=== PATIENT | female | born 1965 | race Caucasian/White ===

== ENCOUNTER 2016-12-21 06:35 | Emergency (ER) | payer BC ==
[~2016-12-21] VITALS: Ht 165.1 cm; Wt 88.5 kg
[~2016-12-21 06:35] MED LIST: LACTCHW3 PO; LVNIS100 SQ; SUMA50TA15 PO; TRAM-10 PO; WARF5TAB90 PO; ZFRODT/8 SL
[2016-12-21 06:39] VITALS: TEMP 36.4; Ht 165.1 cm; Wt 88.5 kg
[2016-12-21 06:56] VITALS: O2SAT 97
[2016-12-21] MEDS ORDERED: ONDANSETRON INJ 2 MG/ML 2 ML VIAL IV STA (07:12)
[2016-12-21] MEDS ORDERED: KETOROLAC TROMETHAMINE 30 MG/ML VIAL IV STA (07:12)
--- NOTE | 2016-12-21 07:21 | DIAGNOSTIC IMAGING REPORT ---
SINGLE VIEW CHEST CLINICAL HISTORY: Fever. Sepsis. FINDINGS: An AP, portable, upright chest radiograph is compared to study dated 08/13/2016. Correlation is made with chest CT dated 06/08/2016. The cardiomediastinal silhouette is unremarkable. Chronic interstitial thickening is similar to previous. No airspace consolidation or large pleural effusion is identified. No pneumothorax is seen. The skeletal structures are osteopenic. Degenerative change and mild scoliosis is identified in the thoracic spine. IMPRESSION: No acute cardiopulmonary abnormality. Electronically signed by: Zander Humphrey M.D. 12/21/2016 7:18 AM Dictated Date/Time: 12/21/2016 7:17 AM
[2016-12-21 07:27] LABS: HEMATOCRIT 34.3 % (37-47); MEAN CELL VOLUME 84.9 fL (80-100); MEAN CORPUSCULAR HEMOGLOBIN 28.5 pg (25-34); MEAN CORPUSCULAR HGB CONC 33.5 g/dl (32-36); MEAN PLATELET VOLUME 9.1 fL (7.4-10.4); PLATELET COUNT 306 K/uL (130-400); RED BLOOD COUNT 4.04 M/uL (4.2-5.4); WHITE BLOOD COUNT 7.93 K/uL (4.8-10.8)
[2016-12-21 07:39] LABS: PROTHROMBIN TIME (PATIENT) 10.7 SECONDS (9.0-12.0)
[2016-12-21] MEDS ORDERED: BISA5TAB PO (07:41)
[2016-12-21 07:48] VITALS: O2SAT 97
[2016-12-21 07:54] LABS: ALT/SGPT 20 U/L (12-78); AST/SGOT 10 U/L (15-37); BLOOD UREA NITROGEN 6 mg/dl (7-18); CALCIUM 8.6 mg/dl (8.5-10.1); CARBON DIOXIDE 24 mmol/L (21-32); CHLORIDE 114 mmol/L (98-107); CREATININE 0.87 mg/dl (0.60-1.20); GLUCOSE 89 mg/dl (70-99); POTASSIUM 3.7 mmol/L (3.5-5.1); SODIUM 146 mmol/L (136-145)
[2016-12-21 08:21] LABS: BASO % 0.4 %; BASO ABS # 0.03 K/uL (0-0.2); COMPLETE YES; EOS % 1.1 %; IG% 0.1 %; LYMPH % 27.9 %; LYMPH ABS # 2.21 K/uL (1.2-3.4); MONO % 8.2 %; NEUT % 62.3 %
[2016-12-21 08:33] LABS: ALKALINE PHOSPHATASE 141 U/L (45-117)
[2016-12-21 09:31] VITALS: PULSE 65
--- NOTE | 2016-12-21 10:03 | EMERGENCY ROOM VISIT NOTE ---
History Report prepared by Leon: Karissa Santana Under the Supervision of: Dr. Angel Craig D.O. First contact with patient: 06:51 Chief Complaint: CHEST PAIN Stated Complaint: PAIN IN LEFT ARM TO CHEST Nursing Triage Summary: pt here with left sided chest pain that radiates into l arm since last pm. pt concerned because she has a hx of pulmonary embolisms History of Present Illness The patient is a 51 year old female who presents to the Emergency Room with complaints of worsening chest pain starting yesterday. She rates her discomfort as a 10/10 in severity. The patient has a history of pulmonary embolisms and states that her symptoms are similar to her previous experiences. Yesterday morning she developed a dry cough. Later in the day she started getting pain in her chest that radiated into her left arm and into her neck by the end of the day. Later in the evening the pain had worsened to the point where she could not move her arm. In the middle of the night, she woke up with SOB. The pain has begun to radiate into her leg now. She reports nausea and left arm swelling. She denies any heavy lifting. Her blood thinner was stopped by her doctor last week. Source of History: patient Onset: yesterday Position: chest Symptom Intensity: 10/10 Quality: other (pain) Timing: worsening Associated Symptoms: + SOB, + nausea, + neck pain Note: Pt reports arm pain, arm swelling, leg pain. Review of Systems See HPI for pertinent positives & negatives. A total of 10 systems reviewed and were otherwise negative. Past Medical & Surgical Medical Problems: (1) Clostridium difficile colitis (2) Depression (3) Edema (4) GERD (gastroesophageal reflux disease) (5) History diabetes mellitus (6) History of DVT (deep vein thrombosis) (7) History of pulmonary embolism (8) MINI (iron deficiency anemia) (9) Migraine headache (10) Psoriatic arthritis (11) Pulmonary embolism (12) Syncope Surgical Problems: (1) H/O wisdom tooth extraction (2) History of carpal tunnel surgery (3) Status post appendectomy (4) Status post cholecystectomy (5) Status post gastric bypass for obesity (6) Status post total knee replacement Family History FHx: rheumatoid arthritis MOTHER GRANDMOTHER Social History Smoking Status: Never Smoker Alcohol Use: none Drug Use: none Marital Status: Housing Status: lives with family Current/Historical Medications Scheduled Amitriptyline Hcl (Elavil), 10 MG PO HS Apremilast (Otezla), 1 TAB PO BID Bisacodyl (Correctol), 2 TABS PO BID Ergocalciferol (Vitamin D), 50,000 INTER.UNIT PO 2XWK Escitalopram Oxalate (Escitalopram Oxalate), 20 MG PO DAILY Hyoscyamine Sulfate (Levsin), 0.125 MG PO TID Levothyroxine Sodium (Levothyroxine Sodium), 25 MCG PO DAILY Pantoprazole (Pantoprazole Sodium), 40 MG PO BID Topiramate (Topiramate), 75 MG PO BID Trazodone Hcl (Trazodone), 50 MG PO HS Warfarin Sodium (Coumadin), 2.5 MG PO M-W- Warfarin Sodium (Coumadin), 5 MG PO 4XWK Scheduled PRN Albuterol Hfa (Ventolin Hfa), 2-4 PUFFS INH Q6H PRN for Shortness of Breath Ondansetron (Ondansetron Odt), 8 MG SL Q8 PRN for Nausea Promethazine HCl (Promethazine HCl), 25 MG PO Q8 PRN for Nausea or Vomiting Sumatriptan Succinate (Imitrex), 50 MG PO UD PRN for Migraine Allergies Coded Allergies: Acetaminophen (Verified Allergy, Severe, HIVES, 12/21/16) Oxycodone (Verified Allergy, Severe, HIVES, 12/21/16) Vancomycin (Verified Adverse Reaction, Unknown, SEE TEXT. . ., 12/21/16) PT STARTED IV VANC TODAY FOR POSSIBLE OSTEOMYELITIS OF RIGHT FOOT. ALSO ON TIMENTIN 3.1G IV Q6H FROM 03/24/08. PHARM'KINETIC VANC CONSULT PATIENT ORDERED VANC 3G IV Q18H IN 560ML TOTAL VOLUME NSS (~5.3MG/ML). AFTER RECEIVING 136ML PT DEVELOPED BODY ITCHING (NO RASH/REDNESS). KAY TEJADA RN CONTACTED DR BANEGAS AND INSTRUCTED TO D/C VANC AND GIVE BENADRYL 50MG PO X1. 03/27/08 @ 1000: SPOKE WITH DR RUIZ: FEELS THIS IS AN INFUSION RELATED RXN BUT CLINICALLY PT IS DOING WORSE AND IS D/C TIMENTIN/VANC AND STARTING TYGACIL. IS THIS AN INFUSION RELATED RXN OR TRUE ALLERGY? I PUT CALL INTO DR BANEGAS TO FURTHER DISCUSS. NO CALL BACK OF TIME OF DOCUMENTATION. AJ Physical Exam Vital Signs Date Time Temp Pulse Resp B/P Pulse Ox O2 Delivery O2 Flow Rate FiO2 12/21/16 10:30 133/82 12/21/16 09:31 65 18 115/80 12/21/16 07:48 72 18 134/86 97 Room Air 12/21/16 06:56 74 12/21/16 06:56 97 Room Air 12/21/16 06:39 36.4 81 16 138/88 97 Room Air Physical Exam CONSTITUTIONAL/VITAL SIGNS: Reviewed / noted above. GENERAL: Non-toxic in appearance. INTEGUMENTARY: Warm, dry, and [place]. HEAD: Normocephalic. EYES: without scleral icterus or trauma. ENT/OROPHARYNX: clear and moist. LYMPHADENOPATHY/NECK: Is supple without lymphadenopathy or meningismus. RESPIRATORY: Lungs clear and equal. CARDIOVASCULAR: Regular rate and rhythm. GI/ABDOMEN: Soft and nontender. No organomegaly or pulsatile mass. No rebound or guarding. Normal bowel sounds. EXTREMITIES: Warm and well perfused. BACK: No CVA tenderness. NEUROLOGICAL: Intact without focal deficits. PSYCHIATRIC: normal affect. MUSCULOSKELETAL: Normally developed with good muscle tone. Medical Decision & Procedures ER Provider Diagnostic Interpretation: X ray results and stated below per my interpretation and radiology interpretation. SINGLE VIEW CHEST CLINICAL HISTORY: Fever. Sepsis. FINDINGS: An AP, portable, upright chest radiograph is compared to study dated 08/13/2016. Correlation is made with chest CT dated 06/08/2016. The cardiomediastinal silhouette is unremarkable. Chronic interstitial thickening is similar to previous. No airspace consolidation or large pleural effusion is identified. No pneumothorax is seen. The skeletal structures are osteopenic. Degenerative change and mild scoliosis is identified in the thoracic spine. IMPRESSION: No acute cardiopulmonary abnormality. Electronically signed by: Zander Humphrey M.D. 12/21/2016 7:18 AM Dictated Date/Time: 12/21/2016 7:17 AM Laboratory Results 12/21/16 06:50 Red Blood Count 4.04, Mean Corpuscular Volume 84.9, Mean Corpuscular Hemoglobin 28.5, Mean Corpuscular Hemoglobin Concent 33.5, Mean Platelet Volume 9.1, Neutrophils (%) (Auto) 62.3, Lymphocytes (%) (Auto) 27.9, Monocytes (%) (Auto) 8.2, Eosinophils (%) (Auto) 1.1, Basophils (%) (Auto) 0.4, Neutrophils # (Auto) 4.94, Lymphocytes # (Auto) 2.21, Monocytes # (Auto) 0.65, Eosinophils # (Auto) 0.09, Basophils # (Auto) 0.03 12/21/16 06:50 Test 12/21/16 06:50 White Blood Count 7.93 K/uL (4.8-10.8) Red Blood Count 4.04 M/uL (4.2-5.4) Hemoglobin 11.5 g/dL (12.0-16.0) Hematocrit 34.3 % (37-47) Mean Corpuscular Volume 84.9 fL (80-100) Mean Corpuscular Hemoglobin 28.5 pg (25-34) Mean Corpuscular Hemoglobin Concent 33.5 g/dl (32-36) Platelet Count 306 K/uL (130-400) Mean Platelet Volume 9.1 fL (7.4-10.4) Neutrophils (%) (Auto) 62.3 % Lymphocytes (%) (Auto) 27.9 % Monocytes (%) (Auto) 8.2 % Eosinophils (%) (Auto) 1.1 % Basophils (%) (Auto) 0.4 % Neutrophils # (Auto) 4.94 K/uL (1.4-6.5) Lymphocytes # (Auto) 2.21 K/uL (1.2-3.4) Monocytes # (Auto) 0.65 K/uL (0.11-0.59) Eosinophils # (Auto) 0.09 K/uL (0-0.5) Basophils # (Auto) 0.03 K/uL (0-0.2) RDW Standard Deviation 47.9 fL (36.4-46.3) RDW Coefficient of Variation 15.4 % (11.5-14.5) Immature Granulocyte % (Auto) 0.1 % Immature Granulocyte # (Auto) 0.01 K/uL (0.00-0.02) Red Blood Cell Morphology Unremarkable Prothrombin Time 10.7 SECONDS (9.0-12.0) Prothromb Time International Ratio 1.0 (0.9-1.1) Activated Partial Thromboplast Time 26.1 SECONDS (21.0-31.0) Partial Thromboplastin Ratio 1.0 D-Dimer 330 ug/L FEU (0-500) Anion Gap 8.0 mmol/L (3-11) Est Creatinine Clear Calc Drug Dose 82.2 ml/min Estimated GFR () 88.2 Estimated GFR (Non- 76.1 BUN/Creatinine Ratio 7.0 (10-20) Calcium Level 8.6 mg/dl (8.5-10.1) Total Bilirubin 0.4 mg/dl (0.2-1) Direct Bilirubin < 0.1 mg/dl (0-0.2) Aspartate Amino Transf (AST/SGOT) 10 U/L (15-37) Alanine Aminotransferase (ALT/SGPT) 20 U/L (12-78) Alkaline Phosphatase 141 U/L (45-117) Total Creatine Kinase 61 U/L (26-192) Creatine Kinase MB 0.6 ng/ml (0.5-3.6) Creatine Kinase MB Ratio 1.0 (0-3.0) Troponin I < 0.015 ng/ml (0-0.045) Total Protein 6.6 gm/dl (6.4-8.2) Albumin 3.5 gm/dl (3.4-5.0) Lipase 69 U/L (73-393) Laboratory results as stated above per my review. Medications Administered Medications (Trade) Dose Ordered Sig/Monalisa Route Start Time Stop Time Status Last Admin Dose Admin Ketorolac Tromethamine (Toradol Inj) 30 mg NOW STAT IV 12/21/16 07:12 12/21/16 07:13 DC 12/21/16 07:43 30 MG Ondansetron HCl (Zofran Inj) 4 mg NOW STAT IV 12/21/16 07:12 12/21/16 07:13 DC 12/21/16 07:38 4 MG ECG Indication: chest pain Rate (beats per minute): 65 Rhythm: normal sinus Findings: no ectopy, other (no acute injury) ED Course 07: Previous medical records were reviewed. The patient was evaluated in room B9. A complete history and physical examination was performed. 0712: Toradol Inj 30 mg IV, Zofran Inj 4 mg IV. 1005: On reevaluation, the patient is resting comfortably. I discussed the results and findings with the patient. She verbalized agreement of the treatment plan. She was discharged home. Medical Decision the differential was considered includes acute myocardial infarction, acute coronary syndrome, myocarditis, pericarditis, pericardial effusions /tamponad, esophageal perforation, thoracic aortic dissection, pulmonary embolism, pneumonia, pneumothorax, pancreatitis, shingles, acute cholecystitis, perforated abdominal viscus. This is a 51-year-old female who presents to the ED with a chief complaint of chest pain and left arm pain. The patient's symptoms started yesterday around noon. She developed left-sided chest pain. She states that her symptoms seem to worsen overnight. This morning she also felt like her left arm was hurting and then her left leg. The patient's vital signs here are normal. Her physical exam did not show any abnormalities. There is no asymmetry of the extremities. She has good distal pulses. Her lungs are clear. She is in no distress. Twelve-lead EKG shows a normal sinus rhythm at a rate of 65 without acute injury or ectopy. CBC is normal. D-dimer is negative. Metabolic panel was unremarkable. Lipase is negative. Troponin is negative. The patient was told results the test. The patient is felt to be stable for discharge and outpatient follow-up. Impression Primary Impression: Substernal precordial chest pain Additional Impressions: Left arm pain Left leg pain Scribe Attestation The scribe's documentation has been prepared under my direction and personally reviewed by me in its entirety. I confirm that the note above accurately reflects all work, treatment, procedures, and medical decision making performed by me. Departure Information Dispostion Home / Self-Care Referrals Shell Pinon M.D. (PCP) Patient Instructions My [facility] Additional Instructions Your testing today did not reveal a serious cause for your symptoms. Follow-up with your doctor for further care and evaluation in 1-2 days. Return to the emergency department for worsening or new symptoms or any concerns. You have been examined and treated today on an emergency basis only. This is not a substitute for, or an effort to provide, complete comprehensive medical care. It is impossible to recognize and treat all injuries or illnesses in a single emergency department visit. It is therefore important that you follow up closely with your doctor. Call as soon as possible for an appointment. Problem Qualifiers
[2016-12-21 10:30] VITALS: BP 133/82
[2017-01-04] MEDS ORDERED: VTMD PO (21:36)
[2017-01-04] MEDS ORDERED: ONDA4TAB46 PO (21:37)
[2017-02-21] MEDS ORDERED: VNTHFA/IN INH (13:51)
[2017-04-29] MEDS ORDERED: APRE1TAB3 PO (07:41)
[2017-04-29] MEDS ORDERED: AMIT10TA6 PO ×2 (16:46→19:32)
[2017-04-29] MEDS ORDERED: PANT40TA2 PO (17:34)
[2017-04-29] MEDS ORDERED: ERGO500011 PO (19:19)
[2017-05-04] MEDS ORDERED: TPM100 PO (15:06)
[2017-05-04] MEDS ORDERED: PRED10TA PO (15:06)
[2017-05-17] MEDS ORDERED: AMIT10TA6 PO (12:05)
[2017-05-17] MEDS ORDERED: NCY50 PO (12:05)
[2017-05-17] MEDS ORDERED: CYM30 PO (12:05)
[2017-05-17] MEDS ORDERED: ONDA8TAB62 SL (12:05)
[2017-05-24] MEDS ORDERED: MAGN400T7 PO (14:42)
== END 2016-12-21 10:40 | disposition home or self-care (01) ==
LOC: C.EDB 06:36
DX: R07.2 Precordial pain (principal); M79.602 Pain in left arm; M79.605 Pain in left leg; R05 Cough; R06.02 Shortness of breath; R11.0 Nausea; M54.2 Cervicalgia; M79.89 Other specified soft tissue disorders; L40.50 Arthropathic psoriasis, unspecified; F32.9 Major depressive disorder, single episode, unspecified; K21.9 Gastro-esophageal reflux disease without esophagitis; E11.9 Type 2 diabetes mellitus without complications; Z79.01 Long term (current) use of anticoagulants; Z79.899 Other long term (current) drug therapy; Z86.711 Personal history of pulmonary embolism; Z86.718 Personal history of other venous thrombosis and embolism; Z86.19 Personal history of other infectious and parasitic diseases; Z82.61 Family history of arthritis

== ENCOUNTER 2017-01-29 12:22 | Emergency (ER) | payer BC ==
[~2017-01-29] VITALS: Ht 165.1 cm; Wt 86.5 kg
[~2017-01-29 12:22] MED LIST changes: -LACTCHW3 PO; -LVNIS100 SQ; +ONDA4TAB46 PO; -SUMA50TA15 PO; -TRAM-10 PO; +VTMD PO; -WARF5TAB90 PO; -ZFRODT/8 SL
[2017-01-29 12:30] VITALS: TEMP 36.8; Ht 165.1 cm; Wt 86.5 kg
[2017-01-29] MEDS ORDERED: ERGO500037 PO (13:16)
[2017-01-29] MEDS ORDERED: MoRPHine SULFATE 10 MG/ML CARP/VIAL IV STA (13:26)
[2017-01-29] MEDS ORDERED: PROMETHAZINE HCL INJ 25 MG/ML 1 ML VIAL IV STA (13:26)
[2017-01-29] MEDS ORDERED: KETOROLAC TROMETHAMINE 30 MG/ML VIAL IV STA (13:26)
[2017-01-29] MEDS ORDERED: SODIUM CHLORIDE 0.9% 1000ML 1,000 ML IV STA (13:26)
[2017-01-29 13:56] LABS: HEMATOCRIT 34.2 % (37-47); MEAN CELL VOLUME 86.1 fL (80-100); MEAN CORPUSCULAR HEMOGLOBIN 28.2 pg (25-34); MEAN CORPUSCULAR HGB CONC 32.7 g/dl (32-36); MEAN PLATELET VOLUME 9.1 fL (7.4-10.4); PLATELET COUNT 287 K/uL (130-400); RED BLOOD COUNT 3.97 M/uL (4.2-5.4); WHITE BLOOD COUNT 8.12 K/uL (4.8-10.8)
[2017-01-29] MEDS ORDERED: PROMETHAZINE HCL INJ 25 MG in SODIUM CHLORIDE 0.9% 50ML 50 ML IV ONE (14:00)
[2017-01-29 14:17] LABS: BUN/CREATININE RATIO 10.3 (10-20); CREATININE 0.74 mg/dl (0.60-1.20); POTASSIUM 3.1 mmol/L (3.5-5.1)
[2017-01-29 14:18] LABS: BASO % 0.4 %; BASO ABS # 0.03 K/uL (0-0.2); COMPLETE YES; EOS % 1.1 %; IG% 0.1 %; LYMPH % 19.3 %; LYMPH ABS # 1.57 K/uL (1.2-3.4); MONO % 7.9 %; NEUT % 71.2 %
[2017-01-29 14:27] LABS: THYROID STIMULATING HORMONE 0.871 uIu/ml (0.300-4.500)
[2017-01-29] MEDS ORDERED: POTASSIUM CHLORIDE 10 MEQ TABCR PO STA (14:28)
[2017-01-29] MEDS ORDERED: HYDROmorphone INJ 1 MG/ML SYR IV STA (14:30)
[2017-01-29 14:44] LABS: CALCIUM 8.2 mg/dl (8.5-10.1)
[2017-01-29] MEDS ORDERED: OPTIRAY 320 IV PRN (14:45)
--- NOTE | 2017-01-29 15:05 | DIAGNOSTIC IMAGING REPORT ---
CT SOFT TISSUE NECK COMBO CT DOSE: 929.83 mGy.cm CLINICAL HISTORY: Lump superior to medial clavicle on right. TECHNIQUE: Axial images of the neck were obtained before and after intravenous administration of Optiray 320 IV. COMPARISON STUDY: Neck CT October 08, 2015. FINDINGS: A marker was placed on the skin at site of palpable abnormality, superior to the right sternoclavicular joint. No corresponding mass is identified. There is no fluid collection. No enlarged cervical lymph nodes are noted. Major vasculature of the neck is patent. The parotid, submandibular and thyroid glands are within normal limits by CT. No mucosal lesion is identified although these may be occult by CT. The epiglottis is normal. Skeletal structures are unremarkable. Visualized portions of the brain are within normal limits. IMPRESSION: 1. No cervical mass or lymphadenopathy. The palpable marker overlies the superior aspect of the right sternoclavicular joint which appears similar to prior imaging studies. 2. No acute process within the neck by CT. Electronically signed by: Yang Hansen M.D. 01/29/2017 3:03 PM Dictated Date/Time: 01/29/2017 2:57 PM
--- NOTE | 2017-01-29 15:41 | EMERGENCY ROOM VISIT NOTE ---
History First contact with patient: 13:16 Chief Complaint: NECK PAIN Stated Complaint: NECK/THROAT/SHOULDER PAIN, DIZZY, HARRIS, V,N History of Present Illness The patient is a 51 year old female who presents to the Emergency Room with complaints of a painful lump on the anterior aspect of her neck. The patient states that she noticed it 4-5 days ago and it is getting larger and more painful. The patient denies any associated redness or any injury to the area. The patient states yesterday she also had a sore throat mainly on the right side of her throat. Then later in the evening she started getting pain on the entire right side of her neck into her right shoulder. This then triggered a migraine headache which she describes as being all over her head which is typical for her migraines. She states she gets pain behind both her eyes but denies any visual changes and admits to mild dizziness. The patient states that she took an Imitrex tablet last night and this morning without any relief of her headache. The patient states this is not the worst headache of her life. The patient states that she was at work today and started feeling nauseated and had increased pain in her neck and therefore came to the emergency room. The patient does admit to a history of hypothyroidism but has never had thyroid surgery. She also states that she is being treated currently for low iron. She is receiving IV iron treatments. Review of Systems 10 system review was performed and was negative unless stated otherwise history of present illness. Past Medical/Surgical History Medical Problems: (1) Clostridium difficile colitis (2) Depression (3) Edema (4) GERD (gastroesophageal reflux disease) (5) History diabetes mellitus (6) History of DVT (deep vein thrombosis) (7) History of pulmonary embolism (8) MINI (iron deficiency anemia) (9) Migraine headache (10) Psoriatic arthritis (11) Pulmonary embolism (12) Syncope Surgical Problems: (1) H/O wisdom tooth extraction (2) History of carpal tunnel surgery (3) Status post appendectomy (4) Status post cholecystectomy (5) Status post gastric bypass for obesity (6) Status post total knee replacement Family History FHx: rheumatoid arthritis MOTHER GRANDMOTHER Social History Smoking Status: Never Smoker Alcohol Use: none Drug Use: none Marital Status: Housing Status: lives with family Current/Historical Medications Scheduled Amitriptyline Hcl (Elavil), 10 MG PO HS Apremilast (Otezla), 30 MG PO BID Ergocalciferol (Vitamin D 97106 Unit), 50,000 UNIT PO 2XWK Escitalopram Oxalate (Escitalopram Oxalate), 20 MG PO DAILY Hyoscyamine Sulfate (Levsin), 0.125 MG PO TID Levothyroxine Sodium (Levothyroxine Sodium), 25 MCG PO DAILY Pantoprazole (Pantoprazole Sodium), 40 MG PO BID Topiramate (Topiramate), 75 MG PO BID Trazodone Hcl (Trazodone), 50-100 MG PO HS Scheduled PRN Albuterol Hfa (Ventolin Hfa), 2-4 PUFFS INH Q6H PRN for Shortness of Breath Ondansetron Hcl (Zofran), 4 MG PO TID PRN for Nausea Ondansetron Odt (Zofran Odt), 8 MG SL Q8 PRN for Nausea Promethazine HCl (Promethazine HCl), 25 MG PO Q8 PRN for Nausea or Vomiting Sumatriptan Succinate (Sumatriptan Succinate), 50 MG PO UD PRN for Migraine Allergies Coded Allergies: Acetaminophen (Verified Allergy, Severe, HIVES, 01/29/17) Oxycodone (Verified Allergy, Severe, HIVES, 01/29/17) Vancomycin (Verified Adverse Reaction, Unknown, SEE TEXT. . ., 01/29/17) PT STARTED IV VANC TODAY FOR POSSIBLE OSTEOMYELITIS OF RIGHT FOOT. ALSO ON TIMENTIN 3.1G IV Q6H FROM 03/24/08. PHARM'KINETIC VANC CONSULT PATIENT ORDERED VANC 3G IV Q18H IN 560ML TOTAL VOLUME NSS (~5.3MG/ML). AFTER RECEIVING 136ML PT DEVELOPED BODY ITCHING (NO RASH/REDNESS). KAY TEJADARN CONTACTED DR BANEGAS AND INSTRUCTED TO D/C VANC AND GIVE BENADRYL 50MG PO X1. 03/27/08 @ 1000: SPOKE WITH DR RUIZ: FEELS THIS IS AN INFUSION RELATED RXN BUT CLINICALLY PT IS DOING WORSE AND IS D/C TIMENTIN/VANC AND STARTING TYGACIL. IS THIS AN INFUSION RELATED RXN OR TRUE ALLERGY? I PUT CALL INTO DR BANEGAS TO FURTHER DISCUSS. NO CALL BACK OF TIME OF DOCUMENTATION. AJ Physical Exam Vital Signs Date Time Temp Pulse Resp B/P Pulse Ox O2 Delivery O2 Flow Rate FiO2 01/29/17 14:57 78 18 117/72 92 Room Air 01/29/17 13:55 72 18 130/82 96 Room Air 01/29/17 12:30 36.8 80 20 124/79 96 Room Air Physical Exam GENERAL: 51-year-old white female appears in no acute distress. MENTAL Status: Patient is alert and oriented 3. The patient appears very anxious. EYES: PERRLA. EOMs intact. EARS: Canals clear. TMs without fluid level noted. PHARYNX: Mild erythema noted, no edema noted. Airway is adequate. No exudate noted. NECK: Thyroid without enlargement or nodularity. There is a palpable firm lump just superior to the medial aspect of the clavicle which is tender to palpation. No other lymphadenopathy is noted. LUNGS: Clear auscultation without wheezes rales or rhonchi. CARDIAC: Regular rate and rhythm without murmur. Pulses is full and equal throughout. ABDOMEN: Positive bowel sounds all 4 quadrants. Soft, nontender to palpation without organomegaly or masses. NEURO:Cranial nerves two through 12 intact. Cerebellar function intact with [id number]. Fine motor intact with alternating finger motions. Medical Decision & Procedures ER Provider Diagnostic Interpretation: CT SOFT TISSUE NECK COMBO CT DOSE: 929.83 mGy.cm CLINICAL HISTORY: Lump superior to medial clavicle on right. TECHNIQUE: Axial images of the neck were obtained before and after intravenous administration of Optiray 320 IV. COMPARISON STUDY: Neck CT October 08, 2015. FINDINGS: A marker was placed on the skin at site of palpable abnormality, superior to the right sternoclavicular joint. No corresponding mass is identified. There is no fluid collection. No enlarged cervical lymph nodes are noted. Major vasculature of the neck is patent. The parotid, submandibular and thyroid glands are within normal limits by CT. No mucosal lesion is identified although these may be occult by CT. The epiglottis is normal. Skeletal structures are unremarkable. Visualized portions of the brain are within normal limits. IMPRESSION: 1. No cervical mass or lymphadenopathy. The palpable marker overlies the superior aspect of the right sternoclavicular joint which appears similar to prior imaging studies. Laboratory Results 01/29/17 13:40 Red Blood Count 3.97, Mean Corpuscular Volume 86.1, Mean Corpuscular Hemoglobin 28.2, Mean Corpuscular Hemoglobin Concent 32.7, Mean Platelet Volume 9.1, Neutrophils (%) (Auto) 71.2, Lymphocytes (%) (Auto) 19.3, Monocytes (%) (Auto) 7.9, Eosinophils (%) (Auto) 1.1, Basophils (%) (Auto) 0.4, Neutrophils # (Auto) 5.78, Lymphocytes # (Auto) 1.57, Monocytes # (Auto) 0.64, Eosinophils # (Auto) 0.09, Basophils # (Auto) 0.03 01/29/17 13:40 Test 01/29/17 13:40 White Blood Count 8.12 K/uL (4.8-10.8) Red Blood Count 3.97 M/uL (4.2-5.4) Hemoglobin 11.2 g/dL (12.0-16.0) Hematocrit 34.2 % (37-47) Mean Corpuscular Volume 86.1 fL (80-100) Mean Corpuscular Hemoglobin 28.2 pg (25-34) Mean Corpuscular Hemoglobin Concent 32.7 g/dl (32-36) Platelet Count 287 K/uL (130-400) Mean Platelet Volume 9.1 fL (7.4-10.4) Neutrophils (%) (Auto) 71.2 % Lymphocytes (%) (Auto) 19.3 % Monocytes (%) (Auto) 7.9 % Eosinophils (%) (Auto) 1.1 % Basophils (%) (Auto) 0.4 % Neutrophils # (Auto) 5.78 K/uL (1.4-6.5) Lymphocytes # (Auto) 1.57 K/uL (1.2-3.4) Monocytes # (Auto) 0.64 K/uL (0.11-0.59) Eosinophils # (Auto) 0.09 K/uL (0-0.5) Basophils # (Auto) 0.03 K/uL (0-0.2) RDW Standard Deviation 48.9 fL (36.4-46.3) RDW Coefficient of Variation 15.4 % (11.5-14.5) Immature Granulocyte % (Auto) 0.1 % Immature Granulocyte # (Auto) 0.01 K/uL (0.00-0.02) Anion Gap 10.0 mmol/L (3-11) Est Creatinine Clear Calc Drug Dose 95.5 ml/min Estimated GFR () 107.2 Estimated GFR (Non- 92.5 BUN/Creatinine Ratio 10.3 (10-20) Calcium Level 8.2 mg/dl (8.5-10.1) Thyroid Stimulating Hormone (TSH) 0.871 uIu/ml (0.300-4.500) Medications Administered Medications (Trade) Dose Ordered Sig/Monalisa Route Start Time Stop Time Status Last Admin Dose Admin Sodium Chloride (Nss 1000ml) 1,000 ml @ 999 mls/hr Q1H1M STAT IV 01/29/17 13:26 01/29/17 14:26 DC 01/29/17 13:41 999 MLS/HR Morphine Sulfate (MoRPHine SULFATE INJ) 6 mg NOW STAT IV 01/29/17 13:26 01/29/17 13:30 DC 01/29/17 13:26 6 MG Ketorolac Tromethamine 30 mg 30 mg NOW STAT IV 01/29/17 13:26 01/29/17 13:30 DC 01/29/17 13:40 30 MG Promethazine HCl/ Sodium Chloride (Phenergan Inj/ Nss 50ml) 51 ml @ 204 mls/hr NOW ONCE IV 01/29/17 14:00 01/29/17 14:14 DC 01/29/17 13:55 204 MLS/HR Potassium Chloride (Klor-Con M10) 10 meq NOW STAT PO 01/29/17 14:28 01/29/17 14:29 DC 01/29/17 14:58 10 MEQ Hydromorphone HCl (Dilaudid Inj) 1 mg NOW STAT IV 01/29/17 14:30 01/29/17 14:31 DC 01/29/17 15:00 1 MG ED Course The patient was evaluated. The patient's EMR and medication list were reviewed. IV access was obtained. The patient was given morphine 6 mg IV and Phenergan 25 mg IV for her headache and nausea. CBC and differential, renal profile was ordered. Coags were ordered. TSH was ordered. Rapid strep was. CAT scan of the neck was ordered and evaluated by the radiologist as above without any acute findings. The patient was informed of the CT findings. Labs are reviewed. The patient's white count was normal. The patient's potassium, he hemoglobin and hematocrit were slightly low. The patient was given 10 mEq of KDur. The patient was reevaluated and stated her headache was not any better therefore she was given Dilaudid 1 mg IV. The patient was reevaluated and was feeling better. The patient was discharged home in stable condition with a friend driving. Medical Decision Neck differential include osteosarcoma, enlarged lymph nodes, soft tissue mass, thyroid mass, muscular strain, arthritic pain The patient had her typical migraine headache symptoms therefore no additional imaging was performed for her headache. Impression Primary Impression: Migraine headache Additional Impressions: Lump in neck Anemia Hypokalemia Departure Information Dispostion Home / Self-Care Condition GOOD Referrals Shell Pinon M.D. (PCP) Forms HOME CARE DOCUMENTATION FORM, IMPORTANT VISIT INFORMATION, WORK / SCHOOL INSTRUCTIONS Patient Instructions Anemia, ED Headache Migraine, My [facility] Additional Instructions Recommend eating a banana daily for your low potassium. Continue current migraine medicine as prescribed. Follow-up with your family doctor in 2 days for recheck. If symptoms worsen in the interim, return to ER. Problem Qualifiers Primary Impression: Migraine headache Migraine type: unspecified Intractability: not intractable Additional Impressions: Anemia Anemia type: iron deficiency Iron deficiency anemia type: unspecified iron deficiency Qualified Codes: D50.9 - Iron deficiency anemia, unspecified
[2017-01-29 15:51] VITALS: BP 121/80; PULSE 79; O2SAT 95
[2017-02-21] MEDS ORDERED: VNTHFA/IN INH (13:51)
[2017-04-29] MEDS ORDERED: APRE1TAB3 PO (07:41)
[2017-04-29] MEDS ORDERED: AMIT10TA6 PO ×2 (16:46→19:32)
[2017-04-29] MEDS ORDERED: PANT40TA2 PO (17:34)
[2017-04-29] MEDS ORDERED: ERGO500011 PO (19:19)
[2017-05-04] MEDS ORDERED: TPM100 PO (15:06)
[2017-05-04] MEDS ORDERED: PRED10TA PO (15:06)
[2017-05-17] MEDS ORDERED: NCY50 PO (12:05)
[2017-05-17] MEDS ORDERED: ONDA8TAB62 SL (12:05)
[2017-05-17] MEDS ORDERED: AMIT10TA6 PO (12:05)
[2017-05-17] MEDS ORDERED: CYM30 PO (12:05)
[2017-05-24] MEDS ORDERED: MAGN400T7 PO (14:42)
== END 2017-01-29 15:55 | disposition home or self-care (01) ==
LOC: C.EDB 12:27 → C.EDC 15:55
DX: G43.909 Migraine, unspecified, not intractable, without status migrainosus (principal); R22.1 Localized swelling, mass and lump, neck; D50.9 Iron deficiency anemia, unspecified; E87.6 Hypokalemia; F33.41 Major depressive disorder, recurrent, in partial remission; K21.9 Gastro-esophageal reflux disease without esophagitis; E11.9 Type 2 diabetes mellitus without complications; Z86.711 Personal history of pulmonary embolism; L40.50 Arthropathic psoriasis, unspecified

== ENCOUNTER 2017-02-21 16:55 | Emergency (ER) | payer BC ==
[~2017-02-21] VITALS: Ht 165.1 cm; Wt 85.7 kg
[~2017-02-21 16:55] MED LIST changes: +ERGO500037 PO; +VNTHFA/IN INH; -VTMD PO
[2017-02-21 17:04] VITALS: TEMP 36.7; Ht 165.1 cm; Wt 85.7 kg
[2017-02-21] MEDS ORDERED: PROMETHAZINE HCL INJ 25 MG in SODIUM CHLORIDE 0.9% 50ML 50 ML IV STA (18:32)
[2017-02-21] MEDS ORDERED: DiphenhydrAMINE HCL 50 MG/ML VIAL IV STA (18:32)
[2017-02-21] MEDS ORDERED: SODIUM CHLORIDE 0.9% 1000ML 1,000 ML IV STA (18:32)
[2017-02-21] MEDS ORDERED: OPTIRAY 320 IV PRN (18:45)
[2017-02-21 19:02] LABS: BASO % 0.3 %; BASO ABS # 0.02 K/uL (0-0.2); COMPLETE YES; EOS % 1.3 %; HEMATOCRIT 37.9 % (37-47); IG% 0.1 %; LYMPH % 35.2 %; LYMPH ABS # 2.52 K/uL (1.2-3.4); MEAN CELL VOLUME 88.1 fL (80-100); MEAN CORPUSCULAR HEMOGLOBIN 29.3 pg (25-34); MEAN CORPUSCULAR HGB CONC 33.2 g/dl (32-36); MEAN PLATELET VOLUME 8.9 fL (7.4-10.4); NEUT % 55.1 %; PLATELET COUNT 283 K/uL (130-400); WHITE BLOOD COUNT 7.16 K/uL (4.8-10.8)
[2017-02-21 19:09] LABS: URINE APPEARANCE CLEAR (CLEAR); URINE BILIRUBIN NEG (NEG); URINE COLOR YELLOW; URINE EPITHELIAL CELL AUTO >30 /lpf (0-5); URINE NITRITE NEG (NEG); URINE SPECIFIC GRAVITY 1.018 (1.000-1.030); UROBILINOGEN NEG (NEG); ZZUR CULT IF INDIC CLEAN CATCH YES
[2017-02-21 19:13] LABS: MANUAL MICROSCOPIC REQUIRED? NO; REVIEW REQ? NO
[2017-02-21] MEDS ORDERED: ONDA4TAB9 PO (19:19)
[2017-02-21 19:26] LABS: ALT/SGPT 19 U/L (12-78); AST/SGOT 10 U/L (15-37); BLOOD UREA NITROGEN 8 mg/dl (7-18); BUN/CREATININE RATIO 9.8 (10-20); CALCIUM 8.4 mg/dl (8.5-10.1); CARBON DIOXIDE 23 mmol/L (21-32); CHLORIDE 114 mmol/L (98-107); CREATININE 0.83 mg/dl (0.60-1.20); GLUCOSE 95 mg/dl (70-99); MAGNESIUM 2.3 mg/dl (1.8-2.4); POTASSIUM 3.9 mmol/L (3.5-5.1); SODIUM 145 mmol/L (136-145)
[2017-02-21 19:29] LABS: ALKALINE PHOSPHATASE 147 U/L (45-117); CKMB/CK RATIO 2.1 (0-3.0); PHOSPHORUS 2.8 mg/dl (2.5-4.9)
--- NOTE | 2017-02-21 20:38 | DIAGNOSTIC IMAGING REPORT ---
CHEST CTA for PULMONARY ARTERIES CT DOSE: 1065.51 mGy.cm HISTORY: Chest pain dyspnea TECHNIQUE: Multiaxial CT images of the chest were performed following the intravenous administration of contrast to evaluate the pulmonary arteries. Maximal intensity projection images were also obtained. COMPARISON STUDY: None. FINDINGS: There is a normal caliber thoracic aorta with no evidence for dissection. There is no evidence for pulmonary embolus. No pleural effusions. No pneumothorax. The liver and spleen are unremarkable. No mediastinal or hilar lymphadenopathy. The central airways are patent. The lungs are clear. IMPRESSION: No evidence for pulmonary embolus. Lungs are clear. Negative thoracic aorta Electronically signed by: Collins Armando M.D. 02/21/2017 8:37 PM Dictated Date/Time: 02/21/2017 8:35 PM
--- NOTE | 2017-02-21 20:44 | DIAGNOSTIC IMAGING REPORT ---
ABDOMEN AND PELVIS CT WITH IV CONTRAST CT DOSE: HISTORY: Pain RLQ pain, diarrhea x 5 wks, failed outpatient findings TECHNIQUE: Multiaxial CT images of the abdomen and pelvis were performed following the use of intravenous contrast. COMPARISON STUDY: 01/04/2017 FINDINGS: Minimal bibasilar dependent atelectatic change. Liver is uniform. Spleen is unremarkable. Prior gastric bypass type procedure. Mild fatty replacement of the pancreas. Kidneys negative for hydronephrosis. Bowel pattern is considered nonobstructive. No evidence for an obstructive pattern. Bladder is midline. No free fluid within the pelvic cul-de-sac. IMPRESSION: 1. Stable postoperative changes as described. 2. No acute process of the abdomen or pelvis Electronically signed by: Collins Armando M.D. 02/21/2017 8:43 PM Dictated Date/Time: 02/21/2017 8:42 PM
[2017-02-21] MEDS ORDERED: CEPH500C2 PO (20:59)
--- NOTE | 2017-02-21 21:00 | EMERGENCY ROOM VISIT NOTE ---
History Report prepared by Leon: Karissa Santana Under the Supervision of: Dr. Sadiq Tang M.D. First contact with patient: 18:20 Chief Complaint: ILLNESS Stated Complaint: TROUBLE BREATHING History of Present Illness The patient is a 51 year old female who presents to the Emergency Room with complaints of persistent diarrhea starting 5 weeks ago. She went to her PCP 5 days ago because she thought her diverticulitis might be flaring up. She had blood work which found that her chloride was high and her lipase was low. Her X- ray revealed no blockage. Her stool was checked for E coli and C diff. She was sent to the ED because her diarrhea persists and her labs were abnormal. She notes that she has lost 30 lbs. She has been having 6-7 episodes of diarrhea per day. She reports nausea. She has been unable to eat for the past 3 days. Last night she noticed that she had SOB when she was walking which is unusual for her. Today, she began coughing and had SOB on exertion. Those symptoms are similar to her previous blood clot. Yesterday, she was just sitting when she began to feel disoriented. She also reports abdominal pain, back pain, dysuria, and arm heaviness today. She stopped her blood thinner 3 months ago. Source of History: patient Onset: 5 weeks ago Position: other (global) Quality: other (diarrhea) Timing: other (persistent) Associated Symptoms: + cough, + SOB, + nausea, + abdominal pain, + back pain , + urinary symptoms Note: Pt reports arm heaviness. Review of Systems See HPI for pertinent positives & negatives. A total of 10 systems reviewed and were otherwise negative. Past Medical & Surgical Medical Problems: (1) Clostridium difficile colitis (2) Depression (3) Edema (4) GERD (gastroesophageal reflux disease) (5) History diabetes mellitus (6) History of DVT (deep vein thrombosis) (7) History of pulmonary embolism (8) MINI (iron deficiency anemia) (9) Migraine headache (10) Psoriatic arthritis (11) Pulmonary embolism (12) Syncope Surgical Problems: (1) H/O wisdom tooth extraction (2) History of carpal tunnel surgery (3) Status post appendectomy (4) Status post cholecystectomy (5) Status post gastric bypass for obesity (6) Status post total knee replacement Family History FHx: rheumatoid arthritis MOTHER GRANDMOTHER Social History Smoking Status: Never Smoker Alcohol Use: none Drug Use: none Marital Status: Housing Status: lives with family Current/Historical Medications Scheduled Amitriptyline Hcl (Elavil), 10 MG PO HS Apremilast (Otezla), 30 MG PO BID Cephalexin Monohydrate (Keflex), 500 MG PO TID Ergocalciferol (Vitamin D 00428 Unit), 50,000 INTER.UNIT PO 2XWK Escitalopram Oxalate (Escitalopram Oxalate), 20 MG PO DAILY Hyoscyamine Sulfate (Levsin), 0.125 MG PO TID Levothyroxine Sodium (Levothyroxine Sodium), 25 MCG PO DAILY Pantoprazole (Pantoprazole Sodium), 40 MG PO BID Topiramate (Topiramate), 75 MG PO BID Trazodone Hcl (Trazodone), 50-100 MG PO HS Scheduled PRN Albuterol Hfa (Ventolin Hfa), 2-4 PUFFS INH Q6H PRN for Shortness of Breath Ondansetron (Ondansetron HCl), 4 MG PO TID PRN for Nausea Ondansetron Odt (Zofran Odt), 8 MG SL Q8 PRN for Nausea Promethazine HCl (Promethazine HCl), 25 MG PO Q8 PRN for Nausea or Vomiting Sumatriptan Succinate (Sumatriptan Succinate), 50 MG PO UD PRN for Migraine Allergies Coded Allergies: Acetaminophen (Verified Allergy, Severe, HIVES, 01/29/17) Oxycodone (Verified Allergy, Severe, HIVES, 01/29/17) Vancomycin (Verified Adverse Reaction, Unknown, SEE TEXT. . ., 01/29/17) PT STARTED IV VANC TODAY FOR POSSIBLE OSTEOMYELITIS OF RIGHT FOOT. ALSO ON TIMENTIN 3.1G IV Q6H FROM 03/24/08. PHARM'KINETIC VANC CONSULT PATIENT ORDERED VANC 3G IV Q18H IN 560ML TOTAL VOLUME NSS (~5.3MG/ML). AFTER RECEIVING 136ML PT DEVELOPED BODY ITCHING (NO RASH/REDNESS). KAY TEJADA RN CONTACTED DR BANEGAS AND INSTRUCTED TO D/C VANC AND GIVE BENADRYL 50MG PO X1. 03/27/08 @ 1000: SPOKE WITH DR RUIZ: FEELS THIS IS AN INFUSION RELATED RXN BUT CLINICALLY PT IS DOING WORSE AND IS D/C TIMENTIN/VANC AND STARTING TYGACIL. IS THIS AN INFUSION RELATED RXN OR TRUE ALLERGY? I PUT CALL INTO DR BANEGAS TO FURTHER DISCUSS. NO CALL BACK OF TIME OF DOCUMENTATION. AJ Physical Exam Vital Signs Date Time Temp Pulse Resp B/P (MAP) Pulse Ox O2 Delivery O2 Flow Rate FiO2 02/21/17 21:21 90 18 127/84 96 02/21/17 20:32 81 18 125/83 97 Room Air 02/21/17 19:25 84 02/21/17 19:04 79 18 119/76 98 Room Air 02/21/17 17:04 36.7 82 18 122/75 98 Room Air Physical Exam GENERAL: Patient is tired appearing and in mild distress. HEENT: No acute trauma, normocephalic atraumatic, mucous membranes moist, no nasal congestion, no scleral icterus. NECK: No stridor, no adenopathy, no meningismus, trachea is midline. LUNGS: No dyspnea. Clear to auscultation and equal bilaterally. No wheeze, no rhonchi. HEART: Regular rate and rhythm. No murmurs, rubs, gallops appreciated. ABDOMEN: Soft, right suprapubic tenderness to palpation, bowel sounds positive, no masses appreciated, no peritonitis. BACK: No midline tenderness, no CVA tenderness EXTREMITIES: Normal motion all extremities, no cyanosis, no edema. NEUROLOGIC: Alert and oriented, no acute motor or sensory deficits, no focal weakness, cranial nerves grossly intact. SKIN: No rash, no jaundice, no diaphoresis. Medical Decision & Procedures ER Provider Diagnostic Interpretation: Radiology results and stated below per my review and radiologist interpretation: CHEST CTA for PULMONARY ARTERIES CT DOSE: 1065.51 mGy.cm HISTORY: Chest pain dyspnea TECHNIQUE: Multiaxial CT images of the chest were performed following the intravenous administration of contrast to evaluate the pulmonary arteries. Maximal intensity projection images were also obtained. COMPARISON STUDY: None. FINDINGS: There is a normal caliber thoracic aorta with no evidence for dissection. There is no evidence for pulmonary embolus. No pleural effusions. No pneumothorax. The liver and spleen are unremarkable. No mediastinal or hilar lymphadenopathy. The central airways are patent. The lungs are clear. IMPRESSION: No evidence for pulmonary embolus. Lungs are clear. Negative thoracic aorta Electronically signed by: Collins Armando M.D. 02/21/2017 8:37 PM Dictated Date/Time: 02/21/2017 8:35 PM ABDOMEN AND PELVIS CT WITH IV CONTRAST CT DOSE: HISTORY: Pain RLQ pain, diarrhea x 5 wks, failed outpatient findings TECHNIQUE: Multiaxial CT images of the abdomen and pelvis were performed following the use of intravenous contrast. COMPARISON STUDY: 01/04/2017 FINDINGS: Minimal bibasilar dependent atelectatic change. Liver is uniform. Spleen is unremarkable. Prior gastric bypass type procedure. Mild fatty replacement of the pancreas. Kidneys negative for hydronephrosis. Bowel pattern is considered nonobstructive. No evidence for an obstructive pattern. Bladder is midline. No free fluid within the pelvic cul-de-sac. IMPRESSION: 1. Stable postoperative changes as described. 2. No acute process of the abdomen or pelvis Electronically signed by: Collins Armando M.D. 02/21/2017 8:43 PM Dictated Date/Time: 02/21/2017 8:42 PM Laboratory Results 02/21/17 18:47 Red Blood Count 4.30, Mean Corpuscular Volume 88.1, Mean Corpuscular Hemoglobin 29.3, Mean Corpuscular Hemoglobin Concent 33.2, Mean Platelet Volume 8.9, Neutrophils (%) (Auto) 55.1, Lymphocytes (%) (Auto) 35.2, Monocytes (%) (Auto) 8.0, Eosinophils (%) (Auto) 1.3, Basophils (%) (Auto) 0.3, Neutrophils # (Auto) 3.95, Lymphocytes # (Auto) 2.52, Monocytes # (Auto) 0.57, Eosinophils # (Auto) 0.09, Basophils # (Auto) 0.02 02/21/17 18:47 Test 02/21/17 18:47 02/21/17 18:55 White Blood Count 7.16 K/uL (4.8-10.8) Red Blood Count 4.30 M/uL (4.2-5.4) Hemoglobin 12.6 g/dL (12.0-16.0) Hematocrit 37.9 % (37-47) Mean Corpuscular Volume 88.1 fL (80-100) Mean Corpuscular Hemoglobin 29.3 pg (25-34) Mean Corpuscular Hemoglobin Concent 33.2 g/dl (32-36) Platelet Count 283 K/uL (130-400) Mean Platelet Volume 8.9 fL (7.4-10.4) Neutrophils (%) (Auto) 55.1 % Lymphocytes (%) (Auto) 35.2 % Monocytes (%) (Auto) 8.0 % Eosinophils (%) (Auto) 1.3 % Basophils (%) (Auto) 0.3 % Neutrophils # (Auto) 3.95 K/uL (1.4-6.5) Lymphocytes # (Auto) 2.52 K/uL (1.2-3.4) Monocytes # (Auto) 0.57 K/uL (0.11-0.59) Eosinophils # (Auto) 0.09 K/uL (0-0.5) Basophils # (Auto) 0.02 K/uL (0-0.2) RDW Standard Deviation 48.5 fL (36.4-46.3) RDW Coefficient of Variation 15.2 % (11.5-14.5) Immature Granulocyte % (Auto) 0.1 % Immature Granulocyte # (Auto) 0.01 K/uL (0.00-0.02) Anion Gap 8.0 mmol/L (3-11) Est Creatinine Clear Calc Drug Dose 84.7 ml/min Estimated GFR () 93.3 Estimated GFR (Non- 80.5 BUN/Creatinine Ratio 9.8 (10-20) Calcium Level 8.4 mg/dl (8.5-10.1) Phosphorus Level 2.8 mg/dl (2.5-4.9) Magnesium Level 2.3 mg/dl (1.8-2.4) Total Bilirubin < 0.1 mg/dl (0.2-1) Direct Bilirubin < 0.1 mg/dl (0-0.2) Aspartate Amino Transf (AST/SGOT) 10 U/L (15-37) Alanine Aminotransferase (ALT/SGPT) 19 U/L (12-78) Alkaline Phosphatase 147 U/L (45-117) Total Creatine Kinase 43 U/L (26-192) Creatine Kinase MB 0.9 ng/ml (0.5-3.6) Creatine Kinase MB Ratio 2.1 (0-3.0) Troponin I < 0.015 ng/ml (0-0.045) Total Protein 6.6 gm/dl (6.4-8.2) Albumin 3.5 gm/dl (3.4-5.0) Lipase 65 U/L (73-393) Urine Color YELLOW Urine Appearance CLEAR (CLEAR) Urine pH 5.0 (4.5-7.5) Urine Specific [place] 1.018 (1.000-1.030) Urine Protein NEG (NEG) Urine Glucose (UA) NEG (NEG) Urine Ketones TRACE (NEG) Urine Occult Blood NEG (NEG) Urine Nitrite NEG (NEG) Urine Bilirubin NEG (NEG) Urine Urobilinogen NEG (NEG) Urine Leukocyte Esterase TRACE (NEG) Urine WBC (Auto) 1-5 /hpf (0-5) Urine RBC (Auto) 0-4 /hpf (0-4) Urine Hyaline Casts (Auto) 1-5 /lpf (0-5) Urine Epithelial Cells (Auto) >30 /lpf (0-5) Urine Bacteria (Auto) 1+ (NEG) Laboratory results as reviewed by me. Medications Administered Medications (Trade) Dose Ordered Sig/Monalisa Route Start Time Stop Time Status Last Admin Dose Admin Sodium Chloride 1,000 ml @ 999 mls/hr Q1H1M STAT IV 02/21/17 18:32 02/21/17 19:32 DC 02/21/17 19:10 999 MLS/HR Promethazine HCl 25 mg/Sodium Chloride 51 ml @ 204 mls/hr NOW STAT IV 02/21/17 18:32 02/21/17 18:46 DC 02/21/17 19:12 204 MLS/HR Diphenhydramine HCl (Benadryl Inj) 50 mg NOW STAT IV 02/21/17 18:32 02/21/17 18:34 DC 02/21/17 19:11 50 MG ECG Indication: SOB/dyspnea Rate (beats per minute): 69 Rhythm: normal sinus Findings: Q waves (Septal), no acute ischemic change Comparison ECG Date: 04-Jan-2017 Change: no significant change ED Course 1825: The patient was evaluated in room C10. A complete history and physical exam was performed. 1831: Benadryl Inj 50 mg IV, Promethazine HCl 25 mg/Sodium Chloride 51 ml @ 204 mls/hr IV, NSS 1000 ml @ 999 mls/hr IV. 2050: I reevaluated the patient. She is feeling much better and would like to go home. She will follow up with her PCP. I discussed results and discharge instructions: she verbalized understanding and agreement. The patient is ready for discharge. Medical Decision Differential: Sepsis, Infectious (UTI/Pneumonia/Meningitis/etc), Metabolic/ Electrolyte Abnormality, Cardiac, Hepatic, Endocrine, Toxicologic, Neurologic, amongst other pathologies entertained. Medication Reconciliation: I attest that I have personally reviewed the patient 's current medication list. Blood Pressure Screening: Patient was found to have a slightly elevated blood pressure due to circumstances. I do not believe that the patient requires hypertension monitoring. 51 yr old female arrives with complaint of multiple areas, primarily her generalized weakness, shortness of breath, lower abdominal pain, diarrhea, etc. She is certain symptoms are similar to previous PE and with having just stopped her anti-coagulation I felt compelled to do CT PE study which fortunately was negative. She also is sure diverticulitis or other is back and has already been seen by her PCP several times about this. CT abdo pelv negative as well. Concerned about elevated CL which is similar to every previous evaluation recently. She is stable and feels better with above. Labs unremarkable. Had single episode of urinary burning and UA seems likely contaminant than actual UTI. We discussed having Rx Keflex in cause UTI symptoms develop over the next few days. Stressed follow up with PCP, RTED if worsening or other concerns. Impression Primary Impression: Shortness of breath Additional Impressions: Generalized weakness Abdominal pain, suprapubic Chronic diarrhea Scribe Attestation The scribe's documentation has been prepared under my direction and personally reviewed by me in its entirety. I confirm that the note above accurately reflects all work, treatment, procedures, and medical decision making performed by me. Departure Information Dispostion Home / Self-Care Prescriptions Cephalexin Monohydrate (KEFLEX) 500 Mg Cap 500 MG PO TID, #15 CAP Prov: Sadiq Tang M.D. 02/21/17 Referrals Shell Pinon M.D. (PCP) Patient Instructions My [facility] Additional Instructions Continue to follow with your primary care provider. Call to review your labs and images. Return if worsening symptoms, fevers, passing out or other concerns. If increased urinary symptoms please start Keflex as discussed. Problem Qualifiers
[2017-02-21 21:21] VITALS: BP 127/84; PULSE 90; O2SAT 96
[2017-04-29] MEDS ORDERED: APRE1TAB3 PO (07:41)
[2017-04-29] MEDS ORDERED: AMIT10TA6 PO ×2 (16:46→19:32)
[2017-04-29] MEDS ORDERED: PANT40TA2 PO (17:34)
[2017-04-29] MEDS ORDERED: ERGO500011 PO (19:19)
[2017-05-04] MEDS ORDERED: TPM100 PO (15:06)
[2017-05-04] MEDS ORDERED: PRED10TA PO (15:06)
[2017-05-17] MEDS ORDERED: ONDA8TAB62 SL (12:05)
[2017-05-17] MEDS ORDERED: CYM30 PO (12:05)
[2017-05-17] MEDS ORDERED: NCY50 PO (12:05)
[2017-05-17] MEDS ORDERED: AMIT10TA6 PO (12:05)
[2017-05-24] MEDS ORDERED: MAGN400T7 PO (14:42)
== END 2017-02-21 21:21 | disposition home or self-care (01) ==
LOC: C.EDB 16:55 → C.EDC 21:21
DX: R06.02 Shortness of breath (principal); R53.1 Weakness; R10.30 Lower abdominal pain, unspecified; R19.7 Diarrhea, unspecified; F32.9 Major depressive disorder, single episode, unspecified; K21.9 Gastro-esophageal reflux disease without esophagitis; E11.9 Type 2 diabetes mellitus without complications; Z86.718 Personal history of other venous thrombosis and embolism; Z86.711 Personal history of pulmonary embolism; D50.9 Iron deficiency anemia, unspecified; G43.909 Migraine, unspecified, not intractable, without status migrainosus; L40.50 Arthropathic psoriasis, unspecified; Z79.899 Other long term (current) drug therapy

== ENCOUNTER 2017-04-22 10:38 | Emergency (ER) | payer BC ==
[~2017-04-22] VITALS: Ht 165.1 cm; Wt 84.1 kg
[~2017-04-22 10:38] MED LIST changes: +CEPH500C2 PO; -ERGO500037 PO; -ONDA4TAB46 PO; +ONDA4TAB9 PO
[2017-04-22 10:41] VITALS: TEMP 36.4; Ht 165.1 cm; Wt 84.1 kg
[2017-04-22] MEDS ORDERED: ACETAMINOPHEN IV 650 MG in EMPTY BAG 0 ML IV STA (10:53)
[2017-04-22] MEDS ORDERED: ONDANSETRON INJ 2 MG/ML 2 ML VIAL IV STA (10:53)
[2017-04-22] MEDS ORDERED: SODIUM CHLORIDE 0.9% 1000ML 1,000 ML IV STA (10:53)
--- NOTE | 2017-04-22 10:57 | EMERGENCY ROOM VISIT NOTE ---
History Report prepared by Leon: Susy Ferguson Under the Supervision of: Dr. Sherrell Smith M.D. First contact with patient: 10:44 Chief Complaint: ABDOMINAL PAIN Stated Complaint: DIVERTICULITIS, SEVERE ABD PAIN, D,V, MIGRAINE Nursing Triage Summary: pt c/o abodminal pain, n/v/d, fever last night. pt states today increased abdominal pain , v/d. fever 101. patietn states,"I think I have my diverticulitis again." hx diverticulitis History of Present Illness The patient is a 52 year old female who presents to the Emergency Room with complaints of worsening left lower quadrant abdominal pain that began yesterday. She currently rates her discomfort as a 10/10 in severity. The patient states that yesterday afternoon she began noticing left lower quadrant abdominal pain, and states that it had eased up a little yesterday. She states that today she noticed her pain worsened. The patient states that over the last hour she began experiencing nausea and vomiting. She states that she has been experiencing diarrhea. The patient states that she has a history of diverticulitis and notes her pain feels similar to that today. She additionally reports a fever. The patient notes that she previously had c-diff , but states that her symptoms do not feel similar to when she had c-diff. She states that all she ate this morning was a peach without the peel. The patient states that she has a migraine-headache due to her vomiting and dry heaving. Source of History: patient Onset: yesterday Position: abdomen (LLQ) Symptom Intensity: 1010 Timing: worsening Associated Symptoms: + fevers, + headache, + nausea, + vomiting, + diarrhea Review of Systems See HPI for pertinent positives & negatives. A total of 10 systems reviewed and were otherwise negative. Past Medical & Surgical Medical Problems: (1) Clostridium difficile colitis (2) Depression (3) Edema (4) GERD (gastroesophageal reflux disease) (5) History diabetes mellitus (6) History of DVT (deep vein thrombosis) (7) History of pulmonary embolism (8) MINI (iron deficiency anemia) (9) Migraine headache (10) Psoriatic arthritis (11) Pulmonary embolism (12) Syncope Surgical Problems: (1) H/O wisdom tooth extraction (2) History of carpal tunnel surgery (3) Status post appendectomy (4) Status post cholecystectomy (5) Status post gastric bypass for obesity (6) Status post total knee replacement Family History FHx: rheumatoid arthritis MOTHER GRANDMOTHER Social History Smoking Status: Never Smoker Alcohol Use: none Drug Use: none Marital Status: Housing Status: lives with family Current/Historical Medications Scheduled Amitriptyline Hcl (Elavil), 10 MG PO HS Amoxicillin & Pot Clavulanate (Augmentin 875-125 mg), 875 MG PO BID Apremilast (Otezla), 30 MG PO BID Ergocalciferol (Vitamin D 74102 Unit), 50,000 INTER.UNIT PO 2XWK Escitalopram Oxalate (Escitalopram Oxalate), 20 MG PO DAILY Hyoscyamine Sulfate (Levsin), 0.125 MG PO TID Levothyroxine Sodium (Levothyroxine Sodium), 25 MCG PO DAILY Pantoprazole (Pantoprazole Sodium), 40 MG PO BID Topiramate (Topiramate), 75 MG PO BID Trazodone Hcl (Trazodone), 50 MG PO HS Scheduled PRN Albuterol Hfa (Ventolin Hfa), 2-4 PUFFS INH Q6H PRN for Shortness of Breath Ondansetron (Ondansetron HCl), 4 MG PO TID PRN for Nausea Ondansetron Odt (Zofran Odt), 8 MG SL Q8 PRN for Nausea Promethazine HCl (Promethazine HCl), 25 MG PO Q8 PRN for Nausea or Vomiting Sumatriptan Succinate (Sumatriptan Succinate), 50 MG PO UD PRN for Migraine Allergies Coded Allergies: Acetaminophen (Verified Allergy, Severe, HIVES, 04/22/17) Oxycodone (Verified Allergy, Severe, HIVES, 04/22/17) Vancomycin (Verified Adverse Reaction, Unknown, SEE TEXT. . ., 04/22/17) PT STARTED IV VANC TODAY FOR POSSIBLE OSTEOMYELITIS OF RIGHT FOOT. ALSO ON TIMENTIN 3.1G IV Q6H FROM 03/24/08. PHARM'KINETIC VANC CONSULT PATIENT ORDERED VANC 3G IV Q18H IN 560ML TOTAL VOLUME NSS (~5.3MG/ML). AFTER RECEIVING 136ML PT DEVELOPED BODY ITCHING (NO RASH/REDNESS). KAY TEJADA RN CONTACTED DR BANEGAS AND INSTRUCTED TO D/C VANC AND GIVE BENADRYL 50MG PO X1. 03/27/08 @ 1000: SPOKE WITH DR RUIZ: FEELS THIS IS AN INFUSION RELATED RXN BUT CLINICALLY PT IS DOING WORSE AND IS D/C TIMENTIN/VANC AND STARTING TYGACIL. IS THIS AN INFUSION RELATED RXN OR TRUE ALLERGY? I PUT CALL INTO DR BANEGAS TO FURTHER DISCUSS. NO CALL BACK OF TIME OF DOCUMENTATION. AJ Physical Exam Vital Signs Date Time Temp Pulse Resp B/P (MAP) Pulse Ox O2 Delivery O2 Flow Rate FiO2 04/22/17 14:40 80 20 138/65 95 04/22/17 14:13 85 04/22/17 13:00 90 20 115/66 95 Room Air 04/22/17 11:49 79 04/22/17 11:43 79 20 102/63 97 Room Air 04/22/17 10:41 36.4 106 18 135/87 93 Room Air Physical Exam Vital signs reviewed. General: Well-appearing female, in no significant distress. HEENT: No scleral icterus, PERRLA, neck supple. Atraumatic. Cardiovascular: Regular rate and rhythm, no extra sounds. Pulmonary: Clear to auscultation bilaterally, normal work of breathing. Abdomen: Soft, mild left lower quadrant abdominal tenderness, no rebound no guarding, nondistended, positive bowel sounds. Musculoskeletal: Atraumatic, no peripheral edema. Neurologic: Patient awake alert and oriented x 3 Skin: Warm, dry, no rash Medical Decision & Procedures ER Provider Diagnostic Interpretation: X-ray results as stated below per interpretation by me and the radiologist: CHEST AND ABDOMEN 2 VIEWS HISTORY: Generalized abdominal pain, vomiting, diarrhea COMPARISON: Abdomen and pelvis CT 02/21/2017. Chest CTA 02/21/2017. FINDINGS: The lungs are clear. The cardiomediastinal silhouette is within normal limits. There is no pneumoperitoneum or pneumatosis. The bowel gas pattern is unremarkable. No evidence for bowel obstruction. No renal calculi. Prior cholecystectomy. Suture material within the left upper quadrant consistent with prior bypass. IMPRESSION: No acute cardiopulmonary process. No evidence for bowel obstruction. Electronically signed by: Rob Wasserman M.D. 04/22/2017 11:53 AM Dictated Date/Time: 04/22/2017 11:50 AM Laboratory Results 04/22/17 11:10 Red Blood Count 4.05, Mean Corpuscular Volume 88.6, Mean Corpuscular Hemoglobin 30.4, Mean Corpuscular Hemoglobin Concent 34.3, Mean Platelet Volume 9.1, Neutrophils (%) (Auto) 68.5, Lymphocytes (%) (Auto) 21.1, Monocytes (%) (Auto) 8.7, Eosinophils (%) (Auto) 1.1, Basophils (%) (Auto) 0.4, Neutrophils # (Auto) 5.82, Lymphocytes # (Auto) 1.79, Monocytes # (Auto) 0.74, Eosinophils # (Auto) 0.09, Basophils # (Auto) 0.03 04/22/17 11:10 Test 04/22/17 11:10 White Blood Count 8.49 K/uL (4.8-10.8) Red Blood Count 4.05 M/uL (4.2-5.4) Hemoglobin 12.3 g/dL (12.0-16.0) Hematocrit 35.9 % (37-47) Mean Corpuscular Volume 88.6 fL (80-100) Mean Corpuscular Hemoglobin 30.4 pg (25-34) Mean Corpuscular Hemoglobin Concent 34.3 g/dl (32-36) Platelet Count 310 K/uL (130-400) Mean Platelet Volume 9.1 fL (7.4-10.4) Neutrophils (%) (Auto) 68.5 % Lymphocytes (%) (Auto) 21.1 % Monocytes (%) (Auto) 8.7 % Eosinophils (%) (Auto) 1.1 % Basophils (%) (Auto) 0.4 % Neutrophils # (Auto) 5.82 K/uL (1.4-6.5) Lymphocytes # (Auto) 1.79 K/uL (1.2-3.4) Monocytes # (Auto) 0.74 K/uL (0.11-0.59) Eosinophils # (Auto) 0.09 K/uL (0-0.5) Basophils # (Auto) 0.03 K/uL (0-0.2) RDW Standard Deviation 46.1 fL (36.4-46.3) RDW Coefficient of Variation 14.2 % (11.5-14.5) Immature Granulocyte % (Auto) 0.2 % Immature Granulocyte # (Auto) 0.02 K/uL (0.00-0.02) Urine Color YELLOW Urine Appearance CLEAR (CLEAR) Urine pH 5.0 (4.5-7.5) Urine Specific [place] 1.014 (1.000-1.030) Urine Protein NEG (NEG) Urine Glucose (UA) NEG (NEG) Urine Ketones NEG (NEG) Urine Occult Blood NEG (NEG) Urine Nitrite NEG (NEG) Urine Bilirubin NEG (NEG) Urine Urobilinogen NEG (NEG) Urine Leukocyte Esterase NEG (NEG) Anion Gap 10.0 mmol/L (3-11) Est Creatinine Clear Calc Drug Dose 91.8 ml/min Estimated GFR () 104.7 Estimated GFR (Non- 90.4 BUN/Creatinine Ratio 8.2 (10-20) Calcium Level 8.3 mg/dl (8.5-10.1) Magnesium Level 2.1 mg/dl (1.8-2.4) Total Bilirubin 0.3 mg/dl (0.2-1) Direct Bilirubin < 0.1 mg/dl (0-0.2) Aspartate Amino Transf (AST/SGOT) 14 U/L (15-37) Alanine Aminotransferase (ALT/SGPT) 23 U/L (12-78) Alkaline Phosphatase 134 U/L (45-117) Total Protein 6.4 gm/dl (6.4-8.2) Albumin 3.3 gm/dl (3.4-5.0) Lipase 93 U/L (73-393) Laboratory results per my review. Medications Administered Medications (Trade) Dose Ordered Sig/Monalisa Route Start Time Stop Time Status Last Admin Dose Admin Sodium Chloride 1,000 ml @ 999 mls/hr Q1H1M STAT IV 04/22/17 10:53 04/22/17 11:53 DC 04/22/17 11:25 999 MLS/HR Ondansetron HCl (Zofran Inj) 4 mg NOW STAT IV 04/22/17 10:53 04/22/17 10:57 DC 04/22/17 11:25 4 MG Acetaminophen 650 mg/Empty Bag 65 ml @ 260 mls/hr NOW STAT IV 04/22/17 10:53 04/22/17 11:07 DC 04/22/17 11:24 260 MLS/HR Promethazine HCl 12.5 mg/Sodium Chloride 50.5 ml @ 204 mls/hr NOW STAT IV 04/22/17 12:41 04/22/17 12:55 DC 04/22/17 12:57 204 MLS/HR Morphine Sulfate (MoRPHine SULFATE INJ) 2 mg NOW STAT IV 04/22/17 12:41 04/22/17 12:43 DC 04/22/17 12:57 2 MG Ondansetron HCl (ZOFRAN ODT 4MG Home Pack) 1 homepack UD ONCE PO 04/22/17 14:30 04/22/17 14:31 DC 04/22/17 14:33 1 HOMEPACK ED Course 1050: Past medical records reviewed. The patient was evaluated in room C9. A complete history and physical examination was performed. 1053: Ordered Acetaminophen 650 mg/Empty Bag 65 ml @ 260 mls//hr IV, Zofran Inj 4 mg IV, Sodium Chloride 1000 ml @ 999 mls/hr IV. 1241: Ordered Morphine Sulfate 2 mg IV, Promethazine HCl 12.5 mg/Sodium Chloride 50.5 ml @ 204 mls/hr IV. 1410: I reevaluated the patient and she is resting comfortably. I discussed the exam findings with her and I discussed the treatment plan. She verbalized complete understanding and agreement. She is ready to go home. 1430: Ordered Ondansetron HCl 1 home pack PO. Medical Decision Differential diagnosis: Etiologies such as gastroenteritis, food borne illness, infections, appendicitis , diverticulitis, inflammatory bowel disease, obstruction, GI bleed, biliary pathology, diverticulitis, colitis, c-diff as well as others were entertained. Medication Reconciliation: I attest that I have personally reviewed the patient' s current medication list. Blood Pressure Screening: Patient was found to have normal blood pressure on screening and does not require follow-up. This patient was evaluated and appeared to be in no significant distress. IV access was obtained and laboratory work was drawn. The patient's placed on the phototypesetting equipment monitor and found to be is negative. She was hydrated with normal saline solution, given IV Zofran and IV Tylenol for pain. She is found to be afebrile in the ER with her last dose of Tylenol greater than 6 hours ago. WBC count is normal. Review of records indicates multiple CT scans within the last 12 months therefore a repeat CT scan was avoided. Patient was given Phenergan 12.5 mg IV for continued symptoms. She does have a history of gastric bypass and diverticulitis. She has also had a history of C. difficile. At this time I do not think the patient's presentation warrants antibiotics however if she does truly have a fever and continued left lower quadrant pain, Augmentin 875 mg twice daily for 1 week would be indicated. A prescription was sent the patient was advised to start the antibiotics if the symptoms recur. She was advised that this does place or higher risk for a recurrent C. difficile infection. The patient has had significant radiation exposure from images and I believe that should be used sparingly in the future. Patient was not able to provide a stool specimen in the emergency department. She was advised to follow -up with her PCP this week and to return to the ER for worsening of symptoms or any medical concerns. Impression Primary Impression: LLQ abdominal pain Additional Impression: Nausea & vomiting Scribe Attestation The scribe's documentation has been prepared under my direction and personally reviewed by me in its entirety. I confirm that the note above accurately reflects all work, treatment, procedures, and medical decision making performed by me. Departure Information Dispostion Home / Self-Care Prescriptions Amoxicillin & Pot Clavulanate (Augmentin 875-125 mg) 1 Tab Tab 875 MG PO BID for 7 Days, #14 TAB Prov: Sherrell Smith M.D. 04/22/17 Referrals Shell Pinon M.D. (PCP) Forms Call Back Authorization, HOME CARE DOCUMENTATION FORM, IMPORTANT VISIT INFORMATION Patient Instructions My [facility] Additional Instructions Diagnosis: Left lower quadrant abdominal pain, nausea, vomiting and diarrhea Please drink plenty of clear fluids. Zofran 4 mg ODT every 6 hours as needed for nausea. Augmentin 875 mg twice daily for 7 days, start tomorrow if fever and left-sided abdominal pain persists. This increases her risk of a C. difficile infection, therefore use only if symptoms worsen or persist. You will need a stool culture if diarrhea persists. Follow-up with your PCP this week for reevaluation. Return to the ER for worsening of symptoms or any medical concerns. Problem Qualifiers
[2017-04-22 11:27] LABS: HEMATOCRIT 35.9 % (37-47); MEAN CELL VOLUME 88.6 fL (80-100); MEAN CORPUSCULAR HEMOGLOBIN 30.4 pg (25-34); MEAN CORPUSCULAR HGB CONC 34.3 g/dl (32-36); MEAN PLATELET VOLUME 9.1 fL (7.4-10.4); PLATELET COUNT 310 K/uL (130-400); RED BLOOD COUNT 4.05 M/uL (4.2-5.4); WHITE BLOOD COUNT 8.49 K/uL (4.8-10.8)
[2017-04-22 11:34] LABS: URINE APPEARANCE CLEAR (CLEAR); URINE BILIRUBIN NEG (NEG); URINE COLOR YELLOW; URINE NITRITE NEG (NEG); URINE SPECIFIC GRAVITY 1.014 (1.000-1.030); UROBILINOGEN NEG (NEG); ZZUR CULT IF INDIC CLEAN CATCH NO
[2017-04-22 11:36] LABS: MANUAL MICROSCOPIC REQUIRED? NO; REVIEW REQ? NO
[2017-04-22 11:44] LABS: ALT/SGPT 23 U/L (12-78); AST/SGOT 14 U/L (15-37); BLOOD UREA NITROGEN 6 mg/dl (7-18); BUN/CREATININE RATIO 8.2 (10-20); CALCIUM 8.3 mg/dl (8.5-10.1); CARBON DIOXIDE 22 mmol/L (21-32); CHLORIDE 112 mmol/L (98-107); CREATININE 0.75 mg/dl (0.60-1.20); GLUCOSE 80 mg/dl (70-99); MAGNESIUM 2.1 mg/dl (1.8-2.4); POTASSIUM 4.2 mmol/L (3.5-5.1); SODIUM 144 mmol/L (136-145)
[2017-04-22 11:47] LABS: ALKALINE PHOSPHATASE 134 U/L (45-117)
[2017-04-22 11:48] LABS: BASO % 0.4 %; BASO ABS # 0.03 K/uL (0-0.2); COMPLETE YES; EOS % 1.1 %; IG% 0.2 %; LYMPH % 21.1 %; LYMPH ABS # 1.79 K/uL (1.2-3.4); MONO % 8.7 %; NEUT % 68.5 %
--- NOTE | 2017-04-22 11:55 | DIAGNOSTIC IMAGING REPORT ---
CHEST AND ABDOMEN 2 VIEWS HISTORY: Generalized abdominal pain, vomiting, diarrhea COMPARISON: Abdomen and pelvis CT 02/21/2017. Chest CTA 02/21/2017. FINDINGS: The lungs are clear. The cardiomediastinal silhouette is within normal limits. There is no pneumoperitoneum or pneumatosis. The bowel gas pattern is unremarkable. No evidence for bowel obstruction. No renal calculi. Prior cholecystectomy. Suture material within the left upper quadrant consistent with prior bypass. IMPRESSION: No acute cardiopulmonary process. No evidence for bowel obstruction. Electronically signed by: Rob Wasserman M.D. 04/22/2017 11:53 AM Dictated Date/Time: 04/22/2017 11:50 AM
[2017-04-22] MEDS ORDERED: PROMETHAZINE HCL INJ 12.5 MG in SODIUM CHLORIDE 0.9% 50ML 50 ML IV STA (12:41)
[2017-04-22] MEDS ORDERED: MoRPHine SULFATE 2 MG/ML CARP IV STA (12:41)
[2017-04-22] MEDS ORDERED: AMOX875T PO (14:18)
[2017-04-22] MEDS ORDERED: ONDANSETRON HOME PACK 4MG OD TAB PO ONE (14:30)
[2017-04-22 14:40] VITALS: BP 138/65; PULSE 80; O2SAT 95
[2017-04-29] MEDS ORDERED: APRE1TAB3 PO (07:41)
[2017-04-29] MEDS ORDERED: AMIT10TA6 PO ×2 (16:46→19:32)
[2017-05-04] MEDS ORDERED: TPM100 PO (15:06)
[2017-05-04] MEDS ORDERED: PRED10TA PO (15:06)
[2017-05-17] MEDS ORDERED: NCY50 PO (12:05)
[2017-05-17] MEDS ORDERED: AMIT10TA6 PO (12:05)
[2017-05-17] MEDS ORDERED: CYM30 PO (12:05)
[2017-05-17] MEDS ORDERED: ONDA8TAB62 SL (12:05)
[2017-05-24] MEDS ORDERED: MAGN400T7 PO (14:42)
== END 2017-04-22 14:40 | disposition home or self-care (01) ==
LOC: C.EDB 10:39 → C.EDC 14:40
DX: R10.32 Left lower quadrant pain (principal); R11.2 Nausea with vomiting, unspecified; R19.7 Diarrhea, unspecified; G43.909 Migraine, unspecified, not intractable, without status migrainosus; Z86.19 Personal history of other infectious and parasitic diseases; F32.9 Major depressive disorder, single episode, unspecified; K21.9 Gastro-esophageal reflux disease without esophagitis; E11.9 Type 2 diabetes mellitus without complications; Z86.718 Personal history of other venous thrombosis and embolism; Z86.711 Personal history of pulmonary embolism

== ENCOUNTER 2017-04-29 13:52 | Observation (INO) | payer BC ==
[~2017-04-29] VITALS: Ht 165.1 cm; Wt 90.8 kg
[~2017-04-29 13:52] MED LIST changes: +AMOX875T PO; +APRE1TAB3 PO; -CEPH500C2 PO
[2017-04-29] MEDS ORDERED: PROCHLORPERAZINE 5 MG/ML 2 ML VIAL IV STA (14:20)
[2017-04-29] MEDS ORDERED: SODIUM CHLORIDE 0.9% 1000ML 1,000 ML IV STA (14:20)
[2017-04-29] MEDS ORDERED: DiphenhydrAMINE HCL 50 MG/ML VIAL IV STA (14:20)
[2017-04-29] MEDS ORDERED: OPTIRAY 320 IV PRN (14:30)
[2017-04-29 14:40] LABS: BASO % 0.4 %; BASO ABS # 0.03 K/uL (0-0.2); COMPLETE YES; EOS % 1.9 %; HEMATOCRIT 35.4 % (37-47); IG% 0.1 %; LYMPH ABS # 2.46 K/uL (1.2-3.4); MEAN CELL VOLUME 88.3 fL (80-100); MEAN CORPUSCULAR HEMOGLOBIN 30.2 pg (25-34); MEAN CORPUSCULAR HGB CONC 34.2 g/dl (32-36); MEAN PLATELET VOLUME 8.9 fL (7.4-10.4); MONO % 8.4 %; NEUT % 55.2 %; PLATELET COUNT 310 K/uL (130-400); RED BLOOD COUNT 4.01 M/uL (4.2-5.4); WHITE BLOOD COUNT 7.23 K/uL (4.8-10.8)
[2017-04-29 14:49] LABS: INR 0.9 (0.9-1.1); PARTIAL THROMBOPLASTIN RATIO 0.9; PROTHROMBIN TIME (PATIENT) 10.1 SECONDS (9.0-12.0)
[2017-04-29 14:57] LABS: ALT/SGPT 21 U/L (12-78); BLOOD UREA NITROGEN 8 mg/dl (7-18); BUN/CREATININE RATIO 8.4 (10-20); CALCIUM 8.5 mg/dl (8.5-10.1); CARBON DIOXIDE 22 mmol/L (21-32); CHLORIDE 111 mmol/L (98-107); GLUCOSE 89 mg/dl (70-99); MAGNESIUM 2.1 mg/dl (1.8-2.4); POTASSIUM 4.2 mmol/L (3.5-5.1); SODIUM 144 mmol/L (136-145)
[2017-04-29 15:08] LABS: ALKALINE PHOSPHATASE 127 U/L (45-117); AST/SGOT 16 U/L (15-37)
[2017-04-29] MEDS ORDERED: LEVO25TA5 PO (15:26)
[2017-04-29 15:59] LABS: ISTAT CREATININE 0.9 mg/dl (0.6-1.3); ISTAT HEMOGLOBIN 11.6 g/dl (12.0-16.0); ISTAT IONIZED CALCIUM 1.17 mmol/l (1.12-1.32)
[2017-04-29] MEDS ORDERED: MAGNESIUM SULFATE 1GM / D5W 1 GM BAG IV STA (15:59)
[2017-04-29] MEDS ORDERED: LIDO/EPINEPHRINE/SOD BICARB 20 ML VIAL INFIL ONE (16:26)
--- NOTE | 2017-04-29 16:43 | DIAGNOSTIC IMAGING REPORT ---
CT ANGIOGRAM OF THE BRAIN COMBO; CT ANGIOGRAM OF THE NECK CLINICAL HISTORY: Headache. COMPARISON STUDY: CT of the brain dated 03/23/2016. CT angiogram of the brain dated 09/12/2015. CT scan of the neck dated 01/29/2017. MRI of the brain dated 09/13/2015. TECHNIQUE: Unenhanced axial CT scan of the brain is performed. Subsequently, following the IV administration of 94 of Optiray 320, CT angiogram of the head and neck was performed from the aortic arch to the vertex. Images are reviewed in the axial, sagittal, and coronal planes. 3-D MIPS images are created and assessed. IV contrast was administered without complication. All measurements were calculated based on NASCET criteria. A dose lowering technique was utilized adhering to the principles of ALARA. CT DOSE: 1154.07 mGy.cm FINDINGS: Brain parenchyma: The brain parenchyma is normal in appearance. There is no hemorrhage, mass effect, or evidence of acute territorial ischemia by CT criteria. A 1.4 cm enhancing extra-axial nodule along the left frontal convexity seen on image #[address] angiogram of the brain series is typical appearance for a meningioma.. The ventricles, sulci, and cisterns are normal in configuration. Escobar-white matter differentiation is preserved. No extra-axial fluid collection is seen. Thoracic aorta: Visualized portions of the thoracic aorta are normal in caliber. The aortic arch demonstrates standard 3-vessel anatomy. Right carotid arterial system: The right common carotid artery is widely patent, as are the right internal and external carotid arteries. Left carotid arterial system: The left common carotid artery is widely patent, as are the left internal and external carotid arteries. Vertebral arteries: The vertebral arteries in the neck are widely patent and codominant. Subclavian arteries: Widely patent bilaterally. Intracranial vasculature: The internal carotid arteries are patent at the skull base, as are the anterior and middle cerebral arteries bilaterally. The vertebrobasilar system and posterior cerebral arteries are widely patent. The vertebral arteries are codominant. There is no aneurysm, high-grade stenosis, or focal vessel cut off seen throughout the intracranial circulation. Jugular veins: Widely patent bilaterally. Dural sinuses: Patent. Lung apices: Small cysts are present in the right upper lobe. Partially visualized upper lobe lung parenchyma is otherwise clear. Soft tissues: The visualized pharyngeal soft tissues are normal in appearance noting angiographic phase technique. The oropharyngeal airway appears widely patent. The salivary and thyroid glands are normal in appearance. No cervical lymphadenopathy is seen. Skeletal structures: The calvarium appears intact. The cervical spine is within normal limits. Sinuses and mastoids: The paranasal sinuses are clear. The mastoid air cells are well pneumatized. IMPRESSION: 1. No acute intracranial abnormality. 2. Unremarkable CT angiogram of the brain. 3. Unremarkable CT angiogram the neck. 4. A 1.4 cm extra-axial nodule along the left frontal convexity is unchanged and typical in appearance for a small hemangioma. There is no associated mass effect. Electronically signed by: Zander Humphrey M.D. 04/29/2017 4:41 PM Dictated Date/Time: 04/29/2017 4:27 PM
[2017-04-29] MEDS ORDERED: DEXAMETHASONE SOD INJ 10 MG/ML VIAL IV ONE (16:45)
[2017-04-29] MEDS ORDERED: AMIT10TA6 PO ×2 (16:46→19:32)
[2017-04-29] MEDS ORDERED: HYOS1TAB PO (16:46)
[2017-04-29] MEDS ORDERED: PROM25TA16 PO (16:46)
[2017-04-29] MEDS ORDERED: LXP/20 PO (17:00)
[2017-04-29] MEDS ORDERED: TPM25 PO (17:00)
[2017-04-29] MEDS ORDERED: MoRPHine SULFATE 4 MG/ML 1 ML CARP\\VIAL IV STA (17:23)
[2017-04-29] MEDS ORDERED: PRT/40 PO (17:34)
[2017-04-29] MEDS ORDERED: ONDANSETRON INJ 2 MG/ML 2 ML VIAL IV STA (17:48)
[2017-04-29] MEDS ORDERED: IMT50 PO (18:01)
[2017-04-29] MEDS ORDERED: ONDA8TAB62 SL (18:01)
[2017-04-29 18:18] LABS: CSF APPEARANCE CLEAR; CSF COLOR COLORLESS; CSF XANTHOCHROMIC NO XANTHOCHROMIA
[2017-04-29 18:27] LABS: CSF CHEMISTRY TUBE # 2
[2017-04-29 18:32] LABS: CSF TOTAL PROTEIN 32.6 mg/dl (15.0-45.0)
[2017-04-29] MEDS ORDERED: TRAZ50TA35 PO (19:07)
[2017-04-29] MEDS ORDERED: ERGO1CAP41 PO (19:19)
[2017-04-29] MEDS ORDERED: SUMATRIPTAN SUCCINATE 50 MG TAB PO PRN (19:30)
[2017-04-29] MEDS ORDERED: PROMETHAZINE HCL 25 MG TAB PO PRN (19:30)
[2017-04-29] MEDS ORDERED: NITROGLYCERIN 0.4 MG SL PER TAB CHARGE SL PRN (19:30)
[2017-04-29] MEDS ORDERED: ALUMINUM/MAGNESIUM/SIMETH (MAALOX MAX) 30 ML UDC PO PRN (19:30)
[2017-04-29] MEDS ORDERED: ALBUTEROL HFA 8 GM INHALER INH PRN (19:30)
--- NOTE | 2017-04-29 21:07 | HISTORY & PHYSICAL EXAMINATION ---
DATE OF ADMISSION: 04/29/2017 CHIEF COMPLAINT: Syncope. HISTORY OF PRESENT ILLNESS: This is a 52-year-old female with past medical history significant for psoriatic arthropathy, GERD with esophagitis, gastric bypass surgeries, post-gastric surgery syndromes, DOMINGUEZ, history of C. diff, history of PE and no longer on Coumadin, presents with episodes of syncope. The patient says today she passed out, she does not know how long she passed out because she was alone at workplace . But on the video her co workers saw and came woken her up. After she woke up, she was confused for 1 or 2 minutes and then she was normal, but she noticed she was incontinent with urine. She thought this is fine and she went home, but on her driveway, she again had incontinence of urine and when she went home, again she passed out and at that time she came to the ER. She also noticed severe right-sided headaches. She has migraines, but is different from her usual migraine headaches; it was very severe and also radiating to her neck. In the ER, a CT angiogram of the head and neck was fine and LP was fine. The patient had some blurred vision during episode, but she is okay now. Still nauseous, no vomiting, mild abdominal discomfort. No chest pain, no shortness of breath, no cough, no fever, no chills. Denies any diarrhea or constipation, no blood in the stools, normal bladder movements. No blood in the urine. No swelling in the lower extremities. She lives with her family and prior to this episode she was doing okay. Patient is currently resting comfortably and hemodynamically stable except for nausea and headaches, no other complaints. ALLERGIES: PERCOCET AND VANCOMYCIN. PAST MEDICAL HISTORY: As mentioned above. PAST SURGICAL HISTORY: Carpal tunnel surgery, cholecystectomy, EGD with biopsies, gastric bypass surgery, knee arthroscopy, appendectomy, total abdominal hysterectomy with removal of tubes with biopsy of liver. MEDICATIONS: The patient is otzela 30 mg p.o. b.i.d., vitamin D 5000 units capsules 2 times a week, amitriptyline 20 mg p.o. at bedtime, probiotic 3 times daily with meals, Levsin 0.125 mg p.o. t.i.d., levothyroxine 25 mcg p.o. daily, Lexapro 20 mg p.o. daily, Protonix 40 mg p.o. b.i.d., trazodone 50 mg p.o. daily, Imitrex 50 mg p.o. p.r.n., promethazine 25 mg p.o. q. 8 hours p.r.n., albuterol 2 puffs 4 times daily p.r.n., Topamax 75 mg p.o. b.i.d., Zofran 8 mg p.o. q. 8 hours p.r.n., and vitamin B12 1000 mcg. FAMILY HISTORY: Significant for mother had arthritis and rheumatoid arthritis. Daughter has MS and fibromyalgia. Aunt has psoriatic arthritis and rheumatoid arthritis. Maternal grandmother has rheumatoid arthritis. SOCIAL HISTORY: Never smoked. No alcohol use. No drug use. and lives with her family. REVIEW OF SYMPTOMS: As per HPI. Rest of review of symptoms negative. PHYSICAL EXAMINATION: GENERAL: The patient is obese, not in distress. VITAL SIGNS: Temperature 36.7, pulse 60, respiratory rate 20, blood pressure 131/75, oxygen 98% on room air. HEENT: No pallor, no icterus. Pupils equal, round, and reactive to light. NECK: No JVD, no neck masses, no carotid bruits. CARDIOVASCULAR: S1, S2 heard, regular rate and rhythm, no murmur, no gallop. RESPIRATORY SYSTEM: Normal AP diameter. No accessory muscle use. No wheezing, no crackles. ABDOMEN: Soft, bowel sounds present. Mild epigastric discomfort. No guarding, no rigidity. No distention. CENTRAL NERVOUS SYSTEM: Cranial nerves II-XII grossly intact. Nonfocal. EXTREMITIES: No edema, no erythema. LABORATORY DATA: WBC 7.2, hemoglobin 12.1 hematocrit 35.4, platelets 310. Sodium 144, potassium 4.2, chloride 111, CO2 22, BUN 8, creatinine 0.9, serum glucose 89. Calcium 8.5, ionized calcium 1.17, magnesium 2.1, total bilirubin 0.1, direct bilirubin is less than 0.1, AST 16, ALT 21, alkaline phosphorus 127. Point of care troponin less than 0.03, albumin 3.4. TSH is 1.3. PT 10.1, INR 0.9, PTT 23.9 . Lumbar puncture clear, CSF WBC 1, CSF RBC of 2, CSF glucose 57, CSF total protein 13.6. IMAGING DATA: CT angiogram of the head and neck: No acute intracranial abnormalities. Unremarkable CT angiogram of the brain. Unremarkable CT angiogram of the neck, 1.4 cm extraaxial nodule along the left frontal convexity is unchanged and typical evidence for a small hemangioma. There is no associated mass effect. EKG: Normal sinus rhythm with a rate of 73. No significant change from a previous EKG. ASSESSMENT AND PLAN: This is a 52-year-old female who presents with questionable syncope. 1. Questionable syncope versus seizures. The patient had a couple of episodes of bladder incontinence with passing out, but no post-postictal confusion. She says she was somewhat shaky. She also has a history of migraines, is complaining of severe right-sided headache. Imaging studies are unremarkable. We will monitor on tele floor. We will get echocardiogram and electroencephalogram and consult neurology in a.m. 2. History of chronic migraines Topamax and imitrex p.r.n., currently having severe headache. Will place her on morphine p.r.n. 3. History of PE was on Coumadin for around 6 months and stopped a long time ago. 4. History of gastric bypass and history of gastroesophageal reflux disease. Continue proton pump inhibitor. 5. History of recent Clostridium difficile colitis, on a probiotic. 6. History of hypothyroidism. Continue Synthroid. 7. History of chronic migraines on Topamax and Imitrex p.r.n. 8. Depression. Continue Lexapro. 9. Psoriatic arthritis, currently stable and follow with rheumatology. 10. Deep venous thrombosis prophylaxis, sequential compression devices for now. 11. Disposition: Observation tele floor. Expect to discharge home and follow with his family doctor. 12. Level 1 full code. MTDD
[2017-04-29 21:26] VITALS: Ht 165.1 cm; Wt 90.8 kg
[2017-04-29 21:27] VITALS: BP 129/74; TEMP 36.6
--- NOTE | 2017-04-29 21:30 | EMERGENCY ROOM VISIT NOTE ---
History Report prepared by Leon: Elvin Montoya Under the Supervision of: Dr. Mckinley Navarrete M.D. First contact with patient: 14:05 Chief Complaint: SYNCOPE (NEAR SYNCOPE) Stated Complaint: PASSED OUT, LOST CONTROL OF BOWELS/URINE, HARRIS History of Present Illness The patient is a 52 year old female with a history of migraines and syncopal episodes who presents to the Emergency Room with complaints of syncopal episodes that started around 3 hours ago. The patient states that she was sitting in a chair at work when she passed out. She says that she does not remember passing out, and the last thing she remembers before passing out was sitting in the chair and feeling fine. She says that she was seen by her bosses on camera when she passed out, and the bosses noted that the patient was out for "a while." When the patient woke up, she says that she had wet herself and had a right-sided massive headache. The patient says that she last had a headache this severe last week. The patient states that her bosses wanted to call an ambulance, but she declined as she felt okay. She continued to work, but the headache persistent and she was told to go home. The patient says that when she was driving home, she just did not feel well. The patient adds that her arms and legs started to "feel like rubber" and get pins and needles. The patient notes that she then started to have a terrible pain on the right side of the back of her neck. When she got out of the car, she says that she lost control of her bladder again. The patient says that she got into her house, and was sitting on her bed when she passed out again. She did not fall off the bed. It was witnessed by her daughter. The patient says that she was out this time for around 3 to 4 minutes, and this second episode occurred around 2 hours ago. The patient's then wanted the patient to come here. Currently, the patient says that she still has the headache, and feels loopy, almost as if she is "not here". The patient adds that her arms and legs still feel "weird," and she is very nauseous. The patient also still has the neck pain. She denies any chest pain, shortness of breath, abdominal pain, recent fevers, vomiting, hematochezia, or melena. The patient adds that her last syncopal episode was last year when she was being hospitalized for diverticulitis. She says that she has no history of losing control of her bladder of bowels. Source of History: patient Onset: 3 hours ago Position: other (global - syncope) Symptom Intensity: 2 episodes Quality: other (syncope) Timing: other (episodes) Associated Symptoms: + LOC, + headache, + neck pain, + nausea, + urinary symptoms, + numbness (arms and legs), No fevers, No chest pain, No SOB, No vomiting, No abdominal pain, No melena, No hematochezia Note: No other associated symptoms noted. Review of Systems See HPI for pertinent positives & negatives. A total of 10 systems reviewed and were otherwise negative. Past Medical & Surgical Medical Problems: (1) Clostridium difficile colitis (2) Depression (3) Edema (4) GERD (gastroesophageal reflux disease) (5) History diabetes mellitus (6) History of DVT (deep vein thrombosis) (7) History of pulmonary embolism (8) MINI (iron deficiency anemia) (9) Migraine headache (10) Psoriatic arthritis (11) Pulmonary embolism (12) Syncope (13) Syncope Surgical Problems: (1) H/O wisdom tooth extraction (2) History of carpal tunnel surgery (3) Status post appendectomy (4) Status post cholecystectomy (5) Status post gastric bypass for obesity (6) Status post total knee replacement Family History FHx: rheumatoid arthritis MOTHER GRANDMOTHER Social History Smoking Status: Never Smoker Alcohol Use: none Drug Use: none Marital Status: Housing Status: lives with family Current/Historical Medications Scheduled Amitriptyline Hcl (Elavil), 20 MG PO HS Apremilast (Otezla), 30 MG PO BID Ergocalciferol (Vitamin D 72568 Unit), 50,000 INTER.UNIT PO 2XWK Escitalopram Oxalate (Escitalopram Oxalate), 20 MG PO DAILY Hyoscyamine Sulfate (Levsin), 0.125 MG PO TID Levothyroxine Sodium (Levothyroxine Sodium), 25 MCG PO DAILY Pantoprazole (Pantoprazole Sodium), 40 MG PO BID Topiramate (Topiramate), 75 MG PO BID Trazodone Hcl (Trazodone), 50 MG PO HS Scheduled PRN Albuterol Hfa (Ventolin Hfa), 2 PUFFS INH Q6H PRN for Shortness of Breath Ondansetron Odt (Zofran Odt), 8 MG SL Q8 PRN for Nausea Promethazine HCl (Promethazine HCl), 25 MG PO Q8 PRN for Nausea or Vomiting Sumatriptan Succinate (Sumatriptan Succinate), 50 MG PO UD PRN for Migraine Allergies Coded Allergies: Acetaminophen (Verified Allergy, Severe, HIVES, 04/22/17) Oxycodone (Verified Allergy, Severe, HIVES, 04/22/17) Vancomycin (Verified Adverse Reaction, Unknown, SEE TEXT. . ., 04/22/17) PT STARTED IV VANC TODAY FOR POSSIBLE OSTEOMYELITIS OF RIGHT FOOT. ALSO ON TIMENTIN 3.1G IV Q6H FROM 03/24/08. PHARM'KINETIC VANC CONSULT PATIENT ORDERED VANC 3G IV Q18H IN 560ML TOTAL VOLUME NSS (~5.3MG/ML). AFTER RECEIVING 136ML PT DEVELOPED BODY ITCHING (NO RASH/REDNESS). KAY TEJADA RN CONTACTED DR BANEGAS AND INSTRUCTED TO D/C VANC AND GIVE BENADRYL 50MG PO X1. 03/27/08 @ 1000: SPOKE WITH DR RUIZ: FEELS THIS IS AN INFUSION RELATED RXN BUT CLINICALLY PT IS DOING WORSE AND IS D/C TIMENTIN/VANC AND STARTING TYGACIL. IS THIS AN INFUSION RELATED RXN OR TRUE ALLERGY? I PUT CALL INTO DR BANEGAS TO FURTHER DISCUSS. NO CALL BACK OF TIME OF DOCUMENTATION. AJ Physical Exam Vital Signs Date Time Temp Pulse Resp B/P (MAP) Pulse Ox O2 Delivery O2 Flow Rate FiO2 04/29/17 20:36 65 20 130/72 98 Room Air 04/29/17 17:27 65 20 131/75 98 Room Air 04/29/17 15:27 72 20 124/72 98 Room Air 04/29/17 14:49 66 20 115/67 96 80 117/84 80 131/81 04/29/17 13:54 36.7 81 20 129/78 98 Physical Exam Constitutional: Vital signs reviewed. Eyes: Pupils are equal round reactive to light. Conjunctiva are noninjected. ENT: Pharynx is clear without erythema or exudate. Mucous membranes are moist. Neck supple without meningeal signs. Respiratory: Clear to auscultation bilaterally. Breath sounds are equal bilaterally. Cardiovascular: Regular rate and rhythm. No rubs or gallops. GI: Soft, nondistended and nontender. Bowel sounds are present. Musculoskeletal: No peripheral edema. No lower extremity tenderness. Integumentary: No cyanosis. Neurological: The patient is awake and alert. Cranial nerves II-XII are intact. Motor is 5 out of 5 all extremities. Sensation is intact to light touch all extremities. Normal speech. No pronator drift. Psychiatric: Normal affect. Medical Decision & Procedures ER Provider Diagnostic Interpretation: CT results as stated below per my review and radiologist interpretation. CT ANGIOGRAM OF THE BRAIN COMBO; CT ANGIOGRAM OF THE NECK CLINICAL HISTORY: Headache. COMPARISON STUDY: CT of the brain dated 03/23/2016. CT angiogram of the brain dated 09/12/2015. CT scan of the neck dated 01/29/2017. MRI of the brain dated 09/13/2015. TECHNIQUE: Unenhanced axial CT scan of the brain is performed. Subsequently, following the IV administration of 94 of Optiray 320, CT angiogram of the head and neck was performed from the aortic arch to the vertex. Images are reviewed in the axial, sagittal, and coronal planes. 3-D MIPS images are created and assessed. IV contrast was administered without complication. All measurements were calculated based on NASCET criteria. A dose lowering technique was utilized adhering to the principles of ALARA. CT DOSE: 1154.07 mGy.cm FINDINGS: Brain parenchyma: The brain parenchyma is normal in appearance. There is no hemorrhage, mass effect, or evidence of acute territorial ischemia by CT criteria. A 1.4 cm enhancing extra-axial nodule along the left frontal convexity seen on image #[address] angiogram of the brain series is typical appearance for a meningioma.. The ventricles, sulci, and cisterns are normal in configuration. Escobar-white matter differentiation is preserved. No extra-axial fluid collection is seen. Thoracic aorta: Visualized portions of the thoracic aorta are normal in caliber. The aortic arch demonstrates standard 3-vessel anatomy. Right carotid arterial system: The right common carotid artery is widely patent, as are the right internal and external carotid arteries. Left carotid arterial system: The left common carotid artery is widely patent, as are the left internal and external carotid arteries. Vertebral arteries: The vertebral arteries in the neck are widely patent and codominant. Subclavian arteries: Widely patent bilaterally. Intracranial vasculature: The internal carotid arteries are patent at the skull base, as are the anterior and middle cerebral arteries bilaterally. The vertebrobasilar system and posterior cerebral arteries are widely patent. The vertebral arteries are codominant. There is no aneurysm, high-grade stenosis, or focal vessel cut off seen throughout the intracranial circulation. Jugular veins: Widely patent bilaterally. Dural sinuses: Patent. Lung apices: Small cysts are present in the right upper lobe. Partially visualized upper lobe lung parenchyma is otherwise clear. Soft tissues: The visualized pharyngeal soft tissues are normal in appearance noting angiographic phase technique. The oropharyngeal airway appears widely patent. The salivary and thyroid glands are normal in appearance. No cervical lymphadenopathy is seen. Skeletal structures: The calvarium appears intact. The cervical spine is within normal limits. Sinuses and mastoids: The paranasal sinuses are clear. The mastoid air cells are well pneumatized. IMPRESSION: 1. No acute intracranial abnormality. 2. Unremarkable CT angiogram of the brain. 3. Unremarkable CT angiogram the neck. 4. A 1.4 cm extra-axial nodule along the left frontal convexity is unchanged and typical in appearance for a small hemangioma. There is no associated mass effect. Electronically signed by: Zander Humphrey M.D. 04/29/2017 4:41 PM Dictated Date/Time: 04/29/2017 4:[address] ANGIOGRAM OF THE BRAIN COMBO; CT ANGIOGRAM OF THE NECK CLINICAL HISTORY: Headache. COMPARISON STUDY: CT of the brain dated 03/23/2016. CT angiogram of the brain dated 09/12/2015. CT scan of the neck dated 01/29/2017. MRI of the brain dated 09/13/2015. TECHNIQUE: Unenhanced axial CT scan of the brain is performed. Subsequently, following the IV administration of 94 of Optiray 320, CT angiogram of the head and neck was performed from the aortic arch to the vertex. Images are reviewed in the axial, sagittal, and coronal planes. 3-D MIPS images are created and assessed. IV contrast was administered without complication. All measurements were calculated based on NASCET criteria. A dose lowering technique was utilized adhering to the principles of ALARA. CT DOSE: 1154.07 mGy.cm FINDINGS: Brain parenchyma: The brain parenchyma is normal in appearance. There is no hemorrhage, mass effect, or evidence of acute territorial ischemia by CT criteria. A 1.4 cm enhancing extra-axial nodule along the left frontal convexity seen on image #[address] angiogram of the brain series is typical appearance for a meningioma.. The ventricles, sulci, and cisterns are normal in configuration. Escobar-white matter differentiation is preserved. No extra-axial fluid collection is seen. Thoracic aorta: Visualized portions of the thoracic aorta are normal in caliber. The aortic arch demonstrates standard 3-vessel anatomy. Right carotid arterial system: The right common carotid artery is widely patent, as are the right internal and external carotid arteries. Left carotid arterial system: The left common carotid artery is widely patent, as are the left internal and external carotid arteries. Vertebral arteries: The vertebral arteries in the neck are widely patent and codominant. Subclavian arteries: Widely patent bilaterally. Intracranial vasculature: The internal carotid arteries are patent at the skull base, as are the anterior and middle cerebral arteries bilaterally. The vertebrobasilar system and posterior cerebral arteries are widely patent. The vertebral arteries are codominant. There is no aneurysm, high-grade stenosis, or focal vessel cut off seen throughout the intracranial circulation. Jugular veins: Widely patent bilaterally. Dural sinuses: Patent. Lung apices: Small cysts are present in the right upper lobe. Partially visualized upper lobe lung parenchyma is otherwise clear. Soft tissues: The visualized pharyngeal soft tissues are normal in appearance noting angiographic phase technique. The oropharyngeal airway appears widely patent. The salivary and thyroid glands are normal in appearance. No cervical lymphadenopathy is seen. Skeletal structures: The calvarium appears intact. The cervical spine is within normal limits. Sinuses and mastoids: The paranasal sinuses are clear. The mastoid air cells are well pneumatized. IMPRESSION: 1. No acute intracranial abnormality. 2. Unremarkable CT angiogram of the brain. 3. Unremarkable CT angiogram the neck. 4. A 1.4 cm extra-axial nodule along the left frontal convexity is unchanged and typical in appearance for a small hemangioma. There is no associated mass effect. Electronically signed by: Zander Humphrey M.D. 04/29/2017 4:41 PM Dictated Date/Time: 04/29/2017 4:27 PM Laboratory Results 04/29/17 14:29 Red Blood Count 4.01, Mean Corpuscular Volume 88.3, Mean Corpuscular Hemoglobin 30.2, Mean Corpuscular Hemoglobin Concent 34.2, Mean Platelet Volume 8.9, Neutrophils (%) (Auto) 55.2, Lymphocytes (%) (Auto) 34.0, Monocytes (%) (Auto) 8.4, Eosinophils (%) (Auto) 1.9, Basophils (%) (Auto) 0.4, Neutrophils # (Auto) 3.98, Lymphocytes # (Auto) 2.46, Monocytes # (Auto) 0.61, Eosinophils # (Auto) 0.14, Basophils # (Auto) 0.03 04/29/17 14:29 Test 04/29/17 14:29 04/29/17 14:40 04/29/17 14:43 04/29/17 16:05 White Blood Count 7.23 K/uL (4.8-10.8) Red Blood Count 4.01 M/uL (4.2-5.4) Hemoglobin 12.1 g/dL (12.0-16.0) Hematocrit 35.4 % (37-47) Mean Corpuscular Volume 88.3 fL (80-100) Mean Corpuscular Hemoglobin 30.2 pg (25-34) Mean Corpuscular Hemoglobin Concent 34.2 g/dl (32-36) Platelet Count 310 K/uL (130-400) Mean Platelet Volume 8.9 fL (7.4-10.4) Neutrophils (%) (Auto) 55.2 % Lymphocytes (%) (Auto) 34.0 % Monocytes (%) (Auto) 8.4 % Eosinophils (%) (Auto) 1.9 % Basophils (%) (Auto) 0.4 % Neutrophils # (Auto) 3.98 K/uL (1.4-6.5) Lymphocytes # (Auto) 2.46 K/uL (1.2-3.4) Monocytes # (Auto) 0.61 K/uL (0.11-0.59) Eosinophils # (Auto) 0.14 K/uL (0-0.5) Basophils # (Auto) 0.03 K/uL (0-0.2) RDW Standard Deviation 46.1 fL (36.4-46.3) RDW Coefficient of Variation 14.2 % (11.5-14.5) Immature Granulocyte % (Auto) 0.1 % Immature Granulocyte # (Auto) 0.01 K/uL (0.00-0.02) Prothrombin Time 10.1 SECONDS (9.0-12.0) Prothromb Time International Ratio 0.9 (0.9-1.1) Activated Partial Thromboplast Time 23.9 SECONDS (21.0-31.0) Partial Thromboplastin Ratio 0.9 Est Creatinine Clear Calc Drug Dose 77.4 ml/min Estimated GFR () 84.0 Estimated GFR (Non- 72.5 BUN/Creatinine Ratio 8.4 (10-20) Calcium Level 8.5 mg/dl (8.5-10.1) Magnesium Level 2.1 mg/dl (1.8-2.4) Total Bilirubin 0.1 mg/dl (0.2-1) Direct Bilirubin < 0.1 mg/dl (0-0.2) Aspartate Amino Transf (AST/SGOT) 16 U/L (15-37) Alanine Aminotransferase (ALT/SGPT) 21 U/L (12-78) Alkaline Phosphatase 127 U/L (45-117) Total Protein 6.7 gm/dl (6.4-8.2) Albumin 3.4 gm/dl (3.4-5.0) Thyroid Stimulating Hormone (TSH) 1.300 uIu/ml (0.300-4.500) Bedside Hemoglobin 11.6 g/dl (12.0-16.0) Bedside Hematocrit 34 % (37-47) Bedside Sodium 142 mEq/L (135-144) Bedside Potassium 4.3 mEq/L (3.3-5.0) Bedside Chloride 107 mEq/L (101-112) Bedside Total CO2 23 mEq/l (24-31) Anion Gap 17.0 mmol/L (16-25) Bedside Blood Urea Nitrogen 6 mg/dl (7-18) Bedside Creatinine 0.9 mg/dl (0.6-1.3) Bedside Glucose (other) 90 mg/dl (70-99) Bedside Ionized Calcium (Kaiden) 1.17 mmol/l (1.12-1.32) Bedside Troponin I < 0.030 ng/ml (0-0.045) Ethyl Alcohol mg/dL < 3.0 mg/dl (0-3) Test 04/29/17 17:45 CSF Color COLORLESS CSF Appearance CLEAR CSF WBC 1 /uL (0-5) CSF RBC 2 /uL (0) CSF Xanthrochromic NO XANTHOCHROMIA CSF Cell Count Tube # 4 CSF Chemistry Tube # 2 CSF Glucose 57 mg/dl (40-70) CSF Total Protein 32.6 mg/dl (15.0-45.0) Laboratory results as reviewed by me. Medications Administered Medications (Trade) Dose Ordered Sig/Monalisa Route Start Time Stop Time Status Last Admin Dose Admin Prochlorperazine Edisylate (Compazine Inj) 10 mg NOW STAT IV 04/29/17 14:20 04/29/17 14:23 DC 04/29/17 15:06 10 MG Diphenhydramine HCl (Benadryl Inj) 50 mg NOW STAT IV 04/29/17 14:20 04/29/17 14:24 DC 04/29/17 15:05 50 MG Sodium Chloride 1,000 ml @ 999 mls/hr Q1H1M STAT IV 04/29/17 14:20 04/29/17 15:20 DC 04/29/17 15:05 999 MLS/HR Magnesium Sulfate (Magnesium Sulfate) 1 gm NOW STAT IV 04/29/17 15:59 04/29/17 16:00 DC 04/29/17 16:33 1 GM Dexamethasone Sodium Phosphate (Decadron Inj) 8 mg NOW ONCE IV 04/29/17 16:45 04/29/17 16:46 DC 04/29/17 17:07 8 MG Morphine Sulfate (MoRPHine SULFATE INJ) 4 mg NOW STAT IV 04/29/17 17:23 04/29/17 17:24 DC 04/29/17 17:23 4 MG Ondansetron HCl (Zofran Inj) 4 mg NOW STAT IV 04/29/17 17:48 04/29/17 17:49 DC 04/29/17 17:48 4 MG Procedure Lumbar Puncture performed with Fluoroscopic guidance. Clear fluid with 3 cc's of Lidocaine with 20 gauge 3.5 inch needle. Patient was sitting upright. No complications. ECG Indication: syncope Rate (beats per minute): 73 Rhythm: normal sinus Findings: no acute ischemic change, no ectopy ED Course 1410: The patient was evaluated in room B11A. A complete history and physical exam was performed. 1420: Ordered NSS 1000 ml @ 999 mls/hr IV, Benadryl Inj 50 mg IV, Compazine Inj 10 mg IV. 1424: I reevaluated the patient and discussed the risk and benefits of a lumbar puncture for her, and she agreed to have the test done if it was deemed necessary. 1558: I reevaluated the patient and she was sleeping. When asked how her headache is, she says that the medicine helped a little bit. 1559: Ordered Magnesium Sulfate 1 gm IV. 1640: I reevaluated the patient and the Magnesium is infusing. I discussed the test results with him and he is still complaining of a headache. 1645: Ordered Decadron Inj 8 mg IV. 1720: I reevaluated the patient and she says that she is still having a headache. After discussion of the risk and benefits again, the patient wants to go ahead and have the lumbar puncture. 1723: Ordered Morphine Sulfate Inj 4 mg IV. 1748: Ordered Zofran Inj 4 mg IV. 1828: I reevaluated the patient and she says that her headache is a little better. The patient verbally expressed understanding and agreement of the treatment plan. The patient will be discharged. 183: I discussed the patient with Dr. Toni Zamudio slat pickler - he will evaluate the patient for further treatment. Medical Decision This is a 52-year-old female presents with headache and syncope. Differential diagnosis includes subarachnoid hemorrhage, cerebral aneurysm, vasovagal syncope , metabolic derangement, cardiac, migraine headache, intracranial mass. I did perform a limited focused review of portions of the patient's old chart on the electronic medical record. The patient was seen here April 22 for abdominal pain and a migraine. She was discharged on Augmentin for a week. The patient was here in February for trouble breathing, and had a negative CT of her chest for PE, and had a normal thoracic aortic. Her CT of her abdomen/pelvis was also negative for acute process. I did evaluate the patient as noted above. The patient is presenting with 2 syncopal episodes without any symptoms prior to the syncope. She also woke up with a sudden severe headache on the right side of her head. She is currently neurologically intact. I did discuss workup with her including risks and benefits of a lumbar puncture to rule out subarachnoid hemorrhage prior to giving her any medication. IV access was established. The patient was placed on a continuous senior service technician. I did treat her with IV Compazine and Benadryl. She was also given normal saline IV. I did order and personally review the patient's 12-lead EKG as described above. I did order and review the patient's blood work as noted in the electronic medical record. Her white blood cell count is not elevated. Troponin is negative. Electrolytes are unremarkable. I did order a CT angiogram head and neck. I did review the images myself as well as the radiology report as described above. There is no evidence of intracranial hemorrhage. No evidence of aneurysm. I did reassess the patient. She continues to have a headache and says she had slight relief. She was given IV magnesium and Decadron for her headache. I did discuss the test results with her. I did again discuss risks and benefits of lumbar puncture. She did wish to proceed with the lumbar puncture. I did perform the lumbar puncture as described above without any complications. There is no evidence of blood or meningitis. I did treat the patient with morphine and Zofran IV for her continued headache. I did discuss the test results with her. I did recommend hospitalization for further evaluation of her syncope as well as further care for her headache. I did discuss case with the hospitalist and case aide. Medication Reconcilliation Current Medication List: was personally reviewed by me Blood Pressure Screening Patient's blood pressure: Elevated blood pressure Consults Time Called: 1827 Consulting Physician: Dr. Toni Zamudio slat pickler Returned Call: [phone] I discussed the patient with Dr. Toni Zamudio slat pickler - he will evaluate the patient for further treatment. Impression Primary Impression: Syncope Additional Impression: Intractable headache Scribe Attestation The scribe's documentation has been prepared under my direct and personally reviewed by me in its entirety. I confirm that the note above accurately reflects all work, treatment, procedures, and medical decision making performed by me. Departure Information Dispostion Being Evaluated By Hospitalist Prescriptions Amitriptyline Hcl (ELAVIL) 10 Mg Tab 20 MG PO HS, #30 Prov: Torey Muñoz MD 04/29/17 Referrals Shell Pinon M.D. (PCP) Patient Instructions My [facility] Problem Qualifiers Primary Impression: Syncope Syncope type: unspecified Qualified Codes: R55 - Syncope and collapse Additional Impression: Intractable headache Headache type: unspecified Headache chronicity pattern: acute headache Qualified Codes: R51 - Headache
[2017-04-29] MEDS: ONDANSETRON INJ 2 MG/ML 2 ML VIAL IV PRN (22:09)
[2017-04-29] MEDS: MoRPHine SULFATE 4 MG/ML 1 ML CARP\\VIAL IV PRN (22:22)
[2017-04-29 23:48] VITALS: BP 113/72; PULSE 83; TEMP 36.8; O2SAT 92
[2017-04-30] VITALS (8 sets, daily range): BP systolic 110–137; BP diastolic 70–86; PULSE 53–89; TEMP 36.4–36.6; O2SAT 94–98
[2017-04-30] MEDS ORDERED: TOPIRAMATE 25 MG TAB PO ONE (00:33)
[2017-04-30] MEDS ORDERED: KETOROLAC TROMETHAMINE 30 MG/ML VIAL IV PRN (00:45)
[2017-04-30 00:48] LABS: URINE APPEARANCE CLEAR (CLEAR); URINE BILIRUBIN NEG (NEG); URINE COLOR YELLOW; URINE NITRITE NEG (NEG); URINE SPECIFIC GRAVITY 1.019 (1.000-1.030); UROBILINOGEN NEG (NEG)
[2017-04-30] MEDS: TRAZODONE HCL 50 MG TAB PO SCH ×2 (00:48→20:46)
[2017-04-30] MEDS: AMITRIPTYLINE HCL 10 MG TAB PO SCH ×2 (00:49→20:46)
[2017-04-30] MEDS: HYOSCYAMINE SULFATE 0.125 MG SL TAB PO SCH ×4 (00:49→20:45)
[2017-04-30] MEDS: PANTOprazole SOD 40 MG TAB PO SCH ×3 (00:50→20:45)
[2017-04-30] MEDS: SODIUM CHLORIDE 0.9% 1000ML 1,000 ML IV SCH ×3 (00:51→19:46)
[2017-04-30] MEDS: TOPIRAMATE 25 MG TAB PO SCH ×3 (00:51→20:45)
[2017-04-30 00:55] LABS: MANUAL MICROSCOPIC REQUIRED? NO; REVIEW REQ? NO
[2017-04-30 01:09] LABS: BENZODIAZEPINE, URINE NEG (NEG); COCAINE,URINE NEG (NEG); PHENCYCLIDINE, URINE NEG (NEG)
[2017-04-30] MEDS: MoRPHine SULFATE 4 MG/ML 1 ML CARP\\VIAL IV PRN (04:26)
[2017-04-30] MEDS: ONDANSETRON INJ 2 MG/ML 2 ML VIAL IV PRN ×2 (04:27→07:53)
[2017-04-30] MEDS: LEVOTHYROXINE 25 MCG TAB PO SCH (04:28)
[2017-04-30] MEDS: OTEZLA~ORDER AWAITING ACTION SCH ×3 (06:46→13:54)
[2017-04-30 07:16] LABS: BASO % 0.1 %; BASO ABS # 0.01 K/uL (0-0.2); COMPLETE YES; HEMATOCRIT 35.7 % (37-47); IG% 0.5 %; LYMPH % 9.8 %; LYMPH ABS # 1.01 K/uL (1.2-3.4); MEAN CORPUSCULAR HEMOGLOBIN 29.7 pg (25-34); MEAN CORPUSCULAR HGB CONC 33.3 g/dl (32-36); MONO % 1.9 %; NEUT % 87.7 %; PLATELET COUNT 301 K/uL (130-400); RED BLOOD COUNT 4.01 M/uL (4.2-5.4); WHITE BLOOD COUNT 10.26 K/uL (4.8-10.8)
[2017-04-30 07:49] LABS: BUN/CREATININE RATIO 13.8 (10-20); CALCIUM 8.8 mg/dl (8.5-10.1); CREATININE 0.81 mg/dl (0.60-1.20); MAGNESIUM 2.2 mg/dl (1.8-2.4); POTASSIUM 4.6 mmol/L (3.5-5.1)
[2017-04-30] MEDS: ESCITALOPRAM OXALATE 20 MG TAB PO SCH (07:50)
[2017-04-30] MEDS: ACETAMINOPHEN 325 MG TAB PO PRN (07:52)
--- NOTE | 2017-04-30 13:10 | ECHOCARDIOGRAM REPORT ---
*NOTICE TO RECEIVING LIBERTARIAN AGENCY This information is strictly Confidential and protected under [place] law. [place] law prohibits you from making any further disclosure of this information unless further disclosure is expressly permitted by the written consent of the person to whom it pertains or is authorized by law. A general authorization for the release of medical or other information is not sufficient for this purpose. Hospital accepts no responsibility if the information is made available to any other person, INCLUDING THE PATIENT. Interpretation Summary * Name: VENTURA BRITTON Study Date: 04/30/2017 09:53 AM BP: 113/73 mmHg * Patient Location: C.2T\S\S239\S\2 HR: 58 * : 1965 (M/d/yyyy) Gender: Female Height: 65 in * Age: 52 yrs Ethnicity: CA Weight: 189 lb * Ordering Physician: Torey Muñoz * Referring Physician: Self, Referred * Performed By: Estefania Mott RCS * * Reason For Study: SYNCOPE * BSA: 1.9 m2 * The study was technically adequate. * Compared to prior study, there is no significant change. * -- Conclusions -- * Ejection Fraction = 60-65%. * There is mild concentric left ventricular hypertrophy. * The left atrium is mildly dilated. * No significant valvular pathology. Procedure Details * A complete two-dimensional transthoracic echocardiogram was performed (2D, M-mode, Doppler and color flow Doppler). Left Ventricle * The left ventricle is normal in size. * There is no thrombus. * There is mild concentric left ventricular hypertrophy. * Left ventricular systolic function is normal. * Ejection Fraction = 60-65%. * The left ventricular wall motion is normal. Right Ventricle * The right ventricle is normal size. * The right ventricular systolic function is normal as assessed by tricuspid annular plane systolic excursion (TAPSE) (normal >1.5 cm). Atria * The left atrium is mildly dilated. * Right atrial size is normal. * There is no evidence of atrial septal defect, but resolution does not allow assessment for a patent foramen ovale. Mitral Valve * The mitral valve is normal. * There is no mitral valve stenosis. * Significant mitral regurgitation is absent. Tricuspid Valve * The tricuspid valve is normal. * There is no tricuspid stenosis. * Significant tricuspid regurgitation is absent. Aortic Valve * The aortic valve is trileaflet. * Aortic stenosis is absent. * There is no significant aortic regurgitation. Pulmonic Valve * The pulmonary valve is not well seen, but the Doppler examination is normal without significant regurgitation or stenosis. Great Vessels * The aortic root and proximal ascending aorta are normal sized. Pericardium/Pleural * There is no pericardial effusion. Great Vessels * Normal inferior vena cava diameter and respiratory variation suggests normal central venous pressure. Left Ventricular Diastolic Function * Pulse wave TDI of the anterior and posterior mitral annulas demonstrates normal LV relaxation MMode 2D Measurements and Calculations IVSd 0.92 cm IVSs 1.3 cm LVIDd 4.8 cm LVIDs 3.3 cm LVPWd 1.0 cm LVPWs 1.2 cm IVS/LVPW 0.89 FS 30.1 % EDV(Teich) 106.7 ml ESV(Teich) 45.6 ml EF(Teich) 57.3 % EDV(cubed) 109.5 ml ESV(cubed) 37.4 ml EF(cubed) 65.8 % % IVS thick 38.0 % % LVPW thick 15.7 % LV mass(C)d 164.1 grams LV mass(C)dI 85.0 grams/m\S\2 LV mass(C)s 132.8 grams LV mass(C)sI 68.8 grams/m\S\2 SV(Teich) 61.1 ml SI(Teich) 31.6 ml/m\S\2 SV(cubed) 72.1 ml SI(cubed) 37.3 ml/m\S\2 Ao root diam 2.6 cm Ao root area 5.2 cm\S\2 LA dimension 4.0 cm LA/Ao 1.6 LVOT diam 2.0 cm LVOT area 3.3 cm\S\2 LVAd ap4 38.9 cm\S\2 LVLd ap4 9.6 cm EDV(MOD-sp4) 129.3 ml EDV(sp4-el) 134.6 ml LVAs ap4 24.3 cm\S\2 LVLs ap4 7.9 cm ESV(MOD-sp4) 62.0 ml ESV(sp4-el) 63.6 ml EF(MOD-sp4) 52.0 % EF(sp4-el) 52.8 % LVAd ap2 31.9 cm\S\2 LVLd ap2 8.3 cm EDV(MOD-sp2) 102.1 ml EDV(sp2-el) 104.6 ml LVAs ap2 19.6 cm\S\2 LVLs ap2 6.8 cm ESV(MOD-sp2) 47.6 ml ESV(sp2-el) 47.6 ml EF(MOD-sp2) 53.4 % EF(sp2-el) 54.5 % LVLd %diff -15.48 % EDV(MOD-bp) 123.4 ml LVLs %diff -14.96 % ESV(MOD-bp) 57.8 ml EF(MOD-bp) 53.1 % SV(MOD-sp4) 67.2 ml SI(MOD-sp4) 34.8 ml/m\S\2 SV(MOD-sp2) 54.5 ml SI(MOD-sp2) 28.2 ml/m\S\2 SV(MOD-bp) 65.6 ml SI(MOD-bp) 34.0 ml/m\S\2 SV(sp4-el) 71.0 ml SI(sp4-el) 36.8 ml/m\S\2 SV(sp2-el) 57.0 ml SI(sp2-el) 29.5 ml/m\S\2 Doppler Measurements and Calculations MV E max annamaria 78.8 cm/sec MV A max annamaria 79.9 cm/sec MV E/A 0.99 MV P1/2t max annamaria 82.4 cm/sec MV P1/2t 109.8 msec MVA(P1/2t) 2.0 cm\S\2 MV dec slope 219.7 cm/sec\S\2 MV dec time 0.24 sec Ao V2 max 119.8 cm/sec Ao max PG 5.7 mmHg Ao max PG (full) 1.8 mmHg JOLENE(V,A) 2.7 cm\S\2 JOLENE(V,D) 2.7 cm\S\2 LV V1 max PG 4.0 mmHg LV V1 max 99.9 cm/sec PA V2 max 113.0 cm/sec PA max PG 5.1 mmHg
[2017-04-30] MEDS ORDERED: PROMETHAZINE HCL INJ 25 MG in SODIUM CHLORIDE 0.9% 50ML 50 ML IV ONE (13:45)
[2017-04-30] MEDS ORDERED: HYDROmorphone INJ 1 MG/ML SYR IV ONE (13:45)
--- NOTE | 2017-04-30 15:26 | ELECTROENCEPHALOGRAPH REPORT ---
REQUESTING PHYSICIAN: Melvin Woods MD CLINICAL DIAGNOSES: Headache and syncope, question seizures. ELECTROENCEPHALOGRAM DIAGNOSIS: Essentially normal during wakefulness. DESCRIPTION OF TRACING: This EEG was done as a bedside recording and is of good technical quality with a simultaneous video analysis of patient movement and behavior. Photic stimulation was performed. Hyperventilation was not. Drowsiness and light sleep are not seen. Under these conditions, there is evidence for a background rhythm in the alpha range of up to 10 Hz of maximum frequency and 20-30 microvolts of maximum amplitude. This is maximum posterior head regions and bilaterally symmetrical. Polymorphic mid frequency theta activity is seen over all head regions without clear focal or regional predominance. Anterior head region maximum bilaterally symmetrical low voltage fast activity in the beta range is present. Photic stimulation provokes modest driving response without a photomyogenic or photoparoxysmal component. At no time during the waking tracing is there evidence for potentially epileptogenic activity in the form of polyspike or spike wave bursts, focal sharp waves or focal spikes. INTERPRETATION: This EEG is essentially normal during wakefulness without evidence for focal or generalized encephalopathy and without evidence for potentially epileptogenic activity. MTDD
--- NOTE | 2017-04-30 17:00 | CONSULTATION REPORT ---
DATE OF CONSULTATION: 04/30/2017 FOR: Dr. Woods. HISTORY OF PRESENT ILLNESS: Gladis is 52 years old, has seen me in the past is a regular patient of Dr. Shell Pinon, and has a history of psoriatic arthropathy, GERD with esophagitis, gastric bypass surgeries, post-gastric bypass surgery syndrome, nonalcoholic steatohepatitis, history of C. diff, history of pulmonary embolism, now off Coumadin and migraine headaches which have been variably severe, but likely relatively no frequency over the years. Apparently yesterday, she was at work claims she felt well but then was awakened by her coworkers after she failed to respond and a video of her section at work revealed that she was slumped over in the chair. When she awakened, she became incontinent of urine, but otherwise felt well and then she went home. After arrival there, she again lost continence of urine, passed out and then developed a severe right-sided headache, which she says is much more severe than her usual migraine, it was radiating into her neck and she had an evaluation in the ER including a CT angiogram of the head and neck and a lumbar puncture, all of which was unremarkable. She apparently complained of some blurry vision during the episode, but does not talk about this now and has had no further syncopal events. Currently, she is still nauseated. There has been no vomiting. She has not had any chest pain or shortness of breath and she does not have any focal sensory or motor symptoms other than the right-sided headache which still goes into her neck. ALLERGIES: SHE HAS ALLERGIES TO PERCOCET AND VANCOMYCIN. PAST SURGICAL HISTORY: In addition to the gastric bypass includes carpal tunnel surgery, cholecystectomy, EGD with biopsies, knee arthroscopy, appendectomy, total abdominal hysterectomy, removal of tubes and ovaries. HOME MEDICATIONS: Include Otezla, vitamin D, amitriptyline 20 mg at bedtime, probiotic, Levsin, levothyroxine, Lexapro, Protonix, trazodone, Imitrex as needed, promethazine, albuterol, Topamax 75 twice a day, Zofran and vitamin B12. FAMILY HISTORY: Positive for arthritis in her mother with rheumatoid type, daughter has MS and fibromyalgia. An aunt has psoriatic arthritis and rheumatoid arthritis. Maternal grandmother has rheumatoid arthritis. SOCIAL HISTORY: Reveals him to be a nonsmoker of ethanol. She is and lives with family. REVIEW OF SYSTEMS: Reveals recent good health. She has not had any recent febrile illnesses, weight loss, weight gain, no issues referable to the head, eyes, ears, nose and throat, cardiovascular, pulmonary, gastrointestinal, genitourinary, musculoskeletal system. PHYSICAL EXAMINATION: GENERAL: On examination, she was in no active distress. VITAL SIGNS: Her temperature was 36.7, pulse was 60, respiratory rate was 20, blood pressure 131/75 and O2 saturations were 98%. EAR, EYES, EARS, NOSE AND THROAT: Was unremarkable. NECK: There were no carotid bruits. LUNGS: Clear. HEART: Had a regular rhythm. No murmurs were heard. ABDOMEN: Moderately obese. There was no organomegaly. EXTREMITIES: No peripheral edema. There were good peripheral pulses. NEUROLOGIC: Today neurologically, she is awake, alert, there may be a slight dysarthria of speech. She is somewhat tender in the right side of her head, but there is no temporal artery nodularity. Eye movements are full. There is no visual field cut. A question of soft left facial asymmetry. Tongue protrudes in the midline. She has no drift or pronation sign, facility of rapid repetitive motions is reasonably good. Reflexes are 1+ symmetrical. Toes are downgoing. No Pankaj signs are seen. Strength testing is normal within the limits of her ability to cooperate due to her pain and sensory examination is intact to vibration, light touch and temperature and there is no evidence for sensory neglect. IMPRESSION AND PLAN: Reviewing the laboratory studies and imaging studies, I see no significant problems, but I am going to recommend that we get an MRI scan and I have suggested to Dr. Woods that we go ahead with a run of steroids here to see if we can break what I believe is her migraine headache cycle. I do not know what caused the syncope but certainly this would be an atypical story for seizures and with a normal EEG and this history I certainly would not start any anticonvulsants. It could be pointed out that she is already on Topamax 75 mg twice a day which while not a great first line anticonvulsant should be reasonably effective in preventing seizures.. I will be back tomorrow to check the MRI and see how she responds to steroids. JULIANA
[2017-04-30] MEDS: DiphenhydrAMINE HCL 50 MG/ML VIAL IV PRN (19:00)
--- NOTE | 2017-04-30 20:31 | Progress Note ---
Medicine Progress Note Date & Time of Visit: Apr 30, 2017 at 13:00 . Subjective Severe right-sided headache associated with nausea and blurred vision. No further syncopal episodes. No chest pain. No cough or shortness of breath. No dysuria. No fever. . Objective Last 8 Hrs Date Time Temp Pulse Resp B/P (MAP) Pulse Ox O2 Delivery O2 Flow Rate FiO2 04/30/17 20:00 Room Air 04/30/17 19:18 36.4 86 19 112/70 (84) 94 Room Air 04/30/17 16:16 Room Air 04/30/17 15:33 36.5 89 19 132/86 (101) 95 Room Air 04/30/17 12:58 Room Air 04/30/17 12:43 36.6 60 18 128/73 (91) 95 Room Air Physical Exam: General- no acute distress Eyes- anicteric Lungs- clear to auscultation Heart- RRR, II/ systolic murmur at base Abdomen- + BS, soft, nontender Extremities- no pretibial edema or calf tenderness Neuro- alert, oriented; PERRL, EOMI; no facial palsy; motor strength extremities 5/5 . Laboratory Results: Last 24 Hours Test 04/29/17 23:57 04/30/17 06:35 Urine Color YELLOW Urine Appearance CLEAR Urine pH 7.0 Urine Specific [place] 1.019 Urine Protein NEG Urine Glucose (UA) 2+ Urine Ketones NEG Urine Occult Blood NEG Urine Nitrite NEG Urine Bilirubin NEG Urine Urobilinogen NEG Urine Leukocyte Esterase SMALL Urine WBC (Auto) 1-5 /hpf Urine RBC (Auto) 0-4 /hpf Urine Hyaline Casts (Auto) 0 /lpf Urine Epithelial Cells (Auto) 10-20 /lpf Urine Bacteria (Auto) NEG Urine Opiates Screen POS Urine Methadone, Qualitative NEG Urine Barbiturates NEG Urine Phencyclidine (PCP) Level NEG Ur Amphetamine/Methamphetamine NEG MDMA (Ecstasy) Screen NEG Urine Benzodiazepines Screen NEG Urine Cocaine Metabolite NEG Urine Marijuana (THC) NEG White Blood Count 10.26 K/uL Red Blood Count 4.01 M/uL Hemoglobin 11.9 g/dL Hematocrit 35.7 % Mean Corpuscular Volume 89.0 fL Mean Corpuscular Hemoglobin 29.7 pg Mean Corpuscular Hemoglobin Concent 33.3 g/dl Platelet Count 301 K/uL Mean Platelet Volume 9.0 fL Neutrophils (%) (Auto) 87.7 % Lymphocytes (%) (Auto) 9.8 % Monocytes (%) (Auto) 1.9 % Eosinophils (%) (Auto) 0.0 % Basophils (%) (Auto) 0.1 % Neutrophils # (Auto) 8.99 K/uL Lymphocytes # (Auto) 1.01 K/uL Monocytes # (Auto) 0.20 K/uL Eosinophils # (Auto) 0.00 K/uL Basophils # (Auto) 0.01 K/uL RDW Standard Deviation 46.0 fL RDW Coefficient of Variation 14.0 % Immature Granulocyte % (Auto) 0.5 % Immature Granulocyte # (Auto) 0.05 K/uL Sodium Level 141 mmol/L Potassium Level 4.6 mmol/L Chloride Level 110 mmol/L Carbon Dioxide Level 24 mmol/L Anion Gap 7.0 mmol/L Blood Urea Nitrogen 11 mg/dl Creatinine 0.81 mg/dl Est Creatinine Clear Calc Drug Dose 88.4 ml/min Estimated GFR () 95.4 Estimated GFR (Non- 82.3 BUN/Creatinine Ratio 13.8 Random Glucose 127 mg/dl Calcium Level 8.8 mg/dl Magnesium Level 2.2 mg/dl Assessment & Plan SYNCOPE 2 episodes of syncope associated with urinary incontinence. Head CT negative. No arrhythmias noted on cardiac monitoring. EEG pending. HEADACHE Head CT negative for acute event. CTA of head and neck negative. Possible migraine. MENINGIOMA CT demonstrated 1.4 cm mass on left frontal convexity consistent with a meningioma, unchanged compared to CT 03/23/16. Follow. PSORIATIC ARTHRITIS Continue apremilast. HYPOTHYROIDISM 2 levothyroxine. VTE PROPHYLAXIS SCDs. Ambulate. DISPOSITION Expected discharge to home. Internal Medicine follow-up with Dr. Shell Pinon. . Consultants: Neurology . Procedures: CT head CTA head and neck MRI brain EEG cardiac monitoring IV meds . Current Inpatient Medications: Current Inpatient Medications Medications (Trade) Dose Ordered Sig/Monalisa Route Start Time Stop Time Status Last Admin Dose Admin Ioversol (Optiray 320) 100 ml UD PRN IV 04/29/17 14:30 05/03/17 14:29 Acetaminophen (Tylenol Tab) 650 mg Q4H PRN PO 04/29/17 19:30 05/29/17 19:29 04/30/17 07:52 650 MG Al Hydrox/Mg Hydrox/Simethicone (Maalox Max Susp) 15 ml Q4H PRN PO 04/29/17 19:30 05/29/17 19:29 Magnesium Hydroxide (Milk Of Magnesia Susp) 30 ml Q12H PRN PO 04/29/17 19:30 05/29/17 19:29 Nitroglycerin (Nitrostat Tab) 0.4 mg UD PRN SL 04/29/17 19:30 05/29/17 19:29 Albuterol (Ventolin Hfa Inhaler) 2 puffs Q6H PRN INH 04/29/17 19:30 05/29/17 19:29 Escitalopram Oxalate (Lexapro Tab) 20 mg DAILY PO 04/30/17 09:00 05/30/17 08:59 04/30/17 07:50 20 MG Hyoscyamine Sulfate (Levsin Tab) 0.125 mg TID PO 04/29/17 21:00 05/29/17 20:59 04/30/17 16:50 0.125 MG Levothyroxine Sodium (Synthroid Tab) 25 mcg DAILYBB PO 04/30/17 06:00 05/30/17 06:59 04/30/17 04:28 25 MCG Pantoprazole Sodium (Protonix Tab) 40 mg BID PO 04/29/17 21:00 05/29/17 20:59 04/30/17 07:50 40 MG Promethazine HCl (Phenergan Tab) 25 mg Q8 PRN PO 04/29/17 19:30 05/29/17 19:29 04/30/17 10:47 25 MG Sumatriptan Succinate (Imitrex Tab) 50 mg UD PRN PO 04/29/17 19:30 05/29/17 19:29 04/30/17 10:27 50 MG Topiramate (Topamax Tab) 75 mg BID PO 04/29/17 21:00 05/29/17 20:59 04/30/17 07:50 75 MG Trazodone HCl (Desyrel Tab) 50 mg HS PO 04/29/17 21:00 05/29/17 20:59 04/30/17 00:48 50 MG Miscellaneous Information (Order Awaiting Action) 1 ea QS N/A 04/30/17 00:00 05/30/17 00:00 04/30/17 00:00 1 EA Morphine Sulfate (MoRPHine SULFATE INJ) 3 mg Q3HWA PRN IV 04/29/17 19:30 05/13/17 19:29 04/30/17 04:26 3 MG Amitriptyline HCl (Elavil Tab) 20 mg HS PO 04/29/17 21:00 05/29/17 20:59 04/30/17 00:49 20 MG Miscellaneous (Iv Fluids Completed) 1 ea PRN PRN N/A 04/30/17 00:15 04/30/18 00:14 Lactobacillus Acidophilus (Floranex Tab) 2 tab BID PO 04/30/17 21:00 05/30/17 20:59 Promethazine HCl 25 mg/Sodium Chloride 51 ml @ 204 mls/hr Q6H PRN IV 04/30/17 13:15 05/30/17 13:14 Hydromorphone HCl (Dilaudid Inj) 1 mg Q6H PRN IV 04/30/17 13:15 05/14/17 13:14 Diphenhydramine HCl (Benadryl Inj) 25 mg Q6H PRN IV 04/30/17 18:00 05/30/17 17:59 04/30/17 19:00 25 MG Sodium Chloride 1,000 ml @ 75 mls/hr [id number] IV 04/30/17 19:30 05/30/17 19:29 04/30/17 19:46 75 MLS/HR Prednisone (PredniSONE TAB) 60 mg DAILY PO 05/01/17 09:00 05/31/17 08:59
[2017-04-30] MEDS: LACTOBACILLUS ACIDOPHILUS (FLORANEX) TAB PO SCH (20:45)
[2017-04-30] MEDS: HYDROmorphone INJ 1 MG/ML SYR IV PRN (20:46)
[2017-04-30] MEDS: PROMETHAZINE HCL INJ 25 MG in SODIUM CHLORIDE 0.9% 50ML 50 ML IV PRN (20:57)
[2017-04-30] MEDS ORDERED: GADAVIST IV PRN (23:45)
[2017-05-01] VITALS (9 sets, daily range): BP systolic 112–149; BP diastolic 73–94; PULSE 58–95; TEMP 36.5–37; O2SAT 92–96
[2017-05-01] MEDS: LEVOTHYROXINE 25 MCG TAB PO SCH (06:05)
--- NOTE | 2017-05-01 07:03 | DIAGNOSTIC IMAGING REPORT ---
BRAIN COMBO CLINICAL HISTORY: 52 years-old Female presenting with possible cva, fainting twice since Sunday, no recent head trauma, severe headache with nausea, no history of stroke. TECHNIQUE: Multisequence, multiplanar MR imaging of the brain was performed before and after the administration of intravenous contrast. IV contrast: 9 mL of Gadavist. COMPARISON: CTA of the head from 04/29/2017 and brain MR from 09/13/2015. FINDINGS: Ventricles and sulci normal in size. Brain parenchyma normal in appearance with preserved alvarez-white differentiation. No mass effect or midline shift. No hemorrhage or acute territorial infarct. No extra-axial fluid collection. Previously noted extra-axial mass along the paramedian left frontal region again measures 14 mm. T2 skull base flow voids preserved. No abnormal parenchymal enhancement. Bone marrow signal intensity within the calvarium within normal limits. IMPRESSION: 1. No acute intracranial abnormality. No abnormal enhancement. 2. Stable appearance of the 14 mm left frontal meningioma. Electronically signed by: Alexis Bejarano M.D. 05/01/2017 7:01 AM Dictated Date/Time: 05/01/2017 6:58 AM
[2017-05-01 07:10] LABS: BASO % 0.3 %; BASO ABS # 0.03 K/uL (0-0.2); COMPLETE YES; HEMATOCRIT 31.4 % (37-47); IG% 0.1 %; MEAN CELL VOLUME 89.7 fL (80-100); MEAN CORPUSCULAR HEMOGLOBIN 29.4 pg (25-34); MEAN CORPUSCULAR HGB CONC 32.8 g/dl (32-36); MEAN PLATELET VOLUME 8.9 fL (7.4-10.4); MONO % 6.2 %; NEUT % 54.4 %; PLATELET COUNT 261 K/uL (130-400); WHITE BLOOD COUNT 8.94 K/uL (4.8-10.8)
[2017-05-01] MEDS: OTEZLA~ORDER AWAITING ACTION SCH ×4 (07:30→23:40)
[2017-05-01] MEDS: HYOSCYAMINE SULFATE 0.125 MG SL TAB PO SCH ×3 (07:49→20:36)
[2017-05-01] MEDS: ESCITALOPRAM OXALATE 20 MG TAB PO SCH (07:49)
[2017-05-01] MEDS: LACTOBACILLUS ACIDOPHILUS (FLORANEX) TAB PO SCH ×2 (07:49→20:35)
[2017-05-01] MEDS: TOPIRAMATE 25 MG TAB PO SCH (07:49)
[2017-05-01] MEDS: PROMETHAZINE HCL INJ 25 MG in SODIUM CHLORIDE 0.9% 50ML 50 ML IV PRN ×3 (07:50→21:40)
[2017-05-01] MEDS: PANTOprazole SOD 40 MG TAB PO SCH ×2 (07:50→20:37)
[2017-05-01] MEDS: SODIUM CHLORIDE 0.9% 1000ML 1,000 ML IV SCH ×2 (07:51→20:34)
[2017-05-01] MEDS: HYDROmorphone INJ 1 MG/ML SYR IV PRN ×3 (07:55→21:39)
[2017-05-01 07:56] LABS: BUN/CREATININE RATIO 12.6 (10-20); CALCIUM 8.1 mg/dl (8.5-10.1); CREATININE 0.95 mg/dl (0.60-1.20); POTASSIUM 3.9 mmol/L (3.5-5.1)
[2017-05-01] MEDS: DiphenhydrAMINE HCL 50 MG/ML VIAL IV PRN ×2 (15:27→21:47)
--- NOTE | 2017-05-01 15:36 | NEUROLOGY PROGRESS NOTE ---
DATE: 05/01/2017 DATE: 05/01/2017 Gladis has been moved out of the unit, no further syncopal evidence has been noted and there has been no episodes of urinary incontinence. The EEG is essentially normal to at most mildly slow. MRI scan showed no evidence for significant new lesions involving the brain and CTAs etc on admission showed no evidence for stroke. She continues to complain about a right sided headache. I have started her on some steroids but her first dose was not until this morning. We will see how things go. I may increase her Topamax just a bit while waiting to see if the steroids are going to have an effect. Examination [place] there is no evidence for focal findings involving cranial nerves. There are no upper motor neuron signs. Sensory examination is intact. I do not see any abnormal involuntary movements. I will check back with her tomorrow.
[2017-05-01] MEDS: TOPIRAMATE 100 MG TAB PO SCH (20:38)
[2017-05-01] MEDS: ENOXAPARIN 40 MG/0.4 ML SYR SQ SCH (20:39)
[2017-05-01] MEDS: IV FLUIDS COMPLETED PRN (21:36)
[2017-05-01] MEDS: TRAZODONE HCL 50 MG TAB PO SCH (21:39)
[2017-05-01] MEDS: AMITRIPTYLINE HCL 10 MG TAB PO SCH (21:40)
--- NOTE | 2017-05-01 22:15 | Progress Note ---
Medicine Progress Note Date & Time of Visit: May 01, 2017 at 10:20 . Subjective Persistent right-sided headache and nausea. Intermittent blurred vision. No chest pain. No cough or shortness of breath. No fever. . Objective Last 8 Hrs Date Time Temp Pulse Resp B/P (MAP) Pulse Ox O2 Delivery O2 Flow Rate FiO2 05/01/17 21:55 95 18 132/78 (96) 92 Room Air 05/01/17 16:00 95 Room Air 05/01/17 15:27 36.5 58 20 149/94 (112) 95 Room Air Physical Exam: General- no distress Lungs- clear Heart- RRR, II/ systolic murmur at base Abdomen- + BS, soft, nontender Extremities- no pretibial edema or calf tenderness Neuro- alert, oriented; PERRL, EOMI; no facial palsy; motor strength extremities 5/5 . Laboratory Results: Last 24 Hours Test 05/01/17 06:37 White Blood Count 8.94 K/uL Red Blood Count 3.50 M/uL Hemoglobin 10.3 g/dL Hematocrit 31.4 % Mean Corpuscular Volume 89.7 fL Mean Corpuscular Hemoglobin 29.4 pg Mean Corpuscular Hemoglobin Concent 32.8 g/dl Platelet Count 261 K/uL Mean Platelet Volume 8.9 fL Neutrophils (%) (Auto) 54.4 % Lymphocytes (%) (Auto) 38.0 % Monocytes (%) (Auto) 6.2 % Eosinophils (%) (Auto) 1.0 % Basophils (%) (Auto) 0.3 % Neutrophils # (Auto) 4.86 K/uL Lymphocytes # (Auto) 3.40 K/uL Monocytes # (Auto) 0.55 K/uL Eosinophils # (Auto) 0.09 K/uL Basophils # (Auto) 0.03 K/uL RDW Standard Deviation 46.9 fL RDW Coefficient of Variation 14.3 % Immature Granulocyte % (Auto) 0.1 % Immature Granulocyte # (Auto) 0.01 K/uL Sodium Level 140 mmol/L Potassium Level 3.9 mmol/L Chloride Level 109 mmol/L Carbon Dioxide Level 26 mmol/L Anion Gap 5.0 mmol/L Blood Urea Nitrogen 12 mg/dl Creatinine 0.95 mg/dl Est Creatinine Clear Calc Drug Dose 75.4 ml/min Estimated GFR () 78.7 Estimated GFR (Non- 67.9 BUN/Creatinine Ratio 12.6 Random Glucose 82 mg/dl Calcium Level 8.1 mg/dl Magnesium Level 2.0 mg/dl Assessment & Plan SYNCOPE 2 episodes of syncope associated with urinary incontinence. Neuroimaging by CT and MRI showed previously noted/stable left frontal meningioma, no acute process. No arrhythmias noted on cardiac monitoring. EEG essentially negative. HEADACHE Neuroimaging negative as summarized above. CTA of head and neck negative. Possible migraine. MENINGIOMA CT and MRI demonstrated 1.4 cm mass on left frontal convexity consistent with a meningioma, unchanged compared to CT 03/23/16. Follow. PSORIATIC ARTHRITIS Continue apremilast. HYPOTHYROIDISM Continue levothyroxine. VTE PROPHYLAXIS SCDs initially ordered due to lumbar puncture. Enoxaparin started 04/30/17 Ambulate. DISPOSITION Expected discharge to home. Internal Medicine follow-up with Dr. Shell Pinon. . Consultants: Neurology . Procedures: CT head CTA head and neck MRI brain EEG cardiac monitoring IV meds . Current Inpatient Medications: Current Inpatient Medications Medications (Trade) Dose Ordered Sig/Monalisa Route Start Time Stop Time Status Last Admin Dose Admin Ioversol (Optiray 320) 100 ml UD PRN IV 04/29/17 14:30 05/03/17 14:29 Acetaminophen (Tylenol Tab) 650 mg Q4H PRN PO 04/29/17 19:30 05/29/17 19:29 04/30/17 07:52 650 MG Al Hydrox/Mg Hydrox/Simethicone (Maalox Max Susp) 15 ml Q4H PRN PO 04/29/17 19:30 05/29/17 19:29 Magnesium Hydroxide (Milk Of Magnesia Susp) 30 ml Q12H PRN PO 04/29/17 19:30 05/29/17 19:29 Nitroglycerin (Nitrostat Tab) 0.4 mg UD PRN SL 04/29/17 19:30 05/29/17 19:29 Albuterol (Ventolin Hfa Inhaler) 2 puffs Q6H PRN INH 04/29/17 19:30 05/29/17 19:29 Escitalopram Oxalate (Lexapro Tab) 20 mg DAILY PO 04/30/17 09:00 05/30/17 08:59 05/01/17 07:49 20 MG Hyoscyamine Sulfate (Levsin Tab) 0.125 mg TID PO 04/29/17 21:00 05/29/17 20:59 05/01/17 20:36 0.125 MG Levothyroxine Sodium (Synthroid Tab) 25 mcg DAILYBB PO 04/30/17 06:00 05/30/17 06:59 05/01/17 06:05 25 MCG Pantoprazole Sodium (Protonix Tab) 40 mg BID PO 04/29/17 21:00 05/29/17 20:59 05/01/17 20:37 40 MG Promethazine HCl (Phenergan Tab) 25 mg Q8 PRN PO 04/29/17 19:30 05/29/17 19:29 04/30/17 10:47 25 MG Sumatriptan Succinate (Imitrex Tab) 50 mg UD PRN PO 04/29/17 19:30 05/29/17 19:29 04/30/17 10:27 50 MG Trazodone HCl (Desyrel Tab) 50 mg HS PO 04/29/17 21:00 05/29/17 20:59 05/01/17 21:39 50 MG Miscellaneous Information (Order Awaiting Action) 1 ea QS N/A 04/30/17 00:00 05/30/17 00:00 04/30/17 00:00 1 EA Morphine Sulfate (MoRPHine SULFATE INJ) 3 mg Q3HWA PRN IV 04/29/17 19:30 05/13/17 19:29 04/30/17 04:26 3 MG Amitriptyline HCl (Elavil Tab) 20 mg HS PO 04/29/17 21:00 05/29/17 20:59 05/01/17 21:40 20 MG Miscellaneous (Iv Fluids Completed) 1 ea PRN PRN N/A 04/30/17 00:15 04/30/18 00:14 05/01/17 21:36 1 EA Lactobacillus Acidophilus (Floranex Tab) 2 tab BID PO 04/30/17 21:00 05/30/17 20:59 05/01/17 20:35 2 TAB Promethazine HCl 25 mg/Sodium Chloride 51 ml @ 204 mls/hr Q6H PRN IV 04/30/17 13:15 05/30/17 13:14 05/01/17 21:40 204 MLS/HR Hydromorphone HCl (Dilaudid Inj) 1 mg Q6H PRN IV 04/30/17 13:15 05/14/17 13:14 05/01/17 21:39 1 MG Diphenhydramine HCl (Benadryl Inj) 25 mg Q6H PRN IV 04/30/17 18:00 05/30/17 17:59 05/01/17 21:47 25 MG Sodium Chloride 1,000 ml @ 75 mls/hr [id number] IV 04/30/17 19:30 05/30/17 19:29 05/01/17 20:34 75 MLS/HR Prednisone (PredniSONE TAB) 60 mg DAILY PO 05/01/17 09:00 05/31/17 08:59 05/01/17 07:50 60 MG Gadobutrol (Gadavist) 9 mmol UD PRN IV 04/30/17 23:45 05/04/17 23:44 Enoxaparin Sodium (Lovenox Inj) 40 mg HS SQ 05/01/17 21:00 05/31/17 20:59 05/01/17 20:39 40 MG Topiramate (Topamax Tab) 100 mg BID PO 05/01/17 21:00 05/31/17 20:59 05/01/17 20:38 100 MG
[2017-05-02] MEDS: LEVOTHYROXINE 25 MCG TAB PO SCH (05:43)
[2017-05-02 05:45] LABS: BASO % 0.2 %; BASO ABS # 0.02 K/uL (0-0.2); COMPLETE YES; EOS % 0.7 %; HEMATOCRIT 34.3 % (37-47); IG% 0.2 %; LYMPH % 32.2 %; LYMPH ABS # 2.93 K/uL (1.2-3.4); MEAN CELL VOLUME 90.7 fL (80-100); MEAN CORPUSCULAR HEMOGLOBIN 29.4 pg (25-34); MEAN CORPUSCULAR HGB CONC 32.4 g/dl (32-36); MEAN PLATELET VOLUME 8.9 fL (7.4-10.4); MONO % 7.4 %; NEUT % 59.3 %; PLATELET COUNT 279 K/uL (130-400); RED BLOOD COUNT 3.78 M/uL (4.2-5.4)
[2017-05-02 06:27] LABS: BUN/CREATININE RATIO 18.5 (10-20); CALCIUM 8.1 mg/dl (8.5-10.1); CREATININE 0.82 mg/dl (0.60-1.20)
[2017-05-02 07:06] VITALS: BP 146/89; PULSE 74; TEMP 36.7; O2SAT 94
[2017-05-02] MEDS: HYDROmorphone INJ 1 MG/ML SYR IV PRN ×2 (07:08→16:19)
[2017-05-02] MEDS: OTEZLA~ORDER AWAITING ACTION SCH ×3 (08:00→23:30)
[2017-05-02] MEDS: PROMETHAZINE HCL INJ 25 MG in SODIUM CHLORIDE 0.9% 50ML 50 ML IV PRN ×2 (08:36→16:59)
[2017-05-02] MEDS: DiphenhydrAMINE HCL 50 MG/ML VIAL IV PRN ×2 (08:36→16:19)
[2017-05-02] MEDS: LACTOBACILLUS ACIDOPHILUS (FLORANEX) TAB PO SCH ×2 (08:39→21:34)
[2017-05-02] MEDS: ESCITALOPRAM OXALATE 20 MG TAB PO SCH (08:40)
[2017-05-02] MEDS: PANTOprazole SOD 40 MG TAB PO SCH ×2 (08:40→21:35)
[2017-05-02] MEDS: HYOSCYAMINE SULFATE 0.125 MG SL TAB PO SCH ×3 (08:41→21:34)
[2017-05-02] MEDS: TOPIRAMATE 100 MG TAB PO SCH ×2 (08:41→21:34)
[2017-05-02 10:14] LABS: COD UR NEGATIVE NG/ML (CUTOFF=50); HYDROCOD UR NEGATIVE NG/ML (CUTOFF=50); HYDROMOR UR NEGATIVE NG/ML (CUTOFF=50); MORPHINE UR 875 NG/ML (CUTOFF=50); NORHYDROCODONE CONF UR NEGATIVE NG/ML (CUTOFF=50); OXYMORPH UR NEGATIVE NG/ML (CUTOFF=50)
[2017-05-02] MEDS: SODIUM CHLORIDE 0.9% 1000ML 1,000 ML IV SCH ×2 (10:19→21:59)
[2017-05-02 15:23] VITALS: BP 149/91; PULSE 63; TEMP 36.8; O2SAT 95
[2017-05-02 16:00] VITALS: O2SAT 95
--- NOTE | 2017-05-02 16:30 | PROGRESS NOTE ---
DATE: 05/02/2017 SUBJECTIVE: I saw Sara today. She is now having some chest pain but this seems to have been calming down and now her headache is more generalized and more unremitting, but the Dilaudid has been associated with some pruritus and I think this being downgraded to another narcotic. I did increase her Topamax, but she has only received some minor increase in her doses to date as the order was just written last night, so we will have to see what happens over little more time. From a physical exam point of view, she does not appear to be in not much distress and is really not that much photophobia. She is lying in bed with a window fully open and there is no nuchal rigidity, extraocular dysmotility, problems with visual davis. No nakul-motor disturbances, no hemisensory loss. This is probably a protracted migraine and she has done this before. Hopefully, with tincture of time and a little more steroids and analgesia, the pain will break. We will see with another day of increase Topamax ____ We may have to try some other medications if things do not improve among them, perhaps trying some Depakote. I will check with her tomorrow, but for now unfortunately I do not have any other suggestions. She did have a lumbar puncture, but she had a headache before lumbar puncture and there are really no positional components to the headache that she reports today, so I do not think anesthesia needs to get involved with a blood patch, unless we have more classic story for post-LP pain. JULIANA
--- NOTE | 2017-05-02 21:09 | Progress Note ---
Medicine Progress Note Date & Time of Visit: May 02, 2017 at 18:45 . Subjective Had some chest discomfort last night, worse when coughing. No acute changes on EKG. D-dimer and troponin OK. Headache was severe this afternoon, but better this evening. Still nauseated. Feels lightheaded when she stands up. Minimal ambulation- just walking to bathroom. . Objective Last 8 Hrs Date Time Temp Pulse Resp B/P (MAP) Pulse Ox O2 Delivery O2 Flow Rate FiO2 05/02/17 16:00 95 Room Air 05/02/17 15:23 36.8 63 20 149/91 (110) 95 Physical Exam: General- no distress Lungs- clear Heart- RRR, II/ systolic murmur at base Abdomen- + BS, soft, nontender Extremities- no pretibial edema or calf tenderness Neuro- alert, oriented; PERRL, EOMI; no facial palsy; motor strength extremities grossly intact . Laboratory Results: Last 24 Hours Test 05/01/17 22:55 05/02/17 05:18 D-Dimer 230 ug/L FEU Troponin I < 0.015 ng/ml White Blood Count 9.10 K/uL Red Blood Count 3.78 M/uL Hemoglobin 11.1 g/dL Hematocrit 34.3 % Mean Corpuscular Volume 90.7 fL Mean Corpuscular Hemoglobin 29.4 pg Mean Corpuscular Hemoglobin Concent 32.4 g/dl Platelet Count 279 K/uL Mean Platelet Volume 8.9 fL Neutrophils (%) (Auto) 59.3 % Lymphocytes (%) (Auto) 32.2 % Monocytes (%) (Auto) 7.4 % Eosinophils (%) (Auto) 0.7 % Basophils (%) (Auto) 0.2 % Neutrophils # (Auto) 5.40 K/uL Lymphocytes # (Auto) 2.93 K/uL Monocytes # (Auto) 0.67 K/uL Eosinophils # (Auto) 0.06 K/uL Basophils # (Auto) 0.02 K/uL RDW Standard Deviation 47.2 fL RDW Coefficient of Variation 14.3 % Immature Granulocyte % (Auto) 0.2 % Immature Granulocyte # (Auto) 0.02 K/uL Sodium Level 146 mmol/L Potassium Level 4.0 mmol/L Chloride Level 114 mmol/L Carbon Dioxide Level 26 mmol/L Anion Gap 6.0 mmol/L Blood Urea Nitrogen 15 mg/dl Creatinine 0.82 mg/dl Est Creatinine Clear Calc Drug Dose 87.3 ml/min Estimated GFR () 94.0 Estimated GFR (Non- 81.1 BUN/Creatinine Ratio 18.5 Random Glucose 85 mg/dl Calcium Level 8.1 mg/dl Chemistry Specimen Hemolysis Assessment & Plan SYNCOPE 2 episodes of syncope associated with urinary incontinence. Neuroimaging by CT and MRI showed previously noted/stable left frontal meningioma, no acute process. No arrhythmias noted on cardiac monitoring. EEG essentially negative. HEADACHE Neuroimaging negative as summarized above. CTA of head and neck negative. Probable migraine. Seen by Neuro. Started on prednisone [address] and MRI demonstrated 1.4 cm mass on left frontal convexity consistent with a meningioma, unchanged compared to CT 03/23/16. Follow. PSORIATIC ARTHRITIS Continue apremilast. HYPOTHYROIDISM Continue levothyroxine. VTE PROPHYLAXIS SCDs initially ordered due to lumbar puncture. Enoxaparin started 04/30/17 Ambulate. DISPOSITION Expected discharge to home. Internal Medicine follow-up with Dr. Shell Pinon. . Consultants: Neurology . Procedures: CT head CTA head and neck MRI brain EEG cardiac monitoring IV meds . Current Inpatient Medications: Current Inpatient Medications Medications (Trade) Dose Ordered Sig/Monalisa Route Start Time Stop Time Status Last Admin Dose Admin Ioversol (Optiray 320) 100 ml UD PRN IV 04/29/17 14:30 05/03/17 14:29 Acetaminophen (Tylenol Tab) 650 mg Q4H PRN PO 04/29/17 19:30 05/29/17 19:29 04/30/17 07:52 650 MG Al Hydrox/Mg Hydrox/Simethicone (Maalox Max Susp) 15 ml Q4H PRN PO 04/29/17 19:30 05/29/17 19:29 Magnesium Hydroxide (Milk Of Magnesia Susp) 30 ml Q12H PRN PO 04/29/17 19:30 05/29/17 19:29 Nitroglycerin (Nitrostat Tab) 0.4 mg UD PRN SL 04/29/17 19:30 05/29/17 19:29 Albuterol (Ventolin Hfa Inhaler) 2 puffs Q6H PRN INH 04/29/17 19:30 05/29/17 19:29 Escitalopram Oxalate (Lexapro Tab) 20 mg DAILY PO 04/30/17 09:00 05/30/17 08:59 05/02/17 08:40 20 MG Hyoscyamine Sulfate (Levsin Tab) 0.125 mg TID PO 04/29/17 21:00 05/29/17 20:59 05/02/17 13:29 0.125 MG Levothyroxine Sodium (Synthroid Tab) 25 mcg DAILYBB PO 04/30/17 06:00 05/30/17 06:59 05/02/17 05:43 25 MCG Pantoprazole Sodium (Protonix Tab) 40 mg BID PO 04/29/17 21:00 05/29/17 20:59 05/02/17 08:40 40 MG Promethazine HCl (Phenergan Tab) 25 mg Q8 PRN PO 04/29/17 19:30 05/29/17 19:29 04/30/17 10:47 25 MG Sumatriptan Succinate (Imitrex Tab) 50 mg UD PRN PO 04/29/17 19:30 05/29/17 19:29 04/30/17 10:27 50 MG Trazodone HCl (Desyrel Tab) 50 mg HS PO 04/29/17 21:00 05/29/17 20:59 05/01/17 21:39 50 MG Miscellaneous Information (Order Awaiting Action) 1 ea QS N/A 04/30/17 00:00 05/30/17 00:00 04/30/17 00:00 1 EA Morphine Sulfate (MoRPHine SULFATE INJ) 3 mg Q3HWA PRN IV 04/29/17 19:30 05/13/17 19:29 04/30/17 04:26 3 MG Amitriptyline HCl (Elavil Tab) 20 mg HS PO 04/29/17 21:00 05/29/17 20:59 05/01/17 21:40 20 MG Miscellaneous (Iv Fluids Completed) 1 ea PRN PRN N/A 04/30/17 00:15 04/30/18 00:14 05/01/17 21:36 1 EA Lactobacillus Acidophilus (Floranex Tab) 2 tab BID PO 04/30/17 21:00 05/30/17 20:59 05/02/17 08:39 2 TAB Promethazine HCl 25 mg/Sodium Chloride 51 ml @ 204 mls/hr Q6H PRN IV 04/30/17 13:15 05/30/17 13:14 05/02/17 16:59 204 MLS/HR Hydromorphone HCl (Dilaudid Inj) 1 mg Q6H PRN IV 04/30/17 13:15 05/14/17 13:14 05/02/17 16:19 1 MG Diphenhydramine HCl (Benadryl Inj) 25 mg Q6H PRN IV 04/30/17 18:00 05/30/17 17:59 05/02/17 16:19 25 MG Sodium Chloride 1,000 ml @ 75 mls/hr [id number] IV 04/30/17 19:30 05/30/17 19:29 05/02/17 10:19 75 MLS/HR Prednisone (PredniSONE TAB) 60 mg DAILY PO 05/01/17 09:00 05/31/17 08:59 05/02/17 08:40 60 MG Gadobutrol (Gadavist) 9 mmol UD PRN IV 04/30/17 23:45 05/04/17 23:44 Enoxaparin Sodium (Lovenox Inj) 40 mg HS SQ 05/01/17 21:00 05/31/17 20:59 05/01/17 20:39 40 MG Topiramate (Topamax Tab) 100 mg BID PO 05/01/17 21:00 05/31/17 20:59 05/02/17 08:41 100 MG
[2017-05-02] MEDS: TRAZODONE HCL 50 MG TAB PO SCH (21:33)
[2017-05-02] MEDS: AMITRIPTYLINE HCL 10 MG TAB PO SCH (21:36)
[2017-05-02] MEDS: ENOXAPARIN 40 MG/0.4 ML SYR SQ SCH (21:36)
[2017-05-02] MEDS: IV FLUIDS COMPLETED PRN (22:16)
[2017-05-03 00:23] VITALS: BP 138/87; PULSE 73; TEMP 36.7; O2SAT 92
[2017-05-03] MEDS ORDERED: HYDROmorphone INJ 1 MG/ML SYR IV PRN (03:15)
[2017-05-03] MEDS: LEVOTHYROXINE 25 MCG TAB PO SCH (06:05)
[2017-05-03 06:58] VITALS: BP 131/83; PULSE 83; TEMP 36.7; O2SAT 96
[2017-05-03] MEDS: OTEZLA~ORDER AWAITING ACTION SCH ×3 (08:00→23:49)
[2017-05-03] MEDS: PROMETHAZINE HCL INJ 25 MG in SODIUM CHLORIDE 0.9% 50ML 50 ML IV PRN ×2 (08:10→18:17)
[2017-05-03] MEDS: HYOSCYAMINE SULFATE 0.125 MG SL TAB PO SCH ×3 (08:12→21:34)
[2017-05-03] MEDS: TOPIRAMATE 100 MG TAB PO SCH ×2 (08:12→21:32)
[2017-05-03] MEDS: LACTOBACILLUS ACIDOPHILUS (FLORANEX) TAB PO SCH ×2 (08:13→21:33)
[2017-05-03] MEDS: ESCITALOPRAM OXALATE 20 MG TAB PO SCH (08:13)
[2017-05-03] MEDS: HYDROmorphone INJ 1 MG/ML SYR IV PRN ×2 (08:19→16:53)
[2017-05-03] MEDS: DiphenhydrAMINE HCL 50 MG/ML VIAL IV PRN ×2 (08:19→16:53)
[2017-05-03] MEDS: PANTOprazole SOD 40 MG TAB PO SCH ×2 (09:28→21:35)
[2017-05-03] MEDS: NYSTATIN SUSP 500,000 U/5 ML UDC PO SCH ×3 (12:32→21:32)
[2017-05-03] MEDS: SODIUM CHLORIDE 0.9% 1000ML 1,000 ML IV SCH (15:10)
[2017-05-03] MEDS: ACETAMINOPHEN 325 MG TAB PO PRN (15:12)
[2017-05-03 15:52] VITALS: BP 142/90; PULSE 65; TEMP 36.8; O2SAT 93
[2017-05-03] MEDS ORDERED: VALPROATE SOD IV 250 MG in DEXTROSE 5% 50ML 50 ML IV ONE (16:00)
--- NOTE | 2017-05-03 16:31 | PROGRESS NOTE ---
DATE: 05/03/2017 SUBJECTIVE: Gladis looks a little better today but still has nausea, the headache and when she got up to walk around of Dr. oWods' suggestion she felt more unsteady and ill. Right now, she is continuing to report the pain as a 10/10 and is asking for some Dilaudid. She is on Topamax 100 mg twice a day and she is still on her steroids 60 mg a day, I am going to recommend this be continued after discharge. I am going to try a little IV Depakote just to see if this might help break some the headache cycle at this point. I am not overly optimistic, I will write for a one time order, this afternoon and will see how she does tomorrow morning. If this effects some improvement, I would discharge her on her raised levels of Topamax and would have her taper off the prednisone going for 60 mg another two days and 40 mg for three days, 20 mg for three days, 10 mg for three days and then stop it. OBJECTIVE: Exam [place], with the exception of her complaints of headaches, she looks well. She has no cranial neuropathies. There is no evidence for tremors, tics or choreiform activity, drift or pronation sign. Her reflexes are fine. Strength is excellent. Sensation is intact. IMPRESSION AND PLAN: I will check with her tomorrow afternoon if she is still in the hospital and could not be discharged, but if she is discharged, I would invite Dr. Woods to use the steroid taper outlined in my note. MTDD
[2017-05-03] MEDS: MAGNESIUM HYDROXIDE SUSP 30 ML UDC PO PRN (16:53)
--- NOTE | 2017-05-03 21:32 | Progress Note ---
Medicine Progress Note Date & Time of Visit: May 03, 2017 at 11:50 . Subjective Feels a little better. Headache less intense. Starting to ambulate. Persistent nausea. Has burning of tongue- hx of thrush in past. No other complaints. . Objective Last 8 Hrs Date Time Temp Pulse Resp B/P (MAP) Pulse Ox O2 Delivery O2 Flow Rate FiO2 05/03/17 19:44 Room Air 05/03/17 15:52 36.8 65 18 142/90 (107) 93 Room Air Physical Exam: General- no distress ENT- mild erythema of tongue Lungs- clear Heart- RRR Abdomen- + BS, soft, nontender Extremities- no pretibial edema or calf tenderness Neuro- alert, oriented . Assessment & Plan SYNCOPE 2 episodes of apparent syncope associated with urinary incontinence. Neuroimaging by CT and MRI showed previously noted/stable left frontal meningioma, no acute process. No arrhythmias noted on cardiac monitoring. EEG essentially negative. No recurrence. HEADACHE Neuroimaging negative as summarized above. CTA of head and neck negative. LP unremarkable. Probable migraine. Seen by Neuro. Started on prednisone 60 mg daily; taper per Neuro. MENINGIOMA CT and MRI demonstrated 1.4 cm mass on left frontal convexity consistent with a meningioma, unchanged compared to CT 03/23/16. Follow. PSORIATIC ARTHRITIS Continue apremilast. HYPOTHYROIDISM Continue levothyroxine. ORAL THRUSH Rx with nystatin susp. VTE PROPHYLAXIS SCDs initially ordered due to lumbar puncture. Enoxaparin started 04/30/17 Ambulate. DISPOSITION Expected discharge to home. Internal Medicine follow-up with Dr. Shell Pinon. . Consultants: Neurology . Procedures: CT head CTA head and neck MRI brain EEG cardiac monitoring IV meds . Current Inpatient Medications: Current Inpatient Medications Medications (Trade) Dose Ordered Sig/Monalisa Route Start Time Stop Time Status Last Admin Dose Admin Acetaminophen (Tylenol Tab) 650 mg Q4H PRN PO 04/29/17 19:30 05/29/17 19:29 05/03/17 15:12 650 MG Al Hydrox/Mg Hydrox/Simethicone (Maalox Max Susp) 15 ml Q4H PRN PO 04/29/17 19:30 05/29/17 19:29 Magnesium Hydroxide (Milk Of Magnesia Susp) 30 ml Q12H PRN PO 04/29/17 19:30 05/29/17 19:29 05/03/17 16:53 30 ML Nitroglycerin (Nitrostat Tab) 0.4 mg UD PRN SL 04/29/17 19:30 05/29/17 19:29 Albuterol (Ventolin Hfa Inhaler) 2 puffs Q6H PRN INH 04/29/17 19:30 05/29/17 19:29 Escitalopram Oxalate (Lexapro Tab) 20 mg DAILY PO 04/30/17 09:00 05/30/17 08:59 05/03/17 08:13 20 MG Hyoscyamine Sulfate (Levsin Tab) 0.125 mg TID PO 04/29/17 21:00 05/29/17 20:59 05/03/17 15:09 0.125 MG Levothyroxine Sodium (Synthroid Tab) 25 mcg DAILYBB PO 04/30/17 06:00 05/30/17 06:59 05/03/17 06:05 25 MCG Pantoprazole Sodium (Protonix Tab) 40 mg BID PO 04/29/17 21:00 05/29/17 20:59 05/03/17 09:28 40 MG Promethazine HCl (Phenergan Tab) 25 mg Q8 PRN PO 04/29/17 19:30 05/29/17 19:29 04/30/17 10:47 25 MG Sumatriptan Succinate (Imitrex Tab) 50 mg UD PRN PO 04/29/17 19:30 05/29/17 19:29 04/30/17 10:27 50 MG Trazodone HCl (Desyrel Tab) 50 mg HS PO 04/29/17 21:00 05/29/17 20:59 05/02/17 21:33 50 MG Miscellaneous Information (Order Awaiting Action) 1 ea QS N/A 04/30/17 00:00 05/30/17 00:00 04/30/17 00:00 1 EA Morphine Sulfate (MoRPHine SULFATE INJ) 3 mg Q3HWA PRN IV 04/29/17 19:30 05/13/17 19:29 04/30/17 04:26 3 MG Amitriptyline HCl (Elavil Tab) 20 mg HS PO 04/29/17 21:00 05/29/17 20:59 05/02/17 21:36 20 MG Miscellaneous (Iv Fluids Completed) 1 ea PRN PRN N/A 04/30/17 00:15 04/30/18 00:14 05/02/17 22:16 1 EA Lactobacillus Acidophilus (Floranex Tab) 2 tab BID PO 04/30/17 21:00 05/30/17 20:59 05/03/17 08:13 2 TAB Diphenhydramine HCl (Benadryl Inj) 25 mg Q6H PRN IV 04/30/17 18:00 05/30/17 17:59 05/03/17 16:53 25 MG Sodium Chloride 1,000 ml @ 75 mls/hr [id number] IV 04/30/17 19:30 05/30/17 19:29 05/03/17 15:10 75 MLS/HR Prednisone (PredniSONE TAB) 60 mg DAILY PO 05/01/17 09:00 05/31/17 08:59 05/03/17 08:12 60 MG Gadobutrol (Gadavist) 9 mmol UD PRN IV 04/30/17 23:45 05/04/17 23:44 Enoxaparin Sodium (Lovenox Inj) 40 mg HS SQ 05/01/17 21:00 05/31/17 20:59 05/02/17 21:36 40 MG Topiramate (Topamax Tab) 100 mg BID PO 05/01/17 21:00 05/31/17 20:59 05/03/17 08:12 100 MG Promethazine HCl 25 mg/Sodium Chloride 51 ml @ 204 mls/hr Q8H PRN IV 05/03/17 03:15 05/30/17 13:14 05/03/17 18:17 204 MLS/HR Hydromorphone HCl (Dilaudid Inj) 1 mg Q8H PRN IV 05/03/17 00:45 05/17/17 00:44 05/03/17 16:53 1 MG Nystatin (Mycostatin Susp) 5 ml QID PO 05/03/17 13:00 05/13/17 12:59 05/03/17 16:53 5 ML
[2017-05-03] MEDS: ENOXAPARIN 40 MG/0.4 ML SYR SQ SCH (21:33)
[2017-05-03] MEDS: TRAZODONE HCL 50 MG TAB PO SCH (21:34)
[2017-05-03] MEDS: AMITRIPTYLINE HCL 10 MG TAB PO SCH (21:34)
[2017-05-03 23:18] VITALS: BP 119/72; PULSE 62; TEMP 36.5; O2SAT 91
[2017-05-04] MEDS: DiphenhydrAMINE HCL 50 MG/ML VIAL IV PRN (06:10)
[2017-05-04] MEDS: HYDROmorphone INJ 1 MG/ML SYR IV PRN (06:10)
[2017-05-04] MEDS: LEVOTHYROXINE 25 MCG TAB PO SCH (06:11)
[2017-05-04] MEDS: PROMETHAZINE HCL INJ 25 MG in SODIUM CHLORIDE 0.9% 50ML 50 ML IV PRN (06:17)
[2017-05-04 07:06] VITALS: BP 153/94; PULSE 63; TEMP 36.3; O2SAT 92
[2017-05-04] MEDS: OTEZLA~ORDER AWAITING ACTION SCH (08:00)
[2017-05-04] MEDS: LACTOBACILLUS ACIDOPHILUS (FLORANEX) TAB PO SCH (08:42)
[2017-05-04] MEDS: PANTOprazole SOD 40 MG TAB PO SCH (08:42)
[2017-05-04] MEDS: TOPIRAMATE 100 MG TAB PO SCH (08:43)
[2017-05-04] MEDS: ESCITALOPRAM OXALATE 20 MG TAB PO SCH (08:43)
[2017-05-04] MEDS: NYSTATIN SUSP 500,000 U/5 ML UDC PO SCH ×2 (08:44→12:30)
[2017-05-04] MEDS: HYOSCYAMINE SULFATE 0.125 MG SL TAB PO SCH ×2 (08:46→14:44)
[2017-05-04] MEDS: MAGNESIUM HYDROXIDE SUSP 30 ML UDC PO PRN (09:14)
[2017-05-04 12:47] VITALS: BP 153/94; PULSE 63; TEMP 36.3; O2SAT 92
--- NOTE | 2017-05-04 15:00 | PROGRESS NOTE ---
DATE: 05/04/2017 DATE: 05/04/2017 Gladis actually looks better today. She feels a little better. Her headache is down to around a grade 5/10 from a 10/10. Overall, she feels fairly well. She is ready to go home. She tells me in retrospect, the IV Depacon last night may have taken "the edge" off the headache, but not for very long, and she is content now going home on steroids in the tapering course I outlined, the Topamax 100 mg twice a day and I be willing to see her in the office probably about 4-6 weeks to see how things are going. Between these protracted migrainous events, she usually has very few headaches, but last year she did something very similar with a prolonged migraine requiring hospitalization and she may well do this in the future. Right now her exam is normal. The studies have shown no structural lesions. CSF is clear, so I think the diagnosis of protracted migraine this time without aura is justified. JULIANA
--- NOTE | 2017-05-04 15:01 | Progress Note ---
Medicine Progress Note Date & Time of Visit: May 04, 2017 at 10:20 . Subjective Feels better. Headache improved. Appetite and nausea improved; no emesis. Ambulating. . Objective Last 8 Hrs Date Time Temp Pulse Resp B/P (MAP) Pulse Ox O2 Delivery O2 Flow Rate FiO2 05/04/17 12:47 36.3 63 18 92 Room Air 05/04/17 08:00 Room Air 05/04/17 07:06 36.3 63 18 153/94 (113) 92 Room Air Physical Exam: General- no distress Lungs- clear Heart- RRR Abdomen- + BS, soft, nontender Extremities- no pretibial edema or calf tenderness Neuro- alert, oriented . Assessment & Plan SYNCOPE 2 episodes of apparent syncope associated with urinary incontinence. Neuroimaging by CT and MRI showed previously noted/stable left frontal meningioma, no acute process. No arrhythmias noted on cardiac monitoring. EEG essentially negative. No recurrence. HEADACHE Neuroimaging negative as summarized above. CTA of head and neck negative. LP unremarkable. Probable migraine. Seen by Neuro. Started on prednisone 60 mg daily; taper per Neuro. Topiramate increased to 100 mg twice a day. MENINGIOMA CT and MRI demonstrated 1.4 cm mass on left frontal convexity consistent with a meningioma, unchanged compared to CT 03/23/16. Follow. PSORIATIC ARTHRITIS Continue apremilast. HYPOTHYROIDISM Continue levothyroxine. ORAL THRUSH Rx with nystatin susp. VTE PROPHYLAXIS SCDs initially ordered due to lumbar puncture. Enoxaparin started 04/30/17 Ambulate. DISPOSITION Discharge to home. Internal Medicine follow-up with Dr. Shell Pinon. . Consultants: Neurology . Procedures: CT head CTA head and neck MRI brain EEG cardiac monitoring IV meds . Current Inpatient Medications: Current Inpatient Medications Medications (Trade) Dose Ordered Sig/Monalisa Route Start Time Stop Time Status Last Admin Dose Admin Acetaminophen (Tylenol Tab) 650 mg Q4H PRN PO 04/29/17 19:30 05/29/17 19:29 05/03/17 15:12 650 MG Al Hydrox/Mg Hydrox/Simethicone (Maalox Max Susp) 15 ml Q4H PRN PO 04/29/17 19:30 05/29/17 19:29 Magnesium Hydroxide (Milk Of Magnesia Susp) 30 ml Q12H PRN PO 04/29/17 19:30 05/29/17 19:29 05/04/17 09:14 30 ML Nitroglycerin (Nitrostat Tab) 0.4 mg UD PRN SL 04/29/17 19:30 05/29/17 19:29 Albuterol (Ventolin Hfa Inhaler) 2 puffs Q6H PRN INH 04/29/17 19:30 05/29/17 19:29 Escitalopram Oxalate (Lexapro Tab) 20 mg DAILY PO 04/30/17 09:00 05/30/17 08:59 05/04/17 08:43 20 MG Hyoscyamine Sulfate (Levsin Tab) 0.125 mg TID PO 04/29/17 21:00 05/29/17 20:59 05/04/17 14:44 0.125 MG Levothyroxine Sodium (Synthroid Tab) 25 mcg DAILYBB PO 04/30/17 06:00 05/30/17 06:59 05/04/17 06:11 25 MCG Pantoprazole Sodium (Protonix Tab) 40 mg BID PO 04/29/17 21:00 05/29/17 20:59 05/04/17 08:42 40 MG Promethazine HCl (Phenergan Tab) 25 mg Q8 PRN PO 04/29/17 19:30 05/29/17 19:29 04/30/17 10:47 25 MG Sumatriptan Succinate (Imitrex Tab) 50 mg UD PRN PO 04/29/17 19:30 05/29/17 19:29 04/30/17 10:27 50 MG Trazodone HCl (Desyrel Tab) 50 mg HS PO 04/29/17 21:00 05/29/17 20:59 05/03/17 21:34 50 MG Miscellaneous Information (Order Awaiting Action) 1 ea QS N/A 04/30/17 00:00 05/30/17 00:00 04/30/17 00:00 1 EA Morphine Sulfate (MoRPHine SULFATE INJ) 3 mg Q3HWA PRN IV 04/29/17 19:30 05/13/17 19:29 04/30/17 04:26 3 MG Amitriptyline HCl (Elavil Tab) 20 mg HS PO 04/29/17 21:00 05/29/17 20:59 05/03/17 21:34 20 MG Miscellaneous (Iv Fluids Completed) 1 ea PRN PRN N/A 04/30/17 00:15 04/30/18 00:14 05/02/17 22:16 1 EA Lactobacillus Acidophilus (Floranex Tab) 2 tab BID PO 04/30/17 21:00 05/30/17 20:59 05/04/17 08:42 2 TAB Diphenhydramine HCl (Benadryl Inj) 25 mg Q6H PRN IV 04/30/17 18:00 05/30/17 17:59 05/04/17 06:10 25 MG Prednisone (PredniSONE TAB) 60 mg DAILY PO 05/01/17 09:00 05/31/17 08:59 05/04/17 08:43 60 MG Gadobutrol (Gadavist) 9 mmol UD PRN IV 04/30/17 23:45 05/04/17 23:44 Enoxaparin Sodium (Lovenox Inj) 40 mg HS SQ 05/01/17 21:00 05/31/17 20:59 05/03/17 21:33 40 MG Topiramate (Topamax Tab) 100 mg BID PO 05/01/17 21:00 05/31/17 20:59 05/04/17 08:43 100 MG Promethazine HCl 25 mg/Sodium Chloride 51 ml @ 204 mls/hr Q8H PRN IV 05/03/17 03:15 05/30/17 13:14 05/04/17 06:17 204 MLS/HR Hydromorphone HCl (Dilaudid Inj) 1 mg Q8H PRN IV 05/03/17 00:45 05/17/17 00:44 05/04/17 06:10 1 MG Nystatin (Mycostatin Susp) 5 ml QID PO 05/03/17 13:00 05/13/17 12:59 05/04/17 12:30 5 ML
[2017-05-04] MEDS ORDERED: PRED10TA PO (15:06)
[2017-05-04] MEDS ORDERED: TPM100 PO (15:06)
--- NOTE | 2017-05-04 15:13 | Discharge Instructions ---
Discharge Instructions Date of Service May 04, 2017. Admission Reason for Admission: headache . Discharge Discharge Diagnosis / Problem: severe migraine headache Discharge Goals Goal(s): Decrease discomfort, Improve disease control Activity Recommendations Activity Limitations: resume your previous activity . Instructions / Follow-Up Instructions / Follow-Up FOLLOW-UP APPOINTMENTS: INTERNAL MEDICINE 05/08/2017 1:00 PM Shell Pinon MD MEDICATION CHANGES: Increase topiramate (Topamax) to 100 mg twice a day Prednisone taper- 60 mg for 2 days 40 mg for 3 days 20 mg for 3 days 10 mg for 3 days then stop OTHER INSTRUCTIONS: Seek medical attention if you have: * temperature above 101 * chest pain or trouble breathing * abdominal pain, nausea, vomiting * diarrhea, dark stools or bloody stools * severe headache that does not improve with your usual medications * any unanswered questions or concerns Call 911 if symptoms are severe. Call if you have any questions or problems. You can reach a [facility] hospitalist on duty at [facility] 24 hours a day by calling [phone]. Please take good care of yourself. Melvin Woods . Current Hospital Diet Patient's current hospital diet: AHA Diet (Heart Healthy) Discharge Diet Recommended Diet: Regular Diet Procedures Procedures Performed: CT head MRI brain spinal tap Pending Studies Studies pending at discharge: no Work Instructions Return To Work: 3 days Additional Instructions: Gladis Link has been absent from work since 04/29/17 due to illness. Expected return to work date 05/07/17 without limitation. Medical Emergencies . Who to Call and When: Medical Emergencies: If at any time you feel your situation is an emergency, please call 911 immediately. . Non-Emergent Contact Non-Emergency issues call your: Primary Care Provider, Hospital Doctor . . "Provider Documentation" section prepared by Melvin Woods. . VTE Core Measure Inpt VTE Proph given/why not?: Enoxaparin (Lovenox)SQ, SCD's
--- NOTE | 2017-05-07 14:23 | Discharge Summary ---
Discharge Summary Date of Service May 07, 2017. Discharge Summary Admission Date: Apr 29, 2017 at 19:31 Discharge Date: May 04, 2017 Discharge Disposition: Home Principal Diagnosis: severe migraine headache syncope . Secondary Diagnoses/Problems: Chronic and Resolved Medical Problems: (1) Clostridium difficile colitis Status: Resolved (2) Depression Status: Chronic (3) Edema Status: Chronic (4) GERD (gastroesophageal reflux disease) Status: Chronic (5) History diabetes mellitus Permanent Comment: improved after gastric bypass Status: Resolved (6) History of DVT (deep vein thrombosis) Status: Chronic (7) History of pulmonary embolism Status: Resolved (8) MINI (iron deficiency anemia) Status: Chronic (9) Migraine headache Status: Chronic (10) Psoriatic arthritis Status: Chronic (11) Sleep apnea Status: Chronic Surgical Problems: (1) H/O wisdom tooth extraction Status: Chronic (2) History of carpal tunnel surgery Status: Chronic (3) S/P hysterectomy Status: Chronic (4) Status post appendectomy Status: Chronic (5) Status post cholecystectomy Status: Chronic (6) Status post gastric bypass for obesity Status: Chronic (7) Status post total knee replacement Status: Chronic . Procedures: CT head CTA head and neck MRI brain EEG cardiac monitoring IV meds . Consultations: Neurology . Medication Reconciliation New Medications: Prednisone Tab (Prednisone) 10 Mg Tab 0 PO UD, #33 TAB Taper daily [id number] Topiramate (Topiramate) 100 Mg Tab 100 MG PO BID, #60 TAB 5 Refills Continued Medications: Albuterol Hfa (Ventolin Hfa) 200 Puffs/32503 Mcg Aers 2 PUFFS INH Q6H PRN for Shortness of Breath Amitriptyline Hcl (Elavil) 10 Mg Tab 20 MG PO HS, #30 Apremilast (Otezla) 30 Mg Tab 30 MG PO BID Ergocalciferol (Vitamin D 12154 Unit) 50,000 Unit Cap 24165 INTER.UNIT PO 2XWK TAKE THIS MEDICATION EVERY SUNDAY AND SUNDAY Escitalopram Oxalate (Escitalopram Oxalate) 20 Mg Tab 20 MG PO DAILY Hyoscyamine Sulfate (Levsin) 0.125 Mg Tab 0.125 MG PO TID Levothyroxine Sodium (Levothyroxine Sodium) 25 Mcg Tab 25 MCG PO DAILY Ondansetron Odt (Zofran Odt) 8 Mg Soltab 8 MG SL Q8 PRN for Nausea, TAB PLACE TABLET ON TONGUE AND ALLOW TO DISSOLVE Pantoprazole (Pantoprazole Sodium) 40 Mg Tab 40 MG PO BID Promethazine HCl (Promethazine HCl) 25 Mg Tab 25 MG PO Q8 PRN for Nausea or Vomiting Sumatriptan Succinate (Sumatriptan Succinate) 50 Mg Tab 50 MG PO UD PRN for Migraine TAKE 1 TABLET AT ONSET OF HEADACHE MAY REPEAT IN 2 HOURS IF NEEDED.MAXIMUM OF 2 TABLETS IN 24 HOURS. Trazodone Hcl (Trazodone) 50 Mg Tab 50 MG PO HS Discontinued Medications: Topiramate (Topiramate) 25 Mg Tab 75 MG PO BID Admission Information HPI (per Admitting provider): This is a 52-year-old female with past medical history significant for psoriatic arthropathy, GERD with esophagitis, gastric bypass surgeries, post-gastric surgery syndromes, DOMINGUEZ, history of C. diff, history of PE and no longer on Coumadin, presents with episodes of syncope. The patient says today she passed out, she does not know how long she passed out because she was alone at workplace . But on the video her co workers saw and came woken her up. After she woke up, she was confused for 1 or 2 minutes and then she was normal, but she noticed she was incontinent with urine. She thought this is fine and she went home, but on her driveway, she again had incontinence of urine and when she went home, again she passed out and at that time she came to the ER. She also noticed severe right-sided headaches. She has migraines, but is different from her usual migraine headaches; it was very severe and also radiating to her neck. In the ER, a CT angiogram of the head and neck was fine and LP was fine. The patient had some blurred vision during episode, but she is okay now. Still nauseous, no vomiting, mild abdominal discomfort. No chest pain, no shortness of breath, no cough, no fever, no chills. Denies any diarrhea or constipation, no blood in the stools, normal bladder movements. No blood in the urine. No swelling in the lower extremities. She lives with her family and prior to this episode she was doing okay. Patient is currently resting comfortably and hemodynamically stable except for nausea and headaches, no other complaints. . Physical Exam (per Admitting): GENERAL: The patient is obese, not in distress. VITAL SIGNS: Temperature 36.7, pulse 60, respiratory rate 20, blood pressure 131/75, oxygen 98% on room air. HEENT: No pallor, no icterus. Pupils equal, round, and reactive to light. NECK: No JVD, no neck masses, no carotid bruits. CARDIOVASCULAR: S1, S2 heard, regular rate and rhythm, no murmur, no gallop. RESPIRATORY SYSTEM: Normal AP diameter. No accessory muscle use. No wheezing, no crackles. ABDOMEN: Soft, bowel sounds present. Mild epigastric discomfort. No guarding, no rigidity. No distention. CENTRAL NERVOUS SYSTEM: Cranial nerves II-XII grossly intact. Nonfocal. EXTREMITIES: No edema, no erythema. . Hospital Course SYNCOPE 2 episodes of apparent syncope associated with urinary incontinence. Neuroimaging by CT and MRI showed previously noted/stable left frontal meningioma, no acute process. No arrhythmias noted on cardiac monitoring. EEG essentially negative. No recurrence. HEADACHE Neuroimaging negative as summarized above. CTA of head and neck negative. LP unremarkable. Probable migraine. Seen by Neuro. Started on prednisone 60 mg daily; taper per Neuro. Topiramate increased to 100 mg twice a day. MENINGIOMA CT and MRI demonstrated 1.4 cm mass on left frontal convexity consistent with a meningioma, unchanged compared to CT 03/23/16. Follow. PSORIATIC ARTHRITIS Continue apremilast. HYPOTHYROIDISM Continue levothyroxine. ORAL THRUSH Rx with nystatin susp. VTE PROPHYLAXIS SCDs initially ordered due to lumbar puncture. Enoxaparin started 04/30/17 Ambulate. DISPOSITION Discharge to home. Internal Medicine follow-up with Dr. Shell Pinon. . Discharge Instructions Discharge Instructions Date of Service May 04, 2017. Admission Reason for Admission: headache . Discharge Discharge Diagnosis / Problem: severe migraine headache Discharge Goals Goal(s): Decrease discomfort, Improve disease control Activity Recommendations Activity Limitations: resume your previous activity . Instructions / Follow-Up Instructions / Follow-Up FOLLOW-UP APPOINTMENTS: INTERNAL MEDICINE 05/08/2017 1:00 PM Shell Pinon MD MEDICATION CHANGES: Increase topiramate (Topamax) to 100 mg twice a day Prednisone taper- 60 mg for 2 days 40 mg for 3 days 20 mg for 3 days 10 mg for 3 days then stop OTHER INSTRUCTIONS: Seek medical attention if you have: * temperature above 101 * chest pain or trouble breathing * abdominal pain, nausea, vomiting * diarrhea, dark stools or bloody stools * severe headache that does not improve with your usual medications * any unanswered questions or concerns Call 911 if symptoms are severe. Call if you have any questions or problems. You can reach a [facility] hospitalist on duty at [facility] 24 hours a day by calling [phone]. Please take good care of yourself. Melvin Woods . Current Hospital Diet Patient's current hospital diet: AHA Diet (Heart Healthy) Discharge Diet Recommended Diet: Regular Diet Procedures Procedures Performed: CT head MRI brain spinal tap Pending Studies Studies pending at discharge: no Work Instructions Return To Work: 3 days Additional Instructions: Gladis Link has been absent from work since 04/29/17 due to illness. Expected return to work date 05/07/17 without limitation. Medical Emergencies . Who to Call and When: Medical Emergencies: If at any time you feel your situation is an emergency, please call 911 immediately. . Non-Emergent Contact Non-Emergency issues call your: Primary Care Provider, Hospital Doctor . . "Provider Documentation" section prepared by Melvin Woods. . VTE Core Measure Inpt VTE Proph given/why not?: Enoxaparin (Lovenox)SQ, SCD's .
[2017-05-17] MEDS ORDERED: AMIT10TA6 PO (12:05)
[2017-05-17] MEDS ORDERED: NCY50 PO (12:05)
[2017-05-17] MEDS ORDERED: ONDA8TAB62 SL (12:05)
[2017-05-17] MEDS ORDERED: CYM30 PO (12:05)
[2017-05-24] MEDS ORDERED: MAGN400T7 PO (14:42)
== END 2017-05-04 15:38 | disposition home or self-care (01) ==
LOC: C.EDB 13:53 → C.2T 19:31 → ENRESERV 19:44 → C.MS2W 05-01 11:13
PROVIDERS: ADMIT Internal Medicine; ATTEND Hospitalist
DX: R55 Syncope and collapse (principal); R51 Headache; R15.9 Full incontinence of feces; R32 Unspecified urinary incontinence; Z86.711 Personal history of pulmonary embolism; L40.50 Arthropathic psoriasis, unspecified; Z86.718 Personal history of other venous thrombosis and embolism; Z79.899 Other long term (current) drug therapy; Z98.84 Bariatric surgery status

== ENCOUNTER 2017-05-09 10:44 | Observation (INO) | payer BC ==
[~2017-05-09] VITALS: Ht 165.1 cm; Wt 85.5 kg
[~2017-05-09 10:44] MED LIST changes: +AMIT10TA6 PO; -AMOX875T PO; +ERGO1CAP41 PO; +HYOS1TAB PO; +IMT50 PO; +LEVO25TA5 PO; +LXP/20 PO; -ONDA4TAB9 PO; +ONDA8TAB62 SL; +PRED10TA PO; +PROM25TA16 PO; +PRT/40 PO; +TPM100 PO; +TRAZ50TA35 PO
[2017-05-09] MEDS ORDERED: DiphenhydrAMINE HCL 50 MG/ML VIAL IV STA (11:38)
[2017-05-09] MEDS ORDERED: SODIUM CHLORIDE 0.9% 1000ML 1,000 ML IV STA ×2 (11:38→14:35)
[2017-05-09] MEDS ORDERED: METOCLOPRAMIDE HCL INJ 5 MG/ML 2 ML VIAL IV STA (11:38)
--- NOTE | 2017-05-09 11:46 | EMERGENCY ROOM VISIT NOTE ---
History Report prepared by Leon: Susy Ferguson Under the Supervision of: Dr. Sam St M.D. First contact with patient: 11:29 Chief Complaint: SYNCOPE (NEAR SYNCOPE) Stated Complaint: PASSED OUT AT WORK, DIZZY, HEADACHE Nursing Triage Summary: Pt c/o migraine and dizziness with a syncopal event, co-worker helped her to the ground. Diarrhea. Hx of C. diff. Also c/o left sided groin pain. Hx of syncopal events and blood clots per the pt. History of Present Illness The patient is a 52 year old female who presents to the Emergency Room with complaints of a sudden syncopal episode that occurred prior to arrival. She currently rates her discomfort as a 10/10 in severity. The patient states that she was walking down the stairs today when she suddenly became dizzy and had a syncopal episode. She denies hitting her head, noting that she was told that she slumped down on the stairs. The patient states that she was told that she was down for 5-7 minutes. She states that when she regained consciousness, she had a migraine-headache. The patient states that it feels like her head is going to explode. She reports a history of migraines, noting that she is on Topamax and follows with neurology. The patient states that she was just discharged from the hospital last Sunday after being evaluated for five days. She states that she presented to the emergency department with dizziness that she described as a room spinning sensation and a right sided migraine. The patient states that she was feeling better upon discharge, but states that she was still having dizzy spells and a migraine headache. She states that the neurologist believed her symptoms to be a cause of a major migraine. The patient states that the migraine she is experiencing now is the worse than before. She states that she is experiencing nausea as well. The patient states that she has been experiencing diarrhea, stating that she has a history of c-diff. She denies being on any antibiotics while in the hospital. The patient reports a history of blood clots in her lungs. She states that it was after a recent hospitalization. The patient states that she was on anti- coagulants for 6 months, but denies being on them currently. She states that she has developed intermittent cramps in her right groin. The patient reports that she has tried taking Imitrex for her migraine without relief of her symptoms on Sunday, but has not tried a second time. She denies any urinary symptoms. The patient additionally reports bilateral arm numbness. Source of History: patient Onset: prior to arrival Position: other (global) Symptom Intensity: 06/19 Quality: other (syncopal episode) Timing: other (sudden) Associated Symptoms: + LOC, + headache (migraine), + nausea, + diarrhea, + numbness (bilateral arm), No urinary symptoms Note: Associated Symptoms: dizziness, cramps in right groin Review of Systems See HPI for pertinent positives and negatives. A total of ten systems were reviewed and were otherwise negative. Past Medical & Surgical Medical Problems: (1) Clostridium difficile colitis (2) Depression (3) Edema (4) GERD (gastroesophageal reflux disease) (5) History diabetes mellitus (6) History of DVT (deep vein thrombosis) (7) History of pulmonary embolism (8) MINI (iron deficiency anemia) (9) Intractable headache (10) Intractable migraine (11) Migraine headache (12) Psoriatic arthritis (13) Pulmonary embolism (14) Sleep apnea (15) Syncope Surgical Problems: (1) H/O wisdom tooth extraction (2) History of carpal tunnel surgery (3) S/P hysterectomy (4) Status post appendectomy (5) Status post cholecystectomy (6) Status post gastric bypass for obesity (7) Status post total knee replacement Family History FHx: rheumatoid arthritis MOTHER GRANDMOTHER Social History Smoking Status: Never Smoker Alcohol Use: none Drug Use: none Marital Status: Housing Status: lives with family Current/Historical Medications Scheduled Amitriptyline Hcl (Elavil), 20 MG PO HS Apremilast (Otezla), 30 MG PO BID Ergocalciferol (Vitamin D 91245 Unit), 50,000 INTER.UNIT PO 2XWK Escitalopram Oxalate (Escitalopram Oxalate), 20 MG PO DAILY Hyoscyamine Sulfate (Levsin), 0.125 MG PO TID Levothyroxine Sodium (Levothyroxine Sodium), 25 MCG PO DAILY Pantoprazole (Pantoprazole Sodium), 40 MG PO BID Prednisone Tab (Prednisone), 0 PO UD Topiramate (Topiramate), 100 MG PO BID Trazodone Hcl (Trazodone), 50 MG PO HS Scheduled PRN Albuterol Hfa (Ventolin Hfa), 2 PUFFS INH Q6H PRN for Shortness of Breath Ondansetron Odt (Zofran Odt), 8 MG SL Q8 PRN for Nausea Promethazine HCl (Promethazine HCl), 25 MG PO Q8 PRN for Nausea or Vomiting Sumatriptan Succinate (Sumatriptan Succinate), 50 MG PO UD PRN for Migraine Allergies Coded Allergies: Oxycodone (Verified Allergy, Intermediate, HIVES, 05/09/17) Vancomycin (Verified Adverse Reaction, Unknown, SEE TEXT. . ., 05/09/17) PT STARTED IV VANC TODAY FOR POSSIBLE OSTEOMYELITIS OF RIGHT FOOT. ALSO ON TIMENTIN 3.1G IV Q6H FROM 03/24/08. PHARM'KINETIC VANC CONSULT PATIENT ORDERED VANC 3G IV Q18H IN 560ML TOTAL VOLUME NSS (~5.3MG/ML). AFTER RECEIVING 136ML PT DEVELOPED BODY ITCHING (NO RASH/REDNESS). KAY TEJADA RN CONTACTED DR BANEGAS AND INSTRUCTED TO D/C VANC AND GIVE BENADRYL 50MG PO X1. 03/27/08 @ 1000: SPOKE WITH DR RUIZ: FEELS THIS IS AN INFUSION RELATED RXN BUT CLINICALLY PT IS DOING WORSE AND IS D/C TIMENTIN/VANC AND STARTING TYGACIL. IS THIS AN INFUSION RELATED RXN OR TRUE ALLERGY? I PUT CALL INTO DR BANEGAS TO FURTHER DISCUSS. NO CALL BACK OF TIME OF DOCUMENTATION. AJ Physical Exam Vital Signs Date Time Temp Pulse Resp B/P (MAP) Pulse Ox O2 Delivery O2 Flow Rate FiO2 05/09/17 16:25 75 20 137/85 99 Room Air 05/09/17 14:30 75 20 134/88 98 Room Air 05/09/17 12:30 79 18 146/88 97 Room Air 05/09/17 11:30 98 Room Air 05/09/17 11:21 75 05/09/17 10:56 36.7 73 18 124/86 97 Room Air Physical Exam GENERAL: Awake, alert, uncomfortable-appearing, in no distress HENT: Normocephalic, atraumatic. Dry mucous membranes. EYES: Normal conjunctiva. Sclera non-icteric. NECK: Supple. No nuchal rigidity. FROM. No JVD. RESPIRATORY: Clear to auscultation. CARDIAC: Regular rate, normal rhythm. Extremities warm and well perfused. Pulses equal. ABDOMEN: Soft, non-distended. No tenderness to palpation. No rebound or guarding. No masses. RECTAL: Deferred. MUSCULOSKELETAL: Chest examination reveals no tenderness. The back is symmetrical on inspection without obvious abnormality. There is no CVA tenderness to palpation. No joint edema. LOWER EXTREMITIES: Calves are equal size bilaterally and non-tender. No edema. No discoloration. NEURO: Normal sensorium. No sensory or motor deficits noted. Cerebellar intact. SKIN: No rash or jaundice noted. Medical Decision & Procedures ER Provider Diagnostic Interpretation: Radiology results as stated below per my review and radiologist interpretation: CT OF THE HEAD WITHOUT CONTRAST CLINICAL HISTORY: Severe migraine headache. COMPARISON STUDY: Head combo April 29, 2017 and MRI of the brain April 30, 2017. CT DOSE: 537.48 mGy.cm TECHNIQUE: Helical axial images of the head were obtained without IV contrast. Automated exposure control was utilized for the study. A dose lowering technique was utilized adhering to the principles of ALARA. FINDINGS: No acute intracranial hemorrhage, midline shift or mass effect is present. The 1.3 cm left frontal parafalcine meningioma is unchanged. Ventricular system is normal. Basilar cisterns are patent. There are no extra-axial collections. Escobar-white differentiation is maintained. There are no findings to suggest acute dural sinus thrombosis or acute territorial infarct. There are no significant calvarial abnormalities. Visualized portions of the sinuses and mastoid air cells are clear. IMPRESSION: 1. No acute intracranial findings. 2. No change in the 1.3 cm left frontal parafalcine meningioma. Electronically signed by: Yang Hansen M.D. 05/09/2017 12:21 PM Dictated Date/Time: 05/09/2017 12:16 PM CHEST ONE VIEW PORTABLE HISTORY: Atypical CHEST PAIN. Dizziness. Headache. COMPARISON: Chest 04/22/2017. FINDINGS: The lungs are clear. Cardiac silhouette is normal in size. No pleural effusions. No pneumothorax. IMPRESSION: No acute process. Electronically signed by: Rob Wasserman M.D. 05/09/2017 12:14 PM Dictated Date/Time: 05/09/2017 12:09 PM Laboratory Results 05/09/17 11:25 Red Blood Count 4.25, Mean Corpuscular Volume 88.0, Mean Corpuscular Hemoglobin 30.6, Mean Corpuscular Hemoglobin Concent 34.8, Mean Platelet Volume 9.3, Neutrophils (%) (Auto) 52.8, Lymphocytes (%) (Auto) 37.2, Monocytes (%) (Auto) 8.4, Eosinophils (%) (Auto) 0.8, Basophils (%) (Auto) 0.3, Neutrophils # (Auto) 6.84, Lymphocytes # (Auto) 4.83, Monocytes # (Auto) 1.09, Eosinophils # (Auto) 0.10, Basophils # (Auto) 0.04 05/09/17 11:25 Test 05/09/17 11:25 05/09/17 11:30 White Blood Count 12.97 K/uL (4.8-10.8) Red Blood Count 4.25 M/uL (4.2-5.4) Hemoglobin 13.0 g/dL (12.0-16.0) Hematocrit 37.4 % (37-47) Mean Corpuscular Volume 88.0 fL (80-100) Mean Corpuscular Hemoglobin 30.6 pg (25-34) Mean Corpuscular Hemoglobin Concent 34.8 g/dl (32-36) Platelet Count 303 K/uL (130-400) Mean Platelet Volume 9.3 fL (7.4-10.4) Neutrophils (%) (Auto) 52.8 % Lymphocytes (%) (Auto) 37.2 % Monocytes (%) (Auto) 8.4 % Eosinophils (%) (Auto) 0.8 % Basophils (%) (Auto) 0.3 % Neutrophils # (Auto) 6.84 K/uL (1.4-6.5) Lymphocytes # (Auto) 4.83 K/uL (1.2-3.4) Monocytes # (Auto) 1.09 K/uL (0.11-0.59) Eosinophils # (Auto) 0.10 K/uL (0-0.5) Basophils # (Auto) 0.04 K/uL (0-0.2) RDW Standard Deviation 47.3 fL (36.4-46.3) RDW Coefficient of Variation 14.8 % (11.5-14.5) Immature Granulocyte % (Auto) 0.5 % Immature Granulocyte # (Auto) 0.07 K/uL (0.00-0.02) D-Dimer 210 ug/L FEU (0-500) Anion Gap 9.0 mmol/L (3-11) Estimated GFR () 96.9 Estimated GFR (Non- 83.6 BUN/Creatinine Ratio 14.6 (10-20) Calcium Level 8.9 mg/dl (8.5-10.1) Phosphorus Level 3.4 mg/dl (2.5-4.9) Magnesium Level 2.3 mg/dl (1.8-2.4) Total Bilirubin 0.4 mg/dl (0.2-1) Direct Bilirubin < 0.1 mg/dl (0-0.2) Aspartate Amino Transf (AST/SGOT) 9 U/L (15-37) Alanine Aminotransferase (ALT/SGPT) 19 U/L (12-78) Alkaline Phosphatase 104 U/L (45-117) Total Creatine Kinase 25 U/L (26-192) Troponin I < 0.015 ng/ml (0-0.045) Total Protein 6.3 gm/dl (6.4-8.2) Albumin 3.6 gm/dl (3.4-5.0) Lipase 102 U/L (73-393) Urine Color YELLOW Urine Appearance CLEAR (CLEAR) Urine pH 6.0 (4.5-7.5) Urine Specific [place] 1.015 (1.000-1.030) Urine Protein NEG (NEG) Urine Glucose (UA) NEG (NEG) Urine Ketones NEG (NEG) Urine Occult Blood NEG (NEG) Urine Nitrite NEG (NEG) Urine Bilirubin NEG (NEG) Urine Urobilinogen NEG (NEG) Urine Leukocyte Esterase TRACE (NEG) Urine WBC (Auto) 1-5 /hpf (0-5) Urine RBC (Auto) 0-4 /hpf (0-4) Urine Hyaline Casts (Auto) 1-5 /lpf (0-5) Urine Epithelial Cells (Auto) >30 /lpf (0-5) Urine Bacteria (Auto) NEG (NEG) Laboratory results reviewed by me Medications Administered Medications (Trade) Dose Ordered Sig/Monalisa Route Start Time Stop Time Status Last Admin Dose Admin Sodium Chloride 1,000 ml @ 999 mls/hr Q1H1M STAT IV 05/09/17 11:38 05/09/17 12:38 DC 05/09/17 11:38 999 MLS/HR Metoclopramide HCl (Reglan Inj) 10 mg NOW STAT IV 05/09/17 11:38 05/09/17 11:42 DC 05/09/17 11:50 10 MG Diphenhydramine HCl (Benadryl Inj) 25 mg NOW STAT IV 05/09/17 11:38 05/09/17 11:42 DC 05/09/17 11:50 25 MG Ketorolac Tromethamine (Toradol Inj) 30 mg NOW STAT IV 05/09/17 14:35 05/09/17 14:38 DC 05/09/17 15:39 30 MG Haloperidol Lactate (Haldol Inj) 5 mg NOW STAT IV 05/09/17 14:35 05/09/17 14:38 DC 05/09/17 15:39 5 MG Sodium Chloride 1,000 ml @ 999 mls/hr Q1H1M STAT IV 05/09/17 14:35 05/09/17 15:35 DC 05/09/17 14:35 999 MLS/HR ECG Indication: syncope Rate (beats per minute): 77 Rhythm: normal sinus Findings: Q waves (Inferior), no acute ischemic change, other (normal axis, normal intervals) Comparison ECG Date: 05/01/17 Change: no significant change ED Course 1133: The patient was evaluated in room C3. A complete history and physical exam was performed. 1138: Ordered Benadryl Inj 25 mg IV, Reglan Inj 10 mg IV, Sodium Chloride 1000 ml @ 999 mls/hr IV. 1428: I reevaluated the patient and she does not feel any better. She is going to get some Haldol. 1435: Ordered Haldol Inj 5 mg IV, Toradol Inj 30 mg IV. Medical Decision Differential diagnosis: Etiologies such as vasovagal event, infection, hypoglycemia, electrolyte abnormalities, cardiac sources, intracerebral event, toxicologic, neurologic, as well as others were entertained. I reviewed the patient's past medical history, medications, and the nursing notes as described above. Patient is a 52-year-old woman with a past medical history of severe migraines recently admitted for the same and had negative workup including MRI of the brain CTA of the head and neck and random EEG resents emergency department after having a syncopal episode in the setting of persistence of her severe migraines since discharge per history of present illness. On arrival the patient appears uncomfortable but in no acute distress. Afebrile stable vital signs. On exam the patient is neurologically intact. Head is atraumatic and normocephalic. However in the setting of this syncopal episode with unclear head strike, CT head was done and was negative for acute findings. EKG and troponin unremarkable. Labs otherwise also unremarkable with a negative urine. Chest x-ray negative. On re-evaluation the patient reports no improvement in her headache symptoms thus we'll attempt additional migraine treatment with fluids and Haldol. If patient continues without improvement admission for pain control may be required. Patient reevaluated after additional fluids, Haldol, and Toradol reports no improvement in her headache. The patient feels her pain is too severe to go home. Thus, case discussed with the medicine team and they will admit the patient for further management. Medication Reconcilliation Current Medication List: was personally reviewed by me Impression Primary Impression: Intractable migraine Additional Impression: Syncope Scribe Attestation The scribe's documentation has been prepared under my direction and personally reviewed by me in its entirety. I confirm that the note above accurately reflects all work, treatment, procedures, and medical decision making performed by me. Departure Information Referrals Shell Pinon M.D. (PCP) Patient Instructions [facility] Problem Qualifiers
[2017-05-09 12:12] LABS: URINE APPEARANCE CLEAR (CLEAR); URINE BILIRUBIN NEG (NEG); URINE COLOR YELLOW; URINE EPITHELIAL CELL AUTO >30 /lpf (0-5); URINE NITRITE NEG (NEG); URINE SPECIFIC GRAVITY 1.015 (1.000-1.030); UROBILINOGEN NEG (NEG); ZZUR CULT IF INDIC CLEAN CATCH NO
[2017-05-09 12:15] LABS: MANUAL MICROSCOPIC REQUIRED? NO; REVIEW REQ? NO
--- NOTE | 2017-05-09 12:15 | DIAGNOSTIC IMAGING REPORT ---
CHEST ONE VIEW PORTABLE HISTORY: Atypical CHEST PAIN. Dizziness. Headache. COMPARISON: Chest 04/22/2017. FINDINGS: The lungs are clear. Cardiac silhouette is normal in size. No pleural effusions. No pneumothorax. IMPRESSION: No acute process. Electronically signed by: Rob Wasserman M.D. 05/09/2017 12:14 PM Dictated Date/Time: 05/09/2017 12:09 PM
--- NOTE | 2017-05-09 12:22 | DIAGNOSTIC IMAGING REPORT ---
CT OF THE HEAD WITHOUT CONTRAST CLINICAL HISTORY: Severe migraine headache. COMPARISON STUDY: Head combo April 29, 2017 and MRI of the brain April 30, 2017. CT DOSE: 537.48 mGy.cm TECHNIQUE: Helical axial images of the head were obtained without IV contrast. Automated exposure control was utilized for the study. A dose lowering technique was utilized adhering to the principles of ALARA. FINDINGS: No acute intracranial hemorrhage, midline shift or mass effect is present. The 1.3 cm left frontal parafalcine meningioma is unchanged. Ventricular system is normal. Basilar cisterns are patent. There are no extra-axial collections. Escobar-white differentiation is maintained. There are no findings to suggest acute dural sinus thrombosis or acute territorial infarct. There are no significant calvarial abnormalities. Visualized portions of the sinuses and mastoid air cells are clear. IMPRESSION: 1. No acute intracranial findings. 2. No change in the 1.3 cm left frontal parafalcine meningioma. Electronically signed by: Yang Hansen M.D. 05/09/2017 12:21 PM Dictated Date/Time: 05/09/2017 12:16 PM
[2017-05-09 12:41] LABS: BASO % 0.3 %; BASO ABS # 0.04 K/uL (0-0.2); COMPLETE YES; EOS % 0.8 %; HEMATOCRIT 37.4 % (37-47); IG% 0.5 %; LYMPH % 37.2 %; LYMPH ABS # 4.83 K/uL (1.2-3.4); MEAN CORPUSCULAR HEMOGLOBIN 30.6 pg (25-34); MEAN CORPUSCULAR HGB CONC 34.8 g/dl (32-36); MEAN PLATELET VOLUME 9.3 fL (7.4-10.4); MONO % 8.4 %; NEUT % 52.8 %; PLATELET COUNT 303 K/uL (130-400); RED BLOOD COUNT 4.25 M/uL (4.2-5.4); WHITE BLOOD COUNT 12.97 K/uL (4.8-10.8)
[2017-05-09 12:51] LABS: MAGNESIUM 2.3 mg/dl (1.8-2.4); PHOSPHORUS 3.4 mg/dl (2.5-4.9)
[2017-05-09 14:20] LABS: ALT/SGPT 19 U/L (12-78); BLOOD UREA NITROGEN 12 mg/dl (7-18); BUN/CREATININE RATIO 14.6 (10-20); CALCIUM 8.9 mg/dl (8.5-10.1); CARBON DIOXIDE 24 mmol/L (21-32); CHLORIDE 109 mmol/L (98-107); GLUCOSE 74 mg/dl (70-99); POTASSIUM 3.7 mmol/L (3.5-5.1); SODIUM 142 mmol/L (136-145)
[2017-05-09 14:25] LABS: ALKALINE PHOSPHATASE 104 U/L (45-117); AST/SGOT 9 U/L (15-37)
[2017-05-09] MEDS ORDERED: KETOROLAC TROMETHAMINE 30 MG/ML VIAL IV STA (14:35)
[2017-05-09] MEDS ORDERED: HALOPERIDOL LACTATE 5 MG/ML 1 ML VIAL IV STA (14:35)
[2017-05-09] MEDS ORDERED: ACETAMINOPHEN 325 MG TAB PO PRN (17:30)
[2017-05-09 17:59] VITALS: BP 144/93; PULSE 80; TEMP 36.8; O2SAT 99; Ht 165.1 cm; Wt 85.5 kg
[2017-05-09] MEDS ORDERED: BUTALBITAL/ACETAMIN/CAFFEINE TAB PO STA (18:08)
[2017-05-09] MEDS ORDERED: IV FLUIDS COMPLETED PRN (18:15)
[2017-05-09] MEDS ORDERED: ALBUTEROL HFA 8 GM INHALER INH PRN (18:45)
[2017-05-09 19:15] VITALS: BP 144/93; PULSE 80; TEMP 36.8; O2SAT 99
--- NOTE | 2017-05-09 19:16 | History and Physical ---
History & Physical Date & Time of Service: May 09, 2017 at 19:14 Chief Complaint: Passed Out At Work, Dizzy, Headache Primary Care Physician: Shell Pinon M.D. History of Present Illness This is a 52yo woman with a PMH of migraine headaches, psoriatic arthritis, hypothyroidism, h/o DVTs who presents after a syncopal episodes earlier today. Patient was at work and became dizzy when walking down the stairs. Experienced a prodrome including blurred vision and feeling like she is "in a tunnel". Was witnessed by coworkers to slump down to a seated position and was unresponsive for 5 minutes. Denies having and bladder incontinence during that time. Was picked up by her and once returned home, developed a new onset, 10/10 headache that felt like her head was "exploding". Associated nausea with 2 episodes of vomiting as well as ongoing dizziness. Denies any focal neurologic deficits. Patient was recently seen at [facility] and discharged 05/04 for similar syncopal episodes and a severe migraine. During her 5 day stay patient underwent a CT head, MRI and LP that were negative for any acute findings. Has a 1.3cm frontal meningioma that has remained unchanged. Was seen by Dr. Rowell, her neurologist , and was discharged on a prednisone taper and an increased daily dose of Topamax. Once patient returned home on Sunday, she continued to have a "small headache" throughout the weekend up until this morning. However, patient felt well enough to go to work the past 3 days up until today's syncopal episode. Still endorses 10/10 headache pain, photophobia, mild dizziness, mild nausea and L groin "cramping" pain. Denies confusion, visual changes, CP, SOB, vomiting , LE swelling. ED course included IVF, antiemetics, Toradol and Haldol. Headache still persisting with 10/10 pain. Past Medical/Surgical History Medical Problems: (1) Clostridium difficile colitis Status: Resolved (2) Depression Status: Chronic (3) Edema Status: Chronic (4) GERD (gastroesophageal reflux disease) Status: Chronic (5) History diabetes mellitus Permanent Comment: improved after gastric bypass Status: Resolved (6) History of DVT (deep vein thrombosis) Status: Chronic (7) History of pulmonary embolism Status: Resolved (8) MINI (iron deficiency anemia) Status: Chronic (9) Migraine headache Status: Chronic (10) Psoriatic arthritis Status: Chronic (11) Sleep apnea Status: Chronic Surgical Problems: (1) H/O wisdom tooth extraction Status: Chronic (2) History of carpal tunnel surgery Status: Chronic (3) S/P hysterectomy Status: Chronic (4) Status post appendectomy Status: Chronic (5) Status post cholecystectomy Status: Chronic (6) Status post gastric bypass for obesity Status: Chronic (7) Status post total knee replacement Status: Chronic Family History FHx: rheumatoid arthritis MOTHER GRANDMOTHER Social History Smoking Status: Never Smoker Drug Use: none Marital Status: Housing status: lives with significant other Immunizations History of Influenza Vaccine: Yes Influenza Vaccine Date: Jun 22, 2016 History of Tetanus Vaccine?: Yes Tetanus Immunization Date: Dec 01, 2015 History of Pneumococcal: Yes Pneumococcal Date: Jun 22, 2008 Multi-Drug Resistant Organisms History of MDRO: No Allergies Coded Allergies: Oxycodone (Verified Allergy, Intermediate, HIVES, 05/09/17) Vancomycin (Verified Adverse Reaction, Unknown, SEE TEXT. . ., 05/09/17) PT STARTED IV VANC TODAY FOR POSSIBLE OSTEOMYELITIS OF RIGHT FOOT. ALSO ON TIMENTIN 3.1G IV Q6H FROM 03/24/08. PHARM'KINETIC VANC CONSULT PATIENT ORDERED VANC 3G IV Q18H IN 560ML TOTAL VOLUME NSS (~5.3MG/ML). AFTER RECEIVING 136ML PT DEVELOPED BODY ITCHING (NO RASH/REDNESS). KAY TEJADA RN CONTACTED DR BANEGAS AND INSTRUCTED TO D/C VANC AND GIVE BENADRYL 50MG PO X1. 03/27/08 @ 1000: SPOKE WITH DR RUIZ: FEELS THIS IS AN INFUSION RELATED RXN BUT CLINICALLY PT IS DOING WORSE AND IS D/C TIMENTIN/VANC AND STARTING TYGACIL. IS THIS AN INFUSION RELATED RXN OR TRUE ALLERGY? I PUT CALL INTO DR BANEGAS TO FURTHER DISCUSS. NO CALL BACK OF TIME OF DOCUMENTATION. AJ Home Medications Scheduled Amitriptyline Hcl (Elavil), 20 MG PO HS Apremilast (Otezla), 30 MG PO BID Ergocalciferol (Vitamin D 80115 Unit), 50,000 INTER.UNIT PO 2XWK Escitalopram Oxalate (Escitalopram Oxalate), 20 MG PO DAILY Hyoscyamine Sulfate (Levsin), 0.125 MG PO TID Levothyroxine Sodium (Levothyroxine Sodium), 25 MCG PO DAILY Pantoprazole (Pantoprazole Sodium), 40 MG PO BID Prednisone Tab (Prednisone), 0 PO UD Topiramate (Topiramate), 100 MG PO BID Trazodone Hcl (Trazodone), 50 MG PO HS Scheduled PRN Albuterol Hfa (Ventolin Hfa), 2 PUFFS INH Q6H PRN for Shortness of Breath Ondansetron Odt (Zofran Odt), 8 MG SL Q8 PRN for Nausea Promethazine HCl (Promethazine HCl), 25 MG PO Q8 PRN for Nausea or Vomiting Sumatriptan Succinate (Sumatriptan Succinate), 50 MG PO UD PRN for Migraine Review of Systems Ten systems reviewed and negative except as noted in the HPI. Physical Exam Vital Signs Date Time Temp Pulse Resp B/P (MAP) Pulse Ox O2 Delivery O2 Flow Rate FiO2 05/09/17 18:13 70 18 153/100 96 Room Air 05/09/17 16:25 75 20 137/85 99 Room Air 05/09/17 14:30 75 20 134/88 98 Room Air 05/09/17 12:30 79 18 146/88 97 Room Air 05/09/17 11:30 98 Room Air 05/09/17 11:21 75 05/09/17 10:56 36.7 73 18 124/86 97 Room Air General Appearance: + moderate distress (Patient covering her eyes 2/2 photophobia. Able to converse and cooperate with exam. 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, no motor/sensory deficits, alert, normal mood/affect, oriented x 3 Skin: normal color, warm/dry Diagnostics Laboratory Results Results Past 24 Hours Test 05/09/17 11:25 05/09/17 11:30 Range/Units White Blood Count 12.97 4.8-10.8 K/uL Red Blood Count 4.25 4.2-5.4 M/uL Hemoglobin 13.0 12.0-16.0 g/dL Hematocrit 37.4 37-47 % Mean Corpuscular Volume 88.0 80-100 fL Mean Corpuscular Hemoglobin 30.6 25-34 pg Mean Corpuscular Hemoglobin Concent 34.8 32-36 g/dl Platelet Count 303 130-400 K/uL Mean Platelet Volume 9.3 7.4-10.4 fL Neutrophils (%) (Auto) 52.8 % Lymphocytes (%) (Auto) 37.2 % Monocytes (%) (Auto) 8.4 % Eosinophils (%) (Auto) 0.8 % Basophils (%) (Auto) 0.3 % Neutrophils # (Auto) 6.84 1.4-6.5 K/uL Lymphocytes # (Auto) 4.83 1.2-3.4 K/uL Monocytes # (Auto) 1.09 0.11-0.59 K/uL Eosinophils # (Auto) 0.10 0-0.5 K/uL Basophils # (Auto) 0.04 0-0.2 K/uL RDW Standard Deviation 47.3 36.4-46.3 fL RDW Coefficient of Variation 14.8 11.5-14.5 % Immature Granulocyte % (Auto) 0.5 % Immature Granulocyte # (Auto) 0.07 0.00-0.02 K/uL D-Dimer 210 0-500 ug/L FEU Sodium Level 142 136-145 mmol/L Potassium Level 3.7 3.5-5.1 mmol/L Chloride Level 109 98-107 mmol/L Carbon Dioxide Level 24 21-32 mmol/L Anion Gap 9.0 3-11 mmol/L Blood Urea Nitrogen 12 7-18 mg/dl Creatinine 0.80 0.60-1.20 mg/dl Estimated GFR () 96.9 Estimated GFR (Non- 83.6 BUN/Creatinine Ratio 14.6 10-20 Random Glucose 74 70-99 mg/dl Calcium Level 8.9 8.5-10.1 mg/dl Phosphorus Level 3.4 2.5-4.9 mg/dl Magnesium Level 2.3 1.8-2.4 mg/dl Total Bilirubin 0.4 0.2-1 mg/dl Direct Bilirubin < 0.1 0-0.2 mg/dl Aspartate Amino Transf (AST/SGOT) 9 15-37 U/L Alanine Aminotransferase (ALT/SGPT) 19 12-78 U/L Alkaline Phosphatase 104 45-117 U/L Total Creatine Kinase 25 26-192 U/L Troponin I < 0.015 0-0.045 ng/ml Total Protein 6.3 6.4-8.2 gm/dl Albumin 3.6 3.4-5.0 gm/dl Lipase 102 73-393 U/L Urine Color YELLOW Urine Appearance CLEAR CLEAR Urine pH 6.0 4.5-7.5 Urine Specific [place] 1.015 1.000-1.030 Urine Protein NEG NEG Urine Glucose (UA) NEG NEG Urine Ketones NEG NEG Urine Occult Blood NEG NEG Urine Nitrite NEG NEG Urine Bilirubin NEG NEG Urine Urobilinogen NEG NEG Urine Leukocyte Esterase TRACE NEG Urine WBC (Auto) 1-5 0-5 /hpf Urine RBC (Auto) 0-4 0-4 /hpf Urine Hyaline Casts (Auto) 1-5 0-5 /lpf Urine Epithelial Cells (Auto) >30 0-5 /lpf Urine Bacteria (Auto) NEG NEG Diagnostic Radiology CT head: IMPRESSION: 1. No acute intracranial findings. 2. No change in the 1.3 cm left frontal parafalcine meningioma. CXR normal EKG Normal sinus rhythm Inferior infarct (cited on or before 04-JAN-2017) Anterior infarct (cited on or before 04-JAN-2017) No change from prior EKG Impression Assessment and Plan This is a 52yo woman with a PMH of migraine headaches, psoriatic arthritis, hypothyroidism, h/o DVTs who presents after a syncopal episodes earlier today. Syncope: -Witnessed syncopal episode this AM -Will order orthostatics to assess for orthostatic hypotension -Giving fluids to correct for any hypovolemia -During last admission, CT, MRI, EEG, LP wnl -No changes on EKG -CT head normal -Consulted neuro for further recs Headache: -H/o migraines with similar presentation years ago -Increase in topomax and prednisone taper not helping -Denies any recent changes to diet, fluid intake or caffeine -During last admission, work-up was negative -Continue IVF, antiemetics -Given Fioricet -Neuro consulted -Did have LP performed on 04/29. May be experiencing a post-procedural HARRIS -Will consulted anesthesiology for blood patch Meningioma: -CT and MRI with 1.3 cm mass consistent with meningioma. Unchanged from previous imaging in 2016 -Monitor as out-patient Hypothyroidism: -Continue levothyroxine -TSH, Free T4 wnl Psoriatic arthritis: -Continue Apremilast DVT Ppx: Lovenox Code status: FULL PCP: Kathrin Dispo: Plan to return home once medically stable Addendum: I have seen and examined the patient and agree with the assessment and plan as above. The headache is positional and began to worsen just after dc. LP performed 7-10 days ago and headache currently is severe and positional associated with some back pain during the week last week. Concern for post-LP headache contributing here. Fioricet ordered. Spoke with anesthesia who will be up first thing in the morning to place a blood patch. Workup during last admission was extensive and negative. Re-evaluate after blood patch. Apprec neuro eval/recs, also. DO Casey Level of Care Telemetry Advanced Directives Existing Living Will: No Existing Power of Baton Twirler: No Resuscitation Status FULL RESUSCITATION VTE Prophylaxis VTE Risk Assessment Done? Y/N: Yes Risk Level: Moderate Given or contraindicated: Enoxaparin (Lovenox)SQ Social Service Consult None Apply
[2017-05-09] MEDS: ONDANSETRON INJ 2 MG/ML 2 ML VIAL IV PRN (19:33)
[2017-05-09] MEDS: SODIUM CHLORIDE 0.9% 1000ML 1,000 ML IV SCH (19:33)
[2017-05-09] MEDS: PROMETHAZINE HCL 25 MG TAB PO PRN (20:46)
[2017-05-09] MEDS ORDERED: AMITRIPTYLINE HCL 10 MG TAB PO SCH (21:00)
[2017-05-09] MEDS: TRAZODONE HCL 50 MG TAB PO SCH (23:47)
[2017-05-09] MEDS: PANTOprazole SOD 40 MG TAB PO SCH (23:47)
[2017-05-09] MEDS: TOPIRAMATE 100 MG TAB PO SCH (23:47)
[2017-05-09] MEDS: ENOXAPARIN 40 MG/0.4 ML SYR SC SCH (23:48)
[2017-05-10] VITALS (8 sets, daily range): BP systolic 122–145; BP diastolic 76–94; PULSE 64–89; TEMP 36.5–36.9; O2SAT 92–99
[2017-05-10] MEDS: SODIUM CHLORIDE 0.9% 1000ML 1,000 ML IV SCH (03:30)
[2017-05-10] MEDS: LEVOTHYROXINE 25 MCG TAB PO SCH (06:05)
[2017-05-10] MEDS: ONDANSETRON INJ 2 MG/ML 2 ML VIAL IV PRN (06:07)
[2017-05-10] MEDS: BUTALBITAL/ACETAMIN/CAFFEINE TAB PO PRN ×2 (06:10→17:05)
[2017-05-10 06:14] LABS: MEAN CELL VOLUME 89.2 fL (80-100); MEAN CORPUSCULAR HEMOGLOBIN 29.9 pg (25-34); MEAN CORPUSCULAR HGB CONC 33.5 g/dl (32-36); MEAN PLATELET VOLUME 8.8 fL (7.4-10.4); PLATELET COUNT 254 K/uL (130-400); RED BLOOD COUNT 3.81 M/uL (4.2-5.4); WHITE BLOOD COUNT 7.97 K/uL (4.8-10.8)
[2017-05-10 06:49] LABS: CALCIUM 8.3 mg/dl (8.5-10.1); CREATININE 0.77 mg/dl (0.60-1.20)
[2017-05-10] MEDS: PANTOprazole SOD 40 MG TAB PO SCH ×2 (07:42→21:20)
[2017-05-10] MEDS: ESCITALOPRAM OXALATE 20 MG TAB PO SCH (07:43)
[2017-05-10] MEDS: TOPIRAMATE 100 MG TAB PO SCH ×2 (07:43→21:20)
[2017-05-10] MEDS: PROMETHAZINE HCL 25 MG TAB PO PRN (09:12)
--- NOTE | 2017-05-10 10:55 | Medical Consult ---
Consultation Date of Consultation: May 10, 2017. Attending Physician: Torey Muñoz MD Reason for Consultation: Headache. Evaluation for Epidural Blood Patch History of Present Illness Patient is a 52 year old F who has had severe headaches ongoing for 2-3 years. She was seen about 2 weeks ago in the ER after a syncopal event which was accompanied by a severe unilateral headache. She was diagnosed with complex migraine and continues on topirimate for this. She was discharged after 5 days inpatient and now returned to the ER yesterday with worsening of the headache, which is now bilateral. She has also had several syncopal or presyncopal events since then. She has a 1.3cm meningioma, but recent imaging showed no change in this mass or any mass effect and this is not felt to be a contributor to her headache. The patient was seen on her last admission by Dr Rowell of [facility] neurology. During the last admission, LP was performed and there was concern from the primary service that PDPH may be complicating the picture. On questioning the patient, she says that no medicines except dilaudid and phenergan are of any help to the headache and those only marginally. She has no positional component to her headache, which is as severe standing up as laying down. She denies fevers, chills, bowel or bladder dysfunction, visual changes, numbness or weakness of the extremities. She does have some nausea and the aforementioned syncopal events with "dizzy" prodromal symptoms. She that while the headache has been getting worse over the past few weeks, there was no change in headache caliber or character with the lumbar puncture. Past Medical/Surgical History Medical Problems: (1) Abdominal pain, suprapubic Status: Acute (2) Abdominal wall cellulitis Status: Acute (3) Abdominal wall hematoma Status: Acute (4) Arm pain, right Status: Acute (5) Bilateral leg edema Status: Acute (6) Cellulitis Status: Acute (7) Chest pain Status: Acute (8) Chest pain Status: Acute (9) Chronic anemia Status: Acute (10) Chronic diarrhea Status: Acute (11) Dental infection Status: Acute (12) Dizziness Status: Acute (13) Facial cellulitis Status: Acute (14) Facial swelling Status: Acute (15) Generalized weakness Status: Acute (16) Generalized weakness Status: Acute (17) Hematemesis Status: Acute (18) Hypokalemia Status: Acute (19) Intractable abdominal pain Status: Acute (20) Left arm pain Status: Acute (21) Left leg pain Status: Acute (22) Lump in neck Status: Acute (23) Nausea vomiting and diarrhea Status: Acute (24) Neurological symptoms Status: Acute (25) Pancreatitis Status: Acute (26) Pleuritic chest pain Status: Acute (27) Precordial chest pain Status: Acute (28) Pulmonary embolism Status: Acute (29) Shortness of breath Status: Acute (30) Shortness of breath Status: Acute (31) Substernal precordial chest pain Status: Acute (32) Symptoms involving urinary system Status: Acute (33) Syncope Status: Acute (34) Syncope Status: Acute (35) Thrombophlebitis arm Status: Acute (36) Thrush Status: Acute (37) Urinary retention Status: Acute Family History FHx: rheumatoid arthritis MOTHER GRANDMOTHER Social History Smoking Status: Never Smoker Drug Use: none Marital Status: Housing Status: lives with family Allergies Coded Allergies: Oxycodone (Verified Allergy, Intermediate, HIVES, 05/10/17) Vancomycin (Verified Adverse Reaction, Unknown, SEE TEXT. . ., 05/10/17) PT STARTED IV VANC TODAY FOR POSSIBLE OSTEOMYELITIS OF RIGHT FOOT. ALSO ON TIMENTIN 3.1G IV Q6H FROM 03/24/08. PHARM'KINETIC VANC CONSULT PATIENT ORDERED VANC 3G IV Q18H IN 560ML TOTAL VOLUME NSS (~5.3MG/ML). AFTER RECEIVING 136ML PT DEVELOPED BODY ITCHING (NO RASH/REDNESS). KAY TEJADA RN CONTACTED DR BANEGAS AND INSTRUCTED TO D/C VANC AND GIVE BENADRYL 50MG PO X1. 03/27/08 @ 1000: SPOKE WITH DR RUIZ: FEELS THIS IS AN INFUSION RELATED RXN BUT CLINICALLY PT IS DOING WORSE AND IS D/C TIMENTIN/VANC AND STARTING TYGACIL. IS THIS AN INFUSION RELATED RXN OR TRUE ALLERGY? I PUT CALL INTO DR BANEGAS TO FURTHER DISCUSS. NO CALL BACK OF TIME OF DOCUMENTATION. AJ Current Inpatient Medications Current Inpatient Medications Medications (Trade) Dose Ordered Sig/Monalisa Route Start Time Stop Time Status Last Admin Dose Admin Enoxaparin Sodium (Lovenox Inj) 40 mg Q24H SC 05/09/17 21:00 06/08/17 20:59 05/09/17 23:48 40 MG Acetaminophen (Tylenol Tab) 650 mg Q4H PRN PO 05/09/17 17:30 06/08/17 17:29 Ondansetron HCl (Zofran Inj) 4 mg Q6H PRN IV 05/09/17 17:30 06/08/17 17:29 05/10/17 06:07 4 MG Miscellaneous (Iv Fluids Completed) 1 ea PRN PRN N/A 05/09/17 18:15 05/09/18 18:14 Albuterol (Ventolin Hfa Inhaler) 2 puffs Q6H PRN INH 05/09/17 18:45 06/08/17 18:44 Amitriptyline HCl (Elavil Tab) 20 mg HS PO 05/09/17 21:00 06/08/17 20:59 05/09/17 23:47 20 MG Ergocalciferol (Vitamin D Cap) 50,000 interunit MoFr@0900 PO 05/11/17 09:00 06/10/17 08:59 Escitalopram Oxalate (Lexapro Tab) 20 mg DAILY PO 05/10/17 09:00 06/09/17 08:59 05/10/17 07:43 20 MG Levothyroxine Sodium (Synthroid Tab) 25 mcg DAILYBB PO 05/10/17 06:00 06/09/17 06:59 05/10/17 06:05 25 MCG Pantoprazole Sodium (Protonix Tab) 40 mg BID PO 05/09/17 21:00 06/08/17 20:59 05/10/17 07:42 40 MG Promethazine HCl (Phenergan Tab) 25 mg Q8 PRN PO 05/09/17 18:45 06/08/17 18:44 05/10/17 09:12 25 MG Topiramate (Topamax Tab) 100 mg BID PO 05/09/17 21:00 06/08/17 20:59 05/10/17 07:43 100 MG Trazodone HCl (Desyrel Tab) 50 mg HS PO 05/09/17 21:00 06/08/17 20:59 05/09/17 23:47 50 MG Miscellaneous Information (Order Awaiting Action) 1 ea QS N/A 05/10/17 00:00 06/09/17 00:00 Acetaminophen/ Butalbital/ Caffeine (Fioricet Tab) 1 tab Q4H PRN PO 05/10/17 01:00 06/09/17 00:59 05/10/17 06:10 1 TAB Review of Systems Constitutional: No fever, No chills Eyes: No worsening of vision Respiratory: No shortness of breath Cardiovascular: No chest pain Abdomen: + nausea Neurologic: No weakness, No numbness/tingling Physical Exam Date Time Temp Pulse Resp B/P (MAP) Pulse Ox O2 Delivery O2 Flow Rate FiO2 05/10/17 08:00 Room Air 05/10/17 07:28 36.5 73 20 145/92 (109) 97 Room Air 05/10/17 04:21 36.8 66 19 145/94 (111) 98 Room Air 05/10/17 04:15 Room Air 05/10/17 00:00 99 Room Air 05/10/17 00:00 36.6 64 18 139/91 (107) 97 Room Air 05/09/17 19:15 36.8 80 18 144/93 (110) 99 Room Air 05/09/17 18:13 70 18 153/100 96 Room Air 05/09/17 17:59 36.8 80 18 144/93 99 Room Air 05/09/17 16:25 75 20 137/85 99 Room Air 05/09/17 14:30 75 20 134/88 98 Room Air 05/09/17 12:30 79 18 146/88 97 Room Air 05/09/17 11:30 98 Room Air 05/09/17 11:21 75 05/09/17 10:56 36.7 73 18 124/86 97 Room Air General Appearance: + moderate distress Head: normocephalic, atraumatic Respiratory/Chest: lungs clear Cardiovascular: regular rate, rhythm Neurologic/Psych: no motor/sensory deficits, oriented x 3 Laboratory Results Last 24 Hours Test 05/09/17 11:25 05/09/17 11:30 05/10/17 05:22 White Blood Count 12.97 K/uL 7.97 K/uL Red Blood Count 4.25 M/uL 3.81 M/uL Hemoglobin 13.0 g/dL 11.4 g/dL Hematocrit 37.4 % 34.0 % Mean Corpuscular Volume 88.0 fL 89.2 fL Mean Corpuscular Hemoglobin 30.6 pg 29.9 pg Mean Corpuscular Hemoglobin Concent 34.8 g/dl 33.5 g/dl Platelet Count 303 K/uL 254 K/uL Mean Platelet Volume 9.3 fL 8.8 fL Neutrophils (%) (Auto) 52.8 % Lymphocytes (%) (Auto) 37.2 % Monocytes (%) (Auto) 8.4 % Eosinophils (%) (Auto) 0.8 % Basophils (%) (Auto) 0.3 % Neutrophils # (Auto) 6.84 K/uL Lymphocytes # (Auto) 4.83 K/uL Monocytes # (Auto) 1.09 K/uL Eosinophils # (Auto) 0.10 K/uL Basophils # (Auto) 0.04 K/uL RDW Standard Deviation 47.3 fL 48.9 fL RDW Coefficient of Variation 14.8 % 14.9 % Immature Granulocyte % (Auto) 0.5 % Immature Granulocyte # (Auto) 0.07 K/uL D-Dimer 210 ug/L FEU Sodium Level 142 mmol/L 145 mmol/L Potassium Level 3.7 mmol/L 4.0 mmol/L Chloride Level 109 mmol/L 113 mmol/L Carbon Dioxide Level 24 mmol/L 27 mmol/L Anion Gap 9.0 mmol/L 5.0 mmol/L Blood Urea Nitrogen 12 mg/dl 10 mg/dl Creatinine 0.80 mg/dl 0.77 mg/dl Estimated GFR () 96.9 101.5 Estimated GFR (Non- 83.6 87.5 BUN/Creatinine Ratio 14.6 13.0 Random Glucose 74 mg/dl 76 mg/dl Calcium Level 8.9 mg/dl 8.3 mg/dl Phosphorus Level 3.4 mg/dl Magnesium Level 2.3 mg/dl Total Bilirubin 0.4 mg/dl Direct Bilirubin < 0.1 mg/dl Aspartate Amino Transf (AST/SGOT) 9 U/L Alanine Aminotransferase (ALT/SGPT) 19 U/L Alkaline Phosphatase 104 U/L Total Creatine Kinase 25 U/L Troponin I < 0.015 ng/ml Total Protein 6.3 gm/dl Albumin 3.6 gm/dl Lipase 102 U/L Urine Color YELLOW Urine Appearance CLEAR Urine pH 6.0 Urine Specific [place] 1.015 Urine Protein NEG Urine Glucose (UA) NEG Urine Ketones NEG Urine Occult Blood NEG Urine Nitrite NEG Urine Bilirubin NEG Urine Urobilinogen NEG Urine Leukocyte Esterase TRACE Urine WBC (Auto) 1-5 /hpf Urine RBC (Auto) 0-4 /hpf Urine Hyaline Casts (Auto) 1-5 /lpf Urine Epithelial Cells (Auto) >30 /lpf Urine Bacteria (Auto) NEG Est Creatinine Clear Calc Drug Dose 92.0 ml/min Assessment & Plan Given the lack of a positional component to her headache, the lack of change in character with the LP, and the significant duration of her headache prior to the LP, I do not think that this headache picture is complicated by PDPH. Given that there is a marginal chance of causing harm with epidural blood patch and I feel that there is a near zero chance of alleviating her symptoms, I would differ blood patch at this time. I spoke with the patient regarding this plan and she agreed. Further workup and management of her headache per internal medicine and neurology. I have also communicated this plan with Dr Johns. Thank you for the consultation, please call us with any further questions.
--- NOTE | 2017-05-10 12:00 | Progress Note ---
Internal Med Progress Note Date of Service: May 10, 2017. Provider Documentation: SUBJECTIVE: still has lot of headache has nausea no sob or chest pain passed out at work and later developed severe headaches afebrile OBJECTIVE: Vital Signs-as noted below Exam: General-alert and oriented. Not in distress. ENT-normal hearing Neck-no neck masses Lungs-cta b/l no wheezing or crackles Heart-s1 and s2 heard regular rate and rhythm, no murmurs Abdomen-soft bowel sounds present non tender no distension Extremities no edema no erythema Neuro-alert and oriented moves extremities Lab data as noted below. ASSESSMENT & PLAN: This is a 52yo woman with a PMH of migraine headaches, psoriatic arthritis, hypothyroidism, h/o DVTs who presents after a syncopal episodes earlier today. Syncope and severe headaches: Witnessed syncopal episode this AM ? similar presentation last week and had extensive workup with Ct, MRI, echo ,EEG and LP which were unremarkable thought to be complex migraines and was discharged on increased dose of Topamax and Prednisone taper ct head in ER yesterday unremarkable Seen by anesthesiology for spinal patch- not placed- appreciate inputs Await neurology recommendation Headache: complex migraines? last week discharged on prednisone taper and increased dose of Topamax Had LP performed on 04/29. May be experiencing a post-procedural HARRIS Seen by anesthesiology and does not think spinal patch will help Await neuro inputs Meningioma: CT and MRI with 1.3 cm mass consistent with meningioma. Unchanged from previous imaging in 2016 Monitor as out-patient Hypothyroidism: On Synthroid tsh normal Psoriatic arthritis: on Apremilast DVT Ppx: Lovenox DISPOSITION will transfer to medical floor Vital Signs: Date Time Temp Pulse Resp B/P (MAP) Pulse Ox O2 Delivery O2 Flow Rate FiO2 05/10/17 11:28 Room Air 05/10/17 08:00 Room Air 05/10/17 07:28 36.5 73 20 145/92 (109) 97 Room Air 05/10/17 04:21 36.8 66 19 145/94 (111) 98 Room Air 05/10/17 04:15 Room Air 05/10/17 00:00 99 Room Air 05/10/17 00:00 36.6 64 18 139/91 (107) 97 Room Air 05/09/17 19:15 36.8 80 18 144/93 (110) 99 Room Air 05/09/17 18:13 70 18 153/100 96 Room Air 05/09/17 17:59 36.8 80 18 144/93 99 Room Air 05/09/17 16:25 75 20 137/85 99 Room Air 05/09/17 14:30 75 20 134/88 98 Room Air 05/09/17 12:30 79 18 146/88 97 Room Air Lab Results: Results Past 24 Hours Test 05/10/17 05:22 Range/Units White Blood Count 7.97 4.8-10.8 K/uL Red Blood Count 3.81 4.2-5.4 M/uL Hemoglobin 11.4 12.0-16.0 g/dL Hematocrit 34.0 37-47 % Mean Corpuscular Volume 89.2 80-100 fL Mean Corpuscular Hemoglobin 29.9 25-34 pg Mean Corpuscular Hemoglobin Concent 33.5 32-36 g/dl RDW Standard Deviation 48.9 36.4-46.3 fL RDW Coefficient of Variation 14.9 11.5-14.5 % Platelet Count 254 130-400 K/uL Mean Platelet Volume 8.8 7.4-10.4 fL Sodium Level 145 136-145 mmol/L Potassium Level 4.0 3.5-5.1 mmol/L Chloride Level 113 98-107 mmol/L Carbon Dioxide Level 27 21-32 mmol/L Anion Gap 5.0 3-11 mmol/L Blood Urea Nitrogen 10 7-18 mg/dl Creatinine 0.77 0.60-1.20 mg/dl Est Creatinine Clear Calc Drug Dose 92.0 ml/min Estimated GFR () 101.5 Estimated GFR (Non- 87.5 BUN/Creatinine Ratio 13.0 10-20 Random Glucose 76 70-99 mg/dl Calcium Level 8.3 8.5-10.1 mg/dl
[2017-05-10] MEDS: PROMETHAZINE HCL INJ 25 MG in SODIUM CHLORIDE 0.9% 50ML 50 ML IV PRN (18:52)
[2017-05-10] MEDS: RIZATRIPTAN BENZOATE 10 MG TAB PO PRN ×2 (18:53→21:20)
--- NOTE | 2017-05-10 20:50 | NEUROLOGY CONSULTATION ---
DATE OF CONSULTATION: 05/10/2017 REASON FOR CONSULTATION: Syncope, headache. HISTORY OF PRESENT ILLNESS: The patient is a 52-year-old right-handed female with a known history of migraine, who follows with Dr. Rowell. She was admitted to our facility approximately a week ago and discharged approximately 4 days ago for a syncopal episode without injury, followed by a fairly severe headache. Imaging at that time, which I have reviewed, shows a meningioma 1.3 cm in the left frontal region without any significant mass effect. CTA showed normal head and neck, no venous sinus thrombosis was noted on that study. An EEG was performed as well and that was normal. The patient had a spinal tap, which was unrevealing and well tolerated. The patient was treated with an oral course of prednisone which she was in the process of tapering, was on 30 mg at home. She received some intravenous Depacon while hospitalized, Topamax dose was increased and she gradually improved. She went home and returned to work. Today felt vaguely lightheaded, sat down and was seen on a videotape at work to be slumped over. Unclear how long she was out. There was no tongue biting. She had not fallen and there was no injury. She has reported lightheadedness as well as some nonpositional vertigo since the last admission. There are no otologic symptoms. She has had several bouts of syncopal episodes in the past. No history of seizure. On her way to the Emergency Room, she developed a severe sharp, constant headache with nausea, vomiting, light and sound sensitivity, but no change in strength, weakness, numbness, tingling or change in vision. At our facility, a CT of the head noncontrast was performed and it continues to show the left frontal parafalcine meningioma, measuring 1.3 cm. Her electrocardiogram: Sinus rhythm, anterior and inferior infarcts cited previously. Parenthetically, the patient indicates to me that she does not have coronary artery disease and has had negative stress testing within the last year. There is no postural component to the patient's headache, i.e., it is not easily relieved by lying down or precipitated by sitting up. She has not otherwise been ill. No fevers, chills, sweats, weight loss. On admission, her white count is 12.97, likely reflected with steroids she has been taking. H&H normal, platelet count 303, D-dimer 210. Chemistry profile noted for a chloride of 109, normal transaminases. CK 25. Urinalysis: Trace leukocyte esterase, greater than 30 epithelial cells. PHYSICAL EXAMINATION: VITAL SIGNS: On admission, 36.7, 73, 18, 124/86, 97%. GENERAL: The patient is awake and alert. Normal speech and language. Affect appropriate. She does not appear to be in any significant distress. HEENT: Normocephalic, atraumatic. NECK: Supple. There are no carotid bruits. HEART: No heart murmurs. Heart is regular rate and rhythm. NEUROLOGIC: Pupils are equal. Optic nerves unremarkable. Normal davis, motility, facial sensation, facial symmetry. Gross hearing is intact. Provocative head maneuvers are negative. Motor 5/5. No drift. Normal rapid alternating movements. Symmetrically mildly brisk reflexes. Downgoing toes. [id number]-[id number] and kcsy-oc-[id number] are normal. There is intact light touch and temperature. IMPRESSION: 1. Presumed syncopal episode, doubt there is no evidence that this is vasovagal nor is there any evidence that this is related to the left frontal meningioma. We will repeat an MRI of the brain and then ask the patient to have her coworkers review the tape, so that they can backtrack to the time of her loss of consciousness and see if there was any seizure activity. 2. Continue further cardiovascular evaluation with regard to the syncopal episode. 3. Regarding this ongoing migraine, I see no worrisome signs. There is no evidence of subarachnoid hemorrhage, meningeal process. The headache is not postural to suspect an intracranial hypotension or post-lumbar puncture headache. PLAN: The patient prefers IV Phenergan and will switch from oral to IV. She has previously and recently on Sunday taken triptans which she tolerates well. We will try Maxalt. We will increase the dose of amitriptyline to 30 at bedtime. I would recommend monitoring for orthostatics. We will continue to follow with you. JULIANA
[2017-05-10] MEDS: TRAZODONE HCL 50 MG TAB PO SCH (21:20)
[2017-05-10] MEDS: ENOXAPARIN 40 MG/0.4 ML SYR SC SCH (21:20)
[2017-05-10] MEDS: AMITRIPTYLINE HCL 10 MG TAB PO SCH (21:20)
[2017-05-11] VITALS (8 sets, daily range): BP systolic 109–137; BP diastolic 56–93; PULSE 76–127; TEMP 36.4–36.9; O2SAT 93–99
[2017-05-11] MEDS: PROMETHAZINE HCL INJ 25 MG in SODIUM CHLORIDE 0.9% 50ML 50 ML IV PRN ×4 (03:18→23:39)
[2017-05-11] MEDS: LEVOTHYROXINE 25 MCG TAB PO SCH (05:50)
[2017-05-11] MEDS: PANTOprazole SOD 40 MG TAB PO SCH ×2 (08:32→22:12)
[2017-05-11] MEDS: ESCITALOPRAM OXALATE 20 MG TAB PO SCH (08:32)
[2017-05-11] MEDS: TOPIRAMATE 100 MG TAB PO SCH ×2 (08:33→22:13)
[2017-05-11] MEDS: ERGOCALCIFEROL 50,000 INTER.UNIT CAP PO SCH (08:33)
[2017-05-11] MEDS: RIZATRIPTAN BENZOATE 10 MG TAB PO PRN (08:50)
[2017-05-11] MEDS ORDERED: METHYLPREDNISOLONE IV 60 MG in SYRINGE 0 ML IV ONE (11:00)
[2017-05-11] MEDS ORDERED: DiphenhydrAMINE HCL 50 MG/ML VIAL IV SCH (12:15)
--- NOTE | 2017-05-11 12:17 | ELECTROENCEPHALOGRAPH REPORT ---
REQUESTING: Dr. Lopez. CLINICAL DIAGNOSIS: Recurrent syncope, question seizures. ELECTROENCEPHALOGRAM DIAGNOSIS: Essentially normal during wakefulness. DESCRIPTION OF TRACING: This EEG was done as a bedside recording and was of excellent technical quality. A simultaneous video analysis of patient movement and behavior is unremarkable and there are few or no muscle or movement artifacts. Photic stimulation was performed. Hyperventilation was not. Drowsiness and light sleep are not clearly recorded. Under these conditions, there is evidence for normal background rhythm in the alpha range of up to 10 Hz of maximum frequency and 30 microvolts of maximum amplitude. This is maximum posterior head regions and bilaterally symmetrical. Polymorphic mid frequency theta activity is seen over all head regions without clear focal or regional predominance. Anterior head region maximum bilaterally symmetrical low voltage fast activity in the beta range is present. Photic stimulation provokes modest driving response without a photomyogenic or photoparoxysmal component. At no time during the waking tracing is there evidence for potentially epileptogenic activity in the form of polyspike or spike wave bursts, focal sharp waves or focal spikes. INTERPRETATION: This EEG is essentially normal during wakefulness without evidence for focal or generalized encephalopathy and without evidence for potentially epileptogenic activity.
--- NOTE | 2017-05-11 14:56 | PROGRESS NOTE ---
DATE: 05/11/2017 I saw Sara today, reviewed Dr. Lopez's note. She continues to have a grade 10/10 headache, is now photophobic. The entire head is hurting. She had a lightheaded episode this morning. Unfortunately, blood pressure was not recorded, but there were no EKG changes. I discussed her case with Dr. Muniz who feels that she has had a chronically abnormal EKG and has been thoroughly evaluated and probably does not need any further cardiac evaluation, although he like Dr. Lopez has recommended that orthostatic blood pressures be checked. She has had an EEG which again is normal. An MRI was recommended by Dr. Lopez. I have not seen that it has been done yet and apparently has been requested for the coworkers to review tapes that may have recorded her syncopal to see if there was any seizure activity but I am not seeing a result of this. Thus far not much has helped. The Maxalt has not done anything more than any of her other triptans. She is on some IV Phenergan and the last visit she did report some transient benefit with some IV Depacon so in addition to increasing her amitriptyline 30 mg at bedtime and using the methylprednisolone, which did not help, I am going to give her Depacon, 250 mg IV every 8 hours and I will check back with her tomorrow. At that time, a repeat MRI should be available and we can review it but frankly I do not think we are going to see anything different than we did during the last admission, not long ago. Addendum: MRI was not ordered with place an order for one and also check mrv of brain to exclude the remote chance this is a venous sinus thrombosis MTDD
[2017-05-11] MEDS: VALPROATE SOD IV 250 MG in DEXTROSE 5% 50ML 50 ML IV SCH ×2 (15:20→23:39)
[2017-05-11] MEDS: ONDANSETRON INJ 2 MG/ML 2 ML VIAL IV PRN ×2 (15:20→22:29)
--- NOTE | 2017-05-11 17:48 | Progress Note ---
Internal Med Progress Note Date of Service: May 11, 2017. Provider Documentation: SUBJECTIVE: still having lot of headaches afebrile has nausea no sob no chest pain OBJECTIVE: Vital Signs-as noted below Exam: General-alert and oriented. Not in distress. ENT-normal hearing Neck-no neck masses Lungs-cta b/l no wheezing or crackles Heart-s1 and s2 heard regular rate and rhythm, no murmurs Abdomen-soft bowel sounds present non tender no distension Extremities no edema no erythema Neuro-alert and oriented moves extremities Lab data as noted below. ASSESSMENT & PLAN: This is a 52yo woman with a PMH of migraine headaches, psoriatic arthritis, hypothyroidism, h/o DVTs who presents after a syncopal episodes earlier today. Syncope and severe headaches: Witnessed syncopal episode this AM ? similar presentation last week and had extensive workup with Ct, MRI, echo ,EEG and LP which were unremarkable thought to be complex migraines and was discharged on increased dose of Topamax and Prednisone taper ct head in ER yesterday unremarkable Seen by anesthesiology for spinal patch- not placed- appreciate inputs Await neurology recommendation-plan for mri and mrv head Headache: complex migraines? last week discharged on prednisone taper and increased dose of Topamax Had LP performed on 04/29. May be experiencing a post-procedural HARRIS Seen by anesthesiology and does not think spinal patch will help Neurology added Maxalt and increased amitriptyline- headaches didn't improve had a dose of iv steroid plan for mri/mrv head as per neurology will monitor Recurrent syncope echo last admission unremarkable tele monitoring from migraines? consulted cardiology for further recommendations. Meningioma: CT and MRI with 1.3 cm mass consistent with meningioma. Unchanged from previous imaging in 2016 Monitor as out-patient Hypothyroidism: On Synthroid tsh normal Psoriatic arthritis: on Apremilast DVT Ppx: Lovenox DISPOSITION monitor on tele for now Vital Signs: Date Time Temp Pulse Resp B/P (MAP) Pulse Ox O2 Delivery O2 Flow Rate FiO2 05/11/17 16:00 Room Air 05/11/17 15:05 36.5 105 20 132/92 (105) 94 Room Air 05/11/17 12:05 36.4 83 16 137/86 (103) 97 05/11/17 12:00 Room Air 05/11/17 08:07 36.4 87 16 122/70 (87) 99 Room Air 80 130/82 (98) 84 121/77 (92) 05/11/17 08:00 Room Air 05/11/17 04:00 Room Air 05/11/17 03:10 36.9 80 18 122/86 (98) 95 Room Air 05/11/17 00:05 36.7 76 18 109/56 (73) 93 Room Air 05/11/17 00:00 Room Air 05/10/17 20:00 Room Air 05/10/17 19:37 87 135/91 (106) 05/10/17 19:35 79 18 126/88 (101) 05/10/17 19:33 36.7 70 18 130/76 (94) 92 Room Air
[2017-05-11] MEDS: AMITRIPTYLINE HCL 10 MG TAB PO SCH (22:10)
[2017-05-11] MEDS: TRAZODONE HCL 50 MG TAB PO SCH (22:10)
--- NOTE | 2017-05-11 22:12 | DIAGNOSTIC IMAGING REPORT ---
Brain MRI WITH AND WITHOUT CONTRAST HISTORY: ongoing headache TECHNIQUE: Multiplanar multisequence MRI of the brain was performed both before and after the intravenous administration of contrast. COMPARISON STUDY: Head CT 05/09/2017. Brain MRI 04/30/2017 FINDINGS: There are no areas of restricted diffusion to suggest acute infarction. The midline structures are intact. The paranasal sinuses are clear. The mastoid air cells are clear. The ventricles and sulci are within normal limits for age. There is no hematoma, midline shift. The major vascular flow-voids at the skull base are well maintained. Postcontrast sequences show no areas of abnormal enhancement. Stable 1.4 cm left frontal meningioma. A few scattered punctate foci of T2 hyperintensity seen within the white matter are nonspecific but favor minimal microvascular ischemic change given the patient's age. This remains in change. There is also a punctate focus of increased T2 signal within the left cerebellar hemisphere which may also be due to microvascular ischemic change are again old punctate lacunar infarct. IMPRESSION: No significant change compared to the prior study. No acute intracranial abnormality. Stable 1.4 cm left frontal meningioma. Electronically signed by: Rob Wasserman M.D. 05/11/2017 10:10 PM Dictated Date/Time: 05/11/2017 10:02 PM
--- NOTE | 2017-05-11 22:13 | DIAGNOSTIC IMAGING REPORT ---
MRV HEAD WITHOUT CONTRAST HISTORY: Headache. possible cerebral venous sinus thrombosis TECHNIQUE: Brain MRI 04/30/2017. COMPARISON STUDY: None. FINDINGS: The visualized internal jugular veins, sigmoid sinuses, transverse sinuses, straight sinus, internal cerebral veins, and superior sagittal sinus are widely patent. IMPRESSION: No evidence for dural venous sinus thrombosis. Electronically signed by: Rob Wasserman M.D. 05/11/2017 10:11 PM Dictated Date/Time: 05/11/2017 9:55 PM
[2017-05-11] MEDS: ENOXAPARIN 40 MG/0.4 ML SYR SC SCH (22:19)
--- NOTE | 2017-05-11 23:49 | CARDIOLOGY CONSULTATION ---
DATE OF CONSULTATION: 05/11/2017 REFERRING: Dr. Muñoz. PRIMARY DOCTOR: Dr. Shell Pinon. REFERRAL DIAGNOSIS: Syncope, near syncope, chronic migraine. HISTORY OF PRESENT ILLNESS: The patient is a complex 52-year-old female whose history is notable for longstanding abnormal EKG with prior evaluations for atypical chest pain and near syncope. Evaluations in the past have included diagnostic cardiac catheterization for abnormal EKG in 2009 with no coronary artery disease. Serial EKGs and stress testing with last stress testing done in March of 2016 without ischemia. Echocardiogram done approximately 3 weeks ago demonstrated preserved LV function and normal structural heart, without wall motion abnormality. Underlying medical problems are complex and include recent migraine issues, history of past pulmonary emboli, history of chronic and past acute diverticulitis, history of prior gastric bypass surgery. The patient is referred now after a second admission in the last 2 weeks with episodes of near syncope. The first episode occurred while sitting at work and coworkers found her sitting at her desk. She was confused on initial evaluation and incontinent of urine at that time. She attempted to go home once again had similar symptoms and "passed out" and shortly after arrival, she developed severe blurred vision and headache consistent with severe migraine. She once again was readmitted on 05/09/2017 with symptoms of near syncope while walking a flight of stairs, she developed tunnel vision and slumped to a sitting position followed by an episode of severe 10/10 headache. Headache has been persistent since admission. She notes no chest pain. Notes no tachy palpitations. Notes no prior history of childhood syncope or arrhythmias. Notes no history of congenital heart disease. Notes no history of TIA or stroke. Her appetite has been only fair, when episode occurs she becomes nauseated with poor p.o. intake. She notes no sleep disorders, notes no worsening edema, notes specifically a poor tolerance of salt and salty foods. Blood pressures generally trend low. The patient did experience an acute episode of lightheadedness and weakness today while in hospital with telemetry demonstrating sinus and sinus tachycardia only. Episode occurred while patient was "washing up." ALLERGIES: OXYCODONE AND VANCOMYCIN. MEDICATIONS: Prior to hospitalization were albuterol inhaler 2 puffs q. 6 hours, Elavil 20 mg at bedtime,. escitalopram 20 mg daily, Levsin 0.125 mg t.i.d., levothyroxine 25 mcg per day, pantoprazole 40 mg b.i.d., prednisone taper, trazodone 50 mg at bedtime, Topamax 100 mg b.i.d., and Maxalt p.r.n. migraine. PAST SURGICAL HISTORY: Notable for prior described gastric bypass surgery, history of cholecystectomy, appendectomy, and bilateral knee surgeries. FAMILY HISTORY: Not specifically notable for cardiac disease. SOCIAL HISTORY: The patient is a nonsmoker, nondrinker. PHYSICAL EXAMINATION: VITAL SIGNS: Heart rate 63; blood pressure is 137/86, orthostatic blood pressures this morning were not notable for significant change. Telemetry reveals no arrhythmias. HEENT: Normocephalic, atraumatic. Nares without discharge. Throat was clear. NECK: Supple without thyromegaly or lymphadenopathy. There are no carotid bruits. LUNGS: Clear. CARDIOVASCULAR: Regular with normal S1, S2, no murmur, gallop or rub. ABDOMEN: Soft, nontender. EXTREMITIES: Without cyanosis or clubbing. There is no peripheral edema. LABORATORY DATA: White cell count is 7.9, hemoglobin is 11.4. Sodium is 145, potassium is 4.0, chloride is 113, bicarbonate is 27, BUN is 10, creatinine 0.77. D-dimer is normal. CK is normal. Troponin is normal. EKG reveals sinus rhythm inferior Q-waves and poor R-wave progression across the anterior precordial leads, unchanged from prior tracings. Echocardiogram last performed in April 2017 demonstrated preserved LV systolic function, no structural abnormalities or wall motion abnormalities. IMPRESSION: A 52-year-old female with a history of complex migraine and history of past syncope and near syncope, no direct documented structural heart disease, bypass extensive evaluations including stress testing, multiple echoes and cardiac catheterization. EKGs unchanged, though abnormal, syncopal events uncertain, component of orthostasis not completely excluded. Would encourage liberalize sodium and fluid intake, continue monitor to exclude arrhythmias, though an episode occurred today while on telemetry without arrhythmias observed. JULIANA
[2017-05-12] VITALS: BP 111/79; PULSE 103; TEMP 37; O2SAT 92
[2017-05-12 04:00] VITALS: BP 126/87; PULSE 103; TEMP 37; O2SAT 92
[2017-05-12] MEDS: LEVOTHYROXINE 25 MCG TAB PO SCH (06:18)
[2017-05-12] MEDS: ONDANSETRON INJ 2 MG/ML 2 ML VIAL IV PRN ×3 (06:18→21:57)
[2017-05-12 06:38] LABS: HEMATOCRIT 39.3 % (37-47); MEAN CELL VOLUME 88.9 fL (80-100); MEAN CORPUSCULAR HEMOGLOBIN 30.3 pg (25-34); MEAN CORPUSCULAR HGB CONC 34.1 g/dl (32-36); PLATELET COUNT 316 K/uL (130-400); RED BLOOD COUNT 4.42 M/uL (4.2-5.4); WHITE BLOOD COUNT 13.86 K/uL (4.8-10.8)
[2017-05-12 07:13] LABS: CREATININE 0.88 mg/dl (0.60-1.20)
[2017-05-12 08:22] VITALS: BP_SYST 129; BP_SYST 130; BP_SYST 137; BP_DIAS 75; BP_DIAS 82; BP_DIAS 86; PULSE 107; PULSE 120; PULSE 83; TEMP 37.2; O2SAT 96
[2017-05-12] MEDS: VALPROATE SOD IV 250 MG in DEXTROSE 5% 50ML 50 ML IV SCH ×2 (09:08→16:13)
[2017-05-12] MEDS: PANTOprazole SOD 40 MG TAB PO SCH ×2 (09:09→20:52)
[2017-05-12] MEDS: TOPIRAMATE 100 MG TAB PO SCH ×2 (09:09→20:53)
[2017-05-12] MEDS: PROMETHAZINE HCL INJ 25 MG in SODIUM CHLORIDE 0.9% 50ML 50 ML IV PRN ×2 (09:22→16:13)
[2017-05-12] MEDS ORDERED: HYDROmorphone INJ 0.5 MG/0.5 ML SYR IV ONE (10:30)
[2017-05-12] MEDS: ESCITALOPRAM OXALATE 20 MG TAB PO SCH (10:55)
[2017-05-12] MEDS: TRAMADOL HCL 50 MG TAB PO PRN (10:56)
[2017-05-12 11:19] VITALS: BP 129/75; PULSE 120; TEMP 37.2; O2SAT 96
[2017-05-12 11:33] VITALS: BP 119/80; PULSE 78; TEMP 36.5; O2SAT 97
[2017-05-12] MEDS: DEXAMETHASONE INJ 2 MG in SYRINGE 0 ML IV SCH ×2 (14:52→21:05)
[2017-05-12 15:02] VITALS: BP_SYST 118; BP_SYST 124; BP_SYST 133; BP_DIAS 77; BP_DIAS 79; BP_DIAS 85; PULSE 85; TEMP 36.3; O2SAT 96
--- NOTE | 2017-05-12 16:55 | PROGRESS NOTE ---
DATE: 05/12/2017 SUBJECTIVE: Gladis has been moved from [facility]. The blinds not drawn. She is looking out into the environment and does not have any photophobia but states that her headache is only slightly better it was and still fairly severe. She has been requiring narcotics, luckily at a low frequency. She has received one course of steroids, her Depakote is 250 IV 3 times a day, has not made any difference as yet. Her Topamax is up to 100 twice a day and she is still on trazodone and her Elavil has been raised 30 mg. Her exam remains normal. IMAGING STUDIES: Again reveals small meningioma which is absolutely nothing to do with her headaches and the MR venogram searching for possible venous sinus thrombosis is normal. IMPRESSION AND PLAN: At this point, we have a persistent migraine, resistant to therapy. We are going to try some around the clock Decadron to see if this corticosteroid course would be more effective than the prednisone we had her on before. I will be back later tomorrow afternoon to assess how well she has done on it and will try for relatively low doses, i.e., 2 mg IV every 8 hours. If this does not work, I am not sure where we can go at this point. Will continue the current regimen and hopefully this will break up. Luckily, there has been no more evidence of syncopal events. Orthostatics have not been that impressively abnormal. EEGs have now been normal on 2 occasions and the history really does not suggest seizure, so I am not going to put her on any more anticonvulsants and it should be pointed out she is already on a reasonable dose of Topamax, which should cover her seizure activity anyway. MTDD
--- NOTE | 2017-05-12 17:07 | Progress Note ---
Internal Med Progress Note Date of Service: May 12, 2017. Provider Documentation: SUBJECTIVE: still having severe headaches and dizziness afebrile no sob no nausea hemodynamics stable OBJECTIVE: Vital Signs-as noted below Exam: General-alert and oriented. Not in distress. ENT-normal hearing Neck-no neck masses Lungs-cta b/l no wheezing or crackles Heart-s1 and s2 heard regular rate and rhythm, no murmurs Abdomen-soft bowel sounds present non tender no distension Extremities no edema no erythema Neuro-alert and oriented moves extremities Lab data as noted below. ASSESSMENT & PLAN: This is a 52yo woman with a PMH of migraine headaches, psoriatic arthritis, hypothyroidism, h/o DVTs who presents after a syncopal episodes earlier today. Syncope and severe headaches: Witnessed syncopal episode this AM ? Persistent migraine similar presentation last week and had extensive workup with Ct, MRI, echo ,EEG and LP which were unremarkable thought to be complex migraines and was discharged on increased dose of Topamax and Prednisone taper ct head in ER yesterday unremarkable Seen by anesthesiology for spinal patch- not placed- appreciate inputs Await neurology recommendation-plan for mri and mrv head which are unremarkable eeg unremarkable most likley persistent migraine and neurology starting on Decadron 2mg iv tid will monitor Recurrent syncope echo last admission unremarkable tele monitoring from migraines? consulted cardiology and appreciate inputs Meningioma: CT and MRI with 1.3 cm mass consistent with meningioma. Unchanged from previous imaging in 2016 Monitor as out-patient Hypothyroidism: On Synthroid tsh normal Psoriatic arthritis: on Apremilast DVT Ppx: Lovenox DISPOSITION Transfer to medical floor Vital Signs: Date Time Temp Pulse Resp B/P (MAP) Pulse Ox O2 Delivery O2 Flow Rate FiO2 05/12/17 15:45 Room Air 05/12/17 15:02 36.3 85 16 133/77 (95) 96 Room Air 118/79 (92) 124/85 (98) 05/12/17 11:33 36.5 78 20 119/80 (93) 97 Room Air 05/12/17 11:19 37.2 120 16 96 05/12/17 08:22 37.2 83 16 137/86 (103) 96 Room Air 107 130/82 (98) 120 129/75 (93) 05/12/17 08:00 Room Air 05/12/17 04:00 37.0 103 18 126/87 (100) 92 Room Air 05/12/17 04:00 Room Air 05/12/17 00:00 Room Air 05/12/17 00:00 37.0 103 18 111/79 (90) 92 Room Air 05/11/17 22:00 Room Air 05/11/17 20:41 Room Air 05/11/17 19:33 127 20 127/82 (97) 05/11/17 19:31 118 20 132/93 (106) 05/11/17 19:29 36.8 114 20 118/88 (98) 93 Lab Results: Results Past 24 Hours Test 05/12/17 06:17 Range/Units White Blood Count 13.86 4.8-10.8 K/uL Red Blood Count 4.42 4.2-5.4 M/uL Hemoglobin 13.4 12.0-16.0 g/dL Hematocrit 39.3 37-47 % Mean Corpuscular Volume 88.9 80-100 fL Mean Corpuscular Hemoglobin 30.3 25-34 pg Mean Corpuscular Hemoglobin Concent 34.1 32-36 g/dl RDW Standard Deviation 47.0 36.4-46.3 fL RDW Coefficient of Variation 14.5 11.5-14.5 % Platelet Count 316 130-400 K/uL Mean Platelet Volume 9.0 7.4-10.4 fL Creatinine 0.88 0.60-1.20 mg/dl Est Creatinine Clear Calc Drug Dose 80.0 ml/min Estimated GFR () 86.3 Estimated GFR (Non- 74.5
[2017-05-12] MEDS: TRAZODONE HCL 50 MG TAB PO SCH (20:52)
[2017-05-12] MEDS: AMITRIPTYLINE HCL 10 MG TAB PO SCH (20:54)
[2017-05-12] MEDS: ENOXAPARIN 40 MG/0.4 ML SYR SC SCH (20:55)
[2017-05-13 00:25] VITALS: BP 138/89; PULSE 66; TEMP 36.8; O2SAT 92
[2017-05-13] MEDS: VALPROATE SOD IV 250 MG in DEXTROSE 5% 50ML 50 ML IV SCH ×4 (00:25→23:22)
[2017-05-13] MEDS: LEVOTHYROXINE 25 MCG TAB PO SCH (06:03)
[2017-05-13] MEDS: DEXAMETHASONE INJ 2 MG in SYRINGE 0 ML IV SCH ×3 (06:03→20:48)
[2017-05-13 07:46] VITALS: BP_SYST 133; BP_SYST 138; BP_SYST 143; BP_DIAS 87; BP_DIAS 90; BP_DIAS 91; PULSE 70; TEMP 36.5; O2SAT 96
[2017-05-13] MEDS: PANTOprazole SOD 40 MG TAB PO SCH ×2 (08:20→21:09)
[2017-05-13] MEDS: TOPIRAMATE 100 MG TAB PO SCH ×3 (08:20→21:09)
[2017-05-13] MEDS: ESCITALOPRAM OXALATE 20 MG TAB PO SCH (08:20)
[2017-05-13] MEDS: ONDANSETRON INJ 2 MG/ML 2 ML VIAL IV PRN ×3 (08:21→21:05)
[2017-05-13] MEDS: PROMETHAZINE HCL INJ 25 MG in SODIUM CHLORIDE 0.9% 50ML 50 ML IV PRN ×3 (08:21→22:11)
[2017-05-13] MEDS: TRAMADOL HCL 50 MG TAB PO PRN (13:15)
[2017-05-13 15:40] VITALS: BP 144/91; PULSE 78; TEMP 36.9; O2SAT 92
--- NOTE | 2017-05-13 18:53 | Progress Note ---
Internal Med Progress Note Date of Service: May 13, 2017. Provider Documentation: SUBJECTIVE: says Teresita has taken pressure from her head but still has headaches somewhat nauseous. Lights bothering her. tolerating diet no sob or chest pain afebrile OBJECTIVE: Vital Signs-as noted below Exam: General-alert and oriented. Not in distress. ENT-normal hearing Neck-no neck masses Lungs-cta b/l no wheezing or crackles Heart-s1 and s2 heard regular rate and rhythm, no murmurs Abdomen-soft bowel sounds present non tender no distension Extremities no edema no erythema Neuro-alert and oriented moves extremities Lab data as noted below. ASSESSMENT & PLAN: This is a 52yo woman with a PMH of migraine headaches, psoriatic arthritis, hypothyroidism, h/o DVTs who presents after a syncopal episodes earlier today. Syncope and severe headaches: Witnessed syncopal episode this AM ? Persistent migraine similar presentation last week and had extensive workup with Ct, MRI, echo ,EEG and LP which were unremarkable thought to be complex migraines and was discharged on increased dose of Topamax and Prednisone taper ct head in ER yesterday unremarkable Seen by anesthesiology for spinal patch- not placed- appreciate inputs Await neurology recommendation-plan for mri and mrv head which are unremarkable eeg unremarkable most likley persistent migraine and neurology starting on Decadron 2mg iv tid- some what improving will monitor Recurrent syncope echo last admission unremarkable tele monitoring from migraines? consulted cardiology and appreciate inputs Meningioma: CT and MRI with 1.3 cm mass consistent with meningioma. Unchanged from previous imaging in 2016 Monitor as out-patient Hypothyroidism: On Synthroid tsh normal Psoriatic arthritis: on Apremilast DVT Ppx: Lovenox DISPOSITION possible d/c in 1-2 days if stable Vital Signs: Date Time Temp Pulse Resp B/P (MAP) Pulse Ox O2 Delivery O2 Flow Rate FiO2 05/13/17 15:40 36.9 78 18 144/91 (108) 92 Room Air 05/13/17 08:00 Room Air 05/13/17 07:46 36.5 70 18 143/90 (107) 96 Room Air 138/87 (104) 133/91 (105) 05/13/17 00:25 36.8 66 18 138/89 (105) 92 Room Air 05/13/17 00:00 Room Air 05/12/17 20:00 Room Air
--- NOTE | 2017-05-13 20:25 | PROGRESS NOTE ---
DATE: 05/13/2017 SUBJECTIVE: Gladis feels better today. The extreme pressure had seems to responded to the combination of IV Depacon and Decadron. I suspect the latter is primarily responsible at 2 mg q. 8 hours, but the Depakote is also going on at 250 every 8 hours as well. She still has a headache, she rates it now at about 6/10 and is vomiting and nauseated, but some of this may reflect the analgesia she is using. She received some narcotic analgesics, but is also now on some Ultram, which may or may not be tolerated by her. Exam [place], she looks fine. She is bright, active, alert, oriented in 3 spheres with lights around the room. She does not appear to be in any distress and the exam is nonfocal. One of the issues she brings out now is the fact she has now lost 2 jobs because of her syncopal events and the headaches and absence from work and she wonders if she can go on disability. I have no problems with writing or filling out a form stating that she has frequent migraine headaches and sometimes will require hospitalizations, but beyond this really cannot make a statement that these are disabling. She apparently has some other medical issues and sounds like she is going to contact her primary care provider and see if these can be addressed as well. All this is a little immaterial. We are going to continue the medications. We are going to look at her tomorrow afternoon, but at some point we are going to have to back down on both the Depakote and the Decadron and I am hopeful to be able do that tomorrow, cutting both every 12 hours for a day and then stopping them entirely. Hopefully, we will give her a little more time and the severity of the headaches will resolve at some point and she can go home on her current Topamax, Elavil, trazadone combination. JULIANA
[2017-05-13] MEDS: TRAZODONE HCL 50 MG TAB PO SCH (21:09)
[2017-05-13] MEDS: AMITRIPTYLINE HCL 10 MG TAB PO SCH (21:10)
[2017-05-13] MEDS: ENOXAPARIN 40 MG/0.4 ML SYR SC SCH (21:10)
[2017-05-13] MEDS ORDERED: KETOROLAC TROMETHAMINE 30 MG/ML VIAL IV STA (21:57)
[2017-05-13] MEDS ORDERED: IBUPROFEN 200 MG TAB PO PRN (22:15)
[2017-05-13 23:39] VITALS: BP 124/80; PULSE 79; TEMP 36.8; O2SAT 92
[2017-05-14] MEDS: DEXAMETHASONE INJ 2 MG in SYRINGE 0 ML IV SCH ×2 (05:27→14:03)
[2017-05-14] MEDS: LEVOTHYROXINE 25 MCG TAB PO SCH (05:28)
[2017-05-14 05:39] VITALS: BP 143/88; PULSE 82; TEMP 36.4; O2SAT 99
--- NOTE | 2017-05-14 06:14 | DIAGNOSTIC IMAGING REPORT ---
CHEST ONE VIEW PORTABLE HISTORY: 52 years-old Female cough acute cough with right arm pain and history of pulmonary embolus. COMPARISON: Portable chest radiograph 05/09/2017 TECHNIQUE: Portable upright AP view of the chest FINDINGS: Cardiac silhouette is upper limits of normal, unchanged. Lungs are mildly hypoinflated with bronchovascular crowding. There is no pneumothorax, pleural effusion or focal airspace consolidation. Bones are grossly intact. Cholecystectomy clips noted. IMPRESSION: No acute cardiopulmonary process. The above report was generated using voice recognition software. It may contain grammatical, syntax or spelling errors. Electronically signed by: Fransisco Owens M.D. 05/14/2017 6:13 AM Dictated Date/Time: 05/14/2017 6:12 AM
[2017-05-14 06:31] LABS: BASO % 0.3 %; BASO ABS # 0.04 K/uL (0-0.2); COMPLETE YES; EOS % 0.2 %; HEMATOCRIT 37.5 % (37-47); IG% 0.4 %; LYMPH % 18.1 %; LYMPH ABS # 2.37 K/uL (1.2-3.4); MEAN CELL VOLUME 88.2 fL (80-100); MEAN CORPUSCULAR HEMOGLOBIN 30.4 pg (25-34); MEAN CORPUSCULAR HGB CONC 34.4 g/dl (32-36); MEAN PLATELET VOLUME 8.8 fL (7.4-10.4); PLATELET COUNT 293 K/uL (130-400); RED BLOOD COUNT 4.25 M/uL (4.2-5.4); WHITE BLOOD COUNT 13.12 K/uL (4.8-10.8)
[2017-05-14] MEDS: PROMETHAZINE HCL INJ 25 MG in SODIUM CHLORIDE 0.9% 50ML 50 ML IV PRN ×2 (06:47→17:53)
[2017-05-14 07:04] VITALS: BP_SYST 121; BP_SYST 126; BP_SYST 143; BP_DIAS 83; BP_DIAS 84; BP_DIAS 93; PULSE 69; PULSE 82; PULSE 90; TEMP 36.6; O2SAT 96
[2017-05-14 07:06] LABS: ALT/SGPT 15 U/L (12-78); BLOOD UREA NITROGEN 20 mg/dl (7-18); BUN/CREATININE RATIO 21.5 (10-20); CALCIUM 8.7 mg/dl (8.5-10.1); CARBON DIOXIDE 24 mmol/L (21-32); CHLORIDE 104 mmol/L (98-107); CREATININE 0.93 mg/dl (0.60-1.20); GLUCOSE 90 mg/dl (70-99); MAGNESIUM 2.1 mg/dl (1.8-2.4); POTASSIUM 3.8 mmol/L (3.5-5.1); SODIUM 137 mmol/L (136-145)
[2017-05-14 07:11] LABS: ALKALINE PHOSPHATASE 94 U/L (45-117); AST/SGOT 6 U/L (15-37)
[2017-05-14 07:47] LABS: PARTIAL THROMBOPLASTIN RATIO 0.9
[2017-05-14] MEDS: VALPROATE SOD IV 250 MG in DEXTROSE 5% 50ML 50 ML IV SCH (09:23)
[2017-05-14] MEDS: TOPIRAMATE 100 MG TAB PO SCH ×2 (09:24→20:44)
[2017-05-14] MEDS: PANTOprazole SOD 40 MG TAB PO SCH ×2 (09:24→20:44)
[2017-05-14] MEDS: ESCITALOPRAM OXALATE 20 MG TAB PO SCH (09:24)
[2017-05-14] MEDS: ERGOCALCIFEROL 50,000 INTER.UNIT CAP PO SCH (09:24)
[2017-05-14] MEDS: ONDANSETRON INJ 2 MG/ML 2 ML VIAL IV PRN ×2 (09:28→16:36)
--- NOTE | 2017-05-14 11:37 | Progress Note ---
Internal Med Progress Note Date of Service: May 14, 2017. Provider Documentation: SUBJECTIVE: again complains of headache right sided chest pain and right arm and face numbness a and sob says Toradol and tramadol not working and requests for something stronger afebrile hemodynamics stable OBJECTIVE: Vital Signs-as noted below Exam: General-alert and oriented. Not in distress. ENT-normal hearing Neck-no neck masses Lungs-cta b/l no wheezing or crackles Heart-s1 and s2 heard regular rate and rhythm, no murmurs Abdomen-soft bowel sounds present non tender no distension Extremities no edema no erythema Neuro-alert and oriented moves extremities Lab data as noted below. ASSESSMENT & PLAN: This is a 52yo woman with a PMH of migraine headaches, psoriatic arthritis, hypothyroidism, h/o DVTs who presents after a syncopal episodes earlier today. Syncope and severe headaches: Witnessed syncopal episode ? Persistent migraine similar presentation last week and had extensive workup with Ct, MRI, echo ,EEG and LP which were unremarkable thought to be complex migraines and was discharged on increased dose of Topamax and Prednisone taper ct head in ER unremarkable Seen by anesthesiology for spinal patch- not placed- appreciate inputs Seen by neurology - mri and mrv head are unremarkable eeg unremarkable most likley persistent migraine and neurology starting on Decadron 2mg iv tid- some what improving yesterday But says worse today and syas tramadol and toradol not working will await neuro input Recurrent syncope echo last admission unremarkable tele monitoring from migraines? consulted cardiology and appreciate inputs Right sided chest pain and right arm and faxce numbness 05/14/17 cxr and ekg and labs unremarkable will trend CE mostly from migraine Meningioma: CT and MRI with 1.3 cm mass consistent with meningioma. Unchanged from previous imaging in 2016 Monitor as out-patient Hypothyroidism: On Synthroid tsh normal Psoriatic arthritis: on Apremilast DVT Ppx: Lovenox DISPOSITION possible d/c in am if stable ambulate in hallway Vital Signs: Date Time Temp Pulse Resp B/P (MAP) Pulse Ox O2 Delivery O2 Flow Rate FiO2 05/14/17 08:50 Room Air 05/14/17 07:04 36.6 69 20 143/93 (110) 96 Room Air 82 126/83 (97) 90 121/84 (96) 05/14/17 05:39 36.4 82 18 143/88 (106) 99 Room Air 9/4/17 00:00 Room Air 05/13/17 23:39 36.8 79 18 124/80 (95) 92 Room Air 05/13/17 20:00 Room Air 05/13/17 15:40 36.9 78 18 144/91 (108) 92 Room Air Lab Results: Results Past 24 Hours Test 05/14/17 06:21 Range/Units White Blood Count 13.12 4.8-10.8 K/uL Red Blood Count 4.25 4.2-5.4 M/uL Hemoglobin 12.9 12.0-16.0 g/dL Hematocrit 37.5 37-47 % Mean Corpuscular Volume 88.2 80-100 fL Mean Corpuscular Hemoglobin 30.4 25-34 pg Mean Corpuscular Hemoglobin Concent 34.4 32-36 g/dl Platelet Count 293 130-400 K/uL Mean Platelet Volume 8.8 7.4-10.4 fL Neutrophils (%) (Auto) 75.0 % Lymphocytes (%) (Auto) 18.1 % Monocytes (%) (Auto) 6.0 % Eosinophils (%) (Auto) 0.2 % Basophils (%) (Auto) 0.3 % Neutrophils # (Auto) 9.84 1.4-6.5 K/uL Lymphocytes # (Auto) 2.37 1.2-3.4 K/uL Monocytes # (Auto) 0.79 0.11-0.59 K/uL Eosinophils # (Auto) 0.03 0-0.5 K/uL Basophils # (Auto) 0.04 0-0.2 K/uL RDW Standard Deviation 46.1 36.4-46.3 fL RDW Coefficient of Variation 14.2 11.5-14.5 % Immature Granulocyte % (Auto) 0.4 % Immature Granulocyte # (Auto) 0.05 0.00-0.02 K/uL Activated Partial Thromboplast Time 23.4 21.0-31.0 SECONDS Partial Thromboplastin Ratio 0.9 D-Dimer < 190 0-500 ug/L FEU Sodium Level 137 136-145 mmol/L Potassium Level 3.8 3.5-5.1 mmol/L Chloride Level 104 98-107 mmol/L Carbon Dioxide Level 24 21-32 mmol/L Anion Gap 9.0 3-11 mmol/L Blood Urea Nitrogen 20 7-18 mg/dl Creatinine 0.93 0.60-1.20 mg/dl Est Creatinine Clear Calc Drug Dose 74.7 ml/min Estimated GFR () 80.8 Estimated GFR (Non- 69.7 BUN/Creatinine Ratio 21.5 10-20 Random Glucose 90 70-99 mg/dl Calcium Level 8.7 8.5-10.1 mg/dl Magnesium Level 2.1 1.8-2.4 mg/dl Total Bilirubin 0.3 0.2-1 mg/dl Aspartate Amino Transf (AST/SGOT) 6 15-37 U/L Alanine Aminotransferase (ALT/SGPT) 15 12-78 U/L Alkaline Phosphatase 94 45-117 U/L Troponin I < 0.015 0-0.045 ng/ml Total Protein 6.5 6.4-8.2 gm/dl Albumin 3.3 3.4-5.0 gm/dl Globulin 3.2 2.5-4.0 gm/dl Albumin/Globulin Ratio 1.0 0.9-2 Lipase 68 73-393 U/L
[2017-05-14] MEDS: TRAMADOL HCL 50 MG TAB PO PRN (14:04)
[2017-05-14] MEDS: KETOROLAC TROMETHAMINE 30 MG/ML VIAL IV PRN (14:04)
[2017-05-14 15:24] VITALS: BP 125/89; PULSE 90; TEMP 36.8; O2SAT 93
[2017-05-14] MEDS: RIZATRIPTAN BENZOATE 10 MG TAB PO PRN (16:37)
--- NOTE | 2017-05-14 17:37 | PROGRESS NOTE ---
DATE: 05/14/2017 SUBJECTIVE: Gladis unfortunately woke up in the morning with chest pain and arm pain and her headaches became worse and the pressure sensation is back. This was despite being on the Decadron every 8 hours and the Depakote every 8 hours. Some of her chest may be referred from gastric irritation and certainly steroids and Depakote may both be implicated in causing this and in light of the fact that her improvement on these medications has not been sustained I am going to back down tothe Depakote in the form of an oral tablet 500 ER every morning and will cut the Decadron down to 2 mg every 12 hours in anticipation of going on one shot a day and then stop it entirely. Again, I am not sure where we can go with this. She is in the throes of protracted variably severe presumptive migraine and probably is not going to be able to go home until the pain gets under better control. We are going to try judicious use of narcotics and alternatives, hopefully these will be effective. I think she is going to be someone that we need to consider Botox therapy for in the future and this will probably be something to be done on an outpatient basis. In an ideal world she would be a candidate for a Headache Clinic, and this may be something that we can arrange outpatient [place] in the future depending on her insurance coverage, but I think the thrust right now is to try to get her back out of the acute care situation if we can. I might consider asking for pain management to drop by for an opinion tomorrow to see if they would consider enrolling her on a Botox program or even try some local injections they find a trigger point, but I certainly could not during this hospital stay nor during the prior one. JULIANA
[2017-05-14] MEDS: AMITRIPTYLINE HCL 10 MG TAB PO SCH (20:44)
[2017-05-14] MEDS: TRAZODONE HCL 50 MG TAB PO SCH (20:44)
[2017-05-14] MEDS: ENOXAPARIN 40 MG/0.4 ML SYR SC SCH (20:45)
[2017-05-15 00:02] VITALS: BP 127/84; PULSE 86; TEMP 36.9; O2SAT 93
[2017-05-15] MEDS: DEXAMETHASONE INJ 2 MG in SYRINGE 0 ML IV SCH ×2 (02:09→12:57)
[2017-05-15 05:44] LABS: HEMATOCRIT 41.1 % (37-47); MEAN CELL VOLUME 89.2 fL (80-100); MEAN CORPUSCULAR HEMOGLOBIN 30.6 pg (25-34); MEAN CORPUSCULAR HGB CONC 34.3 g/dl (32-36); MEAN PLATELET VOLUME 8.9 fL (7.4-10.4); PLATELET COUNT 298 K/uL (130-400); RED BLOOD COUNT 4.61 M/uL (4.2-5.4); WHITE BLOOD COUNT 11.11 K/uL (4.8-10.8)
[2017-05-15] MEDS: LEVOTHYROXINE 25 MCG TAB PO SCH (05:57)
[2017-05-15 06:13] LABS: CREATININE 0.9 mg/dl (0.60-1.20)
[2017-05-15] MEDS ORDERED: DIVALPROEX 500 MG EXTENDED RELEASE TAB PO SCH (06:30)
[2017-05-15 07:19] VITALS: BP_SYST 126; BP_SYST 130; BP_SYST 131; BP_DIAS 84; BP_DIAS 87; BP_DIAS 91; PULSE 71; TEMP 36.7; O2SAT 93
[2017-05-15] MEDS: ONDANSETRON INJ 2 MG/ML 2 ML VIAL IV PRN ×2 (07:42→15:59)
[2017-05-15] MEDS: ESCITALOPRAM OXALATE 20 MG TAB PO SCH (07:42)
[2017-05-15] MEDS: KETOROLAC TROMETHAMINE 30 MG/ML VIAL IV PRN ×2 (07:42→16:00)
[2017-05-15] MEDS: PANTOprazole SOD 40 MG TAB PO SCH ×2 (07:42→22:22)
[2017-05-15] MEDS: TOPIRAMATE 100 MG TAB PO SCH ×2 (07:42→22:23)
[2017-05-15] MEDS: RIZATRIPTAN BENZOATE 10 MG TAB PO PRN ×2 (07:43→17:00)
[2017-05-15 08:00] VITALS: O2SAT 93
[2017-05-15] MEDS ORDERED: BUPIVACAINE 0.5 % 5 MG/1 ML MPF 30ML VIAL INFIL ONE (08:45)
[2017-05-15] MEDS ORDERED: TRIAMCINOLONE ACET 40 MG/ML VIAL XX ONE (08:45)
--- NOTE | 2017-05-15 08:53 | Pain Management Consultation ---
Pain Management Consultation Date of Consultation May 15, 2017. Reason for Consultation Intractable headache History Mrs. Link is a 52 year old white female that has been admitted to the [facility] for syncopal episodes, headaches, and chest pain. Patient has had 3 syncopal episodes over the last 2 weeks but denies any head injury. Patient has had a headache for 5 days and states that the pain starts in the occipital region and radiates frontally. She describes a constant aching and an intermittent sharp pain. She is currently on Decadron, Toradol, Tramadol, Amitriptyline, Maxalt, Imitrex, Fioricet, Topamax, Tylenol, and Ibuprofen. Patient rates her pain an 8/10 currently. She does report associated nausea, vomiting, photosensitivity, photosensitivity, and neck pain. No vision changes or extremity weakness. She does have a history of chronic headaches which have been worsening over the last 6+ months. She reports approximately 15 headache days a month. Case discussed with Dr. Rausch Past Medical/Surgical History (1) Intractable headache (2) Syncope (3) Intractable migraine (4) GERD (gastroesophageal reflux disease) (5) Edema (6) Depression (7) Sleep apnea (8) MINI (iron deficiency anemia) (9) Migraine headache (10) History diabetes mellitus (11) History of DVT (deep vein thrombosis) (12) Psoriatic arthritis (13) History of pulmonary embolism (14) Clostridium difficile colitis (15) Status post appendectomy (16) Status post cholecystectomy (17) Status post gastric bypass for obesity (18) Status post total knee replacement (19) H/O wisdom tooth extraction (20) History of carpal tunnel surgery (21) S/P hysterectomy Family History FHx: rheumatoid arthritis MOTHER GRANDMOTHER Social / Work History Drug Use: none Marital Status: Housing Status: lives with significant other Occupation: employed (has 2 jobs) Allergies Coded Allergies: Oxycodone (Verified Allergy, Intermediate, HIVES, 05/10/17) Vancomycin (Verified Adverse Reaction, Unknown, SEE TEXT. . ., 05/10/17) PT STARTED IV VANC TODAY FOR POSSIBLE OSTEOMYELITIS OF RIGHT FOOT. ALSO ON TIMENTIN 3.1G IV Q6H FROM 03/24/08. PHARM'KINETIC VANC CONSULT PATIENT ORDERED VANC 3G IV Q18H IN 560ML TOTAL VOLUME NSS (~5.3MG/ML). AFTER RECEIVING 136ML PT DEVELOPED BODY ITCHING (NO RASH/REDNESS). KAY TEJADARN CONTACTED DR BANEGAS AND INSTRUCTED TO D/C VANC AND GIVE BENADRYL 50MG PO X1. 03/27/08 @ 1000: SPOKE WITH DR RUIZ: FEELS THIS IS AN INFUSION RELATED RXN BUT CLINICALLY PT IS DOING WORSE AND IS D/C TIMENTIN/VANC AND STARTING TYGACIL. IS THIS AN INFUSION RELATED RXN OR TRUE ALLERGY? I PUT CALL INTO DR BANEGAS TO FURTHER DISCUSS. NO CALL BACK OF TIME OF DOCUMENTATION. AJ Medications Current Inpatient Medications Medications (Trade) Dose Ordered Sig/Monalisa Route Start Time Stop Time Status Last Admin Dose Admin Enoxaparin Sodium (Lovenox Inj) 40 mg Q24H SC 05/09/17 21:00 06/08/17 20:59 05/14/17 20:45 40 MG Acetaminophen (Tylenol Tab) 650 mg Q4H PRN PO 05/09/17 17:30 06/08/17 17:29 Ondansetron HCl (Zofran Inj) 4 mg Q6H PRN IV 05/09/17 17:30 06/08/17 17:29 05/15/17 07:42 4 MG Miscellaneous (Iv Fluids Completed) 1 ea PRN PRN N/A 05/09/17 18:15 05/09/18 18:14 Albuterol (Ventolin Hfa Inhaler) 2 puffs Q6H PRN INH 05/09/17 18:45 06/08/17 18:44 Ergocalciferol (Vitamin D Cap) 50,000 interunit MoFr@0900 PO 05/11/17 09:00 06/10/17 08:59 05/14/17 09:24 50,000 INTERUNIT Escitalopram Oxalate (Lexapro Tab) 20 mg DAILY PO 05/10/17 09:00 06/09/17 08:59 05/15/17 07:42 20 MG Levothyroxine Sodium (Synthroid Tab) 25 mcg DAILYBB PO 05/10/17 06:00 06/09/17 06:59 05/15/17 05:57 25 MCG Pantoprazole Sodium (Protonix Tab) 40 mg BID PO 05/09/17 21:00 06/08/17 20:59 05/15/17 07:42 40 MG Topiramate (Topamax Tab) 100 mg BID PO 05/09/17 21:00 06/08/17 20:59 05/15/17 07:42 100 MG Trazodone HCl (Desyrel Tab) 50 mg HS PO 05/09/17 21:00 06/08/17 20:59 05/14/17 20:44 50 MG Miscellaneous Information (Order Awaiting Action) 1 ea QS N/A 05/10/17 00:00 06/09/17 00:00 Acetaminophen/ Butalbital/ Caffeine (Fioricet Tab) 1 tab Q4H PRN PO 05/10/17 01:00 06/09/17 00:59 05/10/17 17:05 1 TAB Amitriptyline HCl (Elavil Tab) 30 mg HS PO 05/10/17 21:00 06/08/17 20:59 05/14/17 20:44 30 MG Promethazine HCl 25 mg/Sodium Chloride 51 ml @ 204 mls/hr Q6H PRN IV 05/10/17 17:45 06/09/17 17:44 05/14/17 17:53 204 MLS/HR Rizatriptan Benzoate (Maxalt Tab) 10 mg BID PRN PO 05/10/17 17:45 06/09/17 17:44 05/15/17 07:43 10 MG Tramadol HCl (Ultram Tab) 50 mg Q6 PRN PO 05/12/17 10:30 06/11/17 10:29 05/14/17 14:04 50 MG Ketorolac Tromethamine (Toradol Inj) 30 mg Q6H PRN IV 05/13/17 22:00 05/18/17 21:59 05/15/17 07:42 30 MG Ibuprofen (Advil Tab) 400 mg Q6H PRN PO 05/13/17 22:15 06/12/17 22:14 Dexamethasone Sodium Phosphate 2 mg/Syringe 0.5 ml @ 1 mls/min Q12H IV 05/15/17 02:00 06/14/17 01:59 05/15/17 02:09 1 MLS/MIN Divalproex Sodium (Depakote Extended Rel Tab) 500 mg DAILYBB PO 9/5/17 06:30 06/14/17 06:29 05/15/17 05:57 500 MG Bupivacaine HCl (Marcaine 0.5% MPF Inj) 30 ml NOW ONCE INFIL 05/15/17 08:30 05/15/17 08:31 UNV Triamcinolone Acetonide (Kenalog-40 Inj) 40 mg ONE XX 05/15/17 08:30 06/14/17 08:29 UNV Review of Systems Denies any constitutional, cardiac, pulmonary, neurological, GI, , extremity, endocrine, neuro, ENT, dermatological, or musculoskeletal complaints other than stated in HPI Physical Exam Height & Weight: Height 5 feet, 5.00 inches. Weight 85.500 (Kilograms) 188 (Pounds) Last Vital Signs Documentation Date Time Temp Pulse Resp B/P (MAP) Pulse Ox O2 Delivery O2 Flow Rate FiO2 05/15/17 07:19 36.7 71 17 131/87 (102) 93 126/84 (98) 130/91 (104) 05/15/17 00:02 Room Air Exam: GENERAL: Mrs. Link is a 52 y/o white female that appears her stated age. Speech and cognition is intact. Mood and affect is appropriate. Sitting quietly in the exam room, in no acute distress. HEAD: Normocephalic; atraumatic. There is tenderness along the bilateral greater and lesser occipital nerves. No tenderness of the bilateral supraorbital, supratrochlear, and auriculotemporal nerves. EYES: Pupils are round, equal, and reactive to light; EOM intact. ENT: No external ear discharge or lesions. No rhinorrhea or epistaxis. No mucosal lesions. NECK: Full ROM; No midline tenderness. There is moderate tenderness of the C2- 4 facet joints. Moderate spasm of the left trapezius musculature without myoneural trigger points. CHEST: Regular chest respiration and excursion. EXTREMITIES: Moving all extremities appropriately. NEURO: CN II-XII grossly intact with no focal deficits noted. Normal gait. AAO x 3. SKIN: No lesions, erythema, or rashes noted. Laboratory Laboratory Results (Last CBC): 05/15/17 05:32 Imaging MRI Findings 05/11/17 Brain MRI IMPRESSION: No significant change compared to the prior study. No acute intracranial abnormality. Stable 1.4 cm left frontal meningioma. Assessment 1. Intractable Headache 2. Chronic migraine headache 3. Myofascial pain Recommendations 1. Recommend bilateral greater and lesser occipital nerve blocks. Procedure will be performed today. Risks and benefits were reviewed with the patient. Procedure was explained and she would like to proceed. 2. On an outpatient basis, she may be a candidate for Botox injections or repeat occipital nerve blocks. 3. Continue medication regimen as per neurology.
--- NOTE | 2017-05-15 09:26 | Procedure Note ---
Procedure Note Date of Service May 15, 2017. Procedure Note LESSER OCCIPITAL AND GREATER OCCIPITAL NERVE BLOCKS Diagnosis: Intractable headache Side/peripheral nerves injected: bilateral Surgeon: Maribel Corral PA-C Prior to starting, the Patients diagnosis and the procedure were reviewed with the patient in detail. Possible risks and complications including infection, bleeding, damage to surrounding structures and increased pain were discussed. Alternative therapies were also reviewed. Patients questions were answered and they agreed to proceed. Informed consent was obtained. Allergies and medication list was reviewed. The patient was placed in sitting position. Immediately prior to starting the procedure, a time out was conducted with the staff and the patient where the patient was identified, proposed procedure was verified, consent was reviewed and the proper site for the planned procedure was identified. Patient was not given any intravenous sedation and constant verbal contact was maintained throughout the procedure. On examination, no signs of skin breakdown or infection were noted at the injection site. The site was cleansed with alcohol. Sterile technique was used throughout the procedure. After identifying skeletal landmarks, each site was injected with 1cc. Solution contained 4 cc of 0.5% Bupivacaine MPF and 40 mg Kenalog. Aspiration was negative. Hemostasis noted. Patient tolerated the procedure uneventfully without complications.
[2017-05-15] MEDS: PROMETHAZINE HCL INJ 25 MG in SODIUM CHLORIDE 0.9% 50ML 50 ML IV PRN ×2 (10:22→19:30)
[2017-05-15] MEDS: TRAMADOL HCL 50 MG TAB PO PRN ×2 (12:56→19:07)
--- NOTE | 2017-05-15 14:17 | Progress Note ---
Internal Med Progress Note Date of Service: May 15, 2017. Provider Documentation: SUBJECTIVE: The patient was seen and examined Still has severe headache with heaviness inside the head No Associated symptoms whatsoever OBJECTIVE: Vital Signs-as noted below Exam: General-Mild distress at rest Eyes-normal ENT-normal Neck-supple Lungs-clear to ausucltate bilaterally Heart-regular,no murmur Abdomen-Benign,no masses,bowel sound present Extremities-No edema Neuro-AAOx3 No focal neuro deficit Lab data as noted below. ASSESSMENT & PLAN: This is a 52yo woman with a PMH of migraine headaches, psoriatic arthritis, hypothyroidism, h/o DVTs who presents after a syncopal episodes earlier today. Persistent migraine similar presentation last week and had extensive workup with Ct, MRI, echo ,EEG and LP which were unremarkable thought to be complex migraines and was discharged on increased dose of Topamax and Prednisone taper ct head in ER unremarkable Seen by anesthesiology for spinal patch- not placed- appreciate inputs Seen by neurology - MRI and MRA of the head are unremarkable,EEG unremarkable Has been on Decadron 2mg iv tid- some what improving Was seen by Pain therapist S/P Occipital nerve block,may need OP Botox and or Occipital Nerve block as an OP Recurrent Syncope and severe headaches: Witnessed syncopal episode ? ECHO last admission unremarkable No Arrhythmia Consulted cardiology and appreciate inputs Right sided chest pain and right arm and faxce numbness 05/14/17 cxr and ekg and labs unremarkable will trend CE-No ACS mostly from migraine Meningioma: CT and MRI with 1.3 cm mass consistent with meningioma. Unchanged from previous imaging in 2016 Monitor as out-patient Hypothyroidism: On Synthroid TSH normal Psoriatic arthritis: on Apremilast DVT Ppx: Lovenox DISPOSITION Discharge when Headache is controlled Vital Signs: Date Time Temp Pulse Resp B/P (MAP) Pulse Ox O2 Delivery O2 Flow Rate FiO2 05/15/17 08:00 93 Room Air 05/15/17 07:19 36.7 71 17 131/87 (102) 93 126/84 (98) 130/91 (104) 05/15/17 00:02 36.9 86 16 127/84 (98) 93 Room Air 05/15/17 00:00 Room Air 05/14/17 20:00 Room Air 05/14/17 16:00 Room Air 05/14/17 15:24 36.8 90 18 125/89 (232) 93 Room Air Lab Results: Results Past 24 Hours Test 05/15/17 05:32 Range/Units White Blood Count 11.11 4.8-10.8 K/uL Red Blood Count 4.61 4.2-5.4 M/uL Hemoglobin 14.1 12.0-16.0 g/dL Hematocrit 41.1 37-47 % Mean Corpuscular Volume 89.2 80-100 fL Mean Corpuscular Hemoglobin 30.6 25-34 pg Mean Corpuscular Hemoglobin Concent 34.3 32-36 g/dl RDW Standard Deviation 47.3 36.4-46.3 fL RDW Coefficient of Variation 14.5 11.5-14.5 % Platelet Count 298 130-400 K/uL Mean Platelet Volume 8.9 7.4-10.4 fL Creatinine 0.90 0.60-1.20 mg/dl Est Creatinine Clear Calc Drug Dose 77.2 ml/min Estimated GFR () 84.0 Estimated GFR (Non- 72.5
[2017-05-15 15:59] VITALS: BP 116/80; PULSE 81; TEMP 36.6; O2SAT 94
--- NOTE | 2017-05-15 16:48 | PROGRESS NOTE ---
DATE: 05/15/2017 DATE: 05/15/2017 Gladis was seen by pain management today. Diagnosis of possible myofascial pain was made, she had bioccipital nerve blocks which as of yet have had no appreciable effect and she still grade now 10/10 pain and a pressure sensation and nausea. The Decadron and Depakote clearly have not made any difference and may actually be making things worse in this setting at this time. I am going to stop both medications. Steroids really have not helped. I was hoping that the Decadron would and indeed it appeared that perhaps for a day it did but this may have been serendipitous rather than cause and effect. At this point, then we are just going to go with her current program of Topamax, Elavil etc and will see if after another 24 hours the injections have had a beneficial effect. Pain management has suggested the possibility of outpatient Botox injections or repeat occipital nerve blocks and I will see how she is doing tomorrow, but for now unfortunately we still do not have an effective discharge plan as it is very difficult to send the patient home with reported pain scale 10/10 despite the fact that she looks to be in a relative degree of comfort. JULIANA
[2017-05-15 21:10] VITALS: BP_SYST 111; BP_SYST 120; BP_SYST 79; BP_DIAS 57; BP_DIAS 77; BP_DIAS 80; PULSE 91; TEMP 36.5; O2SAT 91
[2017-05-15] MEDS: AMITRIPTYLINE HCL 10 MG TAB PO SCH (22:22)
[2017-05-15] MEDS: TRAZODONE HCL 50 MG TAB PO SCH (22:22)
[2017-05-15] MEDS: ENOXAPARIN 40 MG/0.4 ML SYR SC SCH (22:23)
[2017-05-15 23:05] VITALS: BP 113/76; PULSE 102; TEMP 36.4; O2SAT 94
[2017-05-16] VITALS (7 sets, daily range): BP systolic 90–119; BP diastolic 60–80; PULSE 76–97; TEMP 36.4–36.7; O2SAT 91–99
[2017-05-16] MEDS: KETOROLAC TROMETHAMINE 30 MG/ML VIAL IV PRN ×2 (00:23→16:12)
[2017-05-16] MEDS: ONDANSETRON INJ 2 MG/ML 2 ML VIAL IV PRN ×3 (00:23→13:32)
[2017-05-16] MEDS: LEVOTHYROXINE 25 MCG TAB PO SCH (06:30)
[2017-05-16] MEDS: ESCITALOPRAM OXALATE 20 MG TAB PO SCH (09:16)
[2017-05-16] MEDS: TOPIRAMATE 100 MG TAB PO SCH ×2 (09:17→21:05)
[2017-05-16] MEDS: PANTOprazole SOD 40 MG TAB PO SCH ×2 (09:17→21:05)
[2017-05-16] MEDS: RIZATRIPTAN BENZOATE 10 MG TAB PO PRN (09:27)
[2017-05-16] MEDS: PROMETHAZINE HCL INJ 25 MG in SODIUM CHLORIDE 0.9% 50ML 50 ML IV PRN ×2 (09:27→16:12)
--- NOTE | 2017-05-16 10:54 | Medical Student: [facility] ---
Consultation Date of Consultation: May 16, 2017. Requesting Physician: Dr. Carrion Attending Physician: Dr. Miller Reason for Consultation: consult question: depression History of Present Illness Patient is a 52 year old female with an extensive history of depression, thought in part secondary to her illnesses and caregiver role in her family. She said she first felt her depression in 2003 after an initial separation with her current . She has been on Lexapro 20mg for quite some time and it not doing much anymore. She also is on amitriptyline 30mg since 6 months ago, she is on it for pain as well. She takes 50mg trazodone at night. She describes herself as having lost interest in doing things, feeling depressed, having trouble falling asleep and then sleeping too much, having a poor appetite and a 32 pound weight loss over the past 2 months, feeling like a failure, having a foggy feeling, losing things around the house, and having trouble concentrating at times. She has been crying by herself when she is alone. She denied thoughts of suicide or self harm. She said that these problems have made it extremely difficult for her to function day to day. Her daughter has multiple sclerosis and her has high expectations of her role in the home. She used two work but has been let off work at to jobs in the past several months do to problems maintaining competence in the workplace, due to her migraines and maybe also depression. Family History Mother has severe depression, untreated Half sister has depression, treatment unknown Father had alcohol use disorder Social History Smoking Status: Never Smoker History of Alcohol Use: No Drug Use: none Marital Status: Housing Status: lives with significant other Occupation Status: unemployed Allergies Coded Allergies: Oxycodone (Verified Allergy, Intermediate, HIVES, 05/10/17) Vancomycin (Verified Adverse Reaction, Unknown, SEE TEXT. . ., 05/10/17) PT STARTED IV VANC TODAY FOR POSSIBLE OSTEOMYELITIS OF RIGHT FOOT. ALSO ON TIMENTIN 3.1G IV Q6H FROM 03/24/08. PHARM'KINETIC VANC CONSULT PATIENT ORDERED VANC 3G IV Q18H IN 560ML TOTAL VOLUME NSS (~5.3MG/ML). AFTER RECEIVING 136ML PT DEVELOPED BODY ITCHING (NO RASH/REDNESS). KAY TEJADA RN CONTACTED DR BANEGAS AND INSTRUCTED TO D/C VANC AND GIVE BENADRYL 50MG PO X1. 03/27/08 @ 1000: SPOKE WITH DR RUIZ: FEELS THIS IS AN INFUSION RELATED RXN BUT CLINICALLY PT IS DOING WORSE AND IS D/C TIMENTIN/VANC AND STARTING TYGACIL. IS THIS AN INFUSION RELATED RXN OR TRUE ALLERGY? I PUT CALL INTO DR BANEGAS TO FURTHER DISCUSS. NO CALL BACK OF TIME OF DOCUMENTATION. AJ Medications Current Inpatient Medications Medications (Trade) Dose Ordered Sig/Monalisa Route Start Time Stop Time Status Last Admin Dose Admin Enoxaparin Sodium (Lovenox Inj) 40 mg Q24H SC 05/09/17 21:00 06/08/17 20:59 05/15/17 22:23 40 MG Acetaminophen (Tylenol Tab) 650 mg Q4H PRN PO 05/09/17 17:30 06/08/17 17:29 Ondansetron HCl (Zofran Inj) 4 mg Q6H PRN IV 05/09/17 17:30 06/08/17 17:29 05/16/17 06:36 4 MG Miscellaneous (Iv Fluids Completed) 1 ea PRN PRN N/A 05/09/17 18:15 05/09/18 18:14 Albuterol (Ventolin Hfa Inhaler) 2 puffs Q6H PRN INH 05/09/17 18:45 06/08/17 18:44 Ergocalciferol (Vitamin D Cap) 50,000 interunit MoFr@0900 PO 05/11/17 09:00 06/10/17 08:59 05/14/17 09:24 50,000 INTERUNIT Escitalopram Oxalate (Lexapro Tab) 20 mg DAILY PO 05/10/17 09:00 06/09/17 08:59 05/16/17 09:16 20 MG Levothyroxine Sodium (Synthroid Tab) 25 mcg DAILYBB PO 05/10/17 06:00 06/09/17 06:59 05/16/17 06:30 25 MCG Pantoprazole Sodium (Protonix Tab) 40 mg BID PO 05/09/17 21:00 06/08/17 20:59 05/16/17 09:17 40 MG Topiramate (Topamax Tab) 100 mg BID PO 05/09/17 21:00 06/08/17 20:59 05/16/17 09:17 100 MG Trazodone HCl (Desyrel Tab) 50 mg HS PO 05/09/17 21:00 06/08/17 20:59 05/15/17 22:22 50 MG Miscellaneous Information (Order Awaiting Action) 1 ea QS N/A 05/10/17 00:00 06/09/17 00:00 Acetaminophen/ Butalbital/ Caffeine (Fioricet Tab) 1 tab Q4H PRN PO 05/10/17 01:00 06/09/17 00:59 05/10/17 17:05 1 TAB Amitriptyline HCl (Elavil Tab) 30 mg HS PO 05/10/17 21:00 06/08/17 20:59 05/15/17 22:22 30 MG Promethazine HCl 25 mg/Sodium Chloride 51 ml @ 204 mls/hr Q6H PRN IV 05/10/17 17:45 06/09/17 17:44 05/16/17 09:27 204 MLS/HR Rizatriptan Benzoate (Maxalt Tab) 10 mg BID PRN PO 05/10/17 17:45 06/09/17 17:44 05/16/17 09:27 10 MG Ketorolac Tromethamine (Toradol Inj) 30 mg Q6H PRN IV 05/13/17 22:00 05/18/17 21:59 05/16/17 00:23 30 MG Tapentadol (Nucynta Tab) 50 mg Q6H PRN PO 05/16/17 09:00 06/15/17 08:59 Physical Exam Date Time Temp Pulse Resp B/P (MAP) Pulse Ox O2 Delivery O2 Flow Rate FiO2 05/16/17 08:12 99 05/16/17 08:09 36.7 76 18 119/80 (93) 95 Room Air 05/16/17 00:00 Room Air 05/16/17 00:00 36.7 91 20 116/79 (91) 92 Room Air 05/15/17 23:05 36.4 102 18 113/76 (88) 94 Room Air 05/15/17 21:10 36.5 91 20 120/80 (93) 91 Room Air 111/77 (88) 79/57 (64) 05/15/17 15:59 36.6 81 18 116/80 (92) 94 Room Air 05/15/17 15:40 Room Air General Appearance: WD/WN, + mild distress Mental Status Exam: During interview patient is: alert and oriented Appearance: appropriate dress and groomed Eye contact is: good Motor behavior is: no abnormal motor movements Speech: normal in rate, rhythm, and volume Affect: congruent with mood, depressed Mood:depressed Thought process: normal Thought content: reality based without delusions Suicidal thoughts are: denied Homicidal thoughts are: denied Hallucinations: denied auditory and visual Cognition: grossly intact Intelligence estimated to be: average Insight: good Judgement: fair Assessment & Plan Major depressive disorder, without catatonia, without psychosis Administered PHQ-9 score of 18/30 - moderately severe -Discussed treatment about medications: she is currently taking 30mg amitriptyline, 20mg Lexapro, 50 mg trazodone daily for her sleep/depression. Switch amitriptyline (or add cymbalta to amitriptyline) to Cymbalta 20mg for 1 week then titrating up to Cymbalta 40mg -Recommended she follow up with establishing a relationship with a psychiatrist and psychologist for cognitive therapy in the future.
[2017-05-16] MEDS: TAPENTADOL HCL 50 MG TAB PO PRN ×2 (13:33→21:06)
--- NOTE | 2017-05-16 14:19 | Progress Note ---
Internal Med Progress Note Date of Service: May 16, 2017. Provider Documentation: SUBJECTIVE: The patient was seen and examined Still has severe headache with heaviness inside the head No Associated symptoms whatsoever S/P Occipital Nerve block without any effect OBJECTIVE: Vital Signs-as noted below Exam: General-Mild distress at rest Eyes-normal ENT-normal Neck-supple Lungs-clear to ausucltate bilaterally Heart-regular,no murmur Abdomen-Benign,no masses,bowel sound present Extremities-No edema Neuro-AAOx3 No focal neuro deficit Lab data as noted below. ASSESSMENT & PLAN: This is a 52yo woman with a PMH of migraine headaches, psoriatic arthritis, hypothyroidism, h/o DVTs who presents after a syncopal episodes earlier today. Persistent migraine similar presentation last week and had extensive workup with Ct, MRI, echo ,EEG and LP which were unremarkable thought to be complex migraines and was discharged on increased dose of Topamax and Prednisone taper ct head in ER unremarkable Seen by anesthesiology for spinal patch- not placed- appreciate inputs Seen by neurology - MRI and MRA of the head are unremarkable,EEG unremarkable Has been on Decadron 2mg iv tid- some what improving Was seen by Pain therapist-appreciate input S/P Occipital nerve block,may need OP Botox and or Occipital Nerve block as an OP No help with occipital nerve block Nucynta added Recurrent Syncope and severe headaches: Witnessed syncopal episode ? ECHO last admission unremarkable No Arrhythmia Consulted cardiology and appreciate inputs Right sided chest pain and right arm and faxce numbness 05/14/17 cxr and ekg and labs unremarkable will trend CE-No ACS mostly from migraine Severe Depression Appreciate psychiatry input Medication adjusted Meningioma: CT and MRI with 1.3 cm mass consistent with meningioma. Unchanged from previous imaging in 2016 Monitor as out-patient Hypothyroidism: On Synthroid TSH normal Psoriatic arthritis: on Apremilast DVT Ppx: Lovenox DISPOSITION Discharge when Headache is controlled Vital Signs: Date Time Temp Pulse Resp B/P (MAP) Pulse Ox O2 Delivery O2 Flow Rate FiO2 05/16/17 08:45 Room Air 05/16/17 08:12 99 Room Air 05/16/17 08:09 36.7 76 18 119/80 (93) 95 Room Air 05/16/17 00:00 Room Air 05/16/17 00:00 36.7 91 20 116/79 (91) 92 Room Air 05/15/17 23:05 36.4 102 18 113/76 (88) 94 Room Air 05/15/17 21:10 36.5 91 20 120/80 (93) 91 Room Air 111/77 (88) 79/57 (64) 05/15/17 15:59 36.6 81 18 116/80 (92) 94 Room Air 05/15/17 15:40 Room Air
--- NOTE | 2017-05-16 14:22 | Psychiatric Consultation ---
Consultation Date of Consultation May 16, 2017. Identifying Data Gladis is a 52-year-old white female with a history of depression and multiple medical problems who is admitted for intractable headache. Psychiatry was consulted for depression. Chief Complaint "I've been stressed". History of Present Illness Patient reports a history of depression diagnosed about 13 years ago in the context of marital issues. She has been treated by her PCP with escitalopram for years, with initial good response, but mood has been worsening for the past year and a half in the context of multiple medical problems and numerous hospitalizations. She also endorses chronic strain within the family, feeling that she is the caregiver for everyone else, but they do not appreciate her or believes that she has real medical problems. She says that her has been pestering her about when she will come home, telling her that he can't believe her doctors want her to stay in the hospital longer. She reports low mood, decreased interest, difficulty with sleep onset, feels tired and unable to get out of bed in the morning, decreased appetite with a 32 pound weight loss in the past 2 months, poor concentration, and increased tearfulness. She denies thoughts of suicide or self-harm. Her mood difficulties have made it hard for her to function, and she has lost 2 jobs in the past several months due to her medical issues. She scored an 18 on the PHQ-9, indicating moderate to severe depression. She takes trazodone nightly for sleep, and notes that she was previously taking 100 mg, but her dose was decreased when the amitriptyline was added for headaches. Past Psychiatric History Current OP Treatment: no current treatment (PCP prescribes psychotropic medication) Prior OP Treatment: therapist Prior Psych Hospitalizations: none Suicide Attempts: No Past Medication Trials None Past Medical/Surgical History (1) Intractable migraine (2) GERD (gastroesophageal reflux disease) (3) Sleep apnea (4) MINI (iron deficiency anemia) (5) Psoriatic arthritis Allergies Allergies: Coded Allergies: Oxycodone (Verified Allergy, Intermediate, HIVES, 05/10/17) Vancomycin (Verified Adverse Reaction, Unknown, SEE TEXT. . ., 05/10/17) PT STARTED IV VANC TODAY FOR POSSIBLE OSTEOMYELITIS OF RIGHT FOOT. ALSO ON TIMENTIN 3.1G IV Q6H FROM 03/24/08. PHARM'KINETIC VANC CONSULT PATIENT ORDERED VANC 3G IV Q18H IN 560ML TOTAL VOLUME NSS (~5.3MG/ML). AFTER RECEIVING 136ML PT DEVELOPED BODY ITCHING (NO RASH/REDNESS). KAY TEJADA RN CONTACTED DR BANEGAS AND INSTRUCTED TO D/C VANC AND GIVE BENADRYL 50MG PO X1. 03/27/08 @ 1000: SPOKE WITH DR RUIZ: FEELS THIS IS AN INFUSION RELATED RXN BUT CLINICALLY PT IS DOING WORSE AND IS D/C TIMENTIN/VANC AND STARTING TYGACIL. IS THIS AN INFUSION RELATED RXN OR TRUE ALLERGY? I PUT CALL INTO DR BANEGAS TO FURTHER DISCUSS. NO CALL BACK OF TIME OF DOCUMENTATION. AJ Home Medications Scheduled Amitriptyline Hcl (Elavil), 20 MG PO HS Apremilast (Otezla), 30 MG PO BID Ergocalciferol (Vitamin D 72581 Unit), 50,000 INTER.UNIT PO 2XWK Escitalopram Oxalate (Escitalopram Oxalate), 20 MG PO DAILY Hyoscyamine Sulfate (Levsin), 0.125 MG PO TID Levothyroxine Sodium (Levothyroxine Sodium), 25 MCG PO DAILY Pantoprazole (Pantoprazole Sodium), 40 MG PO BID Prednisone Tab (Prednisone), 0 PO UD Topiramate (Topiramate), 100 MG PO BID Trazodone Hcl (Trazodone), 50 MG PO HS Scheduled PRN Albuterol Hfa (Ventolin Hfa), 2 PUFFS INH Q6H PRN for Shortness of Breath Ondansetron Odt (Zofran Odt), 8 MG SL Q8 PRN for Nausea Promethazine HCl (Promethazine HCl), 25 MG PO Q8 PRN for Nausea or Vomiting Sumatriptan Succinate (Sumatriptan Succinate), 50 MG PO UD PRN for Migraine Family History FHx: rheumatoid arthritis MOTHER GRANDMOTHER History of Suicide: No History of Substance Abuse: Yes (father with alcohol abuse) Psychiatric History: Yes (mother and sister with depression) Alcohol Use Alcohol Use In Past 12 Months: No Smoking Use Smoking Status: Never Smoker Substance History Denies substance abuse Personal History Lives in: lives in [place] with her and daughter Work History: Unemployed, having lost 2 jobs recently Relationship History: Review of Systems Positive for headache Examination Vital Signs Vital Signs Past 12 Hours Date Time Temp Pulse Resp B/P (MAP) Pulse Ox O2 Delivery O2 Flow Rate FiO2 05/16/17 08:45 Room Air 05/16/17 08:12 99 Room Air 05/16/17 08:09 36.7 76 18 119/80 (93) 95 Room Air Mental Examination During interview pt is: alert and oriented, cooperative Appearance: appropriately dressed, appropriately groomed Eye contact is: good Motor behavior is: no abnormal motor movements Speech: normal in rate, rhythm & volume Affect: mood congruent, depressed Mood is: depressed Thought process: goal directed Thought content: reality based without delusions Suicidal thought are: denied Homicidal thoughts are: denied Hallucinations: denies auditory, denies visual Cognition: memory grossly intact, attention grossly intact, language grossly intact Intelligence estimated to be: average Insight: fair Judgement: fair Impression / Recommendations Impression 52-year-old white female with a history of multiple medical problems and depression managed by her PCP, who is admitted for intractable migraine. Psychiatry is consulted for depression, and she reports worsening mood over the past year and a half in the context of multiple medical issues and hospitalizations. She has been on Lexapro 20 mg for years from her PCP, and is willing to try a different antidepressant. Recommendations (1) Depression Discussed a trial of duloxetine to target mood and chronic pain. Reviewed risks , benefits, and side effects, including GI side effects, headaches, and serotonin syndrome. Reviewed that it will take 4-6 weeks to see the full effect , and her dose may need to be increased further as an outpatient. She would like to continue medication management with her PCP. So we'll get a release and send this consult. Discontinue escitalopram and start duloxetine 30 mg daily tomorrow, and increase as tolerated while in the hospital. She is also agreeable to outpatient therapy, and will ask the psychiatric nurse liaison to return and facilitate a referral.
--- NOTE | 2017-05-16 14:39 | Pain Management Progress Note ---
Pain Management Progress Note Date of Service May 16, 2017. Subjective Ms. Link was seen today for follow up on rounds. She reports no efficacy form bilateral greater and lesser occipital nerve blocks performed yesterday and nor form her current medical regimen. Today she reports her headache to be in the temporal regions and states that the location of her headaches vary frequently. She rates her symptoms as 8/10 when severe and 4/10 when minimal. She reports constant symptoms characterized as a throbbing sensation. No change is noted with change in position and activity. No prodrome is noted. She reports significant psychosocial stressors recently. She further reports that she was determined from her employment several days ago because of missing many days of work due to her medical issues. She further reports being laid off from her previous job in November due to missing many day similarly for history of diverticulosis. She further states that she has a who has "back issues" and is disabled as a result. She has a 26-year-old daughter with multiple sclerosis with exacerbation recently. She reports being the major source of income for the family and being the breadwinner in the family. As result of her implement determinations, she reports financial stressors. She reports her headaches are magnified when she is under physical or psychological stress. Objective Vital Signs: Last Vital Signs Documentation Date Time Temp Pulse Resp B/P (MAP) Pulse Ox O2 Delivery O2 Flow Rate FiO2 05/16/17 08:45 Room Air 05/16/17 08:12 99 05/16/17 08:09 36.7 76 18 119/80 (93) Physical Exam: Exam shows Ms. Link to be awake and alert. She is sitting upright in her bed in a darkened room. She is pleasant and responds appropriately. She is a flat affect and does not appear the pain distress at the present time. Extraocular movements are intact. Pupils are reactive to light and accommodation. Grossly, cranial nerves II through XII are intact. She has no gross sensorimotor deficits in the lower extremities. Her headaches are not reproducible by palpation over the major muscles of head and neck. No trigger points identifiable. Provocative testing the facet joints produces no pain in the cervical spine. Tinel's over the greater, this occipital nerves is unremarkable. Head and neck exam is otherwise unremarkable. Imaging MRI: non enhanced MRI Findings MRI of the brain: No significant change compared to the prior study. No acute intracranial abnormality. Stable 1.4 cm left frontal meningioma. Electronically signed by: Rob Wasserman M.D. 05/11/2017 10:10 PM Dictated Date/Time: 05/11/2017 10:02 PM [place] Drug Monitoring Program Search Results: patient reviewed within database, no issues identified Opioid Risk Assessment Risk assessment performed, moderate risk identified DIRE Score=11 Assessment 1. Migraine headaches by history. 2. Depression/anxiety. 3. Behavioral component with recent psychosocial stressors contributing to patient's current symptoms. Recommendations 1. Discontinue ibuprofen as patient is currently receiving ketorolac as well. 2. Discontinue tramadol. 3. Recommend Tapentadol on when necessary basis. Orders written. 4. Recommend psychiatric evaluation to assist with anxiety/depression especially in view of psychosocial stressors contributing to her current symptoms. Additionally, she may benefit from change of antidepressant to duloxetine to assist with muscular skeletal pain as well as to optimize her antidepressive therapy.
--- NOTE | 2017-05-16 16:59 | PROGRESS NOTE ---
DATE: 05/16/2017 DATE: 05/16/2017 Gladis looks a little better today. She is now on Nucynta per the pain management group, thinks this may be helping her pain a little better. While this is still a controlled substance it is less potent than many of the others she has been on before. Psychiatry has seen her and agrees that she has a significant depression and is going to switch her to Cymbalta from Lexapro keeping all the other medications I believe the same including the Elavil and trazodone which she is going to need outpatient followup for this. Currently, I do not have any further suggestions regarding her headaches. She is going to need to follow up with pain management for potential second injections in the occipital area or perhaps some Botox. I will be happy to see her in the office in about 6-8 weeks and she may have a return visit scheduled then. She is going to need to see psychiatry as well and discuss the management of her depression, which is significant according to the notes that I glean in the chart. Apparently she is going to try to get home tomorrow. She rates her current head pain at 7/10 which is better than 10/10 and frankly she looks as comfortable as she has throughout most of the hospital stay with exception that the room is dark. Neurology is now going to sign off the case anticipating her discharged tomorrow. Please refer to my post discharge plans outlined above MTDD
[2017-05-16] MEDS: AMITRIPTYLINE HCL 10 MG TAB PO SCH (21:05)
[2017-05-16] MEDS: ENOXAPARIN 40 MG/0.4 ML SYR SC SCH (21:05)
[2017-05-16] MEDS: TRAZODONE HCL 50 MG TAB PO SCH (21:09)
[2017-05-17] MEDS: TAPENTADOL HCL 50 MG TAB PO PRN (03:04)
[2017-05-17] MEDS: ONDANSETRON INJ 2 MG/ML 2 ML VIAL IV PRN (06:10)
[2017-05-17] MEDS: LEVOTHYROXINE 25 MCG TAB PO SCH (06:10)
[2017-05-17 07:13] VITALS: BP_SYST 101; BP_SYST 116; BP_SYST 118; BP_DIAS 67; BP_DIAS 78; BP_DIAS 80; PULSE 80; TEMP 36.1; O2SAT 95
[2017-05-17] MEDS: TOPIRAMATE 100 MG TAB PO SCH (07:43)
[2017-05-17] MEDS: PANTOprazole SOD 40 MG TAB PO SCH (07:43)
[2017-05-17] MEDS ORDERED: DULOXETINE (CYMBALTA) 30 MG CAP PO SCH (09:00)
[2017-05-17] MEDS: PROMETHAZINE HCL INJ 25 MG in SODIUM CHLORIDE 0.9% 50ML 50 ML IV PRN (09:14)
--- NOTE | 2017-05-17 09:36 | Pain Management Progress Note ---
Pain Management Progress Note Date of Service May 17, 2017. Subjective Mrs. Link is a 52 year old white female with intractable headaches. She has failed to noticed any relief with occipital nerve blocks which were performed 2 days ago. Today she does note a moderate improvement in the headache. Pain is rated 6/10 currently with the use of Nucynta 50mg IR. Patient does report mild nausea. She does report a moderate improvement and thinks that she may be ready to be discharged to home today. Case discussed with Dr. Rausch Objective Vital Signs: Last Vital Signs Documentation Date Time Temp Pulse Resp B/P (MAP) Pulse Ox O2 Delivery O2 Flow Rate FiO2 05/17/17 08:00 Room Air 05/17/17 07:13 36.1 80 20 101/67 (78) 95 80 118/80 (93) 80 116/78 (91) Physical Exam: GENERAL: Mrs. Link is a 52 y/o white female that appears her stated age. Speech and cognition is intact. Mood and affect is appropriate. Sitting quietly in the exam room, in no acute distress. HEAD: Normocephalic; atraumatic. There is tenderness along the bilateral greater and lesser occipital nerves. No tenderness of the bilateral supraorbital, supratrochlear, and auriculotemporal nerves. EYES: Pupils are round, equal, and reactive to light; EOM intact. NECK: Full ROM; No midline tenderness. There is moderate tenderness of the C2- 4 facet joints. Moderate spasm of the left trapezius musculature without myoneural trigger points. NEURO: CN II-XII grossly intact with no focal deficits noted. Normal gait. AAO x 3. SKIN: No erythema, edema, or drainage of the injection sites Laboratory Laboratory Findings 05/15/17 05:32 Assessment 1. Intractable Headache 2. Chronic migraine headache 3. Myofascial pain Recommendations 1. Patient reports moderate relief of headache and is ready to be discharged to home. 2. Patient is welcome to be seen at the Pain [facility] on an outpatient basis for evaluation of either repeat occipital nerve blocks or possible Botox injections.
--- NOTE | 2017-05-17 12:00 | Progress Note ---
Internal Med Progress Note Date of Service: May 17, 2017. Provider Documentation: SUBJECTIVE: The patient was seen and examined Still has severe headache with heaviness inside the head No Associated symptoms whatsoever S/P Occipital Nerve block without any effect Started on Nucynta and working well OBJECTIVE: Vital Signs-as noted below Exam: General-No distress at rest Eyes-normal ENT-normal Neck-supple Lungs-clear to ausucltate bilaterally Heart-regular,no murmur Abdomen-Benign,no masses,bowel sound present Extremities-No edema Neuro-AAOx3 No focal neuro deficit Lab data as noted below. ASSESSMENT & PLAN: This is a 52yo woman with a PMH of migraine headaches, psoriatic arthritis, hypothyroidism, h/o DVTs who presents after a syncopal episodes earlier today. Persistent migraine similar presentation last week and had extensive workup with Ct, MRI, echo ,EEG and LP which were unremarkable thought to be complex migraines and was discharged on increased dose of Topamax and Prednisone taper ct head in ER unremarkable Seen by anesthesiology for spinal patch- not placed- appreciate inputs Seen by neurology - MRI and MRA of the head are unremarkable,EEG unremarkable Has been on Decadron 2mg iv tid- some what improving Was seen by Pain therapist-appreciate input S/P Occipital nerve block,may need OP Botox and or Occipital Nerve block as an OP No help with occipital nerve block Nucynta added and working well Will discharge home today Recurrent Syncope and severe headaches: Witnessed syncopal episode ? ECHO last admission unremarkable No Arrhythmia Consulted cardiology and appreciate inputs No more episodes Right sided chest pain and right arm and faxce numbness 05/14/17 cxr and ekg and labs unremarkable will trend CE-No ACS No more pain Severe Depression Appreciate psychiatry input Medication adjusted Has OP appointment with psychiatrist Meningioma: CT and MRI with 1.3 cm mass consistent with meningioma. Unchanged from previous imaging in 2016 Monitor as out-patient Hypothyroidism: On Synthroid TSH normal Psoriatic arthritis: on Apremilast DVT Ppx: Lovenox DISPOSITION Discharge home today Discussed about Importance of keping appointments with PCP,Psychiatry,Pain therapist and Neurology. Vital Signs: Date Time Temp Pulse Resp B/P (MAP) Pulse Ox O2 Delivery O2 Flow Rate FiO2 05/17/17 08:00 Room Air 05/17/17 07:13 36.1 80 20 101/67 (78) 95 Room Air 80 118/80 (93) 80 116/78 (91) 05/17/17 00:00 Room Air 05/16/17 23:47 36.5 97 18 104/71 (82) 91 Room Air 05/16/17 20:30 36.5 82 18 97/65 (76) 92 Room Air 101/69 (80) 90/60 (70) 05/16/17 20:00 94 Room Air 05/16/17 15:47 Room Air 05/16/17 15:43 36.4 84 18 103/67 (79) 94 Room Air
[2017-05-17] MEDS ORDERED: NCY50 PO (12:05)
[2017-05-17] MEDS ORDERED: CYM30 PO (12:05)
[2017-05-17] MEDS ORDERED: AMIT10TA6 PO (12:05)
[2017-05-17] MEDS ORDERED: ONDA8TAB62 SL (12:05)
--- NOTE | 2017-05-17 12:09 | Discharge Instructions ---
Discharge Instructions Date of Service May 17, 2017. Admission Reason for Admission: Intractable Migraine Discharge Discharge Diagnosis / Problem: Intractable Headache,Persistent Migraine Discharge Goals Goal(s): Prevent Disease Progression Activity Recommendations Activity Limitations: resume your previous activity . Instructions / Follow-Up Instructions / Follow-Up Dr Pinon on 05/21/17 at 10:45 AM,Please make an appointment with Pain therapist on Sunday.Please keep foollow up appointments with Psychiatry and Neurology Current Hospital Diet Patient's current hospital diet: Low Fat Diet Discharge Diet Recommended Diet: Low Fat Diet Pending Studies Studies pending at discharge: no Medical Emergencies . Who to Call and When: Medical Emergencies: If at any time you feel your situation is an emergency, please call 911 immediately. . Non-Emergent Contact Non-Emergency issues call your: Primary Care Provider . Past History Medical & Surgical History: (1) Syncope (2) Intractable migraine (3) Intractable headache (4) Depression (5) Sleep apnea (6) MINI (iron deficiency anemia) (7) History of DVT (deep vein thrombosis) (8) History diabetes mellitus (9) Psoriatic arthritis (10) Status post appendectomy (11) Status post cholecystectomy (12) Status post gastric bypass for obesity (13) Status post total knee replacement (14) H/O wisdom tooth extraction (15) History of carpal tunnel surgery (16) S/P hysterectomy (17) FHx: rheumatoid arthritis . "Provider Documentation" section prepared by Isabelal Wilkerson. . VTE Core Measure Inpt VTE Proph given/why not?: Enoxaparin (Lovenox)SQ
[2017-05-17 12:19] VITALS: BP 116/78; PULSE 80; TEMP 36.1; O2SAT 95
--- NOTE | 2017-05-18 08:00 | Discharge Summary ---
Discharge Summary Date of Service May 18, 2017. Discharge Summary Admission Date: May 09, 2017 at 16:53 Discharge Date: May 17, 2017 Discharge Disposition: Home Principal Diagnosis: Intractable Headache,Persistent Migraine Secondary Diagnoses/Problems: Please see H&P and Hospital Progress note Consultations: Neurology.Psychiatry and Pain therapist Medication Reconciliation New Medications: Duloxetine HCl (Duloxetine HCl) 30 Mg Cap 30 MG PO QAM for 30 Days, #30 CAP Tapentadol HCl (Nucynta) 50 Mg Tab 50 MG PO Q6H PRN for Pain for 3 Days, #12 TAB As advised by the Pain therapist and further medications as per Pain therapist. Changed Medications: Amitriptyline Hcl (Elavil) 10 Mg Tab 30 MG PO HS, #30 (Changed from: 20 MG) Continued Medications: Albuterol Hfa (Ventolin Hfa) 200 Puffs/72237 Mcg Aers 2 PUFFS INH Q6H PRN for Shortness of Breath Apremilast (Otezla) 30 Mg Tab 30 MG PO BID Ergocalciferol (Vitamin D 71902 Unit) 50,000 Unit Cap 96815 INTER.UNIT PO 2XWK TAKE THIS MEDICATION EVERY SUNDAY AND SUNDAY Hyoscyamine Sulfate (Levsin) 0.125 Mg Tab 0.125 MG PO TID Levothyroxine Sodium (Levothyroxine Sodium) 25 Mcg Tab 25 MCG PO DAILY Ondansetron Odt (Zofran Odt) 8 Mg Soltab 8 MG SL Q8 PRN for Nausea for 7 Days, #21 TAB (This prescription has been renewed) PLACE TABLET ON TONGUE AND ALLOW TO DISSOLVE Pantoprazole (Pantoprazole Sodium) 40 Mg Tab 40 MG PO BID Promethazine HCl (Promethazine HCl) 25 Mg Tab 25 MG PO Q8 PRN for Nausea or Vomiting Sumatriptan Succinate (Sumatriptan Succinate) 50 Mg Tab 50 MG PO UD PRN for Migraine TAKE 1 TABLET AT ONSET OF HEADACHE MAY REPEAT IN 2 HOURS IF NEEDED.MAXIMUM OF 2 TABLETS IN 24 HOURS. Topiramate (Topiramate) 100 Mg Tab 100 MG PO BID, #60 TAB 5 Refills Trazodone Hcl (Trazodone) 50 Mg Tab 50 MG PO HS Discontinued Medications: Escitalopram Oxalate (Escitalopram Oxalate) 20 Mg Tab 20 MG PO DAILY Prednisone Tab (Prednisone) 10 Mg Tab 0 PO UD, #33 TAB Taper daily [id number] Admission Information HPI (per Admitting provider): This is a 52yo woman with a PMH of migraine headaches, psoriatic arthritis, hypothyroidism, h/o DVTs who presents after a syncopal episodes earlier today. Patient was at work and became dizzy when walking down the stairs. Experienced a prodrome including blurred vision and feeling like she is "in a tunnel". Was witnessed by coworkers to slump down to a seated position and was unresponsive for 5 minutes. Denies having and bladder incontinence during that time. Was picked up by her and once returned home, developed a new onset, 10/10 headache that felt like her head was "exploding". Associated nausea with 2 episodes of vomiting as well as ongoing dizziness. Denies any focal neurologic deficits. Patient was recently seen at [facility] and discharged 05/04 for similar syncopal episodes and a severe migraine. During her 5 day stay patient underwent a CT head, MRI and LP that were negative for any acute findings. Has a 1.3cm frontal meningioma that has remained unchanged. Was seen by Dr. Rowell, her neurologist , and was discharged on a prednisone taper and an increased daily dose of Topamax. Once patient returned home on Sunday, she continued to have a "small headache" throughout the weekend up until this morning. However, patient felt well enough to go to work the past 3 days up until today's syncopal episode. Still endorses 10/10 headache pain, photophobia, mild dizziness, mild nausea and L groin "cramping" pain. Denies confusion, visual changes, CP, SOB, vomiting , LE swelling. ED course included IVF, antiemetics, Toradol and Haldol. Headache still persisting with 10/10 pain. Past Medical/Surgical History Medical Problems: (1) Clostridium difficile colitis Status: Resolved (2) Depression Status: Chronic (3) Edema Status: Chronic (4) GERD (gastroesophageal reflux disease) Status: Chronic (5) History diabetes mellitus Permanent Comment: improved after gastric bypass Status: Resolved (6) History of DVT (deep vein thrombosis) Status: Chronic (7) History of pulmonary embolism Status: Resolved (8) MINI (iron deficiency anemia) Status: Chronic (9) Migraine headache Status: Chronic (10) Psoriatic arthritis Status: Chronic (11) Sleep apnea Status: Chronic Surgical Problems: (1) H/O wisdom tooth extraction Status: Chronic (2) History of carpal tunnel surgery Status: Chronic (3) S/P hysterectomy Status: Chronic (4) Status post appendectomy Status: Chronic (5) Status post cholecystectomy Status: Chronic (6) Status post gastric bypass for obesity Status: Chronic (7) Status post total knee replacement Status: Chronic Family History FHx: rheumatoid arthritis MOTHER GRANDMOTHER Social History Smoking Status: Never Smoker Drug Use: none Marital Status: Housing status: lives with significant other Immunizations History of Influenza Vaccine: Yes Influenza Vaccine Date: Jun 22, 2016 History of Tetanus Vaccine?: Yes Tetanus Immunization Date: Dec 01, 2015 History of Pneumococcal: Yes Pneumococcal Date: Jun 22, 2008 Multi-Drug Resistant Organisms History of MDRO: No Allergies Coded Allergies: Oxycodone (Verified Allergy, Intermediate, HIVES, 05/09/17) Vancomycin (Verified Adverse Reaction, Unknown, SEE TEXT. . ., 05/09/17) PT STARTED IV VANC TODAY FOR POSSIBLE OSTEOMYELITIS OF RIGHT FOOT. ALSO ON TIMENTIN 3.1G IV Q6H FROM 03/24/08. PHARM'KINETIC VANC CONSULT PATIENT ORDERED VANC 3G IV Q18H IN 560ML TOTAL VOLUME NSS (~5.3MG/ML). AFTER RECEIVING 136ML PT DEVELOPED BODY ITCHING (NO RASH/REDNESS). KAY TEJADA RN CONTACTED DR BANEGAS AND INSTRUCTED TO D/C VANC AND GIVE BENADRYL 50MG PO X1. 03/27/08 @ 1000: SPOKE WITH DR RUIZ: FEELS THIS IS AN INFUSION RELATED RXN BUT CLINICALLY PT IS DOING WORSE AND IS D/C TIMENTIN/VANC AND STARTING TYGACIL. IS THIS AN INFUSION RELATED RXN OR TRUE ALLERGY? I PUT CALL INTO DR BANEGAS TO FURTHER DISCUSS. NO CALL BACK OF TIME OF DOCUMENTATION. AJ Home Medications Scheduled Amitriptyline Hcl (Elavil), 20 MG PO HS Apremilast (Otezla), 30 MG PO BID Ergocalciferol (Vitamin D 18947 Unit), 50,000 INTER.UNIT PO 2XWK Escitalopram Oxalate (Escitalopram Oxalate), 20 MG PO DAILY Hyoscyamine Sulfate (Levsin), 0.125 MG PO TID Levothyroxine Sodium (Levothyroxine Sodium), 25 MCG PO DAILY Pantoprazole (Pantoprazole Sodium), 40 MG PO BID Prednisone Tab (Prednisone), 0 PO UD Topiramate (Topiramate), 100 MG PO BID Trazodone Hcl (Trazodone), 50 MG PO HS Scheduled PRN Albuterol Hfa (Ventolin Hfa), 2 PUFFS INH Q6H PRN for Shortness of Breath Ondansetron Odt (Zofran Odt), 8 MG SL Q8 PRN for Nausea Promethazine HCl (Promethazine HCl), 25 MG PO Q8 PRN for Nausea or Vomiting Sumatriptan Succinate (Sumatriptan Succinate), 50 MG PO UD PRN for Migraine Review of Systems Ten systems reviewed and negative except as noted in the HPI. Physical Ex - H&P Physical Exam Vital Signs Date Time Temp Pulse Resp B/P (MAP) Pulse Ox O2 Delivery O2 Flow Rate FiO2 05/09/17 18:13 70 18 153/100 96 Room Air 05/09/17 16:25 75 20 137/85 99 Room Air 05/09/17 14:30 75 20 134/88 98 Room Air 05/09/17 12:30 79 18 146/88 97 Room Air 05/09/17 11:30 98 Room Air 05/09/17 11:21 75 05/09/17 10:56 36.7 73 18 124/86 97 Room Air General Appearance: + moderate distress (Patient covering her eyes 2/2 photophobia. Able to converse and cooperate with exam. ) Head: normocephalic, atraumatic Eyes: normal inspection, PERRL, EOMI, sclerae normal ENT: hearing grossly normal Neck: supple, no adenopathy, trachea midline Respiratory/Chest: chest non-tender, lungs clear, normal breath sounds, no respiratory distress, no accessory muscle use Cardiovascular: regular rate, rhythm, no murmur, normal peripheral pulses Abdomen/GI: normal bowel sounds, non tender, soft, no organomegaly Back: normal inspection Extremities/Musculoskelatal: normal inspection, no calf tenderness, normal capillary refill, no pedal edema Neurologic/Psych: pulper II-XII nml as tested, no motor/sensory deficits, alert, normal mood/affect, oriented x 3 Skin: normal color, warm/dry Diagnostics - H&P Diagnostics Laboratory Results Results Past 24 Hours Test 05/09/17 11:25 05/09/17 11:30 Range/Units White Blood Count 12.97 4.8-10.8 K/uL Red Blood Count 4.25 4.2-5.4 M/uL Hemoglobin 13.0 12.0-16.0 g/dL Hematocrit 37.4 37-47 % Mean Corpuscular Volume 88.0 80-100 fL Mean Corpuscular Hemoglobin 30.6 25-34 pg Mean Corpuscular Hemoglobin Concent 34.8 32-36 g/dl Platelet Count 303 130-400 K/uL Mean Platelet Volume 9.3 7.4-10.4 fL Neutrophils (%) (Auto) 52.8 % Lymphocytes (%) (Auto) 37.2 % Monocytes (%) (Auto) 8.4 % Eosinophils (%) (Auto) 0.8 % Basophils (%) (Auto) 0.3 % Neutrophils # (Auto) 6.84 1.4-6.5 K/uL Lymphocytes # (Auto) 4.83 1.2-3.4 K/uL Monocytes # (Auto) 1.09 0.11-0.59 K/uL Eosinophils # (Auto) 0.10 0-0.5 K/uL Basophils # (Auto) 0.04 0-0.2 K/uL RDW Standard Deviation 47.3 36.4-46.3 fL RDW Coefficient of Variation 14.8 11.5-14.5 % Immature Granulocyte % (Auto) 0.5 % Immature Granulocyte # (Auto) 0.07 0.00-0.02 K/uL D-Dimer 210 0-500 ug/L FEU Sodium Level 142 136-145 mmol/L Potassium Level 3.7 3.5-5.1 mmol/L Chloride Level 109 98-107 mmol/L Carbon Dioxide Level 24 21-32 mmol/L Anion Gap 9.0 3-11 mmol/L Blood Urea Nitrogen 12 7-18 mg/dl Creatinine 0.80 0.60-1.20 mg/dl Estimated GFR () 96.9 Estimated GFR (Non- 83.6 BUN/Creatinine Ratio 14.6 10-20 Random Glucose 74 70-99 mg/dl Calcium Level 8.9 8.5-10.1 mg/dl Phosphorus Level 3.4 2.5-4.9 mg/dl Magnesium Level 2.3 1.8-2.4 mg/dl Total Bilirubin 0.4 0.2-1 mg/dl Direct Bilirubin < 0.1 0-0.2 mg/dl Aspartate Amino Transf (AST/SGOT) 9 15-37 U/L Alanine Aminotransferase (ALT/SGPT) 19 12-78 U/L Alkaline Phosphatase 104 45-117 U/L Total Creatine Kinase 25 26-192 U/L Troponin I < 0.015 0-0.045 ng/ml Total Protein 6.3 6.4-8.2 gm/dl Albumin 3.6 3.4-5.0 gm/dl Lipase 102 73-393 U/L Urine Color YELLOW Urine Appearance CLEAR CLEAR Urine pH 6.0 4.5-7.5 Urine Specific [place] 1.015 1.000-1.030 Urine Protein NEG NEG Urine Glucose (UA) NEG NEG Urine Ketones NEG NEG Urine Occult Blood NEG NEG Urine Nitrite NEG NEG Urine Bilirubin NEG NEG Urine Urobilinogen NEG NEG Urine Leukocyte Esterase TRACE NEG Urine WBC (Auto) 1-5 0-5 /hpf Urine RBC (Auto) 0-4 0-4 /hpf Urine Hyaline Casts (Auto) 1-5 0-5 /lpf Urine Epithelial Cells (Auto) >30 0-5 /lpf Urine Bacteria (Auto) NEG NEG Diagnostic Radiology CT head: IMPRESSION: 1. No acute intracranial findings. 2. No change in the 1.3 cm left frontal parafalcine meningioma. CXR normal EKG Normal sinus rhythm Inferior infarct (cited on or before 04-JAN-2017) Anterior infarct (cited on or before 04-JAN-2017) No change from prior EKG Impression - H&P Impression Assessment and Plan This is a 52yo woman with a PMH of migraine headaches, psoriatic arthritis, hypothyroidism, h/o DVTs who presents after a syncopal episodes earlier today. Syncope: -Witnessed syncopal episode this AM -Will order orthostatics to assess for orthostatic hypotension -Giving fluids to correct for any hypovolemia -During last admission, CT, MRI, EEG, LP wnl -No changes on EKG -CT head normal -Consulted neuro for further recs Headache: -H/o migraines with similar presentation years ago -Increase in topomax and prednisone taper not helping -Denies any recent changes to diet, fluid intake or caffeine -During last admission, work-up was negative -Continue IVF, antiemetics -Given Fioricet -Neuro consulted -Did have LP performed on 04/29. May be experiencing a post-procedural HARRIS -Will consulted anesthesiology for blood patch Meningioma: -CT and MRI with 1.3 cm mass consistent with meningioma. Unchanged from previous imaging in 2016 -Monitor as out-patient Hypothyroidism: -Continue levothyroxine -TSH, Free T4 wnl Psoriatic arthritis: -Continue Apremilast DVT Ppx: Lovenox Code status: FULL PCP: Kathrin Dispo: Plan to return home once medically stable Addendum: I have seen and examined the patient and agree with the assessment and plan as above. The headache is positional and began to worsen just after dc. LP performed 7-10 days ago and headache currently is severe and positional associated with some back pain during the week last week. Concern for post-LP headache contributing here. Fioricet ordered. Spoke with anesthesia who will be up first thing in the morning to place a blood patch. Workup during last admission was extensive and negative. Re-evaluate after blood patch. Apprec neuro eval/recs, also. Casey, DO Level of Care Telemetry Advanced Directives Existing Living Will: No Existing Power of Marker Assembler: No Resuscitation Status FULL RESUSCITATION VTE Prophylaxis VTE Risk Assessment Done? Y/N: Yes Risk Level: Moderate Given or contraindicated: Enoxaparin (Lovenox)SQ Social Service Consult None Apply Physical Exam (per Admitting): General Appearance: + moderate distress (Patient covering her eyes 2/2 photophobia. Able to converse and cooperate with exam. ) Head: normocephalic, atraumatic Eyes: normal inspection, PERRL, EOMI, sclerae normal ENT: hearing grossly normal Neck: supple, no adenopathy, trachea midline Respiratory/Chest: chest non-tender, lungs clear, normal breath sounds, no respiratory distress, no accessory muscle use Cardiovascular: regular rate, rhythm, no murmur, normal peripheral pulses Abdomen/GI: normal bowel sounds, non tender, soft, no organomegaly Back: normal inspection Extremities/Musculoskelatal: normal inspection, no calf tenderness, normal capillary refill, no pedal edema Neurologic/Psych: pulper II-XII nml as tested, no motor/sensory deficits, alert , normal mood/affect, oriented x 3 Skin: normal color, warm/dry Hospital Course This is a 52yo woman with a PMH of migraine headaches, psoriatic arthritis, hypothyroidism, h/o DVTs who presents after a syncopal episodes earlier today. Persistent migraine similar presentation last week and had extensive workup with Ct, MRI, echo ,EEG and LP which were unremarkable thought to be complex migraines and was discharged on increased dose of Topamax and Prednisone taper ct head in ER unremarkable Seen by anesthesiology for spinal patch- not placed- appreciate inputs Seen by neurology - MRI and MRA of the head are unremarkable,EEG unremarkable Has been on Decadron 2mg iv tid- some what improving Was seen by Pain therapist-appreciate input S/P Occipital nerve block,may need OP Botox and or Occipital Nerve block as an OP No help with occipital nerve block Nucynta added and working well Will discharge home today Recurrent Syncope and severe headaches: Witnessed syncopal episode ? ECHO last admission unremarkable No Arrhythmia Consulted cardiology and appreciate inputs No more episodes Right sided chest pain and right arm and faxce numbness 05/14/17 cxr and ekg and labs unremarkable will trend CE-No ACS No more pain Severe Depression Appreciate psychiatry input Medication adjusted Has OP appointment with psychiatrist Meningioma: CT and MRI with 1.3 cm mass consistent with meningioma. Unchanged from previous imaging in 2016 Monitor as out-patient Hypothyroidism: On Synthroid TSH normal Psoriatic arthritis: on Apremilast DVT Ppx: Lovenox DISPOSITION Discharge home today Discussed about Importance of keping appointments with PCP,Psychiatry,Pain therapist and Neurology. Total time spent on discharge = 40 minutes This includes examination of the patient, discharge planning, medication reconciliation, and communication with other providers. Discharge Instructions Date of Service May 17, 2017. Admission Reason for Admission: Intractable Migraine Discharge Discharge Diagnosis / Problem: Intractable Headache,Persistent Migraine Discharge Goals Goal(s): Prevent Disease Progression Activity Recommendations Activity Limitations: resume your previous activity . Instructions / Follow-Up Instructions / Follow-Up Dr Pinon on 05/21/17 at 10:45 AM,Please make an appointment with Pain therapist on Sunday.Please keep foollow up appointments with Psychiatry and Neurology Current Hospital Diet Patient's current hospital diet: Low Fat Diet Discharge Diet Recommended Diet: Low Fat Diet Pending Studies Studies pending at discharge: no Medical Emergencies . Who to Call and When: Medical Emergencies: If at any time you feel your situation is an emergency, please call 911 immediately. . Non-Emergent Contact Non-Emergency issues call your: Primary Care Provider . Past History Medical & Surgical History: (1) Syncope (2) Intractable migraine (3) Intractable headache (4) Depression (5) Sleep apnea (6) MINI (iron deficiency anemia) (7) History of DVT (deep vein thrombosis) (8) History diabetes mellitus (9) Psoriatic arthritis (10) Status post appendectomy (11) Status post cholecystectomy (12) Status post gastric bypass for obesity (13) Status post total knee replacement (14) H/O wisdom tooth extraction (15) History of carpal tunnel surgery (16) S/P hysterectomy (17) FHx: rheumatoid arthritis . "Provider Documentation" section prepared by Isabella Wilkerson. . VTE Core Measure Inpt VTE Proph given/why not?: Enoxaparin (Lovenox)SQ <Electronically signed by Isabella Wilkerson M.D.> Signed: 05/17/17 [id number] Signed: Additional Copies To Shell Pinon M.D.
[2017-05-24] MEDS ORDERED: MAGN400T7 PO (14:42)
== END 2017-05-17 13:05 | disposition home or self-care (01) ==
LOC: C.EDB 10:47 → C.2E 16:53 → INTOOBSV 16:53 → ENRESERV 17:57 → C.MS2W 05-12 11:30
PROVIDERS: ADMIT Hospitalist; ATTEND Internal Medicine
DX: G43.919 Migraine, unspecified, intractable, without status migrainosus (principal); R55 Syncope and collapse; D50.9 Iron deficiency anemia, unspecified; G47.30 Sleep apnea, unspecified; K21.9 Gastro-esophageal reflux disease without esophagitis; E03.9 Hypothyroidism, unspecified; D32.0 Benign neoplasm of cerebral meninges; R60.9 Edema, unspecified; F32.9 Major depressive disorder, single episode, unspecified; L40.50 Arthropathic psoriasis, unspecified; Z86.711 Personal history of pulmonary embolism; Z86.718 Personal history of other venous thrombosis and embolism; Z79.899 Other long term (current) drug therapy; Z98.84 Bariatric surgery status

== ENCOUNTER 2017-05-30 13:06 | Emergency (ER) | payer BC ==
[~2017-05-30] VITALS: Ht 165.1 cm; Wt 88.0 kg
[~2017-05-30 13:06] MED LIST changes: +CYM30 PO; -LXP/20 PO; +MAGN400T7 PO; +NCY50 PO; -PRED10TA PO
[2017-05-30 13:11] VITALS: Ht 165.1 cm; Wt 88.0 kg
[2017-05-30] MEDS ORDERED: MAGNESIUM SULFATE 1GM / D5W 1 GM BAG IV STA (13:39)
[2017-05-30] MEDS ORDERED: PROCHLORPERAZINE 5 MG/ML 2 ML VIAL IV STA (13:39)
[2017-05-30] MEDS ORDERED: SODIUM CHLORIDE 0.9% 1000ML 1,000 ML IV STA (13:39)
[2017-05-30] MEDS ORDERED: DiphenhydrAMINE HCL 50 MG/ML VIAL IV STA (13:39)
[2017-05-30 14:11] LABS: BASO % 0.6 %; BASO ABS # 0.04 K/uL (0-0.2); COMPLETE YES; EOS % 1.3 %; HEMATOCRIT 37.2 % (37-47); IG% 0.3 %; LYMPH % 29.8 %; LYMPH ABS # 1.89 K/uL (1.2-3.4); MEAN CELL VOLUME 90.1 fL (80-100); MEAN CORPUSCULAR HEMOGLOBIN 29.5 pg (25-34); MEAN CORPUSCULAR HGB CONC 32.8 g/dl (32-36); MEAN PLATELET VOLUME 8.6 fL (7.4-10.4); MONO % 8.5 %; NEUT % 59.5 %; PLATELET COUNT 299 K/uL (130-400); RED BLOOD COUNT 4.13 M/uL (4.2-5.4); WHITE BLOOD COUNT 6.34 K/uL (4.8-10.8)
[2017-05-30 14:27] LABS: URINE APPEARANCE CLEAR (CLEAR); URINE BILIRUBIN NEG (NEG); URINE COLOR DK YELLOW; URINE EPITHELIAL CELL AUTO >30 /lpf (0-5); URINE NITRITE POS (NEG); URINE PH 6.5 (4.5-7.5); URINE SPECIFIC GRAVITY 1.011 (1.000-1.030); UROBILINOGEN NEG (NEG)
[2017-05-30 14:29] LABS: CALCIUM 8.5 mg/dl (8.5-10.1); CREATININE 0.77 mg/dl (0.60-1.20); POTASSIUM 3.9 mmol/L (3.5-5.1)
[2017-05-30 14:30] LABS: MANUAL MICROSCOPIC REQUIRED? NO; REVIEW REQ? NO
[2017-05-30] MEDS ORDERED: VITB2100 PO (14:42)
[2017-05-30] MEDS ORDERED: SULFAMETHOXAZOLE/TRIMETHOPRIM DS 800/160MG TAB PO STA (14:53)
[2017-05-30] MEDS ORDERED: SULF800T23 PO (14:55)
[2017-05-30 15:23] VITALS: BP 120/78; PULSE 87; TEMP 36.4; O2SAT 97
--- NOTE | 2017-05-30 17:23 | EMERGENCY ROOM VISIT NOTE ---
History Report prepared by Leon: Belén Juarez Under the Supervision of: Dr. Mckinley Navarrete M.D. First contact with patient: 13:29 Chief Complaint: URINARY SYMPTOMS Stated Complaint: CAN'T URINATE, MIGRAINE-SENT BY Nursing Triage Summary: Patient reports that she started having urinary symptoms yesterday. "I can't go." Reports that yesterday she was unable to urinate at all. Also reports that she has a migraine today that she has had since April 29. History of Present Illness The patient is a 52 year old female who presents to the Emergency Room with complaints of difficulty urinating beginning yesterday afternoon. The patient notes that she was unable to urinate yesterday. She notes only being able to urinate very small amounts this morning. She has not had symptoms like this before. The patient has had a migraine since April 29 and she has been admitted for it twice since it's onset. The patient's headache worsens with light. The patient had chills the past two days but denies having a fever. She notes episodes of diarrhea beginning this morning. The patient sees Dr. Rowell and is on Nucynta, amitriptyline, and Topamax for her headaches. Source of History: patient Onset: yesterday Position: other (urinary) Associated Symptoms: + chills, + headache, + diarrhea, No fevers, No melena , No hematochezia Review of Systems See HPI for pertinent positives & negatives. A total of 10 systems reviewed and were otherwise negative. Past Medical & Surgical Medical Problems: (1) Clostridium difficile colitis (2) Depression (3) Edema (4) GERD (gastroesophageal reflux disease) (5) History diabetes mellitus (6) History of DVT (deep vein thrombosis) (7) History of pulmonary embolism (8) MINI (iron deficiency anemia) (9) Intractable headache (10) Intractable migraine (11) Migraine headache (12) Psoriatic arthritis (13) Pulmonary embolism (14) Sleep apnea (15) Syncope Surgical Problems: (1) H/O wisdom tooth extraction (2) History of carpal tunnel surgery (3) S/P hysterectomy (4) Status post appendectomy (5) Status post cholecystectomy (6) Status post gastric bypass for obesity (7) Status post total knee replacement Family History FHx: rheumatoid arthritis MOTHER GRANDMOTHER Social History Smoking Status: Never Smoker Alcohol Use: none Drug Use: none Marital Status: Housing Status: lives with family Occupation Status: unemployed Current/Historical Medications Scheduled Amitriptyline Hcl (Elavil), 30 MG PO HS Apremilast (Otezla), 30 MG PO BID Duloxetine HCl (Duloxetine HCl), 30 MG PO QAM Ergocalciferol (Vitamin D 17781 Unit), 50,000 INTER.UNIT PO 2XWK Hyoscyamine Sulfate (Levsin), 0.125 MG PO TID Levothyroxine Sodium (Levothyroxine Sodium), 25 MCG PO DAILY Magnesium Oxide (Mg Supplement (Magnesium Oxide), 1 TAB PO DAILY Pantoprazole (Pantoprazole Sodium), 40 MG PO BID Riboflavin (Vitamin B-2), 4 TABS PO DAILY Sulfa/Trimethoprim (Bactrim Ds 800MG/160MG), 1 TAB PO BID Topiramate (Topiramate), 100 MG PO BID Trazodone Hcl (Trazodone), 50 MG PO HS Scheduled PRN Albuterol Hfa (Ventolin Hfa), 2 PUFFS INH Q6H PRN for Shortness of Breath Ondansetron Odt (Zofran Odt), 8 MG SL Q8 PRN for Nausea Promethazine HCl (Promethazine HCl), 25 MG PO Q8 PRN for Nausea or Vomiting Sumatriptan Succinate (Sumatriptan Succinate), 50 MG PO UD PRN for Migraine Tapentadol HCl (Nucynta), 50 MG PO Q6H PRN for Pain Allergies Coded Allergies: Oxycodone (Verified Allergy, Intermediate, HIVES, 05/30/17) Vancomycin (Verified Adverse Reaction, Unknown, SEE TEXT. . ., 05/30/17) PT STARTED IV VANC TODAY FOR POSSIBLE OSTEOMYELITIS OF RIGHT FOOT. ALSO ON TIMENTIN 3.1G IV Q6H FROM 03/24/08. PHARM'KINETIC VANC CONSULT PATIENT ORDERED VANC 3G IV Q18H IN 560ML TOTAL VOLUME NSS (~5.3MG/ML). AFTER RECEIVING 136ML PT DEVELOPED BODY ITCHING (NO RASH/REDNESS). KAY TEJADA RN CONTACTED DR BANEGAS AND INSTRUCTED TO D/C VANC AND GIVE BENADRYL 50MG PO X1. 03/27/08 @ 1000: SPOKE WITH DR RUIZ: FEELS THIS IS AN INFUSION RELATED RXN BUT CLINICALLY PT IS DOING WORSE AND IS D/C TIMENTIN/VANC AND STARTING TYGACIL. IS THIS AN INFUSION RELATED RXN OR TRUE ALLERGY? I PUT CALL INTO DR BANEGAS TO FURTHER DISCUSS. NO CALL BACK OF TIME OF DOCUMENTATION. AJ Physical Exam Vital Signs Date Time Temp Pulse Resp B/P (MAP) Pulse Ox O2 Delivery O2 Flow Rate FiO2 05/30/17 15:23 36.4 87 20 120/78 97 05/30/17 14:19 79 20 105/76 98 05/30/17 13:11 36.4 118 20 119/81 95 Room Air Physical Exam Constitutional: Vital signs reviewed. Eyes: Pupils are equal round reactive to light. Conjunctiva are noninjected. ENT: Pharynx is clear without erythema or exudate. Mucous membranes are moist. Neck supple without meningeal signs. Respiratory: Clear to auscultation bilaterally. Breath sounds are equal bilaterally. Cardiovascular: Regular rate and rhythm. No rubs or gallops. GI: Soft, nondistended and nontender. Bowel sounds are present. Musculoskeletal: No peripheral edema. No lower extremity tenderness. Integumentary: No cyanosis. Neurological: The patient is awake and alert. Cranial nerves II-XII are intact. Motor is 5 out of 5 all extremities. Sensation is intact to light touch all extremities. Normal speech. No pronator drift. Psychiatric: Normal affect. Medical Decision & Procedures Laboratory Results 05/30/17 14:00 Red Blood Count 4.13, Mean Corpuscular Volume 90.1, Mean Corpuscular Hemoglobin 29.5, Mean Corpuscular Hemoglobin Concent 32.8, Mean Platelet Volume 8.6, Neutrophils (%) (Auto) 59.5, Lymphocytes (%) (Auto) 29.8, Monocytes (%) (Auto) 8.5, Eosinophils (%) (Auto) 1.3, Basophils (%) (Auto) 0.6, Neutrophils # (Auto) 3.77, Lymphocytes # (Auto) 1.89, Monocytes # (Auto) 0.54, Eosinophils # (Auto) 0.08, Basophils # (Auto) 0.04 05/30/17 14:00 Test 05/30/17 14:00 05/30/17 14:15 White Blood Count 6.34 K/uL (4.8-10.8) Red Blood Count 4.13 M/uL (4.2-5.4) Hemoglobin 12.2 g/dL (12.0-16.0) Hematocrit 37.2 % (37-47) Mean Corpuscular Volume 90.1 fL (80-100) Mean Corpuscular Hemoglobin 29.5 pg (25-34) Mean Corpuscular Hemoglobin Concent 32.8 g/dl (32-36) Platelet Count 299 K/uL (130-400) Mean Platelet Volume 8.6 fL (7.4-10.4) Neutrophils (%) (Auto) 59.5 % Lymphocytes (%) (Auto) 29.8 % Monocytes (%) (Auto) 8.5 % Eosinophils (%) (Auto) 1.3 % Basophils (%) (Auto) 0.6 % Neutrophils # (Auto) 3.77 K/uL (1.4-6.5) Lymphocytes # (Auto) 1.89 K/uL (1.2-3.4) Monocytes # (Auto) 0.54 K/uL (0.11-0.59) Eosinophils # (Auto) 0.08 K/uL (0-0.5) Basophils # (Auto) 0.04 K/uL (0-0.2) RDW Standard Deviation 47.6 fL (36.4-46.3) RDW Coefficient of Variation 14.5 % (11.5-14.5) Immature Granulocyte % (Auto) 0.3 % Immature Granulocyte # (Auto) 0.02 K/uL (0.00-0.02) Anion Gap 7.0 mmol/L (3-11) Est Creatinine Clear Calc Drug Dose 91.5 ml/min Estimated GFR () 101.5 Estimated GFR (Non- 87.5 BUN/Creatinine Ratio 14.0 (10-20) Calcium Level 8.5 mg/dl (8.5-10.1) Urine Color DK YELLOW Urine Appearance CLEAR (CLEAR) Urine pH 6.5 (4.5-7.5) Urine Specific [place] 1.011 (1.000-1.030) Urine Protein NEG (NEG) Urine Glucose (UA) NEG (NEG) Urine Ketones NEG (NEG) Urine Occult Blood NEG (NEG) Urine Nitrite POS (NEG) Urine Bilirubin NEG (NEG) Urine Urobilinogen NEG (NEG) Urine Leukocyte Esterase MODERATE (NEG) Urine WBC (Auto) 10-30 /hpf (0-5) Urine RBC (Auto) 0-4 /hpf (0-4) Urine Hyaline Casts (Auto) 1-5 /lpf (0-5) Urine Epithelial Cells (Auto) >30 /lpf (0-5) Urine Bacteria (Auto) NEG (NEG) Laboratory results as reviewed by me. Medications Administered Medications (Trade) Dose Ordered Sig/Monalisa Route Start Time Stop Time Status Last Admin Dose Admin Sodium Chloride 1,000 ml @ 999 mls/hr Q1H1M STAT IV 05/30/17 13:39 05/30/17 14:39 DC 05/30/17 14:03 999 MLS/HR Prochlorperazine Edisylate (Compazine Inj) 10 mg NOW STAT IV 05/30/17 13:39 05/30/17 13:41 DC 05/30/17 14:01 10 MG Diphenhydramine HCl (Benadryl Inj) 50 mg NOW STAT IV 05/30/17 13:39 05/30/17 13:41 DC 05/30/17 14:00 50 MG Magnesium Sulfate (Magnesium Sulfate) 1 gm NOW STAT IV 05/30/17 13:39 05/30/17 13:41 DC 05/30/17 14:02 1 GM Trimethoprim/ Sulfamethoxazole (Septra Ds 800/ 160MG Tab) 1 tab NOW STAT PO 05/30/17 14:53 05/30/17 14:54 DC 05/30/17 15:07 1 TAB ED Course 1334: The patient was evaluated in room B2. A complete history and physical exam was performed. 1339: Magnesium Sulfate 1 gm IV, Benadryl Inj 50 mg IV, Compazine Inj 10 mg IV, Sodium Chloride 1000 ml @ 999 mls/hr IV. 1453: Trimethoprim/Sulfamethoxazole 1 tab PO. 1455: I discussed test results with the patient and she is resting comfortably. 1458: Upon reevaluation, the patient appeared to have improvement of her symptoms. I discussed tonight's findings with the patient. She verbalized agreement of the treatment plan. The patient was discharged home. Medical Decision This is a 52-year-old female who presents with headache and difficulty urinating. Differential diagnosis includes urinary retention, UTI, kidney failure, migraine headache, tension headache. I did perform a limited focused review of portions of the patient's old chart on the electronic medical record. The patient was seen on May 04 for syncope and migraine. She had a normal CT head and LP. The patient was admitted on May 09 for intractable migraine was put on Nucynta. She had a repeat CT head which was negative other than stable meningioma. She also had a negative MRA of head and EEG. I did evaluate the patient as noted above. A bladder scan was performed. This showed 390 mL of urine in the bladder after she just voided. She also complains of a persistent headache since April. She is neurologically intact. She has had extensive workup for this headache as described above. A Ferrari catheter was placed. IV access was established. I did treat the patient with IV Compazine, Benadryl and normal saline IV. She was also given magnesium IV. I did order and personally review the patient's urinalysis as described above. There is evidence of infection. A urine culture was sent. I did start patient on Bactrim. I did order and review the patient's blood work as noted in the electronic medical record. Her white blood cell count is not elevated. I did reassess the patient. She is feeling somewhat better and rates her headache a 7 out of 10 in severity. She was advised follow up with her neurologist as well as her regular doctor. She was sent home with the Ferrari catheter and a leg bag. She was discharged with a prescription for Bactrim. Medication Reconcilliation Current Medication List: was personally reviewed by me Blood Pressure Screening Patient's blood pressure: Normal blood pressure Impression Primary Impression: Urinary retention Additional Impressions: UTI (urinary tract infection) Headache Scribe Attestation The scribe's documentation has been prepared under my direct and personally reviewed by me in its entirety. I confirm that the note above accurately reflects all work, treatment, procedures, and medical decision making performed by me. Departure Information Dispostion Home / Self-Care Prescriptions Sulfa/Trimethoprim (Bactrim Ds 800MG/160MG) Tab 1 TAB PO BID, #14 TAB Prov: Mckinley Navarrete M.D. 05/30/17 Referrals Shell Pinon M.D. (PCP) Forms HOME CARE DOCUMENTATION FORM, IMPORTANT VISIT INFORMATION Patient Instructions ED Retention Urinary Female, My [facility] Additional Instructions You have been examined and treated today on an emergency basis only. This is not a substitute for, or an effort to provide, complete comprehensive medical care. It is impossible to recognize and treat all injuries or illnesses in a single emergency department visit. It is therefore important that you follow up closely with your physician and neurologist. Call as soon as possible for an appointment. Return for worsening symptoms or if you develop fever, vomiting, abdominal pain numbness or weakness on one side of your body, difficulties with your speech or walking, or any other concerning symptoms. Problem Qualifiers Additional Impressions: UTI (urinary tract infection) Urinary tract infection type: acute cystitis Hematuria presence: without hematuria Qualified Codes: N30.00 - Acute cystitis without hematuria Headache Headache type: unspecified Headache chronicity pattern: chronic headache Intractability: intractable Qualified Codes: R51 - Headache
== END 2017-05-30 15:25 | disposition home or self-care (01) ==
LOC: C.EDB 13:34
DX: R33.9 Retention of urine, unspecified (principal); N39.0 Urinary tract infection, site not specified; R51 Headache; E11.9 Type 2 diabetes mellitus without complications; F32.9 Major depressive disorder, single episode, unspecified; K21.9 Gastro-esophageal reflux disease without esophagitis; G47.39 Other sleep apnea; D50.9 Iron deficiency anemia, unspecified; Z86.711 Personal history of pulmonary embolism; Z86.718 Personal history of other venous thrombosis and embolism; Z90.49 Acquired absence of other specified parts of digestive tract; Z98.84 Bariatric surgery status; Z90.710 Acquired absence of both cervix and uterus; Z96.659 Presence of unspecified artificial knee joint; Z98.890 Other specified postprocedural states; Z79.899 Other long term (current) drug therapy; Z88.3 Allergy status to other anti-infective agents; Z88.5 Allergy status to narcotic agent

== ENCOUNTER 2017-10-02 12:32 | Emergency (ER) | payer BC, OTHER ==
[~2017-10-02] VITALS: Ht 165.1 cm; Wt 87.4 kg
[~2017-10-02 12:32] MED LIST changes: -ERGO1CAP41 PO; -HYOS1TAB PO; -IMT50 PO; -LEVO25TA5 PO; -NCY50 PO; -PRT/40 PO; -VNTHFA/IN INH
[2017-10-02 12:37] VITALS: TEMP 36.7; Ht 165.1 cm; Wt 87.4 kg
[2017-10-02] MEDS ORDERED: VNTHFA/IN INH (13:51)
[2017-10-02] MEDS ORDERED: VITB2100 PO (14:42)
[2017-10-02] MEDS ORDERED: LEVO25TA5 PO (15:26)
[2017-10-02] MEDS ORDERED: DiphenhydrAMINE HCL 50 MG/ML VIAL IV STA (15:40)
[2017-10-02] MEDS ORDERED: KETOROLAC TROMETHAMINE 30 MG/ML VIAL IV STA (15:40)
[2017-10-02] MEDS ORDERED: PROCHLORPERAZINE 5 MG/ML 2 ML VIAL IV STA (15:40)
[2017-10-02] MEDS ORDERED: SODIUM CHLORIDE 0.9% 1000ML 1,000 ML IV ONE (15:45)
[2017-10-02] MEDS ORDERED: GUAI100S6 PO (15:48)
[2017-10-02] MEDS ORDERED: AMIT10TA6 PO (15:48)
[2017-10-02] MEDS ORDERED: PRED20TA PO (15:48)
[2017-10-02] MEDS ORDERED: DULO60CA44 PO (15:59)
[2017-10-02] MEDS ORDERED: TOPI25TA99 PO (15:59)
[2017-10-02] MEDS ORDERED: MAGN1TAB19 PO (15:59)
[2017-10-02] MEDS ORDERED: ONDA8TAB62 SL (15:59)
[2017-10-02] MEDS ORDERED: MISCCAP80 PO (15:59)
[2017-10-02] MEDS ORDERED: TRAZ-122 PO (15:59)
[2017-10-02] MEDS ORDERED: CYNI1000 IM (16:00)
[2017-10-02] MEDS ORDERED: HYOS1TAB PO (16:46)
[2017-10-02 16:50] VITALS: BP 130/75; PULSE 90; O2SAT 99
[2017-10-02] MEDS ORDERED: PANT40TA2 PO (17:34)
[2017-10-02] MEDS ORDERED: IMT50 PO (18:01)
[2017-10-02] MEDS ORDERED: ERGO500011 PO (19:19)
--- NOTE | 2017-10-02 21:55 | EMERGENCY ROOM VISIT NOTE ---
ED Visit Note First contact with patient: 15:02 CHIEF COMPLAINT: Migraine headache HISTORY OF PRESENT ILLNESS: This 52-year-old female patient presented to the emergency department with a gradual onset of a severe generalized headache that started yesterday. The patient states the migraine is similar to their typical migraines. There has been associated photophobia, phonophobia, nausea and vomiting. The patient denies fever or chills recently, and there is no weakness or numbness of the extremities. There is no difficulty with speech or vision. No trauma to the head and no neck pain. The pain is severe, constant, and it is slowly increasing in severity. The patient rates the pain as sharp and 10/10. The patient has taken Imitrex at home without relief of symptoms. She did contact her neurologist today and was reportedly referred to the ER. This is not the worst headache of the life and is similar to previous migraines. Previous imaging studies of the brain have been normal. REVIEW OF SYSTEMS: A review of systems was performed with positives and pertinent negatives listed in the history of present illness. All other systems were reviewed and are negative. ALLERGIES: Oxycodone, vancomycin MEDICATIONS: See EMR PMH: Chronic migraines SOCIAL HISTORY: Lives locally with family PHYSICAL EXAM: Vital Signs: Reviewed Nurse's notes, vital signs stable. GENERAL: White female, who appears in pain, but non toxic in appearance and in no acute distress. MENTAL STATUS: Alert, oriented, and coherent. HEENT: Normocephalic. PERRLA. EOMI. Nares patent without nuchal rigidity. Tympanic membranes pearly alvarez without erythema or effusion bilaterally. Mucous membranes moist. NECK: Supple, no nuchal rigidity, nontender, no lymphadenopathy. HEART: Regular rhythm and normal rate without murmurs, ectopy, gallops, or rubs. LUNGS: Clear to auscultation bilaterally without wheezes, rales or rhonchi. No dullness to percussion. No accessory muscle use. No retractions. SKIN: Normal. NEUROLOGICAL: Pupils are round, equal and react to light. The optic fundi are normal and the discs are flat. The patient moves all extremities well and the gait is normal. EMERGENCY DEPARTMENT COURSE: I examined the patient. She does not appear with signs of meningitis or encephalitis. He is not the worst headache of her life, and is consistent with her normal bad migraines. The patient was given 30 mg IV Toradol, 10 mg IV Compazine, 50 mg IV Benadryl, and 1 L normal saline per their usual protocol. The differential diagnosis includes acute intracranial bleed, meningitis, encephalitis, mass or mass effect, sinusitis, infection, tumor, headache, temporal arteritis and carbon monoxide exposure, and migraine. The patient was discharged home in stable condition with a friend driving. Problem List Medical Problems: (1) Clostridium difficile colitis Status: Resolved (2) Depression Status: Chronic (3) Edema Status: Chronic (4) GERD (gastroesophageal reflux disease) Status: Chronic (5) History diabetes mellitus Permanent Comment: improved after gastric bypass Status: Resolved (6) History of DVT (deep vein thrombosis) Status: Chronic (7) History of pulmonary embolism Status: Resolved (8) MINI (iron deficiency anemia) Status: Chronic (9) Migraine headache Status: Chronic (10) Psoriatic arthritis Status: Chronic (11) Sleep apnea Status: Chronic Surgical Problems: (1) H/O wisdom tooth extraction Status: Chronic (2) History of carpal tunnel surgery Status: Chronic (3) S/P hysterectomy Status: Chronic (4) Status post appendectomy Status: Chronic (5) Status post cholecystectomy Status: Chronic (6) Status post gastric bypass for obesity Status: Chronic (7) Status post total knee replacement Status: Chronic Current/Historical Medications Scheduled Amitriptyline Hcl (Elavil), 30 MG PO HS Apremilast (Otezla), 30 MG PO BID Cyanocobalamin (Cyanocobalamin), 1,000 MCG IM Q4 WEEKS Duloxetine Hcl (Cymbalta), 60 MG PO DAILY Ergocalciferol (Vitamin D 21814 Unit), 50,000 INTER.UNIT PO 2XWK Levothyroxine Sodium (Levothyroxine Sodium), 25 MCG PO DAILY Magnesium Oxide (Mg Supplement (Magnesium Oxide), 400 MG PO DAILY Pantoprazole (Pantoprazole Sodium), 40 MG PO BID Prednisone (Prednisone), 20 MG PO UD Probiotic Product (Probiotic), 1 CAP PO TIDM Riboflavin (Vitamin B-2), 400 MG PO DAILY Topiramate (Topamax ), 100 MG PO BID Trazodone Hcl (Desyrel), 100 MG PO HS Scheduled PRN Albuterol Hfa (Ventolin Hfa), 2 PUFFS INH QID PRN for Shortness of Breath Guaifenesin-Codeine (Guaifenesin/Codeine), 5 ML PO QID PRN for Congestion or Cough Hyoscyamine Sulfate (Levsin), 0.125 MG PO TID PRN for Abdominal Cramping Ondansetron Odt (Zofran Odt), 8 MG SL Q8 PRN for Nausea Sumatriptan Succinate (Sumatriptan Succinate), 50 MG PO UD PRN for Migraine Allergies Coded Allergies: Oxycodone (Verified Allergy, Intermediate, HIVES, 05/30/17) Vancomycin (Verified Adverse Reaction, Unknown, SEE TEXT. . ., 05/30/17) PT STARTED IV VANC TODAY FOR POSSIBLE OSTEOMYELITIS OF RIGHT FOOT. ALSO ON TIMENTIN 3.1G IV Q6H FROM 03/24/08. PHARM'KINETIC VANC CONSULT PATIENT ORDERED VANC 3G IV Q18H IN 560ML TOTAL VOLUME NSS (~5.3MG/ML). AFTER RECEIVING 136ML PT DEVELOPED BODY ITCHING (NO RASH/REDNESS). KAY TEJADA RN CONTACTED DR BANEGAS AND INSTRUCTED TO D/C VANC AND GIVE BENADRYL 50MG PO X1. 03/27/08 @ 1000: SPOKE WITH DR RUIZ: FEELS THIS IS AN INFUSION RELATED RXN BUT CLINICALLY PT IS DOING WORSE AND IS D/C TIMENTIN/VANC AND STARTING TYGACIL. IS THIS AN INFUSION RELATED RXN OR TRUE ALLERGY? I PUT CALL INTO DR BANEGAS TO FURTHER DISCUSS. NO CALL BACK OF TIME OF DOCUMENTATION. AJ Vital Signs Date Time Temp Pulse Resp B/P (MAP) Pulse Ox O2 Delivery O2 Flow Rate FiO2 10/02/17 16:50 90 18 130/75 99 10/02/17 16:02 97 18 132/83 100 Room Air 10/02/17 15:00 80 20 154/94 100 Room Air 10/02/17 12:37 36.7 85 20 145/93 98 Room Air Medications Administered Medications (Trade) Dose Ordered Sig/Monalisa Route Start Time Stop Time Status Last Admin Dose Admin Diphenhydramine HCl (Benadryl Inj) 50 mg NOW STAT IV 10/02/17 15:40 10/02/17 15:42 DC 10/02/17 15:56 50 MG Prochlorperazine Edisylate (Compazine Inj) 10 mg NOW STAT IV 10/02/17 15:40 10/02/17 15:42 DC 10/02/17 15:56 10 MG Sodium Chloride 1,000 ml @ 999 mls/hr Q1H1M ONCE IV 10/02/17 15:45 10/02/17 16:45 DC 10/02/17 15:55 999 MLS/HR Ketorolac Tromethamine (Toradol Inj) 30 mg NOW STAT IV 10/02/17 15:40 10/02/17 15:42 DC 10/02/17 15:56 30 MG Departure Information Impression Primary Impression: Migraine Dispostion Home / Self-Care Condition GOOD Referrals Shell Pinon M.D. (PCP) Forms HOME CARE DOCUMENTATION FORM, IMPORTANT VISIT INFORMATION Patient Instructions My [facility] Additional Instructions You were seen and evaluated today on an emergency basis only. This is not a substitute for, or an effort to provide, complete comprehensive medical care. It is not possible to recognize and treat all injuries or illnesses in a single emergency department visit. For this reason it is recommended that you followup with your primary care physician or neurologist this week for ongoing care and evaluation. DO NOT drive, drink alcohol, operate machinery, or perform dangerous activities today. You were given medications in the ER that can affect your ability to safely function or operate a vehicle. Rest today in a quiet, peaceful, dark environment and get a full 8-10 hrs of sleep tonight. Avoid loud noises, smoke/smoking, alcohol, bright lights, stress, or physical exertion today to minimize the chance the headache may return. Continue current medications. Ibuprofen(Motrin, Advil) may be used for fever or pain. Use 600mg every six hours as needed. Take with food. Avoid using more than 2400mg in a 24 hour period. Do not use 2400mg per day for more than three consecutive days without physician direction. Prolonged inappropriate use can lead to stomach upset or ulcers. (AND/OR) Acetaminophen(Tylenol) may be used for fever or pain. Use 1000mg every six hours as needed. Avoid using more than 4000mg in a 24 hour period. Return to the ER for passing out, worsening headache, vision problems, neck stiffness/pain, fevers, vomiting, worsening of your condition, or as needed.
== END 2017-10-02 16:48 | disposition home or self-care (01) ==
LOC: C.EDB 12:32 → C.EDD 16:48
DX: G43.909 Migraine, unspecified, not intractable, without status migrainosus (principal); F32.9 Major depressive disorder, single episode, unspecified; K21.9 Gastro-esophageal reflux disease without esophagitis; G47.39 Other sleep apnea; D50.9 Iron deficiency anemia, unspecified; Z86.711 Personal history of pulmonary embolism; Z86.718 Personal history of other venous thrombosis and embolism; Z98.84 Bariatric surgery status; Z90.710 Acquired absence of both cervix and uterus; Z96.659 Presence of unspecified artificial knee joint; Z79.899 Other long term (current) drug therapy

== ENCOUNTER 2017-12-18 11:24 | Emergency (ER) | payer OTHER ==
[~2017-12-18 11:24] MED LIST changes: -CYM30 PO; +CYNI1000 IM; +DULO60CA44 PO; +ERGO500011 PO; +GUAI100S6 PO; +HYOS1TAB PO; +IMT50 PO; +LEVO25TA5 PO; +MAGN1TAB19 PO; -MAGN400T7 PO; +MISCCAP80 PO; +PANT40TA2 PO; +PRED20TA PO; -PROM25TA16 PO; +TOPI25TA99 PO; -TPM100 PO; +TRAZ-122 PO; -TRAZ50TA35 PO; +VITB2100 PO; +VNTHFA/IN INH
[2017-12-18 11:26] VITALS: TEMP 36.6; Ht 165.1 cm
[2017-12-18] MEDS ORDERED: DiphenhydrAMINE HCL 50 MG/ML VIAL IV STA (13:09)
[2017-12-18] MEDS ORDERED: SODIUM CHLORIDE 0.9% 1000ML 1,000 ML IV STA ×3 (13:09→17:22)
[2017-12-18] MEDS ORDERED: PROCHLORPERAZINE 5 MG/ML 2 ML VIAL IV STA (13:09)
[2017-12-18] MEDS ORDERED: ACETAMINOPHEN IV 1,000 MG in EMPTY BAG 0 ML IV STA (13:09)
[2017-12-18] MEDS ORDERED: ACETAMINOPHEN 1000 MG/100 ML IV IV ONE (13:21)
[2017-12-18 13:27] LABS: BASO % 0.5 %; BASO ABS # 0.05 K/uL (0-0.2); EOS % 1.2 %; EOS ABS # 0.13 K/uL (0-0.5); IG# 0.02 K/uL (0.00-0.02); LYMPH % 33.4 %; LYMPH ABS # 3.48 K/uL (1.2-3.4); MEAN CELL VOLUME 86.4 fL (80-100); MEAN CORPUSCULAR HEMOGLOBIN 30.7 pg (25-34); MEAN CORPUSCULAR HGB CONC 35.6 g/dl (32-36); MEAN PLATELET VOLUME 9.6 fL (7.4-10.4); MONO ABS # 0.83 K/uL (0.11-0.59); NEUT % 56.7 %; NEUT ABS # 5.91 K/uL (1.4-6.5); PLATELET COUNT 403 K/uL (130-400); RED CELL DISTRIBUTION WIDTH CV 14.2 % (11.5-14.5); RED CELL DISTRIBUTION WIDTH SD 44.8 fL (36.4-46.3); WHITE BLOOD COUNT 10.42 K/uL (4.8-10.8)
[2017-12-18 13:35] LABS: ALBUMIN 4.3 gm/dl (3.4-5.0); ALT/SGPT 29 U/L (12-78); BLOOD UREA NITROGEN 20 mg/dl (7-18); CALCIUM 8.9 mg/dl (8.5-10.1); CARBON DIOXIDE 27 mmol/L (21-32); CREATININE 1.18 mg/dl (0.60-1.20); GLUCOSE 99 mg/dl (70-99); POTASSIUM 3.3 mmol/L (3.5-5.1); SODIUM 133 mmol/L (136-145)
[2017-12-18 13:46] LABS: ALKALINE PHOSPHATASE 165 U/L (45-117); AST/SGOT 23 U/L (15-37); PHOSPHORUS 3.9 mg/dl (2.5-4.9); TOTAL PROTEIN 8.2 gm/dl (6.4-8.2)
[2017-12-18 14:15] LABS: INFLUENZA B ANTIGEN Neg for Influ B (NEG)
--- NOTE | 2017-12-18 14:21 | DIAGNOSTIC IMAGING REPORT ---
ABDOMEN 2VIEW W/PA CHEST RTN CLINICAL HISTORY: 52 years-old Female presenting with nausea, diarrhea, dizziness. TECHNIQUE: PA view of the chest and supine and upright views of the abdomen were obtained. COMPARISON: 05/14/2017 and 04/22/2017. FINDINGS: Cardiomediastinal silhouette normal. No focal opacity. No large effusion or pneumothorax. Cholecystectomy clips noted. Nonobstructive bowel gas pattern. No gross pneumoperitoneum. Anastomotic suture lines noted in the epigastrium and left mid abdomen. Allowing for bowel gas and stool, no calcifications to suggest nephrolithiasis. Degenerative changes of the spine. IMPRESSION: 1. No acute cardiopulmonary disease. 2. Postsurgical changes of Neel-en-Y gastric bypass. No bowel obstruction. Electronically signed by: Alexis Bejarano M.D. 12/18/2017 2:19 PM Dictated Date/Time: 12/18/2017 2:17 PM
[2017-12-18] MEDS ORDERED: ETAN50IN3 INJ (14:42)
[2017-12-18] MEDS ORDERED: PROP1TAB PO (14:42)
[2017-12-18] MEDS ORDERED: POTASSIUM CHLORIDE 10 MEQ TABCR PO STA (14:42)
[2017-12-18] MEDS ORDERED: PROM25TA9 PO (14:44)
[2017-12-18] MEDS ORDERED: KETOROLAC TROMETHAMINE 30 MG/ML VIAL IV STA (15:23)
[2017-12-18] MEDS ORDERED: LORAZEPAM 2 MG/ML 1 ML VIAL IV STA (17:22)
[2017-12-18] MEDS ORDERED: ONDANSETRON 8 MG/54 ML D5W IV STA (17:22)
[2017-12-18] MEDS ORDERED: DICYCLOMINE HCL 10 MG CAP PO ONE (17:30)
--- NOTE | 2017-12-18 19:40 | EMERGENCY ROOM VISIT NOTE ---
History Report prepared by Leon: Rubi Juarez Under the Supervision of: Dr. Lety Jaramillo, Janiya.O. First contact with patient: 12:56 Chief Complaint: DEHYDRATION Stated Complaint: DEHYDRATED, CONFUSED, FATIGUE, HEART RACING History of Present Illness The patient is a 52 year old female who presents to the Emergency Room with complaints of worsening generalized illness beginning yesterday. The patient reports her symptoms started with diarrhea and weakness. She notes about 10 episode of diarrhea. Today, the patient started to have heart racing, fatigue, leg aches, headache, nausea, abdominal cramps, and her mouth was dry. The patient reports the last time she felt like this her potassium level was low. She denies any changes to her medications or recent travel. The patient has a history of C.diff and migraines. Pt denies change in vision, fevers, chest pain , shortness of breath, vomiting, pain with urination, and melena. Source of History: patient Onset: yesterday Position: other (generalized) Quality: other (illness) Timing: worsening Associated Symptoms: + headache, + nausea, + abdominal pain, + diarrhea, + fatigue, + weakness, No chest pain, No SOB, No vomiting Review of Systems See HPI for pertinent positives & negatives. A total of 10 systems reviewed and were otherwise negative. Past Medical & Surgical Medical Problems: (1) Clostridium difficile colitis (2) Depression (3) Edema (4) GERD (gastroesophageal reflux disease) (5) History diabetes mellitus (6) History of DVT (deep vein thrombosis) (7) History of pulmonary embolism (8) MINI (iron deficiency anemia) (9) Intractable headache (10) Intractable migraine (11) Migraine headache (12) Psoriatic arthritis (13) Pulmonary embolism (14) Sleep apnea (15) Syncope Surgical Problems: (1) H/O wisdom tooth extraction (2) History of carpal tunnel surgery (3) S/P hysterectomy (4) Status post appendectomy (5) Status post cholecystectomy (6) Status post gastric bypass for obesity (7) Status post total knee replacement Family History FHx: rheumatoid arthritis MOTHER GRANDMOTHER Social History Smoking Status: Never Smoker Alcohol Use: none Drug Use: none Marital Status: Housing Status: lives with family Occupation Status: unemployed Current/Historical Medications Scheduled Amitriptyline Hcl (Elavil), 40 MG PO HS Duloxetine Hcl (Cymbalta), 60 MG PO DAILY Ergocalciferol (Vitamin D 10913 Unit), 50,000 INTER.UNIT PO 2XWK Etanercept (Enbrel Sureclick), 50 MG INJ WK Levothyroxine Sodium (Levothyroxine Sodium), 25 MCG PO DAILY Magnesium Oxide (Mg Supplement (Magnesium Oxide), 400 MG PO DAILY Pantoprazole (Pantoprazole Sodium), 40 MG PO BID Probiotic Product (Probiotic), 1 CAP PO TIDM Propranolol (Inderal), 60 MG PO DAILY Riboflavin (Vitamin B-2), 400 MG PO DAILY Trazodone Hcl (Desyrel), 100 MG PO HS Scheduled PRN Albuterol Hfa (Ventolin Hfa), 2 PUFFS INH QID PRN for Shortness of Breath Hyoscyamine Sulfate (Levsin), 0.125 MG PO TID PRN for Abdominal Cramping Ondansetron Odt (Zofran Odt), 8 MG SL Q8 PRN for Nausea Promethazine Hcl (Phenergan), 25 MG PO Q8 PRN for Nausea Sumatriptan Succinate (Sumatriptan Succinate), 50 MG PO UD PRN for Migraine Allergies Coded Allergies: Oxycodone (Verified Allergy, Intermediate, HIVES, 12/18/17) Vancomycin (Verified Adverse Reaction, Unknown, SEE TEXT. . ., 12/18/17) PT STARTED IV VANC TODAY FOR POSSIBLE OSTEOMYELITIS OF RIGHT FOOT. ALSO ON TIMENTIN 3.1G IV Q6H FROM 03/24/08. PHARM'KINETIC VANC CONSULT PATIENT ORDERED VANC 3G IV Q18H IN 560ML TOTAL VOLUME NSS (~5.3MG/ML). AFTER RECEIVING 136ML PT DEVELOPED BODY ITCHING (NO RASH/REDNESS). KAY TEJADA RN CONTACTED DR BANEGAS AND INSTRUCTED TO D/C VANC AND GIVE BENADRYL 50MG PO X1. 03/27/08 @ 1000: SPOKE WITH DR RUIZ: FEELS THIS IS AN INFUSION RELATED RXN BUT CLINICALLY PT IS DOING WORSE AND IS D/C TIMENTIN/VANC AND STARTING TYGACIL. IS THIS AN INFUSION RELATED RXN OR TRUE ALLERGY? I PUT CALL INTO DR BANEGAS TO FURTHER DISCUSS. NO CALL BACK OF TIME OF DOCUMENTATION. AJ Physical Exam Vital Signs Date Time Temp Pulse Resp B/P (MAP) Pulse Ox O2 Delivery O2 Flow Rate FiO2 4/10/18 23:16 78 18 112/76 93 Room Air 12/18/17 20:50 95 Nasal Cannula 2.0 12/18/17 20:41 89 12/18/17 20:30 85 18 113/57 91 Room Air 12/18/17 19:00 82 18 121/70 94 Room Air 12/18/17 14:28 94 18 116/68 96 Room Air 12/18/17 13:11 114 20 132/93 94 Room Air 12/18/17 12:02 107 12/18/17 11:26 36.6 128 20 126/87 93 Room Air Physical Exam GENERAL: alert, well appearing, well nourished, no distress, non-toxic EYE EXAM: normal conjunctiva, PERRL and EOM's grossly intact OROPHARYNX: no exudate, no erythema, lips, buccal mucosa, and tongue normal and mucous membranes are moist NECK: supple, no nuchal rigidity, no adenopathy, non-tender LUNGS: Clear to auscultation. Normal chest wall mechanics HEART: Tachycardic but regular. no murmurs, S1 normal and S2 normal ABDOMEN: abdomen soft, non-tender, normo-active bowel sounds, no masses, no rebound or guarding. BACK: Back is symmetrical on inspection and there is no deformity, no midline tenderness, no CVA tenderness. SKIN: no rashes and no bruising UPPER EXTREMITIES: upper extremities are grossly normal. LOWER EXTREMITIES: No pitting edema. NEURO EXAM: Normal sensorium, cranial nerves II-XII grossly intact, normal speech, no gross weakness of arms, no gross weakness of legs. Medical Decision & Procedures ER Provider Diagnostic Interpretation: Radiology results have been interpreted by the radiologist and reviewed by me. ABDOMEN 2VIEW W/PA CHEST RTN COMPARISON: 05/14/2017 and 04/22/2017. FINDINGS: Cardiomediastinal silhouette normal. No focal opacity. No large effusion or pneumothorax. Cholecystectomy clips noted. Nonobstructive bowel gas pattern. No gross pneumoperitoneum. Anastomotic suture lines noted in the epigastrium and left mid abdomen. Allowing for bowel gas and stool, no calcifications to suggest nephrolithiasis. Degenerative changes of the spine. IMPRESSION: 1. No acute cardiopulmonary disease. 2. Postsurgical changes of Neel-en-Y gastric bypass. No bowel obstruction. Electronically signed by: Alexis Bejarano M.D. ABDOMEN AND PELVIS CT WITH IV CONTRAST CT DOSE: 864.12 mGy.cm HISTORY: Acute nausea, vomiting and diarrhea n/v/d TECHNIQUE: Multiaxial CT images of the abdomen and pelvis were performed following the use of intravenous contrast. A dose lowering technique was utilized adhering to the principles of ALARA. COMPARISON STUDY: CT abdomen and pelvis 02/21/2017. FINDINGS: Linear subsegmental bibasilar opacities favor atelectasis. No pneumatosis or pneumoperitoneum identified. Imaged inferior cardiac chambers are unremarkable. Prior cholecystectomy. Liver, and adrenal glands are unremarkable. Mild to moderate generalized pancreatic atrophy. Scattered calcified granulomas are seen throughout the spleen. Kidneys are unremarkable without renal calculi or hydronephrosis. Moderate urinary bladder distention. Prior hysterectomy. Aorta is normal in course and caliber. No bulky adenopathy. Postoperative changes from prior gastric bypass. There is no bowel obstruction or focal bowel wall thickening identified. Scattered noninflamed colonic diverticula. The appendix is not seen and is likely surgically absent. Postoperative changes of the lower anterior abdominal wall. Tiny fat filled periumbilical hernia. Soft tissues are unremarkable. Bones appear intact. IMPRESSION: 1. No acute intra-abdominal or intrapelvic abnormality identified. No bowel wall thickening or bowel obstruction. 2. Prior cholecystectomy, hysterectomy, appendectomy and gastric bypass. 3. Mild urinary bladder distention. Electronically signed by: Fransisco Owens M.D. 12/18/2017 10:07 PM Dictated Date/Time: 12/18/2017 10:00 PM Laboratory Results 12/18/17 12:05 Red Blood Count 5.21, Mean Corpuscular Volume 86.4, Mean Corpuscular Hemoglobin 30.7, Mean Corpuscular Hemoglobin Concent 35.6, Mean Platelet Volume 9.6, Neutrophils (%) (Auto) 56.7, Lymphocytes (%) (Auto) 33.4, Monocytes (%) (Auto) 8.0, Eosinophils (%) (Auto) 1.2, Basophils (%) (Auto) 0.5, Neutrophils # (Auto) 5.91, Lymphocytes # (Auto) 3.48, Monocytes # (Auto) 0.83, Eosinophils # (Auto) 0.13, Basophils # (Auto) 0.05 12/18/17 12:05 Test 12/18/17 12:05 12/18/17 13:30 White Blood Count 10.42 K/uL (4.8-10.8) Red Blood Count 5.21 M/uL (4.2-5.4) Hemoglobin 16.0 g/dL (12.0-16.0) Hematocrit 45.0 % (37-47) Mean Corpuscular Volume 86.4 fL (80-100) Mean Corpuscular Hemoglobin 30.7 pg (25-34) Mean Corpuscular Hemoglobin Concent 35.6 g/dl (32-36) Platelet Count 403 K/uL (130-400) Mean Platelet Volume 9.6 fL (7.4-10.4) Neutrophils (%) (Auto) 56.7 % Lymphocytes (%) (Auto) 33.4 % Monocytes (%) (Auto) 8.0 % Eosinophils (%) (Auto) 1.2 % Basophils (%) (Auto) 0.5 % Neutrophils # (Auto) 5.91 K/uL (1.4-6.5) Lymphocytes # (Auto) 3.48 K/uL (1.2-3.4) Monocytes # (Auto) 0.83 K/uL (0.11-0.59) Eosinophils # (Auto) 0.13 K/uL (0-0.5) Basophils # (Auto) 0.05 K/uL (0-0.2) RDW Standard Deviation 44.8 fL (36.4-46.3) RDW Coefficient of Variation 14.2 % (11.5-14.5) Immature Granulocyte % (Auto) 0.2 % Immature Granulocyte # (Auto) 0.02 K/uL (0.00-0.02) Prothrombin Time 10.2 SECONDS (9.0-12.0) Prothromb Time International Ratio 1.0 (0.9-1.1) Anion Gap 8.0 mmol/L (3-11) Estimated GFR () 60.6 Estimated GFR (Non- 52.2 BUN/Creatinine Ratio 17.2 (10-20) Calcium Level 8.9 mg/dl (8.5-10.1) Phosphorus Level 3.9 mg/dl (2.5-4.9) Magnesium Level 2.1 mg/dl (1.8-2.4) Total Bilirubin 0.8 mg/dl (0.2-1) Aspartate Amino Transf (AST/SGOT) 23 U/L (15-37) Alanine Aminotransferase (ALT/SGPT) 29 U/L (12-78) Alkaline Phosphatase 165 U/L (45-117) Total Creatine Kinase 106 U/L (26-192) Total Protein 8.2 gm/dl (6.4-8.2) Albumin 4.3 gm/dl (3.4-5.0) Globulin 3.9 gm/dl (2.5-4.0) Albumin/Globulin Ratio 1.1 (0.9-2) Thyroid Stimulating Hormone (TSH) 2.820 uIu/ml (0.300-4.500) Influenza Type A Antigen Neg for Influ A (NEG) Influenza Type B Antigen Neg for Influ B (NEG) Date/Time Source Procedure Growth Status 12/18/17 15:30 Stool C.difficile Toxin B Gene (PCR) - Final No C. difficile toxin B gene detected Complete Laboratory results per my review. Medications Administered Medications (Trade) Dose Ordered Sig/Monalisa Route Start Time Stop Time Status Last Admin Dose Admin Sodium Chloride 1,000 ml @ 999 mls/hr Q1H1M STAT IV 12/18/17 13:09 12/18/17 14:09 DC 12/18/17 13:15 999 MLS/HR Prochlorperazine Edisylate (Compazine Inj) 5 mg NOW STAT IV 12/18/17 13:09 12/18/17 13:12 DC 12/18/17 13:24 5 MG Diphenhydramine HCl (Benadryl Inj) 25 mg NOW STAT IV 12/18/17 13:09 12/18/17 13:12 DC 12/18/17 13:24 25 MG Acetaminophen 1000 mg/Empty Bag 100 ml @ 400 mls/hr NOW STAT IV 12/18/17 13:09 12/18/17 13:23 DC 12/18/17 13:25 400 MLS/HR Sodium Chloride 1,000 ml @ 999 mls/hr Q1H1M STAT IV 12/18/17 14:42 12/18/17 15:42 DC 12/18/17 15:05 999 MLS/HR Potassium Chloride (Klor-Con M10) 40 meq NOW STAT PO 12/18/17 14:42 12/18/17 14:43 DC 12/18/17 15:02 40 MEQ Ketorolac Tromethamine (Toradol Inj) 30 mg NOW STAT IV 12/18/17 15:23 12/18/17 15:30 DC 12/18/17 15:37 30 MG Sodium Chloride 1,000 ml @ 999 mls/hr Q1H1M STAT IV 12/18/17 17:22 12/18/17 18:22 DC 12/18/17 17:22 999 MLS/HR Dicyclomine HCl (Bentyl Cap) 10 mg NOW ONCE PO 12/18/17 17:30 12/18/17 17:31 DC 12/18/17 17:30 10 MG Lorazepam (Ativan Inj) 0.5 mg NOW STAT IV 12/18/17 17:22 12/18/17 17:24 DC 12/18/17 17:22 0.5 MG Ondansetron HCl (Zofran Inj) 4 mg NOW STAT IV 12/18/17 19:55 12/18/17 19:57 DC 12/18/17 20:03 4 MG Promethazine HCl 12.5 mg/Sodium Chloride 50.5 ml @ 204 mls/hr NOW STAT IV 12/18/17 19:55 12/18/17 20:09 DC 12/18/17 20:14 204 MLS/HR Sumatriptan Succinate (Imitrex Tab) 25 mg NOW STAT PO 12/18/17 19:55 12/18/17 19:57 DC 12/18/17 20:32 25 MG ECG Per My Interpretation Indication: weakness Rate (beats per minute): 105 Rhythm: sinus tachycardia Findings: Q waves (v2,v3,v4 and lead 3 ), no acute ischemic change, no ectopy, other (normal axis, normal intervals ) ED Course 1303: The patient was evaluated in room B9. A complete history and physical exam was performed. 1309: Ordered Acetaminophen 1000 mg/Empty bag 100 ml @ 400 mls/hr, Bendadryl Inj 25 mg IV, Compazine Inj 5 mg IV, Sodium Chloride 1000 ml @ 999 mls/hr IV. 1321: Ordered Acetaminophen 1000 mg IV. 1442: Ordered Potassium Chloride 40 meq PO, Sodium Chloride 1000 ml @ 999 mls/ hr IV. 1518: I updated the patient on her test results. She is still feeling unwell. She going to try to give a stool sample. 1523: Ordered Toradol Inj 30 mg IV. 1720: The patient still has a headache and abdominal cramps. Her heart rate has decreased. 172: ordered Lorazepam 0.5 mg IV, Ondansetron HCl 8 mg IV, Sodium Chloride 1000 ml @ 999 mls/hr IV. 1730: Ordered Bentyl Cap 10 mg PO. 1811: The patient's resting heart rate in the 80s. Pt resting. States still has HARRIS, states typically gets dilaudid when her headaches don't go away with "usual" medications. I informed her we do not give narcotics for migraine headaches in accordance with the [place]. 1954: Ordered Imitrex Tab 25 mg PO, Promethazine HCl 12.5 mg/Sodium Chloride 50.5 ml @ 204 mls/hr IV, Zofran Inj 4 mg IV. 7: Upon reevaluation, the patient is feeling better. States still has mild headache but abdominal pain is improved. Patient with no recurrent diarrhea here. Using shared medical decision making, pt comfortable going home and declined admission. I discussed the findings and the treatment plan with the patient. She verbalizes agreement and understanding. She was discharged home. Medical Decision Differential diagnosis: Etiologies such as metabolic, infection, hypo/hyperglycemia, electrolyte abnormalities, cardiac sources, intracerebral event, toxicologic, neurologic, as well as others were entertained. Patient markedly improved here following administration of IV fluids and additional medications. Patient was able to rest, had no recurrent vomiting, did have a few episodes of recurrent diarrhea, stool cultures were sent as a precaution. C. difficile was negative, other stool cultures were pending. Patient's heart rate improved with IV fluids and I feel this is likely secondary to dehydration, although pain was likely contributed factor also. Patient felt that her migraine was caused by her GI illness and dehydration which I feel is possible. Patient's headache today consistent with prior episodes of migraines, patient denies any thunderclap or sudden onset, or other atypical findings for her usual migraines. I do not suspect other acute intracranial pathology, patient with a normal nonfocal neuro exam at bedside. Patient's abdomen soft and nontender throughout. Labs and imaging reassuring. Patient monitored for several hours as a precaution given her symptoms and initial presentation. Do not suspect mesenteric ischemia/ischemic colitis, bowel obstruction, perforation, occult GI bleed, other acute vascular abnormality, bacteremia/sepsis, cardiac or pulmonary pathology. Patient not immunocompromised, not on any long-term steroids or other immunomodulating drugs. Patient able to go back and forth to the bathroom with a steady gait and no orthostatic symptoms. Was tolerating sips of p.o. and crackers at bedside. Discussed with her rest, diet and hydration, use of home medications, follow-up with her family doctor, symptoms to watch and return for, she verbalized understanding was agreeable with plan. Medication Reconcilliation Current Medication List: was personally reviewed by me Blood Pressure Screening Patient's blood pressure: Normal blood pressure Impression Primary Impression: Diarrhea Additional Impressions: Dehydration Hypokalemia Migraine headache Scribe Attestation The scribe's documentation has been prepared under my direction and personally reviewed by me in its entirety. I confirm that the note above accurately reflects all work, treatment, procedures, and medical decision making performed by me. Departure Information Dispostion Home / Self-Care Referrals Shell Pinon M.D. (PCP) Forms HOME CARE DOCUMENTATION FORM, IMPORTANT VISIT INFORMATION, WORK / SCHOOL INSTRUCTIONS Patient Instructions [facility] Additional Instructions Please rest and drink plenty of clear liquids at frequent intervals to stay well -hydrated. You may eat as tolerated. Please call follow-up with your family doctor as a precaution. Your stool cultures will take 24-48 hours to result. If they are abnormal you will receive a phone call in additional medications will be called in to your preferred pharmacy. If you develop increased pain, worsening diarrhea, noticed blood with a bowel movement, have recurrent vomiting , persistent fevers, worsening dizziness, you have any other new concerns, please return the emergency room. Please otherwise take your regular medications as prescribed. Problem Qualifiers Primary Impression: Diarrhea Diarrhea type: unspecified type Qualified Codes: R19.7 - Diarrhea, unspecified Additional Impressions: Migraine headache Migraine type: unspecified Status migrainosus presence: without status migrainosus Intractability: not intractable Qualified Codes: G43.909 - Migraine, unspecified, not intractable, without status migrainosus
[2017-12-18] MEDS ORDERED: PROMETHAZINE HCL INJ 12.5 MG in SODIUM CHLORIDE 0.9% 50ML 50 ML IV STA (19:55)
[2017-12-18] MEDS ORDERED: SUMATRIPTAN SUCCINATE 25 MG TAB PO STA (19:55)
[2017-12-18] MEDS ORDERED: ONDANSETRON INJ 2 MG/ML 2 ML VIAL IV STA (19:55)
[2017-12-18] MEDS ORDERED: OPTIRAY 320 IV PRN (20:45)
[2017-12-18 20:50] VITALS: O2SAT 95
--- NOTE | 2017-12-18 22:08 | DIAGNOSTIC IMAGING REPORT ---
ABDOMEN AND PELVIS CT WITH IV CONTRAST CT DOSE: 864.12 mGy.cm HISTORY: Acute nausea, vomiting and diarrhea n/v/d TECHNIQUE: Multiaxial CT images of the abdomen and pelvis were performed following the use of intravenous contrast. A dose lowering technique was utilized adhering to the principles of ALARA. COMPARISON STUDY: CT abdomen and pelvis 02/21/2017. FINDINGS: Linear subsegmental bibasilar opacities favor atelectasis. No pneumatosis or pneumoperitoneum identified. Imaged inferior cardiac chambers are unremarkable. Prior cholecystectomy. Liver, and adrenal glands are unremarkable. Mild to moderate generalized pancreatic atrophy. Scattered calcified granulomas are seen throughout the spleen. Kidneys are unremarkable without renal calculi or hydronephrosis. Moderate urinary bladder distention. Prior hysterectomy. Aorta is normal in course and caliber. No bulky adenopathy. Postoperative changes from prior gastric bypass. There is no bowel obstruction or focal bowel wall thickening identified. Scattered noninflamed colonic diverticula. The appendix is not seen and is likely surgically absent. Postoperative changes of the lower anterior abdominal wall. Tiny fat filled periumbilical hernia. Soft tissues are unremarkable. Bones appear intact. IMPRESSION: 1. No acute intra-abdominal or intrapelvic abnormality identified. No bowel wall thickening or bowel obstruction. 2. Prior cholecystectomy, hysterectomy, appendectomy and gastric bypass. 3. Mild urinary bladder distention. Electronically signed by: Fransisco Owens M.D. 12/18/2017 10:07 PM Dictated Date/Time: 12/18/2017 10:00 PM
[2017-12-18 23:16] VITALS: BP 112/76; PULSE 78; O2SAT 93
== END 2017-12-18 23:23 | disposition home or self-care (01) ==
LOC: C.EDB 11:26
DX: R19.7 Diarrhea, unspecified (principal); G43.909 Migraine, unspecified, not intractable, without status migrainosus; E87.6 Hypokalemia; E86.0 Dehydration; F32.9 Major depressive disorder, single episode, unspecified; K21.9 Gastro-esophageal reflux disease without esophagitis; E11.9 Type 2 diabetes mellitus without complications; Z86.711 Personal history of pulmonary embolism; Z86.718 Personal history of other venous thrombosis and embolism; D50.9 Iron deficiency anemia, unspecified; G47.30 Sleep apnea, unspecified; L40.50 Arthropathic psoriasis, unspecified; Z90.710 Acquired absence of both cervix and uterus; Z90.49 Acquired absence of other specified parts of digestive tract; Z96.659 Presence of unspecified artificial knee joint; Z98.84 Bariatric surgery status; Z82.61 Family history of arthritis; Z79.899 Other long term (current) drug therapy; Z88.5 Allergy status to narcotic agent; Z88.1 Allergy status to other antibiotic agents

== ENCOUNTER 2017-12-26 14:24 | Inpatient (IN) | payer OTHER ==
[~2017-12-26] VITALS: Ht 165.1 cm; Wt 93.3 kg
[~2017-12-26 14:24] MED LIST changes: -APRE1TAB3 PO; -CYNI1000 IM; -DULO60CA44 PO; -ERGO500011 PO; +ETAN50IN3 INJ; -GUAI100S6 PO; -HYOS1TAB PO; -IMT50 PO; -LEVO25TA5 PO; -MAGN1TAB19 PO; -MISCCAP80 PO; -ONDA8TAB62 SL; -PANT40TA2 PO; -PRED20TA PO; +PROP1TAB PO; -TOPI25TA99 PO; -VITB2100 PO
[2017-12-26 14:31] VITALS: Ht 165.1 cm; Wt 93.3 kg
[2017-12-26] MEDS ORDERED: VITB2100 PO (14:42)
[2017-12-26] MEDS ORDERED: PROM25TA9 PO (14:44)
--- NOTE | 2017-12-26 14:55 | EMERGENCY ROOM VISIT NOTE ---
History First contact with patient: 14:37 Chief Complaint: PELVIC PAIN Stated Complaint: SEVERE PAIN,PASSING OUT,NAUSEA,NO URINE History of Present Illness The patient is a 52 year old female who presents to the Emergency Room with complaints of severe pain in her lower abdomen that started this morning. The patient also reports an episode of syncope prior to arrival. [facility] with her when she passed out. She did not fall. When she came to, the pain in her abdomen was worse. She describes as a sharp, stabbing, constant pain. She is also is complaining of pain in her right upper chest that started this morning. No shortness of breath. She denies any nausea or vomiting. She reports constipation. No vaginal bleeding. Review of Systems 10 system review performed and negative unless noted in HPI or below Past Medical/Surgical History Medical Problems: (1) Clostridium difficile colitis (2) Depression (3) Edema (4) GERD (gastroesophageal reflux disease) (5) History diabetes mellitus (6) History of DVT (deep vein thrombosis) (7) History of pulmonary embolism (8) MINI (iron deficiency anemia) (9) Migraine headache (10) Psoriatic arthritis (11) Pulmonary embolism (12) Sleep apnea (13) Syncope Surgical Problems: (1) H/O wisdom tooth extraction (2) History of carpal tunnel surgery (3) S/P hysterectomy (4) Status post appendectomy (5) Status post cholecystectomy (6) Status post gastric bypass for obesity (7) Status post total knee replacement Family History FHx: rheumatoid arthritis MOTHER GRANDMOTHER Social History Smoking Status: Never Smoker Alcohol Use: none Drug Use: none Marital Status: Housing Status: lives with family Occupation Status: unemployed Current/Historical Medications Scheduled Amitriptyline HCl (Amitriptyline HCl), 40 MG PO HS Duloxetine Hcl (Cymbalta), 60 MG PO DAILY Ergocalciferol (Vitamin D 60200 Unit), 50,000 INTER.UNIT PO 2XWK Etanercept (Enbrel Mini), 50 MG INJ WK Levothyroxine Sodium (Levothyroxine Sodium), 25 MCG PO DAILY Magnesium Oxide (Mg Supplement (Magnesium Oxide), 400 MG PO DAILY Pantoprazole (Pantoprazole Sodium), 40 MG PO BID Probiotic Product (Probiotic), 1 CAP PO TIDM Propranolol HCl (Propranolol HCl ER), 60 MG PO DAILY Riboflavin (Vitamin B-2), 400 MG PO DAILY Trazodone HCl (Trazodone HCl), 100 MG PO HS Scheduled PRN Albuterol Hfa (Ventolin Hfa), 2 PUFFS INH QID PRN for Shortness of Breath Hyoscyamine Sulfate (Levsin), 0.125 MG PO TID PRN for Abdominal Cramping Ondansetron Odt (Zofran Odt), 8 MG SL Q8 PRN for Nausea Promethazine Hcl (Phenergan), 25 MG PO Q8 PRN for Nausea Sumatriptan Succinate (Sumatriptan Succinate), 50 MG PO UD PRN for Migraine Physical Exam Vital Signs Date Time Temp Pulse Resp B/P (MAP) Pulse Ox O2 Delivery O2 Flow Rate FiO2 12/26/17 18:19 81 20 126/75 98 Room Air 12/26/17 17:04 87 12/26/17 17:00 84 26 122/82 12/26/17 15:46 87 20 98 Room Air 12/26/17 15:07 98 20 127/76 99 103/71 107 100/78 12/26/17 14:57 98 12/26/17 14:31 36.6 112 20 110/72 97 Room Air Physical Exam VITALS: Vitals are noted on the nurse's note and reviewed by myself. Vital signs stable. GENERAL: 52-year-old female, obviously anxious in appearance, SKIN: The skin was without rashes, erythema, edema, or bruising. HEAD: Normocephalic atraumatic. MOUTH: Mucous membranes moderately dry NECK: Supple without nuchal rigidity. No lymphadenopathy. Cervical spine is nontender. No JVD. HEART: Regular rate and rhythm without murmurs gallops or rubs. LUNGS: Clear to auscultation bilaterally without wheezes, rales or rhonchi. No accessory muscle use. ABDOMEN: Positive bowel sounds x 4.Soft, tenderness to palpation in the suprapubic region, without organomegaly. No guarding or rebound tenderness. MUSCULOSKELETAL: No muscle atrophy, erythema, or edema noted.. Strength 5/5 throughout. NEURO: Patient was alert and oriented to person place and time. Normal sensation to touch. No focal neurological deficits. Medical Decision & Procedures ER Provider Diagnostic Interpretation: cxr IMPRESSION: No active disease in the chest. Electronically signed by: Amish Orantes M.D. 12/26/2017 3:33 PM Dictated Date/Time: 12/26/2017 3:[address] abdomen and pelvis with IV contrast IMPRESSION: 1. No acute intra-abdominal or pelvic findings 2. Postsurgical changes of a gastric bypass 3. No evidence of bowel obstruction. No evidence of free air 4. No acute inflammatory changes there is minimal bladder distention. 5. Mild bladder distention unchanged the preceding study Electronically signed by: Amish Orantes M.D. 12/26/2017 4:25 PM Dictated Date/Time: 12/26/2017 4:22 PM Laboratory Results 12/26/17 15:00 Red Blood Count 4.59, Mean Corpuscular Volume 86.3, Mean Corpuscular Hemoglobin 29.6, Mean Corpuscular Hemoglobin Concent 34.3, Mean Platelet Volume 9.1, Neutrophils (%) (Auto) 44.4, Lymphocytes (%) (Auto) 45.8, Monocytes (%) (Auto) 6.2, Eosinophils (%) (Auto) 2.9, Basophils (%) (Auto) 0.6, Neutrophils # (Auto) 3.08, Lymphocytes # (Auto) 3.18, Monocytes # (Auto) 0.43, Eosinophils # (Auto) 0.20, Basophils # (Auto) 0.04 12/26/17 15:00 Test 12/26/17 15:00 12/26/17 18:30 White Blood Count 6.94 K/uL (4.8-10.8) Red Blood Count 4.59 M/uL (4.2-5.4) Hemoglobin 13.6 g/dL (12.0-16.0) Hematocrit 39.6 % (37-47) Mean Corpuscular Volume 86.3 fL (80-100) Mean Corpuscular Hemoglobin 29.6 pg (25-34) Mean Corpuscular Hemoglobin Concent 34.3 g/dl (32-36) Platelet Count 277 K/uL (130-400) Mean Platelet Volume 9.1 fL (7.4-10.4) Neutrophils (%) (Auto) 44.4 % Lymphocytes (%) (Auto) 45.8 % Monocytes (%) (Auto) 6.2 % Eosinophils (%) (Auto) 2.9 % Basophils (%) (Auto) 0.6 % Neutrophils # (Auto) 3.08 K/uL (1.4-6.5) Lymphocytes # (Auto) 3.18 K/uL (1.2-3.4) Monocytes # (Auto) 0.43 K/uL (0.11-0.59) Eosinophils # (Auto) 0.20 K/uL (0-0.5) Basophils # (Auto) 0.04 K/uL (0-0.2) RDW Standard Deviation 44.2 fL (36.4-46.3) RDW Coefficient of Variation 14.3 % (11.5-14.5) Immature Granulocyte % (Auto) 0.1 % Immature Granulocyte # (Auto) 0.01 K/uL (0.00-0.02) Prothrombin Time 10.0 SECONDS (9.0-12.0) Prothromb Time International Ratio 1.0 (0.9-1.1) Anion Gap 10.0 mmol/L (3-11) Estimated GFR () 58.7 Estimated GFR (Non- 50.7 BUN/Creatinine Ratio 15.6 (10-20) Calcium Level 9.1 mg/dl (8.5-10.1) Magnesium Level 2.2 mg/dl (1.8-2.4) Total Bilirubin 0.3 mg/dl (0.2-1) Aspartate Amino Transf (AST/SGOT) 15 U/L (15-37) Alanine Aminotransferase (ALT/SGPT) 23 U/L (12-78) Alkaline Phosphatase 128 U/L (45-117) Total Creatine Kinase 58 U/L (26-192) Creatine Kinase MB 0.7 ng/ml (0.5-3.6) Creatine Kinase MB Ratio 1.2 (0-3.0) Troponin I < 0.015 ng/ml (0-0.045) Total Protein 6.9 gm/dl (6.4-8.2) Albumin 3.7 gm/dl (3.4-5.0) Globulin 3.2 gm/dl (2.5-4.0) Albumin/Globulin Ratio 1.2 (0.9-2) Lipase 131 U/L (73-393) Urine Color DK YELLOW Urine Appearance CLEAR (CLEAR) Urine pH 6.0 (4.5-7.5) Urine Specific [place] 1.023 (1.000-1.030) Urine Protein NEG (NEG) Urine Glucose (UA) TRACE (NEG) Urine Ketones NEG (NEG) Urine Occult Blood NEG (NEG) Urine Nitrite NEG (NEG) Urine Bilirubin NEG (NEG) Urine Urobilinogen NEG (NEG) Urine Leukocyte Esterase NEG (NEG) Urine Test NEG (NEG) Medications Administered Medications (Trade) Dose Ordered Sig/Monalisa Route Start Time Stop Time Status Last Admin Dose Admin Sodium Chloride 1,000 ml @ 999 mls/hr Q1H1M ONCE IV 12/26/17 15:00 12/26/17 16:00 DC 12/26/17 15:07 999 MLS/HR Morphine Sulfate (MoRPHine SULFATE INJ) 4 mg Q1H PRN IV 12/26/17 15:00 12/26/17 21:09 DC 12/26/17 17:19 4 MG Potassium Chloride (Klor-Con M10) 40 meq NOW STAT PO 12/26/17 16:01 12/26/17 16:03 DC 12/26/17 16:09 40 MEQ Ondansetron HCl (Zofran Inj) 4 mg Q2H PRN IV 12/26/17 16:45 01/25/18 16:44 12/26/17 17:20 4 MG Sodium Chloride 1,000 ml @ 999 mls/hr Q1H1M ONCE IV 12/26/17 17:00 12/26/17 18:00 DC 12/26/17 17:19 999 MLS/HR Promethazine HCl (Phenergan Inj) 25 mg NOW STAT IM 12/26/17 17:53 12/26/17 17:55 DC 12/26/17 18:19 25 MG Polyethylene (Miralax Powder Packet) 17 gm DAILY PRN PO 12/26/17 19:00 01/25/18 18:59 12/26/17 21:04 17 GM Ondansetron HCl (Zofran Inj) 4 mg Q6H PRN IV 12/26/17 19:00 01/25/18 18:59 12/26/17 21:45 4 MG ECG Per My Interpretation Indication: chest pain Rate (beats per minute): 98 Rhythm: normal sinus Findings: other (Old septal and inferior infarct. No significant change when compared to study from 12/18) Change: no significant change ED Course Patient was seen and examined Vital signs including blood pressure were reviewed medications list was verified with patient Labs were obtained, and a saline lock was established The patient was medicated with morphine 4 mg IV. She was hydrated with 1 L of normal saline. Upon reevaluation, the patient was still complaining of pain and nausea. She was medicated with Zofran and morphine. Her workup was reviewed. The case was discussed with my supervising physician. The patient was again reassessed. She was still complaining of nausea. She was ordered Phenergan 25 mg IM. We discussed her workup. She voiced understanding. A bladder scan was performed. A Ferrari catheter was subsequently inserted. The case was discussed with case management. It was then discussed with the [facility], who kindly agreed to admit the patient for further workup and treatment Medical Decision Differential diagnosis: UTI, ureteral stone, incarcerated hernia, cardiac arrhythmia, ischemia, PE, intracranial abnormality, This patient is a 52-year-old female that presents to the emergency department with a main complaint of lower abdominal pain. She feels very dehydrated. She reportedly had an episode of syncope earlier today. She denied any chest pain. Her EKG is unchanged when compared to previous. Her troponin is negative. I do not suspect cardiac ischemia. She also complains of nausea and a migraine headache. Neurologically, she was intact. She did appear dehydrated. She was also orthostatic. I ordered a CT of her abdomen and pelvis to evaluate the abdominal pain. There was mild bladder distention. Otherwise, it was unremarkable. The patient's workup reveals a slight elevation in her creatinine. The patient was found to be in urinary retention with almost 1 L of urine in her bladder. A Ferrari was inserted. The etiology of this is unclear , however her medications may be the culprit. Unfortunately, I was not able to control the patient's nausea in the emergency department. For this reason, the patient will be kept in the hospital overnight for further workup and treatment. This chart was completed in part utilizing [employer] Speech Voice Recognition software. Attempts were made to minimize the grammatical errors, random word insertions, pronoun errors and incomplete sentences. Any formal questions or concerns about the content, text or information contained within the body of this dictation should be directly addressed to the provider for clarification. Medication Reconcilliation Current Medication List: was personally reviewed by me Blood Pressure Screening Patient's blood pressure: Normal blood pressure Consults Consulting Physician: [facility] Impression Primary Impression: Urinary retention Departure Information Referrals Shell Pinon M.D. (PCP) Patient Instructions [facility]
[2017-12-26] MEDS ORDERED: SODIUM CHLORIDE 0.9% 1000ML 1,000 ML IV ONE ×2 (15:00→17:00)
[2017-12-26] MEDS: MoRPHine SULFATE 4 MG/ML 1 ML CARP\\VIAL IV PRN ×4 (15:07→20:36)
[2017-12-26 15:08] LABS: BASO % 0.6 %; EOS % 2.9 %; HEMATOCRIT 39.6 % (37-47); HEMOGLOBIN 13.6 g/dL (12.0-16.0); LYMPH % 45.8 %; LYMPH ABS # 3.18 K/uL (1.2-3.4); MEAN CELL VOLUME 86.3 fL (80-100); MEAN CORPUSCULAR HEMOGLOBIN 29.6 pg (25-34); MEAN CORPUSCULAR HGB CONC 34.3 g/dl (32-36); MEAN PLATELET VOLUME 9.1 fL (7.4-10.4); MONO % 6.2 %; NEUT % 44.4 %; NEUT ABS # 3.08 K/uL (1.4-6.5); PLATELET COUNT 277 K/uL (130-400); RED CELL DISTRIBUTION WIDTH CV 14.3 % (11.5-14.5); RED CELL DISTRIBUTION WIDTH SD 44.2 fL (36.4-46.3); WHITE BLOOD COUNT 6.94 K/uL (4.8-10.8)
[2017-12-26 15:09] LABS: BASO ABS # 0.04 K/uL (0-0.2); IG# 0.01 K/uL (0.00-0.02); MONO ABS # 0.43 K/uL (0.11-0.59)
[2017-12-26] MEDS ORDERED: OPTIRAY 320 IV PRN (15:15)
[2017-12-26] MEDS ORDERED: LEVO25TA5 PO (15:26)
--- NOTE | 2017-12-26 15:34 | DIAGNOSTIC IMAGING REPORT ---
CHEST ONE VIEW PORTABLE CLINICAL HISTORY: Atypical chest pain. Syncope. COMPARISON STUDY: 12/18/2017 FINDINGS: The cardiac and mediastinal contours are normal. There is no evidence of focal pulmonary consolidation. There is no evidence of failure. No pleural effusions are visualized.[ IMPRESSION: No active disease in the chest. Electronically signed by: Amish Orantes M.D. 12/26/2017 3:33 PM Dictated Date/Time: 12/26/2017 3:33 PM
[2017-12-26 15:40] LABS: ALBUMIN 3.7 gm/dl (3.4-5.0); ALT/SGPT 23 U/L (12-78); AST/SGOT 15 U/L (15-37); BLOOD UREA NITROGEN 19 mg/dl (7-18); CALCIUM 9.1 mg/dl (8.5-10.1); CARBON DIOXIDE 24 mmol/L (21-32); CREATININE 1.21 mg/dl (0.60-1.20); GLUCOSE 187 mg/dl (70-99); LIPASE 131 U/L (73-393); POTASSIUM 3.2 mmol/L (3.5-5.1); SODIUM 137 mmol/L (136-145)
[2017-12-26 15:45] LABS: ALKALINE PHOSPHATASE 128 U/L (45-117); CKMB 0.7 ng/ml (0.5-3.6); TOTAL PROTEIN 6.9 gm/dl (6.4-8.2)
[2017-12-26] MEDS ORDERED: DULO60CA44 PO (15:59)
[2017-12-26] MEDS ORDERED: ONDA8TAB62 SL (15:59)
[2017-12-26] MEDS ORDERED: MAGN1TAB19 PO (15:59)
[2017-12-26] MEDS ORDERED: MISCCAP80 PO (15:59)
[2017-12-26] MEDS ORDERED: POTASSIUM CHLORIDE 10 MEQ TABCR PO STA (16:01)
[2017-12-26] MEDS ORDERED: DSY100 PO (16:17)
[2017-12-26] MEDS ORDERED: PROP60CA PO (16:17)
[2017-12-26] MEDS ORDERED: ETAN50IN5 INJ (16:17)
[2017-12-26] MEDS ORDERED: AMT10 PO (16:17)
--- NOTE | 2017-12-26 16:26 | DIAGNOSTIC IMAGING REPORT ---
CT ABD/PELVIS IV CONTRAST ONLY CLINICAL HISTORY: Severe lower abdominal pain COMPARISON STUDY: 12/18/2017 TECHNIQUE: Following the IV administration of 94 mL of Optiray-320, CT scan of the abdomen and pelvis was performed from the lung bases to the proximal femurs. Images are reviewed in the axial, sagittal, and coronal planes. IV contrast was administered without complication. A dose lowering technique was utilized adhering to the principles of ALARA. CT DOSE: 982.20 mGy.cm FINDINGS: Lower chest: There are by basilar atelectatic changes. Liver: The contrast-enhanced liver is normal in size, contour, and attenuation. There is no intrahepatic biliary ductal dilatation. The hepatic veins and portal veins are patent. Gallbladder: Surgically absent Spleen: Normal in size and attenuation. Pancreas: Unremarkable. Adrenal glands: Unremarkable. Kidneys: There is symmetric renal cortical enhancement. The kidneys are normal in size without hydronephrosis. Bowel: There are postsurgical changes of a gastric bypass and Neel-en-Y anastomosis. There are no transition zones to indicate bowel obstruction. There is no evidence of acute diverticulitis. There are no findings to indicate acute appendicitis. There is scattered stool throughout the colon. Peritoneum: There is no intraperitoneal free air or abdominal ascites. There is a tiny fat-containing umbilical hernia. Vasculature: The abdominal aorta is normal in course and caliber. Adenopathy: None. Pelvic viscera: The uterus appears surgically absent. Skeletal structures: No destructive osseous lesions are seen. IMPRESSION: 1. No acute intra-abdominal or pelvic findings 2. Postsurgical changes of a gastric bypass 3. No evidence of bowel obstruction. No evidence of free air 4. No acute inflammatory changes there is minimal bladder distention. 5. Mild bladder distention unchanged the preceding study Electronically signed by: Amish Orantes M.D. 12/26/2017 4:25 PM Dictated Date/Time: 12/26/2017 4:22 PM
[2017-12-26] MEDS ORDERED: SODIUM CHLORIDE 0.9% 500ML 500 ML IV STA (16:39)
[2017-12-26] MEDS ORDERED: HYOS1TAB PO (16:46)
[2017-12-26] MEDS: ONDANSETRON INJ 2 MG/ML 2 ML VIAL IV PRN ×2 (17:20→21:45)
[2017-12-26] MEDS ORDERED: PANT40TA2 PO (17:34)
[2017-12-26] MEDS ORDERED: PROMETHAZINE HCL INJ 25 MG/ML 1 ML VIAL IM STA (17:53)
[2017-12-26] MEDS ORDERED: IMT50 PO (18:01)
--- NOTE | 2017-12-26 18:55 | Pharmacy Progress Note ---
ED Pharmacist Progress Note Date of Service: Dec 26, 2017. Situation/Background Was asked by Sofia Garcia PA-C to review patient's medication list to determine if medications could be contributing to urinary retention Assessment * Patient is on multiple agents that cause urinary retention including multiple agents with anticholinergic properties (common side effects = blurry vision, urinary retention, dry mouth, constipation) * Medications that may cause urinary retention include the following: * *Hyoscyamine - on for 1-2 years. Takes BID scheduled. Patient reports this is for diverticulitis. * *Amitriptyline - on since April for migraine * Duloxetine - on since April for migraine * Ondansetron - takes prn, on average once per week, for migraine * Promethazine - takes prn, on average once per week, for migraine * Trazodone - on for "a long time" * Anticholinergic related symptoms * Patient reports that urinary retention noticeably started about 3 days ago * Patient also reports severe dry mouth x 1 week that is new for her * Denied constipation (diarrhea is sometimes an issue for her) * Denied blurry vision * I have a high clinical suspicion that this is a medication-related side effect as she is on multiple anticholinergic medications and she also has an additional anticholinergic symptom (dry mouth) that started at around the same time Recommendation * Patient's medications should be adjusted to minimize anticholinergic effects. Two biggest culprits are likely hyoscyamine and amitriptyline * Consider discontinuation of hyoscyamine - prolonged therapy likely not needed for diverticulitis * Consider tapering then discontinuing amitriptyline (abrupt discontinuation should be avoided) * May then also need to consider additional agent(s) for migraine prophylaxis
[2017-12-26] MEDS ORDERED: ACETAMINOPHEN 325 MG TAB PO PRN (19:00)
[2017-12-26] MEDS ORDERED: SODIUM CHLORIDE 0.45% 1000ML 1,000 ML IV SCH (19:15)
[2017-12-26] MEDS ORDERED: ERGO500011 PO (19:19)
--- NOTE | 2017-12-26 19:23 | History and Physical ---
History & Physical Date & Time of Service: Dec 26, 2017 ~ 1845 Chief Complaint: Lower abdominal pain Primary Care Physician: Shell Pinon M.D. History of Present Illness 52-year-old female who presents the ED with severe lower abdominal pain. Patient was seen in the ED on December 18 for nausea, vomiting, diarrhea. She reports she continues to not feel well from that ED visit. Today while out shopping, patient reports she had sudden onset of tunnel vision and subsequently passed out. When she came to she reports she had severe lower abdominal pain radiating into the left side of her groin. There is no reported seizure-like activity, tongue biting, loss of bowel or bladder function. No reported postictal-like symptoms. Patient reports she had 2 additional syncopal episodes yesterday as well. Patient reports she continues to feel nauseous and has a poor appetite. Over the past 3 days, she reports very minimal urine output. No further vomiting or diarrhea. She denies fever and chills. No chest pain or shortness of breath. In the ED, patient was found to be retaining 1 L of urine. Ferrari catheter was placed. Labs show a mildly low potassium at 3.2 and mildly elevated creatinine at 1.2. Patient was given IVF, potassium replacement, IV Phenergan, IV Zofran, and IV morphine. Past Medical/Surgical History Medical Problems: (1) Clostridium difficile colitis Status: Resolved (2) Depression Status: Chronic (3) Edema Status: Chronic (4) GERD (gastroesophageal reflux disease) Status: Chronic (5) History diabetes mellitus Permanent Comment: improved after gastric bypass Status: Resolved (6) History of DVT (deep vein thrombosis) Status: Chronic (7) History of pulmonary embolism Permanent Comment: completed 6 months Coumadin therapy Status: Resolved (8) MINI (iron deficiency anemia) Status: Chronic (9) Migraine headache Status: Chronic (10) Psoriatic arthritis Status: Chronic (11) Sleep apnea Status: Chronic Surgical Problems: (1) H/O wisdom tooth extraction Status: Chronic (2) History of carpal tunnel surgery Status: Chronic (3) S/P hysterectomy Status: Chronic (4) Status post appendectomy Status: Chronic (5) Status post cholecystectomy Status: Chronic (6) Status post gastric bypass for obesity Status: Chronic (7) Status post total knee replacement Status: Chronic Family History FHx: rheumatoid arthritis MOTHER GRANDMOTHER Social History Smoking Status: Never Smoker Alcohol Use: none Marital Status: Immunizations History of Influenza Vaccine: Yes Influenza Vaccine Date: Jun 19, 2017 History of Tetanus Vaccine?: Yes Tetanus Immunization Date: Dec 01, 2015 History of Pneumococcal: Yes Pneumococcal Date: Jun 19, 2017 Allergies Coded Allergies: Oxycodone (Verified Allergy, Intermediate, HIVES, 12/18/17) Vancomycin (Verified Adverse Reaction, Unknown, SEE TEXT. . ., 12/18/17) PT STARTED IV VANC TODAY FOR POSSIBLE OSTEOMYELITIS OF RIGHT FOOT. ALSO ON TIMENTIN 3.1G IV Q6H FROM 03/24/08. PHARM'KINETIC VANC CONSULT PATIENT ORDERED VANC 3G IV Q18H IN 560ML TOTAL VOLUME NSS (~5.3MG/ML). AFTER RECEIVING 136ML PT DEVELOPED BODY ITCHING (NO RASH/REDNESS). KAY TEJADA RN CONTACTED DR BANEGAS AND INSTRUCTED TO D/C VANC AND GIVE BENADRYL 50MG PO X1. 03/27/08 @ 1000: SPOKE WITH DR RUIZ: FEELS THIS IS AN INFUSION RELATED RXN BUT CLINICALLY PT IS DOING WORSE AND IS D/C TIMENTIN/VANC AND STARTING TYGACIL. IS THIS AN INFUSION RELATED RXN OR TRUE ALLERGY? I PUT CALL INTO DR BANEGAS TO FURTHER DISCUSS. NO CALL BACK OF TIME OF DOCUMENTATION. AJ Home Medications Scheduled Amitriptyline HCl (Amitriptyline HCl), 40 MG PO HS Duloxetine Hcl (Cymbalta), 60 MG PO DAILY Ergocalciferol (Vitamin D 13771 Unit), 50,000 INTER.UNIT PO 2XWK Etanercept (Enbrel Mini), 50 MG INJ WK Levothyroxine Sodium (Levothyroxine Sodium), 25 MCG PO DAILY Magnesium Oxide (Mg Supplement (Magnesium Oxide), 400 MG PO DAILY Pantoprazole (Pantoprazole Sodium), 40 MG PO BID Probiotic Product (Probiotic), 1 CAP PO TIDM Propranolol HCl (Propranolol HCl ER), 60 MG PO DAILY Riboflavin (Vitamin B-2), 400 MG PO DAILY Trazodone HCl (Trazodone HCl), 100 MG PO HS Scheduled PRN Albuterol Hfa (Ventolin Hfa), 2 PUFFS INH QID PRN for Shortness of Breath Hyoscyamine Sulfate (Levsin), 0.125 MG PO TID PRN for Abdominal Cramping Ondansetron Odt (Zofran Odt), 8 MG SL Q8 PRN for Nausea Promethazine Hcl (Phenergan), 25 MG PO Q8 PRN for Nausea Sumatriptan Succinate (Sumatriptan Succinate), 50 MG PO UD PRN for Migraine Review of Systems ROS per HPI, all other systems reviewed and negative Physical Exam Vital Signs Date Time Temp Pulse Resp B/P (MAP) Pulse Ox O2 Delivery O2 Flow Rate FiO2 12/26/17 18:19 81 20 126/75 98 Room Air 12/26/17 17:04 87 12/26/17 17:00 84 26 122/82 12/26/17 15:46 87 20 98 Room Air 12/26/17 15:07 98 20 127/76 99 103/71 107 100/78 12/26/17 14:57 98 12/26/17 14:31 36.6 112 20 110/72 97 Room Air General Appearance: WD/WN, no apparent distress Head: normocephalic, atraumatic Eyes: normal inspection, EOMI, sclerae normal ENT: hearing grossly normal, + pertinent finding (Mucous membranes dry) Neck: supple, no JVD, trachea midline Respiratory/Chest: no respiratory distress, + decreased breath sounds ( Bilateral bases) Cardiovascular: regular rate, rhythm, no edema, normal peripheral pulses Abdomen/GI: normal bowel sounds, non tender, soft, no organomegaly Genitourinary - Female: + pertinent finding (Ferrari in place draining clear yellow urine) Back: no CVA tenderness Extremities/Musculoskelatal: normal inspection, no calf tenderness, normal capillary refill, no pedal edema Neurologic/Psych: no motor/sensory deficits, alert, normal mood/affect, oriented x 3 Skin: normal color, warm/dry Diagnostics Laboratory Results 12/26/17 15:00 Red Blood Count 4.59, Mean Corpuscular Volume 86.3, Mean Corpuscular Hemoglobin 29.6, Mean Corpuscular Hemoglobin Concent 34.3, Mean Platelet Volume 9.1, Neutrophils (%) (Auto) 44.4, Lymphocytes (%) (Auto) 45.8, Monocytes (%) (Auto) 6.2, Eosinophils (%) (Auto) 2.9, Basophils (%) (Auto) 0.6, Neutrophils # (Auto) 3.08, Lymphocytes # (Auto) 3.18, Monocytes # (Auto) 0.43, Eosinophils # (Auto) 0.20, Basophils # (Auto) 0.04 12/26/17 15:00 Test 12/26/17 15:00 12/26/17 18:30 White Blood Count 6.94 K/uL (4.8-10.8) Red Blood Count 4.59 M/uL (4.2-5.4) Hemoglobin 13.6 g/dL (12.0-16.0) Hematocrit 39.6 % (37-47) Mean Corpuscular Volume 86.3 fL (80-100) Mean Corpuscular Hemoglobin 29.6 pg (25-34) Mean Corpuscular Hemoglobin Concent 34.3 g/dl (32-36) Platelet Count 277 K/uL (130-400) Mean Platelet Volume 9.1 fL (7.4-10.4) Neutrophils (%) (Auto) 44.4 % Lymphocytes (%) (Auto) 45.8 % Monocytes (%) (Auto) 6.2 % Eosinophils (%) (Auto) 2.9 % Basophils (%) (Auto) 0.6 % Neutrophils # (Auto) 3.08 K/uL (1.4-6.5) Lymphocytes # (Auto) 3.18 K/uL (1.2-3.4) Monocytes # (Auto) 0.43 K/uL (0.11-0.59) Eosinophils # (Auto) 0.20 K/uL (0-0.5) Basophils # (Auto) 0.04 K/uL (0-0.2) RDW Standard Deviation 44.2 fL (36.4-46.3) RDW Coefficient of Variation 14.3 % (11.5-14.5) Immature Granulocyte % (Auto) 0.1 % Immature Granulocyte # (Auto) 0.01 K/uL (0.00-0.02) Anion Gap 10.0 mmol/L (3-11) Estimated GFR () 58.7 Estimated GFR (Non- 50.7 BUN/Creatinine Ratio 15.6 (10-20) Calcium Level 9.1 mg/dl (8.5-10.1) Magnesium Level 2.2 mg/dl (1.8-2.4) Total Bilirubin 0.3 mg/dl (0.2-1) Aspartate Amino Transf (AST/SGOT) 15 U/L (15-37) Alanine Aminotransferase (ALT/SGPT) 23 U/L (12-78) Alkaline Phosphatase 128 U/L (45-117) Total Creatine Kinase 58 U/L (26-192) Creatine Kinase MB 0.7 ng/ml (0.5-3.6) Creatine Kinase MB Ratio 1.2 (0-3.0) Troponin I < 0.015 ng/ml (0-0.045) Total Protein 6.9 gm/dl (6.4-8.2) Albumin 3.7 gm/dl (3.4-5.0) Globulin 3.2 gm/dl (2.5-4.0) Albumin/Globulin Ratio 1.2 (0.9-2) Lipase 131 U/L (73-393) Urine Color DK YELLOW Urine Appearance CLEAR (CLEAR) Urine pH 6.0 (4.5-7.5) Urine Specific [place] 1.023 (1.000-1.030) Urine Protein NEG (NEG) Urine Glucose (UA) TRACE (NEG) Urine Ketones NEG (NEG) Urine Occult Blood NEG (NEG) Urine Nitrite NEG (NEG) Urine Bilirubin NEG (NEG) Urine Urobilinogen NEG (NEG) Urine Leukocyte Esterase NEG (NEG) Urine Test NEG (NEG) Results Past 24 Hours Test 12/26/17 15:00 12/26/17 18:30 Range/Units White Blood Count 6.94 4.8-10.8 K/uL Red Blood Count 4.59 4.2-5.4 M/uL Hemoglobin 13.6 12.0-16.0 g/dL Hematocrit 39.6 37-47 % Mean Corpuscular Volume 86.3 80-100 fL Mean Corpuscular Hemoglobin 29.6 25-34 pg Mean Corpuscular Hemoglobin Concent 34.3 32-36 g/dl Platelet Count 277 130-400 K/uL Mean Platelet Volume 9.1 7.4-10.4 fL Neutrophils (%) (Auto) 44.4 % Lymphocytes (%) (Auto) 45.8 % Monocytes (%) (Auto) 6.2 % Eosinophils (%) (Auto) 2.9 % Basophils (%) (Auto) 0.6 % Neutrophils # (Auto) 3.08 1.4-6.5 K/uL Lymphocytes # (Auto) 3.18 1.2-3.4 K/uL Monocytes # (Auto) 0.43 0.11-0.59 K/uL Eosinophils # (Auto) 0.20 0-0.5 K/uL Basophils # (Auto) 0.04 0-0.2 K/uL RDW Standard Deviation 44.2 36.4-46.3 fL RDW Coefficient of Variation 14.3 11.5-14.5 % Immature Granulocyte % (Auto) 0.1 % Immature Granulocyte # (Auto) 0.01 0.00-0.02 K/uL Sodium Level 137 136-145 mmol/L Potassium Level 3.2 3.5-5.1 mmol/L Chloride Level 104 98-107 mmol/L Carbon Dioxide Level 24 21-32 mmol/L Anion Gap 10.0 3-11 mmol/L Blood Urea Nitrogen 19 7-18 mg/dl Creatinine 1.21 0.60-1.20 mg/dl Estimated GFR () 58.7 Estimated GFR (Non- 50.7 BUN/Creatinine Ratio 15.6 10-20 Random Glucose 187 70-99 mg/dl Calcium Level 9.1 8.5-10.1 mg/dl Total Bilirubin 0.3 0.2-1 mg/dl Aspartate Amino Transf (AST/SGOT) 15 15-37 U/L Alanine Aminotransferase (ALT/SGPT) 23 12-78 U/L Alkaline Phosphatase 128 45-117 U/L Total Creatine Kinase 58 26-192 U/L Creatine Kinase MB 0.7 0.5-3.6 ng/ml Creatine Kinase MB Ratio 1.2 0-3.0 Troponin I < 0.015 0-0.045 ng/ml Total Protein 6.9 6.4-8.2 gm/dl Albumin 3.7 3.4-5.0 gm/dl Globulin 3.2 2.5-4.0 gm/dl Albumin/Globulin Ratio 1.2 0.9-2 Lipase 131 73-393 U/L Urine Color DK YELLOW Urine Appearance CLEAR CLEAR Urine pH 6.0 4.5-7.5 Urine Specific [place] 1.023 1.000-1.030 Urine Protein NEG NEG Urine Glucose (UA) TRACE NEG Urine Ketones NEG NEG Urine Occult Blood NEG NEG Urine Nitrite NEG NEG Urine Bilirubin NEG NEG Urine Urobilinogen NEG NEG Urine Leukocyte Esterase NEG NEG Urine Test NEG NEG Diagnostic Radiology CXR IMPRESSION: No active disease in the chest. CT ABD/PELVIS IMPRESSION: 1. No acute intra-abdominal or pelvic findings 2. Postsurgical changes of a gastric bypass 3. No evidence of bowel obstruction. No evidence of free air 4. No acute inflammatory changes there is minimal bladder distention. 5. Mild bladder distention unchanged the preceding study Impression Assessment and Plan URINARY RETENTION MILD PAULINO -Admit to [facility] -Patient presenting with severe lower abdominal pain and syncopal event; in the ED found to have significant urinary retention -Likely due to use of amitriptyline and Levsin -Noted that amitriptyline was recently increased as an outpatient approximately 3 weeks ago -Continue Ferrari for now -Start IVF for postobstructive diuresis -Mild PAULINO likely due to postobstructive uropathy -will decrease amitriptyline to previous dosing of 30 mg daily -Attempt voiding trial in 1-2 days SYNCOPE -Likely vasovagal due to urinary retention and/or orthostatic hypotension -Continue IVF -Monitor orthostatic blood pressures HYPOKALEMIA -Potassium replaced in ED -Check magnesium level -Follow potassium and magnesium HISTORY OF MIGRAINES -Decreasing amitriptyline as above -Continue propanolol and riboflavin HYPOTHYROIDISM -continue levothyroxine GERD -continue PPI DVT PROPHYLAXIS -SQ Lovenox DISPO -The patient will be placed as observation status for now until further work up is complete. ADDENDUM: I have seen and examined the patient and agree with the assessment and plan as above with following except. Patient has chronic migraines and has recently been increased from 30 mg of amitriptyline nightly to 50 mg nightly in the last 3 weeks. In addition she takes Phenergan at least once weekly for migraines as well as Levsin for IBS and she takes this twice daily. All of the above have anticholinergic side effects likely contributing to her acute urinary retention. Phenergan was given in the ER; would not continue with this medicine for nausea at this time. Zofran ordered instead.Would cont Ferrari for at least two days before attempting TOV based on half-life of amitriptyline. Would consider further taper of amitriptyline to lower than 30mg but would get good plan in place for migraine management with Neurology and would discuss taper with Psych. Of note, should be able to taper more quickly if needed than the standard two weeks as she is on Cymbalta. We discussed Botox as a possible outpatient treatment to help her get off these medications. She is planning to pursue this further with Pain Management as outpatient. Agree with cause of syncope and do not believe further workup is needed at this time. Casey, DO Resuscitation Status VTE Prophylaxis Will order VTE Prophylaxis: Yes
[2017-12-26] MEDS ORDERED: PATIENT'S HEIGHT AND/OR WEIGHT NEEDED SCH (20:15)
[2017-12-26 20:22] VITALS: BP 109/72; PULSE 67; TEMP 36.5; O2SAT 95
[2017-12-26] MEDS: PANTOprazole SOD 40 MG TAB PO SCH (21:03)
[2017-12-26] MEDS: AMITRIPTYLINE HCL 10 MG TAB PO SCH (21:03)
[2017-12-26] MEDS: POLYETHYLENE (MIRALAX) 17 GM PACK PO PRN (21:04)
[2017-12-26] MEDS: TRAZODONE HCL 100 MG TAB PO SCH (21:04)
[2017-12-26] MEDS: KETOROLAC TROMETHAMINE 15 MG/ML VIAL IV PRN (21:45)
[2017-12-26 23:07] VITALS: BP_SYST 87; BP_SYST 90; BP_SYST 91; BP_DIAS 48; BP_DIAS 51; BP_DIAS 60; PULSE 94; TEMP 36.4; O2SAT 91
[2017-12-27] MEDS ORDERED: NSS + 20MEQ KCL 1000ML 1,000 ML IV ONE (01:00)
[2017-12-27] MEDS: TRAMADOL HCL 50 MG TAB PO PRN (01:03)
[2017-12-27 01:19] LABS: BASO % 0.5 %; BASO ABS # 0.04 K/uL (0-0.2); EOS % 2.5 %; EOS ABS # 0.19 K/uL (0-0.5); HEMATOCRIT 31.4 % (37-47); HEMOGLOBIN 11.2 g/dL (12.0-16.0); IG# 0.01 K/uL (0.00-0.02); LYMPH % 46.1 %; LYMPH ABS # 3.44 K/uL (1.2-3.4); MEAN CELL VOLUME 86.5 fL (80-100); MEAN CORPUSCULAR HEMOGLOBIN 30.9 pg (25-34); MEAN CORPUSCULAR HGB CONC 35.7 g/dl (32-36); MEAN PLATELET VOLUME 8.8 fL (7.4-10.4); MONO % 9.8 %; MONO ABS # 0.73 K/uL (0.11-0.59); NEUT ABS # 3.05 K/uL (1.4-6.5); PLATELET COUNT 196 K/uL (130-400); RED CELL DISTRIBUTION WIDTH CV 14.2 % (11.5-14.5); RED CELL DISTRIBUTION WIDTH SD 44.8 fL (36.4-46.3); WHITE BLOOD COUNT 7.46 K/uL (4.8-10.8)
[2017-12-27 01:39] LABS: CALCIUM 7.9 mg/dl (8.5-10.1); CREATININE 0.93 mg/dl (0.60-1.20); POTASSIUM 3.7 mmol/L (3.5-5.1)
[2017-12-27] MEDS: ONDANSETRON INJ 2 MG/ML 2 ML VIAL IV PRN ×3 (05:47→17:08)
[2017-12-27] MEDS: LEVOTHYROXINE 25 MCG TAB PO SCH (05:48)
[2017-12-27] MEDS: KETOROLAC TROMETHAMINE 15 MG/ML VIAL IV PRN (07:12)
[2017-12-27 07:39] VITALS: BP_SYST 105; BP_SYST 109; BP_SYST 123; BP_DIAS 73; BP_DIAS 76; BP_DIAS 87; PULSE 63; PULSE 72; PULSE 73; TEMP 36.4; O2SAT 96
[2017-12-27] MEDS: PANTOprazole SOD 40 MG TAB PO SCH ×2 (08:08→20:39)
[2017-12-27] MEDS: MAGNESIUM OXIDE 400 MG TAB PO SCH (08:08)
[2017-12-27] MEDS: DULOXETINE HCL 60 MG CAP PO SCH (08:09)
[2017-12-27] MEDS: PROPRANOLOL HCL 60 MG LA CAP PO SCH (08:09)
[2017-12-27] MEDS: LACTOBACILLUS ACIDOPHILUS (FLORANEX) TAB PO SCH ×3 (08:09→17:04)
[2017-12-27] MEDS: ENOXAPARIN 40 MG/0.4 ML SYR SQ SCH (08:09)
[2017-12-27] MEDS ORDERED: NON-FORMULARY MEDICATION (Riboflavin (Vitamin B-2) 400 MG) PO SCH (09:00)
[2017-12-27] MEDS ORDERED: DiphenhydrAMINE INJ 25 MG in SYRINGE 0 ML IV ONE (09:30)
[2017-12-27] MEDS ORDERED: DiphenhydrAMINE HCL 50 MG/ML VIAL IV STA (09:38)
[2017-12-27] MEDS: MoRPHine SULFATE 4 MG/ML 1 ML CARP\\VIAL IV PRN ×3 (09:48→17:59)
--- NOTE | 2017-12-27 09:49 | Progress Note ---
Medicine Progress Note Date & Time of Visit: Dec 27, 2017 at 09:49. Subjective Notified by RN this patient is having generalized pruritus Patient seen at the bedside, sitting up, appears comfortable States she started to have generalized pruritus an hour earlier Denies tongue or lip swelling, shortness of breath Received Toradol and Zofran prior to experiencing pruritus Still having lower abdominal pain, tolerating Ferrari catheter Has mild headache typical of her migraine-which is chronic No other symptoms Objective Last 8 Hrs Date Time Temp Pulse Resp B/P (MAP) Pulse Ox O2 Delivery O2 Flow Rate FiO2 12/27/17 08:00 Room Air 12/27/17 07:39 36.4 72 18 123/87 (99) 96 Room Air 73 109/76 (87) 63 105/73 (84) Physical Exam: General-oriented 3, not in distress, speaking in sentences, no accessory muscle use Head- atraumatic Eyes- PERRL, EOMI, anicteric ENT- oropharynx clear Neck- supple, no JVD, no adenopathy, no thyromegaly Lungs- clear breath sounds bilaterally Heart- regular rhythm; no murmur, normal rate Abdomen- normal bowel sounds, soft, nondistended, mild tenderness on the lower quadrants Extremities- no pretibial edema, no calf tenderness; peripheral pulses intact Neuro- alert, oriented x 3; no gross focal neurologic deficits Skin- warm & dry, no rashes Laboratory Results: Last 24 Hours Test 12/26/17 15:00 12/26/17 18:30 12/27/17 01:07 White Blood Count 6.94 K/uL 7.46 K/uL Red Blood Count 4.59 M/uL 3.63 M/uL Hemoglobin 13.6 g/dL 11.2 g/dL Hematocrit 39.6 % 31.4 % Mean Corpuscular Volume 86.3 fL 86.5 fL Mean Corpuscular Hemoglobin 29.6 pg 30.9 pg Mean Corpuscular Hemoglobin Concent 34.3 g/dl 35.7 g/dl Platelet Count 277 K/uL 196 K/uL Mean Platelet Volume 9.1 fL 8.8 fL Neutrophils (%) (Auto) 44.4 % 41.0 % Lymphocytes (%) (Auto) 45.8 % 46.1 % Monocytes (%) (Auto) 6.2 % 9.8 % Eosinophils (%) (Auto) 2.9 % 2.5 % Basophils (%) (Auto) 0.6 % 0.5 % Neutrophils # (Auto) 3.08 K/uL 3.05 K/uL Lymphocytes # (Auto) 3.18 K/uL 3.44 K/uL Monocytes # (Auto) 0.43 K/uL 0.73 K/uL Eosinophils # (Auto) 0.20 K/uL 0.19 K/uL Basophils # (Auto) 0.04 K/uL 0.04 K/uL RDW Standard Deviation 44.2 fL 44.8 fL RDW Coefficient of Variation 14.3 % 14.2 % Immature Granulocyte % (Auto) 0.1 % 0.1 % Immature Granulocyte # (Auto) 0.01 K/uL 0.01 K/uL Prothrombin Time 10.0 SECONDS Prothromb Time International Ratio 1.0 Sodium Level 137 mmol/L 139 mmol/L Potassium Level 3.2 mmol/L 3.7 mmol/L Chloride Level 104 mmol/L 108 mmol/L Carbon Dioxide Level 24 mmol/L 27 mmol/L Anion Gap 10.0 mmol/L 4.0 mmol/L Blood Urea Nitrogen 19 mg/dl 16 mg/dl Creatinine 1.21 mg/dl 0.93 mg/dl Estimated GFR () 58.7 80.8 Estimated GFR (Non- 50.7 69.7 BUN/Creatinine Ratio 15.6 17.2 Random Glucose 187 mg/dl 78 mg/dl Calcium Level 9.1 mg/dl 7.9 mg/dl Magnesium Level 2.2 mg/dl 2.3 mg/dl Total Bilirubin 0.3 mg/dl Aspartate Amino Transf (AST/SGOT) 15 U/L Alanine Aminotransferase (ALT/SGPT) 23 U/L Alkaline Phosphatase 128 U/L Total Creatine Kinase 58 U/L Creatine Kinase MB 0.7 ng/ml Creatine Kinase MB Ratio 1.2 Troponin I < 0.015 ng/ml Total Protein 6.9 gm/dl Albumin 3.7 gm/dl Globulin 3.2 gm/dl Albumin/Globulin Ratio 1.2 Lipase 131 U/L Urine Color DK YELLOW Urine Appearance CLEAR Urine pH 6.0 Urine Specific [place] 1.023 Urine Protein NEG Urine Glucose (UA) TRACE Urine Ketones NEG Urine Occult Blood NEG Urine Nitrite NEG Urine Bilirubin NEG Urine Urobilinogen NEG Urine Leukocyte Esterase NEG Urine Test NEG Est Creatinine Clear Calc Drug Dose 78.1 ml/min Lactic Acid Level 1.3 mmol/L Assessment & Plan 52-year-old female with history of gastric bypass surgery, history of diabetes, migraine, depression, other problems noted below Presenting with abdominal pain and syncopal episode. ACUTE URINARY RETENTION MILD ACUTE KIDNEY INJURY -Admit to [facility] -Patient presenting with severe lower abdominal pain and syncopal event; in the ED found to have significant urinary retention -Likely due to use of amitriptyline and Levsin -Noted that amitriptyline was recently increased as an outpatient approximately 3 weeks ago Ferrari catheter has been placed Amitriptyline back to usual 30 mg daily Still has some lower quadrant pain Creatinine now improved Continue Ferrari catheter Urology consulted SYNCOPE -Likely vasovagal due to urinary retention and/or orthostatic hypotension -Continue IVF Orthostatic vitals negative GENERALIZED PRURITUS Plan medication review, complete drug may be Toradol Benadryl IV ordered Toradol discontinued Continue to monitor HISTORY OF MIGRAINES -Decreasing amitriptyline as above -Continue propanolol and riboflavin HYPOTHYROIDISM -continue levothyroxine GERD -continue PPI DVT PROPHYLAXIS -SQ Lovenox DISPO Pending Anticipate discharge to home when medically stable Current Inpatient Medications: Current Inpatient Medications Medications (Trade) Dose Ordered Sig/Monalisa Route Start Time Stop Time Status Last Admin Dose Admin Ioversol (Optiray 320) 125 ml UD PRN IV 12/26/17 15:15 12/30/17 15:14 Enoxaparin Sodium (Lovenox Inj) 40 mg DAILY SQ 12/27/17 09:00 01/26/18 08:59 12/27/17 08:09 40 MG Acetaminophen (Tylenol Tab) 650 mg Q4H PRN PO 12/26/17 19:00 01/25/18 18:59 12/26/17 23:30 650 MG Polyethylene (Miralax Powder Packet) 17 gm DAILY PRN PO 12/26/17 19:00 01/25/18 18:59 12/26/17 21:04 17 GM Ondansetron HCl (Zofran Inj) 4 mg Q6H PRN IV 12/26/17 19:00 01/25/18 18:59 12/27/17 05:47 4 MG Amitriptyline HCl (Elavil Tab) 30 mg HS PO 12/26/17 21:00 01/25/18 20:59 12/26/17 21:03 30 MG Duloxetine HCl (Cymbalta Cap) 60 mg DAILY PO 12/27/17 09:00 01/26/18 08:59 12/27/17 08:09 60 MG Levothyroxine Sodium (Synthroid Tab) 25 mcg DAILYBB PO 12/27/17 06:30 01/26/18 06:59 12/27/17 05:48 25 MCG Pantoprazole Sodium (Protonix Tab) 40 mg BID PO 12/26/17 21:00 01/25/18 20:59 12/27/17 08:08 40 MG Propranolol HCl (Inderal La Cap) 60 mg DAILY PO 12/27/17 09:00 01/26/18 08:59 12/27/17 08:09 60 MG Trazodone HCl (Desyrel Tab) 100 mg HS PO 12/26/17 21:00 01/25/18 20:59 12/26/17 21:04 100 MG Magnesium Oxide (Mag-Ox Tab) 400 mg DAILY PO 12/27/17 09:00 01/26/18 08:59 12/27/17 08:08 400 MG Lactobacillus Acidophilus (Floranex Tab) 1 tab TIDM PO 12/27/17 08:00 01/26/18 07:59 12/27/17 08:09 1 TAB Ketorolac Tromethamine (Toradol Inj) 15 mg Q6H PRN IV 12/26/17 19:15 12/31/17 19:14 12/27/17 07:12 15 MG Tramadol HCl (Ultram Tab) not relieved by tylenol @ Q6H PRN PO 12/27/17 01:00 01/26/18 00:59 12/27/17 01:03 50 MG Morphine Sulfate (MoRPHine SULFATE INJ) 4 mg Q4H PRN IV 12/27/17 09:30 01/10/18 09:29
[2017-12-27 11:33] VITALS: BP 105/69; PULSE 76; TEMP 36.3; O2SAT 94
[2017-12-27 15:17] VITALS: BP_SYST 101; BP_SYST 111; BP_SYST 97; BP_DIAS 62; BP_DIAS 65; BP_DIAS 69; PULSE 78; PULSE 80; PULSE 84; TEMP 36.6; O2SAT 96
--- NOTE | 2017-12-27 17:14 | Urology Consultation ---
History General Date of Service: Dec 27, 2017. Chief Complaint: urinary retention Primary Care Physician: Shell Pinon M.D. Pt seen a urologist before?: No History of Present Illness I am asked by Dr Peña to evaluate and treat patient for urinary retention. Patient passed out yesterday. She also had lower abdominal pain. She was brought to and no cause for syncope was found. She was noted to have a distended bladder on ct scan and had a rehman placed which drained a large amount. She reports to me today that draining the bladder DID NOT improve her lower abdominal pain. She still has it today. Her ct scan report notes that her bladder distention is chronic and has been noted on prior cts as well. Patient is a previous diabetic but her neuropathy is not severe. She has recently been taking levsin twice per day for IBS and had hr dose of amytriptyline increased. Imaging Imaging: CT Laboratory Results Past 24 Hours Test 12/26/17 18:30 12/27/17 01:07 Range/Units Urine Color DK YELLOW Urine Appearance CLEAR CLEAR Urine pH 6.0 4.5-7.5 Urine Specific [place] 1.023 1.000-1.030 Urine Protein NEG NEG Urine Glucose (UA) TRACE NEG Urine Ketones NEG NEG Urine Occult Blood NEG NEG Urine Nitrite NEG NEG Urine Bilirubin NEG NEG Urine Urobilinogen NEG NEG Urine Leukocyte Esterase NEG NEG Urine Test NEG NEG White Blood Count 7.46 4.8-10.8 K/uL Red Blood Count 3.63 4.2-5.4 M/uL Hemoglobin 11.2 12.0-16.0 g/dL Hematocrit 31.4 37-47 % Mean Corpuscular Volume 86.5 80-100 fL Mean Corpuscular Hemoglobin 30.9 25-34 pg Mean Corpuscular Hemoglobin Concent 35.7 32-36 g/dl Platelet Count 196 130-400 K/uL Mean Platelet Volume 8.8 7.4-10.4 fL Neutrophils (%) (Auto) 41.0 % Lymphocytes (%) (Auto) 46.1 % Monocytes (%) (Auto) 9.8 % Eosinophils (%) (Auto) 2.5 % Basophils (%) (Auto) 0.5 % Neutrophils # (Auto) 3.05 1.4-6.5 K/uL Lymphocytes # (Auto) 3.44 1.2-3.4 K/uL Monocytes # (Auto) 0.73 0.11-0.59 K/uL Eosinophils # (Auto) 0.19 0-0.5 K/uL Basophils # (Auto) 0.04 0-0.2 K/uL RDW Standard Deviation 44.8 36.4-46.3 fL RDW Coefficient of Variation 14.2 11.5-14.5 % Immature Granulocyte % (Auto) 0.1 % Immature Granulocyte # (Auto) 0.01 0.00-0.02 K/uL Sodium Level 139 136-145 mmol/L Potassium Level 3.7 3.5-5.1 mmol/L Chloride Level 108 98-107 mmol/L Carbon Dioxide Level 27 21-32 mmol/L Anion Gap 4.0 3-11 mmol/L Blood Urea Nitrogen 16 7-18 mg/dl Creatinine 0.93 0.60-1.20 mg/dl Est Creatinine Clear Calc Drug Dose 78.1 ml/min Estimated GFR () 80.8 Estimated GFR (Non- 69.7 BUN/Creatinine Ratio 17.2 10-20 Random Glucose 78 70-99 mg/dl Lactic Acid Level 1.3 0.4-2.0 mmol/L Calcium Level 7.9 8.5-10.1 mg/dl Magnesium Level 2.3 1.8-2.4 mg/dl Labs were reviewed and are within normal limits unless listed below. Labs are available in the chart and at [facility] Problem List Medical Problems: (1) Abdominal pain, suprapubic Status: Acute (2) Abdominal wall cellulitis Status: Acute (3) Abdominal wall hematoma Status: Acute (4) Arm pain, right Status: Acute (5) Bilateral leg edema Status: Acute (6) Cellulitis Status: Acute (7) Chest pain Status: Acute (8) Chest pain Status: Acute (9) Chronic anemia Status: Acute (10) Chronic diarrhea Status: Acute (11) Dehydration Status: Acute (12) Dental infection Status: Acute (13) Diarrhea Status: Acute (14) Dizziness Status: Acute (15) Facial cellulitis Status: Acute (16) Facial swelling Status: Acute (17) Generalized weakness Status: Acute (18) Generalized weakness Status: Acute (19) Hematemesis Status: Acute (20) Hypokalemia Status: Acute (21) Hypokalemia Status: Acute (22) Intractable abdominal pain Status: Acute (23) Left arm pain Status: Acute (24) Left leg pain Status: Acute (25) Lump in neck Status: Acute (26) Migraine Status: Acute (27) Nausea vomiting and diarrhea Status: Acute (28) Neurological symptoms Status: Acute (29) Pancreatitis Status: Acute (30) Pleuritic chest pain Status: Acute (31) Precordial chest pain Status: Acute (32) Pulmonary embolism Status: Acute (33) Shortness of breath Status: Acute (34) Shortness of breath Status: Acute (35) Substernal precordial chest pain Status: Acute (36) Symptoms involving urinary system Status: Acute (37) Syncope Status: Acute (38) Syncope Status: Acute (39) Thrombophlebitis arm Status: Acute (40) Thrush Status: Acute (41) Urinary retention Status: Acute (42) Urinary retention Status: Acute Past History depression, diabetes, hypertension, migraines Past Surgical History: gastric bypass, other Family History FHx: rheumatoid arthritis MOTHER GRANDMOTHER Social History Hx Tobacco Use In Past Year?: No Smoking: non-smoker Alcohol: never Marital status: Housing status: lives with family Immunizations History of Influenza Vaccine: Yes Influenza Vaccine Date: Jun 19, 2017 History of Tetanus Vaccine?: Yes Tetanus Immunization Date: Dec 01, 2015 History of Pneumococcal: Yes Pneumococcal Date: Jun 19, 2017 History of MDRO No Allergies Coded Allergies: Oxycodone (Verified Allergy, Intermediate, HIVES, 12/18/17) Vancomycin (Verified Adverse Reaction, Unknown, SEE TEXT. . ., 12/18/17) PT STARTED IV VANC TODAY FOR POSSIBLE OSTEOMYELITIS OF RIGHT FOOT. ALSO ON TIMENTIN 3.1G IV Q6H FROM 03/24/08. PHARM'KINETIC VANC CONSULT PATIENT ORDERED VANC 3G IV Q18H IN 560ML TOTAL VOLUME NSS (~5.3MG/ML). AFTER RECEIVING 136ML PT DEVELOPED BODY ITCHING (NO RASH/REDNESS). KAY TEJADA RN CONTACTED DR BANEGAS AND INSTRUCTED TO D/C VANC AND GIVE BENADRYL 50MG PO X1. 03/27/08 @ 1000: SPOKE WITH DR RUIZ: FEELS THIS IS AN INFUSION RELATED RXN BUT CLINICALLY PT IS DOING WORSE AND IS D/C TIMENTIN/VANC AND STARTING TYGACIL. IS THIS AN INFUSION RELATED RXN OR TRUE ALLERGY? I PUT CALL INTO DR BANEGAS TO FURTHER DISCUSS. NO CALL BACK OF TIME OF DOCUMENTATION. AJ Medications Home Medications: Home Meds and Scripts Medications Dose Route/Sig Max Daily Dose Days Date Category Dose Instructions Propranolol HCl ER (Propranolol HCl) 60 Mg Capcr 60 Mg PO DAILY 12/26/17 Reported Amitriptyline HCl 10 Mg Tab 40 Mg PO HS 12/26/17 Reported Trazodone HCl 100 Mg Tab 100 Mg PO HS 12/26/17 Reported Enbrel Mini (Etanercept) 50 Mg/Ml Inj 50 Mg INJ WK 12/26/17 Reported ADMINISTER EVERY SUNDAY Phenergan (Promethazine HCl) 25 Mg Tab 25 Mg PO Q8 PRN 12/18/17 Reported Probiotic (Probiotic Product) 1 Cap Cap 1 Cap PO TIDM 10/02/17 Reported Zofran Odt (Ondansetron HCl) 8 Mg Soltab 8 Mg SL Q8 PRN 10/02/17 Reported Cymbalta (Duloxetine Hcl) 60 Mg Cap 60 Mg PO DAILY 10/02/17 Reported Magnesium Oxide (Magnesium Oxide (Mg Supplement) 400 Mg Tab 400 Mg PO DAILY 10/02/17 Reported Vitamin B-2 (Riboflavin) 100 Mg Tab 400 Mg PO DAILY 05/30/17 Reported Vitamin D 80331 Unit (Ergocalciferol) 50,000 Unit Cap 50,000 Inter.unit PO 2XWK 02/21/17 Reported TAKE THIS MEDICATION EVERY SUNDAY AND SUNDAY Sumatriptan Succinate 50 Mg Tab 50 Mg PO UD PRN 01/04/17 Reported TAKE 1 TABLET AT ONSET OF HEADACHE MAY REPEAT IN 2 HOURS IF NEEDED.MAXIMUM OF 2 TABLETS IN 24 HOURS. Levsin (Hyoscyamine Sulfate) 0.125 Mg Tab 0.125 Mg PO TID PRN 09/03/16 Reported Ventolin Hfa (Albuterol) 200 Puffs/06508 Mcg Aers 2 Puffs INH QID PRN 06/27/16 Reported Levothyroxine Sodium 25 Mcg Tab 25 Mcg PO DAILY 12/08/15 Reported TAKE THIS MEDICATION AT LEAST 30 MINUTES BEFORE BREAKFAST OR ANY OTHER MEDICATIONS Pantoprazole Sodium (Pantoprazole) 40 Mg Tab 40 Mg PO BID 04/09/15 Reported Inpatient Medications: Current Inpatient Medications Medications (Trade) Dose Ordered Sig/Monalisa Route Start Time Stop Time Status Last Admin Dose Admin Ioversol (Optiray 320) 125 ml UD PRN IV 12/26/17 15:15 12/30/17 15:14 Enoxaparin Sodium (Lovenox Inj) 40 mg DAILY SQ 12/27/17 09:00 01/26/18 08:59 12/27/17 08:09 40 MG Acetaminophen (Tylenol Tab) 650 mg Q4H PRN PO 12/26/17 19:00 01/25/18 18:59 12/26/17 23:30 650 MG Polyethylene (Miralax Powder Packet) 17 gm DAILY PRN PO 12/26/17 19:00 01/25/18 18:59 12/26/17 21:04 17 GM Ondansetron HCl (Zofran Inj) 4 mg Q6H PRN IV 12/26/17 19:00 01/25/18 18:59 12/27/17 05:47 4 MG Amitriptyline HCl (Elavil Tab) 30 mg HS PO 12/26/17 21:00 01/25/18 20:59 12/26/17 21:03 30 MG Duloxetine HCl (Cymbalta Cap) 60 mg DAILY PO 12/27/17 09:00 01/26/18 08:59 12/27/17 08:09 60 MG Levothyroxine Sodium (Synthroid Tab) 25 mcg DAILYBB PO 12/27/17 06:30 01/26/18 06:59 12/27/17 05:48 25 MCG Pantoprazole Sodium (Protonix Tab) 40 mg BID PO 12/26/17 21:00 01/25/18 20:59 12/27/17 08:08 40 MG Propranolol HCl (Inderal La Cap) 60 mg DAILY PO 12/27/17 09:00 01/26/18 08:59 12/27/17 08:09 60 MG Trazodone HCl (Desyrel Tab) 100 mg HS PO 12/26/17 21:00 01/25/18 20:59 12/26/17 21:04 100 MG Magnesium Oxide (Mag-Ox Tab) 400 mg DAILY PO 12/27/17 09:00 01/26/18 08:59 12/27/17 08:08 400 MG Lactobacillus Acidophilus (Floranex Tab) 1 tab TIDM PO 12/27/17 08:00 01/26/18 07:59 12/27/17 11:48 1 TAB Ketorolac Tromethamine (Toradol Inj) 15 mg Q6H PRN IV 12/26/17 19:15 12/31/17 19:14 12/27/17 07:12 15 MG Tramadol HCl (Ultram Tab) not relieved by tylenol @ Q6H PRN PO 12/27/17 01:00 01/26/18 00:59 12/27/17 01:03 50 MG Morphine Sulfate (MoRPHine SULFATE INJ) 4 mg Q4H PRN IV 12/27/17 09:30 01/10/18 09:29 12/27/17 14:10 4 MG Review of Systems Review of Systems Constitutional: + frequent headaches, No fever, No chills Eyes: + blurred vision Neurological: + dizzy, + passing out, + numbness/tingling, No seizures Endocrine: + excessive thirst, + too cold, + tired/sluggish Gastrointestinal: + abdominal pain, + indigestion, + nausea, + diarrhea Cardiovascular: No chest pain, No palpitations Respiratory: No shortness of breath Musculoskeletal: + joint pain Female : + urinary retention Physical Exam Vital Signs: Vital Signs Past 12 Hours Date Time Temp Pulse Resp B/P (MAP) Pulse Ox O2 Delivery O2 Flow Rate FiO2 12/27/17 15:17 36.6 84 17 101/69 (80) 96 Room Air 78 97/62 (74) 80 111/65 (80) 12/27/17 11:33 36.3 76 17 105/69 (81) 94 Room Air 12/27/17 08:00 Room Air 12/27/17 07:39 36.4 72 18 123/87 (99) 96 Room Air 73 109/76 (87) 63 105/73 (84) Physical Exam: General Appearance: WD/WN, no apparent distress, + thin Eyes: bilateral eyes normal inspection ENT: hearing grossly normal Neck: no adenopathy, trachea midline Respiratory/Chest: no respiratory distress, no accessory muscle use Gastrointestinal: Abdomen: normal abdomen Bladder: normal bladder Renal: normal renal Hernia: absent hernia Liver: normal liver Genitourinary - Female: Urethral Meatus: normal urethral meatus, pertinent finding (rehman in place draining yellow urine) Extremities: normal inspection, no pedal edema, no calf tenderness Neurologic/Psychiatric: alert, normal mood/affect, oriented x 3 Skin: normal color, warm/dry, no rash Assessment & Plan Assessment & Plan urinary retention agree with stopping levsin and decreasing amitriptyline void trial Sunday am. if unable to void she should be taught self cath 3 x per day
[2017-12-27] MEDS ORDERED: NURSING VERBAL MED ORDER ONE (18:00)
[2017-12-27] MEDS: METOCLOPRAMIDE HCL INJ 5 MG/ML 2 ML VIAL IV. PRN (18:41)
[2017-12-27 19:04] VITALS: BP 105/68; PULSE 81; TEMP 37.1; O2SAT 92
[2017-12-27] MEDS: POLYETHYLENE (MIRALAX) 17 GM PACK PO PRN (20:38)
[2017-12-27] MEDS: TRAZODONE HCL 100 MG TAB PO SCH (20:38)
[2017-12-27] MEDS: AMITRIPTYLINE HCL 10 MG TAB PO SCH (20:38)
[2017-12-27 23:19] VITALS: BP_SYST 111; BP_SYST 117; BP_SYST 119; BP_DIAS 67; BP_DIAS 72; BP_DIAS 80; PULSE 95; TEMP 36.9; O2SAT 90
[2017-12-28] MEDS: MoRPHine SULFATE 4 MG/ML 1 ML CARP\\VIAL IV PRN ×2 (00:15→17:18)
[2017-12-28 04:08] VITALS: BP 115/72; PULSE 112; TEMP 37.7; O2SAT 91
[2017-12-28] MEDS ORDERED: NSS + 20MEQ KCL 1000ML 1,000 ML IV ONE (04:45)
[2017-12-28] MEDS ORDERED: ACETAMINOPHEN 325 MG TAB PO ONE (04:46)
[2017-12-28] MEDS ORDERED: SUMATRIPTAN SUCCINATE 50 MG TAB PO STA (04:52)
[2017-12-28] MEDS: LEVOTHYROXINE 25 MCG TAB PO SCH (05:20)
[2017-12-28 06:59] VITALS: BP_SYST 115; BP_SYST 116; BP_SYST 123; BP_DIAS 72; BP_DIAS 73; PULSE 91; TEMP 37; O2SAT 90
[2017-12-28] MEDS: LACTOBACILLUS ACIDOPHILUS (FLORANEX) TAB PO SCH ×3 (07:21→17:00)
[2017-12-28] MEDS: PANTOprazole SOD 40 MG TAB PO SCH ×2 (07:21→21:45)
[2017-12-28] MEDS: METOCLOPRAMIDE HCL INJ 5 MG/ML 2 ML VIAL IV. PRN ×2 (07:26→17:17)
[2017-12-28] MEDS: POLYETHYLENE (MIRALAX) 17 GM PACK PO PRN (07:26)
[2017-12-28] MEDS: TRAMADOL HCL 50 MG TAB PO PRN ×2 (07:28→15:33)
[2017-12-28] MEDS ORDERED: BISACODYL 10 MG SUPP PR PRN (07:30)
[2017-12-28] MEDS ORDERED: MAGNESIUM HYDROXIDE SUSP 30 ML UDC PO PRN (07:30)
[2017-12-28] MEDS: PROPRANOLOL HCL 60 MG LA CAP PO SCH ×2 (07:58→21:43)
[2017-12-28] MEDS: MAGNESIUM OXIDE 400 MG TAB PO SCH (07:58)
[2017-12-28] MEDS: DULOXETINE HCL 60 MG CAP PO SCH (07:58)
[2017-12-28] MEDS: DOCUSATE SODIUM/SENNA 50/8.6MG TAB PO SCH (08:28)
[2017-12-28] MEDS: ENOXAPARIN 40 MG/0.4 ML SYR SQ SCH (08:29)
[2017-12-28] MEDS ORDERED: SUMATRIPTAN SUCCINATE 50 MG TAB PO ONE (09:15)
[2017-12-28] MEDS: ONDANSETRON INJ 2 MG/ML 2 ML VIAL IV PRN ×2 (11:25→23:56)
[2017-12-28 15:37] VITALS: BP_SYST 105; BP_SYST 109; BP_SYST 89; BP_DIAS 61; BP_DIAS 69; BP_DIAS 75; PULSE 87; TEMP 36.7; O2SAT 91
[2017-12-28 16:00] VITALS: O2SAT 91
--- NOTE | 2017-12-28 16:44 | Progress Note ---
Subjective Date of Service: Dec 28, 2017. Subjective Pt evaluation today including: conversation w/ patient, chart review Voiding: no voiding problems Patient is delighted that her urination returned to normal. She is drinking water and voiding at regular intervals. Her stream is easy and strong. she feels like she empties. her LLQ pain is unchanged and mild. Problem List Medical Problems: (1) Abdominal pain, suprapubic Status: Acute (2) Abdominal wall cellulitis Status: Acute (3) Abdominal wall hematoma Status: Acute (4) Arm pain, right Status: Acute (5) Bilateral leg edema Status: Acute (6) Cellulitis Status: Acute (7) Chest pain Status: Acute (8) Chest pain Status: Acute (9) Chronic anemia Status: Acute (10) Chronic diarrhea Status: Acute (11) Dehydration Status: Acute (12) Dental infection Status: Acute (13) Diarrhea Status: Acute (14) Dizziness Status: Acute (15) Facial cellulitis Status: Acute (16) Facial swelling Status: Acute (17) Generalized weakness Status: Acute (18) Generalized weakness Status: Acute (19) Hematemesis Status: Acute (20) Hypokalemia Status: Acute (21) Hypokalemia Status: Acute (22) Intractable abdominal pain Status: Acute (23) Left arm pain Status: Acute (24) Left leg pain Status: Acute (25) Lump in neck Status: Acute (26) Migraine Status: Acute (27) Nausea vomiting and diarrhea Status: Acute (28) Neurological symptoms Status: Acute (29) Pancreatitis Status: Acute (30) Pleuritic chest pain Status: Acute (31) Precordial chest pain Status: Acute (32) Pulmonary embolism Status: Acute (33) Shortness of breath Status: Acute (34) Shortness of breath Status: Acute (35) Substernal precordial chest pain Status: Acute (36) Symptoms involving urinary system Status: Acute (37) Syncope Status: Acute (38) Syncope Status: Acute (39) Thrombophlebitis arm Status: Acute (40) Thrush Status: Acute (41) Urinary retention Status: Acute (42) Urinary retention Status: Acute Review of Systems Constitutional: No fever, No chills, No weight loss Respiratory: No cough Cardiac: No chest pain Female : No dysuria, No urinary frequency, No hematuria Objective Vital Signs Date Time Temp Pulse Resp B/P (MAP) Pulse Ox O2 Delivery O2 Flow Rate FiO2 12/28/17 15:37 36.7 87 20 105/69 (81) 91 Room Air 109/75 (86) 89/61 (70) 12/28/17 07:30 Room Air 12/28/17 06:59 37.0 91 18 115/73 (87) 90 Room Air 123/73 (90) 116/72 (87) 12/28/17 04:08 37.7 112 18 115/72 (86) 91 Room Air 12/28/17 00:00 Room Air 12/27/17 23:19 36.9 95 18 111/67 (82) 90 Room Air 117/72 (87) 119/80 (93) 12/27/17 19:04 37.1 81 18 105/68 (80) 92 Room Air 12/27/17 18:51 Room Air Physical Exam General Appearance: WD/WN, no apparent distress ENT: hearing grossly normal Respiratory/Chest: no accessory muscle use Neurologic/Psychiatric: alert, normal mood/affect, oriented x 3 Assessment and Plan Urinary retention likely from a combination of meds happily has resolved. rtc prn suggest she stay off levsin
[2017-12-28] MEDS ORDERED: LIDODERM (LIDOCAINE) PATCH 5% TD ONE (18:15)
[2017-12-28] MEDS ORDERED: CYCLOBENZAPRINE HCL 5 MG TAB PO PRN (18:15)
--- NOTE | 2017-12-28 18:50 | Progress Note ---
Medicine Progress Note Date & Time of Visit: Dec 28, 2017 at 18:45. Subjective seen resting in bed comfortable states she feels slightly improved today has some L flank pain, worse with movement voiding well (+) BM no other symptoms Objective Last 8 Hrs Date Time Temp Pulse Resp B/P (MAP) Pulse Ox O2 Delivery O2 Flow Rate FiO2 12/28/17 16:00 91 Room Air 12/28/17 15:37 36.7 87 20 105/69 (81) 91 Room Air 109/75 (86) 89/61 (70) Physical Exam: General-oriented 3, not in distress, speaking in sentences, no accessory muscle use Eyes- anicteric Neck- supple, no JVD Lungs- clear breath sounds bilaterally, no rales/wheezes Heart- regular rhythm; no murmur, normal rate Abdomen- normal bowel sounds, soft, nondistended, mild tenderness to palpation on the left flank region Extremities- no pretibial edema, no calf tenderness Neuro- alert, oriented x 3; no gross focal neurologic deficits Skin- warm & dry, no rashes Assessment & Plan 52-year-old female with history of gastric bypass surgery, history of diabetes, migraine, depression, other problems noted below Presenting with abdominal pain and syncopal episode. ACUTE URINARY RETENTION MILD ACUTE KIDNEY INJURY -[facility] -Patient presenting with severe lower abdominal pain and syncopal event; in the ED found to have significant urinary retention -Likely due to use of amitriptyline and Levsin -Noted that amitriptyline was recently increased as an outpatient approximately 3 weeks ago Ferrari catheter has been placed Amitriptyline back to usual 30 mg daily crea improved Ferrari discontinued trial of voiding today appreciate Dr. Avila' recommendations LEFT FLANK PAIN seems to be muscular pain trial of Lidoderm patch, Flexeril PRN monitor SYNCOPE -Likely vasovagal due to urinary retention and/or orthostatic hypotension -Continue IVF Orthostatic vitals negative GENERALIZED PRURITUS Plan medication review, complete drug may be Toradol Benadryl IV ordered Toradol discontinued resolved HISTORY OF MIGRAINES -Decreasing amitriptyline as above -Continue propanolol and riboflavin HYPOTHYROIDISM -continue levothyroxine GERD -continue PPI DVT PROPHYLAXIS -SQ Lovenox DISPO Pending Anticipate discharge to home when medically stable Current Inpatient Medications: Current Inpatient Medications Medications (Trade) Dose Ordered Sig/Monalisa Route Start Time Stop Time Status Last Admin Dose Admin Ioversol (Optiray 320) 125 ml UD PRN IV 12/26/17 15:15 12/30/17 15:14 Enoxaparin Sodium (Lovenox Inj) 40 mg DAILY SQ 12/27/17 09:00 01/26/18 08:59 12/28/17 08:29 40 MG Acetaminophen (Tylenol Tab) 650 mg Q4H PRN PO 12/26/17 19:00 01/25/18 18:59 12/26/17 23:30 650 MG Polyethylene (Miralax Powder Packet) 17 gm DAILY PRN PO 12/26/17 19:00 01/25/18 18:59 12/28/17 07:26 17 GM Ondansetron HCl (Zofran Inj) 4 mg Q6H PRN IV 12/26/17 19:00 01/25/18 18:59 12/28/17 11:25 4 MG Amitriptyline HCl (Elavil Tab) 30 mg HS PO 12/26/17 21:00 01/25/18 20:59 12/27/17 20:38 30 MG Duloxetine HCl (Cymbalta Cap) 60 mg DAILY PO 12/27/17 09:00 01/26/18 08:59 12/28/17 07:58 60 MG Levothyroxine Sodium (Synthroid Tab) 25 mcg DAILYBB PO 12/27/17 06:30 01/26/18 06:59 12/28/17 05:20 25 MCG Pantoprazole Sodium (Protonix Tab) 40 mg BID PO 12/26/17 21:00 01/25/18 20:59 12/28/17 07:21 40 MG Trazodone HCl (Desyrel Tab) 100 mg HS PO 12/26/17 21:00 01/25/18 20:59 12/27/17 20:38 100 MG Magnesium Oxide (Mag-Ox Tab) 400 mg DAILY PO 12/27/17 09:00 01/26/18 08:59 12/28/17 07:58 400 MG Lactobacillus Acidophilus (Floranex Tab) 1 tab TIDM PO 12/27/17 08:00 01/26/18 07:59 12/28/17 11:47 1 TAB Tramadol HCl (Ultram Tab) not relieved by tylenol @ Q6H PRN PO 12/27/17 01:00 01/26/18 00:59 12/28/17 15:33 50 MG Morphine Sulfate (MoRPHine SULFATE INJ) 4 mg Q4H PRN IV 12/27/17 09:30 01/10/18 09:29 12/28/17 17:18 4 MG Metoclopramide HCl (Reglan Inj) 10 mg Q6H PRN IV. 12/27/17 18:30 01/26/18 18:29 12/28/17 17:17 10 MG Senna/Docusate Sodium (Senokot S Tab) 1 tab QAM PO 12/28/17 09:00 01/27/18 08:59 12/28/17 08:28 1 TAB Magnesium Hydroxide (Milk Of Magnesia Susp) 30 ml Q6H PRN PO 12/28/17 07:30 01/27/18 07:29 Bisacodyl (Dulcolax Supp) 10 mg DAILY PRN NM 12/28/17 07:30 01/27/18 07:29 Propranolol HCl (Inderal La Cap) 60 mg HS PO 12/28/17 21:00 01/26/18 08:59 Promethazine HCl 12.5 mg/Sodium Chloride 50.5 ml @ 204 mls/hr Q6H PRN IV 12/28/17 18:15 01/27/18 18:14 Lidocaine (Lidoderm Patch 5%) 1 patch QAM TD 12/29/17 09:00 01/28/18 08:59 Miscellaneous (Remove Lidoderm Patch) 1 ea DAILY@21 N/A 12/28/17 21:00 01/27/18 20:59 Cyclobenzaprine HCl (Flexeril Tab) 5 mg BID PRN PO 12/28/17 18:15 01/27/18 18:14 Hydromorphone HCl (Dilaudid Inj) 0.5 mg Q6H PRN IV 12/28/17 18:15 01/11/18 18:14
[2017-12-28] MEDS: PROMETHAZINE HCL INJ 12.5 MG in SODIUM CHLORIDE 0.9% 50ML 50 ML IV PRN (19:18)
[2017-12-28] MEDS: HYDROmorphone INJ 0.5 MG/0.5 ML SYR IV PRN (19:23)
[2017-12-28] MEDS: AMITRIPTYLINE HCL 10 MG TAB PO SCH (21:42)
[2017-12-28] MEDS: TRAZODONE HCL 100 MG TAB PO SCH (21:43)
[2017-12-29] VITALS (7 sets, daily range): BP systolic 97–138; BP diastolic 59–96; PULSE 67–85; TEMP 36.5–36.7; O2SAT 92–98
[2017-12-29] MEDS: TRAMADOL HCL 50 MG TAB PO PRN (01:23)
[2017-12-29] MEDS: LEVOTHYROXINE 25 MCG TAB PO SCH (06:08)
[2017-12-29] MEDS: HYDROmorphone INJ 0.5 MG/0.5 ML SYR IV PRN ×3 (06:09→22:29)
[2017-12-29 06:20] LABS: HEMATOCRIT 33.7 % (37-47); HEMOGLOBIN 11.1 g/dL (12.0-16.0); MEAN CELL VOLUME 90.1 fL (80-100); MEAN CORPUSCULAR HEMOGLOBIN 29.7 pg (25-34); MEAN CORPUSCULAR HGB CONC 32.9 g/dl (32-36); MEAN PLATELET VOLUME 8.5 fL (7.4-10.4); PLATELET COUNT 198 K/uL (130-400); RED CELL DISTRIBUTION WIDTH CV 14.4 % (11.5-14.5); RED CELL DISTRIBUTION WIDTH SD 47.1 fL (36.4-46.3); WHITE BLOOD COUNT 5.87 K/uL (4.8-10.8)
[2017-12-29 06:48] LABS: CREATININE 0.99 mg/dl (0.60-1.20)
[2017-12-29] MEDS: MAGNESIUM OXIDE 400 MG TAB PO SCH (07:40)
[2017-12-29] MEDS: DULOXETINE HCL 60 MG CAP PO SCH (07:40)
[2017-12-29] MEDS: DOCUSATE SODIUM/SENNA 50/8.6MG TAB PO SCH (07:40)
[2017-12-29] MEDS: PANTOprazole SOD 40 MG TAB PO SCH ×2 (07:41→21:02)
[2017-12-29] MEDS: LACTOBACILLUS ACIDOPHILUS (FLORANEX) TAB PO SCH ×3 (07:41→16:22)
[2017-12-29] MEDS: ENOXAPARIN 40 MG/0.4 ML SYR SQ SCH (07:43)
[2017-12-29] MEDS: PROMETHAZINE HCL INJ 12.5 MG in SODIUM CHLORIDE 0.9% 50ML 50 ML IV PRN ×2 (07:44→22:33)
[2017-12-29] MEDS: LIDODERM (LIDOCAINE) PATCH 5% TD SCH (07:44)
[2017-12-29] MEDS ORDERED: SUMATRIPTAN SUCCINATE 50 MG TAB PO PRN (08:00)
--- NOTE | 2017-12-29 12:35 | DIAGNOSTIC IMAGING REPORT ---
CT SCAN OF THE ABDOMEN AND PELVIS WITHOUT IV CONTRAST CLINICAL HISTORY: Left lower quadrant abdominal pain. COMPARISON STUDY: Abdominal CT dated 12/26/2017. TECHNIQUE: CT scan of the abdomen and pelvis is performed from the lung bases to the proximal femora. Images are reviewed in the axial, sagittal, and coronal planes. IV contrast was not administered for this examination as per the referring clinician. Note that the examination was performed in significantly suboptimal fashion without oral and IV contrast. A dose lowering technique was utilized adhering to the principles of ALARA. CT DOSE: 1204.05 mGy.cm FINDINGS: Lung bases: The heart is normal in size and without pericardial effusion. The lung bases are clear noting bibasilar atelectasis. Liver: The unenhanced liver is normal in size, contour, and attenuation. There is no intrahepatic biliary ductal dilatation. Gallbladder: Surgically absent noting clips in the gallbladder fossa. Spleen: Normal in size and attenuation. There are calcified splenic granulomas. Pancreas: The unenhanced pancreas is atrophic and grossly unremarkable. Adrenal glands: Unremarkable. Kidneys: The unenhanced kidneys are atrophic and without hydronephrosis. There are no renal calculi identified. There is no evidence of contour deforming renal mass lesion. Abdominal vasculature: The abdominal aorta is normal in course and caliber. Stomach and bowel: Postoperative changes are consistent with a Neel-en-Y gastric bypass surgery. No bowel obstruction is seen. The appendix is not identified and reported surgically absent. Peritoneum: There is no intraperitoneal free air or abdominal ascites. A midline surgical scar is noted. Lymphadenopathy: None. Pelvic viscera: The bladder is normal as visualized. The uterus is surgically absent. No adnexal lesion is seen. Skeletal structures: The skeletal structures are osteopenic. Mild degenerative change is noted in the lumbosacral spine. No lytic or blastic lesions are seen. IMPRESSION: 1. Suboptimal examination without oral and IV contrast. 2. There are no acute infectious or inflammatory findings in the abdomen and pelvis, and there has been no significant change from study performed 3 days previously. 3. There are postoperative changes consistent with a Neel-en-Y gastric bypass surgery. No bowel obstruction is identified. 4. Additional findings as above. Electronically signed by: Zander Humphrey M.D. 12/29/2017 12:33 PM Dictated Date/Time: 12/29/2017 12:26 PM
[2017-12-29] MEDS: MoRPHine SULFATE 4 MG/ML 1 ML CARP\\VIAL IV PRN ×2 (12:36→19:56)
[2017-12-29] MEDS: METOCLOPRAMIDE HCL INJ 5 MG/ML 2 ML VIAL IV. PRN (12:36)
--- NOTE | 2017-12-29 13:33 | PROGRESS NOTE ---
DATE: 12/29/2017 CONSULTATION FOR: Tano Perry MD Gladis is 52 years old, is well known to myself and the neurology team at [facility]. She has longstanding headaches, but since April of 2017 has had essentially chronic daily headache syndrome that has been resistant to most medical trials. She is currently on a combination of Inderal, magnesium oxide, riboflavin and increasing doses of Elavil and apparently presented with abdominal pain and was found to be in urinary retention likely due to combination effects of her multiple anticholinergic medications, none the least which was Levsin. She has a history of depression, edema, GERD, diabetes, history of DVT, pulmonary emboli. She has iron deficiency anemia with migraine headache, psoriatic arthritis, sleep apnea. Surgically, she has had wisdom tooth extractions, carpal tunnel surgery, hysterectomy, appendectomy, cholecystectomy, gastric bypass and total knee replacement. CURRENT MEDICATIONS: Include amitriptyline 30 mg, Inderal, magnesium oxide, riboflavin 400 mg each. Again, in the past, she has not done well on Topamax and various other antimigraine drugs, but she does not recall ever having been on Depakote. Currently, she is having daily headaches and unfortunately receiving Imitrex on a daily basis which needs to be stopped as this is going to predispose to rebound. She is also on analgesics, which do not seem to be helping. Dr. Perry anticipates that she is going to be discharged tomorrow, but she has some abdominal pain today and went down for another CAT scan, results of which I am not certain as I am not reported but she at the bedside seems to be awake, alert. She is a consuming her lunch, does not seem to be in any distress and does not look to be in that much pain. Gross neurologic examination reveals normal cranial nerves, normal gross motor movements, normal reflexes, sensation and strength testing. Imaging studies in the past have been unremarkable and do not need repeated. At this point, I suspect her headaches are part of the chronic daily headache syndrome that began last April. Certainly with an acute medical illness and all of her other issues, this headache is not going to be improved until these are stabilized and she gets back home. She needs to be off the daily Imitrex and I told her about this and she seems to understand it. We are going to continue the current doses of her medications. I am going to add Depakote 250 mg ER to her regimen to be taken in the morning and I will see her back in the office scheduled on 01/16/2018. She was evaluated by the pain management group back in April, has had one outpatient visit, she was felt to possibly be a candidate for Botox but then no one ever got back to her or at least she tells me no one ever got back to her about whether her insurance would cover the injection nor did she pursue this. I think this needs to be aggressively pursued on an outpatient basis as this in my opinion is probably the only thing that is going to break up her cycle at this point. We have tried prednisone in the past and I see no reason to do that again particularly in the setting of acute or subacute medical illness with some GI upset. I will check back with her tomorrow unless she is discharged but for now, all I am going to do is recommend very judicious use of Imitrex and the addition of Depakote 250 mg ER and I have written orders for that. JULIANA
[2017-12-29] MEDS ORDERED: PIPERACILL/TAZOBAC CONSULT ACTIVE PRN (15:00)
[2017-12-29] MEDS ORDERED: PIPERACILL/TAZOBAC IV 3.375 GM in NSS 100 ML IV ONE (15:00)
[2017-12-29] MEDS: ONDANSETRON INJ 2 MG/ML 2 ML VIAL IV PRN (17:35)
--- NOTE | 2017-12-29 18:04 | Progress Note ---
Medicine Progress Note Date & Time of Visit: Dec 29, 2017 at 18:00. Subjective Seen resting in bed, was reporting migraine headache again this morning Still having some left lower quadrant pain, nausea Positive BMs Voiding with no problems No other symptoms Objective Last 8 Hrs Date Time Temp Pulse Resp B/P (MAP) Pulse Ox O2 Delivery O2 Flow Rate FiO2 12/29/17 16:27 79 118/74 (89) 82 117/72 (87) 81 119/72 (88) 12/29/17 16:00 Room Air 12/29/17 15:42 36.7 72 18 121/77 (92) 93 Room Air 12/29/17 11:21 36.7 70 18 101/66 (78) 94 Room Air 67 103/70 (81) 71 102/71 (81) Physical Exam: General-oriented 3, not in distress, speaking in sentences, no accessory muscle use Neck-no JVD Lungs- clear breath sounds bilaterally, no wheezing, no crackles Heart- regular rhythm; no murmur, normal rate Abdomen- normal bowel sounds, soft, nondistended, mild to moderate tenderness to palpation on the left flank region Extremities- no pretibial edema, no calf tenderness Neuro- alert, oriented x 3; no gross focal neurologic deficits Skin- warm & dry, no rashes Laboratory Results: Last 24 Hours Test 12/29/17 06:08 12/29/17 10:34 White Blood Count 5.87 K/uL Red Blood Count 3.74 M/uL Hemoglobin 11.1 g/dL Hematocrit 33.7 % Mean Corpuscular Volume 90.1 fL Mean Corpuscular Hemoglobin 29.7 pg Mean Corpuscular Hemoglobin Concent 32.9 g/dl RDW Standard Deviation 47.1 fL RDW Coefficient of Variation 14.4 % Platelet Count 198 K/uL Mean Platelet Volume 8.5 fL Creatinine 0.99 mg/dl Est Creatinine Clear Calc Drug Dose 73.3 ml/min Estimated GFR () 74.9 Estimated GFR (Non- 64.6 Urine Color YELLOW Urine Appearance CLEAR Urine pH 5.0 Urine Specific Otley 1.009 Urine Protein NEG Urine Glucose (UA) NEG Urine Ketones NEG Urine Occult Blood NEG Urine Nitrite NEG Urine Bilirubin NEG Urine Urobilinogen NEG Urine Leukocyte Esterase NEG Assessment & Plan 52-year-old female with history of gastric bypass surgery, history of diabetes, migraine, depression, other problems noted below Presenting with abdominal pain and syncopal episode. ACUTE URINARY RETENTION, resolved MILD ACUTE KIDNEY INJURY -Admit to [facility] -Patient presenting with severe lower abdominal pain and syncopal event; in the ED found to have significant urinary retention -Likely due to use of amitriptyline and Levsin -Noted that amitriptyline was recently increased as an outpatient approximately 3 weeks ago Ferrari catheter has been placed Amitriptyline back to usual 30 mg daily crea improved Urologist consulted Dr. Avila Now without any voiding problems appreciate Dr. Avila' recommendations LEFT FLANK PAIN Repeat CT of the abdomen and pelvis ordered: No acute process Clinically patient is showing signs of possible diverticulitis We will go ahead and start empiric IV Zosyn Monitor response SYNCOPE - Likely vasovagal due to urinary retention and/or orthostatic hypotension - Continue IVF Orthostatic vitals negative GENERALIZED PRURITUS Plan medication review, complete drug may be Toradol Benadryl IV ordered Toradol discontinued resolved HISTORY OF MIGRAINES -Decreasing amitriptyline as above -Continue propanolol and riboflavin Neurologist consulted Dr. Rowell Recommend Depakote daily Monitor response HYPOTHYROIDISM -continue levothyroxine GERD -continue PPI DVT PROPHYLAXIS -SQ Lovenox DISPO Pending Anticipate discharge to home when medically stable Current Inpatient Medications: Current Inpatient Medications Medications (Trade) Dose Ordered Sig/Monalisa Route Start Time Stop Time Status Last Admin Dose Admin Ioversol (Optiray 320) 125 ml UD PRN IV 12/26/17 15:15 12/30/17 15:14 Enoxaparin Sodium (Lovenox Inj) 40 mg DAILY SQ 12/27/17 09:00 01/26/18 08:59 12/29/17 07:43 40 MG Acetaminophen (Tylenol Tab) 650 mg Q4H PRN PO 12/26/17 19:00 01/25/18 18:59 12/26/17 23:30 650 MG Polyethylene (Miralax Powder Packet) 17 gm DAILY PRN PO 12/26/17 19:00 01/25/18 18:59 12/28/17 07:26 17 GM Ondansetron HCl (Zofran Inj) 4 mg Q6H PRN IV 12/26/17 19:00 01/25/18 18:59 12/29/17 17:35 4 MG Amitriptyline HCl (Elavil Tab) 30 mg HS PO 12/26/17 21:00 01/25/18 20:59 12/28/17 21:42 30 MG Duloxetine HCl (Cymbalta Cap) 60 mg DAILY PO 12/27/17 09:00 01/26/18 08:59 12/29/17 07:40 60 MG Levothyroxine Sodium (Synthroid Tab) 25 mcg DAILYBB PO 12/27/17 06:30 01/26/18 06:59 12/29/17 06:08 25 MCG Pantoprazole Sodium (Protonix Tab) 40 mg BID PO 12/26/17 21:00 01/25/18 20:59 12/29/17 07:41 40 MG Trazodone HCl (Desyrel Tab) 100 mg HS PO 12/26/17 21:00 01/25/18 20:59 12/28/17 21:43 100 MG Magnesium Oxide (Mag-Ox Tab) 400 mg DAILY PO 12/27/17 09:00 01/26/18 08:59 12/29/17 07:40 400 MG Lactobacillus Acidophilus (Floranex Tab) 1 tab TIDM PO 12/27/17 08:00 01/26/18 07:59 12/29/17 16:22 1 TAB Tramadol HCl (Ultram Tab) not relieved by tylenol @ Q6H PRN PO 12/27/17 01:00 01/26/18 00:59 12/29/17 01:23 50 MG Morphine Sulfate (MoRPHine SULFATE INJ) 4 mg Q4H PRN IV 12/27/17 09:30 01/10/18 09:29 12/29/17 12:36 4 MG Metoclopramide HCl (Reglan Inj) 10 mg Q6H PRN IV. 12/27/17 18:30 01/26/18 18:29 12/29/17 12:36 10 MG Senna/Docusate Sodium (Senokot S Tab) 1 tab QAM PO 12/28/17 09:00 01/27/18 08:59 12/29/17 07:40 1 TAB Magnesium Hydroxide (Milk Of Magnesia Susp) 30 ml Q6H PRN PO 12/28/17 07:30 01/27/18 07:29 Bisacodyl (Dulcolax Supp) 10 mg DAILY PRN [place] 12/28/17 07:30 01/27/18 07:29 Propranolol HCl (Inderal La Cap) 60 mg HS PO 12/28/17 21:00 01/26/18 08:59 12/28/17 21:43 60 MG Promethazine HCl 12.5 mg/Sodium Chloride 50.5 ml @ 204 mls/hr Q6H PRN IV 12/28/17 18:15 01/27/18 18:14 12/29/17 07:44 204 MLS/HR Lidocaine (Lidoderm Patch 5%) 1 patch QAM TD 12/29/17 09:00 01/28/18 08:59 12/29/17 07:44 1 PATCH Miscellaneous (Remove Lidoderm Patch) 1 ea DAILY@21 N/A 12/28/17 21:00 01/27/18 20:59 12/28/17 21:43 1 EA Cyclobenzaprine HCl (Flexeril Tab) 5 mg BID PRN PO 12/28/17 18:15 01/27/18 18:14 Hydromorphone HCl (Dilaudid Inj) 0.5 mg Q6H PRN IV 12/28/17 18:15 01/11/18 18:14 12/29/17 16:23 0.5 MG Sumatriptan Succinate (Imitrex Tab) 50 mg DAILY PRN PO 12/29/17 08:00 01/28/18 07:59 12/29/17 10:00 50 MG Divalproex Sodium (Depakote Extended Rel Tab) 250 mg HS PO 12/29/17 21:00 01/28/18 20:59 Miscellaneous Information (Consult) 1 ea UD PRN N/A 12/29/17 15:00 01/28/18 14:59 Piperacillin Sod/ Tazobactam Sod 3.375 gm/Sodium Chloride 115 ml @ 28.75 mls/ hr Q8H IV 12/29/17 21:00 01/08/18 20:59
[2017-12-29] MEDS ORDERED: DiphenhydrAMINE INJ 12.5 MG in SYRINGE 0 ML IV ONE (18:45)
[2017-12-29] MEDS: METRONIDAZOLE / NSS 500 MG in PREMIXED NSS 100 ML IV SCH (19:41)
[2017-12-29] MEDS: CIPROFLOXACIN / D5W 400 MG in PREMIXED IN D5W 200 ML IV SCH (20:59)
[2017-12-29] MEDS ORDERED: PIPERACILL/TAZOBAC IV 3.375 GM in NSS 100ML IV SCH (21:00)
[2017-12-29] MEDS: AMITRIPTYLINE HCL 10 MG TAB PO SCH (21:00)
[2017-12-29] MEDS: TRAZODONE HCL 100 MG TAB PO SCH (21:01)
[2017-12-29] MEDS: PROPRANOLOL HCL 60 MG LA CAP PO SCH (21:02)
[2017-12-29] MEDS: DIVALPROEX 250 MG EXTENDED REL TAB PO SCH (21:40)
[2017-12-30] VITALS (8 sets, daily range): BP systolic 72–113; BP diastolic 50–74; PULSE 69–96; TEMP 36.6–37.1; O2SAT 90–95
[2017-12-30] MEDS: LEVOTHYROXINE 25 MCG TAB PO SCH (06:21)
[2017-12-30] MEDS: METRONIDAZOLE / NSS 500 MG in PREMIXED NSS 100 ML IV SCH ×3 (06:21→23:44)
[2017-12-30] MEDS: ONDANSETRON INJ 2 MG/ML 2 ML VIAL IV PRN ×3 (06:37→19:56)
[2017-12-30] MEDS: MoRPHine SULFATE 4 MG/ML 1 ML CARP\\VIAL IV PRN ×3 (06:37→19:56)
[2017-12-30 07:02] LABS: BASO % 0.5 %; BASO ABS # 0.03 K/uL (0-0.2); EOS % 5.1 %; EOS ABS # 0.31 K/uL (0-0.5); HEMATOCRIT 33.7 % (37-47); HEMOGLOBIN 11.1 g/dL (12.0-16.0); IG# 0.02 K/uL (0.00-0.02); LYMPH % 35.5 %; LYMPH ABS # 2.14 K/uL (1.2-3.4); MEAN CELL VOLUME 89.6 fL (80-100); MEAN CORPUSCULAR HEMOGLOBIN 29.5 pg (25-34); MEAN CORPUSCULAR HGB CONC 32.9 g/dl (32-36); MEAN PLATELET VOLUME 8.9 fL (7.4-10.4); MONO % 10.5 %; MONO ABS # 0.63 K/uL (0.11-0.59); NEUT % 48.1 %; NEUT ABS # 2.89 K/uL (1.4-6.5); PLATELET COUNT 216 K/uL (130-400); RED CELL DISTRIBUTION WIDTH CV 14.1 % (11.5-14.5); RED CELL DISTRIBUTION WIDTH SD 46.3 fL (36.4-46.3); WHITE BLOOD COUNT 6.02 K/uL (4.8-10.8)
[2017-12-30 07:31] LABS: CALCIUM 8.6 mg/dl (8.5-10.1); CREATININE 1.04 mg/dl (0.60-1.20); POTASSIUM 4.8 mmol/L (3.5-5.1)
[2017-12-30] MEDS: CIPROFLOXACIN / D5W 400 MG in PREMIXED IN D5W 200 ML IV SCH ×2 (08:11→21:30)
[2017-12-30] MEDS: DULOXETINE HCL 60 MG CAP PO SCH (08:12)
[2017-12-30] MEDS: LIDODERM (LIDOCAINE) PATCH 5% TD SCH (08:12)
[2017-12-30] MEDS: ENOXAPARIN 40 MG/0.4 ML SYR SQ SCH (08:12)
[2017-12-30] MEDS: LACTOBACILLUS ACIDOPHILUS (FLORANEX) TAB PO SCH ×3 (08:13→17:12)
[2017-12-30] MEDS: DOCUSATE SODIUM/SENNA 50/8.6MG TAB PO SCH (08:13)
[2017-12-30] MEDS: MAGNESIUM OXIDE 400 MG TAB PO SCH (08:13)
[2017-12-30] MEDS: PANTOprazole SOD 40 MG TAB PO SCH ×2 (08:13→21:36)
--- NOTE | 2017-12-30 11:49 | PROGRESS NOTE ---
DATE: 12/30/2017 Gladis looks about the same today. Apparently her CT scan showed evidence for diverticulitis and she is now on antibiotics. Certainly a toxic condition such as this would increase her headaches and I suspect it is going to be very difficult to treat them with other than analgesics at this point. I am going to continue with the Depakote but do not suspect it is going to add much at least for the next several weeks if it does at all as this woman has been locked into a chronic daily headache syndrome for nearly 9 months now. Since she will be in the hospital, I am going to place a consultation with pain management group to see if they would be willing to reassess her on an outpatient basis and address whether or not she is a Botox candidate. She apparently saw them in April and then seemingly "slipped through the cracks" and did not receive any followup. At this point in terms of her headache management I think the next option would be -instead of additional medications which to date have not worked-injection therapy . Hopefully, her insurance will be willing to cover this. I will check back with her tomorrow. JULIANA
--- NOTE | 2017-12-30 14:42 | Progress Note ---
Medicine Progress Note Date & Time of Visit: Dec 30, 2017 at 14:31. Subjective seen sitting up in bed, not in distress, was speaking on her cellphone states LLQ pain is somewhat improved, less nausea, tolerating diet well headache improved compared to yesterday pruritus has resolved no chest pain, dyspnea, dizziness, palpitations Objective Last 8 Hrs Date Time Temp Pulse Resp B/P (MAP) Pulse Ox O2 Delivery O2 Flow Rate FiO2 12/30/17 13:03 36.6 79 20 113/70 (84) 92 Room Air 12/30/17 08:41 75 18 106/65 (79) 95 74 102/65 (77) 81 94/65 (75) 12/30/17 08:00 Room Air 12/30/17 07:17 37.1 71 18 108/74 (85) 90 Room Air Physical Exam: General-oriented 3, not in distress, speaking in sentences, no accessory muscle use Neck-no JVD Lungs- clear BS bilaterally Heart- regular rhythm; no murmur, normal rate Abdomen- normal bowel sounds, soft, nondistended, mild tenderness on the left upper and lower quadrant Extremities- no pretibial edema, no calf tenderness Neuro- alert, oriented x 3; no gross focal neurologic deficits Skin- warm & dry, no rashes Laboratory Results: Last 24 Hours Test 12/30/17 06:46 White Blood Count 6.02 K/uL Red Blood Count 3.76 M/uL Hemoglobin 11.1 g/dL Hematocrit 33.7 % Mean Corpuscular Volume 89.6 fL Mean Corpuscular Hemoglobin 29.5 pg Mean Corpuscular Hemoglobin Concent 32.9 g/dl Platelet Count 216 K/uL Mean Platelet Volume 8.9 fL Neutrophils (%) (Auto) 48.1 % Lymphocytes (%) (Auto) 35.5 % Monocytes (%) (Auto) 10.5 % Eosinophils (%) (Auto) 5.1 % Basophils (%) (Auto) 0.5 % Neutrophils # (Auto) 2.89 K/uL Lymphocytes # (Auto) 2.14 K/uL Monocytes # (Auto) 0.63 K/uL Eosinophils # (Auto) 0.31 K/uL Basophils # (Auto) 0.03 K/uL RDW Standard Deviation 46.3 fL RDW Coefficient of Variation 14.1 % Immature Granulocyte % (Auto) 0.3 % Immature Granulocyte # (Auto) 0.02 K/uL Sodium Level 138 mmol/L Potassium Level 4.8 mmol/L Chloride Level 106 mmol/L Carbon Dioxide Level 29 mmol/L Anion Gap 3.0 mmol/L Blood Urea Nitrogen 15 mg/dl Creatinine 1.04 mg/dl Est Creatinine Clear Calc Drug Dose 69.8 ml/min Estimated GFR () 70.5 Estimated GFR (Non- 60.9 BUN/Creatinine Ratio 14.5 Random Glucose 97 mg/dl Calcium Level 8.6 mg/dl Assessment & Plan 52-year-old female with history of gastric bypass surgery, history of diabetes, migraine, depression, other problems noted below Presenting with abdominal pain and syncopal episode. ACUTE URINARY RETENTION, Resolved MILD ACUTE KIDNEY INJURY -Patient presenting with severe lower abdominal pain and syncopal event; in the ED found to have significant urinary retention -Likely due to use of amitriptyline and Levsin -Noted that amitriptyline was recently increased as an outpatient approximately 3 weeks ago Ferrari catheter has been placed Amitriptyline back to usual 30 mg daily crea improved Urologist consulted Dr. Avila Now without any voiding problems appreciate Dr. Avila' recommendations LEFT FLANK PAIN, POSSIBLE DIVERTICULITIS Repeat CT of the abdomen and pelvis ordered: No acute process Clinically patient is showing signs of possible diverticulitis Day 2 Cipro and Flagyl (zosyn discontinued as patient had pruritus) -- abdominal pain improving SYNCOPE - Likely vasovagal due to urinary retention and/or orthostatic hypotension - Continue IVF Orthostatic vitals negative GENERALIZED PRURITUS Plan medication review, complete drug may be Toradol Benadryl IV ordered Toradol discontinued resolved HISTORY OF MIGRAINES -Decreasing amitriptyline as above -Continue propanolol and riboflavin Neurologist consulted Dr. Rowell started Depakote daily -- pain management consulted HYPOTHYROIDISM -continue levothyroxine GERD -continue PPI DVT PROPHYLAXIS -SQ Lovenox DISPO Pending Anticipate discharge to home when medically stable Current Inpatient Medications: Current Inpatient Medications Medications (Trade) Dose Ordered Sig/Monalisa Route Start Time Stop Time Status Last Admin Dose Admin Ioversol (Optiray 320) 125 ml UD PRN IV 12/26/17 15:15 12/30/17 15:14 Enoxaparin Sodium (Lovenox Inj) 40 mg DAILY SQ 12/27/17 09:00 01/26/18 08:59 12/30/17 08:12 40 MG Acetaminophen (Tylenol Tab) 650 mg Q4H PRN PO 12/26/17 19:00 01/25/18 18:59 12/26/17 23:30 650 MG Polyethylene (Miralax Powder Packet) 17 gm DAILY PRN PO 12/26/17 19:00 01/25/18 18:59 12/28/17 07:26 17 GM Ondansetron HCl (Zofran Inj) 4 mg Q6H PRN IV 12/26/17 19:00 01/25/18 18:59 12/30/17 11:30 4 MG Amitriptyline HCl (Elavil Tab) 30 mg HS PO 12/26/17 21:00 01/25/18 20:59 12/29/17 21:00 30 MG Duloxetine HCl (Cymbalta Cap) 60 mg DAILY PO 12/27/17 09:00 01/26/18 08:59 12/30/17 08:12 60 MG Levothyroxine Sodium (Synthroid Tab) 25 mcg DAILYBB PO 12/27/17 06:30 01/26/18 06:59 12/30/17 06:21 25 MCG Pantoprazole Sodium (Protonix Tab) 40 mg BID PO 12/26/17 21:00 01/25/18 20:59 12/30/17 08:13 40 MG Trazodone HCl (Desyrel Tab) 100 mg HS PO 12/26/17 21:00 01/25/18 20:59 12/29/17 21:01 100 MG Magnesium Oxide (Mag-Ox Tab) 400 mg DAILY PO 12/27/17 09:00 01/26/18 08:59 12/30/17 08:13 400 MG Lactobacillus Acidophilus (Floranex Tab) 1 tab TIDM PO 12/27/17 08:00 01/26/18 07:59 12/30/17 11:25 1 TAB Tramadol HCl (Ultram Tab) not relieved by tylenol @ Q6H PRN PO 12/27/17 01:00 01/26/18 00:59 12/29/17 01:23 50 MG Morphine Sulfate (MoRPHine SULFATE INJ) 4 mg Q4H PRN IV 12/27/17 09:30 01/10/18 09:29 12/30/17 11:30 4 MG Metoclopramide HCl (Reglan Inj) 10 mg Q6H PRN IV. 12/27/17 18:30 01/26/18 18:29 12/29/17 12:36 10 MG Senna/Docusate Sodium (Senokot S Tab) 1 tab QAM PO 12/28/17 09:00 01/27/18 08:59 12/30/17 08:13 1 TAB Magnesium Hydroxide (Milk Of Magnesia Susp) 30 ml Q6H PRN PO 12/28/17 07:30 01/27/18 07:29 Bisacodyl (Dulcolax Supp) 10 mg DAILY PRN [place] 12/28/17 07:30 01/27/18 07:29 Propranolol HCl (Inderal La Cap) 60 mg HS PO 12/28/17 21:00 01/26/18 08:59 12/29/17 21:02 60 MG Promethazine HCl 12.5 mg/Sodium Chloride 50.5 ml @ 204 mls/hr Q6H PRN IV 12/28/17 18:15 01/27/18 18:14 12/29/17 22:33 204 MLS/HR Lidocaine (Lidoderm Patch 5%) 1 patch QAM TD 12/29/17 09:00 01/28/18 08:59 12/30/17 08:12 1 PATCH Miscellaneous (Remove Lidoderm Patch) 1 ea DAILY@21 N/A 12/28/17 21:00 01/27/18 20:59 12/29/17 21:40 1 EA Cyclobenzaprine HCl (Flexeril Tab) 5 mg BID PRN PO 12/28/17 18:15 01/27/18 18:14 Hydromorphone HCl (Dilaudid Inj) 0.5 mg Q6H PRN IV 12/28/17 18:15 01/11/18 18:14 12/29/17 22:29 0.5 MG Divalproex Sodium (Depakote Extended Rel Tab) 250 mg HS PO 12/29/17 21:00 01/28/18 20:59 12/29/17 21:40 250 MG Ciprofloxacin/ Dextrose 400 mg/ Prmx 200 ml @ 100 mls/hr Q12 IV 12/29/17 21:00 01/08/18 20:59 12/30/17 08:11 100 MLS/HR Metronidazole 500 mg/Prmx 100 ml @ 100 mls/hr Q8 IV 12/29/17 19:00 01/08/18 18:59 12/30/17 13:21 100 MLS/HR
[2017-12-30] MEDS: TRAZODONE HCL 100 MG TAB PO SCH (21:34)
[2017-12-30] MEDS: PROPRANOLOL HCL 60 MG LA CAP PO SCH (21:35)
[2017-12-30] MEDS: AMITRIPTYLINE HCL 10 MG TAB PO SCH (21:35)
[2017-12-30] MEDS: DIVALPROEX 250 MG EXTENDED REL TAB PO SCH (21:36)
[2017-12-30] MEDS: PROMETHAZINE HCL INJ 12.5 MG in SODIUM CHLORIDE 0.9% 50ML 50 ML IV PRN (22:48)
[2017-12-30] MEDS: HYDROmorphone INJ 0.5 MG/0.5 ML SYR IV PRN (22:49)
[2017-12-31] MEDS: LEVOTHYROXINE 25 MCG TAB PO SCH (05:58)
[2017-12-31] MEDS: METRONIDAZOLE / NSS 500 MG in PREMIXED NSS 100 ML IV SCH ×3 (05:58→23:49)
[2017-12-31 07:09] LABS: BASO % 0.6 %; BASO ABS # 0.03 K/uL (0-0.2); EOS % 5.1 %; EOS ABS # 0.26 K/uL (0-0.5); HEMOGLOBIN 10.8 g/dL (12.0-16.0); IG# 0.01 K/uL (0.00-0.02); LYMPH % 41.7 %; LYMPH ABS # 2.13 K/uL (1.2-3.4); MEAN CELL VOLUME 89.4 fL (80-100); MEAN CORPUSCULAR HEMOGLOBIN 30.2 pg (25-34); MEAN CORPUSCULAR HGB CONC 33.8 g/dl (32-36); MEAN PLATELET VOLUME 8.9 fL (7.4-10.4); MONO % 11.9 %; MONO ABS # 0.61 K/uL (0.11-0.59); NEUT % 40.5 %; NEUT ABS # 2.07 K/uL (1.4-6.5); PLATELET COUNT 209 K/uL (130-400); RED CELL DISTRIBUTION WIDTH CV 14.1 % (11.5-14.5); RED CELL DISTRIBUTION WIDTH SD 45.8 fL (36.4-46.3); WHITE BLOOD COUNT 5.11 K/uL (4.8-10.8)
[2017-12-31 07:23] VITALS: BP 104/71; PULSE 67; TEMP 36.6; O2SAT 95
[2017-12-31 07:36] VITALS: BP_SYST 107; BP_SYST 108; BP_SYST 115; BP_DIAS 70; BP_DIAS 73; BP_DIAS 74; PULSE 67; PULSE 69; PULSE 88
[2017-12-31 07:41] LABS: CALCIUM 8.5 mg/dl (8.5-10.1); CREATININE 0.98 mg/dl (0.60-1.20); POTASSIUM 4.7 mmol/L (3.5-5.1)
[2017-12-31] MEDS: DOCUSATE SODIUM/SENNA 50/8.6MG TAB PO SCH (07:41)
[2017-12-31] MEDS: DULOXETINE HCL 60 MG CAP PO SCH (07:41)
[2017-12-31] MEDS: MAGNESIUM OXIDE 400 MG TAB PO SCH (07:41)
[2017-12-31] MEDS: PANTOprazole SOD 40 MG TAB PO SCH ×2 (07:41→20:25)
[2017-12-31] MEDS: LIDODERM (LIDOCAINE) PATCH 5% TD SCH (07:42)
[2017-12-31] MEDS: LACTOBACILLUS ACIDOPHILUS (FLORANEX) TAB PO SCH ×3 (07:42→16:44)
[2017-12-31] MEDS: ENOXAPARIN 40 MG/0.4 ML SYR SQ SCH (07:44)
[2017-12-31] MEDS: CIPROFLOXACIN / D5W 400 MG in PREMIXED IN D5W 200 ML IV SCH ×2 (07:44→20:25)
[2017-12-31] MEDS: MoRPHine SULFATE 4 MG/ML 1 ML CARP\\VIAL IV PRN ×2 (07:48→16:44)
--- NOTE | 2017-12-31 09:30 | Pain Management Consultation ---
Pain Management Consultation Date of Consultation Dec 31, 2017. Reason for Consultation migraines History Mrs. Link is a 52-year-old white female that has previously been seen in consultation at the [facility] on 05/09/17 and as an outpatient in June 2017 for intractable migraine headaches. Patient received a bilateral greater and lesser occipital nerve block on 05/09/17 which the patient states was not effective. In June 2017 she was deemed a candidate for migraine Botox but wished to research Botox further prior to undergoing the procedure. She was told to call the office to schedule follow- up if she wanted to pursue Botox but we never heard from the patient. She continues to describe her migraines as constant sharp, stabbing sensation which is located along the right occipital region and radiates to the right periorbital region. Pain is rated 6/10 at its best and 10/10 at its worst. She reports associated photophobia and phonophobia. Sitting in a quiet dark room does help alleviate the pain. Migraine headache occurs daily and typically last 6-8 hours. She denies any known cause as to why her migraine headaches have significantly worsened. The patient has seen neurology in consultation and has tried a multitude of medications including Decadron, Toradol, Tramadol, Amitriptyline, Maxalt, Imitrex, Fioricet, Topamax, Nucynta, Tylenol, and Ibuprofen. Patient rates her pain an 7/10 currently. She does report associated nausea, vomiting, photosensitivity, photosensitivity, and neck pain. No vision changes or extremity weakness, fever, chills, night sweats , bowel or bladder incontinence, seizure type activity. Past Medical/Surgical History (1) Urinary retention (2) GERD (gastroesophageal reflux disease) (3) Edema (4) Depression (5) Sleep apnea (6) MINI (iron deficiency anemia) (7) Migraine headache (8) History of pulmonary embolism (9) History diabetes mellitus (10) History of DVT (deep vein thrombosis) (11) Psoriatic arthritis (12) Clostridium difficile colitis (13) Status post appendectomy (14) Status post cholecystectomy (15) Status post gastric bypass for obesity (16) Status post total knee replacement (17) H/O wisdom tooth extraction (18) History of carpal tunnel surgery (19) S/P hysterectomy Family History FHx: rheumatoid arthritis MOTHER GRANDMOTHER Social / Work History Smokeless Tobacco Use: No Alcohol Use: none Drug Use: none Marital Status: Housing Status: lives with family Occupation: unemployed unemployed (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 ) Allergies Coded Allergies: Oxycodone (Verified Allergy, Intermediate, HIVES, 12/18/17) Piperacillin (Verified Allergy, Intermediate, Pruritus, 12/29/17) Tazobactam (Verified Allergy, Intermediate, Pruritus, 12/29/17) Ketorolac Tromethamine (Verified Allergy, Mild, Itching, 12/27/17) Medications Current Inpatient Medications Medications (Trade) Dose Ordered Sig/Monalisa Route Start Time Stop Time Status Last Admin Dose Admin Enoxaparin Sodium (Lovenox Inj) 40 mg DAILY SQ 12/27/17 09:00 01/26/18 08:59 12/31/17 07:44 40 MG Acetaminophen (Tylenol Tab) 650 mg Q4H PRN PO 12/26/17 19:00 01/25/18 18:59 12/26/17 23:30 650 MG Polyethylene (Miralax Powder Packet) 17 gm DAILY PRN PO 12/26/17 19:00 01/25/18 18:59 12/28/17 07:26 17 GM Ondansetron HCl (Zofran Inj) 4 mg Q6H PRN IV 12/26/17 19:00 01/25/18 18:59 12/30/17 19:56 4 MG Amitriptyline HCl (Elavil Tab) 30 mg HS PO 12/26/17 21:00 01/25/18 20:59 12/30/17 21:35 30 MG Duloxetine HCl (Cymbalta Cap) 60 mg DAILY PO 12/27/17 09:00 01/26/18 08:59 12/31/17 07:41 60 MG Levothyroxine Sodium (Synthroid Tab) 25 mcg DAILYBB PO 12/27/17 06:30 01/26/18 06:59 12/31/17 05:58 25 MCG Pantoprazole Sodium (Protonix Tab) 40 mg BID PO 12/26/17 21:00 01/25/18 20:59 12/31/17 07:41 40 MG Trazodone HCl (Desyrel Tab) 100 mg HS PO 12/26/17 21:00 01/25/18 20:59 12/30/17 21:34 100 MG Magnesium Oxide (Mag-Ox Tab) 400 mg DAILY PO 12/27/17 09:00 01/26/18 08:59 12/31/17 07:41 400 MG Lactobacillus Acidophilus (Floranex Tab) 1 tab TIDM PO 12/27/17 08:00 01/26/18 07:59 12/31/17 07:42 1 TAB Tramadol HCl (Ultram Tab) not relieved by tylenol @ Q6H PRN PO 12/27/17 01:00 01/26/18 00:59 12/29/17 01:23 50 MG Morphine Sulfate (MoRPHine SULFATE INJ) 4 mg Q4H PRN IV 12/27/17 09:30 01/10/18 09:29 12/31/17 07:48 4 MG Metoclopramide HCl (Reglan Inj) 10 mg Q6H PRN IV. 12/27/17 18:30 01/26/18 18:29 12/29/17 12:36 10 MG Senna/Docusate Sodium (Senokot S Tab) 1 tab QAM PO 12/28/17 09:00 01/27/18 08:59 12/31/17 07:41 1 TAB Magnesium Hydroxide (Milk Of Magnesia Susp) 30 ml Q6H PRN PO 12/28/17 07:30 01/27/18 07:29 Bisacodyl (Dulcolax Supp) 10 mg DAILY PRN OR 12/28/17 07:30 01/27/18 07:29 Propranolol HCl (Inderal La Cap) 60 mg HS PO 12/28/17 21:00 01/26/18 08:59 12/30/17 21:35 60 MG Promethazine HCl 12.5 mg/Sodium Chloride 50.5 ml @ 204 mls/hr Q6H PRN IV 12/28/17 18:15 01/27/18 18:14 12/30/17 22:48 204 MLS/HR Lidocaine (Lidoderm Patch 5%) 1 patch QAM TD 12/29/17 09:00 01/28/18 08:59 12/31/17 07:42 1 PATCH Miscellaneous (Remove Lidoderm Patch) 1 ea DAILY@21 N/A 12/28/17 21:00 01/27/18 20:59 12/30/17 21:36 1 EA Cyclobenzaprine HCl (Flexeril Tab) 5 mg BID PRN PO 12/28/17 18:15 01/27/18 18:14 Hydromorphone HCl (Dilaudid Inj) 0.5 mg Q6H PRN IV 12/28/17 18:15 01/11/18 18:14 12/30/17 22:49 0.5 MG Divalproex Sodium (Depakote Extended Rel Tab) 250 mg HS PO 12/29/17 21:00 01/28/18 20:59 12/30/17 21:36 250 MG Ciprofloxacin/ Dextrose 400 mg/ Prmx 200 ml @ 100 mls/hr Q12 IV 12/29/17 21:00 01/08/18 20:59 12/31/17 07:44 100 MLS/HR Metronidazole 500 mg/Prmx 100 ml @ 100 mls/hr Q8 IV 12/29/17 19:00 01/08/18 18:59 12/31/17 05:58 100 MLS/HR Physical Exam Height & Weight: Height 5 feet, 5.00 inches. Weight 93.300 (Kilograms) 205 (Pounds) Last Vital Signs Documentation Date Time Temp Pulse Resp B/P (MAP) Pulse Ox O2 Delivery O2 Flow Rate FiO2 12/31/17 07:36 67 107/70 (82) 88 115/74 (88) 69 108/73 (85) 12/31/17 07:23 36.6 18 95 12/31/17 00:00 Room Air Exam: GENERAL: Mrs Link is a 52 y/o white female that appears her stated age. Speech and cognition is intact. Mood and affect is appropriate. Patient is lying in her hospital bed, in no acute distress. HEAD: Normocephalic; atraumatic. There is no tenderness of the bilateral greater occipital, lesser occipital, auriculotemporal, supraorbital, supratrochlear nerves. EYES: Pupils are round, equal, and reactive to light; EOM intact. ENT: No external ear discharge or lesions. No rhinorrhea or epistaxis. No mucosal lesions. NECK: Full ROM; trachea is midline; no TTP; no cervical lymphadenopathy. CHEST: Regular chest respiration and excursion. EXTREMITIES: Using all extremities appropriately. NEURO: CN II-XII grossly intact with no focal deficits noted. Gait was not witnessed Laboratory Laboratory Results (Last CBC): 12/31/17 06:42 Red Blood Count 3.58 L, Mean Corpuscular Volume 89.4, Mean Corpuscular Hemoglobin 30.2, Mean Corpuscular Hemoglobin Concent 33.8, Mean Platelet Volume 8.9, Neutrophils (%) (Auto) 40.5, Lymphocytes (%) (Auto) 41.7, Monocytes (%) ( Auto) 11.9, Eosinophils (%) (Auto) 5.1, Basophils (%) (Auto) 0.6, Neutrophils # (Auto) 2.07, Lymphocytes # (Auto) 2.13, Monocytes # (Auto) 0.61 H, Eosinophils # (Auto) 0.26, Basophils # (Auto) 0.03 Imaging MRI Findings Brain with and without contrast 05/11/17: No change since previous study. Stable 1.4 cm left frontal meningioma. Past Records Previous Records: personally reviewed by me Opioid Risk Assessment Risk assessment performed, minimal risk identified DIRE 15 Assessment 1. Chronic migraine headache 2. Anxiety disorder 3. Urinary retention Recommendations 1. Patient is a candidate for Botox injections as her migraine headaches are daily, lasting 6+ hours, and the patient has tried numerous medications without relief. I have explained Botox and the patient received pamphlets describing Botox in June 2017. At that time, she wanted to research Botox further before undergoing the procedure. She was informed to call our office whenever she was willing to pursue Botox injections that did not follow through. Informed her that Botox would not be administered while she was an inpatient. Should she want to pursue Botox injections, she will call the office and be scheduled. 2. Continue medication management as per neurology 3. Thank you for this consultation we will see her as an outpatient should she wish to pursue Botox for chronic migraine.
[2017-12-31] MEDS: HYDROmorphone INJ 0.5 MG/0.5 ML SYR IV PRN ×2 (13:17→22:41)
[2017-12-31] MEDS: PROMETHAZINE HCL INJ 12.5 MG in SODIUM CHLORIDE 0.9% 50ML 50 ML IV PRN ×2 (13:54→22:40)
[2017-12-31] MEDS ORDERED: NURSING VERBAL MED ORDER ONE ×2 (14:45)
[2017-12-31 15:35] VITALS: BP_SYST 104; BP_SYST 113; BP_SYST 97; BP_DIAS 58; BP_DIAS 66; BP_DIAS 69; PULSE 67; PULSE 70; PULSE 73; TEMP 36.6; O2SAT 90
--- NOTE | 2017-12-31 15:50 | Neurology Progress Notes ---
Neurology Progress Note Date of Service Dec 31, 2017. Benji Griffith is a 52 year old female who presents the ED with severe lower abdominal pain. She was seen in the ED December 18 for nausea, vomiting, diarrhea. She reports she continues to not feel well from that ED visit. Today while out shopping, patient reports she had sudden onset of tunnel vision and subsequently passed out. When she came to she reports she had severe lower abdominal pain radiating into the left side of her groin. There is no reported seizure-like activity, tongue biting, loss of bowel or bladder function. No reported postictal-like symptoms. She had 2 additional syncopal episodes yesterday as well she had a poor appetite and minimal urine out put and was found to have 1 L urine retention in the ED a Ferrari catheter was placed. Currently she states her headache is better and she is doing well accept the drops in blood pressure. denies CP, SOB, palpitations, falls, vision changes, N , V. Objective Date Time Temp Pulse Resp B/P (MAP) Pulse Ox O2 Delivery O2 Flow Rate FiO2 12/31/17 08:00 Room Air 12/31/17 07:36 67 107/70 (82) 88 115/74 (88) 69 108/73 (85) 12/31/17 07:23 36.6 67 18 104/71 (82) 95 12/31/17 00:00 Room Air 12/30/17 23:35 83 103/69 (80) 12/30/17 23:08 36.6 83 20 103/69 (80) 92 Room Air 88 101/68 (79) 96 72/50 (57) 12/30/17 20:00 Room Air 12/30/17 19:40 36.6 71 18 91/58 (69) 92 Room Air 70 106/67 (80) 73 108/67 (81) 12/30/17 16:15 36.7 69 18 99/65 (76) 92 Room Air 12/30/17 16:00 Room Air Last 24 Hours Test 12/31/17 06:42 White Blood Count 5.11 K/uL Red Blood Count 3.58 M/uL Hemoglobin 10.8 g/dL Hematocrit 32.0 % Mean Corpuscular Volume 89.4 fL Mean Corpuscular Hemoglobin 30.2 pg Mean Corpuscular Hemoglobin Concent 33.8 g/dl Platelet Count 209 K/uL Mean Platelet Volume 8.9 fL Neutrophils (%) (Auto) 40.5 % Lymphocytes (%) (Auto) 41.7 % Monocytes (%) (Auto) 11.9 % Eosinophils (%) (Auto) 5.1 % Basophils (%) (Auto) 0.6 % Neutrophils # (Auto) 2.07 K/uL Lymphocytes # (Auto) 2.13 K/uL Monocytes # (Auto) 0.61 K/uL Eosinophils # (Auto) 0.26 K/uL Basophils # (Auto) 0.03 K/uL RDW Standard Deviation 45.8 fL RDW Coefficient of Variation 14.1 % Immature Granulocyte % (Auto) 0.2 % Immature Granulocyte # (Auto) 0.01 K/uL Sodium Level 138 mmol/L Potassium Level 4.7 mmol/L Chloride Level 107 mmol/L Carbon Dioxide Level 30 mmol/L Anion Gap 1.0 mmol/L Blood Urea Nitrogen 14 mg/dl Creatinine 0.98 mg/dl Est Creatinine Clear Calc Drug Dose 74.1 ml/min Estimated GFR () 75.8 Estimated GFR (Non- 65.4 BUN/Creatinine Ratio 14.2 Random Glucose 94 mg/dl Calcium Level 8.5 mg/dl Imaging: no new images Exam: Gen: alert NAD lungs CTA CV RRR biceps triceps hand bpm analyst bilaterally 5/5, hip flex plantar flex ext 5/5, stands bedside with no assistance reflexes 2/4 bilaterally no clonus Current Inpatient Medications Medications (Trade) Dose Ordered Sig/Monalisa Route Start Time Stop Time Status Last Admin Dose Admin Enoxaparin Sodium (Lovenox Inj) 40 mg DAILY SQ 12/27/17 09:00 01/26/18 08:59 12/31/17 07:44 40 MG Acetaminophen (Tylenol Tab) 650 mg Q4H PRN PO 12/26/17 19:00 01/25/18 18:59 12/26/17 23:30 650 MG Polyethylene (Miralax Powder Packet) 17 gm DAILY PRN PO 12/26/17 19:00 01/25/18 18:59 12/28/17 07:26 17 GM Ondansetron HCl (Zofran Inj) 4 mg Q6H PRN IV 12/26/17 19:00 01/25/18 18:59 12/30/17 19:56 4 MG Amitriptyline HCl (Elavil Tab) 30 mg HS PO 12/26/17 21:00 01/25/18 20:59 12/30/17 21:35 30 MG Duloxetine HCl (Cymbalta Cap) 60 mg DAILY PO 12/27/17 09:00 01/26/18 08:59 12/31/17 07:41 60 MG Levothyroxine Sodium (Synthroid Tab) 25 mcg DAILYBB PO 12/27/17 06:30 01/26/18 06:59 12/31/17 05:58 25 MCG Pantoprazole Sodium (Protonix Tab) 40 mg BID PO 12/26/17 21:00 01/25/18 20:59 12/31/17 07:41 40 MG Trazodone HCl (Desyrel Tab) 100 mg HS PO 12/26/17 21:00 01/25/18 20:59 12/30/17 21:34 100 MG Magnesium Oxide (Mag-Ox Tab) 400 mg DAILY PO 12/27/17 09:00 01/26/18 08:59 12/31/17 07:41 400 MG Lactobacillus Acidophilus (Floranex Tab) 1 tab TIDM PO 12/27/17 08:00 01/26/18 07:59 12/31/17 11:50 1 TAB Tramadol HCl (Ultram Tab) not relieved by tylenol @ Q6H PRN PO 12/27/17 01:00 01/26/18 00:59 12/29/17 01:23 50 MG Morphine Sulfate (MoRPHine SULFATE INJ) 4 mg Q4H PRN IV 12/27/17 09:30 01/10/18 09:29 12/31/17 07:48 4 MG Metoclopramide HCl (Reglan Inj) 10 mg Q6H PRN IV. 12/27/17 18:30 01/26/18 18:29 12/29/17 12:36 10 MG Senna/Docusate Sodium (Senokot S Tab) 1 tab QAM PO 12/28/17 09:00 01/27/18 08:59 12/31/17 07:41 1 TAB Magnesium Hydroxide (Milk Of Magnesia Susp) 30 ml Q6H PRN PO 12/28/17 07:30 01/27/18 07:29 Bisacodyl (Dulcolax Supp) 10 mg DAILY PRN CA 4/20/18 07:30 01/27/18 07:29 Propranolol HCl (Inderal La Cap) 60 mg HS PO 12/28/17 21:00 01/26/18 08:59 12/30/17 21:35 60 MG Promethazine HCl 12.5 mg/Sodium Chloride 50.5 ml @ 204 mls/hr Q6H PRN IV 12/28/17 18:15 01/27/18 18:14 12/31/17 13:54 204 MLS/HR Lidocaine (Lidoderm Patch 5%) 1 patch QAM TD 12/29/17 09:00 01/28/18 08:59 12/31/17 07:42 1 PATCH Miscellaneous (Remove Lidoderm Patch) 1 ea DAILY@21 N/A 12/28/17 21:00 01/27/18 20:59 12/30/17 21:36 1 EA Cyclobenzaprine HCl (Flexeril Tab) 5 mg BID PRN PO 12/28/17 18:15 01/27/18 18:14 Hydromorphone HCl (Dilaudid Inj) 0.5 mg Q6H PRN IV 12/28/17 18:15 01/11/18 18:14 12/31/17 13:17 0.5 MG Divalproex Sodium (Depakote Extended Rel Tab) 250 mg HS PO 12/29/17 21:00 01/28/18 20:59 12/30/17 21:36 250 MG Ciprofloxacin/ Dextrose 400 mg/ Prmx 200 ml @ 100 mls/hr Q12 IV 12/29/17 21:00 01/08/18 20:59 12/31/17 07:44 100 MLS/HR Metronidazole 500 mg/Prmx 100 ml @ 100 mls/hr Q8 IV 12/29/17 19:00 01/08/18 18:59 12/31/17 14:32 100 MLS/HR Impression 52 year old female abdominal pain on admission and increased headache symptoms Plan 1. depakote 250 mg HS started 2. pain mgt - will start botox injections as outpatient 3. blood pressure issues- inderal can be d/c if effecting blood pressure was started for headache management 4. no further imaging needed at this time 5. ok to discharge from neurology stand point once medically stable follow up as schedules neurology 01/15/2018 Sara MILAN I have seen and discussed above patient with Dr Melvin Rowell, neurology Patient seen will contine current meds and depakote dose pain management is going to see her and likely offer botox we will sign off at this point and hopefully with further management of the diverticlitis her toxic headache component to the daily headache syndrome will resolve follow up as above Melvin Rowell MD
[2017-12-31] MEDS: METOCLOPRAMIDE HCL INJ 5 MG/ML 2 ML VIAL IV. PRN (16:44)
[2017-12-31] MEDS: ONDANSETRON INJ 2 MG/ML 2 ML VIAL IV PRN (17:35)
--- NOTE | 2017-12-31 18:09 | Gastrointestinal Consultation ---
Gastrointestinal Consultation Date of Consultation: Dec 31, 2017 Attending Physician: Tano Perry Consulting Physician: Nargis Rose Reason for Consultation: L abd pain History of Present Illness Patient is a 52 year old female currently seen for L sided abd pain. She was admitted for urinary retention, suspected due to use of Amitritylline and Levsin - currently resolved. She is currently also being evaluated by Neurology and Pain Management for migraine headaches. Pt has hx of Neel en Y gastric bypass, diverticulitis, and IBS. She had been using Levsin 0.125mg TID for abd pain symptoms and felt it seems to give her some relief. She reports that as soon as she eats, she felt pain along L side of abd, also has associated early satiety and nausea. Her CT abd/pelvis on 12/26 and 12/29 didn't show any acute processes in bowel areas which may cause her pain. She reports good BM, w/o rectal bleeding. Last colonoscopy 08/2016 - diverticulosis, hemorrhoids Last EGD - normal findings. Past Medical/Surgical History Medical Problems: (1) Abdominal pain, suprapubic Status: Acute (2) Abdominal wall cellulitis Status: Acute (3) Abdominal wall hematoma Status: Acute (4) Arm pain, right Status: Acute (5) Bilateral leg edema Status: Acute (6) Cellulitis Status: Acute (7) Chest pain Status: Acute (8) Chest pain Status: Acute (9) Chronic anemia Status: Acute (10) Chronic diarrhea Status: Acute (11) Dehydration Status: Acute (12) Dental infection Status: Acute (13) Diarrhea Status: Acute (14) Dizziness Status: Acute (15) Facial cellulitis Status: Acute (16) Facial swelling Status: Acute (17) Generalized weakness Status: Acute (18) Generalized weakness Status: Acute (19) Hematemesis Status: Acute (20) Hypokalemia Status: Acute (21) Hypokalemia Status: Acute (22) Intractable abdominal pain Status: Acute (23) Left arm pain Status: Acute (24) Left leg pain Status: Acute (25) Lump in neck Status: Acute (26) Migraine Status: Acute (27) Nausea vomiting and diarrhea Status: Acute (28) Neurological symptoms Status: Acute (29) Pancreatitis Status: Acute (30) Pleuritic chest pain Status: Acute (31) Precordial chest pain Status: Acute (32) Pulmonary embolism Status: Acute (33) Shortness of breath Status: Acute (34) Shortness of breath Status: Acute (35) Substernal precordial chest pain Status: Acute (36) Symptoms involving urinary system Status: Acute (37) Syncope Status: Acute (38) Syncope Status: Acute (39) Thrombophlebitis arm Status: Acute (40) Thrush Status: Acute (41) Urinary retention Status: Acute (42) Urinary retention Status: Acute Past Medical History: As above. Past Surgical History: Hysterectomy, appendectomy, panniculectomy, carpal tunnel, as above. Family History FHx: rheumatoid arthritis MOTHER GRANDMOTHER Social History Smoking Status: Never Smoker Alcohol Use: none Marital Status: Housing Status: lives with family Occupation Status: unemployed Allergies Coded Allergies: Oxycodone (Verified Allergy, Intermediate, HIVES, 12/18/17) Piperacillin (Verified Allergy, Intermediate, Pruritus, 12/29/17) Tazobactam (Verified Allergy, Intermediate, Pruritus, 12/29/17) Ketorolac Tromethamine (Verified Allergy, Mild, Itching, 12/27/17) Current Medications Home Meds and Scripts Medications Dose Route/Sig Max Daily Dose Days Date Category Dose Instructions Propranolol HCl ER (Propranolol HCl) 60 Mg Capcr 60 Mg PO DAILY 12/26/17 Reported Amitriptyline HCl 10 Mg Tab 40 Mg PO HS 12/26/17 Reported Trazodone HCl 100 Mg Tab 100 Mg PO HS 12/26/17 Reported Enbrel Mini (Etanercept) 50 Mg/Ml Inj 50 Mg INJ WK 12/26/17 Reported ADMINISTER EVERY SUNDAY Phenergan (Promethazine HCl) 25 Mg Tab 25 Mg PO Q8 PRN 12/18/17 Reported Probiotic (Probiotic Product) 1 Cap Cap 1 Cap PO TIDM 10/02/17 Reported Zofran Odt (Ondansetron HCl) 8 Mg Soltab 8 Mg SL Q8 PRN 10/02/17 Reported Cymbalta (Duloxetine Hcl) 60 Mg Cap 60 Mg PO DAILY 10/02/17 Reported Magnesium Oxide (Magnesium Oxide (Mg Supplement) 400 Mg Tab 400 Mg PO DAILY 10/02/17 Reported Vitamin B-2 (Riboflavin) 100 Mg Tab 400 Mg PO DAILY 05/30/17 Reported Vitamin D 29609 Unit (Ergocalciferol) 50,000 Unit Cap 50,000 Inter.unit PO 2XWK 02/21/17 Reported TAKE THIS MEDICATION EVERY SUNDAY AND SUNDAY Sumatriptan Succinate 50 Mg Tab 50 Mg PO UD PRN 01/04/17 Reported TAKE 1 TABLET AT ONSET OF HEADACHE MAY REPEAT IN 2 HOURS IF NEEDED.MAXIMUM OF 2 TABLETS IN 24 HOURS. Levsin (Hyoscyamine Sulfate) 0.125 Mg Tab 0.125 Mg PO TID PRN 09/03/16 Reported Ventolin Hfa (Albuterol) 200 Puffs/51410 Mcg Aers 2 Puffs INH QID PRN 06/27/16 Reported Levothyroxine Sodium 25 Mcg Tab 25 Mcg PO DAILY 12/08/15 Reported TAKE THIS MEDICATION AT LEAST 30 MINUTES BEFORE BREAKFAST OR ANY OTHER MEDICATIONS Pantoprazole Sodium (Pantoprazole) 40 Mg Tab 40 Mg PO BID 04/09/15 Reported Review of Systems Constitutional: No fever, No chills Respiratory: No cough, No shortness of breath Cardiac: No chest pain Abdomen: + see HPI, + pain, + nausea, No vomiting, No diarrhea, No GI bleeding Female : + see HPI Physical Exam Date Time Temp Pulse Resp B/P (MAP) Pulse Ox O2 Delivery O2 Flow Rate FiO2 12/31/17 15:35 36.6 67 20 113/69 (84) 90 Room Air 70 104/58 (73) 73 97/66 (76) 12/31/17 08:00 Room Air 12/31/17 07:36 67 107/70 (82) 88 115/74 (88) 69 108/73 (85) 12/31/17 07:23 36.6 67 18 104/71 (82) 95 12/31/17 00:00 Room Air 12/30/17 23:35 83 103/69 (80) 12/30/17 23:08 36.6 83 20 103/69 (80) 92 Room Air 88 101/68 (79) 96 72/50 (57) 12/30/17 20:00 Room Air 12/30/17 19:40 36.6 71 18 91/58 (69) 92 Room Air 70 106/67 (80) 73 108/67 (81) General Appearance: WD/WN, no apparent distress, + obese Eyes: normal inspection, PERRL, EOMI Neck: supple, no JVD, trachea midline Respiratory/Chest: normal breath sounds, no respiratory distress, no accessory muscle use Cardiovascular: regular rate, rhythm, no gallop, no murmur Abdomen: normal bowel sounds, soft, + tenderness (LLQ) Extremities: normal inspection, no pedal edema, no calf tenderness Neurologic/Psych: alert, normal mood/affect, oriented x 3 Skin: normal color, no jaundice, no rash Laboratory Results Last 24 Hours Test 12/31/17 06:42 White Blood Count 5.11 K/uL Red Blood Count 3.58 M/uL Hemoglobin 10.8 g/dL Hematocrit 32.0 % Mean Corpuscular Volume 89.4 fL Mean Corpuscular Hemoglobin 30.2 pg Mean Corpuscular Hemoglobin Concent 33.8 g/dl Platelet Count 209 K/uL Mean Platelet Volume 8.9 fL Neutrophils (%) (Auto) 40.5 % Lymphocytes (%) (Auto) 41.7 % Monocytes (%) (Auto) 11.9 % Eosinophils (%) (Auto) 5.1 % Basophils (%) (Auto) 0.6 % Neutrophils # (Auto) 2.07 K/uL Lymphocytes # (Auto) 2.13 K/uL Monocytes # (Auto) 0.61 K/uL Eosinophils # (Auto) 0.26 K/uL Basophils # (Auto) 0.03 K/uL RDW Standard Deviation 45.8 fL RDW Coefficient of Variation 14.1 % Immature Granulocyte % (Auto) 0.2 % Immature Granulocyte # (Auto) 0.01 K/uL Sodium Level 138 mmol/L Potassium Level 4.7 mmol/L Chloride Level 107 mmol/L Carbon Dioxide Level 30 mmol/L Anion Gap 1.0 mmol/L Blood Urea Nitrogen 14 mg/dl Creatinine 0.98 mg/dl Est Creatinine Clear Calc Drug Dose 74.1 ml/min Estimated GFR () 75.8 Estimated GFR (Non- 65.4 BUN/Creatinine Ratio 14.2 Random Glucose 94 mg/dl Calcium Level 8.5 mg/dl Impression Patient is a 52 year old female admitted for urinary retention suspected to be from med uses (Amitrityline and Levsin) currently seen for L sided abd pain. Pt reports having nausea and L sided abd pain as soon as eating, and also associated w early satiety. Hx of Neel en Y gastric bypass, diverticulitis. So far imaging studies from CT scan w/o clear etiology of pt's abd pain. Plan - Continue Reglan IV prn for now - Will consider restarting antispasmodic on low dose attg add: I interviewed and examined pt, reviewed chart and labs. Pt with PMH depression, obesity s/p RYGB with marked recent zheng gain now with LLQ pain. Admit with urinary retention due to Amitryptiline/anticholinergics. Given pain after eating, will plan EGD. However, pain appears functional, possibly related to poor compliance with RYGB diet -- consider gabapentin, outpt w/u.
--- NOTE | 2017-12-31 19:20 | Progress Note ---
Medicine Progress Note Date & Time of Visit: Dec 31, 2017 at 19:01. Subjective seen resting in bed, appears anxious, but pleasant states she had increased L sided abdominal pain and nausea after eating lunch headache improving voiding properly no other symptoms Objective Last 8 Hrs Date Time Temp Pulse Resp B/P (MAP) Pulse Ox O2 Delivery O2 Flow Rate FiO2 12/31/17 15:35 36.6 67 20 113/69 (84) 90 Room Air 70 104/58 (73) 73 97/66 (76) Physical Exam: General-oriented 3, not in distress, speaking in sentences, no accessory muscle use Neck-no JVD Lungs- clear breath sounds bilaterally no rales, no wheezing Heart- regular rhythm; no murmur, normal rate Abdomen- normal bowel sounds, soft, nondistended, mild tenderness L quadrants Extremities- no pretibial edema, no calf tenderness Neuro- alert, oriented x 3; no gross focal neurologic deficits Skin- warm & dry, no rashes Laboratory Results: Last 24 Hours Test 12/31/17 06:42 White Blood Count 5.11 K/uL Red Blood Count 3.58 M/uL Hemoglobin 10.8 g/dL Hematocrit 32.0 % Mean Corpuscular Volume 89.4 fL Mean Corpuscular Hemoglobin 30.2 pg Mean Corpuscular Hemoglobin Concent 33.8 g/dl Platelet Count 209 K/uL Mean Platelet Volume 8.9 fL Neutrophils (%) (Auto) 40.5 % Lymphocytes (%) (Auto) 41.7 % Monocytes (%) (Auto) 11.9 % Eosinophils (%) (Auto) 5.1 % Basophils (%) (Auto) 0.6 % Neutrophils # (Auto) 2.07 K/uL Lymphocytes # (Auto) 2.13 K/uL Monocytes # (Auto) 0.61 K/uL Eosinophils # (Auto) 0.26 K/uL Basophils # (Auto) 0.03 K/uL RDW Standard Deviation 45.8 fL RDW Coefficient of Variation 14.1 % Immature Granulocyte % (Auto) 0.2 % Immature Granulocyte # (Auto) 0.01 K/uL Sodium Level 138 mmol/L Potassium Level 4.7 mmol/L Chloride Level 107 mmol/L Carbon Dioxide Level 30 mmol/L Anion Gap 1.0 mmol/L Blood Urea Nitrogen 14 mg/dl Creatinine 0.98 mg/dl Est Creatinine Clear Calc Drug Dose 74.1 ml/min Estimated GFR () 75.8 Estimated GFR (Non- 65.4 BUN/Creatinine Ratio 14.2 Random Glucose 94 mg/dl Calcium Level 8.5 mg/dl Assessment & Plan 52-year-old female with history of gastric bypass surgery, history of diabetes, migraine, depression, other problems noted below Presenting with abdominal pain and syncopal episode. ACUTE URINARY RETENTION, Resolved MILD ACUTE KIDNEY INJURY -Patient presented with severe lower abdominal pain and syncopal event; in the ED found to have significant urinary retention -Likely due to use of amitriptyline and Levsin -Noted that amitriptyline was recently increased as an outpatient approximately 3 weeks ago Amitriptyline back to usual 30 mg daily, Levsin discontinued Ferrari catheter has been placed crea improved Urologist consulted Dr. Avila Ferrari removed after 2 days Now without any voiding problems appreciate Dr. Avila' recommendations PERSISTENT LEFT SIDED ABDOMINAL PAIN, POSSIBLE DIVERTICULITIS HISTORY OF GASTRIC BYPASS Repeat CT of the abdomen and pelvis ordered: No acute process Clinically patient is showing signs of possible diverticulitis Day 3 Cipro and Flagyl (zosyn discontinued as patient developed pruritus) -- left sided abdominal pain increased today, with nausea GI consulted for EGD in AM SYNCOPE - Likely vasovagal due to urinary retention, abdominal pain orthostatic VS negative GENERALIZED PRURITUS, Resolved Upon medication review, possible culprit drug may be Toradol, resolved upon discontinuation recurred after starting Zosyn, resolved upon discontinuation HISTORY OF MIGRAINES - Decreased dose of amitriptyline as above - Continue Propanolol and Riboflavin Neurologist consulted Dr. Rowell started Depakote daily also recommended pain management consult - Dr. Regalado recommends possible Botox treatment as outpatient - headache improving HYPOTHYROIDISM -continue levothyroxine GERD -continue PPI DVT PROPHYLAXIS -SQ Lovenox DISPO Pending Anticipate discharge to home when medically stable, cleared by GI ff up with Dr. Pinon for PCP ff up with Dr. Rowell for Neurology, Dr. Regalado for pain management ff up with Dr. Elmoer for GI Current Inpatient Medications: Current Inpatient Medications Medications (Trade) Dose Ordered Sig/Monalisa Route Start Time Stop Time Status Last Admin Dose Admin Enoxaparin Sodium (Lovenox Inj) 40 mg DAILY SQ 12/27/17 09:00 01/26/18 08:59 12/31/17 07:44 40 MG Acetaminophen (Tylenol Tab) 650 mg Q4H PRN PO 12/26/17 19:00 01/25/18 18:59 12/26/17 23:30 650 MG Polyethylene (Miralax Powder Packet) 17 gm DAILY PRN PO 12/26/17 19:00 01/25/18 18:59 12/28/17 07:26 17 GM Ondansetron HCl (Zofran Inj) 4 mg Q6H PRN IV 12/26/17 19:00 01/25/18 18:59 12/31/17 17:35 4 MG Amitriptyline HCl (Elavil Tab) 30 mg HS PO 12/26/17 21:00 01/25/18 20:59 12/30/17 21:35 30 MG Duloxetine HCl (Cymbalta Cap) 60 mg DAILY PO 12/27/17 09:00 01/26/18 08:59 12/31/17 07:41 60 MG Levothyroxine Sodium (Synthroid Tab) 25 mcg DAILYBB PO 12/27/17 06:30 01/26/18 06:59 12/31/17 05:58 25 MCG Pantoprazole Sodium (Protonix Tab) 40 mg BID PO 12/26/17 21:00 01/25/18 20:59 12/31/17 07:41 40 MG Trazodone HCl (Desyrel Tab) 100 mg HS PO 12/26/17 21:00 01/25/18 20:59 12/30/17 21:34 100 MG Magnesium Oxide (Mag-Ox Tab) 400 mg DAILY PO 12/27/17 09:00 01/26/18 08:59 12/31/17 07:41 400 MG Lactobacillus Acidophilus (Floranex Tab) 1 tab TIDM PO 12/27/17 08:00 01/26/18 07:59 12/31/17 16:44 1 TAB Tramadol HCl (Ultram Tab) not relieved by tylenol @ Q6H PRN PO 12/27/17 01:00 01/26/18 00:59 12/29/17 01:23 50 MG Morphine Sulfate (MoRPHine SULFATE INJ) 4 mg Q4H PRN IV 12/27/17 09:30 01/10/18 09:29 12/31/17 16:44 4 MG Metoclopramide HCl (Reglan Inj) 10 mg Q6H PRN IV. 12/27/17 18:30 01/26/18 18:29 12/31/17 16:44 10 MG Senna/Docusate Sodium (Senokot S Tab) 1 tab QAM PO 12/28/17 09:00 01/27/18 08:59 12/31/17 07:41 1 TAB Magnesium Hydroxide (Milk Of Magnesia Susp) 30 ml Q6H PRN PO 12/28/17 07:30 01/27/18 07:29 Bisacodyl (Dulcolax Supp) 10 mg DAILY PRN [place] 12/28/17 07:30 01/27/18 07:29 Propranolol HCl (Inderal La Cap) 60 mg HS PO 12/28/17 21:00 01/26/18 08:59 12/30/17 21:35 60 MG Promethazine HCl 12.5 mg/Sodium Chloride 50.5 ml @ 204 mls/hr Q6H PRN IV 12/28/17 18:15 01/27/18 18:14 12/31/17 13:54 204 MLS/HR Lidocaine (Lidoderm Patch 5%) 1 patch QAM TD 12/29/17 09:00 01/28/18 08:59 12/31/17 07:42 1 PATCH Miscellaneous (Remove Lidoderm Patch) 1 ea DAILY@21 N/A 12/28/17 21:00 01/27/18 20:59 12/30/17 21:36 1 EA Cyclobenzaprine HCl (Flexeril Tab) 5 mg BID PRN PO 12/28/17 18:15 01/27/18 18:14 Hydromorphone HCl (Dilaudid Inj) 0.5 mg Q6H PRN IV 12/28/17 18:15 01/11/18 18:14 12/31/17 13:17 0.5 MG Divalproex Sodium (Depakote Extended Rel Tab) 250 mg HS PO 12/29/17 21:00 01/28/18 20:59 12/30/17 21:36 250 MG Ciprofloxacin/ Dextrose 400 mg/ Prmx 200 ml @ 100 mls/hr Q12 IV 12/29/17 21:00 01/08/18 20:59 12/31/17 07:44 100 MLS/HR Metronidazole 500 mg/Prmx 100 ml @ 100 mls/hr Q8 IV 12/29/17 19:00 01/08/18 18:59 12/31/17 14:32 100 MLS/HR
[2017-12-31] MEDS: PROPRANOLOL HCL 60 MG LA CAP PO SCH (20:25)
[2017-12-31] MEDS: DIVALPROEX 250 MG EXTENDED REL TAB PO SCH (20:25)
[2017-12-31] MEDS: AMITRIPTYLINE HCL 10 MG TAB PO SCH (22:40)
[2017-12-31] MEDS: TRAZODONE HCL 100 MG TAB PO SCH (22:40)
[2017-12-31 23:47] VITALS: BP_SYST 86; BP_SYST 88; BP_SYST 99; BP_DIAS 53; BP_DIAS 56; BP_DIAS 61; PULSE 62; PULSE 72; PULSE 74; TEMP 36.6; O2SAT 90
[2018-01-01] VITALS (10 sets, daily range): BP systolic 89–121; BP diastolic 51–79; PULSE 61–82; TEMP 36.3–36.6; O2SAT 92–94
[2018-01-01] MEDS ORDERED: SODIUM CHLORIDE 0.9% 500ML 500 ML IV ONE (02:15)
[2018-01-01 02:32] LABS: BASO % 0.4 %; BASO ABS # 0.02 K/uL (0-0.2); EOS % 4.9 %; EOS ABS # 0.24 K/uL (0-0.5); HEMATOCRIT 32.6 % (37-47); HEMOGLOBIN 10.9 g/dL (12.0-16.0); LYMPH ABS # 2.15 K/uL (1.2-3.4); MEAN CELL VOLUME 89.3 fL (80-100); MEAN CORPUSCULAR HEMOGLOBIN 29.9 pg (25-34); MEAN CORPUSCULAR HGB CONC 33.4 g/dl (32-36); MONO % 11.9 %; MONO ABS # 0.58 K/uL (0.11-0.59); NEUT % 38.8 %; PLATELET COUNT 207 K/uL (130-400); RED CELL DISTRIBUTION WIDTH CV 14.1 % (11.5-14.5); RED CELL DISTRIBUTION WIDTH SD 46.2 fL (36.4-46.3); WHITE BLOOD COUNT 4.89 K/uL (4.8-10.8)
[2018-01-01 02:49] LABS: CALCIUM 8.5 mg/dl (8.5-10.1); CREATININE 0.89 mg/dl (0.60-1.20); POTASSIUM 4.5 mmol/L (3.5-5.1)
[2018-01-01] MEDS: LEVOTHYROXINE 25 MCG TAB PO SCH (05:51)
[2018-01-01] MEDS: METRONIDAZOLE / NSS 500 MG in PREMIXED NSS 100 ML IV SCH ×3 (05:51→21:33)
[2018-01-01] MEDS: MoRPHine SULFATE 4 MG/ML 1 ML CARP\\VIAL IV PRN ×3 (06:30→16:59)
[2018-01-01] MEDS: ONDANSETRON INJ 2 MG/ML 2 ML VIAL IV PRN ×3 (06:30→16:59)
[2018-01-01] MEDS: CIPROFLOXACIN / D5W 400 MG in PREMIXED IN D5W 200 ML IV SCH ×2 (08:06→21:31)
[2018-01-01] MEDS: LIDODERM (LIDOCAINE) PATCH 5% TD SCH (08:10)
[2018-01-01] MEDS: DULOXETINE HCL 60 MG CAP PO SCH (08:10)
[2018-01-01] MEDS: DOCUSATE SODIUM/SENNA 50/8.6MG TAB PO SCH (08:10)
[2018-01-01] MEDS: LACTOBACILLUS ACIDOPHILUS (FLORANEX) TAB PO SCH ×3 (08:10→16:59)
[2018-01-01] MEDS: MAGNESIUM OXIDE 400 MG TAB PO SCH (08:11)
[2018-01-01] MEDS: PANTOprazole SOD 40 MG TAB PO SCH ×2 (08:11→21:32)
[2018-01-01] MEDS: ENOXAPARIN 40 MG/0.4 ML SYR SQ SCH (08:12)
[2018-01-01] MEDS: TRAMADOL HCL 50 MG TAB PO PRN (10:45)
--- NOTE | 2018-01-01 11:19 | Gastroenterology Progress Note ---
Progress Note Date of Service: Jan 01, 2018 Subjective Pt evaluation today including: conversation w/ patient, physical exam, chart review, lab review, review of inpatient medication list Pt tolerating cream of wheat this AM w/o nausea, vomiting. Still having LLQ abd pain w/o radiation. Is having regular BMs. Review of Systems Constitutional: No fever, No chills Respiratory: No cough, No shortness of breath Cardiac: No chest pain Abdomen: + see HPI, + pain, No nausea, No vomiting Medications Current Inpatient Medications Medications (Trade) Dose Ordered Sig/Monalisa Route Start Time Stop Time Status Last Admin Dose Admin Enoxaparin Sodium (Lovenox Inj) 40 mg DAILY SQ 12/27/17 09:00 01/26/18 08:59 01/01/18 08:12 40 MG Acetaminophen (Tylenol Tab) 650 mg Q4H PRN PO 12/26/17 19:00 01/25/18 18:59 12/26/17 23:30 650 MG Polyethylene (Miralax Powder Packet) 17 gm DAILY PRN PO 12/26/17 19:00 01/25/18 18:59 12/28/17 07:26 17 GM Ondansetron HCl (Zofran Inj) 4 mg Q6H PRN IV 12/26/17 19:00 01/25/18 18:59 01/01/18 10:45 4 MG Amitriptyline HCl (Elavil Tab) 30 mg HS PO 12/26/17 21:00 01/25/18 20:59 12/31/17 22:40 30 MG Duloxetine HCl (Cymbalta Cap) 60 mg DAILY PO 12/27/17 09:00 01/26/18 08:59 01/01/18 08:10 60 MG Levothyroxine Sodium (Synthroid Tab) 25 mcg DAILYBB PO 12/27/17 06:30 01/26/18 06:59 01/01/18 05:51 25 MCG Pantoprazole Sodium (Protonix Tab) 40 mg BID PO 12/26/17 21:00 01/25/18 20:59 01/01/18 08:11 40 MG Trazodone HCl (Desyrel Tab) 100 mg HS PO 12/26/17 21:00 01/25/18 20:59 12/31/17 22:40 100 MG Magnesium Oxide (Mag-Ox Tab) 400 mg DAILY PO 12/27/17 09:00 01/26/18 08:59 01/01/18 08:11 400 MG Lactobacillus Acidophilus (Floranex Tab) 1 tab TIDM PO 12/27/17 08:00 01/26/18 07:59 01/01/18 08:10 1 TAB Tramadol HCl (Ultram Tab) not relieved by tylenol @ Q6H PRN PO 12/27/17 01:00 01/26/18 00:59 01/01/18 10:45 50 MG Morphine Sulfate (MoRPHine SULFATE INJ) 4 mg Q4H PRN IV 12/27/17 09:30 01/10/18 09:29 01/01/18 06:30 4 MG Metoclopramide HCl (Reglan Inj) 10 mg Q6H PRN IV. 12/27/17 18:30 01/26/18 18:29 12/31/17 16:44 10 MG Senna/Docusate Sodium (Senokot S Tab) 1 tab QAM PO 12/28/17 09:00 01/27/18 08:59 01/01/18 08:10 1 TAB Magnesium Hydroxide (Milk Of Magnesia Susp) 30 ml Q6H PRN PO 12/28/17 07:30 01/27/18 07:29 Bisacodyl (Dulcolax Supp) 10 mg DAILY PRN [place] 12/28/17 07:30 01/27/18 07:29 Propranolol HCl (Inderal La Cap) 60 mg HS PO 12/28/17 21:00 01/26/18 08:59 12/31/17 20:25 60 MG Promethazine HCl 12.5 mg/Sodium Chloride 50.5 ml @ 204 mls/hr Q6H PRN IV 12/28/17 18:15 01/27/18 18:14 12/31/17 22:40 204 MLS/HR Lidocaine (Lidoderm Patch 5%) 1 patch QAM TD 12/29/17 09:00 01/28/18 08:59 01/01/18 08:10 1 PATCH Miscellaneous (Remove Lidoderm Patch) 1 ea DAILY@21 N/A 12/28/17 21:00 01/27/18 20:59 12/31/17 20:25 1 EA Cyclobenzaprine HCl (Flexeril Tab) 5 mg BID PRN PO 12/28/17 18:15 01/27/18 18:14 Hydromorphone HCl (Dilaudid Inj) 0.5 mg Q6H PRN IV 12/28/17 18:15 01/11/18 18:14 12/31/17 22:41 0.5 MG Divalproex Sodium (Depakote Extended Rel Tab) 250 mg HS PO 12/29/17 21:00 01/28/18 20:59 12/31/17 20:25 250 MG Ciprofloxacin/ Dextrose 400 mg/ Prmx 200 ml @ 100 mls/hr Q12 IV 12/29/17 21:00 01/08/18 20:59 01/01/18 08:06 100 MLS/HR Metronidazole 500 mg/Prmx 100 ml @ 100 mls/hr Q8 IV 12/29/17 19:00 01/08/18 18:59 01/01/18 05:51 100 MLS/HR Objective Vital Signs Date Time Temp Pulse Resp B/P (MAP) Pulse Ox O2 Delivery O2 Flow Rate FiO2 01/01/18 07:36 82 121/76 (91) 01/01/18 07:35 67 109/69 (82) 01/01/18 07:34 36.6 66 18 104/69 (81) 92 Room Air 01/01/18 06:21 113/74 (87) 01/01/18 03:02 96/61 (73) 01/01/18 02:00 89/51 (64) 01/01/18 00:00 Room Air 12/31/17 23:47 36.6 62 18 88/53 (65) 90 Room Air 72 99/61 (74) 74 86/56 (66) 12/31/17 16:00 Room Air 12/31/17 15:35 36.6 67 20 113/69 (84) 90 Room Air 70 104/58 (73) 73 97/66 (76) Physical Exam General Appearance: WD/WN, no apparent distress Eyes: normal inspection, PERRL, EOMI Neck: supple, no JVD, trachea midline Respiratory/Chest: normal breath sounds, no respiratory distress, no accessory muscle use Cardiovascular: regular rate, rhythm, no gallop, no murmur Abdomen: normal bowel sounds, soft, + tenderness (LLQ) Extremities: normal inspection, no pedal edema, no calf tenderness Neurologic/Psych: alert, normal mood/affect, oriented x 3 Skin: normal color, no jaundice, no rash Laboratory Results Last 24 Hours Test 01/01/18 02:22 White Blood Count 4.89 K/uL Red Blood Count 3.65 M/uL Hemoglobin 10.9 g/dL Hematocrit 32.6 % Mean Corpuscular Volume 89.3 fL Mean Corpuscular Hemoglobin 29.9 pg Mean Corpuscular Hemoglobin Concent 33.4 g/dl Platelet Count 207 K/uL Mean Platelet Volume 9.0 fL Neutrophils (%) (Auto) 38.8 % Lymphocytes (%) (Auto) 44.0 % Monocytes (%) (Auto) 11.9 % Eosinophils (%) (Auto) 4.9 % Basophils (%) (Auto) 0.4 % Neutrophils # (Auto) 1.90 K/uL Lymphocytes # (Auto) 2.15 K/uL Monocytes # (Auto) 0.58 K/uL Eosinophils # (Auto) 0.24 K/uL Basophils # (Auto) 0.02 K/uL RDW Standard Deviation 46.2 fL RDW Coefficient of Variation 14.1 % Immature Granulocyte % (Auto) 0.0 % Immature Granulocyte # (Auto) 0.00 K/uL Sodium Level 138 mmol/L Potassium Level 4.5 mmol/L Chloride Level 107 mmol/L Carbon Dioxide Level 29 mmol/L Anion Gap 2.0 mmol/L Blood Urea Nitrogen 12 mg/dl Creatinine 0.89 mg/dl Est Creatinine Clear Calc Drug Dose 81.6 ml/min Estimated GFR () 85.2 Estimated GFR (Non- 73.5 BUN/Creatinine Ratio 13.4 Random Glucose 96 mg/dl Lactic Acid Level 1.0 mmol/L Calcium Level 8.5 mg/dl Magnesium Level 2.1 mg/dl Valproic Acid (Depakene) Level 22 mcg/ml Assessment and Plan Impression Patient is a 52 year old female admitted for urinary retention suspected to be from med uses (Amitrityline and Levsin) currently seen for L sided abd pain. Pt reports having nausea and L sided abd pain as soon as eating, and also associated w early satiety. Hx of Neel en Y gastric bypass, diverticulitis. So far imaging studies from CT scan w/o clear etiology of pt's abd pain. Plan - Discussed with Dr. Elmore, no urgent indication for repeat EGD, will plan in outpt setting if n/v persist - Add Gabapentin 300mg TID for abd pain symptoms; will avoid antispasmodics given urinary retention hx. Addendum: will go ahead and schedule EGD for tomorrow with Dr. Rose. Pls keep her NPO after midnight. Att add: I interviewed and examined pt, reviewed chart and labs. Pt with 2 weeks of LLQ pain shortly after eating. On exam, she is tender in LUQ. Will plan EGD to r/u anastamotic ulcer.
[2018-01-01] MEDS: METOCLOPRAMIDE HCL INJ 5 MG/ML 2 ML VIAL IV. PRN ×2 (12:10→21:41)
[2018-01-01] MEDS: GABAPENTIN 300 MG CAP PO SCH ×2 (13:54→21:33)
--- NOTE | 2018-01-01 16:09 | Progress Note ---
Medicine Progress Note Date & Time of Visit: Jan 01, 2018 at 16:00 . Subjective CC: Follow-up visit for abdominal pain, urinary retention, other problems. HPI: Urinary retention resolved. Ongoing left-sided abdominal pain. Ongoing nausea. Chronic migraine headaches. ROS: General- no fever, no chills Resp- no cough; no shortness of breath Cardiac- no chest pain GI- as noted above in HPI - as noted above in HPI . Objective Last 8 Hrs Date Time Temp Pulse Resp B/P (MAP) Pulse Ox O2 Delivery O2 Flow Rate FiO2 01/01/18 15:14 36.3 61 18 103/69 (80) 92 Room Air 01/01/18 12:07 72 110/73 (85) Physical Exam: General- lying in bed; no distress Lungs- clear to auscultation; no respiratory distress Cardiovascular- RRR; I/ systolic murmur at base; no gallop; no JVD; no pretibial edema Abdomen- hyperactive bowel sounds, slightly distended, soft, diffuse mild tenderness Extremities- no cyanosis; no calf tenderness Neuro- alert, oriented Skin- warm & dry . Laboratory Results: Last 24 Hours Test 01/01/18 02:22 White Blood Count 4.89 K/uL Red Blood Count 3.65 M/uL Hemoglobin 10.9 g/dL Hematocrit 32.6 % Mean Corpuscular Volume 89.3 fL Mean Corpuscular Hemoglobin 29.9 pg Mean Corpuscular Hemoglobin Concent 33.4 g/dl Platelet Count 207 K/uL Mean Platelet Volume 9.0 fL Neutrophils (%) (Auto) 38.8 % Lymphocytes (%) (Auto) 44.0 % Monocytes (%) (Auto) 11.9 % Eosinophils (%) (Auto) 4.9 % Basophils (%) (Auto) 0.4 % Neutrophils # (Auto) 1.90 K/uL Lymphocytes # (Auto) 2.15 K/uL Monocytes # (Auto) 0.58 K/uL Eosinophils # (Auto) 0.24 K/uL Basophils # (Auto) 0.02 K/uL RDW Standard Deviation 46.2 fL RDW Coefficient of Variation 14.1 % Immature Granulocyte % (Auto) 0.0 % Immature Granulocyte # (Auto) 0.00 K/uL Sodium Level 138 mmol/L Potassium Level 4.5 mmol/L Chloride Level 107 mmol/L Carbon Dioxide Level 29 mmol/L Anion Gap 2.0 mmol/L Blood Urea Nitrogen 12 mg/dl Creatinine 0.89 mg/dl Est Creatinine Clear Calc Drug Dose 81.6 ml/min Estimated GFR () 85.2 Estimated GFR (Non- 73.5 BUN/Creatinine Ratio 13.4 Random Glucose 96 mg/dl Lactic Acid Level 1.0 mmol/L Calcium Level 8.5 mg/dl Magnesium Level 2.1 mg/dl Valproic Acid (Depakene) Level 22 mcg/ml Assessment & Plan URINARY RETENTION Urology consulted. Urinary retention attributed to amitriptyline and hyoscyamine. Improved. ABDOMINAL PAIN / NAUSEA GI consulted. S/P Neel-en-Y gastric bypass. Receiving ciprofloxacin and metronidazole for suspected diverticulitis. EGD planned for tomorrow. MIGRAINE HEADACHES Amitriptyline discontinued due to urinary retention. Continue propranolol and trazodone. PSORIATIC ARTHRITIS Etanercept on hold. HYPOTHYROIDISM Continue levothyroxine. VTE PROPHYLAXIS SQ enoxaparin. Ambulate. DISPOSITION Expected discharge to home. Internal Medicine follow-up with Dr. Shell Pinon. . Current Inpatient Medications: Current Inpatient Medications Medications (Trade) Dose Ordered Sig/Monalisa Route Start Time Stop Time Status Last Admin Dose Admin Enoxaparin Sodium (Lovenox Inj) 40 mg DAILY SQ 12/27/17 09:00 01/26/18 08:59 01/01/18 08:12 40 MG Acetaminophen (Tylenol Tab) 650 mg Q4H PRN PO 12/26/17 19:00 01/25/18 18:59 12/26/17 23:30 650 MG Polyethylene (Miralax Powder Packet) 17 gm DAILY PRN PO 12/26/17 19:00 01/25/18 18:59 12/28/17 07:26 17 GM Ondansetron HCl (Zofran Inj) 4 mg Q6H PRN IV 12/26/17 19:00 01/25/18 18:59 01/01/18 10:45 4 MG Amitriptyline HCl (Elavil Tab) 30 mg HS PO 12/26/17 21:00 01/25/18 20:59 12/31/17 22:40 30 MG Duloxetine HCl (Cymbalta Cap) 60 mg DAILY PO 12/27/17 09:00 5/19/18 08:59 01/01/18 08:10 60 MG Levothyroxine Sodium (Synthroid Tab) 25 mcg DAILYBB PO 12/27/17 06:30 01/26/18 06:59 01/01/18 05:51 25 MCG Pantoprazole Sodium (Protonix Tab) 40 mg BID PO 12/26/17 21:00 01/25/18 20:59 01/01/18 08:11 40 MG Trazodone HCl (Desyrel Tab) 100 mg HS PO 12/26/17 21:00 01/25/18 20:59 12/31/17 22:40 100 MG Magnesium Oxide (Mag-Ox Tab) 400 mg DAILY PO 12/27/17 09:00 01/26/18 08:59 01/01/18 08:11 400 MG Lactobacillus Acidophilus (Floranex Tab) 1 tab TIDM PO 12/27/17 08:00 01/26/18 07:59 01/01/18 12:05 1 TAB Tramadol HCl (Ultram Tab) not relieved by tylenol @ Q6H PRN PO 12/27/17 01:00 01/26/18 00:59 01/01/18 10:45 50 MG Morphine Sulfate (MoRPHine SULFATE INJ) 4 mg Q4H PRN IV 12/27/17 09:30 01/10/18 09:29 01/01/18 12:10 4 MG Metoclopramide HCl (Reglan Inj) 10 mg Q6H PRN IV. 12/27/17 18:30 01/26/18 18:29 01/01/18 12:10 10 MG Senna/Docusate Sodium (Senokot S Tab) 1 tab QAM PO 12/28/17 09:00 01/27/18 08:59 01/01/18 08:10 1 TAB Magnesium Hydroxide (Milk Of Magnesia Susp) 30 ml Q6H PRN PO 12/28/17 07:30 01/27/18 07:29 Bisacodyl (Dulcolax Supp) 10 mg DAILY PRN [place] 12/28/17 07:30 01/27/18 07:29 Propranolol HCl (Inderal La Cap) 60 mg HS PO 12/28/17 21:00 01/26/18 08:59 12/31/17 20:25 60 MG Promethazine HCl 12.5 mg/Sodium Chloride 50.5 ml @ 204 mls/hr Q6H PRN IV 12/28/17 18:15 01/27/18 18:14 12/31/17 22:40 204 MLS/HR Lidocaine (Lidoderm Patch 5%) 1 patch QAM TD 12/29/17 09:00 01/28/18 08:59 01/01/18 08:10 1 PATCH Miscellaneous (Remove Lidoderm Patch) 1 ea DAILY@21 N/A 12/28/17 21:00 01/27/18 20:59 12/31/17 20:25 1 EA Cyclobenzaprine HCl (Flexeril Tab) 5 mg BID PRN PO 12/28/17 18:15 01/27/18 18:14 Hydromorphone HCl (Dilaudid Inj) 0.5 mg Q6H PRN IV 12/28/17 18:15 01/11/18 18:14 12/31/17 22:41 0.5 MG Divalproex Sodium (Depakote Extended Rel Tab) 250 mg HS PO 12/29/17 21:00 01/28/18 20:59 12/31/17 20:25 250 MG Ciprofloxacin/ Dextrose 400 mg/ Prmx 200 ml @ 100 mls/hr Q12 IV 12/29/17 21:00 01/08/18 20:59 01/01/18 08:06 100 MLS/HR Metronidazole 500 mg/Prmx 100 ml @ 100 mls/hr Q8 IV 12/29/17 19:00 01/08/18 18:59 01/01/18 13:55 100 MLS/HR Gabapentin (Neurontin Cap) 300 mg TID PO 01/01/18 14:00 01/31/18 13:59 01/01/18 13:54 300 MG
[2018-01-01] MEDS: AMITRIPTYLINE HCL 10 MG TAB PO SCH (21:31)
[2018-01-01] MEDS: HYDROmorphone INJ 0.5 MG/0.5 ML SYR IV PRN (21:31)
[2018-01-01] MEDS: DIVALPROEX 250 MG EXTENDED REL TAB PO SCH (21:31)
[2018-01-01] MEDS: PROPRANOLOL HCL 60 MG LA CAP PO SCH (21:32)
[2018-01-01] MEDS: TRAZODONE HCL 100 MG TAB PO SCH (21:32)
[2018-01-02] VITALS (7 sets, daily range): BP systolic 97–117; BP diastolic 51–78; PULSE 62–86; TEMP 36.4–37.2; O2SAT 90–95
[2018-01-02] MEDS: PROMETHAZINE HCL INJ 12.5 MG in SODIUM CHLORIDE 0.9% 50ML 50 ML IV PRN ×3 (00:29→18:48)
[2018-01-02] MEDS: METRONIDAZOLE / NSS 500 MG in PREMIXED NSS 100 ML IV SCH ×3 (06:26→21:39)
[2018-01-02] MEDS: LEVOTHYROXINE 25 MCG TAB PO SCH (06:27)
[2018-01-02] MEDS: LACTOBACILLUS ACIDOPHILUS (FLORANEX) TAB PO SCH ×3 (07:32→16:25)
[2018-01-02] MEDS: DOCUSATE SODIUM/SENNA 50/8.6MG TAB PO SCH (07:36)
[2018-01-02] MEDS: GABAPENTIN 300 MG CAP PO SCH ×3 (07:36→21:40)
[2018-01-02] MEDS: MAGNESIUM OXIDE 400 MG TAB PO SCH (07:36)
[2018-01-02] MEDS: PANTOprazole SOD 40 MG TAB PO SCH ×2 (07:36→21:42)
[2018-01-02] MEDS: DULOXETINE HCL 60 MG CAP PO SCH (07:36)
[2018-01-02] MEDS: CIPROFLOXACIN / D5W 400 MG in PREMIXED IN D5W 200 ML IV SCH ×2 (08:41→21:39)
[2018-01-02] MEDS: LIDODERM (LIDOCAINE) PATCH 5% TD SCH (08:41)
[2018-01-02] MEDS: HYDROmorphone INJ 0.5 MG/0.5 ML SYR IV PRN ×2 (08:49→18:48)
[2018-01-02] MEDS ORDERED: NURSING VERBAL MED ORDER ONE (09:15)
--- NOTE | 2018-01-02 14:14 | History & Physical Bridge Note ---
H&P Re-Evaluation Bridge Note: I have examined the patient, reviewed the History & Physical and in the interval since the performance of the History & Physical I have noted the following changes of clinical significance: No changes noted
[2018-01-02] MEDS ORDERED: LIDOCAINE HCL 2% 2 ML VIAL (20MG/ML) ONE (14:47)
[2018-01-02] MEDS ORDERED: PROPOFOL IV EMULSION 10 MG/ML 20 ML VIAL IV ONE (14:47)
--- NOTE | 2018-01-02 15:20 | Anesthesiology Progress Note ---
Anesthesia Post Op Note Date & Time Jan 02, 2018 at 15:19 Vital Signs Pain Intensity: 8 Vital Signs Past 12 Hours Date Time Temp Pulse Resp B/P (MAP) Pulse Ox O2 Delivery O2 Flow Rate FiO2 01/02/18 15:02 37.2 86 20 109/51 (70) 95 Room Air 01/02/18 15:00 74 20 107/63 (78) 95 01/02/18 14:50 71 20 107/63 (78) 01/02/18 14:03 36.4 63 20 118/77 (91) 01/02/18 07:50 Room Air 01/02/18 07:24 36.6 66 20 110/73 (85) 91 Room Air 69 110/75 (87) 71 117/78 (91) 01/02/18 05:00 36.5 64 18 104/67 (79) 94 Room Air Notes Mental Status: alert / awake / arousable, participated in evaluation Pt Amnestic to Procedure: Yes Nausea / Vomiting: adequately controlled Pain: adequately controlled Airway Patency, RR, SpO2: stable & adequate BP & HR: stable & adequate Hydration State: stable & adequate Anesthetic Complications: no major complications apparent
[2018-01-02] MEDS: ENOXAPARIN 40 MG/0.4 ML SYR SQ SCH (16:21)
[2018-01-02] MEDS: ONDANSETRON INJ 2 MG/ML 2 ML VIAL IV PRN ×2 (16:24→23:42)
[2018-01-02] MEDS: TRAMADOL HCL 50 MG TAB PO PRN ×2 (16:25→23:42)
--- NOTE | 2018-01-02 20:29 | Progress Note ---
Medicine Progress Note Date & Time of Visit: Jan 02, 2018 at 16:40 . Subjective CC: Follow-up visit for abdominal pain, urinary retention, other problems. HPI: EGD performed this afternoon. Ongoing nausea, no vomiting. Ongoing left-sided abdominal pain. No diarrhea. Voiding without difficulty. Severe migraine headache. ROS: General- no fever, no chills Resp- no cough; no shortness of breath Cardiac- no chest pain GI- as noted above in HPI - as noted above in HPI . Objective Last 8 Hrs Date Time Temp Pulse Resp B/P (MAP) Pulse Ox O2 Delivery O2 Flow Rate FiO2 01/02/18 15:55 36.5 62 20 114/71 (85) 95 Room Air 01/02/18 15:10 72 20 117/57 (77) 96 01/02/18 15:02 37.2 86 20 109/51 (70) 95 Room Air 01/02/18 15:00 74 20 107/63 (78) 95 01/02/18 14:50 71 20 107/63 (78) 01/02/18 14:03 36.4 63 20 118/77 (91) Physical Exam: General- lying in bed; no distress Lungs- clear to auscultation; no respiratory distress Cardiovascular- RRR; I/ systolic murmur at base; no gallop; no JVD; no pretibial edema Abdomen- hyperactive bowel sounds, slightly distended, soft, mild tenderness left abdomen without rebound or guarding Extremities- no cyanosis; no calf tenderness Neuro- alert, oriented Skin- warm & dry . Assessment & Plan URINARY RETENTION Urology consulted. Urinary retention attributed to amitriptyline and hyoscyamine which were discontinued. Improved. ABDOMINAL PAIN / NAUSEA GI consulted. S/P Neel-en-Y gastric bypass. Receiving ciprofloxacin and metronidazole for suspected diverticulitis. EGD performed today-results pending. MIGRAINE HEADACHES Amitriptyline discontinued due to urinary retention. Continue propranolol and trazodone. PSORIATIC ARTHRITIS Etanercept on hold. HYPOTHYROIDISM Continue levothyroxine. VTE PROPHYLAXIS SQ enoxaparin. Ambulate. DISPOSITION Expected discharge to home. Internal Medicine follow-up with Dr. Shell Pinon. . Current Inpatient Medications: Current Inpatient Medications Medications (Trade) Dose Ordered Sig/Monalisa Route Start Time Stop Time Status Last Admin Dose Admin Enoxaparin Sodium (Lovenox Inj) 40 mg DAILY SQ 4/19/18 09:00 01/26/18 08:59 Future hold 01/01/18 08:12 40 MG Acetaminophen (Tylenol Tab) 650 mg Q4H PRN PO 12/26/17 19:00 01/25/18 18:59 12/26/17 23:30 650 MG Polyethylene (Miralax Powder Packet) 17 gm DAILY PRN PO 12/26/17 19:00 01/25/18 18:59 12/28/17 07:26 17 GM Ondansetron HCl (Zofran Inj) 4 mg Q6H PRN IV 12/26/17 19:00 01/25/18 18:59 01/02/18 16:24 4 MG Amitriptyline HCl (Elavil Tab) 30 mg HS PO 12/26/17 21:00 01/25/18 20:59 01/01/18 21:31 30 MG Duloxetine HCl (Cymbalta Cap) 60 mg DAILY PO 12/27/17 09:00 01/26/18 08:59 01/01/18 08:10 60 MG Levothyroxine Sodium (Synthroid Tab) 25 mcg DAILYBB PO 12/27/17 06:30 01/26/18 06:59 01/01/18 05:51 25 MCG Pantoprazole Sodium (Protonix Tab) 40 mg BID PO 12/26/17 21:00 01/25/18 20:59 01/01/18 21:32 40 MG Trazodone HCl (Desyrel Tab) 100 mg HS PO 12/26/17 21:00 01/25/18 20:59 01/01/18 21:32 100 MG Magnesium Oxide (Mag-Ox Tab) 400 mg DAILY PO 12/27/17 09:00 01/26/18 08:59 01/01/18 08:11 400 MG Lactobacillus Acidophilus (Floranex Tab) 1 tab TIDM PO 12/27/17 08:00 01/26/18 07:59 01/02/18 16:25 1 TAB Tramadol HCl (Ultram Tab) not relieved by tylenol @ Q6H PRN PO 12/27/17 01:00 01/26/18 00:59 01/02/18 16:25 50 MG Morphine Sulfate (MoRPHine SULFATE INJ) 4 mg Q4H PRN IV 12/27/17 09:30 5/3/18 09:29 01/01/18 16:59 4 MG Metoclopramide HCl (Reglan Inj) 10 mg Q6H PRN IV. 12/27/17 18:30 01/26/18 18:29 01/01/18 21:41 10 MG Senna/Docusate Sodium (Senokot S Tab) 1 tab QAM PO 12/28/17 09:00 01/27/18 08:59 01/01/18 08:10 1 TAB Magnesium Hydroxide (Milk Of Magnesia Susp) 30 ml Q6H PRN PO 12/28/17 07:30 01/27/18 07:29 Bisacodyl (Dulcolax Supp) 10 mg DAILY PRN RI 12/28/17 07:30 01/27/18 07:29 Propranolol HCl (Inderal La Cap) 60 mg HS PO 12/28/17 21:00 01/26/18 08:59 01/01/18 21:32 60 MG Promethazine HCl 12.5 mg/Sodium Chloride 50.5 ml @ 204 mls/hr Q6H PRN IV 12/28/17 18:15 01/27/18 18:14 01/02/18 18:48 204 MLS/HR Lidocaine (Lidoderm Patch 5%) 1 patch QAM TD 12/29/17 09:00 01/28/18 08:59 01/02/18 08:41 1 PATCH Miscellaneous (Remove Lidoderm Patch) 1 ea DAILY@21 N/A 12/28/17 21:00 01/27/18 20:59 01/01/18 21:33 1 EA Cyclobenzaprine HCl (Flexeril Tab) 5 mg BID PRN PO 12/28/17 18:15 01/27/18 18:14 Hydromorphone HCl (Dilaudid Inj) 0.5 mg Q6H PRN IV 12/28/17 18:15 01/11/18 18:14 01/02/18 18:48 0.5 MG Divalproex Sodium (Depakote Extended Rel Tab) 250 mg HS PO 12/29/17 21:00 01/28/18 20:59 01/01/18 21:31 250 MG Ciprofloxacin/ Dextrose 400 mg/ Prmx 200 ml @ 100 mls/hr Q12 IV 12/29/17 21:00 01/08/18 20:59 01/02/18 08:41 100 MLS/HR Metronidazole 500 mg/Prmx 100 ml @ 100 mls/hr Q8 IV 12/29/17 19:00 01/08/18 18:59 01/02/18 13:11 100 MLS/HR Gabapentin (Neurontin Cap) 300 mg TID PO 01/01/18 14:00 01/31/18 13:59 01/01/18 21:33 300 MG
[2018-01-02] MEDS: PROPRANOLOL HCL 60 MG LA CAP PO SCH (21:41)
[2018-01-02] MEDS: DIVALPROEX 250 MG EXTENDED REL TAB PO SCH (21:41)
[2018-01-02] MEDS: AMITRIPTYLINE HCL 10 MG TAB PO SCH (21:41)
[2018-01-02] MEDS: TRAZODONE HCL 100 MG TAB PO SCH (21:42)
[2018-01-02] MEDS: POLYETHYLENE (MIRALAX) 17 GM PACK PO PRN (21:53)
[2018-01-03] MEDS: HYDROmorphone INJ 0.5 MG/0.5 ML SYR IV PRN ×2 (01:12→08:37)
[2018-01-03] MEDS: LEVOTHYROXINE 25 MCG TAB PO SCH (06:19)
[2018-01-03] MEDS: METRONIDAZOLE / NSS 500 MG in PREMIXED NSS 100 ML IV SCH ×2 (06:19→13:40)
[2018-01-03] MEDS: ONDANSETRON INJ 2 MG/ML 2 ML VIAL IV PRN (07:31)
[2018-01-03] MEDS: POLYETHYLENE (MIRALAX) 17 GM PACK PO PRN (07:35)
[2018-01-03] MEDS: DOCUSATE SODIUM/SENNA 50/8.6MG TAB PO SCH (07:35)
[2018-01-03] MEDS: TRAMADOL HCL 50 MG TAB PO PRN (07:35)
[2018-01-03] MEDS: LACTOBACILLUS ACIDOPHILUS (FLORANEX) TAB PO SCH ×2 (07:35→11:34)
[2018-01-03] MEDS: MAGNESIUM OXIDE 400 MG TAB PO SCH (07:35)
[2018-01-03] MEDS: PANTOprazole SOD 40 MG TAB PO SCH (07:36)
[2018-01-03] MEDS: DULOXETINE HCL 60 MG CAP PO SCH (07:36)
[2018-01-03] MEDS: GABAPENTIN 300 MG CAP PO SCH ×2 (07:36→13:40)
[2018-01-03] MEDS: LIDODERM (LIDOCAINE) PATCH 5% TD SCH (07:37)
[2018-01-03 08:00] VITALS: BP 97/65; PULSE 61; TEMP 36.6; O2SAT 92
[2018-01-03 08:20] LABS: BASO % 0.7 %; BASO ABS # 0.04 K/uL (0-0.2); EOS % 5.2 %; EOS ABS # 0.28 K/uL (0-0.5); HEMATOCRIT 33.2 % (37-47); IG# 0.01 K/uL (0.00-0.02); LYMPH % 40.4 %; LYMPH ABS # 2.19 K/uL (1.2-3.4); MEAN CELL VOLUME 90.2 fL (80-100); MEAN CORPUSCULAR HEMOGLOBIN 29.9 pg (25-34); MEAN CORPUSCULAR HGB CONC 33.1 g/dl (32-36); MEAN PLATELET VOLUME 9.1 fL (7.4-10.4); MONO % 12.2 %; MONO ABS # 0.66 K/uL (0.11-0.59); NEUT % 41.3 %; NEUT ABS # 2.24 K/uL (1.4-6.5); PLATELET COUNT 230 K/uL (130-400); RED CELL DISTRIBUTION WIDTH CV 14.6 % (11.5-14.5); RED CELL DISTRIBUTION WIDTH SD 47.7 fL (36.4-46.3); WHITE BLOOD COUNT 5.42 K/uL (4.8-10.8)
[2018-01-03] MEDS: CIPROFLOXACIN / D5W 400 MG in PREMIXED IN D5W 200 ML IV SCH (08:37)
[2018-01-03 08:59] LABS: CALCIUM 8.1 mg/dl (8.5-10.1); CREATININE 0.94 mg/dl (0.60-1.20); POTASSIUM 4.5 mmol/L (3.5-5.1)
[2018-01-03] MEDS: ENOXAPARIN 40 MG/0.4 ML SYR SQ SCH (09:40)
[2018-01-03] MEDS: PROMETHAZINE HCL INJ 12.5 MG in SODIUM CHLORIDE 0.9% 50ML 50 ML IV PRN (09:40)
[2018-01-03] MEDS ORDERED: FUROSEMIDE INJ 20 MG in SYRINGE 0 ML IV ONE (09:45)
--- NOTE | 2018-01-03 11:35 | GI REPORT ---
Patient Name: Gladis Link Procedure Date: 01/02/2018 2:12 PM Date of : 1965 Admit Type: Inpatient Age: 52 Gender: Female Attending MD: Nargis Elmore MD Procedure: Upper GI endoscopy Providers: Nargis Elmore MD, Rama Chandra MD Referring MD: Tano Perry Indications: Epigastric abdominal pain Medicines: Propofol per Anesthesia Complications: No immediate complications. Estimated Blood Loss: Minimal. Estimated blood loss: none. Procedure: Pre-Anesthesia Assessment: - Patient identification and proposed procedure were verified prior to the procedure by the physician and the nurse. The procedure was verified in the pre-procedure area. - Prior to the procedure, a History and Physical was performed, and patient medications, allergies and sensitivities were reviewed. The patient's tolerance of previous anesthesia was reviewed. - The risks and benefits of the procedure and the sedation options and risks were discussed with the patient. All questions were answered and informed consent was obtained. - ASA Grade Assessment: III - A patient with severe systemic disease. After obtaining informed consent, the endoscope was passed under direct vision. Throughout the procedure, the patient's blood pressure, pulse, and oxygen saturations were monitored continuously. The scope was introduced through the mouth, and advanced to the second part of duodenum. The upper GI endoscopy was accomplished without difficulty. The patient tolerated the procedure well. Findings: The examined esophagus was normal. Evidence of a Neel-en-Y gastrojejunostomy was found. This was traversed. The [id number] limb was characterized by healthy appearing mucosa. Two sutures were noted in the gastric pouch- these were attempted to be removed but it was unsuccessful. The examined jejunum was normal. Impression: - Normal esophagus. - Neel-en-Y gastrojejunostomy with health appearance. Two sutures noted in the gastric pouch- unable to be removed endoscopically. Small erosion near one of the suture sites. - Normal examined jejunum. - No specimens collected. Recommendation: - Continue PPI as currently taking. - Would consider other etiology for her abdominal symptoms including functional abdominal pain. - Return patient to [facility] for [facility] care. Jocelyne Mcmahan MD 01/03/2018 9:37:52 AM This report has been signed electronically. Rama Chandra MD Note Initiated On: 01/02/2018 2:12 PM Number of Addenda: 0 I attest to the content of the Intraoperative Record and orders documented therein, exceptions below {[id number]}
--- NOTE | 2018-01-03 12:25 | Gastroenterology Progress Note ---
Progress Note Date of Service: Jan 03, 2018 Subjective Pt evaluation today including: conversation w/ patient, physical exam, chart review, lab review, review of inpatient medication list Pt reports tolerating food better today, still having some LLQ abd pain but not as much and not as nauseous. Review of Systems Constitutional: No fever, No chills Respiratory: No cough, No shortness of breath Cardiac: No chest pain Abdomen: + see HPI, + pain, + nausea, No vomiting Medications Current Inpatient Medications Medications (Trade) Dose Ordered Sig/Monalisa Route Start Time Stop Time Status Last Admin Dose Admin Enoxaparin Sodium (Lovenox Inj) 40 mg DAILY SQ 12/27/17 09:00 01/26/18 08:59 Future hold 01/03/18 09:40 40 MG Acetaminophen (Tylenol Tab) 650 mg Q4H PRN PO 12/26/17 19:00 01/25/18 18:59 12/26/17 23:30 650 MG Polyethylene (Miralax Powder Packet) 17 gm DAILY PRN PO 12/26/17 19:00 01/25/18 18:59 01/03/18 07:35 17 GM Ondansetron HCl (Zofran Inj) 4 mg Q6H PRN IV 12/26/17 19:00 01/25/18 18:59 01/03/18 07:31 4 MG Amitriptyline HCl (Elavil Tab) 30 mg HS PO 12/26/17 21:00 01/25/18 20:59 01/02/18 21:41 30 MG Duloxetine HCl (Cymbalta Cap) 60 mg DAILY PO 12/27/17 09:00 01/26/18 08:59 01/03/18 07:36 60 MG Levothyroxine Sodium (Synthroid Tab) 25 mcg DAILYBB PO 12/27/17 06:30 01/26/18 06:59 01/03/18 06:19 25 MCG Pantoprazole Sodium (Protonix Tab) 40 mg BID PO 12/26/17 21:00 01/25/18 20:59 01/03/18 07:36 40 MG Trazodone HCl (Desyrel Tab) 100 mg HS PO 12/26/17 21:00 01/25/18 20:59 01/02/18 21:42 100 MG Magnesium Oxide (Mag-Ox Tab) 400 mg DAILY PO 12/27/17 09:00 01/26/18 08:59 01/03/18 07:35 400 MG Lactobacillus Acidophilus (Floranex Tab) 1 tab TIDM PO 12/27/17 08:00 01/26/18 07:59 01/03/18 11:34 1 TAB Tramadol HCl (Ultram Tab) not relieved by tylenol @ Q6H PRN PO 12/27/17 01:00 01/26/18 00:59 01/03/18 07:35 50 MG Morphine Sulfate (MoRPHine SULFATE INJ) 4 mg Q4H PRN IV 12/27/17 09:30 01/10/18 09:29 01/01/18 16:59 4 MG Metoclopramide HCl (Reglan Inj) 10 mg Q6H PRN IV. 12/27/17 18:30 01/26/18 18:29 01/01/18 21:41 10 MG Senna/Docusate Sodium (Senokot S Tab) 1 tab QAM PO 12/28/17 09:00 01/27/18 08:59 01/03/18 07:35 1 TAB Magnesium Hydroxide (Milk Of Magnesia Susp) 30 ml Q6H PRN PO 12/28/17 07:30 01/27/18 07:29 Bisacodyl (Dulcolax Supp) 10 mg DAILY PRN CA 12/28/17 07:30 01/27/18 07:29 Propranolol HCl (Inderal La Cap) 60 mg HS PO 12/28/17 21:00 01/26/18 08:59 01/02/18 21:41 60 MG Promethazine HCl 12.5 mg/Sodium Chloride 50.5 ml @ 204 mls/hr Q6H PRN IV 12/28/17 18:15 01/27/18 18:14 01/03/18 09:40 204 MLS/HR Lidocaine (Lidoderm Patch 5%) 1 patch QAM TD 12/29/17 09:00 01/28/18 08:59 01/03/18 07:37 1 PATCH Miscellaneous (Remove Lidoderm Patch) 1 ea DAILY@21 N/A 12/28/17 21:00 01/27/18 20:59 01/02/18 21:39 1 EA Cyclobenzaprine HCl (Flexeril Tab) 5 mg BID PRN PO 12/28/17 18:15 01/27/18 18:14 Hydromorphone HCl (Dilaudid Inj) 0.5 mg Q6H PRN IV 12/28/17 18:15 01/11/18 18:14 01/03/18 08:37 0.5 MG Divalproex Sodium (Depakote Extended Rel Tab) 250 mg HS PO 12/29/17 21:00 01/28/18 20:59 01/02/18 21:41 250 MG Ciprofloxacin/ Dextrose 400 mg/ Prmx 200 ml @ 100 mls/hr Q12 IV 12/29/17 21:00 01/08/18 20:59 01/03/18 08:37 100 MLS/HR Metronidazole 500 mg/Prmx 100 ml @ 100 mls/hr Q8 IV 12/29/17 19:00 01/08/18 18:59 01/03/18 06:19 100 MLS/HR Gabapentin (Neurontin Cap) 300 mg TID PO 01/01/18 14:00 01/31/18 13:59 01/03/18 07:36 300 MG Objective Vital Signs Date Time Temp Pulse Resp B/P (MAP) Pulse Ox O2 Delivery O2 Flow Rate FiO2 01/03/18 08:00 36.6 61 18 97/65 (76) 92 Room Air 01/03/18 08:00 Room Air 01/03/18 00:00 Room Air 01/02/18 23:08 36.8 85 18 107/70 (82) 93 Room Air 102/67 (79) 117/68 (84) 01/02/18 16:55 95 Room Air 01/02/18 15:55 36.5 62 20 114/71 (85) 95 Room Air 01/02/18 15:10 72 20 117/57 (77) 96 01/02/18 15:02 37.2 86 20 109/51 (70) 95 Room Air 01/02/18 15:00 74 20 107/63 (78) 95 01/02/18 14:50 71 20 107/63 (78) 01/02/18 14:03 36.4 63 20 118/77 (91) Physical Exam General Appearance: WD/WN, no apparent distress Eyes: normal inspection, PERRL, EOMI Neck: supple, no JVD, trachea midline Respiratory/Chest: normal breath sounds, no respiratory distress, no accessory muscle use Cardiovascular: regular rate, rhythm, no gallop, no murmur Abdomen: normal bowel sounds, soft, + tenderness Extremities: normal inspection, no pedal edema, no calf tenderness Neurologic/Psych: alert, normal mood/affect, oriented x 3 Skin: normal color, no jaundice, no rash Laboratory Results Last 24 Hours Test 01/03/18 07:32 White Blood Count 5.42 K/uL Red Blood Count 3.68 M/uL Hemoglobin 11.0 g/dL Hematocrit 33.2 % Mean Corpuscular Volume 90.2 fL Mean Corpuscular Hemoglobin 29.9 pg Mean Corpuscular Hemoglobin Concent 33.1 g/dl Platelet Count 230 K/uL Mean Platelet Volume 9.1 fL Neutrophils (%) (Auto) 41.3 % Lymphocytes (%) (Auto) 40.4 % Monocytes (%) (Auto) 12.2 % Eosinophils (%) (Auto) 5.2 % Basophils (%) (Auto) 0.7 % Neutrophils # (Auto) 2.24 K/uL Lymphocytes # (Auto) 2.19 K/uL Monocytes # (Auto) 0.66 K/uL Eosinophils # (Auto) 0.28 K/uL Basophils # (Auto) 0.04 K/uL RDW Standard Deviation 47.7 fL RDW Coefficient of Variation 14.6 % Immature Granulocyte % (Auto) 0.2 % Immature Granulocyte # (Auto) 0.01 K/uL Sodium Level 142 mmol/L Potassium Level 4.5 mmol/L Chloride Level 109 mmol/L Carbon Dioxide Level 27 mmol/L Anion Gap 6.0 mmol/L Blood Urea Nitrogen 10 mg/dl Creatinine 0.94 mg/dl Est Creatinine Clear Calc Drug Dose 77.2 ml/min Estimated GFR () 79.7 Estimated GFR (Non- 68.8 BUN/Creatinine Ratio 10.4 Random Glucose 89 mg/dl Calcium Level 8.1 mg/dl Assessment and Plan Impression Patient is a 52 year old female admitted for urinary retention suspected to be from med uses (Amitrityline and Levsin) currently seen for L sided abd pain. Pt reports having nausea and L sided abd pain as soon as eating, and also associated w early satiety. Hx of Neel en Y gastric bypass, diverticulitis. So far imaging studies from CT scan w/o clear etiology of pt's abd pain. EGD on 01/02 showed healthy mucosa and anastomosis of Neel en Y bypass, but [address], removal attempted but unsuccessful. Plans - Continue Gabapentin 300mg TID for abd pain symptoms; will avoid antispasmodics given urinary retention hx. - From GI standpoint should be good for DC. We can f/u her in clinic for Gabapentin titration if needed and other med therapy for suspected functional abd pain symptoms.
--- NOTE | 2018-01-03 14:12 | Progress Note ---
Medicine Progress Note Date & Time of Visit: Jan 03, 2018 at 14:12. Subjective Doing well. No abdominal pain. Nausea improved. Tolerating diet. Would like to go home. . Objective Last 8 Hrs Date Time Temp Pulse Resp B/P (MAP) Pulse Ox O2 Delivery O2 Flow Rate FiO2 01/03/18 08:00 36.6 61 18 97/65 (76) 92 Room Air 01/03/18 08:00 Room Air Physical Exam: General- lno distress Lungs- clear to auscultation; no respiratory distress Cardiovascular- RRR; I/ systolic murmur at base; no gallop; no JVD; no pretibial edema Abdomen- + BS, soft, nontender Extremities- no cyanosis; no calf tenderness Neuro- alert, oriented Skin- warm & dry . Laboratory Results: Last 24 Hours Test 01/03/18 07:32 White Blood Count 5.42 K/uL Red Blood Count 3.68 M/uL Hemoglobin 11.0 g/dL Hematocrit 33.2 % Mean Corpuscular Volume 90.2 fL Mean Corpuscular Hemoglobin 29.9 pg Mean Corpuscular Hemoglobin Concent 33.1 g/dl Platelet Count 230 K/uL Mean Platelet Volume 9.1 fL Neutrophils (%) (Auto) 41.3 % Lymphocytes (%) (Auto) 40.4 % Monocytes (%) (Auto) 12.2 % Eosinophils (%) (Auto) 5.2 % Basophils (%) (Auto) 0.7 % Neutrophils # (Auto) 2.24 K/uL Lymphocytes # (Auto) 2.19 K/uL Monocytes # (Auto) 0.66 K/uL Eosinophils # (Auto) 0.28 K/uL Basophils # (Auto) 0.04 K/uL RDW Standard Deviation 47.7 fL RDW Coefficient of Variation 14.6 % Immature Granulocyte % (Auto) 0.2 % Immature Granulocyte # (Auto) 0.01 K/uL Sodium Level 142 mmol/L Potassium Level 4.5 mmol/L Chloride Level 109 mmol/L Carbon Dioxide Level 27 mmol/L Anion Gap 6.0 mmol/L Blood Urea Nitrogen 10 mg/dl Creatinine 0.94 mg/dl Est Creatinine Clear Calc Drug Dose 77.2 ml/min Estimated GFR () 79.7 Estimated GFR (Non- 68.8 BUN/Creatinine Ratio 10.4 Random Glucose 89 mg/dl Calcium Level 8.1 mg/dl Assessment & Plan URINARY RETENTION Urology consulted. Urinary retention attributed to amitriptyline and hyoscyamine. Amitriptyline dose reduced to 30 mg HS. Changed hyoscyamine frequency to no more than once a day for severe abdominal cramps. Improved. ABDOMINAL PAIN / NAUSEA GI consulted. S/P Neel-en-Y gastric bypass. Receiving ciprofloxacin and metronidazole for suspected diverticulitis. EGD performed - no acute findings. GI started gabapentin for abdominal pain. Symptoms improved. Tolerating diet. MIGRAINE HEADACHES Amitriptyline dose reduced to 30 mg HS due to urinary retention. Divalproex sodium 250 mg HS started by Neurology. Continue propranolol and trazodone. PSORIATIC ARTHRITIS Resume etanercept as outpatient. HYPOTHYROIDISM Continue levothyroxine. VTE PROPHYLAXIS SQ enoxaparin. Ambulate. DISPOSITION Discharge to home. Internal Medicine follow-up with Dr. Shell Pinon. . Current Inpatient Medications: Current Inpatient Medications Medications (Trade) Dose Ordered Sig/Monalisa Route Start Time Stop Time Status Last Admin Dose Admin Enoxaparin Sodium (Lovenox Inj) 40 mg DAILY SQ 12/27/17 09:00 01/26/18 08:59 Future hold 01/03/18 09:40 40 MG Acetaminophen (Tylenol Tab) 650 mg Q4H PRN PO 12/26/17 19:00 01/25/18 18:59 12/26/17 23:30 650 MG Polyethylene (Miralax Powder Packet) 17 gm DAILY PRN PO 12/26/17 19:00 01/25/18 18:59 01/03/18 07:35 17 GM Ondansetron HCl (Zofran Inj) 4 mg Q6H PRN IV 12/26/17 19:00 01/25/18 18:59 01/03/18 07:31 4 MG Amitriptyline HCl (Elavil Tab) 30 mg HS PO 12/26/17 21:00 01/25/18 20:59 01/02/18 21:41 30 MG Duloxetine HCl (Cymbalta Cap) 60 mg DAILY PO 12/27/17 09:00 01/26/18 08:59 01/03/18 07:36 60 MG Levothyroxine Sodium (Synthroid Tab) 25 mcg DAILYBB PO 12/27/17 06:30 01/26/18 06:59 01/03/18 06:19 25 MCG Pantoprazole Sodium (Protonix Tab) 40 mg BID PO 12/26/17 21:00 01/25/18 20:59 01/03/18 07:36 40 MG Trazodone HCl (Desyrel Tab) 100 mg HS PO 12/26/17 21:00 01/25/18 20:59 01/02/18 21:42 100 MG Magnesium Oxide (Mag-Ox Tab) 400 mg DAILY PO 12/27/17 09:00 01/26/18 08:59 01/03/18 07:35 400 MG Lactobacillus Acidophilus (Floranex Tab) 1 tab TIDM PO 12/27/17 08:00 01/26/18 07:59 01/03/18 11:34 1 TAB Tramadol HCl (Ultram Tab) not relieved by tylenol @ Q6H PRN PO 12/27/17 01:00 01/26/18 00:59 01/03/18 07:35 50 MG Morphine Sulfate (MoRPHine SULFATE INJ) 4 mg Q4H PRN IV 12/27/17 09:30 01/10/18 09:29 01/01/18 16:59 4 MG Metoclopramide HCl (Reglan Inj) 10 mg Q6H PRN IV. 12/27/17 18:30 01/26/18 18:29 01/01/18 21:41 10 MG Senna/Docusate Sodium (Senokot S Tab) 1 tab QAM PO 12/28/17 09:00 01/27/18 08:59 01/03/18 07:35 1 TAB Magnesium Hydroxide (Milk Of Magnesia Susp) 30 ml Q6H PRN PO 12/28/17 07:30 01/27/18 07:29 Bisacodyl (Dulcolax Supp) 10 mg DAILY PRN [place] 12/28/17 07:30 01/27/18 07:29 Propranolol HCl (Inderal La Cap) 60 mg HS PO 12/28/17 21:00 01/26/18 08:59 01/02/18 21:41 60 MG Promethazine HCl 12.5 mg/Sodium Chloride 50.5 ml @ 204 mls/hr Q6H PRN IV 12/28/17 18:15 01/27/18 18:14 01/03/18 09:40 204 MLS/HR Lidocaine (Lidoderm Patch 5%) 1 patch QAM TD 12/29/17 09:00 01/28/18 08:59 01/03/18 07:37 1 PATCH Miscellaneous (Remove Lidoderm Patch) 1 ea DAILY@21 N/A 12/28/17 21:00 01/27/18 20:59 01/02/18 21:39 1 EA Cyclobenzaprine HCl (Flexeril Tab) 5 mg BID PRN PO 12/28/17 18:15 01/27/18 18:14 Hydromorphone HCl (Dilaudid Inj) 0.5 mg Q6H PRN IV 12/28/17 18:15 01/11/18 18:14 01/03/18 08:37 0.5 MG Divalproex Sodium (Depakote Extended Rel Tab) 250 mg HS PO 12/29/17 21:00 01/28/18 20:59 01/02/18 21:41 250 MG Ciprofloxacin/ Dextrose 400 mg/ Prmx 200 ml @ 100 mls/hr Q12 IV 12/29/17 21:00 01/08/18 20:59 01/03/18 08:37 100 MLS/HR Metronidazole 500 mg/Prmx 100 ml @ 100 mls/hr Q8 IV 12/29/17 19:00 01/08/18 18:59 01/03/18 13:40 100 MLS/HR Gabapentin (Neurontin Cap) 300 mg TID PO 01/01/18 14:00 01/31/18 13:59 01/03/18 13:40 300 MG
[2018-01-03] MEDS ORDERED: NRN300 PO (14:17)
[2018-01-03] MEDS ORDERED: DPKSR250 PO (14:17)
--- NOTE | 2018-01-03 14:22 | Discharge Instructions ---
Discharge Instructions Date of Service Jan 03, 2018. Admission Reason for Admission: abdominal pain . Discharge Discharge Diagnosis / Problem: trouble emptying bladder Discharge Goals Goal(s): Decrease discomfort, Improve disease control Activity Recommendations Activity Limitations: resume your previous activity . Instructions / Follow-Up Instructions / Follow-Up APPOINTMENTS: INTERNAL MEDICINE 01/07/2018 11:00 AM Shell Pinon MD OTHER INSTRUCTIONS: Amitriptyline (Elavil) and hyoscyamine (Levsin) can cause urinary retention. amitriptyline (Elavil) dose decreased to 30 mg at bedtime. hyoscyamine (Levsin) dose changed to as needed for severe cramps no more than once a day Dr. Rowell started divalproex sodium (Depakote) 250 mg at bedtime for migraines. Gastroenterologists started gabapentin (Neurontin) 300 mg 3 time a day for abdominal pain. Seek medical attention if you have: * temperature above 101 * chest pain or trouble breathing * abdominal pain, nausea, vomiting * diarrhea, dark stools or bloody stools * trouble urinating * any unanswered questions or concerns Call 911 if symptoms are severe. Call if you have any questions or problems. You can reach a [facility] hospitalist on duty at [facility] 24 hours a day by calling [phone]. Please take good care of yourself. Melvin Woods . Current Hospital Diet Patient's current hospital diet: Low Fiber Diet, Low Lactose Diet, Low Fat Diet Discharge Diet Recommended Diet: Regular Diet (continue your gastric bypass diet) Pending Studies Studies pending at discharge: no Medical Emergencies . Who to Call and When: Medical Emergencies: If at any time you feel your situation is an emergency, please call 911 immediately. . Non-Emergent Contact Non-Emergency issues call your: Primary Care Provider, Road Hogger Operator, Hospital Doctor, Neurologist . . "Provider Documentation" section prepared by Melvin Woods. .
[2018-01-03 14:24] VITALS: BP 97/65; PULSE 61; TEMP 36.6; O2SAT 92
--- NOTE | 2018-01-04 14:59 | Discharge Summary ---
Discharge Summary Date of Service Jan 04, 2018. Discharge Summary Admission Date: Dec 26, 2017 at 19:05 Discharge Date: Jan 03, 2018 Discharge Disposition: Home Principal Diagnosis: abdominal pain urinary retention . Secondary Diagnoses/Problems: Chronic and Resolved Medical Problems: (1) Clostridium difficile colitis Status: Resolved (2) Depression Status: Chronic (3) Edema Status: Chronic (4) GERD (gastroesophageal reflux disease) Status: Chronic (5) History diabetes mellitus Permanent Comment: improved after gastric bypass Status: Resolved (6) History of DVT (deep vein thrombosis) Status: Chronic (7) History of pulmonary embolism Permanent Comment: completed 6 months Coumadin therapy Status: Resolved (8) MINI (iron deficiency anemia) Status: Chronic (9) Migraine headache Status: Chronic (10) Psoriatic arthritis Status: Chronic (11) Sleep apnea Status: Chronic Surgical Problems: (1) H/O wisdom tooth extraction Status: Chronic (2) History of carpal tunnel surgery Status: Chronic (3) S/P hysterectomy Status: Chronic (4) Status post appendectomy Status: Chronic (5) Status post cholecystectomy Status: Chronic (6) Status post gastric bypass for obesity Status: Chronic (7) Status post total knee replacement Status: Chronic . Procedures: CT abdomen and pelvis EGD IV fluids IV meds . Consultations: GI Urology Neurology . Medication Reconciliation New Medications: Divalproex Sodium (Divalproex Sodium ER) 250 Mg Tabcr 250 MG PO HS, #30 TAB 5 Refills Gabapentin (Gabapentin) 300 Mg Cap 300 MG PO TID, #90 CAP 5 Refills Continued Medications: Albuterol Hfa (Ventolin Hfa) 200 Puffs/73346 Mcg Aers 2 PUFFS INH QID PRN for Shortness of Breath Amitriptyline HCl (Amitriptyline HCl) 10 Mg Tab 30 MG PO HS new instructions 01/03/18: take 3 pills (30 mg) at bedtime Duloxetine Hcl (Cymbalta) 60 Mg Cap 60 MG PO DAILY, CAP Ergocalciferol (Vitamin D 27196 Unit) 50,000 Unit Cap 96547 INTER.UNIT PO 2XWK TAKE THIS MEDICATION EVERY SUNDAY AND SUNDAY Etanercept (Enbrel Mini) 50 Mg/Ml Inj 50 MG INJ WK ADMINISTER EVERY SUNDAY Hyoscyamine Sulfate (Levsin) 0.125 Mg Tab 0.125 MG PO DAILY PRN for Abdominal Cramping new instructions 01/03/18: take only for severe intestinal cramping, no more than once a day Levothyroxine Sodium (Levothyroxine Sodium) 25 Mcg Tab 25 MCG PO DAILY TAKE THIS MEDICATION AT LEAST 30 MINUTES BEFORE BREAKFAST OR ANY OTHER MEDICATIONS Magnesium Oxide (Mg Supplement (Magnesium Oxide) 400 Mg Tab 400 MG PO DAILY Ondansetron Odt (Zofran Odt) 8 Mg Soltab 8 MG SL Q8 PRN for Nausea, TAB Pantoprazole (Pantoprazole Sodium) 40 Mg Tab 40 MG PO BID Probiotic Product (Probiotic) 1 Cap Cap 1 CAP PO TIDM Promethazine Hcl (Phenergan) 25 Mg Tab 25 MG PO Q8 PRN for Nausea Propranolol HCl (Propranolol HCl ER) 60 Mg Capcr 60 MG PO DAILY Riboflavin (Vitamin B-2) 100 Mg Tab 400 MG PO DAILY Sumatriptan Succinate (Sumatriptan Succinate) 50 Mg Tab 50 MG PO UD PRN for Migraine TAKE 1 TABLET AT ONSET OF HEADACHE MAY REPEAT IN 2 HOURS IF NEEDED.MAXIMUM OF 2 TABLETS IN 24 HOURS. Trazodone HCl (Trazodone HCl) 100 Mg Tab 100 MG PO HS Admission Information HPI (per Admitting provider): 52-year-old female who presents the ED with severe lower abdominal pain. Patient was seen in the ED on December 18 for nausea, vomiting, diarrhea. She reports she continues to not feel well from that ED visit. Today while out shopping, patient reports she had sudden onset of tunnel vision and subsequently passed out. When she came to she reports she had severe lower abdominal pain radiating into the left side of her groin. There is no reported seizure-like activity, tongue biting, loss of bowel or bladder function. No reported postictal-like symptoms. Patient reports she had 2 additional syncopal episodes yesterday as well. Patient reports she continues to feel nauseous and has a poor appetite. Over the past 3 days, she reports very minimal urine output. No further vomiting or diarrhea. She denies fever and chills. No chest pain or shortness of breath. In the ED, patient was found to be retaining 1 L of urine. Ferrari catheter was placed. Labs show a mildly low potassium at 3.2 and mildly elevated creatinine at 1.2. Patient was given IVF, potassium replacement, IV Phenergan, IV Zofran, and IV morphine. . Physical Exam (per Admitting): General Appearance: WD/WN, no apparent distress Head: normocephalic, atraumatic Eyes: normal inspection, EOMI, sclerae normal ENT: hearing grossly normal, + pertinent finding (Mucous membranes dry) Neck: supple, no JVD, trachea midline Respiratory/Chest: no respiratory distress, + decreased breath sounds ( Bilateral bases) Cardiovascular: regular rate, rhythm, no edema, normal peripheral pulses Abdomen/GI: normal bowel sounds, non tender, soft, no organomegaly Genitourinary - Female: + pertinent finding (Ferrari in place draining clear yellow urine) Back: no CVA tenderness Extremities/Musculoskelatal: normal inspection, no calf tenderness, normal capillary refill, no pedal edema Neurologic/Psych: no motor/sensory deficits, alert, normal mood/affect, oriented x 3 Skin: normal color, warm/dry Hospital Course URINARY RETENTION Presented with urinary retention and abdominal discomfort. Urology consulted. Urinary retention attributed to amitriptyline and hyoscyamine. Amitriptyline dose reduced to 30 mg HS. Changed hyoscyamine frequency to no more than once a day for severe abdominal cramps. Improved. ABDOMINAL PAIN / NAUSEA GI consulted. S/P Neel-en-Y gastric bypass. Received ciprofloxacin and metronidazole for possible diverticulitis, but not confirmed by CT. EGD performed - no acute findings. GI started gabapentin for abdominal pain. Symptoms improved. Tolerating diet. MIGRAINE HEADACHES Amitriptyline dose reduced to 30 mg HS due to urinary retention. Divalproex sodium 250 mg HS started by Neurology. Continue propranolol and trazodone. PSORIATIC ARTHRITIS Resume etanercept as outpatient. HYPOTHYROIDISM Continue levothyroxine. WEIGHT GAIN Review of records shows fluctuating wts over past few years, with gradual weight gain from 87 to 93 kg over the last year. Patient concerned about fluid retention, but did not have any significant edema. Received IV furosemide x 1. Weight gain could be related to amitriptyline or other meds. TSH 2.82 on 12/18/17. Follow. VTE PROPHYLAXIS SQ enoxaparin. Ambulate. DISPOSITION Discharge to home. Internal Medicine follow-up with Dr. Shell Pinon. . Total time spent on discharge = 40 min. This includes examination of the patient, discharge planning, medication reconciliation, and communication with other providers. . Discharge Instructions Date of Service Jan 03, 2018. Admission Reason for Admission: abdominal pain . Discharge Discharge Diagnosis / Problem: trouble emptying bladder Discharge Goals Goal(s): Decrease discomfort, Improve disease control Activity Recommendations Activity Limitations: resume your previous activity . Instructions / Follow-Up Instructions / Follow-Up APPOINTMENTS: INTERNAL MEDICINE 01/07/2018 11:00 AM Shell Pinon MD OTHER INSTRUCTIONS: Amitriptyline (Elavil) and hyoscyamine (Levsin) can cause urinary retention. amitriptyline (Elavil) dose decreased to 30 mg at bedtime. hyoscyamine (Levsin) dose changed to as needed for severe cramps no more than once a day Dr. Rowell started divalproex sodium (Depakote) 250 mg at bedtime for migraines. Gastroenterologists started gabapentin (Neurontin) 300 mg 3 time a day for abdominal pain. Seek medical attention if you have: * temperature above 101 * chest pain or trouble breathing * abdominal pain, nausea, vomiting * diarrhea, dark stools or bloody stools * trouble urinating * any unanswered questions or concerns Call 911 if symptoms are severe. Call if you have any questions or problems. You can reach a [facility] hospitalist on duty at [facility] 24 hours a day by calling [phone]. Please take good care of yourself. Melvin Woods . Current Hospital Diet Patient's current hospital diet: Low Fiber Diet, Low Lactose Diet, Low Fat Diet Discharge Diet Recommended Diet: Regular Diet (continue your gastric bypass diet) Pending Studies Studies pending at discharge: no Medical Emergencies . Who to Call and When: Medical Emergencies: If at any time you feel your situation is an emergency, please call 911 immediately. . Non-Emergent Contact Non-Emergency issues call your: Primary Care Provider, Quality Manager, Hospital Doctor, Neurologist . . "Provider Documentation" section prepared by Melvin Woods. .
--- NOTE | 2018-01-07 13:25 | EDITING REQUIRED CODING QUERY ---
PRESENT ON ADMISSION QUERY To promote full compliance with coding requirements relating to pateint care, physician participation is requested in all cases of assistant customer service manager uncertainty. Please assist us with the question(s) below: Please place an X within the parenthesis (x). The following diagnosis(es) listed in this patient's medical record require physician assistance to determine if they were present on admission (POA) or not. Please advise for each diagnosis whether it was present on admission, not present on admission, or if it was clinically undetermined. 1. Possible Diverticulitis (documented starting 12/28/17 through Discharge Summary) ( ) Present On Admission (x ) Not Present On Admission ( ) Clinically Undetermined Suspected, but not confirmed. Thank you Marilou Rolle *Definition of the present on admission (POA)-Present on admission is defined as present at the time the order for inpatient admission occurs. Conditions that develop during an outpatient encounter prior to a written order for inpatient admission (including emergency department, observation, or outpatient surgery) are considered present on admission.
[2018-01-07] MEDS ORDERED: TRIA37.5 PO (15:28)
[2018-01-07] MEDS ORDERED: AZIT-57 PO (15:28)
== END 2018-01-03 14:47 | disposition home or self-care (01) | DRG 392 ==
LOC: C.EDB 14:25 → C.MS2W 19:05 → ENRESERV 19:18
PROVIDERS: ADMIT Hospitalist; ATTEND Hospitalist
PROC: 0T9B70Z Drainage of Bladder with Drainage Device, Via Natural or Artificial Opening (ICD-10-PCS; principal; 2017-12-26)
PROC: 0DJ08ZZ Inspection of Upper Intestinal Tract, Via Natural or Artificial Opening Endoscopic (ICD-10-PCS; 2018-01-02)
DX: R10.32 Left lower quadrant pain (principal); N17.9 Acute kidney failure, unspecified; K57.92 Diverticulitis of intestine, part unspecified, without perforation or abscess without bleeding; R33.0 Drug induced retention of urine; T43.015A Adverse effect of tricyclic antidepressants, initial encounter; T44.3X5A Adverse effect of other parasympatholytics [anticholinergics and antimuscarinics] and spasmolytics, initial encounter; I95.0 Idiopathic hypotension; E87.6 Hypokalemia; R55 Syncope and collapse; G43.909 Migraine, unspecified, not intractable, without status migrainosus; L29.9 Pruritus, unspecified; T39.8X5A Adverse effect of other nonopioid analgesics and antipyretics, not elsewhere classified, initial encounter; R63.5 Abnormal weight gain; F32.9 Major depressive disorder, single episode, unspecified; K21.9 Gastro-esophageal reflux disease without esophagitis; E11.9 Type 2 diabetes mellitus without complications; L40.50 Arthropathic psoriasis, unspecified; K58.9 Irritable bowel syndrome, unspecified; E03.9 Hypothyroidism, unspecified; E66.9 Obesity, unspecified; Z51.81 Encounter for therapeutic drug level monitoring; Z79.899 Other long term (current) drug therapy; Z86.711 Personal history of pulmonary embolism; Z86.718 Personal history of other venous thrombosis and embolism; Z68.34 Body mass index [BMI] 34.0-34.9, adult; Z98.84 Bariatric surgery status; Z88.5 Allergy status to narcotic agent; Z88.1 Allergy status to other antibiotic agents; Z82.61 Family history of arthritis

== ENCOUNTER 2018-11-17 11:54 | Inpatient (IN) ==
[2018-11-17] MEDS ORDERED: PROCHLORPERAZINE 10 MG in SYRINGE 8 ML IV ONE (12:09)
[2018-11-17] MEDS ORDERED: DiphenhydrAMINE HCL 50 MG/ML VIAL IV STA (12:09)
[2018-11-17] MEDS ORDERED: SODIUM CHLORIDE 0.9% 1000ML 1,000 ML IV SCH (12:15)
[2018-11-17] MEDS ORDERED: PROCHLORPERAZINE 5 MG/ML 2 ML VIAL ONE (12:18)
--- NOTE | 2018-11-17 12:30 | XRay Report ---
XR chest 1V portable CLINICAL HISTORY: upper abd pain eval for pna pain COMPARISON STUDY: 07/27/2018 FINDINGS: The bones soft tissues and hemidiaphragms are normal. The cardiomediastinal silhouette is n ormal. The lungs are clear. The pulmonary vasculature is normal. IMPRESSION: Negative chest. The above report was generated using voice recognition software. It may contain grammatical, syntax or spelling errors. Electronically signed by: Collins Armando M.D. 11/17/2018 12:29 PM
[2018-11-17 12:33] LABS: Basophils # (auto) 0.04 K/uL (0-0.2); Basophils % (auto) 0.6 %; Eosinophils % (auto) 1.4 %; Hematocrit (blood only) 39.1 % (37-47); Hemoglobin 13.2 g/dL (12.0-16.0); Immature Granulocytes # (auto) 0.01 K/uL (0.00-0.02); Immature Granulocytes % (auto) 0.1 %; Lymphocytes # (auto) 2.74 K/uL (1.2-3.4); Mean Corpuscular Hgb Conc 33.8 g/dL (32-36); Mean Corpuscular Volume 86.1 fL (80-100); Monocytes # (auto) 0.66 K/uL (0.11-0.59); Monocytes % (auto) 9.4 %; Neutrophils # (auto) 3.48 K/uL (1.4-6.5); Neutrophils % (auto) 49.5 %; Platelet Count 324 K/uL (130-400); RDW Coefficient of Variation 14.6 % (11.5-14.5); RDW Standard Deviation 45.7 fL (36.4-46.3); Red Blood Count 4.54 M/uL (4.2-5.4); White Blood Count 7.03 K/uL (4.8-10.8)
--- NOTE | 2018-11-17 12:42 | CT Scan Report ---
CT head/brain wo con CT DOSE: 858.48 mGy.cm HISTORY: Mental status change syncope TECHNIQUE: Multiaxial CT images of the head were performed without the use of intravenous contrast. A dose lowering technique was utilized adhering to the principles of ALARA. Comparison: 02/14/2018 Findings: The paranasal sinuses and mastoid air cells are clear. No acute intracranial abnormality. S mall anterior left frontal meningioma unchanged from the prior exam. No acute intracranial hemorrhage . No midline shift. Impression: No acute intracranial abnormality. The above report was generated using voice recognition software. It may contain grammatical, syntax or spelling errors. Electronically signed by: Collins Armando M.D. 11/17/2018 12:41 PM
--- NOTE | 2018-11-17 12:45 | CT Scan Report ---
CT cervical spine wo con CT DOSE: HISTORY: Trauma fall eval for fx TECHNIQUE: Multiaxial CT images of the cervical spine were performed and reformatted in the sagittal and coronal plane without the use of contrast. A dose lowering technique was utilized adhering to th e principles of ALARA. COMPARISON: None. FINDINGS: No fractures. No subluxation. Prevertebral soft tissues and the C1-C2 interval are intact. No pneumothorax. IMPRESSION: No fractures within the cervical spine. Muscle spasm. The above report was generated using voice recognition software. It may contain grammatical, syntax or spelling errors. Electronically signed by: Collins Armando M.D. 11/17/2018 12:44 PM
[2018-11-17 12:49] LABS: Alanine Aminotransferase 27 U/L (12-78); Albumin Level 3.8 gm/dl (3.4-5.0); Aspartate Aminotransferase 19 U/L (15-37); BUN Creatinine Ratio 13.8 (10-20); Blood Urea Nitrogen 12 mg/dl (7-18); Carbon Dioxide 26 mmol/L (21-32); Chloride 107 mmol/L (98-107); Creatinine Clr Calc Pharmacy 84.1 ml/min; Est GFR (African American) 89.4; Est GFR (Non-African American) 77.1; Glucose 98 mg/dl (70-99); Magnesium 2.3 mg/dl (1.8-2.4); Potassium 4.3 mmol/L (3.5-5.1); Sodium 141 mmol/L (136-145)
[2018-11-17 13:00] LABS: Albumin Globulin Ratio 1.1 (0.9-2); Alkaline Phosphatase 157 U/L (45-117); Bilirubin,Total 0.4 mg/dl (0.2-1); Globulin 3.4 gm/dl (2.5-4.0); Total Protein 7.2 gm/dl (6.4-8.2); Troponin I < 0.015 ng/ml (0-0.045)
[2018-11-17] MEDS ORDERED: MAGNESIUM SULFATE / D5W 1 GM/100 ML BAG IV ONE (13:25)
[2018-11-17] MEDS ORDERED: PROMETHAZINE 12.5 MG/50.5 ML BAG IV STA (13:25)
[2018-11-17 13:54] LABS: Appearance Urine Clear (Clear); Bilirubin Urine Negative (Negative); Blood Urine Negative (Negative); Color Urine Yellow; Glucose Urine UA Negative (Negative); Ketones Urine Negative (Negative); Leukocyte Esterase Urine Negative (Negative); Nitrite Urine Negative (Negative); Protein Urine Negative (Negative); Specific Gravity Urine 1.011 (1.000-1.030); Urobilinogen Urine Negative (Negative)
--- NOTE | 2018-11-17 16:31 | History & Physical Report ---
Date of Service November 17, 2018 Assessment & Plan (1) Syncope: (2) Migraine: This is a 53-year-old female with a PMH of migraine headaches, depression and other medical problems listed below who presents after 3 syncopal episodes in the past 2 days. -History of complex migraine presentation including syncope and right upper extremity paresthesias -Followed closely by Dr. Rowell, with recent addition of Anjovy injection last month -Has been admitted in the past for extensive workup including MRI, CTA, EEG, cardio workup and LP which were all wnl -Head CT, cervical spine CT, CXR without acute abnormalities -Continue home medication including Depakote, propranolol, gabapentin, Imitrex as needed -Routine consult for neurology -Gentle IV fluids, orthostatic vitals, 2D echo -Pain control (avoiding narcotics if possible), anti-emetics (3) Upper abdominal pain: Endorses since yesterday. No leukocytosis or elevated lipase -Patient now hungry, will see if pain improves after eating -Consider further abdominal imaging if pain persists (4) Psoriatic arthritis: Continue Enbrel injection (5) Depression: Stable. Continue Wellbutrin, Cymbalta (6) GERD (gastroesophageal reflux disease): Continue PPI, H2 billie (7) Edema: Triamterene-HCTZ PRN Code status: FULL PCP: Kathrin Dispo: Observation telemetry. Plan to return home once medically stable. Patient seen in collaboration with Dr. Ruggiero. Please see addendum. History of Present Illness Chief Complaint: Syncope, complex migraine Primary Care Provider: Shell Pinon MD This is a 53-year-old female with a PMH of migraine headaches, depression and other medical problems listed below who presents after 3 syncopal episodes in the past 2 days. Patient states that she felt fine until she was walking down her [place] at home and developed dizziness and tunnel vision. [place] like she was going to pass out, so she slid down the wall and daughter found her in the hallway. Denies any head trauma. Reports another similar event later that evening. Had another reported syncopal event this morning in the setting of worsened migraine headache on right side of head with associated nausea and right upper extremity tingling. States that these are all typical symptoms that she experiences with migraines. Took an Imitrex with some relief of headache. Still experiencing right-sided headache, nausea, epigastric pain, photophobia and right upper extremity tingling. Denies fever, chills, lightheadedness, chest pain, palpitations, shortness of breath, vomiting, dysuria, diarrhea or constipation. Patient follows with Dr. Rowell of neurology group for migraine headaches. Has been admitted in the past for extensive workup including MRI, CTA, EEG, cardio workup and LP which were all within normal limits. Has undergone multiple medication changes within the last year as well, including weaning off of Topamax and amitriptyline. Is currently taking depakote and propranolol as well as Imitrex PRN. Was recently started on Anjovy injection last month. Allergies Allergy/AdvReac Type Severity Reaction Status Date / Time oxycodone Allergy Intermediate HIVES Verified 11/17/18 13:19 piperacillin Allergy Intermediate Pruritus Verified 11/17/18 13:19 tazobactam Allergy Intermediate Pruritus Verified 11/17/18 13:19 ketorolac Allergy Mild Itching Verified 11/17/18 13:19 vancomycin AdvReac Unknown deathly ill Unverified 11/17/18 13:19 Home Medications Home Medications Medication Instructions Recorded Confirmed Type Enbrel 50 mg SUBCUT WK 07/17/18 11/17/18 History albuterol sulfate [Ventolin HFA] 2 puff INHALATION QID PRN 07/17/18 11/17/18 History ergocalciferol (vitamin D2) 50,000 units PO 2XWK 07/17/18 11/17/18 History [Vitamin D2] gabapentin 300 mg PO TID 07/17/18 11/17/18 History levothyroxine [Synthroid] 25 mcg PO DAILY 07/17/18 11/17/18 History magnesium oxide 400 mg PO DAILY 07/17/18 11/17/18 History ondansetron HCl [Zofran] 8 mg PO Q8H PRN 07/17/18 11/17/18 History pantoprazole [Protonix] 40 mg PO BID 07/17/18 11/17/18 History promethazine 25 mg PO Q8H PRN 07/17/18 11/17/18 History propranolol 60 mg PO DAILY 07/17/18 11/17/18 History riboflavin (vitamin B2) [Vitamin 400 mg PO DAILY 07/17/18 11/17/18 History B-2] sumatriptan succinate [Imitrex] 50 mg PO UD PRN 07/17/18 11/17/18 History trazodone 100 mg PO HS 07/17/18 11/17/18 History famotidine 20 mg PO BID #20 tab 07/27/18 11/17/18 Rx bupropion HCl 300 mg PO QAM 11/17/18 11/17/18 History divalproex [Depakote ER] 500 mg PO HS 11/17/18 11/17/18 History duloxetine 30 mg PO DAILY 11/17/18 11/17/18 History fremanezumab-vfrm 0.01 ml SUBCUT MONTHLY 11/17/18 11/17/18 History lorazepam [Ativan] 0.5 mg PO DAILY PRN 11/17/18 11/17/18 History divalproex 500 mg PO HS 30 Days #60 tab 11/24/18 Rx metronidazole 500 mg PO TID 6 Days #18 tab 11/24/18 Rx nystatin 5 ml PO QID 6 Days #120 ml 11/24/18 Rx sulfamethoxazole-trimethoprim 1 tab PO Q12 6 Days #12 tab 11/24/18 Rx Past Med/Surg History Medical History Vertigo (Chronic) GERD (gastroesophageal reflux disease) (Chronic) Edema (Chronic) Depression (Chronic) Sleep apnea (Chronic) MINI (iron deficiency anemia) (Chronic) History of pulmonary embolism (Resolved) "completed 6 months Coumadin therapy" On 06/27/16 17:03 Nuha Zarate wrote On 03/23/16 16:22 Dottie Montilla wrote "2000 per patient; s/p knee replacement" History of DVT (deep vein thrombosis) (Resolved) Psoriatic arthritis (Chronic) Clostridium difficile colitis (Resolved) Surgical History Status post appendectomy (Resolved) Status post cholecystectomy (Resolved) Status post gastric bypass for obesity (Resolved) Status post total knee replacement (Resolved) H/O wisdom tooth extraction (Resolved) History of carpal tunnel surgery (Resolved) S/P hysterectomy (Resolved) History of appendectomy (Resolved) History of cholecystectomy (Resolved) Family History Other No pertinent family history Social History Preferred Language: Cam[place]onian Beliefs That Will Affect Care: None Current Living Situation: Spouse Other Information That Helps Us Care for You: No Feels Safe at Home: Yes Safety Concerns: Feels Safe At This Time Smoking Status: Never smoker Hx Alcohol Use: No Hx Substance Use: No Review of Systems All systems reviewed & are unremarkable except as noted in HPI & below Physical Exam Vital Signs (Past 24 Hours): Last Vital Signs Temp 36.8 C 11/17/18 11:56 Pulse 79 11/17/18 15:48 Resp 16 11/17/18 15:48 BP 125/73 11/17/18 15:48 Pulse Ox 96 11/17/18 15:48 Physical Exam: General Appearance: WD/WN, no apparent distress Head: normocephalic, atraumatic Eyes: normal inspection, PERRL, EOMI ENT: hearing grossly normal, pharynx normal (moist mucous membranes) Neck: supple, no JVD, no adenopathy Respiratory/Chest: lungs clear to auscultation. No wheezes, rales or rhonci. No respiratory distress or accessory muscle use Cardiovascular: regular rate, rhythm, no murmur, normal peripheral pulses Abdomen/GI: normal bowel sounds, soft, epigastric TTP Extremities/Musculoskelatal: normal inspection, no calf tenderness, normal capillary refill, no pedal edema Neurologic/Psych: alert, normal mood/affect, oriented x 3. Strength/ROM intact in extremities Skin: normal color, warm/dry Results & Data Laboratory Results Short CBC 11/17/18 Range/Units 12:20 WBC 7.03 (4.8-10.8) K/uL Hgb 13.2 (12.0-16.0) g/dL Hct 39.1 (37-47) % Plt Count 324 (130-400) K/uL BMP 11/17/18 12:20 Sodium 141 Potassium 4.3 Chloride 107 Carbon Dioxide 26 BUN 12 Creatinine 0.85 Glucose 98 Calcium 9.0 Cardiac Enzymes 11/17/18 Range/Units 12:20 Troponin I < 0.015 (0-0.045) ng/ml Liver Function 11/17/18 Range/Units 12:20 Total Bilirubin 0.4 (0.2-1) mg/dl AST 19 (15-37) U/L ALT 27 (12-78) U/L Alkaline Phosphatase 157 H (45-117) U/L Albumin 3.8 (3.4-5.0) gm/dl Urine 11/17/18 Range/Units 13:47 Urine Color Yellow Urine Appearance Clear (Clear) Urine pH 7.0 (4.5-7.5) Ur Specific Sod 1.011 (1.000-1.030) Urine Protein Negative (Negative) Urine Glucose (UA) Negative (Negative) Diagnostic Findings Head CT: Impression: No acute intracranial abnormality Cervical spine CT: IMPRESSION: No fractures within the cervical spine. Muscle spasm. CXR: IMPRESSION: Negative chest. ECG Rhythm: normal sinus Supervising Physician Co-Signing Physician Notes ATTENDING ADDENDUM : Pt presented with syncope , possible due to migraine headache atypical presentation no neurological deficit , imaging negative monitor neuro consulted Jessica Ruggiero MD
[2018-11-17] MEDS ORDERED: ACETAMINOPHEN 325 MG TAB PO PRN (17:37)
[2018-11-17] MEDS ORDERED: ALBUTEROL HFA 8 GM INHALER INH PRN (17:37)
[2018-11-17] MEDS ORDERED: ONDANSETRON 8 MG TABLET PO PRN (17:37)
[2018-11-17] MEDS ORDERED: ALUMINUM/MAGNESIUM SUSP 30 ML UDC PO PRN (17:37)
[2018-11-17] MEDS ORDERED: MAGNESIUM HYDROXIDE SUSP 30 ML UDC PO PRN (17:37)
[2018-11-17] MEDS ORDERED: POLYETHYLENE (MIRALAX) 17 GM PACK PO PRN (17:37)
[2018-11-17] MEDS: SODIUM CHLORIDE 0.9% 1000ML 1,000 ML IV SCH (18:40)
[2018-11-17] MEDS: PROPRANOLOL HCL 20 MG TAB PO SCH (18:56)
[2018-11-17] MEDS: ACETAMINOPHEN 1,000 MG/100 ML VIAL IV SCH (18:57)
--- NOTE | 2018-11-17 19:26 | Emergency Department Note ---
Entered by Fadi Mayers acting as a scribe for Mckinley Navarrete MD History of Present Illness General Chief complaint: Dizziness Stated complaint: PASSING OUT,DIZZINESS,NAUSEA Source: patient History of Present Illness Onset (ago): day(s) 3 Location: head (dizziness) Pain Consistency: + other (worsening episodes) Exacerbated By: + movement Associated symptoms: + denies other symptoms (diarrhea, black or bloody stools), + nausea/vomiting and + other (rib pain, back pain, neck pain, light-headedness, right arm numbness); no chest pain and no fever/chills The patient is a 53 year old F who presents to the Emergency Room with complaints of worsening episodes of dizziness starting 3 days ago. She states that her dizziness gets worse with movement. She states that she is currently experiencing upper abdominal pain which started yesterday, migraine and neck pain, light-headedness, right arm numbness which she describes as a tingling, nausea, and vomiting. She adds that her right arm numbness is not unusual with her previous episodes of migraines. She denies experiencing chest pain, diarrhea, fever, and black or bloody stools. She states that her episodes of dizziness started 3 days ago but notes that she experienced passing out yesterday. She adds that she has lost consciousness twice. She notes that the two times she passed out she was in the kitchen and was coming back from the bathroom. She denies that there were any witnesses that saw her fall. She also denies hitting her head during her episode of passing out and adds that she slumped into the wall. She notes that she has not been eating much but ate a cheeseburger yesterday and a half a slice of toast today. She states that she has had vertigo but does not of vertigo today. She describes her dizziness as more lightheadedness. She adds that she has a history of a cholecystectomy. Home Medications Home Medications Medication Instructions Recorded Confirmed Type albuterol sulfate [Ventolin HFA] 2 puff INHALATION QID PRN 07/17/18 11/17/18 History ergocalciferol (vitamin D2) 50,000 units PO 2XWK 07/17/18 11/17/18 History [Vitamin D2] etanercept [Enbrel] 50 mg SUBCUT WK 07/17/18 11/17/18 History gabapentin 300 mg PO TID 07/17/18 11/17/18 History levothyroxine [Synthroid] 25 mcg PO DAILY 07/17/18 11/17/18 History magnesium oxide 400 mg PO DAILY 07/17/18 11/17/18 History ondansetron HCl [Zofran] 8 mg PO Q8H PRN 07/17/18 11/17/18 History pantoprazole [Protonix] 40 mg PO BID 07/17/18 11/17/18 History promethazine 25 mg PO Q8H PRN 07/17/18 11/17/18 History propranolol 60 mg PO DAILY 07/17/18 11/17/18 History riboflavin (vitamin B2) [Vitamin 400 mg PO DAILY 07/17/18 11/17/18 History B-2] sumatriptan succinate [Imitrex] 50 mg PO UD PRN 07/17/18 11/17/18 History trazodone 100 mg PO HS 07/17/18 11/17/18 History famotidine 20 mg PO BID #20 tab 07/27/18 11/17/18 Rx bupropion HCl 300 mg PO QAM 11/17/18 11/17/18 History divalproex [Depakote ER] 500 mg PO HS 11/17/18 11/17/18 History duloxetine 30 mg PO DAILY 11/17/18 11/17/18 History fremanezumab-vfrm 0.01 ml SUBCUT MONTHLY 11/17/18 11/17/18 History lorazepam [Ativan] 0.5 mg PO DAILY PRN 11/17/18 11/17/18 History triamterene-hydrochlorothiazid 1 tab PO DAILY PRN 11/17/18 11/17/18 History Allergies Allergy/AdvReac Type Severity Reaction Status Date / Time oxycodone Allergy Intermediate HIVES Verified 11/17/18 13:19 piperacillin Allergy Intermediate Pruritus Verified 11/17/18 13:19 tazobactam Allergy Intermediate Pruritus Verified 11/17/18 13:19 ketorolac Allergy Mild Itching Verified 11/17/18 13:19 vancomycin AdvReac Unknown deathly ill Unverified 11/17/18 13:19 Past Med/Surg History Medical History Vertigo (Chronic) GERD (gastroesophageal reflux disease) (Chronic) Edema (Chronic) Depression (Chronic) Sleep apnea (Chronic) MINI (iron deficiency anemia) (Chronic) History of pulmonary embolism (Resolved) "completed 6 months Coumadin therapy" On 06/27/16 17:03 Nuha Zarate wrote On 03/23/16 16:22 Dottie Montilla wrote "2000 per patient; s/p knee replacement" History of DVT (deep vein thrombosis) (Resolved) Psoriatic arthritis (Chronic) Clostridium difficile colitis (Resolved) Surgical History Status post appendectomy (Resolved) Status post cholecystectomy (Resolved) Status post gastric bypass for obesity (Resolved) Status post total knee replacement (Resolved) H/O wisdom tooth extraction (Resolved) History of carpal tunnel surgery (Resolved) S/P hysterectomy (Resolved) History of appendectomy (Resolved) History of cholecystectomy (Resolved) Family History Other No pertinent family history Social History Preferred Language: [place] Communication Ability: Effective Trade 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 and A total of 10 systems reviewed and were otherwise negative Physical Exam Vital Signs Vital Signs - 24 hr 11/17/18 11:56 11/17/18 12:58 11/17/18 13:07 Temperature 36.8 C Temperature Source Oral Sepsis Recent Fever Within 48 Hours No Sepsis New/Unexplained Change in Mental Status No Sepsis Action Taken by Nursing No Action Required Pulse Rate - Lying 88 Pulse Rate - Sitting 82 Pulse Rate - Standing 96 H Pulse Rate 91 H Pulse Rate [Apical] Pulse Rate [Right Brachial] Pulse Rhythm [Apical] Pulse Rhythm [Right Brachial] Pulse Strength [Apical] Pulse Strength [Right Brachial] Respiratory Rate 16 Respiratory Effort / Characteristics Non-Labored Spontaneous Respiratory Depth Normal Respiratory Pattern Blood Pressure - Lying 136/82 Blood Pressure - Sitting 133/82 Blood Pressure- Standing 136/82 Blood Pressure 140/92 Blood Pressure [Right Arm] Blood Pressure Mean 108 Blood Pressure Mean [Right Arm] Blood Pressure Position [Right Arm] Pulse Oximetry 97 95 Oxygen Delivery Method Room Air Room Air 11/17/18 13:55 11/17/18 14:07 11/17/18 15:48 Temperature Temperature Source Sepsis Recent Fever Within 48 Hours Sepsis New/Unexplained Change in Mental Status Sepsis Action Taken by Nursing Pulse Rate - Lying Pulse Rate - Sitting Pulse Rate - Standing Pulse Rate Pulse Rate [Apical] 82 79 Pulse Rate [Right Brachial] Pulse Rhythm [Apical] Regular Pulse Rhythm [Right Brachial] Pulse Strength [Apical] Normal Pulse Strength [Right Brachial] Respiratory Rate 18 16 Respiratory Effort / Characteristics Non-Labored Spontaneous Respiratory Depth Normal Respiratory Pattern Regular Blood Pressure - Lying Blood Pressure - Sitting Blood Pressure- Standing Blood Pressure Blood Pressure [Right Arm] 116/69 125/73 Blood Pressure Mean Blood Pressure Mean [Right Arm] 84 90 Blood Pressure Position [Right Arm] Pulse Oximetry 97 96 Oxygen Delivery Method Room Air Room Air Room Air 11/17/18 17:00 11/17/18 17:03 Temperature 36.5 C Temperature Source Oral Sepsis Recent Fever Within 48 Hours Sepsis New/Unexplained Change in Mental Status Sepsis Action Taken by Nursing Pulse Rate - Lying Pulse Rate - Sitting Pulse Rate - Standing Pulse Rate 73 68 Pulse Rate [Apical] Pulse Rate [Right Brachial] 72 Pulse Rhythm [Apical] Pulse Rhythm [Right Brachial] Regular Pulse Strength [Apical] Pulse Strength [Right Brachial] Normal Respiratory Rate 20 16 Respiratory Effort / Characteristics Non-Labored Respiratory Depth Normal Respiratory Pattern Regular Blood Pressure - Lying Blood Pressure - Sitting Blood Pressure- Standing Blood Pressure 129/78 Blood Pressure [Right Arm] 126/83 Blood Pressure Mean Blood Pressure Mean [Right Arm] 97 Blood Pressure Position [Right Arm] Lying Pulse Oximetry 98 99 Oxygen Delivery Method Room Air Room Air Constitutional: Vital signs reviewed. Eyes: Pupils are equal round reactive to light. Conjunctiva are noninjected. ENT: Pharynx is clear without erythema or exudate. Mucous membranes are moist. Neck supple without meningeal signs. Respiratory: Clear to auscultation bilaterally. Breath sounds are equal bilaterally. Cardiovascular: Regular rate and rhythm. No rubs or gallops. GI: Soft and nondistended. Epigastric tenderness and no guarding. Bowel sounds are present. Musculoskeletal: No peripheral edema. No lower extremity tenderness. Integumentary: No cyanosis. Neurological: The patient is awake and alert. Cranial nerves II-XII are intact. Motor is 5 out of 5 all extremities. Sensation is intact to light touch all extremities. Normal speech. No pronator drift. No limb ataxia. Psychiatric: Normal affect. Course 1201: Past medical records reviewed. The patient was evaluated in room C9, and a complete history and physical examination were performed. 1328: I re-evaluated the patient and updated her on her test results. She states that she still has a headache and nausea. 2345: I reviewed the patient's case with Dr. Deborah Dominguez PA-C. She will evaluate the patient for further management. Consultations Consultation #1: I reviewed the patient's case with Dr. Deborah Dominguez PA-C. She will evaluate the patient for further management. Time: 23:45 Administered Medications Sodium Chloride (Nss 1000ml) 1,000 mls @ 100 mls/hr IV .Q10H DRE Stop: 12/17/18 18:29 Last Admin: 11/17/18 18:40 Dose: 100 mls/hr Documented by: [id number] Acetaminophen (Ofirmev) 1,000 mg in 100 mls @ 400 mls/hr IV Q8 DRE Stop: 12/17/18 18:44 Last Admin: 11/17/18 18:57 Dose: 400 mls/hr Documented by: [id number] Propranolol HCl (Inderal) 60 mg PO DAILY DRE Stop: 12/17/18 18:29 Last Admin: 11/17/18 18:56 Dose: 60 mg Documented by: [id number] Discontinued Medications Diphenhydramine HCl (Benadryl) 50 mg IV NOW STA Stop: 11/17/18 12:10 Last Admin: 11/17/18 12:19 Dose: 50 mg Documented by: [id number] Prochlorperazine 10 mg/ (Syringe) 10 mls @ 5 mls/min IV ONE ONE Stop: 11/17/18 12:10 Last Admin: 11/17/18 12:20 Dose: Not Given Documented by: [id number] Sodium Chloride (Nss 1000ml) 1,000 mls @ 999 mls/hr IV .Q1H1M DRE Stop: 11/17/18 13:15 Last Infusion: 11/17/18 14:13 Dose: 0 mls/hr Documented by: [id number] Admin: 11/17/18 12:20 Dose: 999 mls/hr Documented by: [id number] Magnesium Sulfate/Dextrose (Magnesium Sulfate / D5w) 1 gm in 100 mls @ 100 m ls/hr IV ONE ONE Stop: 11/17/18 14:24 Last Infusion: 11/17/18 15:29 Dose: 0 mls/hr Documented by: [id number] Admin: 11/17/18 13:42 Dose: 100 mls/hr Documented by: [id number] Promethazine HCl (Phenergan) 12.5 mg in 50.5 mls @ 202 mls/hr IV NOW STA Stop: 11/17/18 13:39 Last Infusion: 11/17/18 14:13 Dose: 0 mls/hr Documented by: [id number] Admin: 11/17/18 13:42 Dose: 202 mls/hr Documented by: [id number] Prochlorperazine (Compazine) Confirm Administered Dose 10 mg .ROUTE .STK-MED ONE Stop: 11/17/18 12:19 Last Admin: 11/17/18 12:20 Dose: 10 mg Documented by: [id number] Medical Decision Making Differential Diagnosis Differential Diagnosis includes: syncope, migraine, headache, ICH, orthostatic hypotension, dehydration, pancreatitis, ACS Medical Records Attestation: I reviewed the patient's medical records. Home Medications Current Medication List: was personally reviewed by me Laboratory Data Attestation: I reviewed the patient's lab results. Result diagrams: 11/17/18 12:20 11/17/18 12:20 Lab Results 11/17/18 11/17/18 11/17/18 Range/Units 12:20 12:20 13:47 WBC 7.03 (4.8-10.8) K/uL RBC 4.54 (4.2-5.4) M/uL Hgb 13.2 (12.0-16.0) g/dL Hct 39.1 (37-47) % MCV 86.1 (80-100) fL MCH 29.1 (25-34) pg MCHC 33.8 (32-36) g/dL RDW Std Deviation 45.7 (36.4-46.3) fL RDW Coeff of Halley 14.6 H (11.5-14.5) % Plt Count 324 (130-400) K/uL MPV 9.0 (7.4-10.4) fL Immature Gran % (Auto) 0.1 % Neut % (Auto) 49.5 % Lymph % (Auto) 39.0 % [place] % (Auto) 9.4 % Eos % (Auto) 1.4 % Baso % (Auto) 0.6 % Immature Gran # (Auto) 0.01 (0.00-0.02) K/uL Neut # (Auto) 3.48 (1.4-6.5) K/uL Lymph # (Auto) 2.74 (1.2-3.4) K/uL [place] # (Auto) 0.66 H (0.11-0.59) K/uL Eos # (Auto) 0.10 (0-0.5) K/uL Baso # (Auto) 0.04 (0-0.2) K/uL Sodium 141 (136-145) mmol/L Potassium 4.3 (3.5-5.1) mmol/L Chloride 107 (98-107) mmol/L Carbon Dioxide 26 (21-32) mmol/L Anion Gap 8.0 (3-11) BUN 12 (7-18) mg/dl Creatinine 0.85 (0.6-1.2) mg/dl Est Cr Clr Drug Dosing 84.1 ml/min Est GFR ( Amer) 89.4 Est GFR (Non-Af Amer) 77.1 BUN/Creatinine Ratio 13.8 (10-20) Glucose 98 (70-99) mg/dl Calcium 9.0 (8.5-10.1) mg/dl Magnesium 2.3 (1.8-2.4) mg/dl Total Bilirubin 0.4 (0.2-1) mg/dl AST 19 (15-37) U/L ALT 27 (12-78) U/L Alkaline Phosphatase 157 H (45-117) U/L Troponin I < 0.015 (0-0.045) ng/ml Total Protein 7.2 (6.4-8.2) gm/dl Albumin 3.8 (3.4-5.0) gm/dl Globulin 3.4 (2.5-4.0) gm/dl Albumin/Globulin Ratio 1.1 (0.9-2) Lipase 58 L (73-393) U/L TSH 1.720 (0.300-4.500) uIu/ml Urine Color Yellow Urine Appearance Clear (Clear) Urine pH 7.0 (4.5-7.5) Ur Specific [place] 1.011 (1.000-1.030) Urine Protein Negative (Negative) Urine Glucose (UA) Negative (Negative) Urine Ketones Negative (Negative) Urine Blood Negative (Negative) Urine Nitrite Negative (Negative) Urine Bilirubin Negative (Negative) Urine Urobilinogen Negative (Negative) Ur Leukocyte Esterase Negative (Negative) Imaging Data Radiologist's Impression: Radiology results as stated below per my review and the radiologist's interpretation: CT head/brain wo con CT DOSE: 858.48 mGy.cm HISTORY: Mental status change syncope TECHNIQUE: Multiaxial CT images of the head were performed without the use of intravenous contrast. A dose lowering technique was utilized adhering to the principles of ALARA. Comparison: 02/14/2018 Findings: The paranasal sinuses and mastoid air cells are clear. No acute intracranial abnormality. Small anterior left frontal meningioma unchanged from the prior exam. No acute intracranial hemorrhage. No midline shift. Impression: No acute intracranial abnormality. The above report was generated using voice recognition software. It may contain grammatical, syntax or spelling errors. Electronically signed by: Collins Armando M.D. 11/17/2018 12:41 PM XR chest 1V portable CLINICAL HISTORY: upper abd pain eval for pna pain COMPARISON STUDY: 07/27/2018 FINDINGS: The bones soft tissues and hemidiaphragms are normal. The cardiomediastinal silhouette is normal. The lungs are clear. The pulmonary va sculature is normal. IMPRESSION: Negative chest. The above report was generated using voice recognition software. It may contain grammatical, syntax or spelling errors. Electronically signed by: Collins Armando M.D. 11/17/2018 12:[address] cervical spine wo con CT DOSE: HISTORY: Trauma fall eval for fx TECHNIQUE: Multiaxial CT images of the cervical spine were performed and reformatted in the sagittal and coronal plane without the use of contrast. A dose lowering technique was utilized adhering to the principles of ALARA. COMPARISON: None. FINDINGS: No fractures. No subluxation. Prevertebral soft tissues and the C1-C2 interval are intact. No pneumothorax. IMPRESSION: No fractures within the cervical spine. Muscle spasm. The above report was generated using voice recognition software. It may contain grammatical, syntax or spelling errors. Electronically signed by: Collins Armando M.D. 11/17/2018 12:44 PM ECG Data Attestation: I personally reviewed and interpreted this ECG as follows: Indication: syncope Rate (beats per minute): 81 Rhythm: normal sinus Findings: + Q waves (anterior septal); no PVC Comparison ECG Date: from (07/27/18) Change: no significant change Blood Pressure Blood Pressure Findings: Elevated blood pressure Blood Pressure Disposition: Referred to patients primary care provider MDM Narrative I did perform a limited focused review of portions of the patient's old chart on the electronic medical record. The patient has had no recent pertinent visits to this hospital. I did evaluate the patient as noted above. The patient is presenting with dizziness with several syncopal episodes since yesterday. She also complains of a migraine headache with paresthesias down the right arm which is not unusual. She has a prior history of migraines as well as paresthesias with migraines. She denies any chest pain but does complain of some upper abdominal pain which started today. She does have some tenderness in the epigastric region. She do es have a prior history of cholecystectomy. IV access was established. The patient was placed on a continuous manager cardiac. I did treat her with normal saline IV. She was also given IV Compazine and Benadryl. I did order and personally review the patient's 12-lead EKG and chest x-ray as described above. Her twelve-lead EKG does not show any signs of acute ischemia. She does have Q waves which are old. Chest x-ray does not show any signs of pneumonia. I did order and review the patient's blood work as noted in the electronic medical record. Her labs are unremarkable. Troponin is negative. I did order a CT of the head and cervical spine. I did review the images myself as well as the radiology report as described above. There is no evidence of acute intracranial process or cervical fracture. I did reassess the patient. She states she is still nauseated and has a headache. She was therefore given IV Phenergan and magnesium IV. I did recommend hospitalization given her multiple syncopal episodes. She was in agreement. I did discuss the case with the hospitalist and caser up. Impression & Plan Syncope, Migraine, Upper abdominal pain Discharge Plan Visit Data *Final* Discharge Date/Time: 11/17/18 17:03 Chief Complaint: Dizziness Stated Complaint: PASSING OUT,DIZZINESS,NAUSEA ED Provider: Mckinley Navarrete Discharge Problem: Syncope, Migraine, Upper abdominal pain Patient Disposition: Admitted As Inpatient Discharge Instructions Interventions: ED Discharge Assessment Last Done: 11/17/18 17:03 The scribe's documentation has been prepared under my direction and personally reviewed by me in its entirety. I confirm that the note above accurately reflects all work, treatment, procedures, and medical decision making performed by me.
[2018-11-17] MEDS: DIVALPROEX EXTENDED RELEASE 250 MG TABCR PO SCH (19:57)
[2018-11-17] MEDS: TRAZODONE HCL 100 MG TAB PO SCH (19:58)
[2018-11-17] MEDS: FAMOTIDINE 20 MG TAB PO SCH (19:58)
[2018-11-17] MEDS: GABAPENTIN 300 MG CAP PO SCH (19:58)
[2018-11-17] MEDS: PANTOprazole 40 MG TAB PO SCH (19:59)
[2018-11-17] MEDS: SUMAtriptan succinate 50 MG TAB PO PRN (21:53)
[2018-11-17] MEDS: ONDANSETRON INJ 2 MG/ML 2 ML VIAL IV PRN (21:53)
[2018-11-18] MEDS: MECLIZINE HCL 25 MG TAB PO PRN ×2 (00:03→09:15)
[2018-11-18] MEDS: PROMETHAZINE HCL 12.5 MG in SODIUM CHLORIDE 0.9% 50 ML IV PRN ×3 (00:03→19:52)
[2018-11-18] MEDS: SODIUM CHLORIDE 0.9% 1000ML 1,000 ML IV SCH ×2 (04:33→13:44)
[2018-11-18] MEDS: ACETAMINOPHEN 1,000 MG/100 ML VIAL IV SCH ×3 (05:59→22:10)
[2018-11-18] MEDS: LEVOTHYROXINE SODIUM 25 MCG TABLET PO SCH (06:00)
[2018-11-18] MEDS: ONDANSETRON INJ 2 MG/ML 2 ML VIAL IV PRN ×2 (06:00→15:54)
[2018-11-18] MEDS ORDERED: NON-FORMULARY MEDICATION (Riboflavin (Vitamin B2) [Vitamin B-2] 400 MG) PO SCH (09:00)
[2018-11-18] MEDS: SUMAtriptan succinate 50 MG TAB PO PRN ×2 (09:15→11:37)
[2018-11-18] MEDS: DULOXETINE HCL 30 MG CAP PO SCH (10:07)
[2018-11-18] MEDS: ERGOCALCIFEROL 50,000 UNITS CAP PO SCH (10:07)
[2018-11-18] MEDS: FAMOTIDINE 20 MG TAB PO SCH (10:07)
[2018-11-18] MEDS: PROPRANOLOL HCL 20 MG TAB PO SCH (10:07)
[2018-11-18] MEDS: PANTOprazole 40 MG TAB PO SCH ×2 (10:07→20:54)
[2018-11-18] MEDS: GABAPENTIN 300 MG CAP PO SCH ×3 (10:08→20:53)
[2018-11-18] MEDS: BuPROPion XL 300 MG TABCR PO SCH (10:08)
[2018-11-18] MEDS: MAGNESIUM OXIDE 400 MG TAB PO SCH (10:08)
--- NOTE | 2018-11-18 14:35 | Neurology Consultation ---
Date of Consultation November 18, 2018 Assessment & Plan (1) Migraine: 1. continue current medications 2. start IV NSS 125 cc /h, Mg 1 g q 8 hours, toradol 30 mg IV q 8 hours, benadryl 25 mg q 8 hours, solumetrol 1 gm daily, Zanaflex 4 mg q 8 hours prn. 3. discharge on home medication , steroid taper at discharge 4. return visit with neurology already scheduled (2) Syncope: 1. needs orthostatics lying standing sitting 2. PT- Mendel maneuver for spells of dizziness. Supervising Physician Co-Signing Physician Notes I have seen and discussed above patient with Dr Melvin Rowell, neurology I have seen Mrs. Link today, briefly examined her, reviewed her history, her imaging studies, the laboratory values and have discussed her case with Sara Rushing PA-C. Ms. Link has a long-standing syndrome often with right-sided hemisensory and having motor deficits and presents this time with a severe protracted headache, mild to moderate right sided nkaul-motor or he misensory deficits and some near syncopal events which are probably mediated by orthostatic hypotension and have largely resolved. She does have some vertiginous sensations in we may end up asking for an Mendel maneuver assessment but for now the plan is to treat her with our "migraine" cocktail consisting of intravenous saline, Toradol, prednisone, Benadryl magnesium and as needed Zanaflex. Hopefully this will be sufficient to break her migraine cycle and we can continue with her outpatient management with Ajovy, propranolol, Depakote, riboflavin, magnesium oxide in addition to as needed Imitrex. We will be back tomorrow to see how the treatment regimen has gone. Melvin Rowell MD History of Present Illness Reason for Consultation: complex migraine, syncope Requesting Physician: Jessica Ruggiero MD Attending Physician: Jessica Ruggiero MD History of Present Illness Gladis is a 53 year old female with PMH of migraine headaches, depression. She presented after 5 syncopal episodes in the past 2 days. She was walking down her norris at home and developed dizziness and tunnel vision. She felt like she was going to pass out, so she slid down the wall and daughter found her in the hallway. Then a 2nd syncopal event when she was washing dishes and she felt light headed and sat down, worsened migraine headache on right side of head with associated nausea and right upper extremity tingling. States that these are all typical symptoms that she experiences with migraines. Took an Imitrex with some relief of headache. Still experiencing right-sided headache, nausea, epigastric pain, photophobia and right upper extremity tingling. She is seen in our [place] [facility] for migraine headaches. In the past she has had an extensive workup including MRI, CTA, EEG, cardio workup and LP which were all within normal limits. Last month she was started on Ajovy injections and was started on a wean of Topamax and amitriptyline. She is still taking Depakote, Mag ox, riboflavin, propranolol and imitrex prn. denies CP, SOB, abdominal pain, one sided weakness, numbness, tingling, vision changes, +blurred vision at start of migraine but resolved. last ophthalmology exam 6 months ago. Allergies Allergy/AdvReac Type Severity Reaction Status Date / Time oxycodone Allergy Intermediate HIVES Verified 11/17/18 13:19 piperacillin Allergy Intermediate Pruritus Verified 11/17/18 13:19 tazobactam Allergy Intermediate Pruritus Verified 11/17/18 13:19 ketorolac Allergy Mild Itching Verified 11/17/18 13:19 vancomycin AdvReac Unknown deathly ill Unverified 11/17/18 13:19 Home Medications Home Medications Medication Instructions Recorded Confirmed Type albuterol sulfate [Ventolin HFA] 2 puff INHALATION QID PRN 07/17/18 11/17/18 History ergocalciferol (vitamin D2) 50,000 units PO 2XWK 07/17/18 11/17/18 History [Vitamin D2] etanercept [Enbrel] 50 mg SUBCUT WK 07/17/18 11/17/18 History gabapentin 300 mg PO TID 07/17/18 11/17/18 History levothyroxine [Synthroid] 25 mcg PO DAILY 07/17/18 11/17/18 History magnesium oxide 400 mg PO DAILY 07/17/18 11/17/18 History ondansetron HCl [Zofran] 8 mg PO Q8H PRN 07/17/18 11/17/18 History pantoprazole [Protonix] 40 mg PO BID 07/17/18 11/17/18 History promethazine 25 mg PO Q8H PRN 07/17/18 11/17/18 History propranolol 60 mg PO DAILY 07/17/18 11/17/18 History riboflavin (vitamin B2) [Vitamin 400 mg PO DAILY 07/17/18 11/17/18 History B-2] sumatriptan succinate [Imitrex] 50 mg PO UD PRN 07/17/18 11/17/18 History trazodone 100 mg PO HS 07/17/18 11/17/18 History famotidine 20 mg PO BID #20 tab 07/27/18 11/17/18 Rx bupropion HCl 300 mg PO QAM 11/17/18 11/17/18 History divalproex [Depakote ER] 500 mg PO HS 11/17/18 11/17/18 History duloxetine 30 mg PO DAILY 11/17/18 11/17/18 History fremanezumab-vfrm 0.01 ml SUBCUT MONTHLY 11/17/18 11/17/18 History lorazepam [Ativan] 0.5 mg PO DAILY PRN 11/17/18 11/17/18 History triamterene-hydrochlorothiazid 1 tab PO DAILY PRN 11/17/18 11/17/18 History Patient History Medical History Vertigo (Chronic) GERD (gastroesophageal reflux disease) (Chronic) Edema (Chronic) Depression (Chronic) Sleep apnea (Chronic) MINI (iron deficiency anemia) (Chronic) History of pulmonary embolism (Resolved) "completed 6 months Coumadin therapy" On 06/27/16 17:03 Nuha Zarate wrote On 03/23/16 16:22 Dottie Montilla wrote "2000 per patient; s/p knee replacement" History of DVT (deep vein thrombosis) (Resolved) Psoriatic arthritis (Chronic) Clostridium difficile colitis (Resolved) Surgical History Status post appendectomy (Resolved) Status post cholecystectomy (Resolved) Status post gastric bypass for obesity (Resolved) Status post total knee replacement (Resolved) H/O wisdom tooth extraction (Resolved) History of carpal tunnel surgery (Resolved) S/P hysterectomy (Resolved) History of appendectomy (Resolved) History of cholecystectomy (Resolved) Family History Other No pertinent family history Social History Preferred Language: Cuban Communication Ability: Effective Swimming Pool Maintenance Required: No Beliefs That Will Affect Care: None Current Living Situation: Spouse Other Information That Helps Us Care for You: No Feels Safe at Home: Yes Safety Concerns: Feels Safe At This Time Smoking Status: Never smoker Hx Alcohol Use: No Hx Substance Use: No Physical Exam Vital Signs (Past 24 Hours): Last Vital Signs Temp 36.6 C 11/18/18 11:46 Pulse 60 11/18/18 11:46 Resp 16 11/18/18 11:46 BP 121/85 11/18/18 11:46 Pulse Ox 95 11/18/18 11:46 Physical Exam: Constitutional: over nourished, healthy and normal Ears, Nose, Mouth and Throat: mucous membranes moist, no injection and skin normal, eyes normal Cardiovascular: normal S-1 and S-2 and regular rate and rhythm Respiratory: clear to auscultation (CTA) and no rales, ronchi or wheeze Musculoskeletal: no peripheral edema Skin: no stigmata of neurocutaneous disease noted and normal and intact Eyes: extraocular muscles intact (EOMI) and pupils equal, round and reactive to light (PERRL) NEUROLOGIC EXAMINATION: Mental status: Alert and interactive Oriented to full date and location Oriented to person Speech fluent with no evidence of aphasia Cranial Nerves smile eye brow raise symmetric Reflexes: Deep tendon reflexes were symmetrical and graded 2/5. Sensory: no sensory deficits to light or cool touch Coordination: finger to nose no bipass Gait/Stance: Posture normal lying in bed with eye covered and lights out in room Motor: Negative for pronator drift of out stretched arms with eyes closed. Strength: biceps triceps hand archives specialist 5/5 bilaterally, hip flex plantar flex ext 5/5 bilaterally Results & Data Laboratory Results no abnormal labs Diagnostic Findings CT head- No acute intracranial abnormality. CXR- Negative chest. CT c spine No fractures within the cervical spine. Muscle spasm. (1) Migraine Intractability: not intractable Migraine type: unspecified Status migrainosus presence: without status migrainosus Qualified Code(s): G43.909 - Migraine, unspecified, not intractable, without status migrainosus (2) Syncope Syncope type: unspecified Qualified Code(s): R55 - Syncope and collapse
--- NOTE | 2018-11-18 15:49 | Hospitalist Progress Note ---
Date of Service November 18, 2018 Assessment & Plan (1) Syncope: (2) Migraine: This is a 53-year-old female with a PMH of migraine headaches, depression and other medical problems listed below who presents after 3 syncopal episodes in the past 2 days. -History of complex migraine presentation including syncope and right upper extremity paresthesias -Followed closely by Dr. Rowell, with recent addition of Ajovy injection last month -Has been admitted in the past for extensive workup including MRI, CTA, EEG, cardio workup and LP which were all wnl -Head CT, cervical spine CT, CXR without acute abnormalities -Continue home medication including Depakote, propranolol, gabapentin, magnesium , riboflavin and Imitrex PRN -Neurology consulted: will start a new regimen including IV NSS 125 cc /h, Mg 1gm q8h, toradol 30mg IV q8h, benadryl 25 mg q8h, solumedrol 1gm daily and Zanaflex 4 mg q8h prn -Orthostatic vitals qshift, Epleys maneuver by PT for dizziness -Pain control (avoiding narcotics if possible), anti-emetics (3) Upper abdominal pain: Endorses since yesterday. No leukocytosis or elevated lipase -Improving (4) Psoriatic arthritis: Continue Enbrel injection (5) Depression: Stable. Continue Wellbutrin, Cymbalta (6) GERD (gastroesophageal reflux disease): Continue PPI, H2 billie (7) Edema: Appears euvolemic Triamterene-HCTZ PRN Code status: FULL PCP: Kathrin Dispo: Observation telemetry. Plan to return home once medically stable. Patient seen in collaboration with Dr. Rivera. Please see addendum. Supervising Physician Co-Signing Physician Notes I have seen and examined the patient with physician cleaner assistant and agree with the assessment and plan as above and would like to comment that patient is mainly continuing treatment as recommended by neurology consult service who have know patient in outpatient setting with IV NSS 125 cc /h, Mg 1 g q 8 hours, toradol 30 mg IV q 8 hours, benadryl 25 mg q 8 hours, solumetrol 1 gm daily, Zanaflex 4 mg q 8 hours prn. Patient reports some symptomatic improvement other medical issue and management as documented by physician cleaner assistant On physical exam General: no acute distress Neurological: no focal neurological deficits, able to move all extremities Heart: regular rate Lungs: clear to auscultation bilaterally Abdomen: soft, nontender, bowel sounds present Subjective Patient seen and examined. Resting in bed, still having R-sided migraine headache with associated nausea, dizziness and RUE tingling. Has been tolerating small meals. Denies fever, chills, lightheadedness, confusion, chest pain, SOB, dysuria, diarrhea or constipation. Physical Exam Vital Signs (Past 24 Hours): Last Vital Signs Temp 36.7 C 11/18/18 14:41 Pulse 66 11/18/18 14:41 Resp 16 11/18/18 14:41 BP 135/84 11/18/18 14:41 Pulse Ox 93 11/18/18 14:41 Physical Exam: General Appearance: WD/WN, no apparent distress Head: normocephalic, atraumatic Eyes: normal inspection, PERRL, EOMI ENT: hearing grossly normal, pharynx normal (moist mucous membranes) Neck: supple, no JVD, no adenopathy Respiratory/Chest: lungs clear to auscultation. No wheezes, rales or rhonci. No respiratory distress or accessory muscle use Cardiovascular: regular rate, rhythm, no murmur, normal peripheral pulses Abdomen/GI: normal bowel sounds, soft, epigastric TTP Extremities/Musculoskelatal: normal inspection, no calf tenderness, normal capillary refill, no pedal edema Neurologic/Psych: alert, normal mood/affect, oriented x 3. Strength/ROM intact in extremities Skin: normal color, warm/dry (1) Migraine Intractability: not intractable Migraine type: unspecified Status anita rainosus presence: without status migrainosus Qualified Code(s): G43.909 - Migraine, unspecified, not intractable, without status migrainosus (2) Syncope Syncope type: unspecified Qualified Code(s): R55 - Syncope and collapse
[2018-11-18] MEDS: MAGNESIUM SULFATE / D5W 1 GM/100 ML BAG IV SCH (16:03)
[2018-11-18] MEDS: KETOROLAC 30 MG/ML VIAL IV SCH (16:04)
[2018-11-18] MEDS: methylPREDNISolone 1,000 MG in DEXTROSE 5% 250 ML IV SCH (16:04)
[2018-11-18] MEDS ORDERED: HYDROmorphone INJ 0.5 MG/0.5 ML SYR IV PRN (19:58)
[2018-11-18] MEDS: TIZANIDINE HCL 4 MG TABLET PO PRN (20:52)
[2018-11-18] MEDS: DIVALPROEX EXTENDED RELEASE 250 MG TABCR PO SCH (20:55)
[2018-11-18] MEDS ORDERED: TIZANIDINE HCL 4 MG TABLET PO SCH (21:00)
[2018-11-18] MEDS: TRAZODONE HCL 100 MG TAB PO SCH (22:10)
[2018-11-19] MEDS: ZOLPIDEM TARTRATE 5 MG TAB PO PRN (00:17)
[2018-11-19] MEDS: MAGNESIUM SULFATE / D5W 1 GM/100 ML BAG IV SCH ×2 (00:17→07:59)
[2018-11-19] MEDS: KETOROLAC 30 MG/ML VIAL IV SCH ×2 (00:19→07:59)
[2018-11-19] MEDS: SODIUM CHLORIDE 0.9% 1000ML 1,000 ML IV SCH ×2 (00:36→07:59)
[2018-11-19] MEDS: ACETAMINOPHEN 1,000 MG/100 ML VIAL IV SCH ×3 (05:54→22:17)
[2018-11-19] MEDS: TIZANIDINE HCL 4 MG TABLET PO PRN ×2 (05:55→08:06)
[2018-11-19] MEDS: LEVOTHYROXINE SODIUM 25 MCG TABLET PO SCH (05:57)
[2018-11-19] MEDS: PROMETHAZINE HCL 12.5 MG in SODIUM CHLORIDE 0.9% 50 ML IV PRN (06:21)
[2018-11-19] MEDS: GABAPENTIN 300 MG CAP PO SCH ×3 (08:02→22:11)
[2018-11-19] MEDS: PROPRANOLOL HCL 20 MG TAB PO SCH (08:02)
[2018-11-19] MEDS: DULOXETINE HCL 30 MG CAP PO SCH (08:02)
[2018-11-19] MEDS: PANTOprazole 40 MG TAB PO SCH ×2 (08:03→22:11)
[2018-11-19] MEDS: BuPROPion XL 300 MG TABCR PO SCH (08:03)
[2018-11-19 08:05] LABS: Hematocrit (blood only) 35.1 % (37-47); Hemoglobin 12.1 g/dL (12.0-16.0); Mean Corpuscular Hgb Conc 34.5 g/dL (32-36); Mean Corpuscular Volume 85.6 fL (80-100); Mean Platelet Volume 9.2 fL (7.4-10.4); Platelet Count 265 K/uL (130-400); RDW Coefficient of Variation 14.4 % (11.5-14.5); RDW Standard Deviation 44.7 fL (36.4-46.3); White Blood Count 13.25 K/uL (4.8-10.8)
[2018-11-19 08:37] LABS: BUN Creatinine Ratio 13.8 (10-20); Calcium 8.2 mg/dl (8.5-10.1); Creatinine Clr Calc Pharmacy 77.5 ml/min; Est GFR (African American) 76.2; Est GFR (Non-African American) 65.8; Potassium 4.8 mmol/L (3.5-5.1)
[2018-11-19] MEDS: methylPREDNISolone 1,000 MG in DEXTROSE 5% 250 ML IV SCH (09:09)
--- NOTE | 2018-11-19 09:34 | Hospitalist Progress Note ---
Date of Service November 19, 2018 Assessment & Plan (1) Syncope: reported syncopal episodes at home (2) Migraine: This is a 53-year-old female with a PMH of migraine headaches, depression and other medical problems listed below who presents after 3 syncopal episodes in the past 2 days. intractable migraine headache -History of complex migraine presentation including syncope and right upper extremity paresthesias -has been seen by neurology clinic as outpatient with [facility], with recent addition of Ajovy injection last month --Has been admitted in the past for workup including MRI, CTA, EEG, cardio workup and LP which were all wnl -11/17/[address], cervical spine CT, CXR without acute abnormalities -Continue home medication including Depakote, propranolol, gabapentin, magnesium, riboflavin and Imitrex PRN -initial Neurology consult: suggested of 125 cc /h, Mg 1gm q8h, toradol 30mg IV q8h, benadryl 25 mg q8h, solumedrol 1gm daily and Zanaflex 4 mg q8h prn -11/19/18: patient may be over medicated and will hold off Benadryl and Zanaflex and Toradol and Phenergan for now, Patient had dilaudid recently and also will hold. will send for CTA of Head and Neck to rule out any occlusions from recent increased in paresthesias may are right sided or upper extremity and right face -encourage patient to perform with PT/OT -will re-assess later today and re-address hospital medications (3) Upper abdominal pain: initial complaint of upper abdominal pain appears resolved (4) Psoriatic arthritis: Continue Enbrel injection (5) Depression: Stable. Continue Wellbutrin, Cymbalta (6) GERD (gastroesophageal reflux disease): Continue PPI, H2 billie (7) Edema: on Triamterene-HCTZ PRN for history of edema of extremities currently euvolemic and hold for now Code status: FULL PCP: Kathrin Subjective Patient has had complaints of tingling sensation down right arm. today this morning, she feels that it was more pronounced and that nurse was concerned with patient's speech. as patient spoke with medical doctor she appeared to not have any acute aphasia. Was able to have patient stand up on the bed with some initial unsteadyness but she was able to stand on her own power. No focal motor deficits noted of extremities or of the tongue or eyes. Concerns perhaps may be patient may have been somewhat overmedicated. Physical Exam Vital Signs (Past 24 Hours): Last Vital Signs Temp 36.4 C L 11/19/18 07:44 Pulse 67 11/19/18 07:44 Resp 19 11/19/18 07:44 BP 147/84 H 11/19/18 07:44 Pulse Ox 91 11/19/18 07:44 Constitutional: WD/WN, vitals as above Eyes: PERRL, conjunctivae normal, anicteric sclerae EOM intact bilaterally ENMT: external ear and nose normal, oropharynx normal Neck: trachea midline, no thyromegaly Respiratory: normal respiratory effort, lungs clear to auscultation Cardiovascular: RRR, no murmur, no edema Gastrointestinal (Abdomen): normal bowel sounds, soft, nontender, no hepatosplenomegaly Musculoskeletal: Head/Neck/Chest: normocephalic and head atraumatic Neurologic: Headaches and parasthesia has been right sided and symptoms of right upper extremities or right face as per patient's descriptions of symptoms when hospitalist have met with her yesterday evening which have been subacute in nature today this morning, she feels the tingling sensations down the arm have been more pronounced and that nurse was concerned with patient's speech. as patient spoke with medical doctor she appeared to not have any acute aphasia. Was able to have patient stand up on the bed with some initial unsteadyness but she was able to stand on her own power. No focal motor deficits noted of extremities or of the tongue or eyes. Psychiatric: A+Ox3, euthymic affect (1) Syncope Syncope type: unspecified Qualified Code(s): R55 - Syncope and collapse (2) Migraine Intractability: not intractable Migraine type: unspecified Status migrainosus presence: without status migrainosus Qualified Code(s): G43.909 - Migraine, unspecified, not intractable, without status migrainosus
[2018-11-19] MEDS ORDERED: OPTIRAY 320 125ml IV PRN (10:08)
--- NOTE | 2018-11-19 10:52 | CT Scan Report ---
CT ANGIOGRAM OF THE BRAIN; CT ANGIOGRAM OF THE NECK CLINICAL HISTORY: Syncope. COMPARISON STUDY: Unenhanced CT of the brain dated 11/17/2018. CT of the brain dated 02/14/2018. Carot id artery ultrasound dated 03/23/2016. MR angiogram of the head and neck dated 04/10/2015. TECHNIQUE: Following the IV administration of 119 of Optiray 320, CT angiogram of the head and neck w as performed from the aortic arch to the vertex. Images are reviewed in the axial, sagittal, and sheila nal planes. 3-D MIPS images are created and assessed. IV contrast was administered without complicati on. All measurements were calculated based on NASCET criteria. A dose lowering technique was utilize d adhering to the principles of ALARA. CT DOSE: 698.38 mGy.cm FINDINGS: Brain parenchyma: The brain parenchyma is normal in appearance. There is no hemorrhage, mass effect, or evidence of acute territorial ischemia by CT criteria. A 12 mm calcified nodule along the left ant erior midline falx is typical appearance for a meningioma. There is no evidence of enhancing mass les ion on the angiogram phase images. The ventricles, sulci, and cisterns are normal in configuration. G ray-white matter differentiation is preserved. No extra-axial fluid collection is seen. Thoracic aorta: Visualized portions of the thoracic aorta are normal in caliber. The aortic arch demo nstrates standard 3-vessel anatomy. Right carotid arterial system: The right common carotid artery is widely patent, as are the right int ernal and external carotid arteries. Left carotid arterial system: The left common carotid artery is widely patent, as are the left information technology intern al and external carotid arteries. Vertebral arteries: The vertebral arteries are patent and codominant. Subclavian arteries: Patent bilaterally. Intracranial vasculature: The internal carotid arteries are patent at the skull base, as are the ante rior and middle cerebral arteries bilaterally. The vertebrobasilar system and posterior cerebral karishma nikki are widely patent. The vertebral arteries are codominant. There is no aneurysm, high-grade steno sis, or focal vessel cut off seen throughout the intracranial circulation. Jugular veins: Widely patent bilaterally. Dural sinuses: Patent. Lung apices: Partially visualized upper lobe lung parenchyma appears clear. Soft tissues: The visualized pharyngeal soft tissues are normal in appearance noting angiographic pha se technique. The oropharyngeal airway appears widely patent. The salivary and thyroid glands are nor mal in appearance. No cervical lymphadenopathy is seen. Skeletal structures: The calvarium appears intact. The cervical spine is within normal limits. Orbits: The bony orbits are intact. Orbital contents are normal in appearance. Dentition: Numerous dental caries are identified. Sinuses and mastoids: The paranasal sinuses are clear. The mastoid air cells are well pneumatized. IMPRESSION: 1. There is no hemorrhage, mass effect, or evidence of acute territorial ischemia by CT criteria on t his angiographic phase examination. 2. Unremarkable CT angiogram of the brain. 3. Unremarkable CT angiogram of the neck. 4. There are numerous dental caries identified. Follow-up with dentistry is recommended. 5. A small meningioma along the left anterior falx is unchanged from previous. Electronically signed by: Zander Humphrey M.D. 11/19/2018 10:51 AM
[2018-11-19] MEDS: ONDANSETRON INJ 2 MG/ML 2 ML VIAL IV PRN (11:27)
[2018-11-19] MEDS: PROMETHAZINE HCL 25 MG TAB PO PRN ×2 (13:32→22:11)
--- NOTE | 2018-11-19 15:19 | Neurology Progress Note ---
Date of Service November 19, 2018 Assessment & Plan (1) Migraine: 1. continue current medications 2. start IV NSS 125 cc /h, Mg 1 g q 8 hours, toradol 30 mg IV q 8 hours, benadryl 25 mg q 8 hours, solumetrol 1 gm daily, Zanaflex 4 mg q 8 hours prn. stopped last night 3. discharge on home medication , steroid taper at discharge 4. return visit with neurology already scheduled 5. depakene started 500 mg IV every 8 hours x 6 dosed to break the head 6. flexeril 10 mg q 6 hours prn for neck spasm 7. oral night time dose of depakote stopped for now (2) Syncope: 1. needs orthostatics lying standing sitting 2. PT- Mendel maneuver for spells of dizziness. Supervising Physician Co-Signing Physician Notes I have seen and discussed above patient with Dr Melvin Rowell, neurology I have seen Mrs. Link today, briefly examined her and reviewed the events of the last 24 hours. She really was receiving no particular benefit from the headache "cocktail" that we offered yesterday and apparently this morning became somewhat sedated and dysarthric after receiving I assume Zanaflex. Because of this the entire protocol was stopped and she is now back to her baseline medications and very little or nothing else. Her condition has not changed she still has some tenderness in the right suboccipital region and I toyed with the idea of getting pain management involved once again but she informs me that in the past when we have done this is been no real benefit to injections have not can go down this road again. We are going to try IV Depacon coupled with some Flexeril this time around to see if this will be better tolerated and serve to provide modest degree of sedation and muscle relaxation. We might have to consider some benzodiazepines in the form of Clonazepam or lorazepam in the future. Hopefully this will be necessary We will be back to check her tomorrow. Hopefully she will have some response to her current plan in terms of headache relief. Imaging studies have been repeated and not unsurprisingly revealed no significant changes and are essentially normal in terms of cerebrovascular flow in the cervical and intracranial compartments. Her history remains totally compatible with a protracted migraine with fluctuating neurologic signs and near syncope probably mediated by hypotension Melvin Leblanc Gladis is a 53 year old female with PMH of migraine headaches, depression. She presented after 5 syncopal episodes in the past 2 days. She was walking down her norris at home and developed dizziness and tunnel vision. She felt like she was going to pass out, so she slid down the wall and daughter found her in the hallway. Then a 2nd syncopal event when she was washing dishes and she felt light headed and sat down, worsened migraine headache on right side of head with associated nausea and right upper extremity tingling. States that these are all typical symptoms that she experiences with migraines. Took an Imitrex with some relief of headache. Still experiencing right-sided headache, nausea, epigastric pain, photophobia and right upper extremity tingling. She is seen in our office [facility] neurology group for migraine headaches. In the past she has had an extensive workup including MRI, CTA, EEG, cardio workup and LP which were all within normal limits. Last month she was started on Ajovy injections and was started on a wean of Topamax and amitriptyline. She is still taking Depakote, Mag ox, riboflavin, propranolol and imitrex prn. denies CP, SOB, abdominal pain, one sided weakness, numbness, tingling, vision changes, +blurred vision at start of migraine but resolved. last ophthalmology exam 6 months ago. Today she states the headache is the same. The IV medication ordered were d/c due to drowsiness. She states the Zanaflex was the problem but there was no drowsiness with the other medications and took her trazadone for sleep last night. She is receiving treatment from PT for the vertigo but states the head is the same. Physical Exam Vital Signs (Past 24 Hours): Last Vital Signs Temp 36.4 C L 11/19/18 11:02 Pulse 63 11/19/18 11:02 Resp 18 11/19/18 11:02 BP 133/82 11/19/18 11:02 Pulse Ox 91 11/19/18 11:02 Gen: alert NAD PERRLA/ EOM lungs: CTA CV RRR no pronator drift facial symmetry Results & Data Laboratory Results Abnormal lab results 11/19/18 11/19/18 Range/Units 07:51 07:51 WBC 13.25 H (4.8-10.8) K/uL RBC 4.10 L (4.2-5.4) M/uL Hct 35.1 L (37-47) % Chloride 109 H (98-107) mmol/L Carbon Dioxide 19 L (21-32) mmol/L Glucose 190 H (70-99) mg/dl Calcium 8.2 L (8.5-10.1) mg/dl Diagnostic Findings CTA head- There is no hemorrhage, mass effect, or evidence of acute territorial ischemia by CT criteria on this angiographic phase examination. Unremarkable CT angiogram of the brain. Unremarkable CT angiogram of the neck. There are numerous dental caries identified. Follow-up with dentistry is recommended. A small meningioma along the left anterior falx is unchanged from previous. (1) Migraine Intractability: not intractable Migraine type: unspecified Status migrainosus presence: without status migrainosus Qualified Code(s): G43.909 - Migraine, unspecified, not intractable, without status migrainosus (2) Syncope Syncope type: unspecified Qualified Code(s): R55 - Syncope and collapse
[2018-11-19] MEDS: VALPROATE SOD 500 MG in DEXTROSE 5% 50 ML IV SCH (16:02)
[2018-11-19] MEDS: TRAZODONE HCL 100 MG TAB PO SCH (22:11)
[2018-11-19] MEDS: FAMOTIDINE 20 MG TAB PO SCH (22:12)
[2018-11-20] MEDS: VALPROATE SOD 500 MG in DEXTROSE 5% 50 ML IV SCH ×3 (00:11→17:29)
[2018-11-20] MEDS: ACETAMINOPHEN 1,000 MG/100 ML VIAL IV SCH ×3 (06:31→21:54)
[2018-11-20] MEDS: LEVOTHYROXINE SODIUM 25 MCG TABLET PO SCH (06:31)
[2018-11-20] MEDS: ONDANSETRON INJ 2 MG/ML 2 ML VIAL IV PRN (07:54)
[2018-11-20] MEDS: PANTOprazole 40 MG TAB PO SCH ×2 (08:39→21:54)
[2018-11-20] MEDS: GABAPENTIN 300 MG CAP PO SCH ×3 (08:39→21:54)
[2018-11-20] MEDS: DULOXETINE HCL 30 MG CAP PO SCH (08:40)
[2018-11-20] MEDS: FAMOTIDINE 20 MG TAB PO SCH ×2 (08:40→21:53)
[2018-11-20] MEDS: PROPRANOLOL HCL 20 MG TAB PO SCH (08:40)
[2018-11-20] MEDS: BuPROPion XL 300 MG TABCR PO SCH (08:40)
[2018-11-20] MEDS: MAGNESIUM OXIDE 400 MG TAB PO SCH (08:41)
[2018-11-20] MEDS: methylPREDNISolone 1,000 MG in DEXTROSE 5% 250 ML IV SCH (08:45)
[2018-11-20] MEDS: DOCUSATE SODIUM SYRUP 100 MG/10 ML UDC PO SCH ×2 (11:07→21:54)
[2018-11-20] MEDS: SENNA 8.8 MG/5 ML UDP PO SCH (11:08)
[2018-11-20] MEDS ORDERED: ALUMINUM/MAGNESIUM SUSP 30 ML UDC PO STA (11:54)
--- NOTE | 2018-11-20 13:58 | Neurology Progress Note ---
Date of Service November 20, 2018 Assessment & Plan (1) Migraine: 1. ortho static as ordered 2. continue IV NSS 125 cc /h, Mg 1 g q 8 hours, 3. discharge on home medications , steroid taper at discharge 4. return visit with neurology already scheduled 5. depakene started 500 mg IV every 8 hours x 6 dosed to break the headache 6. flexeril 10 mg q 6 hours prn for neck spasm 7. oral night time dose of depakote stopped for now 8. would do a abdominal xray and if continues to have abdominal issues with no relief would CT abdomen. Patient states she has a history of diverticulosis 9. PT/OT as needed will follow in our clinic 4-6 weeks after discharge from hospital or at scheduled visit Sara MILAN (2) Syncope: 1. needs orthostatics lying standing sitting 2. PT- Mendel maneuver for spells of dizziness. Supervising Physician Co-Signing Physician Notes I have seen and discussed above patient with Dr Melvin Rowell, neurology I saw Mrs. Link today and find her to be a little more comfortable her headaches reportedly down from a 10 out of 10 to a 7 out of 10 she has the room lights off but is looking at television and using her computer so there is not that much photophobia and her neck stiffness seems to be a nonissue right now. She does have some constipation and the internal medicine team is trying to work on that. We did not start the Flexeril which would be an anticholinergic agent and would have confounded to treatment of her constipation so in retrospect from glad we hesitated on this. She is on Depacon IV 500 mg every 8 hours and this s eems to be at least associated with some improvement although she may have been doing this anyway her pattern in the past is to be admitted, have several days of headaches and then eventually be discharged after about a week or so and if she runs true to form my suspicions are we will we will discharge her by the end of the week We will check back again tomorrow. Melvin Rowell MD [facility] is a 53 year old female with PMH of migraine headaches, depression. She presented after 5 syncopal episodes in the past 2 days. She was walking down her norris at home and developed dizziness and tunnel vision. She felt like she was going to pass out, so she slid down the wall and daughter found her in the hallway. Then a 2nd syncopal event when she was washing dishes and she felt light headed and sat down, worsened migraine headache on right side of head with associated nausea and right upper extremity tingling. States that these are all typical symptoms that she experiences with migraines. Took an Imitrex with some relief of headache. Still experiencing right-sided headache, nausea, epigastric pain, photophobia and right upper extremity tingling. She is seen in our office [facility] neurology group for migraine headaches. In the past she has had an extensive workup including MRI, CTA, EEG, cardio workup and LP which were all within normal limits. Last month she was started on Ajovy injections and was started on a wean of Topamax and amitriptyline. She is still taking Depakote, Mag ox, riboflavin, propranolol and imitrex prn. denies CP, SOB, abdominal pain, one sided weakness, numbness, tingling, vision changes, +blurred vision at start of migraine but resolved. last ophthalmology exam 6 months ago. Depacone IV was started yesterday and she states her headache is better. Unfortunately she is having abdominal pain which she is receiving medications to relieve constipation. Has not been as dizzy as previous. No imaging has been done. denies CP, SOB, one sided weakness numbness tingling, N, V. Physical Exam Vital Signs (Past 24 Hours): Last Vital Signs Temp 36.5 C 11/20/18 11:57 Pulse 82 11/20/18 11:57 Resp 18 11/20/18 11:57 BP 149/80 H 11/20/18 11:57 Pulse Ox 92 11/20/18 11:57 Gen: alert NAD lungs CTA CV RRR abdomen acutely tender no pronator drift finger to nose with no bi pass strength UE hand correspondence renew clerk biceps (1) Migraine Intractability: not intractable Migraine type: unspecified Status migrainosus presence: without status migrainosus Qualified Code(s): G43.909 - Migraine, unspecified, not intractable, without status migrainosus (2) Syncope Syncope type: unspecified Qualified Code(s): R55 - Syncope and collapse
[2018-11-20] MEDS ORDERED: HYDROmorphone INJ 1 MG/ML SYRINGE IV STA (17:40)
--- NOTE | 2018-11-20 17:49 | Hospitalist Progress Note ---
Date of Service November 20, 2018 Assessment & Plan (1) Syncope: reported syncopal episodes at home (2) Migraine: This is a 53-year-old female with a PMH of migraine headaches, depression and other medical problems listed below who presents after 3 syncopal episodes in the past 2 days. intractable migraine headache -History of complex migraine presentation including syncope and right upper extremity paresthesias -has been seen by neurology clinic as outpatient with [facility], with recent addition of Ajovy injection last month --Has been admitted in the past for workup including MRI, CTA, EEG, cardio workup and LP which were all wnl -11/17/[address], cervical spine CT, CXR without acute abnormalities -Continue home medication including Depakote, propranolol, gabapentin, magnesium, riboflavin and Imitrex PRN -initial Neurology consult: suggested of 125 cc /h, Mg 1gm q8h, toradol 30mg IV q8h, benadryl 25 mg q8h, solumedrol 1gm daily and Zanaflex 4 mg q8h prn -11/19/18: patient may be over medicated and will hold off Benadryl and Zanaflex and Toradol and Phenergan for now, Patient had dilaudid recently and also will hold. will send for CTA of Head and Neck to rule out any occlusions from recent increased in paresthesias may are right sided or upper extremity and right face CTA head and neck without evidence of occulsion -11/19/18 to 11/20/18; neurology had valproic acid 500 mg IV every 8 hours for the headache as the primary medication change (3) Upper abdominal pain: initial complaint of upper abdominal pain appears resolved from admission by 11/19/18 but on 11/20/17: Patient with abdominal pain. Patient has not had vomiting. denies problems with bowel movements. was given stool softeners and bowel regimen. Had given patient already maalox today without relief. At this time will hold off on IV valproic acid. give dilaudid x 1 mg at this time. will give flexeril. Continue other pain and antiemetic medications -consider abdominal imaging of pain does not improve (4) Psoriatic arthritis: Continue Enbrel injection (5) Depression: Stable. Continue Wellbutrin, Cymbalta (6) GERD (gastroesophageal reflux disease): Continue PPI, H2 billie (7) Edema: at home on Triamterene-HCTZ PRN for history of edema of extremities currently euvolemic and hold for now Code status: FULL PCP: Kathrin Subjective Patient has been having abdominal discomfort today. Patient able to pass gas. Patient more distressed about abdominal discomfort than headache. Patient has not had vomiting. denies problems with bowel movements. was given stool softeners and bowel regimen. Had given patient already maalox today without relief. At this time will hold off on IV valproic acid. give dilaudid x 1 mg at this time. will give flexeril. Continue other pain medications and antiemetic medications Physical Exam Vital Signs (Past 24 Hours): Last Vital Signs Temp 36.6 C 11/20/18 16:22 Pulse 77 11/20/18 16:22 Resp 18 11/20/18 16:22 BP 166/85 H 11/20/18 16:22 Pulse Ox 92 11/20/18 16:22 Constitutional: WD/WN, vitals as above Eyes: PERRL, conjunctivae normal, anicteric sclerae EOM intact bilaterally ENMT: external ear and nose normal, oropharynx normal Neck: trachea midline, no thyromegaly Respiratory: normal respiratory effort, lungs clear to auscultation Cardiovascular: RRR, no murmur, no edema Gastrointestinal (Abdomen): normal bowel sounds, soft, nontender, no hepatosplenomegaly Musculoskeletal: Head/Neck/Chest: normocephalic and head atraumatic Psychiatric: A+Ox3, euthymic affect (1) Syncope Syncope type: unspecified Qualified Code(s): R55 - Syncope and collapse (2) Migraine Intractability: not intractable Migraine type: unspecified Status migrainosus presence: without status migrainosus Qualified Code(s): G43.909 - Migraine, unspecified, not intractable, without status migrainosus
--- NOTE | 2018-11-20 19:03 | XRay Report ---
XR abdomen min 2V CLINICAL HISTORY: 53 years-old Female presenting with abdominal pain. TECHNIQUE: Single supine view of the abdomen was obtained. COMPARISON: . FINDINGS: Image quality is markedly limited due to portable technique and patient body habitus. Several externa l leads overlie the right upper quadrant degrading evaluation in this region. Suture margins project over the epigastrium. Cholecystectomy clips noted. Nonobstructive bowel gas pa ttern. Due to image quality, limited evaluation for renal calculi. Cardiac silhouette mildly enlarged with mild pulmonary vascular prominence at the relating to supine positioning. Multilevel degenerative changes of the spine. IMPRESSION: 1. Allowing for image quality, no gross evidence of bowel obstruction. If there are continuing sympt oms, consider nonportable radiographic evaluation of the abdomen. Electronically signed by: Alexis Bejarano M.D. 11/20/2018 7:02 PM
[2018-11-20] MEDS: TRAZODONE HCL 100 MG TAB PO SCH (21:54)
[2018-11-20] MEDS: CYCLOBENZAPRINE HCL 10 MG TAB PO PRN (22:14)
[2018-11-21] MEDS: ACETAMINOPHEN 1,000 MG/100 ML VIAL IV SCH ×3 (05:50→21:37)
[2018-11-21] MEDS: LEVOTHYROXINE SODIUM 25 MCG TABLET PO SCH (05:51)
[2018-11-21 06:24] LABS: Hematocrit (blood only) 33.6 % (37-47); Hemoglobin 11.2 g/dL (12.0-16.0); Immature Granulocytes # (auto) 0.03 K/uL (0.00-0.02); Immature Granulocytes % (auto) 0.3 %; Lymphocytes # (auto) 1.02 K/uL (1.2-3.4); Lymphocytes % (auto) 8.6 %; Mean Corpuscular Hgb Conc 33.3 g/dL (32-36); Mean Corpuscular Volume 84.8 fL (80-100); Mean Platelet Volume 9.3 fL (7.4-10.4); Monocytes # (auto) 0.66 K/uL (0.11-0.59); Monocytes % (auto) 5.6 %; Neutrophils # (auto) 10.12 K/uL (1.4-6.5); Neutrophils % (auto) 85.5 %; Platelet Count 269 K/uL (130-400); RDW Coefficient of Variation 14.5 % (11.5-14.5); RDW Standard Deviation 44.9 fL (36.4-46.3); Red Blood Count 3.96 M/uL (4.2-5.4); White Blood Count 11.83 K/uL (4.8-10.8)
[2018-11-21 06:55] LABS: BUN Creatinine Ratio 20.8 (10-20); Creatinine Clr Calc Pharmacy 82.1 ml/min; Est GFR (African American) 79.2; Est GFR (Non-African American) 68.3; Potassium 4.8 mmol/L (3.5-5.1)
[2018-11-21 06:58] LABS: Bilirubin,Total 0.2 mg/dl (0.2-1); Globulin 2.9 gm/dl (2.5-4.0); Total Protein 5.9 gm/dl (6.4-8.2)
--- NOTE | 2018-11-21 07:02 | Ultrasound Report ---
ABDOMINAL ULTRASOUND, RIGHT UPPER QUADRANT HISTORY: Right upper quadrant pain. COMPARISON: CT of the abdomen and pelvis December 29, 2017. FINDINGS: This exam is compromised by suboptimal penetration. The pancreas is secured by overlying karen wel gas. There is no biliary ductal dilatation status post cholecystectomy. The common bile duct tish ures 6 mm in caliber. No common bile duct calculi are identified although the distal common bile duct is obscured. There is no abnormality within the cholecystectomy bed. There is no right hydronephrosi s. Hepatic echogenicity is at the upper limits of normal. There is no right hydronephrosis. IMPRESSION: 1. No biliary ductal dilatation status post cholecystectomy. 2. Study compromised by suboptimal penetration. Obscured pancreas. Electronically signed by: Yang Hansen M.D. 11/21/2018 7:00 AM
[2018-11-21] MEDS: GABAPENTIN 300 MG CAP PO SCH ×3 (07:56→20:12)
[2018-11-21] MEDS: PANTOprazole 40 MG TAB PO SCH ×2 (07:56→20:14)
[2018-11-21] MEDS: DULOXETINE HCL 30 MG CAP PO SCH (07:56)
[2018-11-21] MEDS: MAGNESIUM OXIDE 400 MG TAB PO SCH (07:57)
[2018-11-21] MEDS: PROPRANOLOL HCL 20 MG TAB PO SCH (07:57)
[2018-11-21] MEDS: DOCUSATE SODIUM SYRUP 100 MG/10 ML UDC PO SCH ×3 (07:57→20:10)
[2018-11-21] MEDS: BuPROPion XL 300 MG TABCR PO SCH (07:57)
[2018-11-21] MEDS: FAMOTIDINE 20 MG TAB PO SCH ×2 (07:57→20:12)
[2018-11-21] MEDS: SENNA 8.8 MG/5 ML UDP PO SCH (07:58)
[2018-11-21] MEDS: CYCLOBENZAPRINE HCL 10 MG TAB PO PRN (08:01)
--- NOTE | 2018-11-21 09:34 | Hospitalist Progress Note ---
Date of Service November 21, 2018 Assessment & Plan (1) Syncope: reported syncopal episodes at home (2) Migraine: per Dr. Rivera's notes" This is a 53-year-old female with a PMH of migraine headaches, depression and other medical problems listed below who presents after 3 syncopal episodes in the past 2 days. intractable migraine headache -History of complex migraine presentation including syncope and right upper extremity paresthesias -has been seen by neurology clinic as outpatient with [facility], with recent addition of Ajovy injection last month --Has been admitted in the past for workup including MRI, CTA, EEG, cardio workup and LP which were all wnl -11/17/[address], cervical spine CT, CXR without acute abnormalities -Continue home medication including Depakote, propranolol, gabapentin, magnesium, riboflavin and Imitrex PRN -initial Neurology consult: suggested of 125 cc /h, Mg 1gm q8h, toradol 30mg IV q8h, benadryl 25 mg q8h, solumedrol 1gm daily and Zanaflex 4 mg q8h prn -11/19/18: patient may be over medicated and will hold off Benadryl and Zanaflex and Toradol and Phenergan for now, Patient had dilaudid recently and also will hold. will send for CTA of Head and Neck to rule out any occlusions from recent increased in paresthesias may are right sided or upper extremity and right face CTA head and neck without evidence of occulsion -11/19/18 to 11/20/18; neurology had valproic acid 500 mg IV every 8 hours for the headache as the primary medication change 11/21/18 headache much better continue Depakote HS per Neuro ff up with Neuro in 4-6 weeks (3) Abdominal pain: r/o Diverticulitis history of Gastric Bypass -- CT abd/pelvis today PRN Tramadol soft diet (4) Psoriatic arthritis: Continue Enbrel injection (5) Depression: Stable. Continue Wellbutrin, Cymbalta (6) GERD (gastroesophageal reflux disease): Continue PPI, H2 blilie (7) Edema: at home on Triamterene-HCTZ PRN for history of edema of extremities currently euvolemic and hold for now Code status: FULL PCP: Mainali Subjective ff up for syncope, migraine, abdominal pain seen resting in bed, watching TV states abdominal pain was severe last night improved with Dilaudid states moderate this morning, no nausea, (+) BM, no blood headache much better no syncope denies other symptoms Physical Exam Vital Signs (Past 24 Hours): Last Vital Signs Temp 36.6 C 11/21/18 07:51 Pulse 61 11/21/18 08:22 Resp 19 11/21/18 07:51 BP 151/84 H 11/21/18 07:51 Pulse Ox 93 11/21/18 07:51 Physical Exam: General- oriented x 3, not in distress, speaks in sentences with no effort or accessory muscle use Eyes- anicteric Neck- no JVD Lungs- clear breath sounds bilaterally, no rales/wheezes Heart- normal rate, regular rhythm; no murmurs Abdomen- normal bowel sounds, nondistended, soft, (+) mild tenderness on the RLQ region Extremities- no pretibial edema, no calf tenderness Neuro- alert, oriented x 3; no gross focal neurologic deficits Skin- warm & dry Results & Data Laboratory Results Laboratory Results - last 24 hr 11/21/18 11/21/18 06:12 06:12 WBC 11.83 H RBC 3.96 L Hgb 11.2 L Hct 33.6 L MCV 84.8 MCH 28.3 MCHC 33.3 RDW Std Deviation 44.9 RDW Coeff of Halley 14.5 Plt Count 269 MPV 9.3 Immature Gran % (Auto) 0.3 Neut % (Auto) 85.5 Lymph % (Auto) 8.6 [place] % (Auto) 5.6 Eos % (Auto) 0.0 Baso % (Auto) 0.0 Immature Gran # (Auto) 0.03 H Neut # (Auto) 10.12 H Lymph # (Auto) 1.02 L [place] # (Auto) 0.66 H Eos # (Auto) 0.00 Baso # (Auto) 0.00 Sodium 137 Potassium 4.8 Chloride 103 Carbon Dioxide 26 Anion Gap 8.0 BUN 20 H D Creatinine 0.94 Est Cr Clr Drug Dosing 82.1 Est GFR ( Amer) 79.2 Est GFR (Non-Af Amer) 68.3 BUN/Creatinine Ratio 20.8 H Glucose 133 H Calcium 8.0 L Total Bilirubin 0.2 AST 9 L ALT 23 Alkaline Phosphatase 104 Total Protein 5.9 L Albumin 3.0 L Globulin 2.9 Albumin/Globulin Ratio 1.0 Lipase 38 L (1) Syncope Syncope type: unspecified Qualified Code(s): R55 - Syncope and collapse (2) Migraine Intractability: not intractable Migraine type: unspecified Status migrainosus presence: without status migrainosus Qualified Code(s): G43.909 - M igraine, unspecified, not intractable, without status migrainosus
[2018-11-21] MEDS: HYDROmorphone INJ 0.5 MG/0.5 ML SYR IV PRN ×2 (10:33→16:40)
--- NOTE | 2018-11-21 10:35 | CT Scan Report ---
CT OF THE ABDOMEN AND PELVIS WITHOUT CONTRAST CLINICAL HISTORY: Left lower quadrant pain. Evaluate for acute diverticulitis. COMPARISON STUDY: CT of the abdomen and pelvis December 29, 2017. TECHNIQUE: Axial images of the abdomen and pelvis were obtained without IV contrast. Images were revi ewed in the axial, sagittal, and coronal planes. Automated exposure control was utilized for the haydee dy. A dose lowering technique was utilized adhering to the principles of ALARA. FINDINGS: No renal, ureteral or bladder calculi are present. There is no hydronephrosis or hydrourete r. Evaluation the remainder of the abdomen and pelvis is suboptimal on this unenhanced examination. T here are postoperative findings consistent with Neel-en-Y gastric bypass. There is no evidence for a bowel obstruction. There is no biliary ductal dilatation status post cholecystectomy. There is no per ipancreatic infiltration. There is no evidence for acute diver vasculitis. The appendix is not visual ized. There is no ascites or lymphadenopathy. No suspicious osseous lesions are noted in the appearan ce of the abdomen and pelvis is similar to prior exam. IMPRESSION: 1. No urinary calculi or hydronephrosis. 2. No acute process within the abdomen or pelvis on unenhanced exam. Electronically signed by: Yang Hansen M.D. 11/21/2018 10:34 AM
--- NOTE | 2018-11-21 14:43 | Neurology Progress Note ---
Date of Service November 21, 2018 Assessment & Plan (1) Migraine: 1. ortho static as ordered 2. GI work up per primary team 3. discharge on home medications , steroid taper at discharge 4. return visit with neurology already scheduled 5. restart home dosing of Depakote 500 mg hs 6. flexeril 10 mg q 6 hours prn for neck spasm- not while having gastric issues 7. abdominal xray and CT abdomen. no acute findings 9. PT/OT as needed will follow up in our clinic as scheduled. per neurology ok for discharge when medically stable. (2) Syncope: 1. needs orthostatics lying standing sitting 2. PT- Mendel maneuver for spells of dizziness. Supervising Physician Co-Signing Physician Notes I have seen and discussed above patient with Dr Melvin Rowell, neurology I saw Gladis today and she feels significantly better her headache levels down to 5-6 she does not have any photophobia but really has not challenged herself by opening her blinds I suggested she do so. She intends to go home tomorrow and the Depakote because an IV program is done she is going be switched to oral therapy and hopefully will be discharged to home on her regular medicines and the Ajovy which hopefully after another few months of injections will serve to reduce her headache frequency significantly. She is failed on almost every other therapeutic regimen to date safer Botox and unfortunately she was not felt to be a candidate for because of lack of insurance coverage. At this point her exam is normal as is still little stiffness of her neck with no meningeal signs and the rest of it is nonfocal. Neurology will sign off anticipating her discharge tomorrow and follow-up arrangements to see Sara Rushing in our clinic are already in place. Melvin Rowell MD Subjective Gladis is a 53 year old female with PMH of migraine headaches, depression. She presented after 5 syncopal episodes in the past 2 days. She was walking down her norris at home and developed dizziness and tunnel vision. She felt like she was going to pass out, so she slid down the wall and daughter found her in the hallway. Then a 2nd syncopal event when she was washing dishes and she felt light headed and sat down, worsened migraine headache on right side of head with associated nausea and right upper extremity tingling. States that these are all typical symptoms that she experiences with migraines. Took an Imitrex with some relief of headache. Still experiencing right-sided headache, nausea, epigastric pain, photophobia and right upper extremity tingling. She is seen in our office [facility] for migraine headaches. In the past she has had an extensive workup including MRI, CTA, EEG, cardio workup and LP which were all within normal limits. Last month she was started on Ajovy injections and was started on a wean of Topamax and amitriptyline. She is still taking Depakote, Mag ox, riboflavin, propranolol and imitrex prn. denies CP, SOB, abdominal pain, one sided weakness, numbness, tingling, vision changes, +blurred vision at start of migraine but resolved. last ophthalmology exam 6 months ago. Depacone IV has been given IV and her headache has improved to a 6/10. Unfortunately she is having abdominal pain which she is receiving medications to relieve constipation. imaging showed no bowel obstruction. denies CP, SOB, one sided weakness numbness tingling, N, V. Physical Exam Vital Signs (Past 24 Hours): Last Vital Signs Temp 36.5 C 11/21/18 11:10 Pulse 73 11/21/18 11:10 Resp 18 11/21/18 11:10 BP 152/84 H 11/21/18 11:04 Pulse Ox 98 11/21/18 11:10 Gen: alert NAD perrl/EOMI lungs CTA CV RRR strength 5/5 bilaterally biceps triceps [employer], hip flex Results & Data Laboratory Results Abnormal lab results 11/21/18 11/21/18 Range/Units 06:12 06:12 WBC 11.83 H (4.8-10.8) K/uL RBC 3.96 L (4.2-5.4) M/uL Hgb 11.2 L (12.0-16.0) g/dL Hct 33.6 L (37-47) % Immature Gran # (Auto) 0.03 H (0.00-0.02) K/uL Neut # (Auto) 10.12 H (1.4-6.5) K/uL Lymph # (Auto) 1.02 L (1.2-3.4) K/uL [place] # (Auto) 0.66 H (0.11-0.59) K/uL BUN 20 H D (7-18) mg/dl BUN/Creatinine Ratio 20.8 H (10-20) Glucose 133 H (70-99) mg/dl Calcium 8.0 L (8.5-10.1) mg/dl AST 9 L (15-37) U/L Total Protein 5.9 L (6.4-8.2) gm/dl Albumin 3.0 L (3.4-5.0) gm/dl Lipase 38 L (73-393) U/L Diagnostic Findings CT abd/pelvis-. No urinary calculi or hydronephrosis. No acute process within the abdomen or pelvis on unenhanced exam. (1) Migraine Intractability: not intractable Migraine type: unspecified Status migrainosus presence: without status migrainosus Qualified Code(s): G43.909 - Migraine, unspecified, not intractable, without status migrainosus (2) Syncope Syncope type: unspecified Qualified Code(s): R55 - Syncope and collapse
[2018-11-21] MEDS: SULFAMETHOXAZOLE/TRIMETHOPRIM DS 800/160MG TAB PO SCH (20:13)
[2018-11-21] MEDS: metroNIDAZOLE 500 MG TAB PO SCH (20:13)
[2018-11-21] MEDS: TRAZODONE HCL 100 MG TAB PO SCH (21:37)
[2018-11-21] MEDS: DIVALPROEX EXTENDED RELEASE 250 MG TABCR PO SCH (21:37)
[2018-11-22] MEDS: LEVOTHYROXINE SODIUM 25 MCG TABLET PO SCH (05:40)
[2018-11-22] MEDS: ACETAMINOPHEN 1,000 MG/100 ML VIAL IV SCH ×2 (05:40→13:57)
[2018-11-22] MEDS: DOCUSATE SODIUM SYRUP 100 MG/10 ML UDC PO SCH ×2 (07:56→19:18)
[2018-11-22] MEDS: metroNIDAZOLE 500 MG TAB PO SCH ×3 (07:56→19:19)
[2018-11-22] MEDS: SULFAMETHOXAZOLE/TRIMETHOPRIM DS 800/160MG TAB PO SCH ×2 (07:56→19:18)
[2018-11-22] MEDS: SENNA 8.8 MG/5 ML UDP PO SCH (07:56)
[2018-11-22] MEDS: GABAPENTIN 300 MG CAP PO SCH ×3 (07:56→19:20)
[2018-11-22] MEDS: FAMOTIDINE 20 MG TAB PO SCH ×2 (07:57→19:20)
[2018-11-22] MEDS: ERGOCALCIFEROL 50,000 UNITS CAP PO SCH (07:57)
[2018-11-22] MEDS: CYCLOBENZAPRINE HCL 10 MG TAB PO PRN (07:57)
[2018-11-22] MEDS: BuPROPion XL 300 MG TABCR PO SCH (07:57)
[2018-11-22] MEDS: PROPRANOLOL HCL 20 MG TAB PO SCH (07:57)
[2018-11-22] MEDS: MAGNESIUM OXIDE 400 MG TAB PO SCH (07:57)
[2018-11-22] MEDS: DULOXETINE HCL 30 MG CAP PO SCH (07:58)
[2018-11-22] MEDS: PANTOprazole 40 MG TAB PO SCH ×2 (08:41→19:20)
--- NOTE | 2018-11-22 09:55 | Gastrointestinal Consultation ---
Date of Consultation November 22, 2018 Assessment & Plan (1) Abdominal pain: Acute on chronic upper abdomen pain, most likely functional as EGD was normal with similar pain in December 2017 and labs, CT normal during this admission. 1. Consider dicylomine 10mg po QID 2. Continue daily PPI. Continue NSAID avoidance. 3. No plans for repeat EGD at this time. 4. No GI contraindication to regular diet. 5. GI will sign off. Supervising Physician Co-Signing Physician Notes I have personally seen and examined the patient with LISA Chris. Her note reflects my exam and findings. I agree with her impression and plan. CT without obvious diverticulitis. Follow clinically. Advance diet as tolerates. Irwin Márquez M.D. History of Present Illness Reason for Consultation: upper abdomen pain Requesting Physician: Dr. Perry Attending Physician: Tano Perry MD History of Present Illness Ms. Gladis Link is a 53 yr old female pt of Dr. Salazar with a hx of obesity S/P RYGB, psoriatic arthritis, migraines who presented for syncope on 11/17. She has a hx of GERD and began with epgastric pain one day prior to admission. GI is consulted for continued pain. CBC, LFTs, lipase w/o significant abnormalities and stool occult is (-). A Ct w/o contrast completed yesterday was w/o abnormalities. She has had previous similar abdominal pain. Her most recent EGD was on 01/02/[address] Elmore for upper abdomen pain: - Normal esophagus. - Neel-en-Y gastrojejunostomy with health appearance. Two sutures noted in the gastric pouch- unable to be removed endoscopically. Small erosion near one of the suture sites. - Normal examined jejunum.Her most recent colonoscopy was She underwent a screening colonoscopy on 08/30/[address] Jean Baptiste: - Non-thrombosed external hemorrhoids found on digital rectal exam. - Moderate diverticulosis in the sigmoid colon, in the descending colon, in the transverse colon and in the ascending colon. - Internal hemorrhoids. - The examination was otherwise normal. Allergies Allergy/AdvReac Type Severity Reaction Status Date / Time oxycodone Allergy Intermediate HIVES Verified 11/17/18 13:19 piperacillin Allergy Intermediate Pruritus Verified 11/17/18 13:19 tazobactam Allergy Intermediate Pruritus Verified 11/17/18 13:19 ketorolac Allergy Mild Itching Verified 11/17/18 13:19 vancomycin AdvReac Unknown deathly ill Unverified 11/17/18 13:19 Home Medications Home Medications Medication Instructions Recorded Confirmed Type albuterol sulfate [Ventolin HFA] 2 puff INHALATION QID PRN 07/17/18 11/17/18 History ergocalciferol (vitamin D2) 50,000 units PO 2XWK 07/17/18 11/17/18 History [Vitamin D2] etanercept [Enbrel] 50 mg SUBCUT WK 07/17/18 11/17/18 History gabapentin 300 mg PO TID 07/17/18 11/17/18 History levothyroxine [Synthroid] 25 mcg PO DAILY 07/17/18 11/17/18 History magnesium oxide 400 mg PO DAILY 07/17/18 11/17/18 History ondansetron HCl [Zofran] 8 mg PO Q8H PRN 07/17/18 11/17/18 History pantoprazole [Protonix] 40 mg PO BID 07/17/18 11/17/18 History promethazine 25 mg PO Q8H PRN 07/17/18 11/17/18 History propranolol 60 mg PO DAILY 07/17/18 11/17/18 History riboflavin (vitamin B2) [Vitamin 400 mg PO DAILY 07/17/18 11/17/18 History B-2] sumatriptan succinate [Imitrex] 50 mg PO UD PRN 07/17/18 11/17/18 History trazodone 100 mg PO HS 07/17/18 11/17/18 History famotidine 20 mg PO BID #20 tab 07/27/18 11/17/18 Rx bupropion HCl 300 mg PO QAM 11/17/18 11/17/18 History divalproex [Depakote ER] 500 mg PO HS 11/17/18 11/17/18 History duloxetine 30 mg PO DAILY 11/17/18 11/17/18 History fremanezumab-vfrm 0.01 ml SUBCUT MONTHLY 11/17/18 11/17/18 History lorazepam [Ativan] 0.5 mg PO DAILY PRN 11/17/18 11/17/18 History triamterene-hydrochlorothiazid 1 tab PO DAILY PRN 11/17/18 11/17/18 History Patient History Medical History Vertigo (Chronic) GERD (gastroesophageal reflux disease) (Chronic) Edema (Chronic) Depression (Chronic) Sleep apnea (Chronic) MINI (iron deficiency anemia) (Chronic) History of pulmonary embolism (Resolved) "completed 6 months Coumadin therapy" On 06/27/16 17:03 Nuha Zarate wrote On 03/23/16 16:22 Dottie Eladia wrote "2000 per patient; s/p knee replacement" History of DVT (deep vein thrombosis) (Resolved) Psoriatic arthritis (Chronic) Clostridium difficile colitis (Resolved) Surgical History Status post appendectomy (Resolved) Status post cholecystectomy (Resolved) Status post gastric bypass for obesity (Resolved) Status post total knee replacement (Resolved) H/O wisdom tooth extraction (Resolved) History of carpal tunnel surgery (Resolved) S/P hysterectomy (Resolved) History of appendectomy (Resolved) History of cholecystectomy (Resolved) Family History Other No pertinent family history Social History Preferred Language: French Communication Ability: Effective Universal Grinder Operator Required: No Beliefs That Will Affect Care: None Current Living Situation: Spouse Other Information That Helps Us Care for You: No Feels Safe at Home: Yes Safety Concerns: Feels Safe At This Time Smoking Status: Never smoker Hx Alcohol Use: No Hx Substance Use: No Physical Exam Vital Signs (Past 24 Hours): Last Vital Signs Temp 36.7 C 11/22/18 07:38 Pulse 57 L 11/22/18 08:00 Resp 16 11/22/18 07:38 BP 133/83 11/22/18 07:38 Pulse Ox 90 11/22/18 07:38 Constitutional: WD/WN, vitals as above + overweight Eyes: PERRL, conjunctivae normal, anicteric sclerae ENMT: external ear and nose normal, oropharynx normal Neck: trachea midline, no thyromegaly Respiratory: normal respiratory effort, lungs clear to auscultation Cardiovascular: RRR, no murmur, no edema Gastrointestinal (Abdomen): Inspection/Auscultation: abdomen normal to inspection and normal bowel sounds; abdomen not distended Percussion/Palpation: + abdomen tender (epigastric, periumbilical, RUQ, RLQ) and abdomen soft Skin: no rashes, warm and dry Neurologic: PERRL, EOMI, accommodation nl, no face palsy, no dysarthria Psychiatric: A+Ox3, euthymic affect Lymphatic: no cervical or axillary lymphadenopathy Results & Data Laboratory Results CBC, CMP, lipase w/o significant abnormalities Diagnostic Findings CT abd/pelvis w/o contrast on 11/21/18: 1. No urinary calculi or hydronephrosis. 2. No acute process within the abdomen or pelvis on unenhanced exam.
[2018-11-22] MEDS: HYDROmorphone INJ 0.5 MG/0.5 ML SYR IV PRN ×2 (10:22→19:17)
--- NOTE | 2018-11-22 14:44 | Hospitalist Progress Note ---
Date of Service November 22, 2018 Assessment & Plan (1) Syncope: reported syncopal episodes at home (2) Migraine: per Dr. Rivera's notes" This is a 53-year-old female with a PMH of migraine headaches, depression and other medical problems listed below who presents after 3 syncopal episodes in the past 2 days. intractable migraine headache -History of complex migraine presentation including syncope and right upper extremity paresthesias -has been seen by neurology clinic as outpatient with [facility], with recent addition of Ajovy injection last month --Has been admitted in the past for workup including MRI, CTA, EEG, cardio workup and LP which were all wnl -11/17/[address], cervical spine CT, CXR without acute abnormalities -Continue home medication including Depakote, propranolol, gabapentin, magnesium, riboflavin and Imitrex PRN -initial Neurology consult: suggested of 125 cc /h, Mg 1gm q8h, toradol 30mg IV q8h, benadryl 25 mg q8h, solumedrol 1gm daily and Zanaflex 4 mg q8h prn -11/19/18: patient may be over medicated and will hold off Benadryl and Zanaflex and Toradol and Phenergan for now, Patient had dilaudid recently and also will hold. will send for CTA of Head and Neck to rule out any occlusions from recent increased in paresthesias may are right sided or upper extremity and right face CTA head and neck without evidence of occulsion -11/19/18 to 11/20/18; neurology had valproic acid 500 mg IV every 8 hours for the headache as the primary medication change November 22 2018 No headache continue Depakote HS per Neuro ff up with Neuro in 4-6 weeks (3) Abdominal pain: Possible acute diverticulitis history of Gastric Bypass -- CT abd/pelvis without contrast: Unrevealing Started on Bactrim plus Flagyl Seems to be improving today, afebrile GI consulted, Bentyl 4 times daily started, appreciate recommendations Continue to observe PRN Tramadol soft diet (4) Psoriatic arthritis: Continue Enbrel injection (5) Depression: Stable. Continue Wellbutrin, Cymbalta (6) GERD (gastroesophageal reflux disease): Continue PPI, H2 billie (7) Edema: at home on Triamterene-HCTZ PRN for history of edema of extremities currently euvolemic and hold for now Code status: FULL PCP: Mainanais Disposition Pending Anticipate discharge to home medically stable Subjective ff up for syncope, migraine, abdominal pain Seen resting in bed, comfortable, watching TV States abdominal pain is slightly improved today Sitting normal BM, does have some mild nausea Denies fevers or chills, no headache or neurologic symptoms today No other symptoms Physical Exam Vital Signs (Past 24 Hours): Last Vital Signs Temp 36.6 C 11/22/18 11:51 Pulse 65 11/22/18 11:51 Resp 18 11/22/18 11:51 BP 112/74 11/22/18 11:51 Pulse Ox 91 11/22/18 11:51 Physical Exam: General- oriented x 3, not in distress, speaks in sentences with no effort or accessory muscle use Eyes- anicteric Neck- no JVD Lungs- clear breath sounds bilaterally No crackles, no wheezing Heart- normal rate, regular rhythm; no murmurs Abdomen- normal bowel sounds, nondistended, soft, mild tenderness bilateral lower quadrants more on the left Extremities- no pretibial edema, no calf tenderness Neuro- alert, oriented x 3; no gross focal neurologic deficits Skin- warm & dry (1) Migraine Intractability: not intractable Migraine type: unspecified Status migrainosus presence: without status migrainosus Qualified Code(s): G43.909 - Migraine, unspecified, not intractable, without status migrainosus (2) Syncope Syncope type: unspecified Qualified Code(s): R55 - Syncope and collapse
[2018-11-22] MEDS: DIVALPROEX EXTENDED RELEASE 250 MG TABCR PO SCH (19:19)
[2018-11-22] MEDS: TRAZODONE HCL 100 MG TAB PO SCH (21:32)
[2018-11-22] MEDS: ZOLPIDEM TARTRATE 5 MG TAB PO PRN (23:35)
[2018-11-23] MEDS: LEVOTHYROXINE SODIUM 25 MCG TABLET PO SCH (05:50)
[2018-11-23] MEDS: HYDROmorphone INJ 0.5 MG/0.5 ML SYR IV PRN (06:34)
[2018-11-23] MEDS: DOCUSATE SODIUM SYRUP 100 MG/10 ML UDC PO SCH ×2 (07:49→20:24)
[2018-11-23] MEDS: SENNA 8.8 MG/5 ML UDP PO SCH (07:49)
[2018-11-23] MEDS: DULOXETINE HCL 30 MG CAP PO SCH (07:56)
[2018-11-23] MEDS: MAGNESIUM OXIDE 400 MG TAB PO SCH (07:56)
[2018-11-23] MEDS: SULFAMETHOXAZOLE/TRIMETHOPRIM DS 800/160MG TAB PO SCH ×2 (07:56→20:25)
[2018-11-23] MEDS: BuPROPion XL 300 MG TABCR PO SCH (07:56)
[2018-11-23] MEDS: PROPRANOLOL HCL 20 MG TAB PO SCH (07:57)
[2018-11-23] MEDS: FAMOTIDINE 20 MG TAB PO SCH ×2 (07:57→20:24)
[2018-11-23] MEDS: PANTOprazole 40 MG TAB PO SCH ×2 (07:57→20:24)
[2018-11-23] MEDS: GABAPENTIN 300 MG CAP PO SCH ×3 (07:57→20:25)
[2018-11-23] MEDS: metroNIDAZOLE 500 MG TAB PO SCH ×3 (07:57→20:24)
[2018-11-23] MEDS: ONDANSETRON INJ 2 MG/ML 2 ML VIAL IV PRN (11:55)
--- NOTE | 2018-11-23 14:42 | Hospitalist Progress Note ---
Date of Service November 23, 2018 Assessment & Plan (1) Syncope: reported syncopal episodes at home (2) Migraine: per Dr. Rivera's notes" This is a 53-year-old female with a PMH of migraine headaches, depression and other medical problems listed below who presents after 3 syncopal episodes in the past 2 days. intractable migraine headache -History of complex migraine presentation including syncope and right upper extremity paresthesias -has been seen by neurology clinic as outpatient with [facility], with recent addition of Ajovy injection last month --Has been admitted in the past for workup including MRI, CTA, EEG, cardio workup and LP which were all wnl -11/17/[address], cervical spine CT, CXR without acute abnormalities -Continue home medication including Depakote, propranolol, gabapentin, magnesium, riboflavin and Imitrex PRN -initial Neurology consult: suggested of 125 cc /h, Mg 1gm q8h, toradol 30mg IV q8h, benadryl 25 mg q8h, solumedrol 1gm daily and Zanaflex 4 mg q8h prn -11/19/18: patient may be over medicated and will hold off Benadryl and Zanaflex and Toradol and Phenergan for now, Patient had dilaudid recently and also will hold. will send for CTA of Head and Neck to rule out any occlusions from recent increased in paresthesias may are right sided or upper extremity and right face CTA head and neck without evidence of occulsion -11/19/18 to 11/20/18; neurology had valproic acid 500 mg IV every 8 hours for the headache as the primary medication change 2018 No headache continue Depakote HS per Neuro ff up with Neuro in 4-6 weeks (3) Abdominal pain: Possible acute diverticulitis history of Gastric Bypass -- CT abd/pelvis without contrast: Unrevealing Started on Bactrim plus Flagyl Seems to be improving today, afebrile GI consulted, Bentyl 4 times daily started, appreciate recommendations Continue to observe PRN Tramadol soft diet 01/23/2019 Continues to improve DC IV Dilaudid, advance diet Continue antibiotics (4) Psoriatic arthritis: Continue Enbrel injection (5) Depression: Stable. Continue Wellbutrin, Cymbalta (6) GERD (gastroesophageal reflux disease): Continue PPI, H2 billie (7) Edema: at home on Triamterene-HCTZ PRN for history of edema of extremities currently euvolemic and hold for now Code status: FULL PCP: Kathrin Disposition Pending Anticipate discharge to home medically stable Subjective Follow-up for abdominal pain Seen resting in bed, comfortable States abdominal pain is much improved today Has only mild nausea No flatus or bowel movement No fevers or chills Denies other symptoms Physical Exam Vital Signs (Past 24 Hours): Last Vital Signs Temp 37.0 C 11/23/18 11:23 Pulse 63 11/23/18 11:23 Resp 16 11/23/18 11:23 BP 123/84 11/23/18 11:23 Pulse Ox 93 11/23/18 11:23 Physical Exam: General- oriented x 3, not in distress, speaks in sentences with no effort or accessory muscle use Eyes- anicteric Neck- no JVD Lungs- clear breath sounds bilaterally Heart- normal rate, regular rhythm; no murmurs Abdomen- normal bowel sounds, nondistended, soft, nontender Extremities- no pretibial edema, no calf tenderness Neuro- alert, oriented x 3; no gross focal neurologic deficits Skin- warm & dry (1) Migraine Intractability: not intractable Migraine type: unspecified Status migrainosus presence: without status migrainosus Qualified Code(s): G43.909 - Migraine, unspecified, not intractable, without status migrainosus (2) Syncope Syncope type: unspecified Qualified Code(s): R55 - Syncope and collapse
[2018-11-23] MEDS: NYSTATIN SUSP 500,000 U/5 ML UDC PO SCH ×2 (16:22→20:24)
[2018-11-23] MEDS: DIVALPROEX EXTENDED RELEASE 250 MG TABCR PO SCH (20:24)
[2018-11-23] MEDS: TRAZODONE HCL 100 MG TAB PO SCH (22:25)
[2018-11-24] MEDS: DOCUSATE SODIUM 100 MG CAP PO SCH ×2 (00:11→07:33)
[2018-11-24] MEDS ORDERED: SODIUM CHLORIDE 0.9% 1000ML 1,000 ML IV STA (00:27)
[2018-11-24] MEDS: LEVOTHYROXINE SODIUM 25 MCG TABLET PO SCH (05:45)
[2018-11-24] MEDS: SENNA 8.8 MG/5 ML UDP PO SCH (07:33)
[2018-11-24] MEDS: PROPRANOLOL HCL 20 MG TAB PO SCH (07:34)
[2018-11-24] MEDS: DULOXETINE HCL 30 MG CAP PO SCH (07:34)
[2018-11-24] MEDS: GABAPENTIN 300 MG CAP PO SCH (07:34)
[2018-11-24] MEDS: NYSTATIN SUSP 500,000 U/5 ML UDC PO SCH ×2 (07:34→12:35)
[2018-11-24] MEDS: metroNIDAZOLE 500 MG TAB PO SCH (07:35)
[2018-11-24] MEDS: FAMOTIDINE 20 MG TAB PO SCH (07:35)
[2018-11-24] MEDS: MAGNESIUM OXIDE 400 MG TAB PO SCH (07:35)
[2018-11-24] MEDS: SULFAMETHOXAZOLE/TRIMETHOPRIM DS 800/160MG TAB PO SCH (07:35)
[2018-11-24] MEDS: PANTOprazole 40 MG TAB PO SCH (07:35)
[2018-11-24] MEDS: BuPROPion XL 300 MG TABCR PO SCH (07:35)
--- NOTE | 2018-11-24 11:28 | Hospitalist Progress Note ---
Date of Service November 24, 2018 Assessment & Plan (1) Syncope: reported syncopal episodes at home (2) Migraine: per Dr. Rivera's notes" This is a 53-year-old female with a PMH of migraine headaches, depression and other medical problems listed below who presents after 3 syncopal episodes in the past 2 days. intractable migraine headache -History of complex migraine presentation including syncope and right upper extremity paresthesias -has been seen by neurology clinic as outpatient with [facility], with recent addition of Ajovy injection last month --Has been admitted in the past for workup including MRI, CTA, EEG, cardio workup and LP which were all wnl -11/17/[address], cervical spine CT, CXR without acute abnormalities -Continue home medication including Depakote, propranolol, gabapentin, magnesium, riboflavin and Imitrex PRN -initial Neurology consult: suggested of 125 cc /h, Mg 1gm q8h, toradol 30mg IV q8h, benadryl 25 mg q8h, solumedrol 1gm daily and Zanaflex 4 mg q8h prn -11/19/18: patient may be over medicated and will hold off Benadryl and Zanaflex and Toradol and Phenergan for now, Patient had dilaudid recently and also will hold. will send for CTA of Head and Neck to rule out any occlusions from recent increased in paresthesias may are right sided or upper extremity and right face CTA head and neck without evidence of occulsion -11/19/18 to 11/20/18; neurology had valproic acid 500 mg IV every 8 hours for the headache as the primary medication change November 24, 2018 Denies headache, or any neurologic symptoms Continue usual home medications including Depakote Follow-up in the neurology clinic as scheduled (3) Abdominal pain: Possible acute diverticulitis history of Gastric Bypass -- CT abd/pelvis without contrast: Unrevealing Started on Bactrim plus Flagyl Seems to be improving today, afebrile GI consulted, Bentyl 4 times daily started, appreciate recommendations Continue to observe PRN Tramadol soft diet November 24, 2048 Significantly improved Complete 6 more days of Bactrim and Flagyl to finish 10 days of antibiotic course Emphasized to drink plenty of fluids, stay well-hydrated, do not take triamterene hydrochlorothiazide while on Bactrim Check kidney function as an outpatient with follow-up with PCP GI recommends Bentyl 4 times daily, with prescription for 1 week (4) Psoriatic arthritis: Continue Enbrel injection (5) Depression: Stable. Continue Wellbutrin, Cymbalta (6) GERD (gastroesophageal reflux disease): Continue PPI, H2 billie (7) Edema: at home on Triamterene-HCTZ PRN for history of edema of extremities Euvolemic Advised to hold triamterene hydrochlorthiazide while taking Bactrim Code status: FULL PCP: Kathrin DispositioDischarge to home today Appointment clinic close for today, will call for patient's appointment Follow-up with PCP in 3-5 days, follow-up with neurologist as scheduled Follow-up with gastroneurologist as scheduled Subjective Follow-up for abdominal pain Seen resting in bed, comfortable, not in distress States she feels fine overall States abdominal pain is much better, had normal bowel more than yesterday, no nausea, tolerating diet well Denies headache, dizziness, neurologic symptoms No shortness of breath, chest pain, palpitations States she is ready would like to be discharged today Physical Exam Vital Signs (Past 24 Hours): Last Vital Signs Temp 36.6 C 11/24/18 07:55 Pulse 72 11/24/18 07:55 Resp 16 11/24/18 07:55 BP 109/70 11/24/18 07:55 Pulse Ox 94 11/24/18 07:55 Physical Exam: General- oriented x 3, not in distress, speaks in sentences with no effort or accessory muscle use Eyes- anicteric Neck- no JVD Lungs- clear breath sounds bilaterally No wheezing no crackles Heart- normal rate, regular rhythm; no murmurs Abdomen- normal bowel sounds, nondistended, soft, nontender Extremities- no pretibial edema, no calf tenderness Neuro- alert, oriented x 3; no gross focal neurologic deficits Skin- warm & dry (1) Syncope Syncope type: unspecified Qualified Code(s): R55 - Syncope and collapse (2) Migraine Intractability: not intractable Migraine type: unspecified Status migrainosus presence: without status migrainosus Qualified Code(s): G43.909 - Migraine, unspecified, not intractable, without status migrainosus
--- NOTE | 2018-11-24 11:51 | Discharge Summary ---
Date of Service November 24, 2018 Admission HPI Per Admitting Provider This is a 53-year-old female with a PMH of migraine headaches, depression and other medical problems listed below who presents after 3 syncopal episodes in the past 2 days. Patient states that she felt fine until she was walking down her norris at home and developed dizziness and tunnel vision. [place] like she was going to pass out, so she slid down the wall and daughter found her in the hallway. Denies any head trauma. Reports another similar event later that evening. Had another reported syncopal event this morning in the setting of worsened migraine headache on right side of head with associated nausea and r ight upper extremity tingling. States that these are all typical symptoms that she experiences with migraines. Took an Imitrex with some relief of headache. Still experiencing right-sided headache, nausea, epigastric pain, photophobia and right upper extremity tingling. Denies fever, chills, lightheadedness, chest pain, palpitations, shortness of breath, vomiting, dysuria, diarrhea or constipation. Patient follows with Dr. Rowell of neurology group for migraine headaches. Has been admitted in the past for extensive workup including MRI, CTA, EEG, cardio workup and LP which were all within normal limits. Has undergone multiple medication changes within the last year as well, including weaning off of Topamax and amitriptyline. Is currently taking depakote and propranolol as well as Imitrex PRN. Was recently started on Anjovy injection last month. Admission Exam Per Admitting Provider Vital Signs (Past 24 Hours): Last Vital Signs Temp 36.8 C 11/17/18 11:56 Pulse 79 11/17/18 15:48 Resp 16 11/17/18 15:48 BP 125/73 11/17/18 15:48 Pulse Ox 96 11/17/18 15:48 Physical Exam: General Appearance: WD/WN, no apparent distress Head: normocephalic, atraumatic Eyes: normal inspection, PERRL, EOMI ENT: hearing grossly normal, pharynx normal (moist mucous membranes) Neck: supple, no JVD, no adenopathy Respiratory/Chest: lungs clear to auscultation. No wheezes, rales or rhonci. No respiratory distress or accessory muscle use Cardiovascular: regular rate, rhythm, no murmur, normal peripheral pulses Abdomen/GI: normal bowel sounds, soft, epigastric TTP Extremities/Musculoskelatal: normal inspection, no calf tenderness, normal capillary refill, no pedal edema Neurologic/Psych: alert, normal mood/affect, oriented x 3. Strength/ROM intact in extremities Skin: normal color, warm/dry Principal Diagnosis Syncope likely secondary to comp gated migraine; Acute diverticulitis Discharge Exam Vital Signs (Past 24 Hours): Last Vital Signs Temp 36.6 C 11/24/18 07:55 Pulse 72 11/24/18 07:55 Resp 16 11/24/18 07:55 BP 109/70 11/24/18 07:55 Pulse Ox 94 11/24/18 07:55 Physical Exam: General- oriented x 3, not in distress, speaks in sentences with no effort or accessory muscle use Eyes- anicteric Neck- no JVD Lungs- clear breath sounds bilaterally No wheezing no crackles Heart- normal rate, regular rhythm; no murmurs Abdomen- normal bowel sounds, nondistended, soft, nontender Extremities- no pretibial edema, no calf tenderness Neuro- alert, oriented x 3; no gross focal neurologic deficits Skin- warm & dry Discharge Data Allergies Allergy/AdvReac Type Severity Reaction Status Date / Time oxycodone Allergy Intermediate HIVES Verified 11/17/18 13:19 piperacillin Allergy Intermediate Pruritus Verified 11/17/18 13:19 tazobactam Allergy Intermediate Pruritus Verified 11/17/18 13:19 ketorolac Allergy Mild Itching Verified 11/17/18 13:19 vancomycin AdvReac Unknown deathly ill Unverified 11/17/18 13:19 Consultations 11/17/18 13:46 ED Decision to Admit Stat 11/17/18 17:37 Consult Neurology Routine 11/21/18 13:23 Consult Gastroenterology Routine Ordered Studies 11/17/18 12:09 CT cervical spine wo con Stat IMPRESSION: No fractures within the cervical spine. Muscle spasm. 11/17/18 12:10 CT head/brain wo con Stat Impression: No acute intracranial abnormality. 11/19/18 09:08 CT angio head w con Urgent CT angio neck with con Urgent IMPRESSION: 1. There is no hemorrhage, mass effect, or evidence of acute territorial ischemia by CT criteria on this angiographic phase examination. 2. Unremarkable CT angiogram of the brain. 3. Unremarkable CT angiogram of the neck. 4. There are numerous dental caries identified. Follow-up with dentistry is recommended. 5. A small meningioma along the left anterior falx is unchanged from previous. 11/20/18 17:57 US abdomen limited Routine 1. No biliary ductal dilatation status post cholecystectomy. 2. Study compromised by suboptimal penetration. Obscured pancreas. 11/21/18 09:25 CT abd pelvis wo con Stat 1. No urinary calculi or hydronephrosis. 2. No acute process within the abdomen or pelvis on unenhanced exam. Hospital Course (1) Syncope: reported syncopal episodes at home (2) Migraine: This is a 53-year-old female with a PMH of migraine headaches, depression and other medical problems listed below who presents after 3 syncopal episodes in the past 2 days. Intractable migraine headache -History of complex migraine presentation including syncope and right upper extremity paresthesias -has been seen by neurology clinic as outpatient with [facility], with recent addition of Ajovy injection last month --Has been admitted in the past for workup including MRI, CTA, EEG, cardio workup and LP which were all wnl Head CT, cervical spine CT, CXR without acute abnormalities Evaluated by neurologist Dr. Rowell suggested of 125 cc /h, Mg 1gm q8h, toradol 30mg IV q8h, benadryl 25 mg q8h, solumedrol 1gm and Zanaflex 4 mg q8h prn , valproic acid 500 mg IV every 8 hours Patient gradually improved, headache resolved resumed usual medications Recommend outpatient follow-up as scheduled with neurology clinic (3) Abdominal pain: Possible acute diverticulitis history of Gastric Bypass -- CT abd/pelvis without contrast: Unrevealing Started on Bactrim plus Flagyl Improved gradually,Remained afebrile GI consulted, Last EGD December 2017,Does not recommend repeat EGD at this time Significantly improved With antibiotics Complete 6 more days of Bactrim and Flagyl to finish 10 days of antibiotic course Emphasized to drink plenty of fluids, stay well-hydrated, do not take triamterene hydrochlorothiazide while on Bactrim Check kidney function as an outpatient with follow-up with PCP Nystatin times 6 days for oral thrush (4) Psoriatic arthritis: Continue Enbrel injection (5) Depression: Stable. Continue Wellbutrin, Cymbalta (6) GERD (gastroesophageal reflux disease): Continue PPI, H2 billie (7) Edema: at home on Triamterene-HCTZ PRN for history of edema of extremities Euvolemic Advised to hold triamterene hydrochlorthiazide while taking Bactrim Disposition Discharge to home today Appointment clinic close for today, will call for patient's appointment Follow-up with PCP in 3-5 days, follow-up with neurologist as scheduled Follow-up with gastroneurologist as scheduled Total Time Total Time Spent Total Time Spent (In Minutes): 40 minutes Discharge Plan Discharge Items Reason For Visit: SYNCOPE Discharge Diagnosis: Syncope associated with migraine headache, acute diverticulitis Discharge Goals: Diagnostic testing and Therapeutic intervention Activity: As commented below Activity Comment: Resume activity gradually as tolerated, no heavy exertion Lifting: Wait until after follow-up appointment Exercise/Sports: Wait until after follow-up appointment Driving/Machine Use Comment: No driving until reevaluated by primary care physician on follow-up Non-emergency contact: Primary Care Provider Call non-emergency contact if: you have any medication questions, your symptoms worsen, your pain is not controlled, your pain is worsening, your pain is unusual for you, your pain is concerning for you and you have a fever Follow-up/Referrals: Shell Pinon MD [Primary Care Provider] - Diet: Heart Healthy Addtl Provider Instructions: Follow-up with primary care physician in 3-5 days. The clinic will be calling you soon for the appointment. Follow-up with neurologist as scheduled Call primary care physician or return to the ER immediately if with recurrence or worsening of symptoms, increasing abdominal pain, fevers or chills, nausea or vomiting, increasing headache. Prescriptions: New nystatin 100,000 unit/mL Suspension 5 ml PO QID 6 Days Qty: 120 RF: 0 metronidazole 500 mg Tablet 500 mg PO TID 6 Days Qty: 18 RF: 0 sulfamethoxazole-trimethoprim 800-160 mg Tablet 1 tab PO Q12 6 Days Qty: 12 RF: 0 divalproex 250 mg Tablet Extended Release 24 Hr 500 mg PO HS 30 Days Qty: 60 RF: 0 Continued riboflavin (vitamin B2) [Vitamin B-2] 100 mg Tablet 400 mg PO DAILY RF: 0 ondansetron HCl [Zofran] 8 mg Tablet 8 mg PO Q8H PRN (Reason: Nausea) RF: 0 sumatriptan succinate [Imitrex] 50 mg Tablet 50 mg PO UD PRN (Reason: Migraine Headache) RF: 0 propranolol 60 mg Tablet 60 mg PO DAILY RF: 0 levothyroxine [Synthroid] 25 mcg Tablet 25 mcg PO DAILY RF: 0 trazodone 100 mg Tablet 100 mg PO HS RF: 0 pantoprazole [Protonix] 40 mg Tablet,Delayed Release (Dr/Ec) 40 mg PO BID RF: 0 promethazine 25 mg Tablet 25 mg PO Q8H PRN (Reason: Nausea) RF: 0 gabapentin 300 mg capsule 300 mg PO TID RF: 0 ergocalciferol (vitamin D2) [Vitamin D2] 50,000 unit Capsule 50,000 units PO 2XWK RF: 0 albuterol sulfate [Ventolin HFA] 90 mcg/actuation Hfa Aerosol Inhaler 2 puff INHALATION QID PRN (Reason: Shortness Of Breath) RF: 0 magnesium oxide 400 mg magnesium Tablet 400 mg PO DAILY RF: 0 Enbrel 50 mg/mL (0.98 mL) Cartridge 50 mg subcut WK RF: 0 famotidine 20 mg tablet 20 mg PO BID Qty: 20 RF: 0 lorazepam [Ativan] 0.5 mg Tablet 0.5 mg PO DAILY PRN (Reason: Anxiety) RF: 0 bupropion HCl 300 mg Tablet Extended Release 24 Hr 300 mg PO QAM RF: 0 duloxetine 30 mg Capsule,Delayed Release(Dr/Ec) 30 mg PO DAILY RF: 0 fremanezumab-vfrm 225 mg/1.5 mL Syringe 0.01 ml subcut MONTHLY RF: 0 divalproex [Depakote ER] 250 mg Tablet Extended Release 24 Hr 500 mg PO HS RF: 0 Discontinued triamterene-hydrochlorothiazid 37.5-25 mg Tablet 1 tab PO DAILY PRN (Reason: Edema) RF: 0 Stand-Alone Forms: [facility] Admission Data Admit Date/Time: 11/18/18 19:46 Attending Provider: Tano Perry Admit Provider: Jessica Ruggiero Primary Care Provider: Shell Pinon Other Providers: Jessica Ruggiero ; Melvin Rowell ; Terrence Rivera ; Nathaly Sen ; Shannan Flores ; Natalee Riojas ; Tito Lay ; Elias Jean Baptiste ; Nargis Elmore ; Jemima Schofield ; Terll Gonzalez ; Irwin Márquez ; Cinthya Gorman ; Mary Freeman ; Luciana Monson ; Rama Chandra ; Jade Mckeon Service: Telemetry
== END 2018-11-24 13:07 | disposition home or self-care (01) | DRG 103 ==
LOC: ED 11:54 → 2S 11:54 → SUATTDRO 15:29 → 2S 17:03 → SUATTDRO 11-18 19:46

== ENCOUNTER 2019-11-06 17:32 | Observation (INO) ==
[2019-11-06] MEDS ORDERED: NITROGLYCERIN 2% OINTMENT 30GM TUBE EXT STA (17:42)
[2019-11-06] MEDS ORDERED: ONDANSETRON INJ 2 MG/ML 2 ML VIAL IV STA ×2 (17:42→19:01)
[2019-11-06] MEDS ORDERED: ASPIRIN CHEW 324 MG PO STA (17:42)
[2019-11-06 17:58] LABS: Basophils # (auto) 0.03 K/uL (0-0.2); Basophils % (auto) 0.4 %; Eosinophils # (auto) 0.11 K/uL (0-0.5); Eosinophils % (auto) 1.4 %; Hematocrit (blood only) 38.2 % (37-47); Hemoglobin 12.2 g/dL (12.0-16.0); Immature Granulocytes # (auto) 0.02 K/uL (0.00-0.02); Immature Granulocytes % (auto) 0.3 %; Lymphocytes # (auto) 2.07 K/uL (1.2-3.4); Lymphocytes % (auto) 26.5 %; Mean Corpuscular Hemoglobin 26.9 pg (25-34); Mean Corpuscular Hgb Conc 31.9 g/dL (32-36); Mean Corpuscular Volume 84.3 fL (80-100); Mean Platelet Volume 9.4 fL (7.4-10.4); Monocytes # (auto) 0.65 K/uL (0.11-0.59); Monocytes % (auto) 8.3 %; Neutrophils # (auto) 4.92 K/uL (1.4-6.5); Neutrophils % (auto) 63.1 %; Platelet Count 284 K/uL (130-400); RDW Standard Deviation 46.1 fL (36.4-46.3); Red Blood Count 4.53 M/uL (4.2-5.4)
--- NOTE | 2019-11-06 18:06 | Emergency Department Note ---
Entered by Gayle Rushing acting as a scribe for History of Present Illness General Chief complaint: Chest Pain Stated complaint: CHEST PAIN Time Seen by Provider: 11/06/19 17:36 Source: patient Limitations: no limitations History of Present Illness Onset (ago): week(s) 3 Location: chest Pain Consistency: + constant Maximum Pain Intensity: 7 Current Pain Intensity: 7 Quality: + other (pressure) Exacerbated By: + other (exertion) Associated symptoms: + other (nausea, SOB with exertion) The patient is a 54 year old female who presents to the Emergency Room with complaints of constant chest pain that began 3 weeks ago. She reports that the pain has been worsening throughout the day today. The patient states that the pain radiates to her upper extremities and back. She reports that exertion exacerbates the pain. The patient rates the pain as a 7/10 in severity, and she describes is as a "pressure" when the pain is severe. She notes the pain is in the center of her chest. The patient complains of SOB with exertion and nausea. She denies any diaphoresis. The patient notes that she saw her PCP for the pain, and she had an EKG done. She reports that the PCP scheduled a stress test, but it was moved back until 11/13/19. The patient denies any history of a myocardial infarction. Home Medications Home Medications Medication Instructions Recorded Confirmed Type albuterol sulfate [Ventolin HFA] 2 puff INHALATION QID PRN 07/17/18 11/06/19 History ergocalciferol (vitamin D2) 50,000 units PO 2XWK 07/17/18 11/06/19 History [Vitamin D2] levothyroxine [Synthroid] 25 mcg PO QAM 07/17/18 11/06/19 History magnesium oxide 400 mg PO DAILY 07/17/18 11/06/19 History pantoprazole [Protonix] 40 mg PO BID 07/17/18 11/06/19 History promethazine 25 mg PO Q8H PRN 07/17/18 11/06/19 History sumatriptan succinate [Imitrex] 50 mg PO DIRECTED PRN 07/17/18 11/06/19 History duloxetine 30 mg PO DAILY 11/17/18 11/06/19 History lorazepam [Ativan] 0.5 mg PO DAILY PRN 11/17/18 11/06/19 History cyanocobalamin (vitamin B-12) 1,000 mcg IM .Q4 WEEKS 02/25/19 11/06/19 History ondansetron 8 mg PO Q8H PRN 02/25/19 11/06/19 History divalproex [Depakote ER] 750 mg PO HS 11/06/19 11/06/19 History propranolol 60 mg PO DAILY 11/06/19 11/06/19 History secukinumab [Cosentyx] 150 mg SUBCUT WK 11/06/19 11/06/19 History trazodone 300 mg PO HS 11/06/19 11/06/19 History Allergies Allergy/AdvReac Type Severity Reaction Status Date / Time oxycodone Allergy Intermediate HIVES Verified 11/06/19 18:49 piperacillin Allergy Intermediate Pruritus Verified 11/06/19 18:49 tazobactam Allergy Intermediate Pruritus Verified 11/06/19 18:49 ketorolac Allergy Mild Itching Verified 11/06/19 18:49 vancomycin AdvReac Unknown deathly ill Verified 11/06/19 18:49 Past Med/Surg History Medical History Clostridium difficile colitis (Resolved) Depression (Chronic) Edema (Chronic) GERD (gastroesophageal reflux disease) (Chronic) History of DVT (deep vein thrombosis) (Resolved) History of pulmonary embolism (Resolved) "completed 6 months Coumadin therapy" On 06/27/16 17:03 Nuha Zarate wrote On 03/23/16 16:22 Dottie Montilla wrote "2000 per patient; s/p knee replacement" MINI (iron deficiency anemia) (Chronic) Psoriatic arthritis (Chronic) Sleep apnea (Chronic) Vertigo (Chronic) Surgical History H/O wisdom tooth extraction (Resolved) History of appendectomy (Resolved) History of carpal tunnel surgery (Resolved) History of cholecystectomy (Resolved) S/P hysterectomy (Resolved) Status post appendectomy (Resolved) Status post cholecystectomy (Resolved) Status post gastric bypass for obesity (Resolved) Status post total knee replacement (Resolved) Family History (Updated 11/06/19 @ 21:00 by Viv Blankenship PA-C) Mother Rheumatoid arthritis Father Cancer blood cancer Denies family history of Hypertension Social History Preferred Language: [place] Communication Ability: Effective Adoption Agent Required: No Beliefs That Will Affect Care: None Current Living Situation: Family Other Information That Helps Us Care for You: No Feels Safe at Home: Yes Safety Concerns: Feels Safe At This Time Smoking Status: Never smoker Do You Dip or Chew Tobacco: No ; Hx Alcohol Use: No Hx Substance Use: No Review of Systems See HPI for pertinent positives & negatives. and A total of 10 systems reviewed and were otherwise negative Physical Exam Vital Signs Vital Signs - 24 hr 11/06/19 17:35 11/06/19 18:30 11/06/19 18:31 Temperature 36.4 C L Temperature Source Oral Pulse Rate 76 89 Pulse Rate from SpO2 Sensor 89 Respiratory Rate 18 26 H Respiratory Effort / Characteristics Non-Labored Spontaneous Respiratory Depth Normal Respiratory Pattern Regular Blood Pressure 135/71 122/74 Blood Pressure Mean 92 80 Blood Pressure Position Sitting Pulse Oximetry 94 92 92 Oxygen Delivery Method Room Air Nasal Cannula Oxygen Flow Rate 2 Sepsis Recent Fever Within 48 Hours No Sepsis New/Unexplained Change in Mental Status No Sepsis Action Taken by Nursing No Action Required 11/06/19 19:00 11/06/19 19:30 11/06/19 20:00 Temperature Temperature Source Pulse Rate 86 84 81 Pulse Rate from SpO2 Sensor 87 84 80 Respiratory Rate 20 20 20 Respiratory Effort / Characteristics Respiratory Depth Respiratory Pattern Blood Pressure 114/74 120/72 125/108 H Blood Pressure Mean 92 85 113 Blood Pressure Position Pulse Oximetry 95 92 90 Oxygen Delivery Method Oxygen Flow Rate 1.5 Sepsis Recent Fever Within 48 Hours Sepsis New/Unexplained Change in Mental Status Sepsis Action Taken by Nursing 11/06/19 20:31 11/06/19 20:36 11/06/19 20:39 Temperature Temperature Source Pulse Rate 81 81 74 Pulse Rate from SpO2 Sensor Respiratory Rate 20 20 22 Respiratory Effort / Characteristics Respiratory Depth Respiratory Pattern Blood Pressure 93/67 L 87/54 L 91/51 L Blood Pressure Mean 75 72 63 Blood Pressure Position Pulse Oximetry Oxygen Delivery Method Oxygen Flow Rate 3 Sepsis Recent Fever Within 48 Hours Sepsis New/Unexplained Change in Mental Status Sepsis Action Taken by Nursing 11/06/19 20:41 11/06/19 20:42 11/06/19 21:01 Temperature Temperature Source Pulse Rate 73 76 80 Pulse Rate from SpO2 Sensor 71 76 77 Respiratory Rate 22 20 19 Respiratory Effort / Characteristics Respiratory Depth Respiratory Pattern Blood Pressure 95/53 L 85/51 L 94/68 L Blood Pressure Mean 64 56 75 Blood Pressure Position Pulse Oximetry 91 91 92 Oxygen Delivery Method Oxygen Flow Rate 2 2 2 Sepsis Recent Fever Within 48 Hours Sepsis New/Unexplained Change in Mental Status Sepsis Action Taken by Nursing GENERAL: Patient is in no acute distress. HEENT: No acute trauma, normocephalic atraumatic, mucous membranes moist, no nasal congestion, no scleral icterus. NECK: No stridor, no adenopathy, no meningismus, trachea is midline. LUNGS: Clear to auscultation bilaterally, no wheeze, no rhonchi, breath sounds equal. HEART: Without murmurs gallops or rubs, regular rate and rhythm. CHEST: Nontender chest wall. ABDOMEN: Soft, nontender, bowel sounds positive, no hernias, no peritonitis. EXTREMITIES: No cyanosis or edema, full range of motion of all the joints without pain or difficulty, no signs for acute trauma. NEUROLOGIC: Oriented x 3, no acute motor or sensory deficits, no focal weakness. SKIN: No rash, no jaundice, no diaphoresis. Course Course 1737: The patient was evaluated in room A09. A complete history and physical exam was performed. 1826: I reevaluated the patient, and she complained still having pain and maybe more pain in the right arm. I spoke with her about getting a CT of the chest, and she was in agreement with the plan. She informed me she had a prior PE. 1929: I spoke with Dr. Muniz, [facility] cardiology, about the patients case. He stated that there was no need for emergent cardiac intervention. He recommended hospitalization and further cardiac workup. 1942: I spoke with Dr. Hartley, [facility] hospitalist, about the patients case. He will further evaluate the patient. Administered Medications Discontinued Medications Aspirin (Aspirin) 324 mg PO NOW STA Stop: 11/06/19 17:43 Last Admin: 11/06/19 17:56 Dose: 324 mg Documented by: [id number] Diphenhydramine HCl (Benadryl) 12.5 mg IV NOW STA Stop: 11/06/19 18:35 Last Admin: 11/06/19 18:39 Dose: 12.5 mg Documented by: [id number] Hydromorphone HCl (Dilaudid) 0.5 mg IV NOW STA Stop: 11/06/19 19:54 Last Admin: 11/06/19 19:58 Dose: 0.5 mg Documented by: [id number] Sodium Chloride (Nss) 500 mls @ 500 mls/hr IV .Q1H ONE Stop: 11/06/19 22:01 Last Admin: 11/06/19 21:24 Dose: 500 mls/hr Documented by: [id number] Ioversol (Optiray 320 125ml) 119 ml IV ONCE PRN PRN Reason: Interaction Checking Stop: 11/10/19 18:49 Last Admin: 11/06/19 18:50 Dose: 119 ml Documented by: [id number] Morphine Sulfate (Morphine Sulfate) 4 mg IV NOW STA Stop: 11/06/19 18:34 Last Admin: 11/06/19 18:40 Dose: 4 mg Documented by: [id number] Nitroglycerin (Nitro-Bid 2%) 1 inch EXT NOW STA Stop: 11/06/19 17:43 Last Admin: 11/06/19 17:56 Dose: 1 inch Documented by: [id number] Ondansetron HCl (Zofran) 4 mg IV NOW STA Stop: 11/06/19 17:43 Last Admin: 11/06/19 17:56 Dose: 4 mg Documented by: [id number] Ondansetron HCl (Zofran) 4 mg IV NOW STA Stop: 11/06/19 19:02 Last Admin: 11/06/19 19:10 Dose: 4 mg Documented by: [id number] Medical Decision Making Differential Diagnosis The differential diagnosis includes: cardiac ischemia, TX, angina, pneumothorax, PE, aortic dissection, pancreatitis, and musculoskeletal pain Medical Records Attestation: I reviewed the patient's medical records. Home Medications Current Medication List: was personally reviewed by me Laboratory Data Attestation: I reviewed the patient's lab results. Result diagrams: 11/06/19 17:50 11/06/19 17:50 Lab Results 11/06/19 11/06/19 11/06/19 Range/Units 17:50 17:50 17:50 WBC 7.80 (4.8-10.8) K/uL RBC 4.53 (4.2-5.4) M/uL Hgb 12.2 (12.0-16.0) g/dL Hct 38.2 (37-47) % MCV 84.3 (80-100) fL MCH 26.9 (25-34) pg MCHC 31.9 L (32-36) g/dL RDW Std Deviation 46.1 (36.4-46.3) fL RDW Coeff of Halley 15.0 H (11.5-14.5) % Plt Count 284 (130-400) K/uL MPV 9.4 (7.4-10.4) fL Immature Gran % (Auto) 0.3 % Neut % (Auto) 63.1 % Lymph % (Auto) 26.5 % [place] % (Auto) 8.3 % Eos % (Auto) 1.4 % Baso % (Auto) 0.4 % Immature Gran # (Auto) 0.02 (0.00-0.02) K/uL Neut # (Auto) 4.92 (1.4-6.5) K/uL Lymph # (Auto) 2.07 (1.2-3.4) K/uL [place] # (Auto) 0.65 H (0.11-0.59) K/uL Eos # (Auto) 0.11 (0-0.5) K/uL Baso # (Auto) 0.03 (0-0.2) K/uL PT 10.7 (9.0-12.0) Seconds INR 1.0 (0.9-1.1) APTT 25.9 (21.0-31.0) Seconds PTT Ratio 1.0 Sodium 137 (136-145) mmol/L Potassium 4.3 (3.5-5.1) mmol/L Chloride 104 (98-107) mmol/L Carbon Dioxide 28 (21-32) mmol/L Anion Gap 5.0 (3-11) BUN 18 (7-18) mg/dl Creatinine 1.01 (0.6-1.2) mg/dl Est Cr Clr Drug Dosing 73.2 ml/min Est GFR ( Amer) 72.1 Est GFR (Non-Af Amer) 62.2 BUN/Creatinine Ratio 18.1 (10-20) Glucose 95 (70-99) mg/dl Calcium 8.8 (8.5-10.1) mg/dl Magnesium 2.2 (1.8-2.4) mg/dl Total Bilirubin 0.3 (0.2-1) mg/dl AST 13 L (15-37) U/L ALT 22 (12-78) U/L Alkaline Phosphatase 134 H (45-117) U/L Troponin I < 0.015 (0-0.045) ng/ml NT-Pro-B Natriuret Pep (0-900) pg/ml Total Protein 6.9 (6.4-8.2) gm/dl Albumin 3.6 (3.4-5.0) gm/dl Globulin 3.3 (2.5-4.0) gm/dl Albumin/Globulin Ratio 1.1 (0.9-2) Lipase 53 L (73-393) U/L TSH (0.300-4.500) uIu/ml Valproic Acid (50-100) mcg/ml Lyme Disease IgG Ab (Negative) Lyme Disease IgM Ab (Negative) 11/06/19 11/06/19 11/06/19 Range/Units 17:50 17:50 20:25 WBC (4.8-10.8) K/uL RBC (4.2-5.4) M/uL Hgb (12.0-16.0) g/dL Hct (37-47) % MCV (80-100) fL MCH (25-34) pg MCHC (32-36) g/dL RDW Std Deviation (36.4-46.3) fL RDW Coeff of Halley (11.5-14.5) % Plt Count (130-400) K/uL MPV (7.4-10.4) fL Immature Gran % (Auto) % Neut % (Auto) % Lymph % (Auto) % [place] % (Auto) % Eos % (Auto) % Baso % (Auto) % Immature Gran # (Auto) (0.00-0.02) K/uL Neut # (Auto) (1.4-6.5) K/uL Lymph # (Auto) (1.2-3.4) K/uL [place] # (Auto) (0.11-0.59) K/uL Eos # (Auto) (0-0.5) K/uL Baso # (Auto) (0-0.2) K/uL PT (9.0-12.0) Seconds INR (0.9-1.1) APTT (21.0-31.0) Seconds PTT Ratio Sodium (136-145) mmol/L Potassium (3.5-5.1) mmol/L Chloride (98-107) mmol/L Carbon Dioxide (21-32) mmol/L Anion Gap (3-11) BUN (7-18) mg/dl Creatinine (0.6-1.2) mg/dl Est Cr Clr Drug Dosing ml/min Est GFR ( Amer) Est GFR (Non-Af Amer) BUN/Creatinine Ratio (10-20) Glucose (70-99) mg/dl Calcium (8.5-10.1) mg/dl Magnesium (1.8-2.4) mg/dl Total Bilirubin (0.2-1) mg/dl AST (15-37) U/L ALT (12-78) U/L Alkaline Phosphatase (45-117) U/L Troponin I < 0.015 (0-0.045) ng/ml NT-Pro-B Natriuret Pep 21 (0-900) pg/ml Total Protein (6.4-8.2) gm/dl Albumin (3.4-5.0) gm/dl Globulin (2.5-4.0) gm/dl Albumin/Globulin Ratio (0.9-2) Lipase (73-393) U/L TSH 1.600 (0.300-4.500) uIu/ml Valproic Acid (50-100) mcg/ml Lyme Disease IgG Ab Negative (Negative) Lyme Disease IgM Ab Negative (Negative) 11/06/19 Range/Units 20:25 WBC (4.8-10.8) K/uL RBC (4.2-5.4) M/uL Hgb (12.0-16.0) g/dL Hct (37-47) % MCV (80-100) fL MCH (25-34) pg MCHC (32-36) g/dL RDW Std Deviation (36.4-46.3) fL RDW Coeff of Halley (11.5-14.5) % Plt Count (130-400) K/uL MPV (7.4-10.4) fL Immature Gran % (Auto) % Neut % (Auto) % Lymph % (Auto) % [place] % (Auto) % Eos % (Auto) % Baso % (Auto) % Immature Gran # (Auto) (0.00-0.02) K/uL Neut # (Auto) (1.4-6.5) K/uL Lymph # (Auto) (1.2-3.4) K/uL [place] # (Auto) (0.11-0.59) K/uL Eos # (Auto) (0-0.5) K/uL Baso # (Auto) (0-0.2) K/uL PT (9.0-12.0) Seconds INR (0.9-1.1) APTT (21.0-31.0) Seconds PTT Ratio Sodium (136-145) mmol/L Potassium (3.5-5.1) mmol/L Chloride (98-107) mmol/L Carbon Dioxide (21-32) mmol/L Anion Gap (3-11) BUN (7-18) mg/dl Creatinine (0.6-1.2) mg/dl Est Cr Clr Drug Dosing ml/min Est GFR ( Amer) Est GFR (Non-Af Amer) BUN/Creatinine Ratio (10-20) Glucose (70-99) mg/dl Calcium (8.5-10.1) mg/dl Magnesium (1.8-2.4) mg/dl Total Bilirubin (0.2-1) mg/dl AST (15-37) U/L ALT (12-78) U/L Alkaline Phosphatase (45-117) U/L Troponin I (0-0.045) ng/ml NT-Pro-B Natriuret Pep (0-900) pg/ml Total Protein (6.4-8.2) gm/dl Albumin (3.4-5.0) gm/dl Globulin (2.5-4.0) gm/dl Albumin/Globulin Ratio (0.9-2) Lipase (73-393) U/L TSH (0.300-4.500) uIu/ml Valproic Acid 63 (50-100) mcg/ml Lyme Disease IgG Ab (Negative) Lyme Disease IgM Ab (Negative) Imaging Data Radiologist's Impression: Radiology results as stated below per my review and the radiologist's interpretation: XR chest 1V portable HISTORY: 54 years-old Female Chest Pain acute atypical chest pain COMPARISON: Chest radiograph 11/17/2018 TECHNIQUE: Portable AP view of the chest FINDINGS: Cardiac silhouette is moderately enlarged. There is suggestion of mild pulmonary vascular congestion. No pneumothorax, pleural effusion, overt pulmonary edema or airspace consolidation typical for pneumonia. Degenerative changes of the shoulders and spine. IMPRESSION: Cardiomegaly with suggestion of mild pulmonary vascular congestion. ACT 112: Negative or not required by law. The above report was generated using voice recognition software. It may contain grammatical, syntax or spelling errors. Electronically signed by: Fransisco Owens M.D. 11/06/2019 6:[address] angio chest PE protocol CT DOSE: 447.16 mGycm HISTORY: Chest pain. Dyspnea. PE TECHNIQUE: Multiaxial CT images of the chest were performed following the intravenous administration of contrast to evaluate the pulmonary arteries. Maximal intensity projection images were also obtained. A dose lowering technique was utilized adhering to the principles of ALARA. COMPARISON STUDY: 07/07/2018 FINDINGS: Pulmonary vasculature enhances appropriately. There are no fixed filling defects. There are interstitial changes throughout both hemithoraces. There are no well- defined consolidative infiltrates. Patient is status post gastroplasty procedure. IMPRESSION: 1. No evidence for pulmonary embolus. 2. Interstitial prominence throughout throughout both hemithoraces possibly on the basis of a low-grade pneumonitis. ACT 112: Negative or not required by law. The above report was generated using voice recognition software. It may contain grammatical, syntax or spelling errors. Electronically signed by: Collins Armando M.D. 11/06/2019 7:02 PM ECG Data Attestation: I personally reviewed and interpreted this ECG as follows: Indication: + chest pain Rate (beats per minute): 79 Rhythm: + normal sinus ECG ST segments: no ST elevation ECG Findings: + Other (old inferior and old anterior infarct, QTC is 401) Comparison ECG Date: from (11/17/18) Change: no significant change Additional Comments: Repeat EKG: Normal sinus rhythm, rate of 85. LVH present. 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 No ST elevation. QTc is 406, no change from previous. Repeat EKG 2: Normal sinus rhythm, rate of 84. LVH present. 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 QTc is 437, no ST elevation. Similar to previous. Blood Pressure Blood Pressure Findings: Elevated blood pressure Blood Pressure Disposition: further management by hospitalist YAMILETH Narrative There is no leukocytosis or concerning anemia. The patient has a normal platelet count. No coagulopathy. No significant electrolyte abnormality or kidney failure. There were a few very subtle liver enzyme elevations. The bilirubin was normal. No evidence for pancreatitis. EKG shows a sinus rhythm with old changes, no acute ST elevation. A total of 3 EKGs were done showing no acute injury. Cardiac enzyme testing x1 is not consistent with acute cardiac injury. Chest film showed some possible parenchymal congestion, no pneumonia or pneumothorax. Chest CT does not show any PE or evidence for aortic dissection. The patient received oral aspirin, nitroglycerin paste. She was given IV Zofran. A second dose of IV Zofran was given. She finally received IV morphine for pain, IV Benadryl to prevent itching. The patient presents with chest pain which certainly sounds cardiac in origin. Her work-up is reassuring though here in the ED. I did consult cardiology on- call, hospitalization and further cardiac work-up was felt warranted. No emergent cardiac intervention was necessary. The patient is aware of her findings, she is finally feeling somewhat improved. I did speak to case management, the on-call hospitalist has been consulted. Cardiac monitoring: An order was placed for continuous cardiac monitoring. The monitor shows a rate of 89 with normal sinus rhythm. Impression & Plan Chest pain, precordial, SOB (shortness of breath), Nausea Discharge Plan Visit Data *Final* Discharge Date/Time: 11/06/19 22:13 Chief Complaint: Chest Pain Stated Complaint: CHEST PAIN ED Provider: Zander Naranjo Discharge Problem: Chest pain, precordial, SOB (shortness of breath), Nausea Patient Disposition: Admitted As Inpatient Discharge Instructions Interventions: ED Discharge Assessment Last Done: 11/06/19 22:13 The darwin's documentation has been prepared under my direction and personally reviewed by me in its entirety. I confirm that the note above accurately reflects all work, treatment, procedures, and medical decision making performed by me.
[2019-11-06 18:15] LABS: Alanine Aminotransferase 22 U/L (12-78); Albumin Level 3.6 gm/dl (3.4-5.0); Aspartate Aminotransferase 13 U/L (15-37); BUN Creatinine Ratio 18.1 (10-20); Blood Urea Nitrogen 18 mg/dl (7-18); Calcium 8.8 mg/dl (8.5-10.1); Carbon Dioxide 28 mmol/L (21-32); Chloride 104 mmol/L (98-107); Creatinine Clr Calc Pharmacy 73.2 ml/min; Est GFR (African American) 72.1; Est GFR (Non-African American) 62.2; Glucose 95 mg/dl (70-99); Lipase 53 U/L (73-393); Magnesium 2.2 mg/dl (1.8-2.4); Potassium 4.3 mmol/L (3.5-5.1); Sodium 137 mmol/L (136-145)
[2019-11-06 18:18] LABS: Partial Thromboplastin Time 25.9 Seconds (21.0-31.0); Prothrombin Time 10.7 Seconds (9.0-12.0)
[2019-11-06 18:21] LABS: Albumin Globulin Ratio 1.1 (0.9-2); Alkaline Phosphatase 134 U/L (45-117); Bilirubin,Total 0.3 mg/dl (0.2-1); Globulin 3.3 gm/dl (2.5-4.0); Total Protein 6.9 gm/dl (6.4-8.2); Troponin I < 0.015 ng/ml (0-0.045)
--- NOTE | 2019-11-06 18:30 | XRay Report ---
XR chest 1V portable HISTORY: 54 years-old Female Chest Pain acute atypical chest pain COMPARISON: Chest radiograph 11/17/2018 TECHNIQUE: Portable AP view of the chest FINDINGS: Cardiac silhouette is moderately enlarged. There is suggestion of mild pulmonary vascular congestion. No pneumothorax, pleural effusion, overt pulmonary edema or airspace consolidation typical for pneum onia. Degenerative changes of the shoulders and spine. IMPRESSION: Cardiomegaly with suggestion of mild pulmonary vascular congestion. ACT 112: Negative or not required by law. The above report was generated using voice recognition software. It may contain grammatical, syntax o r spelling errors. Electronically signed by: Fransisco Owens M.D. 11/06/2019 6:29 PM
[2019-11-06] MEDS ORDERED: MoRPHine SULFATE 4 MG/ML 1 ML CARP\\VIAL IV STA (18:33)
[2019-11-06] MEDS ORDERED: DiphenhydrAMINE HCL 50 MG/ML VIAL IV STA (18:34)
[2019-11-06] MEDS ORDERED: OPTIRAY 320 125ml IV PRN (18:50)
--- NOTE | 2019-11-06 19:04 | CT Scan Report ---
CT angio chest PE protocol CT DOSE: 447.16 mGycm HISTORY: Chest pain. Dyspnea. PE TECHNIQUE: Multiaxial CT images of the chest were performed following the intravenous administration of contrast to evaluate the pulmonary arteries. Maximal intensity projection images were also obtaine d. A dose lowering technique was utilized adhering to the principles of ALARA. COMPARISON STUDY: 07/07/2018 FINDINGS: Pulmonary vasculature enhances appropriately. There are no fixed filling defects. There are interstitial changes throughout both hemithoraces. There are no well-defined consolidative infiltrates. Patient is status post gastroplasty procedure. IMPRESSION: 1. No evidence for pulmonary embolus. 2. Interstitial prominence throughout throughout both hemithoraces possibly on the basis of a low-gra de pneumonitis. ACT 112: Negative or not required by law. The above report was generated using voice recognition software. It may contain grammatical, syntax or spelling errors. Electronically signed by: Collins Armando M.D. 11/06/2019 7:02 PM
[2019-11-06] MEDS ORDERED: HYDROmorphone INJ 0.5 MG/0.5 ML SYR IV STA (19:53)
[2019-11-06 20:59] LABS: NT Pro B Type Natriuretic Pept 21 pg/ml (0-900); Troponin I < 0.015 ng/ml (0-0.045)
[2019-11-06] MEDS ORDERED: SODIUM CHLORIDE 0.9% 500 ML IV ONE (21:02)
--- NOTE | 2019-11-06 21:03 | History & Physical Report ---
Date of Service November 06, 2019 Assessment & Plan (1) Chest pain, precordial: (2) SOB (shortness of breath): This is a 54-year-old female who has significant PMH of psoriatic arthritis, history of gastric bypass, hypothyroidism, pre-DM, migraine, depression, Szymanski, history of unprovoked PE who presents to ED secondary to substernal chest pain x3 weeks. In ED patient underwent extensive chest pain work-up. Serial troponins negative x3 without ischemic EKG changes. She underwent CTA of chest which was negative for PE or dissection, mild Interstitial prominence throughout both hemithoraces possibly low-grade pneumonitis. Chest x-ray revealed cardiomegaly with suggestion of mild pulmonary vascular congestion. CBC and CMP relatively unremarkable. PRO BNP depakote level WNL. Pt was seen and examined in collaboration with Dr. Hartley, please see addendum regarding assessment and plan. (3) Psoriatic arthritis: Follows [facility] rheumatology Recently started Cosentyx, on dose 12/13 (4) Pre-diabetes: A1c 10/23 6.3 Encourage lifestyle modification (5) Depression: Continue trazodone at bedtime (6) Migraine: Continue Depakote Depakote level WNL (7) Hypothyroidism: Continue Synthroid Last TSH 05/2019 2.69 (8) History of pulmonary embolism: hx of unprovoked PE, received 6 mon anticoagulation dvt ppx per attending Disposition: admit to tele Follow up: PCP Dr. Sutton upon discharge History of Present Illness Chief Complaint: Chest Pain x 3 weeks. Primary Care Provider: Richi Sutton, This is a 54-year-old female who has significant PMH of psoriatic arthritis, history of gastric bypass, hypothyroidism, pre-DM, migraine, depression, Szymanski, history of unprovoked PE who presents to ED secondary to substernal chest pain x3 weeks. Patient has been experiencing substernal chest pain for the past 3 weeks. It has been off and on, waxing and waning. She describes it as heaviness in her chest with radiation to bilateral shoulders and heaviness in her neck. It can occur at rest as well as with exertion. She further elicits shortness of breath with exertion and now at rest, including a flight of stairs. Made worse with deep breathing and leaning forward, nothing improves symptoms. She prompted to seek ED evaluation today whenever she woke up with significant severe substernal chest pain 04/19. Chest pain was constant throughout the day becoming worse. She further elicits increased shortness of breath. She did develop URI symptoms yesterday including rhinorrhea and mild dry cough. She denies any fever but expresses chills. She denies any lightheadedness, dizziness, syncope, palpitations, hemoptysis, nausea, vomiting, abdominal pain, diarrhea, change in bowel or urinary habits. Her baseline weight is approximately 212 and she is up to 225 over the past 4 weeks. In the past 1 week she has lost 4 pounds secondary to dietary changes. She denies any significant lower extremity edema. She does complain of waking up in the middle of the night feeling short of breath but she does sleep on her belly. She expressed symptoms to PCP approximately 3 weeks ago and she was scheduled for a nuclear stress test which was supposed to be tomorrow but got put back till November 12. She does elicit approximately 3 years ago she was diagnosed with PE. She was placed on anticoagulation for 6 months. She was worked up for cause of PE but per patient found to be unprovoked. Most recent medication changes include the addition of Cosentyx in which she is on a weekly injection currently on dose 4 out of 5. In ED patient underwent extensive chest pain work-up. Serial troponins negative x2 without ischemic EKG changes. She underwent CTA of chest which was negative for PE or dissection, mild Interstitial prominence throughout both hemithoraces possibly low-grade pneumonitis. Chest x-ray revealed cardiomegaly with suggestion of mild pulmonary vascular congestion. CBC and CMP relatively unremarkable. Allergies Allergy/AdvReac Type Severity Reaction Status Date / Time oxycodone Allergy Intermediate HIVES Verified 11/06/19 18:49 piperacillin Allergy Intermediate Pruritus Verified 11/06/19 18:49 tazobactam Allergy Intermediate Pruritus Verified 11/06/19 18:49 ketorolac Allergy Mild Itching Verified 11/06/19 18:49 vancomycin AdvReac Unknown deathly ill Verified 11/06/19 18:49 Home Medications Home Medications Medication Instructions Recorded Confirmed Type albuterol sulfate [Ventolin HFA] 2 puff INHALATION QID PRN 07/17/18 11/06/19 History ergocalciferol (vitamin D2) 50,000 units PO 2XWK 07/17/18 11/06/19 History [Vitamin D2] levothyroxine [Synthroid] 25 mcg PO QAM 07/17/18 11/06/19 History magnesium oxide 400 mg PO DAILY 07/17/18 11/06/19 History pantoprazole [Protonix] 40 mg PO BID 07/17/18 11/06/19 History promethazine 25 mg PO Q8H PRN 07/17/18 11/06/19 History sumatriptan succinate [Imitrex] 50 mg PO DIRECTED PRN 07/17/18 11/06/19 History duloxetine 30 mg PO DAILY 11/17/18 11/06/19 History lorazepam [Ativan] 0.5 mg PO DAILY PRN 11/17/18 11/06/19 History cyanocobalamin (vitamin B-12) 1,000 mcg IM .Q4 WEEKS 02/25/19 11/06/19 History ondansetron 8 mg PO Q8H PRN 02/25/19 11/06/19 History divalproex [Depakote ER] 750 mg PO HS 11/06/19 11/06/19 History propranolol 60 mg PO DAILY 11/06/19 11/06/19 History secukinumab [Cosentyx] 150 mg SUBCUT WK 11/06/19 11/06/19 History trazodone 300 mg PO HS 11/06/19 11/06/19 History Past Med/Surg History Medical History Clostridium difficile colitis (Resolved) Depression (Chronic) Edema (Chronic) GERD (gastroesophageal reflux disease) (Chronic) History of DVT (deep vein thrombosis) (Resolved) History of pulmonary embolism (Resolved) "completed 6 months Coumadin therapy" On 06/27/16 17:03 Nuha Zarate wrote On 03/23/16 16:22 Dottie Montilla wrote "2000 per patient; s/p knee replacement" MINI (iron deficiency anemia) (Chronic) Psoriatic arthritis (Chronic) Sleep apnea (Chronic) Vertigo (Chronic) Surgical History H/O wisdom tooth extraction (Resolved) History of appendectomy (Resolved) History of carpal tunnel surgery (Resolved) History of cholecystectomy (Resolved) S/P hysterectomy (Resolved) Status post appendectomy (Resolved) Status post cholecystectomy (Resolved) Status post gastric bypass for obesity (Resolved) Status post total knee replacement (Resolved) Family History (Updated 11/06/19 @ 21:00 by Viv Blankenship PA-C) Mother Rheumatoid arthritis Father Cancer blood cancer Denies family history of Hypertension Social History Preferred Language: [place] Communication Ability: Effective 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 Beliefs That Will Affect Care: None Current Living Situation: Spouse Feels Safe at Home: Yes Smoking Status: Never smoker Hx Alcohol Use: No Hx Substance Use: No Review of Systems Review of Systems: All systems reviewed & are unremarkable except as noted in HPI & below Physical Exam Physical Exam: Constitutional: WD/WN, ill appearing, F, vitals as above, NAD, sitting up in bed, pleasant, conversing easily Head: Normocephalic, Atraumatic Eyes: PERRL, conjunctivae normal, anicteric sclerae ENMT: external ear and nose normal, oropharynx normal Neck: trachea midline, no thyromegaly normal visual inspection Respiratory: normal respiratory effort, lungs clear to auscultation, no wheeze, rales, rhonchi. Normal insp/exp effort, no accessory muscle use Cardiovascular: RRR, no murmur, no edema Vessels: no JVD or carotid bruit Chest: normal inspection of chest, pain not reproducible Abdomen: normal bowel sounds, soft, nontender, no hepatosplenomegaly Musculoskeletal: no cyanosis or clubbing, extremities motor strength 5/5 Skin: no rashes, warm and dry normal turgor Neurologic: PERRL, EOMI, accommodation nl, no face palsy, no dysarthria CN's II-XI intact bilaterally and moves all extremities Psychiatric: A+Ox3, euthymic affect Lymphatic: no cervical or axillary lymphadenopathy : deferred Results & Data Vital Signs (Past 12 Hours) Vital Signs Temp Pulse Resp BP Pulse Ox 11/06/19 20:36 81 20 87/54 L 11/06/19 20:31 81 20 93/67 L 11/06/19 20:00 81 20 125/108 H 90 02/27/20 19:30 84 20 120/72 92 11/06/19 19:00 86 20 114/74 95 11/06/19 18:31 92 11/06/19 18:30 89 26 H 122/74 92 11/06/19 17:35 36.4 C L 76 18 135/71 94 Laboratory Results Short CBC 11/06/19 11/06/19 11/06/19 Range/Units 17:50 17:50 20:25 WBC 7.80 (4.8-10.8) K/uL Hgb 12.2 (12.0-16.0) g/dL Hct 38.2 (37-47) % Plt Count 284 (130-400) K/uL Troponin I < 0.015 < 0.015 (0-0.045) ng/ml BMP 11/06/19 17:50 Sodium 137 Potassium 4.3 Chloride 104 Carbon Dioxide 28 BUN 18 Creatinine 1.01 Glucose 95 Calcium 8.8 Cardiac Enzymes 11/06/19 11/06/19 Range/Units 17:50 20:25 Troponin I < 0.015 < 0.015 (0-0.045) ng/ml Liver Function 11/06/19 Range/Units 17:50 Total Bilirubin 0.3 (0.2-1) mg/dl AST 13 L (15-37) U/L ALT 22 (12-78) U/L Alkaline Phosphatase 134 H (45-117) U/L Albumin 3.6 (3.4-5.0) gm/dl Diagnostic Findings Chest CTA: IMPRESSION: 1. No evidence for pulmonary embolus. 2. Interstitial prominence throughout throughout both hemithoraces possibly on the basis of a low-grade pneumonitis. CXR: IMPRESSION: Cardiomegaly with suggestion of mild pulmonary vascular congestion. Medications Administered Ioversol (Optiray 320 125ml) 119 ml IV ONCE PRN PRN Reason: Interaction Checking Stop: 11/10/19 18:49 Last Admin: 11/06/19 18:50 Dose: 119 ml Documented by: [id number] Discontinued Medications Aspirin (Aspirin) 324 mg PO NOW STA Stop: 11/06/19 17:43 Last Admin: 11/06/19 17:56 Dose: 324 mg Documented by: [id number] Diphenhydramine HCl (Benadryl) 12.5 mg IV NOW STA Stop: 11/06/19 18:35 Last Admin: 11/06/19 18:39 Dose: 12.5 mg Documented by: [id number] Hydromorphone HCl (Dilaudid) 0.5 mg IV NOW STA Stop: 11/06/19 19:54 Last Admin: 11/06/19 19:58 Dose: 0.5 mg Documented by: [id number] Morphine Sulfate (Morphine Sulfate) 4 mg IV NOW STA Stop: 11/06/19 18:34 Last Admin: 11/06/19 18:40 Dose: 4 mg Documented by: [id number] Nitroglycerin (Nitro-Bid 2%) 1 inch EXT NOW STA Stop: 11/06/19 17:43 Last Admin: 11/06/19 17:56 Dose: 1 inch Documented by: [id number] Ondansetron HCl (Zofran) 4 mg IV NOW STA Stop: 11/06/19 17:43 Last Admin: 11/06/19 17:56 Dose: 4 mg Documented by: [id number] Ondansetron HCl (Zofran) 4 mg IV NOW STA Stop: 11/06/19 19:02 Last Admin: 11/06/19 19:10 Dose: 4 mg Documented by: [id number] ECG Rate (beats per minute): 85 Findings: + RBBB (incomplete) Code Status & VTE Plan Code Status Full Code Supervising Physician Co-Signing Physician Notes IM ATTENDING : Nicky seen and examined. History reviewed. Preceding documentation by Ms. Viv Blankenship PA-C reviewed. FINAL ASSESSMENT AND PLAN as follows: 1. Atypical chest pain No relief with nitroglycerin Musculoskeletal component given reproducibility Rule out pericarditis given pleuritic component 2. Chronic migraine, stable 3. Hypertension, stable off meds 4. Prediabetes, outpatient hemoglobin A1c of 6.2 5. history of gastric bypass 6. anxiety, stable on medications 7. history of postop DVT status post anticoagulation 8. hx psoriatic arthritis, stable on regimen OBS PCU Analgesia Check ESR Follow troponin TTE RE chest pain Cardiology consult in a.m. RE chest pain (ER provider already in touch with Dr. Muniz) N.p.o. after midnight in anticipation of procedure DVT prophylaxis per Lovenox subcu Full code Text document was generated using [employer] voice recognition software. It may contain grammatical or spelling errors. Kindly contact undersigned for clarification of any documentation item in question.
[2019-11-06] MEDS ORDERED: LORATADINE 10 MG TAB PO ONE (21:21)
[2019-11-06 22:12] LABS: Lyme Ab IgG w/WB Rflx Negative (Negative); Lyme Ab IgM w/WB Rflx Negative (Negative)
[2019-11-06 22:49] LABS: Influenza A virus by PCR Neg for Influ A (Neg); Influenza B virus by PCR Neg for Influ B (Neg)
[2019-11-06] MEDS ORDERED: LORazepam 0.5 MG TAB PO PRN (22:49)
[2019-11-06] MEDS ORDERED: HYDROmorphone INJ 0.5 MG/0.5 ML SYR IV PRN (22:49)
[2019-11-07] MEDS: PANTOprazole 40 MG TAB PO SCH ×3 (01:00→21:07)
[2019-11-07] MEDS: TRAMADOL HCL 50 MG TABLET PO PRN ×4 (01:00→19:19)
[2019-11-07] MEDS: SODIUM CHLORIDE 0.9% 1000ML 1,000 ML IV SCH ×3 (01:01→21:04)
[2019-11-07] MEDS: PROMETHAZINE HCL 12.5 MG in SODIUM CHLORIDE 0.9% 50 ML IV PRN ×3 (01:09→19:19)
[2019-11-07 04:11] LABS: Basophils # (auto) 0.02 K/uL (0-0.2); Basophils % (auto) 0.4 %; Eosinophils # (auto) 0.11 K/uL (0-0.5); Hematocrit (blood only) 34.7 % (37-47); Hemoglobin 10.9 g/dL (12.0-16.0); Immature Granulocytes # (auto) 0.01 K/uL (0.00-0.02); Immature Granulocytes % (auto) 0.2 %; Lymphocytes # (auto) 2.15 K/uL (1.2-3.4); Mean Corpuscular Hemoglobin 26.8 pg (25-34); Mean Corpuscular Hgb Conc 31.4 g/dL (32-36); Mean Corpuscular Volume 85.5 fL (80-100); Mean Platelet Volume 9.6 fL (7.4-10.4); Monocytes # (auto) 0.57 K/uL (0.11-0.59); Monocytes % (auto) 10.6 %; Neutrophils # (auto) 2.52 K/uL (1.4-6.5); Neutrophils % (auto) 46.8 %; Platelet Count 245 K/uL (130-400); RDW Standard Deviation 46.7 fL (36.4-46.3); Red Blood Count 4.06 M/uL (4.2-5.4); White Blood Count 5.38 K/uL (4.8-10.8)
[2019-11-07 04:22] LABS: Partial Thromboplastin Ratio 0.9; Partial Thromboplastin Time 25.6 Seconds (21.0-31.0)
[2019-11-07 04:28] LABS: Calcium 8.1 mg/dl (8.5-10.1); Creatinine Clr Calc Pharmacy 84.7 ml/min; Est GFR (African American) 86.3; Est GFR (Non-African American) 74.5; Potassium 4.6 mmol/L (3.5-5.1)
[2019-11-07] MEDS: LEVOTHYROXINE SODIUM 25 MCG TABLET PO SCH (05:37)
--- NOTE | 2019-11-07 08:45 | Cardiology Consultation ---
Date of Consultation November 07, 2019 Assessment & Plan (1) Chest pain, precordial: Patient presents with progressive symptoms of worsening chest heaviness and chest pressure now occurring at rest and limiting in nature. Initial cardiac evaluation nonischemic though symptoms are concerning. Discussed options in detail with the patient as far as management. Patient had symptoms at rest last evening would recommend proceeding to diagnostic cardiac catheterization to exclude underlying ischemic heart disease. If no significant disease present would likely proceed with GI evaluation Patient's agreeable initial risks and procedure were discussed in detail with patient IV fluids initiated given use of contrast for CTA yesterday (2) SOB (shortness of breath): History of Present Illness Reason for Consultation: Chest pain, recurrent Requesting Physician: Dr. Mead Attending Physician: Tano Perry MD History of Present Illness Patient is a 54-year-old female without prior history of cardiac disease underlying medical issues which include 1. Hypertension 2. Prediabetes 3. History obesity status post gastric bypass surgery 4. Gastroesophageal reflux 5. Psoriatic arthritis 6. Chronic migraine 7. Hypothyroidism on replacement 8. Past pulmonary embolus with negative CTA this admission Patient presents noting approximately 3-week history of increasing exertional and rest chest discomfort. Was initially evaluated as an outpatient and tenta tively scheduled for stress testing. In interim patient's had a crescendo nature of pain and symptoms described as a hard heavy pressing substernal chest pressure pain with associated dyspnea and significant limitation in exercise capacity. Symptoms were profound enough to result in ER presentation yesterday. Pain was eased by sublingual nitroglycerin. Initial evaluation for ischemia negative including EKGs and troponins. Preliminary echocardiogram demonstrates preserved LV function Patient has mild increased interstitial markings on chest x-ray. She denies fevers or chills has had a low-grade cough in the last 1 to 2 days. Notes no melena medication dysuria hematuria. Notes no overt dysphasia notes no history of TIA or stroke. No racing heart or palpitations. Patient is a non-smoker nondrinker Family history is notable for possible heart disease on maternal relatives Allergies Allergy/AdvReac Type Severity Reaction Status Date / Time oxycodone Allergy Intermediate HIVES Verified 11/06/19 18:49 piperacillin Allergy Intermediate Pruritus Verified 11/06/19 18:49 tazobactam Allergy Intermediate Pruritus Verified 11/06/19 18:49 ketorolac Allergy Mild Itching Verified 11/06/19 18:49 vancomycin AdvReac Unknown deathly ill Verified 11/06/19 18:49 Home Medications Home Medications Medication Instructions Recorded Confirmed Type albuterol sulfate [Ventolin HFA] 2 puff INHALATION QID PRN 07/17/18 11/06/19 History ergocalciferol (vitamin D2) 50,000 units PO 2XWK 07/17/18 11/06/19 History [Vitamin D2] levothyroxine [Synthroid] 25 mcg PO QAM 07/17/18 11/06/19 History magnesium oxide 400 mg PO DAILY 07/17/18 11/06/19 History pantoprazole [Protonix] 40 mg PO BID 07/17/18 11/06/19 History promethazine 25 mg PO Q8H PRN 07/17/18 11/06/19 History sumatriptan succinate [Imitrex] 50 mg PO DIRECTED PRN 07/17/18 11/06/19 Hi story duloxetine 30 mg PO DAILY 11/17/18 11/06/19 History lorazepam [Ativan] 0.5 mg PO DAILY PRN 11/17/18 11/06/19 History cyanocobalamin (vitamin B-12) 1,000 mcg IM .Q4 WEEKS 02/25/19 11/06/19 History ondansetron 8 mg PO Q8H PRN 02/25/19 11/06/19 History divalproex [Depakote ER] 750 mg PO HS 11/06/19 11/06/19 History propranolol 60 mg PO DAILY 11/06/19 11/06/19 History secukinumab [Cosentyx] 150 mg SUBCUT WK 11/06/19 11/06/19 History trazodone 300 mg PO HS 11/06/19 11/06/19 History Patient History Medical History Clostridium difficile colitis (Resolved) Depression (Chronic) Edema (Chronic) GERD (gastroesophageal reflux disease) (Chronic) History of DVT (deep vein thrombosis) (Resolved) History of pulmonary embolism (Resolved) "completed 6 months Coumadin therapy" On 06/27/16 17:03 Nuha Zarate wrote On 03/23/16 16:22 Dottie Montilla wrote "1999 per patient; s/p knee replacement" MINI (iron deficiency anemia) (Chronic) Psoriatic arthritis (Chronic) Sleep apnea (Chronic) Vertigo (Chronic) Surgical History H/O wisdom tooth extraction (Resolved) History of appendectomy (Resolved) History of carpal tunnel surgery (Resolved) History of cholecystectomy (Resolved) S/P hysterectomy (Resolved) Status post appendectomy (Resolved) Status post cholecystectomy (Resolved) Status post gastric bypass for obesity (Resolved) Status post total knee replacement (Resolved) Family History Mother Rheumatoid arthritis Father Cancer blood cancer Denies family history of Hypertension Social History Preferred Language: Citizen Of [place] Communication Ability: Effective Senior Controls 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: No Beliefs That Will Affect Care: None Current Living Situation: Family Other Information That Helps Us Care for You: No Feels Safe at Home: Yes Safety Concerns: Feels Safe At This Time Smoking Status: Never smoker Do You Dip or Chew Tobacco: No ; Hx Alcohol Use: No Hx Substance Use: No Review of Systems Review of Systems: All systems reviewed & are unremarkable except as noted in HPI & below Physical Exam Constitutional: + obese; no acute distress Eyes: PERRL, conjunctivae normal, anicteric sclerae ENMT: external ear and nose normal, oropharynx normal Neck: trachea midline, no thyromegaly + thick neck Respiratory: Auscultation: + diminished lung sounds (Clear to auscultation) Cardiovascular: Rate/Rhythm: regular rate and regular rhythm Heart Sounds: normal S1 and normal S2; no gallop and no murmur Palpation: normal PMI Vessels: normal carotid upstroke and radial pulses present; no JVD and no carotid bruit Extremities: no edema Gastrointestinal (Abdomen): normal bowel sounds, soft, nontender, no hepatosplenomegaly Musculoskeletal: no cyanosis or clubbing, extremities motor strength 5/5 Head/Neck/Chest: normal palpation of chest wall Skin: no rashes, warm and dry Neurologic: PERRL, EOMI, accommodation nl, no face palsy, no dysarthria Psychiatric: A+Ox3, euthymic affect Results & Data (MN) Vital Signs (Past 12 Hours) Vital Signs Temp Pulse Pulse Resp BP BP Pulse Ox 11/07/19 08:18 36.8 C 79 22 116/82 97 11/07/19 03:34 36.7 C 74 18 95/59 L 94 11/07/19 00:19 36.4 C L 94 H 18 121/62 93 11/06/19 22:36 36.4 C L 70 20 86/58 L 93 11/06/19 22:01 76 16 105/64 95 11/06/19 21:01 80 19 94/68 L 92 Laboratory Results Laboratory Results - last 24 hr 11/06/19 11/06/19 11/06/19 17:50 17:50 17:50 WBC 7.80 RBC 4.53 Hgb 12.2 Hct 38.2 MCV 84.3 MCH 26.9 MCHC 31.9 L RDW Std Deviation 46.1 RDW Coeff of Halley 15.0 H Plt Count 284 MPV 9.4 Immature Gran % (Auto) 0.3 Neut % (Auto) 63.1 Lymph % (Auto) 26.5 Gem % (Auto) 8.3 Eos % (Auto) 1.4 Baso % (Auto) 0.4 Immature Gran # (Auto) 0.02 Neut # (Auto) 4.92 Lymph # (Auto) 2.07 Gem # (Auto) 0.65 H Eos # (Auto) 0.11 Baso # (Auto) 0.03 ESR PT 10.7 INR 1.0 APTT 25.9 PTT Ratio 1.0 Sodium 137 Potassium 4.3 Chloride 104 Carbon Dioxide 28 Anion Gap 5.0 BUN 18 Creatinine 1.01 Est Cr Clr Drug Dosing 73.2 Est GFR ( Amer) 72.1 Est GFR (Non-Af Amer) 62.2 BUN/Creatinine Ratio 18.1 Glucose 95 Calcium 8.8 Magnesium 2.2 Total Bilirubin 0.3 AST 13 L ALT 22 Alkaline Phosphatase 134 H Troponin I < 0.015 NT-Pro-B Natriuret Pep Total Protein 6.9 Albumin 3.6 Globulin 3.3 Albumin/Globulin Ratio 1.1 Lipase 53 L TSH Valproic Acid Lyme Disease IgG Ab Lyme Disease IgM Ab Influenza Type A (PCR) Influenza Type B (PCR) 11/06/19 11/06/19 11/06/19 17:50 17:50 20:25 WBC RBC Hgb Hct MCV MCH MCHC RDW Std Deviation RDW Coeff of Halley Plt Count MPV Immature Gran % (Auto) Neut % (Auto) Lymph % (Auto) Gem % (Auto) Eos % (Auto) Baso % (Auto) Immature Gran # (Auto) Neut # (Auto) Lymph # (Auto) Gem # (Auto) Eos # (Auto) Baso # (Auto) ESR PT INR APTT PTT Ratio Sodium Potassium Chloride Carbon Dioxide Anion Gap BUN Creatinine Est Cr Clr Drug Dosing Est GFR ( Amer) Est GFR (Non-Af Amer) BUN/Creatinine Ratio Glucose Calcium Magnesium Total Bilirubin AST ALT Alkaline Phosphatase Troponin I < 0.015 NT-Pro-B Natriuret Pep 21 Total Protein Albumin Globulin Albumin/Globulin Ratio Lipase TSH 1.600 Valproic Acid Lyme Disease IgG Ab Negative Lyme Disease IgM Ab Negative Influenza Type A (PCR) Influenza Type B (PCR) 11/06/19 11/06/19 11/07/19 20:25 22:12 03:51 WBC 5.38 RBC 4.06 L Hgb 10.9 L Hct 34.7 L MCV 85.5 MCH 26.8 MCHC 31.4 L RDW Std Deviation 46.7 H RDW Coeff of Halley 15.0 H Plt Count 245 MPV 9.6 Immature Gran % (Auto) 0.2 Neut % (Auto) 46.8 Lymph % (Auto) 40.0 Gem % (Auto) 10.6 Eos % (Auto) 2.0 Baso % (Auto) 0.4 Immature Gran # (Auto) 0.01 Neut # (Auto) 2.52 Lymph # (Auto) 2.15 Gem # (Auto) 0.57 Eos # (Auto) 0.11 Baso # (Auto) 0.02 ESR PT INR APTT PTT Ratio Sodium Potassium Chloride Carbon Dioxide Anion Gap BUN Creatinine Est Cr Clr Drug Dosing Est GFR ( Amer) Est GFR (Non-Af Amer) BUN/Creatinine Ratio Glucose Calcium Magnesium Total Bilirubin AST ALT Alkaline Phosphatase Troponin I NT-Pro-B Natriuret Pep Total Protein Albumin Globulin Albumin/Globulin Ratio Lipase TSH Valproic Acid 63 Lyme Disease IgG Ab Lyme Disease IgM Ab Influenza Type A (PCR) Neg for Influ A Influenza Type B (PCR) Neg for Influ B 11/07/19 11/07/19 11/07/19 03:51 03:51 03:51 WBC RBC Hgb Hct MCV MCH MCHC RDW Std Deviation RDW Coeff of Halley Plt Count MPV Immature Gran % (Auto) Neut % (Auto) Lymph % (Auto) Gem % (Auto) Eos % (Auto) Baso % (Auto) Immature Gran # (Auto) Neut # (Auto) Lymph # (Auto) Gem # (Auto) Eos # (Auto) Baso # (Auto) ESR 3 PT INR APTT 25.6 PTT Ratio 0.9 Sodium 140 Potassium 4.6 Chloride 109 H Carbon Dioxide 29 Anion Gap 2.0 L BUN 17 Creatinine 0.87 Est Cr Clr Drug Dosing 84.7 Est GFR ( Amer) 86.3 Est GFR (Non-Af Amer) 74.5 BUN/Creatinine Ratio 19.0 Glucose 84 Calcium 8.1 L Magnesium Total Bilirubin AST ALT Alkaline Phosphatase Troponin I NT-Pro-B Natriuret Pep Total Protein Albumin Globulin Albumin/Globulin Ratio Lipase TSH Valproic Acid Lyme Disease IgG Ab Lyme Disease IgM Ab Influenza Type A (PCR) Influenza Type B (PCR)
--- NOTE | 2019-11-07 10:02 | Pre Anesthesia Assessment ---
Date of Service November 07, 2019 Pre Sedation Assessment Vital Signs Temp Pulse Pulse Resp BP BP Pulse Ox 11/07/19 08:18 36.8 C 79 22 116/82 97 11/07/19 07:15 78 11/07/19 03:34 36.7 C 74 18 95/59 L 94 11/07/19 00:19 36.4 C L 94 H 18 121/62 93 11/06/19 22:36 36.4 C L 70 20 86/58 L 93 11/06/19 22:01 76 16 105/64 95 11/06/19 21:01 80 19 94/68 L 92 11/06/19 20:42 76 20 85/51 L 91 11/06/19 20:41 73 22 95/53 L 91 11/06/19 20:39 74 22 91/51 L 11/06/19 20:36 81 20 87/54 L 11/06/19 20:31 81 20 93/67 L 11/06/19 20:00 81 20 125/108 H 90 11/06/19 19:30 84 20 120/72 92 11/06/19 19:00 86 20 114/74 95 11/06/19 18:31 92 11/06/19 18:30 89 26 H 122/74 92 11/06/19 17:35 36.4 C L 76 18 135/71 94 Cardiovascular RRR, no murmur, no edema Respiratory normal respiratory effort, lungs clear to auscultation Pre-Sedation Airway Assessment Smoking Status: Never smoker Hx Sleep Apnea: No Short, Thick Neck: No Thyromental Distance: > or= 3.5 Finger Breadths Oral Cavity: + WNL Mallampati Class: II ASA: ASA3 NPO Status Date of Last Intake of Fluids: 11/06/19 Time of Last Intake of Fluids: 19:00 Date of Last Intake of Solid Food: 11/06/19 Time of Last Intake of Solid Foods: 19:00 Procedure Planning Contraindications for Sedation: none Current Medications Reviewed: Yes Notes The planned sedation has been discussed with the patient. Informed Consent was obtained. I have identified the patient, determined the appropriateness of sedation and have assessed the patient immediately prior to the procedure. All medicine(s) and interventions are by my order.
--- NOTE | 2019-11-07 10:33 | Post Anesthesia Assessment ---
Date of Service November 07, 2019 Post Sedation Assessment Vital Signs Temp Pulse Pulse Resp BP BP Pulse Ox 11/07/19 08:18 36.8 C 79 22 116/82 97 11/07/19 07:15 78 11/07/19 03:34 36.7 C 74 18 95/59 L 94 11/07/19 00:19 36.4 C L 94 H 18 121/62 93 11/06/19 22:36 36.4 C L 70 20 86/58 L 93 11/06/19 22:01 76 16 105/64 95 11/06/19 21:01 80 19 94/68 L 92 11/06/19 20:42 76 20 85/51 L 91 11/06/19 20:41 73 22 95/53 L 91 11/06/19 20:39 74 22 91/51 L 11/06/19 20:36 81 20 87/54 L 11/06/19 20:31 81 20 93/67 L 11/06/19 20:00 81 20 125/108 H 90 11/06/19 19:30 84 20 120/72 92 11/06/19 19:00 86 20 114/74 95 11/06/19 18:31 92 11/06/19 18:30 89 26 H 122/74 92 11/06/19 17:35 36.4 C L 76 18 135/71 94 Recovery Score Activity: Moves 4 extremities Respiration: Deep Breath/Cough Circulation: +/-20% PreAnes Value Consciousness: Fully Awake Oxygen Saturation: > 92% On Room Air Discharge Sedation Level of Care: Phase I Post Sedation Plan On clinical assessment, the patient appears to have tolerated the sedation without complications. Patient is recovering as anticipated. Patient will continue to be monitored by nursing and may be discharged when sedation discharge criteria are met per below protocol. Upon Completions of procedure up to 15 minutes continue every 5 minute vital signs and the P.A.R. score; then discharge to a Phase I or Fast Track to Phase II per the following guidelines: * Discharge Patient to appropriate Phase II area if PAR is 8 or greater or return to pre- procedure baseline. The post - procedure orders will be as directed. * If PAR score is less than 8 or not return to pre-procedure baseline then patient will follow Phase I monitoring till PAR is reached for Phase II. The Phase I may be done in procedure room or may call to secure a Phase I area. * If naloxone or flumazenil are used for reversal, hold in Phase I for continued monitoring from when last reversal dose was given for a minimum of 60 minutes or longer pending the nurse and/or physician discretion of patient condition before discharge to Phase II. Please call the Sedation Physician to re-evaluate and complete post-note for discharge to Phase II area. Do NOT discharge from procedure sedation or Phase 1 until post- sedation evaluation note is complete by procedure /sedation MD Sedation Discharge Instructions to be given to the patient at discharge to home.
--- NOTE | 2019-11-07 10:38 | Post Operative Brief Note ---
Cardiology Brief Post Op Date of Surgery November 07, 2019 Pre & Post Diagnosis Operation Date: 11/07/19 09:30 54-year-old lady, referred for cardiac catheterization due to symptoms of intermittent and progressive chest discomfort. Coronary angiography reveals patent coronary arteries, right dominant circulation and no evidence of any significant angiographic atherosclerosis. Normal LVEDP, LV function was not assessed during this study. Procedure Coronary angiography Left heart catheterization Baby Nurse Conrado Read MD Electronic Equipment Installer none Estimated Blood Loss 5 Findings See Below
[2019-11-07] MEDS: PROPRANOLOL HCL 20 MG TAB PO SCH (11:12)
[2019-11-07] MEDS: ENOXAPARIN INJ 40 MG/0.4 ML SYR SQ SCH (11:14)
[2019-11-07] MEDS: DULOXETINE HCL 30 MG CAP PO SCH (11:14)
--- NOTE | 2019-11-07 11:39 | Hospitalist Progress Note ---
Date of Service November 07, 2019 Assessment & Plan (1) Chest pain, precordial: (1) Chest pain, precordial: (2) SOB (shortness of breath): This is a 54-year-old female who has significant PMH of psoriatic arthritis, history of gastric bypass, hypothyroidism, pre-DM, migraine, depression, Szymanski, history of unprovoked PE who presents to ED secondary to substernal chest pain x3 weeks. In ED patient underwent extensive chest pain work-up. Serial troponins negative x3 without ischemic EKG changes. She underwent CTA of chest which was negative for PE or dissection, mild Interstitial prominence throughout both hemithoraces possibly low-grade pneumonitis. Chest x-ray revealed cardiomegaly with suggestion of mild pulmonary vascular congestion. CBC and CMP relatively unremarkable. PRO BNP depakote level WNL. --Status post cardiac catheterization today: Normal coronary anatomy GI consulted, possible EGD on Sunday, Bentyl ordered Monitor (3) Psoriatic arthritis: Follows [facility] rheumatology Recently started Cosentyx, on dose / (4) Pre-diabetes: A1c 10/23 6.3 Counseling (5) Depression: Continue trazodone at bedtime (6) Migraine: Reports left-sided headache today, classic of her migraine attack Imitrex ordered Continue Depakote Depakote level WNL (7) Hypothyroidism: Continue Synthroid Last TSH 05/2019 2.69 (8) History of pulmonary embolism: hx of unprovoked PE, received 6 mon anticoagulation DVT prophylaxis SCDs for now in light of possible GI etiology of pain Disposition: admit to tele Follow up: PCP Dr. Sutton upon discharge Admission and Anticipated Discharge Date Admission Date: November 06, 2019 Subjective Follow-up for chest pain Seen resting in bed, comfortable, not in distress Status post cardiac catheterization Patient reports chest pain is slightly improved, however persistent, sharp/pressure No nausea vomiting, shortness of breath, dizziness, palpitation Denies abdominal pain, change in bowel movement No other symptom Review of Systems Review of Systems: All systems reviewed & are unremarkable except as noted in HPI & below Physical Exam Physical Exam: General- oriented x 3, not in distress, speaks in sentences with no effort or accessory muscle use Head- atraumatic Eyes- PERRL, EOMI, anicteric ENT- oropharynx clear Neck- supple, no JVD, no adenopathy, no thyromegaly; carotids +2/2, no bruits appreciated Lungs- clear to auscultation bilaterally, no rales/wheezes Heart- normal rate, regular rhythm; no murmur, no gallop, no rub appreciated Tenderness to palpation of the sternal area Abdomen- normal bowel sounds, nondistended, soft, nontender, no masses or hepatosplenomegaly Extremities- no pretibial edema, no calf tenderness; peripheral pulses intact Neuro- alert, oriented x 3; CN 2-12 grossly intact; motor 5/5 bilaterally;sensation 100% on all extremities; no other gross focal neurologic deficits Skin- warm & dry Results & Data ([facility]) Vital Signs (Past 12 Hours) Vital Signs Temp Pulse Pulse Resp BP BP Pulse Ox 11/07/19 11:24 81 22 124/89 96 11/07/19 11:09 36.8 C 82 18 117/70 98 11/07/19 10:55 85 16 106/55 L 97 11/07/19 10:40 89 14 110/65 94 11/07/19 08:18 36.8 C 79 22 116/82 97 11/07/19 07:15 78 11/07/19 03:34 36.7 C 74 18 95/59 L 94 11/07/19 00:19 36.4 C L 94 H 18 121/62 93 Laboratory Results Laboratory Results - last 24 hr 11/06/19 11/06/19 11/06/19 17:50 17:50 17:50 WBC RBC Hgb Hct MCV MCH MCHC RDW Std Deviation RDW Coeff of Halley Plt Count MPV Immature Gran % (Auto) Neut % (Auto) Lymph % (Auto) Mills % (Auto) Eos % (Auto) Baso % (Auto) Immature Gran # (Auto) Neut # (Auto) Lymph # (Auto) Mills # (Auto) Eos # (Auto) Baso # (Auto) ESR APTT PTT Ratio Sodium Potassium Chloride Carbon Dioxide Anion Gap BUN Creatinine Est Cr Clr Drug Dosing Est GFR ( Amer) Est GFR (Non-Af Amer) BUN/Creatinine Ratio Glucose Calcium Total Bilirubin 0.3 Alkaline Phosphatase 134 H Troponin I < 0.015 NT-Pro-B Natriuret Pep Total Protein 6.9 Globulin 3.3 Albumin/Globulin Ratio 1.1 TSH 1.600 Valproic Acid Lyme Disease IgG Ab Negative Lyme Disease IgM Ab Negative Influenza Type A (PCR) Influenza Type B (PCR) 11/06/19 11/06/19 11/06/19 20:25 20:25 22:12 WBC RBC Hgb Hct MCV MCH MCHC RDW Std Deviation RDW Coeff of Halley Plt Count MPV Immature Gran % (Auto) Neut % (Auto) Lymph % (Auto) Mills % (Auto) Eos % (Auto) Baso % (Auto) Immature Gran # (Auto) Neut # (Auto) Lymph # (Auto) Mills # (Auto) Eos # (Auto) Baso # (Auto) ESR APTT PTT Ratio Sodium Potassium Chloride Carbon Dioxide Anion Gap BUN Creatinine Est Cr Clr Drug Dosing Est GFR ( Amer) Est GFR (Non-Af Amer) BUN/Creatinine Ratio Glucose Calcium Total Bilirubin Alkaline Phosphatase Troponin I < 0.015 NT-Pro-B Natriuret Pep 21 Total Protein Globulin Albumin/Globulin Ratio TSH Valproic Acid 63 Lyme Disease IgG Ab Lyme Disease IgM Ab Influenza Type A (PCR) Neg for Influ A Influenza Type B (PCR) Neg for Influ B 11/07/19 11/07/19 11/07/19 03:51 03:51 03:51 WBC 5.38 RBC 4.06 L Hgb 10.9 L Hct 34.7 L MCV 85.5 MCH 26.8 MCHC 31.4 L RDW Std Deviation 46.7 H RDW Coeff of Halley 15.0 H Plt Count 245 MPV 9.6 Immature Gran % (Auto) 0.2 Neut % (Auto) 46.8 Lymph % (Auto) 40.0 Mills % (Auto) 10.6 Eos % (Auto) 2.0 Baso % (Auto) 0.4 Immature Gran # (Auto) 0.01 Neut # (Auto) 2.52 Lymph # (Auto) 2.15 Mills # (Auto) 0.57 Eos # (Auto) 0.11 Baso # (Auto) 0.02 ESR 3 APTT 25.6 PTT Ratio 0.9 Sodium Potassium Chloride Carbon Dioxide Anion Gap BUN Creatinine Est Cr Clr Drug Dosing Est GFR ( Amer) Est GFR (Non-Af Amer) BUN/Creatinine Ratio Glucose Calcium Total Bilirubin Alkaline Phosphatase Troponin I NT-Pro-B Natriuret Pep Total Protein Globulin Albumin/Globulin Ratio TSH Valproic Acid Lyme Disease IgG Ab Lyme Disease IgM Ab Influenza Type A (PCR) Influenza Type B (PCR) 11/07/19 03:51 WBC RBC Hgb Hct MCV MCH MCHC RDW Std Deviation RDW Coeff of Halley Plt Count MPV Immature Gran % (Auto) Neut % (Auto) Lymph % (Auto) Mills % (Auto) Eos % (Auto) Baso % (Auto) Immature Gran # (Auto) Neut # (Auto) Lymph # (Auto) Mills # (Auto) Eos # (Auto) Baso # (Auto) ESR APTT PTT Ratio Sodium 140 Potassium 4.6 Chloride 109 H Carbon Dioxide 29 Anion Gap 2.0 L BUN 17 Creatinine 0.87 Est Cr Clr Drug Dosing 84.7 Est GFR ( Amer) 86.3 Est GFR (Non-Af Amer) 74.5 BUN/Creatinine Ratio 19.0 Glucose 84 Calcium 8.1 L Total Bilirubin Alkaline Phosphatase Troponin I NT-Pro-B Natriuret Pep Total Protein Globulin Albumin/Globulin Ratio TSH Valproic Acid Lyme Disease IgG Ab Lyme Disease IgM Ab Influenza Type A (PCR) Influenza Type B (PCR)
--- NOTE | 2019-11-07 11:44 | Cardiology Progress Note ---
Date of Service November 07, 2019 Subjective Patient underwent diagnostic cardiac catheterization with normal coronary anatomy defined. Patient had severe chest pain when lying recumbent on table. No cardiac etiology found. Would recommend referral to GI possible endoscopy given complaints history of past gastric bypass, mildly depressed hemoglobin Results & Data Vital Signs (Past 12 Hours) Vital Signs Temp Pulse Pulse Resp BP BP Pulse Ox 11/07/19 11:24 81 22 124/89 96 11/07/19 11:09 36.8 C 82 18 117/70 98 11/07/19 10:55 85 16 106/55 L 97 11/07/19 10:40 89 14 110/65 94 11/07/19 08:18 36.8 C 79 22 116/82 97 11/07/19 07:15 78 11/07/19 03:34 36.7 C 74 18 95/59 L 94 11/07/19 00:19 36.4 C L 94 H 18 121/62 93
[2019-11-07] MEDS ORDERED: SUMAtriptan succinate 50 MG TAB PO STA (11:46)
--- NOTE | 2019-11-07 12:57 | Gastrointestinal Consultation ---
Date of Consultation November 07, 2019 Assessment & Plan (1) Chest pain, precordial: (2) SOB (shortness of breath): (3) Nausea: (4) Status post gastric bypass for obesity: Pt is a 54 y/o female admitted w chest pain, SOB, cardiac workup had been negative, CTA ruled out PE. She has associated dysphagia, nausea w/o vomiting. Hx of Neel en Y gastric bypass in 2008. On exam TTP epigastric and LLQ areas. Last EGD in 2018 normal pouch, small erosions on one suture site. Unclear etiology of chest pain. DDx: esophagitis, PUD, IBS, esophageal spasm - Continue Protonix 40mg BID - Pt just had conscious sedation this AM for her cardica cath procedure thus unable to be consented for EGD today. If she stays admitted over weekend, we can plan for EGD eval on Sunday. - Add Dicyclomine 10mg BID prn abd pain Attg add: I interviewed and examined pt, reviewed chart and labs. Pt with chest pain, neg cards/pulm w/u. TTP over chest. Post jaziel. LFT's wnl except for mild stable alk phos elevation. Recs as above. History of Present Illness Reason for Consultation: Atypical chest pain; hx of gastric bypass Requesting Physician: Dr. Tano Perry Attending Physician: Dr. Nargis Elmore History of Present Illness Pt is a 54 y/o female who was admitted for chest pain symptoms x 3 weeks. Pain would start in mid chest radiating to bilateral shoulders and also straight to back. She has associated diaphoresis, SOB, mild nausea w/o vomiting. Pain worse with ambulation and sometimes when eating. She also feels at times food may get stuck temporarily in throat. She endorses lower abd pain symptoms but denies bowel habit changes. She had cardiac workup including Troponin levels, and cardiac cath this AM which were negative for acute cardiac disease. CTA chest negative for PE, possible pneumonitis. She has hx of Neel en Y gastric bypass in 2008. She denies tobacco, NSAIDs, ETOH uses. She has had c/o abd pain in the past. Several EGDs, last done in 2018 showed normal pouch, suture site w small erosion but unable to be removed. Colonoscopy 2016 showed int/ext hemorrhoids, + diverticulosis transverse, descending, sigmoid colon. She reports taking Protonix at home and Dicyclomine but I don't this med listed in her outpt med list Allergies Allergy/AdvReac Type Severity Reaction Status Date / Time oxycodone Allergy Intermediate HIVES Verified 11/06/19 18:49 piperacillin Allergy Intermediate Pruritus Verified 11/06/19 18:49 tazobactam Allergy Intermediate Pruritus Verified 11/06/19 18:49 ketorolac Allergy Mild Itching Verified 11/06/19 18:49 vancomycin AdvReac Unknown deathly ill Verified 11/06/19 18:49 Home Medications Home Medications Medication Instructions Recorded Confirmed Type albuterol sulfate [Ventolin HFA] 2 puff INHALATION QID PRN 07/17/18 11/06/19 History ergocalciferol (vitamin D2) 50,000 units PO 2XWK 07/17/18 11/06/19 History [Vitamin D2] levothyroxine [Synthroid] 25 mcg PO QAM 07/17/18 11/06/19 History magnesium oxide 400 mg PO DAILY 07/17/18 11/06/19 History pantoprazole [Protonix] 40 mg PO BID 07/17/18 11/06/19 History promethazine 25 mg PO Q8H PRN 07/17/18 11/06/19 History sumatriptan succinate [Imitrex] 50 mg PO DIRECTED PRN 07/17/18 11/06/19 History duloxetine 30 mg PO DAILY 11/17/18 11/06/19 History lorazepam [Ativan] 0.5 mg PO DAILY PRN 11/17/18 11/06/19 History cyanocobalamin (vitamin B-12) 1,000 mcg IM .Q4 WEEKS 02/25/19 11/06/19 History ondansetron 8 mg PO Q8H PRN 02/25/19 11/06/19 History divalproex [Depakote ER] 750 mg PO HS 11/06/19 11/06/19 History propranolol 60 mg PO DAILY 11/06/19 11/06/19 History secukinumab [Cosentyx] 150 mg SUBCUT WK 11/06/19 11/06/19 History trazodone 300 mg PO HS 11/06/19 11/06/19 History Patient History Medical History Clostridium difficile colitis (Resolved) Depression (Chronic) Edema (Chronic) GERD (gastroesophageal reflux disease) (Chronic) History of DVT (deep vein thrombosis) (Resolved) History of pulmonary embolism (Resolved) "completed 6 months Coumadin therapy" On 06/27/16 17:03 Nuha Zarate wrote On 03/23/16 16:22 Dottie Eladia wrote "2000 per patient; s/p knee replacement" MINI (iron deficiency anemia) (Chronic) Psoriatic arthritis (Chronic) Sleep apnea (Chronic) Vertigo (Chronic) Surgical History H/O wisdom tooth extraction (Resolved) History of appendectomy (Resolved) History of carpal tunnel surgery (Resolved) History of cholecystectomy (Resolved) S/P hysterectomy (Resolved) Status post appendectomy (Resolved) Status post cholecystectomy (Resolved) Status post gastric bypass for obesity (Resolved) Status post total knee replacement (Resolved) Family History Mother Rheumatoid arthritis Father Cancer blood cancer Denies family history of Hypertension Social History Preferred Language: Hungarian Communication Ability: Effective Order Picker/Assembler Required: No Beliefs That Will Affect Care: None Current Living Situation: Family Other Information That Helps Us Care for You: No Feels Safe at Home: Yes Safety Concerns: Feels Safe At This Time Smoking Status: Never smoker Do You Dip or Chew Tobacco: No ; Hx Alcohol Use: No Hx Substance Use: No Review of Systems Review of Systems: All systems reviewed & are unremarkable except as noted in HPI & below Physical Exam Constitutional: WD/WN, vitals as above well groomed, cooperative and comfortable Eyes: PERRL, conjunctivae normal, anicteric sclerae ENMT: external ear and nose normal, oropharynx normal Respiratory: normal respiratory effort, lungs clear to auscultation Cardiovascular: RRR, no murmur, no edema Gastrointestinal (Abdomen): Inspection/Auscultation: normal bowel sounds Percussion/Palpation: + abdomen tender (epigastric, LLQ) and abdomen soft Skin: no rashes, warm and dry no jaundice Psychiatric: A+Ox3, euthymic affect Lymphatic: no lymphedema Results & Data ([facility]) Vital Signs (Past 12 Hours) Vital Signs Temp Pulse Pulse Resp BP BP Pulse Ox 11/07/19 11:46 69 24 102/70 100 11/07/19 11:30 75 24 108/77 97 11/07/19 11:24 81 22 124/89 96 11/07/19 11:09 36.8 C 82 18 117/70 98 11/07/19 10:55 85 16 106/55 L 97 11/07/19 10:40 89 14 110/65 94 11/07/19 08:18 36.8 C 79 22 116/82 97 11/07/19 07:15 78 11/07/19 03:34 36.7 C 74 18 95/59 L 94
[2019-11-07] MEDS ORDERED: DICYCLOMINE HCL 10 MG CAP PO PRN ×2 (13:32→16:03)
--- NOTE | 2019-11-07 18:24 | Electrocardiogram Report ---
Test Reason : Blood Pressure : / mmHG Vent. Rate : 079 BPM Atrial Rate : 079 BPM P-R Int : 182 ms QRS Dur : 086 ms QT Int : 350 ms P-R-T Axes : 022 -03 058 degrees QTc Int : 401 ms Normal sinus rhythm Inferior infarct (cited on or before 04-JAN-2017) Anteroseptal infarct (cited on or before 04-JAN-2017) Incomplete right bundle branch block Abnormal ECG When compared with ECG of 17-NOV-2018 12:16, No significant change was found Confirmed by Gianluca Whelan ([id number]) on 11/07/2019 6:24:25 PM Referred By: REFERRED SELF Confirmed By:Rolo Whelan
--- NOTE | 2019-11-07 18:25 | Electrocardiogram Report ---
Test Reason : Blood Pressure : / mmHG Vent. Rate : 085 BPM Atrial Rate : 085 BPM P-R Int : 186 ms QRS Dur : 092 ms QT Int : 342 ms P-R-T Axes : 023 -14 042 degrees QTc Int : 406 ms Normal sinus rhythm Incomplete right bundle branch block Minimal voltage criteria for LVH, may be normal variant Inferior infarct (cited on or before 04-JAN-2017) Anterior infarct (cited on or before 04-JAN-2017) Abnormal ECG Confirmed by Gianluca Whelan ([id number]) on 11/07/2019 6:25:18 PM Referred By: REFERRED SELF Confirmed By:Rolo Whelan
--- NOTE | 2019-11-07 18:26 | Electrocardiogram Report ---
Test Reason : Blood Pressure : / mmHG Vent. Rate : 084 BPM Atrial Rate : 084 BPM P-R Int : 184 ms QRS Dur : 078 ms QT Int : 370 ms P-R-T Axes : 026 -15 024 degrees QTc Int : 437 ms Normal sinus rhythm Minimal voltage criteria for LVH, may be normal variant Inferior infarct (cited on or before 04-JAN-2017) Anterolateral infarct (cited on or before 01-MAY-2017) Abnormal ECG When compared with ECG of 06-NOV-2019 18:32, (unconfirmed) Incomplete right bundle branch block is no longer Present Confirmed by Gianluca Whelan ([id number]) on 11/07/2019 6:26:15 PM Referred By: REFERRED SELF Confirmed By:Rolo Whelan
[2019-11-07] MEDS: TRAZODONE HCL 100 MG TAB PO SCH (21:07)
[2019-11-07] MEDS: DIVALPROEX EXTENDED RELEASE 250 MG TABCR PO SCH (21:07)
[2019-11-08] MEDS: TRAMADOL HCL 50 MG TABLET PO PRN ×4 (01:47→17:03)
[2019-11-08] MEDS: PROMETHAZINE HCL 12.5 MG in SODIUM CHLORIDE 0.9% 50 ML IV PRN ×4 (01:48→23:42)
[2019-11-08] MEDS: LEVOTHYROXINE SODIUM 25 MCG TABLET PO SCH (06:09)
[2019-11-08] MEDS: SODIUM CHLORIDE 0.9% 1000ML 1,000 ML IV SCH ×3 (06:10→16:59)
[2019-11-08] MEDS: PANTOprazole 40 MG TAB PO SCH ×2 (09:03→20:49)
[2019-11-08] MEDS: ENOXAPARIN INJ 40 MG/0.4 ML SYR SQ SCH (09:03)
[2019-11-08] MEDS: DULOXETINE HCL 30 MG CAP PO SCH (09:04)
[2019-11-08] MEDS: PROPRANOLOL HCL 20 MG TAB PO SCH (09:04)
[2019-11-08] MEDS ORDERED: ALUMINUM/MAGNESIUM SUSP 30 ML UDC PO PRN (10:27)
[2019-11-08] MEDS: SUCRALFATE 1 GM TAB PO SCH ×4 (11:21→20:48)
--- NOTE | 2019-11-08 20:46 | Hospitalist Progress Note ---
Date of Service delayed entry date of service as noted below November 08, 2019 Assessment & Plan (1) Chest pain, precordial: (1) Chest pain, precordial: (2) SOB (shortness of breath): This is a 54-year-old female who has significant PMH of psoriatic arthritis, history of gastric bypass, hypothyroidism, pre-DM, migraine, depression, Szymanski, history of unprovoked PE who presents to ED secondary to substernal chest pain x3 weeks. In ED patient underwent extensive chest pain work-up. Serial troponins negative x3 without ischemic EKG changes. She underwent CTA of chest which was negative for PE or dissection, mild Interstitial prominence throughout both hemithoraces possibly low-grade pneumonitis. Chest x-ray revealed cardiomegaly with suggestion of mild pulmonary vascular congestion. CBC and CMP relatively unremarkable. PRO BNP depakote level WNL. -- still having atypical chest pain Sucralfate added, PRN Maalox --Status post cardiac catheterization: Normal coronary anatomy GI consulted, possible EGD on Sunday, Bentyl ordered Monitor (3) Psoriatic arthritis: Follows [facility] rheumatology Recently started Cosentyx, on dose 4/ (4) Pre-diabetes: A1c 10/23 6.3 Counseling (5) Depression: Continue trazodone at bedtime (6) Migraine: Migraine resolved with Imitrex Continue Depakote Depakote level WNL (7) Hypothyroidism: Continue Synthroid Last TSH 05/2019 2.69 (8) History of pulmonary embolism: hx of unprovoked PE, received 6 mon anticoagulation DVT prophylaxis Lovenox Disposition: admit to tele Follow up: PCP Dr. Sutton upon discharge Admission and Anticipated Discharge Date Admission Date: November 06, 2019 Subjective ff up for atypical chest pain seen resting in bed, not in distress states chest pain is still present intermittently no nausea, abdominal pain no palpitations, dizziness no BM yet, (+) flatus no other symptoms Review of Systems Review of Systems: All systems reviewed & are unremarkable except as noted in HPI & below Physical Exam Physical Exam: General- oriented x 3, not in distress, speaks in sentences with no effort or accessory muscle use Eyes- anicteric Neck- no JVD Lungs- clear BS BL no crackles no wheezing Heart- normal rate, regular rhythm; no murmurs Abdomen- normal bowel sounds, nondistended, soft, nontender Extremities- no pretibial edema, no calf tenderness Neuro- alert, oriented x 3; no gross focal neurologic deficits Skin- warm & dry Results & Data ([facility]) Vital Signs (Past 12 Hours) Vital Signs Pulse Resp BP Pulse Ox 11/08/19 11:57 69 20 96/60 L 93
[2019-11-08] MEDS: DIVALPROEX EXTENDED RELEASE 250 MG TABCR PO SCH (20:48)
[2019-11-08] MEDS: TRAZODONE HCL 100 MG TAB PO SCH (21:56)
[2019-11-09] MEDS: SODIUM CHLORIDE 0.9% 1000ML 1,000 ML IV SCH ×2 (03:11→12:58)
[2019-11-09] MEDS: PROMETHAZINE HCL 12.5 MG in SODIUM CHLORIDE 0.9% 50 ML IV PRN ×3 (05:24→18:51)
[2019-11-09] MEDS: TRAMADOL HCL 50 MG TABLET PO PRN ×3 (05:24→15:36)
[2019-11-09] MEDS: LEVOTHYROXINE SODIUM 25 MCG TABLET PO SCH (05:30)
[2019-11-09] MEDS: SUCRALFATE 1 GM TAB PO SCH ×4 (07:47→21:51)
[2019-11-09] MEDS: DULOXETINE HCL 30 MG CAP PO SCH (07:48)
[2019-11-09] MEDS: ENOXAPARIN INJ 40 MG/0.4 ML SYR SQ SCH (07:49)
[2019-11-09] MEDS: PANTOprazole 40 MG TAB PO SCH ×2 (07:50→21:51)
[2019-11-09] MEDS ORDERED: POLYETHYLENE (MIRALAX) 17 GM PACK PO PRN (08:00)
[2019-11-09] MEDS: DOCUSATE SODIUM/SENNA 50/8.6MG TAB PO SCH (08:59)
[2019-11-09] MEDS: PROPRANOLOL HCL 20 MG TAB PO SCH (08:59)
[2019-11-09] MEDS ORDERED: SUMAtriptan succinate 50 MG TAB PO ONE (16:01)
--- NOTE | 2019-11-09 16:09 | Hospitalist Progress Note ---
Date of Service November 09, 2019 Assessment & Plan (1) Chest pain, precordial: (1) Chest pain, precordial: (2) SOB (shortness of breath): This is a 54-year-old female who has significant PMH of psoriatic arthritis, history of gastric bypass, hypothyroidism, pre-DM, migraine, depression, Szymanski, history of unprovoked PE who presents to ED secondary to substernal chest pain x3 weeks. In ED patient underwent extensive chest pain work-up. Serial troponins negative x3 without ischemic EKG changes. She underwent CTA of chest which was negative for PE or dissection, mild Interstitial prominence throughout both hemithoraces possibly low-grade pneumonitis. Chest x-ray revealed cardiomegaly with suggestion of mild pulmonary vascular congestion. CBC and CMP relatively unremarkable. PRO BNP depakote level WNL. -- still having atypical chest pain Sucralfate added, PRN Maalox --Status post cardiac catheterization: Normal coronary anatomy GI consulted, possible EGD tomorrow, keep NPO Monitor (3) Psoriatic arthritis: Follows [facility] rheumatology Recently started Cosentyx, on dose 4/5 (4) Pre-diabetes: A1c 10/23 6.3 Counseling (5) Depression: Continue trazodone at bedtime (6) Migraine: (+) migraine headache today, start Imitrex Continue Depakote Depakote level WNL (7) Hypothyroidism: Continue Synthroid Last TSH 05/2019 2.69 (8) History of pulmonary embolism: hx of unprovoked PE, received 6 mon anticoagulation DVT prophylaxis Lovenox Disposition: admit to tele Follow up: PCP Dr. Sutton upon discharge Admission and Anticipated Discharge Date Admission Date: November 06, 2019 Subjective ff up for atypical chest pain seen resting in bed, not in distress felt short of breath walking to bed from bathroom lasted about 15 mins, resolved completely still has similar chest discomfort no nausea, no BM yet, (+) flatus reports left sided headache, reminiscent of migraine denies other symptoms Review of Systems Review of Systems: All systems reviewed & are unremarkable except as noted in HPI & below Physical Exam Physical Exam: General- oriented x 3, not in distress, speaks in sentences with no effort or accessory muscle use Eyes- anicteric Neck- no JVD Lungs- clear BS BL no rales no wheezing Heart- normal rate, regular rhythm; no murmurs Abdomen- normal bowel sounds, nondistended, soft, nontender Extremities- no pretibial edema, no calf tenderness Neuro- alert, oriented x 3; no gross focal neurologic deficits Skin- warm & dry Results & Data ([facility]) Vital Signs (Past 12 Hours) Vital Signs Temp Pulse Resp BP Pulse Ox 11/09/19 15:06 36.7 C 58 L 20 118/72 94 11/09/19 08:57 77 104/64 93 11/09/19 07:40 36.5 C 54 L 18 106/60 96
[2019-11-09] MEDS: TRAZODONE HCL 100 MG TAB PO SCH (21:51)
[2019-11-09] MEDS: DIVALPROEX EXTENDED RELEASE 250 MG TABCR PO SCH (21:51)
[2019-11-10] MEDS: LEVOTHYROXINE SODIUM 25 MCG TABLET PO SCH (06:00)
[2019-11-10] MEDS: TRAMADOL HCL 50 MG TABLET PO PRN ×3 (06:43→18:43)
[2019-11-10] MEDS: PROMETHAZINE HCL 12.5 MG in SODIUM CHLORIDE 0.9% 50 ML IV PRN ×3 (07:02→21:45)
[2019-11-10] MEDS: SUCRALFATE 1 GM TAB PO SCH ×4 (08:11→20:27)
[2019-11-10] MEDS: DOCUSATE SODIUM/SENNA 50/8.6MG TAB PO SCH (08:12)
[2019-11-10] MEDS: PROPRANOLOL HCL 20 MG TAB PO SCH (08:12)
[2019-11-10] MEDS: ENOXAPARIN INJ 40 MG/0.4 ML SYR SQ SCH (08:12)
[2019-11-10] MEDS: DULOXETINE HCL 30 MG CAP PO SCH (08:12)
[2019-11-10] MEDS: PANTOprazole 40 MG TAB PO SCH ×2 (08:12→20:28)
--- NOTE | 2019-11-10 09:10 | Gastroenterology Progress Note ---
Date of Service November 10, 2019 Assessment & Plan (1) Status post gastric bypass for obesity: (2) Epigastric abdominal pain: EGD today by Dr. pham with findings of normal, post Neel-en-Y gastric bypass. With recommendation to continue acid suppression medication. Further GI procedures planned for this admission. Admission and Anticipated Discharge Date Admission Date: November 09, 2019 Supervising Physician Co-Signing Physician Notes I have seen and examined the patient with LISA Pierce whose note reflects our findings and plan. EGD done today shows normal RYGB anatomy without any evidence of ulcer or inflammation. OK to advance diet. Bowel regimen for constipation. Please call with questions. Subjective Ms. Fercho Link is a 54 yr old female pt with hx of RYGB for obesity, hypothyroid, migraines, GERD, sleep apnea, PE, DVT, psoriatic arthritis, S/P appey, choley, admitted on 11/06 for CP. Cardiac issues have been ruled out and GI is being asked to provide EGD today. Review of Systems Review of Systems: ROS: Gen: + weakness, No fevers, no weight loss Eyes: No eye redness, or pain, no recent vision changes Resp: + cough Cardio: + CP, denies palpitations GI: + mid left abd pain since last , worse overnight : Denies pain on urination Skin: No jaundice, itching or new rashes Physical Exam Constitutional: WD/WN, vitals as above well nourished Eyes: PERRL, conjunctivae normal, anicteric sclerae ENMT: external ear and nose normal, oropharynx normal Neck: trachea midline, no thyromegaly normal visual inspection Respiratory: normal respiratory effort, lungs clear to auscultation Cardiovascular: RRR, no murmur, no edema Gastrointestinal (Abdomen): Inspection/Auscultation: abdomen normal to inspection Percussion/Palpation: + abdomen tender (Left mid and periumbilical areas, no rebound or guarding) and abdomen soft Musculoskeletal: no cyanosis or clubbing, extremities motor strength 5/5 Skin: no rashes, warm and dry Neurologic: PERRL, EOMI, accommodation nl, no face palsy, no dysarthria Lymphatic: no cervical or axillary lymphadenopathy Results & Data ([facility]) Vital Signs (Past 12 Hours) Vital Signs Temp Pulse Resp BP Pulse Ox 11/10/19 07:24 36.7 C 63 16 118/76 90 11/09/19 23:32 36.7 C 71 20 102/63 90 Laboratory Results WBC 5.3, Hb 10.9, HCT 34.7, platelets 245, INR 1.0, NA 140, K4.6, BUN 17, CR 0.87, glucose 84, LFTs normal, lipase 53,
--- NOTE | 2019-11-10 10:35 | History & Physical Report ---
Date of Service November 10, 2019 Assessment & Plan (1) Epigastric abdominal pain: EGD today History of Present Illness Chief Complaint: epigastric pain h/o RYGB Primary Care Provider: Richi Sutton DO h/o RYGB epig pain nausea Allergies Allergy/AdvReac Type Severity Reaction Status Date / Time oxycodone Allergy Intermediate HIVES Verified 11/06/19 18:49 piperacillin Allergy Intermediate Pruritus Verified 11/06/19 18:49 tazobactam Allergy Intermediate Pruritus Verified 11/06/19 18:49 ketorolac Allergy Mild Itching Verified 11/06/19 18:49 vancomycin AdvReac Unknown deathly ill Verified 11/06/19 18:49 Home Medications Home Medications Medication Instructions Recorded Confirmed Type albuterol sulfate [Ventolin HFA] 2 puff INHALATION QID PRN 07/17/18 11/06/19 History ergocalciferol (vitamin D2) 50,000 units PO 2XWK 07/17/18 11/06/19 History [Vitamin D2] levothyroxine [Synthroid] 25 mcg PO QAM 07/17/18 11/06/19 History magnesium oxide 400 mg PO DAILY 07/17/18 11/06/19 History pantoprazole [Protonix] 40 mg PO BID 07/17/18 11/06/19 History promethazine 25 mg PO Q8H PRN 07/17/18 11/06/19 History sumatriptan succinate [Imitrex] 50 mg PO DIRECTED PRN 07/17/18 11/06/19 History duloxetine 30 mg PO DAILY 11/17/18 11/06/19 History lorazepam [Ativan] 0.5 mg PO DAILY PRN 11/17/18 11/06/19 History cyanocobalamin (vitamin B-12) 1,000 mcg IM .Q4 WEEKS 02/25/19 11/06/19 History ondansetron 8 mg PO Q8H PRN 02/25/19 11/06/19 History divalproex [Depakote ER] 750 mg PO HS 11/06/19 11/06/19 History propranolol 60 mg PO DAILY 11/06/19 11/06/19 History secukinumab [Cosentyx] 150 mg SUBCUT WK 11/06/19 11/06/19 History trazodone 300 mg PO HS 11/06/19 11/06/19 History Past Med/Surg History Medical History Clostridium difficile colitis (Resolved) Depression (Chronic) Edema (Chronic) GERD (gastroesophageal reflux disease) (Chronic) History of DVT (deep vein thrombosis) (Resolved) History of pulmonary embolism (Resolved) "completed 6 months Coumadin therapy" On 06/27/16 17:03 Nuha Zarate wrote On 03/23/16 16:22 Dottie Eladia wrote "2000 per patient; s/p knee replacement" MINI (iron deficiency anemia) (Chronic) Psoriatic arthritis (Chronic) Sleep apnea (Chronic) Vertigo (Chronic) Surgical History H/O wisdom tooth extraction (Resolved) History of appendectomy (Resolved) History of carpal tunnel surgery (Resolved) History of cholecystectomy (Resolved) S/P hysterectomy (Resolved) Status post appendectomy (Resolved) Status post cholecystectomy (Resolved) Status post gastric bypass for obesity (Resolved) Status post total knee replacement (Resolved) Family History Mother Rheumatoid arthritis Father Cancer blood cancer Denies family history of Hypertension Social History Preferred Language: Nepali Communication Ability: Effective Cissp Required: No Beliefs That Will Affect Care: None Current Living Situation: Family Other Information That Helps Us Care for You: No Feels Safe at Home: Yes Safety Concerns: Feels Safe At This Time Smoking Status: Never smoker Do You Dip or Chew Tobacco: No ; Hx Alcohol Use: No Hx Substance Use: No Review of Systems All systems reviewed & are unremarkable except as noted in HPI & below Physical Exam Constitutional: WD/WN, vitals as above Respiratory: normal respiratory effort, lungs clear to auscultation Cardiovascular: RRR, no murmur, no edema Gastrointestinal (Abdomen): normal bowel sounds, soft, nontender, no hepatosplenomegaly Results & Data Vital Signs (Past 12 Hours) Vital Signs Temp Pulse Resp BP Pulse Ox 11/10/19 07:24 36.7 C 63 16 118/76 90 11/09/19 23:32 36.7 C 71 20 102/63 90 Code Status & VTE Plan VTE Prophylaxis Plan VTE Prophylaxis will be ordered: Yes
--- NOTE | 2019-11-10 10:36 | Anesthesiology Consultation ---
Date of Service November 10, 2019 Assessment & Plan Chart Review Chart Review: Acceptable Risk for Surgery and Patient NOT seen in Pre Admission Testing Consults Requested none ASA ASA4 Proposed Anesthesia Anesthesia Type: MAC Risk / Benefits Reviewed With: PT / POA / Parent / Guardian, Accepts Plan and Informed Consent Obtained History Surgery Operation Date: 11/07/19 09:30 Proposed Procedures p Cardiac Cath Procedure - Conrado Read MD Operation Date: 11/10/19 16:30 Proposed Procedures p Esophagogastroduodenoscopy Dr Freeman - Mary Freeman Height/Weight Height: 5 ft 5 in Weight: 100 kg Allergies Allergy/AdvReac Type Severity Reaction Status Date / Time oxycodone Allergy Intermediate HIVES Verified 11/06/19 18:49 piperacillin Allergy Intermediate Pruritus Verified 11/06/19 18:49 tazobactam Allergy Intermediate Pruritus Verified 11/06/19 18:49 ketorolac Allergy Mild Itching Verified 11/06/19 18:49 vancomycin AdvReac Unknown deathly ill Verified 11/06/19 18:49 Medications Home Medications Medication Instructions Recorded Confirmed Last Taken albuterol sulfate [Ventolin HFA] 2 puff INHALATION QID PRN 07/17/18 11/06/19 01/28/19 ergocalciferol (vitamin D2) 50,000 units PO 2XWK 07/17/18 11/06/19 11/03/19 [Vitamin D2] levothyroxine [Synthroid] 25 mcg PO QAM 07/17/18 11/06/19 11/06/19 magnesium oxide 400 mg PO DAILY 07/17/18 11/06/19 11/06/19 pantoprazole [Protonix] 40 mg PO BID 07/17/18 11/06/19 11/06/19 AM DOSE promethazine 25 mg PO Q8H PRN 07/17/18 11/06/19 01/29/19 sumatriptan succinate [Imitrex] 50 mg PO DIRECTED PRN 07/17/18 11/06/19 02/25/19 10:30 duloxetine 30 mg PO DAILY 11/17/18 11/06/19 11/06/19 lorazepam [Ativan] 0.5 mg PO DAILY PRN 11/17/18 11/06/19 01/29/19 cyanocobalamin (vitamin B-12) 1,000 mcg IM .Q4 WEEKS 02/25/19 11/06/19 Unknown ondansetron 8 mg PO Q8H PRN 02/25/19 11/06/19 Unknown divalproex [Depakote ER] 750 mg PO HS 11/06/19 11/06/19 Unknown propranolol 60 mg PO DAILY 11/06/19 11/06/19 11/06/19 AM DOSE secukinumab [Cosentyx] 150 mg SUBCUT WK 11/06/19 11/06/19 11/03/19 trazodone 300 mg PO HS 11/06/19 11/06/19 11/05/19 Active Medications Generic Name Dose Route Start Last Admin Trade Name Freq PRN Reason Stop Dose Admin Al Hydrox/Mg Hydrox/Simethicone 30 ml 11/08/19 10:27 11/08/19 11:21 Maalox PO 12/08/19 10:26 30 ml Q6H PRN Administration Dyspepsia Dicyclomine HCl 10 mg 11/07/19 13:32 11/07/19 16:56 Bentyl PO 12/07/19 20:59 10 mg BID PRN Administration abdominal pain Dicyclomine HCl 10 mg 11/07/19 16:03 11/09/19 07:50 Bentyl PO 12/07/19 16:02 10 mg BID PRN Administration pain Divalproex Sodium 750 mg 11/07/19 21:00 11/09/19 21:51 Depakote Extended Release PO 12/07/19 20:59 750 mg HS DRE Administration Duloxetine HCl 30 mg 11/07/19 09:00 11/10/19 08:12 Cymbalta PO 12/07/19 08:59 30 mg DAILY DRE Administration Enoxaparin Sodium 40 mg 11/07/19 09:00 11/10/19 08:12 Lovenox SQ 12/07/19 08:59 40 mg QAM DRE Administration Promethazine HCl 12.5 mg/ 50.5 mls @ 202 mls/hr 11/06/19 22:49 11/10/19 07:17 Sodium Chloride IV 12/06/19 22:48 Infused Q6H PRN Infusion Nausea And Vomiting Levothyroxine Sodium 25 mcg 11/07/19 06:30 11/10/19 06:00 Synthroid PO 12/07/19 06:29 25 mcg DAILYBB DRE Administration Lorazepam 0.5 mg 11/06/19 22:49 11/07/19 05:37 Ativan PO 12/06/19 22:48 0.5 mg DAILY PRN Administration Anxiety Pantoprazole Sodium 40 mg 11/06/19 22:49 11/10/19 08:12 Protonix PO 12/06/19 22:48 40 mg BID DRE Administration Propranolol HCl 60 mg 11/07/19 09:00 11/10/19 08:12 Inderal PO 12/07/19 08:59 60 mg DAILY DRE Administration Senna/Docusate Sodium 1 tab 11/09/19 09:00 11/10/19 08:12 Senokot S PO 12/09/19 08:59 1 tab QAM DRE Administration Sucralfate 1 gm 11/08/19 10:30 11/10/19 08:11 Carafate Tab PO 12/08/19 10:29 1 gm QID DRE Administration Tramadol HCl 25 - 50 mg 11/06/19 22:49 11/10/19 06:43 Ultram PO 12/06/19 22:48 50 mg Q4H PRN Administration Pain Trazodone HCl 300 mg 11/07/19 21:00 11/09/19 21:51 Desyrel PO 12/07/19 20:59 300 mg HS DRE Administration NPO Date Last Intake of Fluids: 11/09/19 Time Last Intake of Fluids: 23:00 Date Last Intake of Solids: 11/09/19 Time Last Intake of Solids: 18:00 Past Medical History Medical History Clostridium difficile colitis (Resolved) Depression (Chronic) Edema (Chronic) GERD (gastroesophageal reflux disease) (Chronic) History of DVT (deep vein thrombosis) (Resolved) History of pulmonary embolism (Resolved) "completed 6 months Coumadin therapy" On 06/27/16 17:03 Nuha Zarate wrote On 03/23/16 16:22 Dottie Montilla wrote "2000 per patient; s/p knee replacement" MINI (iron deficiency anemia) (Chronic) Psoriatic arthritis (Chronic) Sleep apnea (Chronic) Vertigo (Chronic) Exercise / Class Metabolic Activity III < 4 Walking/Shop/Light housework Past Family History Family History Mother Rheumatoid arthritis Father Cancer blood cancer Denies family history of Hypertension Past Surgical History Surgical History H/O wisdom tooth extraction (Resolved) History of appendectomy (Resolved) History of carpal tunnel surgery (Resolved) History of cholecystectomy (Resolved) S/P hysterectomy (Resolved) Status post appendectomy (Resolved) Status post cholecystectomy (Resolved) Status post gastric bypass for obesity (Resolved) Status post total knee replacement (Resolved) Past Anesthesia History No Hx of Anesthesia Complications and No Family Hx of Anesthesia Complications History of PONV No Hx of PONV and No Hx of Motion Sickness Social History Smoking Status: Never smoker Do You Dip or Chew Tobacco: No Hx Alcohol Use: No Hx Substance Use: No substance use type: does not use Physical Exam Vital Signs Last Vital Signs Temp 36.7 C 11/10/19 07:24 Pulse 63 11/10/19 07:24 Resp 16 11/10/19 07:24 BP 118/76 11/10/19 07:24 Pulse Ox 90 11/10/19 07:24 Constitutional + obese ENMT Mouth: + edentulous Thyromental Distance: < 3.5 Finger Breadths Mallampati Class: II Neck normal visual inspection and trachea midline; neck extension not limited Respiratory normal respiratory effort Auscultation: + diminished lung sounds Cardiovascular Rate/Rhythm: regular rate and regular rhythm Heart Sounds: no murmur Vessels: no carotid bruit Musculoskeletal Spine: normal cervical ROM Neurologic moves all extremities Motor/Sensory: no sensory deficit Psychiatric Orientation: alert and oriented x 3 Testing Laboratory Results 11/07/19 03:51 11/07/19 03:51 PT 10.7 Seconds (9.0-12.0) 11/06/19 17:50 INR 1.0 (0.9-1.1) 11/06/19 17:50 APTT 25.6 Seconds (21.0-31.0) 11/07/19 03:51 Electrocardiogram Date: 11/06/19 Findings: + NSR @ (at 82;LVH;? Infer. and Anterolat. IA age ?) Chest X-Ray Date: 11/06/19 Findings: + cardiomegaly and + pulmonary vascular congestion
[2019-11-10] MEDS ORDERED: ATROPINE SULFATE 0.1 MG/ML 10ML SYR IV PRN (10:42)
[2019-11-10] MEDS ORDERED: ePHEDrine sulfate 50 MG/ML AMP IV PRN (10:42)
[2019-11-10] MEDS ORDERED: PROPOFOL IV EMULSION 10 MG/ML 20 ML VIAL IV ONE (11:06)
[2019-11-10] MEDS ORDERED: LIDOCAINE HCL 2% 2 ML VIAL/AMP(20MG/ML) INFIL ONE (11:06)
--- NOTE | 2019-11-10 11:06 | GI REPORT ---
Patient Name: Gladis Link Procedure Date: 11/10/2019 10:36 AM Date of : 1965 Admit Type: Inpatient Age: 54 Gender: Female Attending MD: Mary Freeman DO Procedure: Upper GI endoscopy Providers: Mary Freeman DO Referring MD: Tano Pantoja Indications: Epigastric abdominal pain Medicines: Propofol per Anesthesia Complications: No immediate complications. Estimated blood loss: None. Estimated Blood Loss: Estimated blood loss: none. Procedure: Pre-Anesthesia Assessment: - Prior to the procedure, a History and Physical was performed, and patient medications, allergies and sensitivities were reviewed. The patient's tolerance of previous anesthesia was reviewed. - The risks and benefits of the procedure and the sedation options and risks were discussed with the patient. All questions were answered and informed consent was obtained. - Patient identification and proposed procedure were verified prior to the procedure by the physician and the nurse. The procedure was verified in the pre-procedure area in the procedure room. - Mental Status Examination: alert and oriented. Airway Examination: normal oropharyngeal airway and neck mobility. Respiratory Examination: clear to auscultation. CV Examination: normal. Abdominal Examination: bowel sounds present, abdomen soft and non-tender, no masses or organomegaly noted. - ASA Grade Assessment: II - A patient with mild systemic disease. - After reviewing the risks and benefits, the patient was deemed in satisfactory condition to undergo the procedure. After obtaining informed consent, the endoscope was passed under direct vision. Throughout the procedure, the patient's blood pressure, pulse, and oxygen saturations were monitored continuously. The Endoscope was introduced through the mouth, and advanced to the jejunum. The upper GI endoscopy was accomplished without difficulty. The patient tolerated the procedure well. Findings: The esophagus was normal. Evidence of a Neel-en-Y gastrojejunostomy was found. The gastrojejunal anastomosis was characterized by healthy appearing mucosa. This was traversed. The [id number] limb was characterized by healthy appearing mucosa. The jejunojejunal anastomosis was characterized by healthy appearing mucosa. The examined jejunum was normal. Impression: - Normal esophagus. - Neel-en-Y gastrojejunostomy with gastrojejunal anastomosis characterized by healthy appearing mucosa. - Normal examined jejunum. - No specimens collected. Recommendation: - Follow an antireflux regimen. - Return patient to hospital [facility] for possible discharge same day. Mary Freeman D.O. Mary Freeman, 11/10/2019 11:05:18 AM This report has been signed electronically. Note Initiated On: 11/10/2019 10:36 AM Number of Addenda: 0 I attest to the content of the Intraoperative Record and orders documented therein, exceptions below {[id number]}
--- NOTE | 2019-11-10 11:08 | Anesthesiology Progress Note ---
Date of Service November 10, 2019 Anesthesia Post Procedure Vital Signs Vital Signs: Temp Pulse Resp BP Pulse Ox 11/10/19 10:33 37.1 C 60 18 118/73 94 11/10/19 07:24 36.7 C 63 16 118/76 90 11/09/19 23:32 36.7 C 71 20 102/63 90 11/09/19 15:06 36.7 C 58 L 20 118/72 94 Pain Intensity Chest: Pain Intensity: 8 Head: Pain Intensity: 9 Abdomen: Pain Intensity: 8 Transfer of Care Handoff Completed per policy Notes Mental Status: alert / awake / arousable Patient Amnestic to Procedure: Yes Nausea / Vomiting: adequately controlled Pain: adequately controlled Airway Patency, RR, SpO2: stable & adequate BP & HR: stable & adequate Hydration State: stable & adequate Anesthetic Complications: no major complications apparent
[2019-11-10 12:29] LABS: Basophils # (auto) 0.03 K/uL (0-0.2); Basophils % (auto) 0.5 %; Eosinophils # (auto) 0.14 K/uL (0-0.5); Eosinophils % (auto) 2.5 %; Hematocrit (blood only) 33.6 % (37-47); Hemoglobin 10.7 g/dL (12.0-16.0); Immature Granulocytes # (auto) 0.01 K/uL (0.00-0.02); Immature Granulocytes % (auto) 0.2 %; Lymphocytes # (auto) 2.03 K/uL (1.2-3.4); Lymphocytes % (auto) 36.2 %; Mean Corpuscular Hgb Conc 31.8 g/dL (32-36); Mean Corpuscular Volume 84.6 fL (80-100); Mean Platelet Volume 9.7 fL (7.4-10.4); Monocytes # (auto) 0.64 K/uL (0.11-0.59); Monocytes % (auto) 11.4 %; Neutrophils # (auto) 2.76 K/uL (1.4-6.5); Neutrophils % (auto) 49.2 %; Platelet Count 223 K/uL (130-400); RDW Coefficient of Variation 14.8 % (11.5-14.5); RDW Standard Deviation 45.8 fL (36.4-46.3); Red Blood Count 3.97 M/uL (4.2-5.4); White Blood Count 5.61 K/uL (4.8-10.8)
[2019-11-10] MEDS: guaiFENesin 600 MG TABCR PO SCH ×2 (12:42→20:27)
[2019-11-10] MEDS: predniSONE 20 MG TAB PO SCH (12:42)
[2019-11-10 12:45] LABS: BUN Creatinine Ratio 13.2 (10-20); Calcium 8.6 mg/dl (8.5-10.1); Creatinine Clr Calc Pharmacy 87.6 ml/min; Est GFR (Non-African American) 77.7; Potassium 4.1 mmol/L (3.5-5.1)
[2019-11-10 12:48] LABS: D Dimer 720 ug/L FEU (0-500)
--- NOTE | 2019-11-10 12:55 | XRay Report ---
XR chest 1V portable HISTORY: 54 years-old Female shortness of breath acute shortness of breath COMPARISON: Chest radiograph and CTA chest 11/06/2019 TECHNIQUE: Portable AP view of the chest FINDINGS: Cardiac silhouette is enlarged. Linear left lung base opacities are new from prior. Pulmonary vascula r congestion with chronic interstitial coarsening. Probable trace pleural effusions. No pneumothorax. Degenerative changes of the shoulders and spine. IMPRESSION: 1. Cardiomegaly with pulmonary vascular congestion and trace pleural effusions. 2. Linear left lung base opacities suggest probable atelectasis. ACT 112: Negative or not required by law. The above report was generated using voice recognition software. It may contain grammatical, syntax o r spelling errors. Electronically signed by: Fransisco Owens M.D. 11/10/2019 12:54 PM
[2019-11-10] MEDS ORDERED: XOPENEX/ATROVENT 1.25mg/0.5MG NEB COMBO NEB SCH (13:00)
[2019-11-10] MEDS: LEVALBUTEROL 1.25MG/0.5ML NEB INH SCH ×2 (13:37→19:31)
[2019-11-10] MEDS: IPRATROPIUM BROMIDE NEB SOLN 0.02% 2.5 ML VIAL INH SCH ×2 (13:37→19:31)
--- NOTE | 2019-11-10 15:24 | Ultrasound Report ---
BILATERAL LOWER EXTREMITY VENOUS DOPPLER HISTORY: Acute pain and swelling of the lower legs leg edema, r/o dvt COMPARISON STUDY: Doppler study 01/05/2018 FINDINGS: There is normal compressibility, flow, and augmentation within the bilateral lower extremit y deep venous systems. IMPRESSION: No DVT within the right or left lower extremity. ACT 112: Negative or not required by law. Electronically signed by: Fransisco Owens M.D. 11/10/2019 3:22 PM
[2019-11-10] MEDS ORDERED: FUROSEMIDE 40 MG in SYRINGE 0 ML IV STA (15:42)
[2019-11-10] MEDS: DIVALPROEX EXTENDED RELEASE 250 MG TABCR PO SCH (20:27)
--- NOTE | 2019-11-10 21:13 | Hospitalist Progress Note ---
Date of Service November 10, 2019 Assessment & Plan (1) Chest pain, precordial: (1) Chest pain, precordial: (2) SOB (shortness of breath): This is a 54-year-old female who has significant PMH of psoriatic arthritis, history of gastric bypass, hypothyroidism, pre-DM, migraine, depression, Szymanski, history of unprovoked PE who presents to ED secondary to substernal chest pain x3 weeks. In ED patient underwent extensive chest pain work-up. Serial troponins negative x3 without ischemic EKG changes. She underwent CTA of chest which was negative for PE or dissection, mild Interstitial prominence throughout both hemithoraces possibly low-grade pneumonitis. Chest x-ray revealed cardiomegaly with suggestion of mild pulmonary vascular congestion. CBC and CMP relatively unremarkable. PRO BNP depakote level WNL. --Chest pain improving Sucralfate added, PRN Maalox --Status post cardiac catheterization: Normal coronary anatomy GI consulted, post EGD, essentially normal finding Shortness of breath, likely viral bronchitis, possible component of volume overload --Chest x-ray: No pneumonia, pulmonary vascular congestion --D-dimer 720, Doppler ultrasound of the legs negative, on Lovenox daily for the past 4 days PE unlikely --Start nebs, prednisone 40 mg p.o. daily Mucinex Wean off oxygen accordingly (3) Psoriatic arthritis: Follows [facility] rheumatology Recently started Cosentyx, on dose 4/5 (4) Pre-diabetes: A1c 10/23 6.3 Counseling (5) Depression: Continue trazodone at bedtime (6) Migraine: No migraine headache today On PRN Imitrex Continue Depakote Depakote level WNL (7) Hypothyroidism: Continue Synthroid Last TSH 05/2019 2.69 (8) History of pulmonary embolism: hx of unprovoked PE, received 6 mon anticoagulation DVT prophylaxis Lovenox Disposition: admit to tele Follow up: PCP Dr. Sutton upon discharge Admission and Anticipated Discharge Date Admission Date: November 09, 2019 Subjective Follow-up for atypical chest pain Status post EGD Seen resting in bed, not in distress but does report dyspnea Has cough productive of white to green sputum, denies chills, denies arthralgias or myalgias Chest pain improving She is on 3 L of nasal cannula Denies leg pain No other symptoms Review of Systems Review of Systems: All systems reviewed & are unremarkable except as noted in HPI & below Physical Exam Physical Exam: General- oriented x 3, not in distress, speaks in sentences with no effort or accessory muscle use Eyes- anicteric Neck- no JVD Lungs-positive faint wheeze at the bases, diminished breath sounds bilateral Heart- normal rate, regular rhythm; no murmurs Abdomen- normal bowel sounds, nondistended, soft, nontender Extremities-trace pretibial edema, no calf tenderness Neuro- alert, oriented x 3; no gross focal neurologic deficits Skin- warm & dry Results & Data ([facility]) Vital Signs (Past 12 Hours) Vital Signs Temp Pulse Resp BP BP Pulse Ox 11/10/19 19:34 75 18 93 11/10/19 15:35 36.4 C L 66 18 126/81 91 11/10/19 13:37 67 18 93 11/10/19 11:32 59 L 18 118/70 92 11/10/19 11:17 57 L 16 112/65 94 11/10/19 11:02 62 16 95/53 L 95 11/10/19 10:33 37.1 C 60 18 118/73 94 Laboratory Results Laboratory Results - last 24 hr 11/10/19 11/10/19 11/10/19 12:01 12:18 12:18 WBC 5.61 RBC 3.97 L Hgb 10.7 L Hct 33.6 L MCV 84.6 MCH 27.0 MCHC 31.8 L RDW Std Deviation 45.8 RDW Coeff of Halley 14.8 H Plt Count 223 MPV 9.7 Immature Gran % (Auto) 0.2 Neut % (Auto) 49.2 Lymph % (Auto) 36.2 [place] % (Auto) 11.4 Eos % (Auto) 2.5 Baso % (Auto) 0.5 Immature Gran # (Auto) 0.01 Neut # (Auto) 2.76 Lymph # (Auto) 2.03 [place] # (Auto) 0.64 H Eos # (Auto) 0.14 Baso # (Auto) 0.03 D-Dimer 720 H* Sodium 141 Potassium 4.1 Chloride 108 H Carbon Dioxide 29 Anion Gap 4.0 BUN 11 Creatinine 0.84 Est Cr Clr Drug Dosing 87.6 Est GFR ( Amer) 90.0 Est GFR (Non-Af Amer) 77.7 BUN/Creatinine Ratio 13.2 Glucose 82 Calcium 8.6
[2019-11-10] MEDS: TRAZODONE HCL 100 MG TAB PO SCH (21:49)
[2019-11-11] MEDS: IPRATROPIUM BROMIDE NEB SOLN 0.02% 2.5 ML VIAL INH SCH ×4 (01:04→19:14)
[2019-11-11] MEDS: LEVALBUTEROL 1.25MG/0.5ML NEB INH SCH ×4 (01:05→19:14)
[2019-11-11] MEDS: LEVOTHYROXINE SODIUM 25 MCG TABLET PO SCH (06:05)
[2019-11-11 06:22] LABS: Basophils # (auto) 0.01 K/uL (0-0.2); Basophils % (auto) 0.1 %; Eosinophils # (auto) 0.05 K/uL (0-0.5); Eosinophils % (auto) 0.7 %; Hematocrit (blood only) 33.5 % (37-47); Hemoglobin 10.7 g/dL (12.0-16.0); Immature Granulocytes # (auto) 0.01 K/uL (0.00-0.02); Immature Granulocytes % (auto) 0.1 %; Lymphocytes # (auto) 1.79 K/uL (1.2-3.4); Lymphocytes % (auto) 26.3 %; Mean Corpuscular Hemoglobin 26.9 pg (25-34); Mean Corpuscular Hgb Conc 31.9 g/dL (32-36); Mean Corpuscular Volume 84.2 fL (80-100); Monocytes # (auto) 0.86 K/uL (0.11-0.59); Monocytes % (auto) 12.6 %; Neutrophils # (auto) 4.08 K/uL (1.4-6.5); Neutrophils % (auto) 60.2 %; Platelet Count 254 K/uL (130-400); RDW Coefficient of Variation 14.5 % (11.5-14.5); RDW Standard Deviation 44.8 fL (36.4-46.3); Red Blood Count 3.98 M/uL (4.2-5.4)
[2019-11-11] MEDS: PROMETHAZINE HCL 12.5 MG in SODIUM CHLORIDE 0.9% 50 ML IV PRN ×3 (06:22→22:56)
[2019-11-11 06:51] LABS: BUN Creatinine Ratio 17.4 (10-20); Calcium 8.3 mg/dl (8.5-10.1); Creatinine Clr Calc Pharmacy 94.3 ml/min; Est GFR (African American) 98.5; Potassium 3.6 mmol/L (3.5-5.1)
--- NOTE | 2019-11-11 08:02 | Anesthesiology Progress Note ---
Date of Service November 11, 2019 Anesthesia Post Procedure Vital Signs Vital Signs: Temp Pulse Resp BP BP Pulse Ox 11/11/19 07:17 36.5 C 53 L 20 123/81 94 11/11/19 07:16 54 L 18 94 11/11/19 01:06 77 18 93 11/10/19 23:29 36.7 C 69 18 102/62 92 11/10/19 19:34 75 18 93 11/10/19 15:35 36.4 C L 66 18 126/81 91 11/10/19 13:37 67 18 93 11/10/19 11:32 59 L 18 118/70 92 11/10/19 11:17 57 L 16 112/65 94 11/10/19 11:02 62 16 95/53 L 95 11/10/19 10:33 37.1 C 60 18 118/73 94 Pain Intensity Chest: Pain Intensity: 8 Head: Pain Intensity: 9 Abdomen: Pain Intensity: 8 Notes Mental Status: alert / awake / arousable and participated in evaluation Patient Amnestic to Procedure: Yes Nausea / Vomiting: adequately controlled Pain: adequately controlled Airway Patency, RR, SpO2: stable & adequate BP & HR: stable & adequate Hydration State: stable & adequate Anesthetic Complications: no major complications apparent and Pt Satisfied with anesthetic care
[2019-11-11] MEDS: SUCRALFATE 1 GM TAB PO SCH ×3 (09:14→16:46)
[2019-11-11] MEDS: PROPRANOLOL HCL 20 MG TAB PO SCH (09:15)
[2019-11-11] MEDS: DULOXETINE HCL 30 MG CAP PO SCH (09:15)
[2019-11-11] MEDS: predniSONE 20 MG TAB PO SCH (09:16)
[2019-11-11] MEDS: guaiFENesin 600 MG TABCR PO SCH ×2 (09:16→21:03)
[2019-11-11] MEDS: PANTOprazole 40 MG TAB PO SCH ×2 (09:16→21:03)
[2019-11-11] MEDS: DOCUSATE SODIUM/SENNA 50/8.6MG TAB PO SCH (09:17)
[2019-11-11] MEDS: TRAMADOL HCL 50 MG TABLET PO PRN ×3 (09:17→22:56)
[2019-11-11] MEDS: ENOXAPARIN INJ 40 MG/0.4 ML SYR SQ SCH (09:18)
[2019-11-11] MEDS ORDERED: POTASSIUM CHLORIDE 20 MEQ TABCR PO STA (15:37)
[2019-11-11] MEDS ORDERED: FUROSEMIDE 40 MG in SYRINGE 0 ML IV STA (15:43)
--- NOTE | 2019-11-11 17:42 | Hospitalist Progress Note ---
Date of Service November 11, 2019 Assessment & Plan (1) Chest pain, precordial: (1) Chest pain, precordial: (2) SOB (shortness of breath): This is a 54-year-old female who has significant PMH of psoriatic arthritis, history of gastric bypass, hypothyroidism, pre-DM, migraine, depression, Szymanski, history of unprovoked PE who presents to ED secondary to substernal chest pain x3 weeks. In ED patient underwent extensive chest pain work-up. Serial troponins negative x3 without ischemic EKG changes. She underwent CTA of chest which was negative for PE or dissection, mild Interstitial prominence throughout both hemithoraces possibly low-grade pneumonitis. Chest x-ray revealed cardiomegaly with suggestion of mild pulmonary vascular congestion. CBC and CMP relatively unremarkable. PRO BNP depakote level WNL. --Chest pain improving PRN Maalox --Status post cardiac catheterization: Normal coronary anatomy GI consulted, post EGD, essentially normal findings Shortness of breath, likely viral bronchitis, possible component of volume overload --Chest x-ray: No pneumonia, pulmonary vascular congestion --D-dimer 720, Doppler ultrasound of the legs negative, on Lovenox daily for the past 4 days PE unlikely --Improving gradually Wean off oxygen accordingly Additional Lasix 40 mg IV today with potassium p.o. Continue nebs, prednisone 40 mg p.o. daily, Mucinex Monitor closely (3) Psoriatic arthritis: Follows [facility] rheumatology Recently started Cosentyx, on dose 4/5 (4) Pre-diabetes: A1c 10/23 6.3 Counseling (5) Depression: Continue trazodone at bedtime (6) Migraine: No migraine headache today On PRN Imitrex Continue Depakote Depakote level WNL (7) Hypothyroidism: Continue Synthroid Last TSH 05/2019 2.69 (8) History of pulmonary embolism: hx of unprovoked PE, received 6 mon anticoagulation DVT prophylaxis Lovenox Disposition: Anticipate discharge to home when medically stable Follow up: PCP Dr. Sutton upon discharge Admission and Anticipated Discharge Date Admission Date: November 09, 2019 Subjective Follow-up for chest pain Seen sitting up in bed, not in distress States breathing is improving today Less cough, no sputum Minimal epigastric pain Denies other symptoms Review of Systems Review of Systems: All systems reviewed & are unremarkable except as noted in HPI & below Physical Exam Physical Exam: General- oriented x 3, not in distress, speaks in sentences with no effort or accessory muscle use Eyes- anicteric Neck- no JVD Lungs- Mild rales at the bases, no wheezing, good air entry bilaterally Heart- normal rate, regular rhythm; no murmurs Abdomen- normal bowel sounds, nondistended, soft, nontender Extremities- Mild lower leg edema left greater than right, no calf tenderness Neuro- alert, oriented x 3; no gross focal neurologic deficits Skin- warm & dry Results & Data ([facility]) Vital Signs (Past 12 Hours) Vital Signs Temp Pulse Resp BP BP Pulse Ox 11/11/19 15:07 36.4 C L 75 20 132/79 93 11/11/19 13:50 88 18 93 11/11/19 08:00 90 11/11/19 07:17 36.5 C 53 L 20 123/81 94 11/11/19 07:16 54 L 18 94 Laboratory Results Laboratory Results - last 24 hr 11/11/19 11/11/19 11/11/19 05:58 05:58 05:58 WBC 6.80 RBC 3.98 L Hgb 10.7 L Hct 33.5 L MCV 84.2 MCH 26.9 MCHC 31.9 L RDW Std Deviation 44.8 RDW Coeff of Halley 14.5 Plt Count 254 MPV 10.0 Immature Gran % (Auto) 0.1 Neut % (Auto) 60.2 Lymph % (Auto) 26.3 Mcmullen % (Auto) 12.6 Eos % (Auto) 0.7 Baso % (Auto) 0.1 Immature Gran # (Auto) 0.01 Neut # (Auto) 4.08 Lymph # (Auto) 1.79 Mcmullen # (Auto) 0.86 H Eos # (Auto) 0.05 Baso # (Auto) 0.01 Sodium 140 Potassium 3.6 Chloride 106 Carbon Dioxide 32 Anion Gap 2.0 L BUN 14 Creatinine 0.78 Est Cr Clr Drug Dosing 94.3 Est GFR ( Amer) 98.5 Est GFR (Non-Af Amer) 85.0 BUN/Creatinine Ratio 17.4 Glucose 111 H Calcium 8.3 L NT-Pro-B Natriuret Pep Procalcitonin < 0.05 11/11/19 05:58 WBC RBC Hgb Hct MCV MCH MCHC RDW Std Deviation RDW Coeff of Halley Plt Count MPV Immature Gran % (Auto) Neut % (Auto) Lymph % (Auto) Mcmullen % (Auto) Eos % (Auto) Baso % (Auto) Immature Gran # (Auto) Neut # (Auto) Lymph # (Auto) Mcmullen # (Auto) Eos # (Auto) Baso # (Auto) Sodium Potassium Chloride Carbon Dioxide Anion Gap BUN Creatinine Est Cr Clr Drug Dosing Est GFR ( Amer) Est GFR (Non-Af Amer) BUN/Creatinine Ratio Glucose Calcium NT-Pro-B Natriuret Pep 339 Procalcitonin
[2019-11-11] MEDS: TRAZODONE HCL 100 MG TAB PO SCH ×2 (21:04→22:56)
[2019-11-11] MEDS: DIVALPROEX EXTENDED RELEASE 250 MG TABCR PO SCH (21:04)
[2019-11-12] MEDS: LEVALBUTEROL 1.25MG/0.5ML NEB INH SCH ×2 (01:43→07:21)
[2019-11-12] MEDS: IPRATROPIUM BROMIDE NEB SOLN 0.02% 2.5 ML VIAL INH SCH ×2 (01:43→07:21)
[2019-11-12] MEDS ORDERED: ZOLPIDEM TARTRATE 5 MG TAB PO STA (02:11)
[2019-11-12 06:21] LABS: Basophils # (auto) 0.03 K/uL (0-0.2); Basophils % (auto) 0.4 %; Eosinophils # (auto) 0.09 K/uL (0-0.5); Eosinophils % (auto) 1.1 %; Hematocrit (blood only) 35.3 % (37-47); Hemoglobin 11.3 g/dL (12.0-16.0); Immature Granulocytes # (auto) 0.01 K/uL (0.00-0.02); Immature Granulocytes % (auto) 0.1 %; Lymphocytes # (auto) 3.29 K/uL (1.2-3.4); Lymphocytes % (auto) 39.2 %; Mean Corpuscular Hemoglobin 26.9 pg (25-34); Mean Platelet Volume 9.5 fL (7.4-10.4); Monocytes # (auto) 0.66 K/uL (0.11-0.59); Monocytes % (auto) 7.9 %; Neutrophils # (auto) 4.31 K/uL (1.4-6.5); Neutrophils % (auto) 51.3 %; Platelet Count 281 K/uL (130-400); RDW Coefficient of Variation 14.8 % (11.5-14.5); RDW Standard Deviation 45.3 fL (36.4-46.3); White Blood Count 8.39 K/uL (4.8-10.8)
[2019-11-12] MEDS: LEVOTHYROXINE SODIUM 25 MCG TABLET PO SCH (06:23)
[2019-11-12] MEDS: TRAMADOL HCL 50 MG TABLET PO PRN (06:38)
[2019-11-12] MEDS: PROMETHAZINE HCL 12.5 MG in SODIUM CHLORIDE 0.9% 50 ML IV PRN (06:38)
[2019-11-12 06:53] LABS: Est GFR (African American) 87.5; Potassium 3.9 mmol/L (3.5-5.1)
[2019-11-12 06:54] LABS: BUN Creatinine Ratio 18.9 (10-20); Calcium 8.8 mg/dl (8.5-10.1); Creatinine Clr Calc Pharmacy 73.2 ml/min; Est GFR (Non-African American) 75.5
[2019-11-12] MEDS ORDERED: LEVALBUTEROL 1.25MG/0.5ML NEB INH PRN (08:09)
[2019-11-12] MEDS ORDERED: IPRATROPIUM BROMIDE NEB SOLN 0.02% 2.5 ML VIAL INH PRN (08:09)
[2019-11-12] MEDS: guaiFENesin 600 MG TABCR PO SCH (08:24)
[2019-11-12] MEDS: PANTOprazole 40 MG TAB PO SCH (08:24)
[2019-11-12] MEDS: predniSONE 20 MG TAB PO SCH (08:25)
[2019-11-12] MEDS: PROPRANOLOL HCL 20 MG TAB PO SCH (08:25)
[2019-11-12] MEDS: DOCUSATE SODIUM/SENNA 50/8.6MG TAB PO SCH (08:26)
[2019-11-12] MEDS: ENOXAPARIN INJ 40 MG/0.4 ML SYR SQ SCH (08:26)
--- NOTE | 2019-11-12 08:56 | Hospitalist Progress Note ---
Date of Service November 12, 2019 Assessment & Plan (1) Chest pain, precordial: (1) Chest pain, precordial: (2) SOB (shortness of breath): This is a 54-year-old female who has significant PMH of psoriatic arthritis, history of gastric bypass, hypothyroidism, pre-DM, migraine, depression, Szymanski, history of unprovoked PE who presents to ED secondary to substernal chest pain x3 weeks. In ED patient underwent extensive chest pain work-up. Serial troponins negative x3 without ischemic EKG changes. She underwent CTA of chest which was negative for PE or dissection, mild Interstitial prominence throughout both hemithoraces possibly low-grade pneumonitis. Chest x-ray revealed cardiomegaly with suggestion of mild pulmonary vascular congestion. CBC and CMP relatively unremarkable. PRO BNP depakote level WNL. Shortness of breath, likely viral bronchitis, possible component of volume ove rload -Chest x-ray: No pneumonia, pulmonary vascular congestion -Status post cardiac catheterization: Normal coronary anatomy -GI consulted as per cooker soda recommendation, GI consulted, post EGD, essentially normal findings. patient had hypoxia after EGD. This is resolved. breathing on room air -D-dimer 720, Doppler ultrasound of the legs negative on 11/10/2019 and patient was on Lovenox daily while inpatient. pulmonary embolism unlikely -shortness of of breath has resolved after Lasix, nebulizer, prednisone, and Mucinex (3) Psoriatic arthritis: Follows [facility] rheumatology Recently on Cosentyx (4) Pre-diabetes: Pre-diabetes with HbA1c as 6.3 on 10/23/2019, outpatient management as per primary care doctor (5) Depression: Continue trazodone at bedtime (6) Migraine: No migraine headache today On PRN Imitrex Continue Depakote Depakote level WNL (7) Hypothyroidism: Continue Synthroid Last TSH 05/2019 2.69 (8) History of pulmonary embolism: hx of unprovoked PE, completed 6 month of anticoagulation as outpatient DVT prophylaxis while inpatient: Lovenox upcoming appointments 11/13/2019 11:30 AM Provider [facility] Department Radiology [facility] 11/17/2019 11:20 AM Provider Richi Sutton DO Department General Internal Medicine [facility] Admission and Anticipated Discharge Date Admission Date: November 09, 2019 Subjective Patient appears somewhat anxious but not distressed. She reports that she does have midsternal chest discomforts. She has been counseled that hospital workup to date already ruled out myocardial infraction or pneumonia or esophageal/stomach ulcers or deep vein thrombosis. She agrees to be discharge and follow up with outpatient primary care doctor. Patient breathing on room air. no shortness of breath. no abdomen pain. no vomiting Review of Systems Review of Systems: All systems reviewed & are unremarkable except as noted in HPI & below Physical Exam Eyes: PERRL, conjunctivae normal, anicteric sclerae EOM intact bilaterally ENMT: external ear and nose normal, oropharynx normal Neck: normal visual inspection Respiratory: normal respiratory effort, lungs clear to auscultation Cardiovascular: Rate/Rhythm: regular rate and regular rhythm Gastrointestinal (Abdomen): normal bowel sounds, soft, nontender, no hepatosplenomegaly Musculoskeletal: Head/Neck/Chest: normocephalic and head atraumatic Neurologic: PERRL, EOMI, accommodation nl, no face palsy, no dysarthria CN's II-XI intact bilaterally Psychiatric: A+Ox3, euthymic affect Results & Data ([facility]) Vital Signs (Past 12 Hours) Vital Signs Temp Pulse Resp BP BP Pulse Ox 11/12/19 07:23 36.5 C 58 L 20 146/90 H 95 11/12/19 07:21 66 20 93 11/12/19 01:45 83 18 91 11/11/19 23:44 36.7 C 69 18 96/57 L 91
[2019-11-12] MEDS: DULOXETINE HCL 30 MG CAP PO SCH (08:58)
--- NOTE | 2019-11-12 09:02 | Discharge Summary ---
Date of Service November 12, 2019 Admission HPI Per Admitting Provider This is a 54-year-old female who has significant PMH of psoriatic arthritis, history of gastric bypass, hypothyroidism, pre-DM, migraine, depression, Szymanski, history of unprovoked PE who presents to ED secondary to substernal chest pain x3 weeks. Patient has been experiencing substernal chest pain for the past 3 weeks. It has been off and on, waxing and waning. She describes it as heaviness in her chest with radiation to bilateral shoulders and heaviness in her neck. It can occur at rest as well as with exertion. She further elicits shortness of breath with exertion and now at rest, including a flight of stairs. Made worse with deep breathing and leaning forward, nothing improves symptoms. She prompted to seek ED evaluation today whenever she woke up with significant severe substernal chest pain 04/19. Chest pain was constant throughout the day becoming worse. She further elicits increased shortness of breath. She did develop URI symptoms yesterday including rhinorrhea and mild dry cough. She den ies any fever but expresses chills. She denies any lightheadedness, dizziness, syncope, palpitations, hemoptysis, nausea, vomiting, abdominal pain, diarrhea, change in bowel or urinary habits. Her baseline weight is approximately 212 and she is up to 225 over the past 4 weeks. In the past 1 week she has lost 4 pounds secondary to dietary changes. She denies any significant lower extremity edema. She does complain of waking up in the middle of the night feeling short of breath but she does sleep on her belly. She expressed symptoms to PCP approximately 3 weeks ago and she was scheduled for a nuclear stress test which was supposed to be tomorrow but got put back till November 12. She does elicit approximately 3 years ago she was diagnosed with PE. She was placed on anticoagulation for 6 months. She was worked up for cause of PE but per patient found to be unprovoked. Most recent medication changes include the addition of Cosentyx in which she is on a weekly injection currently on dose 4 out of 5. In ED patient underwent extensive chest pain work-up. Serial troponins negative x2 without ischemic EKG changes. She underwent CTA of chest which was negative for PE or dissection, mild Interstitial prominence throughout both hemithoraces possibly low-grade pneumonitis. Chest x-ray revealed cardiomegaly with suggestion of mild pulmonary vascular congestion. CBC and CMP relatively unremarkable. Admission Exam Per Admitting Provider Constitutional: WD/WN, ill appearing, F, vitals as above, NAD, sitting up in bed, pleasant, conversing easily Head: Normocephalic, Atraumatic Eyes: PERRL, conjunctivae normal, anicteric sclerae ENMT: external ear and nose normal, oropharynx normal Neck: trachea midline, no thyromegaly normal visual inspection Respiratory: normal respiratory effort, lungs clear to auscultation, no wheeze, rales, rhonchi. Normal insp/exp effort, no accessory muscle use Cardiovascular: RRR, no murmur, no edema Vessels: no JVD or carotid bruit Chest: normal inspection of chest, pain not reproducible Abdomen: normal bowel sounds, soft, nontender, no hepatosplenomegaly Musculoskeletal: no cyanosis or clubbing, extremities motor strength 5/5 Skin: no rashes, warm and dry normal turgor Neurologic: PERRL, EOMI, accommodation nl, no face palsy, no dysarthria CN's II-XI intact bilaterally and moves all extremities Psychiatric: A+Ox3, euthymic affect Lymphatic: no cervical or axillary lymphadenopathy : deferred Principal Diagnosis Pre-cordial Chest Pain Psoriatic arthritis Pre-diabetes Shortness of breath Discharge Exam Eyes PERRL, conjunctivae normal, anicteric sclerae EOM intact bilaterally ENMT external ear and nose normal, oropharynx normal Neck normal visual inspection Respiratory normal respiratory effort, lungs clear to auscultation Cardiovascular Rate/Rhythm: regular rate and regular rhythm Gastrointestinal (Abdomen) normal bowel sounds, soft, nontender, no hepatosplenomegaly Musculoskeletal Head/Neck/Chest: normocephalic and head atraumatic Neurologic PERRL, EOMI, accommodation nl, no face palsy, no dysarthria CN's II-XI intact bilaterally Psychiatric A+Ox3, euthymic affect Discharge Data Allergies Allergy/AdvReac Type Severity Reaction Status Date / Time oxycodone Allergy Intermediate HIVES Verified 11/06/19 18:49 piperacillin Allergy Intermediate Pruritus Verified 11/06/19 18:49 tazobactam Allergy Intermediate Pruritus Verified 11/06/19 18:49 ketorolac Allergy Mild Itching Verified 11/06/19 18:49 vancomycin AdvReac Unknown deathly ill Verified 11/06/19 18:49 Consultations 11/06/19 19:23 ED Decision to Admit Stat 11/06/19 22:49 Consult Cardiology Routine 11/07/19 11:36 Consult Gastroenterology Routine Procedures Performed Operation Date: 11/07/19 09:30 Actual Procedures p Cath, Left with Cors and Vent - Conrado Read MD s Cineradiography w/Routine Exam - Conrado Read MD Operation Date: 11/10/19 16:30 Actual Procedures p Esophagogastroduodenoscopy - Mary Freeman Ordered Studies 11/06/19 18:33 CT angio chest PE protocol Stat 11/07/19 09:05 CL Cath Imgs for PACS use only Routine 11/10/19 12:49 US venous doppler LE Urgent Hospital Course (1) Chest pain, precordial: (1) Chest pain, precordial: (2) SOB (shortness of breath): This is a 54-year-old female who has significant PMH of psoriatic arthritis, history of gastric bypass, hypothyroidism, pre-DM, migraine, depression, Szymanski, history of unprovoked PE who presents to ED secondary to substernal chest pain x3 weeks. In ED patient underwent extensive chest pain work-up. Serial troponins negative x3 without ischemic EKG changes. She underwent CTA of chest which was negative for PE or dissection, mild Interstitial prominence throughout both hemithoraces possibly low-grade pneumoni tis. Chest x-ray revealed cardiomegaly with suggestion of mild pulmonary vascular congestion. CBC and CMP relatively unremarkable. PRO BNP depakote level WNL. Shortness of breath, likely viral bronchitis, possible component of volume overload -Chest x-ray: No pneumonia, pulmonary vascular congestion -Status post cardiac catheterization: Normal coronary anatomy -GI consulted as per director of labor relations recommendation, GI consulted, post EGD, essentially normal findings. patient had hypoxia after EGD. This is resolved. breathing on room air -D-dimer 720, Doppler ultrasound of the legs negative on 11/10/2019 and patient was on Lovenox daily while inpatient. pulmonary embolism unlikely -shortness of of breath has resolved after Lasix, nebulizer, prednisone, and Mucinex (3) Psoriatic arthritis: Follows [facility] rheumatology Recently on Cosentyx (4) Pre-diabetes: Pre-diabetes with HbA1c as 6.3 on 10/23/2019, outpatient management as per primary care doctor (5) Depression: Continue trazodone at bedtime (6) Migraine: No migraine headache today On PRN Imitrex Continue Depakote Depakote level WNL (7) Hypothyroidism: Continue Synthroid Last TSH 05/2019 2.69 (8) History of pulmonary embolism: hx of unprovoked PE, completed 6 month of anticoagulation as outpatient DVT prophylaxis while inpatient: Lovenox upcoming appointments 11/13/2019 11:30 AM Provider [address] Department Radiology [address] 11/17/2019 11:20 AM Provider Richi Sutton DO Department General Internal Medicine [facility] Total Time Total Time Spent Total Time Spent (In Minutes): 40 minutes Total Time Includes: Examination of the Patient, Discharge Planning, Medication Reconciliation and Communication With Other Providers Discharge Plan Discharge Items Patient Disposition: Home - Self-Care Reason For Visit: CP Discharge Diagnosis: Pre-cordial Chest Pain Psoriatic arthritis Pre-diabetes Shortness of breath Condition on Discharge: Good Activity: Per Instructions section Non-emergency contact: Primary Care Provider Call non-emergency contact if: you have any medication questions Follow-up/Referrals: Richi Sutton DO [Primary Care Provider] - 11/17/19 11:05 am (You have an appt with your PCP SundayNovember 16 at 1105. Please arrive 15 minutes prior to appt time. If this appt does not fit your schedule please call [phone] to reschedule. ) Diet: Carb Consistent or DM2 Addtl Attending Provider Instructions: This is a 54-year-old female who has significant PMH of psoriatic arthritis, history of gastric bypass, hypothyroidism, pre-DM, migraine, depression, Szymanski, history of unprovoked PE who presents to ED secondary to substernal chest pain x3 weeks. In ED patient underwent extensive chest pain work-up. Serial troponins negative x3 without ischemic EKG changes. She underwent CTA of chest which was negative for PE or dissection, mild Interstitial prominence throughout both hemithoraces possibly low-grade pneumonitis. Chest x-ray revealed cardiomegaly with suggestion of mild pulmonary vascular congestion. pro BNP within normal limits Status post cardiac catheterization: Normal coronary anatomy GI consulted, post EGD, essentially normal findings. patient had hypoxia after EGD. This is resolved. breathing on room air Doppler ultrasound of the legs negative, new Pulmonary embolism unlikely Pre-diabetes with HbA1c as 6.3 on 10/23/2019, outpatient management as per primary care doctor upcoming appointments 11/13/2019 11:30 AM Provider [facility] Department Radiology [address] 11/17/2019 11:20 AM Provider Richi Sutton DO Department General Internal Medicine [facility] Pending Studies at Discharge: No Stand-Alone Forms: My [facility], Smoking Cessation Medications and DC Order Prescriptions: Continued sumatriptan succinate [Imitrex] 50 mg Tablet 50 mg PO DIRECTED PRN (Reason: Migraine Headache) RF: 0 levothyroxine [Synthroid] 25 mcg Tablet 25 mcg PO QAM RF: 0 pantoprazole [Protonix] 40 mg Tablet,Delayed Release (Dr/Ec) 40 mg PO BID RF: 0 promethazine 25 mg Tablet 25 mg PO Q8H PRN (Reason: Nausea) RF: 0 ergocalciferol (vitamin D2) [Vitamin D2] 50,000 unit Capsule 50,000 units PO 2XWK RF: 0 albuterol sulfate [Ventolin HFA] 90 mcg/actuation Hfa Aerosol Inhaler 2 puff INHALATION QID PRN (Reason: Shortness Of Breath) RF: 0 magnesium oxide 400 mg magnesium Tablet 400 mg PO DAILY RF: 0 lorazepam [Ativan] 0.5 mg Tablet 0.5 mg PO DAILY PRN (Reason: Anxiety) RF: 0 duloxetine 30 mg Capsule,Delayed Release(Dr/Ec) 30 mg PO DAILY RF: 0 ondansetron 8 mg Tablet,Disintegrating 8 mg PO Q8H PRN (Reason: Nausea) RF: 0 cyanocobalamin (vitamin B-12) 1,000 mcg/mL Solution 1,000 mcg IM .Q4 WEEKS RF: 0 trazodone 300 mg tablet 300 mg PO HS RF: 0 propranolol 20 mg tablet 60 mg PO DAILY RF: 0 Cosentyx 150 mg/mL Syringe 150 mg SUBCUT WK RF: 0 divalproex [Depakote ER] 250 mg Tablet Extended Release 24 Hr 750 mg PO HS RF: 0 Discharge Orders: Discharge Order (Routine); Ordered 11/12/19 Ordered By: Terrence Rivera Admission Data Admit Date/Time: 11/09/19 19:16 Attending Provider: Terrence Rivera Admit Provider: Donn Hartley Primary Care Provider: Richi Sutton Other Providers: Donn Hartley ; Dhruv Muniz ; Mary Freeman
--- NOTE | 2019-11-17 06:21 | Coding Query ---
CODING QUERY To promote full compliance with coding requirements relating to patient care, provider participation is requested in all cases of inpatient coder uncertainty. Please assist us with the question(s) below: Coding Question: Epigastric pain was documented in some of the PN but didn't make it to the Discharge Summary, farzaneh clarify below if the patient had epigastric pain or Precordial pain or both as it effects payment. Thank you so much for your help with this! Have a great day! ( ) Epigastric Pain, POA ( x) Precordial Pain, POA ( ) BOTH Epigastric and Precordial pain, POA ( ) Other, explain Thank you! Cari Davies Principal Diagnosis: "that condition established after study, to be chiefly responsible for occasioning the admission of the patient to the hospital for care." Co-Existing Principal Diagnosis: "when two or more diagnoses equally meet the criteria for principal diagnosis as determined by the circumstances of admission, diagnostic work up, and/or therapy provided, and the Alphabetic Index, Tabular List, or another coding guideline does not provide sequencing direction, any one of the diagnoses may be sequenced first." "When the physician has documented what appears to be a current diagnosis in the body of the record, but has not included the diagnosis in the final diagnostic statement, the physician should be asked whether the diagnosis should be added." (Source Coding [facility] 2 QTR90. p3-4) JULIANA
--- NOTE | 2020-02-17 10:32 | Cardiac Catheterization ---
ACC Data: Podiatrist Orthopedic Cardiac Status Clinical evaluation leading to the procedure Diagnostic Physicians Name: Conrado Read MD Closure Device Recommendations: Medical Therapy and/or Counseling Cardiac Cath Procedure Full Procedure Date November 07, 2019 Pre-Procedure Diagnosis Pre-Procedure Diagnosis: Angina AUC Score AUC Score: 9 Post-Procedure Diagnosis Post-Procedure Diagnosis: Normal Coronary Arteries Procedure(s) Performed Procedure(s) Performed: Coronary Angiography Retail Product Advisor Conrado Read MD Estimated Blood Loss Estimated Blood Loss: None Hemodynamics Rest Ao:: 122/72 mmHg Final Ao: 120/70 LV: Not done Recommendations Recommendations: Medical Therapy and/or Counseling I attest to the content of the Intraoperative Record and any orders documented therein. Any exceptions are noted below. PG Care Time/CCT Total # of Minutes Spent Total Time Spent with Patient: Total time spent is greater than 50% in coordination of care (as documented) at patient's floor/unit and/or counseling patient:
--- NOTE | 2020-03-03 13:46 | Cardiac Catheterization ---
ACC Data: [address] Cardiac Status Clinical evaluation leading to the procedure CAD Presenation: Sx unlikely to be ischemic Diagnostic Physicians Name: Conrado Read MD Closure Device Recommendations: Medical Therapy and/or Counseling Cardiac Cath Procedure Full Procedure Date Nov 06, 2019 Pre-Procedure Diagnosis Pre-Procedure Diagnosis: Angina AUC Score AUC Score: 9 Post-Procedure Diagnosis Post-Procedure Diagnosis: Mild CAD Procedure(s) Performed Procedure(s) Performed: Coronary Angiography Railroad Accountant oCnrado Read MD Estimated Blood Loss Estimated Blood Loss: None Summary of Findings Patent coronary vessels with minimal angiographic atherosclerosis. Plan to assess for noncardiac causes of her symptoms. Hemodynamics Rest Ao:: 112/72 Final Ao: 110/68 LV: not performed Recommendations Recommendations: Medical Therapy and/or Counseling Radiation Exposure (mGy) 85 Contrast (mls) 85 I attest to the content of the Intraoperative Record and any orders documented therein. Any exceptions are noted below. PG Care Time/CCT Total # of Minutes Spent Total Time Spent with Patient: Total time spent is greater than 50% in coordination of care (as documented) at patient's floor/unit and/or counseling patient:
--- NOTE | 2020-03-09 13:11 | Coding Query ---
A supporting diagnosis is required for the test/procedure performed on this patient in order for us to be reimbursed by the patient's insurance. Please provide a supporting diagnosis for the following test/procedure listed below next to the test name along with your signature. *If there is no additional diagnosis for this patient that would support the following test/procedure please document that below next to the test/procedure. Test(s)/Procedure(s) that require a supporting diagnosis: * [id number] VENOUS DOPPLER LOWER EXT DIAGNOSIS: Leg Edema, Pain, r/o DVT DATE OF SERVICE: 11/10/19 Provider Signature: Tano Stallworth MD Date: ___03/17/20____ Thank you Meek Montoya [facility] Information Management Once completed, please kindly fax back to [phone] For questions please call [phone] JULIANA
== END 2019-11-12 13:15 | disposition home or self-care (01) | DRG 392 ==
LOC: 2E 17:32 → ED 17:32 → 2E 22:13 → 4W 11-08 10:28 → SUATTDRO 11-09 19:16

== ENCOUNTER 2020-04-02 14:53 | Observation (INO) ==
[2020-04-02] MEDS ORDERED: ONDANSETRON INJ 2 MG/ML 2 ML VIAL IV STA (15:50)
[2020-04-02] MEDS ORDERED: DiphenhydrAMINE HCL 50 MG/ML VIAL IV STA (15:50)
[2020-04-02] MEDS ORDERED: ACETAMINOPHEN 1,000 MG/100 ML VIAL IV STA (15:50)
[2020-04-02] MEDS ORDERED: SODIUM CHLORIDE 0.9% 1000ML 1,000 ML IV ONE (15:50)
--- NOTE | 2020-04-02 15:59 | Emergency Department Note ---
Impression & Plan Precordial chest pain, Left sided abdominal pain, Pneumonia, Failure of outpatient treatment, Elevated lactic acid level ED Provider Note NAME: VENTURA BRITTON AGE: 55 SEX: F : 1965 ARRIVES VIA: Walk-In INFORMANT: [Patient][notes] ED PROVIDER(S): [Zander Naranjo MD] CHIEF COMPLAINT: Abdominal pain HISTORY OF PRESENT ILLNESS: The patient is a 55-year-old female who presents with about 4 days of abdominal pain. The patient was seen by this ER about 2 days ago for similar symptoms. Work-up revealed a vaginal yeast infection. Laboratory testing and CT imaging did not suggest any cause for the abdominal discomfort. The patient states that the pain is more severe today. It is on the left side of the abdomen and a 10/10. It is constant. She has had some nausea without vomiting. She today for the first time, had some chills. She has had some bloo d in the urine. Patient states the pain does radiate into her lower back bilaterally. In addition, she has now developed some anterior chest pain. The chest pain began today while she was sitting in the car. It began at rest. She has had the chest pain for a few hours. She also has a headache although, she states she has a history of migraines. Her most severe pain is actually in the abdomen. The chest pain is moderate in severity, the headache is moderate in severity. The patient has had a gastric bypass. She states that today's pain does not really feel like pain she has experienced before. She has not had diarrhea. There has been no cough or congestion. She does feel mildly short of breath with all her discomfort. No trauma to the abdomen, there has been no rash. REVIEW OF SYSTEMS: See HPI for pertinent positives and negatives. A total of ten systems were reviewed and were otherwise negative. PMHx/PSHx: See Below SOCIAL HISTORY: See Below. PHYSICAL EXAM: GENERAL: Patient is in moderate distress from pain HEENT: No acute trauma, normocephalic atraumatic, mucous membranes moist, no nasal congestion, no scleral icterus. NECK: No stridor, no adenopathy, no meningismus, trachea is midline. LUNGS: Clear to auscultation bilaterally, no wheeze, no rhonchi, breath sounds equal. HEART: Without murmurs gallops or rubs, regular rate and rhythm. Chest: Tender to the anterior chest wall. ABDOMEN: Soft, moderately tender along the entire left side of the abdomen, bowel sounds positive, no hernias, no peritonitis. EXTREMITIES: No cyanosis or edema, full range of motion of all the joints without pain or difficulty, no signs for acute trauma. NEUROLOGIC: Oriented x 3, no acute motor or sensory deficits, no focal weakness. SKIN: No rash, no jaundice, no diaphoresis. DIFFERENTIAL DIAGNOSIS: Appendicitis, ovarian cyst, ovarian torsion, PID, infections, diverticulitis, UTI, obstruction, urinary retention, mesenteric ischemia, aortic pathology, inflammatory bowel disease, renal colic, PUD, pancreatitis, biliary pathology, hernia, volvulus, constipation, cardiac ischemia, IN, as well as other pathologies. EMERGENCY DEPARTMENT COURSE/PROCEDURES: ECG: Indication was chest pain. The ECG shows a normal sinus rhythm with a rate of 68. LVH is present. There is evidence for old anterior lateral inf arct. No acute ST elevation. No PVCs. A possible old inferior infarct was noted. QTC was 399. Compared to an ECG from March,, the findings of old anterior lateral infarct are new. Continuous Cardiac Monitoring: An order was placed for continuous cardiac monitoring. The monitor shows a rate of 87 with normal sinus rhythm. MEDICAL DECISION MAKING: There is no leukocytosis or worrisome anemia. There is a normal platelet count. Renal panel testing did not show kidney failure or significant electrolyte abnormality. Lactic acid level was somewhat elevated, this could be consistent with infection, dehydration or even bowel ischemia. Alk phos was slightly elevated, the remaining liver enzymes were unremarkable. No evidence for pancreatitis by our testing. Urinalysis result is currently pending. Chest film shows what appears to be a new left lower lung pneumonia. ECG shows a normal sinus rhythm, no acute ischemia. Cardiac enzyme testing x1 is not consistent with acute cardiac injury. Abdominal and pelvis CT with oral and IV contrast is currently pending. Patient presents with worsening abdominal pain for the last 4 days. She feels worse than she did when she was here in our ED 2 days ago. She now also complains of chest pain and shortness of breath and fever. The patient was given IV Tylenol, IV ceftriaxone. She received IV Benadryl, IV morphine, IV Zofran and IV saline. She was given IV Dilaudid for additional pain control. Certainly, this probable pneumonia in the left lower lung could be causing her abdominal pain, shortness of breath, chest pain and fever.. She is not doing well as an outpatient. I have had a hard time controlling her pain. I do think a hospital stay is warranted. I did speak to the patient and case management. The on-call hospitalist was consulted. Past Med/Surg History Medical History Clostridium difficile colitis (Resolved) Depression (Chronic) Edema (Chronic) GERD (gastroesophageal reflux disease) (Chronic) History of DVT (deep vein thrombosis) (Resolved) History of pulmonary embolism (Resolved) "completed 6 months Coumadin therapy" On 06/27/16 17:03 Nuha Zarate wrote On 03/23/16 16:22 Dottie Eladia wrote "2000 per patient; s/p knee replacement" MINI (iron deficiency anemia) (Chronic) Psoriatic arthritis (Chronic) Sleep apnea (Chronic) Vertigo (Chronic) Surgical History H/O wisdom tooth extraction (Resolved) History of appendectomy (Resolved) History of carpal tunnel surgery (Resolved) History of cholecystectomy (Resolved) S/P hysterectomy (Resolved) Status post appendectomy (Resolved) Status post cholecystectomy (Resolved) Status post gastric bypass for obesity (Resolved) Status post total knee replacement (Resolved) Social History Smoking Status: Never smoker Hx Alcohol Use: No Hx Substance Use: No Preferred Language: Bulgarian Communication Ability: Effective 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 Beliefs That Will Affect Care: None Current Living Situation: Family Feels Safe at Home: Yes Allergies Allergies Allergy/AdvReac Type Severity Reaction Status Date / Time oxycodone Allergy Intermediate HIVES Verified 03/31/20 18:26 piperacillin Allergy Intermediate Pruritus Verified 03/31/20 18:26 tazobactam Allergy Intermediate Pruritus Verified 03/31/20 18:26 ketorolac Allergy Mild Itching Verified 03/31/20 18:26 vancomycin AdvReac Unknown deathly ill Verified 03/31/20 18:26 Home Meds Home Medications Medication Instructions Recorded Confirmed ergocalciferol (vitamin D2) 50,000 units PO 2XWK 11/07/18 07/22/20 [Vitamin D2] levothyroxine [Synthroid] 25 mcg PO QAM 07/17/18 03/31/20 magnesium oxide 400 mg PO QAM 07/17/18 03/31/20 pantoprazole [Protonix] 40 mg PO BID 07/17/18 03/31/20 promethazine 25 mg PO Q8H PRN 07/17/18 03/31/20 sumatriptan succinate [Imitrex] 50 mg PO DIRECTED PRN 07/17/18 03/31/20 duloxetine 30 mg PO QAM 11/17/18 03/31/20 lorazepam [Ativan] 0.5 mg PO DAILY PRN 11/17/18 03/31/20 divalproex [Depakote ER] 750 mg PO HS 11/06/19 03/31/20 trazodone 300 mg PO HS 11/06/19 03/31/20 cholecalciferol (vitamin D3) 2,000 unit PO QAM 03/31/20 03/31/20 [Vitamin D3] fremanezumab-vfrm [Ajovy 225 mg SUBCUT MONTHLY 03/31/20 03/31/20 Autoinjector] propranolol [Inderal LA] 60 mg PO QAM 03/31/20 03/31/20 Results & Data (ED) Vital Signs Vital Signs - 24 hr 04/02/20 15:12 04/02/20 16:16 04/02/20 16:30 Temperature 37.4 C Temperature Source Oral Pulse Rate 87 77 75 Pulse Rhythm Regular Pulse Strength Normal Respiratory Rate 24 Respiratory Effort / Characteristics Non-Labored Spontaneous Respiratory Depth Normal Respiratory Pattern Regular Blood Pressure 148/96 H 128/89 132/86 Blood Pressure Mean 113 102 102 Blood Pressure Position Sitting Pulse Oximetry 94 Oxygen Delivery Method Room Air Sepsis Recent Fever Within 48 Hours No Sepsis New/Unexplained Change in Mental Status No Sepsis Action Taken by Nursing No Action Required 04/02/20 17:00 04/02/20 17:31 04/02/20 18:01 Temperature Temperature Source Pulse Rate 79 80 74 Pulse Rhythm Pulse Strength Respiratory Rate 20 19 22 Respiratory Effort / Characteristics Respiratory Depth Respiratory Pattern Blood Pressure 131/81 130/76 115/77 Blood Pressure Mean 90 97 102 Blood Pressure Position Pulse Oximetry 98 98 98 Oxygen Delivery Method Sepsis Recent Fever Within 48 Hours Sepsis New/Unexplained Change in Mental Status Sepsis Action Taken by Custodial Medications Current Medication List: was personally reviewed by me Laboratory Data Attestation: I reviewed the patient's lab results. Result diagrams: 04/02/20 16:09 04/02/20 16:09 Lab Results 04/02/20 04/02/20 04/02/20 Range/Units 16:09 16:09 17:06 WBC 10.22 (4.8-10.8) K/uL RBC 4.43 (4.2-5.4) M/uL Hgb 11.4 L (12.0-16.0) g/dL Hct 35.3 L (37-47) % MCV 79.7 L (80-100) fL MCH 25.7 (25-34) pg MCHC 32.3 (32-36) g/dL RDW Std Deviation 47.7 H (36.4-46.3) fL RDW Coeff of Halley 16.5 H (11.5-14.5) % Plt Count 338 (130-400) K/uL MPV 8.8 (7.4-10.4) fL Immature Gran % (Auto) 0.1 % Neut % (Auto) 43.9 % Lymph % (Auto) 47.4 % Carson % (Auto) 7.2 % Eos % (Auto) 1.0 % Baso % (Auto) 0.4 % Neut # (Auto) 4.49 (1.4-6.5) K/uL Lymph # (Auto) 4.84 H (1.2-3.4) K/uL Carson # (Auto) 0.74 H (0.11-0.59) K/uL Eos # (Auto) 0.10 (0-0.5) K/uL Baso # (Auto) 0.04 (0-0.2) K/uL Immature Gran # (Auto) 0.01 (0.00-0.02) K/uL Sodium 141 (136-145) mmol/L Potassium 3.7 (3.5-5.1) mmol/L Chloride 110 H (98-107) mmol/L Carbon Dioxide 24 (21-32) mmol/L Anion Gap 7.0 (3-11) BUN 11 (7-18) mg/dl Creatinine 0.91 (0.6-1.2) mg/dl Est Cr Clr Drug Dosing 81.3 ml/min Est GFR ( Amer) 81.2 Est GFR (Non-Af Amer) 70.0 BUN/Creatinine Ratio 12.5 (10-20) Glucose 86 (70-99) mg/dl Lactate 2.1 H* (0.4-2.0) mmol/L Calcium 8.3 L (8.5-10.1) mg/dl Total Bilirubin 0.2 (0.2-1) mg/dl AST 11 L (15-37) U/L ALT 24 (12-78) U/L Alkaline Phosphatase 126 H (45-117) U/L Troponin I < 0.015 (0-0.045) ng/ml Total Protein 7.0 (6.4-8.2) gm/dl Albumin 3.8 (3.4-5.0) gm/dl Globulin 3.2 (2.5-4.0) gm/dl Albumin/Globulin Ratio 1.2 (0.9-2) Lipase 64 L (73-393) U/L Administered Medications Morphine Sulfate (Morphine Sulfate) 4 mg IV Q20M PRN PRN Reason: Pain Stop: 04/16/20 15:49 Last Admin: 04/02/20 17:31 Dose: 4 mg Documented by: [id number] Admin: 04/02/20 16:26 Dose: 4 mg Documented by: [id number] Discontinued Medications Diphenhydramine HCl (Benadryl) 25 mg IV NOW STA Stop: 04/02/20 15:51 Last Admin: 04/02/20 16:27 Dose: 25 mg Documented by: [id number] Sodium Chloride (Nss 1000ml) 1,000 mls @ 999 mls/hr IV .Q1H1M ONE Stop: 04/02/20 16:50 Last Admin: 04/02/20 16:27 Dose: 999 mls/hr Documented by: [id number] Acetaminophen (Ofirmev) 1,000 mg in 100 mls @ 400 mls/hr IV NOW STA Stop: 04/02/20 16:04 Last Admin: 04/02/20 16:27 Dose: 400 mls/hr Documented by: [id number] Ceftriaxone Sodium (Rocephin) 2,000 mg in 70 mls @ 140 mls/hr IV NOW STA Stop: 04/02/20 18:22 Last Admin: 04/02/20 18:06 Dose: 140 mls/hr Documented by: [id number] Ondansetron HCl (Zofran) 4 mg IV NOW STA Stop: 04/02/20 15:51 Last Admin: 04/02/20 16:26 Dose: 4 mg Documented by: [id number] Imaging Data Radiologist's Impression: XR chest 1V portable HISTORY: 55 years-old Female cp acute nausea with chest and abdominal pain COMPARISON: CT abdomen pelvis 03/31/2020, CTA chest 12/23/2019 TECHNIQUE: Portable AP view of the chest FINDINGS: Cardiac silhouette is enlarged, unchanged. Pulmonary vascular congestion. Mild chronic interstitial coarsening. Ill-defined asymmetric left basilar opacities. There is no pneumothorax, large pleural effusion or overt pulmonary edema. Degenerative changes of the shoulders and spine. IMPRESSION: 1. Cardiomegaly without overt pulmonary edema. 2. Mild ill-defined left basilar opacities suggest atelectasis versus pneumonitis. Abdominal and pelvis CT with oral and IV contrast is pending. Blood Pressure Blood Pressure Findings: Elevated blood pressure Blood Pressure Disposition: further management by hospitalist Discharge Plan Visit Data Chief Complaint: Abdominal Pain Stated Complaint: AB/BACK PAIN ED Provider: Zander Naranjo Discharge Problem: Precordial chest pain, Left sided abdominal pain, Pneumonia, Failure of outpatient treatment, Elevated lactic acid level Patient Disposition: Admitted As Inpatient Condition: Fair Forms Stand Alone Forms: [facility] [employer] Prescriptions Prescriptions: No Action sumatriptan succinate [Imitrex] 50 mg Tablet 50 mg PO DIRECTED PRN (Reason: Migraine Headache) RF: 0 levothyroxine [Synthroid] 25 mcg Tablet 25 mcg PO QAM RF: 0 pantoprazole [Protonix] 40 mg Tablet,Delayed Release (Dr/Ec) 40 mg PO BID RF: 0 promethazine 25 mg Tablet 25 mg PO Q8H PRN (Reason: Nausea) RF: 0 ergocalciferol (vitamin D2) [Vitamin D2] 50,000 unit Capsule 50,000 units PO 2XWK RF: 0 magnesium oxide 400 mg magnesium Tablet 400 mg PO QAM RF: 0 propranolol [Inderal LA] 60 mg Capsule,Extended Release 24 Hr 60 mg PO QAM RF: 0 cholecalciferol (vitamin D3) [Vitamin D3] 50 mcg (2,000 unit) Capsule 2,000 unit PO QAM RF: 0 Ajovy Autoinjector 225 mg/1.5 mL Auto-Injector 225 mg SUBCUT MONTHLY RF: 0 lorazepam [Ativan] 0.5 mg Tablet 0.5 mg PO DAILY PRN (Reason: Anxiety) RF: 0 duloxetine 30 mg Capsule,Delayed Release(Dr/Ec) 30 mg PO QAM RF: 0 trazodone 300 mg tablet 300 mg PO HS RF: 0 divalproex [Depakote ER] 250 mg Tablet Extended Release 24 Hr 750 mg PO HS RF: 0 Referrals Referrals: Richi Sutton DO [Primary Care Provider] - Discharge Problem: Pneumonia Qualifiers: Pneumonia type: due to unspecified organism Laterality: left Lung location: lower lobe of lung Qualified Code(s): J18.9 - Pneumonia, unspecified organism
[2020-04-02 16:20] LABS: Basophils # (auto) 0.04 K/uL (0-0.2); Basophils % (auto) 0.4 %; Hematocrit (blood only) 35.3 % (37-47); Hemoglobin 11.4 g/dL (12.0-16.0); Immature Granulocytes # (auto) 0.01 K/uL (0.00-0.02); Immature Granulocytes % (auto) 0.1 %; Lymphocytes # (auto) 4.84 K/uL (1.2-3.4); Lymphocytes % (auto) 47.4 %; Mean Corpuscular Hemoglobin 25.7 pg (25-34); Mean Corpuscular Hgb Conc 32.3 g/dL (32-36); Mean Corpuscular Volume 79.7 fL (80-100); Mean Platelet Volume 8.8 fL (7.4-10.4); Monocytes # (auto) 0.74 K/uL (0.11-0.59); Monocytes % (auto) 7.2 %; Neutrophils # (auto) 4.49 K/uL (1.4-6.5); Neutrophils % (auto) 43.9 %; Platelet Count 338 K/uL (130-400); RDW Coefficient of Variation 16.5 % (11.5-14.5); RDW Standard Deviation 47.7 fL (36.4-46.3); Red Blood Count 4.43 M/uL (4.2-5.4); White Blood Count 10.22 K/uL (4.8-10.8)
[2020-04-02] MEDS: MoRPHine SULFATE 4 MG/ML 1 ML CARP\\VIAL IV PRN ×3 (16:26→21:24)
[2020-04-02 16:36] LABS: Albumin Level 3.8 gm/dl (3.4-5.0); Aspartate Aminotransferase 11 U/L (15-37); BUN Creatinine Ratio 12.5 (10-20); Blood Urea Nitrogen 11 mg/dl (7-18); Calcium 8.3 mg/dl (8.5-10.1); Carbon Dioxide 24 mmol/L (21-32); Chloride 110 mmol/L (98-107); Creatinine Clr Calc Pharmacy 81.3 ml/min; Est GFR (African American) 81.2; Glucose 86 mg/dl (70-99); Lipase 64 U/L (73-393); Potassium 3.7 mmol/L (3.5-5.1); Sodium 141 mmol/L (136-145)
--- NOTE | 2020-04-02 16:40 | Electrocardiogram Report ---
Test Reason : Blood Pressure : / mmHG Vent. Rate : 068 BPM Atrial Rate : 068 BPM P-R Int : 182 ms QRS Dur : 094 ms QT Int : 376 ms P-R-T Axes : 020 -07 021 degrees QTc Int : 399 ms Normal sinus rhythm Moderate voltage criteria for LVH, may be normal variant Inferior infarct (cited on or before 04-JAN-2017) Anterolateral infarct (cited on or before 01-MAY-2017) Abnormal ECG When compared with ECG of 31-MAR-2020 20:42, Questionable change in initial forces of Lateral leads T wave amplitude has decreased in Anterior leads Confirmed by Trell Harper ([id number]) on 04/02/2020 4:39:35 PM Referred By: Confirmed By:Trell Harper
[2020-04-02 16:45] LABS: Alanine Aminotransferase 24 U/L (12-78); Albumin Globulin Ratio 1.2 (0.9-2); Alkaline Phosphatase 126 U/L (45-117); Bilirubin,Total 0.2 mg/dl (0.2-1); Globulin 3.2 gm/dl (2.5-4.0); Troponin I < 0.015 ng/ml (0-0.045)
--- NOTE | 2020-04-02 16:49 | XRay Report ---
XR chest 1V portable HISTORY: 55 years-old Female cp acute nausea with chest and abdominal pain COMPARISON: CT abdomen pelvis 03/31/2020, CTA chest 12/23/2019 TECHNIQUE: Portable AP view of the chest FINDINGS: Cardiac silhouette is enlarged, unchanged. Pulmonary vascular congestion. Mild chronic interstitial c oarsening. Ill-defined asymmetric left basilar opacities. There is no pneumothorax, large pleural eff usion or overt pulmonary edema. Degenerative changes of the shoulders and spine. IMPRESSION: 1. Cardiomegaly without overt pulmonary edema. 2. Mild ill-defined left basilar opacities suggest atelectasis versus pneumonitis. ACT 112: Negative or not required by law. The above report was generated using voice recognition software. It may contain grammatical, syntax o r spelling errors. Electronically signed by: Fransisco Owens M.D. 04/02/2020 4:48 PM
[2020-04-02] MEDS ORDERED: cefTRIAXone SODIUM 2,000 MG/70 ML BAG IV STA (17:53)
[2020-04-02] MEDS ORDERED: HYDROmorphone INJ 0.5 MG/0.5 ML SYR IV STA (18:14)
[2020-04-02 18:19] LABS: Appearance Urine Clear (Clear); Bilirubin Urine Negative (Negative); Blood Urine Negative (Negative); Color Urine Yellow; Glucose Urine UA Negative (Negative); Ketones Urine Negative (Negative); Leukocyte Esterase Urine Trace (Negative); Nitrite Urine Negative (Negative); Protein Urine Negative (Negative); Specific Gravity Urine 1.007 (1.000-1.030); Urobilinogen Urine Negative (Negative); pH Urine 5.5 (4.5-7.5)
[2020-04-02 19:15] LABS: RBC Urine Automated 0-4 /hpf (0-4); WBC Urine Automated 0 /hpf (0-5)
[2020-04-02 19:16] LABS: Bacteria Urine Automated Negative (Negative); Cast Urine Automated 0 /lpf (0-5)
[2020-04-02] MEDS ORDERED: IOVERSOL 100ml IV PRN (19:22)
--- NOTE | 2020-04-02 20:07 | CT Scan Report ---
CT SCAN OF THE CHEST, ABDOMEN, AND PELVIS WITH IV CONTRAST CLINICAL HISTORY: Atypical chest pain. Left-sided abdominal pain. COMPARISON STUDY: Chest CT scans dated 12/23/2019, 01/04/2018, and 08/23/2007. Abdominal CT dated 03/31. TECHNIQUE: Following the IV administration of 93 of Optiray 320, CT scan of the chest, abdomen, and p farideh was performed from the thoracic inlet to the proximal femora. Images are reviewed in the axial, sagittal, and coronal planes. IV contrast was administered without complication. Oral contrast was u tilized. A dose lowering technique was utilized adhering to the principles of ALARA. CT DOSE: 2192.68 mGy.cm FINDINGS: CHEST: Thyroid: Imaged portions of the thyroid gland are normal in size and attenuation. Thoracic aorta: The thoracic aorta is normal in caliber and demonstrates standard 3-vessel arch anato my. No dissection is seen. Pulmonary vasculature: The pulmonary trunk is normal in caliber. There are no filling defects identif ied in the central pulmonary vessels to indicate pulmonary embolus. Note that this examination was no t protocoled for evaluation of the pulmonary arteries. Heart: The heart is normal in size and without pericardial effusion. Lungs and pleural spaces: There is no airspace consolidation or pleural effusion. Dependent atelectas is is noted at the lung bases. The trachea and central airways are clear. There is a 3 mm right upper lobe pulmonary nodule on image #104 and a formal matter groundglass nodule in the left upper lobe on image #184. These are unchanged and 2007 and of doubtful significance. Mediastinum: There is no mediastinal lymphadenopathy. Mignon: Clear. Axillae: There is no axillary lymphadenopathy. Bony thorax: The skeletal structures are osteopenic. No lytic or blastic lesions are identified. ABDOMEN AND PELVIS: Liver: The contrast-enhanced liver is normal in size, contour, and attenuation. There is minimal cent ral intrahepatic biliary ductal dilatation. The hepatic veins and portal veins are patent. Gallbladder: Surgically absent noting clips in the gallbladder fossa. Spleen: Normal in size and attenuation. There are scattered calcified splenic granulomas. Pancreas: Moderately atrophic and grossly unremarkable. Adrenal glands: Unremarkable. Kidneys: The contrast enhanced kidneys are normal in size and without hydronephrosis. The kidneys enh ance symmetrically. Abdominal vasculature: The abdominal aorta is normal in course and caliber. Stomach and bowel: There is a small hiatal hernia. Postoperative changes consistent with a history of Neel-en-Y gastric bypass surgery. There is no bowel obstruction. Enteric contrast reaches the left c olon. There is mild colonic diverticulosis without CT evidence of acute diverticulitis. The appendix is not identified and reported surgically absent. Peritoneum: There is no intraperitoneal free air or abdominal ascites. There is a small fat-containin g umbilical hernia. Lymphadenopathy: None. Pelvic viscera: The bladder is distended but otherwise normal as visualized. The uterus is surgically absent. No adnexal lesion is seen. There is a small fat-containing left inguinal hernia. Skeletal structures: The skeletal structures are osteopenic. There is mild lumbosacral spondylosis. N o lytic or blastic lesions are seen. IMPRESSION: 1. There is no airspace consolidation or pleural effusion. 2. There are no acute infectious or inflammatory findings in the abdomen or pelvis. No change from st udy performed 2 days previously. 3. There is postoperative change consistent with a history of Neel-en-Y gastric bypass surgery. No karen wel obstruction is seen. 4. Mild colonic diverticulosis without CT evidence of acute diverticulitis. 5. Additional findings as above. ACT 112: Negative or not required by law. Electronically signed by: Zander Humphrey M.D. 04/02/2020 8:05 PM
[2020-04-02] MEDS ORDERED: ONDANSETRON INJ 2 MG/ML 2 ML VIAL ONE (21:23)
[2020-04-02 21:27] LABS: Influenza A virus by PCR Neg for Influ A (Neg); Influenza B virus by PCR Neg for Influ B (Neg)
[2020-04-02] MEDS ORDERED: NITROGLYCERIN SL 0.4 MG/TAB TAB SL PRN (22:41)
[2020-04-02] MEDS ORDERED: LORazepam 0.5 MG TAB PO PRN (22:41)
[2020-04-02] MEDS ORDERED: SUMAtriptan succinate 50 MG TAB PO PRN (22:41)
[2020-04-02] MEDS ORDERED: POLYETHYLENE (MIRALAX) 17 GM PACK PO PRN (22:41)
[2020-04-02] MEDS ORDERED: ACETAMINOPHEN 325 MG TAB PO PRN (22:41)
--- NOTE | 2020-04-02 22:59 | History and Physical Report ---
DATE OF ADMISSION: 04/02/2020 CHIEF COMPLAINT: Abdominal pain and shortness of breath. HISTORY OF PRESENT ILLNESS: A 55-year-old female with past medical history significant for prediabetes, hypothyroidism, GERD, status post gastric bypass surgeries post-gastric surgery syndrome, migraines, iron deficiency anemia, psoriatic arthropathy, depression, generalized edema, history of pulmonary embolism, completed 6 months of anticoagulation, history of C. diff, presents with ongoing abdominal pain since last 5 days. The patient was in the ER a couple of days ago with abdominal pain and at that time it was thought to be from vaginal yeast infection and CT abdomen did not suggest any acute process. She was discharged to home, but the patient says since then belly pain got worse in the epigastric region, also some dry heaves and she also had developed some chest discomfort, there is some dry cough and shortness of breath and she feels chills since last night. Denies any fevers, no vomiting, no diarrhea or constipation. The patient says she also a couple of episodes of blood in the urine, no burning micturition. Appetite is not that great. Has some mild headache, complaints of dizziness, no earache, no runny nose, no sore throat, no difficulty swallowing. She gets swelling in the legs on and off, she has mild swelling now. Lives with her . Currently resting comfortably and hemodynamically stable. ALLERGIES: PERCOCET, TORADOL, VANCOMYCIN AND ZOSYN. PAST MEDICAL HISTORY: As mentioned above. PAST SURGICAL HISTORY: Cardiac catheterization, bilateral carpal tunnel surgery, cholecystectomy open, colonoscopy, multiple EGDs, excision of excessive skin panniculectomy, gastric revision for gastric restrictive procedure with bypass, right knee arthroscopy, right total knee replacement, wisdom tooth extraction, appendectomy, total abdominal hysterectomy with removal of tubes, wedge biopsy of the liver. MEDICATIONS: Currently the patient is on vitamin D 2000 units p.o. a.m., Depakote ER 750 mg p.o. at bedtime, duloxetine 30 mg p.o. a.m., vitamin D 50,000 units p.o. 2 times weekly, Ajovy 225 mg subcutaneous monthly, levothyroxine 25 mcg p.o. a.m., Ativan 0.5 mg p.o. daily p.r.n., magnesium oxide 400 mg p.o. daily, Protonix 40 mg p.o. b.i.d., promethazine 25 mg p.o. q. 8 hours p.r.n., propranolol 60 mg p.o. a.m., Imitrex 50 mg as directed, trazodone 300 mg p.o. at bedtime. FAMILY HISTORY: Significant for father had breast cancer. Mother had rheumatoid arthritis. Aunt has rheumatoid arthritis and psoriatic arthritis. Maternal grandmother had rheumatoid arthritis, paternal grandmother had breast, ovarian and bone cancer. Daughter has MS and fibromyalgia. SOCIAL HISTORY: . No smoking, no alcohol, no drug use. REVIEW OF SYMPTOMS: As per HPI. Rest of review of symptoms negative. PHYSICAL EXAMINATION: GENERAL: The patient is obese, not in acute distress. VITAL SIGNS: Temperature 37.4, pulse 77, respiratory rate 19, blood pressure 108/70, oxygen 93% on room air. HEENT: No pallor, no scleral icterus. Extraocular muscles intact. Pupils equal, round, reactive to light. NECK: No JVD, no neck masses. Supple. CARDIOVASCULAR: S1, S2 heard, regular rate and rhythm, no murmur, no gallop. RESPIRATORY SYSTEM: Normal AP diameter. No accessory muscle use. No wheezing, no crackles. ABDOMEN: Soft, bowel sounds present. Mild abdominal discomfort in the epigastric region, mild guarding, no rigidity. No distention. CENTRAL NERVOUS SYSTEM: Cranial nerves II-XII grossly intact. Nonfocal. EXTREMITIES: No edema, no erythema. LABORATORY DATA: WBC 10.2, hemoglobin 11.4, hematocrit 35.3, platelets 338. Sodium 141, potassium 3.7, chloride 110, bicarbonate 24, BUN 11, creatinine 0.9, serum glucose 86. Lactate 2.1, calcium 8.7, total bilirubin 0.2, AST 11, ALT 24, alkaline phosphatase 126. Troponin I less than 0.015. Lipase 64. Urinalysis, trace leukocyte esterase. Chest x-ray shows left lower lobe opacity suggests atelectasis versus pneumonitis. EKG: Normal sinus rhythm, no acute ST changes seen. CT of abdomen and pelvis, no acute findings, no change from previous study. CT chest, no airspace consolidation, pleural effusion. ASSESSMENT AND PLAN: This is a 55-year-old female who presents with ongoing abdominal pain since last 5 days and also had some chest discomfort and shortness of breath and cough. Chest x-ray shows possible pneumonia on the right lower lobe but CT chest looks fine. 1. Abdominal pain, nausea: Could be underlying gastritis, she has a history of gastric bypass surgery, on Protonix 40 mg b.i.d., will start on IV Pepcid. Clear liquid diet and IV fluids and monitor. 2. Possible pneumonia with cough and shortness of breath: Chest x-ray shows right lower lobe opacities, but CT chest was okay, afebrile. Her lactic acid is 2.1. Starting on Rocephin and doxycycline for now and see the response. Follow the repeat lactic acid. The patient has no loss of sense of smell or taste or no risk factors of COVID, but because of pandemic, we will rule it out.COVID came back negative. 3. Chest pain. Will follow serial ce and echo. 4. Migraine: Continue propranolol, Imitrex p.r.n. 5. Hypothyroidism: Continue Synthroid. 6. Depression. Continue Cymbalta and trazodone. 7. Prediabetes: We will follow the HbA1c levels. Diabetic diet. 8. Psoriatic arthritis: Follows with [facility] rheumatology. 9. History of pulmonary embolism: completed 6 months of anticoagulation as outpatient. 10. Deep venous thrombosis prophylaxis: With Lovenox. 11. Disposition: Closely monitor in the [facility]. Level 1 full code. MTDD
[2020-04-02] MEDS ORDERED: DOXYCYCLINE HYCLATE 100 MG in DEXTROSE 5% 100 ML IV SCH (23:00)
[2020-04-02] MEDS: FAMOTIDINE 20 MG in SYRINGE 3 ML IV SCH (23:46)
[2020-04-02] MEDS: SODIUM CHLORIDE 0.9% 1000ML 1,000 ML IV SCH (23:53)
[2020-04-02] MEDS: DIVALPROEX EXTENDED RELEASE 250 MG TABCR PO SCH (23:53)
[2020-04-02] MEDS: PANTOprazole 40 MG TAB PO SCH (23:53)
[2020-04-02] MEDS: TRAZODONE HCL 100 MG TAB PO SCH (23:54)
[2020-04-03] MEDS: ONDANSETRON INJ 2 MG/ML 2 ML VIAL IV PRN ×2 (02:24→13:51)
[2020-04-03] MEDS: LEVOTHYROXINE SODIUM 25 MCG TABLET PO SCH (05:27)
--- NOTE | 2020-04-03 06:59 | Hospitalist Progress Note ---
Date of Service April 03, 2020 Assessment & Plan (1) Pneumonia: (2) Diffuse abdominal pain: (3) Pre-diabetes: (4) Hypothyroidism: (5) GERD (gastroesophageal reflux disease): (6) Depression: (7) Sleep apnea: (8) MINI (iron deficiency anemia): (9) History of pulmonary embolism: (10) History of DVT (deep vein thrombosis): (11) Psoriatic arthritis: ASSESSMENT AND PLAN: This is a 55-year-old female who presents with ongoing abdominal pain since last 5 days and also had some chest discomfort and shortness of breath and cough. Chest x-ray shows possible pneumonia on the right lower lobe but CT chest looks fine. 1. Abdominal pain, nausea: Could be underlying gastritis, she has a history of gastric bypass surgery, on Protonix 40 mg b.i.d., was placed on IV Pepcid. Clear liquid diet and IV fluids and monitor. 2. Pneumonia with cough and shortness of breath: Chest x-ray shows right lower lobe opacities, but CT chest was okay, afebrile. Her lactic acid is 2.1. On Rocephin and doxycycline for now and see the response. Follow the repeat lactic acid. COVID negative 3. Migraine: Continue propranolol, Imitrex p.r.n. 4. Hypothyroidism: Continue Synthroid. 5. Depression. Continue Cymbalta and trazodone. 6. Prediabetes: We will follow the HbA1c levels. Diabetic diet. 7. Psoriatic arthritis: Follows with [facility] Rheumatology. 8. History of pulmonary embolism/DVT: Completed 6 months of anticoagulation as outpatient. 9. Deep venous thrombosis prophylaxis: With Lovenox. 10. Disposition: med tele. Level 1 full code. 11. Chest pain. Serial cardiac enzymes negative and echo pending. Labs checked, Stool for CDT ROS-No Headache, No Visual Changes, No Nausea, No Vomiting, No Fever, No Chills, No Neck Pain or Stiffness, No Chest Pain, No Palpitations, + SOB, + MCQUEEN, + Cough, No Sputum, No Wheezing, + Abdominal Pain, No Diarrhea, No Hematemesis, No Hemoptysis, No Unexpected Weight Loss, No Flank pain, No Melena, No Hematochezia, No Frequency, No Urgency, No Burning, No Hematuria, No Rashes, No Diaphoresis. Appetite is Normal Physical Exam Gen-AAO x 3, NAD, Afebrile Head-NCAT, EOMI, PERRLA, Anicteric Sclera, No Posterior Pharyngeal Erythema Neck-Supple, No JVD, No Thyromegaly, No Masses, No LAD, No Bruits Lungs-Clear to Auscultation Bilaterally, No Rales, No Rhonchi, No Wheezing, No Crepitus Chest-No S4, +S1, +S2, No S3, No Murmurs, No Rubs, No Gallops, No Ectopy Abdomen-Soft, Bowel Sounds Present, Non Tender, Non Distended, No Hepatomegaly, No Splenomegaly, No Palpable Masses, No Rebound, No Rigidity, No Guarding Musculoskeletal-Full Range of Motion Bilaterally, No CVAT Extremities-No Cyanosis, No Clubbing, No Edema Nuero-Cranial Nerves II-XII grossly intact, Motor WNL, DTRs WNL, Strength WNL, Non Focal Psych-Normal Mood Admission and Anticipated Discharge Date Admission Date: April 02, 2020 Results & Data Results & Data ([facility]) Vital Signs (Past 12 Hours) Vital Signs Temp Pulse Pulse Resp BP BP Pulse Ox 04/03/20 02:57 36.4 C L 66 17 104/64 93 04/02/20 23:20 36.4 C L 65 17 128/86 93 04/02/20 23:07 62 04/02/20 22:57 36.4 C L 66 16 128/78 92 04/02/20 22:12 36.5 C 04/02/20 22:01 68 16 95/67 L 90 04/02/20 21:31 70 16 115/69 95 04/02/20 21:00 73 17 140/68 93 04/02/20 20:31 77 20 111/67 90 04/02/20 20:29 70 18 116/68 91 04/02/20 19:00 77 19 108/70 93 (1) Pneumonia Laterality: left Lung location: lower lobe of lung Pneumonia type: due to unspecified organism Qualified Code(s): J18.9 - Pneumonia, unspecified organism
[2020-04-03 07:43] LABS: Basophils # (auto) 0.04 K/uL (0-0.2); Basophils % (auto) 0.9 %; Eosinophils # (auto) 0.09 K/uL (0-0.5); Hematocrit (blood only) 31.7 % (37-47); Lymphocytes # (auto) 2.21 K/uL (1.2-3.4); Lymphocytes % (auto) 48.7 %; Mean Corpuscular Hemoglobin 25.6 pg (25-34); Mean Corpuscular Hgb Conc 31.5 g/dL (32-36); Mean Corpuscular Volume 81.3 fL (80-100); Monocytes # (auto) 0.45 K/uL (0.11-0.59); Monocytes % (auto) 9.9 %; Neutrophils # (auto) 1.75 K/uL (1.4-6.5); Neutrophils % (auto) 38.5 %; Platelet Count 308 K/uL (130-400); Prothrombin Time 10.8 Seconds (9.0-12.0); RDW Coefficient of Variation 16.6 % (11.5-14.5); RDW Standard Deviation 49.3 fL (36.4-46.3); White Blood Count 4.54 K/uL (4.8-10.8)
[2020-04-03 08:19] LABS: BUN Creatinine Ratio 9.3 (10-20); Calcium 8.1 mg/dl (8.5-10.1); Creatinine Clr Calc Pharmacy 90.5 ml/min; Est GFR (African American) 92.1; Est GFR (Non-African American) 79.4; Magnesium 2.2 mg/dl (1.8-2.4); Potassium 4.4 mmol/L (3.5-5.1)
[2020-04-03] MEDS ORDERED: PERFLUTREN LIPID MICROSPHERE (DEFINITY) IV ONE (08:27)
[2020-04-03] MEDS: MoRPHine SULFATE 4 MG/ML 1 ML CARP\\VIAL IV PRN ×2 (08:37→13:51)
[2020-04-03] MEDS: PROMETHAZINE HCL 25 MG TAB PO PRN (08:38)
[2020-04-03] MEDS: DULOXETINE HCL 30 MG CAP PO SCH (08:38)
[2020-04-03] MEDS: FAMOTIDINE 20 MG in SYRINGE 3 ML IV SCH ×2 (08:38→21:40)
[2020-04-03] MEDS: PROPRANOLOL HCL 60 MG LA CAP PO SCH (08:38)
[2020-04-03] MEDS: CHOLECALCIFEROL 1,000 UNITS 25 MCG TAB PO SCH (08:39)
[2020-04-03] MEDS: MAGNESIUM OXIDE 400 MG TAB PO SCH (08:39)
[2020-04-03] MEDS: PANTOprazole 40 MG TAB PO SCH ×2 (09:29→20:34)
[2020-04-03] MEDS: SODIUM CHLORIDE 0.9% 1000ML 1,000 ML IV SCH ×2 (09:30→20:44)
[2020-04-03] MEDS: ENOXAPARIN INJ 40 MG/0.4 ML SYR SQ SCH (09:30)
[2020-04-03 13:13] LABS: Estimated Average Glucose 140 mg/dl; Hemoglobin A1C 6.5 % (4.5-5.6)
[2020-04-03] MEDS: FLUCONAZOLE 200 MG/100 ML BAG IV SCH (13:51)
[2020-04-03] MEDS ORDERED: cefTRIAXone SODIUM 2,000 MG in DEXTROSE 5% 50 ML IV SCH (18:00)
[2020-04-03] MEDS: DIVALPROEX EXTENDED RELEASE 250 MG TABCR PO SCH (20:33)
[2020-04-03] MEDS: TRAZODONE HCL 100 MG TAB PO SCH (20:34)
[2020-04-04] MEDS: SODIUM CHLORIDE 0.9% 1000ML 1,000 ML IV SCH ×3 (05:01→20:38)
[2020-04-04] MEDS: LEVOTHYROXINE SODIUM 25 MCG TABLET PO SCH (06:02)
[2020-04-04 06:03] LABS: Hematocrit (blood only) 32.1 % (37-47); Hemoglobin 10.1 g/dL (12.0-16.0); Mean Corpuscular Hgb Conc 31.5 g/dL (32-36); Mean Corpuscular Volume 82.7 fL (80-100); Mean Platelet Volume 8.9 fL (7.4-10.4); Platelet Count 281 K/uL (130-400); RDW Coefficient of Variation 16.5 % (11.5-14.5); RDW Standard Deviation 50.2 fL (36.4-46.3); Red Blood Count 3.88 M/uL (4.2-5.4); White Blood Count 5.44 K/uL (4.8-10.8)
[2020-04-04 06:23] LABS: BUN Creatinine Ratio 11.2 (10-20); Calcium 8.1 mg/dl (8.5-10.1); Creatinine Clr Calc Pharmacy 88.5 ml/min; Est GFR (African American) 88.2; Est GFR (Non-African American) 76.1; Potassium 4.7 mmol/L (3.5-5.1)
[2020-04-04] MEDS: FAMOTIDINE 20 MG in SYRINGE 3 ML IV SCH (08:26)
[2020-04-04] MEDS: ENOXAPARIN INJ 40 MG/0.4 ML SYR SQ SCH (08:27)
[2020-04-04] MEDS: CHOLECALCIFEROL 1,000 UNITS 25 MCG TAB PO SCH (08:27)
[2020-04-04] MEDS: DULOXETINE HCL 30 MG CAP PO SCH (08:28)
[2020-04-04] MEDS: MAGNESIUM OXIDE 400 MG TAB PO SCH (08:28)
[2020-04-04] MEDS: PANTOprazole 40 MG TAB PO SCH ×2 (08:28→20:37)
[2020-04-04] MEDS: PROPRANOLOL HCL 60 MG LA CAP PO SCH (08:29)
[2020-04-04] MEDS: MoRPHine SULFATE 4 MG/ML 1 ML CARP\\VIAL IV PRN ×3 (08:42→19:07)
[2020-04-04] MEDS: ONDANSETRON INJ 2 MG/ML 2 ML VIAL IV PRN ×2 (08:44→13:32)
[2020-04-04] MEDS: FLUCONAZOLE 200 MG/100 ML BAG IV SCH (13:37)
[2020-04-04] MEDS: PROMETHAZINE HCL 25 MG TAB PO PRN (17:41)
[2020-04-04] MEDS ORDERED: PROMETHAZINE HCL 12.5 MG in SODIUM CHLORIDE 0.9% 50 ML IV STA (18:20)
--- NOTE | 2020-04-04 19:28 | Hospitalist Progress Note ---
Date of Service April 04, 2020 Assessment & Plan (1) Diffuse abdominal pain: Uncertain etiology, question possible colitis, however, diarrhea is resolved and may have been from antibiotics per her report. Pain appears to be more epigastric, and food brings on significant nausea. ? gastritis as a cuase. No blood per rectum and no vomiting. Nausea is controlled with phenergan. CT abd/pelvis reveals no evidence of obstruction, free air, colitis or clear cause of her acute symptoms. She is a gastric bypass patient, who denies any post- surgical complications in the past. KUB with some nonspecific changes, but no evidence of free air or obstruction. Consult GI for assistance and continue supportive care efforts. (2) GERD (gastroesophageal reflux disease): She is taking protonix 40mg BID at home. Will continue this, however, stopped IV Pepcid that was scheduled as this is not helping her. (3) Hypothyroidism: Cont Synthroid per home regimen. (4) Depression: stable, cont duloxetine per home regimen. (5) Yeast infection involving the vagina and surrounding area: resolved with Diflucan treatment. (6) MINI (iron deficiency anemia): H/H around baseline for the last 6 months. Will review outpatient records for recent iron studies. (7) Psoriatic arthritis: per [facility] Rheumatology. (8) Migraine: Continues on propranolol for migraine prophylaxis. Takes sumatriptan, imtiaz manezumab as needed. Currently she is headache-free. (9) DVT prophylaxis: Lovenox Full Code Dispo-to home when clinically improved. Vanesa Peña DO [facility] Hospitalist Admission and Anticipated Discharge Date Admission Date: April 02, 2020 Subjective Initially came in for abdominal pain in the LLQ with radiation to the central chest. She initially had a yeast infection which is resolved now after diflucan treatment. She initially reported fever, dry heaves, cough, SOB and had two episodes of hematuria. Initially she was thought to possibly have a pneumonia, and was started on Rocephin and doxycycline, however, her CT chest looked clear and these antibiotics were stopped the next day (yesterday). She reported diarrhea x 5 episodes yesterday which has resolved. Unable to give a stool sample to screen for c-diff vs other infection. COVID serology was negative. Urine was checked and negative for infection. No microscopic hematuria was seen. For her chest pain, serial troponin enzyme was negative, EKGs revealed no evidence of acute ischemia and an echo showed now wall motion abnormalities that would be associated with possible ischemia. She did report some chills overnight without fever. She had an improvement in her abdominal pain this morning and was able to eat, however, she now has worsened epigastric pain with radiation into her chest and she is extremely nautious. She is a gastric bypass patient, but denies severe bouts of nausea like this in the past. CT a/p did not reveal any acute process. This as performed on 04/02. A repeat KUB this evening reveals changes consistent with possible colitis. She has no evidence of leukocytosis. Review of Systems Review of Systems: All systems reviewed & are unremarkable except as noted in Subjective Physical Exam Physical Exam: CONSTITUTIONAL: obese, vitals as above, generally appears guarded and nauseous EYES: normal conjunctivae, no scleral icterus ENT: external ear and nose normal, oropharynx clear, MMM RESPIRATORY: clear to auscultation bilaterally, no crackles, rales or wheezes, normal respiratory effort CARDIOVASCULAR: regular rate and rhythm, S1 and 2 heard without murmurs, gallops or rubs, no JVD, no peripheral edema GASTROINTESTINAL: normal bowel sounds, soft, TTP diffusely with severe pain in epigastric region, no guarding MUSCULOSKELETAL: strength 5/5 throughout, head is normocephalic and atraumatic SKIN: warm and dry NEUROLOGIC: CN 2-12 grossly intact, normal cognition, normal speech, no tremor, no gross focal deficits. PSYCHIATRIC: alert cooperative and oriented to person, place and time. Results & Data Results & Data ([facility]) Vital Signs (Past 12 Hours) Vital Signs Temp Pulse Pulse Resp BP Pulse Ox 04/04/20 19:16 36.4 C L 63 18 142/83 H 94 04/04/20 15:39 36.5 C 62 18 128/84 95 04/04/20 14:54 69 04/04/20 12:54 61 04/04/20 11:34 36.6 C 63 18 125/82 95 Laboratory Results Short CBC 04/04/20 Range/Units 05:48 WBC 5.44 (4.8-10.8) K/uL Hgb 10.1 L (12.0-16.0) g/dL Hct 32.1 L (37-47) % Plt Count 281 (130-400) K/uL BMP 04/04/20 05:48 Sodium 142 Potassium 4.7 Chloride 112 H Carbon Dioxide 27 BUN 10 Creatinine 0.85 Glucose 86 Calcium 8.1 L Diagnostic Findings KUB CLINICAL HISTORY: Nausea. Generalized abdominal pain. FINDINGS: 3 AP, portable, supine abdominal radiographs are compared to study dated 11/20/2018 and correlated with abdominal CT dated 04/02/2020. Cholecystectomy clips are noted in the right upper quadrant. There is a nonobstructed abdominal bowel gas pattern. Residual enteric contrast is noted throughout the colon. This outlines scattered colonic diverticula. Question mild wall thickening of the left colon with loss of normal haustration. No evidence of intraperitoneal free air is seen on these supine images. There are no abnormal abdominal calcifications. The skeletal structures are osteopenic and appear intact. IMPRESSION: 1. Nonobstructed abdominal bowel gas pattern. 2. Question mild wall thickening of the left colon with loss of normal haustration. This is of indeterminant significance. Correlate clinically for rossy dence of a mild nonspecific colitis. Medications Administered Current Inpatient Medications Acetaminophen (Tylenol) 650 mg PO Q4H PRN PRN Reason: Pain or Fever Stop: 05/02/20 22:40 Divalproex Sodium (Depakote Extended Release) 750 mg PO HS DRE Stop: 05/02/20 22:40 Last Admin: 04/03/20 20:33 Dose: 750 mg Documented by: Duloxetine HCl (Cymbalta) 30 mg PO QAM DRE Stop: 05/03/20 08:59 Last Admin: 04/04/20 08:28 Dose: 30 mg Documented by: Enoxaparin Sodium (Lovenox) 40 mg SQ Q24H DRE Stop: 05/03/20 08:59 Last Admin: 04/04/20 08:27 Dose: 40 mg Documented by: Famotidine 20 mg/ Syringe 5 mls @ 2.5 mls/min IV BID DRE Stop: 05/02/20 22:40 Last Admin: 04/04/20 08:26 Dose: 2.5 mls/min Documented by: Fluconazole (Diflucan) 200 mg in 100 mls @ 100 mls/hr IV Q24H DRE; Protocol Stop: 05/03/20 13:29 Last Infusion: 04/04/20 14:41 Dose: Infused Documented by: Promethazine HCl 12.5 mg/ (Sodium Chloride) 50.5 mls @ 202 mls/hr IV Q6H PRN PRN Reason: Nausea And Vomiting Stop: 05/04/20 18:19 Levothyroxine Sodium (Synthroid) 25 mcg PO DAILYBB [facility] Stop: 05/03/20 06:29 Last Admin: 04/04/20 06:02 Dose: 25 mcg Documented by: Lorazepam (Ativan) 0.5 mg PO DAILY PRN PRN Reason: Anxiety Stop: 05/02/20 22:40 Magnesium Oxide (Mag-Ox) 400 mg PO QAM [facility] Stop: 05/03/20 08:59 Last Admin: 04/04/20 08:28 Dose: 400 mg Documented by: Morphine Sulfate (Morphine Sulfate) 3 mg IV Q4H PRN PRN Reason: Pain Stop: 04/16/20 22:40 Last Admin: 04/04/20 19:07 Dose: 3 mg Documented by: Nitroglycerin (Nitrostat) 0.4 mg SL UD PRN PRN Reason: Chest Pain Stop: 05/02/20 22:40 Ondansetron HCl (Zofran) 4 mg IV Q6H PRN PRN Reason: Nausea Stop: 05/02/20 22:40 Last Admin: 04/04/20 13:32 Dose: 4 mg Documented by: Pantoprazole Sodium (Protonix) 40 mg PO BID [facility] Stop: 05/02/20 22:40 Last Admin: 04/04/20 08:28 Dose: 40 mg Documented by: Polyethylene Glycol (Miralax Powder Packet) 17 gm PO DAILY PRN PRN Reason: Constipation Stop: 05/02/20 22:40 Promethazine HCl (Phenergan) 25 mg PO Q8H PRN PRN Reason: Nausea Stop: 05/02/20 22:40 Last Admin: 04/04/20 17:41 Dose: 25 mg Documented by: Propranolol HCl (Inderal La) 60 mg PO QAM [facility] Stop: 05/03/20 08:59 Last Admin: 04/04/20 08:29 Dose: 60 mg Documented by: Sumatriptan Succinate (Imitrex) 50 mg PO UD PRN PRN Reason: Migraine Headache Stop: 05/02/20 22:40 Trazodone HCl (Desyrel) 300 mg PO HS [facility] Stop: 05/02/20 22:40 Last Admin: 04/03/20 20:34 Dose: 300 mg Documented by: Vitamin D (Vitamin D3) 2,000 units PO QAM [facility] Stop: 05/03/20 08:59 Last Admin: 04/04/20 08:27 Dose: 2,000 units Documented by: (1) Migraine Intractability: not intractable Migraine type: unspecified Status migrainosus presence: with status migrainosus Qualified Code(s): G43.901 - Migraine, unspecified, not intractable, with status migrainosus
--- NOTE | 2020-04-04 20:16 | XRay Report ---
KUB CLINICAL HISTORY: Nausea. Generalized abdominal pain. FINDINGS: 3 AP, portable, supine abdominal radiographs are compared to study dated 11/20/2018 and cilf elated with abdominal CT dated 04/02/2020. Cholecystectomy clips are noted in the right upper quadrant . There is a nonobstructed abdominal bowel gas pattern. Residual enteric contrast is noted throughout the colon. This outlines scattered colonic diverticula. Question mild wall thickening of the left co estephania with loss of normal haustration. No evidence of intraperitoneal free air is seen on these supine images. There are no abnormal abdominal calcifications. The skeletal structures are osteopenic and ap pear intact. IMPRESSION: 1. Nonobstructed abdominal bowel gas pattern. 2. Question mild wall thickening of the left colon with loss of normal haustration. This is of indete rminant significance. Correlate clinically for evidence of a mild nonspecific colitis. Electronically signed by: Zander Humphrey M.D. 04/04/2020 8:15 PM
[2020-04-04] MEDS: TRAZODONE HCL 100 MG TAB PO SCH (20:36)
[2020-04-04] MEDS: DIVALPROEX EXTENDED RELEASE 250 MG TABCR PO SCH (20:37)
[2020-04-05] MEDS: SODIUM CHLORIDE 0.9% 1000ML 1,000 ML IV SCH ×3 (03:55→20:16)
[2020-04-05] MEDS: PROMETHAZINE HCL 12.5 MG in SODIUM CHLORIDE 0.9% 50 ML IV PRN ×2 (03:59→14:13)
[2020-04-05] MEDS: LEVOTHYROXINE SODIUM 25 MCG TABLET PO SCH (06:03)
[2020-04-05] MEDS: MoRPHine SULFATE 4 MG/ML 1 ML CARP\\VIAL IV PRN ×3 (06:09→14:17)
[2020-04-05] MEDS: ENOXAPARIN INJ 40 MG/0.4 ML SYR SQ SCH (09:07)
[2020-04-05] MEDS: DULOXETINE HCL 30 MG CAP PO SCH (09:07)
[2020-04-05] MEDS: PANTOprazole 40 MG TAB PO SCH ×2 (09:08→20:18)
[2020-04-05] MEDS: PROPRANOLOL HCL 60 MG LA CAP PO SCH (09:09)
--- NOTE | 2020-04-05 12:55 | Gastroenterology Progress Note ---
Date of Service April 05, 2020 Assessment & Plan Admission and Anticipated Discharge Date Admission Date: April 02, 2020 Results & Data ([facility]) Vital Signs (Past 12 Hours) Vital Signs Temp Pulse Pulse Resp BP Pulse Ox 04/05/20 09:09 64 04/05/20 07:36 36.4 C L 58 L 20 122/77 96
--- NOTE | 2020-04-05 12:55 | Gastroenterology Progress Note ---
Date of Service April 05, 2020 Assessment & Plan Admission and Anticipated Discharge Date Admission Date: April 02, 2020 Results & Data ([facility]) Vital Signs (Past 12 Hours) Vital Signs Temp Pulse Pulse Resp BP Pulse Ox 04/05/20 09:09 64 04/05/20 07:36 36.4 C L 58 L 20 122/77 96
--- NOTE | 2020-04-05 12:59 | Gastrointestinal Consultation ---
Date of Consultation April 05, 2020 Assessment & Plan (1) Left sided abdominal pain: Her nausea vomiting and diarrhea could possibly have been related to antibiotics use last week. Her current abdominal/left lower posterior chest and mid back pain may be musculoskeletal vs. IBS or adhesive disease. No significant abnormalities on recent EGD in November, labs or CT scans in the past week suggest that repeating endoscopy or imaging would likely be low yield. Plan: Patient is interested in eating, will try regular consistency diet, trial of dicyclomine and continue to follow symptoms. This patient was seen and examined with Dr. Irwin Márquez who developed and directed the above plan of care. Present on Admission?: Yes Supervising Physician Co-Signing Physician Notes I have personally seen and examined the patient with LISA Chris on 04/05/2020. Her note reflects my exam and findings. I agree with her impression and plan. Trial of slowly advancing diet. Irwin Márquez M.D. History of Present Illness Reason for Consultation: s/p gastric bypass, sev nausea/abd pain, ?etiology Requesting Physician: Ddr. Peña Attending Physician: Vanesa Peña, DO History of Present Illness Ms. Gladis Link is a 55 yr old female pt of Dr. Douglas with a hx of obesity S/P RYGBin 2009. She presented to the emergency department 2 times this week both for left mid to left lower quadrant abdominal pain radiating around the left side to her back. Currently today she tells me the pain is in the left mid back area and in fact is a bit more tender on palpation of the left posterior lower ribs than elsewhere. She denies any change in symptoms with eating or defecation. She has had multiple episodes of nausea vomiting and diarrhea. Specifically, she reports 4-5 episodes of diarrhea on Sunday though no bowel movement since that time. She also reports 2 episodes of vomiting on Sunday. Bowel movements on Sunday where blood-tinged and there was bright red blood on the toilet paper. She also had some chills on Sunday and Sunday. Since arrival here, she has not had a bowel movement and her nausea and vomiting are much improved. However the pain continues. CT of the abdomen and pelvis with IV but no oral contrast on 03/31 and 04/02 without any acute changes. She has been afebrile without leukocytosis. Most recent EGD in November [address] Freeman for epigastric pain and prior EGD December [address] Elmore also for epigastric pain without abnormalities. A colonoscopy in 2009 showed internal hemorrhoids and diverticulosis, no polyps. Allergies Allergy/AdvReac Type Severity Reaction Status Date / Time oxycodone Allergy Intermediate Hives Verified 04/02/20 19:08 piperacillin Allergy Intermediate Pruritus Verified 04/02/20 19:08 tazobactam Allergy Intermediate Pruritus Verified 04/02/20 19:08 ketorolac Allergy Mild Itching Verified 04/02/20 19:08 vancomycin AdvReac Unknown deathly ill Verified 04/02/20 19:08 Home Medications Home Medications Medication Instructions Recorded Confirmed Type ergocalciferol (vitamin D2) 50,000 units PO 2XWK 07/17/18 04/02/20 History [Vitamin D2] levothyroxine [Synthroid] 25 mcg PO QAM 07/17/18 04/02/20 History magnesium oxide 400 mg PO QAM 07/17/18 04/02/20 History pantoprazole [Protonix] 40 mg PO BID 07/17/18 04/02/20 History promethazine 25 mg PO Q8H PRN 07/17/18 04/02/20 History sumatriptan succinate [Imitrex] 50 mg PO DIRECTED PRN 07/17/18 04/02/20 History duloxetine 30 mg PO QAM 11/17/18 04/02/20 History lorazepam [Ativan] 0.5 mg PO DAILY PRN 11/17/18 04/02/20 History divalproex [Depakote ER] 750 mg PO HS 11/06/19 04/02/20 History trazodone 300 mg PO HS 11/06/19 04/02/20 History cholecalciferol (vitamin D3) 2,000 unit PO QAM 03/31/20 04/02/20 History [Vitamin D3] fremanezumab-vfrm [Ajovy 225 mg SUBCUT MONTHLY 03/31/20 04/02/20 History Autoinjector] propranolol [Inderal LA] 60 mg PO QAM 03/31/20 04/02/20 History Patient History Medical History Clostridium difficile colitis (Resolved) Depression (Chronic) Edema (Chronic) GERD (gastroesophageal reflux disease) (Chronic) History of DVT (deep vein thrombosis) (Resolved) History of pulmonary embolism (Resolved) "completed 6 months Coumadin therapy" On 06/27/16 17:03 Nuha Zarate wrote On 03/23/16 16:22 Dottie Eladia wrote "2000 per patient; s/p knee replacement" MINI (iron deficiency anemia) (Chronic) Psoriatic arthritis (Chronic) Sleep apnea (Chronic) Vertigo (Chronic) Surgical History H/O wisdom tooth extraction (Resolved) History of appendectomy (Resolved) History of carpal tunnel surgery (Resolved) History of cholecystectomy (Resolved) S/P hysterectomy (Resolved) Status post appendectomy (Resolved) Status post cholecystectomy (Resolved) Status post gastric bypass for obesity (Resolved) Status post total knee replacement (Resolved) Social History Smoking Status: Never smoker Hx Alcohol Use: No Hx Substance Use: No Preferred Language: [place] Communication Ability: Effective Vest Baster Required: No Beliefs That Will Affect Care: None marital status: Current Living Situation: Family Feels Safe at Home: Yes Review of Systems Review of Systems: ROS: Gen: Denies weakness, fevers, weight loss Eyes: No eye redness, or pain, no recent vision changes Resp: No SOB, no cough Cardio: No palpitations/irregular beats, no chest pain GI: Per HPI, otherwise (-) : Denies pain on urination Skin: No jaundice, itching or new rashes Physical Exam Constitutional: WD/WN, vitals as above Eyes: PERRL, conjunctivae normal, anicteric sclerae ENMT: external ear and nose normal, oropharynx normal Neck: trachea midline, no thyromegaly Respiratory: normal respiratory effort, lungs clear to auscultation Cardiovascular: RRR, no murmur, no edema Gastrointestinal (Abdomen): Inspection/Auscultation: abdomen normal to inspection; abdomen not distended Percussion/Palpation: abdomen soft Mild left mid and left lower abdomen tenderness with palpation, mild left lower rib tenderness posteriorly Results & Data ([facility]) Vital Signs (Past 12 Hours) Vital Signs Temp Pulse Pulse Resp BP Pulse Ox 04/05/20 09:09 64 04/05/20 07:36 36.4 C L 58 L 20 122/77 96 Laboratory Results WBC 5, hemoglobin 10, platelets 281, sodium 142, potassium 4.7, BUN 10, creatinine 0.8, glucose [address] 04/02: here is no airspace consolidation or pleural effusion. 2. There are no acute infectious or inflammatory findings in the abdomen or pelvis. No change from study performed 2 days previously. 3. There is postoperative change consistent with a history of Neel-en-Y gastric bypass surgery. No bowel obstruction is seen. 4. Mild colonic diverticulosis without CT evidence of acute diverticulitis. 5. Additional findings as above.
--- NOTE | 2020-04-05 13:12 | Electrocardiogram Report ---
Test Reason : Blood Pressure : / mmHG Vent. Rate : 059 BPM Atrial Rate : 059 BPM P-R Int : 182 ms QRS Dur : 084 ms QT Int : 402 ms P-R-T Axes : 022 -02 038 degrees QTc Int : 397 ms Sinus bradycardia Inferior infarct (cited on or before 04-JAN-2017) Anterior infarct (cited on or before 04-JAN-2017) Abnormal ECG When compared with ECG of 02-APR-2020 16:14, No significant change was found Confirmed by Ankur Wilks ([id number]) on 04/05/2020 1:11:41 PM Referred By: Richi Sutton Confirmed By:Anukr Wilks
--- NOTE | 2020-04-05 13:48 | Electrocardiogram Report ---
Test Reason : Blood Pressure : / mmHG Vent. Rate : 061 BPM Atrial Rate : 061 BPM P-R Int : 186 ms QRS Dur : 082 ms QT Int : 384 ms P-R-T Axes : 059 049 065 degrees QTc Int : 386 ms Normal sinus rhythm Low voltage QRS Cannot rule out Anteroseptal infarct (cited on or before 04-JAN-2017) Abnormal ECG When compared with ECG of 03-APR-2020 06:35, (unconfirmed) Criteria for Inferior infarct are no longer Present Questionable change in initial forces of Septal leads Confirmed by Ankur Wilks ([id number]) on 04/05/2020 1:48:12 PM Referred By: Richi Sutton Confirmed By:Ankur Wilks
--- NOTE | 2020-04-05 13:49 | Hospitalist Progress Note ---
Date of Service April 05, 2020 Assessment & Plan (1) Diffuse abdominal pain: Likely related to decreased GI motility as pain and nausea are provoked by food. GI team recommended eating smaller more frequent meals. Diarrhea has resolved and may have exacerbated the issue. No blood per rectum and no vomiting. Nausea is controlled with phenergan. CT abd/pelvis reveals no evidence of obstruction, free air, colitis or clear cause of her acute symptoms. She is a gastric bypass patient, who denies any post-surgical complications in the past. Cont supportive care efforts. (2) GERD (gastroesophageal reflux disease): cont home protonix, stopped scheduled pepcid started as inpatient as this was ineffective. (3) Hypothyroidism: Cont Synthroid per home regimen. (4) Depression: stable, cont duloxetine per home regimen. (5) Yeast infection involving the vagina and surrounding area: resolved with Diflucan treatment. (6) MINI (iron deficiency anemia): H/H around baseline for the last 6 months. Will review outpatient records for recent iron studies. (7) Psoriatic arthritis: per [facility]. (8) Migraine: Continues on propranolol for migraine prophylaxis. Takes sumatriptan, fremanezumab as needed. Currently she is headache-free. (9) DVT prophylaxis: Lovenox Full Code Dispo-to home when clinically improved. Vanesa Peña DO [facility] Hospitalist Admission and Anticipated Discharge Date Admission Date: April 02, 2020 Subjective still reports nausea and severe pain with food. Continues to require antiemetics and narcotics. Review of Systems 2 Review of Systems: All systems reviewed & are unremarkable except as noted in Subjective Physical Exam Physical Exam: CONSTITUTIONAL: obese, vitals as above, generally appears guarded and nauseous EYES: normal conjunctivae, no scleral icterus ENT: external ear and nose normal, MMM RESPIRATORY: clear to auscultation bilaterally, no crackles, rales or wheezes, normal respiratory effort CARDIOVASCULAR: regular rate and rhythm, S1 and 2 heard without murmurs, gallops or rubs, no JVD, no peripheral edema GASTROINTESTINAL: normal bowel sounds, soft, TTP diffusely with severe pain in epigastric region, no guarding MUSCULOSKELETAL: strength 5/5 throughout, head is normocephalic and atraumatic SKIN: warm and dry NEUROLOGIC: CN 2-12 grossly intact, normal cognition, normal speech, no tremor, no gross focal deficits. PSYCHIATRIC: alert cooperative and oriented to person, place and time. Results & Data Results & Data ([facility]) Vital Signs (Past 12 Hours) Vital Signs Temp Pulse Pulse Resp BP Pulse Ox 04/05/20 09:09 64 04/05/20 07:36 36.4 C L 58 L 20 122/77 96 Medications Administered Current Inpatient Medications Acetaminophen (Tylenol) 650 mg PO Q4H PRN PRN Reason: Pain or Fever Stop: 05/02/20 22:40 Dicyclomine HCl (Bentyl) 10 mg PO AC DRE Stop: 05/05/20 16:29 Divalproex Sodium (Depakote Extended Release) 750 mg PO HS DRE Stop: 05/02/20 22:40 Last Admin: 04/04/20 20:37 Dose: 750 mg Documented by: Duloxetine HCl (Cymbalta) 30 mg PO QAM DRE Stop: 05/03/20 08:59 Last Admin: 04/05/20 09:07 Dose: 30 mg Documented by: Enoxaparin Sodium (Lovenox) 40 mg SQ Q24H DRE Stop: 05/03/20 08:59 Last Admin: 04/05/20 09:07 Dose: 40 mg Documented by: Promethazine HCl 12.5 mg/ (Sodium Chloride) 50.5 mls @ 202 mls/hr IV Q6H PRN PRN Reason: Nausea And Vomiting Stop: 05/04/20 18:19 Last Infusion: 04/05/20 05:19 Dose: Infused Documented by: Sodium Chloride (Nss 1000ml) 1,000 mls @ 125 mls/hr IV .Q8H DRE Stop: 05/04/20 19:44 Last Admin: 04/05/20 12:09 Dose: 125 mls/hr Documented by: Levothyroxine Sodium (Synthroid) 25 mcg PO DAILYBB DRE Stop: 05/03/20 06:29 Last Admin: 04/05/20 06:03 Dose: 25 mcg Documented by: Lorazepam (Ativan) 0.5 mg PO DAILY PRN PRN Reason: Anxiety Stop: 05/02/20 22:40 Magnesium Oxide (Mag-Ox) 400 mg PO QAM DRE Stop: 05/03/20 08:59 Last Admin: 04/04/20 08:28 Dose: 400 mg Documented by: Morphine Sulfate (Morphine Sulfate) 3 mg IV Q4H PRN PRN Reason: Pain Stop: 04/16/20 22:40 Last Admin: 04/05/20 10:13 Dose: 3 mg Documented by: Nitroglycerin (Nitrostat) 0.4 mg SL UD PRN PRN Reason: Chest Pain Stop: 05/02/20 22:40 Ondansetron HCl (Zofran) 4 mg IV Q6H PRN PRN Reason: Nausea Stop: 05/02/20 22:40 Last Admin: 04/04/20 13:32 Dose: 4 mg Documented by: Pantoprazole Sodium (Protonix) 40 mg PO BID DRE Stop: 05/02/20 22:40 Last Admin: 04/05/20 09:08 Dose: 40 mg Documented by: Polyethylene Glycol (Miralax Powder Packet) 17 gm PO DAILY PRN PRN Reason: Constipation Stop: 05/02/20 22:40 Promethazine HCl (Phenergan) 25 mg PO Q8H PRN PRN Reason: Nausea Stop: 05/02/20 22:40 Last Admin: 04/04/20 17:41 Dose: 25 mg Documented by: Propranolol HCl (Inderal La) 60 mg PO QAM [facility] Stop: 05/03/20 08:59 Last Admin: 04/05/20 09:09 Dose: 60 mg Documented by: Sumatriptan Succinate (Imitrex) 50 mg PO UD PRN PRN Reason: Migraine Headache Stop: 05/02/20 22:40 Trazodone HCl (Desyrel) 300 mg PO HS [facility] Stop: 05/02/20 22:40 Last Admin: 04/04/20 20:36 Dose: 300 mg Documented by: Vitamin D (Vitamin D3) 2,000 units PO QAM [facility] Stop: 05/03/20 08:59 Last Admin: 04/04/20 08:27 Dose: 2,000 units Documented by: (1) Migraine Intractability: not intractable Migraine type: unspecified Status migrainosus presence: with status migrainosus Qualified Code(s): G43.901 - Migraine, unspecified, not intractable, with status migrainosus
[2020-04-05] MEDS: DICYCLOMINE HCL 10 MG CAP PO SCH (17:00)
[2020-04-05] MEDS: DIVALPROEX EXTENDED RELEASE 250 MG TABCR PO SCH (20:17)
[2020-04-05] MEDS: TRAZODONE HCL 100 MG TAB PO SCH (20:18)
[2020-04-06] MEDS: ONDANSETRON INJ 2 MG/ML 2 ML VIAL IV PRN ×3 (03:02→19:39)
[2020-04-06] MEDS: MoRPHine SULFATE 4 MG/ML 1 ML CARP\\VIAL IV PRN ×3 (03:02→13:25)
[2020-04-06] MEDS: SODIUM CHLORIDE 0.9% 1000ML 1,000 ML IV SCH ×2 (04:10→11:25)
[2020-04-06] MEDS: PROMETHAZINE HCL 12.5 MG in SODIUM CHLORIDE 0.9% 50 ML IV PRN ×2 (04:38→11:51)
[2020-04-06] MEDS: LEVOTHYROXINE SODIUM 25 MCG TABLET PO SCH (05:48)
[2020-04-06 07:10] LABS: Hematocrit (blood only) 30.8 % (37-47); Mean Corpuscular Hemoglobin 26.1 pg (25-34); Mean Corpuscular Hgb Conc 32.5 g/dL (32-36); Mean Corpuscular Volume 80.4 fL (80-100); Mean Platelet Volume 8.9 fL (7.4-10.4); Platelet Count 263 K/uL (130-400); RDW Standard Deviation 47.1 fL (36.4-46.3); Red Blood Count 3.83 M/uL (4.2-5.4)
[2020-04-06] MEDS: DICYCLOMINE HCL 10 MG CAP PO SCH ×3 (07:24→16:15)
[2020-04-06] MEDS: PANTOprazole 40 MG TAB PO SCH ×2 (07:26→22:19)
[2020-04-06] MEDS: DULOXETINE HCL 30 MG CAP PO SCH (07:26)
[2020-04-06] MEDS: ENOXAPARIN INJ 40 MG/0.4 ML SYR SQ SCH (07:26)
[2020-04-06 07:42] LABS: Albumin Level 2.7 gm/dl (3.4-5.0); C Reactive Protein 0.46 mg/dl (0-0.29); Calcium 7.9 mg/dl (8.5-10.1); Creatinine Clr Calc Pharmacy 91.7 ml/min; Est GFR (African American) 92.1; Est GFR (Non-African American) 79.4; Magnesium 2.2 mg/dl (1.8-2.4); Potassium 4.3 mmol/L (3.5-5.1)
[2020-04-06 07:45] LABS: Bilirubin,Total 0.2 mg/dl (0.2-1); Globulin 2.7 gm/dl (2.5-4.0); Total Protein 5.4 gm/dl (6.4-8.2)
[2020-04-06] MEDS: PROPRANOLOL HCL 60 MG LA CAP PO SCH (09:03)
--- NOTE | 2020-04-06 10:37 | Gastroenterology Progress Note ---
Date of Service April 06, 2020 Assessment & Plan (1) Left sided abdominal pain: Her vomiting and left sided abdomen pain are likely secondary to poor GI motility and possibly adhesive disease post RYGB. Acute symptoms may have been agrivated by recent antibiotic use. Diarrhea seems to have resolved. 1. Dicyclomine 10mg QID ac/hs. 2. Minimize narcotic use as they slow motility. 3. Antiemetics. 4. Slower advancing of diet. Very small meals, Eat slowly. Present on Admission?: Yes (2) Nausea: See above. Present on Admission?: Yes Admission and Anticipated Discharge Date Admission Date: April 02, 2020 Supervising Physician Co-Signing Physician Notes I have personally seen and examined the patient with LISA Chris. Her note reflects my exam and findings. I agree with her impression and plan. Patie nt wants to go home. Slow advancement of diet. Irwin Márquez M.D. Subjective Ms. Gladis Ariza is a 55 yr old female who is S/P RYGB. Admitted for left sided abdomen and back pain. Yesterday she felt better and wanted to try eating. However after eating a regular consistency diet, she had severe nausea and worsened left-sided abdomen pain. Currently rating her left-sided abdomen pain is a 6 of 10. Denies any current nausea and has tolerated a full liquid diet well. Most recent EGD November [address] with IV no oral contrast on 03/31/2020 and 04/02/2020 without significant abnormality status post Neel-en-Y gastric bypass. Review of Systems Review of Systems: ROS: Gen: Denies weakness, fevers, weight loss Eyes: No eye redness, or pain, no recent vision changes Resp: No SOB, no cough Cardio: No palpitations/irregular beats, no chest pain GI: as per HPI, otherwise normal : Denies pain on urination Skin: No jaundice, itching or new rashes Physical Exam Constitutional: WD/WN, vitals as above Eyes: PERRL, conjunctivae normal, anicteric sclerae ENMT: external ear and nose normal, oropharynx normal Neck: trachea midline, no thyromegaly Respiratory: normal respiratory effort, lungs clear to auscultation Cardiovascular: RRR, no murmur, no edema Gastrointestinal (Abdomen): Inspection/Auscultation: abdomen normal to inspection; abdomen not distended Percussion/Palpation: + abdomen tender (moderate LUQ and LLQ tenderness) and abdomen soft Musculoskeletal: no cyanosis or clubbing, extremities motor strength 5/5 Skin: no rashes, warm and dry Neurologic: PERRL, EOMI, accommodation nl, no face palsy, no dysarthria Psychiatric: A+Ox3, euthymic affect pleasant, smiling Results & Data ([facility]) Vital Signs (Past 12 Hours) Vital Signs Temp Pulse Pulse Resp BP BP Pulse Ox 04/06/20 08:09 36.5 C 67 18 136/86 90 04/06/20 07:01 36.9 C 55 L 17 110/67 94 04/05/20 23:26 36.9 C 61 19 112/72 93
[2020-04-06] MEDS: ACETAMINOPHEN 500 MG TAB PO SCH (16:15)
--- NOTE | 2020-04-06 19:31 | Hospitalist Progress Note ---
Date of Service April 06, 2020 Assessment & Plan (1) Diffuse abdominal pain: Likely related to decreased GI motility as pain and nausea are promted by food. She is improved since GI team recommended eating smaller more frequent meals. Diarrhea has resolved and may have exacerbated the issue. No blood per rectum and no vomiting. Nausea is controlled with phenergan. CT abd/pelvis reveals no evidence of obstruction, free air, colitis or clear cause of her acute symptoms. She is a gastric bypass patient, who denies any post-surgical complications in the past. Cont supportive care efforts. (2) GERD (gastroesophageal reflux disease): Cont protonix per home regimen. (3) Hypothyroidism: Cont Synthroid per home regimen. (4) Depression: stable, cont duloxetine per home regimen. (5) Yeast infection involving the vagina and surrounding area: resolved with Diflucan treatment. (6) MINI (iron deficiency anemia): H/H around baseline for the last 6 months. Follow up with PCP. (7) Psoriatic arthritis: per [facility]. (8) Migraine: Continues on propranolol for migraine prophylaxis. Takes sumatriptan, fremanezumab as needed. Currently she is headache-free. (9) DVT prophylaxis: Lovenox Full Code Dispo-to home when clinically improved and tolerating PO reliably. Vanesa Peña DO [facility] Hospitalist Admission and Anticipated Discharge Date Admission Date: April 02, 2020 Subjective somewhat better today however, still reporting nausea and pain with eating. ambulating Review of Systems Review of Systems: All systems reviewed & are unremarkable except as noted in Subjective Physical Exam Physical Exam: CONSTITUTIONAL: obese, vitals as above, generally appears guarded and nauseous EYES: normal conjunctivae, no scleral icterus ENT: external ear and nose normal, oropharynx clear, MMM RESPIRATORY: clear to auscultation bilaterally, no crackles, rales or wheezes, normal respiratory effort CARDIOVASCULAR: regular rate and rhythm, S1 and 2 heard without murmurs, gallops or rubs, no JVD, no peripheral edema GASTROINTESTINAL: normal bowel sounds, soft, TTP diffusely with pain in RUQ and epigastric region, improved from yesterday MUSCULOSKELETAL: strength 5/5 throughout, head is normocephalic and atraumatic SKIN: warm and dry NEUROLOGIC: CN 2-12 grossly intact, normal cognition, normal speech, no tremor, no gross focal deficits. PSYCHIATRIC: alert cooperative and oriented to person, place and time. Results & Data Results & Data ([facility]) Vital Signs (Past 12 Hours) Vital Signs Temp Pulse Resp BP BP Pulse Ox 04/06/20 15:30 36.4 C L 54 L 16 115/73 90 04/06/20 08:09 36.5 C 67 18 136/86 90 Laboratory Results Short CBC 04/06/20 Range/Units 06:52 WBC 5.50 (4.8-10.8) K/uL Hgb 10.0 L (12.0-16.0) g/dL Hct 30.8 L (37-47) % Plt Count 263 (130-400) K/uL BMP 04/06/20 06:52 Sodium 143 Potassium 4.3 Chloride 111 H Carbon Dioxide 27 BUN 8 Creatinine 0.82 Glucose 82 Calcium 7.9 L Liver Function 04/06/20 Range/Units 06:52 Total Bilirubin 0.2 (0.2-1) mg/dl AST 14 L (15-37) U/L ALT 46 (12-78) U/L Alkaline Phosphatase 113 (45-117) U/L Albumin 2.7 L (3.4-5.0) gm/dl Medications Administered Current Inpatient Medications Acetaminophen (Tylenol) 1,000 mg PO Q8 DRE Stop: 05/06/20 15:59 Last Admin: 04/06/20 16:15 Dose: 1,000 mg Documented by: Acetaminophen (Tylenol) 1,000 mg PO TODAY@2200 DRE Stop: 04/06/20 23:59 Dicyclomine HCl (Bentyl) 10 mg PO AC DRE Stop: 05/05/20 16:29 Last Admin: 04/06/20 16:15 Dose: 10 mg Documented by: Divalproex Sodium (Depakote Extended Release) 750 mg PO HS DRE Stop: 05/02/20 22:40 Last Admin: 04/05/20 20:17 Dose: 750 mg Documented by: Duloxetine HCl (Cymbalta) 30 mg PO QAM DRE Stop: 05/03/20 08:59 Last Admin: 04/06/20 07:26 Dose: 30 mg Documented by: Enoxaparin Sodium (Lovenox) 40 mg SQ Q24H DRE Stop: 05/03/20 08:59 Last Admin: 04/06/20 07:26 Dose: 40 mg Documented by: Hydromorphone HCl (Dilaudid) 2 mg PO Q8H PRN PRN Reason: Severe Pain Stop: 04/20/20 15:42 Promethazine HCl 12.5 mg/ (Sodium Chloride) 50.5 mls @ 202 mls/hr IV Q6H PRN PRN Reason: Nausea And Vomiting Stop: 05/04/20 18:19 Last Infusion: 04/06/20 12:16 Dose: Infused Documented by: Levothyroxine Sodium (Synthroid) 25 mcg PO DAILYBB [facility] Stop: 05/03/20 06:29 Last Admin: 04/06/20 05:48 Dose: 25 mcg Documented by: Lorazepam (Ativan) 0.5 mg PO DAILY PRN PRN Reason: Anxiety Stop: 05/02/20 22:40 Magnesium Oxide (Mag-Ox) [facility] Stop: 05/03/20 08:59 Last Admin: 04/04/20 08:28 Dose: 400 mg Documented by: Nitroglycerin (Nitrostat) 0.4 mg SL UD PRN PRN Reason: Chest Pain Stop: 05/02/20 22:40 Ondansetron HCl (Zofran) 4 mg IV Q6H PRN PRN Reason: Nausea Stop: 05/02/20 22:40 Last Admin: 04/06/20 13:25 Dose: 4 mg Documented by: Pantoprazole Sodium (Protonix) 40 mg PO BID [facility] Stop: 05/02/20 22:40 Last Admin: 04/06/20 07:26 Dose: 40 mg Documented by: Polyethylene Glycol (Miralax Powder Packet) 17 gm PO DAILY PRN PRN Reason: Constipation Stop: 05/02/20 22:40 Promethazine HCl (Phenergan) 25 mg PO Q8H PRN PRN Reason: Nausea Stop: 05/02/20 22:40 Last Admin: 04/04/20 17:41 Dose: 25 mg Documented by: Propranolol HCl (Inderal La) 60 [facility] Stop: 05/03/20 08:59 Last Admin: 04/06/20 09:03 Dose: 60 mg Documented by: Sumatriptan Succinate (Imitrex) 50 mg PO UD PRN PRN Reason: Migraine Headache Stop: 05/02/20 22:40 Trazodone HCl (Desyrel) 300 mg PO HS [facility] Stop: 05/02/20 22:40 Last Admin: 04/05/20 20:18 Dose: 300 mg Documented by: Vitamin D (Vitamin D3) 2,000 units PO QAM [facility] Stop: 05/03/20 08:59 Last Admin: 04/04/20 08:27 Dose: 2,000 units Documented by: (1) Migraine Intractability: not intractable Migraine type: unspecified Status migrainosus presence: with status migrainosus Qualified Code(s): G43.901 - Migraine, unspecified, not intractable, with status migrainosus
[2020-04-06] MEDS: HYDROmorphone HCL 2 MG TAB PO PRN (19:38)
[2020-04-06] MEDS ORDERED: ACETAMINOPHEN 500 MG TAB PO SCH (22:00)
[2020-04-06] MEDS: DIVALPROEX EXTENDED RELEASE 250 MG TABCR PO SCH (22:18)
[2020-04-06] MEDS: TRAZODONE HCL 100 MG TAB PO SCH (22:19)
[2020-04-06] MEDS ORDERED: SODIUM CHLORIDE 0.9% 500 ML IV SCH (23:45)
[2020-04-07 00:10] LABS: Base Excess ABG -1.7 mEq/L (-9-1.8); HCO3 ABG 24 mmol/L (19-24); Oxygen Saturation ABG 92.8 % (90-95); PCO2 ABG 48 mmHg (35-46); PO2 ABG 73 mmHg (80-95); pH ABG 7.32 (7.35-7.45)
[2020-04-07 00:11] LABS: Allen Test Pos (Pos)
[2020-04-07] MEDS ORDERED: SODIUM CHLORIDE 0.9% 500 ML IV SCH (01:00)
[2020-04-07] MEDS ORDERED: NALOXONE HCL 0.4 MG/1 ML VIAL/CARP IV STA (03:18)
[2020-04-07] MEDS: ACETAMINOPHEN 500 MG TAB PO SCH ×2 (05:36→13:16)
[2020-04-07] MEDS: LEVOTHYROXINE SODIUM 25 MCG TABLET PO SCH (05:36)
[2020-04-07] MEDS: DICYCLOMINE HCL 10 MG CAP PO SCH ×3 (08:25→16:08)
[2020-04-07] MEDS: PROPRANOLOL HCL 60 MG LA CAP PO SCH (10:27)
[2020-04-07] MEDS: DULOXETINE HCL 30 MG CAP PO SCH (10:27)
[2020-04-07] MEDS: PANTOprazole 40 MG TAB PO SCH (10:27)
[2020-04-07] MEDS: ENOXAPARIN INJ 40 MG/0.4 ML SYR SQ SCH (10:28)
[2020-04-07] MEDS: HYDROmorphone HCL 2 MG TAB PO PRN (10:31)
[2020-04-07] MEDS: PROMETHAZINE HCL 12.5 MG in SODIUM CHLORIDE 0.9% 50 ML IV PRN ×2 (10:59→17:30)
--- NOTE | 2020-04-07 17:55 | Discharge Summary ---
Date of Service April 07, 2020 Admission HPI Per Admitting Provider HISTORY OF PRESENT ILLNESS: A 55-year-old female with past medical history significant for prediabetes, hypothyroidism, GERD, status post gastric bypass surgeries post-gastric surgery syndrome, migraines, iron deficiency anemia, psoriatic arthropathy, depression, generalized edema, history of pulmonary embolism, completed 6 months of anticoagulation, history of C. diff, presents with ongoing abdominal pain since last 5 days. The patient was in the ER a couple of days ago with abdominal pain and at that time it was thought to be from vaginal yeast infection and CT abdomen did not suggest any acute process. She was discharged to home, but the patient says since then belly pain got worse in the epigastric region, also some dry heaves and she also had developed some chest discomfort, there is some dry cough and shortness of breath and she feels chills since last night. Denies any fevers, no vomiting, no diarrhea or constipation. The patient says she also a couple of episodes of blood in the urine, no burning micturition. Appetite is not that great. Has some mild headache, complaints of dizziness, no earache, no runny nose, no sore throat, no difficulty swallowing. She gets swelling in the legs on and off, she has mild swelling now. Lives with her . Currently resting comfortably and hemodynamically stable. Admission Exam Per Admitting Provider GENERAL: The patient is obese, not in acute distress. VITAL SIGNS: Temperature 37.4, pulse 77, respiratory rate 19, blood pressure 108/70, oxygen 93% on room air. HEENT: No pallor, no scleral icterus. Extraocular muscles intact. Pupils equal, round, reactive to light. NECK: No JVD, no neck masses. Supple. CARDIOVASCULAR: S1, S2 heard, regular rate and rhythm, no murmur, no gallop. RESPIRATORY SYSTEM: Normal AP diameter. No accessory muscle use. No wheezing, no crackles. ABDOMEN: Soft, bowel sounds present. Mild abdominal discomfort in the epigastric region, mild guarding, no rigidity. No distention. CENTRAL NERVOUS SYSTEM: Cranial nerves II-XII grossly intact. Nonfocal. EXTREMITIES: No edema, no erythema. Principal Diagnosis Abdominal pain 2/2 decreased gut motility s/p RYGB possibly aggravated by antibiotic therapy Discharge Exam CONSTITUTIONAL: obese, vitals as above, generally appears improved EYES: normal conjunctivae, no scleral icterus ENT: external ear and nose normal, MMM RESPIRATORY: clear to auscultation bilaterally, no crackles, rales or wheezes, normal respiratory effort CARDIOVASCULAR: regular rate and rhythm, S1 and 2 heard without murmurs, gallops or rubs, no JVD, no peripheral edema GASTROINTESTINAL: normal bowel sounds, soft, slight pain in RUQ and epigastric area (just after lunch) which is much improved from yesterday MUSCULOSKELETAL: strength 5/5 throughout, head is normocephalic and atraumatic SKIN: warm and dry NEUROLOGIC: CN 2-12 grossly intact, normal cognition, normal speech, no tremor, no gross focal deficits. PSYCHIATRIC: alert cooperative and oriented to person, place and time. Discharge Data Allergies Allergy/AdvReac Type Severity Reaction Status Date / Time oxycodone Allergy Intermediate Hives Verified 04/02/20 19:08 piperacillin Allergy Intermediate Pruritus Verified 04/02/20 19:08 tazobactam Allergy Intermediate Pruritus Verified 04/02/20 19:08 ketorolac Allergy Mild Itching Verified 04/02/20 19:08 vancomycin AdvReac Unknown deathly ill Verified 04/02/20 19:08 Consultations 04/02/20 18:29 ED Decision to Admit Stat 04/02/20 22:41 Consult Case Management - Discharge Planning Routine 04/04/20 19:33 Consult Gastroenterology Routine Ordered Studies 04/02/20 15:50 CT abd pelvis oral and IV con Stat 04/02/20 18:30 CT chest w con Stat Hospital Course (1) Diffuse abdominal pain: Likely related to decreased GI motility as pain and nausea are prompted by food. She is improved since GI team recommended eating smaller more frequent meals and added scheduled Bentyl. Diarrhea has resolved and may have exacerbated the issue early during the admission. No blood per rectum and no vomiting. Nausea is controlled with phenergan. CT abd/pelvis reveals no evidence of obstruction, free air, colitis or clear cause of acute symptoms. She is a gastric bypass patient, who denies any post-surgical complications in the past. Cont supportive care efforts at home. She was counseled to restrict the use of narcotics which will contribute to GI dysmotility. She verbalized understanding with intent to comply. At time of discharge she was hemodynamically stable and afebrile and tolerating PO. She was discharged in stable condition with close primary care follow-up recommended. Total Time Total Time Spent Total Time Spent (In Minutes): 60 Total Time Includes: Examination of the Patient, Discharge Planning, Medication Reconciliation and Communication With Other Providers Discharge Plan Discharge Items Patient Disposition: Home - Self-Care Reason For Visit: ABDOMINAL PAIN Discharge Diagnosis: Abdominal pain 2/2 decreased gut motility s/p RYGB possibly aggravated by antibiotic therapy Condition on Discharge: Good Activity: Resume your previous activity Non-emergency contact: Primary Care Provider Call non-emergency contact if: you have any medication questions, your symptoms worsen, your pain is not controlled, your pain is worsening, your pain is unusual for you, your pain is concerning for you and you have a fever Follow-up/Referrals: Richi Sutton, [Primary Care Provider] - Diet: Carb Consistent or DM2 Addtl Attending Provider Instructions: Please take all medications as instructed on discharge list below. Please follow-up with [facility]enterology as needed for continued symptoms. It is recommended that you follow-up with your primary care provider (PCP) in 1- 2 weeks of hospital discharge to ensure you are still doing well on the current drug regimen. Your abdominal symptoms appear to be secondary to poor gut motility and possibly adhesive disease post gastric bypass. Acute symptoms may have been aggravated by recent antibiotic use. It was a pleasure taking care of you! Please call if you have any questions or problems. You can reach a [facility] hospitalist on duty at [facility] 24 hours a day by calling [phone]. Take care of yourself. Vanesa Peña, [facility] Hospitalist Pending Studies at Discharge: No Stand-Alone Forms: My [facility], Smoking Cessation Medications and DC Order Prescriptions: New dicyclomine 10 mg Capsule 10 mg PO AC PRN (Reason: abdominal discomfort) Qty: 60 RF: 1 hydromorphone 2 mg Tablet 2 mg PO Q8H PRN (Reason: severe pain) Qty: 10 RF: 0 promethazine 25 mg tablet 25 mg PO TID PRN (Reason: nausea and vomiting) Qty: 20 RF: 0 Continued sumatriptan succinate [Imitrex] 50 mg Tablet 50 mg PO DIRECTED PRN (Reason: Migraine Headache) RF: 0 levothyroxine [Synthroid] 25 mcg Tablet 25 mcg PO QAM RF: 0 pantoprazole [Protonix] 40 mg Tablet,Delayed Release (Dr/Ec) 40 mg PO BID RF: 0 promethazine 25 mg Tablet 25 mg PO Q8H PRN (Reason: Nausea) RF: 0 ergocalciferol (vitamin D2) [Vitamin D2] 50,000 unit Capsule 50,000 units PO 2XWK RF: 0 magnesium oxide 400 mg magnesium Tablet 400 mg PO QAM RF: 0 propranolol [Inderal LA] 60 mg Capsule,Extended Release 24 Hr 60 mg PO QAM RF: 0 cholecalciferol (vitamin D3) [Vitamin D3] 50 mcg (2,000 unit) Capsule 2,000 unit PO QAM RF: 0 Ajovy Autoinjector 225 mg/1.5 mL Auto-Injector 225 mg SUBCUT MONTHLY RF: 0 lorazepam [Ativan] 0.5 mg Tablet 0.5 mg PO DAILY PRN (Reason: Anxiety) RF: 0 duloxetine 30 mg Capsule,Delayed Release(Dr/Ec) 30 mg PO QAM RF: 0 trazodone 300 mg tablet 300 mg PO HS RF: 0 divalproex [Depakote ER] 250 mg Tablet Extended Release 24 Hr 750 mg PO HS RF: 0 Discharge Orders: Discharge Order (Routine); Ordered 04/07/20 Ordered By: Vanesa Zelaya/Other Patient Handouts: Prediabetes, Diabetes: Meal Planning, A1C Admission Data Admit Date/Time: 04/02/20 20:24 Attending Provider: Vanesa Peña Admit Provider: Torey Muñoz Primary Care Provider: Richi Sutton Other Providers: Torey Muñoz ; Rama Chandra Other Interventions: Discharge Summary Assessment (RN) Last Done: 04/07/20 18:18 DC Date/Time DO NOT enter until pt leaves facility: 04/07/20 19:40
== END 2020-04-07 19:40 | disposition home or self-care (01) ==
LOC: ED 14:53 → SUATTDRO 20:24 → INTOOBSV 20:24 → 2N 20:24 → 3N 04-04 19:36

== ENCOUNTER 2020-07-06 13:55 | Inpatient (IN) ==
--- NOTE | 2020-07-06 14:09 | Emergency Department Note ---
Impression & Plan Atypical chest pain, Nausea ED Provider Note NAME: VENTURA BRITTON AGE: 55 SEX: F : 1965 ARRIVES VIA: Ambulance INFORMANT: Patient, ED PROVIDER(S): Aidne Quintero MD Chief Complaint: Chest pain HPI: Patient states that she began to have slightly left-sided chest pain while folding laundry approximately 4 to 5 minutes prior to arrival. The patient does describe it as achy and sharp with radiation to her bilateral upper extremities. The patient does have a prior history of PE and had taken it for 6 months but is no longer on any current medications. The patient did have some sweaty episodes, dizziness, and nausea but without vomiting. Patient denies fevers, chills, or shortness of breath. Patient denies lower extremity swelling. Patient has any recent travel or procedures. Patient did not take anything prior to arrival but when EMS arrived the patient did receive nitroglycerin and aspirin. The patient states that the nitro did improve her symptoms from a 9 to about a 7. Patient believes that her pain is returning. ROS: See HPI for pertinent positives and negatives. A total of 10 systems were reviewed and otherwise negative. Past medical history: See below Surgical history: See below Social history: See below Physical Exam: GENERAL: Wearing glasses and a mask, anxious in appearance. EYE EXAM: Normal conjunctiva. PERRL, no anisocoria and EOM's grossly intact w/o pain. [OROPHARYNX: Moist mucus membranes. Grossly normal dentition. ] NECK: Supple, no nuchal rigidity, no adenopathy, non-tender. No signs of meningismus. LUNGS: Clear to auscultation. Normal chest wall mechanics. HEART: NSR, no MRG. ABDOMEN: Abdomen soft, non-tender, normo-active bowel sounds, no masses, no rebound or guarding. BACK: No CVA TTP. SKIN: No rashes and no bruising. UPPER EXTREMITIES: Upper extremities are grossly normal. LOWER EXTREMITIES: Grossly normal, no edema. NEURO EXAM: A&O x3, cranial nerves II-XII grossly intact, normal speech, moves all 4 extremities on command w/o issue. Differential diagnoses: Cardiac ischemia, aortic dissection, pulmonary embolism, pneumothorax, pneumonia, pericarditis, myocarditis, esophageal rupture, GERD, cholecystitis, pancreatitis, musculoskeletal, as well as other pathologies. Course: Patient was seen and evaluated the bedside. Full history physical exam was performed. EKG: Indication: Chest pain Normal sinus rhythm, rate of 92, normal intervals, normal axis, Q wave in 3 and aVF. Patient does have Q waves inferiorly and her rate is increased from comparison EKG completed April 04, 2020. Imaging Studies: Radiology results as stated below per my review in the radiologist's interpretation: XR chest 1V portable CLINICAL HISTORY: Atypical chest pain COMPARISON STUDY: 04/02/2020 FINDINGS: The heart is borderline enlarged. There is equivocal mild interstitial thickening.. There is no focal pulmonary consolidation.[There are no pleural effusions. IMPRESSION: 1. Equivocal mild residual thickening. No evidence of focal pulmonary consolidation. ACT 112: Negative or not required by law. Electronically signed by: Amish Orantes M.D. 07/06/2020 2:57 PM Dictated: 07/06/201453 Transcribed: 07/06/201453 CT ANGIOGRAM OF THE CHEST CLINICAL HISTORY: Atypical chest pain and shortness of breath. Possible pulmon sharif embolism. COMPARISON STUDY: Chest CT dated 04/02/2020, chest x-ray dated 07/06/2020 TECHNIQUE: Following the IV administration of 120 mL of Optiray-320, CT angiogram of the thorax was performed from the thoracic inlet to the lung bases utilizing the pulmonary embolus protocol. Images are reviewed in the axial, sagittal, and coronal planes. IV contrast was administered without complication. MIP imaging was performed. A dose lowering technique was utilized adhering to the principles of ALARA. CT DOSE: 637.89 mGy.cm FINDINGS: No pathologically enlarged axillary mediastinal or hilar lymph nodes were visualized. There was no evidence of thoracic aortic dilatation. There were no pulmonary artery filling defects to indicate acute pulmonary embolism. No pleural effusions are visualized. There is an 8 mm right upper lobe lung cyst. There is no lobar consolidation. There are scattered areas of groundglass attenuation, likely atelectatic. There is a stable 3 mm left upper lobe pulmonary nodule. There is a stable 3 mm right upper lobe pulmonary nodule. IMPRESSION: 1. No evidence of acute pulmonary embolism 2. Stable subcentimeter pulmonary nodules 3. No evidence of pathologic adenopathy 4. No evidence of lobar consolidation 5. Scattered groundglass densities, likely atelectatic. ACT 112: Negative or not required by law. Electronically signed by: Amish Orantes M.D. 07/06/2020 4:14 PM Dictated: 07/06/201610 Transcribed: 07/06/201610 Cardiac monitoring: An order was placed for continuous cardiac monitoring. The monitor shows a rate of 95 with sinus rhythm. MDM: Patient does present with concern for chest pain. The patient will already did receive aspirin. The patient was ordered fentanyl as well as Nitropaste. Blood work was obtained along with a CT angiography of the chest. Patient's blood work shows a normal white count and mild anemia at 11.6. Platelet count is unremarkable with normal kidney function. Troponin is not detectable. Patient's chest x-ray is unremarkable with a negative CT angiography of the chest. The patient was still having some discomfort did have some mild headache. Patient was ordered some Tylenol. Given the patient already received aspirin and nitro and given the concerning story that the patient would benefit from observation and continued cardiac enzyme trending. I did speak with the on-call hospitalist and the patient was admitted by Dr. Perry of the [facility] service. Past Med/Surg History Medical History Clostridium difficile colitis Depression Edema GERD (gastroesophageal reflux disease) History of DVT (deep vein thrombosis) History of pulmonary embolism "completed 6 months Coumadin therapy" On 06/27/16 17:03 Nuha Zarate wrote On 03/23/16 16:22 Dottie Montilla wrote "1999 per patient; s/p knee replacement" MINI (iron deficiency anemia) Psoriatic arthritis Sleep apnea Vertigo Surgical History H/O wisdom tooth extraction History of appendectomy History of carpal tunnel surgery History of cholecystectomy S/P hysterectomy Status post appendectomy Status post cholecystectomy Status post gastric bypass for obesity Status post total knee replacement Family History Mother Rheumatoid arthritis Father Cancer blood cancer Denies family history of Hypertension Social History Smoking Status: Never smoker Hx Alcohol Use: No Hx Substance Use: No Preferred Language: Bahamian Communication Ability: Effective Customer Development Representative Required: No Beliefs That Will Affect Care: None marital status: Current Living Situation: Family Feels Safe at Home: Yes Assistive Devices: Glasses Allergies Allergies Allergy/AdvReac Type Severity Reaction Status Date / Time oxycodone Allergy Intermediate Hives Verified 07/06/20 15:48 piperacillin Allergy Intermediate Pruritus Verified 07/06/20 15:48 tazobactam Allergy Intermediate Pruritus Verified 07/06/20 15:48 ketorolac Allergy Mild Itching Verified 07/06/20 15:48 vancomycin AdvReac Unknown deathly ill Verified 07/06/20 15:48 Home Meds Home Medications Medication Instructions Recorded Confirmed ergocalciferol (vitamin D2) 50,000 units PO 2XWK 07/17/18 07/06/20 [Vitamin D2] levothyroxine [Synthroid] 25 mcg PO QAM 07/17/18 07/06/20 magnesium oxide 400 mg PO QAM 07/17/18 07/06/20 pantoprazole [Protonix] 40 mg PO BID 07/17/18 07/06/20 sumatriptan succinate [Imitrex] 50 mg PO DIRECTED PRN 07/17/18 07/06/20 duloxetine 30 mg PO BID 11/17/18 07/06/20 lorazepam [Ativan] 0.5 mg PO DAILY PRN 11/17/18 07/06/20 divalproex [Depakote ER] 750 mg PO HS 11/06/19 07/06/20 trazodone 300 mg PO HS 11/06/19 07/06/20 Ajovy Autoinjector 225 mg SUBCUT MONTHLY 03/31/20 07/06/20 cholecalciferol (vitamin D3) 2,000 unit PO QAM 03/31/20 07/06/20 [Vitamin D3] propranolol [Inderal LA] 60 mg PO QAM 03/31/20 07/06/20 albuterol sulfate 2 puff INHALATION QID PRN 07/06/20 07/06/20 dicyclomine 10 mg PO AC PRN 07/06/20 07/06/20 ondansetron [Zofran ODT] 8 mg PO Q8H PRN 07/06/20 07/06/20 prednisone 5 mg PO DAILY 07/06/20 07/06/20 promethazine 25 mg PO TID PRN 07/06/20 07/06/20 Results & Data (ED) Vital Signs Vital Signs - 24 hr 07/06/20 14:03 07/06/20 14:14 07/06/20 14:20 Temperature 36.9 C Temperature Source Oral Pulse Rate 94 H 90 93 H Pulse Rate [Apical] Pulse Rate from SpO2 Sensor 87 90 Respiratory Rate 22 19 14 Blood Pressure 129/93 Blood Pressure [Left Arm] Blood Pressure Mean 105 Blood Pressure Mean [Left Arm] Pulse Oximetry 100 95 94 Oxygen Delivery Method Room Air Sepsis Recent Fever Within 48 Hours No Sepsis New/Unexplained Change in Mental Status N/A Sepsis Action Taken by Nursing No Action Required 07/06/20 14:30 07/06/20 14:31 07/06/20 14:40 Temperature Temperature Source Pulse Rate 93 H 88 90 Pulse Rate [Apical] Pulse Rate from SpO2 Sensor 89 91 H 91 H Respiratory Rate 15 18 22 Blood Pressure 117/82 Blood Pressure [Left Arm] Blood Pressure Mean 98 Blood Pressure Mean [Left Arm] Pulse Oximetry 96 95 95 Oxygen Delivery Method Sepsis Recent Fever Within 48 Hours Sepsis New/Unexplained Change in Mental Status Sepsis Action Taken by Nursing 07/06/20 14:50 07/06/20 17:47 Temperature Temperature Source Pulse Rate 95 H Pulse Rate [Apical] 86 Pulse Rate from SpO2 Sensor 89 Respiratory Rate 25 H 18 Blood Pressure Blood Pressure [Left Arm] 124/91 Blood Pressure Mean Blood Pressure Mean [Left Arm] 102 Pulse Oximetry 96 96 Oxygen Delivery Method Room Air Sepsis Recent Fever Within 48 Hours Sepsis New/Unexplained Change in Mental Status Sepsis Action Taken by Longterm Medications Current Medication List: was personally reviewed by or Laboratory Data Attestation: I reviewed the patient's lab results. Result diagrams: 07/06/20 14:44 07/06/20 14:44 Lab Results 07/06/20 07/06/20 07/06/20 Range/Units 14:44 14:44 14:44 WBC 7.77 (4.8-10.8) K/uL RBC 4.56 (4.2-5.4) M/uL Hgb 11.6 L (12.0-16.0) g/dL Hct 36.6 L (37-47) % MCV 80.3 (80-100) fL MCH 25.4 (25-34) pg MCHC 31.7 L (32-36) g/dL RDW Std Deviation 48.8 H (36.4-46.3) fL RDW Coeff of Halley 16.5 H (11.5-14.5) % Plt Count 298 (130-400) K/uL MPV 9.8 (7.4-10.4) fL Immature Gran % (Auto) 0.4 % Neut % (Auto) 50.4 % Lymph % (Auto) 38.5 % Prentiss % (Auto) 9.0 % Eos % (Auto) 1.3 % Baso % (Auto) 0.4 % Neut # (Auto) 3.92 (1.4-6.5) K/uL Lymph # (Auto) 2.99 (1.2-3.4) K/uL Prentiss # (Auto) 0.70 H (0.11-0.59) K/uL Eos # (Auto) 0.10 (0-0.5) K/uL Baso # (Auto) 0.03 (0-0.2) K/uL Immature Gran # (Auto) 0.03 H (0.00-0.02) K/uL PT Cancelled INR Cancelled APTT Cancelled PTT Ratio Cancelled Sodium 141 (136-145) mmol/L Potassium 3.9 (3.5-5.1) mmol/L Chloride 112 H (98-107) mmol/L Carbon Dioxide 25 (21-32) mmol/L Anion Gap 4.0 (3-11) BUN 12 (7-18) mg/dl Creatinine 0.94 (0.6-1.2) mg/dl Est Cr Clr Drug Dosing 73.8 ml/min Est GFR ( Amer) 78.1 Est GFR (Non-Af Amer) 67.3 BUN/Creatinine Ratio 12.4 (10-20) Glucose 90 (70-99) mg/dl Calcium 9.0 (8.5-10.1) mg/dl Total Bilirubin 1.1 H (0.2-1) mg/dl AST 16 (15-37) U/L ALT 26 (12-78) U/L Alkaline Phosphatase 154 H (45-117) U/L Troponin I < 0.015 (0-0.045) ng/ml Total Protein 7.0 (6.4-8.2) gm/dl Albumin 3.7 (3.4-5.0) gm/dl Globulin 3.3 (2.5-4.0) gm/dl Albumin/Globulin Ratio 1.1 (0.9-2) Lipase 78 (73-393) U/L Administered Medications Discontinued Medications Fentanyl Citrate (Fentanyl Citrate 100 Mcg/2 Ml Vial) 50 mcg IV NOW STA Stop: 07/06/20 14:17 Last Admin: 07/06/20 14:25 Dose: 50 mcg Documented by: [id number] Fentanyl Citrate (Fentanyl Citrate 100 Mcg/2 Ml Vial) 50 mcg IV NOW STA Stop: 07/06/20 16:40 Last Admin: 07/06/20 16:43 Dose: 50 mcg Documented by: [id number] Sodium Chloride (Nss) 500 mls @ 999 mls/hr IV .Q31M DRE Stop: 07/06/20 15:00 Last Infusion: 07/06/20 15:04 Dose: 0 mls/hr Documented by: [id number] Admin: 07/06/20 14:26 Dose: 999 mls/hr Documented by: [id number] Ioversol (Optiray 320 125ml) 120 ml IV ONCE ONE Stop: 07/06/20 16:05 Last Admin: 07/06/20 16:04 Dose: 120 ml Documented by: [id number] Nitroglycerin (Nitroglycerin 2% Ointment 30gm Tube) 0.5 inch EXT NOW STA Stop: 07/06/20 14:17 Last Admin: 07/06/20 14:25 Dose: 0.5 inch Documented by: [id number] Ondansetron HCl (Ondansetron Inj 2 Mg/Ml 2 Ml Vial) 4 mg IV NOW STA Stop: 07/06/20 16:40 Last Admin: 07/06/20 16:42 Dose: 4 mg Documented by: [id number] Discharge Plan Visit Data Chief Complaint: Chest Pain ED Provider: Aiden Quintero Discharge Problem: Atypical chest pain, Nausea Forms Stand Alone Forms: [facility] [employer] Prescriptions Prescriptions: No Action sumatriptan succinate [Imitrex] 50 mg Tablet 50 mg PO DIRECTED PRN (Reason: Migraine Headache) RF: 0 levothyroxine [Synthroid] 25 mcg Tablet 25 mcg PO QAM RF: 0 pantoprazole [Protonix] 40 mg Tablet,Delayed Release (Dr/Ec) 40 mg PO BID RF: 0 ergocalciferol (vitamin D2) [Vitamin D2] 50,000 unit Capsule 50,000 units PO 2XWK RF: 0 magnesium oxide 400 mg magnesium Tablet 400 mg PO QAM RF: 0 propranolol [Inderal LA] 60 mg Capsule,Extended Release 24 Hr 60 mg PO QAM RF: 0 cholecalciferol (vitamin D3) [Vitamin D3] 50 mcg (2,000 unit) Capsule 2,000 unit PO QAM RF: 0 Ajovy Autoinjector 225 mg/1.5 mL Auto-Injector 225 mg SUBCUT MONTHLY RF: 0 lorazepam [Ativan] 0.5 mg Tablet 0.5 mg PO DAILY PRN (Reason: Anxiety) RF: 0 duloxetine 30 mg Capsule,Delayed Release(Dr/Ec) 30 mg PO BID RF: 0 trazodone 300 mg tablet 300 mg PO HS RF: 0 divalproex [Depakote ER] 250 mg Tablet Extended Release 24 Hr 750 mg PO HS RF: 0 prednisone 5 mg tablet 5 mg PO DAILY RF: 0 ondansetron [Zofran ODT] 8 mg Tablet,Disintegrating 8 mg PO Q8H PRN (Reason: Nausea And Vomiting) RF: 0 albuterol sulfate 90 mcg/actuation HFA aerosol inhaler 2 puff INHALATION QID PRN (Reason: Shortness Of Breath Or Wheezing) RF: 0 promethazine 25 mg tablet 25 mg PO TID PRN (Reason: Nausea And Vomiting) RF: 0 dicyclomine 10 mg capsule 10 mg PO AC PRN (Reason: Abdominal Discomfort) RF: 0
[2020-07-06] MEDS ORDERED: NITROGLYCERIN 2% OINTMENT 30GM TUBE EXT STA (14:16)
[2020-07-06] MEDS ORDERED: fentaNYL citrate 100 MCG/2 ML VIAL IV STA ×2 (14:16→16:39)
[2020-07-06] MEDS ORDERED: SODIUM CHLORIDE 0.9% 500 ML IV SCH (14:30)
--- NOTE | 2020-07-06 14:58 | XRay Report ---
XR chest 1V portable CLINICAL HISTORY: Atypical chest pain COMPARISON STUDY: 04/02/2020 FINDINGS: The heart is borderline enlarged. There is equivocal mild interstitial thickening.. There i s no focal pulmonary consolidation.[There are no pleural effusions. IMPRESSION: 1. Equivocal mild residual thickening. No evidence of focal pulmonary consolidation. ACT 112: Negative or not required by law. Electronically signed by: Amish Orantes M.D. 07/06/2020 2:57 PM
[2020-07-06 15:00] LABS: Basophils # (auto) 0.03 K/uL (0-0.2); Basophils % (auto) 0.4 %; Eosinophils % (auto) 1.3 %; Hematocrit (blood only) 36.6 % (37-47); Hemoglobin 11.6 g/dL (12.0-16.0); Immature Granulocytes # (auto) 0.03 K/uL (0.00-0.02); Immature Granulocytes % (auto) 0.4 %; Lymphocytes # (auto) 2.99 K/uL (1.2-3.4); Lymphocytes % (auto) 38.5 %; Mean Corpuscular Hemoglobin 25.4 pg (25-34); Mean Corpuscular Hgb Conc 31.7 g/dL (32-36); Mean Corpuscular Volume 80.3 fL (80-100); Mean Platelet Volume 9.8 fL (7.4-10.4); Neutrophils # (auto) 3.92 K/uL (1.4-6.5); Neutrophils % (auto) 50.4 %; Platelet Count 298 K/uL (130-400); RDW Coefficient of Variation 16.5 % (11.5-14.5); RDW Standard Deviation 48.8 fL (36.4-46.3); Red Blood Count 4.56 M/uL (4.2-5.4); White Blood Count 7.77 K/uL (4.8-10.8)
[2020-07-06 15:28] LABS: Alanine Aminotransferase 26 U/L (12-78); Albumin Level 3.7 gm/dl (3.4-5.0); Aspartate Aminotransferase 16 U/L (15-37); BUN Creatinine Ratio 12.4 (10-20); Blood Urea Nitrogen 12 mg/dl (7-18); Carbon Dioxide 25 mmol/L (21-32); Chloride 112 mmol/L (98-107); Creatinine Clr Calc Pharmacy 73.8 ml/min; Est GFR (African American) 78.1; Est GFR (Non-African American) 67.3; Glucose 90 mg/dl (70-99); Lipase 78 U/L (73-393); Potassium 3.9 mmol/L (3.5-5.1); Sodium 141 mmol/L (136-145)
[2020-07-06 15:33] LABS: Albumin Globulin Ratio 1.1 (0.9-2); Alkaline Phosphatase 154 U/L (45-117); Bilirubin,Total 1.1 mg/dl (0.2-1); Globulin 3.3 gm/dl (2.5-4.0); Troponin I < 0.015 ng/ml (0-0.045)
[2020-07-06] MEDS ORDERED: OPTIRAY 320 125ml IV ONE (16:04)
--- NOTE | 2020-07-06 16:16 | CT Scan Report ---
CT ANGIOGRAM OF THE CHEST CLINICAL HISTORY: Atypical chest pain and shortness of breath. Possible pulmonary embolism. COMPARISON STUDY: Chest CT dated 04/02/2020, chest x-ray dated 07/06/2020 TECHNIQUE: Following the IV administration of 120 mL of Optiray-320, CT angiogram of the thorax was p erformed from the thoracic inlet to the lung bases utilizing the pulmonary embolus protocol. Images a re reviewed in the axial, sagittal, and coronal planes. IV contrast was administered without complica tion. MIP imaging was performed. A dose lowering technique was utilized adhering to the principles o f ALARA. CT DOSE: 637.89 mGy.cm FINDINGS: No pathologically enlarged axillary mediastinal or hilar lymph nodes were visualized. There was no evidence of thoracic aortic dilatation. There were no pulmonary artery filling defects to indicate acute pulmonary embolism. No pleural effusions are visualized. There is an 8 mm right upper lobe lung cyst. There is no lobar consolidation. There are scattered are as of groundglass attenuation, likely atelectatic. There is a stable 3 mm left upper lobe pulmonary n odule. There is a stable 3 mm right upper lobe pulmonary nodule. IMPRESSION: 1. No evidence of acute pulmonary embolism 2. Stable subcentimeter pulmonary nodules 3. No evidence of pathologic adenopathy 4. No evidence of lobar consolidation 5. Scattered groundglass densities, likely atelectatic. ACT 112: Negative or not required by law. Electronically signed by: Amish Orantes M.D. 07/06/2020 4:14 PM
[2020-07-06] MEDS ORDERED: ONDANSETRON INJ 2 MG/ML 2 ML VIAL IV STA (16:39)
--- NOTE | 2020-07-06 17:25 | History & Physical Report ---
Date of Service July 06, 2020 Assessment & Plan (1) Precordial chest pain: This is a 55-year-old female who has significant past medical history of psoriatic arthritis on long-term prednisone therapy, history of gastric bypass, prediabetes, hypothyroidism, depression, migraine, Szymanski, unprovoked PE, history of C. difficile, chronic anemia who presents to ED secondary to chest pain since 1:30 PM. Initial troponin WNL and EKG unchanged from prior tracing. Repeat EKG during my evaluation was unchanged despite continued chest discomfort. Of significance she did have cardiac catheterization 03/2020 clean coronaries of mild CAD. No intervention required. Echocardiogram unremarkable at that time as well. ACS unlikely but will admit and rule out. CTA of chest done in ED which was negative for PE/thoracic arch dilitation Sx not reproducible so msk unlikely unless thoracic component hx of gastric bypass ? if esophageal spasm vs gastritis vs ulcer - hx seems likely but keep in differential admit to med tele under obs cycle trop and repeat ecg in a.m. hold oral PPI and place on IV BID give IV morphine 2mg x 1 now Thoracic spine imaging am labs (2) Pre-diabetes: Last A1c 6.3 05/26/2020 Diet controlled (3) Psoriatic arthritis: Stable with arthropathy Continue prednisone (4) Migraine: (5) Depression: Continue Cymbalta, trazodone and as needed Ativan Mood stable (6) Hypothyroidism: Continue levothyroxine (7) DVT prophylaxis: History of unprovoked DVT/PE Lovenox Disposition: Admit to med telemetry Follow-up: PCP Dr. Sutton upon discharge Patient was seen and examined in collaboration with Dr. Perry, please see addendum History of Present Illness Chief Complaint: Chest pain since 1:30 PM. Primary Care Provider: Richi Sutton, This is a 55-year-old female who has significant past medical history of psoriatic arthritis on long-term prednisone therapy, history of gastric bypass, prediabetes, hypothyroidism, depression, migraine, Szymanski, unprovoked PE, history of C. difficile, chronic anemia who presents to ED secondary to chest pain since 1:30 PM. 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 Pain radiated to right arm as well as under left armpit. She also felt pressure on throat. She also had associated nausea and chills. Symptoms lasted approximately 15 minutes until she called EMS. witnessed events. When EMS arrived she had 4 baby aspirin as well as 1 nitro. Pain initially 10/10 and nitro improved symptoms to 8/10. She was transported to ED. Initial EKG and troponin were unremarkable. EKG unchanged from prior tracings. Nitropaste was placed without significant improvement of symptoms. She also had IV fentanyl without improvement. She continues to complain of chest discomfort. She denies any recent illness, fever, chills, sweats, lightheadedness, dizziness, shortness breath at rest, cough, hemoptysis, emesis, abdominal pain. She did ambulate to bathroom recently and did feel short of breath with exertion. She denies any known Covid exposures. Her appetite is otherwise been okay. She only had hot chocolate for breakfast, but has not anything to eat since. She has had episodes of chest pain in past, but nothing this severe. Of significance she did have cardiac catheterization March 2020 with clean coronaries and only mild CAD. She also echocardiogram which revealed EF greater than 70% with mild LVH but otherwise unremarkable. Allergies Allergy/AdvReac Type Severity Reaction Status Date / Time oxycodone Allergy Intermediate Hives Verified 07/06/20 15:48 piperacillin Allergy Intermediate Pruritus Verified 07/06/20 15:48 tazobactam Allergy Intermediate Pruritus Verified 07/06/20 15:48 ketorolac Allergy Mild Itching Verified 07/06/20 15:48 vancomycin AdvReac Unknown deathly ill Verified 07/06/20 15:48 Home Medications Home Medications Medication Instructions Recorded Confirmed Type ergocalciferol (vitamin D2) 50,000 units PO 2XWK 07/17/18 07/06/20 History [Vitamin D2] levothyroxine [Synthroid] 25 mcg PO QAM 07/17/18 07/06/20 History magnesium oxide 400 mg PO QAM 07/17/18 07/06/20 History pantoprazole [Protonix] 40 mg PO BID 07/17/18 07/06/20 History sumatriptan succinate [Imitrex] 50 mg PO DIRECTED PRN 07/17/18 07/06/20 History duloxetine 30 mg PO BID 11/17/18 07/06/20 History lorazepam [Ativan] 0.5 mg PO DAILY PRN 11/17/18 07/06/20 History divalproex [Depakote ER] 750 mg PO HS 11/06/19 07/06/20 History trazodone 300 mg PO HS 11/06/19 07/06/20 History Ajovy Autoinjector 225 mg SUBCUT MONTHLY 03/31/20 07/06/20 History cholecalciferol (vitamin D3) 2,000 unit PO QAM 03/31/20 07/06/20 History [Vitamin D3] propranolol [Inderal LA] 60 mg PO QAM 03/31/20 07/06/20 History albuterol sulfate 2 puff INHALATION QID PRN 07/06/20 07/06/20 History dicyclomine 10 mg PO AC PRN 07/06/20 07/06/20 History ondansetron [Zofran ODT] 8 mg PO Q8H PRN 07/06/20 07/06/20 History prednisone 5 mg PO DAILY 07/06/20 07/06/20 History promethazine 25 mg PO TID PRN 07/06/20 07/06/20 History Past Med/Surg History Medical History Clostridium difficile colitis Depression Edema GERD (gastroesophageal reflux disease) History of DVT (deep vein thrombosis) History of pulmonary embolism "completed 6 months Coumadin therapy" On 06/27/16 17:03 Nuha Zarate wrote On 03/23/16 16:22 Dottie Montilla wrote "2000 per patient; s/p knee replacement" MINI (iron deficiency anemia) Psoriatic arthritis Sleep apnea Vertigo Surgical History H/O wisdom tooth extraction History of appendectomy History of carpal tunnel surgery History of cholecystectomy S/P hysterectomy Status post appendectomy Status post cholecystectomy Status post gastric bypass for obesity Status post total knee replacement Family History Mother Rheumatoid arthritis Father Cancer blood cancer Denies family history of Hypertension Social History Smoking Status: Never smoker Hx Alcohol Use: No Hx Substance Use: No Preferred Language: [place] Communication Ability: Effective Over Short And Damage Clerk Required: No Beliefs That Will Affect Care: None marital status: Current Living Situation: Spouse and Family Other Information That Helps Us Care for You: No Feels Safe at Home: Yes Safety Concerns: Feels Safe At This Time Assistive Devices: Glasses Review of Systems Review of Systems: All systems reviewed & are unremarkable except as noted in HPI & below Physical Exam Physical Exam: Constitutional: WD/WN, vitals as above, NAD, sitting up in bed, pleasant, conversing easily Head: Normocephalic, Atraumatic Eyes: PERRL, conjunctivae normal, anicteric sclerae ENMT: external ear and nose normal, oropharynx normal Neck: trachea midline, no thyromegaly normal visual inspection Respiratory: normal respiratory effort, lungs clear to auscultation, no wheeze, rales, rhonchi. Normal insp/exp effort, no accessory muscle use Cardiovascular: Mildly tachycardic regular rhythm, 1/6 ELIU at RUSB, bilateral lower extremity varicosities, no edema Vessels: no JVD or carotid bruit Chest: Chest pain is not reproducible, normal inspection of chest Abdomen: normal bowel sounds, soft, nontender, no hepatosplenomegaly Musculoskeletal: no cyanosis or clubbing, extremities motor strength 5/5 Skin: no rashes, warm and dry normal turgor Neurologic: PERRL, EOMI, accommodation nl, no face palsy, no dysarthria CN's II-XI intact bilaterally and moves all extremities Psychiatric: A+Ox3, euthymic affect Lymphatic: no cervical or axillary lymphadenopathy : deferred Results & Data Results & Data ([facility]) Vital Signs (Past 12 Hours) Vital Signs Temp Pulse Resp BP Pulse Ox 07/06/20 14:50 95 H 25 H 96 07/06/20 14:40 90 22 95 07/06/20 14:31 88 18 95 07/06/20 14:30 93 H 15 117/82 96 07/06/20 14:20 93 H 14 94 07/06/20 14:14 90 19 95 07/06/20 14:03 36.9 C 94 H 22 129/93 100 Laboratory Results Short CBC 07/06/20 Range/Units 14:44 WBC 7.77 (4.8-10.8) K/uL Hgb 11.6 L (12.0-16.0) g/dL Hct 36.6 L (37-47) % Plt Count 298 (130-400) K/uL BMP 07/06/20 14:44 Sodium 141 Potassium 3.9 Chloride 112 H Carbon Dioxide 25 BUN 12 Creatinine 0.94 Glucose 90 Calcium 9.0 Cardiac Enzymes 07/06/20 Range/Units 14:44 Troponin I < 0.015 (0-0.045) ng/ml Liver Function 07/06/20 Range/Units 14:44 Total Bilirubin 1.1 H (0.2-1) mg/dl AST 16 (15-37) U/L ALT 26 (12-78) U/L Alkaline Phosphatase 154 H (45-117) U/L Albumin 3.7 (3.4-5.0) gm/dl Diagnostic Findings CXR:IMPRESSION: 1. Equivocal mild residual thickening. No evidence of focal pulmonary consolidation. Chest CTA: IMPRESSION: 1. No evidence of acute pulmonary embolism 2. Stable subcentimeter pulmonary nodules 3. No evidence of pathologic adenopathy 4. No evidence of lobar consolidation 5. Scattered groundglass densities, likely atelectatic. Medications Administered Discontinued Medications Fentanyl Citrate (Fentanyl Citrate 100 Mcg/2 Ml Vial) 50 mcg IV NOW STA Stop: 07/06/20 14:17 Last Admin: 07/06/20 14:25 Dose: 50 mcg Documented by: [id number] Fentanyl Citrate (Fentanyl Citrate 100 Mcg/2 Ml Vial) 50 mcg IV NOW STA Stop: 07/06/20 16:40 Last Admin: 07/06/20 16:43 Dose: 50 mcg Documented by: [id number] Sodium Chloride (Nss) 500 mls @ 999 mls/hr IV .Q31M DRE Stop: 07/06/20 15:00 Last Infusion: 07/06/20 15:04 Dose: 0 mls/hr Documented by: [id number] Admin: 07/06/20 14:26 Dose: 999 mls/hr Documented by: [id number] Ioversol (Optiray 320 125ml) 120 ml IV ONCE ONE Stop: 07/06/20 16:05 Last Admin: 07/06/20 16:04 Dose: 120 ml Documented by: [id number] Nitroglycerin (Nitroglycerin 2% Ointment 30gm Tube) 0.5 inch EXT NOW STA Stop: 07/06/20 14:17 Last Admin: 07/06/20 14:25 Dose: 0.5 inch Documented by: [id number] Ondansetron HCl (Ondansetron Inj 2 Mg/Ml 2 Ml Vial) 4 mg IV NOW STA Stop: 07/06/20 16:40 Last Admin: 07/06/20 16:42 Dose: 4 mg Documented by: [id number] ECG Rate (beats per minute): 92 Rhythm: normal sinus Comparison ECG Date: from (03/2020) Change: the following changes noted Additional Comments: q wave III Code Status & VTE Plan Code Status Full Code VTE Prophylaxis Plan VTE Prophylaxis will be ordered: Yes Supervising Physician Co-Signing Physician Notes Attending Addendum: care coordinated with JERAMY Rojas. please refer to her notes for full details, I agree with her notes patient seen and examined, records reviewed by myself as well on exam, patient seen resting in bed, not in distress reports moderate substernal pain, sharp, non radiating, no active dyspnea, nausea no other symptoms VS noted and reviewed oriented x 3 , not in distress, speaks in sentences with no effort nor accessory muscle use normal rate, regular rhythm, no murmurs clear breath sounds bilaterally non distended, soft, nontender no bipedal edema, erythema, warmth no neuro deficits WBC 7.7 Hg 11.6 Crea 0.94 ASSESSMENT AND PLAN ATYPICAL CHEST PAIN Cardiac Cath in March 2020 showing mild CAD not relieved by Nitro trop x 2 negative EKG no signs of acute ischemia/infarct GI etiology- esophagitis? GERD? esophageal spasms? Protonix IV, Sucralfate, Maalox; GI consult in AM if no improvement costochondritis? PRN Morphine other diagnoses and plan of care as per JERAMY Rojas's notes Tano Perry MD
[2020-07-06] MEDS ORDERED: MoRPHine SULFATE 2 MG/ML CARP IV STA (17:54)
[2020-07-06] MEDS ORDERED: ACETAMINOPHEN 325 MG TAB PO STA (17:55)
--- NOTE | 2020-07-06 19:02 | XRay Report ---
XR thoracic spine 3V routine HISTORY: 55 years-old Female chest pain acute atypical chest pain COMPARISON: CTA chest of same day TECHNIQUE: The thoracic spine FINDINGS: Mild multilevel intervertebral disc space narrowing and spondylitic spurring with mostly moderate fac et arthrosis. No acute fracture, subluxation or suspicious bone lesion. Surgical ciara project over the epigastric distribution. Cardiomegaly. IMPRESSION: No acute fracture or subluxation. ACT 112: Negative or not required by law. The above report was generated using voice recognition software. It may contain grammatical, syntax o r spelling errors. Electronically signed by: Fransisco Owens M.D. 07/06/2020 7:00 PM
[2020-07-06] MEDS ORDERED: ALBUTEROL HFA 8 GM INHALER INH PRN (19:26)
[2020-07-06] MEDS ORDERED: POLYETHYLENE (MIRALAX) 17 GM PACK PO PRN (19:26)
[2020-07-06] MEDS ORDERED: MAGNESIUM HYDROXIDE SUSP 30 ML UDC PO PRN (19:26)
[2020-07-06] MEDS ORDERED: ALUMINUM/MAGNESIUM SUSP 30 ML UDC PO PRN (19:26)
[2020-07-06] MEDS ORDERED: LORazepam 0.5 MG TAB PO PRN (19:26)
[2020-07-06] MEDS ORDERED: DICYCLOMINE HCL 10 MG CAP PO PRN (19:26)
[2020-07-06] MEDS ORDERED: PANTOprazole 40 MG TAB PO SCH ×2 (21:00)
[2020-07-06] MEDS: PROMETHAZINE HCL 12.5 MG in SODIUM CHLORIDE 0.9% 50 ML IV PRN (21:44)
[2020-07-06] MEDS: ACETAMINOPHEN 325 MG TAB PO PRN (21:46)
[2020-07-06] MEDS: MoRPHine SULFATE 4 MG/ML 1 ML CARP\\VIAL IV PRN (21:46)
[2020-07-06] MEDS: ENOXAPARIN INJ 40 MG/0.4 ML SYR SQ SCH (21:47)
[2020-07-06] MEDS: DULoxetine HCL 30 MG CAP PO SCH (21:47)
[2020-07-06] MEDS: DIVALPROEX EXTENDED RELEASE 250 MG TABCR PO SCH (21:48)
[2020-07-06] MEDS: traZODone HCL 100 MG TAB PO SCH (21:48)
[2020-07-06] MEDS: PANTOprazole 40 MG in SYRINGE 0 ML IV SCH (22:15)
[2020-07-06] MEDS: SUCRALFATE 1 GM/10 ML UDC PO SCH (22:15)
[2020-07-07] MEDS: ONDANSETRON INJ 2 MG/ML 2 ML VIAL IV PRN ×4 (01:09→20:21)
[2020-07-07] MEDS: PROMETHAZINE HCL 12.5 MG in SODIUM CHLORIDE 0.9% 50 ML IV PRN (05:31)
[2020-07-07] MEDS: LEVOTHYROXINE SODIUM 25 MCG TABLET PO SCH (05:31)
[2020-07-07] MEDS: MoRPHine SULFATE 4 MG/ML 1 ML CARP\\VIAL IV PRN ×4 (05:35→20:22)
--- NOTE | 2020-07-07 06:20 | Electrocardiogram Report ---
Test Reason : Blood Pressure : / mmHG Vent. Rate : 092 BPM Atrial Rate : 092 BPM P-R Int : 168 ms QRS Dur : 076 ms QT Int : 342 ms P-R-T Axes : 009 003 044 degrees QTc Int : 422 ms Poor data quality, interpretation may be adversely affected Normal sinus rhythm with sinus arrhythmia Inferior infarct , age undetermined Anteroseptal infarct (cited on or before 04-JAN-2017) Abnormal ECG When compared with ECG of 04-APR-2020 06:37, Vent. rate has increased BY 31 BPM Inferior infarct is now Present Confirmed by Tyrone Avelar ([id number]) on 07/07/2020 6:19:54 AM Referred By: ED Confirmed By:Tyrone Avelar
[2020-07-07 08:22] LABS: Hematocrit (blood only) 32.9 % (37-47); Hemoglobin 10.3 g/dL (12.0-16.0); Mean Corpuscular Hemoglobin 25.6 pg (25-34); Mean Corpuscular Hgb Conc 31.3 g/dL (32-36); Mean Corpuscular Volume 81.8 fL (80-100); Platelet Count 287 K/uL (130-400); RDW Coefficient of Variation 16.7 % (11.5-14.5); RDW Standard Deviation 50.7 fL (36.4-46.3); Red Blood Count 4.02 M/uL (4.2-5.4); White Blood Count 5.87 K/uL (4.8-10.8)
[2020-07-07] MEDS: SUCRALFATE 1 GM/10 ML UDC PO SCH ×4 (08:43→20:24)
[2020-07-07] MEDS: ACETAMINOPHEN 325 MG TAB PO PRN (08:44)
[2020-07-07] MEDS: DULoxetine HCL 30 MG CAP PO SCH ×2 (08:45→20:23)
[2020-07-07] MEDS: PROPRANOLOL HCL 60 MG LA CAP PO SCH (08:45)
[2020-07-07] MEDS: MAGNESIUM OXIDE 400 MG TAB PO SCH (08:45)
[2020-07-07] MEDS: PANTOprazole 40 MG in SYRINGE 0 ML IV SCH ×2 (08:46→20:22)
[2020-07-07] MEDS: CHOLECALCIFEROL 1,000 UNITS 25 MCG TAB PO SCH (08:46)
[2020-07-07] MEDS: predniSONE 5 MG TAB PO SCH (08:46)
[2020-07-07 08:53] LABS: BUN Creatinine Ratio 16.3 (10-20); Calcium 8.6 mg/dl (8.5-10.1); Est GFR (African American) 88.2; Est GFR (Non-African American) 76.1; Potassium 4.9 mmol/L (3.5-5.1)
--- NOTE | 2020-07-07 11:23 | Hospitalist Progress Note ---
Date of Service July 07, 2020 Assessment & Plan (1) Precordial chest pain: 55-year-old female who has significant past medical history of psoriatic arthritis on long-term prednisone therapy, history of gastric bypass, prediabetes, hypothyroidism, depression, migraine, Szymanski, unprovoked PE, history of C. difficile, chronic anemia who presented to ED secondary to chest pain since 1:30 PM yesterday Troponin trends have been negative Reported recent cardiac catheterization 03/2020 -clean coronaries of mild CAD. No intervention required. Echocardiogram unremarkable at that time as well. CTA of chest done in ED which was negative for PE/thoracic arch dilatation Low suspicion for ACS considering findings. I also discussed with Dr Muniz Funeral Greeter and went over EKG tracings. Will get 2D Echo for further evaluation Patient does have mild central chest tenderness on exam. Makes possibility of musculoskeletal cause Other possibilities include esophageal spasm, ?prinzmetal angina though low likelihood Continue PPI Tylenol for pain (2) Pre-diabetes: Last A1c 6.3 05/26/2020 Diet controlled (3) Psoriatic arthritis: Stable with arthropathy Continue prednisone (4) Migraine: (5) Depression: Continue Cymbalta, trazodone and as needed Ativan Mood stable (6) Hypothyroidism: Continue levothyroxine (7) DVT prophylaxis: History of unprovoked DVT/PE Lovenox Disposition: Continue med tele Follow-up: PCP Dr. Sutton upon discharge Admission and Anticipated Discharge Date Admission Date: July 06, 2020 Subjective Patient seen and examined Reports chest pain is improved since admission Currently about 5/10 states pain was worse with exertion Currently denies any SOB, nausea, vomiting, diaphoresis Denied any abd pain, diarrhea, constipation Denied any heart gasca Denied any cough Denied any dysuria, freq, urgency Denied any fevers, chills. Physical Exam Constitutional: + obese; no acute distress Eyes: PERRL, conjunctivae normal, anicteric sclerae ENMT: external ear and nose normal, oropharynx normal Respiratory: normal respiratory effort, lungs clear to auscultation Cardiovascular: RRR, no murmur, no edema Chest (Breasts): Additional Comments: +central chest tenderness to palpation Gastrointestinal (Abdomen): normal bowel sounds, soft, nontender, no hepatosplenomegaly Musculoskeletal: no cyanosis or clubbing, extremities motor strength 5/5 Neurologic: PERRL, EOMI, accommodation nl, no face palsy, no dysarthria Psychiatric: A+Ox3, euthymic affect Results & Data Results & Data ([facility]) Vital Signs (Past 12 Hours) Vital Signs Temp Pulse Pulse Resp BP Pulse Ox 07/07/20 08:00 79 07/07/20 07:29 36.4 C L 97 H 18 111/68 93 07/07/20 04:44 36.4 C L 82 18 107/63 91 Laboratory Results Laboratory Results - last 24 hr 07/06/20 07/06/20 07/06/20 14:44 14:44 14:44 WBC 7.77 RBC 4.56 Hgb 11.6 L Hct 36.6 L MCV 80.3 MCH 25.4 MCHC 31.7 L RDW Std Deviation 48.8 H RDW Coeff of Halley 16.5 H Plt Count 298 MPV 9.8 Immature Gran % (Auto) 0.4 Neut % (Auto) 50.4 Lymph % (Auto) 38.5 Nicholas % (Auto) 9.0 Eos % (Auto) 1.3 Baso % (Auto) 0.4 Neut # (Auto) 3.92 Lymph # (Auto) 2.99 Nicholas # (Auto) 0.70 H Eos # (Auto) 0.10 Baso # (Auto) 0.03 Immature Gran # (Auto) 0.03 H PT Cancelled INR Cancelled APTT Cancelled PTT Ratio Cancelled Sodium 141 Potassium 3.9 Chloride 112 H Carbon Dioxide 25 Anion Gap 4.0 BUN 12 Creatinine 0.94 Est Cr Clr Drug Dosing 73.8 Est GFR ( Amer) 78.1 Est GFR (Non-Af Amer) 67.3 BUN/Creatinine Ratio 12.4 Glucose 90 Calcium 9.0 Total Bilirubin 1.1 H AST 16 ALT 26 Alkaline Phosphatase 154 H Troponin I < 0.015 Total Protein 7.0 Albumin 3.7 Globulin 3.3 Albumin/Globulin Ratio 1.1 Triglycerides Cholesterol LDL Cholesterol, Calc VLDL Cholesterol, Calc HDL Cholesterol Cholesterol/HDL Ratio Lipase 78 07/06/20 07/07/20 07/07/20 20:39 00:56 08:02 WBC 5.87 RBC 4.02 L Hgb 10.3 L Hct 32.9 L MCV 81.8 MCH 25.6 MCHC 31.3 L RDW Std Deviation 50.7 H RDW Coeff of Halley 16.7 H Plt Count 287 MPV 9.0 Immature Gran % (Auto) Neut % (Auto) Lymph % (Auto) Nicholas % (Auto) Eos % (Auto) Baso % (Auto) Neut # (Auto) Lymph # (Auto) Nicholas # (Auto) Eos # (Auto) Baso # (Auto) Immature Gran # (Auto) PT INR APTT PTT Ratio Sodium Potassium Chloride Carbon Dioxide Anion Gap BUN Creatinine Est Cr Clr Drug Dosing Est GFR ( Amer) Est GFR (Non-Af Amer) BUN/Creatinine Ratio Glucose Calcium Total Bilirubin AST ALT Alkaline Phosphatase Troponin I < 0.015 < 0.015 Total Protein Albumin Globulin Albumin/Globulin Ratio Triglycerides Cholesterol LDL Cholesterol, Calc VLDL Cholesterol, Calc HDL Cholesterol Cholesterol/HDL Ratio Lipase 07/07/20 08:02 WBC RBC Hgb Hct MCV MCH MCHC RDW Std Deviation RDW Coeff of Halley Plt Count MPV Immature Gran % (Auto) Neut % (Auto) Lymph % (Auto) Nicholas % (Auto) Eos % (Auto) Baso % (Auto) Neut # (Auto) Lymph # (Auto) Nicholas # (Auto) Eos # (Auto) Baso # (Auto) Immature Gran # (Auto) PT INR APTT PTT Ratio Sodium 141 Potassium 4.9 D Chloride 110 H Carbon Dioxide 27 Anion Gap 4.0 BUN 14 Creatinine 0.85 Est Cr Clr Drug Dosing 81.0 Est GFR ( Amer) 88.2 Est GFR (Non-Af Amer) 76.1 BUN/Creatinine Ratio 16.3 Glucose 108 H Calcium 8.6 Total Bilirubin AST ALT Alkaline Phosphatase Troponin I Total Protein Albumin Globulin Albumin/Globulin Ratio Triglycerides 110 Cholesterol 171 LDL Cholesterol, Calc 110 VLDL Cholesterol, Calc 22 HDL Cholesterol 39 Cholesterol/HDL Ratio 4 Lipase
[2020-07-07] MEDS: ACETAMINOPHEN 325 MG TAB PO SCH ×3 (12:46→23:36)
[2020-07-07] MEDS: ENOXAPARIN INJ 40 MG/0.4 ML SYR SQ SCH (20:23)
[2020-07-07] MEDS: DIVALPROEX EXTENDED RELEASE 250 MG TABCR PO SCH (20:23)
[2020-07-07] MEDS: traZODone HCL 100 MG TAB PO SCH (22:31)
--- NOTE | 2020-07-08 05:44 | Electrocardiogram Report ---
Test Reason : Blood Pressure : / mmHG Vent. Rate : 081 BPM Atrial Rate : 081 BPM P-R Int : 172 ms QRS Dur : 096 ms QT Int : 366 ms P-R-T Axes : 035 -08 024 degrees QTc Int : 425 ms Normal sinus rhythm Incomplete right bundle branch block Inferior infarct (cited on or before 04-JAN-2017) Anteroseptal infarct (cited on or before 04-JAN-2017) Abnormal ECG When compared with ECG of 06-JUL-2020 14:00, No significant change was found Confirmed by Tyrone Avelar ([id number]) on 07/08/2020 5:44:01 AM Referred By: REFERRED SELF Confirmed By:Tyrone Avelar
--- NOTE | 2020-07-08 05:55 | Electrocardiogram Report ---
Test Reason : Blood Pressure : / mmHG Vent. Rate : 109 BPM Atrial Rate : 109 BPM P-R Int : 156 ms QRS Dur : 090 ms QT Int : 330 ms P-R-T Axes : 028 001 052 degrees QTc Int : 444 ms Sinus tachycardia Inferior infarct (cited on or before 04-JAN-2017) Anteroseptal infarct (cited on or before 04-JAN-2017) Abnormal ECG When compared with ECG of 06-JUL-2020 17:42, No significant change was found Confirmed by Tyrone Avelar ([id number]) on 07/08/2020 5:54:40 AM Referred By: REFERRED SELF Confirmed By:Tyrone Avelar
--- NOTE | 2020-07-08 06:09 | Electrocardiogram Report ---
Test Reason : Blood Pressure : / mmHG Vent. Rate : 079 BPM Atrial Rate : 079 BPM P-R Int : 168 ms QRS Dur : 086 ms QT Int : 376 ms P-R-T Axes : 028 005 009 degrees QTc Int : 431 ms Normal sinus rhythm with sinus arrhythmia Minimal voltage criteria for LVH, may be normal variant Anterior infarct Abnormal ECG When compared with ECG of 06-JUL-2020 21:32, Questionable change in initial forces of Anterolateral leads Confirmed by Tyrone Avelar ([id number]) on 07/08/2020 6:09:08 AM Referred By: REFERRED SELF Confirmed By:Tyrone Avelar
[2020-07-08] MEDS: ACETAMINOPHEN 325 MG TAB PO SCH ×4 (06:31→23:43)
[2020-07-08] MEDS: LEVOTHYROXINE SODIUM 25 MCG TABLET PO SCH (06:31)
[2020-07-08] MEDS: MoRPHine SULFATE 4 MG/ML 1 ML CARP\\VIAL IV PRN (06:33)
[2020-07-08] MEDS: ONDANSETRON INJ 2 MG/ML 2 ML VIAL IV PRN ×2 (06:34→13:38)
[2020-07-08 06:46] LABS: Hematocrit (blood only) 34.8 % (37-47); Hemoglobin 10.8 g/dL (12.0-16.0); Mean Corpuscular Hemoglobin 25.6 pg (25-34); Mean Corpuscular Volume 82.5 fL (80-100); Mean Platelet Volume 9.1 fL (7.4-10.4); Platelet Count 315 K/uL (130-400); RDW Coefficient of Variation 16.5 % (11.5-14.5); RDW Standard Deviation 49.8 fL (36.4-46.3); Red Blood Count 4.22 M/uL (4.2-5.4); White Blood Count 11.56 K/uL (4.8-10.8)
[2020-07-08 07:14] LABS: BUN Creatinine Ratio 13.7 (10-20); Calcium 8.4 mg/dl (8.5-10.1); Creatinine Clr Calc Pharmacy 68.9 ml/min; Est GFR (African American) 68.3; Est GFR (Non-African American) 58.9; Potassium 4.5 mmol/L (3.5-5.1)
[2020-07-08] MEDS: SUCRALFATE 1 GM/10 ML UDC PO SCH ×4 (07:51→20:33)
[2020-07-08] MEDS: PANTOprazole 40 MG in SYRINGE 0 ML IV SCH ×2 (08:05→20:33)
[2020-07-08] MEDS: MAGNESIUM OXIDE 400 MG TAB PO SCH (08:06)
[2020-07-08] MEDS: DULoxetine HCL 30 MG CAP PO SCH ×2 (08:06→20:34)
[2020-07-08] MEDS: predniSONE 5 MG TAB PO SCH (08:06)
[2020-07-08] MEDS: CHOLECALCIFEROL 1,000 UNITS 25 MCG TAB PO SCH (08:07)
[2020-07-08] MEDS: PROPRANOLOL HCL 60 MG LA CAP PO SCH (08:12)
[2020-07-08] MEDS: PROMETHAZINE HCL 12.5 MG in SODIUM CHLORIDE 0.9% 50 ML IV PRN ×2 (08:13→19:45)
[2020-07-08] MEDS ORDERED: SODIUM CHLORIDE 0.9% 1000ML 1,000 ML IV ONE (10:05)
--- NOTE | 2020-07-08 10:20 | Hospitalist Progress Note ---
Date of Service July 08, 2020 Assessment & Plan (1) Precordial chest pain: 55-year-old female who has significant past medical history of psoriatic arthritis on long-term prednisone therapy, history of gastric bypass, prediabetes, hypothyroidism, depression, migraine, Szymanski, unprovoked PE, history of C. difficile, chronic anemia who presented to ED secondary to chest pain since 1:30 PM yesterday Troponin trends have been negative Reported recent cardiac catheterization 03/2020 -clean coronaries of mild CAD. No intervention required. Echocardiogram unremarkable at that time as well. CTA of chest done in ED which was negative for PE/thoracic arch dilatation Low suspicion for ACS considering findings. I also discussed with Dr Muniz Library Technology Instructor and went over EKG tracings. Serial EKGs do not show ischemic changes Mild central chest tenderness noted on exam yesterday has resolved but patient still reports chest pain, minimally improved. Likely musculoskeletal cause Other possibilities include esophageal spasm, ?prinzmetal angina though low likelihood Reviewed all imaging done so far. No obvious fractures Continue PPI Tylenol for pain Had hypotension especially with morphine. Discontinued morphine Orthostatic BP -110/69 sitting, 92/61 standing Will give IVF Patient stating she does not want to be discharged today (2) Pre-diabetes: Last A1c 6.3 05/26/2020 Diet controlled (3) Psoriatic arthritis: Stable with arthropathy Continue prednisone (4) Migraine: (5) Depression: Continue Cymbalta, trazodone and as needed Ativan Mood stable (6) Hypothyroidism: Continue levothyroxine (7) DVT prophylaxis: History of unprovoked DVT/PE Lovenox Disposition: Continue med tele Plan to discharge in AM Follow-up: PCP Dr. Sutton upon discharge Admission and Anticipated Discharge Date Admission Date: July 06, 2020 Subjective Patient still reports central chest pain, minimally improved No SOB, MCQUEEN Reported mild nausea earlier No vomiting Reports generalized weakness Denied fevers, chills, dizziness Denied abd pain, diarrhea Denied dysuria, frequ, urgency Physical Exam Constitutional: + obese; no acute distress Eyes: PERRL, conjunctivae normal, anicteric sclerae ENMT: external ear and nose normal, oropharynx normal Respiratory: normal respiratory effort, lungs clear to auscultation Cardiovascular: RRR, no murmur, no edema Chest (Breasts): Additional Comments: No tenderness on palpation noted today Gastrointestinal (Abdomen): normal bowel sounds, soft, nontender, no hepatosplenomegaly Musculoskeletal: no cyanosis or clubbing, extremities motor strength 5/5 Neurologic: PERRL, EOMI, accommodation nl, no face palsy, no dysarthria Psychiatric: A+Ox3, euthymic affect Results & Data Results & Data ([facility]) Vital Signs (Past 12 Hours) Vital Signs Temp Pulse Pulse Resp BP BP Pulse Ox 07/08/20 08:43 36.9 C 83 18 100/64 94 07/08/20 08:12 89 89/53 L 91 07/08/20 07:14 80 07/08/20 04:16 36.5 C 68 18 102/63 93 07/08/20 01:37 78 07/07/20 23:50 36.6 C 70 18 108/71 97 Laboratory Results Laboratory Results - last 24 hr 07/08/20 07/08/20 06:12 06:12 WBC 11.56 H RBC 4.22 Hgb 10.8 L Hct 34.8 L MCV 82.5 MCH 25.6 MCHC 31.0 L RDW Std Deviation 49.8 H RDW Coeff of Halley 16.5 H Plt Count 315 MPV 9.1 Sodium 140 Potassium 4.5 Chloride 108 H Carbon Dioxide 28 Anion Gap 4.0 BUN 14 Creatinine 1.05 Est Cr Clr Drug Dosing 68.9 Est GFR ( Amer) 68.3 Est GFR (Non-Af Amer) 58.9 BUN/Creatinine Ratio 13.7 Glucose 110 H Calcium 8.4 L
[2020-07-08] MEDS ORDERED: SODIUM CHLORIDE 0.9% 500 ML IV SCH (14:30)
[2020-07-08] MEDS: SODIUM CHLORIDE 0.9% 1000ML 1,000 ML IV SCH (20:33)
[2020-07-08] MEDS: DIVALPROEX EXTENDED RELEASE 250 MG TABCR PO SCH (20:34)
[2020-07-08] MEDS: ENOXAPARIN INJ 40 MG/0.4 ML SYR SQ SCH (20:36)
[2020-07-08] MEDS: traZODone HCL 100 MG TAB PO SCH (23:42)
--- NOTE | 2020-07-09 05:10 | Electrocardiogram Report ---
Test Reason : Blood Pressure : / mmHG Vent. Rate : 083 BPM Atrial Rate : 083 BPM P-R Int : 178 ms QRS Dur : 084 ms QT Int : 350 ms P-R-T Axes : 043 011 007 degrees QTc Int : 411 ms Normal sinus rhythm Anterior infarct Abnormal ECG When compared with ECG of 07-JUL-2020 06:33, No significant change was found Confirmed by Tyrone Avelar ([id number]) on 07/09/2020 5:10:16 AM Referred By: REFERRED SELF Confirmed By:Tyrone Avelar
[2020-07-09] MEDS: ACETAMINOPHEN 325 MG TAB PO SCH (06:02)
[2020-07-09] MEDS: LEVOTHYROXINE SODIUM 25 MCG TABLET PO SCH (06:02)
[2020-07-09 06:58] LABS: Hematocrit (blood only) 30.2 % (37-47); Hemoglobin 9.4 g/dL (12.0-16.0); Mean Corpuscular Hemoglobin 25.7 pg (25-34); Mean Corpuscular Hgb Conc 31.1 g/dL (32-36); Mean Corpuscular Volume 82.5 fL (80-100); Mean Platelet Volume 9.1 fL (7.4-10.4); Platelet Count 286 K/uL (130-400); RDW Coefficient of Variation 16.6 % (11.5-14.5); RDW Standard Deviation 50.3 fL (36.4-46.3); Red Blood Count 3.66 M/uL (4.2-5.4); White Blood Count 8.19 K/uL (4.8-10.8)
[2020-07-09 07:29] LABS: BUN Creatinine Ratio 10.7 (10-20); Creatinine Clr Calc Pharmacy 77.4 ml/min; Est GFR (African American) 78.1; Est GFR (Non-African American) 67.3; Potassium 4.3 mmol/L (3.5-5.1)
[2020-07-09] MEDS ORDERED: ERGOCALCIFEROL 50,000 UNITS 1250 MCG CAP PO SCH (09:00)
[2020-07-09] MEDS: SODIUM CHLORIDE 0.9% 1000ML 1,000 ML IV SCH (09:14)
[2020-07-09] MEDS: SUCRALFATE 1 GM/10 ML UDC PO SCH (09:15)
[2020-07-09] MEDS: CHOLECALCIFEROL 1,000 UNITS 25 MCG TAB PO SCH (09:15)
[2020-07-09] MEDS: MAGNESIUM OXIDE 400 MG TAB PO SCH (09:15)
[2020-07-09] MEDS: DULoxetine HCL 30 MG CAP PO SCH (09:15)
[2020-07-09] MEDS: PANTOprazole 40 MG in SYRINGE 0 ML IV SCH (09:15)
[2020-07-09] MEDS: predniSONE 5 MG TAB PO SCH (09:16)
[2020-07-09] MEDS: PROPRANOLOL HCL 60 MG LA CAP PO SCH (09:16)
[2020-07-09] MEDS: PROMETHAZINE HCL 12.5 MG in SODIUM CHLORIDE 0.9% 50 ML IV PRN (09:24)
--- NOTE | 2020-07-09 09:58 | Discharge Summary ---
Date of Service July 09, 2020 Admission HPI Per Admitting Provider This is a 55-year-old female who has significant past medical history of psoriatic arthritis on long-term prednisone therapy, history of gastric bypass, prediabetes, hypothyroidism, depression, migraine, Szymanski, unprovoked PE, history of C. difficile, chronic anemia who presents to ED secondary to chest pain since 1:30 PM. 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 Pain radiated to right arm as well as under left armpit. She also felt pressure on throat. She also had associated nausea and chills. Symptoms lasted approximately 15 minutes until she called EMS. witnessed events. When EMS arrived she had 4 baby aspirin as well as 1 nitro. Pain initially 10/10 and nitro improved symptoms to 8/10. She was transported to ED. Initial EKG and troponin were unremarkable. EKG unchanged from prior tracings. Nitropaste was placed without significant i mprovement of symptoms. She also had IV fentanyl without improvement. She continues to complain of chest discomfort. She denies any recent illness, fever, chills, sweats, lightheadedness, dizziness, shortness breath at rest, cough, hemoptysis, emesis, abdominal pain. She did ambulate to bathroom recently and did feel short of breath with exertion. She denies any known Covid exposures. Her appetite is otherwise been okay. She only had hot chocolate for breakfast, but has not anything to eat since. She has had episodes of chest pain in past, but nothing this severe. Of significance she did have cardiac catheterization March 2020 with clean coronaries and only mild CAD. She also echocardiogram which revealed EF greater than 70% with mild LVH but otherwise unremarkable. Admission Exam Per Admitting Provider Constitutional: WD/WN, vitals as above, NAD, sitting up in bed, pleasant, conversing easily Head: Normocephalic, Atraumatic Eyes: PERRL, conjunctivae normal, anicteric sclerae ENMT: external ear and nose normal, oropharynx normal Neck: trachea midline, no thyromegaly normal visual inspection Respiratory: normal respiratory effort, lungs clear to auscultation, no wheeze, rales, rhonchi. Normal insp/exp effort, no accessory muscle use Cardiovascular: Mildly tachycardic regular rhythm, 1/6 ELIU at RUSB, bilateral lower extremity varicosities, no edema Vessels: no JVD or carotid bruit Chest: Chest pain is not reproducible, normal inspection of chest Abdomen: normal bowel sounds, soft, nontender, no hepatosplenomegaly Musculoskeletal: no cyanosis or clubbing, extremities motor strength 5/5 Skin: no rashes, warm and dry normal turgor Neurologic: PERRL, EOMI, accommodation nl, no face palsy, no dysarthria CN's II-XI intact bilaterally and moves all extremities Psychiatric: A+Ox3, euthymic affect Lymphatic: no cervical or axillary lymphadenopathy : deferred Principal Diagnosis Chest pain Discharge Exam Constitutional + obese; no acute distress Eyes PERRL, conjunctivae normal, anicteric sclerae ENMT external ear and nose normal, oropharynx normal Respiratory normal respiratory effort, lungs clear to auscultation Cardiovascular RRR, no murmur, no edema Gastrointestinal (Abdomen) normal bowel sounds, soft, nontender, no hepatosplenomegaly Musculoskeletal no cyanosis or clubbing, extremities motor strength 5/5 Neurologic PERRL, EOMI, accommodation nl, no face palsy, no dysarthria Psychiatric A+Ox3, euthymic affect Discharge Data Allergies Allergy/AdvReac Type Severity Reaction Status Date / Time oxycodone Allergy Intermediate Hives Verified 07/06/20 15:48 piperacillin Allergy Intermediate Pruritus Verified 07/06/20 15:48 tazobactam Allergy Intermediate Pruritus Verified 07/06/20 15:48 ketorolac Allergy Mild Itching Verified 07/06/20 15:48 vancomycin AdvReac Unknown deathly ill Verified 07/06/20 15:48 Consultations 07/06/20 17:12 ED Decision to Admit Stat Ordered Studies 07/06/20 14:16 CT angio chest PE protocol Stat No pathologically enlarged axillary mediastinal or hilar lymph nodes were visualized. There was no evidence of thoracic aortic dilatation. There were no pulmonary artery filling defects to indicate acute pulmonary embolism. No pleural effusions are visualized. There is an 8 mm right upper lobe lung cyst. There is no lobar consolidation. There are scattered areas of groundglass attenuation, likely atelectatic. There is a stable 3 mm left upper lobe pulmonary nodule. There is a stable 3 mm right upper lobe pulmonary nodule. IMPRESSION: 1. No evidence of acute pulmonary embolism 2. Stable subcentimeter pulmonary nodules 3. No evidence of pathologic adenopathy 4. No evidence of lobar consolidation 5. Scattered groundglass densities, likely atelectatic. Thoracic spine XRay Mild multilevel intervertebral disc space narrowing and spondylitic spurring with mostly moderate facet arthrosis. No acute fracture, subluxation or suspicious bone lesion. Surgical ciara project over the epigastric distribution. Cardiomegaly. IMPRESSION: No acute fracture or subluxation. Hospital Course (1) Precordial chest pain: 55-year-old female who has significant past medical history of psoriatic arthritis on long-term prednisone therapy, history of gastric bypass, prediabetes, hypothyroidism, depression, migraine, Szymanski, unprovoked PE, history of C. difficile, chronic anemia who presented to ED secondary to chest pain since 1:30 PM on the day of presentation Troponin trend was negative Reported recent cardiac catheterization 03/2020 -clean coronaries of mild CAD. No intervention required. Echocardiogram unremarkable at that time as well. CTA of chest done in ED which was negative for PE/thoracic arch dilatation Low suspicion for ACS considering findings. I also discussed with Dr Muniz Manager Installation and went over EKG tracings. Serial EKGs did not show ischemic changes Had mild central chest tenderness noted on exam which has resolved Likely musculoskeletal cause Tylenol for pain (2) Pre-diabetes: Last A1c 6.3 05/26/2020 Diet controlled (3) Psoriatic arthritis: Stable with arthropathy Continue prednisone (4) Migraine: (5) Depression: Continue Cymbalta, trazodone and as needed Ativan Mood stable (6) Hypothyroidism: Continue levothyroxine Total Time Total Time Spent Total Time Spent (In Minutes): 35 Total Time Includes: Examination of the Patient, Discharge Planning and Medication Reconciliation Discharge Plan Discharge Items Patient Disposition: Home - Self-Care Reason For Visit: CHEST PAIN Discharge Diagnosis: Chest pain Activity: Resume your previous activity Non-emergency contact: Primary Care Provider Call non-emergency contact if: you have any medication questions and your symptoms worsen Follow-up/Referrals: Richi Sutton DO [Primary Care Provider] - (Date & Time 07/13/2020 10:20 AM Provider Glendy Hutchins MD Department General Internal Medicine [facility] ) Diet: Heart Healthy Addtl Attending Provider Instructions: Ms Link, You came to the hospital complaining of chest pain. You were extensively evaluated with multiple tests for this. Cardiac workup did not show this was related to your heart. You are being discharged to follow up with your Primary Doctor. Please take tylenol as needed for pain. It was a pleasure taking care of you. Pending Studies at Discharge: No Stand-Alone Forms: My [facility], Smoking Cessation Medications and DC Order Prescriptions: New acetaminophen 325 mg Tablet 650 mg PO Q6 PRN (Reason: pain) Qty: 50 RF: 0 Continued sumatriptan succinate [Imitrex] 50 mg Tablet 50 mg PO DIRECTED PRN (Reason: Migraine Headache) RF: 0 levothyroxine [Synthroid] 25 mcg Tablet 25 mcg PO QAM RF: 0 pantoprazole [Protonix] 40 mg Tablet,Delayed Release (Dr/Ec) 40 mg PO BID RF: 0 ergocalciferol (vitamin D2) [Vitamin D2] 50,000 unit Capsule 50,000 units PO 2XWK RF: 0 magnesium oxide 400 mg magnesium Tablet 400 mg PO QAM RF: 0 propranolol [Inderal LA] 60 mg Capsule,Extended Release 24 Hr 60 mg PO QAM RF: 0 cholecalciferol (vitamin D3) [Vitamin D3] 50 mcg (2,000 unit) Capsule 2,000 unit PO QAM RF: 0 Ajovy Autoinjector 225 mg/1.5 mL Auto-Injector 225 mg SUBCUT MONTHLY RF: 0 lorazepam [Ativan] 0.5 mg Tablet 0.5 mg PO DAILY PRN (Reason: Anxiety) RF: 0 duloxetine 30 mg Capsule,Delayed Release(Dr/Ec) 30 mg PO BID RF: 0 trazodone 300 mg tablet 300 mg PO HS RF: 0 divalproex [Depakote ER] 250 mg Tablet Extended Release 24 Hr 750 mg PO HS RF: 0 prednisone 5 mg tablet 5 mg PO DAILY RF: 0 ondansetron 8 mg Tablet,Disintegrating 8 mg PO Q8H PRN (Reason: Nausea And Vomiting) RF: 0 albuterol sulfate 90 mcg/actuation HFA aerosol inhaler 2 puff INHALATION QID PRN (Reason: Shortness Of Breath Or Wheezing) RF: 0 promethazine 25 mg tablet 25 mg PO TID PRN (Reason: Nausea And Vomiting) RF: 0 dicyclomine 10 mg capsule 10 mg PO AC PRN (Reason: Abdominal Discomfort) RF: 0 Discharge Orders: Discharge Order (Routine); Ordered 07/09/20 Ordered By: Angelica Porter Admission Data Admit Date/Time: 07/08/20 18:27 Attending Provider: Angelica Porter I. Admit Provider: Tano Perry Primary Care Provider: Richi Sutton Other Providers: Tano Perry Other Interventions: Discharge Summary Assessment (RN) Last Done: 07/09/20 10:36
== END 2020-07-09 12:39 | disposition home or self-care (01) | DRG 313 ==
LOC: 2W 13:55 → ED 13:55 → SUATTDRO 17:14 → 2W 18:23

== ENCOUNTER 2023-02-02 13:50 | Inpatient (IN) ==
[2023-02-02] MEDS ORDERED: SODIUM CHLORIDE 0.9% 1000ML 1,000 ML IV STA (14:09)
[2023-02-02] MEDS ORDERED: SODIUM CHLORIDE 0.9% 500 ML IV SCH ×2 (14:15→20:23)
[2023-02-02] MEDS ORDERED: PANTOprazole 80 MG in DEXTROSE 5% 100 ML IV ONE (14:27)
[2023-02-02] MEDS ORDERED: ONDANSETRON INJ 2 MG/ML 2 ML VIAL IV STA (14:27)
[2023-02-02] MEDS ORDERED: PANTOPRAZOLE BOLUS/DRIP 1 EACH IV STA (14:27)
[2023-02-02] MEDS ORDERED: FAMOTIDINE 20MG IV PUSH 20 MG/5 ML SYR IV STA (14:27)
--- NOTE | 2023-02-02 14:48 | Emergency Department Note ---
Impression & Plan Acute upper gastrointestinal bleeding, History of gastric bypass, History of gastric ulcer ED Provider Note INFORMANT: Patient ED PROVIDER(S): Melvin Sheffield MD CHIEF COMPLAINT: Vomiting blood PLAN: Disposition: Admitted Condition: Good Outpatient prescription management: none Referral: None MEDICAL DECISION MAKING: Patient presented to emergency room because of vomiting blood. She has a history of gastric bypass and ulcer. Patient was evaluated. Her vital signs ar e stable. She was treated with IV fluids, morphine and Zofran. Patient did feel somewhat better with this but still had pain. She still noted some nausea. She was treated with Compazine and Dilaudid. The patient had an unremarkable CBC except for mild anemia which was stable. No leukocytosis. Coags negative. Chemistries including LFTs and lipase negative. Troponin negative. Patient's ECG showed old Q waves but no acute changes. CT imaging did not reveal any acute findings. Patient was treated with IV Protonix and Pepcid. Further management will be necessary in the hospital. [facility] Patient was evaluated in the admitted for further management. Discussed with manager of financial After review of the information above and other included data, I feel the patient requires admission. Triage Nursing notes reviewed and agree them. Vital Signs: reviewed and remarkable for no significant abnormalities Prior /Outside records reviewed: Prior hospitalization record reviewed. Chest pain evaluation Differential diagnosis: Complication of gastric bypass, peptic ulcer disease, variceal bleed, gastritis, AVM, coagulopathy, inflammatory bowel disease, malignancy, Mis-Pozo tear, esophagitis,as well as other pathologies. Diagnostics, as interpreted by me: ECG: Twelve-lead ECG reveals a normal sinus rhythm at 85 bpm. LVH with inferior and anterior septal Q waves. No ST elevation. Cardiac Monitoring: Cardiac monitoring ordered by me: The patient was placed on continuous cardiac monitoring and observed. It revealed a normal sinus rhythm at 83 beats per minute without ectopy or evidence of dysrhythmia. Medical decision rules: none Imaging studies: CT scan of the abdomen pelvis is negative for acute pathology. No obstruction. No perforation HPI: The patient is a 57year old female who presents to the Emergency Room with complaints of upper abdominal pain and vomiting blood. This started yesterday and is persisting. The patient also notes the following associated symptoms, dark stool, nausea, left flank pain the patient has found no relieving factors. Current pain is rated as 9/10. Patient has history of gastric bypass and ul cers. States that she is on Protonix. Denies any alcohol or NSAID use. Pt denies LOC, headache, fevers, chills, diaphoresis, visual changes, neck pain, chest pain, breathing difficulties, back pain, urinary symptoms, numbness, weakness, lymphadenopathy, rash, or other complaints. PAST MEDICAL HISTORY: See Below, gastric ulcer PAST SURGICAL HISTORY: See Below, gastric bypass SOCIAL HISTORY: See Below, non-smoker HOME MEDICATIONS: See Below ALLERGIES: See Below VITALS: See Below PHYSICAL EXAMINATION: GENERAL: Awake, alert, uncomfortable-appearing, in no distress HENT: Normocephalic, atraumatic. Oropharynx unremarkable. EYES: Normal conjunctiva. Sclera non-icteric. NECK: Inspection normal. Non-tender. Supple. No nuchal rigidity. FROM. No masses. RESPIRATORY: Clear to auscultation. No wheezes. No rales. Normal respiratory effort. CARDIAC: Borderline tachycardic rate. Normal rhythm. No murmurs. No rubs. Extremities warm and well perfused. Pulses equal. No JVD. GI: Soft, non-distended. Epigastric tenderness to palpation. No rebound or guarding. No masses. RECTAL: Deferred. MUSCULOSKELETAL: Atraumatic. Chest examination reveals no tenderness. The back is symmetrical on inspection without obvious abnormality. There is left no CVA tenderness to palpation. No joint edema. LOWER EXTREMITIES: Calves are equal size bilaterally and non-tender. No edema. No discoloration. NEURO: Normal sensorium. No sensory or motor deficits noted. SKIN: No rash or jaundice noted. Past Med/Surg History Medical History (Updated 02/02/23 @ 21:05 by Vanesa Peña DO) Clostridium difficile colitis Depression Edema GERD (gastroesophageal reflux disease) History of DVT (deep vein thrombosis) History of pulmonary embolism "completed 6 months Coumadin therapy" On 06/27/16 17:03 Nuha Zarate wrote On 03/23/16 16:22 Dottie Montilla wrote "2000 per patient; s/p knee replacement" MINI (iron deficiency anemia) Psoriatic arthritis Sleep apnea Vertigo Surgical History (Updated 02/02/23 @ 14:48 by Melvin Sheffield MD) H/O wisdom tooth extraction History of appendectomy History of carpal tunnel surgery History of cholecystectomy S/P hysterectomy Status post appendectomy Status post cholecystectomy Status post gastric bypass for obesity Status post total knee replacement Family History Mother Rheumatoid arthritis Father Cancer blood cancer Denies family history of Hypertension Social History Smoking Status: Never smoker Do You Dip or Chew Tobacco: No; Hx Alcohol Use: No Hx Substance Use: No Preferred Language: Belarusian Communication Ability: Effective Wire Welder 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: No Beliefs That Will Affect Care: None marital status: Current Living Situation: Spouse and Family Feels Safe at Home: Yes Assistive Devices: Glasses Allergies Allergies Allergy/AdvReac Type Severity Reaction Status Date / Time ketorolac Allergy Intermediate Itching Verified 02/02/23 15:45 oxycodone Allergy Intermediate Hives Verified 02/02/23 15:45 piperacillin Allergy Intermediate Pruritus Verified 02/02/23 15:45 tazobactam Allergy Intermediate Pruritus Verified 02/02/23 15:45 vancomycin AdvReac Severe deathly ill Verified 02/02/23 15:45 Home Meds Home Medications Medication Instructions Recorded Confirmed ergocalciferol (vitamin D2) 1,250 50,000 units PO 2XWK 07/17/18 02/02/23 mcg (50,000 unit) capsule (Vitamin D2) levothyroxine 25 mcg tablet 25 mcg PO DAILYBB 07/17/18 02/02/23 (Synthroid) magnesium oxide 400 mg PO QAM 07/17/18 02/02/23 pantoprazole 40 mg tablet,delayed 40 mg PO BID 07/17/18 02/02/23 release (Protonix) sumatriptan succinate 50 mg tablet 50 mg PO DIRECTED PRN Migraine 07/17/18 02/02/23 (Imitrex) Headache duloxetine 30 mg capsule,delayed 30 mg PO BID 11/17/18 02/02/23 release divalproex 250 mg tablet,extended 750 mg PO HS 11/06/19 02/02/23 release 24 hr (Depakote ER) cholecalciferol (vitamin D3) 50 2,000 unit PO QAM 03/31/20 02/02/23 mcg (2,000 unit) capsule (Vitamin D3) propranolol 60 mg capsule,24 60 mg PO QAM 03/31/20 02/02/23 hr,extended release (Inderal LA) albuterol sulfate 90 mcg/actuation 2 puff inhalation QID PRN 07/06/20 02/02/23 aerosol inhaler Shortness Of Breath Or Wheezing dicyclomine 10 mg capsule 10 mg PO QAM 07/06/20 02/02/23 promethazine 25 mg tablet 25 mg PO TID PRN Nausea And 07/06/20 02/02/23 Vomiting trazodone 150 mg tablet 300 mg PO HS 01/02/21 02/02/23 ferrous sulfate 325 mg (65 mg 325 mg PO QAM 01/24/22 02/02/23 iron) tablet albuterol sulfate 2.5 mg/3 mL 2.5 mg inhalation DIRECTED PRN 02/02/23 02/02/23 (0.083 %) solution for nebulization Shortness Of Breath Or Wheezing fluticasone 250 mcg-salmeterol 50 1 inh inhalation BID 02/02/23 02/02/23 mcg/dose blistr powdr for inhalation (Advair Diskus) montelukast 10 mg tablet 10 mg PO QAM 02/02/23 02/02/23 tiotropium bromide 1.25 2 inh inhalation QPM 02/02/23 02/02/23 mcg/actuation mist for inhalation (Spiriva Respimat) Previous Rx's Medication Instructions Recorded acetaminophen 325 mg tablet 650 mg PO Q6 PRN pain #50 tabs 07/09/20 Results & Data (ED) Vital Signs Vital Signs - 24 hr 02/02/23 13:50 02/02/23 15:47 Temperature 36.9 C Temperature Source Temporal Artery Scan Pulse Rate 97 H 88 Respiratory Rate 20 Respiratory Effort / Characteristics Non-Labored Respiratory Depth Normal Blood Pressure 159/93 H Blood Pressure Mean 115 Pulse Oximetry 94 Oxygen Delivery Method Room Air Sepsis Recent Fever Within 48 Hours No Sepsis New/Unexplained Change in Mental Status N/A Sepsis Action Taken by Nursing No Action Required Laboratory Data 02/02/23 14:40 02/02/23 14:40 Lab Results 02/02/23 02/02/23 02/02/23 Range/Units 14:09 14:40 14:40 WBC 8.53 (4.8-10.8) K/ul RBC 4.21 (4.20-5.40) M/uL Hgb 11.3 L (12.0-16.0) g/dl Hct 34.1 L (37.0-47.0) % MCV 81.0 (80.0-100.0) fL MCH 26.8 (25.0-34.0) pg MCHC 33.1 (32.0-36.0) g/dL RDW Std Deviation 45.4 (36.4-46.3) fL RDW Coeff of Halley 15.3 H (11.5-14.5) % Plt Count 388 (130-400) K/uL MPV 9.0 L (9.4-12.4) fL Immature Gran % (Auto) 0.2 % Neut % (Auto) 62.8 % Lymph % (Auto) 26.0 % Kidder % (Auto) 9.3 % Eos % (Auto) 1.3 % Baso % (Auto) 0.4 % Neut # (Auto) 5.36 (1.40-6.50) K/uL Lymph # (Auto) 2.22 (1.2-3.4) K/uL Kidder # (Auto) 0.79 H (0.11-0.59) K/uL Eos # (Auto) 0.11 (0-0.50) K/uL Baso # (Auto) 0.03 (0-0.2) K/uL Immature Gran # (Auto) 0.02 (0.01-0.20) K/uL PT 10.3 (9.0-12.0) Seconds INR 0.9 (0.9-1.1) APTT 25.1 (21.0-31.0) Seconds PTT Ratio 0.9 Sodium (136-145) mmol/L Potassium (3.5-5.1) mmol/L Chloride (98-107) mmol/L Carbon Dioxide (21-32) mmol/L Anion Gap (3-11) BUN (6-23) mg/dl Creatinine (0.6-1.2) mg/dl Est Cr Clr Drug Dosing ml/min Est GFR ( Amer) ml/min Est GFR (Non-Af Amer) ml/min BUN/Creatinine Ratio (10-20) Glucose (70-99(Fasting)) mg/dl Calcium (8.6-10.3) mg/dl Total Bilirubin (0.2-1.0) mg/dl AST (13-39) U/L ALT (7-52) U/L Alkaline Phosphatase (34-104) U/L Troponin I High Sens (0-14) pg/ml Total Protein (6.0-8.3) gm/dl Albumin (3.4-5.0) gm/dl Globulin (2.5-4.0) gm/dl Albumin/Globulin Ratio (0.9-2) Lipase (11-82) U/L Urine Color Urine Appearance (Clear) Urine pH (4.5-7.5) Ur Specific [place] (1.000-1.030) Urine Protein (Negative) Urine Glucose (UA) (Negative) Urine Ketones (Negative) Urine Blood (Negative) Urine Nitrite (Negative) Urine Bilirubin (Negative) Urine Urobilinogen (Negative) Ur Leukocyte Esterase (Negative) SARS-CoV-2, RNA, NAAT (NEGATIVE) Blood Type Blood Type Recheck A Positive Antibody Screen 02/02/23 02/02/23 02/02/23 Range/Units 14:40 14:51 15:44 WBC (4.8-10.8) K/ul RBC (4.20-5.40) M/uL Hgb (12.0-16.0) g/dl Hct (37.0-47.0) % MCV (80.0-100.0) fL MCH (25.0-34.0) pg MCHC (32.0-36.0) g/dL RDW Std Deviation (36.4-46.3) fL RDW Coeff of Halley (11.5-14.5) % Plt Count (130-400) K/uL MPV (9.4-12.4) fL Immature Gran % (Auto) % Neut % (Auto) % Lymph % (Auto) % Kidder % (Auto) % Eos % (Auto) % Baso % (Auto) % Neut # (Auto) (1.40-6.50) K/uL Lymph # (Auto) (1.2-3.4) K/uL Kidder # (Auto) (0.11-0.59) K/uL Eos # (Auto) (0-0.50) K/uL Baso # (Auto) (0-0.2) K/uL Immature Gran # (Auto) (0.01-0.20) K/uL PT (9.0-12.0) Seconds INR (0.9-1.1) APTT (21.0-31.0) Seconds PTT Ratio Sodium 140 (136-145) mmol/L Potassium 3.9 (3.5-5.1) mmol/L Chloride 109 H (98-107) mmol/L Carbon Dioxide 25 (21-32) mmol/L Anion Gap 6 (3-11) BUN 12 (6-23) mg/dl Creatinine 0.88 (0.6-1.2) mg/dl Est Cr Clr Drug Dosing 82.3 ml/min Est GFR ( Amer) 83.4 ml/min Est GFR (Non-Af Amer) 71.9 ml/min BUN/Creatinine Ratio 13.6 (10-20) Glucose 86 (70-99(Fasting)) mg/dl Calcium 8.8 (8.6-10.3) mg/dl Total Bilirubin 0.3 (0.2-1.0) mg/dl AST 16 (13-39) U/L ALT 16 (7-52) U/L Alkaline Phosphatase 120 H (34-104) U/L Troponin I High Sens 2.4 (0-14) pg/ml Total Protein 6.2 (6.0-8.3) gm/dl Albumin 3.8 (3.4-5.0) gm/dl Globulin 2.4 L (2.5-4.0) gm/dl Albumin/Globulin Ratio 1.6 (0.9-2) Lipase 12 (11-82) U/L Urine Color Urine Appearance (Clear) Urine pH (4.5-7.5) Ur Specific [place] (1.000-1.030) Urine Protein (Negative) Urine Glucose (UA) (Negative) Urine Ketones (Negative) Urine Blood (Negative) Urine Nitrite (Negative) Urine Bilirubin (Negative) Urine Urobilinogen (Negative) Ur Leukocyte Esterase (Negative) SARS-CoV-2, RNA, NAAT NEGATIVE (NEGATIVE) Blood Type A Positive Blood Type Recheck Antibody Screen NEGATIVE 02/02/23 Range/Units 15:44 WBC (4.8-10.8) K/ul RBC (4.20-5.40) M/uL Hgb (12.0-16.0) g/dl Hct (37.0-47.0) % MCV (80.0-100.0) fL MCH (25.0-34.0) pg MCHC (32.0-36.0) g/dL RDW Std Deviation (36.4-46.3) fL RDW Coeff of Halley (11.5-14.5) % Plt Count (130-400) K/uL MPV (9.4-12.4) fL Immature Gran % (Auto) % Neut % (Auto) % Lymph % (Auto) % Kidder % (Auto) % Eos % (Auto) % Baso % (Auto) % Neut # (Auto) (1.40-6.50) K/uL Lymph # (Auto) (1.2-3.4) K/uL Kidder # (Auto) (0.11-0.59) K/uL Eos # (Auto) (0-0.50) K/uL Baso # (Auto) (0-0.2) K/uL Immature Gran # (Auto) (0.01-0.20) K/uL PT (9.0-12.0) Seconds INR (0.9-1.1) APTT (21.0-31.0) Seconds PTT Ratio Sodium (136-145) mmol/L Potassium (3.5-5.1) mmol/L Chloride (98-107) mmol/L Carbon Dioxide (21-32) mmol/L Anion Gap (3-11) BUN (6-23) mg/dl Creatinine (0.6-1.2) mg/dl Est Cr Clr Drug Dosing ml/min Est GFR ( Amer) ml/min Est GFR (Non-Af Amer) ml/min BUN/Creatinine Ratio (10-20) Glucose (70-99(Fasting)) mg/dl Calcium (8.6-10.3) mg/dl Total Bilirubin (0.2-1.0) mg/dl AST (13-39) U/L ALT (7-52) U/L Alkaline Phosphatase (34-104) U/L Troponin I High Sens (0-14) pg/ml Total Protein (6.0-8.3) gm/dl Albumin (3.4-5.0) gm/dl Globulin (2.5-4.0) gm/dl Albumin/Globulin Ratio (0.9-2) Lipase (11-82) U/L Urine Color Yellow Urine Appearance Clear (Clear) Urine pH 6.5 (4.5-7.5) Ur Specific [place] 1.010 (1.000-1.030) Urine Protein Negative (Negative) Urine Glucose (UA) Negative (Negative) Urine Ketones Negative (Negative) Urine Blood Negative (Negative) Urine Nitrite Negative (Negative) Urine Bilirubin Negative (Negative) Urine Urobilinogen Negative (Negative) Ur Leukocyte Esterase Negative (Negative) SARS-CoV-2, RNA, NAAT (NEGATIVE) Blood Type Blood Type Recheck Antibody Screen Administered Medications Sodium Chloride (Nss 1000ml) 1,000 mls @ 125 mls/hr IV .Q8H STA Stop: 02/02/23 22:08 Last Admin: 02/02/23 15:56 Dose: 125 mls/hr Documented By: CHEYENNE Pantoprazole Sodium 40 mg/ (Dextrose) 100 mls @ 20 mls/hr IV Q5H DRE Stop: 03/04/23 14:44 Last Admin: 02/02/23 15:56 Dose: 8 mg/hr, 20 mls/hr Documented By: CHEYENNE Discontinued Medications Hydromorphone HCl (Hydromorphone Inj 0.5 Mg/0.5 Ml Syr) 0.5 mg IV NOW STA Stop: 02/02/23 16:57 Last Admin: 02/02/23 17:17 Dose: 0.5 mg Documented By: CHEYENNE Sodium Chloride (Nss) 500 mls @ 999 mls/hr IV .Q31M DRE Stop: 02/02/23 14:45 Last Infusion: 02/02/23 16:10 Dose: 0 mls/hr Documented By: Admin: 02/02/23 14:48 Dose: 999 mls/hr Documented By: LEW Pantoprazole Sodium (Protonix Bolus/Drip) 0 mls @ 1 mls/hr IV ONE STA Stop: 02/02/23 14:28 Last Admin: 02/02/23 17:47 Dose: Not Given Documented By: FRANCO Pantoprazole Sodium 80 mg/ (Dextrose) 120 mls @ 400 mls/hr IV NOW ONE Stop: 02/02/23 14:44 Last Infusion: 02/02/23 16:10 Dose: 0 mls/hr Documented By: Admin: 02/02/23 14:52 Dose: 400 mls/hr Documented By: LEW Famotidine (Pepcid 20mg Iv Push) 20 mg in 5 mls @ 2.5 mls/min IV NOW STA Stop: 02/02/23 14:28 Last Admin: 02/02/23 14:48 Dose: 2.5 mls/min Documented By: LEW Prochlorperazine (Compazine) 1 mls @ 1 mls/min IV ONE ONE Stop: 02/02/23 16:57 Last Admin: 02/02/23 17:17 Dose: 1 mls/min Documented By: CHEYENNE Ioversol (Optiray 320 100ml) 85 ml IV ONCE ONE Stop: 02/02/23 16:05 Last Admin: 02/02/23 16:07 Dose: 85 ml Documented By: VON Morphine Sulfate (Morphine Sulfate 4 Mg/Ml 1 Ml Carp\\Vial) 4 mg IV Q15M PRN PRN Reason: Pain Stop: 02/16/23 14:26 Last Admin: 02/02/23 19:24 Dose: 4 mg Documented By: Admin: 02/02/23 14:49 Dose: 4 mg Documented By: LEW Ondansetron HCl (Ondansetron Inj 2 Mg/Ml 2 Ml Vial) 4 mg IV NOW STA Stop: 02/02/23 14:28 Last Admin: 02/02/23 14:49 Dose: 4 mg Documented By: LEW Imaging Data Radiologist's Impression: Abdomen/Pelvis CT 02/02/23 14:[address] WITH IV CONTRAST CT DOSE: 1578.49 mGy.cm HISTORY: gastric bypass, hematemesis, nausea, prior ulcers. TECHNIQUE: Multiaxial CT images of the abdomen and pelvis were performed following the use of intravenous contrast. A dose lowering technique was utilized adhering to the principles of ALARA. COMPARISON STUDY: Abdomen and pelvis CT 03/30/2022. FINDINGS: Mild dependent changes seen within the lung bases. No pneumoperitoneum. No pneumatosis. No acute fractures identified. Hepatic steatosis. Cholecystectomy. The main portal vein is patent. The pancreas and adrenal glands unremarkable. There are few punctate calcified granulomas within the spleen. The kidneys enhance normally. No hydronephrosis. Normal caliber abdominal aorta. No retroperitoneal or pelvic lymphadenopathy. No pelvic free fluid. There is mild pelvic floor collapse. Prior hysterectomy. The bladder is unremarkable. Colonic diverticulosis. No evidence for acute diverticulitis. No bowel wall thickening or obstruction. Prior Neel-en-Y gastric bypass. Prior appendectomy. IMPRESSION: 1. No bowel wall thickening or obstruction. 2. Colonic diverticulosis. No evidence for acute diverticulitis. 3. No hydronephrosis. 4. Hepatic steatosis. 5. Postoperative changes as described above. ACT 112: Negative or not required by law. Electronically signed by: Rob Wasserman M.D. 02/02/2023 4:23 PM Discharge Plan Visit Data Chief Complaint: Abdominal Pain Stated Complaint: REF BY DOC, ABDOMINAL CRAMPS, BLOODY STOOL ED Provider: Melvin Sheffield Discharge Problem: Acute upper gastrointestinal bleeding, History of gastric bypass, History of gastric ulcer Patient Disposition: Admitted As Inpatient Discharge Instructions Interventions: ED Discharge Assessment Last Done: 02/02/23 19:58
[2023-02-02] MEDS: MoRPHine SULFATE 4 MG/ML 1 ML CARP\\VIAL IV PRN ×2 (14:49→19:24)
[2023-02-02 15:07] LABS: Basophils # (auto) 0.03 K/uL (0-0.2); Basophils % (auto) 0.4 %; Eosinophils # (auto) 0.11 K/uL (0-0.50); Eosinophils % (auto) 1.3 %; Hematocrit (blood only) 34.1 % (37.0-47.0); Hemoglobin 11.3 g/dl (12.0-16.0); Immature Granulocytes # (auto) 0.02 K/uL (0.01-0.20); Immature Granulocytes % (auto) 0.2 %; Lymphocytes # (auto) 2.22 K/uL (1.2-3.4); Mean Corpuscular Hemoglobin 26.8 pg (25.0-34.0); Mean Corpuscular Hgb Conc 33.1 g/dL (32.0-36.0); Monocytes # (auto) 0.79 K/uL (0.11-0.59); Monocytes % (auto) 9.3 %; Neutrophils # (auto) 5.36 K/uL (1.40-6.50); Neutrophils % (auto) 62.8 %; Platelet Count 388 K/uL (130-400); RDW Coefficient of Variation 15.3 % (11.5-14.5); RDW Standard Deviation 45.4 fL (36.4-46.3); Red Blood Count 4.21 M/uL (4.20-5.40); White Blood Count 8.53 K/ul (4.8-10.8)
[2023-02-02 15:17] LABS: Albumin Globulin Ratio 1.6 (0.9-2); Albumin Level 3.8 gm/dl (3.4-5.0); BUN Creatinine Ratio 13.6 (10-20); Bilirubin,Total 0.3 mg/dl (0.2-1.0); Calcium 8.8 mg/dl (8.6-10.3); Creatinine Clr Calc Pharmacy 82.3 ml/min; Est GFR (African American) 83.4 ml/min; Est GFR (Non-African American) 71.9 ml/min; Globulin 2.4 gm/dl (2.5-4.0); Potassium 3.9 mmol/L (3.5-5.1); Total Protein 6.2 gm/dl (6.0-8.3)
[2023-02-02 15:23] LABS: Troponin I High Sensitivity 2.4 pg/ml (0-14)
[2023-02-02 15:24] LABS: INR 0.9 (0.9-1.1); Partial Thromboplastin Ratio 0.9; Partial Thromboplastin Time 25.1 Seconds (21.0-31.0); Prothrombin Time 10.3 Seconds (9.0-12.0)
[2023-02-02] MEDS: PANTOprazole 40 MG in DEXTROSE 5% 100 ML IV SCH ×2 (15:56→21:44)
[2023-02-02] MEDS ORDERED: OPTIRAY 320 100ml IV ONE (16:04)
[2023-02-02 16:09] LABS: Appearance Urine Clear (Clear); Bilirubin Urine Negative (Negative); Blood Urine Negative (Negative); Color Urine Yellow; Glucose Urine UA Negative (Negative); Ketones Urine Negative (Negative); Leukocyte Esterase Urine Negative (Negative); Nitrite Urine Negative (Negative); Protein Urine Negative (Negative); Urobilinogen Urine Negative (Negative); pH Urine 6.5 (4.5-7.5)
--- NOTE | 2023-02-02 16:24 | CT Scan Report ---
ABDOMEN AND PELVIS CT WITH IV CONTRAST CT DOSE: 1578.49 mGy.cm HISTORY: gastric bypass, hematemesis, nausea, prior ulcers. TECHNIQUE: Multiaxial CT images of the abdomen and pelvis were performed following the use of intrave nous contrast. A dose lowering technique was utilized adhering to the principles of ALARA. COMPARISON STUDY: Abdomen and pelvis CT 03/30/2022. FINDINGS: Mild dependent changes seen within the lung bases. No pneumoperitoneum. No pneumatosis. No acute fractures identified. Hepatic steatosis. Cholecystectomy. The main portal vein is patent. The p ancreas and adrenal glands unremarkable. There are few punctate calcified granulomas within the splee n. The kidneys enhance normally. No hydronephrosis. Normal caliber abdominal aorta. No retroperitonea l or pelvic lymphadenopathy. No pelvic free fluid. There is mild pelvic floor collapse. Prior hystere ctomy. The bladder is unremarkable. Colonic diverticulosis. No evidence for acute diverticulitis. No bowel wall thickening or obstruction. Prior Neel-en-Y gastric bypass. Prior appendectomy. IMPRESSION: 1. No bowel wall thickening or obstruction. 2. Colonic diverticulosis. No evidence for acute diverticulitis. 3. No hydronephrosis. 4. Hepatic steatosis. 5. Postoperative changes as described above. ACT 112: Negative or not required by law. Electronically signed by: Rob Wasserman M.D. 02/02/2023 4:23 PM
[2023-02-02] MEDS ORDERED: HYDROmorphone INJ 0.5 MG/0.5 ML SYR IV STA (16:56)
[2023-02-02] MEDS ORDERED: PROCHLORPERAZINE 1 ML IV ONE (16:56)
--- NOTE | 2023-02-02 17:19 | History & Physical Report ---
Date of Service February 02, 2023 Assessment & Plan (1) Melena: (2) History of gastric bypass: (3) History of gastric ulcer: (4) GERD (gastroesophageal reflux disease): Plan: - Admit to med tele - CT abd reviewed showing :No bowel wall thickening or obstruction. Colonic diverticulosis. No evidence for acute diverticulitis. No hydronephrosis. Hepatic steatosis. Postoperative changes as described above. - Started on protonix gtt in the ER, can switch to bid dosing if ok per gi - NPO for now except meds, ice chips ok - Continue NSS at 80 ml/hr for maintenance fluids - Hgb 11.3, baseline around 12, trend H&H q6H, next draw 2200 - Blood consent obtained at bedside, ordered type and cross, keep 1 U PRBC on hold - GI consulted for possible scope tomorrow - Dr. Camargo aware - ok for EGD if needed tomorrow with holiday weekend - Previous EGD in November 2019 showed normal esophagus, Neel-en-Y gastrojejunostomy found, healthy anastomosis, healthy mucosa. - Last colonoscopy in 08/30/2016 with moderate diverticulosis in the sigmoid colon, descending colon transverse colon and ascending, internal and external hemorrhoids - pt follows with Luciana Monson in GI, takes bentyl iron and protonix regularly (5) Migraine: Plan: - Stable, has not had migraine in 2 months, Imitrex as needed on hold - Off Ajovy for several months and previously failed topamax - Continue depakote 750 mg HS - Follows with neuro, Dr. Rowell as an outpatient - appears last saw Sarajusto Rushing 2 years ago in the office on outpatient epic review (6) Panic attack: Plan: - hx of such - pt is on propranolol, ativan (last used 2 months ago per pt) , cymbalta Can continue these medications. (7) Hypothyroidism: Plan: - Cont levothyroxine 25 mcg daily, TSH 2.22 in February 2022 (8) DM II (diabetes mellitus, type II), controlled: Plan: -Last A1c was 6.6 on 03/02/2022, recheck with a.m. labs -Diet and exercise to be encouraged throughout hospital stay DVT PPx: - teds, scds CODE: Full code Dispo: From home, likely to remain in the hospital x 1-2 days A total of 77 minutes were spent with greater than 50% of that time face to face with the patient, personally reviewing all current laboratories, imaging studi es, past medication reconciliation, outpatient chart review, and discussion with specialists to collaborate care for the patient with attending. Please see attending documentation for corrections and/or additions. History of Present Illness Chief Complaint: Abdominal pain Primary Care Provider: Krystyna John MD This is a 57 yo F with PMHx of history of DM II, hypothyroidism, migraine, IgA, psoriatic arthropathy, DVT/PE, GERD, depression, iron deficiency anemia, history of Neel-en-Y gastric bypass, appendectomy, cholecystectomy who presents to the hospital with acute onset abdominal pain with lower abdominal pelvic area cramping, patient reports having a bowel movement on 02/01 which was dark in color, he reports having blood on the paper, had an episode of vomiting which looked dark in color. She has not vomited or had a bowel movement since being here in the hospital. Pt has been hemodynamically stable since being here. Pt reports having a gastric ulcer previously and that she had similar episodes at that time. Pt reports having had abdominal pain in LLQ which started on Sunday, where she was driving an pulled over because it was so bad. Pt notes it improved slightly on Sunday because she mostly stayed in bed all day, and then on Sunday pt had pain which occurred in the LUQ, and had a bowel movement which was dark in color - moreso than normal even while being on iron tablet daily, and with some bright red blood on the toilet paper. No blood in the toilet bowel. Her BM was loose and reports this was similar yesterday. Pain was not relieved with passing bowel movement. Pt notes then today she had nausea and vomiting with chocolate colored emesis. Over the week she has minimally tolerated food due to nauseous throughout the week - diet consisted of toast, applesauce, yogurt and was able to drink fluids. She complains of some lightheadedness today with standing from a seated position, denies falls. Overall her pain progressively worsened throughout the week, slightly improved with pain meds in the ER. Admits to chills yesterday, no fever documented. She has tolerated her medications and took them this morning. Allergies Allergy/AdvReac Type Severity Reaction Status Date / Time ketorolac Allergy Intermediate Itching Verified 02/02/23 15:45 oxycodone Allergy Intermediate Hives Verified 02/02/23 15:45 piperacillin Allergy Intermediate Pruritus Verified 02/02/23 15:45 tazobactam Allergy Intermediate Pruritus Verified 02/02/23 15:45 vancomycin AdvReac Severe deathly ill Verified 02/02/23 15:45 Home Medications Medication Instructions Recorded Confirmed Type ergocalciferol (vitamin D2) 1,250 50,000 units PO 2XWK 07/17/18 02/02/23 History mcg (50,000 unit) capsule (Vitamin D2) levothyroxine 25 mcg tablet 25 mcg PO DAILYBB 07/17/18 02/02/23 History (Synthroid) magnesium oxide 400 mg PO QAM 07/17/18 02/02/23 History pantoprazole 40 mg tablet,delayed 40 mg PO BID 07/17/18 02/02/23 History release (Protonix) sumatriptan succinate 50 mg tablet 50 mg PO DIRECTED PRN Migraine 07/17/18 02/02/23 History (Imitrex) Headache duloxetine 30 mg capsule,delayed 30 mg PO BID 11/17/18 02/02/23 History release divalproex 250 mg tablet,extended 750 mg PO HS 11/06/19 02/02/23 History release 24 hr (Depakote ER) cholecalciferol (vitamin D3) 50 2,000 unit PO QAM 03/31/20 02/02/23 History mcg (2,000 unit) capsule (Vitamin D3) propranolol 60 mg capsule,24 60 mg PO QAM 03/31/20 02/02/23 History hr,extended release (Inderal LA) albuterol sulfate 90 mcg/actuation 2 puff inhalation QID PRN 07/06/20 02/02/23 History aerosol inhaler Shortness Of Breath Or Wheezing dicyclomine 10 mg capsule 10 mg PO QAM 07/06/20 02/02/23 History promethazine 25 mg tablet 25 mg PO TID PRN Nausea And 07/06/20 02/02/23 History Vomiting acetaminophen 325 mg tablet 650 mg PO Q6 PRN pain #50 tabs 07/09/20 02/02/23 Rx trazodone 150 mg tablet 300 mg PO HS 01/02/21 02/02/23 History ferrous sulfate 325 mg (65 mg 325 mg PO QAM 01/24/22 02/02/23 History iron) tablet albuterol sulfate 2.5 mg/3 mL 2.5 mg inhalation DIRECTED PRN 02/02/23 02/02/23 History (0.083 %) solution for nebulization Shortness Of Breath Or Wheezing fluticasone 250 mcg-salmeterol 50 1 inh inhalation BID 02/02/23 02/02/23 History mcg/dose blistr powdr for inhalation (Advair Diskus) montelukast 10 mg tablet 10 mg PO QAM 02/02/23 02/02/23 History tiotropium bromide 1.25 2 inh inhalation QPM 02/02/23 02/02/23 History mcg/actuation mist for inhalation (Spiriva Respimat) Past Med/Surg History Medical History (Updated 02/02/23 @ 21:05 by Vanesa Peña DO) Clostridium difficile colitis Depression Edema GERD (gastroesophageal reflux disease) History of DVT (deep vein thrombosis) History of pulmonary embolism "completed 6 months Coumadin therapy" On 06/27/16 17:03 Nuha Zarate wrote On 03/23/16 16:22 Dottie Montilla wrote "2000 per patient; s/p knee replacement" MINI (iron deficiency anemia) Psoriatic arthritis Sleep apnea Vertigo Surgical History H/O wisdom tooth extraction History of appendectomy History of carpal tunnel surgery History of cholecystectomy S/P hysterectomy Status post appendectomy Status post cholecystectomy Status post gastric bypass for obesity Status post total knee replacement Family History Mother Rheumatoid arthritis Father Cancer blood cancer Denies family history of Hypertension Social History Smoking Status: Never smoker Do You Dip or Chew Tobacco: No; Hx Alcohol Use: No Hx Substance Use: No Preferred Language: Kinyarwanda Communication Ability: Effective 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 Beliefs That Will Affect Care: None marital status: Current Living Situation: Spouse and Family Feels Safe at Home: Yes Assistive Devices: Glasses Review of Systems Review of Systems: Constitutional: No fever, sweats or chills Eyes: No diplopia, no worsening or blurred vision ENT: normal hearing, no trouble swallowing Respiratory: No cough, sputum, dyspnea at rest or on exertion Cardiovascular: No chest pain, tightness or palpitations Abdomen: As per HPI + pain, nausea, vomiting,and diarrhea , no constipation Musculoskeletal: No joint pain, calf pain, swelling Neurologic: No weakness, numbness/tingling, or balance problems Psychiatric: No anxiety or depression Skin: No rash or itch Physical Exam Physical Exam: General: awake, alert, no apparent distress, Obese with BMI of 38.1 Head: Normocephalic, atraumatic ENT: PERRL, EOMI, no pharyngeal exudate, mucous membranes dry Chest: Clear to auscultation, on room air, no adventitious breath sounds Cardiac: Regular rate and rhythm, no murmur, no JVD, normal peripheral pulses, good capillary refill Abdominal: NABS x 4 quadrants, soft, nondistended, +tender to palpation throughout, no rebound tenderness or guarding Extremities: Normal inspection, + varicose veins, no peripheral edema or erythema, calfs nontender to palpation Psych: Normal mood and affect Neuro: AAO x 3, strength intact bilaterally and rated 5/5, no motor deficits, speech is clear, no peripheral sensory deficits Results & Data Results & Data Vital Signs (Past 12 Hours) Vital Signs Temp Pulse Resp BP Pulse Ox O2 Del Method 02/02/23 15:47 88 02/02/23 13:50 36.9 C 97 H 20 159/93 H 94 Room Air Laboratory Results 02/02/23 02/02/23 02/02/23 15:44 15:44 14:51 WBC RBC Hgb Hct MCV MCH MCHC RDW Std Deviation RDW Coeff of Halley Plt Count MPV Immature Gran % (Auto) Neut % (Auto) Lymph % (Auto) [place] % (Auto) Eos % (Auto) Baso % (Auto) Neut # (Auto) Lymph # (Auto) [place] # (Auto) Eos # (Auto) Baso # (Auto) Immature Gran # (Auto) PT INR APTT PTT Ratio Sodium Potassium Chloride Carbon Dioxide Anion Gap BUN Creatinine Est Cr Clr Drug Dosing Est GFR ( Amer) Est GFR (Non-Af Amer) BUN/Creatinine Ratio Glucose Calcium Total Bilirubin AST ALT Alkaline Phosphatase Troponin I High Sens Total Protein Albumin Globulin Albumin/Globulin Ratio Lipase Urine Color Yellow Urine Appearance Clear Urine pH 6.5 Ur Specific [place] 1.010 Urine Protein Negative Urine Glucose (UA) Negative Urine Ketones Negative Urine Blood Negative Urine Nitrite Negative Urine Bilirubin Negative Urine Urobilinogen Negative Ur Leukocyte Esterase Negative SARS-CoV-2, RNA, NAAT NEGATIVE Blood Type A Positive Antibody Screen NEGATIVE 02/02/23 02/02/23 02/02/23 14:40 14:40 14:40 WBC 8.53 RBC 4.21 Hgb 11.3 L Hct 34.1 L MCV 81.0 MCH 26.8 MCHC 33.1 RDW Std Deviation 45.4 RDW Coeff of Halley 15.3 H Plt Count 388 MPV 9.0 L Immature Gran % (Auto) 0.2 Neut % (Auto) 62.8 Lymph % (Auto) 26.0 [place] % (Auto) 9.3 Eos % (Auto) 1.3 Baso % (Auto) 0.4 Neut # (Auto) 5.36 Lymph # (Auto) 2.22 [place] # (Auto) 0.79 H Eos # (Auto) 0.11 Baso # (Auto) 0.03 Immature Gran # (Auto) 0.02 PT 10.3 INR 0.9 APTT 25.1 PTT Ratio 0.9 Sodium 140 Potassium 3.9 Chloride 109 H Carbon Dioxide 25 Anion Gap 6 BUN 12 Creatinine 0.88 Est Cr Clr Drug Dosing 82.3 Est GFR ( Amer) 83.4 Est GFR (Non-Af Amer) 71.9 BUN/Creatinine Ratio 13.6 Glucose 86 Calcium 8.8 Total Bilirubin 0.3 AST 16 ALT 16 Alkaline Phosphatase 120 H Troponin I High Sens 2.4 Total Protein 6.2 Albumin 3.8 Globulin 2.4 L Albumin/Globulin Ratio 1.6 Lipase 12 Urine Color Urine Appearance Urine pH Ur Specific [place] Urine Protein Urine Glucose (UA) Urine Ketones Urine Blood Urine Nitrite Urine Bilirubin Urine Urobilinogen Ur Leukocyte Esterase SARS-CoV-2, RNA, NAAT Blood Type Antibody Screen Diagnostic Findings Abdomen/Pelvis CT 02/02/23 14:[address] WITH IV CONTRAST CT DOSE: 1578.49 mGy.cm HISTORY: gastric bypass, hematemesis, nausea, prior ulcers. TECHNIQUE: Multiaxial CT images of the abdomen and pelvis were performed following the use of intravenous contrast. A dose lowering technique was utilized adhering to the principles of ALARA. COMPARISON STUDY: Abdomen and pelvis CT 03/30/2022. FINDINGS: Mild dependent changes seen within the lung bases. No pneumoperitoneum . No pneumatosis. No acute fractures identified. Hepatic steatosis. Cholecystectomy. The main portal vein is patent. The pancreas and adrenal glands unremarkable. There are few punctate calcified granulomas within the spleen. The kidneys enhance normally. No hydronephrosis. Normal caliber abdominal aorta. No retroperitoneal or pelvic lymphadenopathy. No pelvic free fluid. There is mild pelvic floor collapse. Prior hysterectomy. The bladder is unremarkable. Colonic diverticulosis. No evidence for acute diverticulitis. No bowel wall thickening or obstruction. Prior Neel-en-Y gastric bypass. Prior appendectomy. IMPRESSION: 1. No bowel wall thickening or obstruction. 2. Colonic diverticulosis. No evidence for acute diverticulitis. 3. No hydronephrosis. 4. Hepatic steatosis. 5. Postoperative changes as described above. ACT 112: Negative or not required by law. Electronically signed by: Rob Wasserman M.D. 02/02/2023 4:23 PM Code Status & VTE Plan Code Status Full code - discussed with the pt at bedside Supervising Physician Co-Signing Physician Notes 57 yo obese female with h/o gastric by pass and h/o PUD in the past presents with acute nausea, hematemesis and melena in the past 48 hours along with severe abdominal cramping. She is still nauseaous and having pain requiring antiemetics and IV narcotic therapy to control this. She is not hemodynamically unstable and no significant anemia at this time requiring transfusion. She denies alcohol use or any NSAID use recnetly and no changes in meds. Reports chills today that were severe but denies fevers. Some loose stools reported with the melena. Physical exam reveals and obese female in NAD, abdomen is soft but very tender to palpation in the epigastric>RUQ> LUQ. No distension or guarding present. Skin is warm and dry. CBC with baseline H/H, chem panel is WNL, hepatic panel is normal. UA clear. A/P CT with IV contrast reveals no bowel wall thickening or obstruction, no evidence for diverticulitis. 1. melena 2. abdominal pain 3. morbid obesity 4. s/p gastric bypass 57 yo F with h/o gastric bypass presenting wtih melena, persistent nausea and severe abdominal cramping. Pain is moving around and into her back somewhat. Lactate pending. CT scan rules out lower intestinal issues such as SBO or diverticulitis. Pain is mostly epigastric in nature. Lipase is normal and clinical picture is not consistent with acute pancreatitis. Given h/o PUD, this is on the differential. This patient also reports chronic daily migraines despite taking approximately 5-6 medications. She reports infrequent use of Imitrex. States that she is a "[employer]epsi-holic" but has cut down recently. Sees [facility] for these headaches. Will continue with antiemetic and pain meds for now and await GI recommendations. Cont protonix drip. If pain worse overnight, consider trial of carafate vs maalox. Casey, DO
[2023-02-02] MEDS ORDERED: SODIUM CHLORIDE 0.9% 250 ML IV PRN (18:18)
[2023-02-02] MEDS ORDERED: ACETAMINOPHEN 325 MG TAB PO PRN (20:23)
[2023-02-02] MEDS ORDERED: ALBUTEROL 0.083% NEBU SOLN 3 ML VIAL INH PRN (20:51)
[2023-02-02 22:18] LABS: Hematocrit (blood only) 32.9 % (37.0-47.0); Hemoglobin 10.7 g/dl (12.0-16.0)
[2023-02-02] MEDS: HYDROmorphone INJ 0.5 MG/0.5 ML SYR IV PRN (22:23)
[2023-02-02] MEDS: ONDANSETRON INJ 2 MG/ML 2 ML VIAL IV PRN (22:24)
[2023-02-02] MEDS: traZODone HCL 100 MG TAB PO SCH (22:50)
[2023-02-02] MEDS: BENZONATATE 100 MG CAPSULE PO SCH (22:50)
[2023-02-02] MEDS: DIVALPROEX EXTENDED RELEASE 250 MG TABCR PO SCH (22:50)
[2023-02-02] MEDS: DULoxetine HCL 30 MG CAP PO SCH (22:51)
[2023-02-03] MEDS: traZODone HCL 100 MG TAB PO SCH ×2 (00:16→21:07)
[2023-02-03] MEDS: PANTOprazole 40 MG in DEXTROSE 5% 100 ML IV SCH ×2 (02:51→07:40)
[2023-02-03] MEDS: PROMETHAZINE HCL 12.5 MG in SODIUM CHLORIDE 0.9% 50 ML IV PRN ×2 (03:46→17:48)
[2023-02-03] MEDS: HYDROmorphone INJ 0.5 MG/0.5 ML SYR IV PRN ×3 (05:50→17:24)
[2023-02-03 06:48] LABS: Hematocrit (blood only) 32.4 % (37.0-47.0); Hemoglobin 10.4 g/dl (12.0-16.0); Mean Corpuscular Hemoglobin 27.1 pg (25.0-34.0); Mean Corpuscular Hgb Conc 32.1 g/dL (32.0-36.0); Mean Corpuscular Volume 84.4 fL (80.0-100.0); Platelet Count 322 K/uL (130-400); RDW Coefficient of Variation 15.3 % (11.5-14.5); RDW Standard Deviation 46.9 fL (36.4-46.3); Red Blood Count 3.84 M/uL (4.20-5.40); White Blood Count 5.93 K/ul (4.8-10.8)
[2023-02-03 07:22] LABS: BUN Creatinine Ratio 15.6 (10-20); Calcium 8.4 mg/dl (8.6-10.3); Creatinine Clr Calc Pharmacy 93.6 ml/min; Est GFR (Non-African American) 84.5 ml/min; Potassium 4.2 mmol/L (3.5-5.1)
[2023-02-03 07:23] LABS: Estimated Average Glucose 143 mg/dl; Hemoglobin A1C 6.6 % (4.5-5.6)
--- NOTE | 2023-02-03 08:57 | Gastrointestinal Consultation ---
Date of Consultation February 03, 2023 Assessment & Plan (1) Melena: Difficult to know the significance of her bleeding. Her symptoms with the cramping are lower GI and she did "pass blood" on Sunday. She had vomiting yesterday but her description of what she vomited is a little confusing. She currently is not vomiting and has not had a bowel movement in three days. This would point against bleeding of a significant amount. Without further vomiting or melena and with stable H/H I would observe for now and address the cramping. She has no CT evidence of diverticulitis now. I think she may have gotten a GI bug and that has led to her cramping. For now I would observe but can always intervene with EGD if necessary. I would increase bentyl to four times daily. Try her on liquids. Hopefully if things settle down she can go home in a few days. History of Present Illness Reason for Consultation: Gi bleeding Attending Physician: Jh Gonzalez MD History of Present Illness 57 year old female who tells me that on Sunday she started having some lower abdominal cramping. These "severe" cramps would last about ten minutes and then go away. They would come and go through the day. She denies diarrhea associated with the cramps. On Sunday (three days ago) she had a solid stool "with blood". She says that yesterday she "vomited blood". She said it looked like coffee grounds or chocolate with blood in it. She did that twice but has not done it since. Her main complaint now is the cramping. She has not had a bowel movement since Sunday. H/H was 10.7 and is now 10.4. She does have a history of a gastric ulcer about 4-5 years ago. She is s/p gastric bypass. She maintains on protonix. Denies NSAID usage. Last EGD in 2019 normal postop stomach. Last colonoscopy "a couple of years ago" and showed hemorrhoids. She does not typically have problems with gastric cramping. Allergies Allergy/AdvReac Type Severity Reaction Status Date / Time ketorolac Allergy Intermediate Itching Verified 02/02/23 15:45 oxycodone Allergy Intermediate Hives Verified 02/02/23 15:45 piperacillin Allergy Intermediate Pruritus Verified 02/02/23 15:45 tazobactam Allergy Intermediate Pruritus Verified 02/02/23 15:45 vancomycin AdvReac Severe deathly ill Verified 02/02/23 15:45 Home Medications Medication Instructions Recorded Confirmed Type ergocalciferol (vitamin D2) 1,250 50,000 units PO 2XWK 07/17/18 02/02/23 History mcg (50,000 unit) capsule (Vitamin D2) levothyroxine 25 mcg tablet 25 mcg PO DAILYBB 07/17/18 02/02/23 History (Synthroid) magnesium oxide 400 mg PO QAM 07/17/18 02/02/23 History pantoprazole 40 mg tablet,delayed 40 mg PO BID 07/17/18 02/02/23 History release (Protonix) sumatriptan succinate 50 mg tablet 50 mg PO DIRECTED PRN Migraine 07/17/18 02/02/23 History (Imitrex) Headache duloxetine 30 mg capsule,delayed 30 mg PO BID 11/17/18 02/02/23 History release divalproex 250 mg tablet,extended 750 mg PO HS 11/06/19 02/02/23 History release 24 hr (Depakote ER) cholecalciferol (vitamin D3) 50 2,000 unit PO QAM 03/31/20 02/02/23 History mcg (2,000 unit) capsule (Vitamin D3) propranolol 60 mg capsule,24 60 mg PO QAM 03/31/20 02/02/23 History hr,extended release (Inderal LA) albuterol sulfate 90 mcg/actuation 2 puff inhalation QID PRN 07/06/20 02/02/23 History aerosol inhaler Shortness Of Breath Or Wheezing dicyclomine 10 mg capsule 10 mg PO QAM 07/06/20 02/02/23 History promethazine 25 mg tablet 25 mg PO TID PRN Nausea And 07/06/20 02/02/23 History Vomiting acetaminophen 325 mg tablet 650 mg PO Q6 PRN pain #50 tabs 07/09/20 02/02/23 Rx trazodone 150 mg tablet 300 mg PO HS 01/02/21 02/02/23 History ferrous sulfate 325 mg (65 mg 325 mg PO QAM 01/24/22 02/02/23 History iron) tablet albuterol sulfate 2.5 mg/3 mL 2.5 mg inhalation DIRECTED PRN 02/02/23 02/02/23 History (0.083 %) solution for nebulization Shortness Of Breath Or Wheezing fluticasone 250 mcg-salmeterol 50 1 inh inhalation BID 02/02/23 02/02/23 History mcg/dose blistr powdr for inhalation (Advair Diskus) montelukast 10 mg tablet 10 mg PO QAM 02/02/23 02/02/23 History tiotropium bromide 1.25 2 inh inhalation QPM 02/02/23 02/02/23 History mcg/actuation mist for inhalation (Spiriva Respimat) Patient History Medical History Clostridium difficile colitis Depression Edema GERD (gastroesophageal reflux disease) History of DVT (deep vein thrombosis) History of pulmonary embolism "completed 6 months Coumadin therapy" On 06/27/16 17:03 Nuha Zarate wrote On 03/23/16 16:22 Dottie Montilla wrote "2000 per patient; s/p knee replacement" MINI (iron deficiency anemia) Psoriatic arthritis Sleep apnea Vertigo Surgical History H/O wisdom tooth extraction History of appendectomy History of carpal tunnel surgery History of cholecystectomy S/P hysterectomy Status post appendectomy Status post cholecystectomy Status post gastric bypass for obesity Status post total knee replacement Family History Mother Rheumatoid arthritis Father Cancer blood cancer Denies family history of Hypertension Social History Smoking Status: Never smoker Second Hand Exposure: No; Do You Dip or Chew Tobacco: No; Hx Alcohol Use: No Hx Substance Use: No Preferred Language: Ghanaian Communication Ability: Effective Cream Ripener Required: No Beliefs That Will Affect Care: None marital status: Current Living Situation: Spouse Other Information That Helps Us Care for You: No Feels Safe at Home: Yes Safety Concerns: Feels Safe At This Time Assistive Devices: Glasses Review of Systems Review of Systems: All systems reviewed & are unremarkable except as noted in HPI & below Physical Exam Constitutional: WD/WN, vitals as above no acute distress Eyes: PERRL, conjunctivae normal, anicteric sclerae ENMT: external ear and nose normal, oropharynx normal Neck: trachea midline, no thyromegaly Respiratory: normal respiratory effort, lungs clear to auscultation Cardiovascular: RRR, no murmur, no edema Gastrointestinal (Abdomen): Inspection/Auscultation: abdomen normal to inspection and normal bowel sounds Percussion/Palpation: + abdomen tender (diffusely) Musculoskeletal: Extremities: no cyanosis and no clubbing Skin: no rashes, warm and dry Neurologic: PERRL, EOMI, accommodation nl, no face palsy, no dysarthria Psychiatric: Orientation: alert and oriented x 3 Results & Data Vital Signs (Past 12 Hours) Vital Signs Temp Pulse Pulse Pulse Resp BP BP 02/03/23 08:12 36.6 C 78 18 130/83 02/03/23 04:22 36.5 C 79 20 114/75 02/02/23 23:08 36.4 C L 78 18 131/90 02/02/23 23:05 80 02/02/23 21:45 02/02/23 21:45 36.4 C L 83 20 149/95 H Pulse Ox O2 Del Method 02/03/23 08:12 90 Room Air 02/03/23 04:22 92 Room Air 02/02/23 23:08 94 Room Air 02/02/23 23:05 02/02/23 21:45 Room Air 02/02/23 21:45 94 Room Air Laboratory Results 02/02/23 02/02/23 02/02/23 14:09 14:40 14:40 WBC 8.53 RBC 4.21 Hgb 11.3 L Hct 34.1 L MCV 81.0 MCH 26.8 MCHC 33.1 RDW Std Deviation 45.4 RDW Coeff of Halley 15.3 H Plt Count 388 MPV 9.0 L Immature Gran % (Auto) 0.2 Neut % (Auto) 62.8 Lymph % (Auto) 26.0 [place] % (Auto) 9.3 Eos % (Auto) 1.3 Baso % (Auto) 0.4 Neut # (Auto) 5.36 Lymph # (Auto) 2.22 [place] # (Auto) 0.79 H Eos # (Auto) 0.11 Baso # (Auto) 0.03 Immature Gran # (Auto) 0.02 PT 10.3 INR 0.9 APTT 25.1 PTT Ratio 0.9 Sodium Potassium Chloride Carbon Dioxide Anion Gap BUN Creatinine Est Cr Clr Drug Dosing Est GFR ( Amer) Est GFR (Non-Af Amer) BUN/Creatinine Ratio Glucose Estimat Average Glucose Hemoglobin A1c Lactate Calcium Total Bilirubin AST ALT Alkaline Phosphatase Troponin I High Sens Total Protein Albumin Globulin Albumin/Globulin Ratio Lipase Urine Color Urine Appearance Urine pH Ur Specific [place] Urine Protein Urine Glucose (UA) Urine Ketones Urine Blood Urine Nitrite Urine Bilirubin Urine Urobilinogen Ur Leukocyte Esterase SARS-CoV-2, RNA, NAAT Blood Type Blood Type Recheck A Positive Antibody Screen 02/02/23 02/02/23 02/02/23 14:40 14:51 15:44 WBC RBC Hgb Hct MCV MCH MCHC RDW Std Deviation RDW Coeff of Halley Plt Count MPV Immature Gran % (Auto) Neut % (Auto) Lymph % (Auto) [place] % (Auto) Eos % (Auto) Baso % (Auto) Neut # (Auto) Lymph # (Auto) [place] # (Auto) Eos # (Auto) Baso # (Auto) Immature Gran # (Auto) PT INR APTT PTT Ratio Sodium 140 Potassium 3.9 Chloride 109 H Carbon Dioxide 25 Anion Gap 6 BUN 12 Creatinine 0.88 Est Cr Clr Drug Dosing 82.3 Est GFR ( Amer) 83.4 Est GFR (Non-Af Amer) 71.9 BUN/Creatinine Ratio 13.6 Glucose 86 Estimat Average Glucose Hemoglobin A1c Lactate Calcium 8.8 Total Bilirubin 0.3 AST 16 ALT 16 Alkaline Phosphatase 120 H Troponin I High Sens 2.4 Total Protein 6.2 Albumin 3.8 Globulin 2.4 L Albumin/Globulin Ratio 1.6 Lipase 12 Urine Color Urine Appearance Urine pH Ur Specific [place] Urine Protein Urine Glucose (UA) Urine Ketones Urine Blood Urine Nitrite Urine Bilirubin Urine Urobilinogen Ur Leukocyte Esterase SARS-CoV-2, RNA, NAAT NEGATIVE Blood Type A Positive Blood Type Recheck Antibody Screen NEGATIVE 02/02/23 02/02/23 02/02/23 15:44 21:39 21:39 WBC RBC Hgb 10.7 L Hct 32.9 L MCV MCH MCHC RDW Std Deviation RDW Coeff of Halley Plt Count MPV Immature Gran % (Auto) Neut % (Auto) Lymph % (Auto) [place] % (Auto) Eos % (Auto) Baso % (Auto) Neut # (Auto) Lymph # (Auto) [place] # (Auto) Eos # (Auto) Baso # (Auto) Immature Gran # (Auto) PT INR APTT PTT Ratio Sodium Potassium Chloride Carbon Dioxide Anion Gap BUN Creatinine Est Cr Clr Drug Dosing Est GFR ( Amer) Est GFR (Non-Af Amer) BUN/Creatinine Ratio Glucose Estimat Average Glucose Hemoglobin A1c Lactate 1.0 Calcium Total Bilirubin AST ALT Alkaline Phosphatase Troponin I High Sens Total Protein Albumin Globulin Albumin/Globulin Ratio Lipase Urine Color Yellow Urine Appearance Clear Urine pH 6.5 Ur Specific [place] 1.010 Urine Protein Negative Urine Glucose (UA) Negative Urine Ketones Negative Urine Blood Negative Urine Nitrite Negative Urine Bilirubin Negative Urine Urobilinogen Negative Ur Leukocyte Esterase Negative SARS-CoV-2, RNA, NAAT Blood Type Blood Type Recheck Antibody Screen 02/03/23 02/03/23 02/03/23 06:12 06:12 06:12 WBC 5.93 RBC 3.84 L Hgb 10.4 L Hct 32.4 L MCV 84.4 MCH 27.1 MCHC 32.1 RDW Std Deviation 46.9 H RDW Coeff of Halley 15.3 H Plt Count 322 MPV 9.0 L Immature Gran % (Auto) Neut % (Auto) Lymph % (Auto) [place] % (Auto) Eos % (Auto) Baso % (Auto) Neut # (Auto) Lymph # (Auto) [place] # (Auto) Eos # (Auto) Baso # (Auto) Immature Gran # (Auto) PT INR APTT PTT Ratio Sodium 140 Potassium 4.2 Chloride 110 H Carbon Dioxide 26 Anion Gap 4 BUN 12 Creatinine 0.77 Est Cr Clr Drug Dosing 93.6 Est GFR ( Amer) 98.0 Est GFR (Non-Af Amer) 84.5 BUN/Creatinine Ratio 15.6 Glucose 111 H Estimat Average Glucose 143 Hemoglobin A1c 6.6 H Lactate Calcium 8.4 L Total Bilirubin AST ALT Alkaline Phosphatase Troponin I High Sens Total Protein Albumin Globulin Albumin/Globulin Ratio Lipase Urine Color Urine Appearance Urine pH Ur Specific [place] Urine Protein Urine Glucose (UA) Urine Ketones Urine Blood Urine Nitrite Urine Bilirubin Urine Urobilinogen Ur Leukocyte Esterase SARS-CoV-2, RNA, NAAT Blood Type Blood Type Recheck Antibody Screen Diagnostic Findings Abdomen/Pelvis CT 02/02/23 14:[address] WITH IV CONTRAST CT DOSE: 1578.49 mGy.cm HISTORY: gastric bypass, hematemesis, nausea, prior ulcers. TECHNIQUE: Multiaxial CT images of the abdomen and pelvis were performed following the use of intravenous contrast. A dose lowering technique was utilized adhering to the principles of ALARA. COMPARISON STUDY: Abdomen and pelvis CT 03/30/2022. FINDINGS: Mild dependent changes seen within the lung bases. No pneumoperitoneum. No pneumatosis. No acute fractures identified. Hepatic steatosis. Cholecystectomy. The main portal vein is patent. The pancreas and adrenal glands unremarkable. There are few punctate calcified granulomas within the spleen. The kidneys enhance normally. No hydronephrosis. Normal caliber abdominal aorta. No retroperitoneal or pelvic lymphadenopathy. No pelvic free fluid. There is mild pelvic floor collapse. Prior hysterectomy. The bladder is unremarkable. Colonic diverticulosis. No evidence for acute diverticulitis. No bowel wall thickening or obstruction. Prior Neel-en-Y gastric bypass. Prior appendectomy. IMPRESSION: 1. No bowel wall thickening or obstruction. 2. Colonic diverticulosis. No evidence for acute diverticulitis. 3. No hydronephrosis. 4. Hepatic steatosis. 5. Postoperative changes as described above. ACT 112: Negative or not required by law. Electronically signed by: Rob Wasserman M.D. 02/02/2023 4:23 PM
[2023-02-03] MEDS ORDERED: DICYCLOMINE HCL 10 MG CAP PO SCH ×2 (09:00→14:00)
[2023-02-03] MEDS: BENZONATATE 100 MG CAPSULE PO SCH ×3 (09:15→20:36)
[2023-02-03] MEDS: MAGNESIUM OXIDE 400 MG TAB PO SCH (09:15)
[2023-02-03] MEDS: LEVOTHYROXINE SODIUM 25 MCG TABLET PO SCH (09:15)
[2023-02-03] MEDS: MONTELUKAST SODIUM 10 MG TABLET PO SCH (09:15)
[2023-02-03] MEDS: PROPRANOLOL HCL 60 MG LA CAP PO SCH (09:15)
[2023-02-03] MEDS: CHOLECALCIFEROL 1,000 UNITS 25 MCG TAB PO SCH (09:15)
[2023-02-03] MEDS: DULoxetine HCL 30 MG CAP PO SCH ×2 (09:15→20:36)
[2023-02-03] MEDS: UMECLIDINIUM BROMIDE 62.5MCG/BLISTER 7 PUFFS/INHALER INH SCH (09:19)
[2023-02-03] MEDS: FLUTICASONE/VILANTEROL 200/25MCG 14 PUFFS/INHALER INH SCH (09:19)
[2023-02-03] MEDS ORDERED: ACETAMINOPHEN 1,000 MG/100 ML VIAL IV STA (09:27)
[2023-02-03] MEDS: ONDANSETRON INJ 2 MG/ML 2 ML VIAL IV PRN (09:27)
--- NOTE | 2023-02-03 10:28 | Electrocardiogram Report ---
Test Reason : Blood Pressure : / mmHG Vent. Rate : 085 BPM Atrial Rate : 085 BPM P-R Int : 180 ms QRS Dur : 072 ms QT Int : 366 ms P-R-T Axes : 022 -09 064 degrees QTc Int : 435 ms Normal sinus rhythm Minimal voltage criteria for LVH, may be normal variant ( R in aVL ) Inferior infarct (cited on or before 30-MAR-2022) Anteroseptal infarct (cited on or before 30-MAR-2022) Abnormal ECG When compared with ECG of 30-MAR-2022 11:52, No significant change was found Confirmed by Ean Sales ([id number]) on 02/03/2023 10:27:49 AM Referred By: Krystyna John Confirmed By:Ean Sales
[2023-02-03] MEDS: DICYCLOMINE HCL 10 MG CAP PO SCH ×3 (11:31→20:37)
--- NOTE | 2023-02-03 13:43 | Hospitalist Progress Note ---
Date of Service February 03, 2023 Assessment & Plan (1) Melena: (2) History of gastric bypass: (3) History of gastric ulcer: (4) GERD (gastroesophageal reflux disease): Plan: Presented to the hospital with lower abdominal pain; cramping in nature. Reported to have dark bowel movemen and dark vomiting. CT abdomen pelvis on admission reviewed; No bowel wall thickening or obstruction. Colonic diverticulosis. No evidence for acute diverticulitis. No hydronephrosis. Hepatic steatosis Labs reviewed; no leukocytosis Hemoglobin stable at 10-11 GI recs appreciated. Recommended close observation without any intervention for now. Recommended to increase Bentyl and oral liquids. Pain control with Dilaudid. Protonix twice daily, Phenergan for vomiting. (5) Migraine: Plan: - Stable, has not had migraine in 2 months, Imitrex as needed on hold - Off Ajovy for several months and previously failed topamax - Continue depakote 750 mg HS - Follows with neuro, Dr. Rowell as an outpatient - appears last saw Sarajusto Rushing 2 years ago in the office on outpatient epic review (6) Panic attack: Plan: - hx of such - pt is on propranolol, ativan (last used 2 months ago per pt) , cymbalta Can continue these medications. (7) Hypothyroidism: Plan: - Cont levothyroxine 25 mcg daily, TSH 2.22 in February 2022 (8) DM II (diabetes mellitus, type II), controlled: Plan: -A1c of 6.6% -Diet and exercise to be encouraged throughout hospital stay DVT PPx: - teds, scds CODE: Full code Dispo: From home, likely to remain in the hospital x 1-2 days Please note the above document was generated using voice recognition software. It may contain grammatical, syntax or spelling errors. Any formal questions or concerns about the content, text or information contained within the body of this dictation should be directly addressed to the provider for clarification Admission and Anticipated Discharge Date Admission Date: February 02, 2023 Subjective Patient seen and examined at bedside. She reports crampy abdominal pain and nausea. No vomiting or diarrhea. Review of Systems Review of Systems: All systems reviewed & are unremarkable except as noted in Subjective Physical Exam Physical Exam: General: awake, alert, no apparent distress, Obese with BMI of 38.1 Head: Normocephalic, atraumatic ENT: PERRL, EOMI, no pharyngeal exudate, mucous membranes dry Chest: Clear to auscultation, on room air, no adventitious breath sounds Cardiac: Regular rate and rhythm, no murmur, no JVD, normal peripheral pulses, good capillary refill Abdominal: NABS x 4 quadrants, soft, nondistended, mild tenderness present in lower abdomen. Extremities: Normal inspection, + varicose veins, no peripheral edema or erythema, calfs nontender to palpation Psych: Normal mood and affect Neuro: AAO x 3, strength intact bilaterally and rated 5/5, no motor deficits, speech is clear, no peripheral sensory deficits Results & Data Results & Data Vital Signs (Past 12 Hours) Vital Signs Temp Pulse Pulse Resp BP Pulse Ox O2 Del Method 02/03/23 11:08 36.4 C L 83 18 130/82 91 Room Air 02/03/23 07:00 79 02/03/23 08:12 36.6 C 78 18 130/83 90 Room Air 02/03/23 04:22 36.5 C 79 20 114/75 92 Room Air Laboratory Results Laboratory Results WBC 5.93 K/ul (4.8-10.8) 02/03/23 06:12 RBC 3.84 M/uL (4.20-5.40) L 02/03/23 06:12 Hgb 10.4 g/dl (12.0-16.0) L 02/03/23 06:12 Hct 32.4 % (37.0-47.0) L 02/03/23 06:12 MCV 84.4 fL (80.0-100.0) 02/03/23 06:12 MCH 27.1 pg (25.0-34.0) 02/03/23 06:12 MCHC 32.1 g/dL (32.0-36.0) 02/03/23 06:12 RDW Std Deviation 46.9 fL (36.4-46.3) H 02/03/23 06:12 RDW Coeff of Halley 15.3 % (11.5-14.5) H 02/03/23 06:12 Plt Count 322 K/uL (130-400) 02/03/23 06:12 MPV 9.0 fL (9.4-12.4) L 02/03/23 06:12 Immature Gran % (Auto) 0.2 % 02/02/23 14:40 Neut % (Auto) 62.8 % 02/02/23 14:40 Lymph % (Auto) 26.0 % 02/02/23 14:40 [place] % (Auto) 9.3 % 02/02/23 14:40 Eos % (Auto) 1.3 % 02/02/23 14:40 Baso % (Auto) 0.4 % 02/02/23 14:40 Neut # (Auto) 5.36 K/uL (1.40-6.50) 02/02/23 14:40 Lymph # (Auto) 2.22 K/uL (1.2-3.4) 02/02/23 14:40 [place] # (Auto) 0.79 K/uL (0.11-0.59) H 02/02/23 14:40 Eos # (Auto) 0.11 K/uL (0-0.50) 02/02/23 14:40 Baso # (Auto) 0.03 K/uL (0-0.2) 02/02/23 14:40 Immature Gran # (Auto) 0.02 K/uL (0.01-0.20) 02/02/23 14:40 PT 10.3 Seconds (9.0-12.0) 02/02/23 14:40 INR 0.9 (0.9-1.1) 02/02/23 14:40 APTT 25.1 Seconds (21.0-31.0) 02/02/23 14:40 PTT Ratio 0.9 02/02/23 14:40 Sodium 140 mmol/L (136-145) 02/03/23 06:12 Potassium 4.2 mmol/L (3.5-5.1) 02/03/23 06:12 Chloride 110 mmol/L (98-107) H 02/03/23 06:12 Carbon Dioxide 26 mmol/L (21-32) 02/03/23 06:12 Anion Gap 4 (3-11) 02/03/23 06:12 BUN 12 mg/dl (6-23) 02/03/23 06:12 Creatinine 0.77 mg/dl (0.6-1.2) 02/03/23 06:12 Est Cr Clr Drug Dosing 93.6 ml/min 02/03/23 06:12 Est GFR ( Amer) 98.0 ml/min 02/03/23 06:12 Est GFR (Non-Af Amer) 84.5 ml/min 02/03/23 06:12 BUN/Creatinine Ratio 15.6 (10-20) 02/03/23 06:12 Glucose 111 mg/dl (70-99(Fasting)) H 02/03/23 06:12 Estimat Average Glucose 143 mg/dl 02/03/23 06:12 Hemoglobin A1c 6.6 % (4.5-5.6) H 02/03/23 06:12 Lactate 1.0 mmol/L (0.4-2.0) 02/02/23 21:39 Calcium 8.4 mg/dl (8.6-10.3) L 02/03/23 06:12 Total Bilirubin 0.3 mg/dl (0.2-1.0) 02/02/23 14:40 AST 16 U/L (13-39) 02/02/23 14:40 ALT 16 U/L (7-52) 02/02/23 14:40 Alkaline Phosphatase 120 U/L (34-104) H 02/02/23 14:40 Troponin I High Sens 2.4 pg/ml (0-14) 02/02/23 14:40 Total Protein 6.2 gm/dl (6.0-8.3) 02/02/23 14:40 Albumin 3.8 gm/dl (3.4-5.0) 02/02/23 14:40 Globulin 2.4 gm/dl (2.5-4.0) L 02/02/23 14:40 Albumin/Globulin Ratio 1.6 (0.9-2) 02/02/23 14:40 Lipase 12 U/L (11-82) 02/02/23 14:40 Urine Color Yellow 02/02/23 15:44 Urine Appearance Clear (Clear) 02/02/23 15:44 Urine pH 6.5 (4.5-7.5) 02/02/23 15:44 Ur Specific [place] 1.010 (1.000-1.030) 02/02/23 15:44 Urine Protein Negative (Negative) 02/02/23 15:44 Urine Glucose (UA) Negative (Negative) 02/02/23 15:44 Urine Ketones Negative (Negative) 02/02/23 15:44 Urine Blood Negative (Negative) 02/02/23 15:44 Urine Nitrite Negative (Negative) 02/02/23 15:44 Urine Bilirubin Negative (Negative) 02/02/23 15:44 Urine Urobilinogen Negative (Negative) 02/02/23 15:44 Ur Leukocyte Esterase Negative (Negative) 02/02/23 15:44 SARS-CoV-2, RNA, NAAT NEGATIVE (NEGATIVE) 02/02/23 15:44 Blood Type A Positive 02/02/23 14:51 Blood Type Recheck A Positive 02/02/23 14:09 Antibody Screen NEGATIVE 02/02/23 14:51 Impressions Abdomen/Pelvis CT 02/02/23 14:[address] WITH IV CONTRAST CT DOSE: 1578.49 mGy.cm HISTORY: gastric bypass, hematemesis, nausea, prior ulcers. TECHNIQUE: Multiaxial CT images of the abdomen and pelvis were performed following the use of intravenous contrast. A dose lowering technique was utilized adhering to the principles of ALARA. COMPARISON STUDY: Abdomen and pelvis CT 03/30/2022. FINDINGS: Mild dependent changes seen within the lung bases. No pneumoperitoneum. No pneumatosis. No acute fractures identified. Hepatic steatosis. Cholecystectomy. The main portal vein is patent. The pancreas and adrenal glands unremarkable. There are few punctate calcified granulomas within the spleen. The kidneys enhance normally. No hydronephrosis. Normal caliber abdominal aorta. No retroperitoneal or pelvic lymphadenopathy. No pelvic free fluid. There is mild pelvic floor collapse. Prior hysterectomy. The bladder is unremarkable. Colonic diverticulosis. No evidence for acute diverticulitis. No bowel wall thickening or obstruction. Prior Neel-en-Y gastric bypass. Prior appendectomy. IMPRESSION: 1. No bowel wall thickening or obstruction. 2. Colonic diverticulosis. No evidence for acute diverticulitis. 3. No hydronephrosis. 4. Hepatic steatosis. 5. Postoperative changes as described above. ACT 112: Negative or not required by law. Electronically signed by: Rob Wasserman M.D. 02/02/2023 4:23 PM
[2023-02-03] MEDS ORDERED: ACETAMINOPHEN 1000 MG/100 ML IV IV ONE (14:18)
[2023-02-03] MEDS: PANTOprazole 40 MG in SYRINGE 0 ML IV SCH (20:37)
[2023-02-03] MEDS: DIVALPROEX EXTENDED RELEASE 250 MG TABCR PO SCH (20:37)
[2023-02-03] MEDS: ACETAMINOPHEN 1,000 MG/100 ML VIAL IV PRN (21:34)
[2023-02-04] MEDS: traZODone HCL 100 MG TAB PO SCH ×2 (00:12→22:14)
[2023-02-04] MEDS: HYDROmorphone INJ 0.5 MG/0.5 ML SYR IV PRN ×4 (06:15→18:08)
[2023-02-04] MEDS: LEVOTHYROXINE SODIUM 25 MCG TABLET PO SCH (06:15)
[2023-02-04] MEDS: PROMETHAZINE HCL 12.5 MG in SODIUM CHLORIDE 0.9% 50 ML IV PRN ×3 (06:17→18:37)
[2023-02-04 06:37] LABS: Basophils # (auto) 0.04 K/uL (0-0.2); Basophils % (auto) 0.8 %; Eosinophils # (auto) 0.19 K/uL (0-0.50); Eosinophils % (auto) 3.9 %; Hematocrit (blood only) 32.7 % (37.0-47.0); Hemoglobin 10.6 g/dl (12.0-16.0); Immature Granulocytes # (auto) 0.01 K/uL (0.01-0.20); Immature Granulocytes % (auto) 0.2 %; Lymphocytes % (auto) 34.5 %; Mean Corpuscular Hemoglobin 26.8 pg (25.0-34.0); Mean Corpuscular Hgb Conc 32.4 g/dL (32.0-36.0); Mean Corpuscular Volume 82.6 fL (80.0-100.0); Mean Platelet Volume 9.1 fL (9.4-12.4); Monocytes # (auto) 0.45 K/uL (0.11-0.59); Monocytes % (auto) 9.1 %; Neutrophils # (auto) 2.54 K/uL (1.40-6.50); Neutrophils % (auto) 51.5 %; Platelet Count 315 K/uL (130-400); RDW Standard Deviation 44.9 fL (36.4-46.3); Red Blood Count 3.96 M/uL (4.20-5.40); White Blood Count 4.93 K/ul (4.8-10.8)
[2023-02-04 06:47] LABS: Albumin Globulin Ratio 1.6 (0.9-2); Albumin Level 3.3 gm/dl (3.4-5.0); BUN Creatinine Ratio 12.5 (10-20); Bilirubin,Total 0.3 mg/dl (0.2-1.0); Calcium 8.5 mg/dl (8.6-10.3); Creatinine Clr Calc Pharmacy 82.6 ml/min; Est GFR (African American) 83.4 ml/min; Est GFR (Non-African American) 71.9 ml/min; Globulin 2.1 gm/dl (2.5-4.0); Potassium 4.2 mmol/L (3.5-5.1); Total Protein 5.4 gm/dl (6.0-8.3)
[2023-02-04] MEDS: ACETAMINOPHEN 1,000 MG/100 ML VIAL IV PRN (08:00)
[2023-02-04] MEDS: DICYCLOMINE HCL 10 MG CAP PO SCH ×4 (08:02→20:23)
[2023-02-04] MEDS: BENZONATATE 100 MG CAPSULE PO SCH ×3 (08:02→20:23)
[2023-02-04] MEDS: DULoxetine HCL 30 MG CAP PO SCH ×2 (08:02→20:23)
[2023-02-04] MEDS: PANTOprazole 40 MG in SYRINGE 0 ML IV SCH ×2 (08:03→20:23)
[2023-02-04] MEDS: MONTELUKAST SODIUM 10 MG TABLET PO SCH (08:03)
[2023-02-04] MEDS: PROPRANOLOL HCL 60 MG LA CAP PO SCH (08:03)
[2023-02-04] MEDS: CHOLECALCIFEROL 1,000 UNITS 25 MCG TAB PO SCH (08:03)
[2023-02-04] MEDS: MAGNESIUM OXIDE 400 MG TAB PO SCH (08:03)
[2023-02-04] MEDS: FLUTICASONE/VILANTEROL 200/25MCG 14 PUFFS/INHALER INH SCH (08:04)
[2023-02-04] MEDS: UMECLIDINIUM BROMIDE 62.5MCG/BLISTER 7 PUFFS/INHALER INH SCH (08:04)
--- NOTE | 2023-02-04 10:03 | Gastroenterology Progress Note ---
Date of Service February 04, 2023 Assessment & Plan (1) Left sided abdominal pain: Plan: She is improving. It is difficult to tell how bad "cramping" is. Admit CT did not show anything of concern. Will try increasing bentyl to 20 mg qid. Admission and Anticipated Discharge Date Admission Date: February 02, 2023 Subjective Nausea better but pain still an issue. She is getting bentyl four times a day and it works when she gets it but returns in between doses. She has not had a bowel movement in two days. She does not feel constipated though. H/H are stable Physical Exam Physical Exam: She looks well Results & Data Vital Signs (Past 12 Hours) Vital Signs Temp Pulse Pulse Pulse Resp BP Pulse Ox 02/04/23 08:00 02/04/23 08:02 36.5 C 70 16 136/84 93 02/04/23 07:00 71 02/04/23 06:14 60 133/77 02/04/23 04:15 36.4 C L 63 18 113/72 93 02/04/23 00:41 61 02/03/23 23:39 36.5 C 64 18 113/76 92 02/03/23 22:17 O2 Del Method 02/04/23 08:00 Room Air 02/04/23 08:02 Room Air 02/04/23 07:00 02/04/23 06:14 02/04/23 04:15 Room Air 02/04/23 00:41 02/03/23 23:39 Room Air 02/03/23 22:17 Room Air
[2023-02-04] MEDS: ONDANSETRON INJ 2 MG/ML 2 ML VIAL IV PRN ×2 (10:11→16:26)
--- NOTE | 2023-02-04 12:22 | Hospitalist Progress Note ---
Date of Service February 04, 2023 Assessment & Plan (1) Melena: (2) History of gastric bypass: (3) History of gastric ulcer: (4) GERD (gastroesophageal reflux disease): Plan: Presented to the hospital with lower abdominal pain; cramping in nature. Reported to have dark bowel movemen and dark vomiting. CT abdomen pelvis on admission reviewed; No bowel wall thickening or obstruction. Colonic diverticulosis. No evidence for acute diverticulitis. No hydronephrosis. Hepatic steatosis Labs reviewed; no leukocytosis Hemoglobin stable at 10-11 Discussed with GI; recommended close observation without any intervention for now. Recommended to increase Bentyl and oral liquids. Pain control with Tylenol and Dilaudid. Protonix twice daily, Phenergan for vomiting. (5) Migraine: Plan: - Stable, has not had migraine in 2 months, Imitrex as needed on hold - Off Ajovy for several months and previously failed topamax - Continue depakote 750 mg HS - Follows with neuro, Dr. Rowell as an outpatient - appears last saw Sara Rushing 2 years ago in the office on outpatient epic review (6) Panic attack: Plan: - hx of such - pt is on propranolol, ativan (last used 2 months ago per pt) , cymbalta Can continue these medications. (7) Hypothyroidism: Plan: - Cont levothyroxine 25 mcg daily, TSH 2.22 in February 2022 (8) DM II (diabetes mellitus, type II), controlled: Plan: -A1c of 6.6% -Diet and exercise to be encouraged throughout hospital stay DVT PPx: - heparin CODE: Full code Dispo: From home, likely to remain in the hospital x 1-2 days Please note the above document was generated using voice recognition software. It may contain grammatical, syntax or spelling errors. Any formal questions or concerns about the content, text or information contained within the body of this dictation should be directly addressed to the provider for clarification Admission and Anticipated Discharge Date Admission Date: February 02, 2023 Subjective Patient reports that abdominal cramps were getting worse. Afebrile. Hb stable Review of Systems Review of Systems: All systems reviewed & are unremarkable except as noted in Subjective Physical Exam Physical Exam: General: awake, alert, no apparent distress, Obese with BMI of 38.1 Head: Normocephalic, atraumatic ENT: PERRL, EOMI, no pharyngeal exudate, mucous membranes dry Chest: Clear to auscultation, on room air, no adventitious breath sounds Cardiac: Regular rate and rhythm, no murmur, no JVD, normal peripheral pulses, good capillary refill Abdominal: NABS x 4 quadrants, soft, nondistended, mild tenderness present in lower abdomen. Extremities: Normal inspection, + varicose veins, no peripheral edema or erythema, calfs nontender to palpation Psych: Normal mood and affect Neuro: AAO x 3, strength intact bilaterally and rated 5/5, no motor deficits, speech is clear, no peripheral sensory deficits Results & Data Results & Data Vital Signs (Past 12 Hours) Vital Signs Temp Pulse Pulse Pulse Resp BP Pulse Ox 02/04/23 08:00 02/04/23 08:02 36.5 C 70 16 136/84 93 02/04/23 07:00 71 02/04/23 06:14 60 133/77 02/04/23 04:15 36.4 C L 63 18 113/72 93 02/04/23 00:41 61 O2 Del Method 02/04/23 08:00 Room Air 02/04/23 08:02 Room Air 02/04/23 07:00 02/04/23 06:14 02/04/23 04:15 Room Air 02/04/23 00:41 Laboratory Results Laboratory Results WBC 4.93 K/ul (4.8-10.8) 02/04/23 05:47 RBC 3.96 M/uL (4.20-5.40) L 02/04/23 05:47 Hgb 10.6 g/dl (12.0-16.0) L 02/04/23 05:47 Hct 32.7 % (37.0-47.0) L 02/04/23 05:47 MCV 82.6 fL (80.0-100.0) 02/04/23 05:47 MCH 26.8 pg (25.0-34.0) 02/04/23 05:47 MCHC 32.4 g/dL (32.0-36.0) 02/04/23 05:47 RDW Std Deviation 44.9 fL (36.4-46.3) 02/04/23 05:47 RDW Coeff of Halley 15.0 % (11.5-14.5) H 02/04/23 05:47 Plt Count 315 K/uL (130-400) 02/04/23 05:47 MPV 9.1 fL (9.4-12.4) L 02/04/23 05:47 Immature Gran % (Auto) 0.2 % 02/04/23 05:47 Neut % (Auto) 51.5 % 02/04/23 05:47 Lymph % (Auto) 34.5 % 02/04/23 05:47 [place] % (Auto) 9.1 % 02/04/23 05:47 Eos % (Auto) 3.9 % 02/04/23 05:47 Baso % (Auto) 0.8 % 02/04/23 05:47 Neut # (Auto) 2.54 K/uL (1.40-6.50) 02/04/23 05:47 Lymph # (Auto) 1.70 K/uL (1.2-3.4) 02/04/23 05:47 [place] # (Auto) 0.45 K/uL (0.11-0.59) 02/04/23 05:47 Eos # (Auto) 0.19 K/uL (0-0.50) 02/04/23 05:47 Baso # (Auto) 0.04 K/uL (0-0.2) 02/04/23 05:47 Immature Gran # (Auto) 0.01 K/uL (0.01-0.20) 02/04/23 05:47 PT 10.3 Seconds (9.0-12.0) 02/02/23 14:40 INR 0.9 (0.9-1.1) 02/02/23 14:40 APTT 25.1 Seconds (21.0-31.0) 02/02/23 14:40 PTT Ratio 0.9 02/02/23 14:40 Sodium 138 mmol/L (136-145) 02/04/23 05:47 Potassium 4.2 mmol/L (3.5-5.1) 02/04/23 05:47 Chloride 106 mmol/L (98-107) 02/04/23 05:47 Carbon Dioxide 28 mmol/L (21-32) 02/04/23 05:47 Anion Gap 4 (3-11) 02/04/23 05:47 BUN 11 mg/dl (6-23) 02/04/23 05:47 Creatinine 0.88 mg/dl (0.6-1.2) 02/04/23 05:47 Est Cr Clr Drug Dosing 82.6 ml/min 02/04/23 05:47 Est GFR ( Amer) 83.4 ml/min 02/04/23 05:47 Est GFR (Non-Af Amer) 71.9 ml/min 02/04/23 05:47 BUN/Creatinine Ratio 12.5 (10-20) 02/04/23 05:47 Glucose 92 mg/dl (70-99(Fasting)) 02/04/23 05:47 Estimat Average Glucose 143 mg/dl 02/03/23 06:12 Hemoglobin A1c 6.6 % (4.5-5.6) H 02/03/23 06:12 Lactate 1.0 mmol/L (0.4-2.0) 02/02/23 21:39 Calcium 8.5 mg/dl (8.6-10.3) L 02/04/23 05:47 Total Bilirubin 0.3 mg/dl (0.2-1.0) 02/04/23 05:47 AST 29 U/L (13-39) 02/04/23 05:47 ALT 26 U/L (7-52) 02/04/23 05:47 Alkaline Phosphatase 108 U/L (34-104) H 02/04/23 05:47 Troponin I High Sens 2.4 pg/ml (0-14) 02/02/23 14:40 Total Protein 5.4 gm/dl (6.0-8.3) L 02/04/23 05:47 Albumin 3.3 gm/dl (3.4-5.0) L 02/04/23 05:47 Globulin 2.1 gm/dl (2.5-4.0) L 02/04/23 05:47 Albumin/Globulin Ratio 1.6 (0.9-2) 02/04/23 05:47 Lipase 12 U/L (11-82) 02/02/23 14:40 Urine Color Yellow 02/02/23 15:44 Urine Appearance Clear (Clear) 02/02/23 15:44 Urine pH 6.5 (4.5-7.5) 02/02/23 15:44 Ur Specific [place] 1.010 (1.000-1.030) 02/02/23 15:44 Urine Protein Negative (Negative) 02/02/23 15:44 Urine Glucose (UA) Negative (Negative) 02/02/23 15:44 Urine Ketones Negative (Negative) 02/02/23 15:44 Urine Blood Negative (Negative) 02/02/23 15:44 Urine Nitrite Negative (Negative) 02/02/23 15:44 Urine Bilirubin Negative (Negative) 02/02/23 15:44 Urine Urobilinogen Negative (Negative) 02/02/23 15:44 Ur Leukocyte Esterase Negative (Negative) 02/02/23 15:44 SARS-CoV-2, RNA, NAAT NEGATIVE (NEGATIVE) 02/02/23 15:44 Blood Type A Positive 02/02/23 14:51 Blood Type Recheck A Positive 02/02/23 14:09 Antibody Screen NEGATIVE 02/02/23 14:51 Impressions Abdomen/Pelvis CT 02/02/23 14:[address] WITH IV CONTRAST CT DOSE: 1578.49 mGy.cm HISTORY: gastric bypass, hematemesis, nausea, prior ulcers. TECHNIQUE: Multiaxial CT images of the abdomen and pelvis were performed following the use of intravenous contrast. A dose lowering technique was utilized adhering to the principles of ALARA. COMPARISON STUDY: Abdomen and pelvis CT 03/30/2022. FINDINGS: Mild dependent changes seen within the lung bases. No pneumoperitoneum. No pneumatosis. No acute fractures identified. Hepatic steatosis. Cholecystectomy. The main portal vein is patent. The pancreas and adrenal glands unremarkable. There are few punctate calcified granulomas within the spleen. The kidneys enhance normally. No hydronephrosis. Normal caliber abdominal aorta. No retroperitoneal or pelvic lymphadenopathy. No pelvic free fluid. There is mild pelvic floor collapse. Prior hysterectomy. The bladder is unremarkable. Colonic diverticulosis. No evidence for acute diverticulitis. No bowel wall thickening or obstruction. Prior Neel-en-Y gastric bypass. Prior appendectomy. IMPRESSION: 1. No bowel wall thickening or obstruction. 2. Colonic diverticulosis. No evidence for acute diverticulitis. 3. No hydronephrosis. 4. Hepatic steatosis. 5. Postoperative changes as described above. ACT 112: Negative or not required by law. Electronically signed by: Rob Wasserman M.D. 02/02/2023 4:23 PM
[2023-02-04] MEDS: HEPARIN SOD 5,000 UNIT/0.5 ML VIAL SQ SCH ×2 (13:46→22:14)
[2023-02-04] MEDS: DIVALPROEX EXTENDED RELEASE 250 MG TABCR PO SCH (20:23)
[2023-02-05] MEDS: ACETAMINOPHEN 1,000 MG/100 ML VIAL IV PRN (02:33)
[2023-02-05] MEDS: ONDANSETRON INJ 2 MG/ML 2 ML VIAL IV PRN ×3 (02:33→11:39)
[2023-02-05] MEDS: HEPARIN SOD 5,000 UNIT/0.5 ML VIAL SQ SCH (06:18)
[2023-02-05] MEDS: HYDROmorphone INJ 0.5 MG/0.5 ML SYR IV PRN (06:18)
[2023-02-05] MEDS: LEVOTHYROXINE SODIUM 25 MCG TABLET PO SCH (06:18)
[2023-02-05 06:52] LABS: Basophils # (auto) 0.02 K/uL (0-0.2); Basophils % (auto) 0.3 %; Eosinophils # (auto) 0.21 K/uL (0-0.50); Eosinophils % (auto) 3.1 %; Hematocrit (blood only) 31.4 % (37.0-47.0); Hemoglobin 10.2 g/dl (12.0-16.0); Immature Granulocytes # (auto) 0.02 K/uL (0.01-0.20); Immature Granulocytes % (auto) 0.3 %; Lymphocytes # (auto) 2.39 K/uL (1.2-3.4); Lymphocytes % (auto) 34.9 %; Mean Corpuscular Hemoglobin 27.1 pg (25.0-34.0); Mean Corpuscular Hgb Conc 32.5 g/dL (32.0-36.0); Mean Corpuscular Volume 83.5 fL (80.0-100.0); Mean Platelet Volume 9.2 fL (9.4-12.4); Monocytes # (auto) 0.51 K/uL (0.11-0.59); Monocytes % (auto) 7.4 %; Platelet Count 315 K/uL (130-400); RDW Coefficient of Variation 14.9 % (11.5-14.5); RDW Standard Deviation 45.1 fL (36.4-46.3); Red Blood Count 3.76 M/uL (4.20-5.40); White Blood Count 6.85 K/ul (4.8-10.8)
[2023-02-05 07:09] LABS: Albumin Globulin Ratio 1.4 (0.9-2); Albumin Level 3.2 gm/dl (3.4-5.0); BUN Creatinine Ratio 12.1 (10-20); Bilirubin,Total 0.2 mg/dl (0.2-1.0); Calcium 8.2 mg/dl (8.6-10.3); Creatinine Clr Calc Pharmacy 73.4 ml/min; Est GFR (African American) 72.3 ml/min; Est GFR (Non-African American) 62.4 ml/min; Globulin 2.3 gm/dl (2.5-4.0); Potassium 4.2 mmol/L (3.5-5.1); Total Protein 5.5 gm/dl (6.0-8.3)
[2023-02-05] MEDS: PROMETHAZINE HCL 12.5 MG in SODIUM CHLORIDE 0.9% 50 ML IV PRN (07:59)
[2023-02-05] MEDS: PANTOprazole 40 MG in SYRINGE 0 ML IV SCH (08:09)
[2023-02-05] MEDS: DICYCLOMINE HCL 10 MG CAP PO SCH ×2 (08:09→13:26)
[2023-02-05] MEDS: BENZONATATE 100 MG CAPSULE PO SCH ×2 (08:10→13:26)
[2023-02-05] MEDS: MONTELUKAST SODIUM 10 MG TABLET PO SCH (08:10)
[2023-02-05] MEDS: PROPRANOLOL HCL 60 MG LA CAP PO SCH (08:10)
[2023-02-05] MEDS: MAGNESIUM OXIDE 400 MG TAB PO SCH (08:10)
[2023-02-05] MEDS: CHOLECALCIFEROL 1,000 UNITS 25 MCG TAB PO SCH (08:10)
[2023-02-05] MEDS: DULoxetine HCL 30 MG CAP PO SCH (08:11)
[2023-02-05] MEDS: UMECLIDINIUM BROMIDE 62.5MCG/BLISTER 7 PUFFS/INHALER INH SCH (08:11)
[2023-02-05] MEDS: FLUTICASONE/VILANTEROL 200/25MCG 14 PUFFS/INHALER INH SCH (08:11)
[2023-02-05] MEDS ORDERED: ACETAMINOPHEN 325 MG TAB PO ONE (09:27)
--- NOTE | 2023-02-05 10:07 | Gastroenterology Progress Note ---
Date of Service February 05, 2023 Assessment & Plan (1) Left sided abdominal pain: Plan: She is doing well. Would discharge her on dicyclomine 20 mg qid and have her follow up with her GI as an outpatient Admission and Anticipated Discharge Date Admission Date: February 02, 2023 Subjective Feeling better. Happy that she will likely go home later today. Feels the increase to 20 mg dicyclomine helped. Still has some issues though. No vomiting. No bleeding Physical Exam Physical Exam: She looks well Results & Data Vital Signs (Past 12 Hours) Vital Signs Temp Pulse Pulse Resp BP Pulse Ox O2 Del Method 02/05/23 08:00 Room Air 02/05/23 08:31 36.7 C 68 20 107/67 91 Room Air 02/05/23 07:00 64 02/05/23 04:12 36.6 C 66 18 128/77 95 Room Air 02/04/23 23:36 37.0 C 62 18 103/69 92 Room Air 02/04/23 23:01 67 02/04/23 23:01 Room Air
--- NOTE | 2023-02-05 14:44 | Discharge Summary ---
Date of Service February 05, 2023 Admission HPI Per Admitting Provider This is a 57 yo F with PMHx of history of DM II, hypothyroidism, migraine, IgA, psoriatic arthropathy, DVT/PE, GERD, depression, iron deficiency anemia, history of Neel-en-Y gastric bypass, appendectomy, cholecystectomy who presents to the hospital with acute onset abdominal pain with lower abdominal pelvic area cramping, patient reports having a bowel movement on 02/01 which was dark in color, he reports having blood on the paper, had an episode of vomiting which looked dark in color. She has not vomited or had a bowel movement since being here in the hospital. Pt has been hemodynamically stable since being here. Pt reports having a gastric ulcer previously and that she had similar episodes at that time. Pt reports having had abdominal pain in [place] which started on Sunday, where she was driving an pulled over because it was so bad. Pt notes it improved slightly on Sunday because she mostly stayed in bed all day, and then on Sunday pt had pain which occurred in the LUQ, and had a bowel movement which was dark in color - moreso than normal even while being on iron tablet daily, and with some bright red blood on the toilet paper. No blood in the toilet bowel. Her BM was loose and reports this was similar yesterday. Pain was not relieved with passing bowel movement. Pt notes then today she had nausea and vomiting with chocolate colored emesis. Over the week she has minimally tolerated food due to nauseous throughout the week - diet consisted of toast, applesauce, yogurt and was able to drink fluids. She complains of some lightheadedness today with standing from a seated position, denies falls. Overall her pain progressively worsened throughout the week, slightly improved with pain meds in the ER. Admits to chills yesterday, no fever documented. She has tolerated her medications and took them this morning. Admission Exam Per Admitting Provider General: awake, alert, no apparent distress, Obese with BMI of 38.1 Head: Normocephalic, atraumatic ENT: PERRL, EOMI, no pharyngeal exudate, mucous membranes dry Chest: Clear to auscultation, on room air, no adventitious breath sounds Cardiac: Regular rate and rhythm, no murmur, no JVD, normal peripheral pulses, good capillary refill Abdominal: NABS x 4 quadrants, soft, nondistended, +tender to palpation throughout, no rebound tenderness or guarding Extremities: Normal inspection, + varicose veins, no peripheral edema or erythema, calfs nontender to palpation Psych: Normal mood and affect Neuro: AAO x 3, strength intact bilaterally and rated 5/5, no motor deficits, speech is clear, no peripheral sensory deficits Principal Diagnosis (1) Melena: (2) History of gastric bypass: (3) History of gastric ulcer: (4) GERD (gastroesophageal reflux disease): Discharge Exam General: awake, alert, no apparent distress, Obese with BMI of 38.1 Head: Normocephalic, atraumatic ENT: PERRL, EOMI, no pharyngeal exudate, mucous membranes dry Chest: Clear to auscultation, on room air, no adventitious breath sounds Cardiac: Regular rate and rhythm, no murmur, no JVD, normal peripheral pulses, good capillary refill Abdominal: NABS x 4 quadrants, soft, nondistended, mild tenderness present in lower abdomen. Extremities: Normal inspection, + varicose veins, no peripheral edema or erythema, calfs nontender to palpation Psych: Normal mood and affect Neuro: AAO x 3, strength intact bilaterally and rated 5/5, no motor deficits, speech is clear, no peripheral sensory deficits Discharge Data Allergies Allergy/AdvReac Type Severity Reaction Status Date / Time ketorolac Allergy Intermediate Itching Verified 02/02/23 15:45 oxycodone Allergy Intermediate Hives Verified 02/02/23 15:45 piperacillin Allergy Intermediate Pruritus Verified 02/02/23 15:45 tazobactam Allergy Intermediate Pruritus Verified 02/02/23 15:45 vancomycin AdvReac Severe deathly ill Verified 02/02/23 15:45 Consultations 02/02/23 17:17 ED Decision to Admit Stat 02/02/23 17:30 Consult Gastroenterology Routine Ordered Studies 02/02/23 14:29 CT Abd and Pelvis [CT abd pelvis IV con only] Stat Hospital Course (1) Melena: (2) History of gastric bypass: (3) History of gastric ulcer: (4) GERD (gastroesophageal reflux disease): (5) Migraine: (6) Panic attack: (7) Hypothyroidism: (8) DM II (diabetes mellitus, type II), controlled: Presented to the hospital with lower abdominal pain; cramping in nature. Reported to have dark bowel movement and dark vomiting. CT abdomen pelvis on admission reviewed; No bowel wall thickening or obstruction. Colonic diverticulosis. No evidence for acute diverticulitis. No hydronephrosis. Hepatic steatosis Labs reviewed; no leukocytosis During the hospitalization hemoglobin stable at 10-11. GI evaluated the patient. Recommended Bentyl scheduled 10 mg 4 times daily for abdominal cramping which was increased to 20 mg 4 times daily at discharge. Patient was discharged home with instruction to follow-up with her primary care doctor. No other medications changes were done at discharge Please note the above document was generated using voice recognition software. It may contain grammatical, syntax or spelling errors. Any formal questions or concerns about the content, text or information contained within the body of this dictation should be directly addressed to the provider for clarification Total Time Total Time Spent Total Time Spent (In Minutes): 40 Total Time Includes: Examination of the Patient, Discharge Planning, Medication Reconciliation, Communication With Other Providers and Other Discharge Plan Discharge Items Patient Disposition: Home - Self-Care Reason For Visit: GI BLEED Discharge Diagnosis: Gastroenteritis Activity: Resume your previous activity Non-emergency contact: Primary Care Provider Call non-emergency contact if: you have any medication questions Follow-up/Referrals: Krystyna John MD [Primary Care Provider] - (Dr John's office will call you with an appointment for hospital follow up.) Diet: Regular Addtl Attending Provider Instructions: You were admitted to the hospital with concern of dark stool. Your evaluated by GI; did not recommend any procedure. Please take Bentyl 20 mg every 6 hours for abdominal cramping. You are prescribed 5 tablets of [place]; use as needed for very severe pain. Follow-up with your primary care doctor Pending Studies at Discharge: No Stand-Alone Forms: My [facility], Smoking Cessation Medications and DC Order Prescriptions: New dicyclomine 10 mg Capsule 20 mg PO QID Qty: 30 0RF hydrocodone-acetaminophen 5-325 mg tablet 1 tab PO BID PRN (Reason: pain) Qty: 5 0RF Continued sumatriptan succinate [Imitrex] 50 mg Tablet 50 mg PO DIRECTED PRN (Reason: Migraine Headache) Rx Instructions: TAKE ONE TABLET AT ONSET OF HEADACHE, MAY REPEAT DOSE AFTER 2 HOURS IF NEEDED. MAXIMUM OF 2 TABLETS/24 HOURS levothyroxine [Synthroid] 25 mcg Tablet 25 mcg PO DAILYBB Rx Instructions: TAKE THIS MEDICATION ONCE DAILY 30 MINUTES BEFORE BREAKFAST OR ANY OTHER MEDICATIONS pantoprazole [Protonix] 40 mg Tablet,Delayed Release (Dr/Ec) 40 mg PO BID ergocalciferol (vitamin D2) [Vitamin D2] 50,000 unit Capsule 50,000 units PO 2XWK Rx Instructions: TAKE THIS MEDICATION EVERY SUNDAY AND SUNDAY magnesium oxide 400 mg magnesium Tablet 400 mg PO QAM propranolol [Inderal LA] 60 mg Capsule,Extended Release 24 Hr 60 mg PO QAM cholecalciferol (vitamin D3) [Vitamin D3] 50 mcg (2,000 unit) Capsule 2,000 unit PO QAM duloxetine 30 mg Capsule,Delayed Release(Dr/Ec) 30 mg PO BID divalproex [Depakote ER] 250 mg Tablet Extended Release 24 Hr 750 mg PO HS albuterol sulfate 90 mcg/actuation HFA aerosol inhaler 2 puff INHALATION QID PRN (Reason: Shortness Of Breath Or Wheezing) promethazine 25 mg tablet 25 mg PO TID PRN (Reason: Nausea And Vomiting) dicyclomine 10 mg capsule 10 mg PO QAM acetaminophen 325 mg Tablet 650 mg PO Q6 PRN (Reason: pain) Qty: 50 0RF ferrous sulfate 325 mg (65 mg iron) Tablet 325 mg PO QAM trazodone 150 mg tablet 300 mg PO HS montelukast 10 mg tablet 10 mg PO QAM Spiriva Respimat 1.25 mcg/actuation mist 2 inh INHALATION QPM fluticasone propion-salmeterol [Advair Diskus] 250-50 mcg/dose Blister With Device 1 inh INHALATION BID albuterol sulfate 2.5 mg /3 mL (0.083 %) Solution For Nebulization 2.5 mg INHALATION DIRECTED PRN (Reason: Shortness Of Breath Or Wheezing) Discharge Orders: Discharge Order (Routine); Ordered 02/05/23 Ordered By: Jh Zelaya/Other Patient Handouts: Type 2 Diabetes Admission Data Admit Date/Time: 02/02/23 17:30 Attending Provider: Jh Gonzalez Admit Provider: Vanesa Peña Primary Care Provider: Krystyna John Other Providers: Vanesa Peña ; Yenny Camargo Jr Other Interventions: Discharge Summary Assessment (RN) Last Done: 02/05/23 12:46
== END 2023-02-05 13:40 | disposition home or self-care (01) | DRG 379 ==
LOC: ED 13:50 → SUATTDRO 17:30 → 2N 17:30

== ENCOUNTER 2023-12-06 05:51 | Inpatient (IN) ==
[2023-12-06] MEDS: SODIUM CHLORIDE 0.9% 1,000 ML IV SCH ×2 (06:36→12:56)
[2023-12-06] MEDS: ONDANSETRON INJ 2 MG/ML 2 ML VIAL IV STA ×2 (06:38→07:33)
[2023-12-06] MEDS: MoRPHine SULFATE 2 MG/ML CARP IV STA (06:40)
[2023-12-06] MEDS: ACETAMINOPHEN 1,000 MG/100 ML VIAL IV STA (06:42)
--- NOTE | 2023-12-06 06:49 | Emergency Department Note ---
Impression & Plan Hypoxia, Body aches, Leukocytosis, Fever ED Provider Note NAME: VENTURA BRITTON AGE: 58 SEX: F : 1965 ARRIVES VIA: Ambulance INFORMANT: [Patient] ED PROVIDER(S): [Zander Naranjo MD] CHIEF COMPLAINT: Generalized pain HISTORY OF PRESENT ILLNESS: The patient is a 58-year-old female who states that she was seen yesterday for some left shoulder pain. She had fallen 6 days ago but the pain really did not seem to bother her until yesterday. She was told that there were no fractures and was reassured. She states that since being discharged home yesterday, she has had increasing discomfort to the point where now her entire body is painful. She has a headache, her neck is sore, her back is sore, her joints and body are sore, her chest is sore. She began running a temperature, the highest temperature recorded was 101.8. She has had nausea, no vomiting. No cough or cold or stuffy nose. No urinary complaints. No recent sick contacts. She last took Tylenol yesterday evening. PMHx/PSHx/Social Hx: See Below PHYSICAL EXAM: GENERAL: Patient is in no acute distress. HEENT: No acute trauma, normocephalic atraumatic, mucous membranes dry, no nasal congestion. NECK: No stridor, no adenopathy, no meningismus, trachea is midline. LUNGS: Clear to auscultation bilaterally, no wheeze, no rhonchi, breath sounds equal. HEART: Subtle systolic murmur, regular rate and rhythm. ABDOMEN: Soft, nontender, no peritonitis. EXTREMITIES: No cyanosis, full range of motion of all the joints without pain or difficulty. NEUROLOGIC: Oriented x 3, no acute motor or sensory deficits, no focal weakness. No speech slur, excellent historian. SKIN: No jaundice, no diaphoresis. DIFFERENTIAL DIAGNOSIS: Viral illness, UTI, rhabdomyolysis, dehydration, electrolyte imbalance, pneumonia, among others. EMERGENCY DEPARTMENT PROCEDURES: MEDICAL DECISION MAKING: There is a mild leukocytosis this of course could be consistent with infection. There is a normal hemoglobin and platelet count. Sodium slightly low at 132. No renal failure. Lactic acid level was not not elevated making severe sepsis less likely. Some liver enzyme elevations were noted, the bilirubin however was normal. Total CK was not elevated making rhabdomyolysis unlikely. ECG showed a normal sinus rhythm, no ischemia. Cardiac enzyme testing x 1 was not consistent with acute cardiac injury. Urinalysis did not show findings of infection. Respiratory bio fire was negative. Babesia and anaplasmosis smears were negative. Lyme disease testing did return negative. Chest x-ray showed a potential left base infiltrate versus some atelectasis. On exam, the patient did become hypoxic while here in the ED, she required O2 supplementation. The patient received IV saline, 1 L. She was given IV ceftriaxone as antibiotic coverage. She received IV Zofran for nausea, a second dose of IV Zofran was given. She was given IV morphine for pain. She received IV Tylenol for pain. Patient presents with bodyaches and flulike symptoms. She had noted a fever at home. She has a white count elevation and a potential left base pneumonia. She became hypoxic while here in the ED. Given her findings, I do think a hospital stay is warranted. I spoke with the patient and case management, the on-call hospitalist was consulted. Prior/Outside records/notes reviewed: Today's EMS notes describing her presentation and transport to this hospital. ECG per my interpretation: Indication was weakness. The ECG shows a normal sinus rhythm with a rate of 99. LVH is present. 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 There is potential old inferior infarct. There is no acute ST elevation, no PVCs. The QTc is 420. Compared to an ECG from 06 December 2023, I see no significant change. Continuous Cardiac Monitoring per my interpretation: An order was placed for continuous cardiac monitoring. The monitor shows a rate of 96 with normal sinus rhythm. Imaging/x-ray results per my interpretation: Chest x-ray shows a potential infiltrate at the left base. There was no pneumothorax. Chronic Medical/Social conditions affecting care: Care/Management discussed with: Case management, the on-call hospitalist. Level of care consideration(s): After review of the information above and other included data: --I believe the patient requires escalation of care to admission DISPOSITION: Admission Past Med/Surg History Medical History DM II (diabetes mellitus, type II), controlled History of gastric ulcer Hypothyroidism Vertigo Clostridium difficile colitis Psoriatic arthritis History of DVT (deep vein thrombosis) History of pulmonary embolism "completed 6 months Coumadin therapy" On 06/27/16 17:03 Nuha Zarate wrote On 03/23/16 16:22 Dottie Eladia wrote "2000 per patient; s/p knee replacement" MINI (iron deficiency anemia) Sleep apnea Depression GERD (gastroesophageal reflux disease) Surgical History History of cholecystectomy History of appendectomy S/P hysterectomy History of carpal tunnel surgery H/O wisdom tooth extraction Status post total knee replacement Status post gastric bypass for obesity Status post cholecystectomy Status post appendectomy Family History Mother Rheumatoid arthritis Father Cancer blood cancer Denies family history of Hypertension Social History Smoking Status: Never smoker Second Hand Exposure: No; Do You Dip or Chew Tobacco: No; Hx Alcohol Use: No Hx Substance Use: No Preferred Language: Persian Communication Ability: Effective Adult Psychiatrist Required: No Beliefs That Will Affect Care: None marital status: Current Living Situation: Spouse and Family Current Living Situation Comment: and Daughter Other Information That Helps Us Care for You: No Feels Safe at Home: Yes Safety Concerns: Feels Safe At This Time Assistive Devices: Glasses, Oxygen - Continuous and Walker Allergies Allergies Allergy/AdvReac Type Severity Reaction Status Date / Time ketorolac Allergy Intermediate Itching Verified 02/02/23 15:45 oxycodone Allergy Intermediate Hives Verified 02/02/23 15:45 piperacillin Allergy Intermediate Pruritus Verified 02/02/23 15:45 tazobactam Allergy Intermediate Pruritus Verified 02/02/23 15:45 vancomycin AdvReac Severe deathly ill Verified 02/02/23 15:45 Home Meds Home Medications Medication Instructions Recorded Confirmed ergocalciferol (vitamin D2) 1,250 50,000 units PO 2XWK 07/17/18 12/06/23 mcg (50,000 unit) capsule (Vitamin D2) levothyroxine 25 mcg tablet 25 mcg PO DAILYBB 07/17/18 12/06/23 (Synthroid) magnesium oxide 400 mg PO QAM 07/17/18 12/06/23 pantoprazole 40 mg tablet,delayed 40 mg PO BID 07/17/18 12/06/23 release (Protonix) sumatriptan succinate 50 mg tablet 50 mg PO DIRECTED PRN Migraine 07/17/18 12/06/23 (Imitrex) Headache divalproex 250 mg tablet,extended 750 mg PO HS 11/06/19 12/06/23 release 24 hr (Depakote ER) cholecalciferol (vitamin D3) 50 2,000 unit PO QAM 03/31/20 12/06/23 mcg (2,000 unit) capsule (Vitamin D3) propranolol 60 mg capsule,24 60 mg PO QAM 03/31/20 12/06/23 hr,extended release (Inderal LA) promethazine 25 mg tablet 25 mg PO TID PRN Nausea And 07/06/20 12/06/23 Vomiting trazodone 150 mg tablet 300 mg PO HS 01/02/21 12/06/23 ferrous sulfate 325 mg (65 mg 325 mg PO QAM 01/24/22 12/06/23 iron) tablet montelukast 10 mg tablet 10 mg PO QAM 02/02/23 12/06/23 buspirone 15 mg tablet 7.5 mg PO BID 12/06/23 12/06/23 calcium 325 mg-vit D3 12.5 1 tab PO DAILY 12/06/23 12/06/23 mcg-zinc 2.75 ya-hkijkn-esllsudpt tablet (Citracal-D3 Maximum Plus) dicyclomine 10 mg capsule 10 mg PO DAILY 12/06/23 12/06/23 duloxetine 60 mg capsule,delayed 60 mg PO DAILY 12/06/23 12/06/23 release fremanezumab-vfrm 225 mg/1.5 mL 225 mg subcut MONTHLY 12/06/23 12/06/23 subcutaneous syringe (Ajovy Syringe) multivitamin 1 tab PO DAILY 12/06/23 12/06/23 semaglutide 0.25 mg or 0.5 mg (2 0.25 mg subcut WK 12/06/23 12/06/23 mg/3 mL) subcutaneous pen injector (Ozempic) Results & Data (ED) Vital Signs Vital Signs - 24 hr 12/06/23 05:50 12/06/23 05:50 12/06/23 06:00 Temperature 36.8 C Temperature Source Oral Pulse Rate 93 H 96 H Pulse Rate [Apical] 93 H Pulse Rhythm [Apical] Regular Pulse Strength [Apical] Respiratory Rate 24 24 Respiratory Effort / Characteristics Non-Labored Respiratory Depth Normal Normal Respiratory Pattern Blood Pressure 127/101 H Blood Pressure [Right Arm] 127/101 H Blood Pressure Mean 109 Blood Pressure Mean [Right Arm] 109 Blood Pressure Position [Right Arm] Pulse Oximetry 95 95 Oxygen Delivery Method Room Air Room Air Oxygen Flow Rate Sepsis Recent Fever Within 48 Hours Yes Sepsis New/Unexplained Change in Mental Status No Sepsis Action Taken by Nursing No Action Required Oxygen Flow Rate - Titration Pulse Oximetry Post Tiitration 12/06/23 06:44 12/06/23 06:53 12/06/23 07:19 Temperature Temperature Source Pulse Rate 96 H Pulse Rate [Apical] Pulse Rhythm [Apical] Pulse Strength [Apical] Respiratory Rate Respiratory Effort / Characteristics Respiratory Depth Respiratory Pattern Blood Pressure Blood Pressure [Right Arm] Blood Pressure Mean Blood Pressure Mean [Right Arm] Blood Pressure Position [Right Arm] Pulse Oximetry 94 83 L 89 L Oxygen Delivery Method Room Air Nasal Cannula Nasal Cannula Oxygen Flow Rate 0 2 Sepsis Recent Fever Within 48 Hours Sepsis New/Unexplained Change in Mental Status Sepsis Action Taken by Nursing Oxygen Flow Rate - Titration 2 4 Pulse Oximetry Post Tiitration 89 L 96 12/06/23 07:20 12/06/23 08:30 Temperature Temperature Source Pulse Rate Pulse Rate [Apical] 87 83 Pulse Rhythm [Apical] Regular Regular Pulse Strength [Apical] Normal Normal Respiratory Rate 20 20 Respiratory Effort / Characteristics Non-Labored Spontaneous Non-Labored Spontaneous Respiratory Depth Normal Normal Respiratory Pattern Regular Regular Blood Pressure Blood Pressure [Right Arm] 111/85 107/70 Blood Pressure Mean Blood Pressure Mean [Right Arm] 93 82 Blood Pressure Position [Right Arm] Sitting Lying Pulse Oximetry 96 94 Oxygen Delivery Method Nasal Cannula Nasal Cannula Oxygen Flow Rate 4 4 Sepsis Recent Fever Within 48 Hours Sepsis New/Unexplained Change in Mental Status Sepsis Action Taken by Nursing Oxygen Flow Rate - Titration Pulse Oximetry Post Tiitration Home Medications Current Medication List: was personally reviewed by me Laboratory Data Attestation: I reviewed the patient's lab results. 12/06/23 06:09 12/06/23 06:09 Lab Results 12/06/23 12/06/23 12/06/23 Range/Units 06:09 06:45 07:43 WBC 13.17 H (4.8-10.8) K/ul RBC 4.67 (4.20-5.40) M/uL Hgb 14.5 (12.0-16.0) g/dl Hct 42.2 (37.0-47.0) % MCV 90.4 (80.0-100.0) fL MCH 31.0 (25.0-34.0) pg MCHC 34.4 (32.0-36.0) g/dL RDW Std Deviation 43.3 (36.4-46.3) fL RDW Coeff of Halley 13.2 (11.5-14.5) % Plt Count 266 (130-400) K/uL MPV 9.7 (9.4-12.4) fL Immature Gran % (Auto) 0.6 % Neut % (Auto) 82.4 % Lymph % (Auto) 7.6 % [place] % (Auto) 9.2 % Eos % (Auto) 0.0 % Baso % (Auto) 0.2 % Neut # (Auto) 10.86 H (1.40-6.50) K/uL Lymph # (Auto) 1.00 L (1.20-3.40) K/uL [place] # (Auto) 1.21 H (0.11-0.59) K/uL Eos # (Auto) 0.00 (0.00-0.50) K/uL Baso # (Auto) 0.02 (0.00-0.20) K/uL Immature Gran # (Auto) 0.08 (0.01-0.20) K/uL Sodium 132 L (136-145) mmol/L Potassium 4.1 (3.5-5.1) mmol/L Chloride 98 (98-107) mmol/L Carbon Dioxide 25 (21-32) mmol/L Anion Gap 9 (3-11) BUN 13 (6-23) mg/dl Creatinine 0.86 (0.6-1.2) mg/dl Est Cr Clr Drug Dosing 77.2 ml/min Est GFR ( Amer) 85.1 ml/min Est GFR (Non-Af Amer) 73.4 ml/min BUN/Creatinine Ratio 15.1 (10-20) Glucose 155 H (70-99(Fasting)) mg/dl Lactate 0.9 (0.4-2.0) mmol/L Calcium 9.4 (8.6-10.3) mg/dl Magnesium 1.9 (1.7-2.4) mg/dl Total Bilirubin 0.9 (0.2-1.0) mg/dl AST 104 H (13-39) U/L ALT 102 H (7-52) U/L Alkaline Phosphatase 140 H (34-104) U/L Total Creatine Kinase 29 (26-192) U/L Troponin I High Sens 3.7 (0-14) pg/ml C-Reactive Protein 18.46 H (0-0.5) mg/dl Total Protein 7.5 (6.0-8.3) gm/dl Albumin 4.3 (3.4-5.0) gm/dl Globulin 3.2 (2.5-4.0) gm/dl Albumin/Globulin Ratio 1.3 (0.9-2) Procalcitonin 0.40 (0-0.5) ng/ml Adenovirus (PCR) Not Detected (NotDetected) Anaplasma Smear See Comment Babesia Smear See Comment B. pertussis DNA (PCR) Not Detected (NotDetected) B.parapertussis DNA PCR Not Detected (NotDetected) Lyme Disease Screen Negative (Negative) C. pneumoniae DNA (PCR) Not Detected (NotDetected) Coronavirus OC43 (PCR) Not Detected (NotDetected) Coronavirus HKU1 (PCR) Not Detected (NotDetected) Coronavirus 229E (PCR) Not Detected (NotDetected) SARS-CoV-2 (PCR) Not Detected (NotDetected) Coronavirus NL63 (PCR) Not Detected (NotDetected) Human Metapneumovir PCR Not Detected (NotDetected) Influenza Type A (PCR) Not Detected (NotDetected) Influenza Type B (PCR) Not Detected (NotDetected) M. pneumoniae (PCR) Not Detected (NotDetected) Parainfluenza 1 (PCR) Not Detected (NotDetected) Parainfluenza 2 (PCR) Not Detected (NotDetected) Parainfluenza 3 (PCR) Not Detected (NotDetected) Parainfluenza 4 (PCR) Not Detected (NotDetected) RSV (PCR) Not Detected (NotDetected) Entero/Rhino (PCR) Not Detected (NotDetected) Administered Medications Enoxaparin Sodium (Enoxaparin Inj 40 Mg/0.4 Ml Syr) 40 mg SQ Q24H [facility] Stop: 01/05/24 11:59 Last Admin: 12/06/23 13:35 Dose: 40 mg Documented By: CEF Sodium Chloride (Nss) 1,000 mls @ 80 mls/hr IV .[id number] [facility] Stop: 01/05/24 11:38 Last Admin: 12/06/23 12:56 Dose: 80 mls/hr Documented By: CEF Metronidazole (Flagyl) 500 mg in 100 mls @ 100 mls/hr IV Q8H [facility]; Protocol Stop: 12/16/23 11:59 Last Admin: 12/06/23 15:14 Dose: 100 mls/hr Documented By: CEF Discontinued Medications Sodium Chloride (Nss) 1,000 mls @ 999 mls/hr IV .[id number] [facility] Stop: 12/06/23 07:30 Last Infusion: 12/06/23 07:36 Dose: Infused Documented By: Admin: 12/06/23 06:36 Dose: 999 mls/hr Documented By: HB Acetaminophen (Ofirmev) 1,000 mg in 100 mls @ 400 mls/hr IV NOW STA Stop: 12/06/23 06:47 Last Infusion: 12/06/23 06:57 Dose: Infused Documented By: Admin: 12/06/23 06:42 Dose: 400 mls/hr Documented By: HB Ceftriaxone Sodium (Rocephin) 2,000 mg in 50 mls @ 100 mls/hr IV NOW STA Stop: 12/06/23 09:06 Last Infusion: 12/06/23 12:23 Dose: Infused Documented By: Admin: 12/06/23 09:53 Dose: 100 mls/hr Documented By: JOSE Acetaminophen (Ofirmev) 1,000 mg in 100 mls @ 400 mls/hr IV ONCE ONE Stop: 12/06/23 13:01 Last Infusion: 12/06/23 15:15 Dose: Infused Documented By: Admin: 12/06/23 14:56 Dose: 400 mls/hr Documented By: CEF Morphine Sulfate (Morphine Sulfate 2 Mg/Ml Carp) 2 mg IV NOW STA Stop: 12/06/23 06:34 Last Admin: 12/06/23 06:40 Dose: 2 mg Documented By: ROHIT Morphine Sulfate (Morphine Sulfate 4 Mg/Ml 1 Ml Carp\\Vial) 4 mg IV NOW STA Stop: 12/06/23 07:20 Last Admin: 12/06/23 07:33 Dose: 4 mg Documented By: RAISSAT Ondansetron HCl (Ondansetron Inj 2 Mg/Ml 2 Ml Vial) 4 mg IV NOW STA Stop: 12/06/23 06:34 Last Admin: 12/06/23 06:38 Dose: 4 mg Documented By: ROHIT Ondansetron HCl (Ondansetron Inj 2 Mg/Ml 2 Ml Vial) 4 mg IV NOW STA Stop: 12/06/23 07:20 Last Admin: 12/06/23 07:33 Dose: 4 mg Documented By: RAISSAT Tramadol HCl (Tramadol Hcl 50 Mg Tablet) 25 mg PO NOW STA Stop: 12/06/23 10:41 Last Admin: 12/06/23 12:23 Dose: Not Given Documented By: CEF Imaging Data Radiologist's Impression: Chest X-Ray 12/06/23 06:25 XR chest 1V portable CLINICAL HISTORY: Weakness. COMPARISON STUDY: Chest radiograph January 25, 2022. Chest CT March 30, 2022. FINDINGS: There is no consolidation to suggest pneumonia. Mild left basilar opacity favors atelectasis. There is no pneumothorax or pleural effusion. Cardiac size is stable. Mediastinal contours are normal. There is no evidence for pulmonary edema. IMPRESSION: 1. No acute cardiopulmonary findings. 2. Mild left basilar opacity which favors atelectasis. ACT 112: Negative or not required by law. Electronically signed by: Yang Hansen M.D. 12/06/2023 7:24 AM Discharge Plan Visit Data Chief Complaint: Pain (Generalized) Stated Complaint: FELL FRI, ALL OVER PAIN, HERE YESTERDAY ED Provider: Zander Naranjo Discharge Problem: Hypoxia, Body aches, Leukocytosis, Fever Patient Disposition: Admitted As Inpatient Condition: Fair Discharge Instructions Interventions: ED Discharge Assessment Last Done: 12/06/23 10:32 Discharge Problem: Leukocytosis Qualifiers: Leukocytosis type: unspecified Qualified Code(s): D72.829 - Elevated white blood cell count, unspecified Fever Qualifiers: Fever type: unspecified Qualified Code(s): R50.9 - Fever, unspecified
[2023-12-06 06:55] LABS: Basophils # (auto) 0.02 K/uL (0.00-0.20); Basophils % (auto) 0.2 %; Hematocrit (blood only) 42.2 % (37.0-47.0); Hemoglobin 14.5 g/dl (12.0-16.0); Immature Granulocytes # (auto) 0.08 K/uL (0.01-0.20); Immature Granulocytes % (auto) 0.6 %; Lymphocytes % (auto) 7.6 %; Mean Corpuscular Hgb Conc 34.4 g/dL (32.0-36.0); Mean Corpuscular Volume 90.4 fL (80.0-100.0); Mean Platelet Volume 9.7 fL (9.4-12.4); Monocytes # (auto) 1.21 K/uL (0.11-0.59); Monocytes % (auto) 9.2 %; Neutrophils # (auto) 10.86 K/uL (1.40-6.50); Neutrophils % (auto) 82.4 %; Platelet Count 266 K/uL (130-400); RDW Coefficient of Variation 13.2 % (11.5-14.5); RDW Standard Deviation 43.3 fL (36.4-46.3); Red Blood Count 4.67 M/uL (4.20-5.40); White Blood Count 13.17 K/ul (4.8-10.8)
[2023-12-06 07:16] LABS: Albumin Globulin Ratio 1.3 (0.9-2); Albumin Level 4.3 gm/dl (3.4-5.0); BUN Creatinine Ratio 15.1 (10-20); Bilirubin,Total 0.9 mg/dl (0.2-1.0); Calcium 9.4 mg/dl (8.6-10.3); Creatinine Clr Calc Pharmacy 77.2 ml/min; Est GFR (African American) 85.1 ml/min; Est GFR (Non-African American) 73.4 ml/min; Globulin 3.2 gm/dl (2.5-4.0); Magnesium 1.9 mg/dl (1.7-2.4); Potassium 4.1 mmol/L (3.5-5.1); Total Protein 7.5 gm/dl (6.0-8.3)
[2023-12-06 07:21] LABS: Troponin I High Sensitivity 3.7 pg/ml (0-14)
--- NOTE | 2023-12-06 07:25 | XRay Report ---
XR chest 1V portable CLINICAL HISTORY: Weakness. COMPARISON STUDY: Chest radiograph January 25, 2022. Chest CT March 30, 2022. FINDINGS: There is no consolidation to suggest pneumonia. Mild left basilar opacity favors atelectasi s. There is no pneumothorax or pleural effusion. Cardiac size is stable. Mediastinal contours are nor mal. There is no evidence for pulmonary edema. IMPRESSION: 1. No acute cardiopulmonary findings. 2. Mild left basilar opacity which favors atelectasis. ACT 112: Negative or not required by law. Electronically signed by: Yang Hansen M.D. 12/06/2023 7:24 AM
[2023-12-06] MEDS: MoRPHine SULFATE 4 MG/ML 1 ML CARP\\VIAL IV STA (07:33)
[2023-12-06 08:12] LABS: Adenovirus PCR Not Detected (NotDetected); Bordetella parapertussis PCR Not Detected (NotDetected); Bordetella pertussis PCR Not Detected (NotDetected); Chlamydia pneumoniae PCR Not Detected (NotDetected); Coronavirus 229E PCR Not Detected (NotDetected); Coronavirus CoV-2 (COVID19)PCR Not Detected (NotDetected); Coronavirus HKU1 PCR Not Detected (NotDetected); Coronavirus NL63 PCR Not Detected (NotDetected); Coronavirus OC43PCR Not Detected (NotDetected); Human Metapneumovirus PCR Not Detected (NotDetected); Influenza A PCR Not Detected (NotDetected); Influenza B PCR Not Detected (NotDetected); Mycoplasma pneumoniae PCR Not Detected (NotDetected); Parainfluenza Virus 1 PCR Not Detected (NotDetected); Parainfluenza Virus 2 PCR Not Detected (NotDetected); Parainfluenza Virus 3 PCR Not Detected (NotDetected); Parainfluenza Virus 4 PCR Not Detected (NotDetected); Respiratory Syncytial VirusPCR Not Detected (NotDetected); Rhinovirus/Enterovirus PCR Not Detected (NotDetected)
[2023-12-06] MEDS: cefTRIAXone SODIUM 2,000 MG/50 ML BAG IV STA (09:53)
[2023-12-06 10:11] LABS: C Reactive Protein 18.46 mg/dl (0-0.5)
--- NOTE | 2023-12-06 11:19 | Ultrasound Report ---
US liver CLINICAL HISTORY: Transaminitis. COMPARISON STUDY: Right upper quadrant ultrasound November 21, 2018. CT of the abdomen and pelvis January 092022. FINDINGS: There are no hepatic lesions. Liver morphology is normal. There is mild dilatation of the c ommon bile duct, measuring 9 mm. Allowing for differences in technique, this is similar to CT of February 02, 2023. This is likely related to cholecystectomy. No common bile duct calculi are identified by so nography. The pancreas is obscured by overlying bowel gas. There is no right hydronephrosis. IMPRESSION: 1. Mild dilatation of the common bile duct, likely related to cholecystectomy. This could be correlat ed with obstructive liver function tests. 2. Obscured pancreas. ACT 112: Negative or not required by law. Electronically signed by: Yang Hansen M.D. 12/06/2023 11:18 AM
[2023-12-06] MEDS ORDERED: DOXYCYCLINE HYCLATE 100 MG in DEXTROSE 5% MINI-B 100 ML IV SCH (11:39)
[2023-12-06] MEDS ORDERED: cefTRIAXone SODIUM 1,000 MG in DEXTROSE 5 % MINI-B 50 ML IV SCH (11:45)
[2023-12-06] MEDS ORDERED: GLUCAGON FOR INJ 1 MG VIAL SQ PRN (11:46)
[2023-12-06] MEDS ORDERED: GLUCOSE 10 TAB/TUBE PO PRN (11:46)
[2023-12-06] MEDS ORDERED: CARBOHYDRATES FOR HYPOGLYCEMIA PO PRN (11:46)
[2023-12-06] MEDS ORDERED: DEXTROSE 50% 50 ML SYRINGE IV PRN (11:46)
[2023-12-06] MEDS ORDERED: GLUCOSE 40% GEL 15 GM TUBE PO PRN (11:46)
[2023-12-06] MEDS: traMADol HCL 50 MG TABLET PO STA (12:23)
--- NOTE | 2023-12-06 12:30 | Electrocardiogram Report ---
Test Reason : Blood Pressure : / mmHG Vent. Rate : 099 BPM Atrial Rate : 099 BPM P-R Int : 148 ms QRS Dur : 072 ms QT Int : 328 ms P-R-T Axes : 019 -15 054 degrees QTc Int : 420 ms Normal sinus rhythm Minimal voltage criteria for LVH, may be normal variant ( R in aVL ) Inferior infarct (cited on or before 30-MAR-2022) Anterolateral infarct (cited on or before 30-MAR-2022) Abnormal ECG When compared with ECG of 02-FEB-2023 15:20, ST elevation now present in Anterior leads Confirmed by Trell Harper ([id number]) on 12/06/2023 12:30:18 PM Referred By: Confirmed By:Trell Harper
--- NOTE | 2023-12-06 12:35 | Gastrointestinal Consultation ---
Date of Consultation December 06, 2023 Assessment & Plan (1) Fever: (2) Leukocytosis: (3) Transaminitis: Most likely a viral illness causing transaminitis. Plan 1. Labs: Will check EBV, Parvovirus, HSV, CMV, Hep A/B/C and lipase. 2. MRCP 3. Agree w broad spectrum antibiotic use including gram (-) coverage and doxycycline for tic born illnesses. 4. No GI contraindication to a regular diet. 5. Will continue to follow. Supervising Physician Co-Signing Physician Notes Pt with abrupt onset of symptoms suggestive of viral illness - fever, malaise, myalgias. She is noted to have mild newly elevated LFTs with transaminases in the low 100's, with benign abd exam. Imaging with liver uls, MRCP unremarkable. She reports 2 gms of tylenol yesterday, no prior APAP use, APAP level undetectable. Elevated LFTs likely related to viral illness or APAP use. Will request serologic w/u. Will sign off. Would ask primary service to cont follow LFTs and recall us if persistently increased. History of Present Illness Reason for Consultation: Elevated LFTs Requesting Physician: Dr. Gonzalez/Nuha Zraate NP Attending Physician: Jh Gonzalez MD History of Present Illness Ms. Gldais Link is a 58 yr old female pt of Dr Krystyna John who is S/P distant RYGB, also w hx of DM2, migraines, hypothyroidism, psoriatic arthritis, OA, GERD, IBS who presented to the ED today for fever (101) and body aches. She had also fallen a week prior. On arrival, + transaminitis AST 104, ALT 102, T BIli (0.9) and Alk Phos (140) normal or not significantly elevated. Thus far, serology is negative for multiple viral and tick born illnesses including anaplasmosis, babesia, lyme COVID, RSH, Influenza and Adenovirus. She took 4 doses of tylenol yesterday. Tylenol level on arrival was normal. She has cold sores but states that she always has these - no more than usual. Denies any vaginal/genital lesions or pain. Allergies Allergy/AdvReac Type Severity Reaction Status Date / Time ketorolac Allergy Intermediate Itching Verified 02/02/23 15:45 oxycodone Allergy Intermediate Hives Verified 02/02/23 15:45 piperacillin Allergy Intermediate Pruritus Verified 02/02/23 15:45 tazobactam Allergy Intermediate Pruritus Verified 02/02/23 15:45 vancomycin AdvReac Severe deathly ill Verified 02/02/23 15:45 Home Medications Medication Instructions Recorded Confirmed Type ergocalciferol (vitamin D2) 1,250 50,000 units PO 2XWK 07/17/18 12/06/23 History mcg (50,000 unit) capsule (Vitamin D2) levothyroxine 25 mcg tablet 25 mcg PO DAILYBB 07/17/18 12/06/23 History (Synthroid) magnesium oxide 400 mg PO QAM 07/17/18 12/06/23 History pantoprazole 40 mg tablet,delayed 40 mg PO BID 07/17/18 12/06/23 History release (Protonix) sumatriptan succinate 50 mg tablet 50 mg PO DIRECTED PRN Migraine 07/17/18 12/06/23 History (Imitrex) Headache divalproex 250 mg tablet,extended 750 mg PO HS 11/06/19 12/06/23 History release 24 hr (Depakote ER) cholecalciferol (vitamin D3) 50 2,000 unit PO QAM 03/31/20 12/06/23 History mcg (2,000 unit) capsule (Vitamin D3) propranolol 60 mg capsule,24 60 mg PO QAM 03/31/20 12/06/23 History hr,extended release (Inderal LA) promethazine 25 mg tablet 25 mg PO TID PRN Nausea And 07/06/20 12/06/23 History Vomiting trazodone 150 mg tablet 300 mg PO HS 01/02/21 12/06/23 History ferrous sulfate 325 mg (65 mg 325 mg PO QAM 01/24/22 12/06/23 History iron) tablet montelukast 10 mg tablet 10 mg PO QAM 02/02/23 12/06/23 History buspirone 15 mg tablet 7.5 mg PO BID 12/06/23 12/06/23 History calcium 325 mg-vit D3 12.5 1 tab PO DAILY 12/06/23 12/06/23 History mcg-zinc 2.75 eb-[id number]-zgzozxtlz tablet (Citracal-D3 Maximum Plus) dicyclomine 10 mg capsule 10 mg PO DAILY 12/06/23 12/06/23 History duloxetine 60 mg capsule,delayed 60 mg PO DAILY 12/06/23 12/06/23 History release fremanezumab-vfrm 225 mg/1.5 mL 225 mg subcut MONTHLY 12/06/23 12/06/23 History subcutaneous syringe (Ajovy Syringe) multivitamin 1 tab PO DAILY 12/06/23 12/06/23 History semaglutide 0.25 mg or 0.5 mg (2 0.25 mg subcut WK 12/06/23 12/06/23 History mg/3 mL) subcutaneous pen injector (Ozempic) Patient History Medical History DM II (diabetes mellitus, type II), controlled History of gastric ulcer Hypothyroidism Vertigo Clostridium difficile colitis Psoriatic arthritis History of DVT (deep vein thrombosis) History of pulmonary embolism "completed 6 months Coumadin therapy" On 06/27/16 17:03 Nuha Zarate wrote On 03/23/16 16:22 Dottie Montilla wrote "2000 per patient; s/p knee replacement" MINI (iron deficiency anemia) Sleep apnea Depression GERD (gastroesophageal reflux disease) Surgical History History of cholecystectomy History of appendectomy S/P hysterectomy History of carpal tunnel surgery H/O wisdom tooth extraction Status post total knee replacement Status post gastric bypass for obesity Status post cholecystectomy Status post appendectomy Family History Mother Rheumatoid arthritis Father Cancer blood cancer Denies family history of Hypertension Social History Smoking Status: Never smoker Second Hand Exposure: No; Do You Dip or Chew Tobacco: No; Hx Alcohol Use: No Hx Substance Use: No Preferred Language: Yakut Communication Ability: Effective Engineering Drawings Checker Required: No Beliefs That Will Affect Care: None marital status: Current Living Situation: Spouse and Family Current Living Situation Comment: and Daughter Other Information That Helps Us Care for You: No Feels Safe at Home: Yes Safety Concerns: Feels Safe At This Time Assistive Devices: Glasses, Oxygen - Continuous and Walker Review of Systems 2 Review of Systems: ROS: Gen: + fevers +entire body aches Eyes: No eye redness, or pain, no recent vision changes Resp: + mild sinus congestion a few days ago, resolved now. No SOB, no cough Cardio: No palpitations/irregular beats, no chest pain GI: No abdominal pain, no nausea/vomiting : Denies pain on urination Skin: No jaundice, itching or new rashes M/S : no joint redness or swelling but feels like all joints are painful and stiff Physical Exam 2 Constitutional: + ill appearing, cooperative and + overw eight very uncomfortable Eyes: sl scleral injection ENMT: pharynx w mild redness Neck: trachea midline, no thyromegaly Respiratory: normal respiratory effort, lungs clear to auscultation Cardiovascular: RRR, no murmur, no edema Gastrointestinal (Abdomen): normal bowel sounds, soft, nontender, no hepatosplenomegaly Musculoskeletal: able to tuck chin to chest; no able to move all ext and lift her back off the mattress, but with great effort Skin: flushed; + scabs around mouth consistent with healing HSV lesions. No rashes or other lesions. Neurologic: PERRL, EOMI, accommodation nl, no face palsy, no dysarthria Psychiatric: A+Ox3, euthymic affect Insight: good insight Judgment: good judgement Lymphatic: no cervical or axillary lymphadenopathy Results & Data Vital Signs (Past 12 Hours) Vital Signs Temp Pulse Pulse Resp BP BP Pulse Ox 12/06/23 10:32 83 18 94 12/06/23 10:15 78 18 113/67 94 12/06/23 09:54 79 18 99/58 L 95 12/06/23 08:30 83 20 107/70 94 12/06/23 07:20 87 20 111/85 96 12/06/23 07:19 89 L 12/06/23 06:53 83 L 12/06/23 06:44 96 H 94 12/06/23 06:00 96 H 12/06/23 05:50 93 H 24 127/101 H 95 12/06/23 05:50 36.8 C 93 H 24 127/101 H 95 O2 Del Method O2 Flow Rate 12/06/23 10:32 Nasal Cannula 2 12/06/23 10:15 Nasal Cannula 3 12/06/23 09:54 Nasal Cannula 4 12/06/23 08:30 Nasal Cannula 4 12/06/23 07:20 Nasal Cannula 4 12/06/23 07:19 Nasal Cannula 2 12/06/23 06:53 Nasal Cannula 0 12/06/23 06:44 Room Air 12/06/23 06:00 12/06/23 05:50 Room Air 12/06/23 05:50 Room Air Laboratory Results T Bili0.9, AST 104, ALT 102, ALk PHoa 140 12/06/23 06:09 12/06/23 06:09 Diagnostic Findings Liver ultrasound on 12/06/23: 1. Mild dilatation of the common bile duct, likely related to cholecystectomy. This could be correlated with obstructive liver function tests. 2. Obscured pancreas. (1) Fever Fever type: unspecified Qualified Code(s): R50.9 - Fever, unspecified (2) Leukocytosis Leukocytosis type: unspecified Qualified Code(s): D72.829 - Elevated white blood cell count, unspecified
[2023-12-06] MEDS ORDERED: traMADol HCL 50 MG TABLET PO PRN (12:36)
--- NOTE | 2023-12-06 13:13 | History & Physical Report ---
Date of Service December 06, 2023 Assessment & Plan (1) Febrile illness: Plan: Admit to med/surg Patient presenting from home with reports of fever, generalized body aches, and weakness. Etiology not clear thus far WBC 13 K, CRP 18, procalcitonin 0.40 Given elevated LFTs, ? viral illness - noted negative RVP, Lyme, anaplasma, babesiosis -confirmatory Anaplasma and babesiosis pending CXR shows left basilar opacity - ?? Pneumonia UA pending Follow blood cultures S/p ceftriaxone in the ED, will continue with ceftriaxone, doxycycline, Flagyl If infectious workup unrevealing, consider course of steroids for possible psoriatic arthritis flare. Recently completed prednisone taper for flare a couple of weeks ago. (2) Transaminitis: Plan: T. bili 0.9, AST 104, ALT 102, alk phos 140 RUQ US shows mild CBD dilation, possibly related to history of cholecystectomy MRCP GI consult, case discussed with LISA Chris via [facility] (3) Hypoxia: Plan: Mildly hypoxic on room air after administration of IV morphine Possible pneumonia on CXR History of pulmonary embolism, no longer anticoagulated. Checking CTA chest (4) DM II (diabetes mellitus, type II), controlled: Plan: Hgb A1c 6.1 09/2023 Currently managed on Ozempic NovoLog per protocol while hospitalized (5) Psoriatic arthritis: Plan: Recently treated for flare with prednisone taper If infectious workup unrevealing as above, consider additional steroid course for possible flare given diffuse body aches (6) GERD (gastroesophageal reflux disease): Plan: Chronic, stable continue PPI (7) Depression: Plan: Chronic, stable Continue home meds (8) Hypothyroidism: Plan: Chronic, stable Continue levothyroxine DVT PROPHYLAXIS SQ Lovenox Patient seen in collaboration with Dr. Gonzalez. I spent a total of 75 minutes coordinating, documenting, and providing care for this patient excluding time spent in the performance of separately billed services. This included personally reviewing all current laboratories and imaging studies, medication reconciliation, outpatient chart review, and discussion with specialists. Admission and Anticipated Discharge Date Admission Date: December 06, 2023 History of Present Illness Chief Complaint: Fever, body aches Primary Care Provider: Krystyna John MD 58-year-old female with PMH DM type II, hypothyroidism, GERD, history of gastric bypass surgery, psoriatic arthritis, history of migraines, MINI, depression, history of pulmonary embolism (s/p Coumadin therapy), history of C. difficile, and other problems listed below who presents to the ED for evaluation of fever and bodyaches. History is obtained from the patient and review of outpatient PCP records. Patient reports she suffered a mechanical fall about 1 week ago, injuring her left shoulder. She was seen in the ED yesterday for left shoulder pain. Had an x-ray that was unremarkable and she was discharged home. Patient reports that when she returned home, she developed body aches and chills. She had a fever of 101.8. Reports diffuse body aches and generalized weakness. She then presented back to the ED for further evaluation. Patient denies chest pain and shortness of breath. No cough or sputum production. Report nause and episodes of dry heaves, no vomiting or abdominal pain. Denies urinary symptoms. In the ED, patient is afebrile, WBC 13 K. Became mildly hypoxic after receiving IV morphine. Currently saturating well on 2 L of oxygen via nasal cannula. Labs also show transaminitis with AST 104, ALT 102, alk phos 140. CRP 18.4. Lyme testing negative, Anaplasma and Babesia smears negative. CXR shows left basilar opacities suggestive of atelectasis. Patient was given IV Tylenol, IV ceftriaxone, IV morphine, IV Zofran, IVF. Allergies Allergy/AdvReac Type Severity Reaction Status Date / Time ketorolac Allergy Intermediate Itching Verified 02/02/23 15:45 oxycodone Allergy Intermediate Hives Verified 02/02/23 15:45 piperacillin Allergy Intermediate Pruritus Verified 02/02/23 15:45 tazobactam Allergy Intermediate Pruritus Verified 02/02/23 15:45 vancomycin AdvReac Severe deathly ill Verified 02/02/23 15:45 Home Medications Medication Instructions Recorded Confirmed Type ergocalciferol (vitamin D2) 1,250 50,000 units PO 2XWK 07/17/18 12/06/23 History mcg (50,000 unit) capsule (Vitamin D2) levothyroxine 25 mcg tablet 25 mcg PO DAILYBB 07/17/18 12/06/23 History (Synthroid) magnesium oxide 400 mg PO QAM 07/17/18 12/06/23 History pantoprazole 40 mg tablet,delayed 40 mg PO BID 07/17/18 12/06/23 History release (Protonix) sumatriptan succinate 50 mg tablet 50 mg PO DIRECTED PRN Migraine 07/17/18 12/06/23 History (Imitrex) Headache divalproex 250 mg tablet,extended 750 mg PO HS 11/06/19 12/06/23 History release 24 hr (Depakote ER) cholecalciferol (vitamin D3) 50 2,000 unit PO QAM 03/31/20 12/06/23 History mcg (2,000 unit) capsule (Vitamin D3) propranolol 60 mg capsule,24 60 mg PO QAM 03/31/20 12/06/23 History hr,extended release (Inderal LA) promethazine 25 mg tablet 25 mg PO TID PRN Nausea And 07/06/20 12/06/23 History Vomiting trazodone 150 mg tablet 300 mg PO HS 01/02/21 12/06/23 History ferrous sulfate 325 mg (65 mg 325 mg PO QAM 01/24/22 12/06/23 History iron) tablet montelukast 10 mg tablet 10 mg PO QAM 02/02/23 12/06/23 History buspirone 15 mg tablet 7.5 mg PO BID 12/06/23 12/06/23 History calcium 325 mg-vit D3 12.5 1 tab PO DAILY 12/06/23 12/06/23 History mcg-zinc 2.75 ks-aixpyf-entczklwl tablet (Citracal-D3 Maximum Plus) dicyclomine 10 mg capsule 10 mg PO DAILY 12/06/23 12/06/23 History duloxetine 60 mg capsule,delayed 60 mg PO DAILY 12/06/23 12/06/23 History release fremanezumab-vfrm 225 mg/1.5 mL 225 mg subcut MONTHLY 12/06/23 12/06/23 History subcutaneous syringe (Ajovy Syringe) multivitamin 1 tab PO DAILY 12/06/23 12/06/23 History semaglutide 0.25 mg or 0.5 mg (2 0.25 mg subcut WK 12/06/23 12/06/23 History mg/3 mL) subcutaneous pen injector (Ozempic) Past Med/Surg History Medical History DM II (diabetes mellitus, type II), controlled History of gastric ulcer Hypothyroidism Vertigo Clostridium difficile colitis Psoriatic arthritis History of DVT (deep vein thrombosis) History of pulmonary embolism "completed 6 months Coumadin therapy" On 06/27/16 17:03 Nuha Zarate wrote On 03/23/16 16:22 Dottie Llanosmarnie wrote "2000 per patient; s/p knee replacement" MINI (iron deficiency anemia) Sleep apnea Depression GERD (gastroesophageal reflux disease) Surgical History History of cholecystectomy History of appendectomy S/P hysterectomy History of carpal tunnel surgery H/O wisdom tooth extraction Status post total knee replacement Status post gastric bypass for obesity Status post cholecystectomy Status post appendectomy Family History Mother Rheumatoid arthritis Father Cancer blood cancer Denies family history of Hypertension Social History Smoking Status: Never smoker Second Hand Exposure: No; Do You Dip or Chew Tobacco: No; Hx Alcohol Use: No Hx Substance Use: No Preferred Language: Mexican Communication Ability: Effective Tobacco Roller Required: No Beliefs That Will Affect Care: None marital status: Current Living Situation: Spouse and Family Current Living Situation Comment: and Daughter Other Information That Helps Us Care for You: No Feels Safe at Home: Yes Safety Concerns: Feels Safe At This Time Assistive Devices: Glasses, Oxygen - Continuous and Walker Physical Exam Constitutional: WD/WN, vitals as above no acute distress Eyes: PERRL, conjunctivae normal, anicteric sclerae ENMT: external ear and nose normal, oropharynx normal Respiratory: normal respiratory effort; no respiratory distress Aus cultation: + diminished lung sounds (Bilaterally) Cardiovascular: Rate/Rhythm: regular rate and regular rhythm Vessels: normal peripheral pulses Extremities: no edema Gastrointestinal (Abdomen): normal bowel sounds, soft, nontender, no hepatosplenomegaly Musculoskeletal: no cyanosis or clubbing, extremities motor strength 5/5 Skin: no rashes, warm and dry Neurologic: PERRL, EOMI, accommodation nl, no face palsy, no dysarthria Psychiatric: A+Ox3, euthymic affect Results & Data Results & Data Vital Signs (Past 12 Hours) Vital Signs Temp Pulse Pulse Resp BP BP Pulse Ox 12/06/23 10:32 83 18 94 12/06/23 10:15 78 18 113/67 94 12/06/23 09:54 79 18 99/58 L 95 12/06/23 08:30 83 20 107/70 94 12/06/23 07:20 87 20 111/85 96 12/06/23 07:19 89 L 12/06/23 06:53 83 L 12/06/23 06:44 96 H 94 12/06/23 06:00 96 H 12/06/23 05:50 93 H 24 127/101 H 95 12/06/23 05:50 36.8 C 93 H 24 127/101 H 95 O2 Del Method O2 Flow Rate 12/06/23 10:32 Nasal Cannula 2 12/06/23 10:15 Nasal Cannula 3 12/06/23 09:54 Nasal Cannula 4 12/06/23 08:30 Nasal Cannula 4 12/06/23 07:20 Nasal Cannula 4 12/06/23 07:19 Nasal Cannula 2 12/06/23 06:53 Nasal Cannula 0 12/06/23 06:44 Room Air 12/06/23 06:00 12/06/23 05:50 Room Air 12/06/23 05:50 Room Air Laboratory Results Short CBC 12/06/23 Range/Units 06:09 WBC 13.17 H (4.8-10.8) K/ul Hgb 14.5 (12.0-16.0) g/dl Hct 42.2 (37.0-47.0) % Plt Count 266 (130-400) K/uL BMP 12/06/23 06:09 Sodium 132 L Potassium 4.1 Chloride 98 Carbon Dioxide 25 BUN 13 Creatinine 0.86 Glucose 155 H Calcium 9.4 Cardiac Enzymes 12/06/23 Range/Units 06:09 Total Creatine Kinase 29 (26-192) U/L Liver Function 12/06/23 Range/Units 06:09 Total Bilirubin 0.9 (0.2-1.0) mg/dl AST 104 H (13-39) U/L ALT 102 H (7-52) U/L Alkaline Phosphatase 140 H (34-104) U/L Albumin 4.3 (3.4-5.0) gm/dl Diagnostic Findings Chest X-Ray 12/06/23 06:25 XR chest 1V portable CLINICAL HISTORY: Weakness. COMPARISON STUDY: Chest radiograph January 25, 2022. Chest CT March 30, 2022. FINDINGS: There is no consolidation to suggest pneumonia. Mild left basilar opacity favors atelectasis. There is no pneumothorax or pleural effusion. Cardiac size is stable. Mediastinal contours are normal. There is no evidence for pulmonary edema. IMPRESSION: 1. No acute cardiopulmonary findings. 2. Mild left basilar opacity which favors atelectasis. ACT 112: Negative or not required by law. Electronically signed by: Yang Hansen M.D. 12/06/2023 7:24 AM Liver Ultrasound 12/06/23 09:17 US liver CLINICAL HISTORY: Transaminitis. COMPARISON STUDY: Right upper quadrant ultrasound November 21, 2018. CT of the abdomen and pelvis February 02, 2023. FINDINGS: There are no hepatic lesions. Liver morphology is normal. There is mild dilatation of the common bile duct, measuring 9 mm. Allowing for differences in technique, this is similar to CT of February 02, 2023. This is likely related to cholecystectomy. No common bile duct calculi are identified by sonography. The pancreas is obscured by overlying bowel gas. There is no right hydronephrosis. IMPRESSION: 1. Mild dilatation of the common bile duct, likely related to cholecystectomy. This could be correlated with obstructive liver function tests. 2. Obscured pancreas. ACT 112: Negative or not required by law. Electronically signed by: Yang Hansen M.D. 12/06/2023 11:18 AM Code Status & VTE Plan VTE Prophylaxis Plan VTE Prophylaxis will be ordered: Yes Supervising Physician Co-Signing Physician Notes Patient seen and examined independently. Discussed with above provider. Patient presents with fever, chills and muscle aches. She denies cough, sore throat, chest pain, abdominal pain. She reports diffuse body aches. Chest x-ray personally reviewed; infiltrate present along left lung. Respiratory viral panel negative LFTs mildly elevated; history of cholecystectomy in the past. Right upper quadrant ultrasound showed dilated CBD; GI recommends MRCP. On ceftriaxone and Flagyl given CBD dilation. Doxycycline for atypical pneumonia Workup for tickborne illness, blood culture, MRCP, CTA chest I have reviewed the advanced practitioner's documentation, and I agree with, and take responsibility for the plan of care I spent a total of 20 minutes coordinating, documenting, and providing care for this patient excluding time spent in the performance of separately billed services. All of the aforementioned completed while collaborating with the assigned advanced practitioner for a full treatment plan
[2023-12-06 13:23] LABS: Appearance Urine Clear (Clear); Bilirubin Urine Negative (Negative); Blood Urine Negative (Negative); Color Urine Yellow; Glucose Urine UA Trace (Negative); Ketones Urine Trace (Negative); Leukocyte Esterase Urine Negative (Negative); Nitrite Urine Negative (Negative); Protein Urine Negative (Negative); Specific Gravity Urine 1.013 (1.000-1.030); Urobilinogen Urine Negative (Negative); pH Urine 6.5 (4.5-7.5)
[2023-12-06] MEDS: ENOXAPARIN INJ 40 MG/0.4 ML SYR SQ SCH (13:35)
[2023-12-06] MEDS: ACETAMINOPHEN 1,000 MG/100 ML VIAL IV ONE ×2 (14:56→21:51)
[2023-12-06] MEDS: metroNIDAZOLE 500 MG/100 ML BAG IV SCH (15:14)
[2023-12-06] MEDS: DOXYCYCLINE HYCLATE 100 MG in DEXTROSE 5% MINI-B 100 ML IV SCH (16:18)
[2023-12-06] MEDS: OPTIRAY 320 125ml IV ONE (16:39)
--- NOTE | 2023-12-06 16:56 | CT Scan Report ---
CT ANGIOGRAM OF THE CHEST CLINICAL HISTORY: Generalized weakness. COMPARISON STUDY: Chest x-ray dated 12/06/2023. Chest CT dated 03/30/2022. TECHNIQUE: Following the IV administration of 119 cc of Optiray 320, CT angiogram of the chest was pe rformed from the upper abdomen to the thoracic inlet utilizing the pulmonary embolus protocol. Images are reviewed in the axial, sagittal, and coronal planes. 3-D MIPS images are created and assessed. I V contrast was administered without complication. A dose lowering technique was utilized adhering to the principles of ALARA. The examination is degraded by motion artifact, as well as by streak artifa ct from the arms which could not be elevated above the chest. CT DOSE: 834.18 mGy.cm FINDINGS: Thyroid: Imaged portions of the thyroid gland are normal in size and attenuation. Thoracic aorta: The thoracic aorta is normal in caliber and demonstrates standard 3-vessel arch anato my. No dissection is seen. Pulmonary vasculature: The pulmonary trunk is normal in caliber. There are no filling defects identif ied in main, lobar, or segmental pulmonary branches to suggest pulmonary embolus. Evaluation of the p eripheral branches is degraded by motion artifact. Heart: The heart is mildly enlarged and without pericardial effusion. Lungs and pleural spaces: Evaluation of the lung parenchyma is degraded by motion artifact. Dependent atelectasis is seen bilaterally. The trachea and central airways are clear. There is no airspace con solidation typical for pneumonia or pleural effusion. Mediastinum: There is no mediastinal lymphadenopathy. Mignon: Clear. Axillae: There is no axillary lymphadenopathy. Upper abdomen: Cholecystectomy clips are noted. There is a tiny hiatal hernia. Postoperative change i s seen in the stomach. The liver appears steatotic. Calcified granulomas are noted in the spleen. Skeletal structures: The skeletal structures are osteopenic. Degenerative change and mild scoliosis i s noted in the spine. No lytic or blastic bony lesions are seen. IMPRESSION: 1. Streak and motion compromised examination. 2. There is no evidence of pulmonary embolus in the main, lobar, or segmental pulmonary arteries. 3. There is no airspace consolidation typical for pneumonia or pleural effusion. 4. Hepatic steatosis. 5. Additional findings as above. ACT 112: Negative or not required by law. Electronically signed by: Zander Humphrey M.D. 12/06/2023 4:54 PM
[2023-12-06] MEDS: INSULIN ASPART PER UNIT CHARGE SC SCH (18:30)
--- NOTE | 2023-12-06 20:52 | Magnetic Resonance Report ---
Exam(s): MRI MRCP EXAM: MR Abdomen Without Intravenous Contrast, MRCP Protocol CLINICAL HISTORY: Reason for exam: elevated LFTs. TECHNIQUE: Multiplanar magnetic resonance images of the abdomen without intravenous contrast using MRCP protocol. COMPARISON: CT abdomen pelvis 02/02/2023 FINDINGS: Bile ducts: Unremarkable. No stones. No ductal dilation. Gallbladder: Mildly dilated CBD measuring 7 mm likely related to prior cholecystectomy. No filling defect or stricture. Status post cholecystectomy. Liver: Unremarkable. Pancreas: Unremarkable. No ductal dilation. Spleen: Unremarkable. No splenomegaly. Adrenals: Unremarkable. No mass. Kidneys and ureters: Unremarkable. No hydronephrosis. Stomach and bowel: Unremarkable. No obstruction. IMPRESSION: No acute abnormality. Electronically signed by: Trell Pereira MD 12/06/23 20:51 PM
[2023-12-06] MEDS: PANTOprazole 40 MG TAB PO SCH (21:39)
[2023-12-06] MEDS: busPIRone 7.5 MG TAB PO SCH (21:40)
[2023-12-06] MEDS: DIVALPROEX EXTENDED RELEASE 250 MG TABCR PO SCH (21:40)
[2023-12-06] MEDS: traZODone HCL 100 MG TAB PO SCH (21:40)
[2023-12-07] MEDS: LEVOTHYROXINE SODIUM 25 MCG TABLET PO SCH (05:44)
[2023-12-07] MEDS: ACETAMINOPHEN 325 MG TAB PO PRN (06:09)
[2023-12-07 06:42] LABS: Hematocrit (blood only) 34.1 % (37.0-47.0); Hemoglobin 11.8 g/dl (12.0-16.0); Mean Corpuscular Hgb Conc 34.6 g/dL (32.0-36.0); Mean Corpuscular Volume 89.5 fL (80.0-100.0); Mean Platelet Volume 9.5 fL (9.4-12.4); Platelet Count 227 K/uL (130-400); RDW Coefficient of Variation 13.5 % (11.5-14.5); RDW Standard Deviation 44.5 fL (36.4-46.3); Red Blood Count 3.81 M/uL (4.20-5.40); White Blood Count 8.87 K/ul (4.8-10.8)
[2023-12-07 07:01] LABS: Albumin Globulin Ratio 1.3 (0.9-2); Albumin Level 3.2 gm/dl (3.4-5.0); Bilirubin,Total 0.5 mg/dl (0.2-1.0); Calcium 8.6 mg/dl (8.6-10.3); Creatinine Clr Calc Pharmacy 107.8 ml/min; Est GFR (African American) 114.2 ml/min; Est GFR (Non-African American) 98.5 ml/min; Globulin 2.5 gm/dl (2.5-4.0); Potassium 3.7 mmol/L (3.5-5.1); Total Protein 5.7 gm/dl (6.0-8.3)
[2023-12-07] MEDS: MONTELUKAST SODIUM 10 MG TABLET PO SCH (08:13)
[2023-12-07] MEDS: MAGNESIUM OXIDE 400 MG TAB PO SCH (08:14)
[2023-12-07] MEDS: DULoxetine HCL 60 MG CAP PO SCH (08:15)
[2023-12-07] MEDS: DICYCLOMINE HCL 10 MG CAP PO SCH (08:16)
[2023-12-07] MEDS: FERROUS SULFATE 325 MG TAB PO SCH (08:16)
[2023-12-07] MEDS: CHOLECALCIFEROL 25 MCG (1000 UNITS) TAB PO SCH (08:16)
[2023-12-07] MEDS: PROPRANOLOL HCL 60 MG LA CAP PO SCH (08:16)
[2023-12-07] MEDS: cefTRIAXone SODIUM 2,000 MG in DEXTROSE 5 % MINI-B 50 ML IV SCH (09:14)
--- NOTE | 2023-12-07 09:45 | Gastroenterology Progress Note ---
Date of Service December 07, 2023 Assessment & Plan (1) Fever: Plan: Improving (2) Leukocytosis: Plan: Resolved on antibiotics. (3) Transaminitis: Plan: Improving Plan Most likely infectious hepatitis w transaminitis. LFTs are improving w antibiotics and there is no evidence of bile duct abnormalities on US/MRCP. No indication for a GI procedure. Please watch for serology results. GI will sign off. Please notify us of new/worsening GI issues. Admission and Anticipated Discharge Date Admission Date: December 06, 2023 Supervising Physician Co-Signing Physician Notes Agree wtih pe and plan as documented. Subjective 58-year-old female admitted 12/05 for body aches, joint pain, fever elevated LFTs. Transaminases elevated: improving today AST 10 4-60, ALT 102 does 92, alk phos 1 40-1 26. Total bilirubin and lipase have been normal. CT and ultrasound with CBD at 7 mm post cholecystectomy, otherwise no abnormalities On broad-spectrum antibiotics including Zosyn and doxycycline. Tickborne illness panel has been negative. Serology for Hep ABC, EBV, HSV, CMV and parvovirus are pending. Tylenol and alcohol levels were low. Most recent fever last evening 37.7 Today patient feels much better but continues to have pain in the right shoulder and arm. Pain yesterday was more generalized. Review of Systems 2 Review of Systems: ROS: Gen: + fevers +entire body aches Eyes: No eye redness, or pain, no recent vision changes Resp: + mild sinus congestion a few days ago, resolved now. No SOB, no cough Cardio: No palpitations/irregular beats, no chest pain GI: No abdominal pain, no nausea/vomiting : Denies pain on urination Skin: No jaundice, itching or new rashes M/S : no joint redness or swelling but feels like all joints are painful and stiff Physical Exam 2 Constitutional: + ill appearing (but improved compared t o yesterday), cooperative and + overweight Eyes: PERRL, conjunctivae normal, anicteric sclerae ENMT: external ear and nose normal, oropharynx normal Neck: trachea midline, no thyromegaly Respiratory: normal respiratory effort, lungs clear to auscultation Cardiovascular: RRR, no murmur, no edema Gastrointestinal (Abdomen): normal bowel sounds, soft, nontender, no hepatosplenomegaly Musculoskeletal: No visible red or swollen joints. Rt shoulder is very tender to palpation Skin: no rashes, warm and dry Neurologic: PERRL, EOMI, accommodation nl, no face palsy, no dysarthria Psychiatric: A+Ox3, euthymic affect Insight: good insight Judgment: good judgement Lymphatic: no cervical or axillary lymphadenopathy Results & Data Vital Signs (Past 12 Hours) Vital Signs Temp Pulse Resp BP Pulse Ox O2 Del Method O2 Flow Rate 12/07/23 08:24 94 Nasal Cannula 2 12/07/23 07:04 37.2 C 89 16 117/74 94 Nasal Cannula 3 12/06/23 23:00 37.2 C 102 H 20 115/73 93 Nasal Cannula 2 12/06/23 21:54 37.7 C H 118 H 20 132/65 94 Nasal Cannula 2 Laboratory Results 12/07/23 06:09 12/07/23 06:09 Diagnostic Findings Liver US 12/06/23: 1. Mild dilatation of the common bile duct, likely related to cholecystectomy. This could be correlated with obstructive liver function tests. 2. Obscured pancreas. MRCP 12/06/23: No acute abnormality (1) Fever Fever type: unspecified Qualified Code(s): R50.9 - Fever, unspecified (2) Leukocytosis Leukocytosis type: unspecified Qualified Code(s): D72.829 - Elevated white blood cell count, unspecified
[2023-12-07] MEDS: ACETAMINOPHEN 1,000 MG/100 ML VIAL IV PRN (11:57)
--- NOTE | 2023-12-07 12:49 | XRay Report ---
XR shoulder RT min 2V routine CLINICAL HISTORY: RT SHOULDER PAIN COMPARISON STUDY: None. FINDINGS: No acute fracture or dislocation within the right shoulder. The right clavicle is intact. S oft tissues are unremarkable. Mild osteoarthritis at the acromioclavicular and glenohumeral joints. P unctate calcification at the distal supraspinatus tendon. IMPRESSION: 1. No fracture or dislocation within the right shoulder. 2. Mild osteoarthritis. 3. Mild supraspinatus calcific tendinitis ACT 112: Negative or not required by law. Electronically signed by: Rob Wasserman M.D. 12/07/2023 12:48 PM
--- NOTE | 2023-12-07 14:42 | Hospitalist Progress Note ---
Date of Service December 07, 2023 Assessment & Plan (1) Febrile illness: Plan: Possible pneumonia Patient presenting from home with reports of fever, generalized body aches, and weakness. She was found to have mild leukocytosis, slightly elevated LFTs. Infectious workup so far; Chest x-raymild left basilar opacity CTA chestno PE; dependent atelectasis bilaterally MRCPno acute finding Blood cultureno growth Lyme screen negative Respiratory viral panel negative Urine Legionella negative Anaplasma and Babesia smear negative Urinalysis negative for infection Continue on antibiotic with ceftriaxone doxycycline; plan to treat for 7 days for pneumonia. Stop Flagyl Will follow-up on Q fever workup, Anaplasma, Babesia PCR, parvovirus Will follow-up on hepatitis panel If infectious workup unrevealing, consider course of steroids for possible psoriatic arthritis flare. Recently completed prednisone taper for flare a couple of weeks ago. (2) Transaminitis: Plan: T. bili 0.9, AST 104, ALT 102, alk phos 140 on admission RUQ US shows mild CBD dilation, possibly related to history of cholecystectomy MRCP did not show acute findings Improvement in transaminitis noted (3) Hypoxia: Plan: Acute hypoxic respiratory failure Possible pneumonia on CXR Wean oxygen as tolerated Continue on antibiotics as above (4) DM II (diabetes mellitus, type II), controlled: Plan: Hgb A1c 6.1 09/2023 Currently managed on Ozempic NovoLog per protocol while hospitalized (5) Psoriatic arthritis: Plan: Recently treated for flare with prednisone taper If infectious workup unrevealing as above, consider additional steroid course for possible flare given diffuse body aches (6) GERD (gastroesophageal reflux disease): Plan: Chronic, stable continue PPI (7) Depression: Plan: Chronic, stable Continue home meds (8) Hypothyroidism: Plan: Chronic, stable Continue levothyroxine DVT PROPHYLAXIS SQ Lovenox Time spent evaluating patient, direct bedside care, chart review, placing orders, interpretation of diagnostic studies, discussion with consultants, patient, and family members, as well as other required patient management activities is 50 minutes Please note the above document was generated using voice recognition software. It may contain grammatical, syntax or spelling errors. Any formal questions or concerns about the content, text or information contained within the body of this dictation should be directly addressed to the provider for clarification Admission and Anticipated Discharge Date Admission Date: December 06, 2023 Subjective Patient seen and examined at bedside. She is comfortably lying on the bed; not in distress. She reports improvement in her symptoms compared to yesterday. Review of Systems Review of Systems: All systems reviewed & are unremarkable except as noted in Subjective Physical Exam Physical Exam: Constitutional: WD/WN, vitals as above, NAD, sitting up in bed, pleasant, conversing easily Respiratory: normal respiratory effort, lungs clear to auscultation, no wheeze, rales, rhonchi. Normal insp/exp effort, no accessory muscle use Cardiovascular: RRR, no murmur, no edema Vessels: no JVD or carotid bruit Chest: normal inspection of chest Abdomen: normal bowel sounds, soft, nontender, no hepatosplenomegaly Musculoskeletal: no cyanosis or clubbing, extremities motor strength 5/5 Skin: no rashes, warm and dry normal turgor Neurologic: PERRL, EOMI, accommodation nl, no face palsy, no dysarthria CN's II- XI intact bilaterally and moves all extremities Psychiatric: A+Ox3, euthymic affect Results & Data Results & Data Vital Signs (Past 12 Hours) Vital Signs Temp Pulse Resp BP BP Pulse Ox O2 Del Method 12/07/23 14:19 36.5 C 72 17 94/60 L 95 Nasal Cannula 12/07/23 08:24 94 Nasal Cannula 12/07/23 07:20 Nasal Cannula 12/07/23 07:04 37.2 C 89 16 117/74 94 Nasal Cannula O2 Flow Rate 12/07/23 14:19 2 12/07/23 08:24 2 12/07/23 07:20 3 12/07/23 07:04 3
[2023-12-07] MEDS ORDERED: ACETAMINOPHEN 1,000 MG/100 ML VIAL IV ONE (21:00)
[2023-12-08] MEDS: PROMETHAZINE HCL 25 MG TAB PO PRN (05:39)
[2023-12-08 06:13] LABS: Basophils # (auto) 0.03 K/uL (0.00-0.20); Basophils % (auto) 0.3 %; Eosinophils # (auto) 0.09 K/uL (0.00-0.50); Eosinophils % (auto) 0.8 %; Hematocrit (blood only) 34.2 % (37.0-47.0); Hemoglobin 11.6 g/dl (12.0-16.0); Immature Granulocytes # (auto) 0.06 K/uL (0.01-0.20); Immature Granulocytes % (auto) 0.5 %; Lymphocytes # (auto) 1.11 K/uL (1.20-3.40); Lymphocytes % (auto) 10.2 %; Mean Corpuscular Hemoglobin 30.7 pg (25.0-34.0); Mean Corpuscular Hgb Conc 33.9 g/dL (32.0-36.0); Mean Corpuscular Volume 90.5 fL (80.0-100.0); Mean Platelet Volume 9.6 fL (9.4-12.4); Monocytes # (auto) 0.71 K/uL (0.11-0.59); Monocytes % (auto) 6.5 %; Neutrophils # (auto) 8.92 K/uL (1.40-6.50); Neutrophils % (auto) 81.7 %; Platelet Count 261 K/uL (130-400); RDW Coefficient of Variation 13.3 % (11.5-14.5); RDW Standard Deviation 44.4 fL (36.4-46.3); Red Blood Count 3.78 M/uL (4.20-5.40); White Blood Count 10.92 K/ul (4.8-10.8)
[2023-12-08 06:27] LABS: Albumin Globulin Ratio 1.1 (0.9-2); Albumin Level 3.1 gm/dl (3.4-5.0); BUN Creatinine Ratio 20.4 (10-20); Bilirubin,Total 0.4 mg/dl (0.2-1.0); Calcium 8.6 mg/dl (8.6-10.3); Creatinine Clr Calc Pharmacy 121.8 ml/min; Est GFR (African American) 118.9 ml/min; Est GFR (Non-African American) 102.6 ml/min; Globulin 2.8 gm/dl (2.5-4.0); Potassium 3.8 mmol/L (3.5-5.1); Total Protein 5.9 gm/dl (6.0-8.3)
[2023-12-08] MEDS: HYDROmorphone INJ 0.5 MG/0.5 ML SYR IV STA (07:04)
[2023-12-08] MEDS: GADOBUTROL 10ML VIAL IV ONE (12:32)
--- NOTE | 2023-12-08 13:13 | Magnetic Resonance Report ---
Brain MRI WITH AND WITHOUT CONTRAST HISTORY: weakness of lower extremities TECHNIQUE: Multiplanar multisequence MRI of the brain was performed both before and after the intrave nous administration of contrast. COMPARISON STUDY: Head CT 04/26/2023. Brain MRI 05/11/2017. FINDINGS: There are no areas of restricted diffusion to suggest acute infarction. The midline structu res are intact. The paranasal sinuses are clear. The mastoid air cells are clear. The ventricles and sulci are within normal limits for age. There is no mass, hematoma, midline shift. The major vascular flow-voids at the skull base are well maintained. Postcontrast sequences show no areas of abnormal e nhancement. There are 2 old punctate lacunar infarcts within the cerebellar hemispheres. There are fe w punctate foci of T2 hyperintensity seen within the periventricular white matter of the supratentori al brain. These are similar to the prior study and favor minimal microvascular ischemic change. Stabl e 1.4 cm left frontal meningioma. IMPRESSION: 1. No significant change compared to the prior study. No acute intracranial abnormality. 2. Stable 1.4 cm left frontal meningioma. ACT 112: Negative or not required by law. Electronically signed by: Rob Wasserman M.D. 12/08/2023 1:10 PM
--- NOTE | 2023-12-08 14:44 | Hospitalist Progress Note ---
Date of Service December 08, 2023 Assessment & Plan (1) Febrile illness: Plan: Possible pneumonia Patient presenting from home with reports of fever, generalized body aches, and weakness. She was found to have mild leukocytosis, slightly elevated LFTs. Infectious workup so far; Chest x-raymild left basilar opacity CTA chestno PE; dependent atelectasis bilaterally MRCPno acute finding Blood cultureno growth Lyme screen negative Respiratory viral panel negative Urine Legionella negative Anaplasma and Babesia smear negative Urinalysis negative for infection Continue on antibiotic with ceftriaxone doxycycline; plan to treat for 7 days for pneumonia. Stop Flagyl Will follow-up on Q fever workup, Anaplasma, Babesia PCR, parvovirus Will follow-up on hepatitis panel If infectious workup unrevealing, consider course of steroids for possible psoriatic arthritis flare. Recently completed prednisone taper for flare a couple of weeks ago. MRI brain with and without contrast done to rule out multiple sclerosis. PT OT evaluation (2) Transaminitis: Plan: T. bili 0.9, AST 104, ALT 102, alk phos 140 on admission RUQ US shows mild CBD dilation, possibly related to history of cholecystectomy MRCP did not show acute findings Improvement in transaminitis noted. Continue to monitor. (3) Hypoxia: Plan: Acute hypoxic respiratory failure Possible pneumonia on CXR Weaned off to room air (4) DM II (diabetes mellitus, type II), controlled: Plan: Hgb A1c 6.1 09/2023 Currently managed on Ozempic NovoLog per protocol while hospitalized (5) Psoriatic arthritis: Plan: Recently treated for flare with prednisone taper If infectious workup unrevealing as above, consider additional steroid course for possible flare given diffuse body aches (6) GERD (gastroesophageal reflux disease): Plan: Chronic, stable continue PPI (7) Depression: Plan: Chronic, stable Continue home meds (8) Hypothyroidism: Plan: Chronic, stable Continue levothyroxine DVT PROPHYLAXIS SQ Lovenox Time spent evaluating patient, direct bedside care, chart review, placing orders, interpretation of diagnostic studies, discussion with consultants, patient, and family members, as well as other required patient management activities is 50 minutes Please note the above document was generated using voice recognition software. It may contain grammatical, syntax or spelling errors. Any formal questions or concerns about the content, text or information contained within the body of this dictation should be directly addressed to the provider for clarification Admission and Anticipated Discharge Date Admission Date: December 06, 2023 Subjective Patient seen and examined at bedside. She reports that she is feeling slightly better compared to yesterday. Reports her weakness is getting better slightly. Still continues to complain of pain. Review of Systems Review of Systems: All systems reviewed & are unremarkable except as noted in Subjective Physical Exam Physical Exam: Constitutional: WD/WN, vitals as above, NAD, sitting up in bed, pleasant, conversing easily Respiratory: normal respiratory effort, lungs clear to auscultation, no wheeze, rales, rhonchi. Normal insp/exp effort, no accessory muscle use Cardiovascular: RRR, no murmur, no edema Vessels: no JVD or carotid bruit Chest: normal inspection of chest Abdomen: normal bowel sounds, soft, nontender, no hepatosplenomegaly Musculoskeletal: no cyanosis or clubbing, extremities motor strength 5/5 Skin: no rashes, warm and dry normal turgor Neurologic: PERRL, EOMI, accommodation nl, no face palsy, no dysarthria CN's II- XI intact bilaterally and moves all extremities Psychiatric: A+Ox3, euthymic affect Results & Data Results & Data Vital Signs (Past 12 Hours) Vital Signs Temp Pulse Resp BP Pulse Ox O2 Del Method O2 Flow Rate 12/08/23 11:36 93 Room Air 12/08/23 07:20 Nasal Cannula 2 12/08/23 07:07 37.3 C 89 16 124/76 94 Nasal Cannula 2
[2023-12-08 19:28] LABS: Babesia microti DNA Not Detected (Not Detected)
[2023-12-09] MEDS: HYDROmorphone INJ 0.5 MG/0.5 ML SYR IV STA (05:44)
[2023-12-09 06:15] LABS: Basophils # (auto) 0.03 K/uL (0.00-0.20); Basophils % (auto) 0.3 %; Eosinophils # (auto) 0.18 K/uL (0.00-0.50); Eosinophils % (auto) 2.1 %; Hematocrit (blood only) 33.1 % (37.0-47.0); Hemoglobin 11.5 g/dl (12.0-16.0); Immature Granulocytes # (auto) 0.02 K/uL (0.01-0.20); Immature Granulocytes % (auto) 0.2 %; Lymphocytes # (auto) 1.98 K/uL (1.20-3.40); Mean Corpuscular Hemoglobin 30.7 pg (25.0-34.0); Mean Corpuscular Hgb Conc 34.7 g/dL (32.0-36.0); Mean Corpuscular Volume 88.3 fL (80.0-100.0); Mean Platelet Volume 9.3 fL (9.4-12.4); Monocytes # (auto) 0.73 K/uL (0.11-0.59); Monocytes % (auto) 8.5 %; Neutrophils # (auto) 5.68 K/uL (1.40-6.50); Neutrophils % (auto) 65.9 %; Platelet Count 314 K/uL (130-400); RDW Coefficient of Variation 13.2 % (11.5-14.5); Red Blood Count 3.75 M/uL (4.20-5.40); White Blood Count 8.62 K/ul (4.8-10.8)
[2023-12-09 07:18] LABS: Albumin Globulin Ratio 1.1 (0.9-2); BUN Creatinine Ratio 23.6 (10-20); Bilirubin,Total 0.3 mg/dl (0.2-1.0); C Reactive Protein 25.07 mg/dl (0-0.5); Calcium 8.8 mg/dl (8.6-10.3); Creatinine Clr Calc Pharmacy 119.5 ml/min; Est GFR (African American) 118.2 ml/min; Est GFR (Non-African American) 101.9 ml/min; Globulin 2.8 gm/dl (2.5-4.0); Potassium 3.7 mmol/L (3.5-5.1); Total Protein 5.8 gm/dl (6.0-8.3)
--- NOTE | 2023-12-09 11:29 | Hospitalist Progress Note ---
Date of Service December 09, 2023 Assessment & Plan (1) Febrile illness: Plan: Possible pneumonia Patient presenting from home with reports of fever, generalized body aches, and weakness. She was found to have mild leukocytosis, slightly elevated LFTs. Infectious workup so far; Chest x-raymild left basilar opacity CTA chestno PE; dependent atelectasis bilaterally MRCPno acute finding Blood cultureno growth Lyme screen negative Respiratory viral panel negative Urine Legionella negative Anaplasma and Babesia smear negative Urinalysis negative for infection Continue on antibiotic with ceftriaxone doxycycline; plan to treat for 7 days for pneumonia. Will follow-up on Q fever workup, Anaplasma, Babesia PCR, parvovirus Will follow-up on hepatitis panel MRI brain with and without contrast done to rule out multiple sclerosis. Continue PT OT (2) Transaminitis: Plan: T. bili 0.9, AST 104, ALT 102, alk phos 140 on admission RUQ US shows mild CBD dilation, possibly related to history of cholecystectomy MRCP did not show acute findings Improvement in transaminitis noted. Continue to monitor. (3) Hypoxia: Plan: Acute hypoxic respiratory failure Possible pneumonia on CXR Wean off oxygen as tolerated (4) DM II (diabetes mellitus, type II), controlled: Plan: Hgb A1c 6.1 09/2023 Currently managed on Ozempic NovoLog per protocol while hospitalized (5) Psoriatic arthritis: Plan: Recently treated for flare with prednisone taper (6) GERD (gastroesophageal reflux disease): Plan: Chronic, stable continue PPI (7) Depression: Plan: Chronic, stable Continue home meds (8) Hypothyroidism: Plan: Chronic, stable Continue levothyroxine DVT PROPHYLAXIS SQ Lovenox Please note the above document was generated using voice recognition software. It may contain grammatical, syntax or spelling errors. Any formal questions or concerns about the content, text or information contained within the body of this dictation should be directly addressed to the provider for clarification Admission and Anticipated Discharge Date Admission Date: December 06, 2023 Subjective Reports more energy compared to yesterday. She is getting up and moving around better. No significant events overnight Review of Systems Review of Systems: All systems reviewed & are unremarkable except as noted in Subjective Physical Exam Physical Exam: Constitutional: WD/WN, vitals as above, NAD, sitting up in bed, pleasant, conversing easily Respiratory: normal respiratory effort, lungs clear to auscultation, no wheeze, rales, rhonchi. Normal insp/exp effort, no accessory muscle use Cardiovascular: RRR, no murmur, no edema Vessels: no JVD or carotid bruit Chest: normal inspection of chest Abdomen: normal bowel sounds, soft, nontender, no hepatosplenomegaly Musculoskeletal: no cyanosis or clubbing, extremities motor strength 5/5 Skin: no rashes, warm and dry normal turgor Neurologic: PERRL, EOMI, accommodation nl, no face palsy, no dysarthria CN's II- XI intact bilaterally and moves all extremities Psychiatric: A+Ox3, euthymic affect Results & Data Results & Data Vital Signs (Past 12 Hours) Vital Signs Temp Pulse Resp BP Pulse Ox O2 Del Method O2 Flow Rate 12/09/23 07:20 Nasal Cannula 2 12/09/23 07:10 96 Nasal Cannula 2 12/09/23 07:09 92 Nasal Cannula 2 12/09/23 07:08 36.3 C L 87 19 105/63 90 Room Air
[2023-12-10] MEDS: HYDROmorphone INJ 0.5 MG/0.5 ML SYR IV STA (03:52)
[2023-12-10] MEDS: LACTULOSE SYRUP 30 GM/45 ML UDP PO ONE (08:40)
[2023-12-10] MEDS: predniSONE 20 MG TAB PO SCH (10:38)
[2023-12-10 12:43] LABS: EBV Virus Capsid Ag IgG Ab >750.00 U/mL
--- NOTE | 2023-12-10 14:25 | Hospitalist Progress Note ---
Date of Service December 10, 2023 Assessment & Plan (1) Febrile illness: Plan: Possible pneumonia Patient presenting from home with reports of fever, generalized body aches, and weakness. She was found to have mild leukocytosis, slightly elevated LFTs. Infectious workup so far; Chest x-raymild left basilar opacity CTA chestno PE; dependent atelectasis bilaterally MRCPno acute finding Blood cultureno growth Lyme screen negative Respiratory viral panel negative Urine Legionella negative Anaplasma and Babesia smear negative Urinalysis negative for infection EBV serology positive with IgM, IgG and nucleocapsid. Possibly; EBV infection (fatigue, tiredness along with mild transaminitis ) Will continue on antibiotic with ceftriaxone doxycycline; plan to treat for 7 days for pneumonia. Will follow-up on Q fever workup, Anaplasma, Babesia PCR, parvovirus Will follow-up on hepatitis panel MRI brain with and without contrast done to rule out multiple sclerosis. Continue PT OT; possible rehab. Steroid for possible psoriatic arthritis flareup; started on 20 mg once a day; will provide 1 week course (2) Transaminitis: Plan: T. bili 0.9, AST 104, ALT 102, alk phos 140 on admission RUQ US shows mild CBD dilation, possibly related to history of cholecystectomy MRCP did not show acute findings Improvement in transaminitis noted. Continue to monitor. (3) Hypoxia: Plan: Acute hypoxic respiratory failure Possible pneumonia on CXR Wean off oxygen as tolerated (4) DM II (diabetes mellitus, type II), controlled: Plan: Hgb A1c 6.1 09/2023 Currently managed on Ozempic NovoLog per protocol while hospitalized (5) Psoriatic arthritis: Plan: Recently treated for flare with prednisone taper (6) GERD (gastroesophageal reflux disease): Plan: Chronic, stable continue PPI (7) Depression: Plan: Chronic, stable Continue home meds (8) Hypothyroidism: Plan: Chronic, stable Continue levothyroxine DVT PROPHYLAXIS SQ Lovenox Please note the above document was generated using voice recognition software. It may contain grammatical, syntax or spelling errors. Any formal questions or concerns about the content, text or information contained within the body of this dictation should be directly addressed to the provider for clarification Admission and Anticipated Discharge Date Admission Date: December 06, 2023 Subjective Patient seen and examined at bedside. She reports that she is feeling slightly better. She is open to the idea of going to rehab Review of Systems Review of Systems: All systems reviewed & are unremarkable except as noted in Subjective Physical Exam Physical Exam: Constitutional: WD/WN, vitals as above, NAD, sitting up in bed, pleasant, conversing easily Respiratory: normal respiratory effort, lungs clear to auscultation, no wheeze, rales, rhonchi. Normal insp/exp effort, no accessory muscle use Cardiovascular: RRR, no murmur, no edema Vessels: no JVD or carotid bruit Chest: normal inspection of chest Abdomen: normal bowel sounds, soft, nontender, no hepatosplenomegaly Musculoskeletal: no cyanosis or clubbing, extremities motor strength 5/5 Skin: no rashes, warm and dry normal turgor Neurologic: PERRL, EOMI, accommodation nl, no face palsy, no dysarthria CN's II- XI intact bilaterally and moves all extremities. Slightly weak in bilateral lower extremity; 3/5 Psychiatric: A+Ox3, euthymic affect Results & Data Results & Data Vital Signs (Past 12 Hours) Vital Signs Temp Pulse Resp BP Pulse Ox O2 Del Method 12/10/23 06:14 36.8 C 76 18 108/70 93 Room Air
[2023-12-10] MEDS: ACETAMINOPHEN 1,000 MG/100 ML VIAL IV PRN (16:39)
[2023-12-11 06:56] LABS: Basophils # (auto) 0.03 K/uL (0.00-0.20); Basophils % (auto) 0.4 %; Eosinophils # (auto) 0.13 K/uL (0.00-0.50); Eosinophils % (auto) 1.7 %; Hemoglobin 12.1 g/dl (12.0-16.0); Immature Granulocytes # (auto) 0.06 K/uL (0.01-0.20); Immature Granulocytes % (auto) 0.8 %; Lymphocytes # (auto) 2.82 K/uL (1.20-3.40); Mean Corpuscular Hemoglobin 30.9 pg (25.0-34.0); Mean Corpuscular Hgb Conc 35.6 g/dL (32.0-36.0); Mean Corpuscular Volume 86.7 fL (80.0-100.0); Mean Platelet Volume 8.9 fL (9.4-12.4); Monocytes # (auto) 0.78 K/uL (0.11-0.59); Monocytes % (auto) 10.2 %; Neutrophils # (auto) 3.81 K/uL (1.40-6.50); Neutrophils % (auto) 49.9 %; Platelet Count 402 K/uL (130-400); RDW Coefficient of Variation 13.2 % (11.5-14.5); RDW Standard Deviation 41.4 fL (36.4-46.3); Red Blood Count 3.92 M/uL (4.20-5.40); White Blood Count 7.63 K/ul (4.8-10.8)
[2023-12-11 07:50] LABS: BUN Creatinine Ratio 23.2 (10-20); Calcium 8.7 mg/dl (8.6-10.3); Creatinine Clr Calc Pharmacy 117.4 ml/min; Est GFR (African American) 117.5 ml/min; Est GFR (Non-African American) 101.3 ml/min; Potassium 3.4 mmol/L (3.5-5.1)
[2023-12-11] MEDS: ACETAMINOPHEN 325 MG TAB PO PRN (12:56)
--- NOTE | 2023-12-11 14:32 | Hospitalist Progress Note ---
Date of Service December 11, 2023 Assessment & Plan (1) Febrile illness: Plan: Possible pneumonia Patient presenting from home with reports of fever, generalized body aches, and weakness. She was found to have mild leukocytosis, slightly elevated LFTs. Infectious workup so far; Chest x-raymild left basilar opacity CTA chestno PE; dependent atelectasis bilaterally MRCPno acute finding Blood cultureno growth Lyme screen negative Respiratory viral panel negative Urine Legionella negative Anaplasma and Babesia smear negative Urinalysis negative for infection Anaplasma PCR negative Babesia PCR negative EBV serology positive with IgM, IgG and nucleocapsid. Possibly; EBV infection (fatigue, tiredness along with mild transaminitis ) Will continue on antibiotic with ceftriaxone doxycycline; plan to treat for 7 days for pneumonia. Will follow-up on Q fever workup, parvovirus Will follow-up on hepatitis panel MRI brain with and without contrast done to rule out multiple sclerosis. Continue PT OT; patient wants to go to rehab Steroid for possible psoriatic arthritis flareup; started on 20 mg once a day for 3 days and 10 mg once a day for 3 days. Patient reports improvement in symptoms. (2) Transaminitis: Plan: T. bili 0.9, AST 104, ALT 102, alk phos 140 on admission RUQ US shows mild CBD dilation, possibly related to history of cholecystectomy MRCP did not show acute findings Improvement in transaminitis noted. Continue to monitor. (3) Hypoxia: Plan: Acute hypoxic respiratory failure Possible pneumonia on CXR Wean off oxygen as tolerated (4) DM II (diabetes mellitus, type II), controlled: Plan: Hgb A1c 6.1 09/2023 Currently managed on Ozempic NovoLog per protocol while hospitalized (5) Psoriatic arthritis: Plan: Recently treated for flare with prednisone taper (6) GERD (gastroesophageal reflux disease): Plan: Chronic, stable continue PPI (7) Depression: Plan: Chronic, stable Continue home meds (8) Hypothyroidism: Plan: Chronic, stable Continue levothyroxine DVT PROPHYLAXIS SQ Lovenox Dispositionpatient medically stable for transfer for rehab. Please note the above document was generated using voice recognition software. It may contain grammatical, syntax or spelling errors. Any formal questions or concerns about the content, text or information contained within the body of this dictation should be directly addressed to the provider for clarification Admission and Anticipated Discharge Date Admission Date: December 06, 2023 Subjective Patient seen and examined at bedside. She reports that weakness on her right side have resolved and she reports weakness on her left arm. She reports that she has been getting up to the bathroom. Review of Systems Review of Systems: All systems reviewed & are unremarkable except as noted in Subjective Physical Exam Physical Exam: Constitutional: WD/WN, vitals as above, NAD, sitting up in bed, pleasant, conversing easily Respiratory: normal respiratory effort, lungs clear to auscultation, no wheeze, rales, rhonchi. Normal insp/exp effort, no accessory muscle use Cardiovascular: RRR, no murmur, no edema Vessels: no JVD or carotid bruit Chest: normal inspection of chest Abdomen: normal bowel sounds, soft, nontender, no hepatosplenomegaly Musculoskeletal: no cyanosis or clubbing, extremities motor strength 5/5 Skin: no rashes, warm and dry normal turgor Neurologic: PERRL, EOMI, accommodation nl, no face palsy, no dysarthria CN's II- XI intact bilaterally and moves all extremities. Slightly weak in bilateral lower extremity; 3/5 Psychiatric: A+Ox3, euthymic affect Results & Data Results & Data Vital Signs (Past 12 Hours) Vital Signs Temp Pulse Resp BP Pulse Ox O2 Del Method 12/11/23 07:06 36.8 C 90 17 145/90 H 90 Room Air
[2023-12-11] MEDS: CIPRO 0.3%/DEXAMETHASONE 0.1% OTIC SUSP 7.5ML OT SCH (16:10)
[2023-12-12 06:20] LABS: Basophils # (auto) 0.03 K/uL (0.00-0.20); Basophils % (auto) 0.4 %; Eosinophils # (auto) 0.18 K/uL (0.00-0.50); Eosinophils % (auto) 2.3 %; Hematocrit (blood only) 33.9 % (37.0-47.0); Hemoglobin 11.9 g/dl (12.0-16.0); Immature Granulocytes % (auto) 1.3 %; Lymphocytes # (auto) 3.34 K/uL (1.20-3.40); Lymphocytes % (auto) 42.5 %; Mean Corpuscular Hemoglobin 30.5 pg (25.0-34.0); Mean Corpuscular Hgb Conc 35.1 g/dL (32.0-36.0); Mean Corpuscular Volume 86.9 fL (80.0-100.0); Mean Platelet Volume 8.9 fL (9.4-12.4); Monocytes # (auto) 0.77 K/uL (0.11-0.59); Monocytes % (auto) 9.8 %; Neutrophils # (auto) 3.43 K/uL (1.40-6.50); Neutrophils % (auto) 43.7 %; Platelet Count 439 K/uL (130-400); RDW Coefficient of Variation 13.1 % (11.5-14.5); RDW Standard Deviation 41.1 fL (36.4-46.3); White Blood Count 7.85 K/ul (4.8-10.8)
[2023-12-12 06:38] LABS: Albumin Globulin Ratio 1.2 (0.9-2); Albumin Level 3.1 gm/dl (3.4-5.0); BUN Creatinine Ratio 21.1 (10-20); Bilirubin,Total 0.2 mg/dl (0.2-1.0); Calcium 8.7 mg/dl (8.6-10.3); Creatinine Clr Calc Pharmacy 115.4 ml/min; Est GFR (African American) 116.8 ml/min; Est GFR (Non-African American) 100.8 ml/min; Globulin 2.6 gm/dl (2.5-4.0); Potassium 3.5 mmol/L (3.5-5.1); Total Protein 5.7 gm/dl (6.0-8.3)
[2023-12-12 15:11] LABS: CMV IgM Antibody <30.00 AU/mL; HBSAG NON-REACTIVE (NON-REACTIVE); Hepatitis A Antibody IgM NON-REACTIVE (NON-REACTIVE); Hepatitis B Core Antibody IgM NON-REACTIVE (NON-REACTIVE); Herpes Simplex Ab IgG-2 <0.90 index; Parvovirus IgG 4.9 (<0.9); Parvovirus IgM 0.2 (<0.9)
--- NOTE | 2023-12-12 17:40 | Hospitalist Progress Note ---
Date of Service December 12, 2023 Assessment & Plan (1) Febrile illness: Plan: Possible pneumonia Patient presenting from home with reports of fever, generalized body aches, and weakness. She was found to have mild leukocytosis, slightly elevated LFTs. Infectious workup so far; Chest x-raymild left basilar opacity CTA chestno PE; dependent atelectasis bilaterally MRCPno acute finding Blood cultureno growth Lyme screen negative Respiratory viral panel negative Urine Legionella negative Anaplasma and Babesia smear negative Urinalysis negative for infection Anaplasma PCR negative Babesia PCR negative Hepatitis panel nonreactive. EBV serology positive with IgM, IgG and nucleocapsid. Possibly; EBV infection (fatigue, tiredness along with mild transaminitis ) Will continue on antibiotic with ceftriaxone doxycycline; plan to treat for 7 days for pneumonia. Will follow-up on Q fever workup, parvovirus MRI brain with and without contrast done to rule out multiple sclerosis. Continue PT OT; patient wants to go to rehab Steroid for possible psoriatic arthritis flareup; started on 20 mg once a day for 3 days and 10 mg once a day for 3 days. Patient reports improvement in symptoms. (2) Transaminitis: Plan: T. bili 0.9, AST 104, ALT 102, alk phos 140 on admission RUQ US shows mild CBD dilation, possibly related to history of cholecystectomy MRCP did not show acute findings Improvement in transaminitis noted. Continue to monitor. (3) Hypoxia: Plan: Acute hypoxic respiratory failure Possible pneumonia on CXR Wean off oxygen as tolerated (4) DM II (diabetes mellitus, type II), controlled: Plan: Hgb A1c 6.1 09/2023 Currently managed on Ozempic NovoLog per protocol while hospitalized (5) Psoriatic arthritis: Plan: Recently treated for flare with prednisone taper (6) GERD (gastroesophageal reflux disease): Plan: Chronic, stable continue PPI (7) Depression: Plan: Chronic, stable Continue home meds (8) Hypothyroidism: Plan: Chronic, stable Continue levothyroxine DVT PROPHYLAXIS SQ Lovenox Dispositionpatient medically stable for transfer for rehab/snf Please note the above document was generated using voice recognition software. It may contain grammatical, syntax or spelling errors. Any formal questions or concerns about the content, text or information contained within the body of this dictation should be directly addressed to the provider for clarification Admission and Anticipated Discharge Date Admission Date: December 06, 2023 Subjective Patient seen and examined at bedside. She reports that generalized weakness and generalized pain. She reports that she has been getting up to the bathroom. Per RN, patient eating okay and moving bowels okay. Physical Exam Physical Exam: Constitutional: WD/WN, vitals as above, NAD, sitting up in bed, pleasant, conversing easily Respiratory: normal respiratory effort, lungs clear to auscultation, no wheeze, rales, rhonchi. Normal insp/exp effort, no accessory muscle use Cardiovascular: RRR, no murmur, no edema Vessels: no JVD or carotid bruit Chest: normal inspection of chest Abdomen: normal bowel sounds, soft, nontender, no hepatosplenomegaly Musculoskeletal: no cyanosis or clubbing, extremities motor strength 5/5 Skin: no rashes, warm and dry normal turgor Neurologic: PERRL, EOMI, accommodation nl, no face palsy, no dysarthria CN's II- XI intact bilaterally and moves all extremities. Psychiatric: A+Ox3, euthymic affect Results & Data Results & Data Vital Signs (Past 12 Hours) Vital Signs Temp Pulse Pulse Resp BP Pulse Ox O2 Del Method 12/12/23 16:11 36.5 C 76 16 140/86 95 Room Air 12/12/23 11:40 36.5 C 75 14 142/84 H 96 Room Air 12/12/23 07:15 36.9 C 74 14 129/85 95 Room Air 12/12/23 07:06 36.9 C 71 16 160/90 H 93 Room Air
[2023-12-12] MEDS: SUMAtriptan succinate 50 MG TAB PO STA (21:03)
[2023-12-13 06:24] LABS: Hematocrit (blood only) 37.5 % (37.0-47.0); Hemoglobin 12.6 g/dl (12.0-16.0); Mean Corpuscular Hemoglobin 29.7 pg (25.0-34.0); Mean Corpuscular Hgb Conc 33.6 g/dL (32.0-36.0); Mean Corpuscular Volume 88.4 fL (80.0-100.0); Mean Platelet Volume 8.7 fL (9.4-12.4); Platelet Count 486 K/uL (130-400); RDW Coefficient of Variation 13.2 % (11.5-14.5); RDW Standard Deviation 42.4 fL (36.4-46.3); Red Blood Count 4.24 M/uL (4.20-5.40)
[2023-12-13 07:16] LABS: BUN Creatinine Ratio 21.1 (10-20); Calcium 8.8 mg/dl (8.6-10.3); Creatinine Clr Calc Pharmacy 115.4 ml/min; Est GFR (African American) 116.8 ml/min; Est GFR (Non-African American) 100.8 ml/min; Magnesium 2.1 mg/dl (1.7-2.4); Phosphorus 4.3 mg/dl (2.5-4.9); Potassium 3.7 mmol/L (3.5-5.1)
[2023-12-13] MEDS: predniSONE 10 MG TABLET PO SCH (08:17)
--- NOTE | 2023-12-13 12:13 | Discharge Summary ---
Date of Service December 13, 2023 Admission HPI Per Admitting Provider 58-year-old female with PMH DM type II, hypothyroidism, GERD, history of gastric bypass surgery, psoriatic arthritis, history of migraines, MINI, depression, history of pulmonary embolism (s/p Coumadin therapy), history of C. difficile, and other problems listed below who presents to the ED for evaluation of fever and bodyaches. History is obtained from the patient and review of outpatient PCP records. Patient reports she suffered a mechanical fall about 1 week ago, injuring her left shoulder. She was seen in the ED yesterday for left shoulder pain. Had an x-ray that was unremarkable and she was discharged home. Patient reports that when she returned home, she developed body aches and chills. She had a fever of 101.8. Reports diffuse body aches and generalized weakness. She then presented back to the ED for further evaluation. Patient denies chest pain and shortness of breath. No cough or sputum production. Report nause and episodes of dry heaves, no vomiting or abdominal pain. Denies urinary symptoms. In the ED, patient is afebrile, WBC 13 K. Became mildly hypoxic after receiving IV morphine. Currently saturating well on 2 L of oxygen via nasal cannula. Labs also show transaminitis with AST 104, ALT 102, alk phos 140. CRP 18.4. Lyme testing negative, Anaplasma and Babesia smears negative. CXR shows left basilar opacities suggestive of atelectasis. Patient was given IV Tylenol, IV ceftriaxone, IV morphine, IV Zofran, IVF. Admission Exam Per Admitting Provider Constitutional: WD/WN, vitals as above no acute distress Eyes: PERRL, conjunctivae normal, anicteric sclerae ENMT: external ear and nose normal, oropharynx normal Respiratory: normal respiratory effort; no respiratory distress Auscultation: + diminished lung sounds (Bilaterally) Cardiovascular: Rate/Rhythm: regular rate and regular rhythm Vessels: normal peripheral pulses Extremities: no edema Gastrointestinal (Abdomen): normal bowel sounds, soft, nontender, no hepat osplenomegaly Musculoskeletal: no cyanosis or clubbing, extremities motor strength 5/5 Skin: no rashes, warm and dry Neurologic: PERRL, EOMI, accommodation nl, no face palsy, no dysarthria Psychiatric: A+Ox3, euthymic affect Principal Diagnosis Possible pneumonia EBV infection Transaminitis Generalized weakness Discharge Exam Constitutional: WD/WN, vitals as above, NAD, sitting up in bed, pleasant, conversing easily Respiratory: normal respiratory effort, lungs clear to auscultation, no wheeze, rales, rhonchi. Normal insp/exp effort, no accessory muscle use Cardiovascular: RRR, no murmur, no edema Vessels: no JVD or carotid bruit Chest: normal inspection of chest Abdomen: normal bowel sounds, soft, nontender, no hepatosplenomegaly Musculoskeletal: no cyanosis or clubbing, extremities motor strength 5/5 Skin: no rashes, warm and dry normal turgor Neurologic: PERRL, EOMI, accommodation nl, no face palsy, no dysarthria CN's II- XI intact bilaterally and moves all extremities. Psychiatric: A+Ox3, euthymic affect Discharge Data Allergies Allergy/AdvReac Type Severity Reaction Status Date / Time ketorolac Allergy Intermediate Itching Verified 02/02/23 15:45 oxycodone Allergy Intermediate Hives Verified 02/02/23 15:45 piperacillin Allergy Intermediate Pruritus Verified 02/02/23 15:45 tazobactam Allergy Intermediate Pruritus Verified 02/02/23 15:45 vancomycin AdvReac Severe deathly ill Verified 02/02/23 15:45 Consultations 12/06/23 09:26 ED Decision to Admit Stat 12/06/23 11:39 Consult Gastroenterology Routine Ordered Studies 12/06/23 09:17 US RUQ [US liver] Routine 12/06/23 11:25 CT angio chest PE protocol Stat 12/06/23 11:59 MR MRCP Urgent 12/08/23 09:39 MRI Brain [MR brain MS wo/w con] Routine Hospital Course (1) Febrile illness: Possible pneumonia Patient presenting from home with reports of fever, generalized body aches, and weakness. She was found to have mild leukocytosis, slightly elevated LFTs. Infectious workup so far; Chest x-raymild left basilar opacity CTA chestno PE; dependent atelectasis bilaterally MRCPno acute finding Blood cultureno growth Lyme screen negative Respiratory viral panel negative Urine Legionella negative Anaplasma and Babesia smear negative Urinalysis negative for infection Anaplasma PCR negative Babesia PCR negative Hepatitis panel nonreactive. EBV serology positive with IgM, IgG and nucleocapsid. Possibly; EBV infection (fatigue, tiredness along with mild transaminitis ) s/p 7 day course of ceftriaxone doxycycline for possible pneumonia Will follow-up on Q fever workup, parvovirus - resulted, immunity. MRI brain with and without contrast done to rule out multiple sclerosis. Continue PT OT; patient wants to go to rehab Steroid for possible psoriatic arthritis flareup; started on 20 mg once a day for 3 days and 10 mg once a day for 3 days. Patient reports improvement in symptoms. 2 more days on dc. pt to c/w pt/ot on dc. (2) Transaminitis: T. bili 0.9, AST 104, ALT 102, alk phos 140 on admission RUQ US shows mild CBD dilation, possibly related to history of cholecystectomy MRCP did not show acute findings Improvement in transaminitis noted. Continue to monitor. (3) Hypoxia: Acute hypoxic respiratory failure Possible pneumonia on CXR Weaned off oxygen (4) DM II (diabetes mellitus, type II), controlled: Hgb A1c 6.1 09/2023 Currently managed on Ozempic NovoLog per protocol while hospitalized (5) Psoriatic arthritis: Recently treated for flare with prednisone taper (6) GERD (gastroesophageal reflux disease): Chronic, stable continue PPI (7) Depression: Chronic, stable Continue home meds (8) Hypothyroidism: Chronic, stable Continue levothyroxine DVT PROPHYLAXIS SQ Lovenox Please note the above document was generated using voice recognition software. It may contain grammatical, syntax or spelling errors. Any formal questions or concerns about the content, text or information contained within the body of this dictation should be directly addressed to the provider for clarification Plan Patient being discharged to SNF with following instruction at the point of discharge: Follow-up with your primary care physician within a week time and likely you will need labs CBC/CMP/magnesium/phosphorus. You completed course of antibiotic for possible pneumonia. For your generalized weakness likely secondary to EBV infection, continue with PT/OT. Take your medications as prescribed. Please make sure that you are able to get your medications today by calling your pharmacy before you leave the hospital so that your treatment continuity is not broken. [facility] Attestation I certify that this patient is under my care and that I, or a physicians assistant banquet manager working with me, had a face to-face encounter that meets the [facility] [id number] encounter requirements with this patient. The encounter with the patient was in whole, or in part, for the following medical condition, which is the primary reason for home health care (list medical condition): I certify that, based on my findings, the following services are medically necessary home health services: My clinical findings support the need for the above services because: Further, I certify that my clinical findings support that this patient is homebound (i.e. absences from home require considerable and taxing effort and are for medical reasons or judaism services or infrequently or of short duration when for other reasons) because: Certification for Home Health Services: Based on the above findings, I certify that this patient is confined to the home and needs intermittent correction care, physical therapy and/or speech therapy or continues to need occupational therapy. The patient is under my care, and I have initiated the establishment of the plan of care. This patient will be followed by a physician who will periodically review the plan of care. Total Time Total Time Spent Total Time Spent (In Minutes): 45 Discharge Plan Discharge Items Patient Disposition: Transfer [facility] Fac Reason For Visit: FELL FRI, ALL OVER PAIN, HERE YESTERDAY Discharge Diagnosis: Possible pneumonia EBV infection Transaminitis Generalized weakness Condition on Discharge: Fair Activity: As commented below Activity Comment: Continue with PT/OT. Non-emergency contact: Primary Care Provider Call non-emergency contact if: you have any medication questions, your symptoms worsen and your temperature is above 101.5 Follow-up/Referrals: Krystyna John MD [Primary Care Provider] - Diet: Carb Consistent or DM2 Addtl Attending Provider Instructions: Follow-up with your primary care physician within a week time and likely you will need labs CBC/CMP/magnesium/phosphorus. You completed course of antibiotic for possible pneumonia. For your generalized weakness likely secondary to EBV infection, continue with PT/OT. Take your medications as prescribed. Please make sure that you are able to get your medications today by calling your pharmacy before you leave the hospital so that your treatment continuity is not broken. Pending Studies at Discharge: Yes Stand-Alone Forms: My [facility] Skilled Items Patient informed of condition?: Yes DNR: No Discharge Level of Care: Skilled Communicable Disease: No Discharge Prognosis: Stable Lines: None Urinary Catheter: No Medications and DC Order Prescriptions: New ciprofloxacin-dexamethasone 0.3-0.1 % Drops,Suspension 2 drp OTR BID 5 Days Qty: 7.5 0RF prednisone 10 mg Tablet 10 mg PO DAILY 2 Days Qty: 2 0RF Continued sumatriptan succinate [Imitrex] 50 mg Tablet 50 mg PO DIRECTED PRN (Reason: Migraine Headache) Rx Instructions: TAKE ONE TABLET AT ONSET OF HEADACHE, MAY REPEAT DOSE AFTER 2 HOURS IF NEEDED. MAXIMUM OF 2 TABLETS/24 HOURS levothyroxine [Synthroid] 25 mcg Tablet 25 mcg PO DAILYBB Rx Instructions: TAKE THIS MEDICATION ONCE DAILY 30 MINUTES BEFORE BREAKFAST OR ANY OTHER MEDICATIONS pantoprazole [Protonix] 40 mg Tablet,Delayed Release (Dr/Ec) 40 mg PO BID ergocalciferol (vitamin D2) [Vitamin D2] 50,000 unit Capsule 50,000 units PO 2XWK Rx Instructions: TAKE THIS MEDICATION EVERY SUNDAY AND SUNDAY magnesium oxide 400 mg magnesium Tablet 400 mg PO QAM propranolol [Inderal LA] 60 mg Capsule,Extended Release 24 Hr 60 mg PO QAM cholecalciferol (vitamin D3) [Vitamin D3] 50 mcg (2,000 unit) Capsule 2,000 unit PO QAM divalproex [Depakote ER] 250 mg Tablet Extended Release 24 Hr 750 mg PO HS promethazine 25 mg tablet 25 mg PO TID PRN (Reason: Nausea And Vomiting) ferrous sulfate 325 mg (65 mg iron) Tablet 325 mg PO QAM trazodone 150 mg tablet 300 mg PO HS montelukast 10 mg tablet 10 mg PO QAM multivitamin Tablet 1 tab PO DAILY buspirone 15 mg tablet 7.5 mg PO BID duloxetine 60 mg capsule,delayed release(DR/EC) 60 mg PO DAILY Ajovy Syringe 225 mg/1.5 mL syringe 225 mg SUBCUT MONTHLY [id number] [Citracal-D3 Maximum Plus] 325 mg-12.5 mcg -2.75 mg Tablet 1 tab PO DAILY Ozempic 0.25 mg or 0.5 mg (2 mg/3 mL) pen injector 0.25 mg SUBCUT WK dicyclomine 10 mg capsule 10 mg PO DAILY Discharge Orders: Discharge Order (Routine); Ordered 12/13/23 Ordered By: Lorenzo Corrales Admission Data Admit Date/Time: 12/06/23 09:16 Attending Provider: Lorenzo Corrales Admit Provider: Jh Gonzalez Primary Care Provider: Krystyna John Other Providers: Jh Gonzalez; Nargis Elmore; [facility]; [facility]; Adarsh Conrad [facility]
[2023-12-13 23:02] LABS: Q Fever IgG, Phase I NEGATIVE; Q Fever Phase I IgM Antibody NEGATIVE; Q Fever Phase II IgG Antibody NEGATIVE; Q Fever Phase II IgM Antibody NEGATIVE
== END 2023-12-13 12:49 | DRG 865 ==
LOC: ED 05:51 → 3E 09:16 → SUATTDRO 09:16 → 3E 10:32

== ENCOUNTER 2023-12-25 14:43 | Inpatient (IN) ==
--- NOTE | 2023-12-25 15:05 | ED Triage Note ---
Date of Service December 25, 2023 Provider in Triage Author: Evelyn Alcazar History of Present Illness This patient was briefly evaluated while in triage. An abbreviated physical exam was performed. This patient is a 58-year-old Female who presents to the ED for evaluation of continued symptoms. She was recently hospitalized for EBV and was discharged to rehab. She states she hasn't been getting better. She states that all of her symptoms have returned but also states they never really got better. She reports throat/neck pain, pain in her abdomen, fevers and chills. Physical Exam GENERAL: Non-toxic and in no acute distress. HEENT: Pupils equal. No obvious scleral icterus. HEART: Regular rate and rhythm. LUNGS: Clear to auscultation. No accessory muscle use. ABDOMEN: Tenderness in the left upper quadrant. NEURO: Alert and oriented. No obvious neurological deficits on quick neuro exam. Initial orders for labs and / or imaging were placed and patient was placed in the waiting area until a bed is available. Please see further documentation for the full ED course.
[2023-12-25 16:16] LABS: Appearance Urine Clear (Clear); Bilirubin Urine Negative (Negative); Blood Urine Negative (Negative); Color Urine Yellow; Glucose Urine UA Negative (Negative); Ketones Urine Negative (Negative); Leukocyte Esterase Urine Negative (Negative); Nitrite Urine Negative (Negative); Protein Urine Negative (Negative); Specific Gravity Urine 1.008 (1.000-1.030); Urobilinogen Urine Negative (Negative); pH Urine 6.5 (4.5-7.5)
[2023-12-25 16:17] LABS: Basophils # (auto) 0.06 K/uL (0.00-0.20); Basophils % (auto) 0.7 %; Eosinophils # (auto) 0.07 K/uL (0.00-0.50); Eosinophils % (auto) 0.8 %; Hematocrit (blood only) 41.3 % (37.0-47.0); Hemoglobin 13.6 g/dl (12.0-16.0); Immature Granulocytes # (auto) 0.02 K/uL (0.01-0.20); Immature Granulocytes % (auto) 0.2 %; Lymphocytes # (auto) 2.38 K/uL (1.20-3.40); Lymphocytes % (auto) 26.2 %; Mean Corpuscular Hemoglobin 30.1 pg (25.0-34.0); Mean Corpuscular Hgb Conc 32.9 g/dL (32.0-36.0); Mean Corpuscular Volume 91.4 fL (80.0-100.0); Mean Platelet Volume 9.4 fL (9.4-12.4); Monocytes # (auto) 1.14 K/uL (0.11-0.59); Monocytes % (auto) 12.5 %; Neutrophils # (auto) 5.42 K/uL (1.40-6.50); Neutrophils % (auto) 59.6 %; Platelet Count 404 K/uL (130-400); RDW Coefficient of Variation 13.7 % (11.5-14.5); RDW Standard Deviation 45.9 fL (36.4-46.3); Red Blood Count 4.52 M/uL (4.20-5.40); White Blood Count 9.09 K/ul (4.8-10.8)
[2023-12-25 16:35] LABS: Albumin Globulin Ratio 1.5 (0.9-2); Albumin Level 4.4 gm/dl (3.4-5.0); BUN Creatinine Ratio 13.2 (10-20); Bilirubin,Total 0.4 mg/dl (0.2-1.0); Calcium 9.2 mg/dl (8.6-10.3); Creatinine Clr Calc Pharmacy 97.5 ml/min; Est GFR (African American) 110.2 ml/min; Est GFR (Non-African American) 95.1 ml/min; Globulin 2.9 gm/dl (2.5-4.0); Potassium 3.6 mmol/L (3.5-5.1); Total Protein 7.3 gm/dl (6.0-8.3)
[2023-12-25] MEDS: OPTIRAY 320 500ml IV ONE (17:11)
--- NOTE | 2023-12-25 18:14 | CT Scan Report ---
CT SCAN OF THE ABDOMEN AND PELVIS WITH IV CONTRAST CLINICAL HISTORY: Generalized abdominal pain. COMPARISON STUDY: Abdominal CT dated 02/02/2023. TECHNIQUE: Following the IV administration of 93 cc of Optiray 320, CT scan of the abdomen and pelvi s is performed from the lung bases to the proximal femora. Images are reviewed in the axial, sagittal , and coronal planes. IV contrast was administered without complication. A dose lowering technique wa s utilized adhering to the principles of ALARA. CT DOSE: 1498.32 mGy.cm FINDINGS: Lung bases: The heart is normal in size and without pericardial effusion. The lung bases are clear no ting mild dependent atelectasis. Liver: The contrast-enhanced liver is enlarged, measuring 20.3 cm in length. The liver demonstrates d iffusely diminished attenuation indicating steatosis. There is no intrahepatic biliary ductal dilatat ion. The hepatic veins and portal veins are patent. Gallbladder: Surgically absent noting clips in the gallbladder fossa. Spleen: Normal in size and attenuation. There are scattered calcified granulomas. Pancreas: Atrophic and grossly unremarkable. Adrenal glands: Unremarkable. Kidneys: The contrast enhanced kidneys are normal in size and without hydronephrosis. The kidneys enh ance symmetrically. Abdominal vasculature: The abdominal aorta is normal in course and caliber. Stomach and bowel: There is a small hiatal hernia. Postsurgical changes consistent with a Neel-en-Y g astric bypass procedure. There is no bowel obstruction. The appendix is not identified and reported surgically absent. Peritoneum: There is no intraperitoneal free air or abdominal ascites. There is a fat-containing umbi lical hernia. Lymphadenopathy: None. Pelvic viscera: The bladder is normal as visualized. The uterus is surgically absent. No adnexal lesi on is seen. Skeletal structures: The skeletal structures are osteopenic. There is mild to moderate lumbosacral sp ondylosis as well as mild scoliosis. No lytic or blastic lesions are seen. IMPRESSION: 1. No acute infectious or inflammatory findings are identified in the abdomen or pelvis. 2. Postsurgical change is consistent with a Neel-en-Y gastric bypass procedure. There is no bowel obs truction. 3. The liver is enlarged and mildly steatotic. 4. Additional findings as above. ACT 112: Negative or not required by law. Electronically signed by: Zander Humphrey M.D. 12/25/2023 6:12 PM
[2023-12-25] MEDS: SODIUM CHLORIDE 0.9% 1,000 ML IV SCH (19:20)
[2023-12-25] MEDS: PROMETHAZINE 12.5 MG/50.5 ML BAG IV STA (19:20)
--- NOTE | 2023-12-25 19:36 | Emergency Department Note ---
Impression & Plan Abdominal pain, Acute sore throat, Fatigue ED Provider Note ED Provider Note NAME: VENTURA BRITTON AGE:58 SEX: Female : 1965 ARRIVES VIA: Private vehicle INFORMANT: Patient ED PROVIDER(s): Lety Jaramillo DO CHIEF COMPLAINT: Worsening fatigue, abdominal pain, sore throat HPI: This is a 58-year-old female who presents emergency department due to worsening symptoms of fatigue, following recent hospital admission and rehab admission due to acute EBV infection. Patient states she felt well when she was discharged from rehab however since arriving home she feels she is getting worse again and now has no left-sided abdominal pain as well as increased right-sided sore throat and right neck pain. She states she is continued to have fevers and chills as high as 101 F. She feels her fatigue and weakness are also worse. She denies trouble breathing or swallowing. PAST MEDICAL HISTORY:See Below PAST SURGICAL HISTORY:See Below FAMILY HISTORY:See Below SOCIAL HISTORY:See Below HOME MEDICATIONS:See Below ALLERGIES:See Below VITALS:See Below PHYSICAL EXAMINATION: GENERAL: alert, well appearing, well nourished, no distress, non-toxic EYE EXAM: normal conjunctiva, PERRL and EOM's grossly intact OROPHARYNX: no exudate, no erythema, lips, buccal mucosa, and tongue normal and mucous membranes are moist NECK: supple, no nuchal rigidity, no adenopathy, non-tender LUNGS: Clear to auscultation. Normal chest wall mechanics, no w/r/r HEART: no murmurs, S1 normal and S2 normal ABDOMEN: abdomen soft, non-tender, normo-active bowel sounds, no masses, no rebound or guarding. BACK: Back is symmetrical on inspection and there is no deformity, no midline tenderness, no CVA tenderness. SKIN: no rashes, petechiae, orbruising UPPER EXTREMITIES: upper extremities are grossly normal. FROM, nml pulses b/l. LOWER EXTREMITIES: No pitting edema. FROM, nml pulses b/l. NEURO EXAM: Normal sensorium, cranial nerves II-XII grossly intact, normal speech, no facial droop,nogross weakness of arms, no gross weakness of legs. Gross sensation intact. No ataxia. Vital Signs: reviewed and remarkable Differential Diagnosis: dehydration, stroke, anemia, hypoglycemia, hyponatremia, hypernatremia, urinary tract infection, pneumonia, bronchitis, sepsis, gastroenteritis, additional abdominal pathology, metabolic abnormalities, as well as others were considered MEDICAL DECISION MAKING: This is a 58 yo female who presents to the ER with worsening fatigue, weakness, recurrent fevers, abdominal pain and sore throat. Patient with recent admission and found to have EBV. She was afebrile and VS stable. Labs drawn and sent, IV established, and patient placed on telemetry. Nasal swab obtained for biofire. Labs and swab reassuring. Case discussed with hospitalist given worsening symptoms. No obvious symptoms to suggest GBS however given weakness patient may benefit for neurology evaluation. No evidence of acute infection. Patient underwent extensive labs and imaging during recent admission. Decision of additional imaging deferred to hospitalist team. Consultation(s): 235: Discussed with Dr. Muñoz, [facility] hospitalist, for additional evaluation and mgmt. ER Treatment Provided: See below Diagnostics Interpreted By Me: -Cardiac Monitoring: An order was placed for continuous cardiac monitoring. The monitor shows a rate of 70 with normal sinus rhythm. -Laboratory studies: As stated above and show below. Triage Nursing Note Reviewed Prior/Outside Records Reviewed - recent DC summary reviewed Past Med/Surg History Medical History DM II (diabetes mellitus, type II), controlled History of gastric ulcer Hypothyroidism Vertigo Clostridium difficile colitis Psoriatic arthritis History of DVT (deep vein thrombosis) History of pulmonary embolism "completed 6 months Coumadin therapy" On 06/27/16 17:03 Nuha Zarate wrote On 03/23/16 16:22 Dottie Montilla wrote "1999 per patient; s/p knee replacement" MINI (iron deficiency anemia) Sleep apnea Depression GERD (gastroesophageal reflux disease) Surgical History History of cholecystectomy History of appendectomy S/P hysterectomy History of carpal tunnel surgery H/O wisdom tooth extraction Status post total knee replacement Status post gastric bypass for obesity Status post cholecystectomy Status post appendectomy Family History Mother Rheumatoid arthritis Father Cancer blood cancer Denies family history of Hypertension Social History Smoking Status: Never smoker Second Hand Exposure: No; Do You Dip or Chew Tobacco: No; Hx Alcohol Use: No Hx Substance Use: No Preferred Language: Indonesian Communication Ability: Effective Tack Cleaner Required: No Beliefs That Will Affect Care: None marital status: Current Living Situation: Spouse and Family Current Living Situation Comment: and daughter Feels Safe at Home: Yes Safety Concerns: Feels Safe At This Time Assistive Devices: Walker Allergies Allergies Allergy/AdvReac Type Severity Reaction Status Date / Time ketorolac Allergy Intermediate Itching Verified 12/25/23 19:57 oxycodone Allergy Intermediate Hives Verified 12/25/23 19:57 piperacillin Allergy Intermediate Pruritus Verified 12/25/23 19:57 tazobactam Allergy Intermediate Pruritus Verified 12/25/23 19:57 vancomycin AdvReac Severe deathly ill Verified 12/25/23 19:57 Home Meds Home Medications Medication Instructions Recorded Confirmed ergocalciferol (vitamin D2) 1,250 50,000 units PO 2XWK 07/17/18 12/25/23 mcg (50,000 unit) capsule (Vitamin D2) levothyroxine 25 mcg tablet 25 mcg PO DAILYBB 07/17/18 12/25/23 (Synthroid) magnesium oxide 400 mg PO QAM 07/17/18 12/25/23 pantoprazole 40 mg tablet,delayed 40 mg PO BID 07/17/18 12/25/23 release (Protonix) sumatriptan succinate 50 mg tablet 50 mg PO DIRECTED PRN Migraine 07/17/18 12/25/23 (Imitrex) Headache divalproex 250 mg tablet,extended 750 mg PO HS 11/06/19 12/25/23 release 24 hr (Depakote ER) cholecalciferol (vitamin D3) 50 2,000 unit PO QAM 03/31/20 12/25/23 mcg (2,000 unit) capsule (Vitamin D3) propranolol 60 mg capsule,24 60 mg PO QAM 03/31/20 12/25/23 hr,extended release (Inderal LA) promethazine 25 mg tablet 25 mg PO TID PRN Nausea And 07/06/20 12/25/23 Vomiting trazodone 150 mg tablet 300 mg PO HS 01/02/21 12/25/23 ferrous sulfate 325 mg (65 mg 325 mg PO QAM 01/24/22 12/25/23 iron) tablet montelukast 10 mg tablet 10 mg PO QAM 02/02/23 12/25/23 buspirone 15 mg tablet 7.5 mg PO BID 12/06/23 12/25/23 calcium 325 mg-vit D3 12.5 1 tab PO DAILY 12/06/23 12/25/23 mcg-zinc 2.75 al-bcmeve-faklttslm tablet (Citracal-D3 Maximum Plus) dicyclomine 10 mg capsule 10 mg PO DAILY 12/06/23 12/25/23 duloxetine 60 mg capsule,delayed 60 mg PO DAILY 12/06/23 12/25/23 release fremanezumab-vfrm 225 mg/1.5 mL 225 mg subcut MONTHLY 12/06/23 12/25/23 subcutaneous syringe (Ajovy Syringe) multivitamin 1 tab PO DAILY 12/06/23 12/25/23 semaglutide 0.25 mg or 0.5 mg (2 0.25 mg subcut WK 12/06/23 12/25/23 mg/3 mL) subcutaneous pen injector (Ozempic) Results & Data (ED) Vital Signs Vital Signs - 24 hr 12/25/23 15:02 12/25/23 17:50 12/25/23 19:26 Temperature 37.0 C 36.5 C Temperature Source Temporal Artery Scan Oral Pulse Rate 102 H 75 Pulse Rate [Left Finger] 77 Pulse Rate from SpO2 Sensor Respiratory Rate 16 18 Respiratory Effort / Characteristics Non-Labored Spontaneous Non-Labored Respiratory Depth Normal Normal Blood Pressure 164/87 H Blood Pressure [Left Arm] 141/93 H Blood Pressure Mean 112 Blood Pressure Mean [Left Arm] 109 Pulse Oximetry 95 96 Oxygen Delivery Method Room Air Room Air Oxygen Flow Rate Sepsis Recent Fever Within 48 Hours No Sepsis New/Unexplained Change in Mental Status No Sepsis Action Taken by Nursing No Action Required 12/25/23 19:30 12/25/23 20:00 12/25/23 20:20 Temperature Temperature Source Pulse Rate 76 77 81 Pulse Rate [Left Finger] Pulse Rate from SpO2 Sensor 75 74 81 Respiratory Rate 19 20 20 Respiratory Effort / Characteristics Respiratory Depth Blood Pressure 137/94 131/84 Blood Pressure [Left Arm] Blood Pressure Mean 108 99 Blood Pressure Mean [Left Arm] Pulse Oximetry 93 92 89 L Oxygen Delivery Method Room Air Room Air Room Air Oxygen Flow Rate Sepsis Recent Fever Within 48 Hours Sepsis New/Unexplained Change in Mental Status Sepsis Action Taken by Nursing 12/25/23 20:30 12/25/23 21:00 12/25/23 22:39 Temperature Temperature Source Pulse Rate 77 80 Pulse Rate [Left Finger] Pulse Rate from SpO2 Sensor 77 81 Respiratory Rate 20 24 Respiratory Effort / Characteristics Respiratory Depth Blood Pressure 139/81 120/80 Blood Pressure [Left Arm] Blood Pressure Mean 100 93 Blood Pressure Mean [Left Arm] Pulse Oximetry 95 94 92 Oxygen Delivery Method Nasal Cannula Nasal Cannula Room Air Oxygen Flow Rate 2 2 Sepsis Recent Fever Within 48 Hours Sepsis New/Unexplained Change in Mental Status Sepsis Action Taken by Nursing 12/25/23 23:20 Temperature Temperature Source Pulse Rate 86 Pulse Rate [Left Finger] Pulse Rate from SpO2 Sensor Respiratory Rate Respiratory Effort / Characteristics Respiratory Depth Blood Pressure Blood Pressure [Left Arm] Blood Pressure Mean Blood Pressure Mean [Left Arm] Pulse Oximetry Oxygen Delivery Method Oxygen Flow Rate Sepsis Recent Fever Within 48 Hours Sepsis New/Unexplained Change in Mental Status Sepsis Action Taken by Nursing Laboratory Data 12/27/23 06:04 12/27/23 06:04 Lab Results 12/25/23 12/25/23 12/25/23 Range/Units 15:52 20:30 Unknown WBC 9.09 (4.8-10.8) K/ul RBC 4.52 (4.20-5.40) M/uL Hgb 13.6 (12.0-16.0) g/dl Hct 41.3 (37.0-47.0) % MCV 91.4 (80.0-100.0) fL MCH 30.1 (25.0-34.0) pg MCHC 32.9 (32.0-36.0) g/dL RDW Std Deviation 45.9 (36.4-46.3) fL RDW Coeff of Halley 13.7 (11.5-14.5) % Plt Count 404 H (130-400) K/uL MPV 9.4 (9.4-12.4) fL Immature Gran % (Auto) 0.2 % Neut % (Auto) 59.6 % Lymph % (Auto) 26.2 % [place] % (Auto) 12.5 % Eos % (Auto) 0.8 % Baso % (Auto) 0.7 % Neut # (Auto) 5.42 (1.40-6.50) K/uL Lymph # (Auto) 2.38 (1.20-3.40) K/uL [place] # (Auto) 1.14 H (0.11-0.59) K/uL Eos # (Auto) 0.07 (0.00-0.50) K/uL Baso # (Auto) 0.06 (0.00-0.20) K/uL Immature Gran # (Auto) 0.02 (0.01-0.20) K/uL Sodium 137 (136-145) mmol/L Potassium 3.6 (3.5-5.1) mmol/L Chloride 102 (98-107) mmol/L Carbon Dioxide 26 (21-32) mmol/L Anion Gap 9 (3-11) BUN 9 (6-23) mg/dl Creatinine 0.68 (0.6-1.2) mg/dl Est Cr Clr Drug Dosing 97.5 ml/min Est GFR ( Amer) 110.2 ml/min Est GFR (Non-Af Amer) 95.1 ml/min BUN/Creatinine Ratio 13.2 (10-20) Glucose 88 (70-99(Fasting)) mg/dl Calcium 9.2 (8.6-10.3) mg/dl Magnesium 2.2 (1.7-2.4) mg/dl Total Bilirubin 0.4 (0.2-1.0) mg/dl AST 23 (13-39) U/L ALT 21 (7-52) U/L Alkaline Phosphatase 93 (34-104) U/L Total Creatine Kinase 44 (26-192) U/L Troponin I High Sens 3.3 (0-14) pg/ml Total Protein 7.3 (6.0-8.3) gm/dl Albumin 4.4 (3.4-5.0) gm/dl Globulin 2.9 (2.5-4.0) gm/dl Albumin/Globulin Ratio 1.5 (0.9-2) Lipase 6 L (11-82) U/L TSH 1.765 (0.300-4.500) uIu/ml Urine Color Yellow Urine Appearance Clear (Clear) Urine pH 6.5 (4.5-7.5) Ur Specific [place] 1.008 (1.000-1.030) Urine Protein Negative (Negative) Urine Glucose (UA) Negative (Negative) Urine Ketones Negative (Negative) Urine Blood Negative (Negative) Urine Nitrite Negative (Negative) Urine Bilirubin Negative (Negative) Urine Urobilinogen Negative (Negative) Ur Leukocyte Esterase Negative (Negative) Adenovirus (PCR) Not Detected (NotDetected) B. pertussis DNA (PCR) Not Detected (NotDetected) B.parapertussis DNA PCR Not Detected (NotDetected) C. pneumoniae DNA (PCR) Not Detected (NotDetected) Coronavirus OC43 (PCR) Not Detected (NotDetected) Coronavirus HKU1 (PCR) Not Detected (NotDetected) Coronavirus 229E (PCR) Not Detected (NotDetected) SARS-CoV-2 (PCR) Not Detected (NotDetected) Coronavirus NL63 (PCR) Not Detected (NotDetected) Human Metapneumovir PCR Not Detected (NotDetected) Influenza Type A (PCR) Not Detected (NotDetected) Influenza Type B (PCR) Not Detected (NotDetected) M. pneumoniae (PCR) Not Detected (NotDetected) Parainfluenza 1 (PCR) Not Detected (NotDetected) Parainfluenza 2 (PCR) Not Detected (NotDetected) Parainfluenza 3 (PCR) Not Detected (NotDetected) Parainfluenza 4 (PCR) Not Detected (NotDetected) RSV (PCR) Not Detected (NotDetected) Entero/Rhino (PCR) Not Detected (NotDetected) Administered Medications Acetaminophen (Acetaminophen 325 Mg Tab) 650 mg PO Q4H PRN PRN Reason: pain/fever Stop: 01/25/24 05:09 Last Admin: 12/26/23 16:31 Dose: 650 mg Documented By: CONSTANTINO Buspirone HCl (Buspirone 7.5 Mg Tab) 7.5 mg PO BID DRE Stop: 01/25/24 08:59 Last Admin: 12/27/23 08:24 Dose: 7.5 mg Documented By: Admin: 12/26/23 21:50 Dose: 7.5 mg Documented By: Admin: 12/26/23 09:49 Dose: 7.5 mg Documented By: SHA Calcium Citrate (Calcium Citrate 950 Mg Tab) 950 mg PO DAILY DRE Stop: 01/25/24 08:59 Last Admin: 12/27/23 08:23 Dose: 950 mg Documented By: Admin: 12/26/23 09:49 Dose: 950 mg Documented By: SHA Dicyclomine HCl (Dicyclomine Hcl 10 Mg Cap) 10 mg PO DAILY DRE Stop: 01/25/24 08:59 Last Admin: 12/27/23 08:23 Dose: 10 mg Documented By: Admin: 12/26/23 09:49 Dose: 10 mg Documented By: SHA Divalproex Sodium (Divalproex Extended Release 250 Mg Tabcr) 750 mg PO HS DRE Stop: 01/25/24 20:59 Last Admin: 12/26/23 21:50 Dose: 750 mg Documented By: KENDRA Duloxetine HCl (Duloxetine Hcl 60 Mg Cap) 60 mg PO DAILY DRE Stop: 01/25/24 08:59 Last Admin: 12/27/23 08:23 Dose: 60 mg Documented By: Admin: 12/26/23 09:49 Dose: 60 mg Documented By: SHA Enoxaparin Sodium (Enoxaparin Inj 40 Mg/0.4 Ml Syr) 40 mg SQ Q24H DRE Stop: 01/25/24 05:59 Last Admin: 12/27/23 05:48 Dose: 40 mg Documented By: Admin: 12/26/23 05:52 Dose: 40 mg Documented By: KINSEY Ferrous Sulfate (Ferrous Sulfate 325 Mg Tab) 325 mg PO QAM DRE Stop: 01/25/24 08:59 Last Admin: 12/27/23 08:23 Dose: 325 mg Documented By: Admin: 12/26/23 09:49 Dose: 325 mg Documented By: SHA Insulin Aspart (Insulin Aspart Per Unit Charge) 0 units SC ACHS DRE Stop: 01/25/24 07:29 Last Admin: 12/27/23 08:24 Dose: Not Given Documented By: Admin: 12/26/23 20:50 Dose: Not Given Documented By: Admin: 12/26/23 16:35 Dose: Not Given Documented By: CONSTANTINO Co-signed By: MARCELO Admin: 12/26/23 12:31 Dose: Not Given Documented By: Admin: 12/26/23 09:49 Dose: Not Given Documented By: SHA Levothyroxine Sodium (Levothyroxine Sodium 25 Mcg Tablet) 25 mcg PO DAILYBB [facility] Stop: 01/25/24 06:29 Last Admin: 12/27/23 05:47 Dose: 25 mcg Documented By: Admin: 12/26/23 05:52 Dose: 25 mcg Documented By: KINSEY Magnesium Oxide (Magnesium Oxide 400 Mg Tab) [facility] [place] Stop: 01/25/24 08:59 Last Admin: 12/27/23 08:24 Dose: 400 mg Documented By: Admin: 12/26/23 09:48 Dose: 400 mg Documented By: SHA Montelukast Sodium (Montelukast Sodium 10 Mg Tablet) [facility] [place] Stop: 01/25/24 08:59 Last Admin: 12/27/23 08:24 Dose: 10 mg Documented By: Admin: 12/26/23 09:49 Dose: 10 mg Documented By: SHA Multivitamins (Multivitamin Tab) 1 tab PO DAILY [facility] Stop: 01/25/24 08:59 Last Admin: 12/27/23 08:24 Dose: 1 tab Documented By: Admin: 12/26/23 09:49 Dose: 1 tab Documented By: SHA Ondansetron HCl (Ondansetron Inj 2 Mg/Ml 2 Ml Vial) 4 mg IV Q6H PRN PRN Reason: Nausea Stop: 01/25/24 05:09 Last Admin: 12/26/23 16:31 Dose: 4 mg Documented By: Admin: 12/26/23 05:25 Dose: 4 mg Documented By: KINSEY Pantoprazole Sodium (Pantoprazole 40 Mg Tab) 40 mg PO BID [facility] Stop: 01/25/24 08:59 Last Admin: 12/27/23 08:24 Dose: 40 mg Documented By: Admin: 12/26/23 21:49 Dose: 40 mg Documented By: Admin: 12/26/23 09:49 Dose: 40 mg Documented By: SHA Promethazine HCl (Promethazine Hcl 25 Mg Tab) 25 mg PO TID PRN PRN Reason: Nausea And Vomiting Stop: 01/25/24 07:57 Last Admin: 12/26/23 22:50 Dose: 25 mg Documented By: Admin: 12/26/23 10:13 Dose: 25 mg Documented By: SHA Propranolol HCl (Propranolol Hcl 60 Mg [place]) 60 mg PO QAM [facility] Stop: 01/25/24 08:59 Last Admin: 12/27/23 08:24 Dose: 60 mg Documented By: Admin: 12/26/23 09:49 Dose: 60 mg Documented By: SHA Sumatriptan Succinate (Sumatriptan Succinate 50 Mg Tab) 50 mg PO UD PRN PRN Reason: Migraine Headache Stop: 01/25/24 07:57 Last Admin: 12/26/23 22:46 Dose: 50 mg Documented By: Admin: 12/26/23 17:29 Dose: 50 mg Documented By: Admin: 12/26/23 10:13 Dose: 50 mg Documented By: SHA Trazodone HCl (Trazodone Hcl 100 Mg Tab) 300 mg PO [facility] Stop: 01/25/24 20:59 Last Admin: 12/26/23 23:35 Dose: 300 mg Documented By: KINSEY Vitamin D (Cholecalciferol 25 Mcg (1000 Units) Tab) [facility] [place] Stop: 01/25/24 08:59 Last Admin: 12/27/23 08:24 Dose: 50 mcg Documented By: Admin: 12/26/23 09:49 Dose: 50 mcg Documented By: SHA Discontinued Medications Sodium Chloride (Nss) 1,000 mls @ 125 mls/hr IV .Q8H [facility] Stop: 01/24/24 18:59 Last Infusion: 12/26/23 05:17 Dose: Infused Documented By: Admin: 12/26/23 03:05 Dose: 125 mls/hr Documented By: Infusion: 12/26/23 03:04 Dose: Infused Documented By: Admin: 12/25/23 19:20 Dose: 125 mls/hr Documented By: BALJIT Promethazine HCl (Phenergan) 12.5 mg in 50.5 mls @ 202 mls/hr IV NOW STA Stop: 12/25/23 19:08 Last Infusion: 12/25/23 19:40 Dose: Infused Documented By: Admin: 12/25/23 19:20 Dose: 202 mls/hr Documented By: BALJIT Acetaminophen (Ofirmev) 1,000 mg in 100 mls @ 400 mls/hr IV NOW STA Stop: 12/26/23 01:31 Last Infusion: 12/26/23 01:51 Dose: Infused Documented By: Admin: 12/26/23 01:26 Dose: 400 mls/hr Documented By: ISA Sodium Chloride (Nss) 1,000 mls @ 80 mls/hr IV .[id number] DRE Stop: 12/26/23 17:39 Last Infusion: 12/26/23 16:25 Dose: Infused Documented By: Admin: 12/26/23 05:17 Dose: 80 mls/hr Documented By: KINSEY Ioversol (Optiray 320 500ml) 93 ml IV ONCE ONE Stop: 12/25/23 17:11 Last Admin: 12/25/23 17:11 Dose: 93 ml Documented By: KYE Labetalol HCl (Labetalol Hcl Iv 5 Mg/Ml 20ml) 5 mg IV NOW STA Stop: 12/26/23 02:07 Last Admin: 12/26/23 03:07 Dose: Not Given Documented By: ISA Imaging Data Radiologist's Impression: Abdomen/Pelvis CT 12/25/23 15:05 CT SCAN OF THE ABDOMEN AND PELVIS WITH IV CONTRAST CLINICAL HISTORY: Generalized abdominal pain. COMPARISON STUDY: Abdominal CT dated 02/02/2023. TECHNIQUE: Following the IV administration of 93 cc of Optiray 320, CT scan of the abdomen and pelvis is performed from the lung bases to the proximal femora. Images are reviewed in the axial, sagittal, and coronal planes. IV contrast was administered without complication. A dose lowering technique was utilized adhering to the principles of ALARA. CT DOSE: 1498.32 mGy.cm FINDINGS: Lung bases: The heart is normal in size and without pericardial effusion. The lung bases are clear noting mild dependent atelectasis. Liver: The contrast-enhanced liver is enlarged, measuring 20.3 cm in length. The liver demonstrates diffusely diminished attenuation indicating steatosis. There is no intrahepatic biliary ductal dilatation. The hepatic veins and portal veins are patent. Gallbladder: Surgically absent noting clips in the gallbladder fossa. Spleen: Normal in size and attenuation. There are scattered calcified granulomas. Pancreas: Atrophic and grossly unremarkable. Adrenal glands: Unremarkable. Kidneys: The contrast enhanced kidneys are normal in size and without hydronephrosis. The kidneys enhance symmetrically. Abdominal vasculature: The abdominal aorta is normal in course and caliber. Stomach and bowel: There is a small hiatal hernia. Postsurgical changes consistent with a Neel-en-Y gastric bypass procedure. There is no bowel obstruction. The appendix is not identified and reported surgically absent. Peritoneum: There is no intraperitoneal free air or abdominal ascites. There is a fat-containing umbilical hernia. Lymphadenopathy: None. Pelvic viscera: The bladder is normal as visualized. The uterus is surgically absent. No adnexal lesion is seen. Skeletal structures: The skeletal structures are osteopenic. There is mild to moderate lumbosacral spondylosis as well as mild scoliosis. No lytic or blastic lesions are seen. IMPRESSION: 1. No acute infectious or inflammatory findings are identified in the abdomen or pelvis. 2. Postsurgical change is consistent with a Neel-en-Y gastric bypass procedure. There is no bowel obstruction. 3. The liver is enlarged and mildly steatotic. 4. Additional findings as above. ACT 112: Negative or not required by law. Electronically signed by: Zander Humphrey M.D. 12/25/2023 6:12 PM Discharge Plan Visit Data Chief Complaint: Referred by Doctor Stated Complaint: REF BY DOC, BLOOD COUNT IS OFF ED Provider: Lety Jaramillo Discharge Problem: Abdominal pain, Acute sore throat, Fatigue Patient Disposition: Admitted As Inpatient Discharge Instructions Interventions: ED Discharge Assessment Last Done: 12/26/23 04:32
[2023-12-25 20:05] LABS: Magnesium 2.2 mg/dl (1.7-2.4)
[2023-12-25 20:11] LABS: Troponin I High Sensitivity 3.3 pg/ml (0-14)
[2023-12-25 20:21] LABS: Thyroid Stimulating Hormone 1.765 uIu/ml (0.300-4.500)
--- OUTSIDE RECORDS SUMMARY | 2023-12-25 22:13 | External Medical Summary | Summary of Care ---
Author Name Unknown Organization [facility] Address [address] [place] [address] Phone [phone] Care Team Providers Care Financial Aid Coordinator Name Role Phone Krystyna John MD Primary Care Provider + Reason for Visit * Reason Onset Date Comments Advice 12/25/2023 Encounter Details Date Type Department Care Team (Late st Contact Info) Description 12/25/2023 Telephone General Internal Medicine [facility] [address] [facility] [place] [place] [address] Krystyna John MD 200 [facility] [place] [address] Advice Allergies Active Allergy Reactions Criticality Noted Date Comments Oxycodone High 07/06/2020 Other reaction(s): Hives Oxycodone-Acetaminophen Itching High 06/02/2011 Piperacillin Sod-Tazobactam So Hives 01/14/2018 Tazobactam High 07/06/2020 Other reaction(s): Pruritus Ketorolac Tromethamine Hives High 01/14/2018 Vancomycin High 06/29/2008 IV Vancomycin documented as of this encounter (statuses as of 12/25/2023) Medications Medication Sig Dispensed Refills Start Date End Date Status Acetaminophen 325 MG Oral Tablet Take 2 Tablets by mouth every 4 hours as needed for Fever >38C(100.5F), Pain, Mild, Pain, Moderate or Pain, Severe. 100 Tab 1 03/01/2021 Active LORazepam 0.5 MG Oral Tablet (Ativan)Indication s:Panic attack Take 1 Tab by mouth daily as needed for Anxiety. can try second dose in an hour if needed 20 Tab 0 03/01/2021 Active Divalproex Sodium 250 MG Oral Tablet Delayed Release (Depakote DR) Take 3 Tabs by mouth at bedtime. 300 Tab 3 03/07/2021 Active SUMAtriptan Succinate 50 MG Oral Tablet (Imitrex)Indicatio ns:Migraine with aura and without status migrainosus, not intractable TAKE 1 TABLET AT ONSET OF HEADACHE MAY REPEAT IN 2 HOURS MAX OF 2 TABLETS IN 24 HOURS This is a 3 month supply 27 Tab 3 03/07/2021 Active Spacer/Aero-Holdin g Chambers DeviceIndications: Acute bronchitis, antibiotics not indicated Use with inhaler. 1 Each 0 01/16/2022 Active Compressor Nebulizer Inhale via nebulizer . Use as directed. 1 Each 1 01/26/2022 Active Ipratropium-Albute rol 0.5-2.5 (3) MG/3ML Inhalation Solution (Duoneb) Inhale via nebulizer 3 mL in the morning AND 3 mL at noon AND 3 mL in the evening AND 3 mL before bedtime. 90 mL 3 01/26/2022 Active Additional Information Patient taking differently:3 mL Nebulizer QID(AM/NOON/PM/HS),As needed, Reported on 04/12/2023 Ferrous Sulfate 325 (65 Fe) MG Oral Tablet (Feosol) Take by mouth 1 Tablet in the morning. 90 Tablet 0 03/06/2022 Active Vitamin D (Ergocalciferol) 1.25 MG (42954 UT) Oral Capsule (Drisdol) TAKE ONE CAPSULE BY MOUTH TWICE WEEKLY 50 Capsule 1 11/21/2022 01/31/2024 Active busPIRone HCl 15 MG Oral Tablet (Buspar) Take 0.5 Tablets by mouth in the morning and 0.5 Tablets before bedtime. 45 Tablet 3 07/03/2023 Active Albuterol Sulfate HFA 108 (90 Base) MCG/ACT Inhalation Aerosol Solution Inhale 2 Puffs by mouth every 4 hours as needed for Cough. Through spacer 54 g 1 08/03/2023 Active Levothyroxine Sodium 25 MCG Oral Tablet (Levoxyl)Indicatio ns:Hypothyroidism, unspecified type TAKE 1 TAB BY MOUTH DAILY. (AT LEAST 30 MIN PRIOR TO BREAKFAST OR OTHER MEDS) 100 Tablet 1 10/04/2023 Active Magnesium Oxide -Mg Supplement 400 MG Oral Capsule Take 1 capsule (400 mg) by mouth in the morning. 100 Capsule 3 10/04/2023 Active DULoxetine HCl 60 MG Oral Capsule Delayed Release Particles (Cymbalta)Indicati ons:Current moderate episode of major depressive disorder, unspecified whether recurrent (HCC) Take 1 Capsule by mouth in the morning. Do not cut, crush or chew. 90 Capsule 3 10/04/2023 Active Pantoprazole Sodium 40 MG Oral Tablet Delayed Release (Protonix) Take 1 Tablet by mouth 2 times a day. 180 Tablet 3 11/08/2023 Active Promethazine HCl 25 MG Oral Tablet (Phenergan)Indicat ions:Nausea TAKE 1 TABLET BY MOUTH TWICE DAILY NEEDED for nausea 180 Tablet 0 11/08/2023 Active Dicyclomine HCl 10 MG Oral Capsule (Bentyl) Take 1 Capsule by mouth daily. 100 Capsule 3 11/08/2023 Active Additional Information Patient taking differently:10 mg OralTID 06;12;18, Reported on 11/20/2023 Propranolol HCl ER 60 MG Oral Capsule Extended Release 24 Hour (Inderal LA) Take 1 Capsule by mouth daily. 100 Capsule 3 11/08/2023 Active traZODone HCl 150 MG Oral Tablet (Desyrel) Take 2 tablets by mouth at bedtime. May take additional 1/2 tablet if needed. 225 Tablet 3 11/13/2023 Active predniSONE 5 MG Oral Tablet (Deltasone)Indicat ions:Psoriatic arthropathy (HCC) Take two tablets for 1 week then reduce to one tablet daily for two weeks 30 Tablet 1 11/13/2023 Active JAMF Software Ultra 2 w/Device Kit Use as directed to check blood sugar. 1 Kit 0 11/13/2023 Active JAM[employer] Software Ultra In Vitro Strip (Glucose Blood) Use as directed to check blood sugar. 100 Strip 3 11/13/2023 Active JAM[employer] Software Delica Plus [id number] Use as directed to test blood sugar. 100 Each 3 11/13/2023 Active Vitamin D3 50 MCG (1999 UT) Oral Capsule (Cholecalciferol)I ndications:Low vitamin D level Take 1 Capsule by mouth in the morning. 100 Capsule 3 11/15/2023 Active Fremanezumab-vfrm 225 MG/1.5ML Subcutaneous Solution Prefilled Syringe (TapCrowd) Inject 1.5 mL under the skin every month. 1.5 mL 3 11/15/2023 Active Additional Information Patient not taking.Reported on 11/20/2023 Multivitamin Adult Oral Tablet Take by mouth. 0 Active Citracal Maximum Plus Oral Tablet Take by mouth. 0 Acti ve Ozempic (0.25 or 0.5 MG/DOSE) 2 MG/3ML Solution Pen-injector (Semaglutide(0.25 or 0.5MG/DOS))Indicat ions:Type 2 diabetes mellitus with hemoglobin A1c goal of less than 7.0% ([facility]) Inject 0.25mg under the skin once weekly for 4 weeks then increase to 0.5mg under the skin once weekly thereafter 9 mL 0 11/20/2023 Active Hospital, Clinic, or Other Facility Administered Medication Ordered Dose Route Frequency Start Date End Date Status vitamin b-12 (Cyanocobalamin) inj 1,000 mcgIndications:Intestinal postoperative nonabsorption,B12 deficiency 1000 mcg IM [id number] 11/20/2023 05/06/2024 Active documented as of this encounter (statuses as of 12/25/2023) Active Problems Problem Noted Date Diagnosed Date Anemia due to chronic blood loss 05/03/2023 Migraine without status migrainosus, not intract able 02/13/2023 Sore throat (viral) 11/04/2022 Globus sensation 11/04/2022 Mild intermittent asthma with exacerbation 11/04 Morbid (severe) obesity due to excess calories 0 01/26/2022 Panic attack 01/26/2022 Post-operative state 02/28/2021 S/P total knee arthroplasty, left 02/28/2021 Acquired hypothyroidism 10/23/2019 Encounter for long-term (current) use of medicat ions 10/13/2019 Moderate episode of recurrent major depressive d isorder 02/19/2018 Migraine with aura and witho ut status migrainosus, not intractable 05/24/2017 History of Clostridium difficile infection 08/04 History of pulmonary embolism 04/20/2016 Iron deficiency anemia secon heriberto to inadequate dietary iron intake 12/01/2015 H/O gastric bypass 12/01/2015 Generalized edema 12/07/2009 Type 2 diabetes mellitus wit h hemoglobin A1c goal of less than 7.0% 07/08/2009 Overview: Per Diabetes Taxonomy. ICD-10 update of inactive term Postgastric surgery syndrome 04/01/2009 Overview: ICD-10 update of inactive term Intestinal postoperative nonabsorption 9 Gastroesophageal reflux disease without esophagi tis 10/22/2008 Psoriatic arthropathy 05/20/2008 DOMINGUEZ RESEARCH OTHER*[id number] 03/23/2008 ADVANCE DIRECTIVE INFORMATION 09/06/2007 Overview: No, Advance Directive brochure offered , patient declined. documented as of this encounter (statuses as of 12/25/2023) Resolved Problems Problem Noted Date Diagnosed Date Resolved Date Strep sore throat 11/04/2022 02/27/2023 History of 2019 novel norwood virus disease (COVID-19) 03/01/2021 04/14/2021 Iron deficiency anemia 08/06/202002/07 Prediabetes 12/31/2018 06/23/2022 Venous stasis 09/01/2016 07/06/2017 Abdominal pain 01/11/2015 07/06/2017 HTN, goal below 130/80 10/06/200910/18 Overview: Per HTN Taxonomy. Dyslipidemia, goal LDL below 100 08/25/2009 10/18/2009 Overview: Per Lipid Taxonomy. Mixed dyslipidemia 10/22/2008 9 Overview: Per Lipid Taxonomy. HTN, goal below 140/90 10/22/200810/06 Overview: Per HTN Taxonomy. Morbid obesity, BMI not known 04/29/2007 10/18/2009 Morbid obesity, BMI not known 04/29/2007 10/08/2008 Overview: Resolved per Duplicate Protocol #2. Type 2 diabetes mellitus wit h hemoglobin A1c goal of less than 7.0% 04/29/2007 07/08/2009 Overview: Per Diabetes Taxonomy. ICD-10 update of inactive term Sleep apnea 04/29/2007 10/18/2009 documented as of this encounter (statuses as of 12/25/2023) Immunizations Name Administration Dates Next Due COVID-19 mRNA, LNP-s, No Pre serve, 2-Dose Series (Moderna) 01/17/2021,12/20/2020 COVID-19, mRNA, LNP-s, PF, B ooster, 100mcg/0.5mg (Moderna) 01/17/2021,12/20/2020 H1N1 2009 Influenza, IM 09/23/2009 Hepatitis B, 20+ yrs 10/23/2019 PPD 06/22/2008 Pneumococcal Conjugate Vacc, 13 Valent (Prevnar) 07/09/2018 Pneumococcal Polysaccharide PPV23 (Pneumovax) 06/19/2017,06/22/2008 Seasonal Influenza Virus Vac cine, Unspecified Formulation 06/01/2021,05/26/2020,06/03/2019,07/09,06/19/2017,06/22/2016,06/19/2015 ,05/30/2013,05/30/2012,05/12/2009,06/10 Seasonal Influenza, PF, 6 M & above, IM , (FluLaval or Fluzone) 07/03/2023,05/30/2022,06/01/2021,05/26,06/03/2019,07/09/2018,06/19/2017 Seasonal Influenza, Quadriva lent, No Preserve, IM 06/22/2016,06/19/2015 Seasonal Influenza, Split, I IV3, With Preserve, Inj 07/25/2014,05/30/2013,05/30/2012,05/12,06/22/2008 TD - Tetanus/Diptheria (ADULT) 03/10/2008 TDAP (age 10 and older)(Boostrix) 12/01/2015 Zoster Vaccine Recombinant (Shingrix) 03/19/2020 ,10/23/2019 documented as of this encounter Social History Tobacco Use Types Packs/Day Years Used Date Smoking Tobacco: Never Smokeless Tobacco: Never Alcohol Use Standard Drinks/Week Comments No 0 (1 standard drink = 0.6 oz pur e alcohol) PHQ-2 Answer Date Recorded PHQ Adult Total Score 15 07/03/2023 Hunger Vital Sign Answer Date Recorded Worried About Running Out of Food in the Last Ye ar Never true 08/15/2019 Ran Out of Food in the Last Year Never true 08/15/2019 Sex and Gender Information Value Date Recorded Sex Assigned at Female 12/31/2018 11:26 AM EDT Gender Identity Female 12/31/2018 11:26 AM EDT Sexual Orientation Straight 12/31/2018 11 :26 AM EDT Job Start Date Occupation Industry Not on file Not on file Not on file documented as of this encounter Functional Status Functional Status Response Date of Assess ment Are you deaf or do you have serious difficulty hearing? No 02/28/2021 Are you blind or do you have serious difficulty seeing, even when wearing glasses? No 02/28/2021 Do you have serious difficul ty walking or climbing stairs? (5 years old or older) Yes 02/28/2021 Do you have difficulty dress ing or bathing? (5 years old or older) No 02/28/2021 Because of a physical, menta l, or emotional condition, do you have difficulty doing errands alone such as visiting a doctor s office or shopping? (15 years old or older) Yes-sometimes 02/29/20 Cognitive Status Response Date of Assessm ent Because of a physical, menta l, or emotional condition, do you have serious difficulty concentrating, remembering, or making decisions? (5 years old or older) No 02/28/2021 documented as of this encounter Miscellaneous Notes * Telephone Encounter - Kieran Hutton RN - 12/25/2023 8:28 AM EDT MyG sent to schedule appointment for follow up. 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 Some levels are high and experiencing Harmony-Cox symptoms. documented in this encounter Plan of Treatment Upcoming Encounters Date Type Department Care Team (Late st Contact Info) Description 12/27/2023 2:20 PM EDT Office Visit General Internal Medicine [facility] [place] [address] [place] [address] Krystyna John MD [address] [place] [address] 02/11/2024 2:00 PM EDT Office Visit Nutrition & Weight Management, [facility] [address] [place] [address] Torrie Nobles PA-C [address] [place] [address] 02/11/2024 3:10 PM EDT Nutrition Services Nutrition & Weight Management, [facility] [address] [place] [address] Sharon Zavala RDN [address] [place] [address] 02/13/2024 2:30 PM EDT Office Visit Rheumatology [facility] [address] [place] [address] Rachid Dena [place] [email or web address] [place] [address] 04/03/2024 3:20 PM EDT Office Visit General Internal Medicine [facility] [place] [address] [place] [address] Krystyna John MD [address] [place] [address] 06/03/2024 1:00 PM EDT Office Visit Sleep Disorders Ctr [facility] [address] [place] [phone] Anamaria Mott, [address] [facility] [place] [address] 10/27/2024 1:00 PM EST Imaging Radiology [facility] [address] [facility] [place] [address] Scheduled Procedures Name Priority Associated Diagnoses Date/Ti me ESOPHAGOGASTRODUODENOSCOPY ( EGD), FLEXIBLE, TRANSORAL, DIAGNOSTIC Recall Iron deficiency anemia due to chronic blood loss COLONOSCOPY FLEXIBLE PROXIMAL DIAGNOSTIC Recall Iron deficiency anemia due to chronic blood loss COLONOSCOPY FLEXIBLE PROXIMAL DIAGNOSTIC Recall Colon cancer screening Health Maintenance Due Date Last Done Comments Cologuard 2008 Fecal Occult Blood Test 2008 Sigmoidoscopy 2008 Hepatitis B (2 of 3 - 19+ 3-dose series) 11/20/2019 10/23/2019 Diabetic Eye Exam 01/23/2023 01/23/2022, (Done elsewhere) COVID-19 Vaccine ( season) 2023 01/17/2021, 01/17/2021, 12/20/2020, Additional history exists Depression, Most Recent Score >= 10 (will fire each visit until score < 10) 07/04/2023 07/03/2023 Albumin/Creatinine Ratio 03/29/2024 023, 10/23/2019, 08/23/2016 Diabetic Foot Exam 03/29/2024 03/29/2023, 10/22/2008 Mammogram 04/05/2024 04/05/2023, 03/11, 07/28/2020, Additional history exists HbA1c 06/24/2024 12/24/2023, 09/11, 03/29/2023, Additional history exists TSH 10/04/2024 10/04/2023, 03/11, 03/02/2022, Additional history exists GFR 12/23/2024 12/24/2023, 09/11, 03/29/2023, Additional history exists DTaP,Tdap,and Td Vaccines (2 - Td or Tdap) 11/30/2025 12/01/2015, 03/10/2008 Colonoscopy 08/30/2026 08/30/2016, 08/30/2016 Colorectal Cancer Screening 08/30/2026 Pneumococcal Vaccine: Pediatrics (0 to 5 Years) and At-Risk Patients (6 to 64 Years) (3 of 3 - PPSV23 or PCV20) 2028 07/09/2018, 06/19/2017, 06/22/2008 Lipid Panel 12/23/2028 12/24/2023, 09/11, 03/02/2022, Additional history exists Zoster Vaccines Completed 03/19/2020, 10/23/2019 Influenza Vaccine (FLU shot) Completed , 05/30/2022, 06/01/2021, Additional history exists GARDASIL-HPV IMMUNIZATION SERIES Aged Out No longer eligible based on patient's age to complete this topic MENINGOCOCCAL (MENACTRA/MENVEO) Aged Out No longer eligible based on patient's age to complete this topic documented as of this encounter Medical Devices Implanted Type Area Patient Care Assistant Device Identifier Shelf Expiration Date Model / Serial / Lot Knee Triathlon Bead No Jayce L 4 - [id number] Implanted:Qty: 1 on 02/28/2021 by Galileo Campuzano DO at OR [facility] Left: Knee ILEANA : ORTHOPAEDICS 12/07/2024 [id number] / / [id number] Description:cruciate retaini ng femoral Implant Knee Patellar - [id number] Implanted:Qty: 1 on 02/28/2021 by Galileo Campuzano DO at OR [facility] Left: Knee ILEANA : ORTHOPAED[employer] 01/06/2026 [id number] / / [id number] Description:symmetric patell a Baseplate #4 Tritanium - [id number] Implanted:Qty: 1 on 02/28/2021 by Galileo Campuzano, DO at OR [facility] Left: Knee ILEANA : ORTHOPAEDICS 09/24/2025 [id number] / / [id number] Description:tibial component Tiathlon X3 Tibial Bearing Insert-Cs Implanted:Qty: 1 on 02/28/2021 by Galileo Campuzano, DO at OR [facility] Left: Knee ILEANA : ORTHOPAEDICS 07/05/2024 [id number] / / [id number] Description:tibial bearing i nsert documented as of this encounter Additional Health Concerns Infection Onset Date Last Indicated Resolved Time ((Group A Strep) Strep pyogenes) 11/04/2022 11/04/19 documented as of this encounter Advance Directives Latest Code Status on File Code Status Date Activated Date Inactivated Comments Full Code 02/28/2021 10:22 AM 03/01/2021 8:02 PM This order reflects the patients wishes and were consensually agreed upon. Question Answer Comments Discussion of Advance Directives occurred with: Patient Does the patient have a Living Will? Yes, not currently available Does the patient have Health Care Power of Sheet Metal Helper? Yes, not currently available Code Status History Code Status Date Activated Date Inactivated Comments Full Code 06/01/2011 5:39 PM 06/03/2011 7:06 PM This order reflects the patients wishes and were consensually agreed upon. Question Answer Comments Discussion of Advance Directives occurred with: Patient Full Code 03/01/2009 10:26 AM 03/03/2009 1:35 PM This order reflects the patients wishes and were consensually agreed upon. Full Code 03/01/2009 5:56 AM 03/01/2009 10:26 AM This order reflects the patients wishes and were consensually agreed upon. Care Teams Financial Aid Coordinator Relationship Specialty Start Date End Date Krystyna John MD [address] [facility] [place] [address] PCP - General Internal Medicine 12/06/21 documented as of this encounter
--- OUTSIDE RECORDS SUMMARY | 2023-12-25 22:13 | External Medical Summary | Summary of Care ---
Author Name Unknown Organization [facility] Address [address] [place] [address] Phone [phone] Care Team Providers Care Central Service Tech Name Role Phone Krystyna John MD Primary Care Provider + Reason for Visit * Reason Onset Date Comments Advice 12/25/2023 Encounter Details Date Type Department Care Team (Late st Contact Info) Description 12/25/2023 Telephone General Internal Medicine [facility] 200 [facility] [address] [place] [address] Krystyna John MD [address] [place] [address] Advice Allergies Active Allergy Reactions Criticality Noted [...] 03/06/2022 Active Vitamin D (Ergocalciferol) 1.25 MG (49448 UT) Oral Capsule (Drisdol) TAKE ONE CAPSULE [...] two weeks 30 Tablet 1 11/13/2023 Active Migo.me Ultra 2 w/Device Kit Use as directed to check blood sugar. 1 Kit 0 11/13/2023 Active Migo.me Ultra In Vitro Strip (Glucose Blood) Use as directed to check blood sugar. 100 Strip 3 11/13/2023 Active Migo.me Delica Plus [id number] Use as directed to test blood sugar. 100 Each 3 11/13/2023 Active Vitamin D3 50 MCG (1999 UT) Oral Capsule (Cholecalciferol)I ndications:Low vitamin D level Take 1 Capsule by mouth in the morning. 100 Capsule 3 11/15/2023 Active Fremanezumab-vfrm 225 MG/1.5ML Subcutaneous Solution Prefilled Syringe (RevoLaze) Inject 1.5 mL under the skin every [...] hemoglobin A1c goal of less than 7.0% ([facility]) Inject 0.25mg under the skin once weekly for 4 weeks then increase to 0.5mg under the skin once weekly thereafter 9 mL 0 11/20/2023 Active Hospital, Clinic, or Other Facility Administered Medication Ordered Dose Route Frequency Start Date End Date Status vitamin b-12 (Cyanocobalamin) inj 1,000 mcgIndications:Intestinal postoperative nonabsorption,B12 deficiency 1000 mcg IM [id number] 11/20/2023 05/06/2024 Active documented as of this [...] tis 10/22/2008 Psoriatic arthropathy 05/20/2008 DOMINGUEZ RESEARCH OTHER*[id number] 03/23/2008 ADVANCE DIRECTIVE INFORMATION 09/06/2007 Overview: No, [...] (15 years old or older) Yes-sometimes 02/29/20 21 Cognitive Status Response Date of Assessm ent Because of a physical, menta l, or emotional condition, do you have serious difficulty concentrating, remembering, or making decisions? (5 years old or older) No 02/28/2021 documented as of this encounter Miscellaneous Notes * Telephone Encounter - Virgen Snider LPN - 12/25/2023 9:59 AM EDT Pt is calling and asking if she should go back to the ER? Reports that she is having pain in her left side, neck pain, generalized pain everywhere, having trouble walking, feeling feverish/chills and nausea/no appetite. Just feels miserable. Noticed that her platelet counts and Monocytes are still high yet. When being D/C from hospital 12/13/23 platelets were 487. Does not want to get as bad as she was due to caring for with dementia and daughter with MS. Called PCP office, spoke with Corinne and made her aware. Offered pt an appointment in [place] today and pt declined. States that she is going to the ER. FYI- PCP * Telephone Encounter - Kieran Hutton RN - 12/25/2023 8:28 AM EDT MyG sent to schedule appointment for follow up. Provider to address: n/a Reason for Call: Advice Contact: [facility] Contact Type: Advice Outcome: See above Face to face time spent with Patient (minutes): 0 Total Time including non face to face (minutes): 10 Kieran Hutton DEMAND PLANNER [facility] Primary Care Nurse Coordinator [facility] (Helping out) * Telephone Encounter - [...] PM EDT Office Visit General Internal Medicine [facility] [address] [place], [place] [address] Krystyna John MD [address] [place] [address] 02/11/2024 2:00 PM EDT Office Visit Nutrition & Weight Management, [facility] [address] [place] [address] Torrie Nobles PA-C [address] [place] [address] 02/11/2024 3:10 PM EDT Nutrition Services Nutrition & Weight Management, [facility] 132 [facility] [place] [address] Sharon Zavala RDN [address] [place] [address] 02/13/2024 2:30 PM EDT Office Visit Rheumatology [facility] [address] [place] [address] Rachid Dean PA-C [address] [place] [address] 04/03/2024 3:20 PM EDT Office Visit General Internal Medicine [facility] [address] [place] [address] Krystyna John MD 200 [facility] [place] [address] 06/03/2024 1:00 PM EDT Office Visit Sleep Disorders Ctr [facility] 132 [facility] [place] [phone] Anamaria Mott DO [address] [place] [address] 10/27/2024 1:00 PM EST Imaging Radiology [facility] 132 [facility] [place] [address] Scheduled Procedures Name Priority Associated Diagnoses Date/Ti [...] this encounter Medical Devices Implanted Type Area Communication Spec Device Identifier Shelf Expiration Date Model / Serial / Lot Knee Triathlon Bead No Jayce L 4 - [id number] Implanted:Qty: 1 on 02/28/2021 by Galileo Campuzano, DO at OR [facility] Left: Knee ILEANA : ORTHOPAEDICS 12/07/2024 5517-F-401 / / [id number] Description:cruciate retaini ng femoral Implant Knee Patellar - [id number] Implanted:Qty: 1 on 02/28/2021 by Galileo Campuzano, DO at OR [facility] Left: Knee ILEANA : ORTHOPAEDICS 01/06/2026 [id number]-L-319 / / [id number] Description:symmetric patell a Baseplate #4 Tritanium - [id number] Implanted:Qty: 1 on 02/28/2021 by Galileo Campuzano, DO at OR [facility] Left: Knee ILEANA : ORTHOPAEDICS 09/24/2025 5536-B-400 / / [id number] Description:tibial component Tiathlon X3 Tibial Bearing Insert-Cs Implanted:Qty: 1 on 02/28/2021 by Galileo Campuzano, DO at OR [facility] Left: Knee ILEANA : ORTHOPAEDICS 07/05/2024 5531-G-410 -[id number] / / [id number] Description:tibial bearing i nsert documented as of this encounter Additional Health Concerns Infection Onset Date Last Indicated Resolved Time ((Group A Strep) Strep pyogenes) 11/04/2022 11/04/19 23 documented as of this encounter Advance Directives [...] the patient have Health Care Power of Shoe Stock Associate? Yes, not currently available Code Status History [...] and were consensually agreed upon. Care Teams Central Service Tech Relationship Specialty Start Date End Date Krystyna John MD 200 [place] [address] PCP - General Internal Medicine 12/06/21 documented as of this encounter
--- OUTSIDE RECORDS SUMMARY | 2023-12-25 22:13 | External Medical Summary | Summary of Care ---
Author Name Unknown Organization [facility] Address [address] [place] [address] Phone [phone] Care Team Providers Care Tire Service Technician Name Role Phone Krystyna John MD Primary Care Provider + Encounter Details Date Type Department Care Team (Late st Contact Info) Description 12/10/2023 Telephone Hematology/Oncology Treatment, [place] [address] [place] [address] Krystyna John MD 200 [place] [address] Allergies Active Allergy Reactions Criticality Noted Date [...] 03/06/2022 Active Vitamin D (Ergocalciferol) 1.25 MG (95101 UT) Oral Capsule (Drisdol) TAKE ONE CAPSULE [...] Additional Information Patient taking differently:10 mg OralTID ;12;18, Reported on 11/20/2023 Propranolol HCl ER 60 [...] two weeks 30 Tablet 1 11/13/2023 Active Interview Master Ultra 2 w/Device Kit Use as directed to check blood sugar. 1 Kit 0 11/13/2023 Active Interview Master Ultra In Vitro Strip (Glucose Blood) Use as directed to check blood sugar. 100 Strip 3 11/13/2023 Active Interview Master Delica Plus [id number] Use as directed to test blood sugar. 100 Each 3 11/13/2023 Active Vitamin D3 50 MCG (2000 UT) Oral Capsule (Cholecalciferol)I ndications:Low vitamin D level Take 1 Capsule by mouth in the morning. 100 Capsule 3 11/15/2023 Active Fremanezumab-vfrm 225 MG/1.5ML Subcutaneous Solution Prefilled Syringe (Diurnal) Inject 1.5 mL under the skin every [...] hemoglobin A1c goal of less than 7.0% ([facility]) Inject 0.25mg under the skin once weekly for 4 weeks then increase to 0.5mg under the skin once weekly thereafter 9 mL 0 11/20/2023 Active Hospital, Clinic, or Other Facility Administered Medication Ordered Dose Route Frequency Start Date End Date Status vitamin b-12 (Cyanocobalamin) inj 1,000 mcgIndications:Intestinal postoperative nonabsorption,B12 deficiency 1000 mcg IM [id number] 11/20/2023 05/06/2024 Active documented as of this [...] tis 10/22/2008 Psoriatic arthropathy 05/20/2008 DOMINGUEZ RESEARCH OTHER*[id number] 03/23/2008 ADVANCE DIRECTIVE INFORMATION 09/06/2007 Overview: No, [...] encounter Miscellaneous Notes * Telephone Encounter - Rachid Dean PA-C - 12/25/2023 7:54 AM EDT Discharged from center care. LFT back to baseline. Can resume Avsola. * Telephone Encounter - Princess Rosales RN - 12/11/2023 7:53 AM EDT Patient was scheduled for avsola ordered by Rachid Dean Rheum: please advise when/ if patient is ready to be rescheduled for avsola. Thanks! * Telephone Encounter - Mary Woodard OSA - 12/10/2023 10:14 AM EDT Called pt and she stated that she wanted to hold off on scheduling right away due to not knowing when she will be out of the hospital Pt stated that she will call in as soon as she is out and get scheduled * Telephone Encounter - Rosa Barbour RN - 12/10/2023 10:00 AM EDT Patient did not arrive for appt. today, it appears the patient was admitted to [facility]. Scheduling: Please reach out to patient to reschedule infusion and remove from schedule today. NS:Please update beacon. documented in this encounter Plan of Treatment Upcoming Encounters Date Type Department Care Team (Late st Contact Info) Description 12/27/2023 2:20 PM EDT Office Visit General Internal Medicine [facility] [address] [place] [address] Krystyna John MD 200 [facility] [place] [address] 02/11/2024 2:00 PM EDT Office Visit Nutrition & Weight Management, [facility] [address] [place] [address] Torrie Nobles PA-C [address] [place] [address] 02/11/2024 3:10 PM EDT Nutrition Services Nutrition & Weight Management, [facility] [address] [place] [address] Sharon Zavala RDN [address] [place] [address] 02/13/2024 2:30 PM EDT Office Visit Rheumatology [facility] [address] [facility] [place] [address] Rachid Dean PA-C [address] [employer] [place] [address] 04/03/2024 3:20 PM EDT Office Visit General Internal Medicine [facility] [address] [place] [address] Krystyna John MD [address] [place] [address] 06/03/2024 1:00 PM EDT Office Visit Sleep Disorders Ctr [facility] 132 [facility] [place] [phone] Anamaria Mott, 132 [facility] [place] [address] 10/27/2024 1:00 PM EST Imaging Radiology [address] 132 [facility] [place] [address] Scheduled Procedures Name Priority Associated Diagnoses Date/Ti [...] Exam 01/23/2023 01/23/2022, (Done elsewhere) COVID-19 Vaccine (2022- season) 2023 01/17/2021, 01/17/2021, 12/20/2020, Additional history [...] this encounter Medical Devices Implanted Type Area Tapper Operator Device Identifier Shelf Expiration Date Model / Serial / Lot Knee Triathlon Bead No Jayce L 4 - [id number] Implanted:Qty: 1 on 02/28/2021 by Galileo Campuzano DO at OR [facility] Left: Knee ILEANA : ORTHOPAEDICS 12/07/2024 5517-F-401 / / [id number] Description:cruciate retaini ng femoral Implant Knee Patellar - [id number] Implanted:Qty: 1 on 02/28/2021 by Galileo Campuzano, DO at OR [facility] Left: Knee ILEANA : ORTHOPAEDICS 01/06/2026 5556-L-319 / / [id number] Description:symmetric patell a Baseplate #4 Tritanium - [id number] Implanted:Qty: 1 on 02/28/2021 by Galileo Campuzano, DO at OR [facility] Left: Knee ILEANA : ORTHOPAEDICS 09/24/2025 5536-B-400 / / [id number] Description:tibial component Tiathlon X3 Tibial Bearing Insert-Cs Implanted:Qty: 1 on 02/28/2021 by Galileo Campuzano, DO at OR [facility] Left: Knee ILEANA : ORTHOPAEDICS 07/05/2024 5531-G-410 [...] the patient have Health Care Power of Aircraft Air Conditioning Mechanic? Yes, not currently available Code Status History [...] and were consensually agreed upon. Care Teams Tire Service Technician Relationship Specialty Start Date End Date Krystyna John MD [address] [place] [address] [place] [address] PCP - General Internal Medicine 12/06/21 documented as of this encounter
--- OUTSIDE RECORDS SUMMARY | 2023-12-25 22:13 | External Medical Summary | Summary of Care ---
Author Name Unknown Organization [facility] Address [address] [place] [address] Phone [phone] Care Team Providers Care School Adjustment Counselor Name Role Phone Krystyna John MD Primary Care Provider + Reason for Visit * Reason Onset Date Comments Advice 12/25/2023 Encounter Details Date Type Department Care Team (Late st Contact Info) Description 12/25/2023 Telephone General Internal Medicine [facility] [address] [facility] [address] [place] [address] Krystyna John MD 200 [place] [address] Advice Allergies Active Allergy Reactions Criticality Noted [...] 03/06/2022 Active Vitamin D (Ergocalciferol) 1.25 MG (53710 UT) Oral Capsule (Drisdol) TAKE ONE CAPSULE [...] two weeks 30 Tablet 1 11/13/2023 Active Schvey Ultra 2 w/Device Kit Use as directed to check blood sugar. 1 Kit 0 11/13/2023 Active Schvey Ultra In Vitro Strip (Glucose Blood) Use as directed to check blood sugar. 100 Strip 3 11/13/2023 Active Schvey Delica Plus [id number] Use as directed to test blood sugar. 100 Each 3 11/13/2023 Active Vitamin D3 50 MCG (1999 UT) Oral Capsule (Cholecalciferol)I ndications:Low vitamin D level Take 1 Capsule by mouth in the morning. 100 Capsule 3 11/15/2023 Active Fremanezumab-vfrm 225 MG/1.5ML Subcutaneous Solution Prefilled Syringe ([employer]) Inject 1.5 mL under the skin every [...] goal of less than 7.0% ([facility]) Inject 0.25mg under the skin once weekly for 4 weeks then increase to 0.5mg under the skin once weekly thereafter 9 mL 0 11/20/2023 Active Hospital, Clinic, or Other Facility Administered Medication Ordered Dose Route Frequency Start Date End Date Status vitamin b-12 (Cyanocobalamin) inj 1,000 mcgIndications:Intestinal postoperative nonabsorption,B12 deficiency 1000 mcg IM [id number] 11/20/2023 05/06/2024 Active documented as of this [...] tis 10/22/2008 Psoriatic arthropathy 05/20/2008 DOMINGUEZ RESEARCH OTHER*[id number] 03/23/2008 ADVANCE DIRECTIVE INFORMATION 09/06/2007 Overview: No, [...] n/a Reason for Call: Advice [facility] Contact Type: Advice Outcome: See above Face to face time spent with Patient (minutes): 0 Total Time including non face to face (minutes): 10 Kieran Hutton RN BSN [facility] Primary Care Nurse Coordinator [facility] (Helping out) * Telephone Encounter - [...] PM EDT Office Visit General Internal Medicine [facility] [place] [address] Krystyna John MD [address] [place] [address] 02/11/2024 2:00 PM EDT Office Visit Nutrition & Weight Management, [facility] [address] [place] [address] Torrie Nobles PA-C [address] [place] [address] 02/11/2024 3:10 PM EDT Nutrition Services Nutrition & Weight Management, [facility] [address] [place] [address] Sharon Zavala RDN [address] [place] [address] 02/13/2024 2:30 PM EDT Office Visit Rheumatology [facility] [address] [place] [address] Rachid Dean PAMelony [email or web address] [place] [address] 04/03/2024 3:20 PM EDT Office Visit General Internal Medicine [facility] [address] [place] [address] [address] Krystyna John MD [address] [place] [address] 06/03/2024 1:00 PM EDT Office Visit Sleep Disorders Ctr [facility] [address] [place] [phone] Anamaria Mott, 132 [facility] [place] [address] 10/27/2024 1:00 PM EST Imaging Radiology [facility] 132 [facility] [place] [address] Scheduled Procedures Name Priority Associated Diagnoses Date/Ti [...] this encounter Medical Devices Implanted Type Area E Commerce Merchandising Coordinator Device Identifier Shelf Expiration Date Model / Serial / Lot Knee Triathlon Bead No Jayce L 4 - [id number] Implanted:Qty: 1 on 02/28/2021 by Galileo Campuzano DO at OR [facility] Left: Knee ILEANA : ORTHOPAEDICS 12/07/2024 5517-F-401 / / [id number] Description:cruciate retaini ng femoral Implant Knee Patellar - [id number] Implanted:Qty: 1 on 02/28/2021 by Galileo Campuzano DO at OR [facility] Left: Knee ILEANA : ORTHOPAEDICS 01/06/2026 5556-L-319 / / [id number] Description:symmetric patell a Baseplate #4 Tritanium - [id number] Implanted:Qty: 1 on 02/28/2021 by Galileo Campuzano, DO at OR [facility] Left: Knee ILEANA : ORTHOPAEDICS 09/24/2025 5536-B-400 / / [id number] Description:tibial component Tiathlon X3 Tibial Bearing Insert-Cs Implanted:Qty: 1 on 02/28/2021 by Galileo Campuzano, DO at OR [facility] Left: Knee ILEANA : ORTHOPAEDICS 07/05/2024 5531-G-410 [...] the patient have Health Care Power of Lead Applications Developer? Yes, not currently available Code Status History [...] and were consensually agreed upon. Care Teams School Adjustment Counselor Relationship Specialty Start Date End Date Krystyna John MD 200 [facility] [address] PCP - General Internal Medicine 12/06/21 documented as of this encounter
--- OUTSIDE RECORDS SUMMARY | 2023-12-25 22:14 | External Medical Summary | Summary of Care ---
Author Name Unknown Organization [facility] Address [address] [place] [address] Phone [phone] Care Team Providers Care Route Agent Name Role Phone Krystyna John MD Primary Care Provider + Encounter Details Date Type Department Care Team (Late st Contact Info) Description 12/10/2023 Telephone Hematology/Oncology Treatment, [place] [address] [place] [address] Krystyna John MD [address] [place] [address] Allergies Active Allergy Reactions Criticality Noted Date Comments Oxycodone High 07/06/2020 Other reaction(s): Hives Oxycodone-Acetaminophen Itching High 06/02/2011 Piperacillin Sod-Tazobactam So Hives 01/14/2018 Tazobactam High 07/06/2020 Other reaction(s): Pruritus Ketorolac Tromethamine Hives High 01/14/2018 Vancomycin High 06/29/2008 IV Vancomycin documented as of this encounter (statuses as of 12/10/2023) Medications Medication Sig Dispensed Refills Start Date [...] 03/06/2022 Active Vitamin D (Ergocalciferol) 1.25 MG (17732 UT) Oral Capsule (Drisdol) TAKE ONE CAPSULE [...] two weeks 30 Tablet 1 11/13/2023 Active FiNC Ultra 2 w/Device Kit Use as directed to check blood sugar. 1 Kit 0 11/13/2023 Active FiNC Ultra In Vitro Strip (Glucose Blood) Use as directed to check blood sugar. 100 Strip 3 11/13/2023 Active FiNC Delica Plus [id number] Use as directed to test blood sugar. 100 Each 3 11/13/2023 Active Vitamin D3 50 MCG (2000 UT) Oral Capsule (Cholecalciferol)I ndications:Low vitamin D level Take 1 Capsule by mouth in the morning. 100 Capsule 3 11/15/2023 Active Fremanezumab-vfrm 225 MG/1.5ML Subcutaneous Solution Prefilled Syringe (tibdit) Inject 1.5 mL under the skin every [...] goal of less than 7.0% ([facility]) Inject 0.25mg under the skin once weekly for 4 weeks then increase to 0.5mg under the skin once weekly thereafter 9 mL 0 11/20/2023 Active Hospital, Clinic, or Other Facility Administered Medication Ordered Dose Route Frequency Start Date End Date Status vitamin b-12 (Cyanocobalamin) inj 1,000 mcgIndications:Intestinal postoperative nonabsorption,B12 deficiency 1000 mcg IM [id number] 11/20/2023 05/06/2024 Active documented as of this encounter (statuses as of 12/10/2023) Active Problems Problem Noted Date Diagnosed Date [...] tis 10/22/2008 Psoriatic arthropathy 05/20/2008 DOMINGUEZ RESEARCH OTHER*[id number] 03/23/2008 ADVANCE DIRECTIVE INFORMATION 09/06/2007 Overview: No, Advance Directive brochure offered , patient declined. documented as of this encounter (statuses as of 12/10/2023) Resolved Problems Problem Noted Date Diagnosed Date [...] as of this encounter (statuses as of 12/10/2023) Immunizations Name Administration Dates Next Due COVID-19 [...] encounter Miscellaneous Notes * Telephone Encounter - Mary Woodard OSA [...] it appears the patient was admitted to [facility]. Scheduling: Please reach out to patient to reschedule infusion and remove from schedule today. NS:Please update beacon. documented in this encounter Plan of Treatment Upcoming Encounters Date Type Department Care Team (Late st Contact Info) Description 12/13/2023 2:00 PM EDT Nurse Only [facility] [address] [place] [address] Rem[place], Nurse Gi [facility] [place] [address] 01/01/2024 8:20 AM EDT Office Visit Sleep Disorders Ctr [facility] [address] [place] [phone] Anamaria Mott DO [address] [place] [address] 02/11/2024 2:00 PM EDT Office Visit Nutrition & Weight Management, [facility] [address] [place] [address] Torrie Nobles PA-C [address] [place] [address] 02/11/2024 3:10 PM EDT Nutrition Services Nutrition & Weight Management, [facility] [address] [place] [address] Sharon Zavala RDN [address] [place] [address] 02/13/2024 2:30 PM EDT Office Visit Rheumatology [place] [address] [facility] [place] [address] Rachid Dean PAIzabelaC [address] [place] [address] [place] [address] 04/03/2024 3:20 PM EDT Office Visit General Internal Medicine [facility] 200 [facility] [place] [address] Krystyna John MD 200 [facility] [place] [address] 10/27/2024 1:00 PM EST Imaging Radiology [facility], [place] [address] [place] [address] Scheduled Procedures Name Priority Associated Diagnoses Date/Ti [...] 08/23/2016 Diabetic Foot Exam 03/29/2024 03/29/2023, 10/22/2008 HbA1c 04/03/2024 10/04/2023, 03/11, 03/02/2022, Additional history exists Mammogram 04/05/2024 04/05/2023, 03/11, 07/28/2020, Additional history exists GFR 10/04/2024 10/04/2023, 03/11, 02/13/2023, Additional history exists TSH 10/04/2024 10/04/2023, 03/11, 03/02/2022, Additional history exists DTaP,Tdap,and Td Vaccines (2 - Td or Tdap) 11/30/2025 12/01/2015, 03/10/2008 Colonoscopy 08/30/2026 08/30/2016, 08/30/2016 Colorectal Cancer Screening 08/30/2026 Pneumococcal Vaccine: Pediatrics (0 to 5 Years) and At-Risk Patients (6 to 64 Years) (3 of 3 - PPSV23 or PCV20) 2028 07/09/2018, 06/19/2017, 06/22/2008 Lipid Panel 10/04/2028 10/04/2023, 02/09, 10/23/2019, Additional history exists Zoster Vaccines Completed 03/19/2020, 10/23/2019 Influenza Vaccine (FLU shot) Completed , 05/30/2022, 06/01/2021, Additional history exists GARDASIL-HPV IMMUNIZATION SERIES Aged Out No longer eligible based on patient's age to complete this topic MENINGOCOCCAL (MENACTRA/MENVEO) Aged Out No longer eligible based on patient's age to complete this topic documented as of this encounter Medical Devices Implanted Type Area Ve Teacher Device Identifier Shelf Expiration Date Model / Serial / Lot Knee Triathlon Bead No Jayce L 4 - [id number] Implanted:Qty: 1 on 02/28/2021 by Galileo Campuzano, DO at [facility] Left: Knee ILEANA : ORTHOPAEDICS 12/07/2024 [id number]-F-401 / / [id number] Description:cruciate retaini ng femoral Implant Knee Patellar - [id number] Implanted:Qty: 1 on 02/28/2021 by Galileo Campuzano, DO at [facility] Left: Knee ILEANA : ORTHOPAEDICS 01/06/2026 [id number]-L-[id number] / / [id number] Description:symmetric patell a Baseplate #4 Tritanium - [id number] Implanted:Qty: 1 on 02/28/2021 by Galileo Campuzano, DO at [facility] Left: Knee ILEANA : ORTHOPAEDICS 09/24/2025 5536-B-400 / / [id number] Description:tibial component Tiathlon X3 Tibial Bearing Insert-Cs Implanted:Qty: 1 on 02/28/2021 by Galileo Campuzano, DO at [facility] Left: Knee ILEANA : ORTHOPAEDICS 07/05/2024 [...] the patient have Health Care Power of Health Services Director? Yes, not currently available Code Status History [...] and were consensually agreed upon. Care Teams Route Agent Relationship Specialty Start Date End Date Krystyna John MD [address] [place] [id number] PCP - General Internal Medicine 12/06/21 documented as of this encounter
--- OUTSIDE RECORDS SUMMARY | 2023-12-25 22:14 | External Medical Summary ---
Author Name Unknown Address Unknown Organization [id number]:LABORATORY [facility] [address] - [address] [place] [address] Laboratory Report Ordering Provider Test Date Status MARYA BRENNAN 12/24/2023 14:46:46 Final Observation Date Value Abnormality Reference (Units ) Status WBC, Total 12/24/2023 14:46:46 7.42 4.00-10.8 0 (K/uL) Final RBC 12/24/2023 14:46:46 4.13 3.85-5.15 (M/uL) Final Hemoglobin 12/24/2023 14:46:46 12.8 12.0-15.3 (g/dL) Final HCT 12/24/2023 14:46:46 38.3 36.0-45.2 (%) Final MCV 12/24/2023 14:46:46 92.7 81.5-97.5 (fL) Final MCH 12/24/2023 14:46:46 31.0 27.0-34.0 (pg) Final MCHC 12/24/2023 14:46:46 33.4 32.0-36.0 (g/dL) Final RDW 12/24/2023 14:46:46 14.3 11.5-15.5 (%) Final Platelets 12/24/2023 14:46:46 437 Above high normal 14 0-400 (K/uL) Final MPV 12/24/2023 14:46:46 9.5 6.6-11.1 ( fL) Final Performing Location LABORATORY [facility] [address] 0 - [address] [place] [address]
--- OUTSIDE RECORDS SUMMARY | 2023-12-25 22:14 | External Medical Summary ---
Author Name Unknown Address Unknown Organization [id number]:[facility]ORY [facility] [place] [address] [facility] [address] Laboratory Report Ordering Provider Test Date Status NOMAN BRENNANPOLINA 12/24/2023 14:46:46 Final Observation Date Value Abnormality Reference (Units ) Status HbA1C 12/24/2023 14:46:46 6.0 Above high normal 4. 0-5.6 (%) Final The use of HbA1c to monitor glycemic status is based on normal hemoglobin and HbA composition. This test should not be used in patients with abnormal hemoglobin that affects the half life of the red blood cell or the in vivo glycation rates. Glucose, estimated average 12/24/2023 14:46:46 126 Above high normal <126 (mg/dL) Jose moreland Performing Location LAB[facility]ORY [facility] [place] - [address] [facility] [place] [facility] [address]
--- OUTSIDE RECORDS SUMMARY | 2023-12-25 22:14 | External Medical Summary ---
Author Name Unknown Address Unknown Organization [id number]:[place] [place] [address] [place] [address] Laboratory Report Ordering Provider Test Date Status ANUNOMANPOLINA 12/24/2023 14:46:46 Final Observation Date Value Abnormality Reference (Units ) Status Parathyrin.intact [Mass/volume] in Serum or Plasma 12/24/2023 14:46:46 70 Above high normal 15-65 (pg/mL) Final Performing Location [facility] [facility] [place] [address] [place] [address]
--- OUTSIDE RECORDS SUMMARY | 2023-12-25 22:14 | External Medical Summary ---
Author Name Unknown Address Unknown Organization [id number]:[facility] [place] [address] [place] [address] Laboratory Report Ordering Provider Test Date Status MARYA BRENNAN 12/24/2023 14:46:46 Final Observation Date Value Abnormality Reference (Units ) Status Ferritin 12/24/2023 14:46:46 294 Above high normal 13 -150 (ng/mL) Final Postmenopausal women have hi gher ferritin levels than pre-menopausal women. The above reference interval is based on pre-menopausal women. Performing Location LAB[facility]ORY [facility] [place] [address] [place] [address]
--- OUTSIDE RECORDS SUMMARY | 2023-12-25 22:14 | External Medical Summary ---
Author Name Unknown Address Unknown Organization K01:[facility] [place] [address] [place] [place] [address] Laboratory Report Ordering Provider Test Date Status ANUNOMANPOLINA 12/24/2023 14:46:46 Final Observation Date Value Abnormality Reference (Units ) Status Folic Acid 12/24/2023 14:46:46 8.7 >4.5 (ng/ mL) Final Performing Location LAB[facility]ORY [facility] - [address] [place] [address]
--- OUTSIDE RECORDS SUMMARY | 2023-12-25 22:14 | External Medical Summary ---
Author Name Unknown Address Unknown Organization K0G:LABORATORY [place] [address] - [address] [place] [address] Laboratory Report Ordering Provider Test Date Status MARYA BRENNAN 12/24/2023 14:46:46 Final Observation Date Value Abnormality Reference (Units ) Status BUN 12/24/2023 14:46:46 13 6-20 (mg/dL) Final Creatinine 12/24/2023 14:46:46 0.7 0.5-1.0 (mg/dL) Final Glomerular filtration rate/1.73 sq M.predicted [Volume Rate/Area] in Serum, Plasma or Blood by Creatinine-based formula (CKD-EPI) 12/24/2023 14:46:46 >90 >=60 (mL/min) Final eGFR is calculated based on the CKD-EPI 2020 equation Sodium 12/24/2023 14:46:46 136 135-146 (m mol/L) Final Potassium 12/24/2023 14:46:46 4.6 3.5-5.1 (m mol/L) Final Cl 12/24/2023 14:46:46 99 98-107 (mm ol/L) Final CO2 12/24/2023 14:46:46 24 22-32 (mmo l/L) Final Anion gap 12/24/2023 14:46:46 13 7-15 (mmol /L) Final Glucose 12/24/2023 14:46:46 102 70-120 (mg /dL) Final Albumin 12/24/2023 14:46:46 4.0 3.8-5.0 (g /dL) Final AST (Aspartate aminotransferase) 12/24/2023 14:46:46 22 10-35 (U/L) Final Alk Phos 12/24/2023 14:46:46 102 35-130 (U/ L) Final Bilirubin, Total 12/24/2023 14:46:46 0.5 <=1 .2 (mg/dL) Final Calcium 12/24/2023 14:46:46 9.7 8.4-10.2 ( mg/dL) Final Protein 12/24/2023 14:46:46 6.3 6.0-8.3 (g /dL) Final ALT (Alanine aminotransferase) 12/24/2023 14:46:46 23 10-35 (U/L) Final Performing Location LABORATORY [place] [facility] 0 - [address] [facility] [address]
--- OUTSIDE RECORDS SUMMARY | 2023-12-25 22:14 | External Medical Summary | Summary of Care ---
Author Name Unknown Organization [facility] Address [address] [place] [facility] [address] Phone [phone] Care Team Providers Care Wholesale Account Executive Name Role Phone Krystyna John MD Primary Care Provider + Reason for Visit * Reason Comments Outpatient Testing Encounter Details Date Type Department Care Team (Late st Contact Info) Description 12/24/2023 3:00 PM EDT Laboratory Laboratory, [facility] [address] [facility] [place] [address] [facility] [address] [place] [address] MyCode Research Other*[id number]; Intestinal postoperative nonabsorption Allergies Active Allergy Reactions Criticality Noted Date Comments Oxycodone High 07/06/2020 Other reaction(s): Hives Oxycodone-Acetaminophen Itching High 06/02/2011 Piperacillin Sod-Tazobactam So Hives 01/14/2018 Tazobactam High 07/06/2020 Other reaction(s): Pruritus Ketorolac Tromethamine Hives High 01/14/2018 Vancomycin High 06/29/2008 IV Vancomycin documented as of this encounter (statuses as of 12/24/2023) Medications Medication Sig Dispensed Refills Start Date [...] 03/06/2022 Active Vitamin D (Ergocalciferol) 1.25 MG (11743 UT) Oral Capsule (Drisdol) TAKE ONE CAPSULE [...] two weeks 30 Tablet 1 11/13/2023 Active mana.bo Ultra 2 w/Device Kit Use as directed to check blood sugar. 1 Kit 0 11/13/2023 Active mana.bo Ultra In Vitro Strip (Glucose Blood) Use as directed to check blood sugar. 100 Strip 3 11/13/2023 Active mana.bo Delica Plus [id number] Use as directed to test blood sugar. 100 Each 3 11/13/2023 Active Vitamin D3 50 MCG (1999) Oral Capsule (Cholecalciferol)I ndications:Low vitamin D level Take 1 Capsule by mouth in the morning. 100 Capsule 3 11/15/2023 Active Fremanezumab-vfrm 225 MG/1.5ML Subcutaneous Solution Prefilled Syringe ([employer]) Inject 1.5 mL under the skin every [...] hemoglobin A1c goal of less than 7.0% ([facility]) Inject 0.25mg under the skin once weekly for 4 weeks then increase to 0.5mg under the skin once weekly thereafter 9 mL 0 11/20/2023 Active Hospital, Clinic, or Other Facility Administered Medication Ordered Dose Route Frequency Start Date End Date Status vitamin b-12 (Cyanocobalamin) inj 1,000 mcgIndications:Intestinal postoperative nonabsorption,B12 deficiency 1000 mcg IM [id number] 11/20/2023 05/06/2024 Active documented as of this encounter (statuses as of 12/24/2023) Active Problems Problem Noted Date Diagnosed Date [...] of pulmonary embolism 04/20/2016 Iron deficiency anemia leonela louis to inadequate dietary iron intake 12/01/2015 H/O gastric bypass 12/01/2015 Generalized edema 12/07/2009 Type 2 diabetes mellitus wit h hemoglobin A1c goal of less than 7.0% 07/08/2009 Overview: Per Diabetes Taxonomy. ICD-10 update of inactive term Postgastric surgery syndrome 04/01/2009 Overview: ICD-10 update of inactive term Intestinal postoperative nonabsorption 9 Gastroesophageal reflux disease without esophagi tis 10/22/2008 Psoriatic arthropathy 05/20/2008 DOMINGUEZ RESEARCH OTHER*[id number] 03/23/2008 ADVANCE DIRECTIVE INFORMATION 09/06/2007 Overview: No, Advance Directive brochure offered , patient declined. documented as of this encounter (statuses as of 12/24/2023) Resolved Problems Problem Noted Date Diagnosed Date [...] as of this encounter (statuses as of 12/24/2023) Immunizations Name Administration Dates Next Due COVID-19 [...] No 02/28/2021 documented as of this encounter Plan of Treatment Upcoming Encounters Date Type Department Care Team (Late st Contact Info) Description 12/27/2023 2:20 PM EDT Office Visit General Internal Medicine [address] [place] [address] [place] [address] Krystyna John MD [address] [facility] [place] [address] 02/11/2024 2:00 PM EDT Office Visit Nutrition & Weight Management, [facility] [address] [place] [address] Torrie Nobles PA-C [address] [place] [address] 02/11/2024 3:10 PM EDT Nutrition Services Nutrition & Weight Management, [facility] [address] [place] [address] Sharon Zavala RDN [address] [place] [address] 02/13/2024 2:30 PM EDT Office Visit Rheumatology [place] [address] [facility] [place] [address] Rachid Dean PA-C [address] [place] [address] 04/03/2024 3:20 PM EDT Office Visit General Internal Medicine [facility] [address] [place], [place] [address] Krystyna John MD 200 [facility] [place] [address] 06/03/2024 1:00 PM EDT Office Visit Sleep Disorders Ctr [facility] [address] [place] [phone] Anamaria Mott, [address] [place] [address] 10/27/2024 1:00 PM EST Imaging Radiology [facility]st [facility] [address] [place] [address] Pending Results Name Type Priority Associated Diagnoses Date /Time MYCODE SUBSEQUENT ADULT Lab Routine MyCode Research Other*[id number] 12/24/2023 2:46 PM EDT CBC WITH WBC DIFFERENTIAL Lab Routine Intestinal postoperative nonabsorption 12/24/2023 2:46 PM EDT COMPREHENSIVE METABOLIC PANEL Lab Routine Intestinal postoperative nonabsorption 12/24/2023 2:46 PM EDT FOLIC ACID Lab Routine Intestinal postoperative nonabsorption 12/24/2023 2:46 PM EDT IRON SCREEN, INCLUDING TIBC Lab Routine Intestinal postoperative nonabsorption 12/24/2023 2:46 PM EDT FERRITIN Lab Routine Intestinal postoperative nonabsorption 12/24/2023 2:46 PM EDT VITAMIN A (RETINOL) Lab Routine Intestinal postoperative nonabsorption 12/24/2023 2:46 PM EDT METHYLMALONIC ACID, SERUM Lab Routine Intestinal postoperative nonabsorption 12/24/2023 2:46 PM EDT VITAMIN B1 (THIAMINE), BLOOD, LC/MS/MS Lab Routine Intestinal postoperative nonabsorption 12/24/2023 2:46 PM EDT HEMOGLOBIN A1C Lab Routine Intestinal postoperative nonabsorption 12/24/2023 2:46 PM EDT LIPID PANEL WITH DIRECT LDL IF TG IS HIGH Lab Routine Intestinal postoperative nonabsorption 12/24/2023 2:46 PM EDT PTH Lab Routine Intestinal postoperative nonabsorption 12/24/2023 2:46 PM EDT 25-HYDROXY VITAMIN D Lab Routine Intestinal postoperative nonabsorption 12/24/2023 2:46 PM EDT COPPER, SERUM OR PLASMA Lab Routine Intestinal postoperative nonabsorption 12/24/2023 2:46 PM EDT ZINC Lab Routine Intestinal postoperative nonabsorption 12/24/2023 2:46 PM EDT VITAMIN B12 Lab Routine Intestinal postoperative nonabsorption 12/24/2023 2:46 PM EDT MYCODE SST1 Lab Routine MyCode Research Other*[id number] 12/24/2023 2:46 PM EDT MYCODE SST2 Lab Routine MyCode Research Other*[id number] 12/24/2023 2:46 PM EDT CBC Lab Routine Intestinal postoperative nonabsorption 12/24/2023 2:46 PM EDT DIFFERENTIAL, AUTOMATED Lab Routine Intestinal postoperative nonabsorption 12/24/2023 2:46 PM EDT Scheduled Procedures Name Priority Associated Diagnoses Date/Ti [...] Exam 03/29/2024 03/29/2023, 10/22/2008 HbA1c 04/03/2024 10/04/2023, 07/2 , 03/02/2022, Additional history exists Mammogram 04/05/2024 04/05/2023, 07/2 03/2023, 07/28/2020, Additional history exists GFR 10/04/2024 10/04/2023, 07/2 , 02/13/2023, Additional history exists TSH 10/04/2024 10/04/2023, 07/2 , 03/02/2022, Additional history exists DTaP,Tdap,and Td Vaccines [...] this encounter Medical Devices Implanted Type Area Web Specialist Device Identifier Shelf Expiration Date Model / Serial / Lot Knee Triathlon Bead No Jayce L 4 - [id number] Implanted:Qty: 1 on 02/28/2021 by Galileo Campuzano, DO at [facility] Left: Knee ILEANA : ORTHOPAEDICS 12/07/2024 5517-F-401 / / [id number] Description:cruciate retaini ng femoral Implant Knee Patellar - [id number] Implanted:Qty: 1 on 02/28/2021 by Galileo Campuzano DO at [facility] Left: Knee ILEANA : ORTHOPAEDICS 01/06/2026 [id number]-L-319 / / [id number] Description:symmetric patell a Baseplate #4 Tritanium - [id number] Implanted:Qty: 1 on 02/28/2021 by Galileo Campuzano DO at [facility] Left: Knee ILEANA : ORTHOPAEDICS 09/24/2025 5536-B-400 / / [id number] Description:tibial component Tiathlon X3 Tibial Bearing Insert-Cs Implanted:Qty: 1 on 02/28/2021 by Galileo Campuzano DO at [facility] Left: Knee ILEANA : ORTHOPAEDICS 07/05/2024 5531-G-[id number] / / [id number] Description:tibial bearing i nsert documented as of this encounter Visit Diagnoses Diagnosis MyCode Research Other*[id number] Intestinal postoperative nonabsorption Other and unspecified postsurgical nonabsorption documented in this encounter Additional Health Concerns Infection Onset [...] the patient have Health Care Power of Distance Learning Program Coordinator? Yes, not currently available Code Status History [...] and were consensually agreed upon. Care Teams Wholesale Account Executive Relationship Specialty Start Date End Date Krystyna John MD [address] [place] [address], [place] [address] PCP - General Internal Medicine 12/06/21 documented as of this encounter
--- OUTSIDE RECORDS SUMMARY | 2023-12-25 22:14 | External Medical Summary ---
Author Name Unknown Address Unknown Organization K01:LABORATORY [facility] - [address] [place] [address] Laboratory Report Ordering Provider Test Date Status ANUNOMANPOLINA 12/24/2023 14:46:46 Final Observation Date Value Abnormality Reference (Units ) Status Vitamin B12 12/24/2023 14:46:46 718 135-9717 (pg/mL) Final Performing Location LABORATORY [facility] - [address] [place] [address]
--- OUTSIDE RECORDS SUMMARY | 2023-12-25 22:14 | External Medical Summary ---
Author Name Unknown Address Unknown Organization K01:LABORATORY [facility] [place] - [address] [place] [address] Laboratory Report Ordering Provider Test Date Status MARYA BRENNAN 12/24/2023 14:46:46 Final Deficient: <20 ng/mL
Ins ufficient: 20-29 ng/mL
Recommended/Optimum:30-50 ng/mL

Vitamin D intoxication is rare. If suspicious of Vitamin D toxicity, evaluation of serum Calcium and PTH is recommended. Observation Date Value Abnormality Reference (Units ) Status 25-OH Vitamin D total 12/24/2023 14:46:46 43 >19 (ng/mL) Final Performing Location LABORATORY C - [address] [place] [address]
--- OUTSIDE RECORDS SUMMARY | 2023-12-25 22:14 | External Medical Summary ---
Author Name Unknown Address Unknown Organization K01:LABORATORY [facility] [place] - [address] [place] [address] Laboratory Report Ordering Provider Test Date Status OLGA LIDIA WHITEHEAD 12/24/2023 14:46:46 Final Observation Date Value Abnormality Reference (Units ) Status MYCODE SPECIMEN-SST 12/24/2023 14:46:46 Freezing of extracted DNA, whole blood and/or serum. Final Performing Location LABORATORY C - [address] [place] [address]
--- OUTSIDE RECORDS SUMMARY | 2023-12-25 22:14 | External Medical Summary | Summary of Care ---
Author Name Unknown Organization [facility] Address [address] [place] [address] Phone [phone] Care Team Providers Care Chicken Handler Name Role Phone Krystyna John MD Primary Care Provider + Encounter Details Date Type Department Care Team (Late st Contact Info) Description 12/10/2023 Telephone Hematology/Oncology Treatment, [place] [address] [place] [address] Krystyna John MD [address] [place] [address] Allergies Active Allergy Reactions Criticality Noted Date Comments Oxycodone High 07/06/2020 Other reaction(s): Hives Oxycodone-Acetaminophen Itching High 06/02/2011 Piperacillin Sod-Tazobactam So Hives 01/14/2018 Tazobactam High 07/06/2020 Other reaction(s): Pruritus Ketorolac Tromethamine Hives High 01/14/2018 Vancomycin High 06/29/2008 IV Vancomycin documented as of this encounter (statuses as of 12/11/2023) Medications Medication Sig Dispensed Refills Start Date [...] 03/06/2022 Active Vitamin D (Ergocalciferol) 1.25 MG (93440 UT) Oral Capsule (Drisdol) TAKE ONE CAPSULE [...] two weeks 30 Tablet 1 11/13/2023 Active Digital Fuel Ultra 2 w/Device Kit Use as directed to check blood sugar. 1 Kit 0 11/13/2023 Active Digital Fuel Ultra In Vitro Strip (Glucose Blood) Use as directed to check blood sugar. 100 Strip 3 11/13/2023 Active Digital Fuel Delica Plus [id number] Use as directed to test blood sugar. 100 Each 3 11/13/2023 Active Vitamin D3 50 MCG (2000 UT) Oral Capsule (Cholecalciferol)I ndications:Low vitamin D level Take 1 Capsule by mouth in the morning. 100 Capsule 3 11/15/2023 Active Fremanezumab-vfrm 225 MG/1.5ML Subcutaneous Solution Prefilled Syringe (SecondMic) Inject 1.5 mL under the skin every [...] hemoglobin A1c goal of less than 7.0% ([facility]) Inject 0.25mg under the skin once weekly for 4 weeks then increase to 0.5mg under the skin once weekly thereafter 9 mL 0 11/20/2023 Active Hospital, Clinic, or Other Facility Administered Medication Ordered Dose Route Frequency Start Date End Date Status vitamin b-12 (Cyanocobalamin) inj 1,000 mcgIndications:Intestinal postoperative nonabsorption,B12 deficiency 1000 mcg IM [id number] 11/20/2023 05/06/2024 Active documented as of this encounter (statuses as of 12/11/2023) Active Problems Problem Noted Date Diagnosed Date [...] tis 10/22/2008 Psoriatic arthropathy 05/20/2008 DOMINGUEZ RESEARCH OTHER*[id number] 03/23/2008 ADVANCE DIRECTIVE INFORMATION 09/06/2007 Overview: No, Advance Directive brochure offered , patient declined. documented as of this encounter (statuses as of 12/11/2023) Resolved Problems Problem Noted Date Diagnosed Date [...] as of this encounter (statuses as of 12/11/2023) Immunizations Name Administration Dates Next Due COVID-19 [...] encounter Miscellaneous Notes * Telephone Encounter - Princess Rosales RN - 12/11/2023 7:53 AM EDT Patient was scheduled for avsola ordered by Rachid Lara: please advise when/ if patient is ready [...] it appears the patient was admitted to [facility]. Scheduling: Please reach out to patient to reschedule infusion and remove from schedule today. NS:Please update beacon. documented in this encounter Plan of Treatment Upcoming Encounters Date Type Department Care Team (Late st Contact Info) Description 12/13/2023 2:00 PM EDT Nurse Only Nutrition & Weight Management, [facility] [address] [place] [address] Remy, [facility] [address] [place] [address] 01/01/2024 8:20 AM EDT Office Visit Sleep Disorders Ctr [facility] [address] [place] [phone] Anamaria Mott DO [address] [place] [address] 02/11/2024 2:00 PM EDT Office Visit Nutrition & Weight Management, [facility] [address] [place] [address] Torrie Nobles PA-C [address] [place] [address] 02/11/2024 3:10 PM EDT Nutrition Services Nutrition & Weight Management, [facility] [address] [place] [address] Sharon Zavala RDN [address] [place] [address] 02/13/2024 2:30 PM EDT Office Visit Rheumatology [facility] [address] [facility] [place] [address] Rachid Dean PA-C [email or web address] [place] [address] 04/03/2024 3:20 PM EDT Office Visit General Internal Medicine [facility] [address] [facility] [place] [address] Krystyna John MD [address] [facility] [place] [address] 10/27/2024 1:00 PM EST Imaging Radiology [address] [place] [address] Scheduled Procedures Name Priority Associated Diagnoses Date/Ti [...] 07/28/2020, Additional history exists GFR 10/04/2024 10/04/2023, 2 , 02/13/2023, Additional history exists TSH 10/04/2024 [...] this encounter Medical Devices Implanted Type Area Set Key Driver Device Identifier Shelf Expiration Date Model / Serial / Lot Knee Triathlon Bead No Jayce L 4 - [id number] Implanted:Qty: 1 on 02/28/2021 by Galileo Campuzano DO at OR [facility] Left: Knee ILEANA : ORTHOPAEDICS 12/07/2024 5517-F-401 / / [id number] Description:cruciate retaini ng femoral Implant Knee Patellar - [id number] Implanted:Qty: 1 on 02/28/2021 by Sobolewski, Galileo Leland, DO at OR [facility] Left: Knee ILEANA : ORTHOPAEDICS 01/06/2026 5556-L-319 / / [id number] Description:symmetric patell a Baseplate #4 Tritanium - [id number] Implanted:Qty: 1 on 02/28/2021 by Galileo Campuzano, DO at OR [facility] Left: Knee ILEANA : ORTHOPAEDICS 09/24/2025 5536-B-400 / / [id number] Description:tibial component Tiathlon X3 Tibial Bearing Insert-Cs Implanted:Qty: 1 on 02/28/2021 by Galileo Campuzano, DO at OR [facility] Left: Knee ILEANA : ORTHOPAEDICS 07/05/2024 5531-G-410 [...] the patient have Health Care Power of Hr Representative? Yes, not currently available Code Status History [...] and were consensually agreed upon. Care Teams Chicken Handler Relationship Specialty Start Date End Date Krystyna John MD [address] [place] [address], [place] [address] PCP - General Internal Medicine 12/06/21 documented as of this encounter
--- OUTSIDE RECORDS SUMMARY | 2023-12-25 22:14 | External Medical Summary ---
Author Name Unknown Address Unknown Organization [id number][place] [place] [address] [facility] [place] [address] Laboratory Report Ordering Provider Test Date Status MARYA BRENNAN 12/24/2023 14:46:46 Final Observation Date Value Abnormality Reference (Units ) Status Triglyceride 12/24/2023 14:46:46 130 <=174 ( mg/dL) Final Triglyceride Reference Range s (mg/dL):
<150 Acceptable
150-174 Borderline high
175-499 High
>=500 Very high Cholesterol 12/24/2023 14:46:46 192 <200 (mg /dL) Final Total Cholesterol Reference Ranges (mg/dL):
<200 Desirable
200-239 Borderline high
>=240 High HDL 12/24/2023 14:46:46 43 Below low normal >49 (mg/dL) Final HDL Cholesterol Reference Ra nges (mg/dL):
>=60 High (Desirable)
<50 Low (Undesirable) For Females
<40 Low (Undesirable) For Males NON-HDL CHOLESTEROL 12/24/2023 14:46:46 149 <=159 (mg/dL) Final Non-HDL Cholesterol Referenc e Range (mg/dL):
<100 Target level for high risk ASCVD patient
<130 Optimal for general population
130-159 Near optimal for general population
160-189 Borderline High
190-219 High
>=220 Very High LDL, (calculated) 12/24/2023 14:46:46 123 <= 129 (mg/dL) Final LDL Cholesterol Reference Ra nges (mg/dL):
<70 Target level for high risk ASCVD patient
<100 Optimal for general population
100-129 Near optimal for general population
130-159 Borderline high
160-189 High
>=190 Very high Performing Location [facility] [place] [address] [facility] [address]
--- OUTSIDE RECORDS SUMMARY | 2023-12-25 22:14 | External Medical Summary ---
Author Name Unknown Address Unknown Organization [id number] [address] [place] [address] Laboratory Report Ordering Provider Test Date Status MARYA BRENNAN 12/24/2023 14:46:46 Final Observation Date Value Abnormality Reference (Units ) Status SYNC LEUKOCYTES IN BLOOD BY AUTOMATED COUNT 12/24/2023 14:46:46 7.42 4.00-10.80 (K/uL) Final Segs 12/24/2023 14:46:46 54.9 40.0-75.0 (%) Final Lymphs % 12/24/2023 14:46:46 29.4 18.0-42.0 (%) Final Monos 12/24/2023 14:46:46 14.3 Above high normal 1.0-11.0 (%) Final Eosinophils 12/24/2023 14:46:46 0.9 0.0-6.0 (%) Final Basos 12/24/2023 14:46:46 0.5 0.0-2.0 (%) Final Absolute Segs 12/24/2023 14:46:46 4.07 1.80-7.70 (K/uL) Final Lymphs, absolute 12/24/2023 14:46:46 2.18 1.00-4.80 (K/ul) Final Monos, Abs 12/24/2023 14:46:46 1.06 0.00-1.10 (K/uL) Final Eos, Abs 12/24/2023 14:46:46 0.07 0.00-0.70 (K/uL) Final Basos, Abs 12/24/2023 14:46:46 0.04 0.00-0.20 (K/uL) Final Performing Location LABORATORY [facility] [place] [address] - [address] [place] [address]
--- OUTSIDE RECORDS SUMMARY | 2023-12-25 22:14 | External Medical Summary ---
Author Name Unknown Address Unknown Organization K01[place] [place] [address] [place] [address] Laboratory Report Ordering Provider Test Date Status OLGA LIDIA WHITEHEAD 12/24/2023 14:46:46 Final Observation Date Value Abnormality Reference (Units ) Status MYCODE SPECIMEN-SST 12/24/2023 14:46:46 Freezing of extracted DNA, whole blood and/or serum. Final Performing Location LABORATORY C - [address] [place] [address]
--- OUTSIDE RECORDS SUMMARY | 2023-12-25 22:14 | External Medical Summary | Summary of Care ---
Author Name Unknown Organization [facility] Address [address] [place] [facility] [place] [place] [address] Phone [phone] Care Team Providers Care Cartography Supervisor Name Role Phone Krystyna John MD Primary Care Provider + Reason for Visit * Reason Onset Date Comments Pre Op Discussion 09/06/2023 Encounter Details Date Type Department Care Team (Late st Contact Info) Description 09/06/2023 Telephone OR [facility], Operating Room [facility] [address] [facility] [place] [address] Rama Chandra MD [address] [place] [address] [place] [id number] Pre Op Discussion Allergies Active Allergy Reactions Criticality Noted Date Comments Oxycodone High 07/06/2020 Other reaction(s): Hives Oxycodone-Acetaminophen Itching High 06/02/2011 Piperacillin Sod-Tazobactam So Hives 01/14/2018 Tazobactam High 07/06/2020 Other reaction(s): Pruritus Ketorolac Tromethamine Hives High 01/14/2018 Vancomycin High 06/29/2008 IV Vancomycin documented as of this encounter (statuses as of 12/06/2023) Medications Medication Sig Dispensed Refills Start Date End Date Status Acetaminophen 325 MG Oral Tablet Take 2 Tablets by mouth every 4 hours as needed for Fever >38C(100.5F), Pain, Mild, Pain, Moderate or Pain, Severe. 100 Tab 1 1 Active LORazepam 0.5 MG Oral Tablet (Ativan)Indicati ons:Panic attack Take 1 Tab by mouth daily as needed for Anxiety. can try second dose in an hour if needed 20 Tab 0 1 Active Divalproex Sodium 250 MG Oral Tablet Delayed Release (Depakote DR) Take 3 Tabs by mouth at bedtime. 300 Tab 3 1 Active SUMAtriptan Succinate 50 MG Oral Tablet (Imitrex)Indicat ions:Migraine with aura and without status migrainosus, not intractable TAKE 1 TABLET AT ONSET OF HEADACHE MAY REPEAT IN 2 HOURS MAX OF 2 TABLETS IN 24 HOURS This is a 3 month supply 27 Tab 3 1 Active Spacer/Aero-Hold ing Chambers DeviceIndication s:Acute bronchitis, antibiotics not indicated Use with inhaler. 1 Each 0 2 Active Compressor Nebulizer Inhale via nebulizer . Use as directed. 1 Each 1 2 Active Ipratropium-Albu terol 0.5-2.5 (3) MG/3ML Inhalation Solution (Duoneb) Inhale via nebulizer 3 mL in the morning AND 3 mL at noon AND 3 mL in the evening AND 3 mL before bedtime. 90 mL 3 2 Active Additional Information Patient taking differently:3 mL Nebulizer QID(AM/NOON/PM/HS),As needed, Reported on 04/12/2023 Ferrous Sulfate 325 (65 Fe) MG Oral Tablet (Feosol) Take by mouth 1 Tablet in the morning. 90 Tablet 0 2 Active Vitamin D (Ergocalciferol) 1.25 MG (79816 UT) Oral Capsule (Drisdol) TAKE ONE CAPSULE BY MOUTH TWICE WEEKLY 50 Capsule 1 3 01/31/20 24 Active busPIRone HCl 15 MG Oral Tablet (Buspar) Take 0.5 Tablets by mouth in the morning and 0.5 Tablets before bedtime. 45 Tablet 3 3 Active Albuterol Sulfate HFA 108 (90 Base) MCG/ACT Inhalation Aerosol Solution Inhale 2 Puffs by mouth every 4 hours as needed for Cough. Through spacer 54 g 1 3 Active Pantoprazole Sodium 40 MG Oral Tablet Delayed Release (Protonix) Take 1 Tab by mouth 2 times a day. 180 Tab 1 1 11/06/19 24 Discontinued(Ref ill) DULoxetine HCl 30 MG Oral Capsule Delayed Release Particles (Cymbalta)Indica tions:Moderate episode of recurrent major depressive disorder (HCC) Take 1 Cap by mouth 2 times a day. Do not cut, crush or chew 200 Cap 1 1 10/04/19 24 Discontinued(Med ication/Dose Changed) Levothyroxine Sodium 25 MCG Oral Tablet (Levoxyl)Indicat ions:Hypothyroid ism, unspecified type TAKE 1 TAB BY MOUTH DAILY. (AT LEAST 30 MIN PRIOR TO BREAKFAST OR OTHER MEDS) 100 Tab 1 1 10/04/19 24 Discontinued(Ref ill) Dicyclomine HCl 10 MG Oral Capsule (Bentyl) Take 1 Cap by mouth daily. 100 Cap 3 1 11/06/19 24 Discontinued(Ref ill) Magnesium 400 MG Oral Capsule Take 1 Cap by mouth daily. 100 Cap 3 1 10/04/19 24 Discontinued(Ref ill) Propranolol HCl ER 60 MG Oral Capsule Extended Release 24 Hour (Inderal LA) Take 1 Cap by mouth daily. 100 Cap 2 1 11/06/19 24 Discontinued(Ref ill) Vitamin D3 50 MCG (1999 UT) Oral CapsuleIndicatio ns:Low vitamin D level Take 1 Cap by mouth daily. 100 Cap 3 1 11/15/19 24 Discontinued(Ref ill) Ajovy 225 MG/1.5ML Subcutaneous Solution Prefilled Syringe (Fremanezumab-vf )Indications:I ntractable chronic migraine without aura and without status migrainosus Inject 1.5 mL under the skin Every Month. 4.5 mL 3 3 11/20/19 24 Discontinued Montelukast Sodium 10 MG Oral Tablet (Singulair)Indic ations:Chronic cough TAKE ONE TABLET BY MOUTH EVERY MORNING. 30 Tablet 5 3 11/13/19 24 Promethazine HCl 25 MG Oral Tablet (Phenergan)Indic ations:Nausea TAKE 1 TABLET BY MOUTH TWICE DAILY NEEDED 180 Tablet 0 3 09/07/20 23 Discontinued(Ref ill) predniSONE 20 MG Oral Tablet (Deltasone) Take 1 Tablet by mouth in the morning for 5 days. 5 Tablet 0 3 11/13/19 24 Discontinued Benzonatate 100 MG Oral Capsule Take 1 Capsule by mouth 3 times a day as needed for Cough. 30 Capsule 1 3 10/04/19 24 Discontinued traZODone HCl 150 MG Oral Tablet (Desyrel) Take 2 tablets by mouth at bedtime. May take additional 1/2 tablet if needed. 250 Tablet 0 3 11/12/19 24 Discontinued(Ref ill) Azithromycin 250 MG Oral Tablet (Zithromax Z-Pankaj)Indication s:Non-recurrent acute suppurative otitis media of right ear without spontaneous rupture of tympanic membrane Take two tablets by mouth on first day, then 1 tablet daily until gone 6 Tablet 0 3 10/04/19 24 Discontinued Hospital, Clinic, or Other Facility Administered Medication Ordered Dose Route Frequency Start Date End Date Status Albuterol Sulfate (Proventil) (5 MG/ML) 0.5% *conc* inhalation solution 2.5 mgIndications:Chron ic cough 2.5 mg NEBULIZER PRN 10/30/2022 4 Ended Albuterol Sulfate (Proventil) (2.5 MG/3ML) 0.083% inhalation solution 2.5 mgIndications:Chron ic cough 2.5 mg NEBULIZER PRN 10/30/2022 4 Ended vitamin b-12 (Cyanocobalamin) inj 1,000 mcgIndications:Inte stinal postoperative nonabsorption 1000 mcg IM [id number] 04/12/2023 4 Discontinued vitamin b-12 (Cyanocobalamin) inj 1,000 mcgIndications:B12 deficiency 1000 mcg IM [id number] 07/03/2023 4 Discontinued documented as of this encounter (statuses as of 12/06/2023) Active Problems Problem Noted Date Diagnosed Date [...] tis 10/22/2008 Psoriatic arthropathy 05/20/2008 DOMINGUEZ RESEARCH OTHER*[id number] 03/23/2008 ADVANCE DIRECTIVE INFORMATION 09/06/2007 Overview: No, Advance Directive brochure offered , patient declined. documented as of this encounter (statuses as of 12/06/2023) Resolved Problems Problem Noted Date Diagnosed Date [...] as of this encounter (statuses as of 12/06/2023) Immunizations Name Administration Dates Next Due COVID-19 [...] Team (Late st Contact Info) Description 12/10/2023 9:30 AM EDT Hem/Onc Treatment Hematology/Oncology Treatment, [place] [address] [place] [address] 12/13/2023 2:00 PM EDT Nurse Only Nutrition & Weight Management, [facility] [address] [place] [address] Nurse Remy Gi Nutrition [facility] [address] [facility] [place] [address] 01/01/2024 8:20 AM EDT Office Visit Sleep Disorders Ctr [facility] [address] [place] [phone] Anamaria Mott DO [address] [place] [address] 02/11/2024 2:00 PM EDT Office Visit Nutrition & Weight Management, [facility] [address] [place] [address] Torrie Nobles PA-C [address] [place] [address] 02/11/2024 3:10 PM EDT Nutrition Services Nutrition & Weight Management, [facility] [address] [place] [address] Sharon Zavala RDN [address] [place] [address] 02/13/2024 2:30 PM EDT Office Visit Rheumatology [place] [address] [facility] [place] [address] Rachid Dean [facility] [place] [address] 04/03/2024 3:20 PM EDT Office Visit General Internal Medicine [facility] [place] [address] [place] [address] Krystyna John MD [address] [place] [address] 10/27/2024 1:00 PM EST Imaging Radiology [facility], [place] [address] [place] [address] Scheduled Procedures Name Priority Associated Diagnoses Date/Ti [...] Exam 03/29/2024 03/29/2023, 10/22/2008 HbA1c 04/03/2024 10/04/2023, 072 , 03/02/2022, Additional history exists Mammogram 04/05/2024 04/05/2023, 072 03/2023, 07/28/2020, Additional history exists GFR 10/04/2024 10/04/2023, 07/2 , 02/13/2023, Additional history exists TSH 10/04/2024 10/04/2023, 072 , 03/02/2022, Additional history exists DTaP,Tdap,and Td [...] this encounter Medical Devices Implanted Type Area Associate Professor Of Kinesiology Device Identifier Shelf Expiration Date Model / Serial / Lot Knee Triathlon Bead No Jayce L 4 - [id number] Implanted:Qty: 1 on 02/28/2021 by Galileo Campuzano, DO at OR [facility] Left: Knee ILEANA : ORTHOPAEDICS 12/07/2024 5517-F-401 / / [id number] Description:cruciate retaini ng femoral Implant Knee Patellar - [id number] Implanted:Qty: 1 on 02/28/2021 by Galileo Campuzano DO at OR [facility] Left: Knee ILEANA : ORTHOPAEDICS 01/06/2026 5556-L-319 / / [id number] Description:symmetric patell a Baseplate #4 Tritanium - [id number] Implanted:Qty: 1 on 02/28/2021 by Galileo Campuzano DO at OR [facility] Left: Knee ILEANA : ORTHOPAEDICS 09/24/2025 5536-B-400 / / [id number] Description:tibial component Tiathlon X3 Tibial Bearing Insert-Cs Implanted:Qty: 1 on 02/28/2021 by Galileo Campuzano, DO at OR [facility] Left: Knee ILEANA : ORTHOPAEDICS 07/05/2024 5531-G-410 -[id number] / / [id number] Description:tibial bearing i nsert documented as of this encounter Additional Health Concerns Infection Onset Date Last Indicated Resolved Time ((Group A Strep) Strep pyogenes) 11/04/2022 11/04/19 23 COVID-19 (confirmed) 08/31/2023 08/31/2023 024 12:21 AM EST documented as of this encounter Advance Directives [...] the patient have Health Care Power of Hand Cloth Examiner? Yes, not currently available Code Status History [...] and were consensually agreed upon. Care Teams Cartography Supervisor Relationship Specialty Start Date End Date Krystyna John MD [address] [facility] [place] [address] PCP - General Internal Medicine 12/06/21 documented as of this encounter
[2023-12-25 22:18] LABS: Adenovirus PCR Not Detected (NotDetected); Bordetella parapertussis PCR Not Detected (NotDetected); Bordetella pertussis PCR Not Detected (NotDetected); Chlamydia pneumoniae PCR Not Detected (NotDetected); Coronavirus 229E PCR Not Detected (NotDetected); Coronavirus CoV-2 (COVID19)PCR Not Detected (NotDetected); Coronavirus HKU1 PCR Not Detected (NotDetected); Coronavirus NL63 PCR Not Detected (NotDetected); Coronavirus OC43PCR Not Detected (NotDetected); Human Metapneumovirus PCR Not Detected (NotDetected); Influenza A PCR Not Detected (NotDetected); Influenza B PCR Not Detected (NotDetected); Mycoplasma pneumoniae PCR Not Detected (NotDetected); Parainfluenza Virus 1 PCR Not Detected (NotDetected); Parainfluenza Virus 2 PCR Not Detected (NotDetected); Parainfluenza Virus 3 PCR Not Detected (NotDetected); Parainfluenza Virus 4 PCR Not Detected (NotDetected); Respiratory Syncytial VirusPCR Not Detected (NotDetected); Rhinovirus/Enterovirus PCR Not Detected (NotDetected)
[2023-12-26] MEDS: ACETAMINOPHEN 1,000 MG/100 ML VIAL IV STA (01:26)
[2023-12-26] MEDS: LABETALOL HCL IV 5 MG/ML 20ML IV STA (03:07)
--- NOTE | 2023-12-26 03:39 | History & Physical Report ---
Date of Service December 26, 2023 Assessment & Plan (1) Fatigue: Plan: 58-year-old female with past medical history significant for type 2 diabetes, hypothyroidism, mild intermittent asthma, GERD, morbid obesity, psoriatic arthropathy, migraine, iron deficiency anemia, depression, history of gastric bypass, history of pulmonary embolism, history of C. difficile infection, history of panic attack was recently in the hospital for fever and bodyaches and workup showed EBV serology positive. She also found to have transaminitis mild CBD dilatation thought to be from history of cholecystectomy and MRCP did not show any acute changes and improvement in transaminitis noted and she was also treated for possible pneumonia with antibiotics, had hypxia thought to be from pneumonia.And also she had prednisone taper for psoriatic arthritis and was discharged to rehab . Says she came back home 1 week ago. Again she was feeling very weak, exhausted, body aches, nauseous poor appetite, not feeling well which prompted her to come to the ER again today. Has headache. Has neck pain. Has back pain. Denies any chest pain or shortness of breath. Has mild left upper quadrant abdominal pain. Normal bowel and bladder movements. No cough. No sore throat. No difficulty swallowing. Hemodynamics are okay. With ongoing symptoms she is worried about her recent infection. She also has some ambulatory dysfunction not able to ambulate much because of pain in the lower extremities and also weakness in his left lower extremity which is not new which has been there last admission and MRI was done last admission to check for multiple sclerosis and it was okay. Q fever workup was also done which is pending at time of discharge which came back negative. Currently hemodynamics are okay Fatigue Exhaustion Body aches Poor appetite Recent EBV infection Labs are okay Respiratory bio fire negative CT abdomen pelvis no acute findings Gentle fluids Consult ID for any recommendations for workup for complications from EBV Lower extremity weakness More in the left lower extremity Ambulatory dysfunction States present since last admission Last admission MRI was okay Can consider neuroconsult PT OT Type 2 diabetes On Ozempic Sliding scale Will monitor Psoriatic arthritis Recently treated with prednisone taper for flare Will monitor GERD PPI Depression Continue home meds Hypothyroidism On Synthyroid TSH is okay DVT prophylaxis Lovenox Disposition Medical floor Full code History of Present Illness Chief Complaint: Recent EBV ,weakness Primary Care Provider: Krystyna John MD 58-year-old female with past medical history significant for type 2 diabetes, hypothyroidism, mild intermittent asthma, GERD, morbid obesity, psoriatic arthropathy, migraine, iron deficiency anemia, depression, history of gastric bypass, history of pulmonary embolism, history of C. difficile infection, history of panic attack was recently in the hospital for fever and bodyaches and workup showed EBV serology positive. She also found to have transaminitis mild CBD dilatation thought to be from history of cholecystectomy and MRCP did not show any acute changes and improvement in transaminitis noted and she was also treated for possible pneumonia with antibiotics, had hypxia thought to be from pneumonia.And also she had prednisone taper for psoriatic arthritis and was discharged to rehab . Says she came back home 1 week ago. Again she was feeling very weak, exhausted, body aches, nauseous poor appetite, not feeling well which prompted her to come to the ER again today. Has headache. Has neck pain. Has back pain. Denies any chest pain or shortness of breath. Has mild left upper quadrant abdominal pain. Normal bowel and bladder movements. No cough. No sore throat. No difficulty swallowing. Hemodynamics are okay. With ongoing symptoms she is worried about her recent infection. She also has some ambulatory dysfunction not able to ambulate much because of pain in the lower extremities and also weakness in his left lower extremity which is not new which has been there last admission and MRI was done last admission to check for multiple sclerosis and it was okay. Q fever workup was also done which is pending at time of discharge which came back negative. Currently hemodynamics are okay Past medical history. As mentioned above Past surgical history. Left total knee arthroplasty. Cardiac cath. Carpal tunnel surgery bilaterally. Open cholecystectomy. Colonoscopy and EGD. ,panniculectomy,. Gastric revision for obesity. Knee arthroscopy. Right knee synovectomy. Right total knee replacement. Bryan tooth removal. Total abdominal hysterectomy with tubes. Which biopsy of liver. Social history. . No smoking. No alcohol use. No drug use. Family history. Father had cancer. Aunt has psoriatic arthritis. Sister has asthma. Daughter has blood disorder. Fibromyalgia. Multiple sclerosis. Allergies Allergy/AdvReac Type Severity Reaction Status Date / Time ketorolac Allergy Intermediate Itching Verified 12/25/23 19:57 oxycodone Allergy Intermediate Hives Verified 12/25/23 19:57 piperacillin Allergy Intermediate Pruritus Verified 12/25/23 19:57 tazobactam Allergy Intermediate Pruritus Verified 12/25/23 19:57 vancomycin AdvReac Severe deathly ill Verified 12/25/23 19:57 Home Medications Medication Instructions Recorded Confirmed Type ergocalciferol (vitamin D2) 1,250 50,000 units PO 2XWK 07/17/18 12/25/23 History mcg (50,000 unit) capsule (Vitamin D2) levothyroxine 25 mcg tablet 25 mcg PO DAILYBB 07/17/18 12/25/23 History (Synthroid) magnesium oxide 400 mg PO QAM 07/17/18 12/25/23 History pantoprazole 40 mg tablet,delayed 40 mg PO BID 07/17/18 12/25/23 History release (Protonix) sumatriptan succinate 50 mg tablet 50 mg PO DIRECTED PRN Migraine 07/17/18 12/25/23 History (Imitrex) Headache divalproex 250 mg tablet,extended 750 mg PO HS 11/06/19 12/25/23 History release 24 hr (Depakote ER) cholecalciferol (vitamin D3) 50 2,000 unit PO QAM 03/31/20 12/25/23 History mcg (2,000 unit) capsule (Vitamin D3) propranolol 60 mg capsule,24 60 mg PO QAM 03/31/20 12/25/23 History hr,extended release (Inderal LA) promethazine 25 mg tablet 25 mg PO TID PRN Nausea And 07/06/20 12/25/23 History Vomiting trazodone 150 mg tablet 300 mg PO HS 01/02/21 12/25/23 History ferrous sulfate 325 mg (65 mg 325 mg PO QAM 01/24/22 12/25/23 History iron) tablet montelukast 10 mg tablet 10 mg PO QAM 02/02/23 12/25/23 History buspirone 15 mg tablet 7.5 mg PO BID 12/06/23 12/25/23 History calcium 325 mg-vit D3 12.5 1 tab PO DAILY 12/06/23 12/25/23 History mcg-zinc 2.75 mw-[id number]-tqtcxdqoq tablet (Citracal-D3 Maximum Plus) dicyclomine 10 mg capsule 10 mg PO DAILY 12/06/23 12/25/23 History duloxetine 60 mg capsule,delayed 60 mg PO DAILY 12/06/23 12/25/23 History release fremanezumab-vfrm 225 mg/1.5 mL 225 mg subcut MONTHLY 12/06/23 12/25/23 History subcutaneous syringe (Ajovy Syringe) multivitamin 1 tab PO DAILY 12/06/23 12/25/23 History semaglutide 0.25 mg or 0.5 mg (2 0.25 mg subcut WK 12/06/23 12/25/23 History mg/3 mL) subcutaneous pen injector (Ozempic) Past Med/Surg History Medical History DM II (diabetes mellitus, type II), controlled History of gastric ulcer Hypothyroidism Vertigo Clostridium difficile colitis Psoriatic arthritis History of DVT (deep vein thrombosis) History of pulmonary embolism "completed 6 months Coumadin therapy" On 06/27/16 17:03 Nuha Zarate wrote On 03/23/16 16:22 Dottie Montilla wrote "2000 per patient; s/p knee replacement" MINI (iron deficiency anemia) Sleep apnea Depression GERD (gastroesophageal reflux disease) Surgical History History of cholecystectomy History of appendectomy S/P hysterectomy History of carpal tunnel surgery H/O wisdom tooth extraction Status post total knee replacement Status post gastric bypass for obesity Status post cholecystectomy Status post appendectomy Family History Mother Rheumatoid arthritis Father Cancer blood cancer Denies family history of Hypertension Social History Smoking Status: Never smoker Second Hand Exposure: No; Do You Dip or Chew Tobacco: No; Hx Alcohol Use: No Hx Substance Use: No Preferred Language: Irish Communication Ability: Effective Cylinder Worker Required: No Beliefs That Will Affect Care: None marital status: Current Living Situation: Spouse and Family Current Living Situation Comment: and daughter Feels Safe at Home: Yes Safety Concerns: Feels Safe At This Time Assistive Devices: Walker Review of Systems Review of Systems: All systems reviewed & are unremarkable except as noted in HPI & below Physical Exam Physical Exam: General- adult Head- Not in distress Eyes- PERRL. ENT- oropharynx clear Neck- supple, no JVD. Lungs- clear to auscultation no wheezing or crackles Heart- regular rate and rhythm; no murmur, no gallop. Abdomen- normal bowel sounds, soft, mild luq tenderness, no distension. Extremities- mild pretibial edema present, weakness of left lower extremity Neuro- alert, oriented PERRL, ; no facial palsy; no dysarthria; power 4/5 rt lower extremity 3/5 left lower extremity; Skin- warm & dry Results & Data Results & Data Vital Signs (Past 12 Hours) Vital Signs Temp Pulse Pulse Resp BP BP Pulse Ox 12/26/23 02:16 72 22 153/92 H 95 12/26/23 01:13 73 24 184/107 H 93 12/25/23 23:20 86 12/25/23 22:39 92 12/25/23 21:00 80 24 120/80 94 12/25/23 20:30 77 20 139/81 95 12/25/23 20:20 81 20 89 L 12/25/23 20:00 77 20 131/84 92 12/25/23 19:30 76 19 137/94 93 12/25/23 19:26 75 12/25/23 17:50 36.5 C 77 18 141/93 H 96 12/25/23 15:02 37.0 C 102 H 16 164/87 H 95 O2 Del Method O2 Flow Rate 12/26/23 02:16 Nasal Cannula 2 12/26/23 01:13 Nasal Cannula 2 12/25/23 23:20 12/25/23 22:39 Room Air 12/25/23 21:00 Nasal Cannula 2 12/25/23 20:30 Nasal Cannula 2 12/25/23 20:20 Room Air 12/25/23 20:00 Room Air 12/25/23 19:30 Room Air 12/25/23 19:26 12/25/23 17:50 Room Air 12/25/23 15:02 Room Air Diagnostic Findings Laboratory Results WBC 9.09 K/ul (4.8-10.8) 12/25/23 15:52 RBC 4.52 M/uL (4.20-5.40) 12/25/23 15:52 Hgb 13.6 g/dl (12.0-16.0) 12/25/23 15:52 Hct 41.3 % (37.0-47.0) 12/25/23 15:52 MCV 91.4 fL (80.0-100.0) 12/25/23 15:52 MCH 30.1 pg (25.0-34.0) 12/25/23 15:52 MCHC 32.9 g/dL (32.0-36.0) 12/25/23 15:52 RDW Std Deviation 45.9 fL (36.4-46.3) 12/25/23 15:52 RDW Coeff of Halley 13.7 % (11.5-14.5) 12/25/23 15:52 Plt Count 404 K/uL (130-400) H 12/25/23 15:52 MPV 9.4 fL (9.4-12.4) 12/25/23 15:52 Immature Gran % (Auto) 0.2 % 12/25/23 15:52 Neut % (Auto) 59.6 % 12/25/23 15:52 Lymph % (Auto) 26.2 % 12/25/23 15:52 Nicholas % (Auto) 12.5 % 12/25/23 15:52 Eos % (Auto) 0.8 % 12/25/23 15:52 Baso % (Auto) 0.7 % 12/25/23 15:52 Neut # (Auto) 5.42 K/uL (1.40-6.50) 12/25/23 15:52 Lymph # (Auto) 2.38 K/uL (1.20-3.40) 12/25/23 15:52 Nicholas # (Auto) 1.14 K/uL (0.11-0.59) H 12/25/23 15:52 Eos # (Auto) 0.07 K/uL (0.00-0.50) 12/25/23 15:52 Baso # (Auto) 0.06 K/uL (0.00-0.20) 12/25/23 15:52 Immature Gran # (Auto) 0.02 K/uL (0.01-0.20) 12/25/23 15:52 Sodium 137 mmol/L (136-145) 12/25/23 15:52 Potassium 3.6 mmol/L (3.5-5.1) 12/25/23 15:52 Chloride 102 mmol/L (98-107) 12/25/23 15:52 Carbon Dioxide 26 mmol/L (21-32) 12/25/23 15:52 Anion Gap 9 (3-11) 12/25/23 15:52 BUN 9 mg/dl (6-23) 12/25/23 15:52 Creatinine 0.68 mg/dl (0.6-1.2) 12/25/23 15:52 Est Cr Clr Drug Dosing 97.5 ml/min 12/25/23 15:52 Est GFR ( Amer) 110.2 ml/min 12/25/23 15:52 Est GFR (Non-Af Amer) 95.1 ml/min 12/25/23 15:52 BUN/Creatinine Ratio 13.2 (10-20) 12/25/23 15:52 Glucose 88 mg/dl (70-99(Fasting)) 12/25/23 15:52 Calcium 9.2 mg/dl (8.6-10.3) 12/25/23 15:52 Magnesium 2.2 mg/dl (1.7-2.4) 12/25/23 15:52 Total Bilirubin 0.4 mg/dl (0.2-1.0) 12/25/23 15:52 AST 23 U/L (13-39) 12/25/23 15:52 ALT 21 U/L (7-52) 12/25/23 15:52 Alkaline Phosphatase 93 U/L (34-104) 12/25/23 15:52 Total Creatine Kinase 44 U/L (26-192) 12/25/23 15:52 Troponin I High Sens 3.3 pg/ml (0-14) 12/25/23 15:52 Total Protein 7.3 gm/dl (6.0-8.3) 12/25/23 15:52 Albumin 4.4 gm/dl (3.4-5.0) 12/25/23 15:52 Globulin 2.9 gm/dl (2.5-4.0) 12/25/23 15:52 Albumin/Globulin Ratio 1.5 (0.9-2) 12/25/23 15:52 Lipase 6 U/L (11-82) L 12/25/23 15:52 TSH 1.765 uIu/ml (0.300-4.500) 12/25/23 15:52 Urine Color Yellow 12/25/23 Unknown Urine Appearance Clear (Clear) 12/25/23 Unknown Urine pH 6.5 (4.5-7.5) 12/25/23 Unknown Ur Specific [place] 1.008 (1.000-1.030) 12/25/23 Unknown Urine Protein Negative (Negative) 12/25/23 Unknown Urine Glucose (UA) Negative (Negative) 12/25/23 Unknown Urine Ketones Negative (Negative) 12/25/23 Unknown Urine Blood Negative (Negative) 12/25/23 Unknown Urine Nitrite Negative (Negative) 12/25/23 Unknown Urine Bilirubin Negative (Negative) 12/25/23 Unknown Urine Urobilinogen Negative (Negative) 12/25/23 Unknown Ur Leukocyte Esterase Negative (Negative) 12/25/23 Unknown Adenovirus (PCR) Not Detected (NotDetected) 12/25/23 20:30 B. pertussis DNA (PCR) Not Detected (NotDetected) 12/25/23 20:30 B.parapertussis DNA PCR Not Detected (NotDetected) 12/25/23 20:30 C. pneumoniae DNA (PCR) Not Detected (NotDetected) 12/25/23 20:30 Coronavirus OC43 (PCR) Not Detected (NotDetected) 12/25/23 20:30 Coronavirus HKU1 (PCR) Not Detected (NotDetected) 12/25/23 20:30 Coronavirus 229E (PCR) Not Detected (NotDetected) 12/25/23 20:30 SARS-CoV-2 (PCR) Not Detected (NotDetected) 12/25/23 20:30 Coronavirus NL63 (PCR) Not Detected (NotDetected) 12/25/23 20:30 Human Metapneumovir PCR Not Detected (NotDetected) 12/25/23 20:30 Influenza Type A (PCR) Not Detected (NotDetected) 12/25/23 20:30 Influenza Type B (PCR) Not Detected (NotDetected) 12/25/23 20:30 M. pneumoniae (PCR) Not Detected (NotDetected) 12/25/23 20:30 Parainfluenza 1 (PCR) Not Detected (NotDetected) 12/25/23 20:30 Parainfluenza 2 (PCR) Not Detected (NotDetected) 12/25/23 20:30 Parainfluenza 3 (PCR) Not Detected (NotDetected) 12/25/23 20:30 Parainfluenza 4 (PCR) Not Detected (NotDetected) 12/25/23 20:30 RSV (PCR) Not Detected (NotDetected) 12/25/23 20:30 Entero/Rhino (PCR) Not Detected (NotDetected) 12/25/23 20:30 Impressions Abdomen/Pelvis CT 12/25/23 15:05 CT SCAN OF THE ABDOMEN AND PELVIS WITH IV CONTRAST CLINICAL HISTORY: Generalized abdominal pain. COMPARISON STUDY: Abdominal CT dated 02/02/2023. TECHNIQUE: Following the IV administration of 93 cc of Optiray 320, CT scan of the abdomen and pelvis is performed from the lung bases to the proximal femora. Images are reviewed in the axial, sagittal, and coronal planes. IV contrast was administered without complication. A dose lowering technique was utilized adhering to the principles of ALARA. CT DOSE: 1498.32 mGy.cm FINDINGS: Lung bases: The heart is normal in size and without pericardial effusion. The lung bases are clear noting mild dependent atelectasis. Liver: The contrast-enhanced liver is enlarged, measuring 20.3 cm in length. The liver demonstrates diffusely diminished attenuation indicating steatosis. There is no intrahepatic biliary ductal dilatation. The hepatic veins and portal veins are patent. Gallbladder: Surgically absent noting clips in the gallbladder fossa. Spleen: Normal in size and attenuation. There are scattered calcified granulomas. Pancreas: Atrophic and grossly unremarkable. Adrenal glands: Unremarkable. Kidneys: The contrast enhanced kidneys are normal in size and without hydronephrosis. The kidneys enhance symmetrically. Abdominal vasculature: The abdominal aorta is normal in course and caliber. Stomach and bowel: There is a small hiatal hernia. Postsurgical changes consistent with a Neel-en-Y gastric bypass procedure. There is no bowel obstruction. The appendix is not identified and reported surgically absent. Peritoneum: There is no intraperitoneal free air or abdominal ascites. There is a fat-containing umbilical hernia. Lymphadenopathy: None. Pelvic viscera: The bladder is normal as visualized. The uterus is surgically absent. No adnexal lesion is seen. Skeletal structures: The skeletal structures are osteopenic. There is mild to moderate lumbosacral spondylosis as well as mild scoliosis. No lytic or blastic lesions are seen. IMPRESSION: 1. No acute infectious or inflammatory findings are identified in the abdomen or pelvis. 2. Postsurgical change is consistent with a Neel-en-Y gastric bypass procedure. There is no bowel obstruction. 3. The liver is enlarged and mildly steatotic. 4. Additional findings as above. ACT 112: Negative or not required by law. Electronically signed by: Zander Humphrey M.D. 12/25/2023 6:12 PM Code Status & VTE Plan VTE Prophylaxis Plan VTE Prophylaxis will be ordered: Yes
[2023-12-26] MEDS ORDERED: DEXTROSE 50% 50 ML SYRINGE IV PRN (05:10)
[2023-12-26] MEDS ORDERED: CARBOHYDRATES FOR HYPOGLYCEMIA PO PRN (05:10)
[2023-12-26] MEDS ORDERED: POLYETHYLENE (MIRALAX) 17 GM PACK PO PRN (05:10)
[2023-12-26] MEDS ORDERED: GLUCOSE 10 TAB/TUBE PO PRN (05:10)
[2023-12-26] MEDS ORDERED: GLUCAGON FOR INJ 1 MG VIAL SQ PRN (05:10)
[2023-12-26] MEDS ORDERED: GLUCOSE 40% GEL 15 GM TUBE PO PRN (05:10)
[2023-12-26] MEDS: SODIUM CHLORIDE 0.9% 1,000 ML IV SCH (05:17)
[2023-12-26] MEDS: ONDANSETRON INJ 2 MG/ML 2 ML VIAL IV PRN (05:25)
[2023-12-26] MEDS: ENOXAPARIN INJ 40 MG/0.4 ML SYR SQ SCH (05:52)
[2023-12-26] MEDS: LEVOTHYROXINE SODIUM 25 MCG TABLET PO SCH (05:52)
--- OUTSIDE RECORDS SUMMARY | 2023-12-26 06:13 | External Medical Summary | Summary of Care ---
Author Name Unknown Organization [facility] Address [address] [place] [address] Phone [phone] Care Team Providers Care Sewer Digger Name Role Phone Krystyna John MD Primary Care Provider + Reason for Visit * Reason Onset Date Comments Advice 12/25/2023 Encounter Details Date Type Department Care Team (Late st Contact Info) Description 12/25/2023 Telephone General Internal Medicine [facility] [address] [facility] [place] [address] Krystyna John MD [address] [facility] [place] [address] Advice Allergies Active Allergy Reactions Criticality Noted [...] 03/06/2022 Active Vitamin D (Ergocalciferol) 1.25 MG (24655 UT) Oral Capsule (Drisdol) TAKE ONE CAPSULE [...] two weeks 30 Tablet 1 11/13/2023 Active OnMyBlock Ultra 2 w/Device Kit Use as directed to check blood sugar. 1 Kit 0 11/13/2023 Active OnMyBlock Ultra In Vitro Strip (Glucose Blood) Use as directed to check blood sugar. 100 Strip 3 11/13/2023 Active OnMyBlock Delica Plus [id number] Use as directed to test blood sugar. 100 Each 3 11/13/2023 Active Vitamin D3 50 MCG (1999 UT) Oral Capsule (Cholecalciferol)I ndications:Low vitamin D level Take 1 Capsule by mouth in the morning. 100 Capsule 3 11/15/2023 Active Fremanezumab-vfrm 225 MG/1.5ML Subcutaneous Solution Prefilled Syringe (Linden Mobile) Inject 1.5 mL under the skin every [...] hemoglobin A1c goal of less than 7.0% ([facility]) Inject 0.25mg under the skin once weekly for 4 weeks then increase to 0.5mg under the skin once weekly thereafter 9 mL 0 11/20/2023 Active Hospital, Clinic, or Other Facility Administered Medication Ordered Dose Route Frequency Start Date End Date Status vitamin b-12 (Cyanocobalamin) inj 1,000 mcgIndications:Intestinal postoperative nonabsorption,B12 deficiency 1000 mcg IM [id number] 11/20/2023 05/06/2024 Active documented as of this [...] tis 10/22/2008 Psoriatic arthropathy 05/20/2008 [facility] OTHER*[id number] 03/23/2008 ADVANCE DIRECTIVE INFORMATION 09/06/2007 Overview: No, [...] encounter Miscellaneous Notes * Telephone Encounter - Shell Pinon MD - 12/25/2023 12:26 PM EDT Noted * Telephone Encounter - Virgen Snider LPN [...] her aware. Offered pt an appointment in [place] today and pt declined. States that she is going to the ER. FYI- PCP * Telephone Encounter - Kieran Hutton RN - 12/25/2023 8:28 AM EDT MyG sent to schedule appointment for follow up. Provider to address: n/a Reason for Call: Advice [facility] Contact Type: Advice Outcome: See above Face to face time spent with Patient (minutes): 0 Total Time including non face to face (minutes): 10 Kieran Hutton [employer]UC[employer] TEACHER [facility] Primary Care Nurse Coordinator [facility] (Helping out) * Telephone Encounter - [...] PM EDT Office Visit General Internal Medicine [facility] [address] [place] [address] [address] Krystyna John MD [address] [place] [address] [address] 02/11/2024 2:00 PM EDT Office Visit Nutrition & Weight Management, [facility] [address] [place] [place] [address] Torrie Nobles PA-C [address] [place] [address] 02/11/2024 3:10 PM EDT Nutrition Services Nutrition & Weight Management, [facility] [address] [place] [address] Sharon Zavala RDN [address] [place] [address] 02/13/2024 2:30 PM EDT Office Visit [facility] [address] [facility] [place] [address] Rachid Dean PA-C [address] [facility] [place] [address] 04/03/2024 3:20 PM EDT Office Visit General Internal Medicine [facility] [address] [facility] [place] [address] Krystyna John MD [address] [facility] [place] [address] 06/03/2024 1:00 PM EDT Office Visit Sleep Disorders Ctr [facility] [address] [id number] Anamaria Mott DO [address] [address] 10/27/2024 1:00 PM EST Imaging Radiology [facility] [facility] [address] [address] Scheduled Procedures Name Priority Associated Diagnoses Date/Ti [...] this encounter Medical Devices Implanted Type Area Storehouse Clerk Device Identifier Shelf Expiration Date Model / Serial / Lot Knee Triathlon Bead No Jayce L 4 - [id number] Implanted:Qty: 1 on 02/28/2021 by Galileo Campuzano DO at OR [facility] Left: Knee ILEANA : ORTHOPAED[employer] 12/07/2024 [id number] / / [id number] Description:cruciate retaini ng femoral Implant Knee Patellar - [id number] Implanted:Qty: 1 on 02/28/2021 by Galileo Campuzano DO at OR [facility] Left: Knee ILEANA : ORTHOPAED[employer] 01/06/2026 [id number] / / [id number] Description:symmetric patell a Baseplate #4 Tritanium - [id number] Implanted:Qty: 1 on 02/28/2021 by Galileo Campuzano DO at OR [facility] Left: Knee ILEANA : ORTHOPA[employer] 09/24/2025 [id number] / / [id number] Description:tibial component Tiathlon X3 Tibial Bearing Insert-Cs Implanted:Qty: 1 on 02/28/2021 by Galileo Campuzano DO at OR [facility] Left: Knee ILEANA : ORTHOPAEDICS [...] the patient have Health Care Power of Home Care Physical Therapist? Yes, not currently available Code Status History [...] and were consensually agreed upon. Care Teams Sewer Digger Relationship Specialty Start Date End Date Krystyna John MD [address] [place] [address] PCP - General Internal Medicine 12/06/21 documented as of this encounter
[2023-12-26 07:33] LABS: Albumin Level 3.6 gm/dl (3.4-5.0); BUN Creatinine Ratio 9.2 (10-20); Bilirubin Direct 0.1 mg/dl (0-0.2); Bilirubin,Total 0.4 mg/dl (0.2-1.0); Calcium 8.7 mg/dl (8.6-10.3); Creatinine Clr Calc Pharmacy 102.8 ml/min; Est GFR (African American) 111.8 ml/min; Est GFR (Non-African American) 96.5 ml/min; Magnesium 1.9 mg/dl (1.7-2.4); Potassium 3.7 mmol/L (3.5-5.1); Total Protein 5.8 gm/dl (6.0-8.3)
[2023-12-26 07:44] LABS: Basophils # (auto) 0.04 K/uL (0.00-0.20); Basophils % (auto) 0.7 %; Eosinophils # (auto) 0.11 K/uL (0.00-0.50); Hematocrit (blood only) 37.1 % (37.0-47.0); Hemoglobin 12.2 g/dl (12.0-16.0); Immature Granulocytes # (auto) 0.02 K/uL (0.01-0.20); Immature Granulocytes % (auto) 0.4 %; Lymphocytes # (auto) 1.55 K/uL (1.20-3.40); Mean Corpuscular Hemoglobin 30.3 pg (25.0-34.0); Mean Corpuscular Hgb Conc 32.9 g/dL (32.0-36.0); Mean Corpuscular Volume 92.3 fL (80.0-100.0); Mean Platelet Volume 9.6 fL (9.4-12.4); Monocytes # (auto) 0.74 K/uL (0.11-0.59); Monocytes % (auto) 13.4 %; Neutrophils # (auto) 3.08 K/uL (1.40-6.50); Neutrophils % (auto) 55.5 %; Platelet Count 346 K/uL (130-400); RDW Coefficient of Variation 13.8 % (11.5-14.5); RDW Standard Deviation 46.2 fL (36.4-46.3); Red Blood Count 4.02 M/uL (4.20-5.40); White Blood Count 5.54 K/ul (4.8-10.8)
[2023-12-26 08:32] LABS: Estimated Average Glucose 126 mg/dl
[2023-12-26] MEDS: MAGNESIUM OXIDE 400 MG TAB PO SCH (09:48)
[2023-12-26] MEDS: MONTELUKAST SODIUM 10 MG TABLET PO SCH (09:49)
[2023-12-26] MEDS: CALCIUM CITRATE 950 MG TAB PO SCH (09:49)
[2023-12-26] MEDS: PANTOprazole 40 MG TAB PO SCH (09:49)
[2023-12-26] MEDS: PROPRANOLOL HCL 60 MG LA CAP PO SCH (09:49)
[2023-12-26] MEDS: FERROUS SULFATE 325 MG TAB PO SCH (09:49)
[2023-12-26] MEDS: DICYCLOMINE HCL 10 MG CAP PO SCH (09:49)
[2023-12-26] MEDS: CHOLECALCIFEROL 25 MCG (1000 UNITS) TAB PO SCH (09:49)
[2023-12-26] MEDS: INSULIN ASPART PER UNIT CHARGE SC SCH (09:49)
[2023-12-26] MEDS: DULoxetine HCL 60 MG CAP PO SCH (09:49)
[2023-12-26] MEDS: MULTIVITAMIN TAB PO SCH (09:49)
[2023-12-26] MEDS: busPIRone 7.5 MG TAB PO SCH (09:49)
[2023-12-26] MEDS: SUMAtriptan succinate 50 MG TAB PO PRN (10:13)
[2023-12-26] MEDS: PROMETHAZINE HCL 25 MG TAB PO PRN (10:13)
--- NOTE | 2023-12-26 11:57 | Infectious Disease Consult ---
<Statement entered by Bryon Golden, DO - 12/26/23 16:23> ATTESTATION: I saw and evaluated the patient today. I have reviewed the trainee note and agree. My additional thoughts/findingsor any changes to the planare listed below. CLINICAL TEAM: Infectious Diseases Team 4 HISTORY OF PRESENT ILLNESS: The patient was admitted for fatigue and fever. During our examination today, the patient also endorsed diffuse pain (hyperesthesia?) and intermittent migratory neurologic symptoms (weakness of the individual extremities). Workup revealed positive EBV IgM/EBNA. Other infection workup has been negative including blood cultures, RVP, HepC AB, Legionella UaG, parvovirus IgM, Qfever serologies, parasite smear, anaplasma PCR, babesia PCR, Lyme screen. In the recent past, an MRI brain, CTA chest and a CT of the abdomen/pelvis. Of note, the patient denies any animal exposure other than her pets (which are healthy and vaccinated). She also denies recent travel, unusual hobbies, recent icks bites/rashes, etc. IMPRESSION:1. Fatigue/fever RECOMMENDATIONS: I am not conviced that acute infectious mononucleosis due to EBV can explain all of the patients symptoms. She reports that she was diagnosed with mono as an adult which might explain the positive IgG and EBNA. Even if she had mono more recently, the treatment is supportive. Moreover, some of her complaints are not typical of mononucleosis. I recommend a Neurology consultation (considered MS given positive family history daughter) but MRI brain was negative. Is this definitive? Should we pursue MRI of the remainder of the neuraxis? Should we pursue LP? Even though the patient reports being monogamous with her , I recommend to screen for HIV and syphilis. COMMENT(S): Contact Infectious Diseases as needed for updated recommendations (use the on- call schedule to find out who is covering your facility).REVENUE MANAGEMENT:I spent a total of 80minutes coordinating, documenting, andproviding care for this patient excluding time spent in performance ofseparately billed services. Date of Service December 26, 2023 Telehealth Information I performed this visit using a real-time telehealth connection between my location and the patients location ([facility]). After connecting through interactive tele-video, patient was identified by name and date of and/or wristband check.Patient (or authorized healthcare community relations representative) was informed that this was a telemedicine visit and it was being conducted confidentially over secure lines. My office door was closed and no one else was present in the room with me.Patient (or authorized healthcare community relations representative) provided consent to proceed with the visit, expressed an unders tanding of privacy and security of the telemedicine visit, and gave permission to have a hospital community relations representative in the room in order to assist with the visit and to conduct portions of the visit, as needed. I informed the patient (or authorized healthcare community relations representative) that I reviewed their record and presented the opportunity for them to ask any questions regarding the visit today. The patient agreed to participate. Assessment & Plan (1) Fatigue: (2) Acute sore throat: (3) Abdominal pain: Plan 58-year-old female presenting from home due to fatigue/malaise and reports of subjective fever with left upper quadrant abdominal pain. Previous admission on 11/27 showing active EBV infection. Infectious Disease currently consulted due to concerns for complication for EBV. CT abdomen/ pelvis with no acute inflammatory/infective process, spleen within normal limits. prior exposure to EBV migratory weakness, R/O MS? Thrombocytosis Plan: -No acute intervention for EBV infection, this likely represents a past infection as opposed to an acute incident -considering patient's neurologic findings of weakness in the extremities recommend Neurology consultation, spinal MRI vs. lumbar puncture for further MS workup? - obtain HIV screening, RPR, 2 sets of blood cultures - further recommend Hematology evaluation for thrombocytosis - no acute indication for antimicrobials/antiviral therapy at this time case discussed with ID attending Dr. Chico Perdomo MD Infectious Disease PGY-4 [facility] History of Present Illness History of Present Illness Past medical history:2 diabetes, hypothyroidism, mild intermittent asthma, GERD, morbid obesity, psoriatic arthropathy, migraine, iron deficiency anemia, depression, history of gastric bypass, history of pulmonary embolism, history of C. difficile infection 58-year-old female presenting from home due to continued fatigue /body aches and general sense of malaise. Previous hospitalization 12/05 EBV serologies positive ( nuclear antigen antibody 42.9 ), patient treated for suspected community-acquired pneumonia ( Seven days ceftriaxone/ doxycycline) . admitted again on 12/09 due to mechanical fall, patient complaining of diffuse body aches and generalized weakness at this time, anaplasma/ Babesia smear (and PCR), Lyme screen negative. concern for psoriatic arthritis flare and patient was discharged on oral prednisone taper. Noted to have transaminitis in setting of prior cholecystectomy, MRCP with no acute findings. concern for multiple sclerosis and MRI brain with and without contrast without acute findings. At today's admission patient stating that when she was discharged from rehab to home she was well however, currently she has left upper quadrant abdominal pain and increase in sore throat and right neck pain. States that she was having fevers as high as 101 F. upon presentation temperature 37 C, pulse 102, respiratory rate 16, BP 164/87, 95% on room air. WBC 9.09, platelets 4 4, serum creatinine 0.68, creatinine clearance 97.5 mL/minute. Respiratory pathogen panel negative. CT abdomen/pelvis showing normal lung bases, gallbladder surgically absent, spleen normal size with scattered calcified granulomas, liver is enlarged and mildly steatotic, no acute infectious or inflammatory findings. Patient currently stating that she was having diffuse body aches which are exacerbated by touch. She was having weakness of all extremities which is intermittent and spontaneous however, she can still move all extremities and has the ability to perform her ADLs. she notes a fever of 101 F taken at home via the ear prior to this admission. 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 is not sexually active, no history of STDs. Allergies Allergy/AdvReac Type Severity Reaction Status Date / Time ketorolac Allergy Intermediate Itching Verified 12/25/23 19:57 oxycodone Allergy Intermediate Hives Verified 12/25/23 19:57 piperacillin Allergy Intermediate Pruritus Verified 12/25/23 19:57 tazobactam Allergy Intermediate Pruritus Verified 12/25/23 19:57 vancomycin AdvReac Severe deathly ill Verified 12/25/23 19:57 Home Medications Medication Instructions Recorded Confirmed Type ergocalciferol (vitamin D2) 1,250 50,000 units PO 2XWK 07/17/18 12/25/23 History mcg (50,000 unit) capsule (Vitamin D2) levothyroxine 25 mcg tablet 25 mcg PO DAILYBB 07/17/18 12/25/23 History (Synthroid) magnesium oxide 400 mg PO QAM 07/17/18 12/25/23 History pantoprazole 40 mg tablet,delayed 40 mg PO BID 07/17/18 12/25/23 History release (Protonix) sumatriptan succinate 50 mg tablet 50 mg PO DIRECTED PRN Migraine 07/17/18 12/25/23 History (Imitrex) Headache divalproex 250 mg tablet,extended 750 mg PO HS 11/06/19 12/25/23 History release 24 hr (Depakote ER) cholecalciferol (vitamin D3) 50 2,000 unit PO QAM 03/31/20 12/25/23 History mcg (2,000 unit) capsule (Vitamin D3) propranolol 60 mg capsule,24 60 mg PO QAM 03/31/20 12/25/23 History hr,extended release (Inderal LA) promethazine 25 mg tablet 25 mg PO TID PRN Nausea And 07/06/20 12/25/23 History Vomiting trazodone 150 mg tablet 300 mg PO HS 01/02/21 12/25/23 History ferrous sulfate 325 mg (65 mg 325 mg PO QAM 01/24/22 12/25/23 History iron) tablet montelukast 10 mg tablet 10 mg PO QAM 02/02/23 12/25/23 History buspirone 15 mg tablet 7.5 mg PO BID 12/06/23 12/25/23 History calcium 325 mg-vit D3 12.5 1 tab PO DAILY 12/06/23 12/25/23 History mcg-zinc 2.75 gi-zconhw-qsaomhqfw tablet (Citracal-D3 Maximum Plus) dicyclomine 10 mg capsule 10 mg PO DAILY 12/06/23 12/25/23 History duloxetine 60 mg capsule,delayed 60 mg PO DAILY 12/06/23 12/25/23 History release fremanezumab-vfrm 225 mg/1.5 mL 225 mg subcut MONTHLY 12/06/23 12/25/23 History subcutaneous syringe (Ajovy Syringe) multivitamin 1 tab PO DAILY 12/06/23 12/25/23 History semaglutide 0.25 mg or 0.5 mg (2 0.25 mg subcut WK 12/06/23 12/25/23 History mg/3 mL) subcutaneous pen injector (Ozempic) Patient History Medical History DM II (diabetes mellitus, type II), controlled History of gastric ulcer Hypothyroidism Vertigo Clostridium difficile colitis Psoriatic arthritis History of DVT (deep vein thrombosis) History of pulmonary embolism "completed 6 months Coumadin therapy" On 06/27/16 17:03 Nuha Zarate wrote On 03/23/16 16:22 Dottie Montilla wrote "2000 per patient; s/p knee replacement" MINI (iron deficiency anemia) Sleep apnea Depression GERD (gastroesophageal reflux disease) Surgical History History of cholecystectomy History of appendectomy S/P hysterectomy History of carpal tunnel surgery H/O wisdom tooth extraction Status post total knee replacement Status post gastric bypass for obesity Status post cholecystectomy Status post appendectomy Family History Mother Rheumatoid arthritis Father Cancer blood cancer Denies family history of Hypertension Social History Smoking Status: Never smoker Second Hand Exposure: No; Do You Dip or Chew Tobacco: No; Hx Alcohol Use: No Hx Substance Use: No Preferred Language: Chadian Communication Ability: Effective 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 Beliefs That Will Affect Care: None marital status: Current Living Situation: Spouse and Family Current Living Situation Comment: and daughter Feels Safe at Home: Yes Safety Concerns: Feels Safe At This Time Assistive Devices: Walker Review of Systems Constitutional: Intermittent fever at home, no chills, no weight loss, no appetite loss Eyes: No pain, drainage, vision change HENT: No ear pain/drainage, sinus infections, hearing loss Cardiovascular: No chest pain, palpitations, lower extremity swelling Respiratory: No shortness of breath, wheezing, cough, sputum production Gastrointestinal: some nausea, mild left upper quadrant abdominal pain MSK: Diffuse muscle aches worse with touch Skin: No rash, lesions Neurological: weakness of the extremities which is migratory without exacerbating factors, sensory intact Physical Exam Telemedicine, no physical exam Results & Data Vital Signs (Past 12 Hours) Vital Signs Temp Pulse Pulse Resp BP BP Pulse Ox 12/26/23 07:28 36.7 C 81 18 135/75 96 12/26/23 05:37 36.4 C L 71 18 137/86 96 12/26/23 04:32 73 18 121/67 93 12/26/23 04:00 79 18 121/67 93 12/26/23 03:12 67 12/26/23 02:16 72 22 153/92 H 95 12/26/23 01:13 73 24 184/107 H 93 O2 Del Method O2 Flow Rate 12/26/23 07:28 Room Air 12/26/23 05:37 Room Air 12/26/23 04:32 Nasal Cannula 2 12/26/23 04:00 Nasal Cannula 2 12/26/23 03:12 12/26/23 02:16 Nasal Cannula 2 12/26/23 01:13 Nasal Cannula 2 Laboratory Results Abnormal lab results 12/25/23 12/26/23 12/26/23 Range/Units 15:52 05:12 06:45 RBC 4.02 L (4.20-5.40) M/uL Plt Count 404 H (130-400) K/uL [place] # (Auto) 1.14 H 0.74 H (0.11-0.59) K/uL BUN/Creatinine Ratio 9.2 L (10-20) Glucose 159 H (70-99(Fasting)) mg/dl POC Glucose 105 H (70-99) mg/dl Hemoglobin A1c 6.0 H (4.5-5.6) % Total Protein 5.8 L D (6.0-8.3) gm/dl Lipase 6 L (11-82) U/L 12/26/23 Range/Units 07:27 RBC (4.20-5.40) M/uL Plt Count (130-400) K/uL [place] # (Auto) (0.11-0.59) K/uL BUN/Creatinine Ratio (10-20) Glucose (70-99(Fasting)) mg/dl POC Glucose 105 H (70-99) mg/dl Hemoglobin A1c (4.5-5.6) % Total Protein (6.0-8.3) gm/dl Lipase (11-82) U/L Diagnostic Findings Laboratory Results WBC 5.54 K/ul (4.8-10.8) 12/26/23 06:45 RBC 4.02 M/uL (4.20-5.40) L 12/26/23 06:45 Hgb 12.2 g/dl (12.0-16.0) 12/26/23 06:45 Hct 37.1 % (37.0-47.0) 12/26/23 06:45 MCV 92.3 fL (80.0-100.0) 12/26/23 06:45 MCH 30.3 pg (25.0-34.0) 12/26/23 06:45 MCHC 32.9 g/dL (32.0-36.0) 12/26/23 06:45 RDW Std Deviation 46.2 fL (36.4-46.3) 12/26/23 06:45 RDW Coeff of Halley 13.8 % (11.5-14.5) 12/26/23 06:45 Plt Count 346 K/uL (130-400) 12/26/23 06:45 MPV 9.6 fL (9.4-12.4) 12/26/23 06:45 Immature Gran % (Auto) 0.4 % 12/26/23 06:45 Neut % (Auto) 55.5 % 12/26/23 06:45 Lymph % (Auto) 28.0 % 12/26/23 06:45 [place] % (Auto) 13.4 % 12/26/23 06:45 Eos % (Auto) 2.0 % 12/26/23 06:45 Baso % (Auto) 0.7 % 12/26/23 06:45 Neut # (Auto) 3.08 K/uL (1.40-6.50) 12/26/23 06:45 Lymph # (Auto) 1.55 K/uL (1.20-3.40) 12/26/23 06:45 [place] # (Auto) 0.74 K/uL (0.11-0.59) H 12/26/23 06:45 Eos # (Auto) 0.11 K/uL (0.00-0.50) 12/26/23 06:45 Baso # (Auto) 0.04 K/uL (0.00-0.20) 12/26/23 06:45 Immature Gran # (Auto) 0.02 K/uL (0.01-0.20) 12/26/23 06:45 Sodium 138 mmol/L (136-145) 12/26/23 06:45 Potassium 3.7 mmol/L (3.5-5.1) 12/26/23 06:45 Chloride 106 mmol/L (98-107) 12/26/23 06:45 Carbon Dioxide 24 mmol/L (21-32) 12/26/23 06:45 Anion Gap 8 (3-11) 12/26/23 06:45 BUN 6 mg/dl (6-23) 12/26/23 06:45 Creatinine 0.65 mg/dl (0.6-1.2) 12/26/23 06:45 Est Cr Clr Drug Dosing 102.8 ml/min 12/26/23 06:45 Est GFR ( Amer) 111.8 ml/min 12/26/23 06:45 Est GFR (Non-Af Amer) 96.5 ml/min 12/26/23 06:45 BUN/Creatinine Ratio 9.2 (10-20) L 12/26/23 06:45 Glucose 159 mg/dl (70-99(Fasting)) H 12/26/23 06:45 POC Glucose 91 mg/dl (70-99) 12/26/23 11:26 Estimat Average Glucose 126 mg/dl 12/26/23 06:45 Hemoglobin A1c 6.0 % (4.5-5.6) H 12/26/23 06:45 Calcium 8.7 mg/dl (8.6-10.3) 12/26/23 06:45 Magnesium 1.9 mg/dl (1.7-2.4) 12/26/23 06:45 Total Bilirubin 0.4 mg/dl (0.2-1.0) 12/26/23 06:45 Direct Bilirubin 0.1 mg/dl (0-0.2) 12/26/23 06:45 AST 17 U/L (13-39) 12/26/23 06:45 ALT 18 U/L (7-52) 12/26/23 06:45 Alkaline Phosphatase 79 U/L (34-104) 12/26/23 06:45 Total Creatine Kinase 44 U/L (26-192) 12/25/23 15:52 Troponin I High Sens 3.3 pg/ml (0-14) 12/25/23 15:52 Total Protein 5.8 gm/dl (6.0-8.3) L D 12/26/23 06:45 Albumin 3.6 gm/dl (3.4-5.0) 12/26/23 06:45 Globulin 2.9 gm/dl (2.5-4.0) 12/25/23 15:52 Albumin/Globulin Ratio 1.5 (0.9-2) 12/25/23 15:52 Lipase 6 U/L (11-82) L 12/25/23 15:52 TSH 1.765 uIu/ml (0.300-4.500) 12/25/23 15:52 Urine Color Yellow 12/25/23 Unknown Urine Appearance Clear (Clear) 12/25/23 Unknown Urine pH 6.5 (4.5-7.5) 12/25/23 Unknown Ur Specific [place] 1.008 (1.000-1.030) 12/25/23 Unknown Urine Protein Negative (Negative) 12/25/23 Unknown Urine Glucose (UA) Negative (Negative) 12/25/23 Unknown Urine Ketones Negative (Negative) 12/25/23 Unknown Urine Blood Negative (Negative) 12/25/23 Unknown Urine Nitrite Negative (Negative) 12/25/23 Unknown Urine Bilirubin Negative (Negative) 12/25/23 Unknown Urine Urobilinogen Negative (Negative) 12/25/23 Unknown Ur Leukocyte Esterase Negative (Negative) 12/25/23 Unknown Adenovirus (PCR) Not Detected (NotDetected) 12/25/23 20:30 B. pertussis DNA (PCR) Not Detected (NotDetected) 12/25/23 20:30 B.parapertussis DNA PCR Not Detected (NotDetected) 12/25/23 20:30 C. pneumoniae DNA (PCR) Not Detected (NotDetected) 12/25/23 20:30 Coronavirus OC43 (PCR) Not Detected (NotDetected) 12/25/23 20:30 Coronavirus HKU1 (PCR) Not Detected (NotDetected) 12/25/23 20:30 Coronavirus 229E (PCR) Not Detected (NotDetected) 12/25/23 20:30 SARS-CoV-2 (PCR) Not Detected (NotDetected) 12/25/23 20:30 Coronavirus NL63 (PCR) Not Detected (NotDetected) 12/25/23 20:30 Human Metapneumovir PCR Not Detected (NotDetected) 12/25/23 20:30 Influenza Type A (PCR) Not Detected (NotDetected) 12/25/23 20:30 Influenza Type B (PCR) Not Detected (NotDetected) 12/25/23 20:30 M. pneumoniae (PCR) Not Detected (NotDetected) 12/25/23 20:30 Parainfluenza 1 (PCR) Not Detected (NotDetected) 12/25/23 20:30 Parainfluenza 2 (PCR) Not Detected (NotDetected) 12/25/23 20:30 Parainfluenza 3 (PCR) Not Detected (NotDetected) 12/25/23 20:30 Parainfluenza 4 (PCR) Not Detected (NotDetected) 12/25/23 20:30 RSV (PCR) Not Detected (NotDetected) 12/25/23 20:30 Entero/Rhino (PCR) Not Detected (NotDetected) 12/25/23 20:30 Impressions Abdomen/Pelvis CT 12/25/23 15:05 CT SCAN OF THE ABDOMEN AND PELVIS WITH IV CONTRAST CLINICAL HISTORY: Generalized abdominal pain. COMPARISON STUDY: Abdominal CT dated 02/02/2023. TECHNIQUE: Following the IV administration of 93 cc of Optiray 320, CT scan of the abdomen and pelvis is performed from the lung bases to the proximal femora. Images are reviewed in the axial, sagittal, and coronal planes. IV contrast was administered without complication. A dose lowering technique was utilized adhering to the principles of ALARA. CT DOSE: 1498.32 mGy.cm FINDINGS: Lung bases: The heart is normal in size and without pericardial effusion. The lung bases are clear noting mild dependent atelectasis. Liver: The contrast-enhanced liver is enlarged, measuring 20.3 cm in length. The liver demonstrates diffusely diminished attenuation indicating steatosis. There is no intrahepatic biliary ductal dilatation. The hepatic veins and portal veins are patent. Gallbladder: Surgically absent noting clips in the gallbladder fossa. Spleen: Normal in size and attenuation. There are scattered calcified granulomas. Pancreas: Atrophic and grossly unremarkable. Adrenal glands: Unremarkable. Kidneys: The contrast enhanced kidneys are normal in size and without hydronephrosis. The kidneys enhance symmetrically. Abdominal vasculature: The abdominal aorta is normal in course and caliber. Stomach and bowel: There is a small hiatal hernia. Postsurgical changes consistent with a Neel-en-Y gastric bypass procedure. There is no bowel obstruction. The appendix is not identified and reported surgically absent. Peritoneum: There is no intraperitoneal free air or abdominal ascites. There is a fat-containing umbilical hernia. Lymphadenopathy: None. Pelvic viscera: The bladder is normal as visualized. The uterus is surgically absent. No adnexal lesion is seen. Skeletal structures: The skeletal structures are osteopenic. There is mild to moderate lumbosacral spondylosis as well as mild scoliosis. No lytic or blastic lesions are seen. IMPRESSION: 1. No acute infectious or inflammatory findings are identified in the abdomen or pelvis. 2. Postsurgical change is consistent with a Neel-en-Y gastric bypass procedure. There is no bowel obstruction. 3. The liver is enlarged and mildly steatotic. 4. Additional findings as above. ACT 112: Negative or not required by law. Electronically signed by: Zander Humphrey M.D. 12/25/2023 6:12 PM
--- NOTE | 2023-12-26 15:36 | Hospitalist Progress Note ---
Date of Service December 26, 2023 Assessment & Plan (1) Fatigue: Plan: 58-year-old female w/ PMH of type 2 diabetes, hypothyroidism, mild intermittent asthma, GERD, morbid obesity, psoriatic arthropathy, migraine, iron deficiency anemia, depression, gastric bypass, pulmonary embolism, C. difficile infection, panic attack who was recently in the hospital for fever and body aches and workup showed EBV serology positive. She also found to have transaminitis mild CBD dilatation thought to be from history of cholecystectomy and MRCP did not show any acute changes and improvement in transaminitis noted and she was also treated for possible pneumonia with antibiotics, had hypoxia thought to be from pneumonia. And also she had prednisone taper for psoriatic arthritis and was discharged to rehab. 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 Of note, she also reports generalized body aches, left-sided weakness and increased left-sided pain which is about the same since last admission. Hemodynamics were okay at presentation. She is being managed for the following: Recent EBV infection Easy fatigability/generalized body aches/poor appetite Patient with continued symptoms of easy fatigability/generalized weakness/poor appetite. Was briefly better during rehab stay but again worse after being discharged to home. Patient was recently diagnosed with EBV infection in her last admission. Admitting respiratory viral panel negative, admitting UA negative for UTI, admitting TSH WNL, admitting LFT WNL. Admitting CBC and BMP WNL. Admitting CTAP with no new acute finding. Nausea control, IV fluids, PT/OT ID evaluated, sent HIV test/RPR/blood culture. No acute indication for antimicrobial/antiviral therapy at this time. Left sided weakness: Patient reports left-sided weakness associated with increas ed pain persisting since last admission -no changes/improvement. She had MRI brain in her last admission which came back negative. Will consult neurology for further recommendation. PT/OT. Other chronic medical conditions: T2DM: On Ozempic at home. Hold. Sliding scale insulin while in hospital Psoriatic arthritis: Recently treated with prednisone taper for flare. Continue to monitor. GERD: Continue PPI Depression and anxiety: Continue home duloxetine and BuSpar Hypothyroidism: Continue home Synthroid. TSH WNL this admission Migraine: c/w home imitrex prn. DVT prophylaxis: Lovenox Disposition: PT/OT, neurology consulted, CM to assist with DC planning Full code Admission and Anticipated Discharge Date Admission Date: December 26, 2023 Subjective Patient was seen and examined at bedside. Patient was lying in bed, on room air, NAD, no new acute event overnight. Patient reports feeling better briefly while in rehab, but once discharged back to her home, she started feeling not so well and started feeling weak. She continues to feel weak in the left side with rest and with ambulation per patient. This has stayed same since last admission per pt. She does have generalized pain, more so on the left side to palpation. Will consult neurology. She also reports subjective fever, poor appetite, nausea, dry heaves. Physical Exam Physical Exam: General- adult Head- Not in distress Eyes- PERRL. ENT- oropharynx clear Neck- supple, no JVD. Lungs- clear to auscultation no wheezing or crackles Heart- regular rate and rhythm; no murmur, no gallop. Abdomen- normal bowel sounds, soft, mild luq tenderness, no distension. Extremities- mild pretibial edema present, LLE slightly weaker compared to RLE. Neuro- alert, oriented PERRL, ; no facial palsy; no dysarthria; power 5/5 rt lower extremity 4/5 left lower extremity; Skin- warm & dry Results & Data Results & Data Vital Signs (Past 12 Hours) Vital Signs Temp Pulse Pulse Resp BP BP Pulse Ox 12/26/23 14:21 36.5 C 73 18 135/86 95 12/26/23 07:28 36.7 C 81 18 135/75 96 12/26/23 05:37 36.4 C L 71 18 137/86 96 12/26/23 04:32 73 18 121/67 93 12/26/23 04:00 79 18 121/67 93 O2 Del Method O2 Flow Rate 12/26/23 14:21 Room Air 12/26/23 07:28 Room Air 12/26/23 05:37 Room Air 12/26/23 04:32 Nasal Cannula 2 12/26/23 04:00 Nasal Cannula 2
[2023-12-26] MEDS: ACETAMINOPHEN 325 MG TAB PO PRN (16:31)
[2023-12-26] MEDS: DIVALPROEX EXTENDED RELEASE 250 MG TABCR PO SCH (21:50)
[2023-12-26] MEDS: traZODone HCL 100 MG TAB PO SCH (23:35)
[2023-12-27 06:47] LABS: Hematocrit (blood only) 37.2 % (37.0-47.0); Hemoglobin 12.1 g/dl (12.0-16.0); Mean Corpuscular Hemoglobin 30.3 pg (25.0-34.0); Mean Corpuscular Hgb Conc 32.5 g/dL (32.0-36.0); Mean Platelet Volume 9.5 fL (9.4-12.4); Platelet Count 296 K/uL (130-400); White Blood Count 7.07 K/ul (4.8-10.8)
[2023-12-27 06:59] LABS: BUN Creatinine Ratio 11.3 (10-20); Calcium 9.1 mg/dl (8.6-10.3); Creatinine Clr Calc Pharmacy 94.1 ml/min; Est GFR (African American) 107.3 ml/min; Est GFR (Non-African American) 92.6 ml/min; Phosphorus 4.8 mg/dl (2.5-4.9); Potassium 4.2 mmol/L (3.5-5.1)
--- NOTE | 2023-12-27 12:10 | Neurology Consultation ---
Date of Consultation December 27, 2023 Assessment & Plan (1) Left hemiparesis: Patient reports subjective Left hemiparesis- also reports symptoms will fluctuate Recommend MRI brain, cervical and thoracic spine with and without contrast for evaluation of potential etiology Continue current therapies Monitor neurological assessments Obtain stat CT brain without contrast for any acute neurological decline Also recommend further workup to assess risk of stroke as follows: CTA head & neck Echocardiogram with bubble study Continue to monitor telemetry closely Recommend ZioPatch at DC unless identify abnormal rhythm during inpatient monitoring Continue to monitor/control blood pressure & blood glucose Monitor renal and hepatic function, keep euvolemic Metabolic workup should include hgbA1c, fasting lipids, homocysteine, TSH, D Dimer Due to concern for possible TIA/stroke like symptoms recommend: Recommend DAPT for at least 3 weeks Recommend high dose statin therapy indefinitely if tolerated Ok from neurology perspective for VTE prophylaxis PT/OT/SLT to eval and treat Telehealth Consultation Telehealth Information Telehealth Information: I performed this visit using a real-time telehealth connection between my location and the patients location ([facility]). After connecting through interactive tele-video, patient was identified by name and date of and/or wristband check.Patient (or authorized healthcare international account representative) was informed that this was a telemedicine visit and it was being conducted confidentially over secure lines. My office door was closed and no one else was present in the room with me.Patient (or authorized healthcare international account representative) provided consent to proceed with the visit, expressed an understanding of privacy and security of the telemedicine visit, and gave permission to have a hospital international account representative in the room in order to assist with the visit and to conduct portions of the visit, as needed. I informed the patient (or authorized healthcare international account representative) that I reviewed their record and presented the opportunity for them to ask any questions regarding the visit today. The patient agreed to participate. History of Present Illness Reason for Consultation: Left side weakness Requesting Physician: Dr. Corrales Attending Physician: Lorenzo Corrales MD History of Present Illness 58yo right handed female recently hospitalized and discharged to rehab was reportedly home for about a week but continued to suffer reported continued headache and body ache prompting return to the ER. She reports recurrent left hemiparesis without changes in sensation. She denies symptoms consistent with Lhermitte's or Uhthoff's phenomenon. Denies changes in vision or painful eye movements. Denies hx of trauma. No reported cephalgia or cervicalgia currently. Denies chest pain/palpitations or shortness of breath. No reported changes in vision hearing dizziness syncope seizure like activity or paresthesia I have performed televideo consultation. She is alert & oriented; able to answer all questions appropriately, name objects on televideo monitor, repeat phrases and perform complex/embedded commands without deficit. Neurological exam is non lateralizing/nonfocal in terms of motor strength and coordination. NIHSS=0. Allergies Allergy/AdvReac Type Severity Reaction Status Date / Time ketorolac Allergy Intermediate Itching Verified 12/25/23 19:57 oxycodone Allergy Intermediate Hives Verified 12/25/23 19:57 piperacillin Allergy Intermediate Pruritus Verified 12/25/23 19:57 tazobactam Allergy Intermediate Pruritus Verified 12/25/23 19:57 vancomycin AdvReac Severe deathly ill Verified 12/25/23 19:57 Home Medications Medication Instructions Recorded Confirmed Type ergocalciferol (vitamin D2) 1,250 50,000 units PO 2XWK 07/17/18 12/25/23 History mcg (50,000 unit) capsule (Vitamin D2) levothyroxine 25 mcg tablet 25 mcg PO DAILYBB 07/17/18 12/25/23 History (Synthroid) magnesium oxide 400 mg PO QAM 07/17/18 12/25/23 History pantoprazole 40 mg tablet,delayed 40 mg PO BID 07/17/18 12/25/23 History release (Protonix) sumatriptan succinate 50 mg tablet 50 mg PO DIRECTED PRN Migraine 07/17/18 12/25/23 History (Imitrex) Headache divalproex 250 mg tablet,extended 750 mg PO HS 11/06/19 12/25/23 History release 24 hr (Depakote ER) cholecalciferol (vitamin D3) 50 2,000 unit PO QAM 03/31/20 12/25/23 History mcg (2,000 unit) capsule (Vitamin D3) propranolol 60 mg capsule,24 60 mg PO QAM 03/31/20 12/25/23 History hr,extended release (Inderal LA) promethazine 25 mg tablet 25 mg PO TID PRN Nausea And 07/06/20 12/25/23 History Vomiting trazodone 150 mg tablet 300 mg PO HS 01/02/21 12/25/23 History ferrous sulfate 325 mg (65 mg 325 mg PO QAM 01/24/22 12/25/23 History iron) tablet montelukast 10 mg tablet 10 mg PO QAM 02/02/23 12/25/23 History buspirone 15 mg tablet 7.5 mg PO BID 12/06/23 12/25/23 History calcium 325 mg-vit D3 12.5 1 tab PO DAILY 12/06/23 12/25/23 History mcg-zinc 2.75 cj-gfcwrm-sixrditiv tablet (Citracal-D3 Maximum Plus) dicyclomine 10 mg capsule 10 mg PO DAILY 12/06/23 12/25/23 History duloxetine 60 mg capsule,delayed 60 mg PO DAILY 12/06/23 12/25/23 History release fremanezumab-vfrm 225 mg/1.5 mL 225 mg subcut MONTHLY 12/06/23 12/25/23 History subcutaneous syringe (Ajovy Syringe) multivitamin 1 tab PO DAILY 12/06/23 12/25/23 History semaglutide 0.25 mg or 0.5 mg (2 0.25 mg subcut WK 12/06/23 12/25/23 History mg/3 mL) subcutaneous pen injector (Ozempic) Patient History Medical History DM II (diabetes mellitus, type II), controlled History of gastric ulcer Hypothyroidism Vertigo Clostridium difficile colitis Psoriatic arthritis History of DVT (deep vein thrombosis) History of pulmonary embolism "completed 6 months Coumadin therapy" On 06/27/16 17:03 Nuha Zarate wrote On 03/23/16 16:22 Dottie Montilla wrote "1999 per patient; s/p knee replacement" MINI (iron deficiency anemia) Sleep apnea Depression GERD (gastroesophageal reflux disease) Surgical History History of cholecystectomy History of appendectomy S/P hysterectomy History of carpal tunnel surgery H/O wisdom tooth extraction Status post total knee replacement Status post gastric bypass for obesity Status post cholecystectomy Status post appendectomy Family History Mother Rheumatoid arthritis Father Cancer blood cancer Denies family history of Hypertension Social History Smoking Status: Never smoker Second Hand Exposure: No; Do You Dip or Chew Tobacco: No; Hx Alcohol Use: No Hx Substance Use: No Preferred Language: Pashto Communication Ability: Effective Watch Commander Required: No Beliefs That Will Affect Care: None marital status: Current Living Situation: Spouse and Family Current Living Situation Comment: and daughter Feels Safe at Home: Yes Safety Concerns: Feels Safe At This Time Assistive Devices: Walker Physical Exam Neurological Examination: Mental Status: Awake and alert. Oriented to person, place, and time. Fluency naming repetition and comprehension appear grossly intact. Affect remains appropriate. CN testing: I: Denies changes in ability to smell II:Reports no changes in visual acuity III/IV/: No evidence of gaze preference, hippus, nystagmus or roving eye movements V: Facial sensation reportedly grossly intact to light touch bilaterally VII: Facial movements appear without evidence of asymmetry VIII: Hearing appears grossly intact to loud voice bilaterally IX/X: Palate appears to elevate symmetrically XI: Shoulder shrug appears symmetric/ grossly intact bilaterally XII: Tongue protrudes midline without evidence of biting Motor exam: Strength appears grossly intact/symmetric in all extremities Sensory: Sensation is reportedly grossly intact throughout Coordination: Finger to nose and heel to frausto were intact. No apparent evidence of dysmetria or dysdiadochokinesia Reflexes: Deferred Gait: Deferred Results & Data Vital Signs (Past 12 Hours) Vital Signs Temp Pulse Resp BP Pulse Ox O2 Del Method FiO2 12/27/23 06:58 36.4 C L 77 18 101/64 95 Room Air 12/27/23 03:02 17 21 Laboratory Results Abnormal lab results 12/26/23 12/27/23 12/27/23 Range/Units 16:41 06:04 07:26 RBC 4.00 L (4.20-5.40) M/uL RDW Std Deviation 47.0 H (36.4-46.3) fL Glucose 102 H (70-99(Fasting)) mg/dl POC Glucose 104 H 113 H (70-99) mg/dl Medications Administered Home Medications Medication Instructions Recorded Confirmed Last Taken ergocalciferol (vitamin D2) 1,250 50,000 units PO 2XWK 07/17/18 12/25/23 12/24/23 mcg (50,000 unit) capsule (Vitamin D2) levothyroxine 25 mcg tablet 25 mcg PO DAILYBB 07/17/18 12/25/23 12/25/23 (Synthroid) magnesium oxide 400 mg PO QAM 07/17/18 12/25/23 12/25/23 pantoprazole 40 mg tablet,delayed 40 mg PO BID 07/17/18 12/25/23 12/25/23 08:00 release (Protonix) sumatriptan succinate 50 mg tablet 50 mg PO DIRECTED PRN Migraine 07/17/18 12/25/23 12/28/20 (Imitrex) Headache divalproex 250 mg tablet,extended 750 mg PO HS 11/06/19 12/25/23 12/24/23 release 24 hr (Depakote ER) cholecalciferol (vitamin D3) 50 2,000 unit PO QAM 03/31/20 12/25/23 12/25/23 mcg (2,000 unit) capsule (Vitamin D3) propranolol 60 mg capsule,24 60 mg PO QAM 03/31/20 12/25/23 12/25/23 hr,extended release (Inderal LA) promethazine 25 mg tablet 25 mg PO TID PRN Nausea And 07/06/20 12/25/23 01/01/21 Vomiting trazodone 150 mg tablet 300 mg PO HS 01/02/21 12/25/23 12/24/23 ferrous sulfate 325 mg (65 mg 325 mg PO QAM 01/24/22 12/25/23 12/25/23 iron) tablet montelukast 10 mg tablet 10 mg PO QAM 02/02/23 12/25/23 12/25/23 buspirone 15 mg tablet 7.5 mg PO BID 12/06/23 12/25/23 12/25/23 08:00 calcium 325 mg-vit D3 12.5 1 tab PO DAILY 12/06/23 12/25/23 12/25/23 mcg-zinc 2.75 pn-mavlbu-vjowcqgkl tablet (Citracal-D3 Maximum Plus) dicyclomine 10 mg capsule 10 mg PO DAILY 12/06/23 12/25/23 12/25/23 duloxetine 60 mg capsule,delayed 60 mg PO DAILY 12/06/23 12/25/23 12/25/23 release frechingezumab-vfrm 225 mg/1.5 mL 225 mg subcut MONTHLY 12/06/23 12/25/23 Unknown subcutaneous syringe (Ajovy Syringe) multivitamin 1 tab PO DAILY 12/06/23 12/25/23 12/25/23 semaglutide 0.25 mg or 0.5 mg (2 0.25 mg subcut WK 12/06/23 12/25/23 12/24/23 mg/3 mL) subcutaneous pen injector (Ozempic) Active Medications Generic Name Dose Route Start Last Admin Trade Name Freq PRN Reason Stop Dose Admin Acetaminophen 650 mg 12/26/23 05:10 12/26/23 16:31 Acetaminophen 325 Mg Tab PO 01/25/24 05:09 650 mg Q4H PRN Administration pain/fever Buspirone HCl 7.5 mg 12/26/23 09:00 12/27/23 08:24 Buspirone 7.5 Mg Tab PO 01/25/24 08:59 7.5 mg BID DRE Administration Calcium Citrate 950 mg 12/26/23 09:00 12/27/23 08:23 Calcium Citrate 950 Mg Tab PO 01/25/24 08:59 950 mg DAILY DRE Administration Dicyclomine HCl 10 mg 12/26/23 09:00 12/27/23 08:23 Dicyclomine Hcl 10 Mg Cap PO 01/25/24 08:59 10 mg DAILY DRE Administration Divalproex Sodium 750 mg 12/26/23 21:00 12/26/23 21:50 Divalproex Extended Release 250 Mg Tabcr PO 01/25/24 20:59 750 mg HS DRE Administration Duloxetine HCl 60 mg 12/26/23 09:00 12/27/23 08:23 Duloxetine Hcl 60 Mg Cap PO 01/25/24 08:59 60 mg DAILY DRE Administration Enoxaparin Sodium 40 mg 12/26/23 06:00 12/27/23 05:48 Enoxaparin Inj 40 Mg/0.4 Ml Syr SQ 01/25/24 05:59 40 mg Q24H DRE Administration Ferrous Sulfate 325 mg 12/26/23 09:00 12/27/23 08:23 Ferrous Sulfate 325 Mg Tab PO 01/25/24 08:59 325 mg QAM DRE Administration Insulin Aspart 0 units 12/26/23 07:30 12/27/23 08:24 Insulin Aspart Per Unit Charge SC 01/25/24 07:29 Not Given ACHS DRE Levothyroxine Sodium 25 mcg 12/26/23 06:30 12/27/23 05:47 Levothyroxine Sodium 25 Mcg Tablet PO 01/25/24 06:29 25 mcg DAILYBB DRE Administration Magnesium Oxide 400 mg 12/26/23 09:00 12/27/23 08:24 Magnesium Oxide 400 Mg Tab PO 01/25/24 08:59 400 mg QAM DRE Administration Montelukast Sodium 10 mg 12/26/23 09:00 12/27/23 08:24 Montelukast Sodium 10 Mg Tablet PO 01/25/24 08:59 10 mg QAM DRE Administration Multivitamins 1 tab 12/26/23 09:00 12/27/23 08:24 Multivitamin Tab PO 01/25/24 08:59 1 tab DAILY DRE Administration Ondansetron HCl 4 mg 12/26/23 05:10 12/26/23 16:31 Ondansetron Inj 2 Mg/Ml 2 Ml Vial IV 01/25/24 05:09 4 mg Q6H PRN Administration Nausea Pantoprazole Sodium 40 mg 12/26/23 09:00 12/27/23 08:24 Pantoprazole 40 Mg Tab PO 01/25/24 08:59 40 mg BID DRE Administration Promethazine HCl 25 mg 12/26/23 07:58 12/27/23 11:49 Promethazine Hcl 25 Mg Tab PO 01/25/24 07:57 25 mg TID PRN Administration Nausea And Vomiting Propranolol HCl 60 mg 12/26/23 09:00 12/27/23 08:24 Propranolol Hcl 60 Mg La Cap PO 01/25/24 08:59 60 mg QAM DRE Administration Sumatriptan Succinate 50 mg 12/26/23 07:58 12/27/23 11:49 Sumatriptan Succinate 50 Mg Tab PO 01/25/24 07:57 50 mg UD PRN Administration Migraine Headache Trazodone HCl 300 mg 12/26/23 21:00 12/26/23 23:35 Trazodone Hcl 100 Mg Tab PO 01/25/24 20:59 300 mg HS DRE Administration Vitamin D 50 mcg 12/26/23 09:00 12/27/23 08:24 Cholecalciferol 25 Mcg (1000 Units) Tab PO 01/25/24 08:59 50 mcg QAM DRE Administration
[2023-12-27] MEDS: OPTIRAY 320 125ml IV ONE (13:18)
[2023-12-27] MEDS: CLOPIDOGREL BISULFATE 75 MG TAB PO SCH (13:47)
[2023-12-27] MEDS: ASPIRIN 81 MG ECTAB PO SCH (13:47)
--- NOTE | 2023-12-27 14:29 | CT Scan Report ---
CT ANGIOGRAM OF THE BRAIN COMBO CLINICAL HISTORY: Left lower extremity pain and weakness. COMPARISON STUDY: MRI of the brain dated 12/08/2023. CT angiogram of the brain dated 05/29/2022. TECHNIQUE: Unenhanced axial CT scan of the brain is performed. Subsequently, following the IV adminis tration of 118 cc of Optiray 320, CT angiogram of the brain was performed from the skull base to the vertex. Images are reviewed in the axial, sagittal, and coronal planes. 3-D MIPS images are created a nd assessed. IV contrast was administered without complication. A dose lowering technique was utiliz ed adhering to the principles of ALARA. FINDINGS: Brain parenchyma: There is no hemorrhage, mass effect, or evidence of acute territorial ischemia by C T criteria. There is no evidence of enhancing mass lesion on the angiogram phase images. A tiny chron ic lacunar infarct is noted in the right cerebellar hemisphere. No extra-axial fluid collection is se en. Escobar-white matter differentiation is preserved. Ventricles, sulci, and cisterns: Normal in configuration. CT angiogram of the brain: The internal carotid arteries are widely patent, as are the anterior and m iddle cerebral arteries. The vertebrobasilar system and posterior cerebral arteries are widely patent . The vertebral arteries are codominant. There is a right posterior communicating artery. There is no aneurysm, high-grade stenosis, or focal vessel cutoff identified throughout the intracranial circula tion. Dural sinuses: Clear as visualized. Orbits: The bony orbits are intact. The orbital contents are normal as visualized. Sinuses and mastoids: The visualized paranasal sinuses are clear. The mastoid air cells are well pneu matized. Calvarium: Unremarkable. IMPRESSION: 1. No acute intracranial abnormality. 2. Unremarkable CT angiogram of the brain. ACT 112: Negative or not required by law. Electronically signed by: Zander Humphrey M.D. 12/27/2023 2:28 PM
--- NOTE | 2023-12-27 14:50 | CT Scan Report ---
CT angio neck with con CLINICAL HISTORY: 58 years-old Female with Left extremity weak/pain. Stroke like symptoms COMPARISON STUDY: CTA head of same day, CT neck 05/29/2022 TECHNIQUE: Following the IV administration of 118 mL of Optiray, CT angiogram of the neck was perform ed from the aortic arch to the skull base. Images are reviewed in the axial, sagittal, and coronal pl anes. 3-D MIPS images are created and assessed. IV contrast was administered without complication. Al l measurements were calculated based on NASCET criteria. A dose lowering technique was utilized adhe ring to the principles of ALARA. CT DOSE: 1412.32 mGy.cm FINDINGS: The aortic arch and proximal great vessels are widely patent. There is no significant stenosis, occlu shelbi, or dissection identified within the bilateral common carotid, internal carotid, or vertebral ar teries. Mosaic attenuation of the lung apices without pneumothorax. Unremarkable soft tissues. Degenerative c hanges of the cervical spine. IMPRESSION:Unremarkable CTA of the neck. ACT 112: Negative or not required by law. The above report was generated using voice recognition software. It may contain grammatical, syntax o r spelling errors. Electronically signed by: Alejandro Owens M.D. 12/27/2023 2:49 PM
--- NOTE | 2023-12-27 16:50 | Hospitalist Progress Note ---
Date of Service December 27, 2023 Assessment & Plan (1) Fatigue: Plan: 58-year-old female w/ PMH of type 2 diabetes, hypothyroidism, mild intermittent asthma, GERD, morbid obesity, psoriatic arthropathy, migraine, iron deficiency anemia, depression, gastric bypass, pulmonary embolism, C. difficile infection, panic attack who was recently in the hospital for fever and body aches and workup showed EBV serology positive. She also found to have transaminitis mild CBD dilatation thought to be from history of cholecystectomy and MRCP did not show any acute changes and improvement in transaminitis noted and she was also treated for possible pneumonia with antibiotics, had hypoxia thought to be from pneumonia. And also she had prednisone taper for psoriatic arthritis and was discharged to rehab. She reports feeling better at rehab but was discharged to home about 1 week ago [employer] since when she started feeling very weak/exercise/body aches/nausea/poor appetite/not feeling well which prompted her to come to the ED again 12/25/2023. Of note, she also reports generalized body aches, left-sided weakness and increased left-sided pain which is about the same since last admission. Hemodynamics were okay at presentation. She is being managed for the following: Recent EBV infection Easy fatigability/generalized body aches/poor appetite Patient with continued symptoms of easy fatigability/generalized weakness/poor appetite. Was briefly better during rehab stay but again worse after being discharged to home. Patient was recently diagnosed with EBV infection in her last admission. Admitting respiratory viral panel negative, admitting UA negative for UTI, admitting TSH WNL, admitting LFT WNL. Admitting CBC and BMP WNL. Admitting CTAP with no new acute finding. Nausea control, IV fluids, PT/OT ID evaluated, sent HIV test/RPR/blood culture - follow results. No acute indication for antimicrobial/antiviral therapy at this time. Left sided weakness: Patient reports left-sided weakness associated with increased pain persisting since last admission -no changes/improvement. She had MRI brain in her last admission which came back negative. Neuro evaled -MRI brain/cervical and thoracic spine and CTA head and neck, echocardiogram, Zio patch at discharge, A1c/fasting lipid/homocystine/TSH/D- dimer, DAPT for 3 weeks, high-dose statin if tolerated. CT of the head and neck with no acute finding. Other imaging send lab test pending. Will discuss with patient regarding starting statin in AM. Other chronic medical conditions: T2DM: On Ozempic at home. Hold. Sliding scale insulin while in hospital. Psoriatic arthritis: Recently treated with prednisone taper for flare. Continue to monitor. GERD: Continue PPI Depression and anxiety: Continue home duloxetine and BuSpar Hypothyroidism: Continue home Synthroid. TSH WNL this admission Migraine: c/w home imitrex prn. DVT prophylaxis: Lovenox Disposition: PT/OT, neurology consulted, to assist with DC planning Full code Admission and Anticipated Discharge Date Admission Date: December 26, 2023 Subjective Patient was seen and examined at bedside. Patient was lying in bed, on room air, NAD, no new acute event overnight. Patient reports some nausea, is able to eat her breakfast, reports improvement in her generalized pain, reports ongoing left-sided weakness. Physical Exam Physical Exam: General- adult Head- Not in distress Eyes- PERRL. ENT- oropharynx clear Neck- supple, no JVD. Lungs- clear to auscultation no wheezing or crackles Heart- regular rate and rhythm; no murmur, no gallop. Abdomen- normal bowel sounds, soft, mild luq tenderness, no distension. Extremities- mild pretibial edema present, LLE slightly weaker compared to RLE. Neuro- alert, oriented PERRL, ; no facial palsy; no dysarthria; power 5/5 rt lower extremity 4/5 left lower extremity; Skin- warm & dry Results & Data Results & Data Vital Signs (Past 12 Hours) Vital Signs Temp Pulse Resp BP Pulse Ox O2 Del Method 12/27/23 06:58 36.4 C L 77 18 101/64 95 Room Air
[2023-12-27] MEDS: GADOBUTROL 65ML VIAL IV ONE (21:40)
--- NOTE | 2023-12-27 22:57 | Magnetic Resonance Report ---
Exam(s): MRI C SPINE IV Amt: 9cc gadavist EXAM: MR Cervical Spine With Intravenous Contrast CLINICAL HISTORY: Reason for exam: Left extremity weak/pain. TECHNIQUE: Magnetic resonance images of the cervical spine with intravenous contrast in multiple planes. Mild motion artifact. CONTRAST: Patient received 9cc Gadavist of IV contrast COMPARISON: CTA neck done earlier. FINDINGS: Vertebrae: Incidental hemangioma T1 through T4 vertebrae. No marrow edema, compression deformity, discitis or osteomyelitis. No abnormal enhancement. Spinal cord: No abnormal signal or abnormal enhancement. Soft tissues: No interspinous ligamentous edema or prevertebral edema. No abnormal enhancement. No epidural fluid collection or hematoma. DISCS/SPINAL CANAL/NEURAL FORAMINA: C2-C3: Mild degenerative disc disease. C3-C4: Mild degenerative disc disease. C4-C5: Mild degenerative disc disease. C5-C6: Mild degenerative disc disease. C6-C7: Mild degenerative disc disease. C7-T1: Mild degenerative disc disease. OTHER: No disc herniation or central spinal stenosis. Facet joints are normal for this age group. IMPRESSION: 1. Mild degenerative disc disease throughout. 2. No disc herniation, central spinal stenosis, abnormal cord signal or abnormal enhancement. Electronically signed by: Nikki Childress M.D. 12/27/23 22:56 PM
--- NOTE | 2023-12-27 22:57 | Magnetic Resonance Report ---
Exam(s): MRI T SPINE W/WO Contrast IV Amt: 9cc gadavist EXAM: MR Thoracic Spine Without and With Intravenous Contrast CLINICAL HISTORY: Reason for exam: Left extremity weak/pain. TECHNIQUE: Magnetic resonance images of the thoracic spine without and with intravenous contrast in multiple planes. Motion artifact, most notable on postcontrast imaging. CONTRAST: Patient received 9cc Gadavist of IV contrast COMPARISON: CTA chest 12/06/23. FINDINGS: Vertebrae: There is straightening of the thoracic kyphosis in the upper thoracic spine. Moderate, multilevel endplate flattening, chronic. Minimal L1-L2 retrolisthesis. No compression deformity, marrow edema, discitis or osteomyelitis. No abnormal enhancement. Discs/spinal canal/neural foramina: Mild disc bulging in the upper lumbar spine. No disc herniation or central spinal stenosis with attention to the thoracic levels. Moderate facet hypertrophy, particularly lower thoracic spine. Spinal cord: Unremarkable. Normal signal. No abnormal enhancement. Soft tissues: Unremarkable. No paraspinous mass, enhancement or adenopathy. IMPRESSION: 1. Mild to moderate degenerative change. 2. No abnormal enhancement, disc herniation, spinal stenosis, epidural hematoma, abnormal cord signal, or discitis/osteomyelitis. 3. Moderate motion artifact limits detail. Electronically signed by: Nikki Childress M.D. 12/27/23 22:56 PM
--- NOTE | 2023-12-27 22:58 | Magnetic Resonance Report ---
Exam(s): MRI HEAD W/WO Contrast IV Amt: 9cc gadavist EXAM: MR Head Without and With Intravenous Contrast CLINICAL HISTORY: Reason for exam: Left extremity weak/pain. TECHNIQUE: Magnetic resonance images of the head/brain without and with intravenous contrast in multiple planes. CONTRAST: Patient received 9cc Gadavist of IV contrast COMPARISON: MRI brain 12/08/23. FINDINGS: Brain: Small, 1.4 cm left paramedian frontal lobe enhancing extra-axial mass, stable, presumed small meningioma. 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 Otherwise, normal exam. No other abnormal enhancing focus. No mass-effect or acute infarct. No acute or chronic hemorrhage. Ventricles: No hydrocephalus or midline shift. Bones/joints: No calvarial lesions. Soft tissues: No scalp hematoma. Sinuses: Clear. Mastoid air cells: No mastoid effusion. IMPRESSION: 1. Small left frontal meningioma, stable. 2. No acute infarct, bleed, acute intracranial abnormality, or interval change. Electronically signed by: Nikki Childress M.D. 12/27/23 22:56 PM
[2023-12-27] MEDS: HYDROCODONE/ACETAMOPHEN 5/325MG TAB PO STA (23:08)
[2023-12-28 04:02] LABS: Hematocrit (blood only) 35.5 % (37.0-47.0); Hemoglobin 11.6 g/dl (12.0-16.0); Mean Corpuscular Hemoglobin 30.5 pg (25.0-34.0); Mean Corpuscular Hgb Conc 32.7 g/dL (32.0-36.0); Mean Corpuscular Volume 93.4 fL (80.0-100.0); Mean Platelet Volume 9.4 fL (9.4-12.4); Platelet Count 256 K/uL (130-400); RDW Coefficient of Variation 14.1 % (11.5-14.5); RDW Standard Deviation 48.3 fL (36.4-46.3); White Blood Count 6.66 K/ul (4.8-10.8)
[2023-12-28 04:16] LABS: BUN Creatinine Ratio 13.5 (10-20); Calcium 8.7 mg/dl (8.6-10.3); Chol HDL Ratio 4.1 (0-5); Est GFR (African American) 81.6 ml/min; Est GFR (Non-African American) 70.4 ml/min; Phosphorus 4.9 mg/dl (2.5-4.9); Potassium 4.2 mmol/L (3.5-5.1)
[2023-12-28 05:43] LABS: D Dimer 510 ug/L FEU (0-500)
[2023-12-28] MEDS: OPTIRAY 320 125ml IV ONE (06:34)
[2023-12-28] MEDS: SODIUM CHLORIDE 0.9% 500 ML IV ONE (06:41)
--- NOTE | 2023-12-28 06:53 | CT Scan Report ---
CT ANGIOGRAPHY OF THE CHEST, PULMONARY EMBOLUS PROTOCOL CLINICAL HISTORY: Chest pain. Evaluate for pulmonary embolus. COMPARISON STUDY: Chest radiograph and chest CT December 06, 2023. TECHNIQUE: Following IV administration of 102 mL of Optiray, helical axial images of the chest were o btained utilizing the pulmonary embolus protocol. Maximal intensity projections and sagittal and cor onal reformats were viewed on an independent 3D workstation. IV contrast was administered without co mplication. Automated exposure control was utilized for the study. A dose lowering technique was ut ilized adhering to the principles of ALARA. CT DOSE: 821.31 mGy.cm FINDINGS: No pulmonary emboli are identified. There is no thoracic aortic dissection. Moderate cardi omegaly is unchanged. There is no thoracic lymphadenopathy. No pericardial effusion is present. There is no pneumothorax or pleural effusion. No consolidation is identified. There are groundglass opacit ies with mosaic attenuation within the lungs. Postoperative findings consistent with Neel-en-Y gastri c bypass and cholecystectomy within the visualized upper abdomen are noted. Hyperdense material withi n the visualized portion of the left collecting system likely reflects excreted contrast from recent contrast-enhanced MRI. IMPRESSION: 1. No pulmonary emboli identified. 2. No consolidation to suggest pneumonia. 3. Stable cardiomegaly. 4. Groundglass opacities with apparent mosaic attenuation within the lungs. The findings favor air tr apping or atelectasis. ACT 112: Negative or not required by law. Electronically signed by: Yang Hansen M.D. 12/28/2023 6:50 AM
--- NOTE | 2023-12-28 10:23 | Communication Note ---
Date of Service: December 28, 2023 EMR reviewed MRI reviewed CTA head and neck reviewed Recommend continue current therapies Monitor/control pain
--- NOTE | 2023-12-28 16:49 | Hospitalist Progress Note ---
Date of Service December 28, 2023 Assessment & Plan (1) Fatigue: Plan: 58-year-old female w/ PMH of type 2 diabetes, hypothyroidism, mild intermittent asthma, GERD, morbid obesity, psoriatic arthropathy, migraine, iron deficiency anemia, depression, gastric bypass, pulmonary embolism, C. difficile infection, panic attack who was recently in the hospital for fever and body aches and workup showed EBV serology positive. She also found to have transaminitis mild CBD dilatation thought to be from history of cholecystectomy and MRCP did not show any acute changes and improvement in transaminitis noted and she was also treated for possible pneumonia with antibiotics, had hypoxia thought to be from pneumonia. And also she had prednisone taper for psoriatic arthritis and was discharged to rehab. She reports feeling better at rehab but was discharged to home about 1 week ago [employer] since when she started feeling very weak/exercise/body aches/nausea/poor appetite/not feeling well which prompted her to come to the ED again 12/25/2023. Of note, she also reports generalized body aches, left-sided weakness and increased left-sided pain which is about the same since last admission. Hemodynamics were okay at presentation. She is being managed for the following: Recent EBV infection Easy fatigability/generalized body aches/poor appetite Patient with continued symptoms of easy fatigability/generalized weakness/poor appetite. Was briefly better during rehab stay but again worse after being discharged to home. Patient was recently diagnosed with EBV infection in her last admission. Admitting respiratory viral panel negative, admitting UA negative for UTI, admitting TSH WNL, admitting LFT WNL. Admitting CBC and BMP WNL. Admitting CTAP with no new acute finding. Nausea control, IV fluids, PT/OT ID evaluated, sent HIV test/RPR/blood culture - follow results. No acute indication for antimicrobial/antiviral therapy at this time. Consider holding Ozempic upon discharge until further discussion with OP provider, patient would like to discuss alternative with her own outpatient provider. Left sided weakness: Patient reports left-sided weakness associated with increased pain persisting since last admission -no changes/improvement. She had MRI brain in her last admission which came back negative. Neuro evaled -MRI brain/cervical and thoracic spine and CTA head and neck, echocardiogram, Zio patch at discharge, A1c/fasting lipid/homocystine/TSH/D- dimer, DAPT for 3 weeks, high-dose statin if tolerated. CT of the head and neck with no acute finding. Other imaging send lab test pending --> no acute finding. Side effect of atorvastatin discussed with patient in detail including myositis/myopathy/CPK elevation/LFT elevation and need to monitor for side effe ct. Patient agreeable to start on atorvastatin. Start atorvastatin 12/27. D-dimer elevation was is appropriate. CTA chest was done which came back negative for PE. Other chronic medical conditions: T2DM: On Ozempic at home. Hold on DC - pt would like to discuss alternative w/ her OP provider. Sliding scale insulin while in hospital. Psoriatic arthritis: Recently treated with prednisone taper for flare. Continue to monitor. GERD: Continue PPI Depression and anxiety: Continue home duloxetine and BuSpar Hypothyroidism: Continue home Synthroid. TSH WNL this admission Migraine: c/w home imitrex prn. DVT prophylaxis: Lovenox Disposition: PT/OT, CM to assist with DC planning Full code Admission and Anticipated Discharge Date Admission Date: December 26, 2023 Subjective Patient was seen and examined at bedside. Patient was lying in bed, on room air, NAD, no new acute event overnight. Patient reports some nausea which is chronic given her gastric bypass history/Ozempic at home, is able to eat her breakfast, reports improvement in her generalized pain, reports improvement in her left-sided weakness. Reports feeling better today. Physical Exam Physical Exam: General- adult Head- Not in distress Eyes- PERRL. ENT- oropharynx clear Neck- supple, no JVD. Lungs- clear to auscultation no wheezing or crackles Heart- regular rate and rhythm; no murmur, no gallop. Abdomen- normal bowel sounds, soft, mild luq tenderness, no distension. Extremities- mild pretibial edema present. Neuro- alert, oriented PERRL, ; no facial palsy; no dysarthria; moves extremities. Skin- warm & dry Results & Data Results & Data Vital Signs (Past 12 Hours) Vital Signs Temp Pulse Pulse Resp BP Pulse Ox O2 Del Method 12/28/23 16:41 87 12/28/23 15:02 36.7 C 74 16 111/64 90 Room Air 12/28/23 11:15 36.8 C 19 93 Room Air 12/28/23 07:57 36.7 C 74 20 103/67 98 Room Air 12/28/23 07:36 69
[2023-12-28] MEDS: ATORVASTATIN 40 MG TAB PO SCH (21:26)
[2023-12-29 04:56] LABS: Hematocrit (blood only) 35.7 % (37.0-47.0); Hemoglobin 11.7 g/dl (12.0-16.0); Mean Corpuscular Hemoglobin 30.8 pg (25.0-34.0); Mean Corpuscular Hgb Conc 32.8 g/dL (32.0-36.0); Mean Corpuscular Volume 93.9 fL (80.0-100.0); Mean Platelet Volume 9.5 fL (9.4-12.4); Platelet Count 241 K/uL (130-400); RDW Coefficient of Variation 14.3 % (11.5-14.5); RDW Standard Deviation 48.4 fL (36.4-46.3); White Blood Count 6.49 K/ul (4.8-10.8)
[2023-12-29 05:25] LABS: BUN Creatinine Ratio 15.6 (10-20); Calcium 8.9 mg/dl (8.6-10.3); Creatinine Clr Calc Pharmacy 74.9 ml/min; Est GFR (African American) 80.5 ml/min; Est GFR (Non-African American) 69.5 ml/min; Potassium 4.3 mmol/L (3.5-5.1)
--- NOTE | 2023-12-29 16:45 | Hospitalist Progress Note ---
Date of Service December 29, 2023 Assessment & Plan (1) Fatigue: Plan: 58-year-old female w/ PMH of type 2 diabetes, hypothyroidism, mild intermittent asthma, GERD, morbid obesity, psoriatic arthropathy, migraine, iron deficiency anemia, depression, gastric bypass, pulmonary embolism, C. difficile infection, panic attack who was recently in the hospital for fever and body aches and workup showed EBV serology positive. She also found to have transaminitis mild CBD dilatation thought to be from history of cholecystectomy and MRCP did not show any acute changes and improvement in transaminitis noted and she was also treated for possible pneumonia with antibiotics, had hypoxia thought to be from pneumonia. And also she had prednisone taper for psoriatic arthritis and was discharged to rehab. 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 Of note, she also reports generalized body aches, left-sided weakness and increased left-sided pain which is about the same since last admission. Hemodynamics were okay at presentation. She is being managed for the following: Recent EBV infection Easy fatigability/generalized body aches/poor appetite Patient with continued symptoms of easy fatigability/generalized weakness/poor appetite. Was briefly better during rehab stay but again worse after being discharged to home. Patient was recently diagnosed with EBV infection in her last admission. Admitting respiratory viral panel negative, admitting UA negative for UTI, admitting TSH WNL, admitting LFT WNL. Admitting CBC and BMP WNL. Admitting CTAP with no new acute finding. Nausea control, IV fluids, PT/OT ID evaluated, sent HIV test/RPR/blood culture - follow results. No acute indication for antimicrobial/antiviral therapy at this time. Consider holding Ozempic upon discharge until further discussion with OP provider, patient would like to discuss alternative with her own outpatient provider. Left sided weakness: Patient reports left-sided weakness associated with increased pain persisting since last admission -no changes/improvement. She had MRI brain in her last admission which came back negative. Neuro evaled -MRI brain/cervical and thoracic spine and CTA head and neck, echocardiogram, Zio patch at discharge, A1c/fasting lipid/homocystine/TSH/D- dimer, DAPT for 3 weeks, high-dose statin if tolerated. CT of the head and neck with no acute finding. Other imaging send lab test pending --> no acute finding. c/w atorvastatin 12/27. D-dimer elevation was is appropriate for age. CTA chest was done which came back negative for PE. Other chronic medical conditions: T2DM: On Ozempic at home. Hold on DC - pt would like to discuss alternative w/ her OP provider. Sliding scale insulin while in hospital. Psoriatic arthritis: Recently treated with prednisone taper for flare. Continue to monitor. GERD: Continue PPI Depression and anxiety: Continue home duloxetine and BuSpar Hypothyroidism: Continue home Synthroid. TSH WNL this admission Migraine: c/w home imitrex prn. DVT prophylaxis: Lovenox Disposition: PT/OT, CM to assist with DC planning. HH arranged per cm. Full code Admission and Anticipated Discharge Date Admission Date: December 26, 2023 Subjective Patient was seen and examined at bedside. Patient was lying in bed, on room air, NAD, no new acute event overnight. Patient reports some nausea which is chronic given her gastric bypass history/Ozempic at home, is able to eat her breakfast, reports improvement in her generalized pain, continues to report improvement in her left-sided weakness. Reports feeling better . Physical Exam Physical Exam: General- adult Head- Not in distress Eyes- PERRL. ENT- oropharynx clear Neck- supple, no JVD. Lungs- clear to auscultation no wheezing or crackles Heart- regular rate and rhythm; no murmur, no gallop. Abdomen- normal bowel sounds, soft, mild luq tenderness, no distension. Extremities- mild pretibial edema present. Neuro- alert, oriented PERRL, ; no facial palsy; no dysarthria; moves extrem ities. Skin- warm & dry Results & Data Results & Data Vital Signs (Past 12 Hours) Vital Signs Temp Pulse Pulse Resp BP Pulse Ox O2 Del Method 12/29/23 15:28 92 H 12/29/23 15:24 36.5 C 75 20 97/63 L 95 Room Air 12/29/23 11:42 36.7 C 75 18 97/68 L 94 Room Air 12/29/23 09:36 70 12/29/23 07:16 36.8 C 76 16 108/69 92 Room Air
--- NOTE | 2023-12-30 15:32 | Hospitalist Progress Note ---
Date of Service December 30, 2023 Assessment & Plan (1) Fatigue: Plan: 58-year-old female w/ PMH of type 2 diabetes, hypothyroidism, mild intermittent asthma, GERD, morbid obesity, psoriatic arthropathy, migraine, iron deficiency anemia, depression, gastric bypass, pulmonary embolism, C. difficile infection, panic attack who was recently in the hospital for fever and body aches and workup showed EBV serology positive. She also found to have transaminitis mild CBD dilatation thought to be from history of cholecystectomy and MRCP did not show any acute changes and improvement in transaminitis noted and she was also treated for possible pneumonia with antibiotics, had hypoxia thought to be from pneumonia. And also she had prednisone taper for psoriatic arthritis and was discharged to rehab. She reports feeling better at rehab but was discharged to home about 1 week ago [employer] since when she started feeling very weak/exercise/body aches/nausea/poor appetite/not feeling well which prompted her to come to the ED again 12/25/2023. Of note, she also reports generalized body aches, left-sided weakness and increased left-sided pain which is about the same since last admission. Hemodynamics were okay at presentation. She is being managed for the following: Recent EBV infection Easy fatigability/generalized body aches/poor appetite Patient with continued symptoms of easy fatigability/generalized weakness/poor appetite. Was briefly better during rehab stay but again worse after being discharged to home. Patient was recently diagnosed with EBV infection in her last admission. Admitting respiratory viral panel negative, admitting UA negative for UTI, admitting TSH WNL, admitting LFT WNL. Admitting CBC and BMP WNL. Admitting CTAP with no new acute finding. Nausea control, IV fluids, PT/OT ID evaluated, sent HIV test/RPR/blood culture - follow results. No acute indication for antimicrobial/antiviral therapy at this time. Consider holding Ozempic upon discharge until further discussion with OP provider, patient would like to discuss alternative with her own outpatient provider. Left sided weakness: Patient reports left-sided weakness associated with increased pain persisting since last admission -no changes/improvement. She had MRI brain in her last admission which came back negative. Neuro evaled -MRI brain/cervical and thoracic spine and CTA head and neck, echocardiogram, Zio patch at discharge, A1c/fasting lipid/homocystine/TSH/D- dimer, DAPT for 3 weeks, high-dose statin if tolerated. CT of the head and neck with no acute finding. Other imaging send lab test pending --> no acute finding. c/w atorvastatin 12/27. D-dimer elevation was is appropriate for age. CTA chest was done which came back negative for PE. Reports improving left sided weakness. Other chronic medical conditions: T2DM: On Ozempic at home. Hold on DC - pt would like to discuss alternative w/ her OP provider. Sliding scale insulin while in hospital. Psoriatic arthritis: Recently treated with prednisone taper for flare. Continue to monitor. GERD: Continue PPI Depression and anxiety: Continue home duloxetine and BuSpar Hypothyroidism: Continue home Synthroid. TSH WNL this admission Migraine: c/w home imitrex prn. DVT prophylaxis: Lovenox Disposition: PT/OT, CM to assist with DC planning. HH arranged per cm. Full code Admission and Anticipated Discharge Date Admission Date: December 26, 2023 Subjective Patient was seen and examined at bedside. Patient was lying in bed, on room air, NAD, no new acute event overnight. Patient reports some nausea which is chronic given her gastric bypass history/Ozempic at home, is able to eat her breakfast, reports improvement in h er generalized pain, continues to report improvement in her left-sided weakness. Reports feeling tired today . Physical Exam Physical Exam: General- adult Head- Not in distress Eyes- PERRL. ENT- oropharynx clear Neck- supple, no JVD. Lungs- clear to auscultation no wheezing or crackles Heart- regular rate and rhythm; no murmur, no gallop. Abdomen- normal bowel sounds, soft, mild luq tenderness, no distension. Extremities- mild pretibial edema present. Neuro- alert, oriented PERRL, ; no facial palsy; no dysarthria; moves extremities. Skin- warm & dry Results & Data Results & Data Vital Signs (Past 12 Hours) Vital Signs Temp Pulse Pulse Resp BP Pulse Ox O2 Del Method 12/30/23 14:43 36.8 C 88 16 90/58 L 95 Room Air 12/30/23 11:11 36.6 C 76 20 117/82 93 Room Air 12/30/23 07:27 36.5 C 20 116/69 96 Room Air 12/30/23 07:19 69
--- NOTE | 2023-12-31 11:33 | Discharge Summary ---
Date of Service December 31, 2023 Admission HPI Per Admitting Provider 58-year-old female with past medical history significant for type 2 diabetes, hypothyroidism, mild intermittent asthma, GERD, morbid obesity, psoriatic arthropathy, migraine, iron deficiency anemia, depression, history of gastric bypass, history of pulmonary embolism, history of C. difficile infection, history of panic attack was recently in the hospital for fever and bodyaches and workup showed EBV serology positive. She also found to have transaminitis mild CBD dilatation thought to be from history of cholecystectomy and MRCP did not show any acute changes and improvement in transaminitis noted and she was also treated for possible pneumonia with antibiotics, had hypxia thought to be from pneumonia.And also she had prednisone taper for psoriatic arthritis and was discharged to rehab . Says she came back home 1 week ago. Again she was feeling very weak, exhausted, body aches, nauseous poor appetite, not feeling well which prompted her to come to the ER again today. Has headache. Has neck pain. Has back pain. Denies any chest pain or shortness of breath. Has mild left upper quadrant abdominal pain. Normal bowel and bladder movements. No cough. No sore throat. No difficulty swallowing. Hemodynamics are okay. With ongoing symptoms she is worried about her recent infection. She also has some ambulatory dysfunction not able to ambulate much because of pain in the lower extremities and also weakness in his left lower extremity which is not new which has been there last admission and MRI was done last admission to check for multiple sclerosis and it was okay. Q fever workup was also done which is pending at time of discharge which came back negative. Currently hemodynamics are okay Past medical history. As mentioned above Past surgical history. Left total knee arthroplasty. Cardiac cath. Carpal tunnel surgery bilaterally. Open cholecystectomy. Colonoscopy and EGD. ,panniculectomy,. Gastric revision for obesity. Knee arthroscopy. Right knee synovectomy. Right total knee replacement. Woodrow tooth removal. Total abdominal hysterectomy with tubes. Which biopsy of liver. Social history. . No smoking. No alcohol use. No drug use. Family history. Father had cancer. Aunt has psoriatic arthritis. Sister has asthma. Daughter has blood disorder. Fibromyalgia. Multiple sclerosis. Admission Exam Per Admitting Provider General- adult Head- Not in distress Eyes- PERRL. ENT- oropharynx clear Neck- supple, no JVD. Lungs- clear to auscultation no wheezing or crackles Heart- regular rate and rhythm; no murmur, no gallop. Abdomen- normal bowel sounds, soft, mild luq tenderness, no distension. Extremities- mild pretibial edema present, weakness of left lower extremity Neuro- alert, oriented PERRL, ; no facial palsy; no dysarthria; power 4/5 rt lower extremity 3/5 left lower extremity; Skin- warm & dry Principal Diagnosis Recent EBV infection Easy fatigability/generalized body aches/poor appetite Acute exacerbation of chronic nausea given history of bariatric surgery and on Ozempic at home. Left-sided weakness Discharge Exam General- adult Head- Not in distress Eyes- PERRL. ENT- oropharynx clear Neck- supple, no JVD. Lungs- clear to auscultation no wheezing or crackles Heart- regular rate and rhythm; no murmur, no gallop. Abdomen- normal bowel sounds, soft, no luq tenderness, no distension. Extremities- mild pretibial edema present. Neuro- alert, oriented PERRL, ; no facial palsy; no dysarthria; moves extremities. Skin- warm & dry Discharge Data Allergies Allergy/AdvReac Type Severity Reaction Status Date / Time ketorolac Allergy Intermediate Itching Verified 12/25/23 19:57 oxycodone Allergy Intermediate Hives Verified 12/25/23 19:57 piperacillin Allergy Intermediate Pruritus Verified 12/25/23 19:57 tazobactam Allergy Intermediate Pruritus Verified 12/25/23 19:57 vancomycin AdvReac Severe deathly ill Verified 12/25/23 19:57 Consultations 12/26/23 02:19 ED Decision to Admit Stat 12/26/23 09:00 Consult Infectious Diseases Routine 12/26/23 15:15 Consult Neurology Routine Ordered Studies 12/25/23 15:05 CT abd pelvis IV con only Stat 12/27/23 12:20 CT angio neck with con Routine CTA head wo/w [CT angio head wo/w] Routine MRI Brain [MR brain wo/w con] Routine MRI Cervical [MR cervical spine wo/w con] Routine MRI Thoracic [MR thoracic spine wo/w con] Routine 12/28/23 06:06 CT angio chest PE protocol Stat Hospital Course (1) Fatigue: 58-year-old female w/ PMH of type 2 diabetes, hypothyroidism, mild intermittent asthma, GERD, morbid obesity, psoriatic arthropathy, migraine, iron deficiency anemia, depression, gastric bypass, pulmonary embolism, C. difficile infection, panic attack who was recently in the hospital for fever and body aches and workup showed EBV serology positive. She also found to have transaminitis mild CBD dilatation thought to be from history of cholecystectomy and MRCP did not show any acute changes and improvement in transaminitis noted and she was also treated for possible pneumonia with antibiotics, had hypoxia thought to be from pneumonia. And also she had prednisone taper for psoriatic arthritis and was discharged to rehab. She reports feeling better at rehab but was discharged to home about 1 week ago [employer] since when she started feeling very weak/exercise/body aches/nausea/poor appetite/not feeling well which prompted her to come to the ED again 12/25/2023. Of note, she also reports generalized body aches, left-sided weakness and increased left-sided pain which is about the same since last admission. Hemodynamics were okay at presentation. She was managed for the following: Recent EBV infection Easy fatigability/generalized body aches/poor appetite Patient with continued symptoms of easy fatigability/generalized weakness/poor appetite. Was briefly better during rehab stay but again worse after being discharged to home. Patient was recently diagnosed with EBV infection in her last admission. Admitting respiratory viral panel negative, admitting UA negative for UTI, admitting TSH WNL, admitting LFT WNL. Admitting CBC and BMP WNL. Admitting CTAP with no new acute finding. Nausea control, IV fluids, PT/OT ID evaluated, sent HIV test - neg/RPR - neg/blood culture - no growth so far. No acute indication for antimicrobial/antiviral therapy at this time. Consider holding Ozempic upon discharge until further discussion with OP provider, patient would like to discuss alternative with her own outpatient provider. Left sided weakness: Patient reports left-sided weakness associated with increased pain persisting since last admission -no changes/improvement. She had MRI brain in her last admission which came back negative. Neuro evaled -MRI brain/cervical and thoracic spine and CTA head and neck, echocardiogram, Zio patch at discharge, A1c/fasting lipid/homocystine/TSH/D- dimer, DAPT for 3 weeks, high-dose statin if tolerated. CT of the head and neck with no acute finding. Other imaging send lab test pending --> no acute finding. c/w atorvastatin 4/19. D-dimer elevation was is appropriate for age. CTA chest was done which came back negative for PE. Reports improving left sided weakness. Patient to follow-up with neurology upon discharge. Other chronic medical conditions: T2DM: On Ozempic at home. Hold on DC - pt would like to discuss alternative w/ her OP provider. Sliding scale insulin while in hospital. Psoriatic arthritis: Recently treated with prednisone taper for flare. Continue to monitor. GERD: Continue PPI Depression and anxiety: Continue home duloxetine and BuSpar Hypothyroidism: Continue home Synthroid. TSH WNL this admission Migraine: c/w home imitrex prn. DVT prophylaxis: Lovenox Disposition: PT/OT, CM to assist with DC planning. HH arranged per cm. Full code Patient is hemodynamically stable, reports improvement in her body aches and left-sided weakness. Patient has her daughter's appointment today and would like to go home today. She is being discharged with following instruction at the point of discharge: Follow-up with your primary care physician within a week time and likely you will need labs CBC/CMP/magnesium/phosphorus. Because of your chronic nausea in the setting of bariatric surgery history and is getting worse with Ozempic, hold Ozempic until further discussion with outpatient provider. Continue with your physical therapy at home. For your left-sided weakness, neurology evaluated you, you have been started on aspirin and Plavix and atorvastatin. Continue Plavix for 17 more days and then stop. Avoid omeprazole while on Plavix. You will likely benefit from Zio patch monitoring, coordinate with your PCP office to set up the test. Follow-up with neurology in 2 to 4 weeks time upon discharge. You can take Zofran as needed for nausea control. Take your medications as prescribed. Please make sure that you are able to get your medications today by calling your pharmacy before you leave the hospital so that your treatment continuity is not broken. Home Health Attestation I certify that this patient is under my care and that I, or a physicians urgent care physician assistant working with me, had a face to-face encounter that meets the [id number] encounter requirements with this patient. The encounter with the patient was in whole, or in part, for the following medical condition, which is the primary reason for home health care (list medical condition): Harmony-Cox virus, left side weakness and pain I certify that, based on my findings, the following services are medically necessary home health services: My clinical findings support the need for the above services because: OT Assess ADL Status and Restore Function w ADLs PT Assessment for Endurance / Balance / Strength PT Eval for Safety and Mobility PT Eval for Safety, Gait Training, Assistive Devices PT Gait and Balance Training, Strengthening and Safety Further, I certify that my clinical findings support that this patient is homebound (i.e. absences from home require considerable and taxing effort and are for medical reasons or [facility] services or infrequently or of short duration when for other reasons) because: Transportation Assistance/Unable to Leave Home Unassisted Certification for Home Health Services: Based on the above findings, I certify that this patient is confined to the home and needs intermittent half-way care, physical therapy and/or speech therapy or continues to need occupational therapy. The patient is under my care, and I have initiated the establishment of the plan of care. This patient will be followed by a physician who will periodically review the plan of care. Total Time Total Time Spent Total Time Spent (In Minutes): 45 Discharge Plan Discharge Items Patient Disposition: Home - Home Health Services Reason For Visit: WEAKNESS, RECENT EBV INFECTION Discharge Diagnosis: Recent EBV infection Easy fatigability/generalized body aches/poor appetite Acute exacerbation of chronic nausea given history of bariatric surgery and on Ozempic at home. Left-sided weakness Activity: As commented below Activity Comment: Continue with home health therapy Non-emergency contact: Primary Care Provider Call non-emergency contact if: you have any medication questions, your symptoms worsen and your temperature is above 101.5 Follow-up/Referrals: Krystyna John MD [Primary Care Provider] - (Date & Time 01/02/2024 11:00 AM Provider Shell Pinon MD Department General Internal Medicine [facility] ) Diet: Carb Consistent or DM2 and Heart Healthy Addtl Attending Provider Instructions: Follow-up with your primary care physician within a week time and likely you will need labs CBC/CMP/magnesium/phosphorus. Because of your chronic nausea in the setting of bariatric surgery history and is getting worse with Ozempic, hold Ozempic until further discussion with outpatient provider. Continue with your physical therapy at home. For your left-sided weakness, neurology evaluated you, you have been started on aspirin and Plavix and atorvastatin. Continue Plavix for 17 more days and then stop. Avoid omeprazole while on Plavix. You will likely benefit from Zio patch monitoring, coordinate with your PCP office to set up the test. Follow-up with neurology in 2 to 4 weeks time upon discharge. You can take Zofran as needed for nausea control. Take your medications as prescribed. Please make sure that you are able to get your medications today by calling your pharmacy before you leave the hospital so that your treatment continuity is not broken. Pending Studies at Discharge: Yes Stand-Alone Forms: My [facility], Smoking Cessation Medications and DC Order Prescriptions: New atorvastatin 40 mg Tablet 40 mg PO HS Qty: 30 0RF aspirin 81 mg Tablet,Delayed Release (Dr/Ec) 81 mg PO QAM Qty: 30 0RF ondansetron 4 mg tablet,disintegrating 4 mg PO BID PRN (Reason: nausea and vomiting) Qty: 30 0RF clopidogrel 75 mg tablet 75 mg PO DAILY 17 Days Qty: 17 0RF Continued sumatriptan succinate [Imitrex] 50 mg Tablet 50 mg PO DIRECTED PRN (Reason: Migraine Headache) Rx Instructions: TAKE ONE TABLET AT ONSET OF HEADACHE, MAY REPEAT DOSE AFTER 2 HOURS IF NEEDED. MAXIMUM OF 2 TABLETS/24 HOURS levothyroxine [Synthroid] 25 mcg Tablet 25 mcg PO DAILYBB Rx Instructions: TAKE THIS MEDICATION ONCE DAILY 30 MINUTES BEFORE BREAKFAST OR ANY OTHER MEDICATIONS pantoprazole [Protonix] 40 mg Tablet,Delayed Release (Dr/Ec) 40 mg PO BID ergocalciferol (vitamin D2) [Vitamin D2] 50,000 unit Capsule 50,000 units PO 2XWK Rx Instructions: TAKE THIS MEDICATION EVERY SUNDAY AND SUNDAY magnesium oxide 400 mg magnesium Tablet 400 mg PO QAM propranolol [Inderal LA] 60 mg Capsule,Extended Release 24 Hr 60 mg PO QAM cholecalciferol (vitamin D3) [Vitamin D3] 50 mcg (2,000 unit) Capsule 2,000 unit PO QAM divalproex [Depakote ER] 250 mg Tablet Extended Release 24 Hr 750 mg PO HS promethazine 25 mg tablet 25 mg PO TID PRN (Reason: Nausea And Vomiting) ferrous sulfate 325 mg (65 mg iron) Tablet 325 mg PO QAM trazodone 150 mg tablet 300 mg PO HS montelukast 10 mg tablet 10 mg PO QAM multivitamin Tablet 1 tab PO DAILY buspirone 15 mg tablet 7.5 mg PO BID duloxetine 60 mg capsule,delayed release(DR/EC) 60 mg PO DAILY Ajovy Syringe 225 mg/1.5 mL syringe 225 mg SUBCUT MONTHLY [id number] [Citracal-D3 Maximum Plus] 325 mg-12.5 mcg -2.75 mg Tablet 1 tab PO DAILY dicyclomine 10 mg capsule 10 mg PO DAILY Held Ozempic 0.25 mg or 0.5 mg (2 mg/3 mL) pen injector 0.25 mg SUBCUT WK Hold Instructions: Resume on 01/17/24. Hold until further discussion with outpatient provider. Rx Instructions: MONDAYS Discharge Orders: Discharge Order (Routine); Ordered 12/31/23 Ordered By: Lorenzo Zelaya/Other Patient Handouts: Managing Type 2 Diabetes Admission Data Admit Date/Time: 12/26/23 02:50 Attending Provider: Lorenzo Corrales Admit Provider: Torey Muñoz Primary Care Provider: Krystyna John Other Providers: Torey Muñoz; Darvin Bolanos; Campos Pacheco; Anthony Dominguez I.; Eliezer Hartman II; Holly Bergman; Collins Munoz; Bryon Golden; Kristel Sewell; Catalino Burnett; Meek Perdomo; Conner Gardner; [facility]
== END 2023-12-31 11:51 | disposition home health service (06) | DRG 866 ==
LOC: ED 14:43 → 3E 12-26 02:50 → 2W 12-27 22:29

== ENCOUNTER 2025-05-08 07:38 | Inpatient (IN) ==
[2025-05-08] MEDS: SODIUM CHLORIDE 0.9% 1,000 ML IV STA (07:53)
[2025-05-08] MEDS: PROCHLORPERAZINE 2 ML IV ONE (07:54)
--- NOTE | 2025-05-08 07:55 | Emergency Department Note ---
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 Patient is accompanied by EMS who provide additional history. the patient reports that she developed a headache overnight. She states this started at 9 PM last night. Patient states she went to bed and woke up this morning with worsening symptoms. She is also reporting paresthesias and the right upper/lower extremities. She reports this feels like a pins and needle sensation. She is also reporting central chest pain that is like a pressure sensation. She notes that her headache seems to be right hemispheric. She also notes vision changes in the right eye. She reports this is blurry vision. Patient states she has a long history of migraines but this feels different and much worse than her typical migraine. She does have significant nausea without emesis. They deny fever or chills. No cough or congestion. Denies chest palpitations. No shortness of breath. They deny abdominal pain and vomiting. No urinary complaints. No recent changes in bowel movements. Patient denies recent changes in medications or OTC supplements. Patient offers no other complaints, today. ADDITIONAL HISTORY OBTAINED: Per HPI Chronic Medical/Social Conditions Affecting Care: Per HPI PAST MEDICAL HISTORY: See Below PAST SURGICAL HISTORY: See Below FAMILY HISTORY: See Below SOCIAL HISTORY: See Below HOME MEDICATIONS: See Below ALLERGIES: See Below VITALS: See Below PHYSICAL EXAMINATION: GENERAL: Sitting up in bed, alert, well appearing, well nourished, no distress, non-toxic EYE EXAM: normal conjunctiva. PERRL and EOM's grossly intact. OROPHARYNX: no exudate, no erythema, lips, buccal mucosa, and tongue normal and mucous membranes are moist NECK: supple, no nuchal rigidity, no adenopathy, non-tender LUNGS: Clear to auscultation. Normal chest wall mechanics HEART: no murmurs, regular rate, regular rhythm ABDOMEN: abdomen soft, non-tender, no masses, no rebound or guarding. BACK: Back is symmetrical on inspection and there is no deformity, no midline tenderness, no CVA tenderness. SKIN: no rashes and no bruising UPPER EXTREMITIES: upper extremities are grossly normal. LOWER EXTREMITIES: No pitting edema. NEURO EXAM: Normal sensorium, GCS 15, normal speech, no gross weakness of arms, no gross weakness of legs. No drift. Finger to nose intact. Gross sensation intact besides mild paresthesias of the R extremities. NIHSS 1. MEDICAL DECISION MAKING: Differential diagnoses includes but not limited to strokelike symptoms, CVA, intracranial hemorrhage, hydrocephalus, intracranial mass, migraine, tension type headache, electrolyte derangements, ACS, dysrhythmia, pneumonia, pneumothorax, pleural effusion In summary, this is a 60 year old female who presented with stroke like symptoms. Differential as above. Nursing notes and pertinent past medical records reviewed. Vital signs reviewed and the patient is hypertensive but otherwise afebrile hemodynamically stable. History and presentation revealed prior TIA in the past that felt similar to the patient. Patient states at that point she was actually anticoagulated. Patient is on risk reduction therapies. Her risk is heightened by a PFO that is known to the patient. She is post to have this surgically corrected in the next few months. Physical examination revealed NIHSS 1. As a result of my initial evaluation, while the patient's symptoms could be related to TIA or CVA, I do feel they are more likely related to a migraine. She does have stroke risk factors, and therefore we will plan for further evaluation with CT imaging of the head and neck as well as basic lab work. Will manage the patient as a migraine with IV fluid resuscitation as well as Compazine. Diagnostics interpreted by me include EKG and cardiac monitoring as listed below: -Cardiac Monitoring: An order was placed for continuous cardiac monitoring. The monitor shows a rate of 60-80s with regular rhythm. -ECG: EKG independently interpreted by me reveals normal sinus rhythm at a ventricular rate of [address] segment changes to suggest STEMI. Intervals are within normal limits. Patient completed laboratory studies and imaging. Results independently interpreted by me are no significant anemia or leukocytosis. Coagulation studies are normal. Patient has mild hyperchloride anemia. Minimal hyperglycemia present. Alkaline phosphatase is only mildly elevated. Rest of the patient's LFTs are normal. Troponin was normal. The patient was managed with IVFR and Compazine, initially. I considered escalation of care including stroke alert as well as neurology evaluation but her symptoms are minimal and unclear last known well time. Do not feel the patient is candidate for thrombectomy as large vessel occlusion is not a concern. Also do not feel she is a candidate for TNK given the timing of symptoms. ABCD2 scoring is high risk. Will plan for admission with MRI. Considered outpatient management but inpatient is reasonable and preferred by the patient. Reevaluated the patient and she is still having symptoms. Will provide IV Tylenol and Zofran. Plan for admission following CT scans. I will also Bulah Decadron for rebound migraines. Do feel the patient symptoms today are largely consistent with a migraine but given her risk factors for stroke, I do feel it is necessary for inpatient management and further evaluation with MRI. Ultimately, the decision was made to admit the patient for migraine and stroke like symptoms. It was recommended to admit this patient at 0931. I discussed the case with the hospitalist service via telephone/Tiger[employer] and they are agreeable to admit the patient to their services. Based on the above, including the patient's age, coexisting illnesses, labs, imaging, and exam findings the decision to treat as an inpatient. I discussed the patient with the hospitalist team who recommended admission to their services. They received the medications, treatments, interventions indicated above and their condition remained stable. I discussed my findings with the patient and their family and they understand and agree with the treatment plan. All patient / family questions were answered to their satisfaction. Consults/Care Managements Discussions: Per [facility] ER treatment provided: See above Procedures:none Critical Care: None The chart was completed utilizing [employer] Speech voice recognition software. Grammatical errors, random word insertions, pronoun errors, and incomplete sentences are an occasional consequence of this system due to software limitations, ambient noise, and hardware issues. Any formal questions or concerns about the content, text, or information contained within the body of this dictation should be directly addressed to the physician for clarification. Past Med/Surg History Problem List Stroke-like symptoms (Acute) Migraine (Acute) Nocturnal hypoxia Hypertension Chest pain (Acute) Myalgia (Acute) 02/01/24 Arthralgia (Acute) Ambulatory dysfunction (Acute) Blurred vision (Acute) 02/01/24 Left hemiparesis 12/27/23 Fatigue (Acute) Acute sore throat (Acute) 12/25/23 Abdominal pain (Acute) 12/25/23 Fever (Acute) 12/06/23 Leukocytosis (Acute) Body aches (Acute) 12/06/23 Hypoxia (Acute) duplicate Transaminitis 12/06/23 Hypoxia 12/06/23 Febrile illness 12/06/23 DM II (diabetes mellitus, type II), controlled History of gastric bypass (Acute) Hypothyroidism Migraine Vertigo (Chronic) Psoriatic arthritis (Chronic) MINI (iron deficiency anemia) (Chronic) Sleep apnea (Chronic) Depression (Chronic) GERD (gastroesophageal reflux disease) (Chronic) Medical History PFO (patent foramen ovale) History of pneumonia (12/2023) treated while inpatient Hx of Clostridium difficile infection (2020) Psoriatic arthritis Hx of deep venous thrombosis per hx, pt. denies Hx pulmonary embolism (2015) during time pt. was an inpatient, was started on Coumadin x 6 months, no problems since this time History of anemia Depression with anxiety GERD (gastroesophageal reflux disease) Hx of migraines 1 x per week DM II (diabetes mellitus, type II), controlled oxempic Hypothyroidism History of Harmony-Cox virus infection (12/21/23) treated with abx, inpt at [facility], all symptoms resolved Sleep apnea no cpap, no testing yest History of postoperative nausea and vomiting History of gastric ulcer Surgical History History of esophagogastroduodenoscopy (EGD) Hx of colonoscopy Hx of cardiac catheterization (2019) [facility], no mi, no stents, follows with cassie (03/2024) Hx of gastric bypass (2009) History of carpal tunnel release of both wrists (1990) S/P total hysterectomy Hx of tonsillectomy S/P cholecystectomy History of bilateral knee replacement S/P appendectomy Family History Mother Rheumatoid arthritis Father Cancer blood cancer Denies family history of Hypertension Social History Smoking Status: Never smoker Second Hand Exposure: No; Do You Dip or Chew Tobacco: No; Hx Alcohol Use: No Hx Substance Use: No Preferred Language: Romansh Communication Ability: Effective Ict Customer Support Officer Required: No Beliefs That Will Affect Care: None marital status: Current Living Situation: Family Current Living Situation Comment: Lives at daughter's house Other Information That Helps Us Care for You: No Feels Safe at Home: No Is there a partner from a previous relationship who is making you feel unsafe now?: No Any Concerns about Your Family Situation: No Would You Like to Speak to Someone About Your Situation: No Safety Concerns: Feels Safe At This Time Assistive Devices: Glasses and Walker Allergies Allergies Allergy/AdvReac Type Severity Reaction Status Date / Time ketorolac Allergy Intermediate ITCHY HIVES Verified 02/02/25 23:27 oxycodone Allergy Intermediate ITCHY HIVES Verified 02/02/25 23:27 piperacillin Allergy Intermediate Pruritus Verified 02/02/25 23:27 tazobactam Allergy Intermediate Pruritus Verified 02/02/25 23:27 vancomycin AdvReac Severe deathly ill Verified 02/02/25 23:27 Home Meds Home Medications Medication Instructions Recorded Confirmed aspirin 81 mg tablet,delayed 81 mg PO QAM 02/02/24 05/08/25 release atorvastatin 40 mg tablet 40 mg PO HS 02/02/24 05/08/25 cholecalciferol (vitamin D3) 50 50 mcg PO QAM 02/02/24 05/08/25 mcg (2,000 unit) tablet (Vitamin D3) dicyclomine 10 mg capsule 10 mg PO QAM 02/02/24 05/08/25 duloxetine 60 mg capsule,delayed 60 mg PO QAM 02/02/24 05/08/25 release galcanezumab-gnlm 120 mg/mL 120 mg subcut MONTHLY 02/02/24 05/08/25 subcutaneous pen injector (Emgality Pen) levothyroxine 25 mcg tablet 25 mcg PO DAILYBB 02/02/24 05/08/25 magnesium oxide 400 mg PO QAM 02/02/24 05/08/25 pantoprazole 40 mg tablet,delayed 40 mg PO BID 02/02/24 05/08/25 release propranolol 60 mg capsule,24 60 mg PO QAM 02/02/24 05/08/25 hr,extended release montelukast 10 mg tablet 10 mg PO QAM 03/31/24 05/08/25 (Singulair) acetaminophen 325 mg tablet 650 mg PO Q4H PRN PAIN/FEVER>100.5F 02/02/25 05/08/25 (Tylenol) albuterol sulfate 90 mcg/actuation 2 puff inhalation Q4H PRN Cough 02/02/25 05/08/25 aerosol inhaler calcium 325 mg-vit D3 12.5 1 tab PO DAILY 02/02/25 05/08/25 mcg-zinc 2.75 py-fwlvko-ykhcfmwzw tablet (Citracal-D3 Maximum Plus) cyanocobalamin (vitamin B-12) 1,000 mcg IM .Q12WKS 02/02/25 05/08/25 1,000 mcg/mL injection solution divalproex 250 mg tablet,extended 125 mg PO HS 02/02/25 05/08/25 release 24 hr (Depakote ER) ferrous sulfate 325 mg (65 mg 325 mg PO DAILY 02/02/25 05/08/25 iron) tablet folic acid 1 mg tablet 1 mg PO DAILY 02/02/25 05/08/25 ipratropium 0.5 mg-albuterol 3 mg 3 ml inhalation QID PRN sob 02/02/25 05/08/25 (2.5 mg base)/3 mL nebulization soln methotrexate sodium 25 mg/mL 20 mg subcut WK 02/02/25 05/08/25 injection solution multivitamin 1 tab PO DAILY 02/02/25 05/08/25 semaglutide 1 mg/dose (4 mg/3 mL) 1 mg subcut WK 02/02/25 05/08/25 subcutaneous pen injector (Ozempic) sumatriptan succinate 50 mg tablet 50 mg PO DIRECTED PRN Migraine 02/02/25 05/08/25 (Imitrex) Headache trazodone 100 mg tablet 300 mg PO HS 02/03/25 05/08/25 famotidine 20 mg tablet 20 mg PO BID acid reflux 05/08/25 05/08/25 promethazine 25 mg tablet 25 mg PO DAILY PRN Nausea 05/08/25 05/08/25 Previous Rx's Medication Instructions Recorded buspirone 7.5 mg tablet 7.5 mg PO TID #90 tabs 02/07/25 Results & Data (ED) Vital Signs Vital Signs - 24 hr 05/08/25 07:44 05/08/25 07:57 05/08/25 07:58 Temperature 36.7 C Temperature Source Oral Pulse Rate 75 Pulse Rate [Apical] 86 Pulse Rhythm Regular Pulse Strength Normal Respiratory Rate 19 19 Respiratory Effort / Characteristics Non-Labored Spontaneous Non-Labored Spontaneous Respiratory Depth Normal Normal Respiratory Pattern Regular Regular Blood Pressure 165/107 H Blood Pressure [Left Arm] 164/105 H Blood Pressure Mean 126 Blood Pressure Mean [Left Arm] 124 Pulse Oximetry 94 93 93 Oxygen Delivery Method Room Air Room Air Room Air Sepsis Recent Fever Within 48 Hours No Sepsis New/Unexplained Change in Mental Status No Sepsis Action Taken by Nursing No Action Required 05/08/25 08:17 05/08/25 09:24 Temperature Temperature Source Pulse Rate 69 Pulse Rate [Apical] 73 Pulse Rhythm Pulse Strength Respiratory Rate 18 Respiratory Effort / Characteristics Non-Labored Spontaneous Respiratory Depth Normal Respiratory Pattern Regular Blood Pressure Blood Pressure [Left Arm] 140/88 Blood Pressure Mean Blood Pressure Mean [Left Arm] 105 Pulse Oximetry 93 Oxygen Delivery Method Room Air Sepsis Recent Fever Within 48 Hours Sepsis New/Unexplained Change in Mental Status Sepsis Action Taken by Nursing Laboratory Data 05/08/25 07:51 05/08/25 07:51 Lab Results 05/08/25 Range/Units 07:51 WBC 6.80 (4.8-10.8) K/ul RBC 4.02 L (4.20-5.40) M/uL Hgb 12.6 (12.0-16.0) g/dl Hct 36.2 L (37.0-47.0) % MCV 90.0 (80.0-100.0) fL MCH 31.3 (25.0-34.0) pg MCHC 34.8 (32.0-36.0) g/dL RDW Std Deviation 45.6 (36.4-46.3) fL RDW Coeff of Halley 13.7 (11.5-14.5) % Plt Count 301 (130-400) K/uL MPV 9.4 (9.4-12.4) fL Immature Gran % (Auto) 0.3 % Neut % (Auto) 44.5 % Lymph % (Auto) 42.2 % Tarrant % (Auto) 9.0 % Eos % (Auto) 3.1 % Baso % (Auto) 0.9 % Neut # (Auto) 3.03 (1.40-6.50) K/uL Lymph # (Auto) 2.87 (1.20-3.40) K/uL Tarrant # (Auto) 0.61 H (0.11-0.59) K/uL Eos # (Auto) 0.21 (0.00-0.50) K/uL Baso # (Auto) 0.06 (0.00-0.20) K/uL Immature Gran # (Auto) 0.02 (0.01-0.20) K/uL PT 10.3 (9.0-12.0) Seconds INR 0.9 (0.9-1.1) APTT 25 (21-31) Seconds PTT Ratio 0.9 Sodium 140 (136-145) mmol/L Potassium 4.1 (3.5-5.1) mmol/L Chloride 108 H (98-107) mmol/L Carbon Dioxide 25 (21-32) mmol/L Anion Gap 7 (3-11) BUN 14 (6-23) mg/dl Creatinine 0.72 (0.6-1.2) mg/dl Est Cr Clr Drug Dosing 94.4 ml/min eGFR 94.48 BUN/Creatinine Ratio 19.4 (10-20) Glucose 113 H (70-99(Fasting)) mg/dl Estimat Average Glucose 120 mg/dl Hemoglobin A1c 5.8 H (4.5-5.6) % Calcium 8.9 (8.6-10.3) mg/dl Total Bilirubin 0.5 (0.2-1.0) mg/dl AST 19 (13-39) U/L ALT 14 (7-52) U/L Alkaline Phosphatase 105 H (34-104) U/L Troponin I High Sens 4.4 (0-14) pg/ml Total Protein 6.3 (6.0-8.3) gm/dl Albumin 3.7 (3.4-5.0) gm/dl Globulin 2.6 (2.5-4.0) gm/dl Albumin/Globulin Ratio 1.4 (0.9-2) Lipase 11 (11-82) U/L Administered Medications Discontinued Medications Aspirin (Aspirin 81 Mg Ectab) 81 mg PO NOW STA Stop: 05/08/25 11:46 Last Admin: 05/08/25 12:16 Dose: 81 mg Documented By: CORIN Buspirone HCl (Buspirone 7.5 Mg Tab) 7.5 mg PO NOW STA Stop: 05/08/25 13:56 Last Admin: 05/08/25 14:40 Dose: 7.5 mg Documented By: CORIN Dexamethasone (Dexamethasone Sod Inj 4 Mg/Ml Vial) 10 mg IV NOW STA Stop: 05/08/25 09:31 Last Admin: 05/08/25 09:35 Dose: 10 mg Documented By: CORIN Dicyclomine HCl (Dicyclomine Hcl 10 Mg Cap) 10 mg PO NOW STA Stop: 05/08/25 11:47 Last Admin: 05/08/25 12:16 Dose: 10 mg Documented By: CORIN Duloxetine HCl (Duloxetine Hcl 60 Mg Cap) 60 mg PO NOW STA Stop: 05/08/25 11:47 Last Admin: 05/08/25 12:30 Dose: 60 mg Documented By: CORIN Sodium Chloride (Nss) 1,000 mls @ 999 mls/hr IV .Q1H1M STA Stop: 05/08/25 08:46 Last Infusion: 05/08/25 09:25 Dose: Infused Documented By: Admin: 05/08/25 07:53 Dose: 999 mls/hr Documented By: JEROME Prochlorperazine (Compazine) 2 mls @ 1 mls/min IV ONE ONE Stop: 05/08/25 07:47 Last Admin: 05/08/25 07:54 Dose: 1 mls/min Documented By: JEROME Acetaminophen (Ofirmev) 1,000 mg in 100 mls @ 400 mls/hr IV NOW STA Stop: 05/08/25 09:30 Last Infusion: 05/08/25 10:47 Dose: Infused Documented By: Admin: 05/08/25 09:32 Dose: 400 mls/hr Documented By: CORIN Ioversol (Optiray 320 125ml) 120 ml IV ONCE ONE Stop: 05/08/25 09:07 Last Admin: 05/08/25 09:07 Dose: 120 ml Documented By: HAO Levothyroxine Sodium (Levothyroxine Sodium 25 Mcg Tablet) 25 mcg PO NOW STA Stop: 05/08/25 11:47 Last Admin: 05/08/25 12:30 Dose: 25 mcg Documented By: CORIN Magnesium Oxide (Magnesium Oxide 400 Mg Tab) 400 mg PO NOW STA Stop: 05/08/25 11:47 Last Admin: 05/08/25 12:16 Dose: 400 mg Documented By: CORIN Metoclopramide HCl (Metoclopramide Hcl Inj 5 Mg/Ml 2 Ml Vial) 10 mg IV NOW STA Stop: 05/08/25 11:18 Last Admin: 05/08/25 12:16 Dose: 10 mg Documented By: CORIN Ondansetron HCl (Ondansetron Inj 2 Mg/Ml 2 Ml Vial) 4 mg IV NOW STA Stop: 05/08/25 09:17 Last Admin: 05/08/25 09:32 Dose: 4 mg Documented By: CORIN Propranolol HCl (Propranolol Hcl 60 Mg La Cap) 60 mg PO NOW STA Stop: 05/08/25 11:47 Last Admin: 05/08/25 12:30 Dose: 60 mg Documented By: CORIN Vitamin D (Cholecalciferol 25 Mcg (1000 Units) Tab) 50 mcg PO NOW STA Stop: 05/08/25 11:46 Last Admin: 05/08/25 12:30 Dose: 50 mcg Documented By: CORIN Imaging Data Radiologist's Impression: Chest X-Ray 05/08/25 07:46 SINGLE VIEW CHEST CLINICAL HISTORY: Chest pain FINDINGS: An AP, portable, upright chest radiograph is compared to study dated 02/06/2025 and correlated with chest CT dated 02/02/2025. The heart is enlarged. The pulmonary vasculature is noncongested. Chronic interstitial thickening is similar to previous. There is bibasilar atelectasis. The lungs and pleural spaces are otherwise clear. No pneumothorax is seen. The skeletal structures are osteopenic. The bony thorax is grossly intact. IMPRESSION: Cardiomegaly with no acute cardiopulmonary abnormality identified. ACT 112: Negative or not required by law. Electronically signed by: Zander Humphrey M.D. 05/08/2025 8:[address] 05/08/25 07:46 CT SCAN OF THE BRAIN WITHOUT IV CONTRAST CLINICAL HISTORY: Strokelike symptoms. Paresthesias. Headache. COMPARISON STUDY: CT of the brain dated 02/01/2024. TECHNIQUE: Unenhanced axial CT scan of the brain is performed from the vertex to the skull base. Images are reviewed in the axial, sagittal, and coronal planes. A dose lowering technique was utilized adhering to the principles of ALARA. FINDINGS: Brain parenchyma: A tiny chronic lacunar infarct is noted in the right cerebellar hemisphere. There is no hemorrhage, mass effect, or evidence of acute territorial ischemia by CT criteria. Escobar-white matter differentiation is preserved. No extra-axial fluid collection is seen. Ventricles, sulci, cisterns: Normal in configuration. Intracranial vasculature: There is mild atherosclerotic calcification of the cavernous carotid arteries. Calvarium: Unremarkable. Sinuses and mastoids: The visualized paranasal sinuses are clear. There is trace left mastoid effusion. The right mastoid air cells are well pneumatized. Orbits: The bony orbits are grossly intact. IMPRESSION: There is no hemorrhage, mass effect, or evidence of acute territorial ischemia by CT criteria. ACT 112: Negative or not required by law. Electronically signed by: Zander Humphrey M.D. 05/08/2025 9:21 AM Head CTA 05/08/25 07:46 CT angio head w con CLINICAL HISTORY: 60 years-old Female with stroke eval, parethesia on the R with [facility]. Acute stroke like symptoms with headache COMPARISON STUDY: Head CT same day, 02/01/2024, 12/27/2023 TECHNIQUE: Following the IV administration of 120 cc of Optiray, CT angiogram of the brain was performed from the skull base to the vertex. Images are reviewed in the axial, sagittal, and coronal planes. 3-D MIPS images are created and assessed. IV contrast was administered without complication. All measurements were obtained according to NASCET criteria. A dose lowering technique was utilized adhering to the principles of ALARA. FINDINGS: CT BRAIN: Dictated separately. CT ANGIOGRAM OF THE BRAIN: The imaged bilateral internal carotid arteries are patent. The bilateral anterior and middle cerebral arteries are also patent. The vertebrobasilar system and posterior cerebral arteries are widely patent. There is no aneurysm, high-grade stenosis, or proximal branch occlusion identified. Dural sinuses appear patent. IMPRESSION: Unremarkable CTA of the head. ACT 112: Negative or not required by law. The above report was generated using voice recognition software. It may contain grammatical, syntax or spelling errors. Electronically signed by: Alejandro Owens M.D. 05/08/2025 9:31 AM Neck CTA 05/08/25 07:46 CT ANGIOGRAPHY OF THE NECK WITH CONTRAST CLINICAL HISTORY: stroke eval, paresthesia on the R with [facility] COMPARISON STUDY: CTA of the neck February 01, 2024. Technique: CT angiography of the carotid and vertebral arteries was obtained using Optiray and 3D reconstruction on an independent workstation. NASCET criteria was utilized. Automated exposure control was utilized for the study. A dose lowering technique was utilized adhering to the principles of ALARA. CT DOSE: 987.09 mGy.cm Findings: Visualized portions of the lung apices are unremarkable. There is no cervical lymphadenopathy. There are no cervical spine fractures. The bilateral common carotid, cervical internal carotid and vertebral arteries are patent. No stenosis, dissection or aneurysm within the neck is present. IMPRESSION: Unremarkable CTA of the neck. ACT 112: Negative or not required by law. Electronically signed by: Yang Hansen M.D. 05/08/2025 9:16 AM Discharge Plan Visit Data Chief Complaint: TIA Symptoms Stated Complaint: TIA ED Provider: Rogelio Miller Discharge Problem: Migraine, Stroke-like symptoms Patient Disposition: Admitted As Inpatient Condition: Fair Discharge Instructions Interventions: ED Discharge Assessment Last Done: 05/08/25 15:08
[2025-05-08 08:04] LABS: Hematocrit (blood only) 36.2 % (37.0-47.0); Hemoglobin 12.6 g/dl (12.0-16.0); Immature Granulocytes # (auto) 0.02 K/uL (0.01-0.20); Immature Granulocytes % (auto) 0.3 %; Mean Corpuscular Hemoglobin 31.3 pg (25.0-34.0); Mean Corpuscular Volume 90.0 fL (80.0-100.0); Platelet Count 301 K/uL (130-400); RDW Standard Deviation 45.6 fL (36.4-46.3); Red Blood Count 4.02 M/uL (4.20-5.40); White Blood Count 6.80 K/ul (4.8-10.8)
[2025-05-08 08:36] LABS: Alanine Aminotransferase 14.0 U/L (7-52); Albumin Globulin Ratio 1.4 (0.9-2); Alkaline Phosphatase 105.0 U/L (34-104); Anion Gap 7.0 (3-11); Bilirubin,Total 0.5 mg/dl (0.2-1.0); Blood Urea Nitrogen 14.0 mg/dl (6-23); Calcium 8.9 mg/dl (8.6-10.3); Carbon Dioxide 25.0 mmol/L (21-32); Chloride 108.0 mmol/L (98-107); Creatinine Clr Calc Pharmacy 94.4 ml/min; Globulin 2.6 gm/dl (2.5-4.0); Glucose 113.0 mg/dl (70-99(Fasting)); INR 0.9 (0.9-1.1); Lipase 11.0 U/L (11-82); Partial Thromboplastin Time 25 Seconds (21-31); Potassium 4.1 mmol/L (3.5-5.1); Prothrombin Time 10.3 Seconds (9.0-12.0); Sodium 140.0 mmol/L (136-145); Total Protein 6.3 gm/dl (6.0-8.3)
--- NOTE | 2025-05-08 08:45 | XRay Report ---
SINGLE VIEW CHEST CLINICAL HISTORY: Chest pain FINDINGS: An AP, portable, upright chest radiograph is compared to study dated 02/06/2025 and correlat ed with chest CT dated 02/02/2025. The heart is enlarged. The pulmonary vasculature is noncongested. C hronic interstitial thickening is similar to previous. There is bibasilar atelectasis. The lungs and pleural spaces are otherwise clear. No pneumothorax is seen. The skeletal structures are osteopenic. The bony thorax is grossly intact. IMPRESSION: Cardiomegaly with no acute cardiopulmonary abnormality identified. ACT 112: Negative or not required by law. Electronically signed by: Zander Humphrey M.D. 05/08/2025 8:43 AM
[2025-05-08] MEDS: OPTIRAY 320 125ml IV ONE (09:07)
--- NOTE | 2025-05-08 09:18 | CT Scan Report ---
CT ANGIOGRAPHY OF THE NECK WITH CONTRAST CLINICAL HISTORY: stroke eval, paresthesia on the R with HARRIS COMPARISON STUDY: CTA of the neck February 01, 2024. Technique: CT angiography of the carotid and vertebral arteries was obtained using Optiray and 3D rec onstruction on an independent workstation. NASCET criteria was utilized. Automated exposure control was utilized for the study. A dose lowering technique was utilized adhering to the principles of ALA RA. CT DOSE: 987.09 mGy.cm Findings: Visualized portions of the lung apices are unremarkable. There is no cervical lymphadenopat hy. There are no cervical spine fractures. The bilateral common carotid, cervical internal carotid an d vertebral arteries are patent. No stenosis, dissection or aneurysm within the neck is present. IMPRESSION: Unremarkable CTA of the neck. ACT 112: Negative or not required by law. Electronically signed by: Yang Hansen M.D. 05/08/2025 9:16 AM
--- NOTE | 2025-05-08 09:23 | CT Scan Report ---
CT SCAN OF THE BRAIN WITHOUT IV CONTRAST CLINICAL HISTORY: Strokelike symptoms. Paresthesias. Headache. COMPARISON STUDY: CT of the brain dated 02/01/2024. TECHNIQUE: Unenhanced axial CT scan of the brain is performed from the vertex to the skull base. Imag es are reviewed in the axial, sagittal, and coronal planes. A dose lowering technique was utilized a dhering to the principles of ALARA. FINDINGS: Brain parenchyma: A tiny chronic lacunar infarct is noted in the right cerebellar hemisphere. There i s no hemorrhage, mass effect, or evidence of acute territorial ischemia by CT criteria. Escobar-white ma tter differentiation is preserved. No extra-axial fluid collection is seen. Ventricles, sulci, cisterns: Normal in configuration. Intracranial vasculature: There is mild atherosclerotic calcification of the cavernous carotid arteri es. Calvarium: Unremarkable. Sinuses and mastoids: The visualized paranasal sinuses are clear. There is trace left mastoid effusio n. The right mastoid air cells are well pneumatized. Orbits: The bony orbits are grossly intact. IMPRESSION: There is no hemorrhage, mass effect, or evidence of acute territorial ischemia by CT libby monaco. ACT 112: Negative or not required by law. Electronically signed by: Zander Humphrey M.D. 05/08/2025 9:21 AM
[2025-05-08] MEDS: ONDANSETRON INJ 2 MG/ML 2 ML VIAL IV STA (09:32)
[2025-05-08] MEDS: ACETAMINOPHEN 1,000 MG/100 ML VIAL IV STA (09:32)
--- NOTE | 2025-05-08 09:33 | CT Scan Report ---
CT angio head w con CLINICAL HISTORY: 60 years-old Female with stroke eval, parethesia on the R with HARRIS. Acute stroke like symptoms with headache COMPARISON STUDY: Head CT same day, 02/01/2024, 12/27/2023 TECHNIQUE: Following the IV administration of 120 cc of Optiray, CT angiogram of the brain was performed from the skull base to the vertex. Imag es are reviewed in the axial, sagittal, and coronal planes. 3-D MIPS images are created and assessed. IV contrast was administered without complication. All measurements were obtained according to NASCE T criteria. A dose lowering technique was utilized adhering to the principles of ALARA. FINDINGS: CT BRAIN: Dictated separately. CT ANGIOGRAM OF THE BRAIN: The imaged bilateral internal carotid arteries are patent. The bilateral anterior and middle cerebral arteries are also patent. The vertebrobasilar system and posterior cerebral arteries are widely jose nt. There is no aneurysm, high-grade stenosis, or proximal branch occlusion identified. Dural sinuses appear patent. IMPRESSION: Unremarkable CTA of the head. ACT 112: Negative or not required by law. The above report was generated using voice recognition software. It may contain grammatical, syntax o r spelling errors. Electronically signed by: Alejandro Owens M.D. 05/08/2025 9:31 AM
[2025-05-08] MEDS: DEXAMETHASONE SOD INJ 4 MG/ML VIAL IV STA (09:35)
[2025-05-08 11:38] LABS: Hemoglobin A1C 5.8 % (4.5-5.6)
--- NOTE | 2025-05-08 12:01 | History & Physical Report ---
Date of Service May 08, 2025 Assessment & Plan (1) Stroke-like symptoms: Plan: Patient is a 60 year old female with past medical history of PFO, prior DVT/PE no longer on a/c, heart failure, migraines, hypertension, hyperlipidemia, DM2, left-sided hemiplegia, hypothyroidism, prior gastric bypass, iron deficiency anemia and sleep apnea presenting with TIA symptoms. Patient reported to have a unilateral, right-side headache last night prior to going to bed and awoke with worsening symptoms, including paresthesia to right upper/lower extremities. Blurry vision to the right eye without double vision or report of seeing black curtain; although blurry vision does occur with migraine onset, patient feels this is different than typical pattern. This morning she was short of breath with ambulation to the bathroom, and had substernal chest lasting 5-10 minutes, both symptoms self-resolved with intermittent return at rest. She is no longer short of breath, but does have chest pain intermittently to substernal region and under her right breast. #Stroke-like symptoms, multifactorial with complex medical history #R/O CVA vs. Complex Migraine * Admit for observation to Telemetry for further workup of stroke-like symptoms vs. complex migraine in setting of focal deficits with atrypical chest pain * +Substernal chest pain, non-reproducible, Trop 4.4, with normal EKG * CT Head w/o contrast showing no hemorrhage, mass effect, or evidence of acute territorial ischemia by CT criteria * CTA Head/Neck negative, * will obtain MRI Brain w/o contrast for r/o stroke * Continue home aspirin and statin- already on high dose; will check lipids with AM labs * Neurology consult ordered for additional recs on stroke vs migraine management * Decadron given in ED- will continue inpatient for migraine management * Reglan 10 mg for migraine management added * PT/OT consult when able * Discharge planning: Lives at home with daughter. Independent at home. Will need OP follow-up. #Diabetes Mellitus, Type II, controlled, non-insulin dependent * Home BSGs 100-200, occasionally symptomatic with low BSGs * Managed with weight loss, on Ozempic * A1C 5.8% * SSI while inpatient with Goal 110-140; adjust as needed # PFO with h/o DVT/PE * s/p anti-coagulation x 6 months; only on ASA at home now-> continue aspirin while inpatient * H/O PFO found incidentally 11/2023 when having chest pain with EBV+ infection,Follows [facility]; plan to repair PFO on 06/05/2025 in [place] * Most recent Dobutamine Stress test normal, LVEF 55-60%. No stress-induced wall motion abnormality found.from last admit [facility] 02/03-02/07-> norm Trop and EKG, no indication for repeat study at this time * DVT prophylaxis with SCDs #Sleep Apnea, undiagnosed * 2LPM supplem O2 at home nightly, ordered at d/c last admission * no CPAP * Cntinue home oxygen and maintain sats above 92%. * Will need OP Sleep Study ordered for OP follow-up #Hypothyroidism * continue home levothyroxine #History of Gastric Bypass * mutliple vitamin deficiencies with home supplementation * unable to take NSAIDS DVT Ppx: SCDs Code status: DNR/DNI PCP: Dr. jessica John Dispo: Admit for obs Patient seen in collaboration with Dr. Gonzalez. Please see addendum.I spent a total of 65 minutes coordinating, documenting and providing care for this patient excluding time spent in the performance of separately billed services or time spent by another provider/QHP. (2) Migraine: (3) PFO (patent foramen ovale): (4) History of DVT (deep vein thrombosis): (5) History of pulmonary embolism: (6) Sleep apnea: (7) DM II (diabetes mellitus, type II), controlled: (8) Hypothyroidism: (9) History of gastric bypass: History of Present Illness Primary Care Provider: Jessica oJhn MD Patient is a 60 year old female with past medical history of PFO, prior DVT/PE no longer on a/c, heart failure, migraines, hypertension, hyperlipidemia, DM2, left-sided hemiplegia, hypothyroidism, prior gastric bypass, iron deficiency anemia and sleep apnea presenting with TIA symptoms. Patient reported to have a unilateral, right-side headache last night prior to going to bed and awoke with worsening symptoms, including paresthesia to right upper/lower extremities. Blurry vision to the right eye without double vision or report of seeing black curtain; although blurry vision does occur with migraine onset, patient feels this is different than typical pattern. This morning she was short of breath with ambulation to the bathroom, and had substernal chest lasting 5-10 minutes, both symptoms self-resolved with intermittent return at rest. She is not short of breath now, but does have chest pain intermittently to substernal region and under her right breast. Denies fever, chills, weight loss, weakness, cognitive changes, hearing changes, swelling, difficulty breathing, urinary concerns, V/D, joint swelling/pain, ambulation difficulty, skin rashes, lesions, bleeding, bruising. In the emergency department, patient was hemodynamically stable with no signs of infection, sepsis and stable labs. Trop 4.4. EKG showing NSR with vent rate 76 bpm, QTc 416. Chest Xray showed cardiomegaly with no acute cardiopulmonary abnormality identified. pulmonary vasculature is non-congested. CT Head w/o contrast showing no hemorrhage, mass effect, or evidence of acute territorial ischemia by CT criteria Head/Neck CTA Unremarkable CTA of the head. Acetaminophen, Dexamethasone, Zofran, Prochlorperazine given in ED for headache management. Patient was last admitted to [facility] for atypical chest pain from 02/03/25- 02/07/2025. Dobutamine Stress test normal. LVEF 55-60%. No stress-induced wall motion abnormality. PFO surgery scheduled 06/05/25 . As per external chart review, patient follows [facility] and last seen on 04/02/2025. Per Neurology note, Typical migraine is right-sided and can be associated with right arm and leg weakness and numbness, nausea, vomiting, and photo/phonophobia. She is currently on propranolol and Depakote. Experiencing migraine once weekly which can last up to 2 days. Emgality resulted in near complete resolution of migraines in the past. Medications tried and failed include Topamax, amitriptyline and trigger point injections. Migraine management with Depakote, emgality and triptan as needed. Reportedly, patients headaches have worsened since the passing of her late in January. She now wears oxygen at nighttime with improvement in headaches, although she has no definite diagnosis of DARLING. Endorses excessive daytime sleepiness. History obtained primarily from the patient and via hospitalization record. External chart review obtained from [employer]. Allergies Allergy/AdvReac Type Severity Reaction Status Date / Time ketorolac Allergy Intermediate ITCHY HIVES Verified 02/02/25 23:27 oxycodone Allergy Intermediate ITCHY HIVES Verified 02/02/25 23:27 piperacillin Allergy Intermediate Pruritus Verified 02/02/25 23:27 tazobactam Allergy Intermediate Pruritus Verified 02/02/25 23:27 vancomycin AdvReac Severe deathly ill Verified 02/02/25 23:27 Home Medications Medication Instructions Recorded Confirmed Type aspirin 81 mg tablet,delayed 81 mg PO QAM 02/02/24 05/08/25 History release atorvastatin 40 mg tablet 40 mg PO HS 02/02/24 05/08/25 History cholecalciferol (vitamin D3) 50 50 mcg PO QAM 02/02/24 05/08/25 History mcg (2,000 unit) tablet (Vitamin D3) dicyclomine 10 mg capsule 10 mg PO QAM 02/02/24 05/08/25 History duloxetine 60 mg capsule,delayed 60 mg PO QAM 02/02/24 05/08/25 History release galcanezumab-gnlm 120 mg/mL 120 mg subcut MONTHLY 02/02/24 05/08/25 History subcutaneous pen injector (Emgality Pen) levothyroxine 25 mcg tablet 25 mcg PO DAILYBB 02/02/24 05/08/25 History magnesium oxide 400 mg PO QAM 02/02/24 05/08/25 History pantoprazole 40 mg tablet,delayed 40 mg PO BID 02/02/24 05/08/25 History release propranolol 60 mg capsule,24 60 mg PO QAM 02/02/24 05/08/25 History hr,extended release montelukast 10 mg tablet 10 mg PO QAM 03/31/24 05/08/25 History (Singulair) acetaminophen 325 mg tablet 650 mg PO Q4H PRN PAIN/FEVER>100.5F 02/02/25 05/08/25 History (Tylenol) albuterol sulfate 90 mcg/actuation 2 puff inhalation Q4H PRN Cough 02/02/25 05/08/25 History aerosol inhaler calcium 325 mg-vit D3 12.5 1 tab PO DAILY 02/02/25 05/08/25 History mcg-zinc 2.75 tt-avgida-kclwjntay tablet (Citracal-D3 Maximum Plus) cyanocobalamin (vitamin B-12) 1,000 mcg IM .Q12WKS 02/02/25 05/08/25 History 1,000 mcg/mL injection solution divalproex 250 mg tablet,extended 125 mg PO HS 02/02/25 05/08/25 History release 24 hr (Depakote ER) ferrous sulfate 325 mg (65 mg 325 mg PO DAILY 02/02/25 05/08/25 History iron) tablet folic acid 1 mg tablet 1 mg PO DAILY 02/02/25 05/08/25 History ipratropium 0.5 mg-albuterol 3 mg 3 ml inhalation QID PRN sob 02/02/25 05/08/25 History (2.5 mg base)/3 mL nebulization soln methotrexate sodium 25 mg/mL 20 mg subcut WK 02/02/25 05/08/25 History injection solution multivitamin 1 tab PO DAILY 02/02/25 05/08/25 History semaglutide 1 mg/dose (4 mg/3 mL) 1 mg subcut WK 02/02/25 05/08/25 History subcutaneous pen injector (Ozempic) sumatriptan succinate 50 mg tablet 50 mg PO DIRECTED PRN Migraine 02/02/25 05/08/25 History (Imitrex) Headache trazodone 100 mg tablet 300 mg PO HS 02/03/25 05/08/25 History buspirone 7.5 mg tablet 7.5 mg PO TID #90 tabs 02/07/25 05/08/25 Rx famotidine 20 mg tablet 20 mg PO BID acid reflux 05/08/25 05/08/25 History promethazine 25 mg tablet 25 mg PO DAILY PRN Nausea 05/08/25 05/08/25 History Past Med/Surg History Problem List Stroke-like symptoms (Acute) Migraine (Acute) Nocturnal hypoxia Hypertension Chest pain (Acute) Myalgia (Acute) 02/01/24 Arthralgia (Acute) Ambulatory dysfunction (Acute) Blurred vision (Acute) 02/01/24 Left hemiparesis 12/27/23 Fatigue (Acute) Acute sore throat (Acute) 12/25/23 Abdominal pain (Acute) 12/25/23 Fever (Acute) 12/06/23 Leukocytosis (Acute) Body aches (Acute) 12/06/23 Hypoxia (Acute) duplicate Transaminitis 12/06/23 Hypoxia 12/06/23 Febrile illness 12/06/23 DM II (diabetes mellitus, type II), controlled History of gastric bypass (Acute) Hypothyroidism Migraine Vertigo (Chronic) Psoriatic arthritis (Chronic) MINI (iron deficiency anemia) (Chronic) Sleep apnea (Chronic) Depression (Chronic) GERD (gastroesophageal reflux disease) (Chronic) Medical History PFO (patent foramen ovale) History of pneumonia (12/2023) treated while inpatient Hx of Clostridium difficile infection (2020) Psoriatic arthritis Hx of deep venous thrombosis per hx, pt. denies Hx pulmonary embolism (2015) during time pt. was an inpatient, was started on Coumadin x 6 months, no problems since this time History of anemia Depression with anxiety GERD (gastroesophageal reflux disease) Hx of migraines 1 x per week DM II (diabetes mellitus, type II), controlled oxempic Hypothyroidism History of Harmony-Cox virus infection (12/21/23) treated with abx, inpt at [facility], all symptoms resolved Sleep apnea no cpap, no testing yest History of postoperative nausea and vomiting History of gastric ulcer Surgical History History of esophagogastroduodenoscopy (EGD) Hx of colonoscopy Hx of cardiac catheterization (2019) [facility], no mi, no stents, follows with cassie (03/2024) Hx of gastric bypass (2009) History of carpal tunnel release of both wrists (1990) S/P total hysterectomy Hx of tonsillectomy S/P cholecystectomy History of bilateral knee replacement S/P appendectomy Family History Mother Rheumatoid arthritis Father Cancer blood cancer Denies family history of Hypertension Social History Smoking Status: Never smoker Second Hand Exposure: No; Do You Dip or Chew Tobacco: No; Hx Alcohol Use: No Hx Substance Use: No Preferred Language: Kosovan Communication Ability: Effective 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 Beliefs That Will Affect Care: None marital status: Current Living Situation: Family Current Living Situation Comment: Lives at daughter's house Other Information That Helps Us Care for You: No Feels Safe at Home: No Is there a partner from a previous relationship who is making you feel unsafe now?: No Any Concerns about Your Family Situation: No Would You Like to Speak to Someone About Your Situation: No Safety Concerns: Feels Safe At This Time Assistive Devices: Glasses and Walker Review of Systems Review of Systems: All systems reviewed & are unremarkable except as noted in HPI & below Physical Exam Physical Exam: VITALS: Reviewed. WEIGHT/BMI reviewed. GEN: Healthy appearing, well-developed, NAD. PSYCH: Good Judgment. AOx3. Normal memory, mood, and affect. HEENT -Head: NC/AT; -Eyes: PERRL, EOMI. No discharge or redn ess; -Ears: External ears are normal. Normal TMs. -Nose: Normal nares. -Mouth and throat: MMM. Normal gums, muc darling, palate,. Good dentition. NECK: Supple, with no masses. CV: RRR, no m/r/g. LUNGS: CTAB, no w/r/c. ABD: Soft, NT/ND, NBS, no masses or organomegaly. : N/A SKIN: Warm, well perfused. No skin rashes or abnormal lesions. MSK: No deformities, Normal gait. EXT: No clubbing, cyanosis, or edema. NEURO: Ambulating with no limitations. Normal muscle strength and tone. No focal deficits. Results & Data Results & Data Vital Signs (Past 12 Hours) Vital Signs Temp Pulse Pulse Resp BP BP Pulse Ox 05/08/25 09:24 73 18 140/88 93 05/08/25 08:17 69 05/08/25 07:58 93 05/08/25 07:57 86 19 164/105 H 93 05/08/25 07:44 36.7 C 75 19 165/107 H 94 O2 Del Method 05/08/25 09:24 Room Air 05/08/25 08:17 05/08/25 07:58 Room Air 05/08/25 07:57 Room Air 05/08/25 07:44 Room Air Laboratory Results Short CBC 05/08/25 Range/Units 07:51 WBC 6.80 (4.8-10.8) K/ul Hgb 12.6 (12.0-16.0) g/dl Hct 36.2 L (37.0-47.0) % Plt Count 301 (130-400) K/uL BMP 05/08/25 07:51 Sodium 140 Potassium 4.1 Chloride 108 H Carbon Dioxide 25 BUN 14 Creatinine 0.72 Glucose 113 H Calcium 8.9 Liver Function 05/08/25 Range/Units 07:51 Total Bilirubin 0.5 (0.2-1.0) mg/dl AST 19 (13-39) U/L ALT 14 (7-52) U/L Alkaline Phosphatase 105 H (34-104) U/L Albumin 3.7 (3.4-5.0) gm/dl Diagnostic Findings Chest X-Ray 05/08/25 07:46 SINGLE VIEW CHEST CLINICAL HISTORY: Chest pain FINDINGS: An AP, portable, upright chest radiograph is compared to study dated 02/06/2025 and correlated with chest CT dated 02/02/2025. The heart is enlarged. The pulmonary vasculature is noncongested. Chronic interstitial thickening is similar to previous. There is bibasilar atelectasis. The lungs and pleural spaces are otherwise clear. No pneumothorax is seen. The skeletal structures are osteopenic. The bony thorax is grossly intact. IMPRESSION: Cardiomegaly with no acute cardiopulmonary abnormality identified. ACT 112: Negative or not required by law. Electronically signed by: Zander Humphrey M.D. 05/08/2025 8:[address] 05/08/25 07:46 CT SCAN OF THE BRAIN WITHOUT IV CONTRAST CLINICAL HISTORY: Strokelike symptoms. Paresthesias. Headache. COMPARISON STUDY: CT of the brain dated 02/01/2024. TECHNIQUE: Unenhanced axial CT scan of the brain is performed from the vertex to the skull base. Images are reviewed in the axial, sagittal, and coronal planes. A dose lowering technique was utilized adhering to the principles of ALARA. FINDINGS: Brain parenchyma: A tiny chronic lacunar infarct is noted in the right cerebellar hemisphere. There is no hemorrhage, mass effect, or evidence of acute territorial ischemia by CT criteria. Escobar-white matter differentiation is preserved. No extra-axial fluid collection is seen. Ventricles, sulci, cisterns: Normal in configuration. Intracranial vasculature: There is mild atherosclerotic calcification of the cavernous carotid arteries. Calvarium: Unremarkable. Sinuses and mastoids: The visualized paranasal sinuses are clear. There is trace left mastoid effusion. The right mastoid air cells are well pneumatized. Orbits: The bony orbits are grossly intact. IMPRESSION: There is no hemorrhage, mass effect, or evidence of acute territorial ischemia by CT criteria. ACT 112: Negative or not required by law. Electronically signed by: Zander Humphrey M.D. 05/08/2025 9:21 AM Head CTA 05/08/25 07:46 CT angio head w con CLINICAL HISTORY: 60 years-old Female with stroke eval, parethesia on the R with HARRIS. Acute stroke like symptoms with headache COMPARISON STUDY: Head CT same day, 02/01/2024, 12/27/2023 TECHNIQUE: Following the IV administration of 120 cc of Optiray, CT angiogram of the brain was performed from the skull base to the vertex. Images are reviewed in the axial, sagittal, and coronal planes. 3-D MIPS images are created and assessed. IV contrast was administered without complication. All measurements were obtained according to NASCET criteria. A dose lowering technique was utilized adhering to the principles of ALARA. FINDINGS: CT BRAIN: Dictated separately. CT ANGIOGRAM OF THE BRAIN: The imaged bilateral internal carotid arteries are patent. The bilateral anterior and middle cerebral arteries are also patent. The vertebrobasilar system and posterior cerebral arteries are widely patent. There is no aneurysm, high-grade stenosis, or proximal branch occlusion identified. Dural sinuses appear patent. IMPRESSION: Unremarkable CTA of the head. ACT 112: Negative or not required by law. The above report was generated using voice recognition software. It may contain grammatical, syntax or spelling errors. Electronically signed by: Alejandro Owens M.D. 05/08/2025 9:31 AM Neck CTA 05/08/25 07:46 CT ANGIOGRAPHY OF THE NECK WITH CONTRAST CLINICAL HISTORY: stroke eval, paresthesia on the R with HARRIS COMPARISON STUDY: CTA of the neck February 01, 2024. Technique: CT angiography of the carotid and vertebral arteries was obtained using Optiray and 3D reconstruction on an independent workstation. NASCET criteria was utilized. Automated exposure control was utilized for the study. A dose lowering technique was utilized adhering to the principles of ALARA. CT DOSE: 987.09 mGy.cm Findings: Visualized portions of the lung apices are unremarkable. There is no cervical lymphadenopathy. There are no cervical spine fractures. The bilateral common carotid, cervical internal carotid and vertebral arteries are patent. No stenosis, dissection or aneurysm within the neck is present. IMPRESSION: Unremarkable CTA of the neck. ACT 112: Negative or not required by law. Electronically signed by: Yang Hansen M.D. 05/08/2025 9:16 AM Supervising Physician Co-Signing Physician Notes Patient seen and examined at bedside. Discussed with above provider Patient presented to the hospital with symptom consistent with complex migraine. Imaging done to rule out stroke. Given Reglan and Decadron with improvement of the symptoms. Neurology consulted. Continue to monitor for signs of migraine; sumatriptan ordered as needed. I have reviewed the advanced practitioner's documentation, and I agree with, and take responsibility for the plan of care I spent a total of 20 minutes coordinating, documenting, and providing care for this patient excluding time spent in the performance of separately billed services. All of the aforementioned completed while collaborating with the assigned advanced practitioner for a full treatment plan
[2025-05-08] MEDS: DICYCLOMINE HCL 10 MG CAP PO STA (12:16)
[2025-05-08] MEDS: ASPIRIN 81 MG ECTAB PO STA (12:16)
[2025-05-08] MEDS: METOCLOPRAMIDE HCL INJ 5 MG/ML 2 ML VIAL IV STA (12:16)
[2025-05-08] MEDS: MAGNESIUM OXIDE 400 MG TAB PO STA (12:16)
[2025-05-08] MEDS: PROPRANOLOL HCL 60 MG LA CAP PO STA (12:30)
[2025-05-08] MEDS: CHOLECALCIFEROL 25 MCG (1000 UNITS) TAB PO STA (12:30)
[2025-05-08] MEDS: LEVOTHYROXINE SODIUM 25 MCG TABLET PO STA (12:30)
--- NOTE | 2025-05-08 12:40 | Magnetic Resonance Report ---
MRI OF THE BRAIN WITHOUT IV CONTRAST CLINICAL HISTORY: Worsening headaches. Paresthesias. Visual disturbance. COMPARISON STUDY: MRI of the brain February 02, 2024. Head CT and CTA of the head performed earlier today. TECHNIQUE: MRI of the brain was performed utilizing various T1 and T2-weighted sequences in the axial , sagittal, and coronal planes. IV contrast was not administered for this examination. Due to claustr ophobia, the study could not be completed. Diffusion-weighted and sagittal T1 sequences were obtained . FINDINGS: No foci of restricted diffusion to suggest acute infarct are present. The ventricular syste m is normal. The basal cisterns are patent. No extra-axial collections are identified on this exam. 7 mm focus of signal abnormality within the right cerebellar hemisphere on axial image 8 of is unch anged from earlier exams. No additional foci of parenchymal signal abnormality are identified althoug h this exam is moderately compromised given this incomplete protocol. No acute intracranial hemorrhag e is identified. IMPRESSION: No evidence for acute infarct. Exam moderately compromised given incomplete protocol, as described above. However, no significant change since previous MRI on these two pulsing sequences. ACT 112: Negative or not required by law. Electronically signed by: Yang Hansen M.D. 05/08/2025 12:39 PM
[2025-05-08] MEDS ORDERED: ACETAMINOPHEN 325 MG TAB PO PRN (15:12)
[2025-05-08] MEDS ORDERED: GLUCOSE 10 TAB/TUBE PO PRN (15:12)
[2025-05-08] MEDS ORDERED: MAGNESIUM HYDROXIDE SUSP 30 ML UDC PO PRN (15:12)
[2025-05-08] MEDS ORDERED: GLUCOSE 40% GEL 15 GM TUBE PO PRN (15:12)
[2025-05-08] MEDS ORDERED: ALUMINUM/MAGNESIUM SUSP 30 ML UDC PO PRN (15:12)
[2025-05-08] MEDS ORDERED: GLUCAGON FOR INJ 1 MG VIAL SQ PRN (15:12)
[2025-05-08] MEDS ORDERED: CARBOHYDRATES FOR HYPOGLYCEMIA PO PRN (15:12)
[2025-05-08] MEDS ORDERED: DEXTROSE 50% 50 ML SYRINGE IV PRN (15:12)
[2025-05-08] MEDS: INSULIN ASPART PER UNIT CHARGE SC SCH (17:29)
--- NOTE | 2025-05-08 17:32 | Neurology Consultation ---
Date of Consultation May 08, 2025 Assessment & Plan (1) Migraine: MRI is negative for acute ischemic changes. Suspect that her symptoms are related to migraine. Recommend giving Depakote 500 mg IV. Continue with Benadryl and Reglan in addition to magnesium. Can give Emgality tomorrow. Plan Recommend giving Depakote 500 mg IV. Continue with Benadryl and Reglan in addition to magnesium. Can give Emgality tomorrow. Starting tomorrow we can do a tapering dose of prednisone. Can increase Depakote to 500 mg twice daily. Sleep and rest IV hydration. Rule out underlying infections. Telehealth Consultation Telehealth Information Telehealth Information: I performed this visit using a real-time telehealth connection between my location and the patients location ([facility]). After connecting through interactive tele-video, patient was identified by name and date of and/or wristband check.Patient (or authorized healthcare repres entative) was informed that this was a telemedicine visit and it was being conducted confidentially over secure lines. My office door was closed and no one else was present in the room with me.Patient (or authorized healthcare school admissions representative) provided consent to proceed with the visit, expressed an understanding of privacy and security of the telemedicine visit, and gave permission to have a hospital school admissions representative in the room in order to assist with the visit and to conduct portions of the visit, as needed. I informed the patient (or authorized healthcare school admissions representative) that I reviewed their record and presented the opportunity for them to ask any questions regarding the visit today. The patient agreed to participate. History of Present Illness Reason for Consultation: Migraine headaches Requesting Physician: Jh Gonzalez MD Attending Physician: Jh Gonzalez MD History of Present Illness 60-year-old female patient with PMH of left hemiparesis type II DM, hypothyroidism, sleep apnea and depression history ,she also has been started on Emgality last taken on April 08, 2024. Of obesity status post gastric bypass currently managed with Ozempic. The patient reported that migraine started yesterday 9 PM affecting the right side of her head, this morning she woke up with blurry vision to the right side and right-sided numbness and tingling. She reports that it is different from her usual migraine so she came to the emergency room. She reports numbness and tingling affecting the right upper and lower extremities. She had no focal weakness, no ambulatory dysfunction. She reports that her headache is about 11/10 in intensity right now. Of note that the patient did receive Decadron and did receive Reglan Benadryl and magnesium in the emergency room. Discussed with the patient that MRI of the brain and CTA showed no acute ischemic changes. Allergies Allergy/AdvReac Type Severity Reaction Status Date / Time ketorolac Allergy Intermediate ITCHY HIVES Verified 02/02/25 23:27 oxycodone Allergy Intermediate ITCHY HIVES Verified 02/02/25 23:27 piperacillin Allergy Intermediate Pruritus Verified 02/02/25 23:27 tazobactam Allergy Intermediate Pruritus Verified 02/02/25 23:27 vancomycin AdvReac Severe deathly ill Verified 02/02/25 23:27 Home Medications Medication Instructions Recorded Confirmed Type aspirin 81 mg tablet,delayed 81 mg PO QAM 02/02/24 05/08/25 History release atorvastatin 40 mg tablet 40 mg PO HS 02/02/24 05/08/25 History cholecalciferol (vitamin D3) 50 50 mcg PO QAM 02/02/24 05/08/25 History mcg (2,000 unit) tablet (Vitamin D3) dicyclomine 10 mg capsule 10 mg PO QAM 02/02/24 05/08/25 History duloxetine 60 mg capsule,delayed 60 mg PO QAM 02/02/24 05/08/25 History release galcanezumab-gnlm 120 mg/mL 120 mg subcut MONTHLY 02/02/24 05/08/25 History subcutaneous pen injector (Emgality Pen) levothyroxine 25 mcg tablet 25 mcg PO DAILYBB 02/02/24 05/08/25 History magnesium oxide 400 mg PO QAM 02/02/24 05/08/25 History pantoprazole 40 mg tablet,delayed 40 mg PO BID 02/02/24 05/08/25 History release propranolol 60 mg capsule,24 60 mg PO QAM 02/02/24 05/08/25 History hr,extended release montelukast 10 mg tablet 10 mg PO QAM 03/31/24 05/08/25 History (Singulair) acetaminophen 325 mg tablet 650 mg PO Q4H PRN PAIN/FEVER>100.5F 02/02/25 05/08/25 History (Tylenol) albuterol sulfate 90 mcg/actuation 2 puff inhalation Q4H PRN Cough 02/02/25 05/08/25 History aerosol inhaler calcium 325 mg-vit D3 12.5 1 tab PO DAILY 02/02/25 05/08/25 History mcg-zinc 2.75 [id number]-[id number] tablet (Citracal-D3 Maximum Plus) cyanocobalamin (vitamin B-12) 1,000 mcg IM .Q12WKS 02/02/25 05/08/25 History 1,000 mcg/mL injection solution divalproex 250 mg tablet,extended 125 mg PO HS 02/02/25 05/08/25 History release 24 hr (Depakote ER) ferrous sulfate 325 mg (65 mg 325 mg PO DAILY 02/02/25 05/08/25 History iron) tablet folic acid 1 mg tablet 1 mg PO DAILY 02/02/25 05/08/25 History ipratropium 0.5 mg-albuterol 3 mg 3 ml inhalation QID PRN sob 02/02/25 05/08/25 History (2.5 mg base)/3 mL nebulization soln methotrexate sodium 25 mg/mL 20 mg subcut WK 02/02/25 05/08/25 History injection solution multivitamin 1 tab PO DAILY 02/02/25 05/08/25 History semaglutide 1 mg/dose (4 mg/3 mL) 1 mg subcut WK 02/02/25 05/08/25 History subcutaneous pen injector (Ozempic) sumatriptan succinate 50 mg tablet 50 mg PO DIRECTED PRN Migraine 02/02/25 05/08/25 History (Imitrex) Headache trazodone 100 mg tablet 300 mg PO HS 02/03/25 05/08/25 History buspirone 7.5 mg tablet 7.5 mg PO TID #90 tabs 02/07/25 05/08/25 Rx famotidine 20 mg tablet 20 mg PO BID acid reflux 05/08/25 05/08/25 History promethazine 25 mg tablet 25 mg PO DAILY PRN Nausea 05/08/25 05/08/25 History Patient History Medical History PFO (patent foramen ovale) History of pneumonia (12/2023) treated while inpatient Hx of Clostridium difficile infection (2020) Psoriatic arthritis Hx of deep venous thrombosis per hx, pt. denies Hx pulmonary embolism (2015) during time pt. was an inpatient, was started on Coumadin x 6 months, no problems since this time History of anemia Depression with anxiety GERD (gastroesophageal reflux disease) Hx of migraines 1 x per week DM II (diabetes mellitus, type II), controlled oxempic Hypothyroidism History of Harmony-Cox virus infection (12/21/23) treated with abx, inpt at [facility], all symptoms resolved Sleep apnea no cpap, no testing yest History of postoperative nausea and vomiting History of gastric ulcer Surgical History History of esophagogastroduodenoscopy (EGD) Hx of colonoscopy Hx of cardiac catheterization (2019) [facility], no mi, no stents, follows with cassie (03/2024) Hx of gastric bypass (2009) History of carpal tunnel release of both wrists (1990) S/P total hysterectomy Hx of tonsillectomy S/P cholecystectomy History of bilateral knee replacement S/P appendectomy Family History Mother Rheumatoid arthritis Father Cancer blood cancer Denies family history of Hypertension Social History Smoking Status: Never smoker Second Hand Exposure: No; Do You Dip or Chew Tobacco: No; Hx Alcohol Use: No Hx Substance Use: No Preferred Language: Icelandic Communication Ability: Effective Dry Room Attendant Required: No Beliefs That Will Affect Care: None marital status: Current Living Situation: Family Current Living Situation Comment: Lives at daughter's house Other Information That Helps Us Care for You: No Feels Safe at Home: No Is there a partner from a previous relationship who is making you feel unsafe now?: No Any Concerns about Your Family Situation: No Would You Like to Speak to Someone About Your Situation: No Safety Concerns: Feels Safe At This Time Assistive Devices: Glasses and Walker Review of Systems Negative except for the points mentioned in HPI Physical Exam General Constitutional: Appearance normally developed Head and face: normocephalic and atraumatic Eyes: no ptosis, no anisocoria, and no dysconjugate gaze Respiratory: normal effort Cardiovascular: regular rhythm and regular rate Abdomen: non distended Skin: no rashes, lesions, or ulcers noted Psychiatric: normal judgement and insight, normal mood, and normal affect NEUROLOGIC EXAMINATION: Mental Status:alert, oriented to time, place, person, normal recent memory, normal remote memory, normal attention span, normal concentration, normal language and normal fund of knowledge Cranial Nerves: CN 2 - no visual defect on confrontation and pupils round, equal, reactive to light CN 3, 4, 6 - extra-ocular movements intact and no nystagmus CN 5 - facial sensation intact CN 7 - no facial asymmetry CN 8 - intact hearing CN 9, 10 - palate symmetric, normal gag CN 11 - good shoulder shrug CN 12 - tongue midline MOTOR: Strength was at least antigravity throughout, Pronator drift was absent and There were no abnormal movements SENSATION: intact and symmetric to pinprick, light touch, vibration and joint position GAIT: stable, no ataxia and can perform tandem walking COORDINATION: no ataxia with finger to nose testing and heel to frausto testing REFLEXES: cannot assess over telemedicine Results & Data Vital Signs (Past 12 Hours) Vital Signs Temp Pulse Pulse Resp BP BP Pulse Ox 05/08/25 15:33 36.5 C 64 21 143/89 H 92 05/08/25 14:11 66 17 133/95 94 05/08/25 12:34 83 05/08/25 11:17 63 20 124/79 93 05/08/25 09:24 73 18 140/88 93 05/08/25 08:17 69 05/08/25 07:58 93 05/08/25 07:57 86 19 164/105 H 93 05/08/25 07:44 36.7 C 75 19 165/107 H 94 O2 Del Method 05/08/25 15:33 Room Air 05/08/25 14:11 Room Air 05/08/25 12:34 05/08/25 11:17 Room Air 05/08/25 09:24 Room Air 05/08/25 08:17 05/08/25 07:58 Room Air 05/08/25 07:57 Room Air 05/08/25 07:44 Room Air Laboratory Results Laboratory Results - last 24 hr 05/08/25 05/08/25 07:51 16:56 WBC 6.80 RBC 4.02 L Hgb 12.6 Hct 36.2 L MCV 90.0 MCH 31.3 MCHC 34.8 RDW Std Deviation 45.6 RDW Coeff of Halley 13.7 Plt Count 301 MPV 9.4 Immature Gran % (Auto) 0.3 Neut % (Auto) 44.5 Lymph % (Auto) 42.2 [place] % (Auto) 9.0 Eos % (Auto) 3.1 Baso % (Auto) 0.9 Neut # (Auto) 3.03 Lymph # (Auto) 2.87 [place] # (Auto) 0.61 H Eos # (Auto) 0.21 Baso # (Auto) 0.06 Immature Gran # (Auto) 0.02 PT 10.3 INR 0.9 APTT 25 PTT Ratio 0.9 Sodium 140 Potassium 4.1 Chloride 108 H Carbon Dioxide 25 Anion Gap 7 BUN 14 Creatinine 0.72 Est Cr Clr Drug Dosing 94.4 eGFR 94.48 BUN/Creatinine Ratio 19.4 Glucose 113 H POC Glucose 224 H Estimat Average Glucose 120 Hemoglobin A1c 5.8 H Calcium 8.9 Total Bilirubin 0.5 AST 19 ALT 14 Alkaline Phosphatase 105 H Troponin I High Sens 4.4 Total Protein 6.3 Albumin 3.7 Globulin 2.6 Albumin/Globulin Ratio 1.4 Lipase 11 Diagnostic Findings MRI of the brain showed no acute ischemic infarcts CTA head and neck with no significant atherosclerotic disease stenosis or large vessel occlusion EKG shows normal sinus rhythm echocardiogram done on 02/03/2025 shows LVEF of 55-60%, grade 1 diastolic dysfunction, aortic valve sclerosis there is mild without stenosis Medications Administered Home Medications Medication Instructions Recorded Confirmed Last Taken aspirin 81 mg tablet,delayed 81 mg PO QAM 02/02/24 05/08/25 02/02/25 release atorvastatin 40 mg tablet 40 mg PO HS 02/02/24 05/08/25 02/01/25 cholecalciferol (vitamin D3) 50 50 mcg PO QAM 02/02/24 05/08/25 02/02/25 mcg (2,000 unit) tablet (Vitamin D3) dicyclomine 10 mg capsule 10 mg PO QAM 02/02/24 05/08/25 02/02/25 duloxetine 60 mg capsule,delayed 60 mg PO QAM 02/02/24 05/08/25 02/02/25 release galcanezumab-gnlm 120 mg/mL 120 mg subcut MONTHLY 02/02/24 05/08/25 Unknown subcutaneous pen injector (Emgality Pen) levothyroxine 25 mcg tablet 25 mcg PO DAILYBB 02/02/24 05/08/25 02/02/25 magnesium oxide 400 mg PO QAM 02/02/24 05/08/25 02/02/25 pantoprazole 40 mg tablet,delayed 40 mg PO BID 02/02/24 05/08/25 02/02/25 08:00 release propranolol 60 mg capsule,24 60 mg PO QAM 02/02/24 05/08/25 02/02/25 hr,extended release montelukast 10 mg tablet 10 mg PO QAM 03/31/24 05/08/25 02/02/25 (Singulair) acetaminophen 325 mg tablet 650 mg PO Q4H PRN PAIN/FEVER>100.5F 02/02/25 05/08/25 Unknown (Tylenol) albuterol sulfate 90 mcg/actuation 2 puff inhalation Q4H PRN Cough 02/02/25 05/08/25 Unknown aerosol inhaler calcium 325 mg-vit D3 12.5 1 tab PO DAILY 02/02/25 05/08/25 02/02/25 mcg-zinc 2.75 [id number]-wlhyqacaz tablet (Citracal-D3 Maximum Plus) cyanocobalamin (vitamin B-12) 1,000 mcg IM .Q12WKS 02/02/25 05/08/25 Unknown 1,000 mcg/mL injection solution divalproex 250 mg tablet,extended 125 mg PO HS 02/02/25 05/08/25 02/01/25 release 24 hr (Depakote ER) ferrous sulfate 325 mg (65 mg 325 mg PO DAILY 02/02/25 05/08/25 02/02/25 iron) tablet folic acid 1 mg tablet 1 mg PO DAILY 02/02/25 05/08/25 02/02/25 ipratropium 0.5 mg-albuterol 3 mg 3 ml inhalation QID PRN sob 02/02/25 05/08/25 Unknown (2.5 mg base)/3 mL nebulization soln methotrexate sodium 25 mg/mL 20 mg subcut WK 02/02/25 05/08/25 01/26/25 injection solution multivitamin 1 tab PO DAILY 02/02/25 05/08/25 02/02/25 semaglutide 1 mg/dose (4 mg/3 mL) 1 mg subcut WK 02/02/25 05/08/25 05/07/25 subcutaneous pen injector (Ozempic) sumatriptan succinate 50 mg tablet 50 mg PO DIRECTED PRN Migraine 02/02/25 05/08/25 Unknown (Imitrex) Headache trazodone 100 mg tablet 300 mg PO HS 02/03/25 05/08/25 Unknown buspirone 7.5 mg tablet 7.5 mg PO TID #90 tabs 02/07/25 05/08/25 Unknown famotidine 20 mg tablet 20 mg PO BID acid reflux 05/08/25 05/08/25 Unknown promethazine 25 mg tablet 25 mg PO DAILY PRN Nausea 05/08/25 05/08/25 Unknown
[2025-05-08] MEDS: VALPROATE SOD 500 MG in DEXTROSE 5% 50 ML IV ONE (20:26)
[2025-05-08] MEDS: ATORVASTATIN 40 MG TAB PO SCH (20:30)
[2025-05-08] MEDS ORDERED: ONDANSETRON INJ 2 MG/ML 2 ML VIAL IV PRN (20:48)
[2025-05-08] MEDS: PROMETHAZINE 12.5 MG/50.5 ML BAG IV PRN (21:24)
[2025-05-09] MEDS: LEVOTHYROXINE SODIUM 25 MCG TABLET PO SCH (05:52)
--- NOTE | 2025-05-09 06:16 | Electrocardiogram Report ---
Test Reason : Blood Pressure : */* mmHG Vent. Rate : 76 BPM Atrial Rate : 76 BPM P-R Int : 166 ms QRS Dur : 82 ms QT Int : 370 ms P-R-T Axes : -17 -9 -27 degrees QTcB Int : 416 ms Normal sinus rhythm Minimal voltage criteria for LVH, may be normal variant ( R in aVL ) Inferior infarct (cited on or before 08-Jul-2004) Anterior infarct (cited on or before 08-Jul-2004) Abnormal ECG When compared with ECG of 05-Feb-2025 05:46, T wave inversion now evident in Inferior leads Confirmed by Tyrone Avelar ([id number]) on 05/09/2025 6:16:13 AM Referred By: Confirmed By: Tyrone Avelar
[2025-05-09 06:35] LABS: Hematocrit (blood only) 35.8 % (37.0-47.0); Hemoglobin 11.9 g/dl (12.0-16.0); Mean Corpuscular Hemoglobin 29.7 pg (25.0-34.0); Mean Corpuscular Volume 89.3 fL (80.0-100.0); Platelet Count 266 K/uL (130-400); RDW Standard Deviation 44.1 fL (36.4-46.3); Red Blood Count 4.01 M/uL (4.20-5.40); White Blood Count 10.52 K/ul (4.8-10.8)
[2025-05-09 07:00] LABS: Anion Gap 7.0 (3-11); Blood Urea Nitrogen 17.0 mg/dl (6-23); Calcium 9.1 mg/dl (8.6-10.3); Carbon Dioxide 23.0 mmol/L (21-32); Chloride 107.0 mmol/L (98-107); Cholesterol 158.0 mg/dl (0-200); Creatinine Clr Calc Pharmacy 96.4 ml/min; Glucose 138.0 mg/dl (70-99(Fasting)); HDL Cholesterol 47.0 mg/dl; Potassium 4.6 mmol/L (3.5-5.1); Sodium 137.0 mmol/L (136-145); Triglycerides 76.0 mg/dl (0-150)
[2025-05-09] MEDS: METOCLOPRAMIDE HCL INJ 5 MG/ML 2 ML VIAL IV STA (09:41)
[2025-05-09] MEDS: KETOROLAC TROMETHAMINE 15 MG/ML VIAL IV ONE (09:41)
[2025-05-09] MEDS: FOLIC ACID 1 MG TAB PO SCH (09:41)
[2025-05-09] MEDS: CHOLECALCIFEROL 25 MCG (1000 UNITS) TAB PO SCH (09:42)
[2025-05-09] MEDS: PROPRANOLOL HCL 60 MG LA CAP PO SCH (09:42)
[2025-05-09] MEDS: MAGNESIUM OXIDE 400 MG TAB PO SCH (09:42)
[2025-05-09] MEDS: ASPIRIN 81 MG ECTAB PO SCH (09:42)
[2025-05-09] MEDS: predniSONE 20 MG TAB PO SCH (09:48)
[2025-05-09] MEDS: DIVALPROEX EXTENDED RELEASE 500 MG TAB PO SCH (09:49)
[2025-05-09] MEDS: DICYCLOMINE HCL 10 MG CAP PO SCH (10:03)
--- NOTE | 2025-05-09 12:50 | Hospitalist Progress Note ---
Date of Service May 09, 2025 Assessment & Plan (1) Migraine: (2) DM II (diabetes mellitus, type II), controlled: (3) (HFpEF) heart failure with preserved ejection fraction: (4) Dyslipidemia: (5) Nocturnal hypoxia: (6) GERD (gastroesophageal reflux disease): (7) Depression: (8) Hypothyroidism: (9) PFO (patent foramen ovale): (10) History of pulmonary embolism: (11) History of gastric bypass: Plan 60 year old female with PMH significant for type 2 diabetes, hypothyroidism, hyperlipidemia, asthma, heart failure, GERD, psoriatic arthropathy, left hemiplegia, iron deficiency anemia, depression and anxiety, history of gastric bypass (2008), history of PE, history of C diff, and chronic migraines who presented to the ED on 05/08/2025 with unilateral headache and associated paresthesia and blurry vision that she felt is different than typical migraine and was admitted for rule out stroke. Worsening of Chronic migraine Typical migraine is right sided and associated with blurry vision, photophobia, right arm/leg weakness/numbness, N/V Follows with Pam Everett PA-C of [facility] last seen in March 2025 --Prior medications include amitriptyline, topamax, Ajovy, trigger point injections --Started on Emgality in September 2024 which improved migraines significantly --Started depakote taper in March where she went from 750mg HS to 125mg HS --Planned to stop magnesium and propranolol after completion of depakote taper --Continued use of tylenol and sumatriptan PRN Patient reports this is the worst migraine she has ever experienced, possibly due to tapering of depakote outpatient Stroke work up completed with negative CT head, CTA head and neck, MRI brain Neurology consulted and recommend: --Depakote 500mg IV x1 --Continue benadryl and reglan in addition to magnesium --Can give Emgality --> non-formulary and patient does not get med delivered until 05/13 --Start tapering dose of prednisone --Increase depakote to 500mg bid --Sleep, rest, IV hydration --Add gabapentin 300mg bid --Add tramadol PRN Type 2 diabetes On Ozempic at home A1C 5.8% BSG ACHS and SSI while inpatient HFpEF Echo in January 2025 revealed EF 55-60%, grade 1 diastolic dysfunction, mild aortic valve sclerosis Patient appears euvolemic Monitor I&Os Dyslipidemia Continue statin GERD Continue pantoprazole, pepcid, and carafate Depression Continue duloxetine, buspirone, and trazodone Hypothyroidism Continue levothyroxine Nocturnal hypoxia Per nocturnal oximetry in January 2025 Wears 2-3L O2 at night PFO Incidentally found during hospitalization in November 2023 Scheduled repair on 06/05/2025 at [facility] [place] History of PE s/p anti-coagulation x6 months Continue aspirin History of gastric bypass [facility] Continue vitamin supplementation DVT Prophylaxis: SCDs Code Status: DNR/DNI PCP: Krystyna John Disposition: possible dc tomorrow pending improvement of migraine Patient seen in collaboration with Dr. Porter. Please see addendum. I spent a total of 50 minutes coordinating, documenting and providing care for this patient excluding time spent in the performance of separately billed services or time spent by another provider/QHP. Admission and Anticipated Discharge Date Admission Date: May 09, 2025 Supervising Physician Co-Signing Physician Notes Patient seen and examine Agree with findings and plans as detailed by Evelia GONZALEZ Subjective Patient seen laying in bed Reports severe headache with associated right eye blurry vision, right arm and leg numbness and tingling, nausea, photo/phonophobia Notes she had a small amount of improvement overnight and then headache returned at same intensity Reports this is the worst migraine she has ever had Denies chest pain, SOB, abdominal pain, vomiting, dysuria Review of Systems Review of Systems: All systems reviewed & are unremarkable except as noted in Subjective Physical Exam Physical Exam: General/Psych: WD/WN, laying in bed, NAD, conversing easily Head: normocephalic, atraumatic Eyes: normal inspection, PERRL, conjunctivae pink ENT: external ear and nose normal, oropharynx normal Neck: normal visual inspection, trachea midline Respiratory: normal respiratory effort, lungs clear to auscultation, no wheeze/rales/rhonchi, no accessory muscle use Cardiovascular: regular rate and rhythm, no murmur/rub/gallop, no JVD Extremities: no cyanosis or clubbing, normal peripheral pulses, no BLE edema Abdomen/GI: normal bowel sounds, soft, nontender Neurologic/MSK: A+Ox3, moves all extremities Skin: no rashes, normal color, warm and dry Results & Data Results & Data Vital Signs (Past 12 Hours) Vital Signs Temp Pulse Pulse Resp BP Pulse Ox O2 Del Method 05/09/25 11:58 36.5 C 64 18 111/70 94 Room Air 05/09/25 08:08 36.6 C 72 18 109/71 91 Room Air 05/09/25 07:43 67 05/09/25 03:16 36.8 C 70 16 107/68 94 Room Air Laboratory Results Short CBC 05/09/25 Range/Units 06:12 WBC 10.52 (4.8-10.8) K/ul Hgb 11.9 L (12.0-16.0) g/dl Hct 35.8 L (37.0-47.0) % Plt Count 266 (130-400) K/uL BMP 05/09/25 06:12 Sodium 137 Potassium 4.6 Chloride 107 Carbon Dioxide 23 BUN 17 Creatinine 0.69 Glucose 138 H Calcium 9.1 I have independently reviewed and interpreted patient's labs including CBC and BMP. Medications Administered Current Inpatient Medications Acetaminophen (Acetaminophen 325 Mg Tab) 650 mg PO Q4H PRN PRN Reason: Pain or Fever Stop: 06/07/25 15:11 Al Hydrox/Mg Hydrox/Simethicone (Aluminum/Magnesium Susp 30 Ml Udc) 15 ml PO Q4H PRN PRN Reason: Dyspepsia Stop: 06/07/25 15:11 Aspirin (Aspirin 81 Mg Ectab) 81 mg PO QAM DRE Stop: 06/08/25 08:59 Last Admin: 05/09/25 09:42 Dose: 81 mg Atorvastatin Calcium (Atorvastatin 40 Mg Tab) 40 mg PO HS DRE Stop: 06/07/25 20:59 Last Admin: 05/08/25 20:30 Dose: 40 mg Buspirone HCl (Buspirone 7.5 Mg Tab) 7.5 mg PO TID DRE Stop: 06/07/25 20:59 Last Admin: 05/09/25 09:42 Dose: 7.5 mg Dextrose (Dextrose 50% 50 Ml Syringe) 25 - 50 ml IV UD PRN; Protocol PRN Reason: Hypoglycemia Protocol Stop: 06/07/25 15:11 Dicyclomine HCl (Dicyclomine Hcl 10 Mg Cap) 10 mg PO QAM [facility] Stop: 06/08/25 08:59 Last Admin: 05/09/25 10:03 Dose: 10 mg Divalproex Sodium (Divalproex Extended Release 500 Mg Tab) 500 mg PO BID [facility] Stop: 06/08/25 08:59 Last Admin: 05/09/25 09:49 Dose: 500 mg Duloxetine HCl (Duloxetine Hcl 60 Mg Cap) 60 mg PO QAM [facility] Stop: 06/08/25 08:59 Last Admin: 05/09/25 09:41 Dose: 60 mg Folic Acid (Folic Acid 1 Mg Tab) 1 mg PO DAILY DRE Stop: 06/08/25 08:59 Last Admin: 05/09/25 09:41 Dose: 1 mg Glucagon (Glucagon For Inj 1 Mg Vial) 1 mg SQ UD PRN; Protocol PRN Reason: Hypoglycemia Protocol Stop: 06/07/25 15:11 Glucose (Glucose 10 Tab/Tube) 4 - 8 tab PO UD PRN; Protocol PRN Reason: Hypoglycemia Protocol Stop: 06/07/25 15:11 Glucose (Glucose 40% Gel 15 Gm Tube) 15 - 30 gm PO UD PRN; Protocol PRN Reason: Hypoglycemia Protocol Stop: 06/07/25 15:11 Promethazine HCl (Phenergan) 12.5 mg in 50.5 mls @ 202 mls/hr IV Q6H PRN PRN Reason: Nausea And Vomiting Stop: 06/07/25 21:05 Last Infusion: 05/09/25 06:06 Dose: Infused Insulin Aspart (Insulin Aspart Per Unit Charge) 0 units SC ACHS [facility] Stop: 06/07/25 16:29 Last Admin: 05/09/25 10:52 Dose: Not Given Levothyroxine Sodium (Levothyroxine Sodium 25 Mcg Tablet) 25 mcg PO DAILYBB [facility] Stop: 06/08/25 06:29 Last Admin: 05/09/25 05:52 Dose: 25 mcg Magnesium Hydroxide (Magnesium Hydroxide Susp 30 Ml Udc) 30 ml PO Q12H PRN PRN Reason: Constipation Stop: 06/07/25 15:11 Magnesium Oxide (Magnesium Oxide 400 Mg Tab) 400 mg PO QAM [facility] Stop: 06/08/25 08:59 Last Admin: 05/09/25 09:42 Dose: 400 mg Miscellaneous (Order Awaiting Action - Depakote [address] Tablet) 1 each N/A QS [facility] Stop: 06/08/25 00:00 Last Admin: 05/09/25 10:52 Dose: Not Given Miscellaneous (Carbohydrates For Hypoglycemia ) 15 - 30 gm PO UD PRN PRN Reason: Hypoglycemia Protocol Stop: 06/07/25 15:11 Pantoprazole Sodium (Pantoprazole 40 Mg Tab) 40 mg PO BID DRE Stop: 06/07/25 20:59 Last Admin: 05/09/25 09:42 Dose: 40 mg Polyethylene Glycol (Polyethylene (Miralax) 17 Gm Pack) 17 gm PO DAILY PRN PRN Reason: Constipation Stop: 06/07/25 15:11 Prednisone (Prednisone 20 Mg Tab) 40 mg PO DAILY DRE Stop: 06/08/25 08:59 Last Admin: 05/09/25 09:48 Dose: 40 mg Propranolol HCl (Propranolol Hcl 60 Mg La Cap) 60 mg PO QAM [facility] Stop: 06/08/25 08:59 Last Admin: 05/09/25 09:42 Dose: 60 mg Sumatriptan Succinate (Sumatriptan Succinate 50 Mg Tab) 50 mg PO PRN PRN PRN Reason: Migraine Headache Stop: 06/07/25 15:11 Last Admin: 05/09/25 10:03 Dose: 50 mg Trazodone HCl (Trazodone Hcl 100 Mg Tab) 300 mg PO HS [facility] Stop: 06/07/25 20:59 Last Admin: 05/08/25 20:31 Dose: 300 mg Vitamin D (Cholecalciferol 25 Mcg (1000 Units) Tab) 50 mcg PO QAM [facility] Stop: 06/08/25 08:59 Last Admin: 05/09/25 09:42 Dose: 50 mcg
[2025-05-09] MEDS: ACETAMINOPHEN 1,000 MG/100 ML VIAL IV STA (13:26)
[2025-05-09] MEDS: SODIUM CHLORIDE 0.9% 1,000 ML IV SCH (13:27)
[2025-05-09] MEDS: MoRPHine SULFATE 2 MG/ML CARP IV PRN (15:30)
[2025-05-09] MEDS: GABAPENTIN 300 MG CAP PO SCH (20:57)
[2025-05-09] MEDS: KETOROLAC TROMETHAMINE 15 MG/ML VIAL IV PRN (21:11)
[2025-05-09] MEDS: ACETAMINOPHEN 1,000 MG/100 ML VIAL IV PRN (23:13)
[2025-05-10 06:05] LABS: Hematocrit (blood only) 34.0 % (37.0-47.0); Hemoglobin 11.6 g/dl (12.0-16.0); Mean Corpuscular Hemoglobin 30.9 pg (25.0-34.0); Mean Corpuscular Volume 90.7 fL (80.0-100.0); Platelet Count 259 K/uL (130-400); RDW Standard Deviation 44.9 fL (36.4-46.3); Red Blood Count 3.75 M/uL (4.20-5.40); White Blood Count 8.41 K/ul (4.8-10.8)
[2025-05-10 06:21] LABS: Anion Gap 6.0 (3-11); Blood Urea Nitrogen 26.0 mg/dl (6-23); Calcium 8.8 mg/dl (8.6-10.3); Carbon Dioxide 26.0 mmol/L (21-32); Chloride 107.0 mmol/L (98-107); Creatinine Clr Calc Pharmacy 76.4 ml/min; Glucose 97.0 mg/dl (70-99(Fasting)); Potassium 4.6 mmol/L (3.5-5.1); Sodium 139.0 mmol/L (136-145)
[2025-05-10] MEDS: ONDANSETRON INJ 2 MG/ML 2 ML VIAL IV PRN (07:37)
--- NOTE | 2025-05-10 10:57 | Hospitalist Progress Note ---
Date of Service May 10, 2025 Assessment & Plan (1) Migraine: (2) DM II (diabetes mellitus, type II), controlled: (3) (HFpEF) heart failure with preserved ejection fraction: (4) Dyslipidemia: (5) Nocturnal hypoxia: (6) GERD (gastroesophageal reflux disease): (7) Depression: (8) Hypothyroidism: (9) PFO (patent foramen ovale): (10) History of pulmonary embolism: (11) History of gastric bypass: Plan 60 year old female with PMH significant for type 2 diabetes, hypothyroidism, hyperlipidemia, asthma, heart failure, GERD, psoriatic arthropathy, left hemiplegia, iron deficiency anemia, depression and anxiety, history of gastric bypass (2008), history of PE, history of C diff, and chronic migraines who presented to the ED on 05/08/2025 with unilateral headache and associated paresthesia and blurry vision that she felt is different than typical migraine and was admitted for rule out stroke. Worsening of Chronic migraine Typical migraine is right sided and associated with blurry vision, photophobia, right arm/leg weakness/numbness, N/V Follows with Pam Everett PA-C of [facility] last seen in March 2025 --Prior medications include amitriptyline, topamax, Ajovy, trigger point injections --Started on Emgality in September 2024 which improved migraines significantly --Started depakote taper in March where she went from 750mg HS to 125mg HS --Planned to stop magnesium and propranolol after completion of depakote taper --Continued use of tylenol and sumatriptan PRN Patient reports this is the worst migraine she has ever experienced, possibly due to tapering of depakote outpatient Stroke work up completed with negative CT head, CTA head and neck, MRI brain Neurology consulted and recommend: --Depakote 500mg IV x1 --Continue benadryl and reglan in addition to magnesium --Can give Emgality --> non-formulary, unable to order pharmacy, and patient does not get med delivered to her home until 05/13 --Start tapering dose of prednisone (ends 05/12) --Increase depakote to 500mg bid while on steroids then resume home dose of 125mg HS (to be resumed on 05/13 but home dose is non formulary) --Sleep, rest, IV hydration --Add gabapentin 300mg bid-> increased to tid --Add morphine PRN Type 2 diabetes On Ozempic at home A1C 5.8% BSG ACHS and SSI while inpatient HFpEF Echo in January 2025 revealed EF 55-60%, grade 1 diastolic dysfunction, mild aortic valve sclerosis Patient appears euvolemic Monitor I&Os Dyslipidemia Continue statin GERD Continue pantoprazole, pepcid, and carafate Depression Continue duloxetine, buspirone, and trazodone Hypothyroidism Continue levothyroxine Nocturnal hypoxia Per nocturnal oximetry in January 2025 Wears 2-3L O2 at night PFO Incidentally found during hospitalization in November 2023 Scheduled repair on 06/05/2025 [place] [facility] [place] History of PE s/p anti-coagulation x6 months Continue aspirin History of gastric bypass [facility]s [facility] Continue vitamin supplementation DVT Prophylaxis: SCDs Code Status: DNR/DNI PCP: Krystyna John Disposition: dc dependent on improvement of migraine Patient seen in collaboration with Dr. Porter. Please see addendum. I spent a total of 40 minutes coordinating, documenting and providing care for this patient excluding time spent in the performance of separately billed services or time spent by another provider/QHP. Admission and Anticipated Discharge Date Admission Date: May 09, 2025 Supervising Physician Co-Signing Physician Notes Patient seen and examined Agree with plans as detailed by Evelia GONZALEZ Subjective Patient seen laying in bed Reports continued severe headache with associated right eye blurry vision, right arm and leg numbness and tingling, nausea, photo/phonophobia Notes morphine takes the edge off slightly but only for a short amount of time Denies chest pain, SOB, abdominal pain, vomiting, dysuria Review of Systems Review of Systems: All systems reviewed & are unremarkable except as noted in Subjective Physical Exam Physical Exam: General/Psych: WD/WN, laying in bed, NAD, conversing easily Head: normocephalic, atraumatic Eyes: normal inspection, PERRL, conjunctivae pink ENT: external ear and nose normal, oropharynx normal Neck: normal visual inspection, trachea midline Respiratory: normal respiratory effort, lungs clear to auscultation, no wheeze/rales/rhonchi, no accessory muscle use Cardiovascular: regular rate and rhythm, no murmur/rub/gallop, no JVD Extremities: no cyanosis or clubbing, normal peripheral pulses, no BLE edema Abdomen/GI: normal bowel sounds, soft, nontender Neurologic/MSK: A+Ox3, moves all extremities Skin: no rashes, normal color, warm and dry Results & Data Results & Data Vital Signs (Past 12 Hours) Vital Signs Temp Pulse Resp BP Pulse Ox O2 Del Method 05/10/25 07:31 36.5 C 61 19 113/71 91 Room Air 05/10/25 03:59 36.6 C 56 L 16 123/79 92 Room Air 05/10/25 00:26 36.5 C 65 18 126/79 93 Room Air Laboratory Results Short CBC 05/10/25 Range/Units 05:42 WBC 8.41 (4.8-10.8) K/ul Hgb 11.6 L (12.0-16.0) g/dl Hct 34.0 L (37.0-47.0) % Plt Count 259 (130-400) K/uL BMP 05/10/25 05:42 Sodium 139 Potassium 4.6 Chloride 107 Carbon Dioxide 26 BUN 26 H Creatinine 0.87 Glucose 97 Calcium 8.8 I have independently reviewed and interpreted patient's labs including CBC and BMP. Medications Administered Current Inpatient Medications Al Hydrox/Mg Hydrox/Simethicone (Aluminum/Magnesium Susp 30 Ml Udc) 15 ml PO Q4H PRN PRN Reason: Dyspepsia Stop: 06/07/25 15:11 Aspirin (Aspirin 81 Mg Ectab) 81 mg PO QAM DRE Stop: 06/08/25 08:59 Last Admin: 05/10/25 08:30 Dose: 81 mg Atorvastatin Calcium (Atorvastatin 40 Mg Tab) 40 mg PO HS DRE Stop: 06/07/25 20:59 Last Admin: 05/09/25 20:59 Dose: 40 mg Buspirone HCl (Buspirone 7.5 Mg Tab) 7.5 mg PO TID DRE Stop: 06/07/25 20:59 Last Admin: 05/10/25 08:30 Dose: 7.5 mg Dextrose (Dextrose 50% 50 Ml Syringe) 25 - 50 ml IV UD PRN; Protocol PRN Reason: Hypoglycemia Protocol Stop: 06/07/25 15:11 Dicyclomine HCl (Dicyclomine Hcl 10 Mg Cap) 10 mg PO QAM DRE Stop: 06/08/25 08:59 Last Admin: 05/10/25 08:30 Dose: 10 mg Divalproex Sodium (Divalproex Extended Release 500 Mg Tab) 500 mg PO BID [facility] Stop: 06/08/25 08:59 Last Admin: 05/10/25 08:31 Dose: 500 mg Duloxetine HCl (Duloxetine Hcl 60 Mg Cap) 60 mg PO QAM [facility] Stop: 06/08/25 08:59 Last Admin: 05/10/25 08:30 Dose: 60 mg Folic Acid (Folic Acid 1 Mg Tab) 1 mg PO DAILY DRE Stop: 06/08/25 08:59 Last Admin: 05/10/25 08:30 Dose: 1 mg Gabapentin (Gabapentin 300 Mg Cap) 300 mg PO TID [facility] Stop: 06/09/25 13:59 Glucagon (Glucagon For Inj 1 Mg Vial) 1 mg SQ UD PRN; Protocol PRN Reason: Hypoglycemia Protocol Stop: 06/07/25 15:11 Glucose (Glucose 10 Tab/Tube) 4 - 8 tab PO UD PRN; Protocol PRN Reason: Hypoglycemia Protocol Stop: 06/07/25 15:11 Glucose (Glucose 40% Gel 15 Gm Tube) 15 - 30 gm PO UD PRN; Protocol PRN Reason: Hypoglycemia Protocol Stop: 06/07/25 15:11 Promethazine HCl (Phenergan) 12.5 mg in 50.5 mls @ 202 mls/hr IV Q6H PRN PRN Reason: Nausea And Vomiting Stop: 06/07/25 21:05 Last Infusion: 05/10/25 11:09 Dose: Infused Acetaminophen (Ofirmev) 1,000 mg in 100 mls @ 400 mls/hr IV Q8H PRN PRN Reason: Migraine Headache Stop: 05/12/25 14:29 Last Infusion: 05/10/25 09:13 Dose: Infused Insulin Aspart (Insulin Aspart Per Unit Charge) 0 units SC ACHS [facility] Stop: 06/07/25 16:29 Last Admin: 05/10/25 12:57 Dose: 3 units Ketorolac Tromethamine (Ketorolac Tromethamine 15 Mg/Ml Vial) 15 mg IV Q6H PRN PRN Reason: Migraine Headache Stop: 05/14/25 14:29 Last Admin: 05/10/25 12:42 Dose: 15 mg Levothyroxine Sodium ([facility]othyroxine S[facility] 25 Mcg Tablet) [facility]: 06/08/25 06:29 Last Admin: 05/10/25 05:43 Dose: 25 mcg Magnesium Hydroxide (Magnesium Hydroxide Susp 30 Ml Udc) 30 ml PO Q12H PRN PRN Reason: Constipation Stop: 06/07/25 15:11 Magnesium Oxide (Magnesium Oxide 400 Mg Tab) 400 mg PO QAM [facility] Stop: 06/08/25 08:59 Last Admin: 05/10/25 08:30 Dose: 400 mg Metoclopramide HCl (Metoclopramide Hcl Inj 5 Mg/Ml 2 Ml Vial) 10 mg IV Q6H PRN PRN Reason: Nausea Stop: 06/08/25 14:29 Miscellaneous (Order Awaiting Action - Depakote [address] Tablet) 1 each N/A QS [facility] Stop: 06/08/25 00:00 Last Admin: 05/10/25 09:11 Dose: Not Given Miscellaneous (Carbohydrates For Hypoglycemia ) 15 - 30 gm PO UD PRN PRN Reason: Hypoglycemia Protocol Stop: 06/07/25 15:11 Morphine Sulfate (Morphine Sulfate 2 Mg/Ml Carp) 2 mg IV Q6 PRN PRN Reason: Migraine Headache Stop: 05/23/25 14:58 Last Admin: 05/10/25 07:37 Dose: 2 mg Ondansetron HCl (Ondansetron Inj 2 Mg/Ml 2 Ml Vial) 4 mg IV Q6H PRN PRN Reason: Nausea And Vomiting Stop: 06/08/25 14:30 Last Admin: 05/10/25 07:37 Dose: 4 mg Pantoprazole Sodium (Pantoprazole 40 Mg Tab) 40 mg PO BID [facility] Stop: 06/07/25 20:59 Last Admin: 05/10/25 08:30 Dose: 40 mg Polyethylene Glycol (Polyethylene (Miralax) 17 Gm Pack) 17 gm PO DAILY PRN PRN Reason: Constipation Stop: 06/07/25 15:11 Propranolol HCl (Propranolol Hcl 60 Mg [place]) 60 mg PO QAM [facility] Stop: 06/08/25 08:59 Last Admin: 05/10/25 08:30 Dose: 60 mg Sumatriptan Succinate (Sumatriptan Succinate 50 Mg Tab) 50 mg PO PRN PRN PRN Reason: Migraine Headache Stop: 06/07/25 15:11 Last Admin: 05/10/25 10:27 Dose: 50 mg Trazodone HCl (Trazodone Hcl 100 Mg Tab) 300 mg PO [facility] Stop: 06/07/25 20:59 Last Admin: 05/10/25 02:52 Dose: 300 mg Vitamin D (Cholecalciferol 25 Mcg (1000 Units) Tab) 50 mcg PO [facility] Stop: 06/08/25 08:59 Last Admin: 05/10/25 08:30 Dose: 50 mcg
[2025-05-10] MEDS: GABAPENTIN 300 MG CAP PO SCH (15:43)
[2025-05-11 05:59] LABS: Hematocrit (blood only) 35.3 % (37.0-47.0); Hemoglobin 11.7 g/dl (12.0-16.0); Mean Corpuscular Hemoglobin 30.5 pg (25.0-34.0); Mean Corpuscular Volume 91.9 fL (80.0-100.0); Platelet Count 250 K/uL (130-400); RDW Standard Deviation 45.6 fL (36.4-46.3); Red Blood Count 3.84 M/uL (4.20-5.40); White Blood Count 8.91 K/ul (4.8-10.8)
[2025-05-11 06:18] LABS: Anion Gap 4.0 (3-11); Blood Urea Nitrogen 24.0 mg/dl (6-23); Calcium 8.5 mg/dl (8.6-10.3); Carbon Dioxide 29.0 mmol/L (21-32); Chloride 106.0 mmol/L (98-107); Creatinine Clr Calc Pharmacy 71.0 ml/min; Glucose 87.0 mg/dl (70-99(Fasting)); Potassium 4.8 mmol/L (3.5-5.1); Sodium 139.0 mmol/L (136-145)
[2025-05-11] MEDS: predniSONE 20 MG TAB PO ONE (08:37)
[2025-05-11] MEDS: METOCLOPRAMIDE HCL INJ 5 MG/ML 2 ML VIAL IV PRN (10:15)
--- NOTE | 2025-05-11 11:53 | Hospitalist Progress Note ---
Date of Service May 11, 2025 Assessment & Plan (1) Migraine: (2) DM II (diabetes mellitus, type II), controlled: (3) (HFpEF) heart failure with preserved ejection fraction: (4) Dyslipidemia: (5) Nocturnal hypoxia: (6) GERD (gastroesophageal reflux disease): (7) Depression: (8) Hypothyroidism: (9) PFO (patent foramen ovale): (10) History of pulmonary embolism: (11) History of gastric bypass: Plan 60 year old female with PMH significant for type 2 diabetes, hypothyroidism, hyperlipidemia, asthma, heart failure, GERD, psoriatic arthropathy, left hemiplegia, iron deficiency anemia, depression and anxiety, history of gastric bypass (2008), history of PE, history of C diff, and chronic migraines who presented to the ED on 05/08/2025 with unilateral headache and associated paresthesia and blurry vision that she felt is different than typical migraine and was admitted for rule out stroke. Worsening of Chronic migraine Typical migraine is right sided and associated with blurry vision, photophobia, right arm/leg weakness/numbness, N/V Follows with Pam Everett PA-C of [facility] last seen in March 2025 -Prior medications include amitriptyline, topamax, Ajovy, trigger point injections -Started on Emgality in September 2024 which improved migraines significantly -Started depakote taper in March where she went from 750mg HS to 125mg HS -Planned to stop magnesium and propranolol after completion of depakote taper -Continued use of tylenol and sumatriptan PRN Patient reports this is the worst migraine she has ever experienced, possibly due to tapering of depakote outpatient Stroke work up completed with negative CT head, CTA head and neck, MRI brain Neurology consulted and recommend: -Depakote 500mg IV x1 -Continue benadryl and reglan in addition to magnesium -Can give Emgality --> non-formulary. Our pharm reported they cannot order it. Patient does not get med delivered to her home until 05/13 -Currently on tapering dose of prednisone (ends 05/12) -Currently on increase depakote to 500mg bid while on steroids then resume home dose of 125mg HS -Sleep, rest, IV hydration -Gabapentin 300mg was added and increased to tid -Also on morphine PRN Type 2 diabetes On Ozempic at home A1C 5.8% BSG ACHS and SSI while inpatient HFpEF Echo in January 2025 revealed EF 55-60%, grade 1 diastolic dysfunction, mild aortic valve sclerosis Patient appears euvolemic Monitor I&Os Dyslipidemia Continue statin GERD Continue pantoprazole, pepcid, and carafate Depression Continue duloxetine, buspirone, and trazodone Hypothyroidism Continue levothyroxine Nocturnal hypoxia Per nocturnal oximetry in January 2025 Wears 2-3L O2 at night PFO Incidentally found during hospitalization in November 2023 [place] [facility] [place] of PE s/p anti-coagulation x6 months Continue aspirin History of gastric bypass [facility] Continue vitamin supplementation DVT Prophylaxis: SCDs Code Status: DNR/DNI PCP: Krystyna John I spent a total of 50 minutes coordinating, documenting and providing care for this patient excluding time spent in performance of separately billed services Admission and Anticipated Discharge Date Admission Date: May 09, 2025 Subjective Patient seen and examined Continues to reports persistent right sided migraine associated with light sensitivity, right hand paresthesia and nausea No other complaints Physical Exam Constitutional: + well hydrated; no acute distress Eyes: PERRL, conjunctivae normal, anicteric sclerae ENMT: external ear and nose normal, oropharynx normal Respiratory: normal respiratory effort, lungs clear to auscultation Cardiovascular: Rate/Rhythm: + bradycardic Gastrointestinal (Abdomen): normal bowel sounds, soft, nontender, no hepatosplenomegaly Musculoskeletal: no cyanosis or clubbing, extremities motor strength 5/5 Neurologic: PERRL, EOMI, accommodation nl, no face palsy, no dysarthria Psychiatric: A+Ox3, euthymic affect Results & Data Results & Data Vital Signs (Past 12 Hours) Vital Signs Temp Pulse Resp BP Pulse Ox O2 Del Method 05/11/25 07:56 36.3 C L 96 H 17 121/76 90 Room Air 05/11/25 04:00 36.8 C 97 H 18 125/90 93 Room Air Laboratory Results Abnormal lab results 05/10/25 05/10/25 05/11/25 Range/Units 16:41 19:54 05:30 RBC 3.84 L (4.20-5.40) M/uL Hgb 11.7 L (12.0-16.0) g/dl Hct 35.3 L (37.0-47.0) % BUN 24 H (6-23) mg/dl BUN/Creatinine Ratio 25.0 H (10-20) POC Glucose 195 H 100 H (70-99) mg/dl Calcium 8.5 L (8.6-10.3) mg/dl 05/11/25 Range/Units 11:52 RBC (4.20-5.40) M/uL Hgb (12.0-16.0) g/dl Hct (37.0-47.0) % BUN (6-23) mg/dl BUN/Creatinine Ratio (10-20) POC Glucose 104 H (70-99) mg/dl Calcium (8.6-10.3) mg/dl
[2025-05-11] MEDS: SODIUM CHLORIDE 0.9% 1,000 ML IV SCH (17:45)
[2025-05-11] MEDS: POLYETHYLENE (MIRALAX) 17 GM PACK PO PRN (18:33)
[2025-05-12 06:19] LABS: Hematocrit (blood only) 34.3 % (37.0-47.0); Hemoglobin 11.5 g/dl (12.0-16.0); Mean Corpuscular Hemoglobin 31.0 pg (25.0-34.0); Mean Corpuscular Volume 92.5 fL (80.0-100.0); Platelet Count 243 K/uL (130-400); RDW Standard Deviation 46.2 fL (36.4-46.3); Red Blood Count 3.71 M/uL (4.20-5.40); White Blood Count 8.74 K/ul (4.8-10.8)
[2025-05-12 06:40] LABS: Anion Gap 4.0 (3-11); Blood Urea Nitrogen 21.0 mg/dl (6-23); Calcium 8.3 mg/dl (8.6-10.3); Carbon Dioxide 29.0 mmol/L (21-32); Chloride 107.0 mmol/L (98-107); Creatinine Clr Calc Pharmacy 70.5 ml/min; Glucose 83.0 mg/dl (70-99(Fasting)); Magnesium 2.3 mg/dl (1.7-2.4); Potassium 4.9 mmol/L (3.5-5.1); Sodium 140.0 mmol/L (136-145)
--- NOTE | 2025-05-12 13:44 | Hospitalist Progress Note ---
Date of Service May 12, 2025 Assessment & Plan (1) Migraine: (2) DM II (diabetes mellitus, type II), controlled: (3) (HFpEF) heart failure with preserved ejection fraction: (4) Dyslipidemia: (5) Nocturnal hypoxia: (6) GERD (gastroesophageal reflux disease): (7) Depression: (8) Hypothyroidism: (9) PFO (patent foramen ovale): (10) History of pulmonary embolism: (11) History of gastric bypass: Plan 60 year old female with PMH significant for type 2 diabetes, hypothyroidism, hyperlipidemia, asthma, heart failure, GERD, psoriatic arthropathy, left hemiplegia, iron deficiency anemia, depression and anxiety, history of gastric bypass (2008), history of PE, history of C diff, and chronic migraines who presented to the ED on 05/08/2025 with unilateral headache and associated paresthesia and blurry vision that she felt is different than typical migraine and was admitted for rule out stroke. Worsening of Chronic migraine Typical migraine is right sided and associated with blurry vision, photophobia, right arm/leg weakness/numbness, N/V Follows with Pam Everett PA-C of [facility] last seen in March 2025 Prior medications include amitriptyline, topamax, Ajovy, trigger point injections Started on Emgality in September 2024 which improved migraines significantly Started depakote taper in March where she went from 750mg HS to 125mg HS Planned to stop magnesium and propranolol after completion of depakote taper Continued use of tylenol and sumatriptan PRN Patient reports this is the worst migraine she has ever experienced, possibly due to tapering of depakote outpatient Stroke work up completed with negative CT head, CTA head and neck, MRI brain Neurology consulted and recommend: Depakote 500mg IV x1 Continue magnesium and propanolol Can give Emgality --> non-formulary. Our pharm reported they cannot order it. Antonino cantimothy does not get med delivered to her home until 05/13 - plan to give tomorrow s/p tapering dose of prednisone (completed today) Currently on increase depakote to 500mg bid while on steroids then resume home dose of 125mg HS Sleep, rest, IV hydration Gabapentin 300mg was added and increased to tid Also on low dose morphine PRN Type 2 diabetes On Ozempic at home A1C 5.8% BSG ACHS and SSI while inpatient HFpEF Echo in January 2025 revealed EF 55-60%, grade 1 diastolic dysfunction, mild aortic valve sclerosis Patient appears euvolemic, not on routine diuretics Monitor I&Os Dyslipidemia Continue statin GERD Continue pantoprazole, pepcid, and carafate Depression Continue duloxetine, buspirone, and trazodone Hypothyroidism Continue levothyroxine Nocturnal hypoxia Per nocturnal oximetry in January 2025 Wears 2-3L O2 at night PFO Incidentally found during hospitalization in November 2023 Scheduled repair on 06/05/2025 at [facility] [place] History of PE s/p anti-coagulation x6 months Continue aspirin History of gastric bypass [facility] Continue vitamin supplementation DVT PROPHYLAXIS SCDs Dispo: anticipate d/c home once migraine more controlled I spent a total of 35 minutes coordinating, documenting, and providing care for this patient excluding time spent in the performance of separately billed services. This included personally reviewing all current laboratories and imaging studies, medication reconciliation, outpatient chart review, and discussion with specialists. Admission and Anticipated Discharge Date Admission Date: May 09, 2025 Supervising Physician Co-Signing Physician Notes Patient seen and examined Agree with findings and plans as detailed by Nuha GONZALEZ Subjective Follow-up for intractable migraine. Patient seen and examined. Ongoing symptoms of right sided headache that she describes as pressure, right hand numbness/tingling, photo sensitivity, nausea. Physical Exam Constitutional: WD/WN, vitals as above no acute distress Respiratory: normal respiratory effort, lungs clear to auscultation Cardiovascular: Rate/Rhythm: regular rate and regular rhythm Extremities: no edema Skin: no rashes, warm and dry Neurologic: no focal motor deficits Psychiatric: A+Ox3, euthymic affect Results & Data Results & Data Vital Signs (Past 12 Hours) Vital Signs Temp Pulse Resp BP Pulse Ox O2 Del Method O2 Flow Rate 05/12/25 11:07 36.3 C L 54 L 18 119/81 95 Nasal Cannula 3 05/12/25 08:00 36.4 C L 56 L 18 136/91 92 Nasal Cannula 3 05/12/25 03:23 36.3 C L 57 L 16 119/81 93 Nasal Cannula 2 Laboratory Results Short CBC 05/12/25 Range/Units 05:32 WBC 8.74 (4.8-10.8) K/ul Hgb 11.5 L (12.0-16.0) g/dl Hct 34.3 L (37.0-47.0) % Plt Count 243 (130-400) K/uL [facility] 05/12/25 05:32 Sodium 140 Potassium 4.9 Chloride 107 Carbon Dioxide 29 BUN 21 Creatinine 0.97 Glucose 83 Calcium 8.3 L
[2025-05-12] MEDS: ACETAMINOPHEN 1,000 MG/100 ML VIAL IV STA (21:15)
[2025-05-12] MEDS: LORazepam 0.5 MG TAB PO STA (22:24)
[2025-05-12] MEDS: GADOBUTROL 65ML VIAL IV ONE (23:10)
--- NOTE | 2025-05-12 23:56 | CT Scan Report ---
Exam(s): CT HEAD Without Contrast EXAM: CT Head Without Intravenous Contrast CLINICAL HISTORY: Reason for exam: blurred vision. TECHNIQUE: Axial computed tomography images of the head/brain without intravenous contrast. CTDI is 36.43 mGy and DLP is 625.8 mGy-cm. Automated exposure control was utilized for the study. A dose lowering technique was utilized adhering to the principles of ALARA. COMPARISON: No relevant prior studies available. FINDINGS: Brain: Unremarkable. No hemorrhage. No significant white matter disease. No edema. Ventricles: Unremarkable. No ventriculomegaly. Bones/joints: Unremarkable. No acute fracture. Soft tissues: Unremarkable. Sinuses: Unremarkable as visualized. No acute sinusitis. Mastoid air cells: Unremarkable as visualized. No mastoid effusion. IMPRESSION: No evidence of acute intracranial pathology. Electronically signed by: Candelaria Trevino MD 05/12/25 23:55 PM
--- NOTE | 2025-05-13 01:15 | Magnetic Resonance Report ---
Exam(s): MRV HEAD EXAM: MR Head Without Intravenous Contrast CLINICAL HISTORY: Reason for exam: persistent headaches. TECHNIQUE: Magnetic resonance images of the head/brain without intravenous contrast in multiple planes. COMPARISON: Prior CT angiogram of the head from May 08, 2025. FINDINGS: Brain: Unremarkable. No mass. No hemorrhage. No acute infarct. Ventricles: Unremarkable. No ventriculomegaly. Bones/joints: Unremarkable. No acute fracture. Sinuses: Unremarkable as visualized. No acute sinusitis. Mastoid air cells: Unremarkable as visualized. No mastoid effusion. Orbits: Unremarkable as visualized. IMPRESSION: Negative MRV of the brain. Electronically signed by: Candelaria Trevino MD 05/13/25 01:15 AM
--- NOTE | 2025-05-13 01:21 | Magnetic Resonance Report ---
Exam(s): MRI HEAD W/WO Contrast IV Amt: 10cc gadavist EXAM: MR Head Without and With Intravenous Contrast CLINICAL HISTORY: Reason for exam: double vision. TECHNIQUE: Magnetic resonance images of the head/brain without and with intravenous contrast in multiple planes. CONTRAST: Patient received 10cc gadavist of IV contrast COMPARISON: No relevant prior studies available. FINDINGS: Brain: There is a tiny acute ischemic injury in the posterior right frontal lobe without evidence of hemorrhagic transformation. There is a remote ischemic injury of the right cerebellum. Mild nonspecific white matter changes. There is a tiny dural based soft tissue lesion along the left anterior falx consistent with a meningioma measuring 9.9 x 8.2 x 8.6 mm. No hemorrhage. The flow voids at the base of the brain are intact. No abnormal enhancement of the brain parenchyma. The dural venous sinuses are patent. Ventricles: Unremarkable. No ventriculomegaly. Bones/joints: Unremarkable. No acute fracture. Sinuses: Unremarkable as visualized. No acute sinusitis. Mastoid air cells: There is a small amount of fluid in the left mastoid air cells. No mastoid effusion. Orbits: Unremarkable as visualized. IMPRESSION: There is a tiny acute ischemic injury in the posterior right frontal lobe without evidence of hemorrhagic transformation. Communications: Verify Receipt Electronically signed by: Candelaria Trevino MD 05/13/25 01:20 AM
[2025-05-13] MEDS ORDERED: PHARMACIST DISCHARGE MED REC CONSULT PRN (01:41)
[2025-05-13] MEDS: CLOPIDOGREL BISULFATE 75 MG TAB PO ONE (01:55)
[2025-05-13 06:16] LABS: Hematocrit (blood only) 33.7 % (37.0-47.0); Hemoglobin 11.1 g/dl (12.0-16.0); Immature Granulocytes # (auto) 0.02 K/uL (0.01-0.20); Immature Granulocytes % (auto) 0.2 %; Mean Corpuscular Hemoglobin 30.6 pg (25.0-34.0); Mean Corpuscular Volume 92.8 fL (80.0-100.0); Platelet Count 227 K/uL (130-400); RDW Standard Deviation 45.5 fL (36.4-46.3); Red Blood Count 3.63 M/uL (4.20-5.40); White Blood Count 9.79 K/ul (4.8-10.8)
[2025-05-13 06:39] LABS: Anion Gap 3.0 (3-11); Blood Urea Nitrogen 22.0 mg/dl (6-23); Calcium 8.0 mg/dl (8.6-10.3); Carbon Dioxide 31.0 mmol/L (21-32); Chloride 104.0 mmol/L (98-107); Cholesterol 107.0 mg/dl (0-200); Creatinine Clr Calc Pharmacy 73.6 ml/min; Glucose 83.0 mg/dl (70-99(Fasting)); HDL Cholesterol 40.0 mg/dl; Potassium 4.8 mmol/L (3.5-5.1); Sodium 138.0 mmol/L (136-145); Triglycerides 90.0 mg/dl (0-150)
--- NOTE | 2025-05-13 08:14 | Communication Note ---
Date of Service: May 13, 2025 Last night patient was still having severe headaches. Still having right-sided numbness. Patient states having double vision in right eye since admission. But since 1 PM yesterday having double vision in the both eyes. Ordered CT head. MRI brain and MRA brain. CT head and MRV brain were okay. But MRI brain showing tiny acute ischemic injury in the posterior right frontal lobe without evidence of hemorrhagic transformation. Patient is alert and oriented. Ambulating in the room. Able to count fingers okay though having double vision. Coordination movement normal. Diminished sensation on the right side. Power 3 t- 4 / 5 on the right side and 5 / 5 on left side. Patient is on aspirin and statin. Added Plavix. Reconsulted neurology.
[2025-05-13] MEDS: CLOPIDOGREL BISULFATE 75 MG TAB PO SCH (08:17)
[2025-05-13] MEDS: diphenhydrAMINE 50 MG/ML VIAL IV ONE (11:36)
[2025-05-13] MEDS: PROCHLORPERAZINE 5 MG in SYRINGE 4 ML IV ONE (11:36)
[2025-05-13] MEDS: KETOROLAC 30 MG/ML VIAL IV ONE (11:36)
--- NOTE | 2025-05-13 15:13 | Hospitalist Progress Note ---
<Statement entered by Rachid Cabrera DO - 05/13/25 16:41> Patient not seen by physician Plan d/w HELEN #Status migraine -Numerous medications not effective -She is brining in her emgality today from home -Appreciate neuro input #Acute ischemic stroke -MRI brain done last night incidentally showed a new small frontal lobe infarct -She does have a PFO and is due for closure later this year -D/w neurology, recommends DAPT, high intensity statin, consulting cardio and checking echo -ROPE score 3-4 depending on if this was a cortical infarct -Check dopplers Date of Service May 13, 2025 Assessment & Plan (1) Migraine: (2) DM II (diabetes mellitus, type II), controlled: (3) (HFpEF) heart failure with preserved ejection fraction: (4) Dyslipidemia: (5) Nocturnal hypoxia: (6) GERD (gastroesophageal reflux disease): (7) Depression: (8) Hypothyroidism: (9) PFO (patent foramen ovale): (10) History of pulmonary embolism: (11) History of gastric bypass: Plan 60 year old female with PMH significant for type 2 diabetes, hypothyroidism, hyperlipidemia, asthma, heart failure, GERD, psoriatic arthropathy, left hemiplegia, iron deficiency anemia, depression and anxiety, history of gastric bypass (2008), history of PE, history of C diff, and chronic migraines who presented to the ED on 05/08/2025 with unilateral headache and associated paresthesia and blurry vision that she felt is different than typical migraine and was admitted for rule out stroke. Worsening of Chronic migraine Typical migraine is right sided and associated with blurry vision, photophobia, right arm/leg weakness/numbness, N/V Follows with Pam Everett PA-C of [facility] last seen in March 2025 Prior medications include amitriptyline, topamax, Ajovy, trigger point injections Started on Emgality in September 2024 which improved migraines significantly Started depakote taper in March where she went from 750mg HS to 125mg HS Planned to stop magnesium and propranolol after completion of depakote taper Continued use of tylenol and sumatriptan PRN Patient reports this is the worst migraine she has ever experienced, possibly due to tapering of depakote outpatient Stroke work up completed with negative CT head, CTA head and neck, MRI brain Neurology consulted and recommend: Depakote 500mg IV x1 Continue magnesium and propanolol Can give Emgality --> non-formulary. Our pharm reported they cannot order it. Patient does not get med delivered to her home until 05/13 - still awaiting for med to arrive today s/p tapering dose of prednisone (completed 05/13) s/p increased depakote to 500mg BID while on steroids -> resume home dose of 125mg HS today Sleep, rest, IV hydration Gabapentin 300mg was added and increased to TID On low dose morphine PRN Will d/c PRN sumatriptan given tiny acute stroke noted on MRI Acute CVA Last evening patient developed worsening double vision. Head CT/MRV/MRI obtained overnight. MRI showing tiny acute ischemic injury in the posterior right frontal lobe. On ASA and statin, Plavix added Neck CTA on 05/08 unremarkable Echo pending Telemetry reviewed with [employer], no afib noted or reported Note hx of PFO and is to undergo closure on 06/05. Also remote hx of PE in 2015 s/p 6 months of anticoagulation. Will obtain BLLE venous doppler. Re-consult neuro Cardio consult Type 2 diabetes On Ozempic at home A1C 5.8% BSG ACHS and SSI while inpatient HFpEF Echo in January 2025 revealed EF 55-60%, grade 1 diastolic dysfunction, mild aortic valve sclerosis Patient appears euvolemic, not on routine diuretics Monitor I&Os Dyslipidemia Continue statin GERD Continue pantoprazole, pepcid, and carafate Depression Continue duloxetine, buspirone, and trazodone Hypothyroidism Continue levothyroxine Nocturnal hypoxia Per nocturnal oximetry in January 2025 Prescribed 2-3L O2 at night however patient states she uses 2L continuous PFO Incidentally found during hospitalization in November 2023 [place] [facility] [place] of PE s/p anti-coagulation x6 months History of gastric bypass [facility] Continue vitamin supplementation DVT PROPHYLAXIS SCDs Dispo: anticipate d/c home pending stroke work up I spent a total of 60 minutes coordinating, documenting, and providing care for this patient excluding time spent in the performance of separately billed services. This included personally reviewing all current laboratories and imaging studies, medication reconciliation, outpatient chart review, and discussion with specialists. Admission and Anticipated Discharge Date Admission Date: May 09, 2025 Subjective Follow up for intractable migraine, acute small CVA. Patient seen and examined. Developed worsening double vision last evening. Had been experiencing double vision in the right eye however began to involve the left eye as well. Head CT/MRV/MRI obtained overnight. MRI showing tiny acute ischemic injury in the posterior right frontal lobe. Reports headache and double vision remains unchanged. Also still has some numbness/tingling in the right hand with ongoing nausea and photosensitivity. Physical Exam Constitutional: WD/WN, vitals as above no acute distress Respiratory: normal respiratory effort, lungs clear to auscultation Cardiovascular: Rate/Rhythm: regular rate and regular rhythm Vessels: normal peripheral pulses Extremities: no edema Skin: no rashes, warm and dry Neurologic: RUE strength 4/5, LUE strength 5/5 - no other deficits noted Psychiatric: A+Ox3, euthymic affect Results & Data Results & Data Vital Signs (Past 12 Hours) Vital Signs Temp Pulse Pulse Resp BP Pulse Ox O2 Del Method 05/13/25 13:54 57 L 05/13/25 11:19 36.4 C L 65 18 105/71 92 Nasal Cannula 05/13/25 10:59 Nasal Cannula 05/13/25 08:06 36.6 C 58 L 18 109/72 91 Nasal Cannula 05/13/25 07:25 52 L 05/13/25 03:55 36.8 C 78 16 114/76 90 Nasal Cannula O2 Flow Rate 05/13/25 13:54 05/13/25 11:19 2 05/13/25 10:59 2 05/13/25 08:06 2 05/13/25 07:25 05/13/25 03:55 2 Laboratory Results Short CBC 05/13/25 Range/Units 05:43 WBC 9.79 (4.8-10.8) K/ul Hgb 11.1 L (12.0-16.0) g/dl Hct 33.7 L (37.0-47.0) % Plt Count 227 (130-400) K/uL BMP 05/13/25 05:43 Sodium 138 Potassium 4.8 Chloride 104 Carbon Dioxide 31 BUN 22 Creatinine 0.93 Glucose 83 Calcium 8.0 L Diagnostic Findings Head CT 05/12/25 20:21 Exam(s): CT HEAD Without Contrast EXAM: CT Head Without Intravenous Contrast CLINICAL HISTORY: Reason for exam: blurred vision. TECHNIQUE: Axial computed tomography images of the head/brain without intravenous contrast. CTDI is 36.43 mGy and DLP is 625.8 mGy-cm. Automated exposure control was utilized for the study. A dose lowering technique was utilized adhering to the principles of ALARA. COMPARISON: No relevant prior studies available. FINDINGS: Brain: Unremarkable. No hemorrhage. No significant white matter disease. No edema. Ventricles: Unremarkable. No ventriculomegaly. Bones/joints: Unremarkable. No acute fracture. Soft tissues: Unremarkable. Sinuses: Unremarkable as visualized. No acute sinusitis. Mastoid air cells: Unremarkable as visualized. No mastoid effusion. IMPRESSION: No evidence of acute intracranial pathology. Electronically signed by: Candelaria Trevino MD 05/12/25 23:55 PM Brain MRI 05/12/25 20:42 CR Exam(s): MRI HEAD W/WO Contrast IV Amt: 10cc gadavist EXAM: MR Head Without and With Intravenous Contrast CLINICAL HISTORY: Reason for exam: double vision. TECHNIQUE: Magnetic resonance images of the head/brain without and with intravenous contrast in multiple planes. CONTRAST: Patient received 10cc gadavist of IV contrast COMPARISON: No relevant prior studies available. FINDINGS: Brain: There is a tiny acute ischemic injury in the posterior right frontal lobe without evidence of hemorrhagic transformation. There is a remote ischemic injury of the right cerebellum. Mild nonspecific white matter changes. There is a tiny dural based soft tissue lesion along the left anterior falx consistent with a meningioma measuring 9.9 x 8.2 x 8.6 mm. No hemorrhage. The flow voids at the base of the brain are intact. No abnormal enhancement of the brain parenchyma. The dural venous sinuses are patent. Ventricles: Unremarkable. No ventriculomegaly. Bones/joints: Unremarkable. No acute fracture. Sinuses: Unremarkable as visualized. No acute sinusitis. Mastoid air cells: There is a small amount of fluid in the left mastoid air cells. No mastoid effusion. Orbits: Unremarkable as visualized. IMPRESSION: There is a tiny acute ischemic injury in the posterior right frontal lobe without evidence of hemorrhagic transformation. Communications: Verify Receipt Electronically signed by: Candelaria Trevino MD 05/13/25 01:20 AM Head/Brain Mag Res Venography 05/12/25 20:42 Exam(s): MRV HEAD EXAM: MR Head Without Intravenous Contrast CLINICAL HISTORY: Reason for exam: persistent headaches. TECHNIQUE: Magnetic resonance images of the head/brain without intravenous contrast in multiple planes. COMPARISON: Prior CT angiogram of the head from May 08, 2025. FINDINGS: Brain: Unremarkable. No mass. No hemorrhage. No acute infarct. Ventricles: Unremarkable. No ventriculomegaly. Bones/joints: Unremarkable. No acute fracture. Sinuses: Unremarkable as visualized. No acute sinusitis. Mastoid air cells: Unremarkable as visualized. No mastoid effusion. Orbits: Unremarkable as visualized. IMPRESSION: Negative MRV of the brain. Electronically signed by: Candelaria Trevino MD 05/13/25 01:15 AM
--- NOTE | 2025-05-13 16:00 | Neurology Consultation ---
Date of Consultation May 13, 2025 Assessment & Plan (1) Acute ischemic stroke: Recommend continue to treat cephalgia Recommend continued stroke work up to include the following: Echocardiogram as part of complete stroke workup Continue frequent neurological assessments Obtain stat CT brain without contrast for any acute neurological decline Continue to monitor/control blood pressure & blood glucose Continue to monitor telemetry closely Recommend ZioPatch at DC if no evidence of arrhythmia during inpatient monitoring Continue to monitor renal and hepatic function, keep euvolemic Metabolic workup should include hgbA1c, fasting lipids Recommend DAPT for at least 3 weeks Recommend high dose statin therapy indefinitely if tolerated Ok from neurology perspective for VTE prophylaxis PT/OT/SLT to eval and treat Recommend provide continuous positive airway pressure mask at times of sleep Telehealth Consultation Telehealth Information Telehealth Information: I performed this visit using a real-time telehealth connection between my location and the patients location ([facility]). After connecting through interactive tele-video, patient was identified by name and date of and/or wristband check.Patient (or authorized healthcare senior patient account representative) was informed that this was a telemedicine visit and it was being conducted confidentially over secure lines. My office door was closed and no one else was present in the room with me.Patient (or authorized healthcare senior patient account representative) provided consent to proceed with the visit, expressed an understanding of privacy and security of the telemedicine visit, and gave permission to have a hospital senior patient account representative in the room in order to assist with the visit and to conduct portions of the visit, as needed. I informed the pa tient (or authorized healthcare senior patient account representative) that I reviewed their record and presented the opportunity for them to ask any questions regarding the visit today. The patient agreed to participate. History of Present Illness Reason for Consultation: Stroke Requesting Physician: Dr. Cabrera Attending Physician: Rachid Cabrera, History of Present Illness 60yo right handed female with significant past medical history including DARLING for which she reports not ever getting a CPAP, migraine, PFO. HF. HTN. morbid obesity post gastric surgery on Ozempic as well as hyperlipidemia reported presented with stroke like symptoms including right sided headache and right hemiparesthesia. She underwent stroke imaging including MRI brain on 05/08 personally reviewed without overt evidence of acute ischemic stroke; noting meningioma. She received multiple days if IV medication treatment for reported 07/20 right sided headache. She has undergone repeat brain MRI with MRV fortun ately revealing no evidence of CVST but unfortunately revealing evidence of small right hemispheric punctate area of acute ischemic stroke- likely incidental as she reports continued RUE weakness and paresthesia. I have performed televideo consultation. She is alert & oriented; able to answer all questions appropriately, name objects on televideo monitor, repeat phrases and perform complex/embedded commands without deficit. Neurological exam is non lateralizing/nonfocal in terms of motor strength and coordination. She continues to report 07/20 headache, does not appear in any distress. Allergies Allergy/AdvReac Type Severity Reaction Status Date / Time oxycodone Allergy Intermediate ITCHY HIVES Verified 02/02/25 23:27 piperacillin Allergy Intermediate Pruritus Verified 02/02/25 23:27 tazobactam Allergy Intermediate Pruritus Verified 02/02/25 23:27 vancomycin AdvReac Severe deathly ill Verified 02/02/25 23:27 Home Medications Medication Instructions Recorded Confirmed Type aspirin 81 mg tablet,delayed 81 mg PO QAM 02/02/24 05/08/25 History release atorvastatin 40 mg tablet 40 mg PO HS 02/02/24 05/08/25 History cholecalciferol (vitamin D3) 50 50 mcg PO QAM 02/02/24 05/08/25 History mcg (2,000 unit) tablet (Vitamin D3) dicyclomine 10 mg capsule 10 mg PO QAM 02/02/24 05/08/25 History duloxetine 60 mg capsule,delayed 60 mg PO QAM 02/02/24 05/08/25 History release galcanezumab-gnlm 120 mg/mL 120 mg subcut MONTHLY 02/02/24 05/08/25 History subcutaneous pen injector (Emgality Pen) levothyroxine 25 mcg tablet 25 mcg PO DAILYBB 02/02/24 05/08/25 History magnesium oxide 400 mg PO QAM 02/02/24 05/08/25 History pantoprazole 40 mg tablet,delayed 40 mg PO BID 02/02/24 05/08/25 History release propranolol 60 mg capsule,24 60 mg PO QAM 02/02/24 05/08/25 History hr,extended release montelukast 10 mg tablet 10 mg PO QAM 03/31/24 05/08/25 History (Singulair) acetaminophen 325 mg tablet 650 mg PO Q4H PRN PAIN/FEVER>100.5F 02/02/25 05/08/25 History (Tylenol) albuterol sulfate 90 mcg/actuation 2 puff inhalation Q4H PRN Cough 02/02/25 05/08/25 History aerosol inhaler calcium 325 mg-vit D3 12.5 1 tab PO DAILY 02/02/25 05/08/25 History mcg-zinc 2.75 [id number] tablet (Citracal-D3 Maximum Plus) cyanocobalamin (vitamin B-12) 1,000 mcg IM .Q12WKS 02/02/25 05/08/25 History 1,000 mcg/mL injection solution divalproex 250 mg tablet,extended 125 mg PO HS 02/02/25 05/08/25 History release 24 hr (Depakote ER) ferrous sulfate 325 mg (65 mg 325 mg PO DAILY 02/02/25 05/08/25 History iron) tablet folic acid 1 mg tablet 1 mg PO DAILY 02/02/25 05/08/25 History ipratropium 0.5 mg-albuterol 3 mg 3 ml inhalation QID PRN sob 02/02/25 05/08/25 History (2.5 mg base)/3 mL nebulization soln methotrexate sodium 25 mg/mL 20 mg subcut WK 02/02/25 05/08/25 History injection solution multivitamin 1 tab PO DAILY 02/02/25 05/08/25 History semaglutide 1 mg/dose (4 mg/3 mL) 1 mg subcut WK 02/02/25 05/08/25 History subcutaneous pen injector (Ozempic) sumatriptan succinate 50 mg tablet 50 mg PO DIRECTED PRN Migraine 02/02/25 05/08/25 History (Imitrex) Headache trazodone 100 mg tablet 300 mg PO HS 02/03/25 05/08/25 History buspirone 7.5 mg tablet 7.5 mg PO TID #90 tabs 02/07/25 05/08/25 Rx famotidine 20 mg tablet 20 mg PO BID acid reflux 05/08/25 05/08/25 History promethazine 25 mg tablet 25 mg PO DAILY PRN Nausea 05/08/25 05/08/25 History Patient History Medical History PFO (patent foramen ovale) History of pneumonia (12/2023) treated while inpatient Hx of Clostridium difficile infection (2020) Psoriatic arthritis Hx of deep venous thrombosis per hx, pt. denies Hx pulmonary embolism (2015) during time pt. was an inpatient, was started on Coumadin x 6 months, no problems since this time History of anemia Depression with anxiety GERD (gastroesophageal reflux disease) Hx of migraines 1 x per week DM II (diabetes mellitus, type II), controlled oxempic Hypothyroidism History of Harmony-Cox virus infection (12/21/23) treated with abx, inpt at [facility], all symptoms resolved Sleep apnea no cpap, no testing yest History of postoperative nausea and vomiting History of gastric ulcer Surgical History History of esophagogastroduodenoscopy (EGD) Hx of colonoscopy Hx of cardiac catheterization (2019) [facility], no mi, no stents, follows with cassie (03/2024) Hx of gastric bypass (2009) History of carpal tunnel release of both wrists (1990) S/P total hysterectomy Hx of tonsillectomy S/P cholecystectomy History of bilateral knee replacement S/P appendectomy Family History Mother Rheumatoid arthritis Father Cancer blood cancer Denies family history of Hypertension Social History Smoking Status: Never smoker Second Hand Exposure: No; Do You Dip or Chew Tobacco: No; Hx Alcohol Use: No Hx Substance Use: No Preferred Language: Citizen Of [place] Communication Ability: Effective 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 Oriented to person, place, and time. Fluency naming repetition and comprehension appear grossly intact. Affect remains appropriate. CN testing: I: Deferred II: Reports no changes in visual acuity III/IV/: No evidence of gaze preference, hippus, nystagmus or roving eye movements V: Facial sensation reportedly grossly intact to light touch bilaterally VII: Facial movements appear without evidence of asymmetry VIII: Hearing appears grossly intact to loud voice bilaterally IX/X: Palate is unable to be accurately visualized XI: Shoulder shrug appears symmetric/ grossly intact bilaterally XII: Tongue protrudes midline without evidence of biting Motor exam: Strength appears grossly intact in all extremities Tone: Unable to accurately assess via telemedicine Sensory: Sensation is reportedly grossly intact throughout Coordination: No apparent evidence of dysmetria or dysdiadochokinesia Reflexes: Unable to accurately assess via telemedicine Gait: Deferred Results & Data Vital Signs (Past 12 Hours) Vital Signs Temp Pulse Pulse Resp BP Pulse Ox O2 Del Method 05/13/25 13:54 57 L 05/13/25 11:19 36.4 C L 65 18 105/71 92 Nasal Cannula 05/13/25 10:59 Nasal Cannula 05/13/25 08:06 36.6 C 58 L 18 109/72 91 Nasal Cannula 05/13/25 07:25 52 L O2 Flow Rate 05/13/25 13:54 05/13/25 11:19 2 05/13/25 10:59 2 05/13/25 08:06 2 05/13/25 07:25 Laboratory Results Abnormal lab results 05/12/25 05/12/25 05/13/25 Range/Units 16:52 20:13 05:43 RBC 3.63 L (4.20-5.40) M/uL Hgb 11.1 L (12.0-16.0) g/dl Hct 33.7 L (37.0-47.0) % Hern[place] # (Auto) 0.90 H (0.11-0.59) K/uL BUN/Creatinine Ratio 23.7 H (10-20) POC Glucose 128 H 122 H (70-99) mg/dl Calcium 8.0 L (8.6-10.3) mg/dl 05/13/25 05/13/25 Range/Units 08:04 12:03 RBC (4.20-5.40) M/uL Hgb (12.0-16.0) g/dl Hct (37.0-47.0) % [place] # (Auto) (0.11-0.59) K/uL BUN/Creatinine Ratio (10-20) POC Glucose 106 H 116 H (70-99) mg/dl Calcium (8.6-10.3) mg/dl Diagnostic Findings Head CT 05/12/25 20:21 Exam(s): CT HEAD Without Contrast EXAM: CT Head Without Intravenous Contrast CLINICAL HISTORY: Reason for exam: blurred vision. TECHNIQUE: Axial computed tomography images of the head/brain without intravenous contrast. CTDI is 36.43 mGy and DLP is 625.8 mGy-cm. Automated exposure control was utilized for the study. A dose lowering technique was utilized adhering to the principles of ALARA. COMPARISON: No relevant prior studies available. FINDINGS: Brain: Unremarkable. No hemorrhage. No significant white matter disease. No edema. Ventricles: Unremarkable. No ventriculomegaly. Bones/joints: Unremarkable. No acute fracture. Soft tissues: Unremarkable. Sinuses: Unremarkable as visualized. No acute sinusitis. Mastoid air cells: Unremarkable as visualized. No mastoid effusion. IMPRESSION: No evidence of acute intracranial pathology. Electronically signed by: Candelaria Trevino MD 05/12/25 23:55 PM Brain MRI 05/12/25 20:42 CR Exam(s): MRI HEAD W/WO Contrast IV Amt: 10cc gadavist EXAM: MR Head Without and With Intravenous Contrast CLINICAL HISTORY: Reason for exam: double vision. TECHNIQUE: Magnetic resonance images of the head/brain without and with intravenous contrast in multiple planes. CONTRAST: Patient received 10cc gadavist of IV contrast COMPARISON: No relevant prior studies available. FINDINGS: Brain: There is a tiny acute ischemic injury in the posterior right frontal lobe without evidence of hemorrhagic transformation. There is a remote ischemic injury of the right cerebellum. Mild nonspecific white matter changes. There is a tiny dural based soft tissue lesion along the left anterior falx consistent with a meningioma measuring 9.9 x 8.2 x 8.6 mm. No hemorrhage. The flow voids at the base of the brain are intact. No abnormal enhancement of the brain parenchyma. The dural venous sinuses are patent. Ventricles: Unremarkable. No ventriculomegaly. Bones/joints: Unremarkable. No acute fracture. Sinuses: Unremarkable as visualized. No acute sinusitis. Mastoid air cells: There is a small amount of fluid in the left mastoid air cells. No mastoid effusion. Orbits: Unremarkable as visualized. IMPRESSION: There is a tiny acute ischemic injury in the posterior right frontal lobe without evidence of hemorrhagic transformation. Communications: Verify Receipt Electronically signed by: Candelaria Trevino MD 05/13/25 01:20 AM Head/Brain Mag Res Venography 05/12/25 20:42 Exam(s): MRV HEAD EXAM: MR Head Without Intravenous Contrast CLINICAL HISTORY: Reason for exam: persistent headaches. TECHNIQUE: Magnetic resonance images of the head/brain without intravenous contrast in multiple planes. COMPARISON: Prior CT angiogram of the head from May 08, 2025. FINDINGS: Brain: Unremarkable. No mass. No hemorrhage. No acute infarct. Ventricles: Unremarkable. No ventriculomegaly. Bones/joints: Unremarkable. No acute fracture. Sinuses: Unremarkable as visualized. No acute sinusitis. Mastoid air cells: Unremarkable as visualized. No mastoid effusion. Orbits: Unremarkable as visualized. IMPRESSION: Negative MRV of the brain. Electronically signed by: Candelaria Trevino MD 05/13/25 01:15 AM Medications Administered Home Medications Medication Instructions Recorded Confirmed Last Taken aspirin 81 mg tablet,delayed 81 mg PO QAM 02/02/24 05/08/25 02/02/25 release atorvastatin 40 mg tablet 40 mg PO HS 02/02/24 05/08/25 02/01/25 cholecalciferol (vitamin D3) 50 50 mcg PO QAM 02/02/24 05/08/25 02/02/25 mcg (2,000 unit) tablet (Vitamin D3) dicyclomine 10 mg capsule 10 mg PO QAM 02/02/24 05/08/25 02/02/25 duloxetine 60 mg capsule,delayed 60 mg PO QAM 02/02/24 05/08/25 02/02/25 release galcanezumab-gnlm 120 mg/mL 120 mg subcut MONTHLY 02/02/24 05/08/25 Unknown subcutaneous pen injector (Emgality Pen) levothyroxine 25 mcg tablet 25 mcg PO DAILYBB 02/02/24 05/08/25 02/02/25 magnesium oxide 400 mg PO QAM 02/02/24 05/08/25 02/02/25 pantoprazole 40 mg tablet,delayed 40 mg PO BID 02/02/24 05/08/25 02/02/25 08:00 release propranolol 60 mg capsule,24 60 mg PO QAM 02/02/24 05/08/25 02/02/25 hr,extended release montelukast 10 mg tablet 10 mg PO QAM 03/31/24 05/08/25 02/02/25 (Singulair) acetaminophen 325 mg tablet 650 mg PO Q4H PRN PAIN/FEVER>100.5F 02/02/25 05/08/25 Unknown (Tylenol) albuterol sulfate 90 mcg/actuation 2 puff inhalation Q4H PRN Cough 02/02/25 05/08/25 Unknown aerosol inhaler calcium 325 mg-vit D3 12.5 1 tab PO DAILY 02/02/25 05/08/25 02/02/25 mcg-zinc 2.75 [id number] tablet (Citracal-D3 Maximum Plus) cyanocobalamin (vitamin B-12) 1,000 mcg IM .Q12WKS 02/02/25 05/08/25 Unknown 1,000 mcg/mL injection solution divalproex 250 mg tablet,extended 125 mg PO HS 02/02/25 05/08/25 02/01/25 release 24 hr (Depakote ER) ferrous sulfate 325 mg (65 mg 325 mg PO DAILY 02/02/25 05/08/25 02/02/25 iron) tablet folic acid 1 mg tablet 1 mg PO DAILY 02/02/25 05/08/25 02/02/25 ipratropium 0.5 mg-albuterol 3 mg 3 ml inhalation QID PRN sob 02/02/25 05/08/25 Unknown (2.5 mg base)/3 mL nebulization soln methotrexate sodium 25 mg/mL 20 mg subcut WK 02/02/25 05/08/25 01/26/25 injection solution multivitamin 1 tab PO DAILY 02/02/25 05/08/25 02/02/25 semaglutide 1 mg/dose (4 mg/3 mL) 1 mg subcut WK 02/02/25 05/08/25 05/07/25 subcutaneous pen injector (Ozempic) sumatriptan succinate 50 mg tablet 50 mg PO DIRECTED PRN Migraine 02/02/25 05/08/25 Unknown (Imitrex) Headache trazodone 100 mg tablet 300 mg PO HS 02/03/25 05/08/25 Unknown buspirone 7.5 mg tablet 7.5 mg PO TID #90 tabs 02/07/25 05/08/25 Unknown famotidine 20 mg tablet 20 mg PO BID acid reflux 05/08/25 05/08/25 Unknown promethazine 25 mg tablet 25 mg PO DAILY PRN Nausea 05/08/25 05/08/25 Unknown Active Medications Generic Name Dose Route Start Last Admin Trade Name Landonq PRN Reason Stop Dose Admin Aspirin 81 mg 05/09/25 09:00 05/13/25 08:17 Aspirin 81 Mg Ectab PO 06/08/25 08:59 81 mg QAM DRE Administration Atorvastatin Calcium 40 mg 05/08/25 21:00 05/12/25 20:27 Atorvastatin 40 Mg Tab PO 06/07/25 20:59 40 mg HS DRE Administration Buspirone HCl 7.5 mg 05/08/25 21:00 05/13/25 13:06 Buspirone 7.5 Mg Tab PO 06/07/25 20:59 7.5 mg TID DRE Administration Clopidogrel Bisulfate 75 mg 05/13/25 09:00 05/13/25 08:17 Clopidogrel Bisulfate 75 Mg Tab PO 06/12/25 08:59 75 mg QAM DRE Administration Dicyclomine HCl 10 mg 05/09/25 09:00 05/13/25 08:16 Dicyclomine Hcl 10 Mg Cap PO 06/08/25 08:59 10 mg QAM DRE Administration Duloxetine HCl 60 mg 05/09/25 09:00 05/13/25 11:35 Duloxetine Hcl 60 Mg Cap PO 06/08/25 08:59 60 mg QAM DRE Administration Folic Acid 1 mg 05/09/25 09:00 05/13/25 08:17 Folic Acid 1 Mg Tab PO 06/08/25 08:59 1 mg DAILY DRE Administration Gabapentin 300 mg 05/10/25 14:00 05/13/25 13:06 Gabapentin 300 Mg Cap PO 06/09/25 13:59 300 mg TID DRE Administration Promethazine HCl 12.5 mg in 50.5 mls @ 202 mls/hr 05/08/25 21:06 05/12/25 12:38 Phenergan IV 06/07/25 21:05 Infused Q6H PRN Infusion Nausea And Vomiting Insulin Aspart 0 units 05/08/25 16:30 05/13/25 13:08 Insulin Aspart Per Unit Charge SC 06/07/25 16:29 3 units ACHS DRE Administration Levothyroxine Sodium 25 mcg 05/09/25 06:30 05/13/25 05:45 Levothyroxine Sodium 25 Mcg Tablet PO 06/08/25 06:29 25 mcg DAILYBB DRE Administration Magnesium Oxide 400 mg 05/09/25 09:00 05/13/25 08:16 Magnesium Oxide 400 Mg Tab PO 06/08/25 08:59 400 mg QAM DRE Administration Metoclopramide HCl 10 mg 05/09/25 14:30 05/12/25 20:18 Metoclopramide Hcl Inj 5 Mg/Ml 2 Ml Vial IV 06/08/25 14:29 10 mg Q6H PRN Administration Nausea Morphine Sulfate 2 mg 05/09/25 14:59 05/13/25 08:22 Morphine Sulfate 2 Mg/Ml Carp IV 05/23/25 14:58 2 mg Q6 PRN Administration Migraine Headache Ondansetron HCl 4 mg 05/09/25 14:31 05/12/25 18:08 Ondansetron Inj 2 Mg/Ml 2 Ml Vial IV 06/08/25 14:30 4 mg Q6H PRN Administration Nausea And Vomiting Pantoprazole Sodium 40 mg 05/08/25 21:00 05/13/25 08:17 Pantoprazole 40 Mg Tab PO 06/07/25 20:59 40 mg BID DRE Administration Polyethylene Glycol 17 gm 05/08/25 15:12 05/12/25 08:56 Polyethylene (Miralax) 17 Gm Pack PO 06/07/25 15:11 17 gm DAILY PRN Administration Constipation Propranolol HCl 60 mg 05/09/25 09:00 05/13/25 08:16 Propranolol Hcl 60 Mg La Cap PO 06/08/25 08:59 60 mg QAM DRE Administration Trazodone HCl 300 mg 05/08/25 21:00 05/13/25 01:55 Trazodone Hcl 100 Mg Tab PO 06/07/25 20:59 300 mg HS DRE Administration Vitamin D 50 mcg 05/09/25 09:00 05/13/25 08:17 Cholecalciferol 25 Mcg (1000 Units) Tab PO 06/08/25 08:59 50 mcg QAM DRE Administration
[2025-05-13] MEDS: ENOXAPARIN INJ 40 MG/0.4 ML SYR SQ SCH (17:49)
[2025-05-13] MEDS: DIVALPROEX DELAY RELEASE 125 MG TABEC PO SCH (19:51)
--- NOTE | 2025-05-13 23:10 | Ultrasound Report ---
Exam(s): US VENOUS BILATERAL LOWER EXTREMITIES EXAM: US Duplex Bilateral Lower Extremities Veins CLINICAL HISTORY: Reason for exam: stroke, hx PFO. TECHNIQUE: Real-time duplex ultrasound scan of the bilateral lower extremity veins integrating B-mode two-dimensional vascular structure, Doppler spectral analysis, color flow Doppler imaging and compression. COMPARISON: No relevant prior studies available. FINDINGS: Right deep veins: Unremarkable. No DVT in the right common femoral, femoral, proximal deep femoral or popliteal veins. The veins demonstrate normal color flow, are normally compressible, with normal phasic flow and/or augmentation response. Right superficial veins: Unremarkable. No thrombus in the visualized right great saphenous vein. Left deep veins: Unremarkable. No DVT in the left common femoral, femoral, proximal deep femoral or popliteal veins. The veins demonstrate normal color flow, are normally compressible, with normal phasic flow and/or augmentation response. Left superficial veins: Unremarkable. No thrombus in the visualized left great saphenous vein. Soft tissues: Extensive diffuse soft tissue edema bilaterally. No popliteal cyst. IMPRESSION: No evidence of DVT in the lower extremities. Electronically signed by: Bryon Rivas MD 05/13/25 23:10 PM
[2025-05-14 06:04] LABS: Hematocrit (blood only) 35.7 % (37.0-47.0); Hemoglobin 12.0 g/dl (12.0-16.0); Immature Granulocytes # (auto) 0.02 K/uL (0.01-0.20); Immature Granulocytes % (auto) 0.2 %; Mean Corpuscular Hemoglobin 30.8 pg (25.0-34.0); Mean Corpuscular Volume 91.8 fL (80.0-100.0); Platelet Count 219 K/uL (130-400); RDW Standard Deviation 44.4 fL (36.4-46.3); Red Blood Count 3.89 M/uL (4.20-5.40); White Blood Count 8.23 K/ul (4.8-10.8)
[2025-05-14 06:22] LABS: Anion Gap 3.0 (3-11); Blood Urea Nitrogen 22.0 mg/dl (6-23); Calcium 8.5 mg/dl (8.6-10.3); Carbon Dioxide 33.0 mmol/L (21-32); Chloride 102.0 mmol/L (98-107); Creatinine Clr Calc Pharmacy 67.0 ml/min; Glucose 87.0 mg/dl (70-99(Fasting)); Potassium 5.0 mmol/L (3.5-5.1); Sodium 138.0 mmol/L (136-145)
--- NOTE | 2025-05-14 10:54 | Cardiology Consultation ---
Date of Consultation May 14, 2025 Assessment & Plan (1) Acute ischemic stroke: (2) PFO (patent foramen ovale): (3) Anti-cardiolipin antibody positive: Plan 60-year-old female admitted with headache and strokelike symptoms. MRI demonstrating tiny acute ischemic injury in the posterior right frontal lobe without evidence of hemorrhagic transformation. No evidence of carotid stenosis or cerebrovascular stenosis per CTA. Dual antiplatelet therapy ordered by neurology. No evidence of atrial fibrillation on telemetry or prior ZIO monitor. She is scheduled for PFO closure 06/05/2025. Discussed with interventionalist. She will proceed with PFO closure as scheduled at [facility]. History of anticardiolipin antibody previously evaluated by hematology with recommendations for single antiplatelet therapy. Recommend follow-up with hematology, with evidence of new CVA, to discuss treatment options. Outpatient 14-day ZIO monitor. Continue atorvastatin and beta-billie as ordered. Recommend one-time dose of oral furosemide 20 mg. Assess renal function elec trolytes in AM. Mckinley Varghese DO, [facility] History of Present Illness Reason for Consultation: Stroke, history of PFO Requesting Physician: Nuha GONZALEZ Attending Physician: Rachid Cabrera DO History of Present Illness 60-year-old female presents with strokelike symptoms. Reported unilateral, right-sided headache on the evening prior to admission. Other symptoms include right-sided paresthesias involving the upper and lower extremity as well as blurry vision involving her right eye. 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 Known cardiolipin IgM antibody positive evaluated by hematology. Anticoagulation was not recommended at that time. She is scheduled for PFO closure at [facility] 06/05/2025. Patient reports ongoing headache for approximately 7 days. Repeat MRI of the brain performed earlier today with results pending at this time. Denies chest pain or unusual shortness of breath. Utilizing 2 to 3 L of supplemental oxygen which is her baseline. Denies orthopnea or PND. Mild, chronic bilateral pedal edema stable. Reports previous treatment with chronic diuretic therapy, however, discontinued. Telemetry reveals sinus rhythm in the 50s and 60s. Repeat echocardiogram demonstrates preserved LV systolic function. Mild aortic valve sclerosis without stenosis. PFO documented on transesophageal echocardiogram 04/01/2024. No evidence of intracardiac thrombus on that study. Allergies Allergy/AdvReac Type Severity Reaction Status Date / Time oxycodone Allergy Intermediate ITCHY HIVES Verified 02/02/25 23:27 piperacillin Allergy Intermediate Pruritus Verified 02/02/25 23:27 tazobactam Allergy Intermediate Pruritus Verified 02/02/25 23:27 vancomycin AdvReac Severe deathly ill Verified 02/02/25 23:27 Home Medications Medication Instructions Recorded Confirmed Type aspirin 81 mg tablet,delayed 81 mg PO QAM 02/02/24 05/08/25 History release atorvastatin 40 mg tablet 40 mg PO HS 02/02/24 05/08/25 History cholecalciferol (vitamin D3) 50 50 mcg PO QAM 02/02/24 05/08/25 History mcg (2,000 unit) tablet (Vitamin D3) dicyclomine 10 mg capsule 10 mg PO QAM 02/02/24 05/08/25 History duloxetine 60 mg capsule,delayed 60 mg PO QAM 02/02/24 05/08/25 History release galcanezumab-gnlm 120 mg/mL 120 mg subcut MONTHLY 02/02/24 05/08/25 History subcutaneous pen injector (Emgality Pen) levothyroxine 25 mcg tablet 25 mcg PO DAILYBB 02/02/24 05/08/25 History magnesium oxide 400 mg PO QAM 02/02/24 05/08/25 History pantoprazole 40 mg tablet,delayed 40 mg PO BID 02/02/24 05/08/25 History release propranolol 60 mg capsule,24 60 mg PO QAM 02/02/24 05/08/25 History hr,extended release montelukast 10 mg tablet 10 mg PO QAM 03/31/24 05/08/25 History (Singulair) acetaminophen 325 mg tablet 650 mg PO Q4H PRN PAIN/FEVER>100.5F 02/02/25 05/08/25 History (Tylenol) albuterol sulfate 90 mcg/actuation 2 puff inhalation Q4H PRN Cough 02/02/25 05/08/25 History aerosol inhaler calcium 325 mg-vit D3 12.5 1 tab PO DAILY 02/02/25 05/08/25 History mcg-zinc 2.75 ha-sldqyf-fojagqook tablet (Citracal-D3 Maximum Plus) cyanocobalamin (vitamin B-12) 1,000 mcg IM .Q12WKS 02/02/25 05/08/25 History 1,000 mcg/mL injection solution divalproex 250 mg tablet,extended 125 mg PO HS 02/02/25 05/08/25 History release 24 hr (Depakote ER) ferrous sulfate 325 mg (65 mg 325 mg PO DAILY 02/02/25 05/08/25 History iron) tablet folic acid 1 mg tablet 1 mg PO DAILY 02/02/25 05/08/25 History ipratropium 0.5 mg-albuterol 3 mg 3 ml inhalation QID PRN sob 02/02/25 05/08/25 History (2.5 mg base)/3 mL nebulization soln methotrexate sodium 25 mg/mL 20 mg subcut WK 02/02/25 05/08/25 History injection solution multivitamin 1 tab PO DAILY 02/02/25 05/08/25 History semaglutide 1 mg/dose (4 mg/3 mL) 1 mg subcut WK 02/02/25 05/08/25 History subcutaneous pen injector (Ozempic) sumatriptan succinate 50 mg tablet 50 mg PO DIRECTED PRN Migraine 02/02/25 05/08/25 History (Imitrex) Headache trazodone 100 mg tablet 300 mg PO HS 02/03/25 05/08/25 History buspirone 7.5 mg tablet 7.5 mg PO TID #90 tabs 02/07/25 05/08/25 Rx famotidine 20 mg tablet 20 mg PO BID acid reflux 05/08/25 05/08/25 History promethazine 25 mg tablet 25 mg PO DAILY PRN Nausea 05/08/25 05/08/25 History Patient History Medical History History of pneumonia (12/2023) treated while inpatient Hx of Clostridium difficile infection (2020) Psoriatic arthritis Hx of deep venous thrombosis per hx, pt. denies Hx pulmonary embolism (2015) during time pt. was an inpatient, was started on Coumadin x 6 months, no problems since this time History of anemia Depression with anxiety GERD (gastroesophageal reflux disease) Hx of migraines 1 x per week DM II (diabetes mellitus, type II), controlled oxempic Hypothyroidism History of Harmony-Cox virus infection (12/21/23) treated with abx, inpt at [facility], all symptoms resolved Sleep apnea no cpap, no testing yest History of postoperative nausea and vomiting History of gastric ulcer Surgical History History of esophagogastroduodenoscopy (EGD) Hx of colonoscopy Hx of cardiac catheterization (2019) [facility], no mi, no stents, follows with cassie (03/2024) Hx of gastric bypass (2009) History of carpal tunnel release of both wrists (1990) S/P total hysterectomy Hx of tonsillectomy S/P cholecystectomy History of bilateral knee replacement S/P appendectomy Family History Mother Rheumatoid arthritis Father Cancer blood cancer Denies family history of Hypertension Social History Smoking Status: Never smoker Second Hand Exposure: No; Do You Dip or Chew Tobacco: No; Hx Alcohol Use: No Hx Substance Use: No Preferred Language: Nigerien Communication Ability: Effective Inventory Specialist Required: No Beliefs That Will Affect Care: None marital status: Current Living Situation: Family Current Living Situation Comment: Lives at daughter's house Other Information That Helps Us Care for You: No Feels Safe at Home: No Is there a partner from a previous relationship who is making you feel unsafe now?: No Any Concerns about Your Family Situation: No Would You Like to Speak to Someone About Your Situation: No Safety Concerns: Feels Safe At This Time Assistive Devices: Walker Review of Systems Review of Systems: All systems reviewed & are unremarkable except as noted in Subjective Physical Exam Constitutional: well developed, well nourished and + obese Respiratory: no respiratory distress, no labored breathing and no retractions Auscultation: no crackles, no rales, no rhonchi and no wheezes Cardiovascular: Rate/Rhythm: regular rate and regular rhythm Heart Sounds: normal S1, normal S2 and + murmur (2/6 ELIU) Vessels: no JVD and no carotid bruit Extremities: + edema (Trace to mild bilateral ankle edema.) Gastrointestinal (Abdomen): Inspection/Auscultation: normal bowel sounds; abdomen not distended Percussion/Palpation: abdomen soft; abdomen nontender, no guarding and abdomen not rigid Neurologic: moves all extremities Results & Data Vital Signs (Past 12 Hours) Vital Signs Temp Pulse Resp BP Pulse Ox O2 Del Method O2 Flow Rate 05/14/25 07:51 36.4 C L 60 19 125/77 91 Nasal Cannula 3 05/13/25 22:58 36.6 C 87 17 120/72 96 Room Air Laboratory Results CBC 05/14/25 Range/Units 05:31 WBC 8.23 (4.8-10.8) K/ul RBC 3.89 L (4.20-5.40) M/uL Hgb 12.0 (12.0-16.0) g/dl Hct 35.7 L (37.0-47.0) % Plt Count 219 (130-400) K/uL Neut # (Auto) 4.28 (1.40-6.50) K/uL Lymph # (Auto) 2.87 (1.20-3.40) K/uL [place] # (Auto) 0.72 H (0.11-0.59) K/uL Eos # (Auto) 0.30 (0.00-0.50) K/uL Baso # (Auto) 0.04 (0.00-0.20) K/uL Comprehensive Metabolic Panel 05/14/25 Range/Units 05:31 Sodium 138 (136-145) mmol/L Potassium 5.0 (3.5-5.1) mmol/L Chloride 102 (98-107) mmol/L Carbon Dioxide 33 H (21-32) mmol/L BUN 22 (6-23) mg/dl Creatinine 1.02 (0.6-1.2) mg/dl Glucose 87 (70-99(Fasting)) mg/dl Calcium 8.5 L (8.6-10.3) mg/dl Intake and Output 05/13/25 05/14/25 05/14/25 22:59 06:59 14:59 Intake Total 880 / 2360 Balance 880 / 2360 Intake: Oral 880 / 1360 Other: # Unmeasured Voids 2 1 Weight 100.1 kg Weight Measurement Method Built in [facility] PG Care Time/CCT Total # of Minutes Spent Total Time Spent with Patient: Total time spent is greater than 50% in coordination of care (as documented) at patient's floor/unit and/or counseling patient: Coding Level of Care Code 64278 INT INP/OBS CARE 375MIN Diagnoses Acute ischemic stroke I63.9 PFO (patent foramen ovale) Q21.12 Anti-cardiolipin antibody positive R76.0
--- NOTE | 2025-05-14 14:02 | Oncology Consultation ---
Date of Consultation May 14, 2025 Assessment & Plan (1) PFO (patent foramen ovale): (2) Acute ischemic stroke: (3) (HFpEF) heart failure with preserved ejection fraction: Plan -Unfortunately, do not have results to confirm if she has a real positive cardiolipin IgM antibody. Also unsure if she had confirmatory testing done 12 weeks after initial positive result.Given patient's previous history of DVT/PE, she could have antiphospholipid syndrome. However would need another positive antiphospholipid antibody to confirm this. -At this time since she has a higher chance of hemorrhagic conversion in the setting of acute ischemic CVA would recommend holding off on therapeutic anticoagulation. Recommend obtaining antiphospholipid antibody testing today and outpatient follow-up with her flue lining dipper to discuss results as well as whether or not she would need therapeutic anticoagulation. Thank you for this consult. Please feel free to call if you have any further questions. History of Present Illness Reason for Consultation: hx IgM cardiolipin antibody, PFO, CVA Attending Physician: Rachid Cabrera, History of Present Illness 60-year-old female with medical history significant for PFO, remote history of DVT/PE previously on anticoagulation, type 2 diabetes mellitus who was admitted with neurologic symptoms concerning for TIA/CVA. CT head was negative for acute intracranial pathology. Brain MRI on 05/12/2025 revealed tiny acute ischemic injury in the right posterior right frontal lobe without evidence of hemorrhagic transformation. Bilateral lower extremity ultrasound was negative for DVT. 2D echocardiogram on 05/13/2025 showed mild left atrial dilation, EF 55 to 60% and grade 1 diastolic dysfunction. Per notes, patient is scheduled for closure of PFO later this month. Unfortunately, patient was not in her room at time of today's visit. Hematology was consulted to discuss anticoagulation recommendations in setting of CVA. Per notes, she had previously been evaluated by hematology who obtained testing which was positive for IgM cardiolipin antibody and baby aspirin was recommended. Allergies Allergy/AdvReac Type Severity Reaction Status Date / Time oxycodone Allergy Intermediate ITCHY HIVES Verified 02/02/25 23:27 piperacillin Allergy Intermediate Pruritus Verified 02/02/25 23:27 tazobactam Allergy Intermediate Pruritus Verified 02/02/25 23:27 vancomycin AdvReac Severe deathly ill Verified 02/02/25 23:27 Home Medications Medication Instructions Recorded Confirmed Type aspirin 81 mg tablet,delayed 81 mg PO QAM 02/02/24 05/08/25 History release atorvastatin 40 mg tablet 40 mg PO HS 02/02/24 05/08/25 History cholecalciferol (vitamin D3) 50 50 mcg PO QAM 02/02/24 05/08/25 History mcg (2,000 unit) tablet (Vitamin D3) dicyclomine 10 mg capsule 10 mg PO QAM 02/02/24 05/08/25 History duloxetine 60 mg capsule,delayed 60 mg PO QAM 02/02/24 05/08/25 History release galcanezumab-gnlm 120 mg/mL 120 mg subcut MONTHLY 02/02/24 05/08/25 History subcutaneous pen injector (Emgality Pen) levothyroxine 25 mcg tablet 25 mcg PO DAILYBB 02/02/24 05/08/25 History magnesium oxide 400 mg PO QAM 02/02/24 05/08/25 History pantoprazole 40 mg tablet,delayed 40 mg PO BID 02/02/24 05/08/25 History release propranolol 60 mg capsule,24 60 mg PO QAM 02/02/24 05/08/25 History hr,extended release montelukast 10 mg tablet 10 mg PO QAM 03/31/24 05/08/25 History (Singulair) acetaminophen 325 mg tablet 650 mg PO Q4H PRN PAIN/FEVER>100.5F 02/02/25 05/08/25 History (Tylenol) albuterol sulfate 90 mcg/actuation 2 puff inhalation Q4H PRN Cough 02/02/25 05/08/25 History aerosol inhaler calcium 325 mg-vit D3 12.5 1 tab PO DAILY 02/02/25 05/08/25 History mcg-zinc 2.75 nz-gtzlvd-fygijsyij tablet (Citracal-D3 Maximum Plus) cyanocobalamin (vitamin B-12) 1,000 mcg IM .Q12WKS 02/02/25 05/08/25 History 1,000 mcg/mL injection solution divalproex 250 mg tablet,extended 125 mg PO HS 02/02/25 05/08/25 History release 24 hr (Depakote ER) ferrous sulfate 325 mg (65 mg 325 mg PO DAILY 02/02/25 05/08/25 History iron) tablet folic acid 1 mg tablet 1 mg PO DAILY 02/02/25 05/08/25 History ipratropium 0.5 mg-albuterol 3 mg 3 ml inhalation QID PRN sob 02/02/25 05/08/25 History (2.5 mg base)/3 mL nebulization soln methotrexate sodium 25 mg/mL 20 mg subcut WK 02/02/25 05/08/25 History injection solution multivitamin 1 tab PO DAILY 02/02/25 05/08/25 History semaglutide 1 mg/dose (4 mg/3 mL) 1 mg subcut WK 02/02/25 05/08/25 History subcutaneous pen injector (Ozempic) sumatriptan succinate 50 mg tablet 50 mg PO DIRECTED PRN Migraine 02/02/25 05/08/25 History (Imitrex) Headache trazodone 100 mg tablet 300 mg PO HS 02/03/25 05/08/25 History buspirone 7.5 mg tablet 7.5 mg PO TID #90 tabs 02/07/25 05/08/25 Rx famotidine 20 mg tablet 20 mg PO BID acid reflux 05/08/25 05/08/25 History promethazine 25 mg tablet 25 mg PO DAILY PRN Nausea 05/08/25 05/08/25 History Patient History Medical History History of pneumonia (12/2023) treated while inpatient Hx of Clostridium difficile infection (2020) Psoriatic arthritis Hx of deep venous thrombosis per hx, pt. denies Hx pulmonary embolism (2015) during time pt. was an inpatient, was started on Coumadin x 6 months, no problems since this time History of anemia Depression with anxiety GERD (gastroesophageal reflux disease) Hx of migraines 1 x per week DM II (diabetes mellitus, type II), controlled oxempic Hypothyroidism History of Harmony-Cox virus infection (12/21/23) treated with abx, inpt at [facility], all symptoms resolved Sleep apnea no cpap, no testing yest History of postoperative nausea and vomiting History of gastric ulcer Surgical History History of esophagogastroduodenoscopy (EGD) Hx of colonoscopy Hx of cardiac catheterization (2019) [facility], no mi, no stents, follows with cassie (03/2024) Hx of gastric bypass (2009) History of carpal tunnel release of both wrists (1990) S/P total hysterectomy Hx of tonsillectomy S/P cholecystectomy History of bilateral knee replacement S/P appendectomy Family History Mother Rheumatoid arthritis Father Cancer blood cancer Denies family history of Hypertension Social History Smoking Status: Never smoker Second Hand Exposure: No; Do You Dip or Chew Tobacco: No; Hx Alcohol Use: No Hx Substance Use: No Preferred Language: Ecuadorean Communication Ability: Effective Glost Tile Sorter Required: No Beliefs That Will Affect Care: None marital status: Current Living Situation: Family Current Living Situation Comment: Lives at daughter's house Other Information That Helps Us Care for You: No Feels Safe at Home: No Is there a partner from a previous relationship who is making you feel unsafe now?: No Any Concerns about Your Family Situation: No Would You Like to Speak to Someone About Your Situation: No Safety Concerns: Feels Safe At This Time Assistive Devices: Walker Results & Data Vital Signs (Past 12 Hours) Vital Signs Temp Pulse Resp BP Pulse Ox O2 Del Method O2 Flow Rate 05/14/25 11:05 36.3 C L 61 19 126/79 94 Nasal Cannula 3 05/14/25 07:51 36.4 C L 60 19 125/77 91 Nasal Cannula 3
--- NOTE | 2025-05-14 14:24 | Magnetic Resonance Report ---
MRI OF THE BRAIN WITHOUT IV CONTRAST CLINICAL HISTORY: Worsening dizziness and double vision. COMPARISON STUDY: 05/12/2025 TECHNIQUE: MRI of the brain was performed utilizing various T1 and T2-weighted sequences in the axial , sagittal, and coronal planes. IV contrast was not administered for this examination. FINDINGS: There is a persistent 3 mm focus of restricted water diffusion within the right posterior frontal lob e. This is consistent with a tiny subacute infarct. No new areas of infarction are visualized. The ventricular system has a normal size and configuration. There is no midline shift. There is a persistent 6 mm focus of increased T2 signal within the right cerebellar hemisphere consis tent with remote insult. Gradient echo images reveal no evidence of hemorrhage. There is an 8 mm dural based opacity within the left anterior frontal region, likely representing a m eningioma. This has been described on prior studies. IMPRESSION: 1. No significant change from the preceding study 2. Persistent 3 mm focus of restricted water diffusion within the right posterior frontal lobe likely representing a tiny subacute infarct 3. Stable 8 mm extra-axial left frontal anterior parafalcine lesion likely representing a meningioma ACT 112: Negative or not required by law. Electronically signed by: Amish Orantes M.D. 05/14/2025 2:22 PM
[2025-05-14] MEDS: FUROSEMIDE 20 MG TAB PO ONE (14:44)
--- NOTE | 2025-05-14 14:59 | Hospitalist Progress Note ---
<Statement entered by Rachid Cabrera DO - 05/14/25 15:44> Patient seen and examined No focal deficits on exam. muscle strength 5/5 in all extremities No cranial nerve deficits Repeat MRI without any new infarcts Appreciate neuro, cardio and hematology input I spent a total of 30 minutes coordinating, documenting, and providing care for this patient excluding time spent in the performance of separately billed services. This included personally reviewing all current laboratories and imaging studies, medical reconciliation, outpatient chart review and discussion with specialists Date of Service May 14, 2025 Assessment & Plan (1) Migraine: (2) DM II (diabetes mellitus, type II), controlled: (3) (HFpEF) heart failure with preserved ejection fraction: (4) Dyslipidemia: (5) Nocturnal hypoxia: (6) GERD (gastroesophageal reflux disease): (7) Depression: (8) Hypothyroidism: (9) PFO (patent foramen ovale): (10) History of pulmonary embolism: (11) History of gastric bypass: Plan 60 year old female with PMH significant for type 2 diabetes, hypothyroidism, hyperlipidemia, asthma, heart failure, GERD, psoriatic arthropathy, left hemiplegia, iron deficiency anemia, depression and anxiety, history of gastric bypass (2008), history of PE, history of C diff, and chronic migraines who presented to the ED on 05/08/2025 with unilateral headache and associated paresthesia and blurry vision that she felt is different than typical migraine and was admitted for rule out stroke. Worsening of Chronic migraine Typical migraine is right sided and associated with blurry vision, photophobia, right arm/leg weakness/numbness, N/V Follows with Pam Everett PA-C of [facility] last seen in March 2025 Prior medications include amitriptyline, topamax, Ajovy, trigger point injections Started on Emgality in September 2024 which improved migraines significantly Started depakote taper in March where she went from 750mg HS to 125mg HS Planned to stop magnesium and propranolol after completion of depakote taper Patient reports this is the worst migraine she has ever experienced, possibly due to tapering of depakote outpatient Stroke work up completed with negative CT head, CTA head and neck, MRI brain Neurology consulted and recommend: Depakote 500mg IV x1 Continue magnesium and propanolol Can give Emgality --> non-formulary. Our pharm reported they cannot order it. Patient does not get med delivered to her home until 05/13 - still awaiting for med to arrive today s/p tapering dose of prednisone (completed 05/13) s/p increased depakote to 500mg BID while on steroids -> resume home dose of 125mg HS today Sleep, rest, IV hydration Gabapentin 300mg was added and increased to TID On low dose morphine PRN Will d/c PRN sumatriptan given tiny acute stroke noted on MRI Acute CVA Hx PFO 05/12 - developed worsening double vision Head CT/MRV/MRI obtained overnight. MRI showing tiny acute ischemic injury in the posterior right frontal lobe. On ASA and statin, Plavix added Neck CTA on 05/08 unremarkable Echo: EF 55-60%, grade I diastolic dysfunction Telemetry reviewed, no afib noted or reported History of TIA December 2023 and found to have PFO and is to undergo closure on . Was evaluated by hematology as o/p for weakly positive IgM cardiolipin antibody which not felt to be significant and ASA was recommended. Also remote hx of PE in 2015 s/p 6 months of anticoagulation. Venous doppler negative Re-consult neuro - recommends DAPT and statin, follow up for PFO closure Cardio consult - recommends hematology eval given history and 14 day [facility] Hematology recommends antiphospholipid antibody testing and outpatient follow up with fabric pattern grader, no anticoagulation given risk of hemorrhagic conversion Repeat brain MRI obtained today due to ambulatory issues - negative for new/worsening infarct Type 2 diabetes On Ozempic at home A1C 5.8% BSG ACHS and SSI while inpatient HFpEF Patient appears euvolemic Lasix 20mg PO x 1 today per cardio Monitor I&Os Dyslipidemia Continue statin GERD Continue pantoprazole, pepcid, and carafate Depression Continue duloxetine, buspirone, and trazodone Hypothyroidism Continue levothyroxine Nocturnal hypoxia Per nocturnal oximetry in January 2025 Prescribed 2-3L O2 at night however patient states she uses 2L continuous History of PE s/p anti-coagulation x6 months History of gastric bypass [facility] Continue vitamin supplementation DVT PROPHYLAXIS SCDs Dispo: needs rehab, CM following I spent a total of 60 minutes coordinating, documenting, and providing care for this patient excluding time spent in the performance of separately billed services. This included personally reviewing all current laboratories and imaging studies, medication reconciliation, outpatient chart review, and discussion with specialists. Admission and Anticipated Discharge Date Admission Date: May 09, 2025 Subjective Follow up for intractable migraine, acute small CVA. Patient seen and examined. Reports no change in headache, double vision, nausea, photosensitivity. Was holding a can of soda in her right hand this morning and suddenly dropped it. Had difficulty ambulating with PT today which is new, but no focal weakness noted on exam. Physical Exam Constitutional: no acute distress Respiratory: normal respiratory effort, lungs clear to auscultation Cardiovascular: Rate/Rhythm: regular rate and regular rhythm Extremities: no edema Skin: no rashes, warm and dry Neurologic: some difficulty preforming finger to nose on both sides - patient reports due to double vision, heel to frausto limited on right due to limited knee mobility, no focal weakness noted on exam Psychiatric: A+Ox3, euthymic affect Results & Data Results & Data Vital Signs (Past 12 Hours) Vital Signs Temp Pulse Resp BP Pulse Ox O2 Del Method O2 Flow Rate 05/14/25 11:05 36.3 C L 61 19 126/79 94 Nasal Cannula 3 05/14/25 07:51 36.4 C L 60 19 125/77 91 Nasal Cannula 3 Laboratory Results Short CBC 05/14/25 Range/Units 05:31 WBC 8.23 (4.8-10.8) K/ul Hgb 12.0 (12.0-16.0) g/dl Hct 35.7 L (37.0-47.0) % Plt Count 219 (130-400) K/uL BMP 05/14/25 05:31 Sodium 138 Potassium 5.0 Chloride 102 Carbon Dioxide 33 H BUN 22 Creatinine 1.02 Glucose 87 Calcium 8.5 L
[2025-05-14] MEDS: GALCANEZUMAB GNLM 120 MG/ML SQ ONE (17:32)
[2025-05-15 06:16] LABS: Hematocrit (blood only) 38.9 % (37.0-47.0); Hemoglobin 13.3 g/dl (12.0-16.0); Immature Granulocytes # (auto) 0.03 K/uL (0.01-0.20); Immature Granulocytes % (auto) 0.4 %; Mean Corpuscular Hemoglobin 31.0 pg (25.0-34.0); Mean Corpuscular Volume 90.7 fL (80.0-100.0); Platelet Count 218 K/uL (130-400); RDW Standard Deviation 44.4 fL (36.4-46.3); Red Blood Count 4.29 M/uL (4.20-5.40); White Blood Count 8.55 K/ul (4.8-10.8)
[2025-05-15 06:31] LABS: Anion Gap 5.0 (3-11); Blood Urea Nitrogen 22.0 mg/dl (6-23); Calcium 8.8 mg/dl (8.6-10.3); Carbon Dioxide 33.0 mmol/L (21-32); Chloride 99.0 mmol/L (98-107); Creatinine Clr Calc Pharmacy 63.6 ml/min; Glucose 93.0 mg/dl (70-99(Fasting)); Potassium 4.7 mmol/L (3.5-5.1); Sodium 137.0 mmol/L (136-145)
--- NOTE | 2025-05-15 10:23 | Hospitalist Progress Note ---
<Statement entered by Rachid Cabrera, DO - 05/15/25 15:58> Patient seen and examined Feeling better but still c/o headache and blurry vision, albeit improved Advised patient she is not to drive until she follows up with optho as OP For DC home with HC tomorrow, patient not interested in waiting for SNF as she takes care of her daughter. Date of Service May 15, 2025 Assessment & Plan (1) Migraine: (2) DM II (diabetes mellitus, type II), controlled: (3) (HFpEF) heart failure with preserved ejection fraction: (4) Dyslipidemia: (5) Nocturnal hypoxia: (6) GERD (gastroesophageal reflux disease): (7) Depression: (8) Hypothyroidism: (9) PFO (patent foramen ovale): (10) History of pulmonary embolism: (11) History of gastric bypass: Plan This is a 60 year old female with PMH significant for type 2 diabetes, hypothyroidism, hyperlipidemia, asthma, heart failure, GERD, psoriatic arthropathy, left hemiplegia, iron deficiency anemia, depression and anxiety, history of gastric bypass (2008), history of PE, history of C diff, and chronic migraines who presented to the ED on 05/08/2025 with unilateral headache and associated paresthesia and blurry vision that she felt is different than typical migraine and was admitted for stroke rule out. Worsening of Chronic migraine Typical migraine is right sided and associated with blurry vision, photophobia, right arm/leg weakness/numbness, N/V Follows with Pam Everett PA-C of [facility] last seen in March 2025 Prior medications include amitriptyline, Topamax, Ajovy, trigger point injections Started on Emgality in September 2024 which improved migraines significantly Started Depakote taper in March where she went from 750mg HS to 125mg HS Planned to stop magnesium and propranolol after completion of Depakote taper Patient reports this is the worst migraine she has ever experienced, possibly due to tapering of Depakote outpatient Stroke work up completed with negative CT head, CTA head and neck, MRI brain Neurology consulted and recommend: Depakote 500mg IV x1 Continue magnesium and propanolol Can give Emgality --> non-formulary. Brought from home and given evening of 05/14 S/p tapering dose of prednisone (completed 05/13) S/p increased Depakote to 500mg BID while on steroids -> resume home dose of 125mg HS Sleep, rest, IV hydration Gabapentin 300mg was added and increased to TID On low dose morphine PRN Will d/c PRN sumatriptan given tiny acute stroke noted on MRI Acute CVA Hx PFO 05/12 - developed worsening double vision Head CT/MRV/MRI obtained overnight. MRI showing tiny acute ischemic injury in the posterior right frontal lobe. On ASA and statin, Plavix added Neck CTA on 05/08 unremarkable Echo: EF 55-60%, grade I diastolic dysfunction Telemetry reviewed, no afib noted or reported History of TIA December 2023 and found to have PFO and is to undergo closure on 06/05/25. Was evaluated by hematology as o/p for weakly positive IgM cardiolipin antibody which not felt to be significant and ASA was recommended. 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 with physician practice consultant, no anticoagulation given risk of hemorrhagic conversion Repeat brain MRI obtained today due to ambulatory issues - negative for new/worsening infarct Type 2 diabetes On Ozempic at home A1C 5.8% BSG ACHS and SSI while inpatient HFpEF Patient appears euvolemic Lasix 20mg PO x 1 today per cardio Monitor I&Os Dyslipidemia Continue statin GERD Continue pantoprazole, pepcid, and carafate Depression Continue duloxetine, buspirone, and trazodone Hypothyroidism Continue levothyroxine Nocturnal hypoxia Per nocturnal oximetry in January 2025 Prescribed 2-3L O2 at night however patient states she uses 2L continuous History of PE s/p anti-coagulation x6 months History of gastric bypass [facility] Continue vitamin supplementation DVT PROPHYLAXIS: SCDs Dispo: [facility] referral [facility]ZAR[facility] following I spent a total of 45 minutes coordinating, documenting, and providing care for this patient excluding time spent in the performance of separately billed services or time spent by another provider/QHP. Admission and Anticipated Discharge Date Admission Date: May 09, 2025 Subjective Follow up for intractable migraine, acute small CVA. Patient seen and examined. Reports no change in headache, double vision, nausea, photosensitivity. Having tingling and numbness in RLE, same as prior. No change in gait since yesterday. Review of Systems Review of Systems: At least ten systems reviewed and negative except as noted in the HPI. Physical Exam Physical Exam: Gen: WD/WN, NAD, resting in bed, A&Ox3 HEENT: Normocephalic, atraumatic, mucous membranes moist Lung: Clear to Auscultation bilaterally Heart: Regular rate, regular rhythm Abdomen: Soft, NT, ND +BS x 4 Extremities: no focal deficits, no edema Skin: Warm, no rash Results & Data Results & Data Vital Signs (Past 12 Hours) Vital Signs Temp Pulse Resp BP Pulse Ox O2 Del Method O2 Flow Rate 05/15/25 07:11 36.5 C 63 16 125/78 92 Nasal Cannula 3 05/15/25 03:07 36.6 C 63 18 98/67 L 90 Nasal Cannula 3 05/14/25 23:01 37.1 C 65 18 97/67 L 92 Nasal Cannula 3 Laboratory Results Short CBC 05/15/25 Range/Units 06:02 WBC 8.55 (4.8-10.8) K/ul Hgb 13.3 (12.0-16.0) g/dl Hct 38.9 (37.0-47.0) % Plt Count 218 (130-400) K/uL BMP 05/15/25 06:02 Sodium 137 Potassium 4.7 Chloride 99 Carbon Dioxide 33 H BUN 22 Creatinine 1.08 Glucose 93 Calcium 8.8 Diagnostic Findings Chest X-Ray 05/08/25 07:46 SINGLE VIEW CHEST CLINICAL HISTORY: Chest pain FINDINGS: An AP, portable, upright chest radiograph is compared to study dated 02/06/2025 and correlated with chest CT dated 02/02/2025. The heart is enlarged. The pulmonary vasculature is noncongested. Chronic interstitial thickening is similar to previous. There is bibasilar atelectasis. The lungs and pleural spaces are otherwise clear. No pneumothorax is seen. The skeletal structures are osteopenic. The bony thorax is grossly intact. IMPRESSION: Cardiomegaly with no acute cardiopulmonary abnormality identified. ACT 112: Negative or not required by law. Electronically signed by: Zander Humphrey M.D. 05/08/2025 8:[address] 05/08/25 07:46 CT SCAN OF THE BRAIN WITHOUT IV CONTRAST CLINICAL HISTORY: Strokelike symptoms. Paresthesias. Headache. COMPARISON STUDY: CT of the brain dated 02/01/2024. TECHNIQUE: Unenhanced axial CT scan of the brain is performed from the vertex to the skull base. Images are reviewed in the axial, sagittal, and coronal planes. A dose lowering technique was utilized adhering to the principles of ALARA. FINDINGS: Brain parenchyma: A tiny chronic lacunar infarct is noted in the right cerebellar hemisphere. There is no hemorrhage, mass effect, or evidence of acute territorial ischemia by CT criteria. Escobar-white matter differentiation is preserved. No extra-axial fluid collection is seen. Ventricles, sulci, cisterns: Normal in configuration. Intracranial vasculature: There is mild atherosclerotic calcification of the cavernous carotid arteries. Calvarium: Unremarkable. Sinuses and mastoids: The visualized paranasal sinuses are clear. There is trace left mastoid effusion. The right mastoid air cells are well pneumatized. Orbits: The bony orbits are grossly intact. IMPRESSION: There is no hemorrhage, mass effect, or evidence of acute territorial ischemia by CT criteria. ACT 112: Negative or not required by law. Electronically signed by: Zander Humphrey M.D. 05/08/2025 9:21 AM Head CTA 05/08/25 07:46 CT angio head w con CLINICAL HISTORY: 60 years-old Female with stroke eval, parethesia on the R with [facility]. Acute stroke like symptoms with headache COMPARISON STUDY: Head CT same day, 02/01/2024, 12/27/2023 TECHNIQUE: Following the IV administration of 120 cc of Optiray, CT angiogram of the brain was performed from the skull base to the vertex. Images are reviewed in the axial, sagittal, and coronal planes. 3-D MIPS images are created and assessed. IV contrast was administered without complication. All measurements were obtained according to NASCET criteria. A dose lowering technique was utilized adhering to the principles of ALARA. FINDINGS: CT BRAIN: Dictated separately. CT ANGIOGRAM OF THE BRAIN: The imaged bilateral internal carotid arteries are patent. The bilateral anterior and middle cerebral arteries are also patent. The vertebrobasilar system and posterior cerebral arteries are widely patent. There is no aneurysm, high-grade stenosis, or proximal branch occlusion identified. Dural sinuses appear patent. IMPRESSION: Unremarkable CTA of the head. ACT 112: Negative or not required by law. The above report was generated using voice recognition software. It may contain grammatical, syntax or spelling errors. Electronically signed by: Alejandro Owens M.D. 05/08/2025 9:31 AM Neck CTA 05/08/25 07:46 CT ANGIOGRAPHY OF THE NECK WITH CONTRAST CLINICAL HISTORY: stroke eval, paresthesia on the R with [facility] COMPARISON STUDY: CTA of the neck February 01, 2024. Technique: CT angiography of the carotid and vertebral arteries was obtained using Optiray and 3D reconstruction on an independent workstation. NASCET criteria was utilized. Automated exposure control was utilized for the study. A dose lowering technique was utilized adhering to the principles of ALARA. CT DOSE: 987.09 mGy.cm Findings: Visualized portions of the lung apices are unremarkable. There is no cervical lymphadenopathy. There are no cervical spine fractures. The bilateral common carotid, cervical internal carotid and vertebral arteries are patent. No stenosis, dissection or aneurysm within the neck is present. IMPRESSION: Unremarkable CTA of the neck. ACT 112: Negative or not required by law. Electronically signed by: Yang Hansen M.D. 05/08/2025 9:16 AM Brain MRI 05/08/25 11:12 MRI OF THE BRAIN WITHOUT IV CONTRAST CLINICAL HISTORY: Worsening headaches. Paresthesias. Visual disturbance. COMPARISON STUDY: MRI of the brain February 02, 2024. Head CT and CTA of the head performed earlier today. TECHNIQUE: MRI of the brain was performed utilizing various T1 and T2-weighted sequences in the axial, sagittal, and coronal planes. IV contrast was not administered for this examination. Due to claustrophobia, the study could not be completed. Diffusion-weighted and sagittal T1 sequences were obtained. FINDINGS: No foci of restricted diffusion to suggest acute infarct are present. The ventricular system is normal. The basal cisterns are patent. No extra-axial collections are identified on this exam. 7 mm focus of signal abnormality within the right cerebellar hemisphere on axial image is unchanged from earlier exams. No additional foci of parenchymal signal abnormality are identified although this exam is moderately compromised given this incomplete protocol. No acute intracranial hemorrhage is identified. IMPRESSION: No evidence for acute infarct. Exam moderately compromised given incomplete protocol, as described above. However, no significant change since previous MRI on these two pulsing sequences. ACT 112: Negative or not required by law. Electronically signed by: Yang Hansen M.D. 05/08/2025 12:[address] 05/12/25 20:21 Exam(s): CT HEAD Without Contrast EXAM: CT Head Without Intravenous Contrast CLINICAL HISTORY: Reason for exam: blurred vision. TECHNIQUE: Axial computed tomography images of the head/brain without intravenous contrast. CTDI is 36.43 mGy and DLP is 625.8 mGy-cm. Automated exposure control was utilized for the study. A dose lowering technique was utilized adhering to the principles of ALARA. COMPARISON: No relevant prior studies available. FINDINGS: Brain: Unremarkable. No hemorrhage. No significant white matter disease. No edema. Ventricles: Unremarkable. No ventriculomegaly. Bones/joints: Unremarkable. No acute fracture. Soft tissues: Unremarkable. Sinuses: Unremarkable as visualized. No acute sinusitis. Mastoid air cells: Unremarkable as visualized. No mastoid effusion. IMPRESSION: No evidence of acute intracranial pathology. Electronically signed by: Candelaria Trevino MD 05/12/25 23:55 PM Brain MRI 05/12/25 20:42 CR Exam(s): MRI HEAD W/WO Contrast IV Amt: 10cc gadavist EXAM: MR Head Without and With Intravenous Contrast CLINICAL HISTORY: Reason for exam: double vision. TECHNIQUE: Magnetic resonance images of the head/brain without and with intravenous contrast in multiple planes. CONTRAST: Patient received 10cc gadavist of IV contrast COMPARISON: No relevant prior studies available. FINDINGS: Brain: There is a tiny acute ischemic injury in the posterior right frontal lobe without evidence of hemorrhagic transformation. There is a remote ischemic injury of the right cerebellum. Mild nonspecific white matter changes. There is a tiny dural based soft tissue lesion along the left anterior falx consistent with a meningioma measuring 9.9 x 8.2 x 8.6 mm. No hemorrhage. The flow voids at the base of the brain are intact. No abnormal enhancement of the brain parenchyma. The dural venous sinuses are patent. Ventricles: Unremarkable. No ventriculomegaly. Bones/joints: Unremarkable. No acute fracture. Sinuses: Unremarkable as visualized. No acute sinusitis. Mastoid air cells: There is a small amount of fluid in the left mastoid air cells. No mastoid effusion. Orbits: Unremarkable as visualized. IMPRESSION: There is a tiny acute ischemic injury in the posterior right frontal lobe without evidence of hemorrhagic transformation. Communications: Verify Receipt Electronically signed by: Candelaria Trevino MD 05/13/25 01:20 AM Head/Brain Mag Res Venography 05/12/25 20:42 Exam(s): MRV HEAD EXAM: MR Head Without Intravenous Contrast CLINICAL HISTORY: Reason for exam: persistent headaches. TECHNIQUE: Magnetic resonance images of the head/brain without intravenous contrast in multiple planes. COMPARISON: Prior CT angiogram of the head from May 08, 2025. FINDINGS: Brain: Unremarkable. No mass. No hemorrhage. No acute infarct. Ventricles: Unremarkable. No ventriculomegaly. Bones/joints: Unremarkable. No acute fracture. Sinuses: Unremarkable as visualized. No acute sinusitis. Mastoid air cells: Unremarkable as visualized. No mastoid effusion. Orbits: Unremarkable as visualized. IMPRESSION: Negative MRV of the brain. Electronically signed by: Candelaria Trevino MD 05/13/25 01:15 AM Venous Doppler Study 05/13/25 15:46 Exam(s): US VENOUS BILATERAL LOWER EXTREMITIES EXAM: US Duplex Bilateral Lower Extremities Veins CLINICAL HISTORY: Reason for exam: stroke, hx PFO. TECHNIQUE: Real-time duplex ultrasound scan of the bilateral lower extremity veins integrating B-mode two-dimensional vascular structure, Doppler spectral analysis, color flow Doppler imaging and compression. COMPARISON: No relevant prior studies available. FINDINGS: Right deep veins: Unremarkable. No DVT in the right common femoral, femoral, proximal deep femoral or popliteal veins. The veins demonstrate normal color flow, are normally compressible, with normal phasic flow and/or augmentation response. Right superficial veins: Unremarkable. No thrombus in the visualized right great saphenous vein. Left deep veins: Unremarkable. No DVT in the left common femoral, femoral, proximal deep femoral or popliteal veins. The veins demonstrate normal color flow, are normally compressible, with normal phasic flow and/or augmentation response. Left superficial veins: Unremarkable. No thrombus in the visualized left great saphenous vein. Soft tissues: Extensive diffuse soft tissue edema bilaterally. No popliteal cyst. IMPRESSION: No evidence of DVT in the lower extremities. Electronically signed by: Bryon Rivas MD 05/13/25 23:10 PM Brain MRI 05/14/25 12:45 MRI OF THE BRAIN WITHOUT IV CONTRAST CLINICAL HISTORY: Worsening dizziness and double vision. COMPARISON STUDY: 05/12/2025 TECHNIQUE: MRI of the brain was performed utilizing various T1 and T2-weighted sequences in the axial, sagittal, and coronal planes. IV contrast was not administered for this examination. FINDINGS: There is a persistent 3 mm focus of restricted water diffusion within the right posterior frontal lobe. This is consistent with a tiny subacute infarct. No new areas of infarction are visualized. The ventricular system has a normal size and configuration. There is no midline shift. There is a persistent 6 mm focus of increased T2 signal within the right cerebellar hemisphere consistent with remote insult. Gradient echo images reveal no evidence of hemorrhage. There is an 8 mm dural based opacity within the left anterior frontal region, likely representing a meningioma. This has been described on prior studies. IMPRESSION: 1. No significant change from the preceding study 2. Persistent 3 mm focus of restricted water diffusion within the right posterior frontal lobe likely representing a tiny subacute infarct 3. Stable 8 mm extra-axial left frontal anterior parafalcine lesion likely representing a meningioma ACT 112: Negative or not required by law. Electronically signed by: Amish Orantes M.D. 05/14/2025 2:22 PM
--- NOTE | 2025-05-15 11:59 | Cardiology Progress Note ---
Date of Service May 15, 2025 Assessment & Plan (1) Acute ischemic stroke: (2) PFO (patent foramen ovale): (3) Anti-cardiolipin antibody positive: Plan 60-year-old female admitted with headache and strokelike symptoms. MRI demonstrating tiny acute ischemic injury in the posterior right frontal lobe without evidence of hemorrhagic transformation 05/08/25. No change per repeat MRI 06/04. No evidence of carotid stenosis or cerebrovascular stenosis per CTA. Dual antiplatelet therapy ordered by neurology. No evidence of atrial fibrillation on telemetry or prior ZIO monitor. She is scheduled for PFO closure 06/05/2025. Discussed with interventionalist. She will proceed with PFO closure as scheduled at [facility]. Hematology not recommending anticoagulation at this time. Repeat anticardiolipin antibody ordered. Repeat outpatient 14-day ZIO monitor. Cardiology follow-up in 4 to 6 weeks. Will sign off. Please call if additional concerns/questions. Mckinley Varghese DO, [facility] Admission and Anticipated Discharge Date Admission Date: May 09, 2025 Subjective 60-year-old female seen and examined at the bedside. Headache mildly improved. Repeat MRI without changes. Denies chest pain or shortness of breath. Telemetry reveals a short run of PSVT overnight. No evidence of atrial fibrillation per remains in sinus rhythm currently. Review of Systems Review of Systems: All systems reviewed & are unremarkable except as noted in Subjective Physical Exam Constitutional: well developed, well nourished and + obese Respiratory: no respiratory distress, no labored breathing and no retractions Auscultation: no crackles, no rales, no rhonchi and no wheezes Cardiovascular: Rate/Rhythm: regular rate and regular rhythm Heart Sounds: normal S1, normal S2 and + murmur (2/6 ELIU) Vessels: no JVD and no carotid bruit Extremities: + edema (Trace to mild bilateral ankle edema.) Gastrointestinal (Abdomen): Inspection/Auscultation: normal bowel sounds; abdomen not distended Percussion/Palpation: abdomen soft; abdomen nontender, no guarding and abdomen not rigid Neurologic: moves all extremities Results & Data Vital Signs (Past 12 Hours) Vital Signs Temp Pulse Resp BP Pulse Ox O2 Del Method O2 Flow Rate 05/15/25 11:04 36.3 C L 64 16 123/80 93 Room Air 05/15/25 07:11 36.5 C 63 16 125/78 92 Nasal Cannula 3 05/15/25 03:07 36.6 C 63 18 98/67 L 90 Nasal Cannula 3 Laboratory Results CBC 05/15/25 Range/Units 06:02 WBC 8.55 (4.8-10.8) K/ul RBC 4.29 (4.20-5.40) M/uL Hgb 13.3 (12.0-16.0) g/dl Hct 38.9 (37.0-47.0) % Plt Count 218 (130-400) K/uL Neut # (Auto) 4.46 (1.40-6.50) K/uL Lymph # (Auto) 2.87 (1.20-3.40) K/uL Gallia # (Auto) 0.87 H (0.11-0.59) K/uL Eos # (Auto) 0.28 (0.00-0.50) K/uL Baso # (Auto) 0.04 (0.00-0.20) K/uL Comprehensive Metabolic Panel 05/15/25 Range/Units 06:02 Sodium 137 (136-145) mmol/L Potassium 4.7 (3.5-5.1) mmol/L Chloride 99 (98-107) mmol/L Carbon Dioxide 33 H (21-32) mmol/L BUN 22 (6-23) mg/dl Creatinine 1.08 (0.6-1.2) mg/dl Glucose 93 (70-99(Fasting)) mg/dl Calcium 8.8 (8.6-10.3) mg/dl Intake and Output 05/14/25 05/15/25 05/15/25 22:59 06:59 14:59 Intake Total 150 / 890 Output Total Balance 150 / 890 - Intake: Oral 150 / 890 Output: # Bowel Movements Other: # Unmeasured Voids Weight 101.1 kg Weight Measurement Method Built in [facility] PG Care Time/CCT Total # of Minutes Spent Total Time Spent with Patient: Total time spent is greater than 50% in coordination of care (as documented) at patient's floor/unit and/or counseling patient: Coding Level of Care Code 76631 SUB INP/OBS CARE 3/50MIN Diagnoses Acute ischemic stroke I63.9 PFO (patent foramen ovale) Q21.12 Anti-cardiolipin antibody positive R76.0
[2025-05-15] MEDS: HEPARIN 25000 UNIT/500 ML D5W IV ONE (16:19)
[2025-05-16 06:26] LABS: Hematocrit (blood only) 36.6 % (37.0-47.0); Hemoglobin 12.1 g/dl (12.0-16.0); Mean Corpuscular Hemoglobin 30.0 pg (25.0-34.0); Mean Corpuscular Volume 90.6 fL (80.0-100.0); Platelet Count 215 K/uL (130-400); RDW Standard Deviation 44.9 fL (36.4-46.3); Red Blood Count 4.04 M/uL (4.20-5.40); White Blood Count 7.48 K/ul (4.8-10.8)
[2025-05-16 06:46] LABS: Anion Gap 4.0 (3-11); Blood Urea Nitrogen 23.0 mg/dl (6-23); Calcium 8.7 mg/dl (8.6-10.3); Carbon Dioxide 31.0 mmol/L (21-32); Chloride 101.0 mmol/L (98-107); Creatinine Clr Calc Pharmacy 58.8 ml/min; Glucose 102.0 mg/dl (70-99(Fasting)); Potassium 4.8 mmol/L (3.5-5.1); Sodium 136.0 mmol/L (136-145)
--- NOTE | 2025-05-16 12:16 | Hospitalist Progress Note ---
<Statement entered by Rachid Cabrera DO - 05/17/25 07:21> I was available to HELEN D/w HELEN Date of Service May 16, 2025 Assessment & Plan (1) Migraine: (2) DM II (diabetes mellitus, type II), controlled: (3) (HFpEF) heart failure with preserved ejection fraction: (4) Dyslipidemia: (5) Nocturnal hypoxia: (6) GERD (gastroesophageal reflux disease): (7) Depression: (8) Hypothyroidism: (9) PFO (patent foramen ovale): (10) History of pulmonary embolism: (11) History of gastric bypass: Plan This is a 60 year old female with PMH significant for type 2 diabetes, hypothyroidism, hyperlipidemia, asthma, heart failure, GERD, psoriatic arthrop athy, left hemiplegia, iron deficiency anemia, depression and anxiety, history of gastric bypass (2008), history of PE, history of C diff, and chronic migraines who presented to the ED on 05/08/2025 with unilateral headache and associated paresthesia and blurry vision that she felt is different than typical migraine and was admitted for stroke rule out. Worsening of Chronic migraine Typical migraine is right sided and associated with blurry vision, photophobia, right arm/leg weakness/numbness, N/V Follows with Pam Everett PA-C of [facility] Neurology last seen in March 2025 Prior medications include amitriptyline, Topamax, Ajovy, trigger point injections Started on Emgality in September 2024 which improved migraines significantly Started Depakote taper in March where she went from 750mg HS to 125mg HS Planned to stop magnesium and propranolol after completion of Depakote taper Patient reports this is the worst migraine she has ever experienced, possibly due to tapering of Depakote outpatient Stroke work up completed with negative CT head, CTA head and neck, MRI brain Neurology consulted and recommend: Depakote 500mg IV x1 Continue magnesium and propanolol Can give Emgality --> non-formulary. Brought from home and given evening of 05/14 S/p tapering dose of prednisone (completed 05/13) S/p increased Depakote to 500mg BID while on steroids -> resume home dose of 125mg HS Sleep, rest, IV hydration Gabapentin 300mg was added and increased to TID On low dose morphine PRN Will d/c PRN sumatriptan given tiny acute stroke noted on MRI Acute CVA Hx PFO 05/12 - developed worsening double vision Head CT/MRV/MRI obtained overnight. MRI showing tiny acute ischemic injury in the posterior right frontal lobe. On ASA and statin, Plavix added Neck CTA on 05/08 unremarkable Echo: EF 55-60%, grade I diastolic dysfunction Telemetry reviewed, no afib noted or reported History of TIA December 2023 and found to have PFO and is to undergo closure on 06/05/25. Was evaluated by hematology as o/p for weakly positive IgM cardiolipin antibody which not felt to be significant and ASA was recommended. 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, no anticoagulation given risk of hemorrhagic conversion Repeat brain MRI obtained today due to ambulatory issues - negative for new/worsening infarct Type 2 diabetes On Ozempic at home A1C 5.8% BSG ACHS and SSI while inpatient HFpEF Patient appears euvolemic Lasix 20mg PO x 1 today per cardio Monitor I&Os Dyslipidemia Continue statin GERD Continue pantoprazole, pepcid, and carafate Depression Continue duloxetine, buspirone, and trazodone Hypothyroidism Continue levothyroxine Nocturnal hypoxia Per nocturnal oximetry in January 2025 Prescribed 2-3L O2 at night however patient states she uses 2L continuous History of PE s/p anti-coagulation x6 months History of gastric bypass [facility] Continue vitamin supplementation DVT PROPHYLAXIS: SCDs Dispo: Denied [facility] and planned for patient home with services today but still requiring help on ambulation, PT recommending SNF. Patient lives with daughter who has MS and does not feel she is too weak to return home today. Appreciate CM help with SNF search. Care coordinated with Dr. Cabrera. I spent a total of 45 minutes coordinating, documenting, and providing care for this patient excluding time spent in the performance of separately billed services or time spent by another provider/QHP. Admission and Anticipated Discharge Date Admission Date: May 09, 2025 Subjective Symptoms of headache, right sided paresthesias and blurred vision slightly improved from yesterday but still present. No other acute changes. Requiring some assistance on ambulation per patient and PT. No fever, chills, chest pain, shortness of breath, nausea, vomiting, abdominal pain. Review of Systems Review of Systems: At least ten systems reviewed and negative except as noted in the HPI. Physical Exam Physical Exam: Gen: WD/WN, NAD, resting in bed, A&Ox3 HEENT: Normocephalic, atraumatic, mucous membranes moist Lung: Clear to Auscultation bilaterally Heart: Regular rate, regular rhythm Abdomen: Soft, NT, ND +BS x 4 Extremities: no focal deficits, no edema Skin: Warm, no rash Results & Data Results & Data Vital Signs (Past 12 Hours) Vital Signs Temp Pulse Pulse Resp BP Pulse Ox O2 Del Method 05/16/25 12:02 36.5 C 65 18 98/65 L 95 Nasal Cannula 05/16/25 08:35 Room Air, Nasal Cannula 05/16/25 08:16 61 18 101/65 91 Nasal Cannula 05/16/25 07:00 59 L 05/16/25 02:58 36.8 C 62 18 84/53 L 92 Nasal Cannula O2 Flow Rate 05/16/25 12:02 3 05/16/25 08:35 3 05/16/25 08:16 3 05/16/25 07:00 05/16/25 02:58 3 Laboratory Results Short CBC 05/16/25 Range/Units 05:50 WBC 7.48 (4.8-10.8) K/ul Hgb 12.1 (12.0-16.0) g/dl Hct 36.6 L (37.0-47.0) % Plt Count 215 (130-400) K/uL [facility] 05/16/25 05:50 Sodium 136 Potassium 4.8 Chloride 101 Carbon Dioxide 31 BUN 23 Creatinine 1.16 Glucose 102 H Calcium 8.7 Diagnostic Findings Chest X-Ray 05/08/25 07:46 SINGLE VIEW CHEST CLINICAL HISTORY: Chest pain FINDINGS: An AP, portable, upright chest radiograph is compared to study dated 02/06/2025 and correlated with chest CT dated 02/02/2025. The heart is enlarged. The pulmonary vasculature is noncongested. Chronic interstitial thickening is similar to previous. There is bibasilar atelectasis. The lungs and pleural spaces are otherwise clear. No pneumothorax is seen. The skeletal structures are osteopenic. The bony thorax is grossly intact. IMPRESSION: Cardiomegaly with no acute cardiopulmonary abnormality identified. ACT 112: Negative or not required by law. Electronically signed by: Zander Humphrey M.D. 05/08/2025 8:[address] 05/08/25 07:46 CT SCAN OF THE BRAIN WITHOUT IV CONTRAST CLINICAL HISTORY: Strokelike symptoms. Paresthesias. Headache. COMPARISON STUDY: CT of the brain dated 02/01/2024. TECHNIQUE: Unenhanced axial CT scan of the brain is performed from the vertex to the skull base. Images are reviewed in the axial, sagittal, and coronal planes. A dose lowering technique was utilized adhering to the principles of ALARA. FINDINGS: Brain parenchyma: A tiny chronic lacunar infarct is noted in the right cerebellar hemisphere. There is no hemorrhage, mass effect, or evidence of acute territorial ischemia by CT criteria. Escobar-white matter differentiation is preserved. No extra-axial fluid collection is seen. Ventricles, sulci, cisterns: Normal in configuration. Intracranial vasculature: There is mild atherosclerotic calcification of the cavernous carotid arteries. Calvarium: Unremarkable. Sinuses and mastoids: The visualized paranasal sinuses are clear. There is trace left mastoid effusion. The right mastoid air cells are well pneumatized. Orbits: The bony orbits are grossly intact. IMPRESSION: There is no hemorrhage, mass effect, or evidence of acute territorial ischemia by CT criteria. ACT 112: Negative or not required by law. Electronically signed by: Zander Humphrey M.D. 05/08/2025 9:21 AM Head CTA 05/08/25 07:46 CT angio head w con CLINICAL HISTORY: 60 years-old Female with stroke eval, parethesia on the R with [facility]. Acute stroke like symptoms with headache COMPARISON STUDY: Head CT same day, 02/01/2024, 12/27/2023 TECHNIQUE: Following the IV administration of 120 cc of Optiray, CT angiogram of the brain was performed from the skull base to the vertex. Images are reviewed in the axial, sagittal, and coronal planes. 3-D MIPS images are created and assessed. IV contrast was administered without complication. All measurements were obtained according to NASCET criteria. A dose lowering technique was utilized adhering to the principles of ALARA. FINDINGS: CT BRAIN: Dictated separately. CT ANGIOGRAM OF THE BRAIN: The imaged bilateral internal carotid arteries are patent. The bilateral anterior and middle cerebral arteries are also patent. The vertebrobasilar system and posterior cerebral arteries are widely patent. There is no aneurysm, high-grade stenosis, or proximal branch occlusion identified. Dural sinuses appear patent. IMPRESSION: Unremarkable CTA of the head. ACT 112: Negative or not required by law. The above report was generated using voice recognition software. It may contain grammatical, syntax or spelling errors. Electronically signed by: Alejandro Owens M.D. 05/08/2025 9:31 AM Neck CTA 05/08/25 07:46 CT ANGIOGRAPHY OF THE NECK WITH CONTRAST CLINICAL HISTORY: stroke eval, paresthesia on the R with [facility] COMPARISON STUDY: CTA of the neck February 01, 2024. Technique: CT angiography of the carotid and vertebral arteries was obtained using Optiray and 3D reconstruction on an independent workstation. NASCET criteria was utilized. Automated exposure control was utilized for the study. A dose lowering technique was utilized adhering to the principles of ALARA. CT DOSE: 987.09 mGy.cm Findings: Visualized portions of the lung apices are unremarkable. There is no cervical lymphadenopathy. There are no cervical spine fractures. The bilateral common carotid, cervical internal carotid and vertebral arteries are patent. No stenosis, dissection or aneurysm within the neck is present. IMPRESSION: Unremarkable CTA of the neck. ACT 112: Negative or not required by law. Electronically signed by: Yang Hansen M.D. 05/08/2025 9:16 AM Brain MRI 05/08/25 11:12 MRI OF THE BRAIN WITHOUT IV CONTRAST CLINICAL HISTORY: Worsening headaches. Paresthesias. Visual disturbance. COMPARISON STUDY: MRI of the brain February 02, 2024. Head CT and CTA of the head performed earlier today. TECHNIQUE: MRI of the brain was performed utilizing various T1 and T2-weighted sequences in the axial, sagittal, and coronal planes. IV contrast was not administered for this examination. Due to claustrophobia, the study could not be completed. Diffusion-weighted and sagittal T1 sequences were obtained. FINDINGS: No foci of restricted diffusion to suggest acute infarct are present. The ventricular system is normal. The basal cisterns are patent. No extra-axial collections are identified on this exam. 7 mm focus of signal abnormality within the right cerebellar hemisphere on axial image is unchanged from earlier exams. No additional foci of parenchymal signal abnormality are identified although this exam is moderately compromised given this incomplete protocol. No acute intracranial hemorrhage is identified. IMPRESSION: No evidence for acute infarct. Exam moderately compromised given incomplete protocol, as described above. However, no significant change since previous MRI on these two pulsing sequences. ACT 112: Negative or not required by law. Electronically signed by: Yang Hansen M.D. 05/08/2025 12:[address] 05/12/25 20:21 Exam(s): CT HEAD Without Contrast EXAM: CT Head Without Intravenous Contrast CLINICAL HISTORY: Reason for exam: blurred vision. TECHNIQUE: Axial computed tomography images of the head/brain without intravenous contrast. CTDI is 36.43 mGy and DLP is 625.8 mGy-cm. Automated exposure control was utilized for the study. A dose lowering technique was utilized adhering to the principles of ALARA. COMPARISON: No relevant prior studies available. FINDINGS: Brain: Unremarkable. No hemorrhage. No significant white matter disease. No edema. Ventricles: Unremarkable. No ventriculomegaly. Bones/joints: Unremarkable. No acute fracture. Soft tissues: Unremarkable. Sinuses: Unremarkable as visualized. No acute sinusitis. Mastoid air cells: Unremarkable as visualized. No mastoid effusion. IMPRESSION: No evidence of acute intracranial pathology. Electronically signed by: Candelaria Trevino MD 05/12/25 23:55 PM Brain MRI 05/12/25 20:42 CR Exam(s): MRI HEAD W/WO Contrast IV Amt: 10cc gadavist EXAM: MR Head Without and With Intravenous Contrast CLINICAL HISTORY: Reason for exam: double vision. TECHNIQUE: Magnetic resonance images of the head/brain without and with intravenous contrast in multiple planes. CONTRAST: Patient received 10cc gadavist of IV contrast COMPARISON: No relevant prior studies available. FINDINGS: Brain: There is a tiny acute ischemic injury in the posterior right frontal lobe without evidence of hemorrhagic transformation. There is a remote ischemic injury of the right cerebellum. Mild nonspecific white matter changes. There is a tiny dural based soft tissue lesion along the left anterior falx consistent with a meningioma measuring 9.9 x 8.2 x 8.6 mm. No hemorrhage. The flow voids at the base of the brain are intact. No abnormal enhancement of the brain parenchyma. The dural venous sinuses are patent. Ventricles: Unremarkable. No ventriculomegaly. Bones/joints: Unremarkable. No acute fracture. Sinuses: Unremarkable as visualized. No acute sinusitis. Mastoid air cells: There is a small amount of fluid in the left mastoid air cells. No mastoid effusion. Orbits: Unremarkable as visualized. IMPRESSION: There is a tiny acute ischemic injury in the posterior right frontal lobe without evidence of hemorrhagic transformation. Communications: Verify Receipt Electronically signed by: Candelaria Trevino MD 05/13/25 01:20 AM Head/Brain Mag Res Venography 05/12/25 20:42 Exam(s): MRV HEAD EXAM: MR Head Without Intravenous Contrast CLINICAL HISTORY: Reason for exam: persistent headaches. TECHNIQUE: Magnetic resonance images of the head/brain without intravenous contrast in multiple planes. COMPARISON: Prior CT angiogram of the head from May 08, 2025. FINDINGS: Brain: Unremarkable. No mass. No hemorrhage. No acute infarct. Ventricles: Unremarkable. No ventriculomegaly. Bones/joints: Unremarkable. No acute fracture. Sinuses: Unremarkable as visualized. No acute sinusitis. Mastoid air cells: Unremarkable as visualized. No mastoid effusion. Orbits: Unremarkable as visualized. IMPRESSION: Negative MRV of the brain. Electronically signed by: Candelaria Trevino MD 05/13/25 01:15 AM Venous Doppler Study 05/13/25 15:46 Exam(s): US VENOUS BILATERAL LOWER EXTREMITIES EXAM: US Duplex Bilateral Lower Extremities Veins CLINICAL HISTORY: Reason for exam: stroke, hx PFO. TECHNIQUE: Real-time duplex ultrasound scan of the bilateral lower extremity veins integrating B-mode two-dimensional vascular structure, Doppler spectral analysis, color flow Doppler imaging and compression. COMPARISON: No relevant prior studies available. FINDINGS: Right deep veins: Unremarkable. No DVT in the right common femoral, femoral, proximal deep femoral or popliteal veins. The veins demonstrate normal color flow, are normally compressible, with normal phasic flow and/or augmentation response. Right superficial veins: Unremarkable. No thrombus in the visualized right great saphenous vein. Left deep veins: Unremarkable. No DVT in the left common femoral, femoral, proximal deep femoral or popliteal veins. The veins demonstrate normal color flow, are normally compressible, with normal phasic flow and/or augmentation response. Left superficial veins: Unremarkable. No thrombus in the visualized left great saphenous vein. Soft tissues: Extensive diffuse soft tissue edema bilaterally. No popliteal cyst. IMPRESSION: No evidence of DVT in the lower extremities. Electronically signed by: Bryon Rivas MD 05/13/25 23:10 PM Brain MRI 05/14/25 12:45 MRI OF THE BRAIN WITHOUT IV CONTRAST CLINICAL HISTORY: Worsening dizziness and double vision. COMPARISON STUDY: 05/12/2025 TECHNIQUE: MRI of the brain was performed utilizing various T1 and T2-weighted sequences in the axial, sagittal, and coronal planes. IV contrast was not administered for this examination. FINDINGS: There is a persistent 3 mm focus of restricted water diffusion within the right posterior frontal lobe. This is consistent with a tiny subacute infarct. No new areas of infarction are visualized. The ventricular system has a normal size and configuration. There is no midline shift. There is a persistent 6 mm focus of increased T2 signal within the right cerebellar hemisphere consistent with remote insult. Gradient echo images reveal no evidence of hemorrhage. There is an 8 mm dural based opacity within the left anterior frontal region, likely representing a meningioma. This has been described on prior studies. IMPRESSION: 1. No significant change from the preceding study 2. Persistent 3 mm focus of restricted water diffusion within the right posterior frontal lobe likely representing a tiny subacute infarct 3. Stable 8 mm extra-axial left frontal anterior parafalcine lesion likely representing a meningioma ACT 112: Negative or not required by law. Electronically signed by: Amish Orantes M.D. 05/14/2025 2:22 PM
[2025-05-16] MEDS: SODIUM CHLORIDE 0.9% 1,000 ML IV SCH (13:40)
[2025-05-16] MEDS: SODIUM CHLORIDE 0.9% 1,000 ML IV ONE (23:42)
[2025-05-17 06:08] LABS: Hematocrit (blood only) 34.4 % (37.0-47.0); Hemoglobin 11.0 g/dl (12.0-16.0); Mean Corpuscular Hemoglobin 29.3 pg (25.0-34.0); Mean Corpuscular Volume 91.7 fL (80.0-100.0); Platelet Count 205 K/uL (130-400); RDW Standard Deviation 45.5 fL (36.4-46.3); Red Blood Count 3.75 M/uL (4.20-5.40); White Blood Count 7.46 K/ul (4.8-10.8)
[2025-05-17 06:26] LABS: Anion Gap 4.0 (3-11); Blood Urea Nitrogen 23.0 mg/dl (6-23); Calcium 8.2 mg/dl (8.6-10.3); Carbon Dioxide 28.0 mmol/L (21-32); Chloride 106.0 mmol/L (98-107); Creatinine Clr Calc Pharmacy 63.3 ml/min; Glucose 90.0 mg/dl (70-99(Fasting)); Potassium 4.8 mmol/L (3.5-5.1); Sodium 138.0 mmol/L (136-145)
--- NOTE | 2025-05-17 07:48 | Hospitalist Progress Note ---
Date of Service May 17, 2025 Assessment & Plan (1) Migraine: (2) DM II (diabetes mellitus, type II), controlled: (3) (HFpEF) heart failure with preserved ejection fraction: (4) Dyslipidemia: (5) Nocturnal hypoxia: (6) GERD (gastroesophageal reflux disease): (7) Depression: (8) Hypothyroidism: (9) PFO (patent foramen ovale): (10) History of pulmonary embolism: (11) History of gastric bypass: Plan This is a 60 year old female with PMH significant for type 2 diabetes, hypothyroidism, hyperlipidemia, asthma, heart failure, GERD, psoriatic arthropathy, left hemiplegia, iron deficiency anemia, depression and anxiety, history of gastric bypass (2008), history of PE, history of C diff, and chronic migraines who presented to the ED on 05/08/2025 with unilateral headache and associated paresthesia and blurry vision that she felt is different than typical migraine and was admitted for stroke rule out. Worsening of Chronic migraine Typical migraine is right sided and associated with blurry vision, photophobia, right arm/leg weakness/numbness, N/V Follows with Pam Everett PA-C of [facility] last seen in March 2025 Prior medications include amitriptyline, Topamax, Ajovy, trigger point injections Started on Emgality in September 2024 which improved migraines significantly Started Depakote taper in March where she went from 750mg HS to 125mg HS Planned to stop magnesium and propranolol after completion of Depakote taper Patient reports this is the worst migraine she has ever experienced, possibly due to tapering of Depakote outpatient Stroke work up completed with negative CT head, CTA head and neck, MRI brain Neurology consulted and recommend: Depakote 500mg IV x1 Continue magnesium and propanolol Can give Emgality --> non-formulary. Brought from home and given evening of 05/14 S/p tapering dose of prednisone (completed 05/13) S/p increased Depakote to 500mg BID while on steroids -> resume home dose of 125mg HS Sleep, rest, IV hydration Gabapentin 300mg was added and increased to TID On low dose morphine PRN Will d/c PRN sumatriptan given tiny acute stroke noted on MRI Acute CVA Hx PFO 05/12 - developed worsening double vision Head CT/MRV/MRI obtained overnight. MRI showing tiny acute ischemic injury in the posterior right frontal lobe. On ASA and statin, Plavix added Neck CTA on 05/08 unremarkable Echo: EF 55-60%, grade I diastolic dysfunction Telemetry reviewed, no afib noted or reported History of TIA December 2023 and found to have PFO and is to undergo closure on 06/05/25. Was evaluated by hematology as o/p for weakly positive IgM cardiolipin antibody which not felt to be significant and ASA was recommended. 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 maintenance supervisor, no anticoagulation given risk of hemorrhagic conversion Repeat brain MRI obtained today due to ambulatory issues - negative for new/worsening infarct Type 2 diabetes On Ozempic at home A1C 5.8% BSG ACHS and SSI while inpatient HFpEF Patient appears euvolemic Lasix 20mg PO x 1 today per cardio Monitor I&Os Dyslipidemia Continue statin GERD Continue pantoprazole, pepcid, and carafate Depression Continue duloxetine, buspirone, and trazodone Hypothyroidism Continue levothyroxine Nocturnal hypoxia Per nocturnal oximetry in January 2025 Prescribed 2-3L O2 at night however patient states she uses 2L continuous History of PE s/p anti-coagulation x6 months History of gastric bypass [facility] Continue vitamin supplementation DVT PROPHYLAXIS: SCDs Dispo: Denied [facility] and planned for patient home with services today but still requiring help on ambulation. Patient lives with daughter who has MS and does not feel she is too weak to return home today. PT/OT re-evaluated - recommending rehab. Appreciate CM help with SNF search. Care coordinated with Dr. Cabrera. I spent a total of 35 minutes coordinating, documenting, and providing care for this patient excluding time spent in the performance of separately billed services or time spent by another provider/QHP. Admission and Anticipated Discharge Date Admission Date: May 09, 2025 Subjective Symptoms of headache, right sided paresthesias and blurred vision still present. No other acute changes. Requiring some assistance on ambulation per patient and PT. No fever, chills, chest pain, shortness of breath, nausea, vomiting, abdominal pain. Review of Systems Review of Systems: At least ten systems reviewed and negative except as noted in the HPI. Physical Exam Physical Exam: Gen: WD/WN, NAD, resting in bed, A&Ox3 HEENT: Normocephalic, atraumatic, mucous membranes moist Lung: Clear to Auscultation bilaterally Heart: Regular rate, regular rhythm Abdomen: Soft, NT, ND +BS x 4 Extremities: no focal deficits, no edema Skin: Warm, no rash Results & Data Results & Data Vital Signs (Past 12 Hours) Vital Signs Temp Pulse Pulse Resp BP Pulse Ox O2 Del Method 05/17/25 07:39 63 05/17/25 03:14 61 101/65 05/17/25 02:44 37.0 C 62 18 80/49 L 90 Nasal Cannula 05/17/25 01:07 80 05/16/25 22:55 36.5 C 66 18 92/60 L 91 Nasal Cannula O2 Flow Rate 05/17/25 07:39 05/17/25 03:14 05/17/25 02:44 3 05/17/25 01:07 05/16/25 22:55 3 Laboratory Results Short CBC 05/17/25 Range/Units 05:25 WBC 7.46 (4.8-10.8) K/ul Hgb 11.0 L (12.0-16.0) g/dl Hct 34.4 L (37.0-47.0) % Plt Count 205 (130-400) K/uL BMP 05/17/25 05:25 Sodium 138 Potassium 4.8 Chloride 106 Carbon Dioxide 28 BUN 23 Creatinine 1.08 Glucose 90 Calcium 8.2 L Diagnostic Findings Chest X-Ray 05/08/25 07:46 SINGLE VIEW CHEST CLINICAL HISTORY: Chest pain FINDINGS: An AP, portable, upright chest radiograph is compared to study dated 02/06/2025 and correlated with chest CT dated 02/02/2025. The heart is enlarged. The pulmonary vasculature is noncongested. Chronic interstitial thickening is similar to previous. There is bibasilar atelectasis. The lungs and pleural spaces are otherwise clear. No pneumothorax is seen. The skeletal structures are osteopenic. The bony thorax is grossly intact. IMPRESSION: Cardiomegaly with no acute cardiopulmonary abnormality identified. ACT 112: Negative or not required by law. Electronically signed by: Zander Humphrey M.D. 05/08/2025 8:[address] 05/08/25 07:46 CT SCAN OF THE BRAIN WITHOUT IV CONTRAST CLINICAL HISTORY: Strokelike symptoms. Paresthesias. Headache. COMPARISON STUDY: CT of the brain dated 02/01/2024. TECHNIQUE: Unenhanced axial CT scan of the brain is performed from the vertex to the skull base. Images are reviewed in the axial, sagittal, and coronal planes. A dose lowering technique was utilized adhering to the principles of ALARA. FINDINGS: Brain parenchyma: A tiny chronic lacunar infarct is noted in the right cerebellar hemisphere. There is no hemorrhage, mass effect, or evidence of acute territorial ischemia by CT criteria. Escobar-white matter differentiation is preserved. No extra-axial fluid collection is seen. Ventricles, sulci, cisterns: Normal in configuration. Intracranial vasculature: There is mild atherosclerotic calcification of the ca vernous carotid arteries. Calvarium: Unremarkable. Sinuses and mastoids: The visualized paranasal sinuses are clear. There is trace left mastoid effusion. The right mastoid air cells are well pneumatized. Orbits: The bony orbits are grossly intact. IMPRESSION: There is no hemorrhage, mass effect, or evidence of acute territorial ischemia by CT criteria. ACT 112: Negative or not required by law. Electronically signed by: Zander Humphrey M.D. 05/08/2025 9:21 AM Head CTA 05/08/25 07:46 CT angio head w con CLINICAL HISTORY: 60 years-old Female with stroke eval, parethesia on the R with [facility]. Acute stroke like symptoms with headache COMPARISON STUDY: Head CT same day, 02/01/2024, 12/27/2023 TECHNIQUE: Following the IV administration of 120 cc of Optiray, CT angiogram of the brain was performed from the skull base to the vertex. Images are reviewed in the axial, sagittal, and coronal planes. 3-D MIPS images are created and assessed. IV co ntrast was administered without complication. All measurements were obtained according to NASCET criteria. A dose lowering technique was utilized adhering to the principles of ALARA. FINDINGS: CT BRAIN: Dictated separately. CT ANGIOGRAM OF THE BRAIN: The imaged bilateral internal carotid arteries are patent. The bilateral anterior and middle cerebral arteries are also patent. The vertebrobasilar system and posterior cerebral arteries are widely patent. There is no aneurysm, high-grade stenosis, or proximal branch occlusion identified. Dural sinuses appear patent. IMPRESSION: Unremarkable CTA of the head. ACT 112: Negative or not required by law. The above report was generated using voice recognition software. It may contain grammatical, syntax or spelling errors. Electronically signed by: Alejandro Owens M.D. 05/08/2025 9:31 AM Neck CTA 05/08/25 07:46 CT ANGIOGRAPHY OF THE NECK WITH CONTRAST CLINICAL HISTORY: stroke eval, paresthesia on the R with [facility] COMPARISON STUDY: CTA of the neck February 01, 2024. Technique: CT angiography of the carotid and vertebral arteries was obtained using Optiray and 3D reconstruction on an independent workstation. NASCET criteria was utilized. Automated exposure control was utilized for the study. A dose lowering technique was utilized adhering to the principles of ALARA. CT DOSE: 987.09 mGy.cm Findings: Visualized portions of the lung apices are unremarkable. There is no cervical lymphadenopathy. There are no cervical spine fractures. The bilateral common carotid, cervical internal carotid and vertebral arteries are patent. No stenosis, dissection or aneurysm within the neck is present. IMPRESSION: Unremarkable CTA of the neck. ACT 112: Negative or not required by law. Electronically signed by: Yang Hansen M.D. 05/08/2025 9:16 AM Brain MRI 05/08/25 11:12 MRI OF THE BRAIN WITHOUT IV CONTRAST CLINICAL HISTORY: Worsening headaches. Paresthesias. Visual disturbance. COMPARISON STUDY: MRI of the brain February 02, 2024. Head CT and CTA of the head performed earlier today. TECHNIQUE: MRI of the brain was performed utilizing various T1 and T2-weighted sequences in the axial, sagittal, and coronal planes. IV contrast was not administered for this examination. Due to claustrophobia, the study could not be completed. Diffusion-weighted and sagittal T1 sequences were obtained. FINDINGS: No foci of restricted diffusion to suggest acute infarct are present. The ventricular system is normal. The basal cisterns are patent. No extra-axial collections are identified on this exam. 7 mm focus of signal abnormality within the right cerebellar hemisphere on axial image 8 of is unchanged from earlier exams. No additional foci of parenchymal signal abnormality are identified although this exam is moderately compromised given this incomplete protocol. No acute intracranial hemorrhage is identified. IMPRESSION: No evidence for acute infarct. Exam moderately compromised given incomplete protocol, as described above. However, no significant change since previous MRI on these two pulsing sequences. ACT 112: Negative or not required by law. Electronically signed by: Yang Hansen M.D. 05/08/2025 12:[address] 05/12/25 20:21 Exam(s): CT HEAD Without Contrast EXAM: CT Head Without Intravenous Contrast CLINICAL HISTORY: Reason for exam: blurred vision. TECHNIQUE: Axial computed tomography images of the head/brain without intravenous contrast. CTDI is 36.43 mGy and DLP is 625.8 mGy-cm. Automated exposure control was utilized for the study. A dose lowering technique was utilized adhering to the principles of ALARA. COMPARISON: No relevant prior studies available. FINDINGS: Brain: Unremarkable. No hemorrhage. No significant white matter disease. No edema. Ventricles: Unremarkable. No ventriculomegaly. Bones/joints: Unremarkable. No acute fracture. Soft tissues: Unremarkable. Sinuses: Unremarkable as visualized. No acute sinusitis. Mastoid air cells: Unremarkable as visualized. No mastoid effusion. IMPRESSION: No evidence of acute intracranial pathology. Electronically signed by: Candelaria Trevino MD 05/12/25 23:55 PM Brain MRI 05/12/25 20:42 CR Exam(s): MRI HEAD W/WO Contrast IV Amt: 10cc gadavist EXAM: MR Head Without and With Intravenous Contrast CLINICAL HISTORY: Reason for exam: double vision. TECHNIQUE: Magnetic resonance images of the head/brain without and with intravenous contrast in multiple planes. CONTRAST: Patient received 10cc gadavist of IV contrast COMPARISON: No relevant prior studies available. FINDINGS: Brain: There is a tiny acute ischemic injury in the posterior right frontal lobe without evidence of hemorrhagic transformation. There is a remote ischemic injury of the right cerebellum. Mild nonspecific white matter changes. There is a tiny dural based soft tissue lesion along the left anterior falx consistent with a meningioma measuring 9.9 x 8.2 x 8.6 mm. No hemorrhage. The flow voids at the base of the brain are intact. No abnormal enhancement of the brain parenchyma. The dural venous sinuses are patent. Ventricles: Unremarkable. No ventriculomegaly. Bones/joints: Unremarkable. No acute fracture. Sinuses: Unremarkable as visualized. No acute sinusitis. Mastoid air cells: There is a small amount of fluid in the left mastoid air cells. No mastoid effusion. Orbits: Unremarkable as visualized. IMPRESSION: There is a tiny acute ischemic injury in the posterior right frontal lobe without evidence of hemorrhagic transformation. Communications: Verify Receipt Electronically signed by: Candelaria Trevino MD 05/13/25 01:20 AM Head/Brain Mag Res Venography 05/12/25 20:42 Exam(s): MRV HEAD EXAM: MR Head Without Intravenous Contrast CLINICAL HISTORY: Reason for exam: persistent headaches. TECHNIQUE: Magnetic resonance images of the head/brain without intravenous contrast in multiple planes. COMPARISON: Prior CT angiogram of the head from May 08, 2025. FINDINGS: Brain: Unremarkable. No mass. No hemorrhage. No acute infarct. Ventricles: Unremarkable. No ventriculomegaly. Bones/joints: Unremarkable. No acute fracture. Sinuses: Unremarkable as visualized. No acute sinusitis. Mastoid air cells: Unremarkable as visualized. No mastoid effusion. Orbits: Unremarkable as visualized. IMPRESSION: Negative MRV of the brain. Electronically signed by: Candelaria Trevino MD 05/13/25 01:15 AM Venous Doppler Study 05/13/25 15:46 Exam(s): US VENOUS BILATERAL LOWER EXTREMITIES EXAM: US Duplex Bilateral Lower Extremities Veins CLINICAL HISTORY: Reason for exam: stroke, hx PFO. TECHNIQUE: Real-time duplex ultrasound scan of the bilateral lower extremity veins integrating B-mode two-dimensional vascular structure, Doppler spectral analysis, color flow Doppler imaging and compression. COMPARISON: No relevant prior studies available. FINDINGS: Right deep veins: Unremarkable. No DVT in the right common femoral, femoral, proximal deep femoral or popliteal veins. The veins demonstrate normal color flow, are normally compressible, with normal phasic flow and/or augmentation response. Right superficial veins: Unremarkable. No thrombus in the visualized right great saphenous vein. Left deep veins: Unremarkable. No DVT in the left common femoral, femoral, proximal deep femoral or popliteal veins. The veins demonstrate normal color flow, are normally compressible, with normal phasic flow and/or augmentation response. Left superficial veins: Unremarkable. No thrombus in the visualized left great saphenous vein. Soft tissues: Extensive diffuse soft tissue edema bilaterally. No popliteal cyst. IMPRESSION: No evidence of DVT in the lower extremities. Electronically signed by: Bryon Rivas MD 05/13/25 23:10 PM Brain MRI 05/14/25 12:45 MRI OF THE BRAIN WITHOUT IV CONTRAST CLINICAL HISTORY: Worsening dizziness and double vision. COMPARISON STUDY: 05/12/2025 TECHNIQUE: MRI of the brain was performed utilizing various T1 and T2-weighted sequences in the axial, sagittal, and coronal planes. IV contrast was not administered for this examination. FINDINGS: There is a persistent 3 mm focus of restricted water diffusion within the right posterior frontal lobe. This is consistent with a tiny subacute infarct. No new areas of infarction are visualized. The ventricular system has a normal size and configuration. There is no midline shift. There is a persistent 6 mm focus of increased T2 signal within the right cerebellar hemisphere consistent with remote insult. Gradient echo images reveal no evidence of hemorrhage. There is an 8 mm dural based opacity within the left anterior frontal region, likely representing a meningioma. This has been described on prior studies. IMPRESSION: 1. No significant change from the preceding study 2. Persistent 3 mm focus of restricted water diffusion within the right posterior frontal lobe likely representing a tiny subacute infarct 3. Stable 8 mm extra-axial left frontal anterior parafalcine lesion likely representing a meningioma ACT 112: Negative or not required by law. Electronically signed by: Amish Orantes M.D. 05/14/2025 2:22 PM
[2025-05-17] MEDS: SODIUM CHLORIDE 0.9% 1,000 ML IV SCH (14:08)
[2025-05-17] MEDS: VALPROATE SOD 500 MG in DEXTROSE 5% 50 ML IV ONE (14:08)
[2025-05-18 06:27] LABS: Hematocrit (blood only) 33.9 % (37.0-47.0); Hemoglobin 10.8 g/dl (12.0-16.0); Mean Corpuscular Hemoglobin 29.6 pg (25.0-34.0); Mean Corpuscular Volume 92.9 fL (80.0-100.0); Platelet Count 179 K/uL (130-400); RDW Standard Deviation 46.2 fL (36.4-46.3); Red Blood Count 3.65 M/uL (4.20-5.40); White Blood Count 6.81 K/ul (4.8-10.8)
[2025-05-18 06:47] LABS: Anion Gap 2.0 (3-11); Blood Urea Nitrogen 17.0 mg/dl (6-23); Calcium 8.2 mg/dl (8.6-10.3); Carbon Dioxide 29.0 mmol/L (21-32); Chloride 107.0 mmol/L (98-107); Creatinine Clr Calc Pharmacy 75.3 ml/min; Glucose 82.0 mg/dl (70-99(Fasting)); Potassium 4.7 mmol/L (3.5-5.1); Sodium 138.0 mmol/L (136-145)
[2025-05-18 07:37] VITALS: RESP 18
--- NOTE | 2025-05-18 10:44 | Discharge Summary ---
Discharge Summary Date of Service May 18, 2025 Principal Dx & Hospital Course #1 = Principal Diagnosis (1) Migraine: (2) DM II (diabetes mellitus, type II), controlled: (3) (HFpEF) heart failure with preserved ejection fraction: (4) Dyslipidemia: (5) Nocturnal hypoxia: (6) GERD (gastroesophageal reflux disease): (7) Depression: (8) Hypothyroidism: (9) PFO (patent foramen ovale): (10) History of pulmonary embolism: (11) History of gastric bypass: Plan This is a 60 year old female with PMH significant for type 2 diabetes, hypothyroidism, hyperlipidemia, asthma, heart failure, GERD, psoriatic arthropathy, left hemiplegia, iron deficiency anemia, depression and anxiety, history of gastric bypass (2008), history of PE, history of C diff, and chronic migraines who presented to the ED on 05/08/2025 with unilateral headache and associated paresthesia and blurry vision that she felt is different than typical migraine and was admitted for stroke rule out. Neurology was consulted. Numerous medications were trialed to break her migraine including IV valproic acid, steroids, IVF, magnesium without major improvement. Her emgality was delivered and she took three days ago. this will take up to a week for full effect. Her Migraine is still present but much improved from admission. she has longstanding blurry vision, RUE and RLE weakness with her migraines. She was advised to f/u with neurology and might be a candidate for botox injections Her hospitalization was c/b acute ischemic stroke. on 05/12, she developed her typical R sided symptoms associated with her migraine. MRI brain was done which showed tiny acute ischemic injury in the posterior right frontal lobe without evidence of hemorrhagic transformation. She has a known PFO due for closure. cardio was consulted. neuro and cardio did not recommend urgent closure of PFO. she has no deficits from this small stroke and was essentially an incidental finding. DAPT x 21 days. she will f/u with neuro as OP. She is feeling better today. vitals and labs are stable. she is for DC to SNF if auth is obtained. She is agreeable for SNF. See below for full hospital problem list Worsening of Chronic migraine Typical migraine is right sided and associated with blurry vision, photophobia, right arm/leg weakness/numbness, N/V Follows with Pam Everett PA-C of [facility] Neurology last seen in March 2025 Prior medications include amitriptyline, Topamax, Ajovy, trigger point injections Started on Emgality in September 2024 which improved migraines significantly Started Depakote taper in March where she went from 750mg HS to 125mg HS Planned to stop magnesium and propranolol after completion of Depakote taper Patient reports this is the worst migraine she has ever experienced, possibly due to tapering of Depakote outpatient Stroke work up completed with negative CT head, CTA head and neck, MRI brain Neurology consulted and recommend: Depakote 500mg IV x1 Continue magnesium and propanolol Can give Emgality --> non-formulary. Brought from home and given evening of 05/14 S/p tapering dose of prednisone (completed 05/13) S/p increased Depakote to 500mg BID while on steroids -> resume home dose of 125mg HS Sleep, rest, IV hydration Gabapentin 300mg was added and increased to TID On low dose morphine PRN Will d/c PRN sumatriptan given tiny acute stroke noted on MRI Acute CVA Hx PFO 05/12 - developed worsening double vision Head CT/MRV/MRI obtained overnight. MRI showing tiny acute ischemic injury in the posterior right frontal lobe. On ASA and statin, Plavix added Neck CTA on 05/08 unremarkable Echo: EF 55-60%, grade I diastolic dysfunction Telemetry reviewed, no afib noted or reported History of TIA December 2023 and found to have PFO and is to undergo closure on 06/05/25. Was evaluated by hematology as o/p for weakly positive IgM cardiolipin antibody which not felt to be significant and ASA was recommended. 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 with party demonstrator, no anticoagulation given risk of hemorrhagic conversion Repeat brain MRI obtained today due to ambulatory issues - negative for new/worsening infarct Type 2 diabetes On Ozempic at home A1C 5.8% BSG ACHS and SSI while inpatient HFpEF Patient appears euvolemic Lasix 20mg PO x 1 today per cardio Monitor I&Os Dyslipidemia Continue statin GERD Continue pantoprazole, pepcid, and carafate Depression Continue duloxetine, buspirone, and trazodone Hypothyroidism Continue levothyroxine Nocturnal hypoxia Per nocturnal oximetry in January 2025 Prescribed 2-3L O2 at night however patient states she uses 2L continuous History of PE s/p anti-coagulation x6 months History of gastric bypass [facility] Continue vitamin supplementation DVT PROPHYLAXIS: SCDs Dispo: Denied [facility] and planned for patient home with services today but still requiring help on ambulation. Patient lives with daughter who has MS and does not feel she is too weak to return home today. PT/OT re-evaluated - recommending rehab. Appreciate CM help with SNF search. I spent a total of 46 minutes coordinating, documenting, and providing care for this patient excluding time spent in the performance of separately billed services. This included personally reviewing all current laboratories and imaging studies, medical reconciliation, outpatient chart review and discussion with specialists Notes For Next Care Provider Medication Changes From Visit DAPT x 21 days, then continue home ASA Imitrex DC Admission HPI Per Admitting Provider Patient is a 60 year old female with past medical history of PFO, prior DVT/PE no longer on a/c, heart failure, migraines, hypertension, hyperlipidemia, DM2, left-sided hemiplegia, hypothyroidism, prior gastric bypass, iron deficiency anemia and sleep apnea presenting with TIA symptoms. Patient reported to have a unilateral, right-side headache last night prior to going to bed and awoke with worsening symptoms, including paresthesia to right upper/lower extremities. Blurry vision to the right eye without double vision or report of seeing black curtain; although blurry vision does occur with migraine onset, patient feels this is different than typical pattern. This morning she was short of breath with ambulation to the bathroom, and had substernal chest lasting 5-10 minutes, both symptoms self-resolved with intermittent return at rest. She is not short of breath now, but does have chest pain intermittently to substernal region and under her right breast. Denies fever, chills, weight loss, weakness, cognitive changes, hearing changes, swelling, difficulty breathing, urinary concerns, V/D, joint swelling/pain, a mbulation difficulty, skin rashes, lesions, bleeding, bruising. In the emergency department, patient was hemodynamically stable with no signs of infection, sepsis and stable labs. Trop 4.4. EKG showing NSR with vent rate 76 bpm, QTc 416. Chest Xray showed cardiomegaly with no acute cardiopulmonary abnormality identified. pulmonary vasculature is non-congested. CT Head w/o contrast showing no hemorrhage, mass effect, or evidence of acute territorial ischemia by CT criteria Head/Neck CTA Unremarkable CTA of the head. Acetaminophen, Dexamethasone, Zofran, Prochlorperazine given in ED for headache management. Patient was last admitted to [facility] for atypical chest pain from 02/03/25- 02/07/2025. Dobutamine Stress test normal. LVEF 55-60%. No stress-induced wall motion abnormality. PFO surgery scheduled 06/05/25 . As per external chart review, patient follows [facility] and last seen on 04/02/2025. Per Neurology note, Typical migraine is right-sided and can be associated with right arm and leg weakness and numbness, nausea, vomiting, and photo/phonophobia. She is currently on propranolol and Depakote. Experiencing migraine once weekly which can last up to 2 days. Emgality resulted in near complete resolution of migraines in the past. Medications tried and failed include Topamax, amitriptyline and trigger point injections. Migraine management with Depakote, emgality and triptan as needed. Reportedly, patients headaches have worsened since the passing of her late in January. She now wears oxygen at nighttime with improvement in headaches, although she has no definite diagnosis of DARLING. Endorses excessive daytime sleepiness. History obtained primarily from the patient and via hospitalization record. External chart review obtained from [facility]. Updated Medication List Medication Instructions Recorded Confirmed Type aspirin 81 mg tablet,delayed 81 mg PO QAM 02/02/24 05/08/25 History release atorvastatin 40 mg tablet 40 mg PO HS 02/02/24 05/08/25 History cholecalciferol (vitamin D3) 50 50 mcg PO QAM 02/02/24 05/08/25 History mcg (2,000 unit) tablet (Vitamin D3) dicyclomine 10 mg capsule 10 mg PO QAM 02/02/24 05/08/25 History duloxetine 60 mg capsule,delayed 60 mg PO QAM 02/02/24 05/08/25 History release galcanezumab-gnlm 120 mg/mL 120 mg subcut MONTHLY 02/02/24 05/08/25 History subcutaneous pen injector (Emgality Pen) levothyroxine 25 mcg tablet 25 mcg PO DAILYBB 02/02/24 05/08/25 History magnesium oxide 400 mg PO QAM 02/02/24 05/08/25 History pantoprazole 40 mg tablet,delayed 40 mg PO BID 02/02/24 05/08/25 History release propranolol 60 mg capsule,24 60 mg PO QAM 02/02/24 05/08/25 History hr,extended release montelukast 10 mg tablet 10 mg PO QAM 03/31/24 05/08/25 History (Singulair) acetaminophen 325 mg tablet 650 mg PO Q4H PRN PAIN/FEVER>100.5F 02/02/25 05/08/25 History (Tylenol) albuterol sulfate 90 mcg/actuation 2 puff inhalation Q4H PRN Cough 02/02/25 05/08/25 History aerosol inhaler calcium 325 mg-vit D3 12.5 1 tab PO DAILY 02/02/25 05/08/25 History mcg-zinc 2.75 [id number]-[id number] tablet (Citracal-D3 Maximum Plus) cyanocobalamin (vitamin B-12) 1,000 mcg IM .[id number] 02/02/25 05/08/25 History 1,000 mcg/mL injection solution divalproex 250 mg tablet,extended 125 mg PO HS 02/02/25 05/08/25 History release 24 hr (Depakote ER) ferrous sulfate 325 mg (65 mg 325 mg PO DAILY 02/02/25 05/08/25 History iron) tablet folic acid 1 mg tablet 1 mg PO DAILY 02/02/25 05/08/25 History ipratropium 0.5 mg-albuterol 3 mg 3 ml inhalation QID PRN sob 02/02/25 05/08/25 History (2.5 mg base)/3 mL nebulization soln methotrexate sodium 25 mg/mL 20 mg subcut WK 02/02/25 05/08/25 History injection solution multivitamin 1 tab PO DAILY 02/02/25 05/08/25 History semaglutide 1 mg/dose (4 mg/3 mL) 1 mg subcut WK 02/02/25 05/08/25 History subcutaneous pen injector (Ozempic) sumatriptan succinate 50 mg tablet 50 mg PO DIRECTED PRN Migraine 02/02/25 05/08/25 History (Imitrex) Headache trazodone 100 mg tablet 300 mg PO HS 02/03/25 05/08/25 History buspirone 7.5 mg tablet 7.5 mg PO TID #90 tabs 02/07/25 05/08/25 Rx famotidine 20 mg tablet 20 mg PO BID acid reflux 05/08/25 05/08/25 History promethazine 25 mg tablet 25 mg PO DAILY PRN Nausea 05/08/25 05/08/25 History gabapentin 300 mg capsule 300 mg PO TID 1 month #45 caps 05/16/25 Rx Hospital Stay Data Consultations 05/08/25 10:13 ED Decision to Admit Stat 05/08/25 15:12 Consult Neurology Routine 05/13/25 08:00 Consult Neurology Routine 05/13/25 16:03 Consult Cardiology Routine 05/14/25 11:18 Consult Hematology Routine Diagnostic Imagining Performed 05/08/25 07:46 CT head/brain wo con Stat CTA head w con [CT angio head w con] Stat CTA neck with con [CT angio neck with con] Stat 05/08/25 11:12 MRI Brain [MR brain wo con] Urgent 05/12/25 20:21 CT head/brain wo con Urgent 05/12/25 20:42 MRI Brain [MR brain wo/w con] Urgent MRI venography head [MR venography head wo con] Urgent 05/13/25 15:46 US venous doppler LE BI Routine 05/14/25 12:45 MRI Brain [MR brain wo con] Urgent Pending Results Patient Have Any Pending Studies at Discharge: Yes (antiphospholipid panel ) Discharge Instructions Given to Patient (Per Discharging Provider) MEDICATION CHANGES: NEW: Continue Plavix once a day for total of 21 days, next dose tomorrow morning Continue gabapentin 300mg three times a day for complex migraine STOP: Imitrex discontinued in setting of small stroke CONTINUE: All other medications as previously taking at home. *Very important to continue taking aspirin and atorvastatin daily given recent stroke* PENDING TEST RESULTS: Antiphosholipid panel pending RECOMMENDATIONS FOR FOLLOW-UP: Follow up with PCP as scheduled next week. Follow up with neurology as scheduled on 06/23 for migraine care. Follow up with Dr. John of hematology to discuss antiphospholipid panel results and further recommendations. Outpatient [employer] heart monitor will be arranged for you to wear for 14 days. Please follow up with primary hydraulic riveter. PFO closure surgery still scheduled for 06/05 at [facility]. OTHER INSTRUCTIONS: Seek medical attention if you have: * temperature above 101 * chest pain or trouble breathing * abdominal pain, nausea, vomiting * diarrhea, dark stools or bloody stools * any unanswered questions or concerns Call 911 if symptoms are severe. Please take good care of yourself. Call if you have any questions or problems. You can reach a [facility] hospitalist on duty at [facility] 24 hours a day by calling [phone]. Total Time Total Time Spent Total Time Spent (In Minutes): 46
[2025-05-18 11:20] VITALS: TEMP 97.7; O2SAT 93
[2025-05-18 14:52] VITALS: BP 108/69; PULSE 72
[2025-05-19 01:02] LABS: Phosphatidylser Prothrom IgG <9 U (<=30); Phosphatidylserine ProthromIgM <9 U (<=30)
== END 2025-05-18 15:21 | disposition home health service (06) | DRG 65 ==
LOC: EDINP 07:38 → ED 07:38 → SUATTDRO 11:11 → 4W 15:08 → SUATTDRO 05-09 12:22